=== PATIENT | female | born 1965 | race American Indian/Alaskan Native ===

== ENCOUNTER 2021-01-17 15:25 | Inpatient (IN) | payer MEDICAID ==
--- NOTE | 2021-01-17 16:41 | Event Note ---
ED Screening Note Date of service: 01/17/21 Time: 16:40 ED Screening Note: Patient complains of shortness of breath and cough Denies chest pain or leg pain/swelling No past medical history per patient Oxygen noted to be in the 70s on room air with the heart rate of 125 This initial assessment/diagnostic orders/clinical plan/treatment(s) is/are subject to change based on patients health status, clinical progression and re- assessment by fellow clinical providers in the ED. Further treatment and workup at subsequent clinical providers discretion. Patient/guardian urged not to elope from the ED as their condition may be serious if not clinically assessed and managed. Initial orders include: Labs EKG Chest x-ray Lactic acid
[2021-01-17 17:05] LABS: Basophils % (Auto) 0.2 % (0.0-1.8); Hematocrit 39.5 % (30.3-42.9); Hemoglobin 12.4 gm/dl (10.1-14.3); Lymphocytes # (Auto) 0.8 K/mm3 (1.2-5.4); Lymphocytes % (Auto) 9.4 % (13.4-35.0); Mean Corpuscular HGB Conc 31 % (30-34); Mean Corpuscular Volume 76 fl (79-97); Monocytes # (Auto) 0.4 K/mm3 (0.0-0.8); Platelet Count 224 K/mm3 (140-440); Red Blood Count 5.23 M/mm3 (3.65-5.03); Red Cell Distribution Width 14.7 % (13.2-15.2)
--- NOTE | 2021-01-17 17:05 | XRay Report ---
CHEST 2 VIEWS INDICATION / CLINICAL INFORMATION: hypoxia, cough. COMPARISON: None available. FINDINGS: SUPPORT DEVICES: None. HEART / MEDIASTINUM: No significant abnormality. LUNGS / PLEURA: Patchy airspace disease in both lower lungs No pneumothorax. ADDITIONAL FINDINGS: No significant additional findings. IMPRESSION: Patchy airspace disease in both lower lungs Signer Name: Oliverio Moody MD FACR Signed: 01/17/2021 5:00 PM Workstation Name: [id number]
[2021-01-17 17:19] LABS: Alanine Aminotransferase 51 units/L (7-56); Albumin 3.2 g/dL (3.9-5); Blood Urea Nitrogen 13 mg/dL (7-17); Calcium 8.6 mg/dL (8.4-10.2); Hemolysis Index 0
[2021-01-17 17:21] LABS: BUN/Creatinine Ratio 19
[2021-01-17 18:47] LABS: C-Reactive Protein 19.2 mg/dL (0.00-1.30)
[2021-01-17] MEDS ORDERED: AZITHROMYCIN/NS 500 MG/250 ML 500 MG/250 ML BAG IV ONE (22:49)
[2021-01-17] MEDS ORDERED: cefTRIAXone/NS 1 GM/50 ML 1 GM/50 ML BAG IV ONE (22:49)
--- NOTE | 2021-01-17 23:32 | Emergency Department Report ---
ED General Adult HPI - General Chief complaint: Altered Mental Status Stated complaint: HYPERGLYCEMIA Time Seen by Provider: 01/17/21 16:38 Source: patient, family Mode of arrival: Ambulatory Limitations: No Limitations - History of Present Illness Initial comments: Patient presents to the emergency department with a chief complaint of cough and not feeling well for the last couple of days. Patient states that her brother is positive for Covid. Patient complains of having a dry cough and a fever at home. She denies any chest pain. Patient states she has not felt like herself the last 3 days. -: Gradual Severity scale (0 -10): 0 Consistency: constant Improves with: none Worsens with: none Associated Symptoms: denies other symptoms Treatments Prior to Arrival: none - Related Data Allergies Allergy/AdvReac Type Severity Reaction Status Date / Time No Known Allergies Allergy Unverified 01/17/21 16:41 ED Review of Systems ROS: Stated complaint: HYPERGLYCEMIA Other details as noted in HPI Constitutional: denies: chills, fever Eyes: denies: eye pain, eye discharge, vision change ENT: denies: ear pain, throat pain Respiratory: cough, shortness of breath. denies: wheezing Cardiovascular: denies: chest pain, palpitations Endocrine: no symptoms reported Gastrointestinal: denies: abdominal pain, nausea, diarrhea Genitourinary: denies: urgency, dysuria, discharge Musculoskeletal: denies: back pain, joint swelling, arthralgia Skin: denies: rash, lesions Neurological: denies: headache, weakness, paresthesias Psychiatric: denies: anxiety, depression Hematological/Lymphatic: denies: easy bleeding, easy bruising ED Past Medical Hx - Past Medical History Previous Medical History?: Yes Hx Psychiatric Treatment: Yes (Schizophrenia) ED Physical Exam - General Limitations: No Limitations General appearance: alert, in no apparent distress - Head Head exam: Present: atraumatic, normocephalic - Eye Eye exam: Present: normal appearance - ENT ENT exam: Present: mucous membranes moist - Neck Neck exam: Present: normal inspection - Respiratory Respiratory exam: Present: normal lung sounds bilaterally, rales. Absent: respiratory distress - Cardiovascular Cardiovascular Exam: Present: normal rhythm, tachycardia. Absent: systolic murmur, diastolic murmur, rubs, gallop - GI/Abdominal GI/Abdominal exam: Present: soft, normal bowel sounds - Extremities Exam Extremities exam: Present: normal inspection - Back Exam Back exam: Present: normal inspection - Neurological Exam Neurological exam: Present: alert, oriented X3 - Psychiatric Psychiatric exam: Present: normal affect, normal mood - Skin Skin exam: Present: warm, dry, intact, normal color. Absent: rash ED Course Vital Signs 01/17/21 01/17/21 01/17/21 16:42 18:45 19:02 Temperature 100.6 F H Pulse Rate 122 H 122 H 122 H Respiratory 16 16 16 Rate Blood Pressure O2 Sat by Pulse 74 L 75 L 93 Oximetry 01/17/21 01/17/21 01/17/21 20:00 20:16 20:30 Temperature Pulse Rate 122 H 115 H 114 H Respiratory 26 H 36 H 30 H Rate Blood Pressure 143/80 151/85 O2 Sat by Pulse 76 L 93 93 Oximetry 01/17/21 01/17/21 01/17/21 20:32 20:46 21:00 Temperature Pulse Rate 114 H 111 H Respiratory 35 H 29 H Rate Blood Pressure 167/77 145/83 O2 Sat by Pulse 95 93 95 Oximetry 01/17/21 01/17/21 01/17/21 21:15 21:30 21:46 Temperature Pulse Rate 115 H 114 H 116 H Respiratory 36 H 32 H 30 H Rate Blood Pressure 158/87 149/84 148/82 O2 Sat by Pulse 93 93 Oximetry 01/17/21 01/17/21 01/17/21 22:00 22:16 22:30 Temperature Pulse Rate 122 H 115 H 115 H Respiratory 19 31 H 34 H Rate Blood Pressure 148/82 138/78 142/71 O2 Sat by Pulse 91 91 94 Oximetry 01/17/21 22:56 Temperature Pulse Rate Respiratory Rate Blood Pressure 130/71 O2 Sat by Pulse 94 Oximetry ED Medical Decision Making - Lab Data Result diagrams: 01/17/21 16:41 01/17/21 17:46 Lab Results 01/17/21 01/17/21 01/17/21 Range/Units 16:41 16:41 16:41 WBC 8.9 (4.5-11.0) K/mm3 RBC 5.23 H (3.65-5.03) M/mm3 Hgb 12.4 (10.1-14.3) gm/dl Hct 39.5 (30.3-42.9) % MCV 76 L (79-97) fl MCH 24 L (28-32) pg MCHC 31 (30-34) % RDW 14.7 (13.2-15.2) % Plt Count 224 (140-440) K/mm3 Lymph % (Auto) 9.4 L (13.4-35.0) % [place] % (Auto) 5.0 (0.0-7.3) % Eos % (Auto) 0.0 (0.0-4.3) % Baso % (Auto) 0.2 (0.0-1.8) % Lymph # (Auto) 0.8 L (1.2-5.4) K/mm3 [place] # (Auto) 0.4 (0.0-0.8) K/mm3 Eos # (Auto) 0.0 (0.0-0.4) K/mm3 Baso # (Auto) 0.0 (0.0-0.1) K/mm3 Seg Neutrophils % 85.4 H (40.0-70.0) % Seg Neutrophils # 7.6 (1.8-7.7) K/mm3 D-Dimer (0-234) ng/mlDDU Sodium 128 L (137-145) mmol/L Potassium 4.1 (3.6-5.0) mmol/L Chloride 90.8 L (98-107) mmol/L Carbon Dioxide 25 (22-30) mmol/L Anion Gap 16 mmol/L BUN 13 (7-17) mg/dL Creatinine 0.7 (0.6-1.2) mg/dL Estimated GFR > 60 ml/min BUN/Creatinine Ratio 19 % Glucose 372 H (65-100) mg/dL Lactic Acid 1.70 (0.7-2.0) mmol/L Calcium 8.6 (8.4-10.2) mg/dL Ferritin (10.0-200.0) ng/mL Total Bilirubin 0.30 (0.1-1.2) mg/dL AST 98 H (5-40) units/L ALT 51 (7-56) units/L Alkaline Phosphatase 82 (35-129) units/L Lactate Dehydrogenase (91-180) units/L Troponin T < 0.010 (0.00-0.029) ng/mL C-Reactive Protein (0.00-1.30) mg/dL NT-Pro-B Natriuret Pep 40.88 (0-900) pg/mL Total Protein 7.9 (6.3-8.2) g/dL Albumin 3.2 L (3.9-5) g/dL Albumin/Globulin Ratio 0.7 % 01/17/21 01/17/21 01/17/21 Range/Units 17:46 17:46 17:46 WBC (4.5-11.0) K/mm3 RBC (3.65-5.03) M/mm3 Hgb (10.1-14.3) gm/dl Hct (30.3-42.9) % MCV (79-97) fl MCH (28-32) pg MCHC (30-34) % RDW (13.2-15.2) % Plt Count (140-440) K/mm3 Lymph % (Auto) (13.4-35.0) % [place] % (Auto) (0.0-7.3) % Eos % (Auto) (0.0-4.3) % Baso % (Auto) (0.0-1.8) % Lymph # (Auto) (1.2-5.4) K/mm3 [place] # (Auto) (0.0-0.8) K/mm3 Eos # (Auto) (0.0-0.4) K/mm3 Baso # (Auto) (0.0-0.1) K/mm3 Seg Neutrophils % (40.0-70.0) % Seg Neutrophils # (1.8-7.7) K/mm3 D-Dimer 1058.54 H (0-234) ng/mlDDU Sodium (137-145) mmol/L Potassium (3.6-5.0) mmol/L Chloride (98-107) mmol/L Carbon Dioxide (22-30) mmol/L Anion Gap mmol/L BUN (7-17) mg/dL Creatinine (0.6-1.2) mg/dL Estimated GFR ml/min BUN/Creatinine Ratio % Glucose 369 H (65-100) mg/dL Lactic Acid (0.7-2.0) mmol/L Calcium (8.4-10.2) mg/dL Ferritin 668.4 H (10.0-200.0) ng/mL Total Bilirubin (0.1-1.2) mg/dL AST (5-40) units/L ALT (7-56) units/L Alkaline Phosphatase (35-129) units/L Lactate Dehydrogenase 519 H (91-180) units/L Troponin T (0.00-0.029) ng/mL C-Reactive Protein 19.20 H (0.00-1.30) mg/dL NT-Pro-B Natriuret Pep (0-900) pg/mL Total Protein (6.3-8.2) g/dL Albumin (3.9-5) g/dL Albumin/Globulin Ratio % - EKG Data -: EKG Interpreted by Me EKG shows normal: sinus rhythm Rate: tachycardia - Radiology Data Radiology results: report reviewed - Medical Decision Making Patient was switched from nonrebreather mask to high flow O2 IV antibiotics given CTA of the chest with order for evaluation of pulmonary emboli Patient was taken to CT suite and upon arrival she refused to have the CTA of the chest done Critical Care Time: Yes Critical care time in (mins) excluding proc time.: 35 Critical care attestation.: If time is entered above; I have spent that time in minutes in the direct care of this critically ill patient, excluding procedure time. ED Disposition Clinical Impression: Pneumonia, Respiratory failure, Hypoxia Disposition: 09 OP ADMIT IP TO THIS HOSP Is pt being admited?: Yes Does the pt Need Aspirin: Yes Condition: Fair Instructions: Bacterial Pneumonia (ED) Referrals: FEDERICO VILLALTA,BRANDON [Other] - 3-5 Days
[2021-01-18] MEDS ORDERED: ONDANSETRON 4 MG/2 ML INJ IV PRN (00:36)
--- NOTE | 2021-01-18 00:44 | History and Physical Report ---
History of Present Illness Date of examination: 01/18/21 Date of admission: 01/18/2021 Chief complaint: Altered mental status Hyperglycemia Fever cough History of present illness: 55 years old female was brought to the emergency room because of shortness of breath, cough and not feeling well for the last couple of days. Patient states that her brother is positive for Covid. Patient complains of having a dry cough and a fever at home. She denies any chest pain. Patient states she has not felt like herself the last 3 days. In the emergency room patient chest x-ray shows pneumonia Past History Past Medical History: other (Schizophrenia) Medications and Allergies Allergies Allergy/AdvReac Type Severity Reaction Status Date / Time No Known Allergies Allergy Unverified 01/17/21 16:41 Review of Systems Constitutional: fever Cardiovascular: shortness of breath Respiratory: cough, shortness of breath Exam - Constitutional Vitals: Temp Pulse Resp BP Pulse Ox 100.6 F H 115 H 34 H 130/71 94 01/17/21 16:42 01/17/21 22:30 01/17/21 22:30 01/17/21 22:56 01/17/21 22:56 General appearance: Present: mild distress, well-nourished - EENT Eyes: Present: PERRL ENT: hearing intact, clear oral mucosa - Neck Neck: Present: supple, normal ROM - Respiratory Respiratory effort: normal Respiratory: bilateral: diminished - Cardiovascular Heart Sounds: Present: S1 & S2. Absent: rub, click - Extremities Extremities: pulses symmetrical, No edema Peripheral Pulses: within normal limits - Abdominal General gastrointestinal: Present: soft, non-tender, non-distended, normal bowel sounds Female genitourinary: Present: normal - Integumentary Integumentary: Present: clear, warm, dry - Musculoskeletal Musculoskeletal: gait normal, strength equal bilaterally - Psychiatric Psychiatric: appropriate mood/affect, intact judgment & insight - Neurologic Neurologic: CNII-XII intact, moves all extremities HEART Score - HEART Score Troponin: Troponin T < 0.010 ng/mL (0.00-0.029) 01/17/21 16:41 Results - Labs CBC & Chem 7: 01/17/21 16:41 01/17/21 17:46 Labs: Laboratory Last Values WBC 8.9 K/mm3 (4.5-11.0) 01/17/21 16:41 RBC 5.23 M/mm3 (3.65-5.03) H 01/17/21 16:41 Hgb 12.4 gm/dl (10.1-14.3) 01/17/21 16:41 Hct 39.5 % (30.3-42.9) 01/17/21 16:41 MCV 76 fl (79-97) L 01/17/21 16:41 MCH 24 pg (28-32) L 01/17/21 16:41 MCHC 31 % (30-34) 01/17/21 16:41 RDW 14.7 % (13.2-15.2) 01/17/21 16:41 Plt Count 224 K/mm3 (140-440) 01/17/21 16:41 Lymph % (Auto) 9.4 % (13.4-35.0) L 01/17/21 16:41 [place] % (Auto) 5.0 % (0.0-7.3) 01/17/21 16:41 Eos % (Auto) 0.0 % (0.0-4.3) 01/17/21 16:41 Baso % (Auto) 0.2 % (0.0-1.8) 01/17/21 16:41 Lymph # (Auto) 0.8 K/mm3 (1.2-5.4) L 01/17/21 16:41 [place] # (Auto) 0.4 K/mm3 (0.0-0.8) 01/17/21 16:41 Eos # (Auto) 0.0 K/mm3 (0.0-0.4) 01/17/21 16:41 Baso # (Auto) 0.0 K/mm3 (0.0-0.1) 01/17/21 16:41 Seg Neutrophils % 85.4 % (40.0-70.0) H 01/17/21 16:41 Seg Neutrophils # 7.6 K/mm3 (1.8-7.7) 01/17/21 16:41 D-Dimer 1058.54 ng/mlDDU (0-234) H 01/17/21 17:46 Sodium 128 mmol/L (137-145) L 01/17/21 16:41 Potassium 4.1 mmol/L (3.6-5.0) 01/17/21 16:41 Chloride 90.8 mmol/L (98-107) L 01/17/21 16:41 Carbon Dioxide 25 mmol/L (22-30) 01/17/21 16:41 Anion Gap 16 mmol/L 01/17/21 16:41 BUN 13 mg/dL (7-17) 01/17/21 16:41 Creatinine 0.7 mg/dL (0.6-1.2) 01/17/21 16:41 Estimated GFR > 60 ml/min 01/17/21 16:41 BUN/Creatinine Ratio 19 % 01/17/21 16:41 Glucose 369 mg/dL (65-100) H 01/17/21 17:46 Lactic Acid 1.70 mmol/L (0.7-2.0) 01/17/21 16:41 Calcium 8.6 mg/dL (8.4-10.2) 01/17/21 16:41 Ferritin 668.4 ng/mL (10.0-200.0) H 01/17/21 17:46 Total Bilirubin 0.30 mg/dL (0.1-1.2) 01/17/21 16:41 AST 98 units/L (5-40) H 01/17/21 16:41 ALT 51 units/L (7-56) 01/17/21 16:41 Alkaline Phosphatase 82 units/L (35-129) 01/17/21 16:41 Lactate Dehydrogenase 519 units/L (91-180) H 01/17/21 17:46 Troponin T < 0.010 ng/mL (0.00-0.029) 01/17/21 16:41 C-Reactive Protein 19.20 mg/dL (0.00-1.30) H 01/17/21 17:46 NT-Pro-B Natriuret Pep 40.88 pg/mL (0-900) 01/17/21 16:41 Total Protein 7.9 g/dL (6.3-8.2) 01/17/21 16:41 Albumin 3.2 g/dL (3.9-5) L 01/17/21 16:41 Albumin/Globulin Ratio 0.7 % 01/17/21 16:41 Microbiology: Microbiology 01/17/21 16:41 Peripheral/Venous Blood Culture - Preliminary Culture in Progress 01/17/21 16:47 Peripheral/Venous Blood Culture - Preliminary Culture in Progress - Imaging and Cardiology Chest x-ray: image reviewed Assessment and Plan VTE prophylaxis?: Chemical Plan of care discussed with patient/family: Yes - Patient Problems (1) Pneumonia Current Visit: Yes Status: Acute Plan to address problem: Admit the patient to the medical telemetry. Oxygen per nasal cannula 3 L/min. DuoNeb by nebulizer every 4 hours as needed. Rocephin 2 g IV daily and Zithromax 500 IV daily. Decadron 6 mg IV daily. We do the blood culture and sputum culture. We also consult infectious disease for evaluation. Recheck CBC BMP in the morning (2) COVID-19 Current Visit: Yes Status: Acute Plan to address problem: Rocephin 2 g IV daily and Zithromax 500 IV daily. Decadron 6 mg IV daily. Follow the Covid PCR and Covid inflammatory marker. We also consult infectious disease for evaluation (3) Hypoxia Current Visit: Yes Status: Acute Plan to address problem: Oxygen per nasal cannula 3 L/min. DuoNeb by nebulizer every 4 hours as needed. Decadron 6 mg IV daily. We do the blood cultures sputum culture. (4) Respiratory failure Current Visit: Yes Status: Acute Plan to address problem: Oxygen per nasal cannula 3 L/min. DuoNeb by nebulizer every 4 hours as needed. Rocephin 2 g IV daily and Zithromax 500 IV daily. Decadron 6 mg IV daily. We do the blood culture and sputum culture. Consult pulmonary if needed in the morning (5) Schizophrenia Current Visit: Yes Status: Acute Plan to address problem: Is stable. Outpatient follow-up with psych (6) DVT prophylaxis Current Visit: Yes Status: Acute Plan to address problem: Heparin 5000 units subcu every 8 hours. Pepcid 20 mg p.o. twice daily. Patient is a full code
[2021-01-18] MEDS: IPRATROPIUM/ALBUTEROL SULFATE 3 ML AMPUL.NEB IH SCH ×4 (03:40→20:26)
--- NOTE | 2021-01-18 08:58 | Progress Note ---
Assessment and Plan Assessment and plan: (1) Pneumonia Current Visit: Yes Status: Acute Plan to address problem: Admit the patient to the medical telemetry. Oxygen per nasal cannula 3 L/min. DuoNeb by nebulizer every 4 hours as needed. Rocephin 2 g IV daily and Zithromax 500 IV daily. Decadron 6 mg IV daily. We do the blood culture and sputum culture. We also consult infectious disease for evaluation. Recheck CBC BMP in the morning (2) COVID-19 Current Visit: Yes Status: Acute Plan to address problem: Rocephin 2 g IV daily and Zithromax 500 IV daily. Decadron 6 mg IV daily. Follow the Covid PCR and Covid inflammatory marker. We also consult infectious disease for evaluation (3) Hypoxia Current Visit: Yes Status: Acute Plan to address problem: Oxygen per nasal cannula 3 L/min. DuoNeb by nebulizer every 4 hours as needed. Decadron 6 mg IV daily. We do the blood cultures sputum culture. (4) Respiratory failure Current Visit: Yes Status: Acute Plan to address problem: Oxygen per nasal cannula 3 L/min. DuoNeb by nebulizer every 4 hours as needed. Rocephin 2 g IV daily and Zithromax 500 IV daily. Decadron 6 mg IV daily. We do the blood culture and sputum culture. Consult pulmonary if needed in the morning (5) Schizophrenia Current Visit: Yes Status: Acute Plan to address problem: Is stable. Outpatient follow-up with psych (6) DVT prophylaxis Current Visit: Yes Status: Acute Plan to address problem: Heparin 5000 units subcu every 8 hours. Pepcid 20 mg p.o. twice daily. Patient is a full code 01/18/2021 -Acute hypoxic respiratory failure requiring high flow oxygen 40 L. Nebulizer treatment -Patient is admitted for suspected Covid pneumonia. Patient is on dexamethasone, COVID-19 test is pending. Patient is on empiric antibiotics. -ID consulted, will consult pulmonary. -Patient has hyponatremia yesterday and I will repeat and if it is low I will manage accordingly -Patient has elevated D-dimer and CTA chest and bilateral Doppler ultrasound of the lower extremities pending History Interval history: Patient was seen and evaluated this morning Patient was on high flow oxygen 40 L/min Patient was in respiratory distress Hospitalist Physical - Physical exam Narrative exam: Patient is on high flow 40 L of oxygen The patient appeared well nourished and normally developed. Vital signs as documented. Head exam is unremarkable. No scleral icterus . Neck is without jugular venous distension, thyromegaly, or carotid bruits. Lungs decreased air entry on both lungs Cardiac exam reveals regular rate and Rhythm. Abdominal exam reveals normal bowel sounds, nontender, no organomegaly. Extremities are nonedematous and both femoral and pedal pulses are normal. [employer]: Alert and oriented 3. No focal weakness. - Constitutional Vitals: Temp Pulse Resp BP Pulse Ox 100.6 F H 110 H 28 H 147/65 88 01/17/21 16:42 01/18/21 08:04 01/18/21 08:04 01/18/21 08:00 01/18/21 08:00 General appearance: Present: mild distress, well-nourished HEART Score - HEART Score Troponin: Troponin T < 0.010 ng/mL (0.00-0.029) 01/17/21 16:41 Results - Labs CBC & Chem 7: 01/17/21 16:41 01/18/21 09:01 Labs: Laboratory Last Values WBC 8.9 K/mm3 (4.5-11.0) 01/17/21 16:41 RBC 5.23 M/mm3 (3.65-5.03) H 01/17/21 16:41 Hgb 12.4 gm/dl (10.1-14.3) 01/17/21 16:41 Hct 39.5 % (30.3-42.9) 01/17/21 16:41 MCV 76 fl (79-97) L 01/17/21 16:41 MCH 24 pg (28-32) L 01/17/21 16:41 MCHC 31 % (30-34) 01/17/21 16:41 RDW 14.7 % (13.2-15.2) 01/17/21 16:41 Plt Count 224 K/mm3 (140-440) 01/17/21 16:41 Lymph % (Auto) 9.4 % (13.4-35.0) L 01/17/21 16:41 [place] % (Auto) 5.0 % (0.0-7.3) 01/17/21 16:41 Eos % (Auto) 0.0 % (0.0-4.3) 01/17/21 16:41 Baso % (Auto) 0.2 % (0.0-1.8) 01/17/21 16:41 Lymph # (Auto) 0.8 K/mm3 (1.2-5.4) L 01/17/21 16:41 [place] # (Auto) 0.4 K/mm3 (0.0-0.8) 01/17/21 16:41 Eos # (Auto) 0.0 K/mm3 (0.0-0.4) 01/17/21 16:41 Baso # (Auto) 0.0 K/mm3 (0.0-0.1) 01/17/21 16:41 Seg Neutrophils % 85.4 % (40.0-70.0) H 01/17/21 16:41 Seg Neutrophils # 7.6 K/mm3 (1.8-7.7) 01/17/21 16:41 D-Dimer 1058.54 ng/mlDDU (0-234) H 01/17/21 17:46 Sodium 128 mmol/L (137-145) L 01/17/21 16:41 Potassium 4.1 mmol/L (3.6-5.0) 01/17/21 16:41 Chloride 90.8 mmol/L (98-107) L 01/17/21 16:41 Carbon Dioxide 25 mmol/L (22-30) 01/17/21 16:41 Anion Gap 16 mmol/L 01/17/21 16:41 BUN 13 mg/dL (7-17) 01/17/21 16:41 Creatinine 0.7 mg/dL (0.6-1.2) 01/17/21 16:41 Estimated GFR > 60 ml/min 01/17/21 16:41 BUN/Creatinine Ratio 19 % 01/17/21 16:41 Glucose 369 mg/dL (65-100) H 01/17/21 17:46 Lactic Acid 1.70 mmol/L (0.7-2.0) 01/17/21 16:41 Calcium 8.6 mg/dL (8.4-10.2) 01/17/21 16:41 Ferritin 668.4 ng/mL (10.0-200.0) H 01/17/21 17:46 Total Bilirubin 0.30 mg/dL (0.1-1.2) 01/17/21 16:41 AST 98 units/L (5-40) H 01/17/21 16:41 ALT 51 units/L (7-56) 01/17/21 16:41 Alkaline Phosphatase 82 units/L (35-129) 01/17/21 16:41 Lactate Dehydrogenase 519 units/L (91-180) H 01/17/21 17:46 Troponin T < 0.010 ng/mL (0.00-0.029) 01/17/21 16:41 C-Reactive Protein 19.20 mg/dL (0.00-1.30) H 01/17/21 17:46 NT-Pro-B Natriuret Pep 40.88 pg/mL (0-900) 01/17/21 16:41 Total Protein 7.9 g/dL (6.3-8.2) 01/17/21 16:41 Albumin 3.2 g/dL (3.9-5) L 01/17/21 16:41 Albumin/Globulin Ratio 0.7 % 01/17/21 16:41 Microbiology: Microbiology 01/17/21 16:41 Peripheral/Venous Blood Culture - Preliminary Culture in Progress 01/17/21 16:47 Peripheral/Venous Blood Culture - Preliminary Culture in Progress Active Medications - Current Medications Current Medications: Generic Name Dose Route Start Last Admin Trade Name Freq PRN Reason Stop Dose Admin Acetaminophen 650 mg 01/18/21 00:36 Acetaminophen 325 Mg Tab PO Q4H PRN Pain MILD(1-3)/Fever >100.5/PAN Albuterol/Ipratropium 1 ampul 01/18/21 02:00 01/18/21 07:52 Ipratropium/Albuterol Sulfate 3 Ml Ampul.Neb IH 1 ampul Q6HRT PJ Administration Dexamethasone 6 mg 01/18/21 10:00 Dexamethasone 4 Mg/Ml Vial IV 01/27/21 10:01 DAILY PJ Famotidine 20 mg 01/18/21 10:00 Famotidine 20 Mg Tab PO BID PJ Heparin Sodium (Porcine) 5,000 unit 01/18/21 06:00 Heparin 5,000 Unit/1 Ml Vial SUB-Q Q8HR PJ Hydralazine HCl 10 mg 01/18/21 00:38 Hydralazine 20 Mg/1 Ml Inj IV Q6H PRN htn Ceftriaxone Sodium 2 gm in 100 mls @ 200 mls/hr 01/18/21 22:00 Rocephin/Ns 2 Gm/100 Ml IV Q24H [facility] Protocol Azithromycin 500 mg in 250 mls @ 250 mls/hr 01/18/21 22:00 Zithromax/Ns IV Q24H [facility] Protocol Ondansetron HCl 4 mg 01/18/21 00:36 Ondansetron 4 Mg/2 Ml Inj IV Q8H PRN Nausea And Vomiting Sodium Chloride 10 ml 01/18/21 10:00 Sodium Chloride 0.9% 10 Ml Flush Syringe IV BID PJ Sodium Chloride 10 ml 01/18/21 00:36 Sodium Chloride 0.9% 10 Ml Flush Syringe IV PRN PRN LINE FLUSH
[2021-01-18 10:13] LABS: BUN/Creatinine Ratio 20; Blood Urea Nitrogen 18 mg/dL (7-17); Calcium 7.8 mg/dL (8.4-10.2); Hemolysis Index 1
--- NOTE | 2021-01-18 10:38 | Cat Scan Report ---
CTA CHEST WITH CONTRAST INDICATION / CLINICAL INFORMATION: Hypoxia. Cough.. TECHNIQUE: Axial CT images were obtained through the chest after injection of IV contrast. 3 plane WI P and/or 3D reconstructions were produced. All CT scans at this location are performed using CT dose reduction for ALARA by means of automated exposure control. COMPARISON: No prior chest CT. Chest radiograph dated 01/17/21 FINDINGS: PULMONARY ARTERIES: No pulmonary emboli. THORACIC AORTA: No significant abnormality. HEART: Upper normal size. CORONARY ARTERY CALCIFICATION: None. MEDIASTINUM / MELISSA: No significant abnormality. PLEURA: No pleural effusion. No pneumothorax. LUNGS: Extensive bilateral airspace opacities some of which have patchy groundglass density. ADDITIONAL FINDINGS: None. UPPER ABDOMEN: Liver is enlarged and hypodense characteristic of fatty infiltration. SKELETAL STRUCTURES: Benign vertebral body hemangioma at T2. IMPRESSION: 1. No CT evidence for pulmonary embolism. 2. Extensive bilateral pneumonia. Atypical/viral pneumonia should be considered. 3. Hepatomegaly with hepatic steatosis. Signer Name: Jayy Rivera MD Signed: 01/18/2021 10:33 AM Workstation Name: [id number]
[2021-01-18] MEDS: dexAMETHasone 4 MG/ML VIAL IV SCH (11:36)
[2021-01-18] MEDS: FAMOTIDINE 20 MG TAB PO SCH ×2 (11:36→21:28)
[2021-01-18] MEDS: HEPARIN 5,000 UNIT/1 ML VIAL SUB-Q SCH ×3 (11:37→21:28)
[2021-01-18] MEDS ORDERED: FUROSEMIDE 20 MG/2 ML INJ IV NR (12:35)
--- NOTE | 2021-01-18 12:39 | Consultation ---
History of Present Illness Consult date: 01/18/21 Requesting physician: DARIUSZ OCAMPO Reason for consult: hypoxemia, abnormal CXR/CT History of present illness: 55 y/o obese female admitted with acute respiratory failure, concern for COVID Past History Past Medical History: other (Schizophrenia) Medications and Allergies Allergies Allergy/AdvReac Type Severity Reaction Status Date / Time No Known Allergies Allergy Verified 01/18/21 00:44 Active Meds: Active Medications Acetaminophen (Acetaminophen 325 Mg Tab) 650 mg PO Q4H PRN PRN Reason: Pain MILD(1-3)/Fever >100.5/PAN Albuterol/Ipratropium (Ipratropium/Albuterol Sulfate 3 Ml Ampul.Neb) 1 ampul IH Q6HRT [facility] Last Admin: 01/18/21 07:52 Dose: 1 ampul Documented by: Dexamethasone (Dexamethasone 4 Mg/Ml Vial) 6 mg IV DAILY [facility] Stop: 01/27/21 10:01 Last Admin: 01/18/21 11:36 Dose: 6 mg Documented by: Famotidine (Famotidine 20 Mg Tab) 20 mg PO BID [facility] Last Admin: 01/18/21 11:36 Dose: 20 mg Documented by: Furosemide (Furosemide 20 Mg/2 Ml Inj) 20 mg IV ONCE ONE Stop: 01/18/21 12:36 Heparin Sodium (Porcine) (Heparin 5,000 Unit/1 Ml Vial) 5,000 unit SUB-Q Q8HR [facility] Last Admin: 01/18/21 11:37 Dose: 5,000 unit Documented by: Hydralazine HCl (Hydralazine 20 Mg/1 Ml Inj) 10 mg IV Q6H PRN PRN Reason: htn Ceftriaxone Sodium (Rocephin/Ns 2 Gm/100 Ml) 2 gm in 100 mls @ 200 mls/hr IV Q24H PJ; Protocol Azithromycin (Zithromax/Ns) 500 mg in 250 mls @ 250 mls/hr IV Q24H PJ; Protocol Ondansetron HCl (Ondansetron 4 Mg/2 Ml Inj) 4 mg IV Q8H PRN PRN Reason: Nausea And Vomiting Sodium Chloride (Sodium Chloride 0.9% 10 Ml Flush Syringe) 10 ml IV BID PJ Sodium Chloride (Sodium Chloride 0.9% 10 Ml Flush Syringe) 10 ml IV PRN PRN PRN Reason: LINE FLUSH Review of Systems All systems: negative Physical Examination Vital signs: Vital Signs Temp Pulse Resp Pulse Ox 100.6 F H 122 H 16 74 L 01/17/21 16:42 01/17/21 16:42 01/17/21 16:42 01/17/21 16:42 General appearance: alert Eyes: non-icteric Neck: other (large in circumference) Effort: mildly labored Ascultation: Bilateral: clear Results - Laboratory Findings CBC and BMP: 01/19/21 05:11 01/19/21 05:11 PT/INR, D-dimer D-Dimer 1058.54 ng/mlDDU (0-234) H 01/17/21 17:46 Abnormal lab findings: Abnormal Labs 01/17/21 01/17/21 01/17/21 16:41 16:41 17:46 RBC 5.23 H MCV 76 L MCH 24 L Lymph % (Auto) 9.4 L Lymph # (Auto) 0.8 L Seg Neutrophils % 85.4 H D-Dimer 1058.54 H Sodium 128 L Chloride 90.8 L BUN Glucose 372 H Calcium Ferritin AST 98 H Lactate Dehydrogenase C-Reactive Protein Albumin 3.2 L 01/17/21 01/17/21 01/18/21 17:46 17:46 09:01 RBC MCV MCH Lymph % (Auto) Lymph # (Auto) Seg Neutrophils % D-Dimer Sodium 132 L Chloride 93.6 L BUN 18 H Glucose 369 H 367 H Calcium 7.8 L Ferritin 668.4 H AST Lactate Dehydrogenase 519 H C-Reactive Protein 19.20 H Albumin - Diagnostic Findings Chest x-ray: image reviewed CT scan - chest: image reviewed Assessment and Plan 55 y/o female admitted with acute respiratory failure secondary to pneumonia, concern for COVID 1. Prone 2. Lasix 3. Agree with steroids 4. Follow up COVID testing Guarded prognosis
[2021-01-18] MEDS ORDERED: HYDROmorphone 1 MG/1 ML INJ IV PRN (14:13)
[2021-01-18] MEDS: ACETAMINOPHEN 325 MG TAB PO PRN (17:32)
[2021-01-18 17:40] LABS: ABG Base Excess 1.9 mmol/L (-2.0-3.0); ABG HCO3 25.5 mmol/L (20.0-26.0); ABG Methemoglobin 0.5 % (0.0-1.5); ABG Oxygen Saturation 89.4 % (95.0-99.0); ABG PCO2 36.6 mm Hg; ABG PH 7.461 pH Units (7.350-7.450); ABG PO2 53.1 mm Hg (80.0-90.0)
--- NOTE | 2021-01-18 18:49 | Vascular Lab Report ---
VL venous duplex LE BILAT INDICATION / CLINICAL INFORMATION: Shortness of breath, elevated D-dimer. TECHNIQUE: Duplex doppler imaging was performed using venous compression and other maneuvers. COMPARISON: None available. FINDINGS: No venous thrombosis is identified within the visualized extremity vasculature. ADDITIONAL FINDINGS: None. IMPRESSION: 1. No sonographic evidence for DVT in the visualized bilateral lower extremity vasculature. Signer Name: Mike Weathers MD Signed: 01/18/2021 6:45 PM Workstation Name: [id number]
--- NOTE | 2021-01-18 19:20 | Consultation ---
History of Present Illness - Reason for Consult Consult date: 01/18/21 - History of Present Illness 49-year-old female past medical history schizophrenia brought to the hospital complaining of shortness of breath, cough began couple days prior to admission. She also notes that her brother tested positive for Covid. She complains of dry cough and fever. She notes began approximate 3 days prior to admission. Febrile to 102 with a white count of 8.9. Covid positive. Normal renal functio n, mildly elevated procalcitonin. Currently on ceftriaxone and azithromycin. Blood cultures no growth so far. Requiring high flow nasal cannula. Inflammatory markers markedly elevated. Imaging personally reviewed: Chest CTA: No pulmonary embolism. Extensive bilateral pneumonia. Hepatomegaly. Review of systems: Deferred to reduce to the risk of transmission of COVID-19 Past History Past Medical History: other (Schizophrenia) Medications and Allergies Allergies Allergy/AdvReac Type Severity Reaction Status Date / Time No Known Allergies Allergy Verified 01/18/21 00:44 Active Meds: Active Medications Acetaminophen (Acetaminophen 325 Mg Tab) 650 mg PO Q4H PRN PRN Reason: Pain MILD(1-3)/Fever >100.5/PAN Last Admin: 01/18/21 17:32 Dose: 650 mg Documented by: Albuterol/Ipratropium (Ipratropium/Albuterol Sulfate 3 Ml Ampul.Neb) 1 ampul IH Q6HRT [facility] Last Admin: 01/18/21 14:18 Dose: 1 ampul Documented by: Dexamethasone (Dexamethasone 4 Mg/Ml Vial) 6 mg IV DAILY [facility] Stop: 01/27/21 10:01 Last Admin: 01/18/21 11:36 Dose: 6 mg Documented by: Famotidine (Famotidine 20 Mg Tab) 20 mg PO BID [facility] Last Admin: 01/18/21 11:36 Dose: 20 mg Documented by: Heparin Sodium (Porcine) (Heparin 5,000 Unit/1 Ml Vial) 5,000 unit SUB-Q Q8HR [facility] Last Admin: 01/18/21 15:16 Dose: 5,000 unit Documented by: Hydralazine HCl (Hydralazine 20 Mg/1 Ml Inj) 10 mg IV Q6H PRN PRN Reason: htn Hydromorphone HCl (Hydromorphone 1 Mg/1 Ml Inj) 0.5 mg IV ONCE PRN PRN Reason: Pain , Severe (7-10) Ceftriaxone Sodium (Rocephin/Ns 2 Gm/100 Ml) 2 gm in 100 mls @ 200 mls/hr IV Q24H PJ; Protocol Azithromycin (Zithromax/Ns) 500 mg in 250 mls @ 250 mls/hr IV Q24H PJ; Protoc ol Ondansetron HCl (Ondansetron 4 Mg/2 Ml Inj) 4 mg IV Q8H PRN PRN Reason: Nausea And Vomiting Sodium Chloride (Sodium Chloride 0.9% 10 Ml Flush Syringe) 10 ml IV BID [facility] Last Admin: 01/18/21 10:03 Dose: 10 ml Documented by: Sodium Chloride (Sodium Chloride 0.9% 10 Ml Flush Syringe) 10 ml IV PRN PRN PRN Reason: LINE FLUSH Physical Examination - Physical Exam Narrative exam: Physical exam deferred to reduce risk of transmission of COVID-19. Please refer to primary team's note. - Constitutional Vitals: Vital Signs Temp Pulse Resp BP Pulse Ox 102.0 F H 100 H 21 145/74 88 01/18/21 16:06 01/18/21 17:29 01/18/21 16:06 01/18/21 16:06 01/18/21 16:06 Temperature -Last 24 Hours Temperature 102.0 F Temperature 100.9 F Results - Labs CBC & Chem 7: 01/17/21 16:41 01/18/21 09:01 Labs: Abnormal lab results 01/17/21 01/18/21 01/18/21 Range/Units 09:25 09:01 17:18 ABG pH 7.461 H (7.350-7.450) pH Units ABG pO2 53.1 L (80.0-90.0) mm Hg ABG O2 Saturation 89.4 L (95.0-99.0) % Oxyhemoglobin 88.0 L (95.0-99.0) % Sodium 132 L (137-145) mmol/L Chloride 93.6 L (98-107) mmol/L BUN 18 H (7-17) mg/dL Glucose 367 H (65-100) mg/dL Calcium 7.8 L (8.4-10.2) mg/dL Coronavirus (PCR) Positive A (Negative) Assessment and Plan Cultures: Covid PCR: Positive A/P: 55-year-old female past medical history schizophrenia admitted to hospital with COVID-19. #Severe COVID-19 pneumonia: Patient presented with a week of symptoms, chest x- ray with diffuse bilateral infiltrates. Inflammatory markers elevated. No evidence of pulmonary embolism on CT #Acute hypoxemic respiratory failure: Likely secondary to COVID-19 infection. Currently on HFNC #Obesity Recs: -Dexamethasone 6 mg IV/PO daily for 10 days -Remdesivir 200 mg IV q day x 1 followed by 100 mg IV q day x 4 days -Ordered Actemra 8 mg/mg once on 6 01/18/2021 -Obtain q48-72h inflammatory markers - ferritin, Ddimer, CRP, LDH -Continue ceftriaxone 2 gm IV qday and azithromycin 500 mg PO qday, complete 5 days due to elevated procalcitonin. -Anticoagulation per hospital protocol -Proning as able Thank you for the consult, we will continue to follow. Dr. Torres taking over Wednesday Nelson Angulo MD [facility] O: [phone] F: [phone]
[2021-01-18] MEDS: SODIUM CHLORIDE 0.9% 50 ML IVPB IV SCH (20:53)
[2021-01-18] MEDS ORDERED: REMDESIVIR 200 MG in SODIUM CHLORIDE 0.9% 250ML 250 ML IV ONE (21:00)
[2021-01-18] MEDS ORDERED: REMDESIVIR 100 MG VIAL IV ONE (21:00)
[2021-01-18] MEDS: AZITHROMYCIN/NS 500 MG/250 ML 500 MG/250 ML BAG IV SCH (21:28)
[2021-01-18] MEDS: cefTRIAXone/NS 2 GM/100 ML 2 GM/100 ML BAG IV SCH (21:32)
[2021-01-19] MEDS: IPRATROPIUM/ALBUTEROL SULFATE 3 ML AMPUL.NEB IH SCH ×4 (03:47→19:38)
[2021-01-19 05:42] LABS: Mean Corpuscular HGB Conc 31 % (30-34); Mean Corpuscular Volume 74 fl (79-97); Platelet Count 235 K/mm3 (140-440); Red Blood Count 4.94 M/mm3 (3.65-5.03); Red Cell Distribution Width 15.2 % (13.2-15.2)
[2021-01-19 06:04] LABS: Hematocrit 36.6 % (30.3-42.9); Hemoglobin 11.2 gm/dl (10.1-14.3)
[2021-01-19 06:22] LABS: Alanine Aminotransferase 47 units/L (7-56); Blood Urea Nitrogen 14 mg/dL (7-17); Calcium 8.3 mg/dL (8.4-10.2); Hemolysis Index 6
[2021-01-19] MEDS: HEPARIN 5,000 UNIT/1 ML VIAL SUB-Q SCH ×3 (06:24→21:44)
[2021-01-19 06:27] LABS: BUN/Creatinine Ratio 20
--- NOTE | 2021-01-19 08:30 | Progress Note ---
Assessment and Plan 55 y/o female admitted with acute respiratory failure secondary to pneumonia, positive for Sars CoV2 01/19/21: Continue decadron, suggest increase given patient body habitus to BID. ID consult for Remdesivir therapy and to see if she is a candidate for Actemra. Prone as tolerated during the day and sleep prone at night. Will give lasix again today. Guarded prognosis. 1. Prone 2. Lasix 3. Agree with steroids 4. Follow up COVID testing Guarded prognosis Subjective Date of service: 01/19/21 Interval history: COVID test positive as suspected. Wore bipap last night, remains on HFNC. Objective Vital Signs - 12hr 01/18/21 01/18/21 01/18/21 20:26 20:40 23:24 Temperature 98.7 F Pulse Rate 101 H 105 H Respiratory 29 H 22 Rate Blood Pressure 147/63 O2 Sat by Pulse 85 92 89 Oximetry 01/18/21 01/19/21 23:53 06:09 Temperature 99.6 F Pulse Rate 112 H 105 H Respiratory 38 H 20 Rate Blood Pressure 129/57 O2 Sat by Pulse 90 90 Oximetry Constitutional: alert Eyes: non-icteric Neck: other (large in circumference) Effort: mildly labored Ascultation: Bilateral: clear CBC and BMP: 01/19/21 05:11 01/19/21 05:11 ABG, PT/INR, D-dimer: ABG ABG pH 7.461 pH Units (7.350-7.450) H 01/18/21 17:18 ABG pCO2 36.6 mm Hg 01/18/21 17:18 ABG pO2 53.1 mm Hg (80.0-90.0) L 01/18/21 17:18 ABG O2 Saturation 89.4 % (95.0-99.0) L 01/18/21 17:18 PT/INR, D-dimer D-Dimer 1058.54 ng/mlDDU (0-234) H 01/17/21 17:46 Abnormal lab findings: Abnormal Labs 01/17/21 01/17/21 01/17/21 09:25 16:41 16:41 WBC RBC 5.23 H MCV 76 L MCH 24 L Lymph % (Auto) 9.4 L Lymph # (Auto) 0.8 L Seg Neutrophils % 85.4 H D-Dimer ABG pH ABG pO2 ABG O2 Saturation Oxyhemoglobin Sodium 128 L Chloride 90.8 L BUN Glucose 372 H Calcium Ferritin AST 98 H Lactate Dehydrogenase C-Reactive Protein Albumin 3.2 L Coronavirus (PCR) Positive A 01/17/21 01/17/21 01/17/21 17:46 17:46 17:46 WBC RBC MCV MCH Lymph % (Auto) Lymph # (Auto) Seg Neutrophils % D-Dimer 1058.54 H ABG pH ABG pO2 ABG O2 Saturation Oxyhemoglobin Sodium Chloride BUN Glucose 369 H Calcium Ferritin 668.4 H AST Lactate Dehydrogenase 519 H C-Reactive Protein 19.20 H Albumin Coronavirus (PCR) 01/18/21 01/18/21 01/19/21 09:01 17:18 05:11 WBC 14.2 H RBC MCV 74 L MCH 23 L Lymph % (Auto) Lymph # (Auto) Seg Neutrophils % D-Dimer ABG pH 7.461 H ABG pO2 53.1 L ABG O2 Saturation 89.4 L Oxyhemoglobin 88.0 L Sodium 132 L Chloride 93.6 L BUN 18 H Glucose 367 H Calcium 7.8 L Ferritin AST Lactate Dehydrogenase C-Reactive Protein Albumin Coronavirus (PCR) 01/19/21 05:11 WBC RBC MCV MCH Lymph % (Auto) Lymph # (Auto) Seg Neutrophils % D-Dimer ABG pH ABG pO2 ABG O2 Saturation Oxyhemoglobin Sodium Chloride BUN Glucose 304 H Calcium 8.3 L Ferritin AST 92 H Lactate Dehydrogenase C-Reactive Protein Albumin 3.0 L Coronavirus (PCR)
--- NOTE | 2021-01-19 08:45 | Progress Note ---
Assessment and Plan Assessment and plan: (1) Pneumonia Current Visit: Yes Status: Acute Plan to address problem: Admit the patient to the medical telemetry. Oxygen per nasal cannula 3 L/min. DuoNeb by nebulizer every 4 hours as needed. Rocephin 2 g IV daily and Zithromax 500 IV daily. Decadron 6 mg IV daily. We do the blood culture and sputum culture. We also consult infectious disease for evaluation. Recheck CBC BMP in the morning (2) COVID-19 Current Visit: Yes Status: Acute Plan to address problem: Rocephin 2 g IV daily and Zithromax 500 IV daily. Decadron 6 mg IV daily. Follow the Covid PCR and Covid inflammatory marker. We also consult infectious disease for evaluation (3) Hypoxia Current Visit: Yes Status: Acute Plan to address problem: Oxygen per nasal cannula 3 L/min. DuoNeb by nebulizer every 4 hours as needed. Decadron 6 mg IV daily. We do the blood cultures sputum culture. (4) Respiratory failure Current Visit: Yes Status: Acute Plan to address problem: Oxygen per nasal cannula 3 L/min. DuoNeb by nebulizer every 4 hours as needed. Rocephin 2 g IV daily and Zithromax 500 IV daily. Decadron 6 mg IV daily. We do the blood culture and sputum culture. Consult pulmonary if needed in the morning (5) Schizophrenia Current Visit: Yes Status: Acute Plan to address problem: Is stable. Outpatient follow-up with psych (6) DVT prophylaxis Current Visit: Yes Status: Acute Plan to address problem: Heparin 5000 units subcu every 8 hours. Pepcid 20 mg p.o. twice daily. Patient is a full code 01/18/2021 -Acute hypoxic respiratory failure requiring high flow oxygen 40 L. Nebulizer treatment -Patient is admitted for suspected Covid pneumonia. Patient is on dexamethasone, COVID-19 test is pending. Patient is on empiric antibiotics. -ID consulted, will consult pulmonary. -Patient has hyponatremia yesterday and I will repeat and if it is low I will manage accordingly -Patient has elevated D-dimer and CTA chest and bilateral Doppler ultrasound of the lower extremities pending 01/19/2021 -Acute hypoxic respiratory failure currently on BiPAP, nebulizer treatment. I will put in orders to transfer to [facility] yesterday but there was no bed. -Patient is positive for Covid and she is on Decadron and remdesivir. Actemra was ordered on 01/19/2021 -ID evaluated the patient and recommend to continue Decadron and remdesivir, also to continue ceftriaxone and azithromycin for 5 days because of the elevated procalcitonin level. Pulmonary was consulted and recommend to continue current management and add Lasix -CTA chest was done and significant for bilateral pulmonary opacities, negative for PE, Doppler ultrasound of the lower extremities was negative for DVT. -Prognosis is guarded. -Patient is currently on BiPAP and she was agitated and trying to take off the BiPAP, I put the patient on restraints. Discussed with assistant housekeeping manager to transfer the patient to IMCU and if there is no bed she need to be transferred to CCU. History Interval history: Patient was seen and evaluated this morning Patient was on BiPAP Patient was in respiratory distress Hospitalist Physical - Physical exam Narrative exam: Patient was on BiPAP The patient appeared well nourished and normally developed. Vital signs as documented. Head exam is unremarkable. No scleral icterus . Neck is without jugular venous distension, thyromegaly, or carotid bruits. Lungs decreased air entry on both lungs Cardiac exam reveals regular rate and Rhythm. Abdominal exam reveals normal bowel sounds, nontender, no organomegaly. Extremities are nonedematous and both femoral and pedal pulses are normal. 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 - Constitutional Vitals: Temp Pulse Resp BP Pulse Ox 99.6 F 105 H 20 129/57 90 01/19/21 06:09 01/19/21 06:09 01/19/21 06:09 01/19/21 06:09 01/19/21 06:09 General appearance: Present: mild distress, well-nourished HEART Score - HEART Score Troponin: Troponin T < 0.010 ng/mL (0.00-0.029) 01/17/21 16:41 Results - Labs CBC & Chem 7: 01/19/21 05:11 01/19/21 05:11 Labs: Laboratory Last Values WBC 14.2 K/mm3 (4.5-11.0) H 01/19/21 05:11 RBC 4.94 M/mm3 (3.65-5.03) 01/19/21 05:11 Hgb 11.2 gm/dl (10.1-14.3) 01/19/21 05:11 Hct 36.6 % (30.3-42.9) 01/19/21 05:11 MCV 74 fl (79-97) L 01/19/21 05:11 MCH 23 pg (28-32) L 01/19/21 05:11 MCHC 31 % (30-34) 01/19/21 05:11 RDW 15.2 % (13.2-15.2) 01/19/21 05:11 Plt Count 235 K/mm3 (140-440) 01/19/21 05:11 Lymph % (Auto) 9.4 % (13.4-35.0) L 01/17/21 16:41 [place] % (Auto) 5.0 % (0.0-7.3) 01/17/21 16:41 Eos % (Auto) 0.0 % (0.0-4.3) 01/17/21 16:41 Baso % (Auto) 0.2 % (0.0-1.8) 01/17/21 16:41 Lymph # (Auto) 0.8 K/mm3 (1.2-5.4) L 01/17/21 16:41 [place] # (Auto) 0.4 K/mm3 (0.0-0.8) 01/17/21 16:41 Eos # (Auto) 0.0 K/mm3 (0.0-0.4) 01/17/21 16:41 Baso # (Auto) 0.0 K/mm3 (0.0-0.1) 01/17/21 16:41 Seg Neutrophils % Blaster Helper 01/19/21 05:11 Seg Neutrophils # 7.6 K/mm3 (1.8-7.7) 01/17/21 16:41 D-Dimer 1058.54 ng/mlDDU (0-234) H 01/17/21 17:46 ABG pH 7.461 pH Units (7.350-7.450) H 01/18/21 17:18 ABG pCO2 36.6 mm Hg 01/18/21 17:18 ABG pO2 53.1 mm Hg (80.0-90.0) L 01/18/21 17:18 ABG HCO3 25.5 mmol/L (20.0-26.0) 01/18/21 17:18 ABG O2 Saturation 89.4 % (95.0-99.0) L 01/18/21 17:18 ABG O2 Content 15.1 (0.0-44) 01/18/21 17:18 ABG Base Excess 1.9 mmol/L (-2.0-3.0) 01/18/21 17:18 ABG Hemoglobin 12.2 gm/dl (12.0-16.0) 01/18/21 17:18 ABG Carboxyhemoglobin 1.2 % (0.0-5.0) 01/18/21 17:18 ABG Methemoglobin 0.5 % (0.0-1.5) 01/18/21 17:18 Oxyhemoglobin 88.0 % (95.0-99.0) L 01/18/21 17:18 FiO2 100 % 01/18/21 17:18 Sodium 138 mmol/L (137-145) 01/19/21 05:11 Potassium 4.1 mmol/L (3.6-5.0) 01/19/21 05:11 Chloride 99.4 mmol/L (98-107) 01/19/21 05:11 Carbon Dioxide 27 mmol/L (22-30) 01/19/21 05:11 Anion Gap 16 mmol/L 01/19/21 05:11 BUN 14 mg/dL (7-17) 01/19/21 05:11 Creatinine 0.7 mg/dL (0.6-1.2) 01/19/21 05:11 Estimated GFR > 60 ml/min 01/19/21 05:11 BUN/Creatinine Ratio 20 % 01/19/21 05:11 Glucose 304 mg/dL (65-100) H 01/19/21 05:11 Lactic Acid 1.70 mmol/L (0.7-2.0) 01/17/21 16:41 Calcium 8.3 mg/dL (8.4-10.2) L 01/19/21 05:11 Ferritin 668.4 ng/mL (10.0-200.0) H 01/17/21 17:46 Total Bilirubin 0.20 mg/dL (0.1-1.2) 01/19/21 05:11 AST 92 units/L (5-40) H 01/19/21 05:11 ALT 47 units/L (7-56) 01/19/21 05:11 Alkaline Phosphatase 83 units/L (35-129) 01/19/21 05:11 Lactate Dehydrogenase 519 units/L (91-180) H 01/17/21 17:46 Troponin T < 0.010 ng/mL (0.00-0.029) 01/17/21 16:41 C-Reactive Protein 19.20 mg/dL (0.00-1.30) H 01/17/21 17:46 NT-Pro-B Natriuret Pep 40.88 pg/mL (0-900) 01/17/21 16:41 Total Protein 7.5 g/dL (6.3-8.2) 01/19/21 05:11 Albumin 3.0 g/dL (3.9-5) L 01/19/21 05:11 Albumin/Globulin Ratio 0.7 % 01/19/21 05:11 Procalcitonin 0.39 ng/mL (<0.15) 01/17/21 17:46 Coronavirus (PCR) Positive (Negative) A 01/17/21 09:25 Microbiology: Microbiology 01/17/21 16:41 Peripheral/Venous Blood Culture - Preliminary NO GROWTH AFTER 24 HOURS 01/17/21 16:47 Peripheral/Venous Blood Culture - Preliminary NO GROWTH AFTER 24 HOURS Estrada/IV: Voiding Method Bedpan Active Medications - Current Medications Current Medications: Generic Name Dose Route Start Last Admin Trade Name Freq PRN Reason Stop Dose Admin Acetaminophen 650 mg 01/18/21 00:36 01/18/21 17:32 Acetaminophen 325 Mg Tab PO 650 mg Q4H PRN Administration Pain MILD(1-3)/Fever >100.5/PAN Albuterol/Ipratropium 1 ampul 01/18/21 02:00 01/19/21 03:47 Ipratropium/Albuterol Sulfate 3 Ml Ampul.Neb IH Not Given Q6HRT PJ Dexamethasone 6 mg 01/18/21 10:00 01/18/21 11:36 Dexamethasone 4 Mg/Ml Vial IV 01/27/21 10:01 6 mg DAILY PJ Administration Famotidine 20 mg 01/18/21 10:00 01/18/21 21:28 Famotidine 20 Mg Tab PO 20 mg BID PJ Administration Furosemide 40 mg 01/19/21 08:33 Furosemide 40 Mg/4 Ml Inj IV 01/19/21 08:34 ONCE ONE Heparin Sodium (Porcine) 5,000 unit 01/18/21 06:00 01/19/21 06:24 Heparin 5,000 Unit/1 Ml Vial SUB-Q 5,000 unit Q8HR PJ Administration Hydralazine HCl 10 mg 01/18/21 00:38 Hydralazine 20 Mg/1 Ml Inj IV Q6H PRN htn Hydromorphone HCl 0.5 mg 01/18/21 14:13 Hydromorphone 1 Mg/1 Ml Inj IV ONCE PRN Pain , Severe (7-10) Ceftriaxone Sodium 2 gm in 100 mls @ 200 mls/hr 01/18/21 22:00 01/18/21 21:32 Rocephin/Ns 2 Gm/100 Ml IV 200 mls/hr Q24H [facility] Administration Protocol Azithromycin 500 mg in 250 mls @ 250 mls/hr 01/18/21 22:00 01/18/21 21:28 Zithromax/Ns IV 250 mls/hr Q24H [facility] Administration Protocol REMDESIVIR 100 mg/ Sodium 250 mls @ 500 mls/hr 01/19/21 21:00 Chloride IV 01/22/21 21:29 Q24HR@2100 [facility] TOCILIZUMAB 780 mg/ Sodium 139 mls @ 120 mls/hr 01/18/21 19:20 Chloride IV 01/18/21 20:29 ONCE ONE Insulin Human Lispro 0 unit 01/19/21 11:30 Insulin Lispro 100 Unit/Ml SUB-Q ACHS [facility] Protocol Ondansetron HCl 4 mg 01/18/21 00:36 Ondansetron 4 Mg/2 Ml Inj IV Q8H PRN Nausea And Vomiting Sodium Chloride 10 ml 01/18/21 10:00 01/18/21 21:30 Sodium Chloride 0.9% 10 Ml Flush Syringe IV 10 ml BID PJ Administration Sodium Chloride 10 ml 01/18/21 00:36 Sodium Chloride 0.9% 10 Ml Flush Syringe IV PRN PRN LINE FLUSH Sodium Chloride 50 ml 01/18/21 21:00 01/18/21 20:53 Sodium Chloride 0.9% 50 Ml Ivpb IV 01/22/21 21:01 50 ml Q24HR@2100 [facility] Administration
[2021-01-19] MEDS ORDERED: FUROSEMIDE 40 MG/4 ML INJ IV ONE (09:00)
[2021-01-19 09:38] LABS: Total Cells Counted 100
[2021-01-19 09:44] LABS: Hypochromasia 1+; Platelet Estimate Consistent w Auto
[2021-01-19] MEDS: FAMOTIDINE 20 MG TAB PO SCH ×2 (10:18→21:45)
[2021-01-19] MEDS: dexAMETHasone 4 MG/ML VIAL IV SCH (10:19)
[2021-01-19] MEDS: INSULIN LISPRO 100 UNIT/ML SUB-Q SCH ×3 (11:13→22:45)
[2021-01-19] MEDS ORDERED: LORazepam 2 MG/ML VIAL IV ONE (12:15)
[2021-01-19] MEDS ORDERED: SODIUM CHLORIDE 0.9% 50 ML IVPB IV SCH (12:17)
[2021-01-19] MEDS ORDERED: REMDESIVIR 200 MG in SODIUM CHLORIDE 0.9% 250ML 250 ML IV ONE (12:17)
--- NOTE | 2021-01-19 14:43 | Progress Note ---
Assessment and Plan Cultures: Covid PCR: Positive A/P: 55-year-old female past medical history schizophrenia admitted to hospital with COVID-19. #Severe COVID-19 pneumonia: Patient presented with a week of symptoms, chest x- ray with diffuse bilateral infiltrates. Inflammatory markers elevated. No evidence of pulmonary embolism on CT #Acute hypoxemic respiratory failure: Likely secondary to COVID-19 infection. Currently on BiPAP #Obesity Recs: -Dexamethasone, agree with higher dose given obesity. -Remdesivir 200 mg IV q day x 1 followed by 100 mg IV q day x 4 days -Ordered Actemra 8 mg/mg once, will be available tomorrow. Discussed with pharmacy -Obtain q48-72h inflammatory markers - ferritin, Ddimer, CRP, LDH -Continue ceftriaxone 2 gm IV qday and azithromycin 500 mg PO qday, complete 5 days due to elevated procalcitonin. -Anticoagulation per hospital protocol -Proning as able Thank you for the consult, we will continue to follow. Dr. Torres taking over Wednesday Nelson Angulo MD [facility] O: [phone] F: [phone] Subjective Date of service: 01/19/21 Interval history: Afebrile overnight, white count 14.2. Covid positive. Imaging personally reviewed: Dopplers: No evidence of DVT. Now in the ICU on BiPAP Objective - Exam Narrative Exam: Physical exam deferred to reduce risk of transmission of COVID-19. Please refer to primary team's note. - Constitutional Vitals: Vital Signs Temp Pulse Resp BP Pulse Ox 99.6 F 104 H 30 H 129/57 92 01/19/21 06:09 01/19/21 10:54 01/19/21 10:54 01/19/21 06:09 01/19/21 10:54 Temperature -Last 24 Hours Temperature 99.6 F Temperature 98.7 F Temperature 102.0 F - Labs CBC & Chem 7: 01/19/21 05:11 01/19/21 05:11 Labs: Abnormal lab results 01/17/21 01/18/21 01/19/21 Range/Units 09:25 17:18 05:11 WBC 14.2 H (4.5-11.0) K/mm3 MCV 74 L (79-97) fl MCH 23 L (28-32) pg Seg Neuts % (Manual) 88.0 H (40.0-70.0) % Lymphocytes % (Manual) 10.0 L (13.4-35.0) % Seg Neutrophils # Man 12.5 H (1.8-7.7) K/mm3 ABG pH 7.461 H (7.350-7.450) pH Units ABG pO2 53.1 L (80.0-90.0) mm Hg ABG O2 Saturation 89.4 L (95.0-99.0) % Oxyhemoglobin 88.0 L (95.0-99.0) % Glucose (65-100) mg/dL Calcium (8.4-10.2) mg/dL AST (5-40) units/L Albumin (3.9-5) g/dL Coronavirus (PCR) Positive A (Negative) 01/19/21 Range/Units 05:11 WBC (4.5-11.0) K/mm3 MCV (79-97) fl MCH (28-32) pg Seg Neuts % (Manual) (40.0-70.0) % Lymphocytes % (Manual) (13.4-35.0) % Seg Neutrophils # Man (1.8-7.7) K/mm3 ABG pH (7.350-7.450) pH Units ABG pO2 (80.0-90.0) mm Hg ABG O2 Saturation (95.0-99.0) % Oxyhemoglobin (95.0-99.0) % Glucose 304 H (65-100) mg/dL Calcium 8.3 L (8.4-10.2) mg/dL AST 92 H (5-40) units/L Albumin 3.0 L (3.9-5) g/dL Coronavirus (PCR) (Negative)
[2021-01-19 15:25] LABS: Alanine Aminotransferase 49 units/L (7-56); BUN/Creatinine Ratio 23; Blood Urea Nitrogen 18 mg/dL (7-17); Calcium 8.7 mg/dL (8.4-10.2); Hemolysis Index 1
[2021-01-19] MEDS ORDERED: REMDESIVIR 100 MG in SODIUM CHLORIDE 0.9% 250ML 250 ML IV SCH (21:00)
[2021-01-19] MEDS: SODIUM CHLORIDE 0.9% 50 ML IVPB IV SCH (21:14)
[2021-01-19] MEDS: REMDESIVIR 100 MG in SODIUM CHLORIDE 0.9% 250ML 250 ML IV SCH (21:15)
[2021-01-19] MEDS: cefTRIAXone/NS 2 GM/100 ML 2 GM/100 ML BAG IV SCH (21:45)
[2021-01-19] MEDS: AZITHROMYCIN/NS 500 MG/250 ML 500 MG/250 ML BAG IV SCH (22:18)
[2021-01-20] MEDS: IPRATROPIUM/ALBUTEROL SULFATE 3 ML AMPUL.NEB IH SCH ×4 (05:27→22:11)
[2021-01-20] MEDS: HEPARIN 5,000 UNIT/1 ML VIAL SUB-Q SCH ×3 (05:54→21:38)
[2021-01-20] MEDS: INSULIN LISPRO 100 UNIT/ML SUB-Q SCH ×4 (07:36→21:47)
[2021-01-20 08:42] LABS: Alanine Aminotransferase 41 units/L (7-56); Albumin 2.7 g/dL (3.9-5); BUN/Creatinine Ratio 40; Blood Urea Nitrogen 32 mg/dL (7-17); Calcium 8.8 mg/dL (8.4-10.2); Hemolysis Index 7
[2021-01-20] MEDS ORDERED: HALOPERIDOL LACTATE 5 MG/1 ML INJ IV SCH (10:00)
[2021-01-20] MEDS ORDERED: TOCILIZUMAB 800 MG in SODIUM CHLORIDE 0.9% 100 ML IV ONE (10:00)
[2021-01-20] MEDS: dexAMETHasone 4 MG/ML VIAL IV SCH ×2 (10:48→21:37)
[2021-01-20] MEDS: FAMOTIDINE 20 MG TAB PO SCH ×2 (10:48→21:38)
[2021-01-20] MEDS ORDERED: HYDROmorphone 1 MG/1 ML INJ IV PRN (11:00)
--- NOTE | 2021-01-20 11:19 | Progress Note ---
Assessment and Plan Cultures: COVID-19 PCR: Positive 01/17/2021 blood culture: No growth A/P: 55-year-old female past medical history schizophrenia admitted to hospital with COVID-19. #Severe COVID-19 pneumonia: Inflammatory markers elevated. No evidence of pulmonary embolism on CT #Acute hypoxemic respiratory failure: secondary to COVID-19 infection. Currently on BiPAP. #Obesity Recs: -Continue Decadron, higher dose due to obesity -Continue Remdesivir, complete 5 days -Pending Actemra administration, order was placed yesterday by Dr. Angulo but currently not in stock -Complete empiric antibiotics due to elevated procalcitonin -Anticoagulation per protocol -Proning as able Aiden Torres MD, FACP [facility] ([facility] O: [phone] F: [phone] Subjective Date of service: 01/20/21 Interval history: No fever. Remains on BiPAP. Objective - Exam Narrative Exam: Physical Exam (reviewed in chart to minimize risk of transmission) Constitutional: deferred Head, Ears, Nose: deferred Eyes: deferred Neck: deferred Oral: deferred Cardiovascular: deferred Respiratory: deferred GI: deferred Musculoskeletal: deferred Skin: deferred Hem/Lymphatic: deferred Psych: deferred Neurological: deferred - Constitutional Vitals: Vital Signs Temp Pulse Resp BP Pulse Ox 97.9 F 93 H 30 H 153/85 84 01/20/21 08:11 01/20/21 09:00 01/20/21 09:00 01/20/21 09:00 01/20/21 10:32 Temperature -Last 24 Hours Temperature 97.9 F Temperature 97.7 F Temperature 99 F Temperature 98.6 F Temperature 98.5 F - Labs CBC & Chem 7: 01/19/21 05:11 01/20/21 07:33 Labs: Abnormal lab results 01/19/21 01/19/21 01/19/21 Range/Units 11:06 14:43 16:18 BUN 18 H (7-17) mg/dL Glucose 379 H (65-100) mg/dL POC Glucose 382 H 374 H (70-105) mg/dL AST 96 H (5-40) units/L Albumin 3.0 L (3.9-5) g/dL 01/19/21 01/20/21 01/20/21 Range/Units 22:18 07:31 07:33 BUN 32 H (7-17) mg/dL Glucose 343 H (65-100) mg/dL POC Glucose 341 H 344 H (70-105) mg/dL AST 57 H (5-40) units/L Albumin 2.7 L (3.9-5) g/dL
--- NOTE | 2021-01-20 11:54 | Progress Note ---
Assessment and Plan 55 y/o female admitted with acute respiratory failure secondary to pneumonia, positive for Sars CoV2 01/20/21: Gave Haldol 5 and patient has calmed down and become more appropriate, allowing us to place bipap back on. COntinue steroids and remdesivir therapy. Doubt patient will be able to prone successfully. Will try lasix today again to see if this helps. Very very guarded prognosis. 01/19/21: Continue decadron, suggest increase given patient body habitus to BID. ID consult for Remdesivir therapy and to see if she is a candidate for Actemra. Prone as tolerated during the day and sleep prone at night. Will give lasix again today. Guarded prognosis. 1. Prone 2. Lasix 3. Agree with steroids 4. Follow up COVID testing Guarded prognosis Subjective Date of service: 01/20/21 Interval history: Patient confused, delirious. Ripping off bipap, not allowing replacement. Per nursing on discussion with rounds, patient has severe schizophrenia and has not allowed any medical visits nor has she been on any salvage determiner meds for her mood/mind. Satting in the low 80's on just HFNC. Objective Vital Signs - 12hr 01/20/21 01/20/21 01/20/21 00:00 00:08 00:16 Temperature Pulse Rate 92 H 90 90 Pulse Rate [ 97 H From Monitor] Respiratory 22 22 23 Rate Blood Pressure 128/65 139/63 153/54 O2 Sat by Pulse 96 89 87 Oximetry 01/20/21 01/20/21 01/20/21 00:30 00:46 01:00 Temperature Pulse Rate 86 87 85 Pulse Rate [ From Monitor] Respiratory 26 H 24 24 Rate Blood Pressure 153/54 123/60 123/60 O2 Sat by Pulse 91 88 91 Oximetry 01/20/21 01/20/21 01/20/21 01:15 01:30 01:46 Temperature Pulse Rate 86 82 94 H Pulse Rate [ From Monitor] Respiratory 23 23 24 Rate Blood Pressure 111/57 111/57 133/67 O2 Sat by Pulse 88 95 86 Oximetry 01/20/21 01/20/21 01/20/21 02:00 02:16 02:30 Temperature Pulse Rate 88 89 87 Pulse Rate [ From Monitor] Respiratory 30 H 30 H 26 H Rate Blood Pressure 193/72 150/78 150/78 O2 Sat by Pulse 91 88 90 Oximetry 01/20/21 01/20/21 01/20/21 02:46 03:00 03:16 Temperature Pulse Rate 86 92 H 87 Pulse Rate [ From Monitor] Respiratory 27 H 24 30 H Rate Blood Pressure 158/82 158/82 162/79 O2 Sat by Pulse 87 91 89 Oximetry 01/20/21 01/20/21 01/20/21 03:17 03:26 03:30 Temperature 97.7 F Pulse Rate 84 86 Pulse Rate [ From Monitor] Respiratory 22 27 H Rate Blood Pressure 159/84 159/84 O2 Sat by Pulse 91 90 Oximetry 01/20/21 01/20/21 01/20/21 03:46 04:00 04:16 Temperature Pulse Rate 86 84 84 Pulse Rate [ 76 From Monitor] Respiratory 29 H 27 H 26 H Rate Blood Pressure 163/84 163/84 161/83 O2 Sat by Pulse 89 93 86 Oximetry 01/20/21 01/20/21 01/20/21 04:30 04:46 05:00 Temperature Pulse Rate 85 82 79 Pulse Rate [ From Monitor] Respiratory 24 24 24 Rate Blood Pressure 161/83 135/72 139/72 O2 Sat by Pulse 89 86 88 Oximetry 01/20/21 01/20/21 01/20/21 05:16 05:30 05:46 Temperature Pulse Rate 88 86 89 Pulse Rate [ From Monitor] Respiratory 26 H 24 30 H Rate Blood Pressure 127/73 127/73 131/72 O2 Sat by Pulse 88 90 88 Oximetry 01/20/21 01/20/21 01/20/21 06:00 06:16 06:30 Temperature Pulse Rate 86 89 86 Pulse Rate [ From Monitor] Respiratory 26 H 31 H 31 H Rate Blood Pressure 131/72 142/66 142/66 O2 Sat by Pulse 92 89 92 Oximetry 01/20/21 01/20/21 01/20/21 06:46 07:00 07:16 Temperature Pulse Rate 86 83 84 Pulse Rate [ From Monitor] Respiratory 39 H 24 26 H Rate Blood Pressure 143/65 143/65 150/78 O2 Sat by Pulse 90 90 88 Oximetry 01/20/21 01/20/21 01/20/21 07:30 07:46 08:00 Temperature Pulse Rate 84 98 H 87 Pulse Rate [ 76 From Monitor] Respiratory 28 H 33 H 34 H Rate Blood Pressure 147/69 157/80 157/80 O2 Sat by Pulse 89 90 Oximetry 01/20/21 01/20/21 01/20/21 08:11 08:16 08:30 Temperature 97.9 F Pulse Rate 84 94 H Pulse Rate [ From Monitor] Respiratory 29 H 27 H Rate Blood Pressure 154/76 154/76 O2 Sat by Pulse 88 93 Oximetry 01/20/21 01/20/21 01/20/21 08:46 09:00 10:32 Temperature Pulse Rate 90 93 H Pulse Rate [ From Monitor] Respiratory 32 H 30 H Rate Blood Pressure 153/85 153/85 O2 Sat by Pulse 89 91 84 Oximetry Constitutional: alert Eyes: non-icteric Neck: other (large in circumference) Effort: mildly labored Ascultation: Bilateral: clear CBC and BMP: 01/19/21 05:11 01/20/21 07:33 ABG, PT/INR, D-dimer: ABG ABG pH 7.461 pH Units (7.350-7.450) H 01/18/21 17:18 ABG pCO2 36.6 mm Hg 01/18/21 17:18 ABG pO2 53.1 mm Hg (80.0-90.0) L 01/18/21 17:18 ABG O2 Saturation 89.4 % (95.0-99.0) L 01/18/21 17:18 PT/INR, D-dimer D-Dimer 1058.54 ng/mlDDU (0-234) H 01/17/21 17:46 Abnormal lab findings: Abnormal Labs 01/17/21 01/17/21 01/17/21 09:25 16:41 16:41 WBC RBC 5.23 H MCV 76 L MCH 24 L Lymph % (Auto) 9.4 L Lymph # (Auto) 0.8 L Seg Neutrophils % 85.4 H Seg Neuts % (Manual) Lymphocytes % (Manual) Seg Neutrophils # Man D-Dimer ABG pH ABG pO2 ABG O2 Saturation Oxyhemoglobin Sodium 128 L Chloride 90.8 L BUN Glucose 372 H POC Glucose Calcium Ferritin AST 98 H Lactate Dehydrogenase C-Reactive Protein Albumin 3.2 L Coronavirus (PCR) Positive A 01/17/21 01/17/21 01/17/21 17:46 17:46 17:46 WBC RBC MCV MCH Lymph % (Auto) Lymph # (Auto) Seg Neutrophils % Seg Neuts % (Manual) Lymphocytes % (Manual) Seg Neutrophils # Man D-Dimer 1058.54 H ABG pH ABG pO2 ABG O2 Saturation Oxyhemoglobin Sodium Chloride BUN Glucose 369 H POC Glucose Calcium Ferritin 668.4 H AST Lactate Dehydrogenase 519 H C-Reactive Protein 19.20 H Albumin Coronavirus (PCR) 01/18/21 01/18/21 01/19/21 09:01 17:18 05:11 WBC 14.2 H RBC MCV 74 L MCH 23 L Lymph % (Auto) Lymph # (Auto) Seg Neutrophils % Seg Neuts % (Manual) 88.0 H Lymphocytes % (Manual) 10.0 L Seg Neutrophils # Man 12.5 H D-Dimer ABG pH 7.461 H ABG pO2 53.1 L ABG O2 Saturation 89.4 L Oxyhemoglobin 88.0 L Sodium 132 L Chloride 93.6 L BUN 18 H Glucose 367 H POC Glucose Calcium 7.8 L Ferritin AST Lactate Dehydrogenase C-Reactive Protein Albumin Coronavirus (PCR) 01/19/21 01/19/21 01/19/21 05:11 11:06 14:43 WBC RBC MCV MCH Lymph % (Auto) Lymph # (Auto) Seg Neutrophils % Seg Neuts % (Manual) Lymphocytes % (Manual) Seg Neutrophils # Man D-Dimer ABG pH ABG pO2 ABG O2 Saturation Oxyhemoglobin Sodium Chloride BUN 18 H Glucose 304 H 379 H POC Glucose 382 H Calcium 8.3 L Ferritin AST 92 H 96 H Lactate Dehydrogenase C-Reactive Protein Albumin 3.0 L 3.0 L Coronavirus (PCR) 01/19/21 01/19/21 01/20/21 16:18 22:18 07:31 WBC RBC MCV MCH Lymph % (Auto) Lymph # (Auto) Seg Neutrophils % Seg Neuts % (Manual) Lymphocytes % (Manual) Seg Neutrophils # Man D-Dimer ABG pH ABG pO2 ABG O2 Saturation Oxyhemoglobin Sodium Chloride BUN Glucose POC Glucose 374 H 341 H 344 H Calcium Ferritin AST Lactate Dehydrogenase C-Reactive Protein Albumin Coronavirus (PCR) 01/20/21 07:33 WBC RBC MCV MCH Lymph % (Auto) Lymph # (Auto) Seg Neutrophils % Seg Neuts % (Manual) Lymphocytes % (Manual) Seg Neutrophils # Man D-Dimer ABG pH ABG pO2 ABG O2 Saturation Oxyhemoglobin Sodium Chloride BUN 32 H Glucose 343 H POC Glucose Calcium Ferritin AST 57 H Lactate Dehydrogenase C-Reactive Protein Albumin 2.7 L Coronavirus (PCR)
[2021-01-20] MEDS ORDERED: FUROSEMIDE 40 MG/4 ML INJ IV ONE (12:00)
[2021-01-20 14:42] LABS: Alanine Aminotransferase 44 units/L (7-56); Albumin 3.1 g/dL (3.9-5); Blood Urea Nitrogen 31 mg/dL (7-17); Calcium 9.1 mg/dL (8.4-10.2); Hemolysis Index 4
[2021-01-20 15:22] LABS: BUN/Creatinine Ratio 44
--- NOTE | 2021-01-20 17:00 | Progress Note ---
<JEFRFEY MITCHELL - Last Filed: 01/20/21 17:00> Assessment and Plan Assessment and plan: This is a 55-year-old female admitted with acute hypoxic respiratory failure secondary to COVID-19 pneumonia Severe COVID-19 pneumonia Acute hypoxic respiratory failure Obesity Schizophrenia Leukocytosis Hyperglycemia Schizophrenia -CCM, infectious disease, psychiatry consulted, appreciate recommendations -COVID-19 PCR positive -Droplet/contact isolation -Remdesivir, azithromycin, ceftriaxone, dexamethasone (twice daily dosing) -Pending Actemra -Wean supplemental oxygen as tolerated, pulmonary hygiene -Prone as tolerated -Trend COVID-19 inflammatory markers for risk stratification, CBC, CMP -SSI, Lantus -01/18 bilateral lower extremity Doppler ultrasound negative for DVT -01/17 CTA shows no evidence of pulmonary embolism, extensive bilateral pneumonia, hepatomegaly with hepatic steatosis DVT/GI prophylaxis: Heparin subcu, SCDs to bilateral tremors while in bed Disposition: ICU The high probability of a clinically significant, sudden or life threatening deterioration of the [respiratory] system(s) required my full and direct attention, intervention and personal management. The aggregate critical care time was [35] minutes. This time is in addition to time spent performing reported procedures but includes the following: [x] Data Review and interpretation [x] Patient assessment and monitoring of vital signs [x] Documentation [x] Medication orders and management History Interval history: This is a 55-year-old female with schizophrenia who presented to [facility] on 01/18 for shortness of breath, cough, subjective fever and not feeling well for the last couple days with known COVID-19 exposure. While in the emergency room patient was switched from non rebreather mask to high flow nasal cannula and his CTA chest showed no acute pulmonary embolism. Patient was admitted to the hospital service as a COVID-19 PUI with consults to [facility], infectious disease, psy ch. 01/18/2021 -Acute hypoxic respiratory failure requiring high flow oxygen 40 L. Nebulizer treatment -Patient is admitted for suspected Covid pneumonia. Patient is on dexamethasone, COVID-19 test is pending. Patient is on empiric antibiotics. -ID consulted, will consult pulmonary. -Patient has hyponatremia yesterday and I will repeat and if it is low I will manage accordingly -Patient has elevated D-dimer and CTA chest and bilateral Doppler ultrasound of the lower extremities pending 01/19/2021 -Acute hypoxic respiratory failure currently on BiPAP, nebulizer treatment. I will put in orders to transfer to [facility] yesterday but there was no bed. -Patient is positive for Covid and she is on Decadron and remdesivir. Actemra was ordered on 01/19/2021 -ID evaluated the patient and recommend to continue Decadron and remdesivir, also to continue ceftriaxone and azithromycin for 5 days because of the elevated procalcitonin level. Pulmonary was consulted and recommend to continue current management and add Lasix -CTA chest was done and significant for bilateral pulmonary opacities, negative for PE, Doppler ultrasound of the lower extremities was negative for DVT. -Prognosis is guarded. -Patient is currently on BiPAP and she was agitated and trying to take off the BiPAP, I put the patient on restraints. Discussed with yard warehouse worker to transfer the patient to [facility] and if there is no bed she need to be transferred to CCU. 01/20: Patient received 5 mg of Haldol for severe agitation and refusal to keep high flow nasal cannula in place. [facility] ordered Lasix again. Psych was consulted today. Patient was on BiPAP therapy all night and RT attempted to give her a break patient is on high flow nasal cannula however she did not keep this in place and was paced back on BiPAP after receiving Haldol. She was started on Lantus today. - Hospitalist Physical - Constitutional Vitals: Temp Pulse Resp BP Pulse Ox 97.9 F 101 H 26 H 159/66 93 01/20/21 12:47 01/20/21 14:22 01/20/21 14:22 01/20/21 12:46 01/20/21 12:46 General appearance: Present: mild distress, well-nourished - EENT Eyes: Present: PERRL, EOM intact ENT: clear oral mucosa, poor dentition - Neck Neck: Present: normal ROM - Respiratory Respiratory effort: normal Respiratory: bilateral: diminished - Cardiovascular Rhythm: regular Heart Sounds: Present: S1 & S2. Absent: systolic murmur, diastolic murmur - Extremities Extremities: no ischemia, pulses intact, pulses symmetrical, No edema, normal temperature, normal color, Full ROM Peripheral Pulses: within normal limits - Abdominal General gastrointestinal: soft, non-tender, non-distended, normal bowel sounds - Integumentary Integumentary: Present: warm, dry - Psychiatric Psychiatric: cooperative - Neurologic Neurologic: CNII-XII intact, no focal deficits, moves all extremities - Allied Health Allied health notes reviewed: nursing, RT, social work HEART Score - HEART Score Troponin: Troponin T < 0.010 ng/mL (0.00-0.029) 01/17/21 16:41 Results - Labs CBC & Chem 7: 01/19/21 05:11 01/20/21 13:54 Labs: Laboratory Last Values WBC 14.2 K/mm3 (4.5-11.0) H 01/19/21 05:11 RBC 4.94 M/mm3 (3.65-5.03) 01/19/21 05:11 Hgb 11.2 gm/dl (10.1-14.3) 01/19/21 05:11 Hct 36.6 % (30.3-42.9) 01/19/21 05:11 MCV 74 fl (79-97) L 01/19/21 05:11 MCH 23 pg (28-32) L 01/19/21 05:11 MCHC 31 % (30-34) 01/19/21 05:11 RDW 15.2 % (13.2-15.2) 01/19/21 05:11 Plt Count 235 K/mm3 (140-440) 01/19/21 05:11 Lymph % (Auto) 9.4 % (13.4-35.0) L 01/17/21 16:41 [place] % (Auto) 5.0 % (0.0-7.3) 01/17/21 16:41 Eos % (Auto) 0.0 % (0.0-4.3) 01/17/21 16:41 Baso % (Auto) 0.2 % (0.0-1.8) 01/17/21 16:41 Lymph # (Auto) 0.8 K/mm3 (1.2-5.4) L 01/17/21 16:41 [place] # (Auto) 0.4 K/mm3 (0.0-0.8) 01/17/21 16:41 Eos # (Auto) 0.0 K/mm3 (0.0-0.4) 01/17/21 16:41 Baso # (Auto) 0.0 K/mm3 (0.0-0.1) 01/17/21 16:41 Add Manual Diff Complete 01/19/21 05:11 Total Counted 100 01/19/21 05:11 Seg Neutrophils % Silk Conditioner 01/19/21 05:11 Seg Neuts % (Manual) 88.0 % (40.0-70.0) H 01/19/21 05:11 Lymphocytes % (Manual) 10.0 % (13.4-35.0) L 01/19/21 05:11 Monocytes % (Manual) 2.0 % (0.0-7.3) 01/19/21 05:11 Nucleated RBC % Not Reportable 01/19/21 05:11 Seg Neutrophils # 7.6 K/mm3 (1.8-7.7) 01/17/21 16:41 Seg Neutrophils # Man 12.5 K/mm3 (1.8-7.7) H 01/19/21 05:11 Band Neutrophils # 0.0 K/mm3 01/19/21 05:11 Lymphocytes # (Manual) 1.4 K/mm3 (1.2-5.4) 01/19/21 05:11 Abs React Lymphs (Man) 0.0 K/mm3 01/19/21 05:11 Monocytes # (Manual) 0.3 K/mm3 (0.0-0.8) 01/19/21 05:11 Eosinophils # (Manual) 0.0 K/mm3 (0.0-0.4) 01/19/21 05:11 Basophils # (Manual) 0.0 K/mm3 (0.0-0.1) 01/19/21 05:11 Metamyelocytes # 0.0 K/mm3 01/19/21 05:11 Myelocytes # 0.0 K/mm3 01/19/21 05:11 Promyelocytes # 0.0 K/mm3 01/19/21 05:11 Blast Cells # 0.0 K/mm3 01/19/21 05:11 WBC Morphology Not Reportable 01/19/21 05:11 Hypersegmented Neuts Not Reportable 01/19/21 05:11 Hyposegmented Neuts Not Reportable 01/19/21 05:11 Hypogranular Neuts Not Reportable 01/19/21 05:11 Smudge Cells Not Reportable 01/19/21 05:11 Toxic Granulation Not Reportable 01/19/21 05:11 Toxic Vacuolation Not Reportable 01/19/21 05:11 Dohle Bodies Not Reportable 01/19/21 05:11 Pelger-Huet Anomaly Not Reportable 01/19/21 05:11 Inder Rods Not Reportable 01/19/21 05:11 Platelet Estimate Consistent w auto 01/19/21 05:11 Clumped Platelets Not Reportable 01/19/21 05:11 Plt Clumps, EDTA Not Reportable 01/19/21 05:11 Large Platelets Not Reportable 01/19/21 05:11 Giant Platelets Not Reportable 01/19/21 05:11 Platelet Satelliting Not Reportable 01/19/21 05:11 Plt Morphology Comment Not Reportable 01/19/21 05:11 RBC Morphology Not Reportable 01/19/21 05:11 Dimorphic RBCs Not Reportable 01/19/21 05:11 Polychromasia Not Reportable 01/19/21 05:11 Hypochromasia 1+ 01/19/21 05:11 Poikilocytosis Not Reportable 01/19/21 05:11 Anisocytosis Not Reportable 01/19/21 05:11 Microcytosis Not Reportable 01/19/21 05:11 Macrocytosis Not Reportable 01/19/21 05:11 Spherocytes Not Reportable 01/19/21 05:11 Pappenheimer Bodies Not Reportable 01/19/21 05:11 Sickle Cells Not Reportable 01/19/21 05:11 Target Cells Not Reportable 01/19/21 05:11 Tear Drop Cells Not Reportable 01/19/21 05:11 Ovalocytes Not Reportable 01/19/21 05:11 Helmet Cells Not Reportable 01/19/21 05:11 [place] Bodies Not Reportable 01/19/21 05:11 [place] Rings Not Reportable 01/19/21 05:11 [place] Cells Not Reportable 01/19/21 05:11 Bite Cells Not Reportable 01/19/21 05:11 Crenated Cell Not Reportable 01/19/21 05:11 Elliptocytes Not Reportable 01/19/21 05:11 Acanthocytes (Spur) Not Reportable 01/19/21 05:11 Rouleaux Not Reportable 01/19/21 05:11 Hemoglobin C Crystals Not Reportable 01/19/21 05:11 Schistocytes Not Reportable 01/19/21 05:11 Malaria parasites Not Reportable 01/19/21 05:11 Chai Bodies Not Reportable 01/19/21 05:11 Hem Pathologist Commnt No 01/19/21 05:11 D-Dimer 1058.54 ng/mlDDU (0-234) H 01/17/21 17:46 ABG pH 7.461 pH Units (7.350-7.450) H 01/18/21 17:18 ABG pCO2 36.6 mm Hg 01/18/21 17:18 ABG pO2 53.1 mm Hg (80.0-90.0) L 01/18/21 17:18 ABG HCO3 25.5 mmol/L (20.0-26.0) 01/18/21 17:18 ABG O2 Saturation 89.4 % (95.0-99.0) L 01/18/21 17:18 ABG O2 Content 15.1 (0.0-44) 01/18/21 17:18 ABG Base Excess 1.9 mmol/L (-2.0-3.0) 01/18/21 17:18 ABG Hemoglobin 12.2 gm/dl (12.0-16.0) 01/18/21 17:18 ABG Carboxyhemoglobin 1.2 % (0.0-5.0) 01/18/21 17:18 ABG Methemoglobin 0.5 % (0.0-1.5) 01/18/21 17:18 Oxyhemoglobin 88.0 % (95.0-99.0) L 01/18/21 17:18 FiO2 100 % 01/18/21 17:18 Sodium 143 mmol/L (137-145) 01/20/21 13:54 Potassium 4.0 mmol/L (3.6-5.0) 01/20/21 13:54 Chloride 101.5 mmol/L (98-107) 01/20/21 13:54 Carbon Dioxide 28 mmol/L (22-30) 01/20/21 13:54 Anion Gap 18 mmol/L 01/20/21 13:54 BUN 31 mg/dL (7-17) H 01/20/21 13:54 Creatinine 0.7 mg/dL (0.6-1.2) 01/20/21 13:54 Estimated GFR > 60 ml/min 01/20/21 13:54 BUN/Creatinine Ratio 44 % 01/20/21 13:54 Glucose 396 mg/dL (65-100) H 01/20/21 13:54 POC Glucose 365 mg/dL (70-105) H 01/20/21 12:14 Lactic Acid 1.70 mmol/L (0.7-2.0) 01/17/21 16:41 Calcium 9.1 mg/dL (8.4-10.2) 01/20/21 13:54 Ferritin 668.4 ng/mL (10.0-200.0) H 01/17/21 17:46 Total Bilirubin 0.30 mg/dL (0.1-1.2) 01/20/21 13:54 AST 54 units/L (5-40) H 01/20/21 13:54 ALT 44 units/L (7-56) 01/20/21 13:54 Alkaline Phosphatase 108 units/L (35-129) 01/20/21 13:54 Lactate Dehydrogenase 519 units/L (91-180) H 01/17/21 17:46 Troponin T < 0.010 ng/mL (0.00-0.029) 01/17/21 16:41 C-Reactive Protein 19.20 mg/dL (0.00-1.30) H 01/17/21 17:46 NT-Pro-B Natriuret Pep 40.88 pg/mL (0-900) 01/17/21 16:41 Total Protein 8.3 g/dL (6.3-8.2) H 01/20/21 13:54 Albumin 3.1 g/dL (3.9-5) L 01/20/21 13:54 Albumin/Globulin Ratio 0.6 % 01/20/21 13:54 Procalcitonin 0.39 ng/mL (<0.15) 01/17/21 17:46 Coronavirus (PCR) Positive (Negative) A 01/17/21 09:25 Microbiology: Microbiology 01/17/21 16:41 Peripheral/Venous Blood Culture - Preliminary NO GROWTH AFTER 48 HOURS 01/17/21 16:47 Peripheral/Venous Blood Culture - Preliminary NO GROWTH AFTER 48 HOURS Estrada/IV: Voiding Method External Female Catheter Active Medications - Current Medications Current Medications: Generic Name Dose Route Start Last Admin Trade Name Freq PRN Reason Stop Dose Admin Acetaminophen 650 mg 01/18/21 00:36 01/18/21 17:32 Acetaminophen 325 Mg Tab PO 650 mg Q4H PRN Administration Pain MILD(1-3)/Fever >100.5/PAN Albuterol/Ipratropium 1 ampul 01/18/21 02:00 01/20/21 14:22 Ipratropium/Albuterol Sulfate 3 Ml Ampul.Neb IH 1 ampul Q6HRT PJ Administration Dexamethasone 6 mg 01/20/21 10:00 01/20/21 10:48 Dexamethasone 4 Mg/Ml Vial IV 01/28/21 22:01 6 mg BID PJ Administration Famotidine 20 mg 01/18/21 10:00 01/20/21 10:48 Famotidine 20 Mg Tab PO Not Given BID PJ Heparin Sodium (Porcine) 5,000 unit 01/18/21 06:00 01/20/21 14:34 Heparin 5,000 Unit/1 Ml Vial SUB-Q 5,000 unit Q8HR PJ Administration Hydralazine HCl 10 mg 01/18/21 00:38 Hydralazine 20 Mg/1 Ml Inj IV Q6H PRN htn Hydromorphone HCl 0.5 mg 01/20/21 11:00 Hydromorphone 1 Mg/1 Ml Inj IV Q6H PRN Pain , Severe (7-10) Ceftriaxone Sodium 2 gm in 100 mls @ 200 mls/hr 01/18/21 22:00 01/19/21 21:45 Rocephin/Ns 2 Gm/100 Ml IV 01/22/21 22:29 200 mls/hr Q24H PJ Administration Protocol Azithromycin 500 mg in 250 mls @ 250 mls/hr 01/18/21 22:00 01/19/21 22:18 Zithromax/Ns IV 01/22/21 22:59 250 mls/hr Q24H PJ Administration Protocol REMDESIVIR 100 mg/ Sodium 250 mls @ 500 mls/hr 01/19/21 21:00 01/19/21 21:15 Chloride IV 01/22/21 21:29 500 mls/hr Q24HR@2100 PJ Administration Insulin Glargine 20 units 01/20/21 22:00 Insulin Glargine 100 Units/Ml SUB-Q QHS PJ Insulin Human Lispro 0 unit 01/19/21 11:30 01/20/21 11:38 Insulin Lispro 100 Unit/Ml SUB-Q 10 unit ACHS PJ Administration Protocol Ondansetron HCl 4 mg 01/18/21 00:36 Ondansetron 4 Mg/2 Ml Inj IV Q8H PRN Nausea And Vomiting Sodium Chloride 10 ml 01/18/21 10:00 01/20/21 10:49 Sodium Chloride 0.9% 10 Ml Flush Syringe IV 10 ml BID PJ Administration Sodium Chloride 10 ml 01/18/21 00:36 Sodium Chloride 0.9% 10 Ml Flush Syringe IV PRN PRN LINE FLUSH Sodium Chloride 50 ml 01/18/21 21:00 01/19/21 21:14 Sodium Chloride 0.9% 50 Ml Ivpb IV 01/22/21 21:01 50 ml Q24HR@2100 PJ Administration Ziprasidone 10 mg 01/20/21 10:57 Ziprasidone Mesylate 20 Mg Vial IM Q6H PRN AGITATION <DANE SEGURA - Last Filed: 02/10/21 17:36> Assessment and Plan Assessment and plan: I saw and evaluated the patient. I agree with the findings and the plan of care as documented in the Nurse Practitioner's~note, with the following corrections and additions. Hospitalist Physical - Constitutional Vitals: Temp Pulse Resp BP Pulse Ox 98.8 F 106 H 29 H 132/78 93 02/10/21 12:00 02/10/21 15:00 02/10/21 15:00 02/10/21 15:00 02/10/21 15:00 HEART Score - HEART Score Troponin: Troponin T < 0.010 ng/mL (0.00-0.029) 01/17/21 16:41 Results - Labs CBC & Chem 7: 02/08/21 04:46 02/09/21 04:24 Labs: Laboratory Last Values WBC 4.2 K/mm3 (4.5-11.0) L 02/08/21 04:46 RBC 4.07 M/mm3 (3.65-5.03) 02/08/21 04:46 Hgb 9.7 gm/dl (10.1-14.3) L 02/08/21 04:46 Hct 31.8 % (30.3-42.9) 02/08/21 04:46 MCV 78 fl (79-97) L 02/08/21 04:46 MCH 24 pg (28-32) L 02/08/21 04:46 MCHC 31 % (30-34) 02/08/21 04:46 RDW 17.9 % (13.2-15.2) H 02/08/21 04:46 Plt Count 110 K/mm3 (140-440) L 02/08/21 04:46 Lymph % (Auto) 44.9 % (13.4-35.0) H 02/02/21 07:56 [place] % (Auto) 9.2 % (0.0-7.3) H 02/02/21 07:56 Eos % (Auto) 3.6 % (0.0-4.3) 02/02/21 07:56 Baso % (Auto) 0.3 % (0.0-1.8) 02/02/21 07:56 Lymph # (Auto) 1.4 K/mm3 (1.2-5.4) 02/02/21 07:56 [place] # (Auto) 0.3 K/mm3 (0.0-0.8) 02/02/21 07:56 Eos # (Auto) 0.1 K/mm3 (0.0-0.4) 02/02/21 07:56 Baso # (Auto) 0.0 K/mm3 (0.0-0.1) 02/02/21 07:56 Add Manual Diff Complete 01/19/21 05:11 Total Counted 100 01/19/21 05:11 Seg Neutrophils % 42.0 % (40.0-70.0) 02/02/21 07:56 Seg Neuts % (Manual) 88.0 % (40.0-70.0) H 01/19/21 05:11 Lymphocytes % (Manual) 10.0 % (13.4-35.0) L 01/19/21 05:11 Monocytes % (Manual) 2.0 % (0.0-7.3) 01/19/21 05:11 Nucleated RBC % Not Reportable 01/19/21 05:11 Seg Neutrophils # 1.3 K/mm3 (1.8-7.7) L 02/02/21 07:56 Seg Neutrophils # Man 12.5 K/mm3 (1.8-7.7) H 01/19/21 05:11 Band Neutrophils # 0.0 K/mm3 01/19/21 05:11 Lymphocytes # (Manual) 1.4 K/mm3 (1.2-5.4) 01/19/21 05:11 Abs React Lymphs (Man) 0.0 K/mm3 01/19/21 05:11 Monocytes # (Manual) 0.3 K/mm3 (0.0-0.8) 01/19/21 05:11 Eosinophils # (Manual) 0.0 K/mm3 (0.0-0.4) 01/19/21 05:11 Basophils # (Manual) 0.0 K/mm3 (0.0-0.1) 01/19/21 05:11 Metamyelocytes # 0.0 K/mm3 01/19/21 05:11 Myelocytes # 0.0 K/mm3 01/19/21 05:11 Promyelocytes # 0.0 K/mm3 01/19/21 05:11 Blast Cells # 0.0 K/mm3 01/19/21 05:11 WBC Morphology Not Reportable 01/19/21 05:11 Hypersegmented Neuts Not Reportable 01/19/21 05:11 Hyposegmented Neuts Not Reportable 01/19/21 05:11 Hypogranular Neuts Not Reportable 01/19/21 05:11 Smudge Cells Not Reportable 01/19/21 05:11 Toxic Granulation Not Reportable 01/19/21 05:11 Toxic Vacuolation Not Reportable 01/19/21 05:11 Dohle Bodies Not Reportable 01/19/21 05:11 Pelger-Huet Anomaly Not Reportable 01/19/21 05:11 Inder Rods Not Reportable 01/19/21 05:11 Platelet Estimate Consistent w auto 01/19/21 05:11 Clumped Platelets Not Reportable 01/19/21 05:11 Plt Clumps, EDTA Not Reportable 01/19/21 05:11 Large Platelets Not Reportable 01/19/21 05:11 Giant Platelets Not Reportable 01/19/21 05:11 Platelet Satelliting Not Reportable 01/19/21 05:11 Plt Morphology Comment Not Reportable 01/19/21 05:11 RBC Morphology Not Reportable 01/19/21 05:11 Dimorphic RBCs Not Reportable 01/19/21 05:11 Polychromasia Not Reportable 01/19/21 05:11 Hypochromasia 1+ 01/19/21 05:11 Poikilocytosis Not Reportable 01/19/21 05:11 Anisocytosis Not Reportable 01/19/21 05:11 Microcytosis Not Reportable 01/19/21 05:11 Macrocytosis Not Reportable 01/19/21 05:11 Spherocytes Not Reportable 01/19/21 05:11 Pappenheimer Bodies Not Reportable 01/19/21 05:11 Sickle Cells Not Reportable 01/19/21 05:11 Target Cells Not Reportable 01/19/21 05:11 Tear Drop Cells Not Reportable 01/19/21 05:11 Ovalocytes Not Reportable 01/19/21 05:11 Helmet Cells Not Reportable 01/19/21 05:11 [place] Bodies Not Reportable 01/19/21 05:11 [place] Rings Not Reportable 01/19/21 05:11 [place] Cells Not Reportable 01/19/21 05:11 Bite Cells Not Reportable 01/19/21 05:11 Crenated Cell Not Reportable 01/19/21 05:11 Elliptocytes Not Reportable 01/19/21 05:11 Acanthocytes (Spur) Not Reportable 01/19/21 05:11 Rouleaux Not Reportable 01/19/21 05:11 Hemoglobin C Crystals Not Reportable 01/19/21 05:11 Schistocytes Not Reportable 01/19/21 05:11 Malaria parasites Not Reportable 01/19/21 05:11 Chai Bodies Not Reportable 01/19/21 05:11 Hem Pathologist Commnt No 01/19/21 05:11 PT 13.6 Sec. (12.2-14.9) 02/04/21 14:52 INR 1.06 (0.87-1.13) 02/04/21 14:52 APTT 30.7 Sec. (24.2-36.6) 02/04/21 14:52 D-Dimer 1884.49 ng/mlDDU (0-234) H 01/28/21 08:46 ABG pH 7.309 pH Units (7.350-7.450) L 05/17/21 09:30 ABG pCO2 59.4 mm Hg 02/10/21 09:30 ABG pO2 71.2 mm Hg (80.0-90.0) L 02/10/21 09:30 ABG HCO3 29.1 mmol/L (20.0-26.0) H 02/10/21 09:30 ABG O2 Saturation 92.4 % (95.0-99.0) L 02/10/21 09:30 ABG O2 Content 14.2 (0.0-44) 02/10/21 09:30 ABG Base Excess 1.8 mmol/L (-2.0-3.0) 02/10/21 09:30 ABG Hemoglobin 11.2 gm/dl (12.0-16.0) L 02/10/21 09:30 ABG Carboxyhemoglobin 1.8 % (0.0-5.0) 02/10/21 09:30 ABG Methemoglobin 0.6 % (0.0-1.5) 02/10/21 09:30 Oxyhemoglobin 90.2 % (95.0-99.0) L 02/10/21 09:30 FiO2 100 % 02/10/21 09:30 Sodium 142 mmol/L (137-145) 02/09/21 04:24 Potassium 3.9 mmol/L (3.6-5.0) 02/09/21 04:24 Chloride 105.5 mmol/L (98-107) 02/09/21 04:24 Carbon Dioxide 29 mmol/L (22-30) 02/09/21 04:24 Anion Gap 11 mmol/L 02/09/21 04:24 BUN 11 mg/dL (7-17) 02/09/21 04:24 Creatinine 0.4 mg/dL (0.6-1.2) L 02/09/21 04:24 Estimated GFR > 60 ml/min 02/09/21 04:24 BUN/Creatinine Ratio 28 % 02/09/21 04:24 Glucose 205 mg/dL (65-100) H 02/09/21 04:24 POC Glucose 257 mg/dL (70-105) H 02/10/21 11:45 Lactic Acid 1.70 mmol/L (0.7-2.0) 01/17/21 16:41 Calcium 8.1 mg/dL (8.4-10.2) L 02/09/21 04:24 Ferritin 797.7 ng/mL (10.0-200.0) H 01/28/21 08:46 Total Bilirubin 0.30 mg/dL (0.1-1.2) 01/21/21 11:29 AST 34 units/L (5-40) 01/21/21 11:29 ALT 38 units/L (7-56) 01/21/21 11:29 Alkaline Phosphatase 117 units/L (35-129) 01/21/21 11:29 Ammonia 43.0 umol/L (25-60) 02/04/21 14:52 Lactate Dehydrogenase 556 units/L (91-180) H 01/28/21 08:46 Troponin T < 0.010 ng/mL (0.00-0.029) 01/17/21 16:41 C-Reactive Protein 0.20 mg/dL (0.00-1.30) 01/28/21 08:46 NT-Pro-B Natriuret Pep 40.88 pg/mL (0-900) 01/17/21 16:41 Total Protein 7.3 g/dL (6.3-8.2) 01/21/21 11:29 Albumin 3.4 g/dL (3.9-5) L 01/21/21 11:29 Albumin/Globulin Ratio 0.9 % 01/21/21 11:29 Procalcitonin 0.39 ng/mL (<0.15) 01/17/21 17:46 Coronavirus (PCR) Positive (Negative) A 01/17/21 09:25 Estrada/IV: Voiding Method External Female Catheter Active Medications - Current Medications Current Medications: Generic Name Dose Route Start Last Admin Trade Name Freq PRN Reason Stop Dose Admin Acetaminophen 650 mg 01/18/21 00:36 01/22/21 23:46 Acetaminophen 325 Mg Tab PO 650 mg Q4H PRN Administration Pain MILD(1-3)/Fever >100.5/PAN Albuterol/Ipratropium 1 ampul 02/01/21 14:00 02/10/21 14:35 Ipratropium/Albuterol Sulfate 3 Ml Ampul.Neb IH Not Given TIDRT PJ Apixaban 2.5 mg 02/04/21 22:00 02/10/21 00:37 Apixaban 2.5 Mg Tab PO 2.5 mg Q12HR PJ Administration Protocol Aripiprazole 15 mg 01/31/21 13:00 02/09/21 09:28 Aripiprazole 15 Mg Tab PO 15 mg QDAY PJ Administration Ascorbic Acid 1,000 mg 02/04/21 10:00 02/10/21 00:40 Ascorbic Acid 500 Mg Tab PO 1,000 mg BID PJ Administration Cholecalciferol 5,000 unit 02/04/21 10:00 02/09/21 09:28 Cholecalciferol (Vit D3) 5,000 Unit Tab PO 5,000 unit DAILY PJ Administration Divalproex Sodium 500 mg 01/31/21 12:00 02/09/21 09:31 Divalproex Er 500 Mg Tab PO 500 mg QDAY PJ Administration Famotidine 20 mg 01/18/21 10:00 02/10/21 00:40 Famotidine 20 Mg Tab PO 20 mg BID PJ Administration Furosemide 40 mg 02/10/21 10:00 02/10/21 09:45 Furosemide 40 Mg/4 Ml Inj IV 02/12/21 10:01 40 mg QDAY PJ Administration Furosemide 40 mg 02/10/21 20:00 Furosemide 40 Mg/4 Ml Inj IV 02/10/21 20:01 ONCE ONE Hydralazine HCl 10 mg 01/18/21 00:38 01/24/21 23:12 Hydralazine 20 Mg/1 Ml Inj IV 10 mg Q6H PRN Administration htn Hydromorphone HCl 0.5 mg 01/20/21 11:00 Hydromorphone 1 Mg/1 Ml Inj IV Q6H PRN Pain , Severe (7-10) Hydrophilic Ointment 1 applic 02/03/21 12:00 Petrolatum,White 30 Gm Oint TP PRN PRN Skin Irritation Dexmedetomidine HCl 400 mcg/ 104 mls @ 4.846 mls/hr 02/10/21 11:00 02/10/21 12:18 Sodium Chloride IV 0.2 mcg/kg/hr TITRATE PJ 4.846 mls/hr Administration Protocol 0.2 MCG/KG/HR Insulin Glargine 20 units 01/20/21 22:00 02/10/21 00:39 Insulin Glargine 100 Units/Ml SUB-Q 20 units QHS PJ Administration Insulin Human Lispro 0 unit 02/01/21 11:30 02/10/21 12:19 Insulin Lispro 100 Unit/Ml SUB-Q Not Given ACHS [facility] Protocol Methylprednisolone Sodium Succinate 40 mg 02/10/21 14:00 Methylprednisolone Sod Succinate 40 Mg/1 Ml Inj IV Q8HR PJ Metoprolol Tartrate 12.5 mg 02/01/21 12:00 02/10/21 00:39 Metoprolol Tartrate 25 Mg Tab PO 12.5 mg BID PJ Administration Mirtazapine 7.5 mg 01/21/21 22:00 02/10/21 00:40 Mirtazapine 15 Mg Tab PO 7.5 mg QHS [facility] Administration Ondansetron HCl 4 mg 01/18/21 00:36 Ondansetron 4 Mg/2 Ml Inj IV Q8H PRN Nausea And Vomiting Oxymetazoline HCl 2 spray 02/03/21 12:00 02/03/21 13:17 Oxymetazoline 0.05% Nasal [place] NS 2 spray Q12H PRN Administration Congestion Paliperidone 6 mg 01/31/21 13:00 02/09/21 09:28 Paliperidone Er 3 Mg Tab PO 6 mg QDAY PJ Administration Sodium Chloride 10 ml 01/18/21 10:00 02/10/21 12:18 Sodium Chloride 0.9% 10 Ml Flush Syringe IV 10 ml BID PJ Administration Sodium Chloride 10 ml 01/18/21 00:36 Sodium Chloride 0.9% 10 Ml Flush Syringe IV PRN PRN LINE FLUSH Zinc Sulfate 220 mg 02/04/21 10:00 02/09/21 09:28 Zinc Sulfate 220 Mg Cap PO 220 mg QDAY PJ Administration Nutrition/Malnutrition Assess - Dietary Evaluation Nutrition/Malnutrition Findings: Nutrition Notes Start: 01/24/21 10:40 Freq: Status: Active Protocol: Document 02/07/21 12:55 AL (Rec: 02/07/21 12:57 AL [id number]) Co-Sign 02/07/21 12:55 CW Nutrition Notes Need for Assessment generated from: lawyers Initial or Follow up Reassessment Current Diagnosis Respiratory Failure Other Pertinent Diagnosis pneu, COVID-19(+), AMS Current Diet Cardiac diet with Consistent CHO modifications Labs/Tests BG 267 Pertinent Medications Lasix Height 5 ft 4 in Weight 93.2 kg [place] Body Weight (kg) 54.54 BMI 35.2 Weight Status Obese Subjective/Other Information MD order for TF. Pt not receiving TF and ate breakfast at 100% per RN. Pt consumes 50% ONS. RN screen for skin risk. Miol score 16. Percent of energy/protein needs met: 67%/64% (only breakfast) Burn Absent Trauma Absent GI Symptoms None Current % PO Fair (50-74%) Minimum of two criteria No Energy Intake (non-severe) <75% Estimated Energy Requirement >7 days #1 Nutrition Diagnosis Inadequate oral intake Etiology PO intakes vary As Evidenced by Signs and Symptoms Per RN, pt has AMS and eats occasionally Is patient on ventilator? No Is Patient Ambulatory and/or Out of Bed No REE-([facility]-confined to bed) [phone] Kcal/Kg value to use for calculation 15 Approximate Energy Requirements Using 1398 kcal/Kg Calculation Used for Recommendations Kcal/kg Additional Notes PRO needs: 59-74g (0.8-1g/kg AdBW 74 kg) Fluid needs: 1 mL/kcal or per MD Nutrition Intervention Change Diet Order: Continue current Add Supplement/Snack (indicate name/kcal Glucerna BID /protein ) Provides kCal: 440 Provides Protein (gm) 20 Goal #1 Meet at least 75% of energy and protein needs via PO and ONS intakes Anticipated Discharge Needs: Cardiac/ Consistent CHO Follow-Up By: 02/11/21 Additional Comments FU for stable PO intakes.
[2021-01-20] MEDS: cefTRIAXone/NS 2 GM/100 ML 2 GM/100 ML BAG IV SCH (21:38)
[2021-01-20] MEDS: AZITHROMYCIN/NS 500 MG/250 ML 500 MG/250 ML BAG IV SCH (21:39)
[2021-01-20] MEDS: INSULIN GLARGINE 100 UNITS/ML SUB-Q SCH (21:48)
[2021-01-20] MEDS: REMDESIVIR 100 MG in SODIUM CHLORIDE 0.9% 250ML 250 ML IV SCH (21:48)
[2021-01-20] MEDS: SODIUM CHLORIDE 0.9% 50 ML IVPB IV SCH (21:48)
[2021-01-21] MEDS: IPRATROPIUM/ALBUTEROL SULFATE 3 ML AMPUL.NEB IH SCH ×4 (01:37→20:19)
[2021-01-21] MEDS: ZIPRASIDONE MESYLATE 20 MG VIAL IM PRN ×2 (04:00→21:29)
[2021-01-21 05:27] LABS: Alanine Aminotransferase 38 units/L (7-56); BUN/Creatinine Ratio 46; Blood Urea Nitrogen 41 mg/dL (7-17); Hemolysis Index 1
[2021-01-21] MEDS: HEPARIN 5,000 UNIT/1 ML VIAL SUB-Q SCH (06:28)
[2021-01-21] MEDS: dexAMETHasone 4 MG/ML VIAL IV SCH ×2 (10:45→22:26)
[2021-01-21] MEDS: ENOXAPARIN 100 MG/1 ML INJ SUB-Q SCH ×2 (10:46→22:26)
--- NOTE | 2021-01-21 11:31 | Consultation ---
History of Present Illness - Reason for Consult Consult date: 01/21/21 Reason for consult: agitation - History of Present Psychiatric Illness Per nurse caring for this patient, the patient has been agitated, and irritable. She says the patient has grandiose delusions, and flight of ideas. The patient has been noncompliant and attempting to pull off bipap. She says they had to medicate the patient with geodon. I was unable to actually speak with the patient to day, she was somnolent. PAST PSYCHIATRIC HISTORY: Unable to obtain PAST MEDICAL HISTORY: None reported Family Psychiatric History: None reported or documented SOCIAL HISTORY unable to obtain REVIEW OF SYSTEMS on Bipap MENTAL STATUS EXAMINATION Unable to obtain Assessment and Plan (1) Schizophrenia Current Visit: Yes Status: Acute Treatment Plan Start Haldol 0.5mg po BID Start Mirtazepin 7.5mg po daily sitter: defer to primary Medical: per primary Disposition: Do not recommend acute psychiatric inpatient treatment Will follow. Thank you for this consult Case staffed with Dr. Wallace Medications and Allergies Allergies Allergy/AdvReac Type Severity Reaction Status Date / Time No Known Allergies Allergy Verified 01/18/21 00:44 Active Meds: Active Medications Acetaminophen (Acetaminophen 325 Mg Tab) 650 mg PO Q4H PRN PRN Reason: Pain MILD(1-3)/Fever >100.5/PAN Last Admin: 01/18/21 17:32 Dose: 650 mg Documented by: Albuterol/Ipratropium (Ipratropium/Albuterol Sulfate 3 Ml Ampul.Neb) 1 ampul IH Q6HRT [facility] Last Admin: 01/21/21 08:36 Dose: 1 ampul Documented by: Dexamethasone (Dexamethasone 4 Mg/Ml Vial) 6 mg IV BID [facility] Stop: 01/28/21 22:01 Last Admin: 01/20/21 21:37 Dose: 6 mg Documented by: Enoxaparin Sodium (Enoxaparin 100 Mg/1 Ml Inj) 100 mg 1 mg/kg (100 mg) SUB-Q Q12HR [facility]; Protocol Famotidine (Famotidine 20 Mg Tab) 20 mg PO BID [facility] Last Admin: 01/20/21 21:38 Dose: 20 mg Documented by: Hydralazine HCl (Hydralazine 20 Mg/1 Ml Inj) 10 mg IV Q6H PRN PRN Reason: htn Hydromorphone HCl (Hydromorphone 1 Mg/1 Ml Inj) 0.5 mg IV Q6H PRN PRN Reason: Pain , Severe (7-10) Ceftriaxone Sodium (Rocephin/Ns 2 Gm/100 Ml) 2 gm in 100 mls @ 200 mls/hr IV Q24H [facility]; Protocol Stop: 01/22/21 22:29 Last Admin: 01/20/21 21:38 Dose: 200 mls/hr Documented by: Azithromycin (Zithromax/Ns) 500 mg in 250 mls @ 250 mls/hr IV Q24H [facility]; Protocol Stop: 01/22/21 22:59 Last Admin: 01/20/21 21:39 Dose: 250 mls/hr Documented by: REMDESIVIR 100 mg/ Sodium (Chloride) 250 mls @ 500 mls/hr IV Q24HR@2100 PJ Stop: 01/22/21 21:29 Last Admin: 01/20/21 21:48 Dose: Not Given Documented by: Insulin Glargine (Insulin Glargine 100 Units/Ml) 20 units SUB-Q QHS [facility] Last Admin: 01/20/21 21:48 Dose: 20 units Documented by: Insulin Glargine (Insulin Glargine 100 Units/Ml) 10 units SUB-Q DAILY [facility] Insulin Human Lispro (Insulin Lispro 100 Unit/Ml) 0 unit SUB-Q Q4HR [facility]; Protocol Ondansetron HCl (Ondansetron 4 Mg/2 Ml Inj) 4 mg IV Q8H PRN PRN Reason: Nausea And Vomiting Sodium Chloride (Sodium Chloride 0.9% 10 Ml Flush Syringe) 10 ml IV BID [facility] Last Admin: 01/20/21 21:38 Dose: 10 ml Documented by: Sodium Chloride (Sodium Chloride 0.9% 10 Ml Flush Syringe) 10 ml IV PRN PRN PRN Reason: LINE FLUSH Sodium Chloride (Sodium Chloride 0.9% 50 Ml Ivpb) 50 ml IV Q24HR@2100 PJ Stop: 01/22/21 21:01 Last Admin: 01/20/21 21:48 Dose: Not Given Documented by: Ziprasidone (Ziprasidone Mesylate 20 Mg Vial) 10 mg IM Q6H PRN PRN Reason: AGITATION Last Admin: 01/21/21 04:00 Dose: 10 mg Documented by: Mental Status Exam - Vital signs Last Vital Signs Temp 97.5 F L 01/21/21 08:00 Pulse 83 01/21/21 09:30 Resp 16 01/21/21 09:30 BP 144/68 01/21/21 09:30 Pulse Ox 97 01/21/21 09:30 Results Result Diagrams: 01/19/21 05:11 01/21/21 04:45 Abnormal lab results 01/20/21 01/20/21 01/20/21 Range/Units 12:14 13:54 18:28 D-Dimer (0-234) ng/mlDDU Carbon Dioxide (22-30) mmol/L BUN 31 H (7-17) mg/dL Glucose 396 H (65-100) mg/dL POC Glucose 365 H 403 H (70-105) mg/dL Ferritin (10.0-200.0) ng/mL AST 54 H (5-40) units/L Lactate Dehydrogenase (91-180) units/L C-Reactive Protein (0.00-1.30) mg/dL Total Protein 8.3 H (6.3-8.2) g/dL Albumin 3.1 L (3.9-5) g/dL 01/20/21 01/21/21 01/21/21 Range/Units 21:25 04:45 04:45 D-Dimer > 42949 H (0-234) ng/mlDDU Carbon Dioxide 31 H (22-30) mmol/L BUN 41 H (7-17) mg/dL Glucose 377 H (65-100) mg/dL POC Glucose 340 H (70-105) mg/dL Ferritin (10.0-200.0) ng/mL AST (5-40) units/L Lactate Dehydrogenase (91-180) units/L C-Reactive Protein (0.00-1.30) mg/dL Total Protein 8.3 H (6.3-8.2) g/dL Albumin 3.0 L (3.9-5) g/dL 01/21/21 01/21/21 01/21/21 Range/Units 04:45 04:45 09:45 D-Dimer (0-234) ng/mlDDU Carbon Dioxide (22-30) mmol/L BUN (7-17) mg/dL Glucose (65-100) mg/dL POC Glucose 401 H (70-105) mg/dL Ferritin 1688.0 H (10.0-200.0) ng/mL AST (5-40) units/L Lactate Dehydrogenase 649 H (91-180) units/L C-Reactive Protein 17.00 H (0.00-1.30) mg/dL Total Protein (6.3-8.2) g/dL Albumin (3.9-5) g/dL All other labs normal.
[2021-01-21] MEDS: FAMOTIDINE 20 MG TAB PO SCH ×2 (11:46→22:27)
--- NOTE | 2021-01-21 12:10 | Progress Note ---
Assessment and Plan Cultures: COVID-19 PCR: Positive 01/17/2021 blood culture: No growth A/P: 55-year-old female past medical history schizophrenia admitted to hospital with COVID-19. #Severe COVID-19 pneumonia: Inflammatory markers elevated. No evidence of pulmonary embolism on CT. #Acute hypoxemic respiratory failure: secondary to COVID-19 infection. Remains on BiPAP. #Obesity Recs: -Continue Decadron, higher dose due to obesity -Continue Remdesivir, complete 5 days -s/p Actemra 01/20/2021 -Complete empiric antibiotics due to elevated procalcitonin -Anticoagulation per protocol. D-dimer significantly worse. Aiden Torres MD, FACP [facility] ([facility] O: [phone] F: [phone] Subjective Date of service: 01/21/21 Interval history: No fever. Remains on BiPAP. Got Actemra yesterday. Objective - Exam Narrative Exam: Physical Exam (reviewed in chart to minimize risk of transmission) Constitutional: deferred Head, Ears, Nose: deferred Eyes: deferred Neck: deferred Oral: deferred Cardiovascular: deferred Respiratory: deferred GI: deferred Musculoskeletal: deferred Skin: deferred Hem/Lymphatic: deferred Psych: deferred Neurological: deferred - Constitutional Vitals: Vital Signs Temp Pulse Resp BP Pulse Ox 97.5 F L 93 H 22 192/78 100 01/21/21 08:00 01/21/21 11:30 01/21/21 11:30 01/21/21 11:30 01/21/21 11:30 Temperature -Last 24 Hours Temperature 97.5 F Temperature 97.4 F Temperature 98.9 F Temperature 97.9 F Temperature 98.3 F Temperature 97.9 F - Labs CBC & Chem 7: 01/19/21 05:11 01/21/21 04:45 Labs: Abnormal lab results 01/20/21 01/20/21 01/20/21 Range/Units 12:14 13:54 18:28 D-Dimer (0-234) ng/mlDDU Carbon Dioxide (22-30) mmol/L BUN 31 H (7-17) mg/dL Glucose 396 H (65-100) mg/dL POC Glucose 365 H 403 H (70-105) mg/dL Ferritin (10.0-200.0) ng/mL AST 54 H (5-40) units/L Lactate Dehydrogenase (91-180) units/L C-Reactive Protein (0.00-1.30) mg/dL Total Protein 8.3 H (6.3-8.2) g/dL Albumin 3.1 L (3.9-5) g/dL 01/20/21 01/21/21 01/21/21 Range/Units 21:25 04:45 04:45 D-Dimer > 47753 H (0-234) ng/mlDDU Carbon Dioxide 31 H (22-30) mmol/L BUN 41 H (7-17) mg/dL Glucose 377 H (65-100) mg/dL POC Glucose 340 H (70-105) mg/dL Ferritin (10.0-200.0) ng/mL AST (5-40) units/L Lactate Dehydrogenase (91-180) units/L C-Reactive Protein (0.00-1.30) mg/dL Total Protein 8.3 H (6.3-8.2) g/dL Albumin 3.0 L (3.9-5) g/dL 01/21/21 01/21/21 01/21/21 Range/Units 04:45 04:45 09:45 D-Dimer (0-234) ng/mlDDU Carbon Dioxide (22-30) mmol/L BUN (7-17) mg/dL Glucose (65-100) mg/dL POC Glucose 401 H (70-105) mg/dL Ferritin 1688.0 H (10.0-200.0) ng/mL AST (5-40) units/L Lactate Dehydrogenase 649 H (91-180) units/L C-Reactive Protein 17.00 H (0.00-1.30) mg/dL Total Protein (6.3-8.2) g/dL Albumin (3.9-5) g/dL
[2021-01-21 12:21] LABS: Alanine Aminotransferase 38 units/L (7-56); Albumin 3.4 g/dL (3.9-5); BUN/Creatinine Ratio 50; Blood Urea Nitrogen 40 mg/dL (7-17); Calcium 8.9 mg/dL (8.4-10.2); Hemolysis Index 23
[2021-01-21] MEDS: INSULIN GLARGINE 100 UNITS/ML SUB-Q SCH ×2 (12:28→22:27)
--- NOTE | 2021-01-21 14:01 | Progress Note ---
Assessment and Plan - Patient Problems (1) Acute respiratory failure due to COVID-19 Current Visit: Yes Status: Acute (2) Acute respiratory failure with hypoxia Current Visit: Yes Status: Acute (3) COVID-19 Current Visit: Yes Status: Acute (4) Hypoxia Current Visit: Yes Status: Acute (5) Pneumonia Current Visit: Yes Status: Acute (6) Respiratory failure Current Visit: Yes Status: Acute (7) Schizophrenia Current Visit: Yes Status: Acute Subjective Interval history: attempting to wean of bipap on hiflo o2 40l 85% Objective Vital Signs - 12hr 01/21/21 01/21/21 01/21/21 02:16 02:30 02:46 Temperature Pulse Rate 78 77 81 Pulse Rate [ Anterior Bilateral Throughout] Pulse Rate [ From Monitor] Respiratory 22 20 19 Rate Respiratory Rate [Anterior Bilateral Throughout] Blood Pressure 111/50 111/50 111/50 O2 Sat by Pulse 94 91 95 Oximetry 01/21/21 01/21/21 01/21/21 03:00 03:15 03:30 Temperature Pulse Rate 105 H 96 H 84 Pulse Rate [ Anterior Bilateral Throughout] Pulse Rate [ From Monitor] Respiratory 26 H 16 18 Rate Respiratory Rate [Anterior Bilateral Throughout] Blood Pressure 111/50 131/69 147/71 O2 Sat by Pulse 91 91 95 Oximetry 01/21/21 01/21/21 01/21/21 03:45 03:46 04:00 Temperature 97.4 F L Pulse Rate 86 86 Pulse Rate [ Anterior Bilateral Throughout] Pulse Rate [ 85 From Monitor] Respiratory 18 20 Rate Respiratory Rate [Anterior Bilateral Throughout] Blood Pressure 120/68 109/60 O2 Sat by Pulse 94 95 Oximetry 01/21/21 01/21/21 01/21/21 04:16 04:27 04:30 Temperature Pulse Rate 85 75 73 Pulse Rate [ Anterior Bilateral Throughout] Pulse Rate [ From Monitor] Respiratory 17 23 13 Rate Respiratory Rate [Anterior Bilateral Throughout] Blood Pressure 91/59 91/59 91/59 O2 Sat by Pulse 94 94 94 Oximetry 01/21/21 01/21/21 01/21/21 04:46 05:00 05:16 Temperature Pulse Rate 78 88 85 Pulse Rate [ Anterior Bilateral Throughout] Pulse Rate [ From Monitor] Respiratory 28 H 23 26 H Rate Respiratory Rate [Anterior Bilateral Throughout] Blood Pressure 87/50 87/50 123/72 O2 Sat by Pulse 94 96 93 Oximetry 01/21/21 01/21/21 01/21/21 05:30 05:46 06:00 Temperature Pulse Rate 85 86 89 Pulse Rate [ Anterior Bilateral Throughout] Pulse Rate [ From Monitor] Respiratory 31 H 20 20 Rate Respiratory Rate [Anterior Bilateral Throughout] Blood Pressure 123/72 68/37 121/77 O2 Sat by Pulse 94 93 92 Oximetry 01/21/21 01/21/21 01/21/21 06:16 06:30 06:46 Temperature Pulse Rate 95 H 91 H 77 Pulse Rate [ Anterior Bilateral Throughout] Pulse Rate [ From Monitor] Respiratory 19 16 19 Rate Respiratory Rate [Anterior Bilateral Throughout] Blood Pressure 130/83 130/83 114/67 O2 Sat by Pulse 91 90 91 Oximetry 01/21/21 01/21/21 01/21/21 07:00 07:16 07:30 Temperature Pulse Rate 91 H 91 H 76 Pulse Rate [ Anterior Bilateral Throughout] Pulse Rate [ From Monitor] Respiratory 21 20 19 Rate Respiratory Rate [Anterior Bilateral Throughout] Blood Pressure 114/67 123/81 123/81 O2 Sat by Pulse 90 91 89 Oximetry 01/21/21 01/21/21 01/21/21 07:46 08:00 08:16 Temperature 97.5 F L Pulse Rate 87 93 H 93 H Pulse Rate [ Anterior Bilateral Throughout] Pulse Rate [ 95 H From Monitor] Respiratory 19 20 19 Rate Respiratory Rate [Anterior Bilateral Throughout] Blood Pressure 143/79 143/79 96/54 O2 Sat by Pulse 90 91 90 Oximetry 01/21/21 01/21/21 01/21/21 08:30 08:36 08:46 Temperature Pulse Rate 92 H 85 96 H Pulse Rate [ 85 Anterior Bilateral Throughout] Pulse Rate [ From Monitor] Respiratory 21 22 19 Rate Respiratory 22 Rate [Anterior Bilateral Throughout] Blood Pressure 96/54 144/68 96/54 O2 Sat by Pulse 93 97 Oximetry 01/21/21 01/21/21 01/21/21 09:00 09:16 09:30 Temperature Pulse Rate 85 84 83 Pulse Rate [ Anterior Bilateral Throughout] Pulse Rate [ From Monitor] Respiratory 17 16 16 Rate Respiratory Rate [Anterior Bilateral Throughout] Blood Pressure 96/54 144/68 144/68 O2 Sat by Pulse 98 96 97 Oximetry 01/21/21 01/21/21 01/21/21 09:46 10:00 10:16 Temperature Pulse Rate 87 93 H 87 Pulse Rate [ Anterior Bilateral Throughout] Pulse Rate [ From Monitor] Respiratory 20 19 17 Rate Respiratory Rate [Anterior Bilateral Throughout] Blood Pressure 145/72 145/72 167/79 O2 Sat by Pulse 95 97 93 Oximetry 01/21/21 01/21/21 01/21/21 10:30 10:46 11:00 Temperature Pulse Rate 88 91 H 88 Pulse Rate [ Anterior Bilateral Throughout] Pulse Rate [ From Monitor] Respiratory 20 16 19 Rate Respiratory Rate [Anterior Bilateral Throughout] Blood Pressure 167/79 168/79 168/79 O2 Sat by Pulse 97 93 97 Oximetry 01/21/21 01/21/21 01/21/21 11:16 11:30 12:59 Temperature Pulse Rate 83 93 H 96 H Pulse Rate [ Anterior Bilateral Throughout] Pulse Rate [ From Monitor] Respiratory 19 22 23 Rate Respiratory Rate [Anterior Bilateral Throughout] Blood Pressure 168/79 192/78 133/79 O2 Sat by Pulse 100 97 Oximetry Constitutional: no acute distress, alert, other (on hiflo) Eyes: non-icteric Neck: other (large in circumference) Effort: mildly labored Ascultation: Bilateral: clear CBC and BMP: 01/19/21 05:11 01/21/21 11:29 ABG, PT/INR, D-dimer: ABG ABG pH 7.461 pH Units (7.350-7.450) H 01/18/21 17:18 ABG pCO2 36.6 mm Hg 01/18/21 17:18 ABG pO2 53.1 mm Hg (80.0-90.0) L 01/18/21 17:18 ABG O2 Saturation 89.4 % (95.0-99.0) L 01/18/21 17:18 PT/INR, D-dimer D-Dimer > 21478 ng/mlDDU (0-234) H 01/21/21 04:45 Abnormal lab findings: Abnormal Labs 01/17/21 01/17/21 01/17/21 09:25 16:41 16:41 WBC RBC 5.23 H MCV 76 L MCH 24 L Lymph % (Auto) 9.4 L Lymph # (Auto) 0.8 L Seg Neutrophils % 85.4 H Seg Neuts % (Manual) Lymphocytes % (Manual) Seg Neutrophils # Man D-Dimer ABG pH ABG pO2 ABG O2 Saturation Oxyhemoglobin Sodium 128 L Chloride 90.8 L Carbon Dioxide BUN Glucose 372 H POC Glucose Calcium Ferritin AST 98 H Lactate Dehydrogenase C-Reactive Protein Total Protein Albumin 3.2 L Coronavirus (PCR) Positive A 01/17/21 01/17/21 01/17/21 17:46 17:46 17:46 WBC RBC MCV MCH Lymph % (Auto) Lymph # (Auto) Seg Neutrophils % Seg Neuts % (Manual) Lymphocytes % (Manual) Seg Neutrophils # Man D-Dimer 1058.54 H ABG pH ABG pO2 ABG O2 Saturation Oxyhemoglobin Sodium Chloride Carbon Dioxide BUN Glucose 369 H POC Glucose Calcium Ferritin 668.4 H AST Lactate Dehydrogenase 519 H C-Reactive Protein 19.20 H Total Protein Albumin Coronavirus (PCR) 01/18/21 01/18/21 01/19/21 09:01 17:18 05:11 WBC 14.2 H RBC MCV 74 L MCH 23 L Lymph % (Auto) Lymph # (Auto) Seg Neutrophils % Seg Neuts % (Manual) 88.0 H Lymphocytes % (Manual) 10.0 L Seg Neutrophils # Man 12.5 H D-Dimer ABG pH 7.461 H ABG pO2 53.1 L ABG O2 Saturation 89.4 L Oxyhemoglobin 88.0 L Sodium 132 L Chloride 93.6 L Carbon Dioxide BUN 18 H Glucose 367 H POC Glucose Calcium 7.8 L Ferritin AST Lactate Dehydrogenase C-Reactive Protein Total Protein Albumin Coronavirus (PCR) 01/19/21 01/19/21 01/19/21 05:11 11:06 14:43 WBC RBC MCV MCH Lymph % (Auto) Lymph # (Auto) Seg Neutrophils % Seg Neuts % (Manual) Lymphocytes % (Manual) Seg Neutrophils # Man D-Dimer ABG pH ABG pO2 ABG O2 Saturation Oxyhemoglobin Sodium Chloride Carbon Dioxide BUN 18 H Glucose 304 H 379 H POC Glucose 382 H Calcium 8.3 L Ferritin AST 92 H 96 H Lactate Dehydrogenase C-Reactive Protein Total Protein Albumin 3.0 L 3.0 L Coronavirus (PCR) 01/19/21 01/19/21 01/20/21 16:18 22:18 07:31 WBC RBC MCV MCH Lymph % (Auto) Lymph # (Auto) Seg Neutrophils % Seg Neuts % (Manual) Lymphocytes % (Manual) Seg Neutrophils # Man D-Dimer ABG pH ABG pO2 ABG O2 Saturation Oxyhemoglobin Sodium Chloride Carbon Dioxide BUN Glucose POC Glucose 374 H 341 H 344 H Calcium Ferritin AST Lactate Dehydrogenase C-Reactive Protein Total Protein Albumin Coronavirus (PCR) 01/20/21 01/20/21 01/20/21 07:33 12:14 13:54 WBC RBC MCV MCH Lymph % (Auto) Lymph # (Auto) Seg Neutrophils % Seg Neuts % (Manual) Lymphocytes % (Manual) Seg Neutrophils # Man D-Dimer ABG pH ABG pO2 ABG O2 Saturation Oxyhemoglobin Sodium Chloride Carbon Dioxide BUN 32 H 31 H Glucose 343 H 396 H POC Glucose 365 H Calcium Ferritin AST 57 H 54 H Lactate Dehydrogenase C-Reactive Protein Total Protein 8.3 H Albumin 2.7 L 3.1 L Coronavirus (PCR) 01/20/21 01/20/21 01/21/21 18:28 21:25 04:45 WBC RBC MCV MCH Lymph % (Auto) Lymph # (Auto) Seg Neutrophils % Seg Neuts % (Manual) Lymphocytes % (Manual) Seg Neutrophils # Man D-Dimer ABG pH ABG pO2 ABG O2 Saturation Oxyhemoglobin Sodium Chloride Carbon Dioxide 31 H BUN 41 H Glucose 377 H POC Glucose 403 H 340 H Calcium Ferritin AST Lactate Dehydrogenase C-Reactive Protein Total Protein 8.3 H Albumin 3.0 L Coronavirus (PCR) 01/21/21 01/21/21 01/21/21 04:45 04:45 04:45 WBC RBC MCV MCH Lymph % (Auto) Lymph # (Auto) Seg Neutrophils % Seg Neuts % (Manual) Lymphocytes % (Manual) Seg Neutrophils # Man D-Dimer > 33744 H ABG pH ABG pO2 ABG O2 Saturation Oxyhemoglobin Sodium Chloride Carbon Dioxide BUN Glucose POC Glucose Calcium Ferritin 1688.0 H AST Lactate Dehydrogenase 649 H C-Reactive Protein 17.00 H Total Protein Albumin Coronavirus (PCR) 01/21/21 01/21/21 09:45 11:29 WBC RBC MCV MCH Lymph % (Auto) Lymph # (Auto) Seg Neutrophils % Seg Neuts % (Manual) Lymphocytes % (Manual) Seg Neutrophils # Man D-Dimer ABG pH ABG pO2 ABG O2 Saturation Oxyhemoglobin Sodium 151 H Chloride Carbon Dioxide BUN 40 H Glucose 412 H POC Glucose 401 H Calcium Ferritin AST Lactate Dehydrogenase C-Reactive Protein Total Protein Albumin 3.4 L Coronavirus (PCR)
[2021-01-21] MEDS: INSULIN LISPRO 100 UNIT/ML SUB-Q SCH ×4 (14:28→22:29)
--- NOTE | 2021-01-21 17:56 | Progress Note ---
Assessment and Plan Assessment and plan: This is a 55-year-old female admitted with acute hypoxic respiratory failure secondary to COVID-19 pneumonia Severe COVID-19 pneumonia Acute hypoxic respiratory failure Obesity Schizophrenia Leukocytosis Hyperglycemia Schizophrenia Hypernatremia -CCM, infectious disease, psychiatry consulted, appreciate recommendations -COVID-19 PCR positive -Droplet/contact isolation -Remdesivir, azithromycin, ceftriaxone, dexamethasone (twice daily dosing) -s/p Actemra -Wean supplemental oxygen as tolerated, pulmonary hygiene -Prone as tolerated -Trend COVID-19 inflammatory markers for risk stratification, CBC, CMP -SSI, Lantus -01/18 bilateral lower extremity Doppler ultrasound negative for DVT -01/17 CTA shows no evidence of pulmonary embolism, extensive bilateral pneumonia, hepatomegaly with hepatic steatosis DVT/GI prophylaxis: Lovenox subcu, SCDs to bilateral lower extremities while in bed Disposition: ICU The high probability of a clinically significant, sudden or life threatening deterioration of the [respiratory] system(s) required my full and direct attention, intervention and personal management. The aggregate critical care time was [35] minutes. This time is in addition to time spent performing reported procedures but includes the following: [x] Data Review and interpretation [x] Patient assessment and monitoring of vital signs [x] Documentation [x] Medication orders and management History Interval history: This is a 55-year-old female with schizophrenia who presented to [facility] on 01/18 for shortness of breath, cough, subjective fever and not feeling well for the last couple days with known COVID-19 exposure. While in the emergency room patient was switched from non rebreather mask to high flow nasal cannula and his CTA chest showed no acute pulmonary embolism. Patient was admitted to the hospital service as a COVID-19 PUI with consults to [facility], infectious disease, psych. 01/18/2021 -Acute hypoxic respiratory failure requiring high flow oxygen 40 L. Nebulizer treatment -Patient is admitted for suspected Covid pneumonia. Patient is on dexamethasone, COVID-19 test is pending. Patient is on empiric antibiotics. -ID consulted, will consult pulmonary. -Patient has hyponatremia yesterday and I will repeat and if it is low I will manage accordingly -Patient has elevated D-dimer and CTA chest and bilateral Doppler ultrasound of the lower extremities pending 01/19/2021 -Acute hypoxic respiratory failure currently on BiPAP, nebulizer treatment. I will put in orders to transfer to [facility] yesterday but there was no bed. -Patient is positive for Covid and she is on Decadron and remdesivir. Actemra was ordered on 01/19/2021 -ID evaluated the patient and recommend to continue Decadron and remdesivir, also to continue ceftriaxone and azithromycin for 5 days because of the elevated procalcitonin level. Pulmonary was consulted and recommend to continue current management and add Lasix -CTA chest was done and significant for bilateral pulmonary opacities, negative for PE, Doppler ultrasound of the lower extremities was negative for DVT. -Prognosis is guarded. -Patient is currently on BiPAP and she was agitated and trying to take off the BiPAP, I put the patient on restraints. Discussed with casting house laborer to transfer the patient to IM and if there is no bed she need to be transferred to CCU. 01/20: Patient received 5 mg of Haldol for severe agitation and refusal to keep high flow nasal cannula in place. [facility] ordered Lasix again. Psych was consulted today. Patient was on BiPAP therapy all night and RT attempted to give her a break patient is on high flow nasal cannula however she did not keep this in place and was paced back on BiPAP after receiving Haldol. She was started on Lantus today. 01/21: Patient is on BiPAP and on time examination was on 20/10 100% FiO2. Patient was started on Lantus. Psych consult completed and started on Haldol p.o. twice daily and Mirtazepin PO daily. No acute events reported overnight. Patient's D-dimer is greater than 10,000 started on prophylactic Lovenox as recent CTA chest and bilateral lower extremity Doppler ultrasound were negative. Hospitalist Physical - Constitutional Vitals: Temp Pulse Resp BP Pulse Ox 98.4 F 92 H 20 133/66 92 01/21/21 16:00 01/21/21 17:16 01/21/21 17:16 01/21/21 17:16 01/21/21 17:16 General appearance: Present: well-nourished, other (Resting comfortably on BiPAP) - EENT Eyes: Present: PERRL, EOM intact ENT: poor dentition - Neck Neck: Present: normal ROM - Respiratory Respiratory effort: normal Respiratory: bilateral: diminished - Cardiovascular Rhythm: regular Heart Sounds: Present: S1 & S2. Absent: systolic murmur, diastolic murmur - Extremities Extremities: no ischemia, pulses intact, pulses symmetrical, No edema, normal temperature, normal color, Full ROM Peripheral Pulses: within normal limits - Abdominal General gastrointestinal: soft, non-tender, non-distended, normal bowel sounds - Integumentary Integumentary: Present: dry - Psychiatric Psychiatric: cooperative - Neurologic Neurologic: moves all extremities - Allied Health Allied health notes reviewed: nursing, RT, social work HEART Score - HEART Score Troponin: Troponin T < 0.010 ng/mL (0.00-0.029) 01/17/21 16:41 Results - Labs CBC & Chem 7: 01/19/21 05:11 01/21/21 11:29 Labs: Laboratory Last Values WBC 14.2 K/mm3 (4.5-11.0) H 01/19/21 05:11 RBC 4.94 M/mm3 (3.65-5.03) 01/19/21 05:11 Hgb 11.2 gm/dl (10.1-14.3) 01/19/21 05:11 Hct 36.6 % (30.3-42.9) 01/19/21 05:11 MCV 74 fl (79-97) L 01/19/21 05:11 MCH 23 pg (28-32) L 01/19/21 05:11 MCHC 31 % (30-34) 01/19/21 05:11 RDW 15.2 % (13.2-15.2) 01/19/21 05:11 Plt Count 235 K/mm3 (140-440) 01/19/21 05:11 Lymph % (Auto) 9.4 % (13.4-35.0) L 01/17/21 16:41 [place] % (Auto) 5.0 % (0.0-7.3) 01/17/21 16:41 Eos % (Auto) 0.0 % (0.0-4.3) 01/17/21 16:41 Baso % (Auto) 0.2 % (0.0-1.8) 01/17/21 16:41 Lymph # (Auto) 0.8 K/mm3 (1.2-5.4) L 01/17/21 16:41 [place] # (Auto) 0.4 K/mm3 (0.0-0.8) 01/17/21 16:41 Eos # (Auto) 0.0 K/mm3 (0.0-0.4) 01/17/21 16:41 Baso # (Auto) 0.0 K/mm3 (0.0-0.1) 01/17/21 16:41 Add Manual Diff Complete 01/19/21 05:11 Total Counted 100 01/19/21 05:11 Seg Neutrophils % Cooling Room Attendant 01/19/21 05:11 Seg Neuts % (Manual) 88.0 % (40.0-70.0) H 01/19/21 05:11 Lymphocytes % (Manual) 10.0 % (13.4-35.0) L 01/19/21 05:11 Monocytes % (Manual) 2.0 % (0.0-7.3) 01/19/21 05:11 Nucleated RBC % Not Reportable 01/19/21 05:11 Seg Neutrophils # 7.6 K/mm3 (1.8-7.7) 01/17/21 16:41 Seg Neutrophils # Man 12.5 K/mm3 (1.8-7.7) H 01/19/21 05:11 Band Neutrophils # 0.0 K/mm3 01/19/21 05:11 Lymphocytes # (Manual) 1.4 K/mm3 (1.2-5.4) 01/19/21 05:11 Abs React Lymphs (Man) 0.0 K/mm3 01/19/21 05:11 Monocytes # (Manual) 0.3 K/mm3 (0.0-0.8) 01/19/21 05:11 Eosinophils # (Manual) 0.0 K/mm3 (0.0-0.4) 01/19/21 05:11 Basophils # (Manual) 0.0 K/mm3 (0.0-0.1) 01/19/21 05:11 Metamyelocytes # 0.0 K/mm3 01/19/21 05:11 Myelocytes # 0.0 K/mm3 01/19/21 05:11 Promyelocytes # 0.0 K/mm3 01/19/21 05:11 Blast Cells # 0.0 K/mm3 01/19/21 05:11 WBC Morphology Not Reportable 01/19/21 05:11 Hypersegmented Neuts Not Reportable 01/19/21 05:11 Hyposegmented Neuts Not Reportable 01/19/21 05:11 Hypogranular Neuts Not Reportable 01/19/21 05:11 Smudge Cells Not Reportable 01/19/21 05:11 Toxic Granulation Not Reportable 01/19/21 05:11 Toxic Vacuolation Not Reportable 01/19/21 05:11 Dohle Bodies Not Reportable 01/19/21 05:11 Pelger-Huet Anomaly Not Reportable 01/19/21 05:11 Inder Rods Not Reportable 01/19/21 05:11 Platelet Estimate Consistent w auto 01/19/21 05:11 Clumped Platelets Not Reportable 01/19/21 05:11 Plt Clumps, EDTA Not Reportable 01/19/21 05:11 Large Platelets Not Reportable 01/19/21 05:11 Giant Platelets Not Reportable 01/19/21 05:11 Platelet Satelliting Not Reportable 01/19/21 05:11 Plt Morphology Comment Not Reportable 01/19/21 05:11 RBC Morphology Not Reportable 01/19/21 05:11 Dimorphic RBCs Not Reportable 01/19/21 05:11 Polychromasia Not Reportable 01/19/21 05:11 Hypochromasia 1+ 01/19/21 05:11 Poikilocytosis Not Reportable 01/19/21 05:11 Anisocytosis Not Reportable 01/19/21 05:11 Microcytosis Not Reportable 01/19/21 05:11 Macrocytosis Not Reportable 01/19/21 05:11 Spherocytes Not Reportable 01/19/21 05:11 Pappenheimer Bodies Not Reportable 01/19/21 05:11 Sickle Cells Not Reportable 01/19/21 05:11 Target Cells Not Reportable 01/19/21 05:11 Tear Drop Cells Not Reportable 01/19/21 05:11 Ovalocytes Not Reportable 01/19/21 05:11 Helmet Cells Not Reportable 01/19/21 05:11 [place] Bodies Not Reportable 01/19/21 05:11 Cherry Log Rings Not Reportable 01/19/21 05:11 Bandera Cells Not Reportable 01/19/21 05:11 Bite Cells Not Reportable 01/19/21 05:11 Crenated Cell Not Reportable 01/19/21 05:11 Elliptocytes Not Reportable 01/19/21 05:11 Acanthocytes (Spur) Not Reportable 01/19/21 05:11 Rouleaux Not Reportable 01/19/21 05:11 Hemoglobin C Crystals Not Reportable 01/19/21 05:11 Schistocytes Not Reportable 01/19/21 05:11 Malaria parasites Not Reportable 01/19/21 05:11 Chai Bodies Not Reportable 01/19/21 05:11 Hem Pathologist Commnt No 01/19/21 05:11 D-Dimer > 57987 ng/mlDDU (0-234) H 01/21/21 04:45 ABG pH 7.461 pH Units (7.350-7.450) H 01/18/21 17:18 ABG pCO2 36.6 mm Hg 01/18/21 17:18 ABG pO2 53.1 mm Hg (80.0-90.0) L 01/18/21 17:18 ABG HCO3 25.5 mmol/L (20.0-26.0) 01/18/21 17:18 ABG O2 Saturation 89.4 % (95.0-99.0) L 01/18/21 17:18 ABG O2 Content 15.1 (0.0-44) 01/18/21 17:18 ABG Base Excess 1.9 mmol/L (-2.0-3.0) 01/18/21 17:18 ABG Hemoglobin 12.2 gm/dl (12.0-16.0) 01/18/21 17:18 ABG Carboxyhemoglobin 1.2 % (0.0-5.0) 01/18/21 17:18 ABG Methemoglobin 0.5 % (0.0-1.5) 01/18/21 17:18 Oxyhemoglobin 88.0 % (95.0-99.0) L 01/18/21 17:18 FiO2 100 % 01/18/21 17:18 Sodium 151 mmol/L (137-145) H 01/21/21 11:29 Potassium 4.8 mmol/L (3.6-5.0) 01/21/21 11:29 Chloride 106.6 mmol/L (98-107) 01/21/21 11:29 Carbon Dioxide 27 mmol/L (22-30) 01/21/21 11:29 Anion Gap 22 mmol/L 01/21/21 11:29 BUN 40 mg/dL (7-17) H 01/21/21 11:29 Creatinine 0.8 mg/dL (0.6-1.2) 01/21/21 11:29 Estimated GFR > 60 ml/min 01/21/21 11:29 BUN/Creatinine Ratio 50 % 01/21/21 11:29 Glucose 412 mg/dL (65-100) H 01/21/21 11:29 POC Glucose 401 mg/dL (70-105) H 01/21/21 09:45 Lactic Acid 1.70 mmol/L (0.7-2.0) 01/17/21 16:41 Calcium 8.9 mg/dL (8.4-10.2) 01/21/21 11:29 Ferritin 1688.0 ng/mL (10.0-200.0) H 01/21/21 04:45 Total Bilirubin 0.30 mg/dL (0.1-1.2) 01/21/21 11:29 AST 34 units/L (5-40) 01/21/21 11:29 ALT 38 units/L (7-56) 01/21/21 11:29 Alkaline Phosphatase 117 units/L (35-129) 01/21/21 11:29 Lactate Dehydrogenase 649 units/L (91-180) H 01/21/21 04:45 Troponin T < 0.010 ng/mL (0.00-0.029) 01/17/21 16:41 C-Reactive Protein 17.00 mg/dL (0.00-1.30) H 01/21/21 04:45 NT-Pro-B Natriuret Pep 40.88 pg/mL (0-900) 01/17/21 16:41 Total Protein 7.3 g/dL (6.3-8.2) 01/21/21 11:29 Albumin 3.4 g/dL (3.9-5) L 01/21/21 11:29 Albumin/Globulin Ratio 0.9 % 01/21/21 11:29 Procalcitonin 0.39 ng/mL (<0.15) 01/17/21 17:46 Coronavirus (PCR) Positive (Negative) A 01/17/21 09:25 Microbiology: Microbiology 01/17/21 16:41 Peripheral/Venous Blood Culture - Preliminary NO GROWTH AFTER 4 DAYS 01/17/21 16:47 Peripheral/Venous Blood Culture - Preliminary NO GROWTH AFTER 4 DAYS Estrada/IV: Voiding Method External Female Catheter Active Medications - Current Medications Current Medications: Generic Name Dose Route Start Last Admin Trade Name Freq PRN Reason Stop Dose Admin Acetaminophen 650 mg 01/18/21 00:36 01/18/21 17:32 Acetaminophen 325 Mg Tab PO 650 mg Q4H PRN Administration Pain MILD(1-3)/Fever >100.5/PAN Albuterol/Ipratropium 1 ampul 01/18/21 02:00 01/21/21 14:40 Ipratropium/Albuterol Sulfate 3 Ml Ampul.Neb IH 1 ampul Q6HRT PJ Administration Dexamethasone 6 mg 01/20/21 10:00 01/21/21 10:45 Dexamethasone 4 Mg/Ml Vial IV 01/28/21 22:01 6 mg BID PJ Administration Enoxaparin Sodium 100 mg 01/21/21 10:00 01/21/21 10:46 Enoxaparin 100 Mg/1 Ml Inj 1 mg/kg (100 mg) 100 mg SUB-Q Administration Q12HR [facility] Protocol Famotidine 20 mg 01/18/21 10:00 01/21/21 11:46 Famotidine 20 Mg Tab PO 20 mg BID PJ Administration Haloperidol 0.5 mg 01/21/21 22:00 Haloperidol 1 Mg Tab PO BID PJ Hydralazine HCl 10 mg 01/18/21 00:38 Hydralazine 20 Mg/1 Ml Inj IV Q6H PRN htn Hydromorphone HCl 0.5 mg 01/20/21 11:00 Hydromorphone 1 Mg/1 Ml Inj IV Q6H PRN Pain , Severe (7-10) Ceftriaxone Sodium 2 gm in 100 mls @ 200 mls/hr 01/18/21 22:00 01/20/21 21:38 Rocephin/Ns 2 Gm/100 Ml IV 01/22/21 22:29 200 mls/hr Q24H PJ Administration Protocol Azithromycin 500 mg in 250 mls @ 250 mls/hr 01/18/21 22:00 01/20/21 21:39 Zithromax/Ns IV 01/22/21 22:59 250 mls/hr Q24H PJ Administration Protocol REMDESIVIR 100 mg/ Sodium 250 mls @ 500 mls/hr 01/21/21 21:00 Chloride IV 01/23/21 21:29 Q24HR@2100 [facility] Insulin Glargine 20 units 01/20/21 22:00 01/20/21 21:48 Insulin Glargine 100 Units/Ml SUB-Q 20 units QHS PJ Administration Insulin Glargine 10 units 01/21/21 12:00 01/21/21 12:28 Insulin Glargine 100 Units/Ml SUB-Q 10 units DAILY PJ Administration Insulin Human Lispro 0 unit 01/21/21 14:00 01/21/21 14:28 Insulin Lispro 100 Unit/Ml SUB-Q 10 unit Q4HR [facility] Administration Protocol Mirtazapine 7.5 mg 01/21/21 22:00 Mirtazapine 15 Mg Tab PO QHS [facility] Ondansetron HCl 4 mg 01/18/21 00:36 Ondansetron 4 Mg/2 Ml Inj IV Q8H PRN Nausea And Vomiting Sodium Chloride 10 ml 01/18/21 10:00 01/21/21 10:48 Sodium Chloride 0.9% 10 Ml Flush Syringe IV 10 ml BID PJ Administration Sodium Chloride 10 ml 01/18/21 00:36 Sodium Chloride 0.9% 10 Ml Flush Syringe IV PRN PRN LINE FLUSH Sodium Chloride 50 ml 01/18/21 21:00 01/20/21 21:48 Sodium Chloride 0.9% 50 Ml Ivpb IV 01/23/21 21:01 Not Given Q24HR@2100 [facility] Ziprasidone 10 mg 01/20/21 10:57 01/21/21 04:00 Ziprasidone Mesylate 20 Mg Vial IM 10 mg Q6H PRN Administration AGITATION
[2021-01-21] MEDS: REMDESIVIR 100 MG in SODIUM CHLORIDE 0.9% 250ML 250 ML IV SCH (21:28)
[2021-01-21] MEDS: SODIUM CHLORIDE 0.9% 50 ML IVPB IV SCH (21:28)
[2021-01-21] MEDS: HALOPERIDOL 1 MG TAB PO SCH (22:26)
[2021-01-21] MEDS: cefTRIAXone/NS 2 GM/100 ML 2 GM/100 ML BAG IV SCH (22:27)
[2021-01-21] MEDS: MIRTAZAPINE 15 MG TAB PO SCH (22:27)
[2021-01-21] MEDS: AZITHROMYCIN/NS 500 MG/250 ML 500 MG/250 ML BAG IV SCH (22:28)
[2021-01-22] MEDS: INSULIN LISPRO 100 UNIT/ML SUB-Q SCH ×6 (02:28→23:47)
[2021-01-22] MEDS: IPRATROPIUM/ALBUTEROL SULFATE 3 ML AMPUL.NEB IH SCH ×4 (02:30→20:33)
--- NOTE | 2021-01-22 08:23 | Progress Note ---
Assessment and Plan - Patient Problems (1) Acute respiratory failure due to COVID-19 Current Visit: Yes Status: Acute (2) Acute respiratory failure with hypoxia Current Visit: Yes Status: Acute (3) COVID-19 Current Visit: Yes Status: Acute (4) Hypoxia Current Visit: Yes Status: Acute (5) Pneumonia Current Visit: Yes Status: Acute (6) Respiratory failure Current Visit: Yes Status: Acute (7) Schizophrenia Current Visit: Yes Status: Acute Subjective Interval history: pt awake. Less sob Objective Vital Signs - 12hr 01/21/21 01/21/21 01/21/21 20:30 20:46 21:00 Temperature Pulse Rate 91 H 94 H 91 H Pulse Rate [ Anterior Bilateral Throughout] Pulse Rate [ From Monitor] Respiratory 15 19 20 Rate Respiratory Rate [Anterior Bilateral Throughout] Blood Pressure 154/76 154/76 154/76 O2 Sat by Pulse 94 96 Oximetry 01/21/21 01/21/21 01/21/21 21:05 21:16 21:30 Temperature Pulse Rate 92 H 95 H 71 Pulse Rate [ 88 Anterior Bilateral Throughout] Pulse Rate [ From Monitor] Respiratory 21 17 16 Rate Respiratory 21 Rate [Anterior Bilateral Throughout] Blood Pressure 154/76 137/54 O2 Sat by Pulse 94 97 Oximetry 01/21/21 01/21/21 01/21/21 21:45 22:00 22:15 Temperature Pulse Rate 85 83 79 Pulse Rate [ Anterior Bilateral Throughout] Pulse Rate [ From Monitor] Respiratory 18 14 18 Rate Respiratory Rate [Anterior Bilateral Throughout] Blood Pressure 131/56 150/64 144/62 O2 Sat by Pulse 95 97 97 Oximetry 01/21/21 01/21/21 01/21/21 22:30 22:34 22:45 Temperature Pulse Rate 81 89 87 Pulse Rate [ Anterior Bilateral Throughout] Pulse Rate [ From Monitor] Respiratory 14 16 13 Rate Respiratory Rate [Anterior Bilateral Throughout] Blood Pressure 140/66 140/66 143/64 O2 Sat by Pulse 96 98 95 Oximetry 01/21/21 01/21/21 01/21/21 23:00 23:15 23:30 Temperature Pulse Rate 79 77 72 Pulse Rate [ Anterior Bilateral Throughout] Pulse Rate [ From Monitor] Respiratory 13 16 15 Rate Respiratory Rate [Anterior Bilateral Throughout] Blood Pressure 136/64 145/61 149/56 O2 Sat by Pulse 95 94 92 Oximetry 01/21/21 01/22/21 01/22/21 23:45 00:00 00:15 Temperature 97.9 F Pulse Rate 77 77 82 Pulse Rate [ Anterior Bilateral Throughout] Pulse Rate [ 81 From Monitor] Respiratory 16 16 16 Rate Respiratory Rate [Anterior Bilateral Throughout] Blood Pressure 163/58 150/60 136/61 O2 Sat by Pulse 95 92 92 Oximetry 01/22/21 01/22/21 01/22/21 00:30 00:46 00:47 Temperature Pulse Rate 84 75 74 Pulse Rate [ Anterior Bilateral Throughout] Pulse Rate [ From Monitor] Respiratory 15 13 21 Rate Respiratory Rate [Anterior Bilateral Throughout] Blood Pressure 137/64 137/64 136/61 O2 Sat by Pulse 93 93 94 Oximetry 01/22/21 01/22/21 01/22/21 01:00 01:15 01:30 Temperature Pulse Rate 78 83 68 Pulse Rate [ Anterior Bilateral Throughout] Pulse Rate [ From Monitor] Respiratory 13 18 15 Rate Respiratory Rate [Anterior Bilateral Throughout] Blood Pressure 148/57 140/56 136/58 O2 Sat by Pulse 94 96 97 Oximetry 01/22/21 01/22/21 01/22/21 01:45 02:00 02:16 Temperature Pulse Rate 74 87 73 Pulse Rate [ Anterior Bilateral Throughout] Pulse Rate [ From Monitor] Respiratory 17 18 16 Rate Respiratory Rate [Anterior Bilateral Throughout] Blood Pressure 148/66 154/65 140/60 O2 Sat by Pulse 95 94 96 Oximetry 01/22/21 01/22/21 01/22/21 02:30 02:45 03:00 Temperature Pulse Rate 110 H 81 88 Pulse Rate [ Anterior Bilateral Throughout] Pulse Rate [ From Monitor] Respiratory 26 H 16 13 Rate Respiratory Rate [Anterior Bilateral Throughout] Blood Pressure 140/60 156/73 148/70 O2 Sat by Pulse 97 97 96 Oximetry 01/22/21 01/22/21 01/22/21 03:15 03:30 03:45 Temperature Pulse Rate 76 78 65 Pulse Rate [ Anterior Bilateral Throughout] Pulse Rate [ From Monitor] Respiratory 13 14 14 Rate Respiratory Rate [Anterior Bilateral Throughout] Blood Pressure 158/67 161/76 156/68 O2 Sat by Pulse 96 94 94 Oximetry 01/22/21 01/22/21 01/22/21 03:54 04:00 04:16 Temperature 97.8 F Pulse Rate 64 68 Pulse Rate [ Anterior Bilateral Throughout] Pulse Rate [ 75 From Monitor] Respiratory 15 15 Rate Respiratory Rate [Anterior Bilateral Throughout] Blood Pressure 163/66 170/72 O2 Sat by Pulse 96 95 Oximetry 01/22/21 01/22/21 01/22/21 04:30 04:46 05:00 Temperature Pulse Rate 92 H 81 75 Pulse Rate [ Anterior Bilateral Throughout] Pulse Rate [ From Monitor] Respiratory 14 15 17 Rate Respiratory Rate [Anterior Bilateral Throughout] Blood Pressure 167/77 154/75 165/69 O2 Sat by Pulse 93 96 93 Oximetry 01/22/21 01/22/21 01/22/21 05:15 05:30 05:44 Temperature Pulse Rate 74 80 96 H Pulse Rate [ Anterior Bilateral Throughout] Pulse Rate [ From Monitor] Respiratory 15 16 21 Rate Respiratory Rate [Anterior Bilateral Throughout] Blood Pressure 166/76 165/72 165/69 O2 Sat by Pulse 94 93 96 Oximetry 01/22/21 01/22/21 01/22/21 05:45 06:00 06:15 Temperature Pulse Rate 74 105 H 79 Pulse Rate [ Anterior Bilateral Throughout] Pulse Rate [ From Monitor] Respiratory 18 21 16 Rate Respiratory Rate [Anterior Bilateral Throughout] Blood Pressure 148/71 148/71 152/69 O2 Sat by Pulse 95 98 94 Oximetry 01/22/21 01/22/21 01/22/21 06:30 06:46 07:00 Temperature Pulse Rate 79 114 H 93 H Pulse Rate [ Anterior Bilateral Throughout] Pulse Rate [ From Monitor] Respiratory 13 34 H 17 Rate Respiratory Rate [Anterior Bilateral Throughout] Blood Pressure 154/73 207/112 207/112 O2 Sat by Pulse 95 94 Oximetry 01/22/21 01/22/21 01/22/21 07:15 07:30 07:45 Temperature Pulse Rate 69 81 70 Pulse Rate [ Anterior Bilateral Throughout] Pulse Rate [ From Monitor] Respiratory 13 14 20 Rate Respiratory Rate [Anterior Bilateral Throughout] Blood Pressure 170/74 171/68 183/73 O2 Sat by Pulse 94 96 92 Oximetry 01/22/21 01/22/21 07:47 08:00 Temperature 97.9 F Pulse Rate 104 H Pulse Rate [ Anterior Bilateral Throughout] Pulse Rate [ 95 H From Monitor] Respiratory 19 Rate Respiratory Rate [Anterior Bilateral Throughout] Blood Pressure 191/100 O2 Sat by Pulse 93 Oximetry Constitutional: no acute distress, alert, other (on hiflo) Eyes: non-icteric ENT: oropharynx moist Neck: supple, other (large in circumference) Effort: mildly labored Ascultation: Bilateral: clear CBC and BMP: 01/22/21 08:25 01/22/21 08:25 ABG, PT/INR, D-dimer: ABG ABG pH 7.461 pH Units (7.350-7.450) H 01/18/21 17:18 ABG pCO2 36.6 mm Hg 01/18/21 17:18 ABG pO2 53.1 mm Hg (80.0-90.0) L 01/18/21 17:18 ABG O2 Saturation 89.4 % (95.0-99.0) L 01/18/21 17:18 PT/INR, D-dimer D-Dimer > 40437 ng/mlDDU (0-234) H 01/21/21 04:45 Abnormal lab findings: Abnormal Labs 01/17/21 01/17/21 01/17/21 09:25 16:41 16:41 WBC RBC 5.23 H MCV 76 L MCH 24 L Lymph % (Auto) 9.4 L Lymph # (Auto) 0.8 L Seg Neutrophils % 85.4 H Seg Neuts % (Manual) Lymphocytes % (Manual) Seg Neutrophils # Man D-Dimer ABG pH ABG pO2 ABG O2 Saturation Oxyhemoglobin Sodium 128 L Chloride 90.8 L Carbon Dioxide BUN Glucose 372 H POC Glucose Calcium Ferritin AST 98 H Lactate Dehydrogenase C-Reactive Protein Total Protein Albumin 3.2 L Coronavirus (PCR) Positive A 01/17/21 01/17/21 01/17/21 17:46 17:46 17:46 WBC RBC MCV MCH Lymph % (Auto) Lymph # (Auto) Seg Neutrophils % Seg Neuts % (Manual) Lymphocytes % (Manual) Seg Neutrophils # Man D-Dimer 1058.54 H ABG pH ABG pO2 ABG O2 Saturation Oxyhemoglobin Sodium Chloride Carbon Dioxide BUN Glucose 369 H POC Glucose Calcium Ferritin 668.4 H AST Lactate Dehydrogenase 519 H C-Reactive Protein 19.20 H Total Protein Albumin Coronavirus (PCR) 01/18/21 01/18/21 01/19/21 09:01 17:18 05:11 WBC 14.2 H RBC MCV 74 L MCH 23 L Lymph % (Auto) Lymph # (Auto) Seg Neutrophils % Seg Neuts % (Manual) 88.0 H Lymphocytes % (Manual) 10.0 L Seg Neutrophils # Man 12.5 H D-Dimer ABG pH 7.461 H ABG pO2 53.1 L ABG O2 Saturation 89.4 L Oxyhemoglobin 88.0 L Sodium 132 L Chloride 93.6 L Carbon Dioxide BUN 18 H Glucose 367 H POC Glucose Calcium 7.8 L Ferritin AST Lactate Dehydrogenase C-Reactive Protein Total Protein Albumin Coronavirus (PCR) 01/19/21 01/19/21 01/19/21 05:11 11:06 14:43 WBC RBC MCV MCH Lymph % (Auto) Lymph # (Auto) Seg Neutrophils % Seg Neuts % (Manual) Lymphocytes % (Manual) Seg Neutrophils # Man D-Dimer ABG pH ABG pO2 ABG O2 Saturation Oxyhemoglobin Sodium Chloride Carbon Dioxide BUN 18 H Glucose 304 H 379 H POC Glucose 382 H Calcium 8.3 L Ferritin AST 92 H 96 H Lactate Dehydrogenase C-Reactive Protein Total Protein Albumin 3.0 L 3.0 L Coronavirus (PCR) 01/19/21 01/19/21 01/20/21 16:18 22:18 07:31 WBC RBC MCV MCH Lymph % (Auto) Lymph # (Auto) Seg Neutrophils % Seg Neuts % (Manual) Lymphocytes % (Manual) Seg Neutrophils # Man D-Dimer ABG pH ABG pO2 ABG O2 Saturation Oxyhemoglobin Sodium Chloride Carbon Dioxide BUN Glucose POC Glucose 374 H 341 H 344 H Calcium Ferritin AST Lactate Dehydrogenase C-Reactive Protein Total Protein Albumin Coronavirus (PCR) 01/20/21 01/20/21 01/20/21 07:33 12:14 13:54 WBC RBC MCV MCH Lymph % (Auto) Lymph # (Auto) Seg Neutrophils % Seg Neuts % (Manual) Lymphocytes % (Manual) Seg Neutrophils # Man D-Dimer ABG pH ABG pO2 ABG O2 Saturation Oxyhemoglobin Sodium Chloride Carbon Dioxide BUN 32 H 31 H Glucose 343 H 396 H POC Glucose 365 H Calcium Ferritin AST 57 H 54 H Lactate Dehydrogenase C-Reactive Protein Total Protein 8.3 H Albumin 2.7 L 3.1 L Coronavirus (PCR) 01/20/21 01/20/21 01/21/21 18:28 21:25 04:45 WBC RBC MCV MCH Lymph % (Auto) Lymph # (Auto) Seg Neutrophils % Seg Neuts % (Manual) Lymphocytes % (Manual) Seg Neutrophils # Man D-Dimer ABG pH ABG pO2 ABG O2 Saturation Oxyhemoglobin Sodium Chloride Carbon Dioxide 31 H BUN 41 H Glucose 377 H POC Glucose 403 H 340 H Calcium Ferritin AST Lactate Dehydrogenase C-Reactive Protein Total Protein 8.3 H Albumin 3.0 L Coronavirus (PCR) 01/21/21 01/21/21 01/21/21 04:45 04:45 04:45 WBC RBC MCV MCH Lymph % (Auto) Lymph # (Auto) Seg Neutrophils % Seg Neuts % (Manual) Lymphocytes % (Manual) Seg Neutrophils # Man D-Dimer > 39764 H ABG pH ABG pO2 ABG O2 Saturation Oxyhemoglobin Sodium Chloride Carbon Dioxide BUN Glucose POC Glucose Calcium Ferritin 1688.0 H AST Lactate Dehydrogenase 649 H C-Reactive Protein 17.00 H Total Protein Albumin Coronavirus (PCR) 01/21/21 01/21/21 01/21/21 09:45 11:29 12:09 WBC RBC MCV MCH Lymph % (Auto) Lymph # (Auto) Seg Neutrophils % Seg Neuts % (Manual) Lymphocytes % (Manual) Seg Neutrophils # Man D-Dimer ABG pH ABG pO2 ABG O2 Saturation Oxyhemoglobin Sodium 151 H Chloride Carbon Dioxide BUN 40 H Glucose 412 H POC Glucose 401 H 372 H Calcium Ferritin AST Lactate Dehydrogenase C-Reactive Protein Total Protein Albumin 3.4 L Coronavirus (PCR) 01/21/21 01/21/21 01/22/21 18:26 21:09 02:00 WBC RBC MCV MCH Lymph % (Auto) Lymph # (Auto) Seg Neutrophils % Seg Neuts % (Manual) Lymphocytes % (Manual) Seg Neutrophils # Man D-Dimer ABG pH ABG pO2 ABG O2 Saturation Oxyhemoglobin Sodium Chloride Carbon Dioxide BUN Glucose POC Glucose 376 H 322 H 231 H Calcium Ferritin AST Lactate Dehydrogenase C-Reactive Protein Total Protein Albumin Coronavirus (PCR) 01/22/21 05:24 WBC RBC MCV MCH Lymph % (Auto) Lymph # (Auto) Seg Neutrophils % Seg Neuts % (Manual) Lymphocytes % (Manual) Seg Neutrophils # Man D-Dimer ABG pH ABG pO2 ABG O2 Saturation Oxyhemoglobin Sodium Chloride Carbon Dioxide BUN Glucose POC Glucose 275 H Calcium Ferritin AST Lactate Dehydrogenase C-Reactive Protein Total Protein Albumin Coronavirus (PCR)
[2021-01-22 09:10] LABS: Hemoglobin 12.3 gm/dl (10.1-14.3); Mean Corpuscular HGB Conc 30 % (30-34); Mean Corpuscular Volume 75 fl (79-97); Platelet Count 318 K/mm3 (140-440); Red Blood Count 5.44 M/mm3 (3.65-5.03); Red Cell Distribution Width 15.5 % (13.2-15.2)
[2021-01-22 09:11] LABS: Hematocrit 40.7 % (30.3-42.9)
[2021-01-22 09:24] LABS: Blood Urea Nitrogen 33 mg/dL (7-17); Calcium 8.9 mg/dL (8.4-10.2); Hemolysis Index 0
[2021-01-22] MEDS: HALOPERIDOL 1 MG TAB PO SCH ×2 (09:43→23:47)
[2021-01-22] MEDS: ENOXAPARIN 100 MG/1 ML INJ SUB-Q SCH ×2 (09:43→23:48)
[2021-01-22] MEDS: dexAMETHasone 4 MG/ML VIAL IV SCH ×2 (09:43→23:46)
[2021-01-22] MEDS: FAMOTIDINE 20 MG TAB PO SCH ×2 (09:44→23:49)
[2021-01-22] MEDS: INSULIN GLARGINE 100 UNITS/ML SUB-Q SCH ×2 (09:44→23:48)
[2021-01-22] MEDS ORDERED: amLODIPine 5 MG TAB PO SCH (10:00)
[2021-01-22 10:29] LABS: BUN/Creatinine Ratio 47
[2021-01-22] MEDS: hydrALAZINE 20 MG/1 ML INJ IV PRN (10:45)
--- NOTE | 2021-01-22 11:10 | Progress Note ---
Subjective - Reason for Consult Consult date: 01/22/21 Reason for consult: delirium - Chief Complaint Chief complaint: Per Nurse Note: REVIEW OF SYSTEMS on [employer] MENTAL STATUS EXAMINATION Unable to obtain Assessment and Plan (1) Schizophrenia Current Visit: Yes Status: Acute Treatment Plan Start Haldol 0.5mg po BID Start Mirtazepin 7.5mg po daily sitter: defer to primary Medical: per primary Disposition: Do not recommend acute psychiatric inpatient treatment Will follow. Thank you for this consult Case staffed with Dr. Wallace Mental Status Exam - Vital signs Last Vital Signs Temp 97.9 F 01/22/21 07:47 Pulse 123 H 01/22/21 09:00 Resp 29 H 01/22/21 09:00 BP 194/109 01/22/21 09:00 Pulse Ox 91 01/22/21 09:00
--- NOTE | 2021-01-22 13:15 | Progress Note ---
Assessment and Plan Cultures: COVID-19 PCR: Positive 01/17/2021 blood culture: No growth A/P: 55-year-old female past medical history schizophrenia admitted to hospital with COVID-19. #Severe COVID-19 pneumonia: Inflammatory markers elevated. No evidence of pulmonary embolism on CT. #Acute hypoxemic respiratory failure: secondary to COVID-19 infection. On HFNC. #Obesity Recs: -Continue Decadron, higher dose due to obesity -Continue Remdesivir, complete 5 days -s/p Actemra 01/20/2021 -Complete empiric antibiotics due to elevated procalcitonin (end today) -Anticoagulation per protocol. D-dimer significantly worse -recheck markers tomorrow Aiden Torres MD, FACP [facility] O: [phone] F: [phone] Subjective Date of service: 01/22/21 Interval history: No fever. On HFNC. Objective - Exam Narrative Exam: Physical Exam (reviewed in chart to minimize risk of transmission) Constitutional: deferred Head, Ears, Nose: deferred Eyes: deferred Neck: deferred Oral: deferred Cardiovascular: deferred Respiratory: deferred GI: deferred Musculoskeletal: deferred Skin: deferred Hem/Lymphatic: deferred Psych: deferred Neurological: deferred - Constitutional Vitals: Vital Signs Temp Pulse Resp BP Pulse Ox 97.9 F 110 H 22 164/75 92 01/22/21 07:47 01/22/21 13:00 01/22/21 13:00 01/22/21 13:00 01/22/21 13:00 Temperature -Last 24 Hours Temperature 97.9 F Temperature 97.8 F Temperature 97.9 F Temperature 97.7 F Temperature 98.4 F - Labs CBC & Chem 7: 01/22/21 08:25 01/22/21 08:25 Labs: Abnormal lab results 01/21/21 01/21/21 01/21/21 Range/Units 12:09 18:26 21:09 RBC (3.65-5.03) M/mm3 MCV (79-97) fl MCH (28-32) pg RDW (13.2-15.2) % Sodium (137-145) mmol/L Chloride (98-107) mmol/L BUN (7-17) mg/dL Glucose (65-100) mg/dL POC Glucose 372 H 376 H 322 H (70-105) mg/dL 01/22/21 01/22/21 01/22/21 Range/Units 02:00 05:24 08:25 RBC (3.65-5.03) M/mm3 MCV (79-97) fl MCH (28-32) pg RDW (13.2-15.2) % Sodium 155 H (137-145) mmol/L Chloride 112.4 H (98-107) mmol/L BUN 33 H (7-17) mg/dL Glucose 274 H (65-100) mg/dL POC Glucose 231 H 275 H (70-105) mg/dL 01/22/21 01/22/21 Range/Units 08:25 11:53 RBC 5.44 H (3.65-5.03) M/mm3 MCV 75 L (79-97) fl MCH 23 L (28-32) pg RDW 15.5 H (13.2-15.2) % Sodium (137-145) mmol/L Chloride (98-107) mmol/L BUN (7-17) mg/dL Glucose (65-100) mg/dL POC Glucose 265 H (70-105) mg/dL
[2021-01-22] MEDS ORDERED: hydrALAZINE 25 MG TAB PO SCH (14:00)
--- NOTE | 2021-01-22 16:15 | Progress Note ---
Assessment and Plan Assessment and plan: This is a 55-year-old female admitted with acute hypoxic respiratory failure secondary to COVID-19 pneumonia Severe COVID-19 pneumonia Acute hypoxic respiratory failure Obesity Schizophrenia Leukocytosis Hyperglycemia Schizophrenia Hypernatremia Hypercholermia -CCM, infectious disease, psychiatry consulted, appreciate recommendations -COVID-19 PCR positive -Droplet/contact isolation -Remdesivir, azithromycin, ceftriaxone, dexamethasone (twice daily dosing) -s/p Actemra -Wean supplemental oxygen as tolerated, pulmonary hygiene -Prone as tolerated -Trend COVID-19 inflammatory markers for risk stratification, CBC, CMP -SSI, Lantus -01/18 bilateral lower extremity Doppler ultrasound negative for DVT -01/17 CTA shows no evidence of pulmonary embolism, extensive bilateral pneumonia, hepatomegaly with hepatic steatosis DVT/GI prophylaxis: Lovenox subcu, SCDs to bilateral lower extremities while in bed Disposition: IMCU The high probability of a clinically significant, sudden or life threatening deterioration of the [respiratory] system(s) required my full and direct attention, intervention and personal management. The aggregate critical care time was [35] minutes. This time is in addition to time spent performing reported procedures but includes the following: [x] Data Review and interpretation [x] Patient assessment and monitoring of vital signs [x] Documentation [x] Medication orders and management History Interval history: This is a 55-year-old female with schizophrenia who presented to [facility] on 01/18 for shortness of breath, cough, subjective fever and not feeling well for the last couple days with known COVID-19 exposure. While in the emergency room patient was switched from non rebreather mask to high flow nasal cannula and his CTA chest showed no acute pulmonary embolism. Patient was admitted to the hospital service as a COVID-19 PUI with consults to [facility], infectious disease, psych. 01/18/2021 -Acute hypoxic respiratory failure requiring high flow oxygen 40 L. Nebulizer treatment -Patient is admitted for suspected Covid pneumonia. Patient is on dexamethasone, COVID-19 test is pending. Patient is on empiric antibiotics. -ID consulted, will consult pulmonary. -Patient has hyponatremia yesterday and I will repeat and if it is low I will manage accordingly -Patient has elevated D-dimer and CTA chest and bilateral Doppler ultrasound of the lower extremities pending 01/19/2021 -Acute hypoxic respiratory failure currently on BiPAP, nebulizer treatment. I will put in orders to transfer to [facility] yesterday but there was no bed. -Patient is positive for Covid and she is on Decadron and remdesivir. Actemra was ordered on 01/19/2021 -ID evaluated the patient and recommend to continue Decadron and remdesivir, also to continue ceftriaxone and azithromycin for 5 days because of the elevated procalcitonin level. Pulmonary was consulted and recommend to continue current management and add Lasix -CTA chest was done and significant for bilateral pulmonary opacities, negative for PE, Doppler ultrasound of the lower extremities was negative for DVT. -Prognosis is guarded. -Patient is currently on BiPAP and she was agitated and trying to take off the BiPAP, I put the patient on restraints. Discussed with senior warehouse clerk to transfer the patient to [facility] and if there is no bed she need to be transferred to CCU. 01/20: Patient received 5 mg of Haldol for severe agitation and refusal to keep high flow nasal cannula in place. [facility] ordered Lasix again. Psych was consulted today. Patient was on BiPAP therapy all night and RT attempted to give her a break patient is on high flow nasal cannula however she did not keep this in place and was paced back on BiPAP after receiving Haldol. She was started on L antus today. 01/21: Patient is on BiPAP and on time examination was on 20/10 100% FiO2. Patient was started on Lantus. Psych consult completed and started on Haldol p.o. twice daily and Mirtazepin PO daily. No acute events reported overnight. Patient's D-dimer is greater than 10,000 started on prophylactic Lovenox as recent CTA chest and bilateral lower extremity Doppler ultrasound were negative. 01/22: Patient has been taken off BiPAP therapy and placed on high flow nasal cannula. Patient has been downgraded to IMCU. Patient's hyponatremia and hypochloremia have worsened. Hospitalist Physical - Constitutional Vitals: Temp Pulse Resp BP Pulse Ox 98.5 F 111 H 17 176/81 95 01/22/21 13:20 01/22/21 15:00 01/22/21 15:00 01/22/21 15:16 01/22/21 15:16 General appearance: Present: well-nourished, other (Resting comfortably on BiPAP) - EENT Eyes: Present: PERRL, EOM intact ENT: clear oral mucosa - Neck Neck: Present: normal ROM - Respiratory Respiratory effort: normal Respiratory: bilateral: diminished - Cardiovascular Rhythm: regular Heart Sounds: Present: S1 & S2. Absent: systolic murmur, diastolic murmur - Extremities Extremities: no ischemia, pulses intact, pulses symmetrical, No edema, normal temperature, normal color Peripheral Pulses: within normal limits - Abdominal General gastrointestinal: soft, non-tender, non-distended, normal bowel sounds - Integumentary Integumentary: Present: warm, dry - Psychiatric Psychiatric: cooperative - Neurologic Neurologic: CNII-XII intact, no focal deficits, moves all extremities - Allied Health Allied health notes reviewed: nursing, RT HEART Score - HEART Score Troponin: Troponin T < 0.010 ng/mL (0.00-0.029) 01/17/21 16:41 Results - Labs CBC & Chem 7: 01/22/21 08:25 01/22/21 08:25 Labs: Laboratory Last Values WBC 8.4 K/mm3 (4.5-11.0) 01/22/21 08:25 RBC 5.44 M/mm3 (3.65-5.03) H 01/22/21 08:25 Hgb 12.3 gm/dl (10.1-14.3) 01/22/21 08:25 Hct 40.7 % (30.3-42.9) 01/22/21 08:25 MCV 75 fl (79-97) L 01/22/21 08:25 MCH 23 pg (28-32) L 01/22/21 08:25 MCHC 30 % (30-34) 01/22/21 08:25 RDW 15.5 % (13.2-15.2) H 01/22/21 08:25 Plt Count 318 K/mm3 (140-440) 01/22/21 08:25 Lymph % (Auto) 9.4 % (13.4-35.0) L 01/17/21 16:41 [place] % (Auto) 5.0 % (0.0-7.3) 01/17/21 16:41 Eos % (Auto) 0.0 % (0.0-4.3) 01/17/21 16:41 Baso % (Auto) 0.2 % (0.0-1.8) 01/17/21 16:41 Lymph # (Auto) 0.8 K/mm3 (1.2-5.4) L 01/17/21 16:41 [place] # (Auto) 0.4 K/mm3 (0.0-0.8) 01/17/21 16:41 Eos # (Auto) 0.0 K/mm3 (0.0-0.4) 01/17/21 16:41 Baso # (Auto) 0.0 K/mm3 (0.0-0.1) 01/17/21 16:41 Add Manual Diff Complete 01/19/21 05:11 Total Counted 100 01/19/21 05:11 Seg Neutrophils % Director Sales Support 01/19/21 05:11 Seg Neuts % (Manual) 88.0 % (40.0-70.0) H 01/19/21 05:11 Lymphocytes % (Manual) 10.0 % (13.4-35.0) L 01/19/21 05:11 Monocytes % (Manual) 2.0 % (0.0-7.3) 01/19/21 05:11 Nucleated RBC % Not Reportable 01/19/21 05:11 Seg Neutrophils # 7.6 K/mm3 (1.8-7.7) 01/17/21 16:41 Seg Neutrophils # Man 12.5 K/mm3 (1.8-7.7) H 01/19/21 05:11 Band Neutrophils # 0.0 K/mm3 01/19/21 05:11 Lymphocytes # (Manual) 1.4 K/mm3 (1.2-5.4) 01/19/21 05:11 Abs React Lymphs (Man) 0.0 K/mm3 01/19/21 05:11 Monocytes # (Manual) 0.3 K/mm3 (0.0-0.8) 01/19/21 05:11 Eosinophils # (Manual) 0.0 K/mm3 (0.0-0.4) 01/19/21 05:11 Basophils # (Manual) 0.0 K/mm3 (0.0-0.1) 01/19/21 05:11 Metamyelocytes # 0.0 K/mm3 01/19/21 05:11 Myelocytes # 0.0 K/mm3 01/19/21 05:11 Promyelocytes # 0.0 K/mm3 01/19/21 05:11 Blast Cells # 0.0 K/mm3 01/19/21 05:11 WBC Morphology Not Reportable 01/19/21 05:11 Hypersegmented Neuts Not Reportable 01/19/21 05:11 Hyposegmented Neuts Not Reportable 01/19/21 05:11 Hypogranular Neuts Not Reportable 01/19/21 05:11 Smudge Cells Not Reportable 01/19/21 05:11 Toxic Granulation Not Reportable 01/19/21 05:11 Toxic Vacuolation Not Reportable 01/19/21 05:11 Dohle Bodies Not Reportable 01/19/21 05:11 Pelger-Huet Anomaly Not Reportable 01/19/21 05:11 Inder Rods Not Reportable 01/19/21 05:11 Platelet Estimate Consistent w auto 01/19/21 05:11 Clumped Platelets Not Reportable 01/19/21 05:11 Plt Clumps, EDTA Not Reportable 01/19/21 05:11 Large Platelets Not Reportable 01/19/21 05:11 Giant Platelets Not Reportable 01/19/21 05:11 Platelet Satelliting Not Reportable 01/19/21 05:11 Plt Morphology Comment Not Reportable 01/19/21 05:11 RBC Morphology Not Reportable 01/19/21 05:11 Dimorphic RBCs Not Reportable 01/19/21 05:11 Polychromasia Not Reportable 01/19/21 05:11 Hypochromasia 1+ 01/19/21 05:11 Poikilocytosis Not Reportable 01/19/21 05:11 Anisocytosis Not Reportable 01/19/21 05:11 Microcytosis Not Reportable 01/19/21 05:11 Macrocytosis Not Reportable 01/19/21 05:11 Spherocytes Not Reportable 01/19/21 05:11 Pappenheimer Bodies Not Reportable 01/19/21 05:11 Sickle Cells Not Reportable 01/19/21 05:11 Target Cells Not Reportable 01/19/21 05:11 Tear Drop Cells Not Reportable 01/19/21 05:11 Ovalocytes Not Reportable 01/19/21 05:11 Helmet Cells Not Reportable 01/19/21 05:11 [place] Bodies Not Reportable 01/19/21 05:11 [place] Rings Not Reportable 01/19/21 05:11 [place] Cells Not Reportable 01/19/21 05:11 Bite Cells Not Reportable 01/19/21 05:11 Crenated Cell Not Reportable 01/19/21 05:11 Elliptocytes Not Reportable 01/19/21 05:11 Acanthocytes (Spur) Not Reportable 01/19/21 05:11 Rouleaux Not Reportable 01/19/21 05:11 Hemoglobin C Crystals Not Reportable 01/19/21 05:11 Schistocytes Not Reportable 01/19/21 05:11 Malaria parasites Not Reportable 01/19/21 05:11 [place] Bodies Not Reportable 01/19/21 05:11 Hem Pathologist Commnt No 01/19/21 05:11 D-Dimer > 22218 ng/mlDDU (0-234) H 01/21/21 04:45 ABG pH 7.461 pH Units (7.350-7.450) H 01/18/21 17:18 ABG pCO2 36.6 mm Hg 01/18/21 17:18 ABG pO2 53.1 mm Hg (80.0-90.0) L 01/18/21 17:18 ABG HCO3 25.5 mmol/L (20.0-26.0) 01/18/21 17:18 ABG O2 Saturation 89.4 % (95.0-99.0) L 01/18/21 17:18 ABG O2 Content 15.1 (0.0-44) 01/18/21 17:18 ABG Base Excess 1.9 mmol/L (-2.0-3.0) 01/18/21 17:18 ABG Hemoglobin 12.2 gm/dl (12.0-16.0) 01/18/21 17:18 ABG Carboxyhemoglobin 1.2 % (0.0-5.0) 01/18/21 17:18 ABG Methemoglobin 0.5 % (0.0-1.5) 01/18/21 17:18 Oxyhemoglobin 88.0 % (95.0-99.0) L 01/18/21 17:18 FiO2 100 % 01/18/21 17:18 Sodium 155 mmol/L (137-145) H 01/22/21 08:25 Potassium 4.0 mmol/L (3.6-5.0) 01/22/21 08:25 Chloride 112.4 mmol/L (98-107) H 01/22/21 08:25 Carbon Dioxide 30 mmol/L (22-30) 01/22/21 08:25 Anion Gap 17 mmol/L 01/22/21 08:25 BUN 33 mg/dL (7-17) H 01/22/21 08:25 Creatinine 0.7 mg/dL (0.6-1.2) 01/22/21 08:25 Estimated GFR > 60 ml/min 01/22/21 08:25 BUN/Creatinine Ratio 47 % 01/22/21 08:25 Glucose 274 mg/dL (65-100) H 01/22/21 08:25 POC Glucose 265 mg/dL (70-105) H 01/22/21 11:53 Lactic Acid 1.70 mmol/L (0.7-2.0) 01/17/21 16:41 Calcium 8.9 mg/dL (8.4-10.2) 01/22/21 08:25 Ferritin 1688.0 ng/mL (10.0-200.0) H 01/21/21 04:45 Total Bilirubin 0.30 mg/dL (0.1-1.2) 01/21/21 11:29 AST 34 units/L (5-40) 01/21/21 11:29 ALT 38 units/L (7-56) 01/21/21 11:29 Alkaline Phosphatase 117 units/L (35-129) 01/21/21 11:29 Lactate Dehydrogenase 649 units/L (91-180) H 01/21/21 04:45 Troponin T < 0.010 ng/mL (0.00-0.029) 01/17/21 16:41 C-Reactive Protein 17.00 mg/dL (0.00-1.30) H 01/21/21 04:45 NT-Pro-B Natriuret Pep 40.88 pg/mL (0-900) 01/17/21 16:41 Total Protein 7.3 g/dL (6.3-8.2) 01/21/21 11:29 Albumin 3.4 g/dL (3.9-5) L 01/21/21 11:29 Albumin/Globulin Ratio 0.9 % 01/21/21 11:29 Procalcitonin 0.39 ng/mL (<0.15) 01/17/21 17:46 Coronavirus (PCR) Positive (Negative) A 01/17/21 09:25 Microbiology: Microbiology 01/17/21 16:41 Peripheral/Venous Blood Culture - Preliminary NO GROWTH AFTER 4 DAYS 01/17/21 16:47 Peripheral/Venous Blood Culture - Preliminary NO GROWTH AFTER 4 DAYS Estrada/IV: Voiding Method External Female Catheter Active Medications - Current Medications Current Medications: Generic Name Dose Route Start Last Admin Trade Name Freq PRN Reason Stop Dose Admin Acetaminophen 650 mg 01/18/21 00:36 01/18/21 17:32 Acetaminophen 325 Mg Tab PO 650 mg Q4H PRN Administration Pain MILD(1-3)/Fever >100.5/PAN Albuterol/Ipratropium 1 ampul 01/18/21 02:00 01/22/21 14:44 Ipratropium/Albuterol Sulfate 3 Ml Ampul.Neb IH 1 ampul Q6HRT PJ Administration Dexamethasone 6 mg 01/20/21 10:00 01/22/21 09:43 Dexamethasone 4 Mg/Ml Vial IV 01/28/21 22:01 6 mg BID PJ Administration Enoxaparin Sodium 100 mg 01/21/21 10:00 01/22/21 09:43 Enoxaparin 100 Mg/1 Ml Inj 1 mg/kg (100 mg) 100 mg SUB-Q Administration Q12HR PJ Protocol Famotidine 20 mg 01/18/21 10:00 01/22/21 09:44 Famotidine 20 Mg Tab PO 20 mg BID PJ Administration Haloperidol 0.5 mg 01/21/21 22:00 01/22/21 09:43 Haloperidol 1 Mg Tab PO 0.5 mg BID PJ Administration Hydralazine HCl 10 mg 01/18/21 00:38 01/22/21 10:45 Hydralazine 20 Mg/1 Ml Inj IV 10 mg Q6H PRN Administration htn Hydromorphone HCl 0.5 mg 01/20/21 11:00 Hydromorphone 1 Mg/1 Ml Inj IV Q6H PRN Pain , Severe (7-10) Ceftriaxone Sodium 2 gm in 100 mls @ 200 mls/hr 01/18/21 22:00 01/21/21 22:27 Rocephin/Ns 2 Gm/100 Ml IV 01/22/21 22:29 200 mls/hr Q24H PJ Administration Protocol Azithromycin 500 mg in 250 mls @ 250 mls/hr 01/18/21 22:00 01/21/21 22:28 Zithromax/Ns IV 01/22/21 22:59 250 mls/hr Q24H PJ Administration Protocol REMDESIVIR 100 mg/ Sodium 250 mls @ 500 mls/hr 01/21/21 21:00 01/21/21 21:28 Chloride IV 01/23/21 21:29 500 mls/hr Q24HR@2100 PJ Administration Insulin Glargine 20 units 01/20/21 22:00 01/21/21 22:27 Insulin Glargine 100 Units/Ml SUB-Q 20 units QHS PJ Administration Insulin Glargine 10 units 01/21/21 12:00 01/22/21 09:44 Insulin Glargine 100 Units/Ml SUB-Q 10 units DAILY PJ Administration Insulin Human Lispro 0 unit 01/21/21 14:00 01/22/21 14:55 Insulin Lispro 100 Unit/Ml SUB-Q 6 unit Q4HR PJ Administration Protocol Mirtazapine 7.5 mg 01/21/21 22:00 01/21/21 22:27 Mirtazapine 15 Mg Tab PO Not Given QHS [facility] Ondansetron HCl 4 mg 01/18/21 00:36 Ondansetron 4 Mg/2 Ml Inj IV Q8H PRN Nausea And Vomiting Sodium Chloride 10 ml 01/18/21 10:00 01/22/21 09:44 Sodium Chloride 0.9% 10 Ml Flush Syringe IV 10 ml BID PJ Administration Sodium Chloride 10 ml 01/18/21 00:36 Sodium Chloride 0.9% 10 Ml Flush Syringe IV PRN PRN LINE FLUSH Sodium Chloride 50 ml 01/18/21 21:00 01/21/21 21:28 Sodium Chloride 0.9% 50 Ml Ivpb IV 01/23/21 21:01 50 ml Q24HR@2100 PJ Administration Ziprasidone 10 mg 01/20/21 10:57 01/21/21 21:29 Ziprasidone Mesylate 20 Mg Vial IM 10 mg Q6H PRN Administration AGITATION
[2021-01-22] MEDS: REMDESIVIR 100 MG in SODIUM CHLORIDE 0.9% 250ML 250 ML IV SCH (23:45)
[2021-01-22] MEDS: SODIUM CHLORIDE 0.9% 50 ML IVPB IV SCH (23:45)
[2021-01-22] MEDS: ACETAMINOPHEN 325 MG TAB PO PRN (23:46)
[2021-01-22] MEDS: MIRTAZAPINE 15 MG TAB PO SCH (23:46)
[2021-01-23] MEDS: cefTRIAXone/NS 2 GM/100 ML 2 GM/100 ML BAG IV SCH (00:36)
[2021-01-23] MEDS: hydrALAZINE 20 MG/1 ML INJ IV PRN ×4 (00:37→18:24)
[2021-01-23] MEDS: AZITHROMYCIN/NS 500 MG/250 ML 500 MG/250 ML BAG IV SCH (00:37)
[2021-01-23] MEDS: IPRATROPIUM/ALBUTEROL SULFATE 3 ML AMPUL.NEB IH SCH ×4 (02:53→19:41)
[2021-01-23] MEDS: INSULIN LISPRO 100 UNIT/ML SUB-Q SCH ×6 (05:25→23:16)
[2021-01-23 06:52] LABS: C-Reactive Protein 5.8 mg/dL (0.00-1.30)
[2021-01-23] MEDS: dexAMETHasone 4 MG/ML VIAL IV SCH ×2 (09:03→22:58)
[2021-01-23] MEDS: INSULIN GLARGINE 100 UNITS/ML SUB-Q SCH ×2 (09:04→22:58)
[2021-01-23] MEDS: ENOXAPARIN 100 MG/1 ML INJ SUB-Q SCH ×2 (09:04→22:59)
[2021-01-23] MEDS: FAMOTIDINE 20 MG TAB PO SCH ×2 (09:04→22:58)
[2021-01-23] MEDS: HALOPERIDOL 1 MG TAB PO SCH ×2 (09:04→22:57)
--- NOTE | 2021-01-23 09:53 | Progress Note ---
Subjective - Reason for Consult Consult date: 01/23/21 Reason for consult: pulling out lines - Chief Complaint Chief complaint: Per the nurse caring for the patient today, she says the patient has not been combative, but had been pulling off her oxygen. She says the patient has been sleeping okay. The patient was seen today, she is lying in bed in wrist restraints. She is asleep. She has a bipap on. The patient waves when I enter the room and call her name. She nods her head when I'm speaking to her. REVIEW OF SYSTEMS on Bipap MENTAL STATUS EXAMINATION Unable to obtain Assessment and Plan (1) Schizophrenia Current Visit: Yes Status: Acute Treatment Plan Continue Haldol 0.5mg po BID Continue Mirtazepin 7.5mg po daily sitter: defer to primary Medical: per primary Disposition: Do not recommend acute psychiatric inpatient treatment Will follow. Thank you for this consult Case staffed with Dr. Wallace Mental Status Exam - Vital signs Last Vital Signs Temp 97.8 F 01/23/21 08:00 Pulse 133 H 01/23/21 09:20 Resp 25 H 01/23/21 09:20 BP 167/86 01/23/21 09:20 Pulse Ox 93 01/23/21 09:20
--- NOTE | 2021-01-23 10:30 | Progress Note ---
Assessment and Plan Assessment and plan: This is a 55-year-old female with schizophrenia who presented to [facility] on 01/18 for shortness of breath, cough, subjective fever and not feeling well for the last couple days with known COVID-19 exposure. While in the emergency room patient was switched from non rebreather mask to high flow nasal cannula and his CTA chest showed no acute pulmonary embolism. Patient was admitted to the hospital service as a COVID-19 PUI with consults to CCM, infectious disease, psych. Severe COVID-19 pneumonia Acute hypoxic respiratory failure Obesity Schizophrenia Leukocytosis Hyperglycemia Schizophrenia Hypernatremia Hypercholermia -CCM, infectious disease, psychiatry consulted, appreciate recommendations -COVID-19 PCR positive -Droplet/contact isolation -Remdesivir, azithromycin, ceftriaxone, dexamethasone (twice daily dosing) -s/p Actemra -Wean supplemental oxygen as tolerated, pulmonary hygiene -Prone as tolerated -Trend COVID-19 inflammatory markers for risk stratification, CBC, CMP -SSI, Lantus -01/18 bilateral lower extremity Doppler ultrasound negative for DVT -01/17 CTA shows no evidence of pulmonary embolism, extensive bilateral pneumonia, hepatomegaly with hepatic steatosis 01/18/2021 -Acute hypoxic respiratory failure requiring high flow oxygen 40 L. Nebulizer treatment -Patient is admitted for suspected Covid pneumonia. Patient is on dexamethasone, COVID-19 test is pending. Patient is on empiric antibiotics. -ID consulted, will consult pulmonary. -Patient has hyponatremia yesterday and I will repeat and if it is low I will manage accordingly -Patient has elevated D-dimer and CTA chest and bilateral Doppler ultrasound of the lower extremities pending 01/19/2021 -Acute hypoxic respiratory failure currently on BiPAP, nebulizer treatment. I will put in orders to transfer to [facility] yesterday but there was no bed. -Patient is positive for Covid and she is on Decadron and remdesivir. Actemra was ordered on 01/19/2021 -ID evaluated the patient and recommend to continue Decadron and remdesivir, also to continue ceftriaxone and azithromycin for 5 days because of the elevated procalcitonin level. Pulmonary was consulted and recommend to continue current management and add Lasix -CTA chest was done and significant for bilateral pulmonary opacities, negative for PE, Doppler ultrasound of the lower extremities was negative for DVT. -Prognosis is guarded. -Patient is currently on BiPAP and she was agitated and trying to take off the BiPAP, I put the patient on restraints. Discussed with overnight houseperson to transfer the patient to IMCU and if there is no bed she need to be transferred to CCU. 01/20: Patient received 5 mg of Haldol for severe agitation and refusal to keep high flow nasal cannula in place. [facility] ordered Lasix again. Psych was consulted today. Patient was on BiPAP therapy all night and RT attempted to give her a break patient is on high flow nasal cannula however she did not keep this in place and was paced back on BiPAP after receiving Haldol. She was started on Lantus today. 01/21: Patient is on BiPAP and on time examination was on 20/10 100% FiO2. Patient was started on Lantus. Psych consult completed and started on Haldol p.o. twice daily and Mirtazepin PO daily. No acute events reported overnight. Patient's D-dimer is greater than 10,000 started on prophylactic Lovenox as recent CTA chest and bilateral lower extremity Doppler ultrasound were negative. 01/22: Patient has been taken off BiPAP therapy and placed on high flow nasal cannula. Patient has been downgraded to IMCU. Patient's hyponatremia and hypochloremia have worsened. 01/23: Patient was on BiPAP overnight with FiO2 85% and IPAP 20/EPAP 10. Patient currently with high flow nasal cannula 40 L O2 with an FiO2 of 100%. Continue remdesivir and dexamethasone. Patient is s/p Actemra on 01/20. Continue empiric antibiotics per ID recommendations. Continue anticoagulation per protocol. History Interval history: No new issues Hospitalist Physical - Constitutional Vitals: Temp Pulse Resp BP Pulse Ox 97.8 F 133 H 25 H 167/86 93 01/23/21 08:00 01/23/21 09:20 01/23/21 09:20 01/23/21 09:20 01/23/21 09:20 General appearance: Present: well-nourished, other (Resting comfortably on BiPAP) - EENT Eyes: Present: PERRL, EOM intact ENT: hearing intact, clear oral mucosa, dentition normal - Neck Neck: Present: supple, normal ROM - Respiratory Respiratory effort: normal Respiratory: bilateral: CTA - Cardiovascular Rhythm: regular Heart Sounds: Present: S1 & S2. Absent: gallop, rub - Extremities Extremities: no ischemia, No edema, Full ROM - Abdominal General gastrointestinal: soft, non-tender, non-distended, normal bowel sounds - Integumentary Integumentary: Present: clear, warm, dry - Neurologic Neurologic: CNII-XII intact, moves all extremities HEART Score - HEART Score Troponin: Troponin T < 0.010 ng/mL (0.00-0.029) 01/17/21 16:41 Results - Labs CBC & Chem 7: 01/22/21 08:25 01/22/21 08:25 Labs: Laboratory Last Values WBC 8.4 K/mm3 (4.5-11.0) 01/22/21 08:25 RBC 5.44 M/mm3 (3.65-5.03) H 01/22/21 08:25 Hgb 12.3 gm/dl (10.1-14.3) 01/22/21 08:25 Hct 40.7 % (30.3-42.9) 01/22/21 08:25 MCV 75 fl (79-97) L 01/22/21 08:25 MCH 23 pg (28-32) L 01/22/21 08:25 MCHC 30 % (30-34) 01/22/21 08:25 RDW 15.5 % (13.2-15.2) H 01/22/21 08:25 Plt Count 318 K/mm3 (140-440) 01/22/21 08:25 Lymph % (Auto) 9.4 % (13.4-35.0) L 01/17/21 16:41 [place] % (Auto) 5.0 % (0.0-7.3) 01/17/21 16:41 Eos % (Auto) 0.0 % (0.0-4.3) 01/17/21 16:41 Baso % (Auto) 0.2 % (0.0-1.8) 01/17/21 16:41 Lymph # (Auto) 0.8 K/mm3 (1.2-5.4) L 01/17/21 16:41 [place] # (Auto) 0.4 K/mm3 (0.0-0.8) 01/17/21 16:41 Eos # (Auto) 0.0 K/mm3 (0.0-0.4) 01/17/21 16:41 Baso # (Auto) 0.0 K/mm3 (0.0-0.1) 01/17/21 16:41 Add Manual Diff Complete 01/19/21 05:11 Total Counted 100 01/19/21 05:11 Seg Neutrophils % Claims Adjustor 01/19/21 05:11 Seg Neuts % (Manual) 88.0 % (40.0-70.0) H 01/19/21 05:11 Lymphocytes % (Manual) 10.0 % (13.4-35.0) L 01/19/21 05:11 Monocytes % (Manual) 2.0 % (0.0-7.3) 01/19/21 05:11 Nucleated RBC % Not Reportable 01/19/21 05:11 Seg Neutrophils # 7.6 K/mm3 (1.8-7.7) 01/17/21 16:41 Seg Neutrophils # Man 12.5 K/mm3 (1.8-7.7) H 01/19/21 05:11 Band Neutrophils # 0.0 K/mm3 01/19/21 05:11 Lymphocytes # (Manual) 1.4 K/mm3 (1.2-5.4) 01/19/21 05:11 Abs React Lymphs (Man) 0.0 K/mm3 01/19/21 05:11 Monocytes # (Manual) 0.3 K/mm3 (0.0-0.8) 01/19/21 05:11 Eosinophils # (Manual) 0.0 K/mm3 (0.0-0.4) 01/19/21 05:11 Basophils # (Manual) 0.0 K/mm3 (0.0-0.1) 01/19/21 05:11 Metamyelocytes # 0.0 K/mm3 01/19/21 05:11 Myelocytes # 0.0 K/mm3 01/19/21 05:11 Promyelocytes # 0.0 K/mm3 01/19/21 05:11 Blast Cells # 0.0 K/mm3 01/19/21 05:11 WBC Morphology Not Reportable 01/19/21 05:11 Hypersegmented Neuts Not Reportable 01/19/21 05:11 Hyposegmented Neuts Not Reportable 01/19/21 05:11 Hypogranular Neuts Not Reportable 01/19/21 05:11 Smudge Cells Not Reportable 01/19/21 05:11 Toxic Granulation Not Reportable 01/19/21 05:11 Toxic Vacuolation Not Reportable 01/19/21 05:11 Dohle Bodies Not Reportable 01/19/21 05:11 Pelger-Huet Anomaly Not Reportable 01/19/21 05:11 Inder Rods Not Reportable 01/19/21 05:11 Platelet Estimate Consistent w auto 01/19/21 05:11 Clumped Platelets Not Reportable 01/19/21 05:11 Plt Clumps, EDTA Not Reportable 01/19/21 05:11 Large Platelets Not Reportable 01/19/21 05:11 Giant Platelets Not Reportable 01/19/21 05:11 Platelet Satelliting Not Reportable 01/19/21 05:11 Plt Morphology Comment Not Reportable 01/19/21 05:11 RBC Morphology Not Reportable 01/19/21 05:11 Dimorphic RBCs Not Reportable 01/19/21 05:11 Polychromasia Not Reportable 01/19/21 05:11 Hypochromasia 1+ 01/19/21 05:11 Poikilocytosis Not Reportable 01/19/21 05:11 Anisocytosis Not Reportable 01/19/21 05:11 Microcytosis Not Reportable 01/19/21 05:11 Macrocytosis Not Reportable 01/19/21 05:11 Spherocytes Not Reportable 01/19/21 05:11 Pappenheimer Bodies Not Reportable 01/19/21 05:11 Sickle Cells Not Reportable 01/19/21 05:11 Target Cells Not Reportable 01/19/21 05:11 Tear Drop Cells Not Reportable 01/19/21 05:11 Ovalocytes Not Reportable 01/19/21 05:11 Helmet Cells Not Reportable 01/19/21 05:11 [place] Bodies Not Reportable 01/19/21 05:11 [place] Rings Not Reportable 01/19/21 05:11 Giorgio Cells Not Reportable 01/19/21 05:11 Bite Cells Not Reportable 01/19/21 05:11 Crenated Cell Not Reportable 01/19/21 05:11 Elliptocytes Not Reportable 01/19/21 05:11 Acanthocytes (Spur) Not Reportable 01/19/21 05:11 Rouleaux Not Reportable 01/19/21 05:11 Hemoglobin C Crystals Not Reportable 01/19/21 05:11 Schistocytes Not Reportable 01/19/21 05:11 Malaria parasites Not Reportable 01/19/21 05:11 Chai Bodies Not Reportable 01/19/21 05:11 Hem Pathologist Commnt No 01/19/21 05:11 D-Dimer > 39572 ng/mlDDU (0-234) H 01/21/21 04:45 ABG pH 7.461 pH Units (7.350-7.450) H 01/18/21 17:18 ABG pCO2 36.6 mm Hg 01/18/21 17:18 ABG pO2 53.1 mm Hg (80.0-90.0) L 01/18/21 17:18 ABG HCO3 25.5 mmol/L (20.0-26.0) 01/18/21 17:18 ABG O2 Saturation 89.4 % (95.0-99.0) L 01/18/21 17:18 ABG O2 Content 15.1 (0.0-44) 01/18/21 17:18 ABG Base Excess 1.9 mmol/L (-2.0-3.0) 01/18/21 17:18 ABG Hemoglobin 12.2 gm/dl (12.0-16.0) 01/18/21 17:18 ABG Carboxyhemoglobin 1.2 % (0.0-5.0) 01/18/21 17:18 ABG Methemoglobin 0.5 % (0.0-1.5) 01/18/21 17:18 Oxyhemoglobin 88.0 % (95.0-99.0) L 01/18/21 17:18 FiO2 100 % 01/18/21 17:18 Sodium 155 mmol/L (137-145) H 01/22/21 08:25 Potassium 4.0 mmol/L (3.6-5.0) 01/22/21 08:25 Chloride 112.4 mmol/L (98-107) H 01/22/21 08:25 Carbon Dioxide 30 mmol/L (22-30) 01/22/21 08:25 Anion Gap 17 mmol/L 01/22/21 08:25 BUN 33 mg/dL (7-17) H 01/22/21 08:25 Creatinine 0.7 mg/dL (0.6-1.2) 01/22/21 08:25 Estimated GFR > 60 ml/min 01/22/21 08:25 BUN/Creatinine Ratio 47 % 01/22/21 08:25 Glucose 274 mg/dL (65-100) H 01/22/21 08:25 POC Glucose 303 mg/dL (70-105) H 01/23/21 05:46 Lactic Acid 1.70 mmol/L (0.7-2.0) 01/17/21 16:41 Calcium 8.9 mg/dL (8.4-10.2) 01/22/21 08:25 Ferritin 1116.0 ng/mL (10.0-200.0) H 01/23/21 05:59 Total Bilirubin 0.30 mg/dL (0.1-1.2) 01/21/21 11:29 AST 34 units/L (5-40) 01/21/21 11:29 ALT 38 units/L (7-56) 01/21/21 11:29 Alkaline Phosphatase 117 units/L (35-129) 01/21/21 11:29 Lactate Dehydrogenase 680 units/L (91-180) H 01/23/21 05:59 Troponin T < 0.010 ng/mL (0.00-0.029) 01/17/21 16:41 C-Reactive Protein 5.80 mg/dL (0.00-1.30) H 01/23/21 05:59 NT-Pro-B Natriuret Pep 40.88 pg/mL (0-900) 01/17/21 16:41 Total Protein 7.3 g/dL (6.3-8.2) 01/21/21 11:29 Albumin 3.4 g/dL (3.9-5) L 01/21/21 11:29 Albumin/Globulin Ratio 0.9 % 01/21/21 11:29 Procalcitonin 0.39 ng/mL (<0.15) 01/17/21 17:46 Coronavirus (PCR) Positive (Negative) A 01/17/21 09:25 Microbiology: Microbiology 01/17/21 16:41 Peripheral/Venous Blood Culture - Final NO GROWTH AFTER 5 DAYS 01/17/21 16:47 Peripheral/Venous Blood Culture - Final NO GROWTH AFTER 5 DAYS Estrada/IV: Voiding Method External Female Catheter Active Medications - Current Medications Current Medications: Generic Name Dose Route Start Last Admin Trade Name Freq PRN Reason Stop Dose Admin Acetaminophen 650 mg 01/18/21 00:36 01/22/21 23:46 Acetaminophen 325 Mg Tab PO 650 mg Q4H PRN Administration Pain MILD(1-3)/Fever >100.5/PAN Albuterol/Ipratropium 1 ampul 01/18/21 02:00 01/23/21 09:06 Ipratropium/Albuterol Sulfate 3 Ml Ampul.Neb IH 1 ampul Q6HRT PJ Administration Dexamethasone 6 mg 01/20/21 10:00 01/23/21 09:03 Dexamethasone 4 Mg/Ml Vial IV 01/28/21 22:01 6 mg BID PJ Administration Enoxaparin Sodium 100 mg 01/21/21 10:00 01/23/21 09:04 Enoxaparin 100 Mg/1 Ml Inj 1 mg/kg (100 mg) 100 mg SUB-Q Administration Q12HR [facility] Protocol Famotidine 20 mg 01/18/21 10:00 01/23/21 09:04 Famotidine 20 Mg Tab PO 20 mg BID PJ Administration Haloperidol 0.5 mg 01/21/21 22:00 01/23/21 09:04 Haloperidol 1 Mg Tab PO 0.5 mg BID PJ Administration Hydralazine HCl 10 mg 01/18/21 00:38 01/23/21 05:29 Hydralazine 20 Mg/1 Ml Inj IV 10 mg Q6H PRN Administration htn Hydromorphone HCl 0.5 mg 01/20/21 11:00 Hydromorphone 1 Mg/1 Ml Inj IV Q6H PRN Pain , Severe (7-10) REMDESIVIR 100 mg/ Sodium 250 mls @ 500 mls/hr 01/21/21 21:00 01/22/21 23:45 Chloride IV 01/23/21 21:29 500 mls/hr Q24HR@2100 PJ Administration Insulin Glargine 20 units 01/20/21 22:00 01/22/21 23:48 Insulin Glargine 100 Units/Ml SUB-Q 20 units QHS PJ Administration Insulin Glargine 10 units 01/21/21 12:00 01/23/21 09:04 Insulin Glargine 100 Units/Ml SUB-Q 10 units DAILY PJ Administration Insulin Human Lispro 0 unit 01/21/21 14:00 01/23/21 09:28 Insulin Lispro 100 Unit/Ml SUB-Q 6 unit Q4HR PJ Administration Protocol Mirtazapine 7.5 mg 01/21/21 22:00 01/22/21 23:46 Mirtazapine 15 Mg Tab PO 7.5 mg QHS PJ Administration Ondansetron HCl 4 mg 01/18/21 00:36 Ondansetron 4 Mg/2 Ml Inj IV Q8H PRN Nausea And Vomiting Sodium Chloride 10 ml 01/18/21 10:00 01/23/21 09:04 Sodium Chloride 0.9% 10 Ml Flush Syringe IV Not Given BID PJ Sodium Chloride 10 ml 01/18/21 00:36 Sodium Chloride 0.9% 10 Ml Flush Syringe IV PRN PRN LINE FLUSH Sodium Chloride 50 ml 01/18/21 21:00 01/22/21 23:45 Sodium Chloride 0.9% 50 Ml Ivpb IV 01/23/21 21:01 50 ml Q24HR@2100 PJ Administration Ziprasidone 10 mg 01/20/21 10:57 01/21/21 21:29 Ziprasidone Mesylate 20 Mg Vial IM 10 mg Q6H PRN Administration AGITATION
--- NOTE | 2021-01-23 12:53 | Progress Note ---
Assessment and Plan Cultures: COVID-19 PCR: Positive 01/17/2021 blood culture: No growth A/P: 55-year-old female past medical history schizophrenia admitted to hospital with COVID-19. #Severe COVID-19 pneumonia: Inflammatory markers elevated. No evidence of pulmonary embolism on CT. s/p abx. #Acute hypoxemic respiratory failure: secondary to COVID-19 infection. On HFNC. #Obesity Recs: -Continue Decadron, agree with higher dose due to obesity -Continue Remdesivir, complete 5 days -s/p Actemra 01/20/2021, s/p abx -Anticoagulation per protocol. D-dimer significantly worse -continue to monitor markers and d-dimer. CRP improving. Aiden Torres MD, FACP [facility] ([facility] O: [phone] F: [phone] Subjective Date of service: 01/23/21 Interval history: No fever. Remains on HFNC. Objective - Exam Narrative Exam: Physical Exam (reviewed in chart to minimize risk of transmission) Constitutional: deferred Head, Ears, Nose: deferred Eyes: deferred Neck: deferred Oral: deferred Cardiovascular: deferred Respiratory: deferred GI: deferred Musculoskeletal: deferred Skin: deferred Hem/Lymphatic: deferred Psych: deferred Neurological: deferred - Constitutional Vitals: Vital Signs Temp Pulse Resp BP Pulse Ox 98 F 114 H 20 164/88 93 01/23/21 12:00 01/23/21 12:01 01/23/21 12:00 01/23/21 12:01 01/23/21 12:00 Temperature -Last 24 Hours Temperature 98 F Temperature 97.8 F Temperature 98.8 F Temperature 97.8 F Temperature 98.1 F Temperature 98.1 F Temperature 98.5 F - Labs CBC & Chem 7: 01/22/21 08:25 01/22/21 08:25 Labs: Abnormal lab results 01/22/21 01/22/21 01/23/21 Range/Units 16:03 21:41 02:03 POC Glucose 293 H 279 H 268 H (70-105) mg/dL Ferritin (10.0-200.0) ng/mL Lactate Dehydrogenase (91-180) units/L C-Reactive Protein (0.00-1.30) mg/dL 01/23/21 01/23/21 01/23/21 Range/Units 05:46 05:59 05:59 POC Glucose 303 H (70-105) mg/dL Ferritin 1116.0 H (10.0-200.0) ng/mL Lactate Dehydrogenase 680 H (91-180) units/L C-Reactive Protein 5.80 H (0.00-1.30) mg/dL
[2021-01-23] MEDS ORDERED: DEXTROSE 5% IN WATER 500 ML IV SCH (14:00)
--- NOTE | 2021-01-23 18:05 | Progress Note ---
Assessment and Plan Imp: 1. Covid-19 w/ viral pneumonia 2. ARDS 3. Acute resp. failure, hypoxia 4. Hypernatremia 5. Obesity Rec: 1. Decadaron IV 2. Remdesivir x 5 days 3. Agree with therapeutic Lovenox 4. Unable to prone due to lack of cooperation and need for restraints 5. Monitor inflammatory markers 6. Encourage free water intake; repeat labs in AM 7. Wean HFNC to keep sats 88% or > CCt 31 minutes Plan of care reviewed w/ patient, she understands/agrees Subjective Date of service: 01/23/21 Principal diagnosis: Covid-19 Interval history: No events. Awake, alert. On HFNC at 40LPM and 100% FiO2. + SOB. Agitated and requiring restraints. Active Medications Acetaminophen (Acetaminophen 325 Mg Tab) 650 mg PO Q4H PRN PRN Reason: Pain MILD(1-3)/Fever >100.5/PAN Last Admin: 01/22/21 23:46 Dose: 650 mg Documented by: Albuterol/Ipratropium (Ipratropium/Albuterol Sulfate 3 Ml Ampul.Neb) 1 ampul IH Q6HRT [facility] Last Admin: 01/23/21 14:58 Dose: 1 ampul Documented by: Dexamethasone (Dexamethasone 4 Mg/Ml Vial) 6 mg IV BID [facility] Stop: 01/28/21 22:01 Last Admin: 01/23/21 09:03 Dose: 6 mg Documented by: Enoxaparin Sodium (Enoxaparin 100 Mg/1 Ml Inj) 100 mg 1 mg/kg (100 mg) SUB-Q Q12HR [facility]; Protocol Last Admin: 01/23/21 09:04 Dose: 100 mg Documented by: Famotidine (Famotidine 20 Mg Tab) 20 mg PO BID [facility] Last Admin: 01/23/21 09:04 Dose: 20 mg Documented by: Haloperidol (Haloperidol 1 Mg Tab) 0.5 mg PO BID [facility] Last Admin: 01/23/21 09:04 Dose: 0.5 mg Documented by: Hydralazine HCl (Hydralazine 20 Mg/1 Ml Inj) 10 mg IV Q6H PRN PRN Reason: htn Last Admin: 01/23/21 12:01 Dose: 10 mg Documented by: Hydromorphone HCl (Hydromorphone 1 Mg/1 Ml Inj) 0.5 mg IV Q6H PRN PRN Reason: Pain , Severe (7-10) REMDESIVIR 100 mg/ Sodium (Chloride) 250 mls @ 500 mls/hr IV Q24HR@2100 [facility] Stop: 01/23/21 21:29 Last Admin: 01/22/21 23:45 Dose: 500 mls/hr Documented by: Insulin Glargine (Insulin Glargine 100 Units/Ml) 20 units SUB-Q QHS [facility] Last Admin: 01/22/21 23:48 Dose: 20 units Documented by: Insulin Glargine (Insulin Glargine 100 Units/Ml) 10 units SUB-Q DAILY [facility] Last Admin: 01/23/21 09:04 Dose: 10 units Documented by: Insulin Human Lispro (Insulin Lispro 100 Unit/Ml) 0 unit SUB-Q Q4HR [facility]; Protocol Last Admin: 01/23/21 17:10 Dose: 8 unit Documented by: Mirtazapine (Mirtazapine 15 Mg Tab) 7.5 mg PO QHS [facility] Last Admin: 01/22/21 23:46 Dose: 7.5 mg Documented by: Ondansetron HCl (Ondansetron 4 Mg/2 Ml Inj) 4 mg IV Q8H PRN PRN Reason: Nausea And Vomiting Sodium Chloride (Sodium Chloride 0.9% 10 Ml Flush Syringe) 10 ml IV BID [facility] Last Admin: 01/23/21 09:04 Dose: Not Given Documented by: Sodium Chloride (Sodium Chloride 0.9% 10 Ml Flush Syringe) 10 ml IV PRN PRN PRN Reason: LINE FLUSH Sodium Chloride (Sodium Chloride 0.9% 50 Ml Ivpb) 50 ml IV Q24HR@2100 [facility] Stop: 01/23/21 21:01 Last Admin: 01/22/21 23:45 Dose: 50 ml Documented by: Ziprasidone (Ziprasidone Mesylate 20 Mg Vial) 10 mg IM Q6H PRN PRN Reason: AGITATION Last Admin: 01/21/21 21:29 Dose: 10 mg Documented by: Objective Vital Signs - 12hr 01/23/21 01/23/21 01/23/21 06:00 06:30 06:40 Temperature Pulse Rate 123 H 115 H 112 H Pulse Rate [ Anterior Bilateral Throughout] Pulse Rate [ From Monitor] Respiratory 19 14 16 Rate Respiratory Rate [Anterior Bilateral Throughout] Blood Pressure 154/77 154/77 154/77 O2 Sat by Pulse 97 98 98 Oximetry 01/23/21 01/23/21 01/23/21 06:50 07:00 07:10 Temperature Pulse Rate 123 H 138 H 120 H Pulse Rate [ Anterior Bilateral Throughout] Pulse Rate [ From Monitor] Respiratory 17 35 H 20 Rate Respiratory Rate [Anterior Bilateral Throughout] Blood Pressure 154/77 200/95 172/79 O2 Sat by Pulse 99 81 L 98 Oximetry 01/23/21 01/23/21 01/23/21 07:20 07:30 07:40 Temperature Pulse Rate 118 H 119 H 116 H Pulse Rate [ Anterior Bilateral Throughout] Pulse Rate [ From Monitor] Respiratory 19 20 19 Rate Respiratory Rate [Anterior Bilateral Throughout] Blood Pressure 172/79 172/79 172/79 O2 Sat by Pulse 98 98 97 Oximetry 01/23/21 01/23/21 01/23/21 07:50 08:00 08:10 Temperature 97.8 F Pulse Rate 122 H 122 H 116 H Pulse Rate [ Anterior Bilateral Throughout] Pulse Rate [ 109 H From Monitor] Respiratory 17 14 14 Rate Respiratory Rate [Anterior Bilateral Throughout] Blood Pressure 172/79 162/85 162/85 O2 Sat by Pulse 97 94 96 Oximetry 01/23/21 01/23/21 01/23/21 08:20 08:30 08:40 Temperature Pulse Rate 115 H 122 H 138 H Pulse Rate [ Anterior Bilateral Throughout] Pulse Rate [ From Monitor] Respiratory 18 16 21 Rate Respiratory Rate [Anterior Bilateral Throughout] Blood Pressure 162/85 162/85 162/85 O2 Sat by Pulse 96 97 97 Oximetry 01/23/21 01/23/21 01/23/21 08:50 09:00 09:08 Temperature Pulse Rate 124 H 124 H Pulse Rate [ 133 H Anterior Bilateral Throughout] Pulse Rate [ From Monitor] Respiratory 20 21 Rate Respiratory 22 Rate [Anterior Bilateral Throughout] Blood Pressure 162/85 167/86 O2 Sat by Pulse 98 98 Oximetry 01/23/21 01/23/21 01/23/21 09:10 09:20 09:30 Temperature Pulse Rate 121 H 133 H 140 H Pulse Rate [ Anterior Bilateral Throughout] Pulse Rate [ From Monitor] Respiratory 20 25 H 29 H Rate Respiratory Rate [Anterior Bilateral Throughout] Blood Pressure 167/86 167/86 167/86 O2 Sat by Pulse 97 93 90 Oximetry 01/23/21 01/23/21 01/23/21 09:40 09:50 10:00 Temperature Pulse Rate 120 H 121 H 131 H Pulse Rate [ Anterior Bilateral Throughout] Pulse Rate [ From Monitor] Respiratory 22 22 17 Rate Respiratory Rate [Anterior Bilateral Throughout] Blood Pressure 167/86 167/86 165/84 O2 Sat by Pulse 97 97 95 Oximetry 01/23/21 01/23/21 01/23/21 10:11 10:21 10:31 Temperature Pulse Rate 121 H 126 H 115 H Pulse Rate [ Anterior Bilateral Throughout] Pulse Rate [ From Monitor] Respiratory 22 20 18 Rate Respiratory Rate [Anterior Bilateral Throughout] Blood Pressure 167/86 167/86 167/86 O2 Sat by Pulse 95 95 95 Oximetry 01/23/21 01/23/21 01/23/21 10:41 10:51 11:00 Temperature Pulse Rate 126 H 120 H 117 H Pulse Rate [ Anterior Bilateral Throughout] Pulse Rate [ From Monitor] Respiratory 21 21 18 Rate Respiratory Rate [Anterior Bilateral Throughout] Blood Pressure 167/86 167/86 168/88 O2 Sat by Pulse 95 93 94 Oximetry 01/23/21 01/23/21 01/23/21 11:11 11:21 11:31 Temperature Pulse Rate 118 H 123 H 117 H Pulse Rate [ Anterior Bilateral Throughout] Pulse Rate [ From Monitor] Respiratory 20 21 15 Rate Respiratory Rate [Anterior Bilateral Throughout] Blood Pressure 168/88 168/88 168/88 O2 Sat by Pulse 94 94 92 Oximetry 01/23/21 01/23/21 01/23/21 11:41 11:44 11:51 Temperature Pulse Rate 120 H 126 H Pulse Rate [ Anterior Bilateral Throughout] Pulse Rate [ 109 H From Monitor] Respiratory 19 20 21 Rate Respiratory Rate [Anterior Bilateral Throughout] Blood Pressure 168/88 168/88 O2 Sat by Pulse 94 95 91 Oximetry 01/23/21 01/23/21 01/23/21 12:00 12:01 12:11 Temperature 98 F Pulse Rate 124 H 114 H 115 H Pulse Rate [ Anterior Bilateral Throughout] Pulse Rate [ From Monitor] Respiratory 20 17 Rate Respiratory Rate [Anterior Bilateral Throughout] Blood Pressure 159/88 164/88 159/88 O2 Sat by Pulse 93 90 Oximetry 01/23/21 01/23/21 01/23/21 12:20 12:31 12:41 Temperature Pulse Rate 111 H 118 H 118 H Pulse Rate [ Anterior Bilateral Throughout] Pulse Rate [ From Monitor] Respiratory 20 16 17 Rate Respiratory Rate [Anterior Bilateral Throughout] Blood Pressure 159/88 159/88 159/88 O2 Sat by Pulse 92 94 94 Oximetry 01/23/21 01/23/21 01/23/21 12:51 13:01 13:11 Temperature Pulse Rate 129 H 133 H 126 H Pulse Rate [ Anterior Bilateral Throughout] Pulse Rate [ From Monitor] Respiratory 22 24 21 Rate Respiratory Rate [Anterior Bilateral Throughout] Blood Pressure 159/88 157/77 157/77 O2 Sat by Pulse 94 94 94 Oximetry 01/23/21 01/23/21 01/23/21 13:21 13:31 13:41 Temperature Pulse Rate 127 H 122 H 120 H Pulse Rate [ Anterior Bilateral Throughout] Pulse Rate [ From Monitor] Respiratory 15 22 20 Rate Respiratory Rate [Anterior Bilateral Throughout] Blood Pressure 157/77 157/77 157/77 O2 Sat by Pulse 94 94 94 Oximetry 01/23/21 01/23/21 01/23/21 13:51 14:00 14:11 Temperature Pulse Rate 119 H 132 H 130 H Pulse Rate [ Anterior Bilateral Throughout] Pulse Rate [ From Monitor] Respiratory 21 24 23 Rate Respiratory Rate [Anterior Bilateral Throughout] Blood Pressure 157/77 171/77 171/77 O2 Sat by Pulse 93 93 92 Oximetry 01/23/21 01/23/21 01/23/21 14:21 14:31 14:41 Temperature Pulse Rate 123 H 113 H 113 H Pulse Rate [ Anterior Bilateral Throughout] Pulse Rate [ From Monitor] Respiratory 26 H 22 23 Rate Respiratory Rate [Anterior Bilateral Throughout] Blood Pressure 171/77 171/77 171/77 O2 Sat by Pulse 92 92 93 Oximetry 01/23/21 01/23/21 01/23/21 14:51 14:58 15:00 Temperature Pulse Rate 106 H 118 H Pulse Rate [ 118 H Anterior Bilateral Throughout] Pulse Rate [ From Monitor] Respiratory 22 22 Rate Respiratory 20 Rate [Anterior Bilateral Throughout] Blood Pressure 171/77 159/86 O2 Sat by Pulse 93 95 Oximetry 01/23/21 01/23/21 01/23/21 15:11 15:21 15:31 Temperature Pulse Rate 106 H 124 H 120 H Pulse Rate [ Anterior Bilateral Throughout] Pulse Rate [ From Monitor] Respiratory 20 21 21 Rate Respiratory Rate [Anterior Bilateral Throughout] Blood Pressure 159/86 159/86 159/86 O2 Sat by Pulse 96 94 94 Oximetry 01/23/21 01/23/21 01/23/21 15:41 15:51 16:00 Temperature 98.1 F Pulse Rate 120 H 120 H 124 H Pulse Rate [ Anterior Bilateral Throughout] Pulse Rate [ 118 H From Monitor] Respiratory 20 26 H 19 Rate Respiratory Rate [Anterior Bilateral Throughout] Blood Pressure 159/86 159/86 174/84 O2 Sat by Pulse 92 92 Oximetry 01/23/21 01/23/21 01/23/21 16:11 16:21 16:31 Temperature Pulse Rate 114 H 118 H 119 H Pulse Rate [ Anterior Bilateral Throughout] Pulse Rate [ From Monitor] Respiratory 21 19 22 Rate Respiratory Rate [Anterior Bilateral Throughout] Blood Pressure 174/84 174/84 174/84 O2 Sat by Pulse 93 91 90 Oximetry 01/23/21 01/23/21 01/23/21 16:41 16:51 17:00 Temperature Pulse Rate 118 H 126 H 129 H Pulse Rate [ Anterior Bilateral Throughout] Pulse Rate [ From Monitor] Respiratory 18 20 14 Rate Respiratory Rate [Anterior Bilateral Throughout] Blood Pressure 174/84 174/84 173/77 O2 Sat by Pulse 91 89 92 Oximetry Constitutional: alert, other (critically ill on HFNC 100% FiO2) Eyes: non-icteric ENT: oropharynx moist Neck: supple, other (large in circumference) Effort: mildly labored Ascultation: Bilateral: clear Cardiovascular: other (tachy, RR; no mrg) Gastrointestinal: normoactive bowel sounds, soft, non-tender, non-distended Integumentary: normal Extremities: no cyanosis, no edema, pink and warm Neurologic: normal mental status, non-focal exam, pupils equal and round Psychiatric: mood appropriate, affect normal CBC and BMP: 01/22/21 08:25 01/22/21 08:25 ABG, PT/INR, D-dimer: ABG ABG pH 7.461 pH Units (7.350-7.450) H 01/18/21 17:18 ABG pCO2 36.6 mm Hg 01/18/21 17:18 ABG pO2 53.1 mm Hg (80.0-90.0) L 01/18/21 17:18 ABG O2 Saturation 89.4 % (95.0-99.0) L 01/18/21 17:18 PT/INR, D-dimer D-Dimer > 48111 ng/mlDDU (0-234) H 01/21/21 04:45 Abnormal lab findings: Abnormal Labs 01/17/21 01/17/21 01/17/21 09:25 16:41 16:41 WBC RBC 5.23 H MCV 76 L MCH 24 L RDW Lymph % (Auto) 9.4 L Lymph # (Auto) 0.8 L Seg Neutrophils % 85.4 H Seg Neuts % (Manual) Lymphocytes % (Manual) Seg Neutrophils # Man D-Dimer ABG pH ABG pO2 ABG O2 Saturation Oxyhemoglobin Sodium 128 L Chloride 90.8 L Carbon Dioxide BUN Glucose 372 H POC Glucose Calcium Ferritin AST 98 H Lactate Dehydrogenase C-Reactive Protein Total Protein Albumin 3.2 L Coronavirus (PCR) Positive A 01/17/21 01/17/21 01/17/21 17:46 17:46 17:46 WBC RBC MCV MCH RDW Lymph % (Auto) Lymph # (Auto) Seg Neutrophils % Seg Neuts % (Manual) Lymphocytes % (Manual) Seg Neutrophils # Man D-Dimer 1058.54 H ABG pH ABG pO2 ABG O2 Saturation Oxyhemoglobin Sodium Chloride Carbon Dioxide BUN Glucose 369 H POC Glucose Calcium Ferritin 668.4 H AST Lactate Dehydrogenase 519 H C-Reactive Protein 19.20 H Total Protein Albumin Coronavirus (PCR) 01/18/21 01/18/21 01/19/21 09:01 17:18 05:11 WBC 14.2 H RBC MCV 74 L MCH 23 L RDW Lymph % (Auto) Lymph # (Auto) Seg Neutrophils % Seg Neuts % (Manual) 88.0 H Lymphocytes % (Manual) 10.0 L Seg Neutrophils # Man 12.5 H D-Dimer ABG pH 7.461 H ABG pO2 53.1 L ABG O2 Saturation 89.4 L Oxyhemoglobin 88.0 L Sodium 132 L Chloride 93.6 L Carbon Dioxide BUN 18 H Glucose 367 H POC Glucose Calcium 7.8 L Ferritin AST Lactate Dehydrogenase C-Reactive Protein Total Protein Albumin Coronavirus (PCR) 01/19/21 01/19/21 01/19/21 05:11 11:06 14:43 WBC RBC MCV MCH RDW Lymph % (Auto) Lymph # (Auto) Seg Neutrophils % Seg Neuts % (Manual) Lymphocytes % (Manual) Seg Neutrophils # Man D-Dimer ABG pH ABG pO2 ABG O2 Saturation Oxyhemoglobin Sodium Chloride Carbon Dioxide BUN 18 H Glucose 304 H 379 H POC Glucose 382 H Calcium 8.3 L Ferritin AST 92 H 96 H Lactate Dehydrogenase C-Reactive Protein Total Protein Albumin 3.0 L 3.0 L Coronavirus (PCR) 01/19/21 01/19/21 01/20/21 16:18 22:18 07:31 WBC RBC MCV MCH RDW Lymph % (Auto) Lymph # (Auto) Seg Neutrophils % Seg Neuts % (Manual) Lymphocytes % (Manual) Seg Neutrophils # Man D-Dimer ABG pH ABG pO2 ABG O2 Saturation Oxyhemoglobin Sodium Chloride Carbon Dioxide BUN Glucose POC Glucose 374 H 341 H 344 H Calcium Ferritin AST Lactate Dehydrogenase C-Reactive Protein Total Protein Albumin Coronavirus (PCR) 01/20/21 01/20/21 01/20/21 07:33 12:14 13:54 WBC RBC MCV MCH RDW Lymph % (Auto) Lymph # (Auto) Seg Neutrophils % Seg Neuts % (Manual) Lymphocytes % (Manual) Seg Neutrophils # Han D-Dimer ABG pH ABG pO2 ABG O2 Saturation Oxyhemoglobin Sodium Chloride Carbon Dioxide BUN 32 H 31 H Glucose 343 H 396 H POC Glucose 365 H Calcium Ferritin AST 57 H 54 H Lactate Dehydrogenase C-Reactive Protein Total Protein 8.3 H Albumin 2.7 L 3.1 L Coronavirus (PCR) 01/20/21 01/20/21 01/21/21 18:28 21:25 04:45 WBC RBC MCV MCH RDW Lymph % (Auto) Lymph # (Auto) Seg Neutrophils % Seg Neuts % (Manual) Lymphocytes % (Manual) Seg Neutrophils # Man D-Dimer ABG pH ABG pO2 ABG O2 Saturation Oxyhemoglobin Sodium Chloride Carbon Dioxide 31 H BUN 41 H Glucose 377 H POC Glucose 403 H 340 H Calcium Ferritin AST Lactate Dehydrogenase C-Reactive Protein Total Protein 8.3 H Albumin 3.0 L Coronavirus (PCR) 01/21/21 01/21/21 01/21/21 04:45 04:45 04:45 WBC RBC MCV MCH RDW Lymph % (Auto) Lymph # (Auto) Seg Neutrophils % Seg Neuts % (Manual) Lymphocytes % (Manual) Seg Neutrophils # Man D-Dimer > 49212 H ABG pH ABG pO2 ABG O2 Saturation Oxyhemoglobin Sodium Chloride Carbon Dioxide BUN Glucose POC Glucose Calcium Ferritin 1688.0 H AST Lactate Dehydrogenase 649 H C-Reactive Protein 17.00 H Total Protein Albumin Coronavirus (PCR) 01/21/21 01/21/21 01/21/21 09:45 11:29 12:09 WBC RBC MCV MCH RDW Lymph % (Auto) Lymph # (Auto) Seg Neutrophils % Seg Neuts % (Manual) Lymphocytes % (Manual) Seg Neutrophils # Man D-Dimer ABG pH ABG pO2 ABG O2 Saturation Oxyhemoglobin Sodium 151 H Chloride Carbon Dioxide BUN 40 H Glucose 412 H POC Glucose 401 H 372 H Calcium Ferritin AST Lactate Dehydrogenase C-Reactive Protein Total Protein Albumin 3.4 L Coronavirus (PCR) 01/21/21 01/21/21 01/22/21 18:26 21:09 02:00 WBC RBC MCV MCH RDW Lymph % (Auto) Lymph # (Auto) Seg Neutrophils % Seg Neuts % (Manual) Lymphocytes % (Manual) Seg Neutrophils # Man D-Dimer ABG pH ABG pO2 ABG O2 Saturation Oxyhemoglobin Sodium Chloride Carbon Dioxide BUN Glucose POC Glucose 376 H 322 H 231 H Calcium Ferritin AST Lactate Dehydrogenase C-Reactive Protein Total Protein Albumin Coronavirus (PCR) 01/22/21 01/22/21 01/22/21 05:24 08:25 08:25 WBC RBC 5.44 H MCV 75 L MCH 23 L RDW 15.5 H Lymph % (Auto) Lymph # (Auto) Seg Neutrophils % Seg Neuts % (Manual) Lymphocytes % (Manual) Seg Neutrophils # Man D-Dimer ABG pH ABG pO2 ABG O2 Saturation Oxyhemoglobin Sodium 155 H Chloride 112.4 H Carbon Dioxide BUN 33 H Glucose 274 H POC Glucose 275 H Calcium Ferritin AST Lactate Dehydrogenase C-Reactive Protein Total Protein Albumin Coronavirus (PCR) 01/22/21 01/22/21 01/22/21 11:53 16:03 21:41 WBC RBC MCV MCH RDW Lymph % (Auto) Lymph # (Auto) Seg Neutrophils % Seg Neuts % (Manual) Lymphocytes % (Manual) Seg Neutrophils # Man D-Dimer ABG pH ABG pO2 ABG O2 Saturation Oxyhemoglobin Sodium Chloride Carbon Dioxide BUN Glucose POC Glucose 265 H 293 H 279 H Calcium Ferritin AST Lactate Dehydrogenase C-Reactive Protein Total Protein Albumin Coronavirus (PCR) 01/23/21 01/23/21 01/23/21 02:03 05:46 05:59 WBC RBC MCV MCH RDW Lymph % (Auto) Lymph # (Auto) Seg Neutrophils % Seg Neuts % (Manual) Lymphocytes % (Manual) Seg Neutrophils # Man D-Dimer ABG pH ABG pO2 ABG O2 Saturation Oxyhemoglobin Sodium Chloride Carbon Dioxide BUN Glucose POC Glucose 268 H 303 H Calcium Ferritin 1116.0 H AST Lactate Dehydrogenase C-Reactive Protein Total Protein Albumin Coronavirus (PCR) 01/23/21 01/23/21 01/23/21 05:59 07:42 09:11 WBC RBC MCV MCH RDW Lymph % (Auto) Lymph # (Auto) Seg Neutrophils % Seg Neuts % (Manual) Lymphocytes % (Manual) Seg Neutrophils # Man D-Dimer ABG pH ABG pO2 ABG O2 Saturation Oxyhemoglobin Sodium Chloride Carbon Dioxide BUN Glucose POC Glucose 291 H 285 H Calcium Ferritin AST Lactate Dehydrogenase 680 H C-Reactive Protein 5.80 H Total Protein Albumin Coronavirus (PCR) 01/23/21 14:06 WBC RBC MCV MCH RDW Lymph % (Auto) Lymph # (Auto) Seg Neutrophils % Seg Neuts % (Manual) Lymphocytes % (Manual) Seg Neutrophils # Man D-Dimer ABG pH ABG pO2 ABG O2 Saturation Oxyhemoglobin Sodium Chloride Carbon Dioxide BUN Glucose POC Glucose 228 H Calcium Ferritin AST Lactate Dehydrogenase C-Reactive Protein Total Protein Albumin Coronavirus (PCR) Chest x-ray: report reviewed, image reviewed CT scan - chest: report reviewed, image reviewed
[2021-01-23] MEDS: REMDESIVIR 100 MG in SODIUM CHLORIDE 0.9% 250ML 250 ML IV SCH (22:56)
[2021-01-23] MEDS: MIRTAZAPINE 15 MG TAB PO SCH (22:58)
[2021-01-23] MEDS: SODIUM CHLORIDE 0.9% 50 ML IVPB IV SCH (23:16)
[2021-01-24] MEDS: IPRATROPIUM/ALBUTEROL SULFATE 3 ML AMPUL.NEB IH SCH ×4 (02:20→19:03)
[2021-01-24] MEDS: INSULIN LISPRO 100 UNIT/ML SUB-Q SCH ×6 (02:36→23:03)
[2021-01-24 07:17] LABS: Basophils % (Auto) 0.5 % (0.0-1.8); Eosinophils % (Auto) 0.3 % (0.0-4.3); Lymphocytes # (Auto) 0.5 K/mm3 (1.2-5.4); Mean Corpuscular HGB Conc 30 % (30-34); Mean Corpuscular Volume 75 fl (79-97); Monocytes # (Auto) 0.5 K/mm3 (0.0-0.8); Monocytes % (Auto) 6.1 % (0.0-7.3); Platelet Count 298 K/mm3 (140-440); Red Blood Count 5.49 M/mm3 (3.65-5.03); Red Cell Distribution Width 15.2 % (13.2-15.2)
[2021-01-24 07:29] LABS: Hemoglobin 12.5 gm/dl (10.1-14.3)
[2021-01-24 07:39] LABS: Blood Urea Nitrogen 24 mg/dL (7-17); Calcium 8.4 mg/dL (8.4-10.2); Hemolysis Index 30
[2021-01-24 07:42] LABS: BUN/Creatinine Ratio 34
[2021-01-24] MEDS: dexAMETHasone 4 MG/ML VIAL IV SCH ×2 (09:02→21:16)
[2021-01-24] MEDS: HALOPERIDOL 1 MG TAB PO SCH ×2 (09:03→21:19)
[2021-01-24] MEDS: FAMOTIDINE 20 MG TAB PO SCH ×2 (09:03→21:21)
[2021-01-24] MEDS: INSULIN GLARGINE 100 UNITS/ML SUB-Q SCH ×2 (09:03→21:30)
[2021-01-24] MEDS: ENOXAPARIN 100 MG/1 ML INJ SUB-Q SCH ×2 (09:03→21:18)
--- NOTE | 2021-01-24 11:05 | Electrocardiograph Report ---
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
[2021-01-24] MEDS: hydrALAZINE 20 MG/1 ML INJ IV PRN ×2 (11:06→23:12)
--- NOTE | 2021-01-24 11:30 | Progress Note ---
Assessment and Plan Cultures: COVID-19 PCR: Positive 01/17/2021 blood culture: No growth A/P: 55-year-old female past medical history schizophrenia admitted to hospital with COVID-19. #Severe COVID-19 pneumonia: Inflammatory markers elevated. No evidence of pulmonary embolism on CT. s/p abx, completed remdesivir, s/p Actemra on 01/20/2021 #Acute hypoxemic respiratory failure: secondary to COVID-19 infection. On HFNC. #Obesity Recs: -Continue Decadron per pulm, agree with higher dose due to obesity -s/p abx, completed remdesivir, s/p Actemra on 01/20/2021 -Anticoagulation per protocol. d-dimer significantly high, agree with full dose anticoagulation -re-ordered markers for AM Dr. Heath covering the weekend, please call if questions. Aiden Torres MD, FACP [facility] ([facility] O: [phone] F: [phone] Subjective Date of service: 01/24/21 Principal diagnosis: Covid-19 Interval history: No fever. Remains on HFNC. Objective - Exam Narrative Exam: Physical Exam (reviewed in chart to minimize risk of transmission) Constitutional: deferred Head, Ears, Nose: deferred Eyes: deferred Neck: deferred Oral: deferred Cardiovascular: deferred Respiratory: deferred GI: deferred Musculoskeletal: deferred Skin: deferred Hem/Lymphatic: deferred Psych: deferred Neurological: deferred - Constitutional Vitals: Vital Signs Temp Pulse Resp BP Pulse Ox 98.2 F 116 H 31 H 170/79 87 01/24/21 08:00 01/24/21 11:06 01/24/21 11:01 01/24/21 11:06 01/24/21 11:01 Temperature -Last 24 Hours Temperature 98.2 F Temperature 99.2 F Temperature 98.9 F Temperature 99.9 F Temperature 98.1 F Temperature 98 F - Labs CBC & Chem 7: 01/24/21 07:03 01/24/21 07:03 Labs: Abnormal lab results 01/23/21 01/23/21 01/23/21 Range/Units 07:42 09:11 14:06 RBC (3.65-5.03) M/mm3 MCV (79-97) fl MCH (28-32) pg Lymph % (Auto) (13.4-35.0) % Lymph # (Auto) (1.2-5.4) K/mm3 Seg Neutrophils % (40.0-70.0) % Sodium (137-145) mmol/L Chloride (98-107) mmol/L BUN (7-17) mg/dL Glucose (65-100) mg/dL POC Glucose 291 H 285 H 228 H (70-105) mg/dL 01/23/21 01/23/21 01/23/21 Range/Units 17:05 17:59 21:43 RBC (3.65-5.03) M/mm3 MCV (79-97) fl MCH (28-32) pg Lymph % (Auto) (13.4-35.0) % Lymph # (Auto) (1.2-5.4) K/mm3 Seg Neutrophils % (40.0-70.0) % Sodium (137-145) mmol/L Chloride (98-107) mmol/L BUN (7-17) mg/dL Glucose (65-100) mg/dL POC Glucose 300 H 278 H 223 H (70-105) mg/dL 01/24/21 01/24/21 01/24/21 Range/Units 02:14 05:15 07:03 RBC 5.49 H (3.65-5.03) M/mm3 MCV 75 L (79-97) fl MCH 23 L (28-32) pg Lymph % (Auto) 7.0 L (13.4-35.0) % Lymph # (Auto) 0.5 L (1.2-5.4) K/mm3 Seg Neutrophils % 86.1 H (40.0-70.0) % Sodium (137-145) mmol/L Chloride (98-107) mmol/L BUN (7-17) mg/dL Glucose (65-100) mg/dL POC Glucose 427 H 392 H (70-105) mg/dL 01/24/21 01/24/21 Range/Units 07:03 09:10 RBC (3.65-5.03) M/mm3 MCV (79-97) fl MCH (28-32) pg Lymph % (Auto) (13.4-35.0) % Lymph # (Auto) (1.2-5.4) K/mm3 Seg Neutrophils % (40.0-70.0) % Sodium 149 H (137-145) mmol/L Chloride 111.4 H (98-107) mmol/L BUN 24 H (7-17) mg/dL Glucose 339 H (65-100) mg/dL POC Glucose 284 H (70-105) mg/dL
--- NOTE | 2021-01-24 12:14 | Progress Note ---
Subjective - Reason for Consult Consult date: 01/24/21 Reason for consult: MHE Requesting physician: DANE SEGURA - Chief Complaint Chief complaint: Psych Progress Patient seen this Am, appears confused but alert and oriented to being at [facility]. 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 Patient has very slow affect and slowly responds to questions at this time. MENTAL STATUS EXAMINATION General Appearance and Behavior: Age appropriate, good hygiene, wearing appropriate clothes, good eye contact, uncooperative with questioning. Cooperation: Withdrawn Psychomotor Behavior: unremarkable and within normal limits Mood: Neutral Affect and affective range: Flat Thought Process:N/A Thought Content: N/A Speech: Normal volume, Regular rate and rhythm Intellectual Functioning: N/A Suicidal Ideation: N/A l Homicidal Ideation: N/A Impulse Control: Impaired Insight and Judgment: Impaired Memory: N/A Attention: Normal, Orientation: Alert and oriented to facility REVIEW OF SYSTEMS ROS cannot be reliably obtained from the patient due to her confusion and somnolence. MENTAL STATUS EXAMINATION General Appearance and Behavior: Age appropriate, good hygiene, wearing appropriate clothes, good eye contact, uncooperative with questioning. Cooperation: Withdrawn Psychomotor Behavior: slow Mood: Neutral Affect and affective range: Flat Thought Process:N/A Thought Content: N/A Speech: Normal volume, Regular rate and rhythm Intellectual Functioning: N/A Suicidal Ideation: N/A l Homicidal Ideation: N/A Impulse Control: Impaired Insight and Judgment: Impaired Memory: N/A Attention: Normal, Orientation: Alert and oriented to facility Assessment and Plan - Patient Problems (1) Delirium due to another medical condition Current Visit: Yes Status: Acute F05 Treatment Plan Continue current medications. MEDICATIONS: Risks, benefits and alternatives of medications discussed with the patient, questions answered and consent obtained from patient. PSYCHOTHERAPY: Supportive psychotherapy provided MEDICAL: Per primary team DELIRIUM PRECAUTIONS: Please re-orient patient frequently, keep lights on during the day, and minimize benzodiazepines and opiates as these medications could worsen patient's confusion. 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 Case discussed with Dr. Wallace who agrees with current disposition FOLLOW-UP: Will sign off Thank you for the consult. Please contact with any questions and/or concerns. Mental Status Exam - Vital signs Last Vital Signs Temp 98.2 F 01/24/21 08:00 Pulse 120 H 01/24/21 12:01 Resp 26 H 01/24/21 12:01 BP 155/73 01/24/21 12:01 Pulse Ox 92 01/24/21 12:01 Assessment and Plan - Patient Problems (1) Delirium due to another medical condition Current Visit: Yes Status: Acute
--- NOTE | 2021-01-24 14:12 | Progress Note ---
Assessment and Plan Assessment and Plan Imp: 1. Covid-19 w/ viral pneumonia 2. ARDS 3. Acute resp. failure, hypoxia 4. Hypernatremia 5. Obesity 6. Hypertension Rec: 1. Decadaron IV 2. Remdesivir x 5 days 3. Agree with therapeutic Lovenox 4. Unable to prone due to lack of cooperation and need for restraints 5. Monitor inflammatory markers 6. Encourage free water intake; repeat labs in AM 7. Wean HFNC to keep sats 88% or > 8. Add amlodipine orally for blood pressure Subjective Date of service: 01/24/21 Principal diagnosis: Covid-19 Interval history: Patient much more awake and alert. Blood pressure is running high. Currently o n hydralazine on as needed basis. Remains on high flow nasal cannula with 40 L nasal correction O2 flow 100% FiO2 Objective Vital Signs - 12hr 01/24/21 01/24/21 01/24/21 02:24 03:01 03:39 Temperature Pulse Rate 123 H 117 H 110 H Pulse Rate [ 123 H Anterior Bilateral Throughout] Pulse Rate [ From Monitor] Respiratory 23 24 Rate Respiratory 23 Rate [Anterior Bilateral Throughout] Blood Pressure 144/68 O2 Sat by Pulse 92 90 Oximetry 01/24/21 01/24/21 01/24/21 03:48 04:00 04:06 Temperature 99.2 F Pulse Rate 109 H 112 H Pulse Rate [ Anterior Bilateral Throughout] Pulse Rate [ From Monitor] Respiratory 18 20 Rate Respiratory Rate [Anterior Bilateral Throughout] Blood Pressure 149/76 149/63 O2 Sat by Pulse 89 94 Oximetry 01/24/21 01/24/21 01/24/21 05:00 06:01 07:00 Temperature Pulse Rate 113 H 102 H 108 H Pulse Rate [ Anterior Bilateral Throughout] Pulse Rate [ From Monitor] Respiratory 21 17 20 Rate Respiratory Rate [Anterior Bilateral Throughout] Blood Pressure 165/79 147/76 153/79 O2 Sat by Pulse 91 94 89 Oximetry 01/24/21 01/24/21 01/24/21 07:38 07:59 08:00 Temperature 98.2 F Pulse Rate 105 H 115 H Pulse Rate [ 113 H Anterior Bilateral Throughout] Pulse Rate [ 110 H From Monitor] Respiratory 22 23 Rate Respiratory 20 Rate [Anterior Bilateral Throughout] Blood Pressure 153/79 O2 Sat by Pulse 91 93 95 Oximetry 01/24/21 01/24/21 01/24/21 08:01 09:00 10:01 Temperature Pulse Rate 114 H 112 H 123 H Pulse Rate [ Anterior Bilateral Throughout] Pulse Rate [ From Monitor] Respiratory 21 14 23 Rate Respiratory Rate [Anterior Bilateral Throughout] Blood Pressure 175/82 168/82 153/59 O2 Sat by Pulse 92 85 93 Oximetry 01/24/21 01/24/21 01/24/21 11:01 11:06 12:00 Temperature Pulse Rate 126 H 116 H 118 H Pulse Rate [ Anterior Bilateral Throughout] Pulse Rate [ 123 H From Monitor] Respiratory 31 H 21 Rate Respiratory Rate [Anterior Bilateral Throughout] Blood Pressure 170/79 170/79 O2 Sat by Pulse 87 95 Oximetry 01/24/21 01/24/21 01/24/21 12:01 13:01 14:00 Temperature Pulse Rate 120 H 130 H 110 H Pulse Rate [ Anterior Bilateral Throughout] Pulse Rate [ From Monitor] Respiratory 26 H 27 H 26 H Rate Respiratory Rate [Anterior Bilateral Throughout] Blood Pressure 155/73 141/75 136/70 O2 Sat by Pulse 92 90 89 Oximetry Constitutional: alert, other (critically ill on HFNC 100% FiO2) Eyes: non-icteric ENT: oropharynx moist Neck: supple, other (large in circumference) Effort: mildly labored Ascultation: Bilateral: clear Cardiovascular: other (tachy, RR; no mrg) Gastrointestinal: normoactive bowel sounds, soft, non-tender, non-distended Integumentary: normal Extremities: no cyanosis, no edema, pink and warm Neurologic: normal mental status, non-focal exam, pupils equal and round Psychiatric: mood appropriate, affect normal CBC and BMP: 01/24/21 07:03 01/24/21 07:03 ABG, PT/INR, D-dimer: ABG ABG pH 7.461 pH Units (7.350-7.450) H 01/18/21 17:18 ABG pCO2 36.6 mm Hg 01/18/21 17:18 ABG pO2 53.1 mm Hg (80.0-90.0) L 01/18/21 17:18 ABG O2 Saturation 89.4 % (95.0-99.0) L 01/18/21 17:18 PT/INR, D-dimer D-Dimer > 97819 ng/mlDDU (0-234) H 01/21/21 04:45 Abnormal lab findings: Abnormal Labs 01/17/21 01/17/21 01/17/21 09:25 16:41 16:41 WBC RBC 5.23 H MCV 76 L MCH 24 L RDW Lymph % (Auto) 9.4 L Lymph # (Auto) 0.8 L Seg Neutrophils % 85.4 H Seg Neuts % (Manual) Lymphocytes % (Manual) Seg Neutrophils # Man D-Dimer ABG pH ABG pO2 ABG O2 Saturation Oxyhemoglobin Sodium 128 L Chloride 90.8 L Carbon Dioxide BUN Glucose 372 H POC Glucose Calcium Ferritin AST 98 H Lactate Dehydrogenase C-Reactive Protein Total Protein Albumin 3.2 L Coronavirus (PCR) Positive A 01/17/21 01/17/21 01/17/21 17:46 17:46 17:46 WBC RBC MCV MCH RDW Lymph % (Auto) Lymph # (Auto) Seg Neutrophils % Seg Neuts % (Manual) Lymphocytes % (Manual) Seg Neutrophils # Man D-Dimer 1058.54 H ABG pH ABG pO2 ABG O2 Saturation Oxyhemoglobin Sodium Chloride Carbon Dioxide BUN Glucose 369 H POC Glucose Calcium Ferritin 668.4 H AST Lactate Dehydrogenase 519 H C-Reactive Protein 19.20 H Total Protein Albumin Coronavirus (PCR) 01/18/21 01/18/21 01/19/21 09:01 17:18 05:11 WBC 14.2 H RBC MCV 74 L MCH 23 L RDW Lymph % (Auto) Lymph # (Auto) Seg Neutrophils % Seg Neuts % (Manual) 88.0 H Lymphocytes % (Manual) 10.0 L Seg Neutrophils # Man 12.5 H D-Dimer ABG pH 7.461 H ABG pO2 53.1 L ABG O2 Saturation 89.4 L Oxyhemoglobin 88.0 L Sodium 132 L Chloride 93.6 L Carbon Dioxide BUN 18 H Glucose 367 H POC Glucose Calcium 7.8 L Ferritin AST Lactate Dehydrogenase C-Reactive Protein Total Protein Albumin Coronavirus (PCR) 01/19/21 01/19/21 01/19/21 05:11 11:06 14:43 WBC RBC MCV MCH RDW Lymph % (Auto) Lymph # (Auto) Seg Neutrophils % Seg Neuts % (Manual) Lymphocytes % (Manual) Seg Neutrophils # Man D-Dimer ABG pH ABG pO2 ABG O2 Saturation Oxyhemoglobin Sodium Chloride Carbon Dioxide BUN 18 H Glucose 304 H 379 H POC Glucose 382 H Calcium 8.3 L Ferritin AST 92 H 96 H Lactate Dehydrogenase C-Reactive Protein Total Protein Albumin 3.0 L 3.0 L Coronavirus (PCR) 01/19/21 01/19/21 01/20/21 16:18 22:18 07:31 WBC RBC MCV MCH RDW Lymph % (Auto) Lymph # (Auto) Seg Neutrophils % Seg Neuts % (Manual) Lymphocytes % (Manual) Seg Neutrophils # Man D-Dimer ABG pH ABG pO2 ABG O2 Saturation Oxyhemoglobin Sodium Chloride Carbon Dioxide BUN Glucose POC Glucose 374 H 341 H 344 H Calcium Ferritin AST Lactate Dehydrogenase C-Reactive Protein Total Protein Albumin Coronavirus (PCR) 01/20/21 01/20/21 01/20/21 07:33 12:14 13:54 WBC RBC MCV MCH RDW Lymph % (Auto) Lymph # (Auto) Seg Neutrophils % Seg Neuts % (Manual) Lymphocytes % (Manual) Seg Neutrophils # Man D-Dimer ABG pH ABG pO2 ABG O2 Saturation Oxyhemoglobin Sodium Chloride Carbon Dioxide BUN 32 H 31 H Glucose 343 H 396 H POC Glucose 365 H Calcium Ferritin AST 57 H 54 H Lactate Dehydrogenase C-Reactive Protein Total Protein 8.3 H Albumin 2.7 L 3.1 L Coronavirus (PCR) 01/20/21 01/20/21 01/21/21 18:28 21:25 04:45 WBC RBC MCV MCH RDW Lymph % (Auto) Lymph # (Auto) Seg Neutrophils % Seg Neuts % (Manual) Lymphocytes % (Manual) Seg Neutrophils # Man D-Dimer ABG pH ABG pO2 ABG O2 Saturation Oxyhemoglobin Sodium Chloride Carbon Dioxide 31 H BUN 41 H Glucose 377 H POC Glucose 403 H 340 H Calcium Ferritin AST Lactate Dehydrogenase C-Reactive Protein Total Protein 8.3 H Albumin 3.0 L Coronavirus (PCR) 01/21/21 01/21/21 01/21/21 04:45 04:45 04:45 WBC RBC MCV MCH RDW Lymph % (Auto) Lymph # (Auto) Seg Neutrophils % Seg Neuts % (Manual) Lymphocytes % (Manual) Seg Neutrophils # Man D-Dimer > 10195 H ABG pH ABG pO2 ABG O2 Saturation Oxyhemoglobin Sodium Chloride Carbon Dioxide BUN Glucose POC Glucose Calcium Ferritin 1688.0 H AST Lactate Dehydrogenase 649 H C-Reactive Protein 17.00 H Total Protein Albumin Coronavirus (PCR) 01/21/21 01/21/21 01/21/21 09:45 11:29 12:09 WBC RBC MCV MCH RDW Lymph % (Auto) Lymph # (Auto) Seg Neutrophils % Seg Neuts % (Manual) Lymphocytes % (Manual) Seg Neutrophils # Man D-Dimer ABG pH ABG pO2 ABG O2 Saturation Oxyhemoglobin Sodium 151 H Chloride Carbon Dioxide BUN 40 H Glucose 412 H POC Glucose 401 H 372 H Calcium Ferritin AST Lactate Dehydrogenase C-Reactive Protein Total Protein Albumin 3.4 L Coronavirus (PCR) 01/21/21 01/21/21 01/22/21 18:26 21:09 02:00 WBC RBC MCV MCH RDW Lymph % (Auto) Lymph # (Auto) Seg Neutrophils % Seg Neuts % (Manual) Lymphocytes % (Manual) Seg Neutrophils # Man D-Dimer ABG pH ABG pO2 ABG O2 Saturation Oxyhemoglobin Sodium Chloride Carbon Dioxide BUN Glucose POC Glucose 376 H 322 H 231 H Calcium Ferritin AST Lactate Dehydrogenase C-Reactive Protein Total Protein Albumin Coronavirus (PCR) 01/22/21 01/22/21 01/22/21 05:24 08:25 08:25 WBC RBC 5.44 H MCV 75 L MCH 23 L RDW 15.5 H Lymph % (Auto) Lymph # (Auto) Seg Neutrophils % Seg Neuts % (Manual) Lymphocytes % (Manual) Seg Neutrophils # Man D-Dimer ABG pH ABG pO2 ABG O2 Saturation Oxyhemoglobin Sodium 155 H Chloride 112.4 H Carbon Dioxide BUN 33 H Glucose 274 H POC Glucose 275 H Calcium Ferritin AST Lactate Dehydrogenase C-Reactive Protein Total Protein Albumin Coronavirus (PCR) 01/22/21 01/22/21 01/22/21 11:53 16:03 21:41 WBC RBC MCV MCH RDW Lymph % (Auto) Lymph # (Auto) Seg Neutrophils % Seg Neuts % (Manual) Lymphocytes % (Manual) Seg Neutrophils # Man D-Dimer ABG pH ABG pO2 ABG O2 Saturation Oxyhemoglobin Sodium Chloride Carbon Dioxide BUN Glucose POC Glucose 265 H 293 H 279 H Calcium Ferritin AST Lactate Dehydrogenase C-Reactive Protein Total Protein Albumin Coronavirus (PCR) 01/23/21 01/23/21 01/23/21 02:03 05:46 05:59 WBC RBC MCV MCH RDW Lymph % (Auto) Lymph # (Auto) Seg Neutrophils % Seg Neuts % (Manual) Lymphocytes % (Manual) Seg Neutrophils # Man D-Dimer ABG pH ABG pO2 ABG O2 Saturation Oxyhemoglobin Sodium Chloride Carbon Dioxide BUN Glucose POC Glucose 268 H 303 H Calcium Ferritin 1116.0 H AST Lactate Dehydrogenase C-Reactive Protein Total Protein Albumin Coronavirus (PCR) 01/23/21 01/23/21 01/23/21 05:59 07:42 09:11 WBC RBC MCV MCH RDW Lymph % (Auto) Lymph # (Auto) Seg Neutrophils % Seg Neuts % (Manual) Lymphocytes % (Manual) Seg Neutrophils # Han D-Dimer ABG pH ABG pO2 ABG O2 Saturation Oxyhemoglobin Sodium Chloride Carbon Dioxide BUN Glucose POC Glucose 291 H 285 H Calcium Ferritin AST Lactate Dehydrogenase 680 H C-Reactive Protein 5.80 H Total Protein Albumin Coronavirus (PCR) 01/23/21 01/23/21 01/23/21 14:06 17:05 17:59 WBC RBC MCV MCH RDW Lymph % (Auto) Lymph # (Auto) Seg Neutrophils % Seg Neuts % (Manual) Lymphocytes % (Manual) Seg Neutrophils # Han D-Dimer ABG pH ABG pO2 ABG O2 Saturation Oxyhemoglobin Sodium Chloride Carbon Dioxide BUN Glucose POC Glucose 228 H 300 H 278 H Calcium Ferritin AST Lactate Dehydrogenase C-Reactive Protein Total Protein Albumin Coronavirus (PCR) 01/23/21 01/24/21 01/24/21 21:43 02:14 05:15 WBC RBC MCV MCH RDW Lymph % (Auto) Lymph # (Auto) Seg Neutrophils % Seg Neuts % (Manual) Lymphocytes % (Manual) Seg Neutrophils # Han D-Dimer ABG pH ABG pO2 ABG O2 Saturation Oxyhemoglobin Sodium Chloride Carbon Dioxide BUN Glucose POC Glucose 223 H 427 H 392 H Calcium Ferritin AST Lactate Dehydrogenase C-Reactive Protein Total Protein Albumin Coronavirus (PCR) 01/24/21 01/24/21 01/24/21 07:03 07:03 09:10 WBC RBC 5.49 H MCV 75 L MCH 23 L RDW Lymph % (Auto) 7.0 L Lymph # (Auto) 0.5 L Seg Neutrophils % 86.1 H Seg Neuts % (Manual) Lymphocytes % (Manual) Seg Neutrophils # Man D-Dimer ABG pH ABG pO2 ABG O2 Saturation Oxyhemoglobin Sodium 149 H Chloride 111.4 H Carbon Dioxide BUN 24 H Glucose 339 H POC Glucose 284 H Calcium Ferritin AST Lactate Dehydrogenase C-Reactive Protein Total Protein Albumin Coronavirus (PCR)
--- NOTE | 2021-01-24 14:22 | Progress Note ---
Assessment and Plan Assessment and plan: This is a 55-year-old female admitted with acute hypoxic respiratory failure secondary to COVID-19 pneumonia Severe COVID-19 pneumonia Acute hypoxic respiratory failure Obesity Hyperglycemia Schizophrenia Hypernatremia Hypercholermia -CCM, infectious disease, psychiatry consulted, appreciate recommendations -COVID-19 PCR positive -Droplet/contact isolation -Remdesivir, azithromycin, ceftriaxone, dexamethasone (twice daily dosing) -s/p Actemra -Wean supplemental oxygen as tolerated, pulmonary hygiene -Prone as tolerated -Trend COVID-19 inflammatory markers for risk stratification, CBC, CMP -SSI, Lantus -01/18 bilateral lower extremity Doppler ultrasound negative for DVT -01/17 CTA shows no evidence of pulmonary embolism, extensive bilateral pneumonia, hepatomegaly with hepatic steatosis -Norvasc for BP control DVT/GI prophylaxis: Lovenox subcu, SCDs to bilateral lower extremities while in bed Disposition: IMCU The high probability of a clinically significant, sudden or life threatening de terioration of the [respiratory] system(s) required my full and direct attention, intervention and personal management. The aggregate critical care time was [35] minutes. This time is in addition to time spent performing reported procedures but includes the following: [x] Data Review and interpretation [x] Patient assessment and monitoring of vital signs [x] Documentation [x] Medication orders and management History Interval history: This is a 55-year-old female with schizophrenia who presented to [facility] on 01/18 for shortness of breath, cough, subjective fever and not feeling well for the last couple days with known COVID-19 exposure. While in the emergency room patient was switched from non rebreather mask to high flow nasal cannula and his CTA chest showed no acute pulmonary embolism. Patient was admitted to the hospital service as a COVID-19 PUI with consults to [facility], infectious disease, psych. 01/18/2021 -Acute hypoxic respiratory failure requiring high flow oxygen 40 L. Nebulizer treatment -Patient is admitted for suspected Covid pneumonia. Patient is on dexamethasone, COVID-19 test is pending. Patient is on empiric antibiotics. -ID consulted, will consult pulmonary. -Patient has hyponatremia yesterday and I will repeat and if it is low I will manage accordingly -Patient has elevated D-dimer and CTA chest and bilateral Doppler ultrasound of the lower extremities pending 01/19/2021 -Acute hypoxic respiratory failure currently on BiPAP, nebulizer treatment. I will put in orders to transfer to [facility] yesterday but there was no bed. -Patient is positive for Covid and she is on Decadron and remdesivir. Actemra was ordered on 01/19/2021 -ID evaluated the patient and recommend to continue Decadron and remdesivir, also to continue ceftriaxone and azithromycin for 5 days because of the elevated procalcitonin level. Pulmonary was consulted and recommend to continue current management and add Lasix -CTA chest was done and significant for bilateral pulmonary opacities, negative for PE, Doppler ultrasound of the lower extremities was negative for DVT. -Prognosis is guarded. -Patient is currently on BiPAP and she was agitated and trying to take off the BiPAP, I put the patient on restraints. Discussed with melt house drag operator to transfer the patient to [facility] and if there is no bed she need to be transferred to CCU. 01/20: Patient received 5 mg of Haldol for severe agitation and refusal to keep high flow nasal cannula in place. CCM ordered Lasix again. Psych was consulted today. Patient was on BiPAP therapy all night and RT attempted to give her a break patient is on high flow nasal cannula however she did not keep this in place and was paced back on BiPAP after receiving Haldol. She was started on Lantus today. 01/21: Patient is on BiPAP and on time examination was on 40L 100% FiO2. Patient was started on Lantus. Psych consult completed and started on Haldol p.o. twice daily and Mirtazepin PO daily. No acute events reported overnight. Patient's D-dimer is greater than 10,000 started on prophylactic Lovenox as recent CTA chest and bilateral lower extremity Doppler ultrasound were negative. 01/22: Patient has been taken off BiPAP therapy and placed on high flow nasal cannula. Patient has been downgraded to IM. Patient's hyponatremia and hypochloremia have worsened. 01/23: Patient was on BiPAP overnight with FiO2 85% and IPAP 20/EPAP 10. Patient currently with high flow nasal cannula 40 L O2 with an FiO2 of 100%. Continue remdesivir and dexamethasone. Patient is s/p Actemra on 01/20. Continue empiric antibiotics per ID recommendations. Continue anticoagulation per protocol. 01/24: Patient is tachycardic and hypertensive and [facility] has opted to add amlodipine. Patient remains on 40 L 100% high flow nasal cannula. Continue remdesivir and dexamethasone. Patient is s/p Actemra on 01/20. Continue empiric antibiotics per ID recommendations. Continue anticoagulation per protocol. Hospitalist Physical - Constitutional Vitals: Temp Pulse Resp BP Pulse Ox 98.2 F 110 H 26 H 136/70 89 01/24/21 08:00 01/24/21 14:00 01/24/21 14:00 01/24/21 14:00 01/24/21 14:00 General appearance: Present: no acute distress, well-nourished - EENT Eyes: Present: PERRL ENT: hearing intact, clear oral mucosa - Neck Neck: Present: normal ROM - Respiratory Respiratory effort: normal Respiratory: bilateral: diminished - Cardiovascular Rhythm: regular Heart Sounds: Present: S1 & S2. Absent: systolic murmur, diastolic murmur - Extremities Extremities: no ischemia, pulses intact, pulses symmetrical, No edema, normal temperature, normal color, Full ROM Peripheral Pulses: within normal limits - Abdominal General gastrointestinal: soft, non-tender, non-distended, normal bowel sounds - Integumentary Integumentary: Present: dry - Psychiatric Psychiatric: cooperative - Neurologic Neurologic: CNII-XII intact, no focal deficits, moves all extremities - Allied Health Allied health notes reviewed: nursing, social work HEART Score - HEART Score Troponin: Troponin T < 0.010 ng/mL (0.00-0.029) 01/17/21 16:41 Results - Labs CBC & Chem 7: 01/24/21 07:03 01/24/21 07:03 Labs: Laboratory Last Values WBC 7.5 K/mm3 (4.5-11.0) 01/24/21 07:03 RBC 5.49 M/mm3 (3.65-5.03) H 01/24/21 07:03 Hgb 12.5 gm/dl (10.1-14.3) 01/24/21 07:03 Hct 41.0 % (30.3-42.9) 01/24/21 07:03 MCV 75 fl (79-97) L 01/24/21 07:03 MCH 23 pg (28-32) L 01/24/21 07:03 MCHC 30 % (30-34) 01/24/21 07:03 RDW 15.2 % (13.2-15.2) 01/24/21 07:03 Plt Count 298 K/mm3 (140-440) 01/24/21 07:03 Lymph % (Auto) 7.0 % (13.4-35.0) L 01/24/21 07:03 Mckinley % (Auto) 6.1 % (0.0-7.3) 01/24/21 07:03 Eos % (Auto) 0.3 % (0.0-4.3) 01/24/21 07:03 Baso % (Auto) 0.5 % (0.0-1.8) 01/24/21 07:03 Lymph # (Auto) 0.5 K/mm3 (1.2-5.4) L 01/24/21 07:03 Mckinley # (Auto) 0.5 K/mm3 (0.0-0.8) 01/24/21 07:03 Eos # (Auto) 0.0 K/mm3 (0.0-0.4) 01/24/21 07:03 Baso # (Auto) 0.0 K/mm3 (0.0-0.1) 01/24/21 07:03 Add Manual Diff Complete 01/19/21 05:11 Total Counted 100 01/19/21 05:11 Seg Neutrophils % 86.1 % (40.0-70.0) H 01/24/21 07:03 Seg Neuts % (Manual) 88.0 % (40.0-70.0) H 01/19/21 05:11 Lymphocytes % (Manual) 10.0 % (13.4-35.0) L 01/19/21 05:11 Monocytes % (Manual) 2.0 % (0.0-7.3) 01/19/21 05:11 Nucleated RBC % Not Reportable 01/19/21 05:11 Seg Neutrophils # 6.5 K/mm3 (1.8-7.7) 01/24/21 07:03 Seg Neutrophils # Man 12.5 K/mm3 (1.8-7.7) H 01/19/21 05:11 Band Neutrophils # 0.0 K/mm3 01/19/21 05:11 Lymphocytes # (Manual) 1.4 K/mm3 (1.2-5.4) 01/19/21 05:11 Abs React Lymphs (Man) 0.0 K/mm3 01/19/21 05:11 Monocytes # (Manual) 0.3 K/mm3 (0.0-0.8) 01/19/21 05:11 Eosinophils # (Manual) 0.0 K/mm3 (0.0-0.4) 01/19/21 05:11 Basophils # (Manual) 0.0 K/mm3 (0.0-0.1) 01/19/21 05:11 Metamyelocytes # 0.0 K/mm3 01/19/21 05:11 Myelocytes # 0.0 K/mm3 01/19/21 05:11 Promyelocytes # 0.0 K/mm3 01/19/21 05:11 Blast Cells # 0.0 K/mm3 01/19/21 05:11 WBC Morphology Not Reportable 01/19/21 05:11 Hypersegmented Neuts Not Reportable 01/19/21 05:11 Hyposegmented Neuts Not Reportable 01/19/21 05:11 Hypogranular Neuts Not Reportable 01/19/21 05:11 Smudge Cells Not Reportable 01/19/21 05:11 Toxic Granulation Not Reportable 01/19/21 05:11 Toxic Vacuolation Not Reportable 01/19/21 05:11 Dohle Bodies Not Reportable 01/19/21 05:11 Pelger-Huet Anomaly Not Reportable 01/19/21 05:11 Inder Rods Not Reportable 01/19/21 05:11 Platelet Estimate Consistent w auto 01/19/21 05:11 Clumped Platelets Not Reportable 01/19/21 05:11 Plt Clumps, EDTA Not Reportable 01/19/21 05:11 Large Platelets Not Reportable 01/19/21 05:11 Giant Platelets Not Reportable 01/19/21 05:11 Platelet Satelliting Not Reportable 01/19/21 05:11 Plt Morphology Comment Not Reportable 01/19/21 05:11 RBC Morphology Not Reportable 01/19/21 05:11 Dimorphic RBCs Not Reportable 01/19/21 05:11 Polychromasia Not Reportable 01/19/21 05:11 Hypochromasia 1+ 01/19/21 05:11 Poikilocytosis Not Reportable 01/19/21 05:11 Anisocytosis Not Reportable 01/19/21 05:11 Microcytosis Not Reportable 01/19/21 05:11 Macrocytosis Not Reportable 01/19/21 05:11 Spherocytes Not Reportable 01/19/21 05:11 Pappenheimer Bodies Not Reportable 01/19/21 05:11 Sickle Cells Not Reportable 01/19/21 05:11 Target Cells Not Reportable 01/19/21 05:11 Tear Drop Cells Not Reportable 01/19/21 05:11 Ovalocytes Not Reportable 01/19/21 05:11 Helmet Cells Not Reportable 01/19/21 05:11 Navarro-[place] Bodies Not Reportable 01/19/21 05:11 [place] Rings Not Reportable 01/19/21 05:11 Giorgio Cells Not Reportable 01/19/21 05:11 Bite Cells Not Reportable 01/19/21 05:11 Crenated Cell Not Reportable 01/19/21 05:11 Elliptocytes Not Reportable 01/19/21 05:11 Acanthocytes (Spur) Not Reportable 01/19/21 05:11 Rouleaux Not Reportable 01/19/21 05:11 Hemoglobin C Crystals Not Reportable 01/19/21 05:11 Schistocytes Not Reportable 01/19/21 05:11 Malaria parasites Not Reportable 01/19/21 05:11 Chai Bodies Not Reportable 01/19/21 05:11 Hem Pathologist Commnt No 01/19/21 05:11 D-Dimer > 86354 ng/mlDDU (0-234) H 01/21/21 04:45 ABG pH 7.461 pH Units (7.350-7.450) H 01/18/21 17:18 ABG pCO2 36.6 mm Hg 01/18/21 17:18 ABG pO2 53.1 mm Hg (80.0-90.0) L 01/18/21 17:18 ABG HCO3 25.5 mmol/L (20.0-26.0) 01/18/21 17:18 ABG O2 Saturation 89.4 % (95.0-99.0) L 01/18/21 17:18 ABG O2 Content 15.1 (0.0-44) 01/18/21 17:18 ABG Base Excess 1.9 mmol/L (-2.0-3.0) 01/18/21 17:18 ABG Hemoglobin 12.2 gm/dl (12.0-16.0) 01/18/21 17:18 ABG Carboxyhemoglobin 1.2 % (0.0-5.0) 01/18/21 17:18 ABG Methemoglobin 0.5 % (0.0-1.5) 01/18/21 17:18 Oxyhemoglobin 88.0 % (95.0-99.0) L 01/18/21 17:18 FiO2 100 % 01/18/21 17:18 Sodium 149 mmol/L (137-145) H 01/24/21 07:03 Potassium 4.0 mmol/L (3.6-5.0) 01/24/21 07:03 Chloride 111.4 mmol/L (98-107) H 01/24/21 07:03 Carbon Dioxide 28 mmol/L (22-30) 01/24/21 07:03 Anion Gap 14 mmol/L 01/24/21 07:03 BUN 24 mg/dL (7-17) H 01/24/21 07:03 Creatinine 0.7 mg/dL (0.6-1.2) 01/24/21 07:03 Estimated GFR > 60 ml/min 01/24/21 07:03 BUN/Creatinine Ratio 34 % 01/24/21 07:03 Glucose 339 mg/dL (65-100) H 01/24/21 07:03 POC Glucose 284 mg/dL (70-105) H 01/24/21 09:10 Lactic Acid 1.70 mmol/L (0.7-2.0) 01/17/21 16:41 Calcium 8.4 mg/dL (8.4-10.2) 01/24/21 07:03 Ferritin 1116.0 ng/mL (10.0-200.0) H 01/23/21 05:59 Total Bilirubin 0.30 mg/dL (0.1-1.2) 01/21/21 11:29 AST 34 units/L (5-40) 01/21/21 11:29 ALT 38 units/L (7-56) 01/21/21 11:29 Alkaline Phosphatase 117 units/L (35-129) 01/21/21 11:29 Lactate Dehydrogenase 680 units/L (91-180) H 01/23/21 05:59 Troponin T < 0.010 ng/mL (0.00-0.029) 01/17/21 16:41 C-Reactive Protein 5.80 mg/dL (0.00-1.30) H 01/23/21 05:59 NT-Pro-B Natriuret Pep 40.88 pg/mL (0-900) 01/17/21 16:41 Total Protein 7.3 g/dL (6.3-8.2) 01/21/21 11:29 Albumin 3.4 g/dL (3.9-5) L 01/21/21 11:29 Albumin/Globulin Ratio 0.9 % 01/21/21 11:29 Procalcitonin 0.39 ng/mL (<0.15) 01/17/21 17:46 Coronavirus (PCR) Positive (Negative) A 01/17/21 09:25 Estrada/IV: Voiding Method External Female Catheter Active Medications - Current Medications Current Medications: Generic Name Dose Route Start Last Admin Trade Name Freq PRN Reason Stop Dose Admin Acetaminophen 650 mg 01/18/21 00:36 01/22/21 23:46 Acetaminophen 325 Mg Tab PO 650 mg Q4H PRN Administration Pain MILD(1-3)/Fever >100.5/PAN Albuterol/Ipratropium 1 ampul 01/18/21 02:00 01/24/21 07:38 Ipratropium/Albuterol Sulfate 3 Ml Ampul.Neb IH 1 ampul Q6HRT PJ Administration Amlodipine Besylate 5 mg 01/25/21 10:00 Amlodipine 5 Mg Tab PO QDAY PJ Dexamethasone 6 mg 01/20/21 10:00 01/24/21 09:02 Dexamethasone 4 Mg/Ml Vial IV 01/28/21 22:01 6 mg BID PJ Administration Enoxaparin Sodium 100 mg 01/21/21 10:00 01/24/21 09:03 Enoxaparin 100 Mg/1 Ml Inj 1 mg/kg (100 mg) 100 mg SUB-Q Administration Q12HR [facility] Protocol Famotidine 20 mg 01/18/21 10:00 01/24/21 09:03 Famotidine 20 Mg Tab PO 20 mg BID JP Administration Haloperidol 1 mg 01/24/21 12:12 Haloperidol 1 Mg Tab PO BID PJ Hydralazine HCl 10 mg 01/18/21 00:38 01/24/21 11:06 Hydralazine 20 Mg/1 Ml Inj IV 10 mg Q6H PRN Administration htn Hydromorphone HCl 0.5 mg 01/20/21 11:00 Hydromorphone 1 Mg/1 Ml Inj IV Q6H PRN Pain , Severe (7-10) Insulin Glargine 20 units 01/20/21 22:00 01/23/21 22:58 Insulin Glargine 100 Units/Ml SUB-Q 20 units QHS PJ Administration Insulin Glargine 20 units 01/24/21 10:00 01/24/21 09:03 Insulin Glargine 100 Units/Ml SUB-Q 20 units DAILY PJ Administration Insulin Human Lispro 0 unit 01/21/21 14:00 01/24/21 13:50 Insulin Lispro 100 Unit/Ml SUB-Q 8 unit Q4HR PJ Administration Protocol Mirtazapine 7.5 mg 01/21/21 22:00 01/23/21 22:58 Mirtazapine 15 Mg Tab PO 7.5 mg QHS PJ Administration Ondansetron HCl 4 mg 01/18/21 00:36 Ondansetron 4 Mg/2 Ml Inj IV Q8H PRN Nausea And Vomiting Sodium Chloride 10 ml 01/18/21 10:00 01/24/21 09:04 Sodium Chloride 0.9% 10 Ml Flush Syringe IV Not Given BID PJ Sodium Chloride 10 ml 01/18/21 00:36 Sodium Chloride 0.9% 10 Ml Flush Syringe IV PRN PRN LINE FLUSH Ziprasidone 10 mg 01/20/21 10:57 01/21/21 21:29 Ziprasidone Mesylate 20 Mg Vial IM 10 mg Q6H PRN Administration AGITATION Nutrition/Malnutrition Assess - Dietary Evaluation Nutrition/Malnutrition Findings: Nutrition Notes Start: 01/24/21 10: 40 Freq: Status: Active Protocol: Document 01/24/21 10:40 (Rec: 01/24/21 10:52 [id number]) Nutrition Notes Need for Assessment generated from: LOS Initial or Follow up Assessment Current Diagnosis Respiratory Failure Other Pertinent Diagnosis pneu, COVID-19 Current Diet Cardiac Labs/Tests Na 149 BUN 24 BG 339 Pertinent Medications Insulin Decadron Height 5 ft 4 in Weight 89 kg Rifle Body Weight (kg) 54.54 BMI 33.7 Weight Status Obese Subjective/Other Information Screen for LOS. Pt did not answer phone. Per RN, pt has poor appetite but drinks well. Burn Absent Trauma Absent Current % PO Poor (25-49%) Minimum of two criteria No Energy Intake (non-severe) <75% Estimated Energy Requirement >7 days #1 Nutrition Diagnosis Inadequate oral intake Etiology acute illness As Evidenced by Signs and Symptoms pt eating <25% of meals Is patient on ventilator? No Is Patient Ambulatory and/or Out of Bed No REE-([place]-confined to bed) 1762.308 Kcal/Kg value to use for calculation 15 Approximate Energy Requirements Using 1335 kcal/Kg Calculation Used for Recommendations Kcal/kg Additional Notes Protein: (0.8-1g/kg AdjBW: 72kg) 57-72g Fluid: 1 ml/kcal Nutrition Intervention Change Diet Order: add consistent CHO Add Supplement/Snack (indicate name/kcal Glucerna TID /protein ) Provides kCal: 660 Provides Protein (gm) 30 Goal #1 Meet at least 75% of protein and energy needs via PO and ONS intakes Anticipated Discharge Needs: Cardiac, consistent CHO Follow-Up By: 01/28/21 Additional Comments FU for intakes and ONS tolerance
[2021-01-24] MEDS: amLODIPine 5 MG TAB PO SCH (15:27)
[2021-01-24] MEDS: MIRTAZAPINE 15 MG TAB PO SCH (21:22)
[2021-01-25] MEDS: INSULIN LISPRO 100 UNIT/ML SUB-Q SCH ×6 (02:02→23:44)
[2021-01-25] MEDS: IPRATROPIUM/ALBUTEROL SULFATE 3 ML AMPUL.NEB IH SCH ×4 (04:46→19:17)
[2021-01-25] MEDS: FAMOTIDINE 20 MG TAB PO SCH ×2 (09:48→23:46)
[2021-01-25] MEDS: amLODIPine 5 MG TAB PO SCH (09:48)
[2021-01-25] MEDS: INSULIN GLARGINE 100 UNITS/ML SUB-Q SCH ×2 (09:48→23:45)
[2021-01-25] MEDS: dexAMETHasone 4 MG/ML VIAL IV SCH ×2 (09:48→23:42)
[2021-01-25] MEDS: HALOPERIDOL 1 MG TAB PO SCH ×2 (09:48→23:44)
[2021-01-25] MEDS: ENOXAPARIN 100 MG/1 ML INJ SUB-Q SCH ×2 (09:50→23:43)
--- NOTE | 2021-01-25 09:50 | Progress Note ---
Assessment and Plan Assessment and plan: This is a 55-year-old female with schizophrenia who presented to [facility] on 01/18 for shortness of breath, cough, subjective fever and not feeling well for the last couple days with known COVID-19 exposure. While in the emergency room patient was switched from non rebreather mask to high flow nasal cannula and his CTA chest showed no acute pulmonary embolism. Patient was admitted to the hospital service as a COVID-19 PUI with consults to CCM, infectious disease, psych. Severe COVID-19 pneumonia Acute hypoxic respiratory failure Obesity Schizophrenia Leukocytosis Hyperglycemia Schizophrenia Hypernatremia Hypercholermia -CCM, infectious disease, psychiatry consulted, appreciate recommendations -COVID-19 PCR positive -Droplet/contact isolation -Remdesivir, azithromycin, ceftriaxone, dexamethasone (twice daily dosing) -s/p Actemra -Wean supplemental oxygen as tolerated, pulmonary hygiene -Prone as tolerated -Trend COVID-19 inflammatory markers for risk stratification, CBC, CMP -SSI, Lantus -01/18 bilateral lower extremity Doppler ultrasound negative for DVT -01/17 CTA shows no evidence of pulmonary embolism, extensive bilateral pneumonia, hepatomegaly with hepatic steatosis 01/18/2021 -Acute hypoxic respiratory failure requiring high flow oxygen 40 L. Nebulizer treatment -Patient is admitted for suspected Covid pneumonia. Patient is on dexamethasone, COVID-19 test is pending. Patient is on empiric antibiotics. -ID consulted, will consult pulmonary. -Patient has hyponatremia yesterday and I will repeat and if it is low I will manage accordingly -Patient has elevated D-dimer and CTA chest and bilateral Doppler ultrasound of the lower extremities pending 01/19/2021 -Acute hypoxic respiratory failure currently on BiPAP, nebulizer treatment. I will put in orders to transfer to [facility] yesterday but there was no bed. -Patient is positive for Covid and she is on Decadron and remdesivir. Actemra was ordered on 01/19/2021 -ID evaluated the patient and recommend to continue Decadron and remdesivir, also to continue ceftriaxone and azithromycin for 5 days because of the elevated procalcitonin level. Pulmonary was consulted and recommend to continue current management and add Lasix -CTA chest was done and significant for bilateral pulmonary opacities, negative for PE, Doppler ultrasound of the lower extremities was negative for DVT. -Prognosis is guarded. -Patient is currently on BiPAP and she was agitated and trying to take off the BiPAP, I put the patient on restraints. Discussed with packing house laborer to transfer the patient to IMCU and if there is no bed she need to be transferred to CCU. 01/20: Patient received 5 mg of Haldol for severe agitation and refusal to keep high flow nasal cannula in place. [facility] ordered Lasix again. Psych was consulted today. Patient was on BiPAP therapy all night and RT attempted to give her a break patient is on high flow nasal cannula however she did not keep this in place and was paced back on BiPAP after receiving Haldol. She was started on Lantus today. 01/21: Patient is on BiPAP and on time examination was on 20/10 100% FiO2. Patient was started on Lantus. Psych consult completed and started on Haldol p.o. twice daily and Mirtazepin PO daily. No acute events reported overnight. Patient's D-dimer is greater than 10,000 started on prophylactic Lovenox as recent CTA chest and bilateral lower extremity Doppler ultrasound were negative. 01/22: Patient has been taken off BiPAP therapy and placed on high flow nasal cannula. Patient has been downgraded to IMCU. Patient's hyponatremia and hypochloremia have worsened. 01/23: Patient was on BiPAP overnight with FiO2 85% and IPAP 20/EPAP 10. Patient currently with high flow nasal cannula 40 L O2 with an FiO2 of 100%. Continue remdesivir and dexamethasone. Patient is s/p Actemra on 01/20. Continue empiric antibiotics per ID recommendations. Continue anticoagulation per protocol. 01/24: Patient is tachycardic and hypertensive and [facility] has opted to add amlo dipine. Patient remains on 40 L 100% high flow nasal cannula. Continue remdesivir and dexamethasone. Patient is s/p Actemra on 01/20. Continue empiric antibiotics per ID recommendations. Continue anticoagulation per protocol. 01/25: Patient currently with high flow nasal cannula 40 L/min with FiO2 100%. Continue dexamethasone. Patient has completed remdesivir and s/p Actemra on 01/20. Continue full dose anticoagulation given high elevated D-dimer. Continue to trend inflammatory markers. Prognosis remains guarded. History Interval history: No new issues Hospitalist Physical - Constitutional Vitals: Temp Pulse Resp BP Pulse Ox 98.4 F 104 H 23 162/73 91 01/25/21 08:00 01/25/21 07:59 01/25/21 07:59 01/25/21 07:01 01/25/21 07:58 General appearance: Present: no acute distress, well-nourished - EENT Eyes: Present: PERRL, EOM intact ENT: hearing intact, clear oral mucosa, dentition normal - Neck Neck: Present: supple, normal ROM - Respiratory Respiratory effort: normal Respiratory: bilateral: CTA - Cardiovascular Rhythm: regular Heart Sounds: Present: S1 & S2. Absent: gallop, rub - Extremities Extremities: no ischemia, No edema, Full ROM - Abdominal General gastrointestinal: soft, non-tender, non-distended, normal bowel sounds - Integumentary Integumentary: Present: clear, warm, dry - Neurologic Neurologic: CNII-XII intact, moves all extremities HEART Score - HEART Score Troponin: Troponin T < 0.010 ng/mL (0.00-0.029) 01/17/21 16:41 Results - Labs CBC & Chem 7: 01/24/21 07:03 01/24/21 07:03 Labs: Laboratory Last Values WBC 7.5 K/mm3 (4.5-11.0) 01/24/21 07:03 RBC 5.49 M/mm3 (3.65-5.03) H 01/24/21 07:03 Hgb 12.5 gm/dl (10.1-14.3) 01/24/21 07:03 Hct 41.0 % (30.3-42.9) 01/24/21 07:03 MCV 75 fl (79-97) L 01/24/21 07:03 MCH 23 pg (28-32) L 01/24/21 07:03 MCHC 30 % (30-34) 01/24/21 07:03 RDW 15.2 % (13.2-15.2) 01/24/21 07:03 Plt Count 298 K/mm3 (140-440) 01/24/21 07:03 Lymph % (Auto) 7.0 % (13.4-35.0) L 01/24/21 07:03 [place] % (Auto) 6.1 % (0.0-7.3) 01/24/21 07:03 Eos % (Auto) 0.3 % (0.0-4.3) 01/24/21 07:03 Baso % (Auto) 0.5 % (0.0-1.8) 01/24/21 07:03 Lymph # (Auto) 0.5 K/mm3 (1.2-5.4) L 01/24/21 07:03 [place] # (Auto) 0.5 K/mm3 (0.0-0.8) 01/24/21 07:03 Eos # (Auto) 0.0 K/mm3 (0.0-0.4) 01/24/21 07:03 Baso # (Auto) 0.0 K/mm3 (0.0-0.1) 01/24/21 07:03 Add Manual Diff Complete 01/19/21 05:11 Total Counted 100 01/19/21 05:11 Seg Neutrophils % 86.1 % (40.0-70.0) H 01/24/21 07:03 Seg Neuts % (Manual) 88.0 % (40.0-70.0) H 01/19/21 05:11 Lymphocytes % (Manual) 10.0 % (13.4-35.0) L 01/19/21 05:11 Monocytes % (Manual) 2.0 % (0.0-7.3) 01/19/21 05:11 Nucleated RBC % Not Reportable 01/19/21 05:11 Seg Neutrophils # 6.5 K/mm3 (1.8-7.7) 01/24/21 07:03 Seg Neutrophils # Man 12.5 K/mm3 (1.8-7.7) H 01/19/21 05:11 Band Neutrophils # 0.0 K/mm3 01/19/21 05:11 Lymphocytes # (Manual) 1.4 K/mm3 (1.2-5.4) 01/19/21 05:11 Abs React Lymphs (Man) 0.0 K/mm3 01/19/21 05:11 Monocytes # (Manual) 0.3 K/mm3 (0.0-0.8) 01/19/21 05:11 Eosinophils # (Manual) 0.0 K/mm3 (0.0-0.4) 01/19/21 05:11 Basophils # (Manual) 0.0 K/mm3 (0.0-0.1) 01/19/21 05:11 Metamyelocytes # 0.0 K/mm3 01/19/21 05:11 Myelocytes # 0.0 K/mm3 01/19/21 05:11 Promyelocytes # 0.0 K/mm3 01/19/21 05:11 Blast Cells # 0.0 K/mm3 01/19/21 05:11 WBC Morphology Not Reportable 01/19/21 05:11 Hypersegmented Neuts Not Reportable 01/19/21 05:11 Hyposegmented Neuts Not Reportable 01/19/21 05:11 Hypogranular Neuts Not Reportable 01/19/21 05:11 Smudge Cells Not Reportable 01/19/21 05:11 Toxic Granulation Not Reportable 01/19/21 05:11 Toxic Vacuolation Not Reportable 01/19/21 05:11 Dohle Bodies Not Reportable 01/19/21 05:11 Pelger-Huet Anomaly Not Reportable 01/19/21 05:11 Inder Rods Not Reportable 01/19/21 05:11 Platelet Estimate Consistent w auto 01/19/21 05:11 Clumped Platelets Not Reportable 01/19/21 05:11 Plt Clumps, EDTA Not Reportable 01/19/21 05:11 Large Platelets Not Reportable 01/19/21 05:11 Giant Platelets Not Reportable 01/19/21 05:11 Platelet Satelliting Not Reportable 01/19/21 05:11 Plt Morphology Comment Not Reportable 01/19/21 05:11 RBC Morphology Not Reportable 01/19/21 05:11 Dimorphic RBCs Not Reportable 01/19/21 05:11 Polychromasia Not Reportable 01/19/21 05:11 Hypochromasia 1+ 01/19/21 05:11 Poikilocytosis Not Reportable 01/19/21 05:11 Anisocytosis Not Reportable 01/19/21 05:11 Microcytosis Not Reportable 01/19/21 05:11 Macrocytosis Not Reportable 01/19/21 05:11 Spherocytes Not Reportable 01/19/21 05:11 Pappenheimer Bodies Not Reportable 01/19/21 05:11 Sickle Cells Not Reportable 01/19/21 05:11 Target Cells Not Reportable 01/19/21 05:11 Tear Drop Cells Not Reportable 01/19/21 05:11 Ovalocytes Not Reportable 01/19/21 05:11 Helmet Cells Not Reportable 01/19/21 05:11 Navarro-Platinum Bodies Not Reportable 01/19/21 05:11 Evans Rings Not Reportable 01/19/21 05:11 Giorgio Cells Not Reportable 01/19/21 05:11 Bite Cells Not Reportable 01/19/21 05:11 Crenated Cell Not Reportable 01/19/21 05:11 Elliptocytes Not Reportable 01/19/21 05:11 Acanthocytes (Spur) Not Reportable 01/19/21 05:11 Rouleaux Not Reportable 01/19/21 05:11 Hemoglobin C Crystals Not Reportable 01/19/21 05:11 Schistocytes Not Reportable 01/19/21 05:11 Malaria parasites Not Reportable 01/19/21 05:11 Chai Bodies Not Reportable 01/19/21 05:11 Hem Pathologist Commnt No 01/19/21 05:11 D-Dimer > 81550 ng/mlDDU (0-234) H 01/21/21 04:45 ABG pH 7.461 pH Units (7.350-7.450) H 01/18/21 17:18 ABG pCO2 36.6 mm Hg 01/18/21 17:18 ABG pO2 53.1 mm Hg (80.0-90.0) L 01/18/21 17:18 ABG HCO3 25.5 mmol/L (20.0-26.0) 01/18/21 17:18 ABG O2 Saturation 89.4 % (95.0-99.0) L 01/18/21 17:18 ABG O2 Content 15.1 (0.0-44) 01/18/21 17:18 ABG Base Excess 1.9 mmol/L (-2.0-3.0) 01/18/21 17:18 ABG Hemoglobin 12.2 gm/dl (12.0-16.0) 01/18/21 17:18 ABG Carboxyhemoglobin 1.2 % (0.0-5.0) 01/18/21 17:18 ABG Methemoglobin 0.5 % (0.0-1.5) 01/18/21 17:18 Oxyhemoglobin 88.0 % (95.0-99.0) L 01/18/21 17:18 FiO2 100 % 01/18/21 17:18 Sodium 149 mmol/L (137-145) H 01/24/21 07:03 Potassium 4.0 mmol/L (3.6-5.0) 01/24/21 07:03 Chloride 111.4 mmol/L (98-107) H 01/24/21 07:03 Carbon Dioxide 28 mmol/L (22-30) 01/24/21 07:03 Anion Gap 14 mmol/L 01/24/21 07:03 BUN 24 mg/dL (7-17) H 01/24/21 07:03 Creatinine 0.7 mg/dL (0.6-1.2) 01/24/21 07:03 Estimated GFR > 60 ml/min 01/24/21 07:03 BUN/Creatinine Ratio 34 % 01/24/21 07:03 Glucose 339 mg/dL (65-100) H 01/24/21 07:03 POC Glucose 243 mg/dL (70-105) H 01/25/21 05:35 Lactic Acid 1.70 mmol/L (0.7-2.0) 01/17/21 16:41 Calcium 8.4 mg/dL (8.4-10.2) 01/24/21 07:03 Ferritin 1116.0 ng/mL (10.0-200.0) H 01/23/21 05:59 Total Bilirubin 0.30 mg/dL (0.1-1.2) 01/21/21 11:29 AST 34 units/L (5-40) 01/21/21 11:29 ALT 38 units/L (7-56) 01/21/21 11:29 Alkaline Phosphatase 117 units/L (35-129) 01/21/21 11:29 Lactate Dehydrogenase 680 units/L (91-180) H 01/23/21 05:59 Troponin T < 0.010 ng/mL (0.00-0.029) 01/17/21 16:41 C-Reactive Protein 5.80 mg/dL (0.00-1.30) H 01/23/21 05:59 NT-Pro-B Natriuret Pep 40.88 pg/mL (0-900) 01/17/21 16:41 Total Protein 7.3 g/dL (6.3-8.2) 01/21/21 11:29 Albumin 3.4 g/dL (3.9-5) L 01/21/21 11:29 Albumin/Globulin Ratio 0.9 % 01/21/21 11:29 Procalcitonin 0.39 ng/mL (<0.15) 01/17/21 17:46 Coronavirus (PCR) Positive (Negative) A 01/17/21 09:25 Estrada/IV: Voiding Method External Female Catheter Active Medications - Current Medications Current Medications: Generic Name Dose Route Start Last Admin Trade Name Freq PRN Reason Stop Dose Admin Acetaminophen 650 mg 01/18/21 00:36 01/22/21 23:46 Acetaminophen 325 Mg Tab PO 650 mg Q4H PRN Administration Pain MILD(1-3)/Fever >100.5/PAN Albuterol/Ipratropium 1 ampul 01/18/21 02:00 01/25/21 07:57 Ipratropium/Albuterol Sulfate 3 Ml Ampul.Neb IH 1 ampul Q6HRT PJ Administration Amlodipine Besylate 5 mg 01/24/21 15:00 01/24/21 15:27 Amlodipine 5 Mg Tab PO 5 mg QDAY PJ Administration Dexamethasone 6 mg 01/20/21 10:00 01/24/21 21:16 Dexamethasone 4 Mg/Ml Vial IV 01/28/21 22:01 6 mg BID PJ Administration Enoxaparin Sodium 100 mg 01/21/21 10:00 01/24/21 21:18 Enoxaparin 100 Mg/1 Ml Inj 1 mg/kg (100 mg) 100 mg SUB-Q Administration Q12HR PJ Protocol Famotidine 20 mg 01/18/21 10:00 01/24/21 21:21 Famotidine 20 Mg Tab PO 20 mg BID PJ Administration Haloperidol 1 mg 01/24/21 12:12 01/24/21 21:19 Haloperidol 1 Mg Tab PO 1 mg BID PJ Administration Hydralazine HCl 10 mg 01/18/21 00:38 01/24/21 23:12 Hydralazine 20 Mg/1 Ml Inj IV 10 mg Q6H PRN Administration htn Hydromorphone HCl 0.5 mg 01/20/21 11:00 Hydromorphone 1 Mg/1 Ml Inj IV Q6H PRN Pain , Severe (7-10) Insulin Glargine 20 units 01/20/21 22:00 01/24/21 21:30 Insulin Glargine 100 Units/Ml SUB-Q 20 units QHS PJ Administration Insulin Glargine 20 units 01/24/21 10:00 01/24/21 09:03 Insulin Glargine 100 Units/Ml SUB-Q 20 units DAILY PJ Administration Insulin Human Lispro 0 unit 01/21/21 14:00 01/25/21 06:13 Insulin Lispro 100 Unit/Ml SUB-Q 4 unit Q4HR PJ Administration Protocol Mirtazapine 7.5 mg 01/21/21 22:00 01/24/21 21:22 Mirtazapine 15 Mg Tab PO 7.5 mg QHS PJ Administration Ondansetron HCl 4 mg 01/18/21 00:36 Ondansetron 4 Mg/2 Ml Inj IV Q8H PRN Nausea And Vomiting Sodium Chloride 10 ml 01/18/21 10:00 01/24/21 23:03 Sodium Chloride 0.9% 10 Ml Flush Syringe IV 10 ml BID PJ Administration Sodium Chloride 10 ml 01/18/21 00:36 Sodium Chloride 0.9% 10 Ml Flush Syringe IV PRN PRN LINE FLUSH Ziprasidone 10 mg 01/20/21 10:57 01/21/21 21:29 Ziprasidone Mesylate 20 Mg Vial IM 10 mg Q6H PRN Administration AGITATION Nutrition/Malnutrition Assess - Dietary Evaluation Nutrition/Malnutrition Findings: Nutrition Notes Start: 01/24/21 10:40 Freq: Status: Active Protocol: Document 01/24/21 10:40 (Rec: 01/24/21 10:52 [email or web address]) Nutrition Notes Need for Assessment generated from: LOS Initial or Follow up Assessment Current Diagnosis Respiratory Failure Other Pertinent Diagnosis pneu, COVID-19 Current Diet Cardiac Labs/Tests Na 149 BUN 24 BG 339 Pertinent Medications Insulin Decadron Height 5 ft 4 in Weight 89 kg [place] Body Weight (kg) 54.54 BMI 33.7 Weight Status Obese Subjective/Other Information Screen for LOS. Pt did not answer phone. Per RN, pt has poor appetite but drinks well. Burn Absent Trauma Absent Current % PO Poor (25-49%) Minimum of two criteria No Energy Intake (non-severe) <75% Estimated Energy Requirement >7 days #1 Nutrition Diagnosis Inadequate oral intake Etiology acute illness As Evidenced by Signs and Symptoms pt eating <25% of meals Is patient on ventilator? No Is Patient Ambulatory and/or Out of Bed No REE-([facility] [place]-confined to bed) 1762.308 Kcal/Kg value to use for calculation 15 Approximate Energy Requirements Using 1335 kcal/Kg Calculation Used for Recommendations Kcal/kg Additional Notes Protein: (0.8-1g/kg AdjBW: 72kg) 57-72g Fluid: 1 ml/kcal Nutrition Intervention Change Diet Order: add consistent CHO Add Supplement/Snack (indicate name/kcal Glucerna TID /protein ) Provides kCal: 660 Provides Protein (gm) 30 Goal #1 Meet at least 75% of protein and energy needs via PO and ONS intakes Anticipated Discharge Needs: Cardiac, consistent CHO Follow-Up By: 01/28/21 Additional Comments FU for intakes and ONS tolerance
--- NOTE | 2021-01-25 13:09 | Progress Note ---
Assessment and Plan Assessment and Plan Imp: 1. Covid-19 w/ viral pneumonia 2. ARDS 3. Acute resp. failure, hypoxia 4. Hypernatremia 5. Obesity 6. Hypertension Rec: 1. Decadaron IV 2. Remdesivir x 5 days 3. Agree with therapeutic Lovenox 4. Unable to prone due to lack of cooperation and need for restraints 5. Monitor inflammatory markers 6. Encourage free water intake; repeat labs in AM 7. Wean HFNC to keep sats 88% or > 8. Add amlodipine orally for blood pressure Subjective Date of service: 01/25/21 Principal diagnosis: Covid-19 Interval history: Patient much more awake and alert. Blood pressure is running high. Currently o n hydralazine on as needed basis. Remains on high flow nasal cannula with 40 L nasal correction O2 flow 100% FiO2 with sats in high 80's while sleeping Objective Vital Signs - 12hr 01/25/21 01/25/21 01/25/21 02:01 03:01 04:00 Temperature 99.1 F Pulse Rate 118 H 111 H 111 H Pulse Rate [ Anterior Bilateral Throughout] Pulse Rate [ 107 H From Monitor] Respiratory 31 H 21 21 Rate Respiratory Rate [Anterior Bilateral Throughout] Blood Pressure 150/72 135/65 128/89 O2 Sat by Pulse 94 94 94 Oximetry 01/25/21 01/25/21 01/25/21 04:45 05:00 06:00 Temperature Pulse Rate 105 H 100 H 106 H Pulse Rate [ Anterior Bilateral Throughout] Pulse Rate [ From Monitor] Respiratory 21 23 22 Rate Respiratory Rate [Anterior Bilateral Throughout] Blood Pressure 128/89 149/73 145/78 O2 Sat by Pulse 95 95 94 Oximetry 01/25/21 01/25/21 01/25/21 07:01 07:58 07:59 Temperature Pulse Rate 102 H Pulse Rate [ 104 H Anterior Bilateral Throughout] Pulse Rate [ From Monitor] Respiratory 25 H Rate Respiratory 23 Rate [Anterior Bilateral Throughout] Blood Pressure 162/73 O2 Sat by Pulse 91 91 Oximetry 01/25/21 01/25/21 01/25/21 08:00 09:00 10:01 Temperature 98.4 F Pulse Rate 110 H 105 H 97 H Pulse Rate [ Anterior Bilateral Throughout] Pulse Rate [ 107 H From Monitor] Respiratory 25 H 19 18 Rate Respiratory Rate [Anterior Bilateral Throughout] Blood Pressure 161/86 154/76 183/80 O2 Sat by Pulse 97 99 97 Oximetry 01/25/21 01/25/21 11:01 12:00 Temperature 98.2 F Pulse Rate 78 Pulse Rate [ Anterior Bilateral Throughout] Pulse Rate [ From Monitor] Respiratory 18 Rate Respiratory Rate [Anterior Bilateral Throughout] Blood Pressure 155/64 O2 Sat by Pulse 97 Oximetry Constitutional: alert, other (critically ill on HFNC 100% FiO2) Eyes: non-icteric ENT: oropharynx moist Neck: supple, other (large in circumference) Effort: mildly labored Ascultation: Bilateral: clear Cardiovascular: other (tachy, RR; no mrg) Gastrointestinal: normoactive bowel sounds, soft, non-tender, non-distended Integumentary: normal Extremities: no cyanosis, no edema, pink and warm Neurologic: normal mental status, non-focal exam, pupils equal and round Psychiatric: mood appropriate, affect normal CBC and BMP: 01/24/21 07:03 01/24/21 07:03 ABG, PT/INR, D-dimer: ABG ABG pH 7.461 pH Units (7.350-7.450) H 01/18/21 17:18 ABG pCO2 36.6 mm Hg 01/18/21 17:18 ABG pO2 53.1 mm Hg (80.0-90.0) L 01/18/21 17:18 ABG O2 Saturation 89.4 % (95.0-99.0) L 01/18/21 17:18 PT/INR, D-dimer D-Dimer > 57479 ng/mlDDU (0-234) H 01/21/21 04:45 Abnormal lab findings: Abnormal Labs 01/17/21 01/17/21 01/17/21 09:25 16:41 16:41 WBC RBC 5.23 H MCV 76 L MCH 24 L RDW Lymph % (Auto) 9.4 L Lymph # (Auto) 0.8 L Seg Neutrophils % 85.4 H Seg Neuts % (Manual) Lymphocytes % (Manual) Seg Neutrophils # Man D-Dimer ABG pH ABG pO2 ABG O2 Saturation Oxyhemoglobin Sodium 128 L Chloride 90.8 L Carbon Dioxide BUN Glucose 372 H POC Glucose Calcium Ferritin AST 98 H Lactate Dehydrogenase C-Reactive Protein Total Protein Albumin 3.2 L Coronavirus (PCR) Positive A 01/17/21 01/17/21 01/17/21 17:46 17:46 17:46 WBC RBC MCV MCH RDW Lymph % (Auto) Lymph # (Auto) Seg Neutrophils % Seg Neuts % (Manual) Lymphocytes % (Manual) Seg Neutrophils # Man D-Dimer 1058.54 H ABG pH ABG pO2 ABG O2 Saturation Oxyhemoglobin Sodium Chloride Carbon Dioxide BUN Glucose 369 H POC Glucose Calcium Ferritin 668.4 H AST Lactate Dehydrogenase 519 H C-Reactive Protein 19.20 H Total Protein Albumin Coronavirus (PCR) 01/18/21 01/18/21 01/19/21 09:01 17:18 05:11 WBC 14.2 H RBC MCV 74 L MCH 23 L RDW Lymph % (Auto) Lymph # (Auto) Seg Neutrophils % Seg Neuts % (Manual) 88.0 H Lymphocytes % (Manual) 10.0 L Seg Neutrophils # Man 12.5 H D-Dimer ABG pH 7.461 H ABG pO2 53.1 L ABG O2 Saturation 89.4 L Oxyhemoglobin 88.0 L Sodium 132 L Chloride 93.6 L Carbon Dioxide BUN 18 H Glucose 367 H POC Glucose Calcium 7.8 L Ferritin AST Lactate Dehydrogenase C-Reactive Protein Total Protein Albumin Coronavirus (PCR) 01/19/21 01/19/21 01/19/21 05:11 11:06 14:43 WBC RBC MCV MCH RDW Lymph % (Auto) Lymph # (Auto) Seg Neutrophils % Seg Neuts % (Manual) Lymphocytes % (Manual) Seg Neutrophils # Man D-Dimer ABG pH ABG pO2 ABG O2 Saturation Oxyhemoglobin Sodium Chloride Carbon Dioxide BUN 18 H Glucose 304 H 379 H POC Glucose 382 H Calcium 8.3 L Ferritin AST 92 H 96 H Lactate Dehydrogenase C-Reactive Protein Total Protein Albumin 3.0 L 3.0 L Coronavirus (PCR) 01/19/21 01/19/21 01/20/21 16:18 22:18 07:31 WBC RBC MCV MCH RDW Lymph % (Auto) Lymph # (Auto) Seg Neutrophils % Seg Neuts % (Manual) Lymphocytes % (Manual) Seg Neutrophils # Man D-Dimer ABG pH ABG pO2 ABG O2 Saturation Oxyhemoglobin Sodium Chloride Carbon Dioxide BUN Glucose POC Glucose 374 H 341 H 344 H Calcium Ferritin AST Lactate Dehydrogenase C-Reactive Protein Total Protein Albumin Coronavirus (PCR) 01/20/21 01/20/21 01/20/21 07:33 12:14 13:54 WBC RBC MCV MCH RDW Lymph % (Auto) Lymph # (Auto) Seg Neutrophils % Seg Neuts % (Manual) Lymphocytes % (Manual) Seg Neutrophils # Man D-Dimer ABG pH ABG pO2 ABG O2 Saturation Oxyhemoglobin Sodium Chloride Carbon Dioxide BUN 32 H 31 H Glucose 343 H 396 H POC Glucose 365 H Calcium Ferritin AST 57 H 54 H Lactate Dehydrogenase C-Reactive Protein Total Protein 8.3 H Albumin 2.7 L 3.1 L Coronavirus (PCR) 01/20/21 01/20/21 01/21/21 18:28 21:25 04:45 WBC RBC MCV MCH RDW Lymph % (Auto) Lymph # (Auto) Seg Neutrophils % Seg Neuts % (Manual) Lymphocytes % (Manual) Seg Neutrophils # Man D-Dimer ABG pH ABG pO2 ABG O2 Saturation Oxyhemoglobin Sodium Chloride Carbon Dioxide 31 H BUN 41 H Glucose 377 H POC Glucose 403 H 340 H Calcium Ferritin AST Lactate Dehydrogenase C-Reactive Protein Total Protein 8.3 H Albumin 3.0 L Coronavirus (PCR) 01/21/21 01/21/21 01/21/21 04:45 04:45 04:45 WBC RBC MCV MCH RDW Lymph % (Auto) Lymph # (Auto) Seg Neutrophils % Seg Neuts % (Manual) Lymphocytes % (Manual) Seg Neutrophils # Man D-Dimer > 37935 H ABG pH ABG pO2 ABG O2 Saturation Oxyhemoglobin Sodium Chloride Carbon Dioxide BUN Glucose POC Glucose Calcium Ferritin 1688.0 H AST Lactate Dehydrogenase 649 H C-Reactive Protein 17.00 H Total Protein Albumin Coronavirus (PCR) 01/21/21 01/21/21 01/21/21 09:45 11:29 12:09 WBC RBC MCV MCH RDW Lymph % (Auto) Lymph # (Auto) Seg Neutrophils % Seg Neuts % (Manual) Lymphocytes % (Manual) Seg Neutrophils # Man D-Dimer ABG pH ABG pO2 ABG O2 Saturation Oxyhemoglobin Sodium 151 H Chloride Carbon Dioxide BUN 40 H Glucose 412 H POC Glucose 401 H 372 H Calcium Ferritin AST Lactate Dehydrogenase C-Reactive Protein Total Protein Albumin 3.4 L Coronavirus (PCR) 01/21/21 01/21/21 01/22/21 18:26 21:09 02:00 WBC RBC MCV MCH RDW Lymph % (Auto) Lymph # (Auto) Seg Neutrophils % Seg Neuts % (Manual) Lymphocytes % (Manual) Seg Neutrophils # Man D-Dimer ABG pH ABG pO2 ABG O2 Saturation Oxyhemoglobin Sodium Chloride Carbon Dioxide BUN Glucose POC Glucose 376 H 322 H 231 H Calcium Ferritin AST Lactate Dehydrogenase C-Reactive Protein Total Protein Albumin Coronavirus (PCR) 01/22/21 01/22/21 01/22/21 05:24 08:25 08:25 WBC RBC 5.44 H MCV 75 L MCH 23 L RDW 15.5 H Lymph % (Auto) Lymph # (Auto) Seg Neutrophils % Seg Neuts % (Manual) Lymphocytes % (Manual) Seg Neutrophils # Han D-Dimer ABG pH ABG pO2 ABG O2 Saturation Oxyhemoglobin Sodium 155 H Chloride 112.4 H Carbon Dioxide BUN 33 H Glucose 274 H POC Glucose 275 H Calcium Ferritin AST Lactate Dehydrogenase C-Reactive Protein Total Protein Albumin Coronavirus (PCR) 01/22/21 01/22/21 01/22/21 11:53 16:03 21:41 WBC RBC MCV MCH RDW Lymph % (Auto) Lymph # (Auto) Seg Neutrophils % Seg Neuts % (Manual) Lymphocytes % (Manual) Seg Neutrophils # Han D-Dimer ABG pH ABG pO2 ABG O2 Saturation Oxyhemoglobin Sodium Chloride Carbon Dioxide BUN Glucose POC Glucose 265 H 293 H 279 H Calcium Ferritin AST Lactate Dehydrogenase C-Reactive Protein Total Protein Albumin Coronavirus (PCR) 01/23/21 01/23/21 01/23/21 02:03 05:46 05:59 WBC RBC MCV MCH RDW Lymph % (Auto) Lymph # (Auto) Seg Neutrophils % Seg Neuts % (Manual) Lymphocytes % (Manual) Seg Neutrophils # Han D-Dimer ABG pH ABG pO2 ABG O2 Saturation Oxyhemoglobin Sodium Chloride Carbon Dioxide BUN Glucose POC Glucose 268 H 303 H Calcium Ferritin 1116.0 H AST Lactate Dehydrogenase C-Reactive Protein Total Protein Albumin Coronavirus (PCR) 01/23/21 01/23/21 01/23/21 05:59 07:42 09:11 WBC RBC MCV MCH RDW Lymph % (Auto) Lymph # (Auto) Seg Neutrophils % Seg Neuts % (Manual) Lymphocytes % (Manual) Seg Neutrophils # Man D-Dimer ABG pH ABG pO2 ABG O2 Saturation Oxyhemoglobin Sodium Chloride Carbon Dioxide BUN Glucose POC Glucose 291 H 285 H Calcium Ferritin AST Lactate Dehydrogenase 680 H C-Reactive Protein 5.80 H Total Protein Albumin Coronavirus (PCR) 01/23/21 01/23/21 01/23/21 14:06 17:05 17:59 WBC RBC MCV MCH RDW Lymph % (Auto) Lymph # (Auto) Seg Neutrophils % Seg Neuts % (Manual) Lymphocytes % (Manual) Seg Neutrophils # Man D-Dimer ABG pH ABG pO2 ABG O2 Saturation Oxyhemoglobin Sodium Chloride Carbon Dioxide BUN Glucose POC Glucose 228 H 300 H 278 H Calcium Ferritin AST Lactate Dehydrogenase C-Reactive Protein Total Protein Albumin Coronavirus (PCR) 01/23/21 01/24/21 01/24/21 21:43 02:14 05:15 WBC RBC MCV MCH RDW Lymph % (Auto) Lymph # (Auto) Seg Neutrophils % Seg Neuts % (Manual) Lymphocytes % (Manual) Seg Neutrophils # Man D-Dimer ABG pH ABG pO2 ABG O2 Saturation Oxyhemoglobin Sodium Chloride Carbon Dioxide BUN Glucose POC Glucose 223 H 427 H 392 H Calcium Ferritin AST Lactate Dehydrogenase C-Reactive Protein Total Protein Albumin Coronavirus (PCR) 01/24/21 01/24/21 01/24/21 07:03 07:03 09:10 WBC RBC 5.49 H MCV 75 L MCH 23 L RDW Lymph % (Auto) 7.0 L Lymph # (Auto) 0.5 L Seg Neutrophils % 86.1 H Seg Neuts % (Manual) Lymphocytes % (Manual) Seg Neutrophils # Man D-Dimer ABG pH ABG pO2 ABG O2 Saturation Oxyhemoglobin Sodium 149 H Chloride 111.4 H Carbon Dioxide BUN 24 H Glucose 339 H POC Glucose 284 H Calcium Ferritin AST Lactate Dehydrogenase C-Reactive Protein Total Protein Albumin Coronavirus (PCR) 01/24/21 01/24/21 01/24/21 13:47 18:30 21:58 WBC RBC MCV MCH RDW Lymph % (Auto) Lymph # (Auto) Seg Neutrophils % Seg Neuts % (Manual) Lymphocytes % (Manual) Seg Neutrophils # Man D-Dimer ABG pH ABG pO2 ABG O2 Saturation Oxyhemoglobin Sodium Chloride Carbon Dioxide BUN Glucose POC Glucose 317 H 180 H 262 H Calcium Ferritin AST Lactate Dehydrogenase C-Reactive Protein Total Protein Albumin Coronavirus (PCR) 01/25/21 01/25/21 01/25/21 01:22 05:35 08:36 WBC RBC MCV MCH RDW Lymph % (Auto) Lymph # (Auto) Seg Neutrophils % Seg Neuts % (Manual) Lymphocytes % (Manual) Seg Neutrophils # Man D-Dimer ABG pH ABG pO2 ABG O2 Saturation Oxyhemoglobin Sodium Chloride Carbon Dioxide BUN Glucose POC Glucose 280 H 243 H 216 H Calcium Ferritin AST Lactate Dehydrogenase C-Reactive Protein Total Protein Albumin Coronavirus (PCR)
[2021-01-25 15:57] LABS: Blood Urea Nitrogen 19 mg/dL (7-17); Calcium 8.3 mg/dL (8.4-10.2); Hemolysis Index 12
[2021-01-25 16:20] LABS: BUN/Creatinine Ratio 32
[2021-01-25] MEDS: MIRTAZAPINE 15 MG TAB PO SCH (23:46)
[2021-01-26] MEDS: INSULIN LISPRO 100 UNIT/ML SUB-Q SCH ×6 (02:16→23:17)
[2021-01-26] MEDS: IPRATROPIUM/ALBUTEROL SULFATE 3 ML AMPUL.NEB IH SCH ×4 (04:05→19:11)
[2021-01-26 06:20] LABS: Blood Urea Nitrogen 24 mg/dL (7-17); Calcium 8.4 mg/dL (8.4-10.2); Hemolysis Index 4
[2021-01-26 06:24] LABS: BUN/Creatinine Ratio 34
[2021-01-26 06:31] LABS: Basophils % (Auto) 0.5 % (0.0-1.8); Eosinophils % (Auto) 0.4 % (0.0-4.3); Lymphocytes # (Auto) 0.8 K/mm3 (1.2-5.4); Lymphocytes % (Auto) 13.8 % (13.4-35.0); Mean Corpuscular HGB Conc 30 % (30-34); Mean Corpuscular Volume 77 fl (79-97); Monocytes # (Auto) 0.4 K/mm3 (0.0-0.8); Monocytes % (Auto) 6.4 % (0.0-7.3); Platelet Count 281 K/mm3 (140-440); Red Blood Count 5.49 M/mm3 (3.65-5.03); Red Cell Distribution Width 15.2 % (13.2-15.2)
[2021-01-26 06:38] LABS: Hemoglobin 12.7 gm/dl (10.1-14.3)
--- NOTE | 2021-01-26 09:21 | Progress Note ---
Assessment and Plan Assessment and plan: This is a 55-year-old female with schizophrenia who presented to [facility] on 01/18 for shortness of breath, cough, subjective fever and not feeling well for the last couple days with known COVID-19 exposure. While in the emergency room patient was switched from non rebreather mask to high flow nasal cannula and his CTA chest showed no acute pulmonary embolism. Patient was admitted to the hospital service as a COVID-19 PUI with consults to CCM, infectious disease, psych. Severe COVID-19 pneumonia Acute hypoxic respiratory failure Obesity Schizophrenia Leukocytosis Hyperglycemia Schizophrenia Hypernatremia Hypercholermia -CCM, infectious disease, psychiatry consulted, appreciate recommendations -COVID-19 PCR positive -Droplet/contact isolation -Remdesivir, azithromycin, ceftriaxone, dexamethasone (twice daily dosing) -s/p Actemra -Wean supplemental oxygen as tolerated, pulmonary hygiene -Prone as tolerated -Trend COVID-19 inflammatory markers for risk stratification, CBC, CMP -SSI, Lantus -01/18 bilateral lower extremity Doppler ultrasound negative for DVT -01/17 CTA shows no evidence of pulmonary embolism, extensive bilateral pneumonia, hepatomegaly with hepatic steatosis 01/18/2021 -Acute hypoxic respiratory failure requiring high flow oxygen 40 L. Nebulizer treatment -Patient is admitted for suspected Covid pneumonia. Patient is on dexamethasone, COVID-19 test is pending. Patient is on empiric antibiotics. -ID consulted, will consult pulmonary. -Patient has hyponatremia yesterday and I will repeat and if it is low I will manage accordingly -Patient has elevated D-dimer and CTA chest and bilateral Doppler ultrasound of the lower extremities pending 01/19/2021 -Acute hypoxic respiratory failure currently on BiPAP, nebulizer treatment. I will put in orders to transfer to [facility] yesterday but there was no bed. -Patient is positive for Covid and she is on Decadron and remdesivir. Actemra was ordered on 01/19/2021 -ID evaluated the patient and recommend to continue Decadron and remdesivir, also to continue ceftriaxone and azithromycin for 5 days because of the elevated procalcitonin level. Pulmonary was consulted and recommend to continue current management and add Lasix -CTA chest was done and significant for bilateral pulmonary opacities, negative for PE, Doppler ultrasound of the lower extremities was negative for DVT. -Prognosis is guarded. -Patient is currently on BiPAP and she was agitated and trying to take off the BiPAP, I put the patient on restraints. Discussed with warehouse insulation worker to transfer the patient to IMCU and if there is no bed she need to be transferred to CCU. 01/20: Patient received 5 mg of Haldol for severe agitation and refusal to keep high flow nasal cannula in place. [facility] ordered Lasix again. Psych was consulted today. Patient was on BiPAP therapy all night and RT attempted to give her a break patient is on high flow nasal cannula however she did not keep this in place and was paced back on BiPAP after receiving Haldol. She was started on Lantus today. 01/21: Patient is on BiPAP and on time examination was on 20/10 100% FiO2. Patient was started on Lantus. Psych consult completed and started on Haldol p.o. twice daily and Mirtazepin PO daily. No acute events reported overnight. Patient's D-dimer is greater than 10,000 started on prophylactic Lovenox as recent CTA chest and bilateral lower extremity Doppler ultrasound were negative. 01/22: Patient has been taken off BiPAP therapy and placed on high flow nasal cannula. Patient has been downgraded to IMCU. Patient's hyponatremia and hypochloremia have worsened. 01/23: Patient was on BiPAP overnight with FiO2 85% and IPAP 20/EPAP 10. Patient currently with high flow nasal cannula 40 L O2 with an FiO2 of 100%. Continue remdesivir and dexamethasone. Patient is s/p Actemra on 01/20. Continue empiric antibiotics per ID recommendations. Continue anticoagulation per protocol. 01/24: Patient is tachycardic and hypertensive and [facility] has opted to add amlo dipine. Patient remains on 40 L 100% high flow nasal cannula. Continue remdesivir and dexamethasone. Patient is s/p Actemra on 01/20. Continue empiric antibiotics per ID recommendations. Continue anticoagulation per protocol. 01/25: Patient currently with high flow nasal cannula 40 L/min with FiO2 100%. Continue dexamethasone. Patient has completed remdesivir and s/p Actemra on 01/20. Continue full dose anticoagulation given high elevated D-dimer. Continue to trend inflammatory markers. Prognosis remains guarded. 01/26: Patient currently with high flow nasal cannula 35 L/min and FiO2 90%. Continue dexamethasone. Patient has completed remdesivir and s/p Actemra on 01/20. Continue full dose anticoagulation given high elevated D-dimer. Continue to trend inflammatory markers. Prognosis remains guarded. History Interval history: No new issues Hospitalist Physical - Constitutional Vitals: Temp Pulse Resp BP Pulse Ox 97.6 F 104 H 18 113/57 94 01/26/21 04:00 01/26/21 08:11 01/26/21 08:11 01/26/21 07:00 01/26/21 08:00 General appearance: Present: no acute distress, well-nourished - EENT Eyes: Present: PERRL, EOM intact ENT: hearing intact, clear oral mucosa, dentition normal - Neck Neck: Present: supple, normal ROM - Respiratory Respiratory effort: normal Respiratory: bilateral: CTA - Cardiovascular Rhythm: regular Heart Sounds: Present: S1 & S2. Absent: gallop, rub - Extremities Extremities: no ischemia, No edema, Full ROM - Abdominal General gastrointestinal: soft, non-tender, non-distended, normal bowel sounds - Integumentary Integumentary: Present: clear, warm, dry - Neurologic Neurologic: CNII-XII intact, moves all extremities HEART Score - HEART Score Troponin: Troponin T < 0.010 ng/mL (0.00-0.029) 01/17/21 16:41 Results - Labs CBC & Chem 7: 01/26/21 05:23 01/26/21 05:23 Labs: Laboratory Last Values WBC 6.1 K/mm3 (4.5-11.0) 01/26/21 05:23 RBC 5.49 M/mm3 (3.65-5.03) H 01/26/21 05:23 Hgb 12.7 gm/dl (10.1-14.3) 01/26/21 05:23 Hct 42.0 % (30.3-42.9) 01/26/21 05:23 MCV 77 fl (79-97) L 01/26/21 05:23 MCH 23 pg (28-32) L 01/26/21 05:23 MCHC 30 % (30-34) 01/26/21 05:23 RDW 15.2 % (13.2-15.2) 01/26/21 05:23 Plt Count 281 K/mm3 (140-440) 01/26/21 05:23 Lymph % (Auto) 13.8 % (13.4-35.0) 01/26/21 05:23 Spencer % (Auto) 6.4 % (0.0-7.3) 01/26/21 05:23 Eos % (Auto) 0.4 % (0.0-4.3) 01/26/21 05:23 Baso % (Auto) 0.5 % (0.0-1.8) 01/26/21 05:23 Lymph # (Auto) 0.8 K/mm3 (1.2-5.4) L 01/26/21 05:23 Spencer # (Auto) 0.4 K/mm3 (0.0-0.8) 01/26/21 05:23 Eos # (Auto) 0.0 K/mm3 (0.0-0.4) 01/26/21 05:23 Baso # (Auto) 0.0 K/mm3 (0.0-0.1) 01/26/21 05:23 Add Manual Diff Complete 01/19/21 05:11 Total Counted 100 01/19/21 05:11 Seg Neutrophils % 78.9 % (40.0-70.0) H 01/26/21 05:23 Seg Neuts % (Manual) 88.0 % (40.0-70.0) H 01/19/21 05:11 Lymphocytes % (Manual) 10.0 % (13.4-35.0) L 01/19/21 05:11 Monocytes % (Manual) 2.0 % (0.0-7.3) 01/19/21 05:11 Nucleated RBC % Not Reportable 01/19/21 05:11 Seg Neutrophils # 4.8 K/mm3 (1.8-7.7) 01/26/21 05:23 Seg Neutrophils # Man 12.5 K/mm3 (1.8-7.7) H 01/19/21 05:11 Band Neutrophils # 0.0 K/mm3 01/19/21 05:11 Lymphocytes # (Manual) 1.4 K/mm3 (1.2-5.4) 01/19/21 05:11 Abs React Lymphs (Man) 0.0 K/mm3 01/19/21 05:11 Monocytes # (Manual) 0.3 K/mm3 (0.0-0.8) 01/19/21 05:11 Eosinophils # (Manual) 0.0 K/mm3 (0.0-0.4) 01/19/21 05:11 Basophils # (Manual) 0.0 K/mm3 (0.0-0.1) 01/19/21 05:11 Metamyelocytes # 0.0 K/mm3 01/19/21 05:11 Myelocytes # 0.0 K/mm3 01/19/21 05:11 Promyelocytes # 0.0 K/mm3 01/19/21 05:11 Blast Cells # 0.0 K/mm3 01/19/21 05:11 WBC Morphology Not Reportable 01/19/21 05:11 Hypersegmented Neuts Not Reportable 01/19/21 05:11 Hyposegmented Neuts Not Reportable 01/19/21 05:11 Hypogranular Neuts Not Reportable 01/19/21 05:11 Smudge Cells Not Reportable 01/19/21 05:11 Toxic Granulation Not Reportable 01/19/21 05:11 Toxic Vacuolation Not Reportable 01/19/21 05:11 Dohle Bodies Not Reportable 01/19/21 05:11 Pelger-Huet Anomaly Not Reportable 01/19/21 05:11 Inder Rods Not Reportable 01/19/21 05:11 Platelet Estimate Consistent w auto 01/19/21 05:11 Clumped Platelets Not Reportable 01/19/21 05:11 Plt Clumps, EDTA Not Reportable 01/19/21 05:11 Large Platelets Not Reportable 01/19/21 05:11 Giant Platelets Not Reportable 01/19/21 05:11 Platelet Satelliting Not Reportable 01/19/21 05:11 Plt Morphology Comment Not Reportable 01/19/21 05:11 RBC Morphology Not Reportable 01/19/21 05:11 Dimorphic RBCs Not Reportable 01/19/21 05:11 Polychromasia Not Reportable 01/19/21 05:11 Hypochromasia 1+ 01/19/21 05:11 Poikilocytosis Not Reportable 01/19/21 05:11 Anisocytosis Not Reportable 01/19/21 05:11 Microcytosis Not Reportable 01/19/21 05:11 Macrocytosis Not Reportable 01/19/21 05:11 Spherocytes Not Reportable 01/19/21 05:11 Pappenheimer Bodies Not Reportable 01/19/21 05:11 Sickle Cells Not Reportable 01/19/21 05:11 Target Cells Not Reportable 01/19/21 05:11 Tear Drop Cells Not Reportable 01/19/21 05:11 Ovalocytes Not Reportable 01/19/21 05:11 Helmet Cells Not Reportable 01/19/21 05:11 [place] Bodies Not Reportable 01/19/21 05:11 Eidson Rings Not Reportable 01/19/21 05:11 [place] Cells Not Reportable 01/19/21 05:11 Bite Cells Not Reportable 01/19/21 05:11 Crenated Cell Not Reportable 01/19/21 05:11 Elliptocytes Not Reportable 01/19/21 05:11 Acanthocytes (Spur) Not Reportable 01/19/21 05:11 Rouleaux Not Reportable 01/19/21 05:11 Hemoglobin C Crystals Not Reportable 01/19/21 05:11 Schistocytes Not Reportable 01/19/21 05:11 Malaria parasites Not Reportable 01/19/21 05:11 Chai Bodies Not Reportable 01/19/21 05:11 Hem Pathologist Commnt No 01/19/21 05:11 D-Dimer 5809.58 ng/mlDDU (0-234) H 01/26/21 05:23 ABG pH 7.461 pH Units (7.350-7.450) H 01/18/21 17:18 ABG pCO2 36.6 mm Hg 01/18/21 17:18 ABG pO2 53.1 mm Hg (80.0-90.0) L 01/18/21 17:18 ABG HCO3 25.5 mmol/L (20.0-26.0) 01/18/21 17:18 ABG O2 Saturation 89.4 % (95.0-99.0) L 01/18/21 17:18 ABG O2 Content 15.1 (0.0-44) 01/18/21 17:18 ABG Base Excess 1.9 mmol/L (-2.0-3.0) 01/18/21 17:18 ABG Hemoglobin 12.2 gm/dl (12.0-16.0) 01/18/21 17:18 ABG Carboxyhemoglobin 1.2 % (0.0-5.0) 01/18/21 17:18 ABG Methemoglobin 0.5 % (0.0-1.5) 01/18/21 17:18 Oxyhemoglobin 88.0 % (95.0-99.0) L 01/18/21 17:18 FiO2 100 % 01/18/21 17:18 Sodium 149 mmol/L (137-145) H 01/26/21 05:23 Potassium 4.0 mmol/L (3.6-5.0) 01/26/21 05:23 Chloride 109.3 mmol/L (98-107) H 01/26/21 05:23 Carbon Dioxide 29 mmol/L (22-30) 01/26/21 05:23 Anion Gap 15 mmol/L 01/26/21 05:23 BUN 24 mg/dL (7-17) H 01/26/21 05:23 Creatinine 0.7 mg/dL (0.6-1.2) 01/26/21 05:23 Estimated GFR > 60 ml/min 01/26/21 05:23 BUN/Creatinine Ratio 34 % 01/26/21 05:23 Glucose 362 mg/dL (65-100) H 01/26/21 05:23 POC Glucose 387 mg/dL (70-105) H 01/26/21 06:06 Lactic Acid 1.70 mmol/L (0.7-2.0) 01/17/21 16:41 Calcium 8.4 mg/dL (8.4-10.2) 01/26/21 05:23 Ferritin 877.1 ng/mL (10.0-200.0) H 01/26/21 05:23 Total Bilirubin 0.30 mg/dL (0.1-1.2) 01/21/21 11:29 AST 34 units/L (5-40) 01/21/21 11:29 ALT 38 units/L (7-56) 01/21/21 11:29 Alkaline Phosphatase 117 units/L (35-129) 01/21/21 11:29 Lactate Dehydrogenase 655 units/L (91-180) H 01/26/21 05:23 Troponin T < 0.010 ng/mL (0.00-0.029) 01/17/21 16:41 C-Reactive Protein 0.80 mg/dL (0.00-1.30) 01/26/21 05:23 NT-Pro-B Natriuret Pep 40.88 pg/mL (0-900) 01/17/21 16:41 Total Protein 7.3 g/dL (6.3-8.2) 01/21/21 11:29 Albumin 3.4 g/dL (3.9-5) L 01/21/21 11:29 Albumin/Globulin Ratio 0.9 % 01/21/21 11:29 Procalcitonin 0.39 ng/mL (<0.15) 01/17/21 17:46 Coronavirus (PCR) Positive (Negative) A 01/17/21 09:25 Estrada/IV: Voiding Method External Female Catheter Active Medications - Current Medications Current Medications: Generic Name Dose Route Start Last Admin Trade Name Freq PRN Reason Stop Dose Admin Acetaminophen 650 mg 01/18/21 00:36 01/22/21 23:46 Acetaminophen 325 Mg Tab PO 650 mg Q4H PRN Administration Pain MILD(1-3)/Fever >100.5/PAN Albuterol/Ipratropium 1 ampul 01/18/21 02:00 01/26/21 08:11 Ipratropium/Albuterol Sulfate 3 Ml Ampul.Neb IH 1 ampul Q6HRT PJ Administration Amlodipine Besylate 5 mg 01/24/21 15:00 01/25/21 09:48 Amlodipine 5 Mg Tab PO 5 mg QDAY PJ Administration Dexamethasone 6 mg 01/20/21 10:00 01/25/21 23:42 Dexamethasone 4 Mg/Ml Vial IV 01/28/21 22:01 6 mg BID PJ Administration Enoxaparin Sodium 100 mg 01/21/21 10:00 01/25/21 23:43 Enoxaparin 100 Mg/1 Ml Inj 1 mg/kg (100 mg) 100 mg SUB-Q Administration Q12HR [facility] Protocol Famotidine 20 mg 01/18/21 10:00 01/25/21 23:46 Famotidine 20 Mg Tab PO 20 mg BID PJ Administration Haloperidol 1 mg 01/24/21 12:12 01/25/21 23:44 Haloperidol 1 Mg Tab PO 1 mg BID PJ Administration Hydralazine HCl 10 mg 01/18/21 00:38 01/24/21 23:12 Hydralazine 20 Mg/1 Ml Inj IV 10 mg Q6H PRN Administration htn Hydromorphone HCl 0.5 mg 01/20/21 11:00 Hydromorphone 1 Mg/1 Ml Inj IV Q6H PRN Pain , Severe (7-10) Insulin Glargine 20 units 01/20/21 22:00 01/25/21 23:45 Insulin Glargine 100 Units/Ml SUB-Q 20 units QHS PJ Administration Insulin Glargine 20 units 01/24/21 10:00 01/25/21 09:48 Insulin Glargine 100 Units/Ml SUB-Q 20 units DAILY PJ Administration Insulin Human Lispro 0 unit 01/21/21 14:00 01/26/21 06:18 Insulin Lispro 100 Unit/Ml SUB-Q 10 unit Q4HR PJ Administration Protocol Mirtazapine 7.5 mg 01/21/21 22:00 01/25/21 23:46 Mirtazapine 15 Mg Tab PO 7.5 mg QHS PJ Administration Ondansetron HCl 4 mg 01/18/21 00:36 Ondansetron 4 Mg/2 Ml Inj IV Q8H PRN Nausea And Vomiting Sodium Chloride 10 ml 01/18/21 10:00 01/25/21 23:47 Sodium Chloride 0.9% 10 Ml Flush Syringe IV 10 ml BID PJ Administration Sodium Chloride 10 ml 01/18/21 00:36 Sodium Chloride 0.9% 10 Ml Flush Syringe IV PRN PRN LINE FLUSH Ziprasidone 10 mg 01/20/21 10:57 01/21/21 21:29 Ziprasidone Mesylate 20 Mg Vial IM 10 mg Q6H PRN Administration AGITATION Nutrition/Malnutrition Assess - Dietary Evaluation Nutrition/Malnutrition Findings: Nutrition Notes Start: 01/24/21 10:40 Freq: Status: Active Protocol: Document 01/24/21 10:40 JUAN ALBERTO (Rec: 01/24/21 10:52 JUAN ALBERTO [id number]) Nutrition Notes Need for Assessment generated from: LOS Initial or Follow up Assessment Current Diagnosis Respiratory Failure Other Pertinent Diagnosis pneu, COVID-19 Current Diet Cardiac Labs/Tests Na 149 BUN 24 BG 339 Pertinent Medications Insulin Decadron Height 5 ft 4 in Weight 89 kg [place] Body Weight (kg) 54.54 BMI 33.7 Weight Status Obese Subjective/Other Information Screen for LOS. Pt did not answer phone. Per RN, pt has poor appetite but drinks well. Burn Absent Trauma Absent Current % PO Poor (25-49%) Minimum of two criteria No Energy Intake (non-severe) <75% Estimated Energy Requirement >7 days #1 Nutrition Diagnosis Inadequate oral intake Etiology acute illness As Evidenced by Signs and Symptoms pt eating <25% of meals Is patient on ventilator? No Is Patient Ambulatory and/or Out of Bed No REE-([facility]-confined to bed) 1762.308 Kcal/Kg value to use for calculation 15 Approximate Energy Requirements Using 1335 kcal/Kg Calculation Used for Recommendations Kcal/kg Additional Notes Protein: (0.8-1g/kg AdjBW: 72kg) 57-72g Fluid: 1 ml/kcal Nutrition Intervention Change Diet Order: add consistent CHO Add Supplement/Snack (indicate name/kcal Glucerna TID /protein ) Provides kCal: 660 Provides Protein (gm) 30 Goal #1 Meet at least 75% of protein and energy needs via PO and ONS intakes Anticipated Discharge Needs: Cardiac, consistent CHO Follow-Up By: 01/28/21 Additional Comments FU for intakes and ONS tolerance
[2021-01-26] MEDS: amLODIPine 5 MG TAB PO SCH (10:00)
[2021-01-26] MEDS: ENOXAPARIN 100 MG/1 ML INJ SUB-Q SCH ×2 (10:00→23:15)
[2021-01-26] MEDS: HALOPERIDOL 1 MG TAB PO SCH ×2 (10:00→23:14)
[2021-01-26] MEDS: dexAMETHasone 4 MG/ML VIAL IV SCH ×2 (10:00→23:14)
[2021-01-26] MEDS: INSULIN GLARGINE 100 UNITS/ML SUB-Q SCH ×2 (10:01→23:15)
[2021-01-26] MEDS: FAMOTIDINE 20 MG TAB PO SCH ×2 (10:02→23:14)
--- NOTE | 2021-01-26 12:06 | Progress Note ---
Assessment and Plan Cultures: COVID-19 PCR: Positive 01/17/2021 blood culture: No growth A/P: 55-year-old female past medical history schizophrenia admitted to hospital with COVID-19. #Severe COVID-19 pneumonia: Inflammatory markers elevated, improving. No evidence of pulmonary embolism on CT. s/p abx, completed remdesivir, s/p Actemra on 01/20/2021 #Acute hypoxemic respiratory failure: secondary to COVID-19 infection. On HFNC. #Obesity Recs: -Continue Decadron per pulm D7 of 10 -s/p abx, completed remdesivir, s/p Actemra on 01/20/2021 -Anticoagulation per protocol. d-dimer significantly high, agree with full dose anticoagulation -No indication for antimicrobials at this time -Monitor mentation Patient seen and examined. Jacinda Heath MD [facility] ([facility]) Office [phone] Subjective Date of service: 01/26/21 Principal diagnosis: Covid-19 Interval history: Remains on high flow nasal cannula oxygen 90%, 35 L, no fever for 24 hours. CVP. Objective - Exam Narrative Exam: General appearance: Somnolent, easily arousable, in no acute distress, on [place] Eyes: anicteric sclerae, moist conjunctivae; no lid-lag; PERRLA HENT: Normocephalic, Atraumatic; normal external ears, nares open, oropharynx limited Neck: supple, tracheal midline, no JVD Lungs: CTA, with normal respiratory effort and no intercostal retractions CV: Tachycardic Abdomen: Soft, nontender Extremities: no edema, no cyanosis Skin: No rash. Psych: Somnolent Neuro: Somnolent - Constitutional Vitals: Vital Signs Temp Pulse Resp BP Pulse Ox 98.5 F 122 H 25 H 134/54 92 01/26/21 08:00 01/26/21 10:00 01/26/21 10:00 01/26/21 10:00 01/26/21 10:00 Temperature -Last 24 Hours Temperature 98.5 F Temperature 97.6 F Temperature 98.2 F Temperature 97.7 F Temperature 98.7 F - Labs CBC & Chem 7: 01/26/21 05:23 01/26/21 05:23 Labs: Abnormal lab results 01/25/21 01/25/21 01/25/21 Range/Units 15:14 15:14 15:14 RBC (3.65-5.03) M/mm3 MCV (79-97) fl MCH (28-32) pg Lymph # (Auto) (1.2-5.4) K/mm3 Seg Neutrophils % (40.0-70.0) % D-Dimer 6312.54 H (0-234) ng/mlDDU Sodium 146 H (137-145) mmol/L Chloride 108.1 H (98-107) mmol/L BUN 19 H (7-17) mg/dL Glucose 287 H (65-100) mg/dL POC Glucose (70-105) mg/dL Calcium 8.3 L (8.4-10.2) mg/dL Ferritin 869.5 H (10.0-200.0) ng/mL Lactate Dehydrogenase 685 H (91-180) units/L 01/25/21 01/25/21 01/26/21 Range/Units 16:06 21:18 01:47 RBC (3.65-5.03) M/mm3 MCV (79-97) fl MCH (28-32) pg Lymph # (Auto) (1.2-5.4) K/mm3 Seg Neutrophils % (40.0-70.0) % D-Dimer (0-234) ng/mlDDU Sodium (137-145) mmol/L Chloride (98-107) mmol/L BUN (7-17) mg/dL Glucose (65-100) mg/dL POC Glucose 267 H 197 H 255 H (70-105) mg/dL Calcium (8.4-10.2) mg/dL Ferritin (10.0-200.0) ng/mL Lactate Dehydrogenase (91-180) units/L 01/26/21 01/26/21 01/26/21 Range/Units 05:23 05:23 05:23 RBC (3.65-5.03) M/mm3 MCV (79-97) fl MCH (28-32) pg Lymph # (Auto) (1.2-5.4) K/mm3 Seg Neutrophils % (40.0-70.0) % D-Dimer 5809.58 H (0-234) ng/mlDDU Sodium 149 H (137-145) mmol/L Chloride 109.3 H (98-107) mmol/L BUN 24 H (7-17) mg/dL Glucose 362 H (65-100) mg/dL POC Glucose (70-105) mg/dL Calcium (8.4-10.2) mg/dL Ferritin 877.1 H (10.0-200.0) ng/mL Lactate Dehydrogenase 655 H (91-180) units/L 01/26/21 01/26/21 Range/Units 05:23 06:06 RBC 5.49 H (3.65-5.03) M/mm3 MCV 77 L (79-97) fl MCH 23 L (28-32) pg Lymph # (Auto) 0.8 L (1.2-5.4) K/mm3 Seg Neutrophils % 78.9 H (40.0-70.0) % D-Dimer (0-234) ng/mlDDU Sodium (137-145) mmol/L Chloride (98-107) mmol/L BUN (7-17) mg/dL Glucose (65-100) mg/dL POC Glucose 387 H (70-105) mg/dL Calcium (8.4-10.2) mg/dL Ferritin (10.0-200.0) ng/mL Lactate Dehydrogenase (91-180) units/L
--- NOTE | 2021-01-26 15:48 | Progress Note ---
Assessment and Plan Assessment and Plan Imp: 1. Covid-19 w/ viral pneumonia 2. ARDS 3. Acute resp. failure, hypoxia 4. Hypernatremia 5. Obesity 6. Hypertension Rec: 1. Decadaron IV 2. Remdesivir x 5 days 3. Agree with therapeutic Lovenox 4. Unable to prone due to lack of cooperation and need for restraints 5. Monitor inflammatory markers 6. Encourage free water intake; repeat labs in AM 7. Wean HFNC to keep sats 88% or > 8. Add amlodipine orally for blood pressure Subjective Date of service: 01/26/21 Principal diagnosis: Covid-19 Interval history: Patient much more awake and alert. Blood pressure is running high. Currently o n hydralazine on as needed basis. Remains on high flow nasal cannula with 40 L nasal correction O2 flow 100% FiO2 with sats in high 80's while sleeping Objective Vital Signs - 12hr 01/26/21 01/26/21 01/26/21 04:00 04:05 05:00 Temperature 97.6 F Pulse Rate 106 H 105 H 125 H Pulse Rate [ Anterior Bilateral Throughout] Pulse Rate [ 108 H From Monitor] Respiratory 21 20 15 Rate Respiratory Rate [Anterior Bilateral Throughout] Blood Pressure 136/72 130/67 140/71 O2 Sat by Pulse 95 96 72 L Oximetry 01/26/21 01/26/21 01/26/21 06:00 07:00 07:49 Temperature Pulse Rate 113 H 105 H 101 H Pulse Rate [ Anterior Bilateral Throughout] Pulse Rate [ 108 H From Monitor] Respiratory 26 H 21 22 Rate Respiratory Rate [Anterior Bilateral Throughout] Blood Pressure 139/53 113/57 O2 Sat by Pulse 91 87 95 Oximetry 01/26/21 01/26/21 01/26/21 08:00 08:11 09:00 Temperature 98.5 F Pulse Rate 98 H 102 H Pulse Rate [ 104 H Anterior Bilateral Throughout] Pulse Rate [ From Monitor] Respiratory 17 14 Rate Respiratory 18 Rate [Anterior Bilateral Throughout] Blood Pressure 117/66 138/79 O2 Sat by Pulse 91 91 Oximetry 01/26/21 01/26/21 01/26/21 10:00 11:00 12:00 Temperature 98.6 F Pulse Rate 122 H 96 H 99 H Pulse Rate [ Anterior Bilateral Throughout] Pulse Rate [ 108 H From Monitor] Respiratory 25 H 22 15 Rate Respiratory Rate [Anterior Bilateral Throughout] Blood Pressure 134/54 128/68 135/66 O2 Sat by Pulse 92 90 84 Oximetry 01/26/21 01/26/21 01/26/21 12:09 13:00 14:00 Temperature Pulse Rate 92 H 102 H Pulse Rate [ 93 H Anterior Bilateral Throughout] Pulse Rate [ From Monitor] Respiratory 20 20 Rate Respiratory 21 Rate [Anterior Bilateral Throughout] Blood Pressure 133/66 136/67 O2 Sat by Pulse 93 94 95 Oximetry 01/26/21 01/26/21 15:00 15:45 Temperature Pulse Rate 104 H 101 H Pulse Rate [ Anterior Bilateral Throughout] Pulse Rate [ 108 H From Monitor] Respiratory 19 22 Rate Respiratory Rate [Anterior Bilateral Throughout] Blood Pressure 144/72 O2 Sat by Pulse 92 95 Oximetry Constitutional: alert, other (critically ill on HFNC 100% FiO2) Eyes: non-icteric ENT: oropharynx moist Neck: supple, other (large in circumference) Effort: mildly labored Ascultation: Bilateral: clear Cardiovascular: other (tachy, RR; no mrg) Gastrointestinal: normoactive bowel sounds, soft, non-tender, non-distended Integumentary: normal Extremities: no cyanosis, no edema, pink and warm Neurologic: normal mental status, non-focal exam, pupils equal and round Psychiatric: mood appropriate, affect normal CBC and BMP: 01/26/21 05:23 01/26/21 05:23 ABG, PT/INR, D-dimer: ABG ABG pH 7.461 pH Units (7.350-7.450) H 01/18/21 17:18 ABG pCO2 36.6 mm Hg 01/18/21 17:18 ABG pO2 53.1 mm Hg (80.0-90.0) L 01/18/21 17:18 ABG O2 Saturation 89.4 % (95.0-99.0) L 01/18/21 17:18 PT/INR, D-dimer D-Dimer 5809.58 ng/mlDDU (0-234) H 01/26/21 05:23 Abnormal lab findings: Abnormal Labs 01/17/21 01/17/21 01/17/21 09:25 16:41 16:41 WBC RBC 5.23 H MCV 76 L MCH 24 L RDW Lymph % (Auto) 9.4 L Lymph # (Auto) 0.8 L Seg Neutrophils % 85.4 H Seg Neuts % (Manual) Lymphocytes % (Manual) Seg Neutrophils # Man D-Dimer ABG pH ABG pO2 ABG O2 Saturation Oxyhemoglobin Sodium 128 L Chloride 90.8 L Carbon Dioxide BUN Glucose 372 H POC Glucose Calcium Ferritin AST 98 H Lactate Dehydrogenase C-Reactive Protein Total Protein Albumin 3.2 L Coronavirus (PCR) Positive A 01/17/21 01/17/21 01/17/21 17:46 17:46 17:46 WBC RBC MCV MCH RDW Lymph % (Auto) Lymph # (Auto) Seg Neutrophils % Seg Neuts % (Manual) Lymphocytes % (Manual) Seg Neutrophils # Man D-Dimer 1058.54 H ABG pH ABG pO2 ABG O2 Saturation Oxyhemoglobin Sodium Chloride Carbon Dioxide BUN Glucose 369 H POC Glucose Calcium Ferritin 668.4 H AST Lactate Dehydrogenase 519 H C-Reactive Protein 19.20 H Total Protein Albumin Coronavirus (PCR) 01/18/21 01/18/21 01/19/21 09:01 17:18 05:11 WBC 14.2 H RBC MCV 74 L MCH 23 L RDW Lymph % (Auto) Lymph # (Auto) Seg Neutrophils % Seg Neuts % (Manual) 88.0 H Lymphocytes % (Manual) 10.0 L Seg Neutrophils # Man 12.5 H D-Dimer ABG pH 7.461 H ABG pO2 53.1 L ABG O2 Saturation 89.4 L Oxyhemoglobin 88.0 L Sodium 132 L Chloride 93.6 L Carbon Dioxide BUN 18 H Glucose 367 H POC Glucose Calcium 7.8 L Ferritin AST Lactate Dehydrogenase C-Reactive Protein Total Protein Albumin Coronavirus (PCR) 01/19/21 01/19/21 01/19/21 05:11 11:06 14:43 WBC RBC MCV MCH RDW Lymph % (Auto) Lymph # (Auto) Seg Neutrophils % Seg Neuts % (Manual) Lymphocytes % (Manual) Seg Neutrophils # Man D-Dimer ABG pH ABG pO2 ABG O2 Saturation Oxyhemoglobin Sodium Chloride Carbon Dioxide BUN 18 H Glucose 304 H 379 H POC Glucose 382 H Calcium 8.3 L Ferritin AST 92 H 96 H Lactate Dehydrogenase C-Reactive Protein Total Protein Albumin 3.0 L 3.0 L Coronavirus (PCR) 01/19/21 01/19/21 01/20/21 16:18 22:18 07:31 WBC RBC MCV MCH RDW Lymph % (Auto) Lymph # (Auto) Seg Neutrophils % Seg Neuts % (Manual) Lymphocytes % (Manual) Seg Neutrophils # Man D-Dimer ABG pH ABG pO2 ABG O2 Saturation Oxyhemoglobin Sodium Chloride Carbon Dioxide BUN Glucose POC Glucose 374 H 341 H 344 H Calcium Ferritin AST Lactate Dehydrogenase C-Reactive Protein Total Protein Albumin Coronavirus (PCR) 01/20/21 01/20/21 01/20/21 07:33 12:14 13:54 WBC RBC MCV MCH RDW Lymph % (Auto) Lymph # (Auto) Seg Neutrophils % Seg Neuts % (Manual) Lymphocytes % (Manual) Seg Neutrophils # Man D-Dimer ABG pH ABG pO2 ABG O2 Saturation Oxyhemoglobin Sodium Chloride Carbon Dioxide BUN 32 H 31 H Glucose 343 H 396 H POC Glucose 365 H Calcium Ferritin AST 57 H 54 H Lactate Dehydrogenase C-Reactive Protein Total Protein 8.3 H Albumin 2.7 L 3.1 L Coronavirus (PCR) 01/20/21 01/20/21 01/21/21 18:28 21:25 04:45 WBC RBC MCV MCH RDW Lymph % (Auto) Lymph # (Auto) Seg Neutrophils % Seg Neuts % (Manual) Lymphocytes % (Manual) Seg Neutrophils # Han D-Dimer ABG pH ABG pO2 ABG O2 Saturation Oxyhemoglobin Sodium Chloride Carbon Dioxide 31 H BUN 41 H Glucose 377 H POC Glucose 403 H 340 H Calcium Ferritin AST Lactate Dehydrogenase C-Reactive Protein Total Protein 8.3 H Albumin 3.0 L Coronavirus (PCR) 01/21/21 01/21/21 01/21/21 04:45 04:45 04:45 WBC RBC MCV MCH RDW Lymph % (Auto) Lymph # (Auto) Seg Neutrophils % Seg Neuts % (Manual) Lymphocytes % (Manual) Seg Neutrophils # Han D-Dimer > 41388 H ABG pH ABG pO2 ABG O2 Saturation Oxyhemoglobin Sodium Chloride Carbon Dioxide BUN Glucose POC Glucose Calcium Ferritin 1688.0 H AST Lactate Dehydrogenase 649 H C-Reactive Protein 17.00 H Total Protein Albumin Coronavirus (PCR) 01/21/21 01/21/21 01/21/21 09:45 11:29 12:09 WBC RBC MCV MCH RDW Lymph % (Auto) Lymph # (Auto) Seg Neutrophils % Seg Neuts % (Manual) Lymphocytes % (Manual) Seg Neutrophils # Man D-Dimer ABG pH ABG pO2 ABG O2 Saturation Oxyhemoglobin Sodium 151 H Chloride Carbon Dioxide BUN 40 H Glucose 412 H POC Glucose 401 H 372 H Calcium Ferritin AST Lactate Dehydrogenase C-Reactive Protein Total Protein Albumin 3.4 L Coronavirus (PCR) 01/21/21 01/21/21 01/22/21 18:26 21:09 02:00 WBC RBC MCV MCH RDW Lymph % (Auto) Lymph # (Auto) Seg Neutrophils % Seg Neuts % (Manual) Lymphocytes % (Manual) Seg Neutrophils # Man D-Dimer ABG pH ABG pO2 ABG O2 Saturation Oxyhemoglobin Sodium Chloride Carbon Dioxide BUN Glucose POC Glucose 376 H 322 H 231 H Calcium Ferritin AST Lactate Dehydrogenase C-Reactive Protein Total Protein Albumin Coronavirus (PCR) 01/22/21 01/22/21 01/22/21 05:24 08:25 08:25 WBC RBC 5.44 H MCV 75 L MCH 23 L RDW 15.5 H Lymph % (Auto) Lymph # (Auto) Seg Neutrophils % Seg Neuts % (Manual) Lymphocytes % (Manual) Seg Neutrophils # Man D-Dimer ABG pH ABG pO2 ABG O2 Saturation Oxyhemoglobin Sodium 155 H Chloride 112.4 H Carbon Dioxide BUN 33 H Glucose 274 H POC Glucose 275 H Calcium Ferritin AST Lactate Dehydrogenase C-Reactive Protein Total Protein Albumin Coronavirus (PCR) 01/22/21 01/22/21 01/22/21 11:53 16:03 21:41 WBC RBC MCV MCH RDW Lymph % (Auto) Lymph # (Auto) Seg Neutrophils % Seg Neuts % (Manual) Lymphocytes % (Manual) Seg Neutrophils # Man D-Dimer ABG pH ABG pO2 ABG O2 Saturation Oxyhemoglobin Sodium Chloride Carbon Dioxide BUN Glucose POC Glucose 265 H 293 H 279 H Calcium Ferritin AST Lactate Dehydrogenase C-Reactive Protein Total Protein Albumin Coronavirus (PCR) 01/23/21 01/23/21 01/23/21 02:03 05:46 05:59 WBC RBC MCV MCH RDW Lymph % (Auto) Lymph # (Auto) Seg Neutrophils % Seg Neuts % (Manual) Lymphocytes % (Manual) Seg Neutrophils # Man D-Dimer ABG pH ABG pO2 ABG O2 Saturation Oxyhemoglobin Sodium Chloride Carbon Dioxide BUN Glucose POC Glucose 268 H 303 H Calcium Ferritin 1116.0 H AST Lactate Dehydrogenase C-Reactive Protein Total Protein Albumin Coronavirus (PCR) 01/23/21 01/23/2101/23/21 05:59 07:42 09:11 WBC RBC MCV MCH RDW Lymph % (Auto) Lymph # (Auto) Seg Neutrophils % Seg Neuts % (Manual) Lymphocytes % (Manual) Seg Neutrophils # Man D-Dimer ABG pH ABG pO2 ABG O2 Saturation Oxyhemoglobin Sodium Chloride Carbon Dioxide BUN Glucose POC Glucose 291 H 285 H Calcium Ferritin AST Lactate Dehydrogenase 680 H C-Reactive Protein 5.80 H Total Protein Albumin Coronavirus (PCR) 01/23/21 01/23/21 01/23/21 14:06 17:05 17:59 WBC RBC MCV MCH RDW Lymph % (Auto) Lymph # (Auto) Seg Neutrophils % Seg Neuts % (Manual) Lymphocytes % (Manual) Seg Neutrophils # Man D-Dimer ABG pH ABG pO2 ABG O2 Saturation Oxyhemoglobin Sodium Chloride Carbon Dioxide BUN Glucose POC Glucose 228 H 300 H 278 H Calcium Ferritin AST Lactate Dehydrogenase C-Reactive Protein Total Protein Albumin Coronavirus (PCR) 01/23/21 01/24/21 01/24/21 21:43 02:14 05:15 WBC RBC MCV MCH RDW Lymph % (Auto) Lymph # (Auto) Seg Neutrophils % Seg Neuts % (Manual) Lymphocytes % (Manual) Seg Neutrophils # Man D-Dimer ABG pH ABG pO2 ABG O2 Saturation Oxyhemoglobin Sodium Chloride Carbon Dioxide BUN Glucose POC Glucose 223 H 427 H 392 H Calcium Ferritin AST Lactate Dehydrogenase C-Reactive Protein Total Protein Albumin Coronavirus (PCR) 01/24/21 01/24/21 01/24/21 07:03 07:03 09:10 WBC RBC 5.49 H MCV 75 L MCH 23 L RDW Lymph % (Auto) 7.0 L Lymph # (Auto) 0.5 L Seg Neutrophils % 86.1 H Seg Neuts % (Manual) Lymphocytes % (Manual) Seg Neutrophils # Man D-Dimer ABG pH ABG pO2 ABG O2 Saturation Oxyhemoglobin Sodium 149 H Chloride 111.4 H Carbon Dioxide BUN 24 H Glucose 339 H POC Glucose 284 H Calcium Ferritin AST Lactate Dehydrogenase C-Reactive Protein Total Protein Albumin Coronavirus (PCR) 01/24/21 01/24/21 01/24/21 13:47 18:30 21:58 WBC RBC MCV MCH RDW Lymph % (Auto) Lymph # (Auto) Seg Neutrophils % Seg Neuts % (Manual) Lymphocytes % (Manual) Seg Neutrophils # Man D-Dimer ABG pH ABG pO2 ABG O2 Saturation Oxyhemoglobin Sodium Chloride Carbon Dioxide BUN Glucose POC Glucose 317 H 180 H 262 H Calcium Ferritin AST Lactate Dehydrogenase C-Reactive Protein Total Protein Albumin Coronavirus (PCR) 01/25/21 01/25/21 01/25/21 01:22 05:35 08:36 WBC RBC MCV MCH RDW Lymph % (Auto) Lymph # (Auto) Seg Neutrophils % Seg Neuts % (Manual) Lymphocytes % (Manual) Seg Neutrophils # Man D-Dimer ABG pH ABG pO2 ABG O2 Saturation Oxyhemoglobin Sodium Chloride Carbon Dioxide BUN Glucose POC Glucose 280 H 243 H 216 H Calcium Ferritin AST Lactate Dehydrogenase C-Reactive Protein Total Protein Albumin Coronavirus (PCR) 01/25/21 01/25/21 01/25/21 15:14 15:14 15:14 WBC RBC MCV MCH RDW Lymph % (Auto) Lymph # (Auto) Seg Neutrophils % Seg Neuts % (Manual) Lymphocytes % (Manual) Seg Neutrophils # Han D-Dimer 6312.54 H ABG pH ABG pO2 ABG O2 Saturation Oxyhemoglobin Sodium 146 H Chloride 108.1 H Carbon Dioxide BUN 19 H Glucose 287 H POC Glucose Calcium 8.3 L Ferritin 869.5 H AST Lactate Dehydrogenase 685 H C-Reactive Protein Total Protein Albumin Coronavirus (PCR) 01/25/21 01/25/21 01/26/21 16:06 21:18 01:47 WBC RBC MCV MCH RDW Lymph % (Auto) Lymph # (Auto) Seg Neutrophils % Seg Neuts % (Manual) Lymphocytes % (Manual) Seg Neutrophils # Han D-Dimer ABG pH ABG pO2 ABG O2 Saturation Oxyhemoglobin Sodium Chloride Carbon Dioxide BUN Glucose POC Glucose 267 H 197 H 255 H Calcium Ferritin AST Lactate Dehydrogenase C-Reactive Protein Total Protein Albumin Coronavirus (PCR) 01/26/21 01/26/21 01/26/21 05:23 05:23 05:23 WBC RBC MCV MCH RDW Lymph % (Auto) Lymph # (Auto) Seg Neutrophils % Seg Neuts % (Manual) Lymphocytes % (Manual) Seg Neutrophils # Man D-Dimer 5809.58 H ABG pH ABG pO2 ABG O2 Saturation Oxyhemoglobin Sodium 149 H Chloride 109.3 H Carbon Dioxide BUN 24 H Glucose 362 H POC Glucose Calcium Ferritin 877.1 H AST Lactate Dehydrogenase 655 H C-Reactive Protein Total Protein Albumin Coronavirus (PCR) 01/26/21 01/26/21 05:23 06:06 WBC RBC 5.49 H MCV 77 L MCH 23 L RDW Lymph % (Auto) Lymph # (Auto) 0.8 L Seg Neutrophils % 78.9 H Seg Neuts % (Manual) Lymphocytes % (Manual) Seg Neutrophils # Man D-Dimer ABG pH ABG pO2 ABG O2 Saturation Oxyhemoglobin Sodium Chloride Carbon Dioxide BUN Glucose POC Glucose 387 H Calcium Ferritin AST Lactate Dehydrogenase C-Reactive Protein Total Protein Albumin Coronavirus (PCR)
[2021-01-26] MEDS: MIRTAZAPINE 15 MG TAB PO SCH (23:15)
[2021-01-27] MEDS: IPRATROPIUM/ALBUTEROL SULFATE 3 ML AMPUL.NEB IH SCH ×4 (02:56→21:57)
[2021-01-27] MEDS: INSULIN LISPRO 100 UNIT/ML SUB-Q SCH ×6 (02:58→23:22)
[2021-01-27 05:17] LABS: Basophils % (Auto) 0.2 % (0.0-1.8); Eosinophils % (Auto) 0.5 % (0.0-4.3); Lymphocytes # (Auto) 0.9 K/mm3 (1.2-5.4); Lymphocytes % (Auto) 12.7 % (13.4-35.0); Mean Corpuscular HGB Conc 30 % (30-34); Mean Corpuscular Volume 76 fl (79-97); Monocytes # (Auto) 0.4 K/mm3 (0.0-0.8); Monocytes % (Auto) 5.3 % (0.0-7.3); Platelet Count 227 K/mm3 (140-440); Red Blood Count 5.15 M/mm3 (3.65-5.03); Red Cell Distribution Width 15.5 % (13.2-15.2)
[2021-01-27 05:28] LABS: Hematocrit 39.1 % (30.3-42.9); Hemoglobin 11.9 gm/dl (10.1-14.3)
[2021-01-27 05:36] LABS: Blood Urea Nitrogen 30 mg/dL (7-17); Calcium 8.4 mg/dL (8.4-10.2); Hemolysis Index 7
[2021-01-27 05:37] LABS: BUN/Creatinine Ratio 43
--- NOTE | 2021-01-27 08:35 | Progress Note ---
Assessment and Plan Assessment and plan: This is a 55-year-old female with schizophrenia who presented to [facility] on 01/18 for shortness of breath, cough, subjective fever and not feeling well for the last couple days with known COVID-19 exposure. While in the emergency room patient was switched from non rebreather mask to high flow nasal cannula and his CTA chest showed no acute pulmonary embolism. Patient was admitted to the hospital service as a COVID-19 PUI with consults to CCM, infectious disease, psych. Severe COVID-19 pneumonia Acute hypoxic respiratory failure Obesity Schizophrenia Leukocytosis Hyperglycemia Schizophrenia Hypernatremia Hypercholermia -CCM, infectious disease, psychiatry consulted, appreciate recommendations -COVID-19 PCR positive -Droplet/contact isolation -Remdesivir, azithromycin, ceftriaxone, dexamethasone (twice daily dosing) -s/p Actemra -Wean supplemental oxygen as tolerated, pulmonary hygiene -Prone as tolerated -Trend COVID-19 inflammatory markers for risk stratification, CBC, CMP -SSI, Lantus -01/18 bilateral lower extremity Doppler ultrasound negative for DVT -01/17 CTA shows no evidence of pulmonary embolism, extensive bilateral pneumonia, hepatomegaly with hepatic steatosis 01/18/2021 -Acute hypoxic respiratory failure requiring high flow oxygen 40 L. Nebulizer treatment -Patient is admitted for suspected Covid pneumonia. Patient is on dexamethasone, COVID-19 test is pending. Patient is on empiric antibiotics. -ID consulted, will consult pulmonary. -Patient has hyponatremia yesterday and I will repeat and if it is low I will manage accordingly -Patient has elevated D-dimer and CTA chest and bilateral Doppler ultrasound of the lower extremities pending 01/19/2021 -Acute hypoxic respiratory failure currently on BiPAP, nebulizer treatment. I will put in orders to transfer to [facility] yesterday but there was no bed. -Patient is positive for Covid and she is on Decadron and remdesivir. Actemra was ordered on 01/19/2021 -ID evaluated the patient and recommend to continue Decadron and remdesivir, also to continue ceftriaxone and azithromycin for 5 days because of the elevated procalcitonin level. Pulmonary was consulted and recommend to continue current management and add Lasix -CTA chest was done and significant for bilateral pulmonary opacities, negative for PE, Doppler ultrasound of the lower extremities was negative for DVT. -Prognosis is guarded. -Patient is currently on BiPAP and she was agitated and trying to take off the BiPAP, I put the patient on restraints. Discussed with fish house worker to transfer the patient to IMCU and if there is no bed she need to be transferred to CCU. 01/20: Patient received 5 mg of Haldol for severe agitation and refusal to keep high flow nasal cannula in place. [facility] ordered Lasix again. Psych was consulted today. Patient was on BiPAP therapy all night and RT attempted to give her a break patient is on high flow nasal cannula however she did not keep this in place and was paced back on BiPAP after receiving Haldol. She was started on Lantus today. 01/21: Patient is on BiPAP and on time examination was on 20/10 100% FiO2. Patient was started on Lantus. Psych consult completed and started on Haldol p.o. twice daily and Mirtazepin PO daily. No acute events reported overnight. Patient's D-dimer is greater than 10,000 started on prophylactic Lovenox as recent CTA chest and bilateral lower extremity Doppler ultrasound were negative. 01/22: Patient has been taken off BiPAP therapy and placed on high flow nasal cannula. Patient has been downgraded to IMCU. Patient's hyponatremia and hypochloremia have worsened. 01/23: Patient was on BiPAP overnight with FiO2 85% and IPAP 20/EPAP 10. Patient currently with high flow nasal cannula 40 L O2 with an FiO2 of 100%. Continue remdesivir and dexamethasone. Patient is s/p Actemra on 01/20. Continue empiric antibiotics per ID recommendations. Continue anticoagulation per protocol. 01/24: Patient is tachycardic and hypertensive and [facility] has opted to add amlo dipine. Patient remains on 40 L 100% high flow nasal cannula. Continue remdesivir and dexamethasone. Patient is s/p Actemra on 01/20. Continue empiric antibiotics per ID recommendations. Continue anticoagulation per protocol. 01/25: Patient currently with high flow nasal cannula 40 L/min with FiO2 100%. Continue dexamethasone. Patient has completed remdesivir and s/p Actemra on 01/20. Continue full dose anticoagulation given high elevated D-dimer. Continue to trend inflammatory markers. Prognosis remains guarded. 01/26: Patient currently with high flow nasal cannula 35 L/min and FiO2 90%. Continue dexamethasone. Patient has completed remdesivir and s/p Actemra on 01/20. Continue full dose anticoagulation given high elevated D-dimer. Continue to trend inflammatory markers. Prognosis remains guarded. 01/27: Patient currently with high flow nasal cannula/Vapotherm 35 L/min O2 with F iO2 90%. Patient has completed remdesivir and s/p Actemra on 01/20. Continue full dose anticoagulation given high elevated D-dimer. Continue to trend inflammatory markers. Prognosis remains guarded. History Interval history: No new issues Hospitalist Physical - Constitutional Vitals: Temp Pulse Resp BP Pulse Ox 97.8 F 97 H 19 153/68 90 01/27/21 04:00 01/27/21 08:00 01/27/21 08:00 01/27/21 08:00 01/27/21 08:00 General appearance: Present: no acute distress, well-nourished - EENT Eyes: Present: PERRL, EOM intact ENT: hearing intact, clear oral mucosa, dentition normal - Neck Neck: Present: supple, normal ROM - Respiratory Respiratory effort: normal Respiratory: bilateral: CTA - Cardiovascular Rhythm: regular Heart Sounds: Present: S1 & S2. Absent: gallop, rub - Extremities Extremities: no ischemia, No edema, Full ROM - Abdominal General gastrointestinal: soft, non-tender, non-distended, normal bowel sounds - Integumentary Integumentary: Present: clear, warm, dry - Neurologic Neurologic: CNII-XII intact, moves all extremities HEART Score - HEART Score Troponin: Troponin T < 0.010 ng/mL (0.00-0.029) 01/17/21 16:41 Results - Labs CBC & Chem 7: 01/27/21 04:22 01/27/21 04:22 Labs: Laboratory Last Values WBC 6.9 K/mm3 (4.5-11.0) 01/27/21 04:22 RBC 5.15 M/mm3 (3.65-5.03) H 01/27/21 04:22 Hgb 11.9 gm/dl (10.1-14.3) 01/27/21 04:22 Hct 39.1 % (30.3-42.9) 01/27/21 04:22 MCV 76 fl (79-97) L 01/27/21 04:22 MCH 23 pg (28-32) L 01/27/21 04:22 MCHC 30 % (30-34) 01/27/21 04:22 RDW 15.5 % (13.2-15.2) H 01/27/21 04:22 Plt Count 227 K/mm3 (140-440) 01/27/21 04:22 Lymph % (Auto) 12.7 % (13.4-35.0) L 01/27/21 04:22 [place] % (Auto) 5.3 % (0.0-7.3) 01/27/21 04:22 Eos % (Auto) 0.5 % (0.0-4.3) 01/27/21 04:22 Baso % (Auto) 0.2 % (0.0-1.8) 01/27/21 04:22 Lymph # (Auto) 0.9 K/mm3 (1.2-5.4) L 01/27/21 04:22 [place] # (Auto) 0.4 K/mm3 (0.0-0.8) 01/27/21 04:22 Eos # (Auto) 0.0 K/mm3 (0.0-0.4) 01/27/21 04:22 Baso # (Auto) 0.0 K/mm3 (0.0-0.1) 01/27/21 04:22 Add Manual Diff Complete 01/19/21 05:11 Total Counted 100 01/19/21 05:11 Seg Neutrophils % 81.3 % (40.0-70.0) H 01/27/21 04:22 Seg Neuts % (Manual) 88.0 % (40.0-70.0) H 01/19/21 05:11 Lymphocytes % (Manual) 10.0 % (13.4-35.0) L 01/19/21 05:11 Monocytes % (Manual) 2.0 % (0.0-7.3) 01/19/21 05:11 Nucleated RBC % Not Reportable 01/19/21 05:11 Seg Neutrophils # 5.6 K/mm3 (1.8-7.7) 01/27/21 04:22 Seg Neutrophils # Man 12.5 K/mm3 (1.8-7.7) H 01/19/21 05:11 Band Neutrophils # 0.0 K/mm3 01/19/21 05:11 Lymphocytes # (Manual) 1.4 K/mm3 (1.2-5.4) 01/19/21 05:11 Abs React Lymphs (Man) 0.0 K/mm3 01/19/21 05:11 Monocytes # (Manual) 0.3 K/mm3 (0.0-0.8) 01/19/21 05:11 Eosinophils # (Manual) 0.0 K/mm3 (0.0-0.4) 01/19/21 05:11 Basophils # (Manual) 0.0 K/mm3 (0.0-0.1) 01/19/21 05:11 Metamyelocytes # 0.0 K/mm3 01/19/21 05:11 Myelocytes # 0.0 K/mm3 01/19/21 05:11 Promyelocytes # 0.0 K/mm3 01/19/21 05:11 Blast Cells # 0.0 K/mm3 01/19/21 05:11 WBC Morphology Not Reportable 01/19/21 05:11 Hypersegmented Neuts Not Reportable 01/19/21 05:11 Hyposegmented Neuts Not Reportable 01/19/21 05:11 Hypogranular Neuts Not Reportable 01/19/21 05:11 Smudge Cells Not Reportable 01/19/21 05:11 Toxic Granulation Not Reportable 01/19/21 05:11 Toxic Vacuolation Not Reportable 01/19/21 05:11 Dohle Bodies Not Reportable 01/19/21 05:11 Pelger-Huet Anomaly Not Reportable 01/19/21 05:11 Inder Rods Not Reportable 01/19/21 05:11 Platelet Estimate Consistent w auto 01/19/21 05:11 Clumped Platelets Not Reportable 01/19/21 05:11 Plt Clumps, EDTA Not Reportable 01/19/21 05:11 Large Platelets Not Reportable 01/19/21 05:11 Giant Platelets Not Reportable 01/19/21 05:11 Platelet Satelliting Not Reportable 01/19/21 05:11 Plt Morphology Comment Not Reportable 01/19/21 05:11 RBC Morphology Not Reportable 01/19/21 05:11 Dimorphic RBCs Not Reportable 01/19/21 05:11 Polychromasia Not Reportable 01/19/21 05:11 Hypochromasia 1+ 01/19/21 05:11 Poikilocytosis Not Reportable 01/19/21 05:11 Anisocytosis Not Reportable 01/19/21 05:11 Microcytosis Not Reportable 01/19/21 05:11 Macrocytosis Not Reportable 01/19/21 05:11 Spherocytes Not Reportable 01/19/21 05:11 Pappenheimer Bodies Not Reportable 01/19/21 05:11 Sickle Cells Not Reportable 01/19/21 05:11 Target Cells Not Reportable 01/19/21 05:11 Tear Drop Cells Not Reportable 01/19/21 05:11 Ovalocytes Not Reportable 01/19/21 05:11 Helmet Cells Not Reportable 01/19/21 05:11 [place] Bodies Not Reportable 01/19/21 05:11 [place] Rings Not Reportable 01/19/21 05:11 Giorgio Cells Not Reportable 01/19/21 05:11 Bite Cells Not Reportable 01/19/21 05:11 Crenated Cell Not Reportable 01/19/21 05:11 Elliptocytes Not Reportable 01/19/21 05:11 Acanthocytes (Spur) Not Reportable 01/19/21 05:11 Rouleaux Not Reportable 01/19/21 05:11 Hemoglobin C Crystals Not Reportable 01/19/21 05:11 Schistocytes Not Reportable 01/19/21 05:11 Malaria parasites Not Reportable 01/19/21 05:11 Chai Bodies Not Reportable 01/19/21 05:11 Hem Pathologist Commnt No 01/19/21 05:11 D-Dimer 4046.06 ng/mlDDU (0-234) H 01/27/21 04:22 ABG pH 7.461 pH Units (7.350-7.450) H 01/18/21 17:18 ABG pCO2 36.6 mm Hg 01/18/21 17:18 ABG pO2 53.1 mm Hg (80.0-90.0) L 01/18/21 17:18 ABG HCO3 25.5 mmol/L (20.0-26.0) 01/18/21 17:18 ABG O2 Saturation 89.4 % (95.0-99.0) L 01/18/21 17:18 ABG O2 Content 15.1 (0.0-44) 01/18/21 17:18 ABG Base Excess 1.9 mmol/L (-2.0-3.0) 01/18/21 17:18 ABG Hemoglobin 12.2 gm/dl (12.0-16.0) 01/18/21 17:18 ABG Carboxyhemoglobin 1.2 % (0.0-5.0) 01/18/21 17:18 ABG Methemoglobin 0.5 % (0.0-1.5) 01/18/21 17:18 Oxyhemoglobin 88.0 % (95.0-99.0) L 01/18/21 17:18 FiO2 100 % 01/18/21 17:18 Sodium 145 mmol/L (137-145) 01/27/21 04:22 Potassium 4.4 mmol/L (3.6-5.0) 01/27/21 04:22 Chloride 107.7 mmol/L (98-107) H 01/27/21 04:22 Carbon Dioxide 27 mmol/L (22-30) 01/27/21 04:22 Anion Gap 15 mmol/L 01/27/21 04:22 BUN 30 mg/dL (7-17) H 01/27/21 04:22 Creatinine 0.7 mg/dL (0.6-1.2) 01/27/21 04:22 Estimated GFR > 60 ml/min 01/27/21 04:22 BUN/Creatinine Ratio 43 % 01/27/21 04:22 Glucose 281 mg/dL (65-100) H 01/27/21 04:22 POC Glucose 275 mg/dL (70-105) H 01/27/21 05:55 Lactic Acid 1.70 mmol/L (0.7-2.0) 01/17/21 16:41 Calcium 8.4 mg/dL (8.4-10.2) 01/27/21 04:22 Ferritin 812.2 ng/mL (10.0-200.0) H 01/27/21 04:22 Total Bilirubin 0.30 mg/dL (0.1-1.2) 01/21/21 11:29 AST 34 units/L (5-40) 01/21/21 11:29 ALT 38 units/L (7-56) 01/21/21 11:29 Alkaline Phosphatase 117 units/L (35-129) 01/21/21 11:29 Lactate Dehydrogenase 570 units/L (91-180) H 01/27/21 04:22 Troponin T < 0.010 ng/mL (0.00-0.029) 01/17/21 16:41 C-Reactive Protein 0.50 mg/dL (0.00-1.30) 01/27/21 04:22 NT-Pro-B Natriuret Pep 40.88 pg/mL (0-900) 01/17/21 16:41 Total Protein 7.3 g/dL (6.3-8.2) 01/21/21 11:29 Albumin 3.4 g/dL (3.9-5) L 01/21/21 11:29 Albumin/Globulin Ratio 0.9 % 01/21/21 11:29 Procalcitonin 0.39 ng/mL (<0.15) 01/17/21 17:46 Coronavirus (PCR) Positive (Negative) A 01/17/21 09:25 Estrada/IV: Voiding Method External Female Catheter Active Medications - Current Medications Current Medications: Generic Name Dose Route Start Last Admin Trade Name Freq PRN Reason Stop Dose Admin Acetaminophen 650 mg 01/18/21 00:36 01/22/21 23:46 Acetaminophen 325 Mg Tab PO 650 mg Q4H PRN Administration Pain MILD(1-3)/Fever >100.5/PAN Albuterol/Ipratropium 1 ampul 01/18/21 02:00 01/27/21 07:18 Ipratropium/Albuterol Sulfate 3 Ml Ampul.Neb IH Not Given Q6HRT [facility] Amlodipine Besylate 5 mg 01/24/21 15:00 01/26/21 10:00 Amlodipine 5 Mg Tab PO 5 mg QDAY PJ Administration Dexamethasone 6 mg 01/20/21 10:00 01/26/21 23:14 Dexamethasone 4 Mg/Ml Vial IV 01/28/21 22:01 6 mg BID PJ Administration Enoxaparin Sodium 100 mg 01/21/21 10:00 01/26/21 23:15 Enoxaparin 100 Mg/1 Ml Inj 1 mg/kg (100 mg) 100 mg SUB-Q Administration Q12HR [facility] Protocol Famotidine 20 mg 01/18/21 10:00 01/26/21 23:14 Famotidine 20 Mg Tab PO 20 mg BID PJ Administration Haloperidol 1 mg 01/24/21 12:12 01/26/21 23:14 Haloperidol 1 Mg Tab PO 1 mg BID PJ Administration Hydralazine HCl 10 mg 01/18/21 00:38 01/24/21 23:12 Hydralazine 20 Mg/1 Ml Inj IV 10 mg Q6H PRN Administration htn Hydromorphone HCl 0.5 mg 01/20/21 11:00 Hydromorphone 1 Mg/1 Ml Inj IV Q6H PRN Pain , Severe (7-10) Insulin Glargine 20 units 01/20/21 22:00 01/26/21 23:15 Insulin Glargine 100 Units/Ml SUB-Q 20 units QHS PJ Administration Insulin Glargine 20 units 01/24/21 10:00 01/26/21 10:01 Insulin Glargine 100 Units/Ml SUB-Q 20 units DAILY PJ Administration Insulin Human Lispro 0 unit 01/21/21 14:00 01/27/21 07:24 Insulin Lispro 100 Unit/Ml SUB-Q 6 unit Q4HR PJ Administration Protocol Mirtazapine 7.5 mg 01/21/21 22:00 01/26/21 23:15 Mirtazapine 15 Mg Tab PO 7.5 mg QHS PJ Administration Ondansetron HCl 4 mg 01/18/21 00:36 Ondansetron 4 Mg/2 Ml Inj IV Q8H PRN Nausea And Vomiting Sodium Chloride 10 ml 01/18/21 10:00 01/26/21 23:18 Sodium Chloride 0.9% 10 Ml Flush Syringe IV 10 ml BID PJ Administration Sodium Chloride 10 ml 01/18/21 00:36 Sodium Chloride 0.9% 10 Ml Flush Syringe IV PRN PRN LINE FLUSH Ziprasidone 10 mg 01/20/21 10:57 01/21/21 21:29 Ziprasidone Mesylate 20 Mg Vial IM 10 mg Q6H PRN Administration AGITATION Nutrition/Malnutrition Assess - Dietary Evaluation Nutrition/Malnutrition Findings: Nutrition Notes Start: 01/24/21 10:40 Freq: Status: Active Protocol: Document 01/24/21 10:40 JUAN ALBERTO (Rec: 01/24/21 10:52 JUAN ALBERTO [id number]) Nutrition Notes Need for Assessment generated from: LOS Initial or Follow up Assessment Current Diagnosis Respiratory Failure Other Pertinent Diagnosis pneu, COVID-19 Current Diet Cardiac Labs/Tests Na 149 BUN 24 BG 339 Pertinent Medications Insulin Decadron Height 5 ft 4 in Weight 89 kg [place] Body Weight (kg) 54.54 BMI 33.7 Weight Status Obese Subjective/Other Information Screen for LOS. Pt did not answer phone. Per RN, pt has poor appetite but drinks well. Burn Absent Trauma Absent Current % PO Poor (25-49%) Minimum of two criteria No Energy Intake (non-severe) <75% Estimated Energy Requirement >7 days #1 Nutrition Diagnosis Inadequate oral intake Etiology acute illness As Evidenced by Signs and Symptoms pt eating <25% of meals Is patient on ventilator? No Is Patient Ambulatory and/or Out of Bed No REE-([facility]-confined to bed) 1762.308 Kcal/Kg value to use for calculation 15 Approximate Energy Requirements Using 1335 kcal/Kg Calculation Used for Recommendations Kcal/kg Additional Notes Protein: (0.8-1g/kg AdjBW: 72kg) 57-72g Fluid: 1 ml/kcal Nutrition Intervention Change Diet Order: add consistent CHO Add Supplement/Snack (indicate name/kcal Glucerna TID /protein ) Provides kCal: 660 Provides Protein (gm) 30 Goal #1 Meet at least 75% of protein and energy needs via PO and ONS intakes Anticipated Discharge Needs: Cardiac, consistent CHO Follow-Up By: 01/28/21 Additional Comments FU for intakes and ONS tolerance
--- NOTE | 2021-01-27 11:28 | Progress Note ---
Assessment and Plan Assessment and Plan Imp: 1. Covid-19 w/ viral pneumonia 2. ARDS 3. Acute resp. failure, hypoxia 4. Hypernatremia 5. Obesity 6. Hypertension Rec: 1. Decadaron IV 2. Remdesivir x 5 days 3. Agree with therapeutic Lovenox 4. Unable to prone due to lack of cooperation and need for restraints 5. Monitor inflammatory markers still remains high 6. Encourage free water intake; repeat labs in AM 7. Wean HFNC to 80% keep sats 88% or > Total CCT 31 min Subjective Date of service: 01/27/21 Principal diagnosis: Covid-19 Interval history: Patient much more awake and alert. Blood pressure is running high. . Remains on high flow nasal cannula with 35 L nasal correction O2 flow 90% FiO2 with sats in high 90's Objective Vital Signs - 12hr 01/26/21 01/27/21 01/27/21 23:50 00:00 00:20 Temperature 98.6 F Pulse Rate 97 H 97 H 100 H Pulse Rate [ Anterior Bilateral Throughout] Pulse Rate [ 103 H From Monitor] Respiratory 21 20 Rate Respiratory Rate [Anterior Bilateral Throughout] Blood Pressure 130/61 143/68 O2 Sat by Pulse 98 97 Oximetry 01/27/21 01/27/21 01/27/21 01:00 02:00 02:57 Temperature Pulse Rate 103 H 103 H 96 H Pulse Rate [ Anterior Bilateral Throughout] Pulse Rate [ From Monitor] Respiratory 21 18 20 Rate Respiratory Rate [Anterior Bilateral Throughout] Blood Pressure 131/68 138/71 O2 Sat by Pulse 95 97 97 Oximetry 01/27/21 01/27/21 01/27/21 02:58 03:00 04:00 Temperature 97.8 F Pulse Rate 95 H 93 H Pulse Rate [ 97 H Anterior Bilateral Throughout] Pulse Rate [ 97 H From Monitor] Respiratory 19 16 Rate Respiratory 20 Rate [Anterior Bilateral Throughout] Blood Pressure 133/67 119/65 O2 Sat by Pulse 97 97 Oximetry 01/27/21 01/27/21 01/27/21 05:00 06:00 07:00 Temperature Pulse Rate 96 H 88 94 H Pulse Rate [ Anterior Bilateral Throughout] Pulse Rate [ From Monitor] Respiratory 18 17 18 Rate Respiratory Rate [Anterior Bilateral Throughout] Blood Pressure 116/57 110/58 110/58 O2 Sat by Pulse 97 96 98 Oximetry 01/27/21 01/27/21 01/27/21 07:18 07:59 08:00 Temperature 98.3 F Pulse Rate 90 76 Pulse Rate [ Anterior Bilateral Throughout] Pulse Rate [ 97 H From Monitor] Respiratory 19 Rate Respiratory Rate [Anterior Bilateral Throughout] Blood Pressure 153/68 O2 Sat by Pulse 99 90 Oximetry 01/27/21 11:09 Temperature Pulse Rate Pulse Rate [ Anterior Bilateral Throughout] Pulse Rate [ From Monitor] Respiratory Rate Respiratory Rate [Anterior Bilateral Throughout] Blood Pressure O2 Sat by Pulse 93 Oximetry Constitutional: alert, other (critically ill on HFNC 100% FiO2) Eyes: non-icteric ENT: oropharynx moist Neck: supple, other (large in circumference) Effort: mildly labored Ascultation: Bilateral: clear Cardiovascular: other (tachy, RR; no mrg) Gastrointestinal: normoactive bowel sounds, soft, non-tender, non-distended Integumentary: normal Extremities: no cyanosis, no edema, pink and warm Neurologic: normal mental status, non-focal exam, pupils equal and round Psychiatric: mood appropriate, affect normal CBC and BMP: 01/27/21 04:22 01/27/21 04:22 ABG, PT/INR, D-dimer: ABG ABG pH 7.461 pH Units (7.350-7.450) H 01/18/21 17:18 ABG pCO2 36.6 mm Hg 01/18/21 17:18 ABG pO2 53.1 mm Hg (80.0-90.0) L 01/18/21 17:18 ABG O2 Saturation 89.4 % (95.0-99.0) L 01/18/21 17:18 PT/INR, D-dimer D-Dimer 4046.06 ng/mlDDU (0-234) H 01/27/21 04:22 Abnormal lab findings: Abnormal Labs 01/17/21 01/17/21 01/17/21 09:25 16:41 16:41 WBC RBC 5.23 H MCV 76 L MCH 24 L RDW Lymph % (Auto) 9.4 L Lymph # (Auto) 0.8 L Seg Neutrophils % 85.4 H Seg Neuts % (Manual) Lymphocytes % (Manual) Seg Neutrophils # Man D-Dimer ABG pH ABG pO2 ABG O2 Saturation Oxyhemoglobin Sodium 128 L Chloride 90.8 L Carbon Dioxide BUN Glucose 372 H POC Glucose Calcium Ferritin AST 98 H Lactate Dehydrogenase C-Reactive Protein Total Protein Albumin 3.2 L Coronavirus (PCR) Positive A 01/17/21 01/17/21 01/17/21 17:46 17:46 17:46 WBC RBC MCV MCH RDW Lymph % (Auto) Lymph # (Auto) Seg Neutrophils % Seg Neuts % (Manual) Lymphocytes % (Manual) Seg Neutrophils # Man D-Dimer 1058.54 H ABG pH ABG pO2 ABG O2 Saturation Oxyhemoglobin Sodium Chloride Carbon Dioxide BUN Glucose 369 H POC Glucose Calcium Ferritin 668.4 H AST Lactate Dehydrogenase 519 H C-Reactive Protein 19.20 H Total Protein Albumin Coronavirus (PCR) 01/18/21 01/18/21 01/19/21 09:01 17:18 05:11 WBC 14.2 H RBC MCV 74 L MCH 23 L RDW Lymph % (Auto) Lymph # (Auto) Seg Neutrophils % Seg Neuts % (Manual) 88.0 H Lymphocytes % (Manual) 10.0 L Seg Neutrophils # Man 12.5 H D-Dimer ABG pH 7.461 H ABG pO2 53.1 L ABG O2 Saturation 89.4 L Oxyhemoglobin 88.0 L Sodium 132 L Chloride 93.6 L Carbon Dioxide BUN 18 H Glucose 367 H POC Glucose Calcium 7.8 L Ferritin AST Lactate Dehydrogenase C-Reactive Protein Total Protein Albumin Coronavirus (PCR) 01/19/21 01/19/21 01/19/21 05:11 11:06 14:43 WBC RBC MCV MCH RDW Lymph % (Auto) Lymph # (Auto) Seg Neutrophils % Seg Neuts % (Manual) Lymphocytes % (Manual) Seg Neutrophils # Man D-Dimer ABG pH ABG pO2 ABG O2 Saturation Oxyhemoglobin Sodium Chloride Carbon Dioxide BUN 18 H Glucose 304 H 379 H POC Glucose 382 H Calcium 8.3 L Ferritin AST 92 H 96 H Lactate Dehydrogenase C-Reactive Protein Total Protein Albumin 3.0 L 3.0 L Coronavirus (PCR) 01/19/21 01/19/21 01/20/21 16:18 22:18 07:31 WBC RBC MCV MCH RDW Lymph % (Auto) Lymph # (Auto) Seg Neutrophils % Seg Neuts % (Manual) Lymphocytes % (Manual) Seg Neutrophils # Man D-Dimer ABG pH ABG pO2 ABG O2 Saturation Oxyhemoglobin Sodium Chloride Carbon Dioxide BUN Glucose POC Glucose 374 H 341 H 344 H Calcium Ferritin AST Lactate Dehydrogenase C-Reactive Protein Total Protein Albumin Coronavirus (PCR) 01/20/21 01/20/21 01/20/21 07:33 12:14 13:54 WBC RBC MCV MCH RDW Lymph % (Auto) Lymph # (Auto) Seg Neutrophils % Seg Neuts % (Manual) Lymphocytes % (Manual) Seg Neutrophils # Man D-Dimer ABG pH ABG pO2 ABG O2 Saturation Oxyhemoglobin Sodium Chloride Carbon Dioxide BUN 32 H 31 H Glucose 343 H 396 H POC Glucose 365 H Calcium Ferritin AST 57 H 54 H Lactate Dehydrogenase C-Reactive Protein Total Protein 8.3 H Albumin 2.7 L 3.1 L Coronavirus (PCR) 01/20/21 01/20/21 01/21/21 18:28 21:25 04:45 WBC RBC MCV MCH RDW Lymph % (Auto) Lymph # (Auto) Seg Neutrophils % Seg Neuts % (Manual) Lymphocytes % (Manual) Seg Neutrophils # Man D-Dimer ABG pH ABG pO2 ABG O2 Saturation Oxyhemoglobin Sodium Chloride Carbon Dioxide 31 H BUN 41 H Glucose 377 H POC Glucose 403 H 340 H Calcium Ferritin AST Lactate Dehydrogenase C-Reactive Protein Total Protein 8.3 H Albumin 3.0 L Coronavirus (PCR) 01/21/21 01/21/21 01/21/21 04:45 04:45 04:45 WBC RBC MCV MCH RDW Lymph % (Auto) Lymph # (Auto) Seg Neutrophils % Seg Neuts % (Manual) Lymphocytes % (Manual) Seg Neutrophils # Man D-Dimer > 45596 H ABG pH ABG pO2 ABG O2 Saturation Oxyhemoglobin Sodium Chloride Carbon Dioxide BUN Glucose POC Glucose Calcium Ferritin 1688.0 H AST Lactate Dehydrogenase 649 H C-Reactive Protein 17.00 H Total Protein Albumin Coronavirus (PCR) 01/21/21 01/21/21 01/21/21 09:45 11:29 12:09 WBC RBC MCV MCH RDW Lymph % (Auto) Lymph # (Auto) Seg Neutrophils % Seg Neuts % (Manual) Lymphocytes % (Manual) Seg Neutrophils # Man D-Dimer ABG pH ABG pO2 ABG O2 Saturation Oxyhemoglobin Sodium 151 H Chloride Carbon Dioxide BUN 40 H Glucose 412 H POC Glucose 401 H 372 H Calcium Ferritin AST Lactate Dehydrogenase C-Reactive Protein Total Protein Albumin 3.4 L Coronavirus (PCR) 01/21/21 01/21/21 01/22/21 18:26 21:09 02:00 WBC RBC MCV MCH RDW Lymph % (Auto) Lymph # (Auto) Seg Neutrophils % Seg Neuts % (Manual) Lymphocytes % (Manual) Seg Neutrophils # Man D-Dimer ABG pH ABG pO2 ABG O2 Saturation Oxyhemoglobin Sodium Chloride Carbon Dioxide BUN Glucose POC Glucose 376 H 322 H 231 H Calcium Ferritin AST Lactate Dehydrogenase C-Reactive Protein Total Protein Albumin Coronavirus (PCR) 01/22/21 01/22/21 01/22/21 05:24 08:25 08:25 WBC RBC 5.44 H MCV 75 L MCH 23 L RDW 15.5 H Lymph % (Auto) Lymph # (Auto) Seg Neutrophils % Seg Neuts % (Manual) Lymphocytes % (Manual) Seg Neutrophils # Man D-Dimer ABG pH ABG pO2 ABG O2 Saturation Oxyhemoglobin Sodium 155 H Chloride 112.4 H Carbon Dioxide BUN 33 H Glucose 274 H POC Glucose 275 H Calcium Ferritin AST Lactate Dehydrogenase C-Reactive Protein Total Protein Albumin Coronavirus (PCR) 01/22/21 01/22/21 01/22/21 11:53 16:03 21:41 WBC RBC MCV MCH RDW Lymph % (Auto) Lymph # (Auto) Seg Neutrophils % Seg Neuts % (Manual) Lymphocytes % (Manual) Seg Neutrophils # Man D-Dimer ABG pH ABG pO2 ABG O2 Saturation Oxyhemoglobin Sodium Chloride Carbon Dioxide BUN Glucose POC Glucose 265 H 293 H 279 H Calcium Ferritin AST Lactate Dehydrogenase C-Reactive Protein Total Protein Albumin Coronavirus (PCR) 01/23/21 01/23/21 01/23/21 02:03 05:46 05:59 WBC RBC MCV MCH RDW Lymph % (Auto) Lymph # (Auto) Seg Neutrophils % Seg Neuts % (Manual) Lymphocytes % (Manual) Seg Neutrophils # Man D-Dimer ABG pH ABG pO2 ABG O2 Saturation Oxyhemoglobin Sodium Chloride Carbon Dioxide BUN Glucose POC Glucose 268 H 303 H Calcium Ferritin 1116.0 H AST Lactate Dehydrogenase C-Reactive Protein Total Protein Albumin Coronavirus (PCR) 01/23/21 01/23/21 01/23/21 05:59 07:42 09:11 WBC RBC MCV MCH RDW Lymph % (Auto) Lymph # (Auto) Seg Neutrophils % Seg Neuts % (Manual) Lymphocytes % (Manual) Seg Neutrophils # Man D-Dimer ABG pH ABG pO2 ABG O2 Saturation Oxyhemoglobin Sodium Chloride Carbon Dioxide BUN Glucose POC Glucose 291 H 285 H Calcium Ferritin AST Lactate Dehydrogenase 680 H C-Reactive Protein 5.80 H Total Protein Albumin Coronavirus (PCR) 01/23/21 01/23/21 01/23/21 14:06 17:05 17:59 WBC RBC MCV MCH RDW Lymph % (Auto) Lymph # (Auto) Seg Neutrophils % Seg Neuts % (Manual) Lymphocytes % (Manual) Seg Neutrophils # Han D-Dimer ABG pH ABG pO2 ABG O2 Saturation Oxyhemoglobin Sodium Chloride Carbon Dioxide BUN Glucose POC Glucose 228 H 300 H 278 H Calcium Ferritin AST Lactate Dehydrogenase C-Reactive Protein Total Protein Albumin Coronavirus (PCR) 01/23/21 01/24/21 01/24/21 21:43 02:14 05:15 WBC RBC MCV MCH RDW Lymph % (Auto) Lymph # (Auto) Seg Neutrophils % Seg Neuts % (Manual) Lymphocytes % (Manual) Seg Neutrophils # Han D-Dimer ABG pH ABG pO2 ABG O2 Saturation Oxyhemoglobin Sodium Chloride Carbon Dioxide BUN Glucose POC Glucose 223 H 427 H 392 H Calcium Ferritin AST Lactate Dehydrogenase C-Reactive Protein Total Protein Albumin Coronavirus (PCR) 01/24/21 01/24/21 01/24/21 07:03 07:03 09:10 WBC RBC 5.49 H MCV 75 L MCH 23 L RDW Lymph % (Auto) 7.0 L Lymph # (Auto) 0.5 L Seg Neutrophils % 86.1 H Seg Neuts % (Manual) Lymphocytes % (Manual) Seg Neutrophils # Han D-Dimer ABG pH ABG pO2 ABG O2 Saturation Oxyhemoglobin Sodium 149 H Chloride 111.4 H Carbon Dioxide BUN 24 H Glucose 339 H POC Glucose 284 H Calcium Ferritin AST Lactate Dehydrogenase C-Reactive Protein Total Protein Albumin Coronavirus (PCR) 01/24/21 01/24/21 01/24/21 13:47 18:30 21:58 WBC RBC MCV MCH RDW Lymph % (Auto) Lymph # (Auto) Seg Neutrophils % Seg Neuts % (Manual) Lymphocytes % (Manual) Seg Neutrophils # Han D-Dimer ABG pH ABG pO2 ABG O2 Saturation Oxyhemoglobin Sodium Chloride Carbon Dioxide BUN Glucose POC Glucose 317 H 180 H 262 H Calcium Ferritin AST Lactate Dehydrogenase C-Reactive Protein Total Protein Albumin Coronavirus (PCR) 01/25/21 01/25/21 01/25/21 01:22 05:35 08:36 WBC RBC MCV MCH RDW Lymph % (Auto) Lymph # (Auto) Seg Neutrophils % Seg Neuts % (Manual) Lymphocytes % (Manual) Seg Neutrophils # Man D-Dimer ABG pH ABG pO2 ABG O2 Saturation Oxyhemoglobin Sodium Chloride Carbon Dioxide BUN Glucose POC Glucose 280 H 243 H 216 H Calcium Ferritin AST Lactate Dehydrogenase C-Reactive Protein Total Protein Albumin Coronavirus (PCR) 01/25/21 01/25/21 01/25/21 15:14 15:14 15:14 WBC RBC MCV MCH RDW Lymph % (Auto) Lymph # (Auto) Seg Neutrophils % Seg Neuts % (Manual) Lymphocytes % (Manual) Seg Neutrophils # Man D-Dimer 6312.54 H ABG pH ABG pO2 ABG O2 Saturation Oxyhemoglobin Sodium 146 H Chloride 108.1 H Carbon Dioxide BUN 19 H Glucose 287 H POC Glucose Calcium 8.3 L Ferritin 869.5 H AST Lactate Dehydrogenase 685 H C-Reactive Protein Total Protein Albumin Coronavirus (PCR) 01/25/21 01/25/21 01/26/21 16:06 21:18 01:47 WBC RBC MCV MCH RDW Lymph % (Auto) Lymph # (Auto) Seg Neutrophils % Seg Neuts % (Manual) Lymphocytes % (Manual) Seg Neutrophils # Man D-Dimer ABG pH ABG pO2 ABG O2 Saturation Oxyhemoglobin Sodium Chloride Carbon Dioxide BUN Glucose POC Glucose 267 H 197 H 255 H Calcium Ferritin AST Lactate Dehydrogenase C-Reactive Protein Total Protein Albumin Coronavirus (PCR) 01/26/21 01/26/21 01/26/21 05:23 05:23 05:23 WBC RBC MCV MCH RDW Lymph % (Auto) Lymph # (Auto) Seg Neutrophils % Seg Neuts % (Manual) Lymphocytes % (Manual) Seg Neutrophils # Man D-Dimer 5809.58 H ABG pH ABG pO2 ABG O2 Saturation Oxyhemoglobin Sodium 149 H Chloride 109.3 H Carbon Dioxide BUN 24 H Glucose 362 H POC Glucose Calcium Ferritin 877.1 H AST Lactate Dehydrogenase 655 H C-Reactive Protein Total Protein Albumin Coronavirus (PCR) 01/26/21 01/26/21 01/26/21 05:23 06:06 09:28 WBC RBC 5.49 H MCV 77 L MCH 23 L RDW Lymph % (Auto) Lymph # (Auto) 0.8 L Seg Neutrophils % 78.9 H Seg Neuts % (Manual) Lymphocytes % (Manual) Seg Neutrophils # Man D-Dimer ABG pH ABG pO2 ABG O2 Saturation Oxyhemoglobin Sodium Chloride Carbon Dioxide BUN Glucose POC Glucose 387 H 308 H Calcium Ferritin AST Lactate Dehydrogenase C-Reactive Protein Total Protein Albumin Coronavirus (PCR) 01/26/21 01/26/21 01/27/21 15:56 21:28 02:51 WBC RBC MCV MCH RDW Lymph % (Auto) Lymph # (Auto) Seg Neutrophils % Seg Neuts % (Manual) Lymphocytes % (Manual) Seg Neutrophils # Man D-Dimer ABG pH ABG pO2 ABG O2 Saturation Oxyhemoglobin Sodium Chloride Carbon Dioxide BUN Glucose POC Glucose 172 H 316 H 267 H Calcium Ferritin AST Lactate Dehydrogenase C-Reactive Protein Total Protein Albumin Coronavirus (PCR) 01/27/21 01/27/21 01/27/21 04:22 04:22 04:22 WBC RBC MCV MCH RDW Lymph % (Auto) Lymph # (Auto) Seg Neutrophils % Seg Neuts % (Manual) Lymphocytes % (Manual) Seg Neutrophils # Man D-Dimer 4046.06 H ABG pH ABG pO2 ABG O2 Saturation Oxyhemoglobin Sodium Chloride 107.7 H Carbon Dioxide BUN 30 H Glucose 281 H POC Glucose Calcium Ferritin 812.2 H AST Lactate Dehydrogenase 570 H C-Reactive Protein Total Protein Albumin Coronavirus (PCR) 01/27/21 01/27/21 04:22 05:55 WBC RBC 5.15 H MCV 76 L MCH 23 L RDW 15.5 H Lymph % (Auto) 12.7 L Lymph # (Auto) 0.9 L Seg Neutrophils % 81.3 H Seg Neuts % (Manual) Lymphocytes % (Manual) Seg Neutrophils # Man D-Dimer ABG pH ABG pO2 ABG O2 Saturation Oxyhemoglobin Sodium Chloride Carbon Dioxide BUN Glucose POC Glucose 275 H Calcium Ferritin AST Lactate Dehydrogenase C-Reactive Protein Total Protein Albumin Coronavirus (PCR)
[2021-01-27] MEDS: amLODIPine 5 MG TAB PO SCH (11:37)
[2021-01-27] MEDS: FAMOTIDINE 20 MG TAB PO SCH ×2 (11:37→21:19)
[2021-01-27] MEDS: HALOPERIDOL 1 MG TAB PO SCH ×2 (11:37→21:20)
[2021-01-27] MEDS: ENOXAPARIN 100 MG/1 ML INJ SUB-Q SCH ×2 (11:38→21:19)
[2021-01-27] MEDS: dexAMETHasone 4 MG/ML VIAL IV SCH ×2 (11:38→21:19)
[2021-01-27] MEDS: INSULIN GLARGINE 100 UNITS/ML SUB-Q SCH ×2 (11:38→21:20)
--- NOTE | 2021-01-27 12:15 | Progress Note ---
Assessment and Plan Cultures: COVID-19 PCR: Positive 01/17/2021 blood culture: No growth A/P: 55-year-old female past medical history schizophrenia admitted to hospital with COVID-19. #Severe COVID-19 pneumonia: Inflammatory markers elevated. No evidence of pulmonary embolism on CT. s/p abx, completed remdesivir, s/p Actemra on 01/20/2021 #Acute hypoxemic respiratory failure: secondary to COVID-19 infection. On HFNC. #Obesity Recs: -Continue Decadron per pulm, agree with higher dose due to obesity, may wean after completing 10 days -s/p abx, completed remdesivir, s/p Actemra on 01/20/2021 -Anticoagulation per protocol. d-dimer downtrending -prone as tolerated Aiden Torres MD, FACP [facility] O: [phone] F: [phone] Subjective Date of service: 01/27/21 Principal diagnosis: Covid-19 Interval history: No fever. Remains on HFNC. Objective - Exam Narrative Exam: Physical Exam (reviewed in chart to minimize risk of transmission) Constitutional: deferred Head, Ears, Nose: deferred Eyes: deferred Neck: deferred Oral: deferred Cardiovascular: deferred Respiratory: deferred GI: deferred Musculoskeletal: deferred Skin: deferred Hem/Lymphatic: deferred Psych: deferred Neurological: deferred - Constitutional Vitals: Vital Signs Temp Pulse Resp BP Pulse Ox 98.0 F 97 H 19 153/68 93 01/27/21 12:00 01/27/21 08:00 01/27/21 08:00 01/27/21 08:00 01/27/21 11:09 Temperature -Last 24 Hours Temperature 98.0 F Temperature 98.3 F Temperature 97.8 F Temperature 98.6 F Temperature 97.6 F Temperature 98.1 F - Labs CBC & Chem 7: 01/27/21 04:22 01/27/21 04:22 Labs: Abnormal lab results 01/26/21 01/26/21 01/26/21 Range/Units 09:28 15:56 21:28 RBC (3.65-5.03) M/mm3 MCV (79-97) fl MCH (28-32) pg RDW (13.2-15.2) % Lymph % (Auto) (13.4-35.0) % Lymph # (Auto) (1.2-5.4) K/mm3 Seg Neutrophils % (40.0-70.0) % D-Dimer (0-234) ng/mlDDU Chloride (98-107) mmol/L BUN (7-17) mg/dL Glucose (65-100) mg/dL POC Glucose 308 H 172 H 316 H (70-105) mg/dL Ferritin (10.0-200.0) ng/mL Lactate Dehydrogenase (91-180) units/L 01/27/21 01/27/21 01/27/21 Range/Units 02:51 04:22 04:22 RBC (3.65-5.03) M/mm3 MCV (79-97) fl MCH (28-32) pg RDW (13.2-15.2) % Lymph % (Auto) (13.4-35.0) % Lymph # (Auto) (1.2-5.4) K/mm3 Seg Neutrophils % (40.0-70.0) % D-Dimer 4046.06 H (0-234) ng/mlDDU Chloride (98-107) mmol/L BUN (7-17) mg/dL Glucose (65-100) mg/dL POC Glucose 267 H (70-105) mg/dL Ferritin 812.2 H (10.0-200.0) ng/mL Lactate Dehydrogenase (91-180) units/L 01/27/21 01/27/21 01/27/21 Range/Units 04:22 04:22 05:55 RBC 5.15 H (3.65-5.03) M/mm3 MCV 76 L (79-97) fl MCH 23 L (28-32) pg RDW 15.5 H (13.2-15.2) % Lymph % (Auto) 12.7 L (13.4-35.0) % Lymph # (Auto) 0.9 L (1.2-5.4) K/mm3 Seg Neutrophils % 81.3 H (40.0-70.0) % D-Dimer (0-234) ng/mlDDU Chloride 107.7 H (98-107) mmol/L BUN 30 H (7-17) mg/dL Glucose 281 H (65-100) mg/dL POC Glucose 275 H (70-105) mg/dL Ferritin (10.0-200.0) ng/mL Lactate Dehydrogenase 570 H (91-180) units/L
[2021-01-27] MEDS: MIRTAZAPINE 15 MG TAB PO SCH (21:19)
[2021-01-28] MEDS: INSULIN LISPRO 100 UNIT/ML SUB-Q SCH ×5 (02:21→18:41)
[2021-01-28] MEDS: IPRATROPIUM/ALBUTEROL SULFATE 3 ML AMPUL.NEB IH SCH ×4 (03:09→19:39)
[2021-01-28] MEDS: ZIPRASIDONE MESYLATE 20 MG VIAL IM PRN (08:59)
[2021-01-28] MEDS: amLODIPine 5 MG TAB PO SCH (09:00)
[2021-01-28] MEDS: HALOPERIDOL 1 MG TAB PO SCH ×2 (09:01→22:05)
[2021-01-28] MEDS: ENOXAPARIN 100 MG/1 ML INJ SUB-Q SCH ×2 (09:01→22:05)
[2021-01-28] MEDS: dexAMETHasone 4 MG/ML VIAL IV SCH ×2 (09:01→22:05)
[2021-01-28] MEDS: FAMOTIDINE 20 MG TAB PO SCH ×2 (09:02→22:05)
[2021-01-28] MEDS: INSULIN GLARGINE 100 UNITS/ML SUB-Q SCH ×2 (09:02→22:05)
[2021-01-28 09:34] LABS: C-Reactive Protein 0.2 mg/dL (0.00-1.30)
--- NOTE | 2021-01-28 10:08 | Progress Note ---
Assessment and Plan 55 y/o female admitted with acute respiratory failure secondary to pneumonia, positive for Sars CoV2 01/28/21: Will give lasix again today. Continue all other therapies. Prone if patient will and tolerate. STeroids. Guarded prognosis. 01/20/21: Gave Haldol 5 and patient has calmed down and become more appropriate, allowing us to place bipap back on. COntinue steroids and remdesivir therapy. Doubt patient will be able to prone successfully. Will try lasix today again to see if this helps. Very very guarded prognosis. 01/19/21: Continue decadron, suggest increase given patient body habitus to BID. ID consult for Remdesivir therapy and to see if she is a candidate for Actemra. Prone as tolerated during the day and sleep prone at night. Will give lasix again today. Guarded prognosis. 1. Prone 2. Lasix 3. Agree with steroids 4. Follow up COVID testing Guarded prognosis Subjective Date of service: 01/28/21 Principal diagnosis: Covid-19 Interval history: Remains on HFNC. Objective Vital Signs - 12hr 01/27/21 01/27/21 01/28/21 23:00 23:55 00:00 Temperature 98.2 F Pulse Rate 81 Pulse Rate [ Anterior Bilateral Throughout] Pulse Rate [ 96 H From Monitor] Respiratory 18 18 Rate Respiratory Rate [Anterior Bilateral Throughout] Blood Pressure 121/86 O2 Sat by Pulse 91 92 Oximetry 01/28/21 01/28/21 01/28/21 00:01 00:07 00:36 Temperature Pulse Rate 96 H 98 H 91 H Pulse Rate [ Anterior Bilateral Throughout] Pulse Rate [ From Monitor] Respiratory 18 20 Rate Respiratory Rate [Anterior Bilateral Throughout] Blood Pressure 148/86 148/86 O2 Sat by Pulse 92 96 Oximetry 01/28/21 01/28/21 01/28/21 01:00 02:00 03:00 Temperature Pulse Rate 80 88 88 Pulse Rate [ Anterior Bilateral Throughout] Pulse Rate [ From Monitor] Respiratory 20 19 20 Rate Respiratory Rate [Anterior Bilateral Throughout] Blood Pressure 153/79 116/67 117/69 O2 Sat by Pulse 93 92 93 Oximetry 01/28/21 01/28/21 01/28/21 03:10 03:32 03:50 Temperature 98.1 F Pulse Rate 83 84 Pulse Rate [ Anterior Bilateral Throughout] Pulse Rate [ From Monitor] Respiratory 16 Rate Respiratory Rate [Anterior Bilateral Throughout] Blood Pressure 117/69 O2 Sat by Pulse 94 Oximetry 01/28/21 01/28/21 01/28/21 04:00 05:00 06:01 Temperature Pulse Rate 78 83 73 Pulse Rate [ Anterior Bilateral Throughout] Pulse Rate [ 78 From Monitor] Respiratory 17 17 20 Rate Respiratory Rate [Anterior Bilateral Throughout] Blood Pressure 119/70 109/73 126/69 O2 Sat by Pulse 90 93 95 Oximetry 01/28/21 01/28/21 01/28/21 07:00 08:00 08:01 Temperature Pulse Rate 81 83 106 H Pulse Rate [ Anterior Bilateral Throughout] Pulse Rate [ From Monitor] Respiratory 20 18 Rate Respiratory Rate [Anterior Bilateral Throughout] Blood Pressure 119/76 127/70 O2 Sat by Pulse 93 95 Oximetry 01/28/21 01/28/21 01/28/21 08:29 08:38 09:00 Temperature Pulse Rate 90 Pulse Rate [ 103 H Anterior Bilateral Throughout] Pulse Rate [ From Monitor] Respiratory Rate Respiratory 20 Rate [Anterior Bilateral Throughout] Blood Pressure 127/70 O2 Sat by Pulse 96 Oximetry 01/28/21 09:01 Temperature Pulse Rate 85 Pulse Rate [ Anterior Bilateral Throughout] Pulse Rate [ From Monitor] Respiratory 22 Rate Respiratory Rate [Anterior Bilateral Throughout] Blood Pressure 152/74 O2 Sat by Pulse 91 Oximetry Constitutional: alert, other (critically ill on HFNC 100% FiO2) Eyes: non-icteric ENT: oropharynx moist Neck: supple, other (large in circumference) Effort: mildly labored Ascultation: Bilateral: clear Cardiovascular: other (tachy, RR; no mrg) Gastrointestinal: normoactive bowel sounds, soft, non-tender, non-distended Integumentary: normal Extremities: no cyanosis, no edema, pink and warm Neurologic: normal mental status, non-focal exam, pupils equal and round Psychiatric: mood appropriate, affect normal CBC and BMP: 01/27/21 04:22 01/27/21 04:22 ABG, PT/INR, D-dimer: ABG ABG pH 7.461 pH Units (7.350-7.450) H 01/18/21 17:18 ABG pCO2 36.6 mm Hg 01/18/21 17:18 ABG pO2 53.1 mm Hg (80.0-90.0) L 01/18/21 17:18 ABG O2 Saturation 89.4 % (95.0-99.0) L 01/18/21 17:18 PT/INR, D-dimer D-Dimer 1884.49 ng/mlDDU (0-234) H 01/28/21 08:46 Abnormal lab findings: Abnormal Labs 01/17/21 01/17/21 01/17/21 09:25 16:41 16:41 WBC RBC 5.23 H MCV 76 L MCH 24 L RDW Lymph % (Auto) 9.4 L Lymph # (Auto) 0.8 L Seg Neutrophils % 85.4 H Seg Neuts % (Manual) Lymphocytes % (Manual) Seg Neutrophils # Man D-Dimer ABG pH ABG pO2 ABG O2 Saturation Oxyhemoglobin Sodium 128 L Chloride 90.8 L Carbon Dioxide BUN Glucose 372 H POC Glucose Calcium Ferritin AST 98 H Lactate Dehydrogenase C-Reactive Protein Total Protein Albumin 3.2 L Coronavirus (PCR) Positive A 01/17/21 01/17/21 01/17/21 17:46 17:46 17:46 WBC RBC MCV MCH RDW Lymph % (Auto) Lymph # (Auto) Seg Neutrophils % Seg Neuts % (Manual) Lymphocytes % (Manual) Seg Neutrophils # Man D-Dimer 1058.54 H ABG pH ABG pO2 ABG O2 Saturation Oxyhemoglobin Sodium Chloride Carbon Dioxide BUN Glucose 369 H POC Glucose Calcium Ferritin 668.4 H AST Lactate Dehydrogenase 519 H C-Reactive Protein 19.20 H Total Protein Albumin Coronavirus (PCR) 01/18/21 01/18/21 01/19/21 09:01 17:18 05:11 WBC 14.2 H RBC MCV 74 L MCH 23 L RDW Lymph % (Auto) Lymph # (Auto) Seg Neutrophils % Seg Neuts % (Manual) 88.0 H Lymphocytes % (Manual) 10.0 L Seg Neutrophils # Man 12.5 H D-Dimer ABG pH 7.461 H ABG pO2 53.1 L ABG O2 Saturation 89.4 L Oxyhemoglobin 88.0 L Sodium 132 L Chloride 93.6 L Carbon Dioxide BUN 18 H Glucose 367 H POC Glucose Calcium 7.8 L Ferritin AST Lactate Dehydrogenase C-Reactive Protein Total Protein Albumin Coronavirus (PCR) 01/19/21 01/19/21 01/19/21 05:11 11:06 14:43 WBC RBC MCV MCH RDW Lymph % (Auto) Lymph # (Auto) Seg Neutrophils % Seg Neuts % (Manual) Lymphocytes % (Manual) Seg Neutrophils # Man D-Dimer ABG pH ABG pO2 ABG O2 Saturation Oxyhemoglobin Sodium Chloride Carbon Dioxide BUN 18 H Glucose 304 H 379 H POC Glucose 382 H Calcium 8.3 L Ferritin AST 92 H 96 H Lactate Dehydrogenase C-Reactive Protein Total Protein Albumin 3.0 L 3.0 L Coronavirus (PCR) 01/19/21 01/19/21 01/20/21 16:18 22:18 07:31 WBC RBC MCV MCH RDW Lymph % (Auto) Lymph # (Auto) Seg Neutrophils % Seg Neuts % (Manual) Lymphocytes % (Manual) Seg Neutrophils # Man D-Dimer ABG pH ABG pO2 ABG O2 Saturation Oxyhemoglobin Sodium Chloride Carbon Dioxide BUN Glucose POC Glucose 374 H 341 H 344 H Calcium Ferritin AST Lactate Dehydrogenase C-Reactive Protein Total Protein Albumin Coronavirus (PCR) 01/20/21 01/20/21 01/20/21 07:33 12:14 13:54 WBC RBC MCV MCH RDW Lymph % (Auto) Lymph # (Auto) Seg Neutrophils % Seg Neuts % (Manual) Lymphocytes % (Manual) Seg Neutrophils # Han D-Dimer ABG pH ABG pO2 ABG O2 Saturation Oxyhemoglobin Sodium Chloride Carbon Dioxide BUN 32 H 31 H Glucose 343 H 396 H POC Glucose 365 H Calcium Ferritin AST 57 H 54 H Lactate Dehydrogenase C-Reactive Protein Total Protein 8.3 H Albumin 2.7 L 3.1 L Coronavirus (PCR) 01/20/21 01/20/21 01/21/21 18:28 21:25 04:45 WBC RBC MCV MCH RDW Lymph % (Auto) Lymph # (Auto) Seg Neutrophils % Seg Neuts % (Manual) Lymphocytes % (Manual) Seg Neutrophils # Man D-Dimer ABG pH ABG pO2 ABG O2 Saturation Oxyhemoglobin Sodium Chloride Carbon Dioxide 31 H BUN 41 H Glucose 377 H POC Glucose 403 H 340 H Calcium Ferritin AST Lactate Dehydrogenase C-Reactive Protein Total Protein 8.3 H Albumin 3.0 L Coronavirus (PCR) 01/21/21 01/21/21 01/21/21 04:45 04:45 04:45 WBC RBC MCV MCH RDW Lymph % (Auto) Lymph # (Auto) Seg Neutrophils % Seg Neuts % (Manual) Lymphocytes % (Manual) Seg Neutrophils # Man D-Dimer > 33254 H ABG pH ABG pO2 ABG O2 Saturation Oxyhemoglobin Sodium Chloride Carbon Dioxide BUN Glucose POC Glucose Calcium Ferritin 1688.0 H AST Lactate Dehydrogenase 649 H C-Reactive Protein 17.00 H Total Protein Albumin Coronavirus (PCR) 01/21/21 01/21/21 01/21/21 09:45 11:29 12:09 WBC RBC MCV MCH RDW Lymph % (Auto) Lymph # (Auto) Seg Neutrophils % Seg Neuts % (Manual) Lymphocytes % (Manual) Seg Neutrophils # Han D-Dimer ABG pH ABG pO2 ABG O2 Saturation Oxyhemoglobin Sodium 151 H Chloride Carbon Dioxide BUN 40 H Glucose 412 H POC Glucose 401 H 372 H Calcium Ferritin AST Lactate Dehydrogenase C-Reactive Protein Total Protein Albumin 3.4 L Coronavirus (PCR) 01/21/21 01/21/21 01/22/21 18:26 21:09 02:00 WBC RBC MCV MCH RDW Lymph % (Auto) Lymph # (Auto) Seg Neutrophils % Seg Neuts % (Manual) Lymphocytes % (Manual) Seg Neutrophils # Han D-Dimer ABG pH ABG pO2 ABG O2 Saturation Oxyhemoglobin Sodium Chloride Carbon Dioxide BUN Glucose POC Glucose 376 H 322 H 231 H Calcium Ferritin AST Lactate Dehydrogenase C-Reactive Protein Total Protein Albumin Coronavirus (PCR) 01/22/21 01/22/21 01/22/21 05:24 08:25 08:25 WBC RBC 5.44 H MCV 75 L MCH 23 L RDW 15.5 H Lymph % (Auto) Lymph # (Auto) Seg Neutrophils % Seg Neuts % (Manual) Lymphocytes % (Manual) Seg Neutrophils # Han D-Dimer ABG pH ABG pO2 ABG O2 Saturation Oxyhemoglobin Sodium 155 H Chloride 112.4 H Carbon Dioxide BUN 33 H Glucose 274 H POC Glucose 275 H Calcium Ferritin AST Lactate Dehydrogenase C-Reactive Protein Total Protein Albumin Coronavirus (PCR) 01/22/21 01/22/21 01/22/21 11:53 16:03 21:41 WBC RBC MCV MCH RDW Lymph % (Auto) Lymph # (Auto) Seg Neutrophils % Seg Neuts % (Manual) Lymphocytes % (Manual) Seg Neutrophils # Han D-Dimer ABG pH ABG pO2 ABG O2 Saturation Oxyhemoglobin Sodium Chloride Carbon Dioxide BUN Glucose POC Glucose 265 H 293 H 279 H Calcium Ferritin AST Lactate Dehydrogenase C-Reactive Protein Total Protein Albumin Coronavirus (PCR) 01/23/21 01/23/21 01/23/21 02:03 05:46 05:59 WBC RBC MCV MCH RDW Lymph % (Auto) Lymph # (Auto) Seg Neutrophils % Seg Neuts % (Manual) Lymphocytes % (Manual) Seg Neutrophils # Man D-Dimer ABG pH ABG pO2 ABG O2 Saturation Oxyhemoglobin Sodium Chloride Carbon Dioxide BUN Glucose POC Glucose 268 H 303 H Calcium Ferritin 1116.0 H AST Lactate Dehydrogenase C-Reactive Protein Total Protein Albumin Coronavirus (PCR) 01/23/21 01/23/21 01/23/21 05:59 07:42 09:11 WBC RBC MCV MCH RDW Lymph % (Auto) Lymph # (Auto) Seg Neutrophils % Seg Neuts % (Manual) Lymphocytes % (Manual) Seg Neutrophils # Man D-Dimer ABG pH ABG pO2 ABG O2 Saturation Oxyhemoglobin Sodium Chloride Carbon Dioxide BUN Glucose POC Glucose 291 H 285 H Calcium Ferritin AST Lactate Dehydrogenase 680 H C-Reactive Protein 5.80 H Total Protein Albumin Coronavirus (PCR) 01/23/21 01/23/21 01/23/21 14:06 17:05 17:59 WBC RBC MCV MCH RDW Lymph % (Auto) Lymph # (Auto) Seg Neutrophils % Seg Neuts % (Manual) Lymphocytes % (Manual) Seg Neutrophils # Man D-Dimer ABG pH ABG pO2 ABG O2 Saturation Oxyhemoglobin Sodium Chloride Carbon Dioxide BUN Glucose POC Glucose 228 H 300 H 278 H Calcium Ferritin AST Lactate Dehydrogenase C-Reactive Protein Total Protein Albumin Coronavirus (PCR) 01/23/21 01/24/21 01/24/21 21:43 02:14 05:15 WBC RBC MCV MCH RDW Lymph % (Auto) Lymph # (Auto) Seg Neutrophils % Seg Neuts % (Manual) Lymphocytes % (Manual) Seg Neutrophils # Man D-Dimer ABG pH ABG pO2 ABG O2 Saturation Oxyhemoglobin Sodium Chloride Carbon Dioxide BUN Glucose POC Glucose 223 H 427 H 392 H Calcium Ferritin AST Lactate Dehydrogenase C-Reactive Protein Total Protein Albumin Coronavirus (PCR) 01/24/21 01/24/21 01/24/21 07:03 07:03 09:10 WBC RBC 5.49 H MCV 75 L MCH 23 L RDW Lymph % (Auto) 7.0 L Lymph # (Auto) 0.5 L Seg Neutrophils % 86.1 H Seg Neuts % (Manual) Lymphocytes % (Manual) Seg Neutrophils # Han D-Dimer ABG pH ABG pO2 ABG O2 Saturation Oxyhemoglobin Sodium 149 H Chloride 111.4 H Carbon Dioxide BUN 24 H Glucose 339 H POC Glucose 284 H Calcium Ferritin AST Lactate Dehydrogenase C-Reactive Protein Total Protein Albumin Coronavirus (PCR) 01/24/21 01/24/21 01/24/21 13:47 18:30 21:58 WBC RBC MCV MCH RDW Lymph % (Auto) Lymph # (Auto) Seg Neutrophils % Seg Neuts % (Manual) Lymphocytes % (Manual) Seg Neutrophils # Han D-Dimer ABG pH ABG pO2 ABG O2 Saturation Oxyhemoglobin Sodium Chloride Carbon Dioxide BUN Glucose POC Glucose 317 H 180 H 262 H Calcium Ferritin AST Lactate Dehydrogenase C-Reactive Protein Total Protein Albumin Coronavirus (PCR) 01/25/21 01/25/21 01/25/21 01:22 05:35 08:36 WBC RBC MCV MCH RDW Lymph % (Auto) Lymph # (Auto) Seg Neutrophils % Seg Neuts % (Manual) Lymphocytes % (Manual) Seg Neutrophils # Han D-Dimer ABG pH ABG pO2 ABG O2 Saturation Oxyhemoglobin Sodium Chloride Carbon Dioxide BUN Glucose POC Glucose 280 H 243 H 216 H Calcium Ferritin AST Lactate Dehydrogenase C-Reactive Protein Total Protein Albumin Coronavirus (PCR) 01/25/21 01/25/21 01/25/21 15:14 15:14 15:14 WBC RBC MCV MCH RDW Lymph % (Auto) Lymph # (Auto) Seg Neutrophils % Seg Neuts % (Manual) Lymphocytes % (Manual) Seg Neutrophils # Han D-Dimer 6312.54 H ABG pH ABG pO2 ABG O2 Saturation Oxyhemoglobin Sodium 146 H Chloride 108.1 H Carbon Dioxide BUN 19 H Glucose 287 H POC Glucose Calcium 8.3 L Ferritin 869.5 H AST Lactate Dehydrogenase 685 H C-Reactive Protein Total Protein Albumin Coronavirus (PCR) 01/25/21 01/25/21 01/26/21 16:06 21:18 01:47 WBC RBC MCV MCH RDW Lymph % (Auto) Lymph # (Auto) Seg Neutrophils % Seg Neuts % (Manual) Lymphocytes % (Manual) Seg Neutrophils # Han D-Dimer ABG pH ABG pO2 ABG O2 Saturation Oxyhemoglobin Sodium Chloride Carbon Dioxide BUN Glucose POC Glucose 267 H 197 H 255 H Calcium Ferritin AST Lactate Dehydrogenase C-Reactive Protein Total Protein Albumin Coronavirus (PCR) 01/26/21 01/26/21 01/26/21 05:23 05:23 05:23 WBC RBC MCV MCH RDW Lymph % (Auto) Lymph # (Auto) Seg Neutrophils % Seg Neuts % (Manual) Lymphocytes % (Manual) Seg Neutrophils # Man D-Dimer 5809.58 H ABG pH ABG pO2 ABG O2 Saturation Oxyhemoglobin Sodium 149 H Chloride 109.3 H Carbon Dioxide BUN 24 H Glucose 362 H POC Glucose Calcium Ferritin 877.1 H AST Lactate Dehydrogenase 655 H C-Reactive Protein Total Protein Albumin Coronavirus (PCR) 01/26/21 01/26/21 01/26/21 05:23 06:06 09:28 WBC RBC 5.49 H MCV 77 L MCH 23 L RDW Lymph % (Auto) Lymph # (Auto) 0.8 L Seg Neutrophils % 78.9 H Seg Neuts % (Manual) Lymphocytes % (Manual) Seg Neutrophils # Man D-Dimer ABG pH ABG pO2 ABG O2 Saturation Oxyhemoglobin Sodium Chloride Carbon Dioxide BUN Glucose POC Glucose 387 H 308 H Calcium Ferritin AST Lactate Dehydrogenase C-Reactive Protein Total Protein Albumin Coronavirus (PCR) 01/26/21 01/26/21 01/27/21 15:56 21:28 02:51 WBC RBC MCV MCH RDW Lymph % (Auto) Lymph # (Auto) Seg Neutrophils % Seg Neuts % (Manual) Lymphocytes % (Manual) Seg Neutrophils # Man D-Dimer ABG pH ABG pO2 ABG O2 Saturation Oxyhemoglobin Sodium Chloride Carbon Dioxide BUN Glucose POC Glucose 172 H 316 H 267 H Calcium Ferritin AST Lactate Dehydrogenase C-Reactive Protein Total Protein Albumin Coronavirus (PCR) 01/27/21 01/27/21 01/27/21 04:22 04:22 04:22 WBC RBC MCV MCH RDW Lymph % (Auto) Lymph # (Auto) Seg Neutrophils % Seg Neuts % (Manual) Lymphocytes % (Manual) Seg Neutrophils # Man D-Dimer 4046.06 H ABG pH ABG pO2 ABG O2 Saturation Oxyhemoglobin Sodium Chloride 107.7 H Carbon Dioxide BUN 30 H Glucose 281 H POC Glucose Calcium Ferritin 812.2 H AST Lactate Dehydrogenase 570 H C-Reactive Protein Total Protein Albumin Coronavirus (PCR) 01/27/21 01/27/21 01/27/21 04:22 05:55 12:00 WBC RBC 5.15 H MCV 76 L MCH 23 L RDW 15.5 H Lymph % (Auto) 12.7 L Lymph # (Auto) 0.9 L Seg Neutrophils % 81.3 H Seg Neuts % (Manual) Lymphocytes % (Manual) Seg Neutrophils # Man D-Dimer ABG pH ABG pO2 ABG O2 Saturation Oxyhemoglobin Sodium Chloride Carbon Dioxide BUN Glucose POC Glucose 275 H 121 H Calcium Ferritin AST Lactate Dehydrogenase C-Reactive Protein Total Protein Albumin Coronavirus (PCR) 01/27/21 01/27/21 01/28/21 17:32 21:23 02:08 WBC RBC MCV MCH RDW Lymph % (Auto) Lymph # (Auto) Seg Neutrophils % Seg Neuts % (Manual) Lymphocytes % (Manual) Seg Neutrophils # Man D-Dimer ABG pH ABG pO2 ABG O2 Saturation Oxyhemoglobin Sodium Chloride Carbon Dioxide BUN Glucose POC Glucose 195 H 179 H 210 H Calcium Ferritin AST Lactate Dehydrogenase C-Reactive Protein Total Protein Albumin Coronavirus (PCR) 01/28/21 01/28/21 01/28/21 05:09 08:44 08:46 WBC RBC MCV MCH RDW Lymph % (Auto) Lymph # (Auto) Seg Neutrophils % Seg Neuts % (Manual) Lymphocytes % (Manual) Seg Neutrophils # Man D-Dimer 1884.49 H ABG pH ABG pO2 ABG O2 Saturation Oxyhemoglobin Sodium Chloride Carbon Dioxide BUN Glucose POC Glucose 202 H 191 H Calcium Ferritin AST Lactate Dehydrogenase C-Reactive Protein Total Protein Albumin Coronavirus (PCR) 01/28/21 01/28/21 08:46 08:46 WBC RBC MCV MCH RDW Lymph % (Auto) Lymph # (Auto) Seg Neutrophils % Seg Neuts % (Manual) Lymphocytes % (Manual) Seg Neutrophils # Man D-Dimer ABG pH ABG pO2 ABG O2 Saturation Oxyhemoglobin Sodium Chloride Carbon Dioxide BUN Glucose POC Glucose Calcium Ferritin 797.7 H AST Lactate Dehydrogenase 556 H C-Reactive Protein Total Protein Albumin Coronavirus (PCR)
--- NOTE | 2021-01-28 10:54 | Progress Note ---
Assessment and Plan Assessment and plan: This is a 55-year-old female with schizophrenia who presented to [facility] on 01/18 for shortness of breath, cough, subjective fever and not feeling well for the last couple days with known COVID-19 exposure. While in the emergency room patient was switched from non rebreather mask to high flow nasal cannula and his CTA chest showed no acute pulmonary embolism. Patient was admitted to the hospital service as a COVID-19 PUI with consults to CCM, infectious disease, psych. Severe COVID-19 pneumonia Acute hypoxic respiratory failure Obesity Schizophrenia Leukocytosis Hyperglycemia Schizophrenia Hypernatremia Hypercholermia -CCM, infectious disease, psychiatry consulted, appreciate recommendations -COVID-19 PCR positive -Droplet/contact isolation -Remdesivir, azithromycin, ceftriaxone, dexamethasone (twice daily dosing) -s/p Actemra -Wean supplemental oxygen as tolerated, pulmonary hygiene -Prone as tolerated -Trend COVID-19 inflammatory markers for risk stratification, CBC, CMP -SSI, Lantus -01/18 bilateral lower extremity Doppler ultrasound negative for DVT -01/17 CTA shows no evidence of pulmonary embolism, extensive bilateral pneumonia, hepatomegaly with hepatic steatosis 01/18/2021 -Acute hypoxic respiratory failure requiring high flow oxygen 40 L. Nebulizer treatment -Patient is admitted for suspected Covid pneumonia. Patient is on dexamethasone, COVID-19 test is pending. Patient is on empiric antibiotics. -ID consulted, will consult pulmonary. -Patient has hyponatremia yesterday and I will repeat and if it is low I will manage accordingly -Patient has elevated D-dimer and CTA chest and bilateral Doppler ultrasound of the lower extremities pending 01/19/2021 -Acute hypoxic respiratory failure currently on BiPAP, nebulizer treatment. I will put in orders to transfer to [facility] yesterday but there was no bed. -Patient is positive for Covid and she is on Decadron and remdesivir. Actemra was ordered on 01/19/2021 -ID evaluated the patient and recommend to continue Decadron and remdesivir, also to continue ceftriaxone and azithromycin for 5 days because of the elevated procalcitonin level. Pulmonary was consulted and recommend to continue current management and add Lasix -CTA chest was done and significant for bilateral pulmonary opacities, negative for PE, Doppler ultrasound of the lower extremities was negative for DVT. -Prognosis is guarded. -Patient is currently on BiPAP and she was agitated and trying to take off the BiPAP, I put the patient on restraints. Discussed with warehouse handler to transfer the patient to IMCU and if there is no bed she need to be transferred to CCU. 01/20: Patient received 5 mg of Haldol for severe agitation and refusal to keep high flow nasal cannula in place. [facility] ordered Lasix again. Psych was consulted today. Patient was on BiPAP therapy all night and RT attempted to give her a break patient is on high flow nasal cannula however she did not keep this in place and was paced back on BiPAP after receiving Haldol. She was started on Lantus today. 01/21: Patient is on BiPAP and on time examination was on 20/10 100% FiO2. Patient was started on Lantus. Psych consult completed and started on Haldol p.o. twice daily and Mirtazepin PO daily. No acute events reported overnight. Patient's D-dimer is greater than 10,000 started on prophylactic Lovenox as recent CTA chest and bilateral lower extremity Doppler ultrasound were negative. 01/22: Patient has been taken off BiPAP therapy and placed on high flow nasal cannula. Patient has been downgraded to IMCU. Patient's hyponatremia and hypochloremia have worsened. 01/23: Patient was on BiPAP overnight with FiO2 85% and IPAP 20/EPAP 10. Patient currently with high flow nasal cannula 40 L O2 with an FiO2 of 100%. Continue remdesivir and dexamethasone. Patient is s/p Actemra on 01/20. Continue empiric antibiotics per ID recommendations. Continue anticoagulation per protocol. 01/24: Patient is tachycardic and hypertensive and [facility] has opted to add amlo dipine. Patient remains on 40 L 100% high flow nasal cannula. Continue remdesivir and dexamethasone. Patient is s/p Actemra on 01/20. Continue empiric antibiotics per ID recommendations. Continue anticoagulation per protocol. 01/25: Patient currently with high flow nasal cannula 40 L/min with FiO2 100%. Continue dexamethasone. Patient has completed remdesivir and s/p Actemra on 01/20. Continue full dose anticoagulation given high elevated D-dimer. Continue to trend inflammatory markers. Prognosis remains guarded. 01/26: Patient currently with high flow nasal cannula 35 L/min and FiO2 90%. Continue dexamethasone. Patient has completed remdesivir and s/p Actemra on 01/20. Continue full dose anticoagulation given high elevated D-dimer. Continue to trend inflammatory markers. Prognosis remains guarded. 01/27: Patient currently with high flow nasal cannula/Vapotherm 35 L/min O2 with F iO2 90%. Patient has completed remdesivir and s/p Actemra on 01/20. Continue full dose anticoagulation given high elevated D-dimer. Continue to trend inflammatory markers. Prognosis remains guarded. 01/28; Patient currently with high flow nasal cannula/Vapotherm 35 L/min O2 with FiO2 90%. Patient has completed remdesivir and s/p Actemra on 01/20. Continue full dose anticoagulation given high elevated D-dimer. Continue to trend inflammatory markers. Prognosis remains guarded. History Interval history: Patient was seen and evaluated this morning Patient was on high flow oxygen 35 L Patient was calm and cooperative Per patient's nurse, patient was agitated and on restraints Hospitalist Physical - Physical exam Narrative exam: Patient was on 35 L high flow oxygen The patient appeared well nourished and normally developed. Vital signs as documented. Head exam is unremarkable. No scleral icterus . Neck is without jugular venous distension, thyromegaly, or carotid bruits. Lungs decreased air entry on both lungs Cardiac exam reveals regular rate and Rhythm. Abdominal exam reveals normal bowel sounds, nontender, no organomegaly. Extremities are nonedematous and both femoral and pedal pulses are normal. FRIT COATER: Patient was calm and cooperative. - Constitutional Vitals: Temp Pulse Resp BP Pulse Ox 98.1 F 85 22 152/74 91 01/28/21 03:50 01/28/21 09:01 01/28/21 09:01 01/28/21 09:01 01/28/21 09:01 General appearance: Present: no acute distress, well-nourished HEART Score - HEART Score Troponin: Troponin T < 0.010 ng/mL (0.00-0.029) 01/17/21 16:41 Results - Labs CBC & Chem 7: 01/27/21 04:22 01/27/21 04:22 Labs: Laboratory Last Values WBC 6.9 K/mm3 (4.5-11.0) 01/27/21 04:22 RBC 5.15 M/mm3 (3.65-5.03) H 01/27/21 04:22 Hgb 11.9 gm/dl (10.1-14.3) 01/27/21 04:22 Hct 39.1 % (30.3-42.9) 01/27/21 04:22 MCV 76 fl (79-97) L 01/27/21 04:22 MCH 23 pg (28-32) L 01/27/21 04:22 MCHC 30 % (30-34) 01/27/21 04:22 RDW 15.5 % (13.2-15.2) H 01/27/21 04:22 Plt Count 227 K/mm3 (140-440) 01/27/21 04:22 Lymph % (Auto) 12.7 % (13.4-35.0) L 01/27/21 04:22 Cuming % (Auto) 5.3 % (0.0-7.3) 01/27/21 04:22 Eos % (Auto) 0.5 % (0.0-4.3) 01/27/21 04:22 Baso % (Auto) 0.2 % (0.0-1.8) 01/27/21 04:22 Lymph # (Auto) 0.9 K/mm3 (1.2-5.4) L 01/27/21 04:22 Cuming # (Auto) 0.4 K/mm3 (0.0-0.8) 01/27/21 04:22 Eos # (Auto) 0.0 K/mm3 (0.0-0.4) 01/27/21 04:22 Baso # (Auto) 0.0 K/mm3 (0.0-0.1) 01/27/21 04:22 Add Manual Diff Complete 01/19/21 05:11 Total Counted 100 01/19/21 05:11 Seg Neutrophils % 81.3 % (40.0-70.0) H 01/27/21 04:22 Seg Neuts % (Manual) 88.0 % (40.0-70.0) H 01/19/21 05:11 Lymphocytes % (Manual) 10.0 % (13.4-35.0) L 01/19/21 05:11 Monocytes % (Manual) 2.0 % (0.0-7.3) 01/19/21 05:11 Nucleated RBC % Not Reportable 01/19/21 05:11 Seg Neutrophils # 5.6 K/mm3 (1.8-7.7) 01/27/21 04:22 Seg Neutrophils # Man 12.5 K/mm3 (1.8-7.7) H 01/19/21 05:11 Band Neutrophils # 0.0 K/mm3 01/19/21 05:11 Lymphocytes # (Manual) 1.4 K/mm3 (1.2-5.4) 01/19/21 05:11 Abs React Lymphs (Man) 0.0 K/mm3 01/19/21 05:11 Monocytes # (Manual) 0.3 K/mm3 (0.0-0.8) 01/19/21 05:11 Eosinophils # (Manual) 0.0 K/mm3 (0.0-0.4) 01/19/21 05:11 Basophils # (Manual) 0.0 K/mm3 (0.0-0.1) 01/19/21 05:11 Metamyelocytes # 0.0 K/mm3 01/19/21 05:11 Myelocytes # 0.0 K/mm3 01/19/21 05:11 Promyelocytes # 0.0 K/mm3 01/19/21 05:11 Blast Cells # 0.0 K/mm3 01/19/21 05:11 WBC Morphology Not Reportable 01/19/21 05:11 Hypersegmented Neuts Not Reportable 01/19/21 05:11 Hyposegmented Neuts Not Reportable 01/19/21 05:11 Hypogranular Neuts Not Reportable 01/19/21 05:11 Smudge Cells Not Reportable 01/19/21 05:11 Toxic Granulation Not Reportable 01/19/21 05:11 Toxic Vacuolation Not Reportable 01/19/21 05:11 Dohle Bodies Not Reportable 01/19/21 05:11 Pelger-Huet Anomaly Not Reportable 01/19/21 05:11 Inder Rods Not Reportable 01/19/21 05:11 Platelet Estimate Consistent w auto 01/19/21 05:11 Clumped Platelets Not Reportable 01/19/21 05:11 Plt Clumps, EDTA Not Reportable 01/19/21 05:11 Large Platelets Not Reportable 01/19/21 05:11 Giant Platelets Not Reportable 01/19/21 05:11 Platelet Satelliting Not Reportable 01/19/21 05:11 Plt Morphology Comment Not Reportable 01/19/21 05:11 RBC Morphology Not Reportable 01/19/21 05:11 Dimorphic RBCs Not Reportable 01/19/21 05:11 Polychromasia Not Reportable 01/19/21 05:11 Hypochromasia 1+ 01/19/21 05:11 Poikilocytosis Not Reportable 01/19/21 05:11 Anisocytosis Not Reportable 01/19/21 05:11 Microcytosis Not Reportable 01/19/21 05:11 Macrocytosis Not Reportable 01/19/21 05:11 Spherocytes Not Reportable 01/19/21 05:11 Pappenheimer Bodies Not Reportable 01/19/21 05:11 Sickle Cells Not Reportable 01/19/21 05:11 Target Cells Not Reportable 01/19/21 05:11 Tear Drop Cells Not Reportable 01/19/21 05:11 Ovalocytes Not Reportable 01/19/21 05:11 Helmet Cells Not Reportable 01/19/21 05:11 Navarro-Emmett Bodies Not Reportable 01/19/21 05:11 [place] Rings Not Reportable 01/19/21 05:11 Giorgio Cells Not Reportable 01/19/21 05:11 Bite Cells Not Reportable 01/19/21 05:11 Crenated Cell Not Reportable 01/19/21 05:11 Elliptocytes Not Reportable 01/19/21 05:11 Acanthocytes (Spur) Not Reportable 01/19/21 05:11 Rouleaux Not Reportable 01/19/21 05:11 Hemoglobin C Crystals Not Reportable 01/19/21 05:11 Schistocytes Not Reportable 01/19/21 05:11 Malaria parasites Not Reportable 01/19/21 05:11 Chai Bodies Not Reportable 01/19/21 05:11 Hem Pathologist Commnt No 01/19/21 05:11 D-Dimer 1884.49 ng/mlDDU (0-234) H 01/28/21 08:46 ABG pH 7.461 pH Units (7.350-7.450) H 01/18/21 17:18 ABG pCO2 36.6 mm Hg 01/18/21 17:18 ABG pO2 53.1 mm Hg (80.0-90.0) L 01/18/21 17:18 ABG HCO3 25.5 mmol/L (20.0-26.0) 01/18/21 17:18 ABG O2 Saturation 89.4 % (95.0-99.0) L 01/18/21 17:18 ABG O2 Content 15.1 (0.0-44) 01/18/21 17:18 ABG Base Excess 1.9 mmol/L (-2.0-3.0) 01/18/21 17:18 ABG Hemoglobin 12.2 gm/dl (12.0-16.0) 01/18/21 17:18 ABG Carboxyhemoglobin 1.2 % (0.0-5.0) 01/18/21 17:18 ABG Methemoglobin 0.5 % (0.0-1.5) 01/18/21 17:18 Oxyhemoglobin 88.0 % (95.0-99.0) L 01/18/21 17:18 FiO2 100 % 01/18/21 17:18 Sodium 145 mmol/L (137-145) 01/27/21 04:22 Potassium 4.4 mmol/L (3.6-5.0) 01/27/21 04:22 Chloride 107.7 mmol/L (98-107) H 01/27/21 04:22 Carbon Dioxide 27 mmol/L (22-30) 01/27/21 04:22 Anion Gap 15 mmol/L 01/27/21 04:22 BUN 30 mg/dL (7-17) H 01/27/21 04:22 Creatinine 0.7 mg/dL (0.6-1.2) 01/27/21 04:22 Estimated GFR > 60 ml/min 01/27/21 04:22 BUN/Creatinine Ratio 43 % 01/27/21 04:22 Glucose 281 mg/dL (65-100) H 01/27/21 04:22 POC Glucose 191 mg/dL (70-105) H 01/28/21 08:44 Lactic Acid 1.70 mmol/L (0.7-2.0) 01/17/21 16:41 Calcium 8.4 mg/dL (8.4-10.2) 01/27/21 04:22 Ferritin 797.7 ng/mL (10.0-200.0) H 01/28/21 08:46 Total Bilirubin 0.30 mg/dL (0.1-1.2) 01/21/21 11:29 AST 34 units/L (5-40) 01/21/21 11:29 ALT 38 units/L (7-56) 01/21/21 11:29 Alkaline Phosphatase 117 units/L (35-129) 01/21/21 11:29 Lactate Dehydrogenase 556 units/L (91-180) H 01/28/21 08:46 Troponin T < 0.010 ng/mL (0.00-0.029) 01/17/21 16:41 C-Reactive Protein 0.20 mg/dL (0.00-1.30) 01/28/21 08:46 NT-Pro-B Natriuret Pep 40.88 pg/mL (0-900) 01/17/21 16:41 Total Protein 7.3 g/dL (6.3-8.2) 01/21/21 11:29 Albumin 3.4 g/dL (3.9-5) L 01/21/21 11:29 Albumin/Globulin Ratio 0.9 % 01/21/21 11:29 Procalcitonin 0.39 ng/mL (<0.15) 01/17/21 17:46 Coronavirus (PCR) Positive (Negative) A 01/17/21 09:25 Estrada/IV: Voiding Method External Female Catheter Active Medications - Current Medications Current Medications: Generic Name Dose Route Start Last Admin Trade Name Freq PRN Reason Stop Dose Admin Acetaminophen 650 mg 01/18/21 00:36 01/22/21 23:46 Acetaminophen 325 Mg Tab PO 650 mg Q4H PRN Administration Pain MILD(1-3)/Fever >100.5/PAN Albuterol/Ipratropium 1 ampul 01/18/21 02:00 01/28/21 08:35 Ipratropium/Albuterol Sulfate 3 Ml Ampul.Neb IH 1 ampul Q6HRT PJ Administration Amlodipine Besylate 5 mg 01/24/21 15:00 01/28/21 09:00 Amlodipine 5 Mg Tab PO Not Given QDAY [facility] Dexamethasone 6 mg 01/20/21 10:00 01/28/21 09:01 Dexamethasone 4 Mg/Ml Vial IV 01/28/21 22:01 6 mg BID PJ Administration Enoxaparin Sodium 100 mg 01/21/21 10:00 01/28/21 09:01 Enoxaparin 100 Mg/1 Ml Inj 1 mg/kg (100 mg) 100 mg SUB-Q Administration Q12HR [facility] Protocol Famotidine 20 mg 01/18/21 10:00 01/28/21 09:02 Famotidine 20 Mg Tab PO Not Given BID PJ Haloperidol 1 mg 01/24/21 12:12 01/28/21 09:01 Haloperidol 1 Mg Tab PO Not Given BID PJ Hydralazine HCl 10 mg 01/18/21 00:38 01/24/21 23:12 Hydralazine 20 Mg/1 Ml Inj IV 10 mg Q6H PRN Administration htn Hydromorphone HCl 0.5 mg 01/20/21 11:00 Hydromorphone 1 Mg/1 Ml Inj IV Q6H PRN Pain , Severe (7-10) Insulin Glargine 20 units 01/20/21 22:00 01/27/21 21:20 Insulin Glargine 100 Units/Ml SUB-Q 20 units QHS PJ Administration Insulin Glargine 20 units 01/24/21 10:00 01/28/21 09:02 Insulin Glargine 100 Units/Ml SUB-Q 20 units DAILY PJ Administration Insulin Human Lispro 0 unit 01/21/21 14:00 01/28/21 05:37 Insulin Lispro 100 Unit/Ml SUB-Q 4 unit Q4HR PJ Administration Protocol Mirtazapine 7.5 mg 01/21/21 22:00 01/27/21 21:19 Mirtazapine 15 Mg Tab PO 7.5 mg QHS PJ Administration Ondansetron HCl 4 mg 01/18/21 00:36 Ondansetron 4 Mg/2 Ml Inj IV Q8H PRN Nausea And Vomiting Sodium Chloride 10 ml 01/18/21 10:00 01/28/21 09:02 Sodium Chloride 0.9% 10 Ml Flush Syringe IV 10 ml BID PJ Administration Sodium Chloride 10 ml 01/18/21 00:36 Sodium Chloride 0.9% 10 Ml Flush Syringe IV PRN PRN LINE FLUSH Ziprasidone 10 mg 01/20/21 10:57 01/28/21 08:59 Ziprasidone Mesylate 20 Mg Vial IM 10 mg Q6H PRN Administration AGITATION Nutrition/Malnutrition Assess - Dietary Evaluation Nutrition/Malnutrition Findings: Nutrition Notes Start: 01/24/21 10:40 Freq: Status: Active Protocol: Document 01/24/21 10:40 (Rec: 01/24/21 10:52 MK [id number]) Nutrition Notes Need for Assessment generated from: LOS Initial or Follow up Assessment Current Diagnosis Respiratory Failure Other Pertinent Diagnosis pneu, COVID-19 Current Diet Cardiac Labs/Tests Na 149 BUN 24 BG 339 Pertinent Medications Insulin Decadron Height 5 ft 4 in Weight 89 kg [place] Body Weight (kg) 54.54 BMI 33.7 Weight Status Obese Subjective/Other Information Screen for LOS. Pt did not answer phone. Per RN, pt has poor appetite but drinks well. Burn Absent Trauma Absent Current % PO Poor (25-49%) Minimum of two criteria No Energy Intake (non-severe) <75% Estimated Energy Requirement >7 days #1 Nutrition Diagnosis Inadequate oral intake Etiology acute illness As Evidenced by Signs and Symptoms pt eating <25% of meals Is patient on ventilator? No Is Patient Ambulatory and/or Out of Bed No REE-([place]-confined to bed) 1762.308 Kcal/Kg value to use for calculation 15 Approximate Energy Requirements Using 1335 kcal/Kg Calculation Used for Recommendations Kcal/kg Additional Notes Protein: (0.8-1g/kg AdjBW: 72kg) 57-72g Fluid: 1 ml/kcal Nutrition Intervention Change Diet Order: add consistent CHO Add Supplement/Snack (indicate name/kcal Glucerna TID /protein ) Provides kCal: 660 Provides Protein (gm) 30 Goal #1 Meet at least 75% of protein and energy needs via PO and ONS intakes Anticipated Discharge Needs: Cardiac, consistent CHO Follow-Up By: 01/28/21 Additional Comments FU for intakes and ONS tolerance
--- NOTE | 2021-01-28 12:54 | Progress Note ---
Assessment and Plan Cultures: COVID-19 PCR: Positive 01/17/2021 blood culture: No growth A/P: 55-year-old female past medical history schizophrenia admitted to hospital with COVID-19. #Severe COVID-19 pneumonia: Inflammatory markers elevated. No evidence of pulmonary embolism on CT. s/p abx, completed remdesivir, s/p Actemra on 01/20/2021 #Acute hypoxemic respiratory failure: secondary to COVID-19 infection. On HFNC. #Obesity Recs: -Continue Decadron per pulm, agree with higher dose due to obesity, may wean after completing 10 days -s/p abx, completed remdesivir, s/p Actemra on 01/20/2021 -Anticoagulation per protocol. d-dimer downtrending -prone as tolerated Aiden Torres MD, FACP [facility], [place], [facility] O: [phone] F: [phone] Subjective Date of service: 01/28/21 Principal diagnosis: Covid-19 Interval history: No fever. Remains on HFNC. Objective - Exam Narrative Exam: Physical Exam (reviewed in chart to minimize risk of transmission) Constitutional: deferred Head, Ears, Nose: deferred Eyes: deferred Neck: deferred Oral: deferred Cardiovascular: deferred Respiratory: deferred GI: deferred Musculoskeletal: deferred Skin: deferred Hem/Lymphatic: deferred Psych: deferred Neurological: deferred - Constitutional Vitals: Vital Signs Temp Pulse Resp BP Pulse Ox 98.1 F 109 H 22 158/75 87 01/28/21 03:50 01/28/21 12:00 01/28/21 12:00 01/28/21 12:00 01/28/21 12:00 Temperature -Last 24 Hours Temperature 98.1 F Temperature 98.2 F Temperature 99.8 F Temperature 98.8 F - Labs CBC & Chem 7: 01/27/21 04:22 01/27/21 04:22 Labs: Abnormal lab results 01/27/21 01/27/21 01/28/21 Range/Units 17:32 21:23 02:08 D-Dimer (0-234) ng/mlDDU POC Glucose 195 H 179 H 210 H (70-105) mg/dL Ferritin (10.0-200.0) ng/mL Lactate Dehydrogenase (91-180) units/L 01/28/21 01/28/21 01/28/21 Range/Units 05:09 08:44 08:46 D-Dimer 1884.49 H (0-234) ng/mlDDU POC Glucose 202 H 191 H (70-105) mg/dL Ferritin (10.0-200.0) ng/mL Lactate Dehydrogenase (91-180) units/L 01/28/21 01/28/21 Range/Units 08:46 08:46 D-Dimer (0-234) ng/mlDDU POC Glucose (70-105) mg/dL Ferritin 797.7 H (10.0-200.0) ng/mL Lactate Dehydrogenase 556 H (91-180) units/L
[2021-01-28] MEDS: MIRTAZAPINE 15 MG TAB PO SCH (22:05)
[2021-01-29] MEDS: IPRATROPIUM/ALBUTEROL SULFATE 3 ML AMPUL.NEB IH SCH ×4 (01:35→20:41)
[2021-01-29] MEDS: INSULIN LISPRO 100 UNIT/ML SUB-Q SCH ×7 (02:30→22:01)
--- NOTE | 2021-01-29 09:59 | Progress Note ---
Assessment and Plan Assessment and plan: This is a 55-year-old female with schizophrenia who presented to [facility] on 01/18 for shortness of breath, cough, subjective fever and not feeling well for the last couple days with known COVID-19 exposure. While in the emergency room patient was switched from non rebreather mask to high flow nasal cannula and his CTA chest showed no acute pulmonary embolism. Patient was admitted to the hospital service as a COVID-19 PUI with consults to CCM, infectious disease, psych. Severe COVID-19 pneumonia Acute hypoxic respiratory failure Obesity Schizophrenia Leukocytosis Hyperglycemia Schizophrenia Hypernatremia Hypercholermia -CCM, infectious disease, psychiatry consulted, appreciate recommendations -COVID-19 PCR positive -Droplet/contact isolation -Remdesivir, azithromycin, ceftriaxone, dexamethasone (twice daily dosing) -s/p Actemra -Wean supplemental oxygen as tolerated, pulmonary hygiene -Prone as tolerated -Trend COVID-19 inflammatory markers for risk stratification, CBC, CMP -SSI, Lantus -01/18 bilateral lower extremity Doppler ultrasound negative for DVT -01/17 CTA shows no evidence of pulmonary embolism, extensive bilateral pneumonia, hepatomegaly with hepatic steatosis 01/18/2021 -Acute hypoxic respiratory failure requiring high flow oxygen 40 L. Nebulizer treatment -Patient is admitted for suspected Covid pneumonia. Patient is on dexamethasone, COVID-19 test is pending. Patient is on empiric antibiotics. -ID consulted, will consult pulmonary. -Patient has hyponatremia yesterday and I will repeat and if it is low I will manage accordingly -Patient has elevated D-dimer and CTA chest and bilateral Doppler ultrasound of the lower extremities pending 01/19/2021 -Acute hypoxic respiratory failure currently on BiPAP, nebulizer treatment. I will put in orders to transfer to [facility] yesterday but there was no bed. -Patient is positive for Covid and she is on Decadron and remdesivir. Actemra was ordered on 01/19/2021 -ID evaluated the patient and recommend to continue Decadron and remdesivir, also to continue ceftriaxone and azithromycin for 5 days because of the elevated procalcitonin level. Pulmonary was consulted and recommend to continue current management and add Lasix -CTA chest was done and significant for bilateral pulmonary opacities, negative for PE, Doppler ultrasound of the lower extremities was negative for DVT. -Prognosis is guarded. -Patient is currently on BiPAP and she was agitated and trying to take off the BiPAP, I put the patient on restraints. Discussed with warehouse laborer to transfer the patient to IMCU and if there is no bed she need to be transferred to CCU. 01/20: Patient received 5 mg of Haldol for severe agitation and refusal to keep high flow nasal cannula in place. [facility] ordered Lasix again. Psych was consulted today. Patient was on BiPAP therapy all night and RT attempted to give her a break patient is on high flow nasal cannula however she did not keep this in place and was paced back on BiPAP after receiving Haldol. She was started on Lantus today. 01/21: Patient is on BiPAP and on time examination was on 20/10 100% FiO2. Patient was started on Lantus. Psych consult completed and started on Haldol p.o. twice daily and Mirtazepin PO daily. No acute events reported overnight. Patient's D-dimer is greater than 10,000 started on prophylactic Lovenox as recent CTA chest and bilateral lower extremity Doppler ultrasound were negative. 01/22: Patient has been taken off BiPAP therapy and placed on high flow nasal cannula. Patient has been downgraded to IMCU. Patient's hyponatremia and hypochloremia have worsened. 01/23: Patient was on BiPAP overnight with FiO2 85% and IPAP 20/EPAP 10. Patient currently with high flow nasal cannula 40 L O2 with an FiO2 of 100%. Continue remdesivir and dexamethasone. Patient is s/p Actemra on 01/20. Continue empiric antibiotics per ID recommendations. Continue anticoagulation per protocol. 01/24: Patient is tachycardic and hypertensive and [facility] has opted to add amlo dipine. Patient remains on 40 L 100% high flow nasal cannula. Continue remdesivir and dexamethasone. Patient is s/p Actemra on 01/20. Continue empiric antibiotics per ID recommendations. Continue anticoagulation per protocol. 01/25: Patient currently with high flow nasal cannula 40 L/min with FiO2 100%. Continue dexamethasone. Patient has completed remdesivir and s/p Actemra on 01/20. Continue full dose anticoagulation given high elevated D-dimer. Continue to trend inflammatory markers. Prognosis remains guarded. 01/26: Patient currently with high flow nasal cannula 35 L/min and FiO2 90%. Continue dexamethasone. Patient has completed remdesivir and s/p Actemra on 01/20. Continue full dose anticoagulation given high elevated D-dimer. Continue to trend inflammatory markers. Prognosis remains guarded. 01/27: Patient currently with high flow nasal cannula/Vapotherm 35 L/min O2 with F iO2 90%. Patient has completed remdesivir and s/p Actemra on 01/20. Continue full dose anticoagulation given high elevated D-dimer. Continue to trend inflammatory markers. Prognosis remains guarded. 01/28; Patient currently with high flow nasal cannula/Vapotherm 35 L/min O2 with FiO2 90%. Patient has completed remdesivir and s/p Actemra on 01/20. Continue full dose anticoagulation given high elevated D-dimer. Continue to trend inflammatory markers. Prognosis remains guarded. 01/29; patient is currently on 35 L of high flow oxygen. Prognosis guarded. Patient can be transferred to regular floor. History Interval history: Patient was seen and evaluated this morning Patient was on high flow oxygen 35 L Patient was calm and cooperative Per patient's nurse, patient was agitated and on restraints Hospitalist Physical - Physical exam Narrative exam: Patient was on 35 L high flow oxygen The patient appeared well nourished and normally developed. Vital signs as documented. Head exam is unremarkable. No scleral icterus . Neck is without jugular venous distension, thyromegaly, or carotid bruits. Lungs decreased air entry on both lungs Cardiac exam reveals regular rate and Rhythm. Abdominal exam reveals normal bowel sounds, nontender, no organomegaly. Extremities are nonedematous and both femoral and pedal pulses are normal. BUSINESS PLANNER: Patient was calm and cooperative. - Constitutional Vitals: Temp Pulse Resp BP Pulse Ox 98.2 F 76 16 131/82 95 01/29/21 08:00 01/29/21 08:40 01/29/21 08:40 01/29/21 08:00 01/29/21 08:40 General appearance: Present: no acute distress, well-nourished HEART Score - HEART Score Troponin: Troponin T < 0.010 ng/mL (0.00-0.029) 01/17/21 16:41 Results - Labs CBC & Chem 7: 01/27/21 04:22 01/27/21 04:22 Labs: Laboratory Last Values WBC 6.9 K/mm3 (4.5-11.0) 01/27/21 04:22 RBC 5.15 M/mm3 (3.65-5.03) H 01/27/21 04:22 Hgb 11.9 gm/dl (10.1-14.3) 01/27/21 04:22 Hct 39.1 % (30.3-42.9) 01/27/21 04:22 MCV 76 fl (79-97) L 01/27/21 04:22 MCH 23 pg (28-32) L 01/27/21 04:22 MCHC 30 % (30-34) 01/27/21 04:22 RDW 15.5 % (13.2-15.2) H 01/27/21 04:22 Plt Count 227 K/mm3 (140-440) 01/27/21 04:22 Lymph % (Auto) 12.7 % (13.4-35.0) L 01/27/21 04:22 [place] % (Auto) 5.3 % (0.0-7.3) 01/27/21 04:22 Eos % (Auto) 0.5 % (0.0-4.3) 01/27/21 04:22 Baso % (Auto) 0.2 % (0.0-1.8) 01/27/21 04:22 Lymph # (Auto) 0.9 K/mm3 (1.2-5.4) L 01/27/21 04:22 [place] # (Auto) 0.4 K/mm3 (0.0-0.8) 01/27/21 04:22 Eos # (Auto) 0.0 K/mm3 (0.0-0.4) 01/27/21 04:22 Baso # (Auto) 0.0 K/mm3 (0.0-0.1) 01/27/21 04:22 Add Manual Diff Complete 01/19/21 05:11 Total Counted 100 01/19/21 05:11 Seg Neutrophils % 81.3 % (40.0-70.0) H 01/27/21 04:22 Seg Neuts % (Manual) 88.0 % (40.0-70.0) H 01/19/21 05:11 Lymphocytes % (Manual) 10.0 % (13.4-35.0) L 01/19/21 05:11 Monocytes % (Manual) 2.0 % (0.0-7.3) 01/19/21 05:11 Nucleated RBC % Not Reportable 01/19/21 05:11 Seg Neutrophils # 5.6 K/mm3 (1.8-7.7) 01/27/21 04:22 Seg Neutrophils # Man 12.5 K/mm3 (1.8-7.7) H 01/19/21 05:11 Band Neutrophils # 0.0 K/mm3 01/19/21 05:11 Lymphocytes # (Manual) 1.4 K/mm3 (1.2-5.4) 01/19/21 05:11 Abs React Lymphs (Man) 0.0 K/mm3 01/19/21 05:11 Monocytes # (Manual) 0.3 K/mm3 (0.0-0.8) 01/19/21 05:11 Eosinophils # (Manual) 0.0 K/mm3 (0.0-0.4) 01/19/21 05:11 Basophils # (Manual) 0.0 K/mm3 (0.0-0.1) 01/19/21 05:11 Metamyelocytes # 0.0 K/mm3 01/19/21 05:11 Myelocytes # 0.0 K/mm3 01/19/21 05:11 Promyelocytes # 0.0 K/mm3 01/19/21 05:11 Blast Cells # 0.0 K/mm3 01/19/21 05:11 WBC Morphology Not Reportable 01/19/21 05:11 Hypersegmented Neuts Not Reportable 01/19/21 05:11 Hyposegmented Neuts Not Reportable 01/19/21 05:11 Hypogranular Neuts Not Reportable 01/19/21 05:11 Smudge Cells Not Reportable 01/19/21 05:11 Toxic Granulation Not Reportable 01/19/21 05:11 Toxic Vacuolation Not Reportable 01/19/21 05:11 Dohle Bodies Not Reportable 01/19/21 05:11 Pelger-Huet Anomaly Not Reportable 01/19/21 05:11 Inder Rods Not Reportable 01/19/21 05:11 Platelet Estimate Consistent w auto 01/19/21 05:11 Clumped Platelets Not Reportable 01/19/21 05:11 Plt Clumps, EDTA Not Reportable 01/19/21 05:11 Large Platelets Not Reportable 01/19/21 05:11 Giant Platelets Not Reportable 01/19/21 05:11 Platelet Satelliting Not Reportable 01/19/21 05:11 Plt Morphology Comment Not Reportable 01/19/21 05:11 RBC Morphology Not Reportable 01/19/21 05:11 Dimorphic RBCs Not Reportable 01/19/21 05:11 Polychromasia Not Reportable 01/19/21 05:11 Hypochromasia 1+ 01/19/21 05:11 Poikilocytosis Not Reportable 01/19/21 05:11 Anisocytosis Not Reportable 01/19/21 05:11 Microcytosis Not Reportable 01/19/21 05:11 Macrocytosis Not Reportable 01/19/21 05:11 Spherocytes Not Reportable 01/19/21 05:11 Pappenheimer Bodies Not Reportable 01/19/21 05:11 Sickle Cells Not Reportable 01/19/21 05:11 Target Cells Not Reportable 01/19/21 05:11 Tear Drop Cells Not Reportable 01/19/21 05:11 Ovalocytes Not Reportable 01/19/21 05:11 Helmet Cells Not Reportable 01/19/21 05:11 [place] Bodies Not Reportable 01/19/21 05:11 [place] Rings Not Reportable 01/19/21 05:11 Giorgio Cells Not Reportable 01/19/21 05:11 Bite Cells Not Reportable 01/19/21 05:11 Crenated Cell Not Reportable 01/19/21 05:11 Elliptocytes Not Reportable 01/19/21 05:11 Acanthocytes (Spur) Not Reportable 01/19/21 05:11 Rouleaux Not Reportable 01/19/21 05:11 Hemoglobin C Crystals Not Reportable 01/19/21 05:11 Schistocytes Not Reportable 01/19/21 05:11 Malaria parasites Not Reportable 01/19/21 05:11 Chai Bodies Not Reportable 01/19/21 05:11 Hem Pathologist Commnt No 01/19/21 05:11 D-Dimer 1884.49 ng/mlDDU (0-234) H 01/28/21 08:46 ABG pH 7.461 pH Units (7.350-7.450) H 01/18/21 17:18 ABG pCO2 36.6 mm Hg 01/18/21 17:18 ABG pO2 53.1 mm Hg (80.0-90.0) L 01/18/21 17:18 ABG HCO3 25.5 mmol/L (20.0-26.0) 01/18/21 17:18 ABG O2 Saturation 89.4 % (95.0-99.0) L 01/18/21 17:18 ABG O2 Content 15.1 (0.0-44) 01/18/21 17:18 ABG Base Excess 1.9 mmol/L (-2.0-3.0) 01/18/21 17:18 ABG Hemoglobin 12.2 gm/dl (12.0-16.0) 01/18/21 17:18 ABG Carboxyhemoglobin 1.2 % (0.0-5.0) 01/18/21 17:18 ABG Methemoglobin 0.5 % (0.0-1.5) 01/18/21 17:18 Oxyhemoglobin 88.0 % (95.0-99.0) L 01/18/21 17:18 FiO2 100 % 01/18/21 17:18 Sodium 145 mmol/L (137-145) 01/27/21 04:22 Potassium 4.4 mmol/L (3.6-5.0) 01/27/21 04:22 Chloride 107.7 mmol/L (98-107) H 01/27/21 04:22 Carbon Dioxide 27 mmol/L (22-30) 01/27/21 04:22 Anion Gap 15 mmol/L 01/27/21 04:22 BUN 30 mg/dL (7-17) H 01/27/21 04:22 Creatinine 0.7 mg/dL (0.6-1.2) 01/27/21 04:22 Estimated GFR > 60 ml/min 01/27/21 04:22 BUN/Creatinine Ratio 43 % 01/27/21 04:22 Glucose 281 mg/dL (65-100) H 01/27/21 04:22 POC Glucose 256 mg/dL (70-105) H 01/29/21 05:17 Lactic Acid 1.70 mmol/L (0.7-2.0) 01/17/21 16:41 Calcium 8.4 mg/dL (8.4-10.2) 01/27/21 04:22 Ferritin 797.7 ng/mL (10.0-200.0) H 01/28/21 08:46 Total Bilirubin 0.30 mg/dL (0.1-1.2) 01/21/21 11:29 AST 34 units/L (5-40) 01/21/21 11:29 ALT 38 units/L (7-56) 01/21/21 11:29 Alkaline Phosphatase 117 units/L (35-129) 01/21/21 11:29 Lactate Dehydrogenase 556 units/L (91-180) H 01/28/21 08:46 Troponin T < 0.010 ng/mL (0.00-0.029) 01/17/21 16:41 C-Reactive Protein 0.20 mg/dL (0.00-1.30) 01/28/21 08:46 NT-Pro-B Natriuret Pep 40.88 pg/mL (0-900) 01/17/21 16:41 Total Protein 7.3 g/dL (6.3-8.2) 01/21/21 11:29 Albumin 3.4 g/dL (3.9-5) L 01/21/21 11:29 Albumin/Globulin Ratio 0.9 % 01/21/21 11:29 Procalcitonin 0.39 ng/mL (<0.15) 01/17/21 17:46 Coronavirus (PCR) Positive (Negative) A 01/17/21 09:25 Estrada/IV: Voiding Method External Female Catheter Active Medications - Current Medications Current Medications: Generic Name Dose Route Start Last Admin Trade Name Freq PRN Reason Stop Dose Admin Acetaminophen 650 mg 01/18/21 00:36 01/22/21 23:46 Acetaminophen 325 Mg Tab PO 650 mg Q4H PRN Administration Pain MILD(1-3)/Fever >100.5/PAN Albuterol/Ipratropium 1 ampul 01/18/21 02:00 01/29/21 08:40 Ipratropium/Albuterol Sulfate 3 Ml Ampul.Neb IH 1 ampul Q6HRT PJ Administration Amlodipine Besylate 5 mg 01/24/21 15:00 01/28/21 09:00 Amlodipine 5 Mg Tab PO Not Given QDAY [facility] Enoxaparin Sodium 100 mg 01/21/21 10:00 01/28/21 22:05 Enoxaparin 100 Mg/1 Ml Inj 1 mg/kg (100 mg) 100 mg SUB-Q Administration Q12HR [facility] Protocol Famotidine 20 mg 01/18/21 10:00 01/28/21 22:05 Famotidine 20 Mg Tab PO 20 mg BID PJ Administration Haloperidol 1 mg 01/24/21 12:12 01/28/21 22:05 Haloperidol 1 Mg Tab PO 1 mg BID PJ Administration Hydralazine HCl 10 mg 01/18/21 00:38 01/24/21 23:12 Hydralazine 20 Mg/1 Ml Inj IV 10 mg Q6H PRN Administration htn Hydromorphone HCl 0.5 mg 01/20/21 11:00 Hydromorphone 1 Mg/1 Ml Inj IV Q6H PRN Pain , Severe (7-10) Insulin Glargine 20 units 01/20/21 22:00 01/28/21 22:05 Insulin Glargine 100 Units/Ml SUB-Q 20 units QHS PJ Administration Insulin Glargine 20 units 01/24/21 10:00 01/28/21 09:02 Insulin Glargine 100 Units/Ml SUB-Q 20 units DAILY PJ Administration Insulin Human Lispro 0 unit 01/21/21 14:00 01/29/21 05:31 Insulin Lispro 100 Unit/Ml SUB-Q 6 unit Q4HR PJ Administration Protocol Mirtazapine 7.5 mg 01/21/21 22:00 01/28/21 22:05 Mirtazapine 15 Mg Tab PO 7.5 mg QHS PJ Administration Ondansetron HCl 4 mg 01/18/21 00:36 Ondansetron 4 Mg/2 Ml Inj IV Q8H PRN Nausea And Vomiting Sodium Chloride 10 ml 01/18/21 10:00 01/28/21 22:05 Sodium Chloride 0.9% 10 Ml Flush Syringe IV 10 ml BID PJ Administration Sodium Chloride 10 ml 01/18/21 00:36 Sodium Chloride 0.9% 10 Ml Flush Syringe IV PRN PRN LINE FLUSH Ziprasidone 10 mg 01/20/21 10:57 01/28/21 08:59 Ziprasidone Mesylate 20 Mg Vial IM 10 mg Q6H PRN Administration AGITATION Nutrition/Malnutrition Assess - Dietary Evaluation Nutrition/Malnutrition Findings: Nutrition Notes Start: 01/24/21 10:40 Freq: Status: Active Protocol: Document 01/28/21 14:05 AT (Rec: 01/28/21 14:17 AT [id number]) Co-Sign 01/28/21 14:05 CW Nutrition Notes Initial or Follow up Reassessment Current Diagnosis Respiratory Failure Other Pertinent Diagnosis pneu, COVID-19(+), AMS Current Diet Cardiac diet with Consistent CHO modifications Labs/Tests 01/27 BUN 30 POC BG 210 Pertinent Medications Decadron Lantus Humalog Remeron Height 5 ft 4 in Weight 92.9 kg [place] Body Weight (kg) 54.54 BMI 35.2 Weight Status Obese Subjective/Other Information Follow up for intakes and ONS tolerance. Per RN, pt consumed 100% of breakfast and >75% of lunch; RN is uncertain whether pt is drinking ONS, but there was one empty bottle found in room. Will continue to monitor pt for intakes and BG levels. Percent of energy/protein needs met: 98%/100% Burn Absent Trauma Absent Current % PO Good (75-100%) Minimum of two criteria No Energy Intake (non-severe) <75% Estimated Energy Requirement >7 days #1 Nutrition Diagnosis Inadequate oral intake As Evidenced by Signs and Symptoms pt consuming 87.5% of meals and some of ONS Diagnosis Progress(for reassessment Improved documentation) Is patient on ventilator? No Is Patient Ambulatory and/or Out of Bed No REE-([facility]-confined to bed) 1809.060 Kcal/Kg value to use for calculation 15 Approximate Energy Requirements Using 1394 kcal/Kg Calculation Used for Recommendations Kcal/kg Additional Notes PRO needs: 59-74 g(0.8-1 g/kg AdBW 74 kg) Fluid needs: 1mL/kcal Nutrition Intervention Change Diet Order: Continue Cardiac with Consistent CHO modifications Add Supplement/Snack (indicate name/kcal Glucerna BID /protein ) Provides kCal: 440 Provides Protein (gm) 20 Goal #1 Meet at least 75% of energy and protein needs via PO and ONS intakes Anticipated Discharge Needs: Cardiac/Consistent CHO Follow-Up By: 01/31/21 Additional Comments F/U for stable intakes and ONS tolerance
--- NOTE | 2021-01-29 10:58 | Progress Note ---
Assessment and Plan 55 y/o female admitted with acute respiratory failure secondary to pneumonia, positive for Sars CoV2 01/29/21: Will give lasix again today. Will change Haldol to IM since patient is refusing PO meds. 01/28/21: Will give lasix again today. Continue all other therapies. Prone if patient will and tolerate. STeroids. Guarded prognosis. 01/20/21: Gave Haldol 5 and patient has calmed down and become more appropriate, allowing us to place bipap back on. COntinue steroids and remdesivir therapy. Doubt patient will be able to prone successfully. Will try lasix today again to see if this helps. Very very guarded prognosis. 01/19/21: Continue decadron, suggest increase given patient body habitus to BID. ID consult for Remdesivir therapy and to see if she is a candidate for Actemra. Prone as tolerated during the day and sleep prone at night. Will give lasix again today. Guarded prognosis. 1. Prone 2. Lasix 3. Agree with steroids 4. Follow up COVID testing Guarded prognosis Subjective Date of service: 01/29/21 Principal diagnosis: Covid-19 Interval history: No acute events. Down to 65% and 30 liters. Objective Vital Signs - 12hr 01/28/21 01/29/21 01/29/21 23:00 00:00 00:12 Temperature 98.8 F Pulse Rate 72 89 73 Pulse Rate [ Anterior Bilateral Throughout] Pulse Rate [ 89 From Monitor] Respiratory 19 18 20 Rate Respiratory Rate [Anterior Bilateral Throughout] Blood Pressure 143/73 123/68 123/68 O2 Sat by Pulse 95 89 94 Oximetry 01/29/21 01/29/21 01/29/21 01:00 01:36 02:00 Temperature Pulse Rate 90 90 Pulse Rate [ 77 Anterior Bilateral Throughout] Pulse Rate [ From Monitor] Respiratory 18 16 Rate Respiratory 20 Rate [Anterior Bilateral Throughout] Blood Pressure 122/72 115/74 O2 Sat by Pulse 92 96 Oximetry 01/29/21 01/29/21 01/29/21 03:00 03:42 04:00 Temperature 98.4 F Pulse Rate 84 77 Pulse Rate [ Anterior Bilateral Throughout] Pulse Rate [ 77 From Monitor] Respiratory 20 16 Rate Respiratory Rate [Anterior Bilateral Throughout] Blood Pressure 105/61 111/66 O2 Sat by Pulse 94 97 Oximetry 05/02/1401/29/21 01/29/21 05:00 06:00 07:00 Temperature Pulse Rate 78 77 72 Pulse Rate [ Anterior Bilateral Throughout] Pulse Rate [ From Monitor] Respiratory 16 20 20 Rate Respiratory Rate [Anterior Bilateral Throughout] Blood Pressure 103/68 137/75 135/71 O2 Sat by Pulse 97 97 98 Oximetry 01/29/21 01/29/21 08:00 08:40 Temperature 98.2 F Pulse Rate 75 Pulse Rate [ 76 Anterior Bilateral Throughout] Pulse Rate [ From Monitor] Respiratory 19 Rate Respiratory 16 Rate [Anterior Bilateral Throughout] Blood Pressure 131/82 O2 Sat by Pulse 98 95 Oximetry Constitutional: alert, other (critically ill on HFNC 100% FiO2) Eyes: non-icteric ENT: oropharynx moist Neck: supple, other (large in circumference) Effort: mildly labored Ascultation: Bilateral: clear Cardiovascular: other (tachy, RR; no mrg) Gastrointestinal: normoactive bowel sounds, soft, non-tender, non-distended Integumentary: normal Extremities: no cyanosis, no edema, pink and warm Neurologic: normal mental status, non-focal exam, pupils equal and round Psychiatric: mood appropriate, affect normal CBC and BMP: 01/27/21 04:22 01/27/21 04:22 ABG, PT/INR, D-dimer: ABG ABG pH 7.461 pH Units (7.350-7.450) H 01/18/21 17:18 ABG pCO2 36.6 mm Hg 01/18/21 17:18 ABG pO2 53.1 mm Hg (80.0-90.0) L 01/18/21 17:18 ABG O2 Saturation 89.4 % (95.0-99.0) L 01/18/21 17:18 PT/INR, D-dimer D-Dimer 1884.49 ng/mlDDU (0-234) H 01/28/21 08:46 Abnormal lab findings: Abnormal Labs 01/17/21 01/17/21 01/17/21 09:25 16:41 16:41 WBC RBC 5.23 H MCV 76 L MCH 24 L RDW Lymph % (Auto) 9.4 L Lymph # (Auto) 0.8 L Seg Neutrophils % 85.4 H Seg Neuts % (Manual) Lymphocytes % (Manual) Seg Neutrophils # Man D-Dimer ABG pH ABG pO2 ABG O2 Saturation Oxyhemoglobin Sodium 128 L Chloride 90.8 L Carbon Dioxide BUN Glucose 372 H POC Glucose Calcium Ferritin AST 98 H Lactate Dehydrogenase C-Reactive Protein Total Protein Albumin 3.2 L Coronavirus (PCR) Positive A 01/17/21 01/17/21 01/17/21 17:46 17:46 17:46 WBC RBC MCV MCH RDW Lymph % (Auto) Lymph # (Auto) Seg Neutrophils % Seg Neuts % (Manual) Lymphocytes % (Manual) Seg Neutrophils # Man D-Dimer 1058.54 H ABG pH ABG pO2 ABG O2 Saturation Oxyhemoglobin Sodium Chloride Carbon Dioxide BUN Glucose 369 H POC Glucose Calcium Ferritin 668.4 H AST Lactate Dehydrogenase 519 H C-Reactive Protein 19.20 H Total Protein Albumin Coronavirus (PCR) 01/18/21 01/18/21 01/19/21 09:01 17:18 05:11 WBC 14.2 H RBC MCV 74 L MCH 23 L RDW Lymph % (Auto) Lymph # (Auto) Seg Neutrophils % Seg Neuts % (Manual) 88.0 H Lymphocytes % (Manual) 10.0 L Seg Neutrophils # Man 12.5 H D-Dimer ABG pH 7.461 H ABG pO2 53.1 L ABG O2 Saturation 89.4 L Oxyhemoglobin 88.0 L Sodium 132 L Chloride 93.6 L Carbon Dioxide BUN 18 H Glucose 367 H POC Glucose Calcium 7.8 L Ferritin AST Lactate Dehydrogenase C-Reactive Protein Total Protein Albumin Coronavirus (PCR) 01/19/21 01/19/21 01/19/21 05:11 11:06 14:43 WBC RBC MCV MCH RDW Lymph % (Auto) Lymph # (Auto) Seg Neutrophils % Seg Neuts % (Manual) Lymphocytes % (Manual) Seg Neutrophils # Man D-Dimer ABG pH ABG pO2 ABG O2 Saturation Oxyhemoglobin Sodium Chloride Carbon Dioxide BUN 18 H Glucose 304 H 379 H POC Glucose 382 H Calcium 8.3 L Ferritin AST 92 H 96 H Lactate Dehydrogenase C-Reactive Protein Total Protein Albumin 3.0 L 3.0 L Coronavirus (PCR) 01/19/21 01/19/21 01/20/21 16:18 22:18 07:31 WBC RBC MCV MCH RDW Lymph % (Auto) Lymph # (Auto) Seg Neutrophils % Seg Neuts % (Manual) Lymphocytes % (Manual) Seg Neutrophils # Man D-Dimer ABG pH ABG pO2 ABG O2 Saturation Oxyhemoglobin Sodium Chloride Carbon Dioxide BUN Glucose POC Glucose 374 H 341 H 344 H Calcium Ferritin AST Lactate Dehydrogenase C-Reactive Protein Total Protein Albumin Coronavirus (PCR) 01/20/21 01/20/21 01/20/21 07:33 12:14 13:54 WBC RBC MCV MCH RDW Lymph % (Auto) Lymph # (Auto) Seg Neutrophils % Seg Neuts % (Manual) Lymphocytes % (Manual) Seg Neutrophils # Han D-Dimer ABG pH ABG pO2 ABG O2 Saturation Oxyhemoglobin Sodium Chloride Carbon Dioxide BUN 32 H 31 H Glucose 343 H 396 H POC Glucose 365 H Calcium Ferritin AST 57 H 54 H Lactate Dehydrogenase C-Reactive Protein Total Protein 8.3 H Albumin 2.7 L 3.1 L Coronavirus (PCR) 01/20/21 01/20/21 01/21/21 18:28 21:25 04:45 WBC RBC MCV MCH RDW Lymph % (Auto) Lymph # (Auto) Seg Neutrophils % Seg Neuts % (Manual) Lymphocytes % (Manual) Seg Neutrophils # Han D-Dimer ABG pH ABG pO2 ABG O2 Saturation Oxyhemoglobin Sodium Chloride Carbon Dioxide 31 H BUN 41 H Glucose 377 H POC Glucose 403 H 340 H Calcium Ferritin AST Lactate Dehydrogenase C-Reactive Protein Total Protein 8.3 H Albumin 3.0 L Coronavirus (PCR) 01/21/21 01/21/21 01/21/21 04:45 04:45 04:45 WBC RBC MCV MCH RDW Lymph % (Auto) Lymph # (Auto) Seg Neutrophils % Seg Neuts % (Manual) Lymphocytes % (Manual) Seg Neutrophils # Han D-Dimer > 25077 H ABG pH ABG pO2 ABG O2 Saturation Oxyhemoglobin Sodium Chloride Carbon Dioxide BUN Glucose POC Glucose Calcium Ferritin 1688.0 H AST Lactate Dehydrogenase 649 H C-Reactive Protein 17.00 H Total Protein Albumin Coronavirus (PCR) 01/21/21 01/21/21 01/21/21 09:45 11:29 12:09 WBC RBC MCV MCH RDW Lymph % (Auto) Lymph # (Auto) Seg Neutrophils % Seg Neuts % (Manual) Lymphocytes % (Manual) Seg Neutrophils # Han D-Dimer ABG pH ABG pO2 ABG O2 Saturation Oxyhemoglobin Sodium 151 H Chloride Carbon Dioxide BUN 40 H Glucose 412 H POC Glucose 401 H 372 H Calcium Ferritin AST Lactate Dehydrogenase C-Reactive Protein Total Protein Albumin 3.4 L Coronavirus (PCR) 01/21/21 01/21/21 01/22/21 18:26 21:09 02:00 WBC RBC MCV MCH RDW Lymph % (Auto) Lymph # (Auto) Seg Neutrophils % Seg Neuts % (Manual) Lymphocytes % (Manual) Seg Neutrophils # Man D-Dimer ABG pH ABG pO2 ABG O2 Saturation Oxyhemoglobin Sodium Chloride Carbon Dioxide BUN Glucose POC Glucose 376 H 322 H 231 H Calcium Ferritin AST Lactate Dehydrogenase C-Reactive Protein Total Protein Albumin Coronavirus (PCR) 01/22/21 01/22/21 01/22/21 05:24 08:25 08:25 WBC RBC 5.44 H MCV 75 L MCH 23 L RDW 15.5 H Lymph % (Auto) Lymph # (Auto) Seg Neutrophils % Seg Neuts % (Manual) Lymphocytes % (Manual) Seg Neutrophils # Man D-Dimer ABG pH ABG pO2 ABG O2 Saturation Oxyhemoglobin Sodium 155 H Chloride 112.4 H Carbon Dioxide BUN 33 H Glucose 274 H POC Glucose 275 H Calcium Ferritin AST Lactate Dehydrogenase C-Reactive Protein Total Protein Albumin Coronavirus (PCR) 01/22/21 01/22/21 01/22/21 11:53 16:03 21:41 WBC RBC MCV MCH RDW Lymph % (Auto) Lymph # (Auto) Seg Neutrophils % Seg Neuts % (Manual) Lymphocytes % (Manual) Seg Neutrophils # Man D-Dimer ABG pH ABG pO2 ABG O2 Saturation Oxyhemoglobin Sodium Chloride Carbon Dioxide BUN Glucose POC Glucose 265 H 293 H 279 H Calcium Ferritin AST Lactate Dehydrogenase C-Reactive Protein Total Protein Albumin Coronavirus (PCR) 01/23/21 01/23/21 01/23/21 02:03 05:46 05:59 WBC RBC MCV MCH RDW Lymph % (Auto) Lymph # (Auto) Seg Neutrophils % Seg Neuts % (Manual) Lymphocytes % (Manual) Seg Neutrophils # Man D-Dimer ABG pH ABG pO2 ABG O2 Saturation Oxyhemoglobin Sodium Chloride Carbon Dioxide BUN Glucose POC Glucose 268 H 303 H Calcium Ferritin 1116.0 H AST Lactate Dehydrogenase C-Reactive Protein Total Protein Albumin Coronavirus (PCR) 01/23/21 01/23/21 01/23/21 05:59 07:42 09:11 WBC RBC MCV MCH RDW Lymph % (Auto) Lymph # (Auto) Seg Neutrophils % Seg Neuts % (Manual) Lymphocytes % (Manual) Seg Neutrophils # Man D-Dimer ABG pH ABG pO2 ABG O2 Saturation Oxyhemoglobin Sodium Chloride Carbon Dioxide BUN Glucose POC Glucose 291 H 285 H Calcium Ferritin AST Lactate Dehydrogenase 680 H C-Reactive Protein 5.80 H Total Protein Albumin Coronavirus (PCR) 01/23/21 01/23/21 01/23/21 14:06 17:05 17:59 WBC RBC MCV MCH RDW Lymph % (Auto) Lymph # (Auto) Seg Neutrophils % Seg Neuts % (Manual) Lymphocytes % (Manual) Seg Neutrophils # Man D-Dimer ABG pH ABG pO2 ABG O2 Saturation Oxyhemoglobin Sodium Chloride Carbon Dioxide BUN Glucose POC Glucose 228 H 300 H 278 H Calcium Ferritin AST Lactate Dehydrogenase C-Reactive Protein Total Protein Albumin Coronavirus (PCR) 01/23/21 01/24/21 01/24/21 21:43 02:14 05:15 WBC RBC MCV MCH RDW Lymph % (Auto) Lymph # (Auto) Seg Neutrophils % Seg Neuts % (Manual) Lymphocytes % (Manual) Seg Neutrophils # Man D-Dimer ABG pH ABG pO2 ABG O2 Saturation Oxyhemoglobin Sodium Chloride Carbon Dioxide BUN Glucose POC Glucose 223 H 427 H 392 H Calcium Ferritin AST Lactate Dehydrogenase C-Reactive Protein Total Protein Albumin Coronavirus (PCR) 01/24/21 01/24/21 01/24/21 07:03 07:03 09:10 WBC RBC 5.49 H MCV 75 L MCH 23 L RDW Lymph % (Auto) 7.0 L Lymph # (Auto) 0.5 L Seg Neutrophils % 86.1 H Seg Neuts % (Manual) Lymphocytes % (Manual) Seg Neutrophils # Man D-Dimer ABG pH ABG pO2 ABG O2 Saturation Oxyhemoglobin Sodium 149 H Chloride 111.4 H Carbon Dioxide BUN 24 H Glucose 339 H POC Glucose 284 H Calcium Ferritin AST Lactate Dehydrogenase C-Reactive Protein Total Protein Albumin Coronavirus (PCR) 01/24/21 01/24/21 01/24/21 13:47 18:30 21:58 WBC RBC MCV MCH RDW Lymph % (Auto) Lymph # (Auto) Seg Neutrophils % Seg Neuts % (Manual) Lymphocytes % (Manual) Seg Neutrophils # Man D-Dimer ABG pH ABG pO2 ABG O2 Saturation Oxyhemoglobin Sodium Chloride Carbon Dioxide BUN Glucose POC Glucose 317 H 180 H 262 H Calcium Ferritin AST Lactate Dehydrogenase C-Reactive Protein Total Protein Albumin Coronavirus (PCR) 01/25/21 01/25/21 01/25/21 01:22 05:35 08:36 WBC RBC MCV MCH RDW Lymph % (Auto) Lymph # (Auto) Seg Neutrophils % Seg Neuts % (Manual) Lymphocytes % (Manual) Seg Neutrophils # Man D-Dimer ABG pH ABG pO2 ABG O2 Saturation Oxyhemoglobin Sodium Chloride Carbon Dioxide BUN Glucose POC Glucose 280 H 243 H 216 H Calcium Ferritin AST Lactate Dehydrogenase C-Reactive Protein Total Protein Albumin Coronavirus (PCR) 01/25/21 01/25/21 01/25/21 15:14 15:14 15:14 WBC RBC MCV MCH RDW Lymph % (Auto) Lymph # (Auto) Seg Neutrophils % Seg Neuts % (Manual) Lymphocytes % (Manual) Seg Neutrophils # Man D-Dimer 6312.54 H ABG pH ABG pO2 ABG O2 Saturation Oxyhemoglobin Sodium 146 H Chloride 108.1 H Carbon Dioxide BUN 19 H Glucose 287 H POC Glucose Calcium 8.3 L Ferritin 869.5 H AST Lactate Dehydrogenase 685 H C-Reactive Protein Total Protein Albumin Coronavirus (PCR) 01/25/21 01/25/21 01/26/21 16:06 21:18 01:47 WBC RBC MCV MCH RDW Lymph % (Auto) Lymph # (Auto) Seg Neutrophils % Seg Neuts % (Manual) Lymphocytes % (Manual) Seg Neutrophils # Man D-Dimer ABG pH ABG pO2 ABG O2 Saturation Oxyhemoglobin Sodium Chloride Carbon Dioxide BUN Glucose POC Glucose 267 H 197 H 255 H Calcium Ferritin AST Lactate Dehydrogenase C-Reactive Protein Total Protein Albumin Coronavirus (PCR) 01/26/21 01/26/21 01/26/21 05:23 05:23 05:23 WBC RBC MCV MCH RDW Lymph % (Auto) Lymph # (Auto) Seg Neutrophils % Seg Neuts % (Manual) Lymphocytes % (Manual) Seg Neutrophils # Man D-Dimer 5809.58 H ABG pH ABG pO2 ABG O2 Saturation Oxyhemoglobin Sodium 149 H Chloride 109.3 H Carbon Dioxide BUN 24 H Glucose 362 H POC Glucose Calcium Ferritin 877.1 H AST Lactate Dehydrogenase 655 H C-Reactive Protein Total Protein Albumin Coronavirus (PCR) 01/26/21 01/26/2101/26/21 05:23 06:06 09:28 WBC RBC 5.49 H MCV 77 L MCH 23 L RDW Lymph % (Auto) Lymph # (Auto) 0.8 L Seg Neutrophils % 78.9 H Seg Neuts % (Manual) Lymphocytes % (Manual) Seg Neutrophils # Man D-Dimer ABG pH ABG pO2 ABG O2 Saturation Oxyhemoglobin Sodium Chloride Carbon Dioxide BUN Glucose POC Glucose 387 H 308 H Calcium Ferritin AST Lactate Dehydrogenase C-Reactive Protein Total Protein Albumin Coronavirus (PCR) 01/26/21 01/26/21 01/27/21 15:56 21:28 02:51 WBC RBC MCV MCH RDW Lymph % (Auto) Lymph # (Auto) Seg Neutrophils % Seg Neuts % (Manual) Lymphocytes % (Manual) Seg Neutrophils # Man D-Dimer ABG pH ABG pO2 ABG O2 Saturation Oxyhemoglobin Sodium Chloride Carbon Dioxide BUN Glucose POC Glucose 172 H 316 H 267 H Calcium Ferritin AST Lactate Dehydrogenase C-Reactive Protein Total Protein Albumin Coronavirus (PCR) 01/27/21 01/27/21 01/27/21 04:22 04:22 04:22 WBC RBC MCV MCH RDW Lymph % (Auto) Lymph # (Auto) Seg Neutrophils % Seg Neuts % (Manual) Lymphocytes % (Manual) Seg Neutrophils # Man D-Dimer 4046.06 H ABG pH ABG pO2 ABG O2 Saturation Oxyhemoglobin Sodium Chloride 107.7 H Carbon Dioxide BUN 30 H Glucose 281 H POC Glucose Calcium Ferritin 812.2 H AST Lactate Dehydrogenase 570 H C-Reactive Protein Total Protein Albumin Coronavirus (PCR) 01/27/21 01/27/21 01/27/21 04:22 05:55 12:00 WBC RBC 5.15 H MCV 76 L MCH 23 L RDW 15.5 H Lymph % (Auto) 12.7 L Lymph # (Auto) 0.9 L Seg Neutrophils % 81.3 H Seg Neuts % (Manual) Lymphocytes % (Manual) Seg Neutrophils # Man D-Dimer ABG pH ABG pO2 ABG O2 Saturation Oxyhemoglobin Sodium Chloride Carbon Dioxide BUN Glucose POC Glucose 275 H 121 H Calcium Ferritin AST Lactate Dehydrogenase C-Reactive Protein Total Protein Albumin Coronavirus (PCR) 01/27/21 01/27/21 01/28/21 17:32 21:23 02:08 WBC RBC MCV MCH RDW Lymph % (Auto) Lymph # (Auto) Seg Neutrophils % Seg Neuts % (Manual) Lymphocytes % (Manual) Seg Neutrophils # Man D-Dimer ABG pH ABG pO2 ABG O2 Saturation Oxyhemoglobin Sodium Chloride Carbon Dioxide BUN Glucose POC Glucose 195 H 179 H 210 H Calcium Ferritin AST Lactate Dehydrogenase C-Reactive Protein Total Protein Albumin Coronavirus (PCR) 01/28/21 01/28/21 01/28/21 05:09 08:44 08:46 WBC RBC MCV MCH RDW Lymph % (Auto) Lymph # (Auto) Seg Neutrophils % Seg Neuts % (Manual) Lymphocytes % (Manual) Seg Neutrophils # Man D-Dimer 1884.49 H ABG pH ABG pO2 ABG O2 Saturation Oxyhemoglobin Sodium Chloride Carbon Dioxide BUN Glucose POC Glucose 202 H 191 H Calcium Ferritin AST Lactate Dehydrogenase C-Reactive Protein Total Protein Albumin Coronavirus (PCR) 01/28/21 01/28/21 01/28/21 08:46 08:46 12:18 WBC RBC MCV MCH RDW Lymph % (Auto) Lymph # (Auto) Seg Neutrophils % Seg Neuts % (Manual) Lymphocytes % (Manual) Seg Neutrophils # Man D-Dimer ABG pH ABG pO2 ABG O2 Saturation Oxyhemoglobin Sodium Chloride Carbon Dioxide BUN Glucose POC Glucose 221 H Calcium Ferritin 797.7 H AST Lactate Dehydrogenase 556 H C-Reactive Protein Total Protein Albumin Coronavirus (PCR) 01/28/21 01/28/21 01/29/21 18:21 21:45 01:48 WBC RBC MCV MCH RDW Lymph % (Auto) Lymph # (Auto) Seg Neutrophils % Seg Neuts % (Manual) Lymphocytes % (Manual) Seg Neutrophils # Man D-Dimer ABG pH ABG pO2 ABG O2 Saturation Oxyhemoglobin Sodium Chloride Carbon Dioxide BUN Glucose POC Glucose 214 H 148 H 248 H Calcium Ferritin AST Lactate Dehydrogenase C-Reactive Protein Total Protein Albumin Coronavirus (PCR) 01/29/21 05:17 WBC RBC MCV MCH RDW Lymph % (Auto) Lymph # (Auto) Seg Neutrophils % Seg Neuts % (Manual) Lymphocytes % (Manual) Seg Neutrophils # Man D-Dimer ABG pH ABG pO2 ABG O2 Saturation Oxyhemoglobin Sodium Chloride Carbon Dioxide BUN Glucose POC Glucose 256 H Calcium Ferritin AST Lactate Dehydrogenase C-Reactive Protein Total Protein Albumin Coronavirus (PCR)
[2021-01-29] MEDS: INSULIN GLARGINE 100 UNITS/ML SUB-Q SCH ×2 (11:00→22:01)
[2021-01-29] MEDS: ENOXAPARIN 100 MG/1 ML INJ SUB-Q SCH ×2 (11:00→22:00)
[2021-01-29] MEDS: FAMOTIDINE 20 MG TAB PO SCH ×2 (11:08→22:00)
[2021-01-29] MEDS: amLODIPine 5 MG TAB PO SCH (11:09)
[2021-01-29] MEDS: ZIPRASIDONE MESYLATE 20 MG VIAL IM PRN (11:15)
[2021-01-29] MEDS: HALOPERIDOL 1 MG TAB PO SCH (11:16)
[2021-01-29] MEDS ORDERED: HALOPERIDOL LACTATE 5 MG/1 ML INJ IM PRN (11:30)
--- NOTE | 2021-01-29 13:08 | Progress Note ---
Assessment and Plan Cultures: COVID-19 PCR: Positive 01/17/2021 blood culture: No growth A/P: 55-year-old female past medical history schizophrenia admitted to hospital with COVID-19. #Severe COVID-19 pneumonia: Inflammatory markers elevated. No evidence of pulmonary embolism on CT. s/p abx, completed remdesivir, s/p Actemra on 01/20/2021 #Acute hypoxemic respiratory failure: secondary to COVID-19 infection. On HFNC. #Obesity Recs: -completed steroids, defer weaning to primary/pulm team -s/p abx, completed remdesivir, s/p Actemra on 01/20/2021 -Anticoagulation per protocol. d-dimer downtrending/stable -prone as tolerated Aiden Torres MD, FACP [facility] O: [phone] F: [phone] Subjective Date of service: 01/29/21 Principal diagnosis: Covid-19 Interval history: No fever. Remains on HFNC. Objective - Exam Narrative Exam: Physical Exam (reviewed in chart to minimize risk of transmission) Constitutional: deferred Head, Ears, Nose: deferred Eyes: deferred Neck: deferred Oral: deferred Cardiovascular: deferred Respiratory: deferred GI: deferred Musculoskeletal: deferred Skin: deferred Hem/Lymphatic: deferred Psych: deferred Neurological: deferred - Constitutional Vitals: Vital Signs Temp Pulse Resp BP Pulse Ox 99.1 F 76 16 131/82 95 01/29/21 12:00 01/29/21 08:40 01/29/21 08:40 01/29/21 08:00 01/29/21 08:40 Temperature -Last 24 Hours Temperature 99.1 F Temperature 98.2 F Temperature 98.4 F Temperature 98.8 F Temperature 99.4 F Temperature 98.1 F - Labs CBC & Chem 7: 01/27/21 04:22 01/27/21 04:22 Labs: Abnormal lab results 01/28/21 01/28/21 01/28/21 Range/Units 12:18 18:21 21:45 POC Glucose 221 H 214 H 148 H (70-105) mg/dL 01/29/21 01/29/21 01/29/21 Range/Units 01:48 05:17 10:17 POC Glucose 248 H 256 H 193 H (70-105) mg/dL 01/29/21 Range/Units 11:39 POC Glucose 177 H (70-105) mg/dL
[2021-01-29] MEDS: MIRTAZAPINE 15 MG TAB PO SCH (22:00)
[2021-01-30] MEDS: IPRATROPIUM/ALBUTEROL SULFATE 3 ML AMPUL.NEB IH SCH ×5 (02:40→23:08)
[2021-01-30] MEDS: INSULIN LISPRO 100 UNIT/ML SUB-Q SCH ×5 (05:57→21:55)
--- NOTE | 2021-01-30 07:58 | Progress Note ---
Assessment and Plan Assessment and plan: This is a 55-year-old female with schizophrenia who presented to [facility] on 01/18 for shortness of breath, cough, subjective fever and not feeling well for the last couple days with known COVID-19 exposure. While in the emergency room patient was switched from non rebreather mask to high flow nasal cannula and his CTA chest showed no acute pulmonary embolism. Patient was admitted to the hospital service as a COVID-19 PUI with consults to CCM, infectious disease, psych. Severe COVID-19 pneumonia Acute hypoxic respiratory failure Obesity Schizophrenia Leukocytosis Hyperglycemia Schizophrenia Hypernatremia Hypercholermia -CCM, infectious disease, psychiatry consulted, appreciate recommendations -COVID-19 PCR positive -Droplet/contact isolation -Remdesivir, azithromycin, ceftriaxone, dexamethasone (twice daily dosing) -s/p Actemra -Wean supplemental oxygen as tolerated, pulmonary hygiene -Prone as tolerated -Trend COVID-19 inflammatory markers for risk stratification, CBC, CMP -SSI, Lantus -01/18 bilateral lower extremity Doppler ultrasound negative for DVT -01/17 CTA shows no evidence of pulmonary embolism, extensive bilateral pneumonia, hepatomegaly with hepatic steatosis 01/18/2021 -Acute hypoxic respiratory failure requiring high flow oxygen 40 L. Nebulizer treatment -Patient is admitted for suspected Covid pneumonia. Patient is on dexamethasone, COVID-19 test is pending. Patient is on empiric antibiotics. -ID consulted, will consult pulmonary. -Patient has hyponatremia yesterday and I will repeat and if it is low I will manage accordingly -Patient has elevated D-dimer and CTA chest and bilateral Doppler ultrasound of the lower extremities pending 01/19/2021 -Acute hypoxic respiratory failure currently on BiPAP, nebulizer treatment. I will put in orders to transfer to [facility] yesterday but there was no bed. -Patient is positive for Covid and she is on Decadron and remdesivir. Actemra was ordered on 01/19/2021 -ID evaluated the patient and recommend to continue Decadron and remdesivir, also to continue ceftriaxone and azithromycin for 5 days because of the elevated procalcitonin level. Pulmonary was consulted and recommend to continue current management and add Lasix -CTA chest was done and significant for bilateral pulmonary opacities, negative for PE, Doppler ultrasound of the lower extremities was negative for DVT. -Prognosis is guarded. -Patient is currently on BiPAP and she was agitated and trying to take off the BiPAP, I put the patient on restraints. Discussed with hotel houseman to transfer the patient to IMCU and if there is no bed she need to be transferred to CCU. 01/20: Patient received 5 mg of Haldol for severe agitation and refusal to keep high flow nasal cannula in place. [facility] ordered Lasix again. Psych was consulted today. Patient was on BiPAP therapy all night and RT attempted to give her a break patient is on high flow nasal cannula however she did not keep this in place and was paced back on BiPAP after receiving Haldol. She was started on Lantus today. 01/21: Patient is on BiPAP and on time examination was on 20/10 100% FiO2. Patient was started on Lantus. Psych consult completed and started on Haldol p.o. twice daily and Mirtazepin PO daily. No acute events reported overnight. Patient's D-dimer is greater than 10,000 started on prophylactic Lovenox as recent CTA chest and bilateral lower extremity Doppler ultrasound were negative. 01/22: Patient has been taken off BiPAP therapy and placed on high flow nasal cannula. Patient has been downgraded to IMCU. Patient's hyponatremia and hypochloremia have worsened. 01/23: Patient was on BiPAP overnight with FiO2 85% and IPAP 20/EPAP 10. Patient currently with high flow nasal cannula 40 L O2 with an FiO2 of 100%. Continue remdesivir and dexamethasone. Patient is s/p Actemra on 01/20. Continue empiric antibiotics per ID recommendations. Continue anticoagulation per protocol. 01/24: Patient is tachycardic and hypertensive and [facility] has opted to add amlo dipine. Patient remains on 40 L 100% high flow nasal cannula. Continue remdesivir and dexamethasone. Patient is s/p Actemra on 01/20. Continue empiric antibiotics per ID recommendations. Continue anticoagulation per protocol. 01/25: Patient currently with high flow nasal cannula 40 L/min with FiO2 100%. Continue dexamethasone. Patient has completed remdesivir and s/p Actemra on 01/20. Continue full dose anticoagulation given high elevated D-dimer. Continue to trend inflammatory markers. Prognosis remains guarded. 01/26: Patient currently with high flow nasal cannula 35 L/min and FiO2 90%. Continue dexamethasone. Patient has completed remdesivir and s/p Actemra on 01/20. Continue full dose anticoagulation given high elevated D-dimer. Continue to trend inflammatory markers. Prognosis remains guarded. 01/27: Patient currently with high flow nasal cannula/Vapotherm 35 L/min O2 with F iO2 90%. Patient has completed remdesivir and s/p Actemra on 01/20. Continue full dose anticoagulation given high elevated D-dimer. Continue to trend inflammatory markers. Prognosis remains guarded. 01/28; Patient currently with high flow nasal cannula/Vapotherm 35 L/min O2 with FiO2 90%. Patient has completed remdesivir and s/p Actemra on 01/20. Continue full dose anticoagulation given high elevated D-dimer. Continue to trend inflammatory markers. Prognosis remains guarded. 01/29; patient is currently on 35 L of high flow oxygen. Prognosis guarded. Patient can be transferred to regular floor. 01/30/2021; patient is currently on 35 L of high flow oxygen, FiO2 of 65%. Patient has flat affect and did not talk to me. Patient refused most of her p.o. medications. Patient finished remdesivir, steroid. History Interval history: Patient was seen and evaluated this morning Patient was on high flow oxygen 35 L, FiO2 65% Patient was on restraints Hospitalist Physical - Physical exam Narrative exam: Patient was on 35 L high flow oxygen The patient appeared well nourished and normally developed. Vital signs as documented. Head exam is unremarkable. No scleral icterus . Neck is without jugular venous distension, thyromegaly, or carotid bruits. Lungs decreased air entry on both lungs Cardiac exam reveals regular rate and Rhythm. Abdominal exam reveals normal bowel sounds, nontender, no organomegaly. Extremities are nonedematous and both femoral and pedal pulses are normal. [employer]ILITY WORK[employer]: Patient was on restraints, patient was alert but she had flat affect and didn't talk to me. - Constitutional Vitals: Temp Pulse Resp BP Pulse Ox 98.8 F 66 18 133/59 98 01/30/21 03:16 01/30/21 03:20 01/30/21 03:16 01/30/21 03:16 01/30/21 03:20 General appearance: Present: no acute distress, well-nourished HEART Score - HEART Score Troponin: Troponin T < 0.010 ng/mL (0.00-0.029) 01/17/21 16:41 Results - Labs CBC & Chem 7: 01/27/21 04:22 01/27/21 04:22 Labs: Laboratory Last Values WBC 6.9 K/mm3 (4.5-11.0) 01/27/21 04:22 RBC 5.15 M/mm3 (3.65-5.03) H 01/27/21 04:22 Hgb 11.9 gm/dl (10.1-14.3) 01/27/21 04:22 Hct 39.1 % (30.3-42.9) 01/27/21 04:22 MCV 76 fl (79-97) L 01/27/21 04:22 MCH 23 pg (28-32) L 01/27/21 04:22 MCHC 30 % (30-34) 01/27/21 04:22 RDW 15.5 % (13.2-15.2) H 01/27/21 04:22 Plt Count 227 K/mm3 (140-440) 01/27/21 04:22 Lymph % (Auto) 12.7 % (13.4-35.0) L 01/27/21 04:22 [place] % (Auto) 5.3 % (0.0-7.3) 01/27/21 04:22 Eos % (Auto) 0.5 % (0.0-4.3) 01/27/21 04:22 Baso % (Auto) 0.2 % (0.0-1.8) 01/27/21 04:22 Lymph # (Auto) 0.9 K/mm3 (1.2-5.4) L 01/27/21 04:22 [place] # (Auto) 0.4 K/mm3 (0.0-0.8) 01/27/21 04:22 Eos # (Auto) 0.0 K/mm3 (0.0-0.4) 01/27/21 04:22 Baso # (Auto) 0.0 K/mm3 (0.0-0.1) 01/27/21 04:22 Add Manual Diff Complete 01/19/21 05:11 Total Counted 100 01/19/21 05:11 Seg Neutrophils % 81.3 % (40.0-70.0) H 01/27/21 04:22 Seg Neuts % (Manual) 88.0 % (40.0-70.0) H 01/19/21 05:11 Lymphocytes % (Manual) 10.0 % (13.4-35.0) L 01/19/21 05:11 Monocytes % (Manual) 2.0 % (0.0-7.3) 01/19/21 05:11 Nucleated RBC % Not Reportable 01/19/21 05:11 Seg Neutrophils # 5.6 K/mm3 (1.8-7.7) 01/27/21 04:22 Seg Neutrophils # Man 12.5 K/mm3 (1.8-7.7) H 01/19/21 05:11 Band Neutrophils # 0.0 K/mm3 01/19/21 05:11 Lymphocytes # (Manual) 1.4 K/mm3 (1.2-5.4) 01/19/21 05:11 Abs React Lymphs (Man) 0.0 K/mm3 01/19/21 05:11 Monocytes # (Manual) 0.3 K/mm3 (0.0-0.8) 01/19/21 05:11 Eosinophils # (Manual) 0.0 K/mm3 (0.0-0.4) 01/19/21 05:11 Basophils # (Manual) 0.0 K/mm3 (0.0-0.1) 01/19/21 05:11 Metamyelocytes # 0.0 K/mm3 01/19/21 05:11 Myelocytes # 0.0 K/mm3 01/19/21 05:11 Promyelocytes # 0.0 K/mm3 01/19/21 05:11 Blast Cells # 0.0 K/mm3 01/19/21 05:11 WBC Morphology Not Reportable 01/19/21 05:11 Hypersegmented Neuts Not Reportable 01/19/21 05:11 Hyposegmented Neuts Not Reportable 01/19/21 05:11 Hypogranular Neuts Not Reportable 01/19/21 05:11 Smudge Cells Not Reportable 01/19/21 05:11 Toxic Granulation Not Reportable 01/19/21 05:11 Toxic Vacuolation Not Reportable 01/19/21 05:11 Dohle Bodies Not Reportable 01/19/21 05:11 Pelger-Huet Anomaly Not Reportable 01/19/21 05:11 Inder Rods Not Reportable 01/19/21 05:11 Platelet Estimate Consistent w auto 01/19/21 05:11 Clumped Platelets Not Reportable 01/19/21 05:11 Plt Clumps, EDTA Not Reportable 01/19/21 05:11 Large Platelets Not Reportable 01/19/21 05:11 Giant Platelets Not Reportable 01/19/21 05:11 Platelet Satelliting Not Reportable 01/19/21 05:11 Plt Morphology Comment Not Reportable 01/19/21 05:11 RBC Morphology Not Reportable 01/19/21 05:11 Dimorphic RBCs Not Reportable 01/19/21 05:11 Polychromasia Not Reportable 01/19/21 05:11 Hypochromasia 1+ 01/19/21 05:11 Poikilocytosis Not Reportable 01/19/21 05:11 Anisocytosis Not Reportable 01/19/21 05:11 Microcytosis Not Reportable 01/19/21 05:11 Macrocytosis Not Reportable 01/19/21 05:11 Spherocytes Not Reportable 01/19/21 05:11 Pappenheimer Bodies Not Reportable 01/19/21 05:11 Sickle Cells Not Reportable 01/19/21 05:11 Target Cells Not Reportable 01/19/21 05:11 Tear Drop Cells Not Reportable 01/19/21 05:11 Ovalocytes Not Reportable 01/19/21 05:11 Helmet Cells Not Reportable 01/19/21 05:11 [place] Bodies Not Reportable 01/19/21 05:11 [place] Rings Not Reportable 01/19/21 05:11 [place] Cells Not Reportable 01/19/21 05:11 Bite Cells Not Reportable 01/19/21 05:11 Crenated Cell Not Reportable 01/19/21 05:11 Elliptocytes Not Reportable 01/19/21 05:11 Acanthocytes (Spur) Not Reportable 01/19/21 05:11 Rouleaux Not Reportable 01/19/21 05:11 Hemoglobin C Crystals Not Reportable 01/19/21 05:11 Schistocytes Not Reportable 01/19/21 05:11 Malaria parasites Not Reportable 01/19/21 05:11 [place]ai Bodies Not Reportable 01/19/21 05:11 Hem Pathologist Commnt No 01/19/21 05:11 D-Dimer 1884.49 ng/mlDDU (0-234) H 01/28/21 08:46 ABG pH 7.461 pH Units (7.350-7.450) H 01/18/21 17:18 ABG pCO2 36.6 mm Hg 01/18/21 17:18 ABG pO2 53.1 mm Hg (80.0-90.0) L 01/18/21 17:18 ABG HCO3 25.5 mmol/L (20.0-26.0) 01/18/21 17:18 ABG O2 Saturation 89.4 % (95.0-99.0) L 01/18/21 17:18 ABG O2 Content 15.1 (0.0-44) 01/18/21 17:18 ABG Base Excess 1.9 mmol/L (-2.0-3.0) 01/18/21 17:18 ABG Hemoglobin 12.2 gm/dl (12.0-16.0) 01/18/21 17:18 ABG Carboxyhemoglobin 1.2 % (0.0-5.0) 01/18/21 17:18 ABG Methemoglobin 0.5 % (0.0-1.5) 01/18/21 17:18 Oxyhemoglobin 88.0 % (95.0-99.0) L 01/18/21 17:18 FiO2 100 % 01/18/21 17:18 Sodium 145 mmol/L (137-145) 01/27/21 04:22 Potassium 4.4 mmol/L (3.6-5.0) 01/27/21 04:22 Chloride 107.7 mmol/L (98-107) H 01/27/21 04:22 Carbon Dioxide 27 mmol/L (22-30) 01/27/21 04:22 Anion Gap 15 mmol/L 01/27/21 04:22 BUN 30 mg/dL (7-17) H 01/27/21 04:22 Creatinine 0.7 mg/dL (0.6-1.2) 01/27/21 04:22 Estimated GFR > 60 ml/min 01/27/21 04:22 BUN/Creatinine Ratio 43 % 01/27/21 04:22 Glucose 281 mg/dL (65-100) H 01/27/21 04:22 POC Glucose 114 mg/dL (70-105) H 01/30/21 06:07 Lactic Acid 1.70 mmol/L (0.7-2.0) 01/17/21 16:41 Calcium 8.4 mg/dL (8.4-10.2) 01/27/21 04:22 Ferritin 797.7 ng/mL (10.0-200.0) H 01/28/21 08:46 Total Bilirubin 0.30 mg/dL (0.1-1.2) 01/21/21 11:29 AST 34 units/L (5-40) 01/21/21 11:29 ALT 38 units/L (7-56) 01/21/21 11:29 Alkaline Phosphatase 117 units/L (35-129) 01/21/21 11:29 Lactate Dehydrogenase 556 units/L (91-180) H 01/28/21 08:46 Troponin T < 0.010 ng/mL (0.00-0.029) 01/17/21 16:41 C-Reactive Protein 0.20 mg/dL (0.00-1.30) 01/28/21 08:46 NT-Pro-B Natriuret Pep 40.88 pg/mL (0-900) 01/17/21 16:41 Total Protein 7.3 g/dL (6.3-8.2) 01/21/21 11:29 Albumin 3.4 g/dL (3.9-5) L 01/21/21 11:29 Albumin/Globulin Ratio 0.9 % 01/21/21 11:29 Procalcitonin 0.39 ng/mL (<0.15) 01/17/21 17:46 Coronavirus (PCR) Positive (Negative) A 01/17/21 09:25 Estrada/IV: Voiding Method External Female Catheter Active Medications - Current Medications Current Medications: Generic Name Dose Route Start Last Admin Trade Name Freq PRN Reason Stop Dose Admin Acetaminophen 650 mg 01/18/21 00:36 01/22/21 23:46 Acetaminophen 325 Mg Tab PO 650 mg Q4H PRN Administration Pain MILD(1-3)/Fever >100.5/PAN Albuterol/Ipratropium 1 ampul 01/18/21 02:00 01/30/21 02:40 Ipratropium/Albuterol Sulfate 3 Ml Ampul.Neb IH 1 ampul Q6HRT [facility] Administration Amlodipine Besylate 5 mg 01/24/21 15:00 01/29/21 11:09 Amlodipine 5 Mg Tab PO Not Given QDAY [facility] Enoxaparin Sodium 100 mg 01/21/21 10:00 01/29/21 22:00 Enoxaparin 100 Mg/1 Ml Inj 1 mg/kg (100 mg) 100 mg SUB-Q Administration Q12HR [facility] Protocol Famotidine 20 mg 01/18/21 10:00 01/29/21 22:00 Famotidine 20 Mg Tab PO 20 mg BID [facility] Administration Haloperidol Lactate 5 mg 01/29/21 11:30 Haloperidol Lactate 5 Mg/1 Ml Inj IM Q6H PRN Agitation Hydralazine HCl 10 mg 01/18/21 00:38 01/24/21 23:12 Hydralazine 20 Mg/1 Ml Inj IV 10 mg Q6H PRN Administration htn Hydromorphone HCl 0.5 mg 01/20/21 11:00 Hydromorphone 1 Mg/1 Ml Inj IV Q6H PRN Pain , Severe (7-10) Insulin Glargine 20 units 01/20/21 22:00 01/29/21 22:01 Insulin Glargine 100 Units/Ml SUB-Q Not Given QHS [facility] Insulin Glargine 20 units 01/24/21 10:00 01/29/21 11:00 Insulin Glargine 100 Units/Ml SUB-Q 20 units DAILY [facility] Administration Insulin Human Lispro 0 unit 01/21/21 14:00 01/30/21 05:57 Insulin Lispro 100 Unit/Ml SUB-Q Not Given Q4HR [facility] Protocol Mirtazapine 7.5 mg 01/21/21 22:00 01/29/21 22:00 Mirtazapine 15 Mg Tab PO 7.5 mg QHS [facility] Administration Ondansetron HCl 4 mg 01/18/21 00:36 Ondansetron 4 Mg/2 Ml Inj IV Q8H PRN Nausea And Vomiting Sodium Chloride 10 ml 01/18/21 10:00 01/29/21 22:01 Sodium Chloride 0.9% 10 Ml Flush Syringe IV 10 ml BID [facility] Administration Sodium Chloride 10 ml 01/18/21 00:36 Sodium Chloride 0.9% 10 Ml Flush Syringe IV PRN PRN LINE FLUSH Ziprasidone 10 mg 01/20/21 10:57 01/29/21 11:15 Ziprasidone Mesylate 20 Mg Vial IM 10 mg Q6H PRN Administration AGITATION Nutrition/Malnutrition Assess - Dietary Evaluation Nutrition/Malnutrition Findings: Nutrition Notes Start: 01/24/21 10:40 Freq: Status: Active Protocol: Document 01/28/21 14:05 AT (Rec: 01/28/21 14:17 AT [email or web address]) Co-Sign 01/28/21 14:05 CW Nutrition Notes Initial or Follow up Reassessment Current Diagnosis Respiratory Failure Other Pertinent Diagnosis pneu, COVID-19(+), AMS Current Diet Cardiac diet with Consistent CHO modifications Labs/Tests / BUN 30 POC BG 210 Pertinent Medications Decadron Lantus Humalog Remeron Height 5 ft 4 in Weight 92.9 kg Mode Body Weight (kg) 54.54 BMI 35.2 Weight Status Obese Subjective/Other Information Follow up for intakes and ONS tolerance. Per RN, pt consumed 100% of breakfast and >75% of lunch; RN is uncertain whether pt is drinking ONS, but there was one empty bottle found in room. Will continue to monitor pt for intakes and BG levels. Percent of energy/protein needs met: 98%/100% Burn Absent Trauma Absent Current % PO Good (75-100%) Minimum of two criteria No Energy Intake (non-severe) <75% Estimated Energy Requirement >7 days #1 Nutrition Diagnosis Inadequate oral intake As Evidenced by Signs and Symptoms pt consuming 87.5% of meals and some of ONS Diagnosis Progress(for reassessment Improved documentation) Is patient on ventilator? No Is Patient Ambulatory and/or Out of Bed No REE-([facility]-confined to bed) 1809.060 Kcal/Kg value to use for calculation 15 Approximate Energy Requirements Using 1394 kcal/Kg Calculation Used for Recommendations Kcal/kg Additional Notes PRO needs: 59-74 g(0.8-1 g/kg AdBW 74 kg) Fluid needs: 1mL/kcal Nutrition Intervention Change Diet Order: Continue Cardiac with Consistent CHO modifications Add Supplement/Snack (indicate name/kcal Glucerna BID /protein ) Provides kCal: 440 Provides Protein (gm) 20 Goal #1 Meet at least 75% of energy and protein needs via PO and ONS intakes Anticipated Discharge Needs: Cardiac/Consistent CHO Follow-Up By: 01/31/21 Additional Comments F/U for stable intakes and ONS tolerance
[2021-01-30] MEDS: FAMOTIDINE 20 MG TAB PO SCH ×2 (10:31→21:50)
[2021-01-30] MEDS: ENOXAPARIN 100 MG/1 ML INJ SUB-Q SCH ×2 (10:31→21:50)
[2021-01-30] MEDS: amLODIPine 5 MG TAB PO SCH (10:31)
[2021-01-30] MEDS: INSULIN GLARGINE 100 UNITS/ML SUB-Q SCH ×2 (10:57→21:55)
--- NOTE | 2021-01-30 12:18 | Progress Note ---
Assessment and Plan 55 y/o female admitted with acute respiratory failure secondary to pneumonia, positive for Sars CoV2 01/30/21: Lasix 20mg IV today. Continue Antipsychotic therapy management. Prone as tolerated if patient willing. 01/29/21: Will give lasix again today. Will change Haldol to IM since patient is refusing PO meds. 01/28/21: Will give lasix again today. Continue all other therapies. Prone if patient will and tolerate. STeroids. Guarded prognosis. 01/20/21: Gave Haldol 5 and patient has calmed down and become more appropriate, allowing us to place bipap back on. COntinue steroids and remdesivir therapy. Doubt patient will be able to prone successfully. Will try lasix today again to see if this helps. Very very guarded prognosis. 01/19/21: Continue decadron, suggest increase given patient body habitus to BID. ID consult for Remdesivir therapy and to see if she is a candidate for Actemra. Prone as tolerated during the day and sleep prone at night. Will give lasix again today. Guarded prognosis. 1. Prone 2. Lasix 3. Agree with steroids 4. Follow up COVID testing Guarded prognosis Subjective Date of service: 01/30/21 Principal diagnosis: Covid-19 Interval history: No acute events. Remains on HFNC. Objective Vital Signs - 12hr 01/30/21 01/30/21 01/30/21 00:20 00:43 02:43 Temperature 98.0 F Pulse Rate 114 H Pulse Rate [ 79 Anterior Bilateral Throughout] Respiratory 20 Rate Respiratory 18 Rate [Anterior Bilateral Throughout] Blood Pressure 137/64 O2 Sat by Pulse 86 94 Oximetry 01/30/21 01/30/21 01/30/21 02:49 03:16 03:20 Temperature 98.8 F Pulse Rate 111 H 66 Pulse Rate [ Anterior Bilateral Throughout] Respiratory 18 Rate Respiratory Rate [Anterior Bilateral Throughout] Blood Pressure 133/59 O2 Sat by Pulse 94 92 98 Oximetry 01/30/21 01/30/21 08:00 10:31 Temperature Pulse Rate 66 Pulse Rate [ Anterior Bilateral Throughout] Respiratory Rate Respiratory Rate [Anterior Bilateral Throughout] Blood Pressure O2 Sat by Pulse 92 Oximetry Constitutional: alert, other (critically ill on HFNC 100% FiO2) Eyes: non-icteric ENT: oropharynx moist Neck: supple, other (large in circumference) Effort: mildly labored Ascultation: Bilateral: clear Cardiovascular: other (tachy, RR; no mrg) Gastrointestinal: normoactive bowel sounds, soft, non-tender, non-distended Integumentary: normal Extremities: no cyanosis, no edema, pink and warm Neurologic: normal mental status, non-focal exam, pupils equal and round Psychiatric: mood appropriate, affect normal CBC and BMP: 01/27/21 04:22 01/27/21 04:22 ABG, PT/INR, D-dimer: ABG ABG pH 7.461 pH Units (7.350-7.450) H 01/18/21 17:18 ABG pCO2 36.6 mm Hg 01/18/21 17:18 ABG pO2 53.1 mm Hg (80.0-90.0) L 01/18/21 17:18 ABG O2 Saturation 89.4 % (95.0-99.0) L 01/18/21 17:18 PT/INR, D-dimer D-Dimer 1884.49 ng/mlDDU (0-234) H 01/28/21 08:46 Abnormal lab findings: Abnormal Labs 01/17/21 01/17/21 01/17/21 09:25 16:41 16:41 WBC RBC 5.23 H MCV 76 L MCH 24 L RDW Lymph % (Auto) 9.4 L Lymph # (Auto) 0.8 L Seg Neutrophils % 85.4 H Seg Neuts % (Manual) Lymphocytes % (Manual) Seg Neutrophils # Man D-Dimer ABG pH ABG pO2 ABG O2 Saturation Oxyhemoglobin Sodium 128 L Chloride 90.8 L Carbon Dioxide BUN Glucose 372 H POC Glucose Calcium Ferritin AST 98 H Lactate Dehydrogenase C-Reactive Protein Total Protein Albumin 3.2 L Coronavirus (PCR) Positive A 01/17/21 01/17/21 01/17/21 17:46 17:46 17:46 WBC RBC MCV MCH RDW Lymph % (Auto) Lymph # (Auto) Seg Neutrophils % Seg Neuts % (Manual) Lymphocytes % (Manual) Seg Neutrophils # Man D-Dimer 1058.54 H ABG pH ABG pO2 ABG O2 Saturation Oxyhemoglobin Sodium Chloride Carbon Dioxide BUN Glucose 369 H POC Glucose Calcium Ferritin 668.4 H AST Lactate Dehydrogenase 519 H C-Reactive Protein 19.20 H Total Protein Albumin Coronavirus (PCR) 01/18/21 01/18/21 01/19/21 09:01 17:18 05:11 WBC 14.2 H RBC MCV 74 L MCH 23 L RDW Lymph % (Auto) Lymph # (Auto) Seg Neutrophils % Seg Neuts % (Manual) 88.0 H Lymphocytes % (Manual) 10.0 L Seg Neutrophils # Man 12.5 H D-Dimer ABG pH 7.461 H ABG pO2 53.1 L ABG O2 Saturation 89.4 L Oxyhemoglobin 88.0 L Sodium 132 L Chloride 93.6 L Carbon Dioxide BUN 18 H Glucose 367 H POC Glucose Calcium 7.8 L Ferritin AST Lactate Dehydrogenase C-Reactive Protein Total Protein Albumin Coronavirus (PCR) 01/19/21 01/19/21 01/19/21 05:11 11:06 14:43 WBC RBC MCV MCH RDW Lymph % (Auto) Lymph # (Auto) Seg Neutrophils % Seg Neuts % (Manual) Lymphocytes % (Manual) Seg Neutrophils # Man D-Dimer ABG pH ABG pO2 ABG O2 Saturation Oxyhemoglobin Sodium Chloride Carbon Dioxide BUN 18 H Glucose 304 H 379 H POC Glucose 382 H Calcium 8.3 L Ferritin AST 92 H 96 H Lactate Dehydrogenase C-Reactive Protein Total Protein Albumin 3.0 L 3.0 L Coronavirus (PCR) 01/19/21 01/19/21 01/20/21 16:18 22:18 07:31 WBC RBC MCV MCH RDW Lymph % (Auto) Lymph # (Auto) Seg Neutrophils % Seg Neuts % (Manual) Lymphocytes % (Manual) Seg Neutrophils # Man D-Dimer ABG pH ABG pO2 ABG O2 Saturation Oxyhemoglobin Sodium Chloride Carbon Dioxide BUN Glucose POC Glucose 374 H 341 H 344 H Calcium Ferritin AST Lactate Dehydrogenase C-Reactive Protein Total Protein Albumin Coronavirus (PCR) 01/20/21 01/20/21 01/20/21 07:33 12:14 13:54 WBC RBC MCV MCH RDW Lymph % (Auto) Lymph # (Auto) Seg Neutrophils % Seg Neuts % (Manual) Lymphocytes % (Manual) Seg Neutrophils # Man D-Dimer ABG pH ABG pO2 ABG O2 Saturation Oxyhemoglobin Sodium Chloride Carbon Dioxide BUN 32 H 31 H Glucose 343 H 396 H POC Glucose 365 H Calcium Ferritin AST 57 H 54 H Lactate Dehydrogenase C-Reactive Protein Total Protein 8.3 H Albumin 2.7 L 3.1 L Coronavirus (PCR) 01/20/21 01/20/21 01/21/21 18:28 21:25 04:45 WBC RBC MCV MCH RDW Lymph % (Auto) Lymph # (Auto) Seg Neutrophils % Seg Neuts % (Manual) Lymphocytes % (Manual) Seg Neutrophils # Man D-Dimer ABG pH ABG pO2 ABG O2 Saturation Oxyhemoglobin Sodium Chloride Carbon Dioxide 31 H BUN 41 H Glucose 377 H POC Glucose 403 H 340 H Calcium Ferritin AST Lactate Dehydrogenase C-Reactive Protein Total Protein 8.3 H Albumin 3.0 L Coronavirus (PCR) 01/21/21 01/21/21 01/21/21 04:45 04:45 04:45 WBC RBC MCV MCH RDW Lymph % (Auto) Lymph # (Auto) Seg Neutrophils % Seg Neuts % (Manual) Lymphocytes % (Manual) Seg Neutrophils # Man D-Dimer > 49510 H ABG pH ABG pO2 ABG O2 Saturation Oxyhemoglobin Sodium Chloride Carbon Dioxide BUN Glucose POC Glucose Calcium Ferritin 1688.0 H AST Lactate Dehydrogenase 649 H C-Reactive Protein 17.00 H Total Protein Albumin Coronavirus (PCR) 01/21/21 01/21/21 01/21/21 09:45 11:29 12:09 WBC RBC MCV MCH RDW Lymph % (Auto) Lymph # (Auto) Seg Neutrophils % Seg Neuts % (Manual) Lymphocytes % (Manual) Seg Neutrophils # Man D-Dimer ABG pH ABG pO2 ABG O2 Saturation Oxyhemoglobin Sodium 151 H Chloride Carbon Dioxide BUN 40 H Glucose 412 H POC Glucose 401 H 372 H Calcium Ferritin AST Lactate Dehydrogenase C-Reactive Protein Total Protein Albumin 3.4 L Coronavirus (PCR) 01/21/21 01/21/21 01/22/21 18:26 21:09 02:00 WBC RBC MCV MCH RDW Lymph % (Auto) Lymph # (Auto) Seg Neutrophils % Seg Neuts % (Manual) Lymphocytes % (Manual) Seg Neutrophils # Man D-Dimer ABG pH ABG pO2 ABG O2 Saturation Oxyhemoglobin Sodium Chloride Carbon Dioxide BUN Glucose POC Glucose 376 H 322 H 231 H Calcium Ferritin AST Lactate Dehydrogenase C-Reactive Protein Total Protein Albumin Coronavirus (PCR) 01/22/21 01/22/21 01/22/21 05:24 08:25 08:25 WBC RBC 5.44 H MCV 75 L MCH 23 L RDW 15.5 H Lymph % (Auto) Lymph # (Auto) Seg Neutrophils % Seg Neuts % (Manual) Lymphocytes % (Manual) Seg Neutrophils # Man D-Dimer ABG pH ABG pO2 ABG O2 Saturation Oxyhemoglobin Sodium 155 H Chloride 112.4 H Carbon Dioxide BUN 33 H Glucose 274 H POC Glucose 275 H Calcium Ferritin AST Lactate Dehydrogenase C-Reactive Protein Total Protein Albumin Coronavirus (PCR) 01/22/21 01/22/21 01/22/21 11:53 16:03 21:41 WBC RBC MCV MCH RDW Lymph % (Auto) Lymph # (Auto) Seg Neutrophils % Seg Neuts % (Manual) Lymphocytes % (Manual) Seg Neutrophils # Man D-Dimer ABG pH ABG pO2 ABG O2 Saturation Oxyhemoglobin Sodium Chloride Carbon Dioxide BUN Glucose POC Glucose 265 H 293 H 279 H Calcium Ferritin AST Lactate Dehydrogenase C-Reactive Protein Total Protein Albumin Coronavirus (PCR) 01/23/21 01/23/21 01/23/21 02:03 05:46 05:59 WBC RBC MCV MCH RDW Lymph % (Auto) Lymph # (Auto) Seg Neutrophils % Seg Neuts % (Manual) Lymphocytes % (Manual) Seg Neutrophils # Man D-Dimer ABG pH ABG pO2 ABG O2 Saturation Oxyhemoglobin Sodium Chloride Carbon Dioxide BUN Glucose POC Glucose 268 H 303 H Calcium Ferritin 1116.0 H AST Lactate Dehydrogenase C-Reactive Protein Total Protein Albumin Coronavirus (PCR) 01/23/21 01/23/21 01/23/21 05:59 07:42 09:11 WBC RBC MCV MCH RDW Lymph % (Auto) Lymph # (Auto) Seg Neutrophils % Seg Neuts % (Manual) Lymphocytes % (Manual) Seg Neutrophils # Man D-Dimer ABG pH ABG pO2 ABG O2 Saturation Oxyhemoglobin Sodium Chloride Carbon Dioxide BUN Glucose POC Glucose 291 H 285 H Calcium Ferritin AST Lactate Dehydrogenase 680 H C-Reactive Protein 5.80 H Total Protein Albumin Coronavirus (PCR) 01/23/21 01/23/21 01/23/21 14:06 17:05 17:59 WBC RBC MCV MCH RDW Lymph % (Auto) Lymph # (Auto) Seg Neutrophils % Seg Neuts % (Manual) Lymphocytes % (Manual) Seg Neutrophils # Man D-Dimer ABG pH ABG pO2 ABG O2 Saturation Oxyhemoglobin Sodium Chloride Carbon Dioxide BUN Glucose POC Glucose 228 H 300 H 278 H Calcium Ferritin AST Lactate Dehydrogenase C-Reactive Protein Total Protein Albumin Coronavirus (PCR) 01/23/21 01/24/21 01/24/21 21:43 02:14 05:15 WBC RBC MCV MCH RDW Lymph % (Auto) Lymph # (Auto) Seg Neutrophils % Seg Neuts % (Manual) Lymphocytes % (Manual) Seg Neutrophils # Man D-Dimer ABG pH ABG pO2 ABG O2 Saturation Oxyhemoglobin Sodium Chloride Carbon Dioxide BUN Glucose POC Glucose 223 H 427 H 392 H Calcium Ferritin AST Lactate Dehydrogenase C-Reactive Protein Total Protein Albumin Coronavirus (PCR) 01/24/21 01/24/21 01/24/21 07:03 07:03 09:10 WBC RBC 5.49 H MCV 75 L MCH 23 L RDW Lymph % (Auto) 7.0 L Lymph # (Auto) 0.5 L Seg Neutrophils % 86.1 H Seg Neuts % (Manual) Lymphocytes % (Manual) Seg Neutrophils # Man D-Dimer ABG pH ABG pO2 ABG O2 Saturation Oxyhemoglobin Sodium 149 H Chloride 111.4 H Carbon Dioxide BUN 24 H Glucose 339 H POC Glucose 284 H Calcium Ferritin AST Lactate Dehydrogenase C-Reactive Protein Total Protein Albumin Coronavirus (PCR) 01/24/21 01/24/21 01/24/21 13:47 18:30 21:58 WBC RBC MCV MCH RDW Lymph % (Auto) Lymph # (Auto) Seg Neutrophils % Seg Neuts % (Manual) Lymphocytes % (Manual) Seg Neutrophils # Man D-Dimer ABG pH ABG pO2 ABG O2 Saturation Oxyhemoglobin Sodium Chloride Carbon Dioxide BUN Glucose POC Glucose 317 H 180 H 262 H Calcium Ferritin AST Lactate Dehydrogenase C-Reactive Protein Total Protein Albumin Coronavirus (PCR) 01/25/21 01/25/21 01/25/21 01:22 05:35 08:36 WBC RBC MCV MCH RDW Lymph % (Auto) Lymph # (Auto) Seg Neutrophils % Seg Neuts % (Manual) Lymphocytes % (Manual) Seg Neutrophils # Man D-Dimer ABG pH ABG pO2 ABG O2 Saturation Oxyhemoglobin Sodium Chloride Carbon Dioxide BUN Glucose POC Glucose 280 H 243 H 216 H Calcium Ferritin AST Lactate Dehydrogenase C-Reactive Protein Total Protein Albumin Coronavirus (PCR) 01/25/21 01/25/21 01/25/21 15:14 15:14 15:14 WBC RBC MCV MCH RDW Lymph % (Auto) Lymph # (Auto) Seg Neutrophils % Seg Neuts % (Manual) Lymphocytes % (Manual) Seg Neutrophils # Man D-Dimer 6312.54 H ABG pH ABG pO2 ABG O2 Saturation Oxyhemoglobin Sodium 146 H Chloride 108.1 H Carbon Dioxide BUN 19 H Glucose 287 H POC Glucose Calcium 8.3 L Ferritin 869.5 H AST Lactate Dehydrogenase 685 H C-Reactive Protein Total Protein Albumin Coronavirus (PCR) 01/25/21 01/25/21 01/26/21 16:06 21:18 01:47 WBC RBC MCV MCH RDW Lymph % (Auto) Lymph # (Auto) Seg Neutrophils % Seg Neuts % (Manual) Lymphocytes % (Manual) Seg Neutrophils # Man D-Dimer ABG pH ABG pO2 ABG O2 Saturation Oxyhemoglobin Sodium Chloride Carbon Dioxide BUN Glucose POC Glucose 267 H 197 H 255 H Calcium Ferritin AST Lactate Dehydrogenase C-Reactive Protein Total Protein Albumin Coronavirus (PCR) 01/26/21 01/26/21 01/26/21 05:23 05:23 05:23 WBC RBC MCV MCH RDW Lymph % (Auto) Lymph # (Auto) Seg Neutrophils % Seg Neuts % (Manual) Lymphocytes % (Manual) Seg Neutrophils # Man D-Dimer 5809.58 H ABG pH ABG pO2 ABG O2 Saturation Oxyhemoglobin Sodium 149 H Chloride 109.3 H Carbon Dioxide BUN 24 H Glucose 362 H POC Glucose Calcium Ferritin 877.1 H AST Lactate Dehydrogenase 655 H C-Reactive Protein Total Protein Albumin Coronavirus (PCR) 01/26/21 01/26/21 01/26/21 05:23 06:06 09:28 WBC RBC 5.49 H MCV 77 L MCH 23 L RDW Lymph % (Auto) Lymph # (Auto) 0.8 L Seg Neutrophils % 78.9 H Seg Neuts % (Manual) Lymphocytes % (Manual) Seg Neutrophils # Man D-Dimer ABG pH ABG pO2 ABG O2 Saturation Oxyhemoglobin Sodium Chloride Carbon Dioxide BUN Glucose POC Glucose 387 H 308 H Calcium Ferritin AST Lactate Dehydrogenase C-Reactive Protein Total Protein Albumin Coronavirus (PCR) 01/26/21 01/26/21 01/27/21 15:56 21:28 02:51 WBC RBC MCV MCH RDW Lymph % (Auto) Lymph # (Auto) Seg Neutrophils % Seg Neuts % (Manual) Lymphocytes % (Manual) Seg Neutrophils # Man D-Dimer ABG pH ABG pO2 ABG O2 Saturation Oxyhemoglobin Sodium Chloride Carbon Dioxide BUN Glucose POC Glucose 172 H 316 H 267 H Calcium Ferritin AST Lactate Dehydrogenase C-Reactive Protein Total Protein Albumin Coronavirus (PCR) 01/27/21 01/27/21 01/27/21 04:22 04:22 04:22 WBC RBC MCV MCH RDW Lymph % (Auto) Lymph # (Auto) Seg Neutrophils % Seg Neuts % (Manual) Lymphocytes % (Manual) Seg Neutrophils # Han D-Dimer 4046.06 H ABG pH ABG pO2 ABG O2 Saturation Oxyhemoglobin Sodium Chloride 107.7 H Carbon Dioxide BUN 30 H Glucose 281 H POC Glucose Calcium Ferritin 812.2 H AST Lactate Dehydrogenase 570 H C-Reactive Protein Total Protein Albumin Coronavirus (PCR) 01/27/21 01/27/21 01/27/21 04:22 05:55 12:00 WBC RBC 5.15 H MCV 76 L MCH 23 L RDW 15.5 H Lymph % (Auto) 12.7 L Lymph # (Auto) 0.9 L Seg Neutrophils % 81.3 H Seg Neuts % (Manual) Lymphocytes % (Manual) Seg Neutrophils # Han D-Dimer ABG pH ABG pO2 ABG O2 Saturation Oxyhemoglobin Sodium Chloride Carbon Dioxide BUN Glucose POC Glucose 275 H 121 H Calcium Ferritin AST Lactate Dehydrogenase C-Reactive Protein Total Protein Albumin Coronavirus (PCR) 01/27/21 01/27/21 01/28/21 17:32 21:23 02:08 WBC RBC MCV MCH RDW Lymph % (Auto) Lymph # (Auto) Seg Neutrophils % Seg Neuts % (Manual) Lymphocytes % (Manual) Seg Neutrophils # Han D-Dimer ABG pH ABG pO2 ABG O2 Saturation Oxyhemoglobin Sodium Chloride Carbon Dioxide BUN Glucose POC Glucose 195 H 179 H 210 H Calcium Ferritin AST Lactate Dehydrogenase C-Reactive Protein Total Protein Albumin Coronavirus (PCR) 01/28/21 01/28/21 01/28/21 05:09 08:44 08:46 WBC RBC MCV MCH RDW Lymph % (Auto) Lymph # (Auto) Seg Neutrophils % Seg Neuts % (Manual) Lymphocytes % (Manual) Seg Neutrophils # Man D-Dimer 1884.49 H ABG pH ABG pO2 ABG O2 Saturation Oxyhemoglobin Sodium Chloride Carbon Dioxide BUN Glucose POC Glucose 202 H 191 H Calcium Ferritin AST Lactate Dehydrogenase C-Reactive Protein Total Protein Albumin Coronavirus (PCR) 01/28/21 01/28/21 01/28/21 08:46 08:46 12:18 WBC RBC MCV MCH RDW Lymph % (Auto) Lymph # (Auto) Seg Neutrophils % Seg Neuts % (Manual) Lymphocytes % (Manual) Seg Neutrophils # Man D-Dimer ABG pH ABG pO2 ABG O2 Saturation Oxyhemoglobin Sodium Chloride Carbon Dioxide BUN Glucose POC Glucose 221 H Calcium Ferritin 797.7 H AST Lactate Dehydrogenase 556 H C-Reactive Protein Total Protein Albumin Coronavirus (PCR) 01/28/21 01/28/21 01/29/21 18:21 21:45 01:48 WBC RBC MCV MCH RDW Lymph % (Auto) Lymph # (Auto) Seg Neutrophils % Seg Neuts % (Manual) Lymphocytes % (Manual) Seg Neutrophils # Man D-Dimer ABG pH ABG pO2 ABG O2 Saturation Oxyhemoglobin Sodium Chloride Carbon Dioxide BUN Glucose POC Glucose 214 H 148 H 248 H Calcium Ferritin AST Lactate Dehydrogenase C-Reactive Protein Total Protein Albumin Coronavirus (PCR) 01/29/21 01/29/21 01/29/21 05:17 10:17 11:39 WBC RBC MCV MCH RDW Lymph % (Auto) Lymph # (Auto) Seg Neutrophils % Seg Neuts % (Manual) Lymphocytes % (Manual) Seg Neutrophils # Man D-Dimer ABG pH ABG pO2 ABG O2 Saturation Oxyhemoglobin Sodium Chloride Carbon Dioxide BUN Glucose POC Glucose 256 H 193 H 177 H Calcium Ferritin AST Lactate Dehydrogenase C-Reactive Protein Total Protein Albumin Coronavirus (PCR) 01/29/21 01/29/21 01/30/21 18:06 20:24 06:07 WBC RBC MCV MCH RDW Lymph % (Auto) Lymph # (Auto) Seg Neutrophils % Seg Neuts % (Manual) Lymphocytes % (Manual) Seg Neutrophils # Man D-Dimer ABG pH ABG pO2 ABG O2 Saturation Oxyhemoglobin Sodium Chloride Carbon Dioxide BUN Glucose POC Glucose 107 H 114 H 114 H Calcium Ferritin AST Lactate Dehydrogenase C-Reactive Protein Total Protein Albumin Coronavirus (PCR) 01/30/21 12:08 WBC RBC MCV MCH RDW Lymph % (Auto) Lymph # (Auto) Seg Neutrophils % Seg Neuts % (Manual) Lymphocytes % (Manual) Seg Neutrophils # Man D-Dimer ABG pH ABG pO2 ABG O2 Saturation Oxyhemoglobin Sodium Chloride Carbon Dioxide BUN Glucose POC Glucose 178 H Calcium Ferritin AST Lactate Dehydrogenase C-Reactive Protein Total Protein Albumin Coronavirus (PCR)
--- NOTE | 2021-01-30 12:26 | Progress Note ---
Assessment and Plan Cultures: COVID-19 PCR: Positive 01/17/2021 blood culture: No growth A/P: 55-year-old female past medical history schizophrenia admitted to hospital with COVID-19. #Severe COVID-19 pneumonia: Inflammatory markers elevated. No evidence of pulmonary embolism on CT. s/p abx, completed remdesivir, s/p Actemra on 01/20/2021 #Acute hypoxemic respiratory failure: secondary to COVID-19 infection. On HFNC. #Obesity Recs: -s/p abx, steroids, remdesivir, s/p Actemra on 01/20/2021 -Anticoagulation per protocol. d-dimer downtrending/stable -wean oxygen as tolerated. Pulmonary managing ID will sign off. Plase call with questions. Aiden Torres MD, FACP [facility] ([facility] O: [phone] F: [phone] Subjective Date of service: 01/30/21 Principal diagnosis: Covid-19 Interval history: No fever. Remains on HFNC. Objective - Exam Narrative Exam: Physical Exam (reviewed in chart to minimize risk of transmission) Constitutional: deferred Head, Ears, Nose: deferred Eyes: deferred Neck: deferred Oral: deferred Cardiovascular: deferred Respiratory: deferred GI: deferred Musculoskeletal: deferred Skin: deferred Hem/Lymphatic: deferred Psych: deferred Neurological: deferred - Constitutional Vitals: Vital Signs Temp Pulse Resp BP Pulse Ox 98.8 F 66 18 133/59 92 01/30/21 03:16 01/30/21 10:31 01/30/21 03:16 01/30/21 03:16 01/30/21 08:00 Temperature -Last 24 Hours Temperature 98.8 F Temperature 98.0 F Temperature 97.8 F Temperature 98.4 F - Labs CBC & Chem 7: 01/27/21 04:22 01/27/21 04:22 Labs: Abnormal lab results 01/29/21 01/29/21 01/30/21 Range/Units 18:06 20:24 06:07 POC Glucose 107 H 114 H 114 H (70-105) mg/dL 01/30/21 Range/Units 12:08 POC Glucose 178 H (70-105) mg/dL
[2021-01-30] MEDS ORDERED: FUROSEMIDE 20 MG/2 ML INJ IV NR (12:30)
[2021-01-30] MEDS: MIRTAZAPINE 15 MG TAB PO SCH (21:50)
[2021-01-31] MEDS: IPRATROPIUM/ALBUTEROL SULFATE 3 ML AMPUL.NEB IH SCH ×4 (02:11→21:48)
[2021-01-31] MEDS: INSULIN LISPRO 100 UNIT/ML SUB-Q SCH ×5 (05:37→22:41)
--- NOTE | 2021-01-31 07:10 | Progress Note ---
Assessment and Plan Assessment and plan: This is a 55-year-old female with schizophrenia who presented to [facility] on 01/18 for shortness of breath, cough, subjective fever and not feeling well for the last couple days with known COVID-19 exposure. While in the emergency room patient was switched from non rebreather mask to high flow nasal cannula and his CTA chest showed no acute pulmonary embolism. Patient was admitted to the hospital service as a COVID-19 PUI with consults to CCM, infectious disease, psych. Severe COVID-19 pneumonia Acute hypoxic respiratory failure Obesity Schizophrenia Leukocytosis Hyperglycemia Schizophrenia Hypernatremia Hypercholermia -CCM, infectious disease, psychiatry consulted, appreciate recommendations -COVID-19 PCR positive -Droplet/contact isolation -Remdesivir, azithromycin, ceftriaxone, dexamethasone (twice daily dosing) -s/p Actemra -Wean supplemental oxygen as tolerated, pulmonary hygiene -Prone as tolerated -Trend COVID-19 inflammatory markers for risk stratification, CBC, CMP -SSI, Lantus -01/18 bilateral lower extremity Doppler ultrasound negative for DVT -01/17 CTA shows no evidence of pulmonary embolism, extensive bilateral pneumonia, hepatomegaly with hepatic steatosis 01/18/2021 -Acute hypoxic respiratory failure requiring high flow oxygen 40 L. Nebulizer treatment -Patient is admitted for suspected Covid pneumonia. Patient is on dexamethasone, COVID-19 test is pending. Patient is on empiric antibiotics. -ID consulted, will consult pulmonary. -Patient has hyponatremia yesterday and I will repeat and if it is low I will manage accordingly -Patient has elevated D-dimer and CTA chest and bilateral Doppler ultrasound of the lower extremities pending 01/19/2021 -Acute hypoxic respiratory failure currently on BiPAP, nebulizer treatment. I will put in orders to transfer to [facility] yesterday but there was no bed. -Patient is positive for Covid and she is on Decadron and remdesivir. Actemra was ordered on 01/19/2021 -ID evaluated the patient and recommend to continue Decadron and remdesivir, also to continue ceftriaxone and azithromycin for 5 days because of the elevated procalcitonin level. Pulmonary was consulted and recommend to continue current management and add Lasix -CTA chest was done and significant for bilateral pulmonary opacities, negative for PE, Doppler ultrasound of the lower extremities was negative for DVT. -Prognosis is guarded. -Patient is currently on BiPAP and she was agitated and trying to take off the BiPAP, I put the patient on restraints. Discussed with warehouse hand to transfer the patient to IMCU and if there is no bed she need to be transferred to CCU. 01/20: Patient received 5 mg of Haldol for severe agitation and refusal to keep high flow nasal cannula in place. [facility] ordered Lasix again. Psych was consulted today. Patient was on BiPAP therapy all night and RT attempted to give her a break patient is on high flow nasal cannula however she did not keep this in place and was paced back on BiPAP after receiving Haldol. She was started on Lantus today. 01/21: Patient is on BiPAP and on time examination was on 20/10 100% FiO2. Patient was started on Lantus. Psych consult completed and started on Haldol p.o. twice daily and Mirtazepin PO daily. No acute events reported overnight. Patient's D-dimer is greater than 10,000 started on prophylactic Lovenox as recent CTA chest and bilateral lower extremity Doppler ultrasound were negative. 01/22: Patient has been taken off BiPAP therapy and placed on high flow nasal cannula. Patient has been downgraded to IMCU. Patient's hyponatremia and hypochloremia have worsened. 01/23: Patient was on BiPAP overnight with FiO2 85% and IPAP 20/EPAP 10. Patient currently with high flow nasal cannula 40 L O2 with an FiO2 of 100%. Continue remdesivir and dexamethasone. Patient is s/p Actemra on 01/20. Continue empiric antibiotics per ID recommendations. Continue anticoagulation per protocol. 01/24: Patient is tachycardic and hypertensive and [facility] has opted to add amlo dipine. Patient remains on 40 L 100% high flow nasal cannula. Continue remdesivir and dexamethasone. Patient is s/p Actemra on 01/20. Continue empiric antibiotics per ID recommendations. Continue anticoagulation per protocol. 01/25: Patient currently with high flow nasal cannula 40 L/min with FiO2 100%. Continue dexamethasone. Patient has completed remdesivir and s/p Actemra on 01/20. Continue full dose anticoagulation given high elevated D-dimer. Continue to trend inflammatory markers. Prognosis remains guarded. 01/26: Patient currently with high flow nasal cannula 35 L/min and FiO2 90%. Continue dexamethasone. Patient has completed remdesivir and s/p Actemra on 01/20. Continue full dose anticoagulation given high elevated D-dimer. Continue to trend inflammatory markers. Prognosis remains guarded. 01/27: Patient currently with high flow nasal cannula/Vapotherm 35 L/min O2 with F iO2 90%. Patient has completed remdesivir and s/p Actemra on 01/20. Continue full dose anticoagulation given high elevated D-dimer. Continue to trend inflammatory markers. Prognosis remains guarded. 01/28; Patient currently with high flow nasal cannula/Vapotherm 35 L/min O2 with FiO2 90%. Patient has completed remdesivir and s/p Actemra on 01/20. Continue full dose anticoagulation given high elevated D-dimer. Continue to trend inflammatory markers. Prognosis remains guarded. 01/29; patient is currently on 35 L of high flow oxygen. Prognosis guarded. Patient can be transferred to regular floor. 01/30/2021; patient is currently on 35 L of high flow oxygen, FiO2 of 65%. Patient has flat affect and did not talk to me. Patient refused most of her p.o. medications. Patient finished remdesivir, steroid. 01/31/2021; patient is on 35 L of high flow oxygen, FiO2 65%. Patient was calm and cooperative and communicative today. pulmonary is following. Patient finished remdesivir and steroid. History Interval history: Patient was seen and evaluated this morning Patient was on high flow oxygen 35 L, FiO2 65% Patient was on restraints Patient was alert and oriented and communicative today Hospitalist Physical - Physical exam Narrative exam: Patient was on 35 L high flow oxygen The patient appeared well nourished and normally developed. Vital signs as documented. Head exam is unremarkable. No scleral icterus . Neck is without jugular venous distension, thyromegaly, or carotid bruits. Lungs decreased air entry on both lungs Cardiac exam reveals regular rate and Rhythm. Abdominal exam reveals normal bowel sounds, nontender, no organomegaly. Extremities are nonedematous and both femoral and pedal pulses are normal. MANAGER PULMONARY: Patient was on restraints, patient was alert and communicative today. - Constitutional Vitals: Temp Pulse Resp BP Pulse Ox 98.5 F 112 H 18 96/51 89 01/31/21 06:02 01/31/21 06:02 01/31/21 06:02 01/31/21 06:02 01/31/21 06:02 General appearance: Present: no acute distress, well-nourished HEART Score - HEART Score Troponin: Troponin T < 0.010 ng/mL (0.00-0.029) 01/17/21 16:41 Results - Labs CBC & Chem 7: 01/27/21 04:22 01/31/21 06:42 Labs: Laboratory Last Values WBC 6.9 K/mm3 (4.5-11.0) 01/27/21 04:22 RBC 5.15 M/mm3 (3.65-5.03) H 01/27/21 04:22 Hgb 11.9 gm/dl (10.1-14.3) 01/27/21 04:22 Hct 39.1 % (30.3-42.9) 01/27/21 04:22 MCV 76 fl (79-97) L 01/27/21 04:22 MCH 23 pg (28-32) L 01/27/21 04:22 MCHC 30 % (30-34) 01/27/21 04:22 RDW 15.5 % (13.2-15.2) H 01/27/21 04:22 Plt Count 227 K/mm3 (140-440) 01/27/21 04:22 Lymph % (Auto) 12.7 % (13.4-35.0) L 01/27/21 04:22 [place] % (Auto) 5.3 % (0.0-7.3) 01/27/21 04:22 Eos % (Auto) 0.5 % (0.0-4.3) 01/27/21 04:22 Baso % (Auto) 0.2 % (0.0-1.8) 01/27/21 04:22 Lymph # (Auto) 0.9 K/mm3 (1.2-5.4) L 01/27/21 04:22 [place] # (Auto) 0.4 K/mm3 (0.0-0.8) 01/27/21 04:22 Eos # (Auto) 0.0 K/mm3 (0.0-0.4) 01/27/21 04:22 Baso # (Auto) 0.0 K/mm3 (0.0-0.1) 01/27/21 04:22 Add Manual Diff Complete 01/19/21 05:11 Total Counted 100 01/19/21 05:11 Seg Neutrophils % 81.3 % (40.0-70.0) H 01/27/21 04:22 Seg Neuts % (Manual) 88.0 % (40.0-70.0) H 01/19/21 05:11 Lymphocytes % (Manual) 10.0 % (13.4-35.0) L 01/19/21 05:11 Monocytes % (Manual) 2.0 % (0.0-7.3) 01/19/21 05:11 Nucleated RBC % Not Reportable 01/19/21 05:11 Seg Neutrophils # 5.6 K/mm3 (1.8-7.7) 01/27/21 04:22 Seg Neutrophils # Man 12.5 K/mm3 (1.8-7.7) H 01/19/21 05:11 Band Neutrophils # 0.0 K/mm3 01/19/21 05:11 Lymphocytes # (Manual) 1.4 K/mm3 (1.2-5.4) 01/19/21 05:11 Abs React Lymphs (Man) 0.0 K/mm3 01/19/21 05:11 Monocytes # (Manual) 0.3 K/mm3 (0.0-0.8) 01/19/21 05:11 Eosinophils # (Manual) 0.0 K/mm3 (0.0-0.4) 01/19/21 05:11 Basophils # (Manual) 0.0 K/mm3 (0.0-0.1) 01/19/21 05:11 Metamyelocytes # 0.0 K/mm3 01/19/21 05:11 Myelocytes # 0.0 K/mm3 01/19/21 05:11 Promyelocytes # 0.0 K/mm3 01/19/21 05:11 Blast Cells # 0.0 K/mm3 01/19/21 05:11 WBC Morphology Not Reportable 01/19/21 05:11 Hypersegmented Neuts Not Reportable 01/19/21 05:11 Hyposegmented Neuts Not Reportable 01/19/21 05:11 Hypogranular Neuts Not Reportable 01/19/21 05:11 Smudge Cells Not Reportable 01/19/21 05:11 Toxic Granulation Not Reportable 01/19/21 05:11 Toxic Vacuolation Not Reportable 01/19/21 05:11 Dohle Bodies Not Reportable 01/19/21 05:11 Pelger-Huet Anomaly Not Reportable 01/19/21 05:11 Inder Rods Not Reportable 01/19/21 05:11 Platelet Estimate Consistent w auto 01/19/21 05:11 Clumped Platelets Not Reportable 01/19/21 05:11 Plt Clumps, EDTA Not Reportable 01/19/21 05:11 Large Platelets Not Reportable 01/19/21 05:11 Giant Platelets Not Reportable 01/19/21 05:11 Platelet Satelliting Not Reportable 01/19/21 05:11 Plt Morphology Comment Not Reportable 01/19/21 05:11 RBC Morphology Not Reportable 01/19/21 05:11 Dimorphic RBCs Not Reportable 01/19/21 05:11 Polychromasia Not Reportable 01/19/21 05:11 Hypochromasia 1+ 01/19/21 05:11 Poikilocytosis Not Reportable 01/19/21 05:11 Anisocytosis Not Reportable 01/19/21 05:11 Microcytosis Not Reportable 01/19/21 05:11 Macrocytosis Not Reportable 01/19/21 05:11 Spherocytes Not Reportable 01/19/21 05:11 Pappenheimer Bodies Not Reportable 01/19/21 05:11 Sickle Cells Not Reportable 01/19/21 05:11 Target Cells Not Reportable 01/19/21 05:11 Tear Drop Cells Not Reportable 01/19/21 05:11 Ovalocytes Not Reportable 01/19/21 05:11 Helmet Cells Not Reportable 01/19/21 05:11 Navarro-Arnold Bodies Not Reportable 01/19/21 05:11 S[place]y Rings Not Reportable 01/19/21 05:11 [place] Cells Not Reportable 01/19/21 05:11 Bite Cells Not Reportable 01/19/21 05:11 Crenated Cell Not Reportable 01/19/21 05:11 Elliptocytes Not Reportable 01/19/21 05:11 Acanthocytes (Spur) Not Reportable 01/19/21 05:11 Rouleaux Not Reportable 01/19/21 05:11 Hemoglobin C Crystals Not Reportable 01/19/21 05:11 Schistocytes Not Reportable 01/19/21 05:11 Malaria parasites Not Reportable 01/19/21 05:11 Chai Bodies Not Reportable 01/19/21 05:11 Hem Pathologist Commnt No 01/19/21 05:11 D-Dimer 1884.49 ng/mlDDU (0-234) H 01/28/21 08:46 ABG pH 7.461 pH Units (7.350-7.450) H 01/18/21 17:18 ABG pCO2 36.6 mm Hg 01/18/21 17:18 ABG pO2 53.1 mm Hg (80.0-90.0) L 01/18/21 17:18 ABG HCO3 25.5 mmol/L (20.0-26.0) 01/18/21 17:18 ABG O2 Saturation 89.4 % (95.0-99.0) L 01/18/21 17:18 ABG O2 Content 15.1 (0.0-44) 01/18/21 17:18 ABG Base Excess 1.9 mmol/L (-2.0-3.0) 01/18/21 17:18 ABG Hemoglobin 12.2 gm/dl (12.0-16.0) 01/18/21 17:18 ABG Carboxyhemoglobin 1.2 % (0.0-5.0) 01/18/21 17:18 ABG Methemoglobin 0.5 % (0.0-1.5) 01/18/21 17:18 Oxyhemoglobin 88.0 % (95.0-99.0) L 01/18/21 17:18 FiO2 100 % 01/18/21 17:18 Sodium 145 mmol/L (137-145) 01/27/21 04:22 Potassium 4.4 mmol/L (3.6-5.0) 01/27/21 04:22 Chloride 107.7 mmol/L (98-107) H 01/27/21 04:22 Carbon Dioxide 27 mmol/L (22-30) 01/27/21 04:22 Anion Gap 15 mmol/L 01/27/21 04:22 BUN 30 mg/dL (7-17) H 01/27/21 04:22 Creatinine 0.7 mg/dL (0.6-1.2) 01/27/21 04:22 Estimated GFR > 60 ml/min 01/27/21 04:22 BUN/Creatinine Ratio 43 % 01/27/21 04:22 Glucose 281 mg/dL (65-100) H 01/27/21 04:22 POC Glucose 244 mg/dL (70-105) H 01/30/21 21:19 Lactic Acid 1.70 mmol/L (0.7-2.0) 01/17/21 16:41 Calcium 8.4 mg/dL (8.4-10.2) 01/27/21 04:22 Ferritin 797.7 ng/mL (10.0-200.0) H 01/28/21 08:46 Total Bilirubin 0.30 mg/dL (0.1-1.2) 01/21/21 11:29 AST 34 units/L (5-40) 01/21/21 11:29 ALT 38 units/L (7-56) 01/21/21 11:29 Alkaline Phosphatase 117 units/L (35-129) 01/21/21 11:29 Lactate Dehydrogenase 556 units/L (91-180) H 01/28/21 08:46 Troponin T < 0.010 ng/mL (0.00-0.029) 01/17/21 16:41 C-Reactive Protein 0.20 mg/dL (0.00-1.30) 01/28/21 08:46 NT-Pro-B Natriuret Pep 40.88 pg/mL (0-900) 01/17/21 16:41 Total Protein 7.3 g/dL (6.3-8.2) 01/21/21 11:29 Albumin 3.4 g/dL (3.9-5) L 01/21/21 11:29 Albumin/Globulin Ratio 0.9 % 01/21/21 11:29 Procalcitonin 0.39 ng/mL (<0.15) 01/17/21 17:46 Coronavirus (PCR) Positive (Negative) A 01/17/21 09:25 Estrada/IV: Voiding Method Incontinent Active Medications - Current Medications Current Medications: Generic Name Dose Route Start Last Admin Trade Name Freq PRN Reason Stop Dose Admin Acetaminophen 650 mg 01/18/21 00:36 01/22/21 23:46 Acetaminophen 325 Mg Tab PO 650 mg Q4H PRN Administration Pain MILD(1-3)/Fever >100.5/PAN Albuterol/Ipratropium 1 ampul 01/18/21 02:00 01/31/21 02:11 Ipratropium/Albuterol Sulfate 3 Ml Ampul.Neb IH 1 ampul Q6HRT PJ Administration Amlodipine Besylate 5 mg 01/24/21 15:00 01/30/21 10:31 Amlodipine 5 Mg Tab PO 5 mg QDAY PJ Administration Enoxaparin Sodium 100 mg 01/21/21 10:00 01/30/21 21:50 Enoxaparin 100 Mg/1 Ml Inj 1 mg/kg (100 mg) 100 mg SUB-Q Administration Q12HR [facility] Protocol Famotidine 20 mg 01/18/21 10:00 01/30/21 21:50 Famotidine 20 Mg Tab PO 20 mg BID PJ Administration Haloperidol Lactate 5 mg 01/29/21 11:30 Haloperidol Lactate 5 Mg/1 Ml Inj IM Q6H PRN Agitation Hydralazine HCl 10 mg 01/18/21 00:38 01/24/21 23:12 Hydralazine 20 Mg/1 Ml Inj IV 10 mg Q6H PRN Administration htn Hydromorphone HCl 0.5 mg 01/20/21 11:00 Hydromorphone 1 Mg/1 Ml Inj IV Q6H PRN Pain , Severe (7-10) Insulin Glargine 20 units 01/20/21 22:00 01/30/21 21:55 Insulin Glargine 100 Units/Ml SUB-Q 20 units QHS PJ Administration Insulin Glargine 20 units 01/24/21 10:00 01/30/21 10:57 Insulin Glargine 100 Units/Ml SUB-Q 20 units DAILY PJ Administration Insulin Human Lispro 0 unit 01/21/21 14:00 01/31/21 05:38 Insulin Lispro 100 Unit/Ml SUB-Q Not Given Q4HR [facility] Protocol Mirtazapine 7.5 mg 01/21/21 22:00 01/30/21 21:50 Mirtazapine 15 Mg Tab PO 7.5 mg QHS PJ Administration Ondansetron HCl 4 mg 01/18/21 00:36 Ondansetron 4 Mg/2 Ml Inj IV Q8H PRN Nausea And Vomiting Sodium Chloride 10 ml 01/18/21 10:00 01/30/21 21:51 Sodium Chloride 0.9% 10 Ml Flush Syringe IV 10 ml BID PJ Administration Sodium Chloride 10 ml 01/18/21 00:36 Sodium Chloride 0.9% 10 Ml Flush Syringe IV PRN PRN LINE FLUSH Ziprasidone 10 mg 01/20/21 10:57 01/29/21 11:15 Ziprasidone Mesylate 20 Mg Vial IM 10 mg Q6H PRN Administration AGITATION Nutrition/Malnutrition Assess - Dietary Evaluation Nutrition/Malnutrition Findings: Nutrition Notes Start: 01/24/21 10:40 Freq: Status: Active Protocol: Document 01/28/21 14:05 AT (Rec: 01/28/21 14:17 AT [id number]) Co-Sign 01/28/21 14:05 CW Nutrition Notes Initial or Follow up Reassessment Current Diagnosis Respiratory Failure Other Pertinent Diagnosis pneu, COVID-19(+), AMS Current Diet Cardiac diet with Consistent CHO modifications Labs/Tests / BUN 30 POC BG 210 Pertinent Medications Decadron Lantus Humalog Remeron Height 5 ft 4 in Weight 92.9 kg [place] Body Weight (kg) 54.54 BMI 35.2 Weight Status Obese Subjective/Other Information Follow up for intakes and ONS tolerance. Per RN, pt consumed 100% of breakfast and >75% of lunch; RN is uncertain whether pt is drinking ONS, but there was one empty bottle found in room. Will continue to monitor pt for intakes and BG levels. Percent of energy/protein needs met: 98%/100% Burn Absent Trauma Absent Current % PO Good (75-100%) Minimum of two criteria No Energy Intake (non-severe) <75% Estimated Energy Requirement >7 days #1 Nutrition Diagnosis Inadequate oral intake As Evidenced by Signs and Symptoms pt consuming 87.5% of meals and some of ONS Diagnosis Progress(for reassessment Improved documentation) Is patient on ventilator? No Is Patient Ambulatory and/or Out of Bed No REE-([facility]-confined to bed) 1809.060 Kcal/Kg value to use for calculation 15 Approximate Energy Requirements Using 1394 kcal/Kg Calculation Used for Recommendations Kcal/kg Additional Notes PRO needs: 59-74 g(0.8-1 g/kg AdBW 74 kg) Fluid needs: 1mL/kcal Nutrition Intervention Change Diet Order: Continue Cardiac with Consistent CHO modifications Add Supplement/Snack (indicate name/kcal Glucerna BID /protein ) Provides kCal: 440 Provides Protein (gm) 20 Goal #1 Meet at least 75% of energy and protein needs via PO and ONS intakes Anticipated Discharge Needs: Cardiac/Consistent CHO Follow-Up By: 01/31/21 Additional Comments F/U for stable intakes and ONS tolerance
[2021-01-31 08:09] LABS: Blood Urea Nitrogen 20 mg/dL (7-17); Hemolysis Index 2
[2021-01-31 08:20] LABS: BUN/Creatinine Ratio 33
[2021-01-31] MEDS: ENOXAPARIN 100 MG/1 ML INJ SUB-Q SCH ×2 (09:59→22:41)
[2021-01-31] MEDS: FAMOTIDINE 20 MG TAB PO SCH ×2 (09:59→22:41)
[2021-01-31] MEDS: amLODIPine 5 MG TAB PO SCH (09:59)
[2021-01-31] MEDS: INSULIN GLARGINE 100 UNITS/ML SUB-Q SCH ×2 (10:00→22:41)
[2021-01-31] MEDS ORDERED: FUROSEMIDE 40 MG/4 ML INJ IV ONE (11:18)
--- NOTE | 2021-01-31 11:20 | Progress Note ---
Assessment and Plan 55 y/o female admitted with acute respiratory failure secondary to pneumonia, positive for Sars CoV2 01/31/21: Increased lasix to 40 today. Prone if possible. 01/30/21: Lasix 20mg IV today. Continue Antipsychotic therapy management. Prone as tolerated if patient willing. 01/29/21: Will give lasix again today. Will change Haldol to IM since patient is refusing PO meds. 01/28/21: Will give lasix again today. Continue all other therapies. Prone if patient will and tolerate. STeroids. Guarded prognosis. 01/20/21: Gave Haldol 5 and patient has calmed down and become more appropriate, allowing us to place bipap back on. COntinue steroids and remdesivir therapy. Doubt patient will be able to prone successfully. Will try lasix today again to see if this helps. Very very guarded prognosis. 01/19/21: Continue decadron, suggest increase given patient body habitus to BID. ID consult for Remdesivir therapy and to see if she is a candidate for Actemra. Prone as tolerated during the day and sleep prone at night. Will give lasix again today. Guarded prognosis. 1. Prone 2. Lasix 3. Agree with steroids 4. Follow up COVID testing Guarded prognosis Subjective Date of service: 01/31/21 Principal diagnosis: Covid-19 Interval history: No acute events. Finally documented as negative but oxygen had to be increased to 70%. No documentation of proning. Objective Vital Signs - 12hr 01/31/21 01/31/21 01/31/21 02:00 06:02 09:30 Temperature 98.5 F Pulse Rate 112 H Pulse Rate [ 118 H Anterior Bilateral Throughout] Respiratory 18 Rate Respiratory 22 Rate [Anterior Bilateral Throughout] Blood Pressure 96/51 O2 Sat by Pulse 94 89 89 Oximetry 01/31/21 01/31/21 09:35 09:59 Temperature Pulse Rate 112 H Pulse Rate [ 96 H Anterior Bilateral Throughout] Respiratory Rate Respiratory 18 Rate [Anterior Bilateral Throughout] Blood Pressure 96/51 O2 Sat by Pulse Oximetry Constitutional: alert, other (critically ill on HFNC 100% FiO2) Eyes: non-icteric ENT: oropharynx moist Neck: supple, other (large in circumference) Effort: mildly labored Ascultation: Bilateral: clear Cardiovascular: other (tachy, RR; no mrg) Gastrointestinal: normoactive bowel sounds, soft, non-tender, non-distended Integumentary: normal Extremities: no cyanosis, no edema, pink and warm Neurologic: normal mental status, non-focal exam, pupils equal and round Psychiatric: mood appropriate, affect normal CBC and BMP: 01/27/21 04:22 01/31/21 06:42 ABG, PT/INR, D-dimer: ABG ABG pH 7.461 pH Units (7.350-7.450) H 01/18/21 17:18 ABG pCO2 36.6 mm Hg 01/18/21 17:18 ABG pO2 53.1 mm Hg (80.0-90.0) L 01/18/21 17:18 ABG O2 Saturation 89.4 % (95.0-99.0) L 01/18/21 17:18 PT/INR, D-dimer D-Dimer 1884.49 ng/mlDDU (0-234) H 01/28/21 08:46 Abnormal lab findings: Abnormal Labs 01/17/21 01/17/21 01/17/21 09:25 16:41 16:41 WBC RBC 5.23 H MCV 76 L MCH 24 L RDW Lymph % (Auto) 9.4 L Lymph # (Auto) 0.8 L Seg Neutrophils % 85.4 H Seg Neuts % (Manual) Lymphocytes % (Manual) Seg Neutrophils # Man D-Dimer ABG pH ABG pO2 ABG O2 Saturation Oxyhemoglobin Sodium 128 L Chloride 90.8 L Carbon Dioxide BUN Glucose 372 H POC Glucose Calcium Ferritin AST 98 H Lactate Dehydrogenase C-Reactive Protein Total Protein Albumin 3.2 L Coronavirus (PCR) Positive A 01/17/21 01/17/21 01/17/21 17:46 17:46 17:46 WBC RBC MCV MCH RDW Lymph % (Auto) Lymph # (Auto) Seg Neutrophils % Seg Neuts % (Manual) Lymphocytes % (Manual) Seg Neutrophils # Man D-Dimer 1058.54 H ABG pH ABG pO2 ABG O2 Saturation Oxyhemoglobin Sodium Chloride Carbon Dioxide BUN Glucose 369 H POC Glucose Calcium Ferritin 668.4 H AST Lactate Dehydrogenase 519 H C-Reactive Protein 19.20 H Total Protein Albumin Coronavirus (PCR) 01/18/21 01/18/21 01/19/21 09:01 17:18 05:11 WBC 14.2 H RBC MCV 74 L MCH 23 L RDW Lymph % (Auto) Lymph # (Auto) Seg Neutrophils % Seg Neuts % (Manual) 88.0 H Lymphocytes % (Manual) 10.0 L Seg Neutrophils # Man 12.5 H D-Dimer ABG pH 7.461 H ABG pO2 53.1 L ABG O2 Saturation 89.4 L Oxyhemoglobin 88.0 L Sodium 132 L Chloride 93.6 L Carbon Dioxide BUN 18 H Glucose 367 H POC Glucose Calcium 7.8 L Ferritin AST Lactate Dehydrogenase C-Reactive Protein Total Protein Albumin Coronavirus (PCR) 01/19/21 01/19/21 01/19/21 05:11 11:06 14:43 WBC RBC MCV MCH RDW Lymph % (Auto) Lymph # (Auto) Seg Neutrophils % Seg Neuts % (Manual) Lymphocytes % (Manual) Seg Neutrophils # Man D-Dimer ABG pH ABG pO2 ABG O2 Saturation Oxyhemoglobin Sodium Chloride Carbon Dioxide BUN 18 H Glucose 304 H 379 H POC Glucose 382 H Calcium 8.3 L Ferritin AST 92 H 96 H Lactate Dehydrogenase C-Reactive Protein Total Protein Albumin 3.0 L 3.0 L Coronavirus (PCR) 01/19/21 01/19/21 01/20/21 16:18 22:18 07:31 WBC RBC MCV MCH RDW Lymph % (Auto) Lymph # (Auto) Seg Neutrophils % Seg Neuts % (Manual) Lymphocytes % (Manual) Seg Neutrophils # Man D-Dimer ABG pH ABG pO2 ABG O2 Saturation Oxyhemoglobin Sodium Chloride Carbon Dioxide BUN Glucose POC Glucose 374 H 341 H 344 H Calcium Ferritin AST Lactate Dehydrogenase C-Reactive Protein Total Protein Albumin Coronavirus (PCR) 01/20/21 01/20/21 01/20/21 07:33 12:14 13:54 WBC RBC MCV MCH RDW Lymph % (Auto) Lymph # (Auto) Seg Neutrophils % Seg Neuts % (Manual) Lymphocytes % (Manual) Seg Neutrophils # Man D-Dimer ABG pH ABG pO2 ABG O2 Saturation Oxyhemoglobin Sodium Chloride Carbon Dioxide BUN 32 H 31 H Glucose 343 H 396 H POC Glucose 365 H Calcium Ferritin AST 57 H 54 H Lactate Dehydrogenase C-Reactive Protein Total Protein 8.3 H Albumin 2.7 L 3.1 L Coronavirus (PCR) 01/20/21 01/20/21 01/21/21 18:28 21:25 04:45 WBC RBC MCV MCH RDW Lymph % (Auto) Lymph # (Auto) Seg Neutrophils % Seg Neuts % (Manual) Lymphocytes % (Manual) Seg Neutrophils # Man D-Dimer ABG pH ABG pO2 ABG O2 Saturation Oxyhemoglobin Sodium Chloride Carbon Dioxide 31 H BUN 41 H Glucose 377 H POC Glucose 403 H 340 H Calcium Ferritin AST Lactate Dehydrogenase C-Reactive Protein Total Protein 8.3 H Albumin 3.0 L Coronavirus (PCR) 01/21/21 01/21/21 01/21/21 04:45 04:45 04:45 WBC RBC MCV MCH RDW Lymph % (Auto) Lymph # (Auto) Seg Neutrophils % Seg Neuts % (Manual) Lymphocytes % (Manual) Seg Neutrophils # Man D-Dimer > 74185 H ABG pH ABG pO2 ABG O2 Saturation Oxyhemoglobin Sodium Chloride Carbon Dioxide BUN Glucose POC Glucose Calcium Ferritin 1688.0 H AST Lactate Dehydrogenase 649 H C-Reactive Protein 17.00 H Total Protein Albumin Coronavirus (PCR) 01/21/21 01/21/21 01/21/21 09:45 11:29 12:09 WBC RBC MCV MCH RDW Lymph % (Auto) Lymph # (Auto) Seg Neutrophils % Seg Neuts % (Manual) Lymphocytes % (Manual) Seg Neutrophils # Man D-Dimer ABG pH ABG pO2 ABG O2 Saturation Oxyhemoglobin Sodium 151 H Chloride Carbon Dioxide BUN 40 H Glucose 412 H POC Glucose 401 H 372 H Calcium Ferritin AST Lactate Dehydrogenase C-Reactive Protein Total Protein Albumin 3.4 L Coronavirus (PCR) 01/21/21 01/21/21 01/22/21 18:26 21:09 02:00 WBC RBC MCV MCH RDW Lymph % (Auto) Lymph # (Auto) Seg Neutrophils % Seg Neuts % (Manual) Lymphocytes % (Manual) Seg Neutrophils # Man D-Dimer ABG pH ABG pO2 ABG O2 Saturation Oxyhemoglobin Sodium Chloride Carbon Dioxide BUN Glucose POC Glucose 376 H 322 H 231 H Calcium Ferritin AST Lactate Dehydrogenase C-Reactive Protein Total Protein Albumin Coronavirus (PCR) 01/22/21 01/22/21 01/22/21 05:24 08:25 08:25 WBC RBC 5.44 H MCV 75 L MCH 23 L RDW 15.5 H Lymph % (Auto) Lymph # (Auto) Seg Neutrophils % Seg Neuts % (Manual) Lymphocytes % (Manual) Seg Neutrophils # Man D-Dimer ABG pH ABG pO2 ABG O2 Saturation Oxyhemoglobin Sodium 155 H Chloride 112.4 H Carbon Dioxide BUN 33 H Glucose 274 H POC Glucose 275 H Calcium Ferritin AST Lactate Dehydrogenase C-Reactive Protein Total Protein Albumin Coronavirus (PCR) 01/22/21 01/22/21 01/22/21 11:53 16:03 21:41 WBC RBC MCV MCH RDW Lymph % (Auto) Lymph # (Auto) Seg Neutrophils % Seg Neuts % (Manual) Lymphocytes % (Manual) Seg Neutrophils # Man D-Dimer ABG pH ABG pO2 ABG O2 Saturation Oxyhemoglobin Sodium Chloride Carbon Dioxide BUN Glucose POC Glucose 265 H 293 H 279 H Calcium Ferritin AST Lactate Dehydrogenase C-Reactive Protein Total Protein Albumin Coronavirus (PCR) 01/23/21 01/23/21 01/23/21 02:03 05:46 05:59 WBC RBC MCV MCH RDW Lymph % (Auto) Lymph # (Auto) Seg Neutrophils % Seg Neuts % (Manual) Lymphocytes % (Manual) Seg Neutrophils # Han D-Dimer ABG pH ABG pO2 ABG O2 Saturation Oxyhemoglobin Sodium Chloride Carbon Dioxide BUN Glucose POC Glucose 268 H 303 H Calcium Ferritin 1116.0 H AST Lactate Dehydrogenase C-Reactive Protein Total Protein Albumin Coronavirus (PCR) 01/23/21 01/23/21 01/23/21 05:59 07:42 09:11 WBC RBC MCV MCH RDW Lymph % (Auto) Lymph # (Auto) Seg Neutrophils % Seg Neuts % (Manual) Lymphocytes % (Manual) Seg Neutrophils # Man D-Dimer ABG pH ABG pO2 ABG O2 Saturation Oxyhemoglobin Sodium Chloride Carbon Dioxide BUN Glucose POC Glucose 291 H 285 H Calcium Ferritin AST Lactate Dehydrogenase 680 H C-Reactive Protein 5.80 H Total Protein Albumin Coronavirus (PCR) 01/23/21 01/23/21 01/23/21 14:06 17:05 17:59 WBC RBC MCV MCH RDW Lymph % (Auto) Lymph # (Auto) Seg Neutrophils % Seg Neuts % (Manual) Lymphocytes % (Manual) Seg Neutrophils # Man D-Dimer ABG pH ABG pO2 ABG O2 Saturation Oxyhemoglobin Sodium Chloride Carbon Dioxide BUN Glucose POC Glucose 228 H 300 H 278 H Calcium Ferritin AST Lactate Dehydrogenase C-Reactive Protein Total Protein Albumin Coronavirus (PCR) 01/23/21 01/24/21 01/24/21 21:43 02:14 05:15 WBC RBC MCV MCH RDW Lymph % (Auto) Lymph # (Auto) Seg Neutrophils % Seg Neuts % (Manual) Lymphocytes % (Manual) Seg Neutrophils # Man D-Dimer ABG pH ABG pO2 ABG O2 Saturation Oxyhemoglobin Sodium Chloride Carbon Dioxide BUN Glucose POC Glucose 223 H 427 H 392 H Calcium Ferritin AST Lactate Dehydrogenase C-Reactive Protein Total Protein Albumin Coronavirus (PCR) 01/24/21 01/24/21 01/24/21 07:03 07:03 09:10 WBC RBC 5.49 H MCV 75 L MCH 23 L RDW Lymph % (Auto) 7.0 L Lymph # (Auto) 0.5 L Seg Neutrophils % 86.1 H Seg Neuts % (Manual) Lymphocytes % (Manual) Seg Neutrophils # Man D-Dimer ABG pH ABG pO2 ABG O2 Saturation Oxyhemoglobin Sodium 149 H Chloride 111.4 H Carbon Dioxide BUN 24 H Glucose 339 H POC Glucose 284 H Calcium Ferritin AST Lactate Dehydrogenase C-Reactive Protein Total Protein Albumin Coronavirus (PCR) 01/24/21 01/24/21 01/24/21 13:47 18:30 21:58 WBC RBC MCV MCH RDW Lymph % (Auto) Lymph # (Auto) Seg Neutrophils % Seg Neuts % (Manual) Lymphocytes % (Manual) Seg Neutrophils # Man D-Dimer ABG pH ABG pO2 ABG O2 Saturation Oxyhemoglobin Sodium Chloride Carbon Dioxide BUN Glucose POC Glucose 317 H 180 H 262 H Calcium Ferritin AST Lactate Dehydrogenase C-Reactive Protein Total Protein Albumin Coronavirus (PCR) 01/25/21 01/25/21 01/25/21 01:22 05:35 08:36 WBC RBC MCV MCH RDW Lymph % (Auto) Lymph # (Auto) Seg Neutrophils % Seg Neuts % (Manual) Lymphocytes % (Manual) Seg Neutrophils # Man D-Dimer ABG pH ABG pO2 ABG O2 Saturation Oxyhemoglobin Sodium Chloride Carbon Dioxide BUN Glucose POC Glucose 280 H 243 H 216 H Calcium Ferritin AST Lactate Dehydrogenase C-Reactive Protein Total Protein Albumin Coronavirus (PCR) 01/25/21 01/25/21 01/25/21 15:14 15:14 15:14 WBC RBC MCV MCH RDW Lymph % (Auto) Lymph # (Auto) Seg Neutrophils % Seg Neuts % (Manual) Lymphocytes % (Manual) Seg Neutrophils # Man D-Dimer 6312.54 H ABG pH ABG pO2 ABG O2 Saturation Oxyhemoglobin Sodium 146 H Chloride 108.1 H Carbon Dioxide BUN 19 H Glucose 287 H POC Glucose Calcium 8.3 L Ferritin 869.5 H AST Lactate Dehydrogenase 685 H C-Reactive Protein Total Protein Albumin Coronavirus (PCR) 01/25/21 01/25/21 01/26/21 16:06 21:18 01:47 WBC RBC MCV MCH RDW Lymph % (Auto) Lymph # (Auto) Seg Neutrophils % Seg Neuts % (Manual) Lymphocytes % (Manual) Seg Neutrophils # Man D-Dimer ABG pH ABG pO2 ABG O2 Saturation Oxyhemoglobin Sodium Chloride Carbon Dioxide BUN Glucose POC Glucose 267 H 197 H 255 H Calcium Ferritin AST Lactate Dehydrogenase C-Reactive Protein Total Protein Albumin Coronavirus (PCR) 01/26/21 01/26/21 01/26/21 05:23 05:23 05:23 WBC RBC MCV MCH RDW Lymph % (Auto) Lymph # (Auto) Seg Neutrophils % Seg Neuts % (Manual) Lymphocytes % (Manual) Seg Neutrophils # Man D-Dimer 5809.58 H ABG pH ABG pO2 ABG O2 Saturation Oxyhemoglobin Sodium 149 H Chloride 109.3 H Carbon Dioxide BUN 24 H Glucose 362 H POC Glucose Calcium Ferritin 877.1 H AST Lactate Dehydrogenase 655 H C-Reactive Protein Total Protein Albumin Coronavirus (PCR) 01/26/21 01/26/21 01/26/21 05:23 06:06 09:28 WBC RBC 5.49 H MCV 77 L MCH 23 L RDW Lymph % (Auto) Lymph # (Auto) 0.8 L Seg Neutrophils % 78.9 H Seg Neuts % (Manual) Lymphocytes % (Manual) Seg Neutrophils # Man D-Dimer ABG pH ABG pO2 ABG O2 Saturation Oxyhemoglobin Sodium Chloride Carbon Dioxide BUN Glucose POC Glucose 387 H 308 H Calcium Ferritin AST Lactate Dehydrogenase C-Reactive Protein Total Protein Albumin Coronavirus (PCR) 01/26/21 01/26/21 01/27/21 15:56 21:28 02:51 WBC RBC MCV MCH RDW Lymph % (Auto) Lymph # (Auto) Seg Neutrophils % Seg Neuts % (Manual) Lymphocytes % (Manual) Seg Neutrophils # Man D-Dimer ABG pH ABG pO2 ABG O2 Saturation Oxyhemoglobin Sodium Chloride Carbon Dioxide BUN Glucose POC Glucose 172 H 316 H 267 H Calcium Ferritin AST Lactate Dehydrogenase C-Reactive Protein Total Protein Albumin Coronavirus (PCR) 01/27/21 01/27/21 01/27/21 04:22 04:22 04:22 WBC RBC MCV MCH RDW Lymph % (Auto) Lymph # (Auto) Seg Neutrophils % Seg Neuts % (Manual) Lymphocytes % (Manual) Seg Neutrophils # Man D-Dimer 4046.06 H ABG pH ABG pO2 ABG O2 Saturation Oxyhemoglobin Sodium Chloride 107.7 H Carbon Dioxide BUN 30 H Glucose 281 H POC Glucose Calcium Ferritin 812.2 H AST Lactate Dehydrogenase 570 H C-Reactive Protein Total Protein Albumin Coronavirus (PCR) 01/27/21 01/27/21 01/27/21 04:22 05:55 12:00 WBC RBC 5.15 H MCV 76 L MCH 23 L RDW 15.5 H Lymph % (Auto) 12.7 L Lymph # (Auto) 0.9 L Seg Neutrophils % 81.3 H Seg Neuts % (Manual) Lymphocytes % (Manual) Seg Neutrophils # Man D-Dimer ABG pH ABG pO2 ABG O2 Saturation Oxyhemoglobin Sodium Chloride Carbon Dioxide BUN Glucose POC Glucose 275 H 121 H Calcium Ferritin AST Lactate Dehydrogenase C-Reactive Protein Total Protein Albumin Coronavirus (PCR) 01/27/21 01/27/21 01/28/21 17:32 21:23 02:08 WBC RBC MCV MCH RDW Lymph % (Auto) Lymph # (Auto) Seg Neutrophils % Seg Neuts % (Manual) Lymphocytes % (Manual) Seg Neutrophils # Man D-Dimer ABG pH ABG pO2 ABG O2 Saturation Oxyhemoglobin Sodium Chloride Carbon Dioxide BUN Glucose POC Glucose 195 H 179 H 210 H Calcium Ferritin AST Lactate Dehydrogenase C-Reactive Protein Total Protein Albumin Coronavirus (PCR) 01/28/21 01/28/21 01/28/21 05:09 08:44 08:46 WBC RBC MCV MCH RDW Lymph % (Auto) Lymph # (Auto) Seg Neutrophils % Seg Neuts % (Manual) Lymphocytes % (Manual) Seg Neutrophils # Man D-Dimer 1884.49 H ABG pH ABG pO2 ABG O2 Saturation Oxyhemoglobin Sodium Chloride Carbon Dioxide BUN Glucose POC Glucose 202 H 191 H Calcium Ferritin AST Lactate Dehydrogenase C-Reactive Protein Total Protein Albumin Coronavirus (PCR) 01/28/21 01/28/21 01/28/21 08:46 08:46 12:18 WBC RBC MCV MCH RDW Lymph % (Auto) Lymph # (Auto) Seg Neutrophils % Seg Neuts % (Manual) Lymphocytes % (Manual) Seg Neutrophils # Man D-Dimer ABG pH ABG pO2 ABG O2 Saturation Oxyhemoglobin Sodium Chloride Carbon Dioxide BUN Glucose POC Glucose 221 H Calcium Ferritin 797.7 H AST Lactate Dehydrogenase 556 H C-Reactive Protein Total Protein Albumin Coronavirus (PCR) 01/28/21 01/28/21 01/29/21 18:21 21:45 01:48 WBC RBC MCV MCH RDW Lymph % (Auto) Lymph # (Auto) Seg Neutrophils % Seg Neuts % (Manual) Lymphocytes % (Manual) Seg Neutrophils # Man D-Dimer ABG pH ABG pO2 ABG O2 Saturation Oxyhemoglobin Sodium Chloride Carbon Dioxide BUN Glucose POC Glucose 214 H 148 H 248 H Calcium Ferritin AST Lactate Dehydrogenase C-Reactive Protein Total Protein Albumin Coronavirus (PCR) 01/29/21 01/29/21 01/29/21 05:17 10:17 11:39 WBC RBC MCV MCH RDW Lymph % (Auto) Lymph # (Auto) Seg Neutrophils % Seg Neuts % (Manual) Lymphocytes % (Manual) Seg Neutrophils # Man D-Dimer ABG pH ABG pO2 ABG O2 Saturation Oxyhemoglobin Sodium Chloride Carbon Dioxide BUN Glucose POC Glucose 256 H 193 H 177 H Calcium Ferritin AST Lactate Dehydrogenase C-Reactive Protein Total Protein Albumin Coronavirus (PCR) 01/29/21 01/29/21 01/30/21 18:06 20:24 06:07 WBC RBC MCV MCH RDW Lymph % (Auto) Lymph # (Auto) Seg Neutrophils % Seg Neuts % (Manual) Lymphocytes % (Manual) Seg Neutrophils # Man D-Dimer ABG pH ABG pO2 ABG O2 Saturation Oxyhemoglobin Sodium Chloride Carbon Dioxide BUN Glucose POC Glucose 107 H 114 H 114 H Calcium Ferritin AST Lactate Dehydrogenase C-Reactive Protein Total Protein Albumin Coronavirus (PCR) 01/30/21 01/30/21 01/30/21 12:08 16:11 21:19 WBC RBC MCV MCH RDW Lymph % (Auto) Lymph # (Auto) Seg Neutrophils % Seg Neuts % (Manual) Lymphocytes % (Manual) Seg Neutrophils # Man D-Dimer ABG pH ABG pO2 ABG O2 Saturation Oxyhemoglobin Sodium Chloride Carbon Dioxide BUN Glucose POC Glucose 178 H 142 H 244 H Calcium Ferritin AST Lactate Dehydrogenase C-Reactive Protein Total Protein Albumin Coronavirus (PCR) 01/31/21 01/31/21 05:30 06:42 WBC RBC MCV MCH RDW Lymph % (Auto) Lymph # (Auto) Seg Neutrophils % Seg Neuts % (Manual) Lymphocytes % (Manual) Seg Neutrophils # Man D-Dimer ABG pH ABG pO2 ABG O2 Saturation Oxyhemoglobin Sodium Chloride Carbon Dioxide BUN 20 H Glucose 160 H POC Glucose 164 H Calcium 8.0 L Ferritin AST Lactate Dehydrogenase C-Reactive Protein Total Protein Albumin Coronavirus (PCR)
--- NOTE | 2021-01-31 11:44 | Event Note ---
Date: 01/31/21 I have called the patient's mother and she told me she do not know the medications, but she told me she follow at [facility] in [facility] and I called them and told me patient was on Abilify 15 mg daily, Invega 5 mg daily, Depakote 500 mg daily. I reconciled his medications. Because patient refused to take her medications I put NG tube and will give her medications.
[2021-01-31] MEDS ORDERED: PALIPERIDONE ER 3 MG TAB PO SCH (12:00)
[2021-01-31] MEDS ORDERED: ARIPiprazole 5 MG TAB PO SCH (12:00)
[2021-01-31] MEDS ORDERED: FUROSEMIDE 40 MG/4 ML INJ IV SCH (15:00)
[2021-01-31] MEDS: PALIPERIDONE ER 3 MG TAB PO SCH (15:01)
[2021-01-31] MEDS: ARIPiprazole 15 MG TAB PO SCH (15:01)
[2021-01-31] MEDS: DIVALPROEX ER 500 MG TAB PO SCH (15:11)
--- NOTE | 2021-01-31 16:50 | XRay Report ---
ABDOMEN 1 VIEW 01/31/2021 4:29 PM INDICATION / CLINICAL INFORMATION: NG tube. COMPARISON: None available. FINDINGS: TUBES / LINES: Feeding tube tip is in the mid stomach. BOWEL GAS PATTERN: No significant abnormality. FREE AIR / EXTRALUMINAL GAS: None. ADDITIONAL FINDINGS: No significant additional findings. IMPRESSION: 1. Feeding tube in expected position. Signer Name: Curly Phan MD Signed: 01/31/2021 4:45 PM Workstation Name: [id number]
[2021-01-31] MEDS: MIRTAZAPINE 15 MG TAB PO SCH (22:42)
[2021-02-01] MEDS: IPRATROPIUM/ALBUTEROL SULFATE 3 ML AMPUL.NEB IH SCH ×4 (01:30→20:24)
[2021-02-01] MEDS: INSULIN LISPRO 100 UNIT/ML SUB-Q SCH ×5 (02:00→23:19)
--- NOTE | 2021-02-01 08:06 | Progress Note ---
Assessment and Plan Assessment and plan: This is a 55-year-old female with schizophrenia who presented to [facility] on 01/18 for shortness of breath, cough, subjective fever and not feeling well for the last couple days with known COVID-19 exposure. While in the emergency room patient was switched from non rebreather mask to high flow nasal cannula and his CTA chest showed no acute pulmonary embolism. Patient was admitted to the hospital service as a COVID-19 PUI with consults to CCM, infectious disease, psych. Severe COVID-19 pneumonia Acute hypoxic respiratory failure Obesity Schizophrenia Leukocytosis Hyperglycemia Schizophrenia Hypernatremia Hypercholermia -CCM, infectious disease, psychiatry consulted, appreciate recommendations -COVID-19 PCR positive -Droplet/contact isolation -Remdesivir, azithromycin, ceftriaxone, dexamethasone (twice daily dosing) -s/p Actemra -Wean supplemental oxygen as tolerated, pulmonary hygiene -Prone as tolerated -Trend COVID-19 inflammatory markers for risk stratification, CBC, CMP -SSI, Lantus -01/18 bilateral lower extremity Doppler ultrasound negative for DVT -01/17 CTA shows no evidence of pulmonary embolism, extensive bilateral pneumonia, hepatomegaly with hepatic steatosis 01/18/2021 -Acute hypoxic respiratory failure requiring high flow oxygen 40 L. Nebulizer treatment -Patient is admitted for suspected Covid pneumonia. Patient is on dexamethasone, COVID-19 test is pending. Patient is on empiric antibiotics. -ID consulted, will consult pulmonary. -Patient has hyponatremia yesterday and I will repeat and if it is low I will manage accordingly -Patient has elevated D-dimer and CTA chest and bilateral Doppler ultrasound of the lower extremities pending 01/19/2021 -Acute hypoxic respiratory failure currently on BiPAP, nebulizer treatment. I will put in orders to transfer to [facility] yesterday but there was no bed. -Patient is positive for Covid and she is on Decadron and remdesivir. Actemra was ordered on 01/19/2021 -ID evaluated the patient and recommend to continue Decadron and remdesivir, also to continue ceftriaxone and azithromycin for 5 days because of the elevated procalcitonin level. Pulmonary was consulted and recommend to continue current management and add Lasix -CTA chest was done and significant for bilateral pulmonary opacities, negative for PE, Doppler ultrasound of the lower extremities was negative for DVT. -Prognosis is guarded. -Patient is currently on BiPAP and she was agitated and trying to take off the BiPAP, I put the patient on restraints. Discussed with dye house supervisor to transfer the patient to IMCU and if there is no bed she need to be transferred to CCU. 01/20: Patient received 5 mg of Haldol for severe agitation and refusal to keep high flow nasal cannula in place. [facility] ordered Lasix again. Psych was consulted today. Patient was on BiPAP therapy all night and RT attempted to give her a break patient is on high flow nasal cannula however she did not keep this in place and was paced back on BiPAP after receiving Haldol. She was started on Lantus today. 01/21: Patient is on BiPAP and on time examination was on 20/10 100% FiO2. Patient was started on Lantus. Psych consult completed and started on Haldol p.o. twice daily and Mirtazepin PO daily. No acute events reported overnight. Patient's D-dimer is greater than 10,000 started on prophylactic Lovenox as recent CTA chest and bilateral lower extremity Doppler ultrasound were negative. 01/22: Patient has been taken off BiPAP therapy and placed on high flow nasal cannula. Patient has been downgraded to IMCU. Patient's hyponatremia and hypochloremia have worsened. 01/23: Patient was on BiPAP overnight with FiO2 85% and IPAP 20/EPAP 10. Patient currently with high flow nasal cannula 40 L O2 with an FiO2 of 100%. Continue remdesivir and dexamethasone. Patient is s/p Actemra on 01/20. Continue empiric antibiotics per ID recommendations. Continue anticoagulation per protocol. 01/24: Patient is tachycardic and hypertensive and [facility] has opted to add amlo dipine. Patient remains on 40 L 100% high flow nasal cannula. Continue remdesivir and dexamethasone. Patient is s/p Actemra on 01/20. Continue empiric antibiotics per ID recommendations. Continue anticoagulation per protocol. 01/25: Patient currently with high flow nasal cannula 40 L/min with FiO2 100%. Continue dexamethasone. Patient has completed remdesivir and s/p Actemra on 01/20. Continue full dose anticoagulation given high elevated D-dimer. Continue to trend inflammatory markers. Prognosis remains guarded. 01/26: Patient currently with high flow nasal cannula 35 L/min and FiO2 90%. Continue dexamethasone. Patient has completed remdesivir and s/p Actemra on 01/20. Continue full dose anticoagulation given high elevated D-dimer. Continue to trend inflammatory markers. Prognosis remains guarded. 01/27: Patient currently with high flow nasal cannula/Vapotherm 35 L/min O2 with F iO2 90%. Patient has completed remdesivir and s/p Actemra on 01/20. Continue full dose anticoagulation given high elevated D-dimer. Continue to trend inflammatory markers. Prognosis remains guarded. 01/28; Patient currently with high flow nasal cannula/Vapotherm 35 L/min O2 with FiO2 90%. Patient has completed remdesivir and s/p Actemra on 01/20. Continue full dose anticoagulation given high elevated D-dimer. Continue to trend inflammatory markers. Prognosis remains guarded. 01/29; patient is currently on 35 L of high flow oxygen. Prognosis guarded. Patient can be transferred to regular floor. 01/30/2021; patient is currently on 35 L of high flow oxygen, FiO2 of 65%. Patient has flat affect and did not talk to me. Patient refused most of her p.o. medications. Patient finished remdesivir, steroid. 01/31/2021; patient is on 35 L of high flow oxygen, FiO2 65%. Patient was calm and cooperative and communicative today. pulmonary is following. Patient finished remdesivir and steroid. 02/01/2021; patient was on 40 L of high flow oxygen.. I have called and discussed with her mother yesterday. Her mother told me patient was last followed at [facility] and I called facility and they told me medication she was on and I put these medications. Patient refused to eat so I put the patient on NG tube feeding for medications. Prognosis is guarded. History Interval history: Patient was seen and evaluated this morning Patient was on 40 L of high flow oxygen. Hospitalist Physical - Physical exam Narrative exam: Patient was on BiPAP The patient appeared well nourished and normally developed. Vital signs as documented. Head exam is unremarkable. No scleral icterus . Neck is without jugular venous distension, thyromegaly, or carotid bruits. Lungs decreased air entry on both lungs Cardiac exam reveals regular rate and Rhythm. Abdominal exam reveals normal bowel sounds, nontender, no organomegaly. Extremities are nonedematous and both femoral and pedal pulses are normal. BALLET TEACHER: Patient was on restraints. Patient is pleasant and communicative today. - Constitutional Vitals: Temp Pulse Resp BP Pulse Ox 98.7 F 118 H 20 141/65 95 02/01/21 04:43 02/01/21 04:43 02/01/21 04:43 02/01/21 04:43 02/01/21 04:43 General appearance: Present: no acute distress, well-nourished HEART Score - HEART Score Troponin: Troponin T < 0.010 ng/mL (0.00-0.029) 01/17/21 16:41 Results - Labs CBC & Chem 7: 01/27/21 04:22 01/31/21 06:42 Labs: Laboratory Last Values WBC 6.9 K/mm3 (4.5-11.0) 01/27/21 04:22 RBC 5.15 M/mm3 (3.65-5.03) H 01/27/21 04:22 Hgb 11.9 gm/dl (10.1-14.3) 01/27/21 04:22 Hct 39.1 % (30.3-42.9) 01/27/21 04:22 MCV 76 fl (79-97) L 01/27/21 04:22 MCH 23 pg (28-32) L 01/27/21 04:22 MCHC 30 % (30-34) 01/27/21 04:22 RDW 15.5 % (13.2-15.2) H 01/27/21 04:22 Plt Count 227 K/mm3 (140-440) 01/27/21 04:22 Lymph % (Auto) 12.7 % (13.4-35.0) L 01/27/21 04:22 Bledsoe % (Auto) 5.3 % (0.0-7.3) 01/27/21 04:22 Eos % (Auto) 0.5 % (0.0-4.3) 01/27/21 04:22 Baso % (Auto) 0.2 % (0.0-1.8) 01/27/21 04:22 Lymph # (Auto) 0.9 K/mm3 (1.2-5.4) L 01/27/21 04:22 Bledsoe # (Auto) 0.4 K/mm3 (0.0-0.8) 01/27/21 04:22 Eos # (Auto) 0.0 K/mm3 (0.0-0.4) 01/27/21 04:22 Baso # (Auto) 0.0 K/mm3 (0.0-0.1) 01/27/21 04:22 Add Manual Diff Complete 01/19/21 05:11 Total Counted 100 01/19/21 05:11 Seg Neutrophils % 81.3 % (40.0-70.0) H 01/27/21 04:22 Seg Neuts % (Manual) 88.0 % (40.0-70.0) H 01/19/21 05:11 Lymphocytes % (Manual) 10.0 % (13.4-35.0) L 01/19/21 05:11 Monocytes % (Manual) 2.0 % (0.0-7.3) 01/19/21 05:11 Nucleated RBC % Not Reportable 01/19/21 05:11 Seg Neutrophils # 5.6 K/mm3 (1.8-7.7) 01/27/21 04:22 Seg Neutrophils # Man 12.5 K/mm3 (1.8-7.7) H 01/19/21 05:11 Band Neutrophils # 0.0 K/mm3 01/19/21 05:11 Lymphocytes # (Manual) 1.4 K/mm3 (1.2-5.4) 01/19/21 05:11 Abs React Lymphs (Man) 0.0 K/mm3 01/19/21 05:11 Monocytes # (Manual) 0.3 K/mm3 (0.0-0.8) 01/19/21 05:11 Eosinophils # (Manual) 0.0 K/mm3 (0.0-0.4) 01/19/21 05:11 Basophils # (Manual) 0.0 K/mm3 (0.0-0.1) 01/19/21 05:11 Metamyelocytes # 0.0 K/mm3 01/19/21 05:11 Myelocytes # 0.0 K/mm3 01/19/21 05:11 Promyelocytes # 0.0 K/mm3 01/19/21 05:11 Blast Cells # 0.0 K/mm3 01/19/21 05:11 WBC Morphology Not Reportable 01/19/21 05:11 Hypersegmented Neuts Not Reportable 01/19/21 05:11 Hyposegmented Neuts Not Reportable 01/19/21 05:11 Hypogranular Neuts Not Reportable 01/19/21 05:11 Smudge Cells Not Reportable 01/19/21 05:11 Toxic Granulation Not Reportable 01/19/21 05:11 Toxic Vacuolation Not Reportable 01/19/21 05:11 Dohle Bodies Not Reportable 01/19/21 05:11 Pelger-Huet Anomaly Not Reportable 01/19/21 05:11 Inder Rods Not Reportable 01/19/21 05:11 Platelet Estimate Consistent w auto 01/19/21 05:11 Clumped Platelets Not Reportable 01/19/21 05:11 Plt Clumps, EDTA Not Reportable 01/19/21 05:11 Large Platelets Not Reportable 01/19/21 05:11 Giant Platelets Not Reportable 01/19/21 05:11 Platelet Satelliting Not Reportable 01/19/21 05:11 Plt Morphology Comment Not Reportable 01/19/21 05:11 RBC Morphology Not Reportable 01/19/21 05:11 Dimorphic RBCs Not Reportable 01/19/21 05:11 Polychromasia Not Reportable 01/19/21 05:11 Hypochromasia 1+ 01/19/21 05:11 Poikilocytosis Not Reportable 01/19/21 05:11 Anisocytosis Not Reportable 01/19/21 05:11 Microcytosis Not Reportable 01/19/21 05:11 Macrocytosis Not Reportable 01/19/21 05:11 Spherocytes Not Reportable 01/19/21 05:11 Pappenheimer Bodies Not Reportable 01/19/21 05:11 Sickle Cells Not Reportable 01/19/21 05:11 Target Cells Not Reportable 01/19/21 05:11 Tear Drop Cells Not Reportable 01/19/21 05:11 Ovalocytes Not Reportable 01/19/21 05:11 Helmet Cells Not Reportable 01/19/21 05:11 [place] Bodies Not Reportable 01/19/21 05:11 Gormania Rings Not Reportable 01/19/21 05:11 Giorgio Cells Not Reportable 01/19/21 05:11 Bite Cells Not Reportable 01/19/21 05:11 Crenated Cell Not Reportable 01/19/21 05:11 Elliptocytes Not Reportable 01/19/21 05:11 Acanthocytes (Spur) Not Reportable 01/19/21 05:11 Rouleaux Not Reportable 01/19/21 05:11 Hemoglobin C Crystals Not Reportable 01/19/21 05:11 Schistocytes Not Reportable 01/19/21 05:11 Malaria parasites Not Reportable 01/19/21 05:11 Chai Bodies Not Reportable 01/19/21 05:11 Hem Pathologist Commnt No 01/19/21 05:11 D-Dimer 1884.49 ng/mlDDU (0-234) H 01/28/21 08:46 ABG pH 7.461 pH Units (7.350-7.450) H 01/18/21 17:18 ABG pCO2 36.6 mm Hg 01/18/21 17:18 ABG pO2 53.1 mm Hg (80.0-90.0) L 01/18/21 17:18 ABG HCO3 25.5 mmol/L (20.0-26.0) 01/18/21 17:18 ABG O2 Saturation 89.4 % (95.0-99.0) L 01/18/21 17:18 ABG O2 Content 15.1 (0.0-44) 01/18/21 17:18 ABG Base Excess 1.9 mmol/L (-2.0-3.0) 01/18/21 17:18 ABG Hemoglobin 12.2 gm/dl (12.0-16.0) 01/18/21 17:18 ABG Carboxyhemoglobin 1.2 % (0.0-5.0) 01/18/21 17:18 ABG Methemoglobin 0.5 % (0.0-1.5) 01/18/21 17:18 Oxyhemoglobin 88.0 % (95.0-99.0) L 01/18/21 17:18 FiO2 100 % 01/18/21 17:18 Sodium 143 mmol/L (137-145) 01/31/21 06:42 Potassium 3.9 mmol/L (3.6-5.0) 01/31/21 06:42 Chloride 105.0 mmol/L (98-107) 01/31/21 06:42 Carbon Dioxide 30 mmol/L (22-30) 01/31/21 06:42 Anion Gap 12 mmol/L 01/31/21 06:42 BUN 20 mg/dL (7-17) H 01/31/21 06:42 Creatinine 0.6 mg/dL (0.6-1.2) 01/31/21 06:42 Estimated GFR > 60 ml/min 01/31/21 06:42 BUN/Creatinine Ratio 33 % 01/31/21 06:42 Glucose 160 mg/dL (65-100) H 01/31/21 06:42 POC Glucose 125 mg/dL (70-105) H 01/31/21 21:01 Lactic Acid 1.70 mmol/L (0.7-2.0) 01/17/21 16:41 Calcium 8.0 mg/dL (8.4-10.2) L 01/31/21 06:42 Ferritin 797.7 ng/mL (10.0-200.0) H 01/28/21 08:46 Total Bilirubin 0.30 mg/dL (0.1-1.2) 01/21/21 11:29 AST 34 units/L (5-40) 01/21/21 11:29 ALT 38 units/L (7-56) 01/21/21 11:29 Alkaline Phosphatase 117 units/L (35-129) 01/21/21 11:29 Lactate Dehydrogenase 556 units/L (91-180) H 01/28/21 08:46 Troponin T < 0.010 ng/mL (0.00-0.029) 01/17/21 16:41 C-Reactive Protein 0.20 mg/dL (0.00-1.30) 01/28/21 08:46 NT-Pro-B Natriuret Pep 40.88 pg/mL (0-900) 01/17/21 16:41 Total Protein 7.3 g/dL (6.3-8.2) 01/21/21 11:29 Albumin 3.4 g/dL (3.9-5) L 01/21/21 11:29 Albumin/Globulin Ratio 0.9 % 01/21/21 11:29 Procalcitonin 0.39 ng/mL (<0.15) 01/17/21 17:46 Coronavirus (PCR) Positive (Negative) A 01/17/21 09:25 Estrada/IV: Voiding Method Condom Catheter Active Medications - Current Medications Current Medications: Generic Name Dose Route Start Last Admin Trade Name Freq PRN Reason Stop Dose Admin Acetaminophen 650 mg 01/18/21 00:36 01/22/21 23:46 Acetaminophen 325 Mg Tab PO 650 mg Q4H PRN Administration Pain MILD(1-3)/Fever >100.5/PAN Albuterol/Ipratropium 1 ampul 01/18/21 02:00 02/01/21 01:30 Ipratropium/Albuterol Sulfate 3 Ml Ampul.Neb IH 1 ampul Q6HRT [facility] Administration Amlodipine Besylate 5 mg 01/24/21 15:00 01/31/21 09:59 Amlodipine 5 Mg Tab PO Not Given QDAY [facility] Aripiprazole 15 mg 01/31/21 13:00 01/31/21 15:01 Aripiprazole 15 Mg Tab PO 15 mg QDAY [facility] Administration Divalproex Sodium 500 mg 01/31/21 12:00 01/31/21 15:11 Divalproex Er 500 Mg Tab PO 500 mg QDAY [facility] Administration Enoxaparin Sodium 100 mg 01/21/21 10:00 01/31/21 22:41 Enoxaparin 100 Mg/1 Ml Inj 1 mg/kg (100 mg) 100 mg SUB-Q Administration Q12HR [facility] Protocol Famotidine 20 mg 01/18/21 10:00 01/31/21 22:41 Famotidine 20 Mg Tab PO 20 mg BID PJ Administration Hydralazine HCl 10 mg 01/18/21 00:38 01/24/21 23:12 Hydralazine 20 Mg/1 Ml Inj IV 10 mg Q6H PRN Administration htn Hydromorphone HCl 0.5 mg 01/20/21 11:00 Hydromorphone 1 Mg/1 Ml Inj IV Q6H PRN Pain , Severe (7-10) Insulin Glargine 20 units 01/20/21 22:00 01/31/21 22:41 Insulin Glargine 100 Units/Ml SUB-Q Not Given QHS [facility] Insulin Glargine 20 units 01/24/21 10:00 01/31/21 10:00 Insulin Glargine 100 Units/Ml SUB-Q 20 units DAILY PJ Administration Insulin Human Lispro 0 unit 05/08/21 11:30 Insulin Lispro 100 Unit/Ml SUB-Q ACHS PJ Protocol Mirtazapine 7.5 mg 01/21/21 22:00 01/31/21 22:42 Mirtazapine 15 Mg Tab PO 7.5 mg QHS PJ Administration Ondansetron HCl 4 mg 01/18/21 00:36 Ondansetron 4 Mg/2 Ml Inj IV Q8H PRN Nausea And Vomiting Paliperidone 6 mg 01/31/21 13:00 01/31/21 15:01 Paliperidone Er 3 Mg Tab PO 6 mg QDAY PJ Administration Sodium Chloride 10 ml 01/18/21 10:00 01/31/21 22:42 Sodium Chloride 0.9% 10 Ml Flush Syringe IV 10 ml BID PJ Administration Sodium Chloride 10 ml 01/18/21 00:36 Sodium Chloride 0.9% 10 Ml Flush Syringe IV PRN PRN LINE FLUSH Nutrition/Malnutrition Assess - Dietary Evaluation Nutrition/Malnutrition Findings: Nutrition Notes Start: 01/24/21 10:40 Freq: Status: Active Protocol: Document 01/31/21 13:02 (Rec: 01/31/21 13:06 [id number]) Nutrition Notes Initial or Follow up Reassessment Current Diagnosis Respiratory Failure Other Pertinent Diagnosis pneu, COVID-19(+), AMS Current Diet Cardiac diet with Consistent CHO modifications Labs/Tests Reviewed Pertinent Medications Reviewed Height 5 ft 4 in Weight 91.3 kg [place] Body Weight (kg) 54.54 BMI 34.5 Weight change and time frame Wt fluctuations Weight Status Obese Subjective/Other Information FU for intakes. Pt did not answer phone. Per chart, pt ate 50% of meals yesterday. Percent of energy/protein needs met: 72%/73% (excluding ONS) Burn Absent Trauma Absent Current % PO Fair (50-74%) Minimum of two criteria No Energy Intake (non-severe) <75% Estimated Energy Requirement >7 days #1 Nutrition Diagnosis Inadequate oral intake As Evidenced by Signs and Symptoms pt consuming 50% of meals Diagnosis Progress(for reassessment Worsened documentation) Is patient on ventilator? No Is Patient Ambulatory and/or Out of Bed No REE-([facility]-confined to bed) 1789.884 Kcal/Kg value to use for calculation 15 Approximate Energy Requirements Using 1370 kcal/Kg Calculation Used for Recommendations Kcal/kg Additional Notes PRO needs: 59-74 g(0.8-1 g/kg AdBW 74 kg) Fluid needs: 1mL/kcal Nutrition Intervention Change Diet Order: Continue Cardiac with Consistent CHO modifications Add Supplement/Snack (indicate name/kcal Glucerna BID /protein ) Provides kCal: 440 Provides Protein (gm) 20 Goal #1 Meet at least 75% of energy and protein needs via PO and ONS intakes Anticipated Discharge Needs: Cardiac/Consistent CHO Follow-Up By: 02/04/21 Additional Comments F/U for stable intakes and ONS tolerance
[2021-02-01] MEDS: INSULIN GLARGINE 100 UNITS/ML SUB-Q SCH ×2 (09:15→23:18)
[2021-02-01] MEDS: ENOXAPARIN 100 MG/1 ML INJ SUB-Q SCH ×2 (09:15→23:22)
[2021-02-01] MEDS: DIVALPROEX ER 500 MG TAB PO SCH (09:15)
[2021-02-01] MEDS: FAMOTIDINE 20 MG TAB PO SCH ×2 (09:15→23:19)
[2021-02-01] MEDS: ARIPiprazole 15 MG TAB PO SCH (09:17)
[2021-02-01] MEDS: PALIPERIDONE ER 3 MG TAB PO SCH (09:17)
[2021-02-01] MEDS: amLODIPine 5 MG TAB PO SCH (09:18)
[2021-02-01] MEDS ORDERED: FUROSEMIDE 40 MG/4 ML INJ IV ONE (11:26)
--- NOTE | 2021-02-01 11:26 | Progress Note ---
Assessment and Plan 55 y/o female admitted with acute respiratory failure secondary to pneumonia, positive for Sars CoV2 02/01/21: Will give another 40 of lasix today. Will speak with RT about being more aggressive with weaning of oxygen. Prone if possible. 01/31/21: Increased lasix to 40 today. Prone if possible. 01/30/21: Lasix 20mg IV today. Continue Antipsychotic therapy management. Prone as tolerated if patient willing. 01/29/21: Will give lasix again today. Will change Haldol to IM since patient is refusing PO meds. 01/28/21: Will give lasix again today. Continue all other therapies. Prone if patient will and tolerate. STeroids. Guarded prognosis. 01/20/21: Gave Haldol 5 and patient has calmed down and become more appropriate, allowing us to place bipap back on. COntinue steroids and remdesivir therapy. Doubt patient will be able to prone successfully. Will try lasix today again to see if this helps. Very very guarded prognosis. 01/19/21: Continue decadron, suggest increase given patient body habitus to BID. ID consult for Remdesivir therapy and to see if she is a candidate for Actemra. Prone as tolerated during the day and sleep prone at night. Will give lasix again today. Guarded prognosis. 1. Prone 2. Lasix 3. Agree with steroids 4. Follow up COVID testing Guarded prognosis Subjective Date of service: 02/01/21 Principal diagnosis: Covid-19 Interval history: No acute events. On same oxygen settings. Objective Vital Signs - 12hr 02/01/21 02/01/21 02/01/21 01:37 01:44 04:43 Temperature 98.7 F Pulse Rate 121 H 118 H Pulse Rate [ 110 H Anterior Bilateral Throughout] Respiratory 22 20 Rate Respiratory 22 Rate [Anterior Bilateral Throughout] Blood Pressure 141/65 O2 Sat by Pulse 96 95 Oximetry 02/01/21 02/01/21 07:53 07:54 Temperature Pulse Rate Pulse Rate [ 116 H Anterior Bilateral Throughout] Respiratory Rate Respiratory 18 Rate [Anterior Bilateral Throughout] Blood Pressure O2 Sat by Pulse 94 Oximetry Constitutional: alert, other (critically ill on HFNC 100% FiO2) Eyes: non-icteric ENT: oropharynx moist Neck: supple, other (large in circumference) Effort: mildly labored Ascultation: Bilateral: clear Cardiovascular: other (tachy, RR; no mrg) Gastrointestinal: normoactive bowel sounds, soft, non-tender, non-distended Integumentary: normal Extremities: no cyanosis, no edema, pink and warm Neurologic: normal mental status, non-focal exam, pupils equal and round Psychiatric: mood appropriate, affect normal CBC and BMP: 01/27/21 04:22 01/31/21 06:42 ABG, PT/INR, D-dimer: ABG ABG pH 7.461 pH Units (7.350-7.450) H 01/18/21 17:18 ABG pCO2 36.6 mm Hg 01/18/21 17:18 ABG pO2 53.1 mm Hg (80.0-90.0) L 01/18/21 17:18 ABG O2 Saturation 89.4 % (95.0-99.0) L 01/18/21 17:18 PT/INR, D-dimer D-Dimer 1884.49 ng/mlDDU (0-234) H 01/28/21 08:46 Abnormal lab findings: Abnormal Labs 01/17/21 01/17/21 01/17/21 09:25 16:41 16:41 WBC RBC 5.23 H MCV 76 L MCH 24 L RDW Lymph % (Auto) 9.4 L Lymph # (Auto) 0.8 L Seg Neutrophils % 85.4 H Seg Neuts % (Manual) Lymphocytes % (Manual) Seg Neutrophils # Man D-Dimer ABG pH ABG pO2 ABG O2 Saturation Oxyhemoglobin Sodium 128 L Chloride 90.8 L Carbon Dioxide BUN Glucose 372 H POC Glucose Calcium Ferritin AST 98 H Lactate Dehydrogenase C-Reactive Protein Total Protein Albumin 3.2 L Coronavirus (PCR) Positive A 01/17/21 01/17/21 01/17/21 17:46 17:46 17:46 WBC RBC MCV MCH RDW Lymph % (Auto) Lymph # (Auto) Seg Neutrophils % Seg Neuts % (Manual) Lymphocytes % (Manual) Seg Neutrophils # Man D-Dimer 1058.54 H ABG pH ABG pO2 ABG O2 Saturation Oxyhemoglobin Sodium Chloride Carbon Dioxide BUN Glucose 369 H POC Glucose Calcium Ferritin 668.4 H AST Lactate Dehydrogenase 519 H C-Reactive Protein 19.20 H Total Protein Albumin Coronavirus (PCR) 01/18/21 01/18/21 01/19/21 09:01 17:18 05:11 WBC 14.2 H RBC MCV 74 L MCH 23 L RDW Lymph % (Auto) Lymph # (Auto) Seg Neutrophils % Seg Neuts % (Manual) 88.0 H Lymphocytes % (Manual) 10.0 L Seg Neutrophils # Man 12.5 H D-Dimer ABG pH 7.461 H ABG pO2 53.1 L ABG O2 Saturation 89.4 L Oxyhemoglobin 88.0 L Sodium 132 L Chloride 93.6 L Carbon Dioxide BUN 18 H Glucose 367 H POC Glucose Calcium 7.8 L Ferritin AST Lactate Dehydrogenase C-Reactive Protein Total Protein Albumin Coronavirus (PCR) 01/19/21 01/19/21 01/19/21 05:11 11:06 14:43 WBC RBC MCV MCH RDW Lymph % (Auto) Lymph # (Auto) Seg Neutrophils % Seg Neuts % (Manual) Lymphocytes % (Manual) Seg Neutrophils # Man D-Dimer ABG pH ABG pO2 ABG O2 Saturation Oxyhemoglobin Sodium Chloride Carbon Dioxide BUN 18 H Glucose 304 H 379 H POC Glucose 382 H Calcium 8.3 L Ferritin AST 92 H 96 H Lactate Dehydrogenase C-Reactive Protein Total Protein Albumin 3.0 L 3.0 L Coronavirus (PCR) 01/19/21 01/19/21 01/20/21 16:18 22:18 07:31 WBC RBC MCV MCH RDW Lymph % (Auto) Lymph # (Auto) Seg Neutrophils % Seg Neuts % (Manual) Lymphocytes % (Manual) Seg Neutrophils # Man D-Dimer ABG pH ABG pO2 ABG O2 Saturation Oxyhemoglobin Sodium Chloride Carbon Dioxide BUN Glucose POC Glucose 374 H 341 H 344 H Calcium Ferritin AST Lactate Dehydrogenase C-Reactive Protein Total Protein Albumin Coronavirus (PCR) 01/20/21 01/20/21 01/20/21 07:33 12:14 13:54 WBC RBC MCV MCH RDW Lymph % (Auto) Lymph # (Auto) Seg Neutrophils % Seg Neuts % (Manual) Lymphocytes % (Manual) Seg Neutrophils # Man D-Dimer ABG pH ABG pO2 ABG O2 Saturation Oxyhemoglobin Sodium Chloride Carbon Dioxide BUN 32 H 31 H Glucose 343 H 396 H POC Glucose 365 H Calcium Ferritin AST 57 H 54 H Lactate Dehydrogenase C-Reactive Protein Total Protein 8.3 H Albumin 2.7 L 3.1 L Coronavirus (PCR) 01/20/21 01/20/21 01/21/21 18:28 21:25 04:45 WBC RBC MCV MCH RDW Lymph % (Auto) Lymph # (Auto) Seg Neutrophils % Seg Neuts % (Manual) Lymphocytes % (Manual) Seg Neutrophils # Man D-Dimer ABG pH ABG pO2 ABG O2 Saturation Oxyhemoglobin Sodium Chloride Carbon Dioxide 31 H BUN 41 H Glucose 377 H POC Glucose 403 H 340 H Calcium Ferritin AST Lactate Dehydrogenase C-Reactive Protein Total Protein 8.3 H Albumin 3.0 L Coronavirus (PCR) 01/21/21 01/21/21 01/21/21 04:45 04:45 04:45 WBC RBC MCV MCH RDW Lymph % (Auto) Lymph # (Auto) Seg Neutrophils % Seg Neuts % (Manual) Lymphocytes % (Manual) Seg Neutrophils # Man D-Dimer > 70514 H ABG pH ABG pO2 ABG O2 Saturation Oxyhemoglobin Sodium Chloride Carbon Dioxide BUN Glucose POC Glucose Calcium Ferritin 1688.0 H AST Lactate Dehydrogenase 649 H C-Reactive Protein 17.00 H Total Protein Albumin Coronavirus (PCR) 01/21/21 01/21/21 01/21/21 09:45 11:29 12:09 WBC RBC MCV MCH RDW Lymph % (Auto) Lymph # (Auto) Seg Neutrophils % Seg Neuts % (Manual) Lymphocytes % (Manual) Seg Neutrophils # Man D-Dimer ABG pH ABG pO2 ABG O2 Saturation Oxyhemoglobin Sodium 151 H Chloride Carbon Dioxide BUN 40 H Glucose 412 H POC Glucose 401 H 372 H Calcium Ferritin AST Lactate Dehydrogenase C-Reactive Protein Total Protein Albumin 3.4 L Coronavirus (PCR) 01/21/21 01/21/21 01/22/21 18:26 21:09 02:00 WBC RBC MCV MCH RDW Lymph % (Auto) Lymph # (Auto) Seg Neutrophils % Seg Neuts % (Manual) Lymphocytes % (Manual) Seg Neutrophils # Man D-Dimer ABG pH ABG pO2 ABG O2 Saturation Oxyhemoglobin Sodium Chloride Carbon Dioxide BUN Glucose POC Glucose 376 H 322 H 231 H Calcium Ferritin AST Lactate Dehydrogenase C-Reactive Protein Total Protein Albumin Coronavirus (PCR) 01/22/21 01/22/21 01/22/21 05:24 08:25 08:25 WBC RBC 5.44 H MCV 75 L MCH 23 L RDW 15.5 H Lymph % (Auto) Lymph # (Auto) Seg Neutrophils % Seg Neuts % (Manual) Lymphocytes % (Manual) Seg Neutrophils # Man D-Dimer ABG pH ABG pO2 ABG O2 Saturation Oxyhemoglobin Sodium 155 H Chloride 112.4 H Carbon Dioxide BUN 33 H Glucose 274 H POC Glucose 275 H Calcium Ferritin AST Lactate Dehydrogenase C-Reactive Protein Total Protein Albumin Coronavirus (PCR) 01/22/21 01/22/21 01/22/21 11:53 16:03 21:41 WBC RBC MCV MCH RDW Lymph % (Auto) Lymph # (Auto) Seg Neutrophils % Seg Neuts % (Manual) Lymphocytes % (Manual) Seg Neutrophils # Man D-Dimer ABG pH ABG pO2 ABG O2 Saturation Oxyhemoglobin Sodium Chloride Carbon Dioxide BUN Glucose POC Glucose 265 H 293 H 279 H Calcium Ferritin AST Lactate Dehydrogenase C-Reactive Protein Total Protein Albumin Coronavirus (PCR) 01/23/21 01/23/21 01/23/21 02:03 05:46 05:59 WBC RBC MCV MCH RDW Lymph % (Auto) Lymph # (Auto) Seg Neutrophils % Seg Neuts % (Manual) Lymphocytes % (Manual) Seg Neutrophils # Man D-Dimer ABG pH ABG pO2 ABG O2 Saturation Oxyhemoglobin Sodium Chloride Carbon Dioxide BUN Glucose POC Glucose 268 H 303 H Calcium Ferritin 1116.0 H AST Lactate Dehydrogenase C-Reactive Protein Total Protein Albumin Coronavirus (PCR) 01/23/21 01/23/21 01/23/21 05:59 07:42 09:11 WBC RBC MCV MCH RDW Lymph % (Auto) Lymph # (Auto) Seg Neutrophils % Seg Neuts % (Manual) Lymphocytes % (Manual) Seg Neutrophils # Han D-Dimer ABG pH ABG pO2 ABG O2 Saturation Oxyhemoglobin Sodium Chloride Carbon Dioxide BUN Glucose POC Glucose 291 H 285 H Calcium Ferritin AST Lactate Dehydrogenase 680 H C-Reactive Protein 5.80 H Total Protein Albumin Coronavirus (PCR) 01/23/21 01/23/21 01/23/21 14:06 17:05 17:59 WBC RBC MCV MCH RDW Lymph % (Auto) Lymph # (Auto) Seg Neutrophils % Seg Neuts % (Manual) Lymphocytes % (Manual) Seg Neutrophils # Man D-Dimer ABG pH ABG pO2 ABG O2 Saturation Oxyhemoglobin Sodium Chloride Carbon Dioxide BUN Glucose POC Glucose 228 H 300 H 278 H Calcium Ferritin AST Lactate Dehydrogenase C-Reactive Protein Total Protein Albumin Coronavirus (PCR) 01/23/21 01/24/21 01/24/21 21:43 02:14 05:15 WBC RBC MCV MCH RDW Lymph % (Auto) Lymph # (Auto) Seg Neutrophils % Seg Neuts % (Manual) Lymphocytes % (Manual) Seg Neutrophils # Man D-Dimer ABG pH ABG pO2 ABG O2 Saturation Oxyhemoglobin Sodium Chloride Carbon Dioxide BUN Glucose POC Glucose 223 H 427 H 392 H Calcium Ferritin AST Lactate Dehydrogenase C-Reactive Protein Total Protein Albumin Coronavirus (PCR) 01/24/21 01/24/21 01/24/21 07:03 07:03 09:10 WBC RBC 5.49 H MCV 75 L MCH 23 L RDW Lymph % (Auto) 7.0 L Lymph # (Auto) 0.5 L Seg Neutrophils % 86.1 H Seg Neuts % (Manual) Lymphocytes % (Manual) Seg Neutrophils # Man D-Dimer ABG pH ABG pO2 ABG O2 Saturation Oxyhemoglobin Sodium 149 H Chloride 111.4 H Carbon Dioxide BUN 24 H Glucose 339 H POC Glucose 284 H Calcium Ferritin AST Lactate Dehydrogenase C-Reactive Protein Total Protein Albumin Coronavirus (PCR) 01/24/21 01/24/21 01/24/21 13:47 18:30 21:58 WBC RBC MCV MCH RDW Lymph % (Auto) Lymph # (Auto) Seg Neutrophils % Seg Neuts % (Manual) Lymphocytes % (Manual) Seg Neutrophils # Man D-Dimer ABG pH ABG pO2 ABG O2 Saturation Oxyhemoglobin Sodium Chloride Carbon Dioxide BUN Glucose POC Glucose 317 H 180 H 262 H Calcium Ferritin AST Lactate Dehydrogenase C-Reactive Protein Total Protein Albumin Coronavirus (PCR) 01/25/21 01/25/21 01/25/21 01:22 05:35 08:36 WBC RBC MCV MCH RDW Lymph % (Auto) Lymph # (Auto) Seg Neutrophils % Seg Neuts % (Manual) Lymphocytes % (Manual) Seg Neutrophils # Man D-Dimer ABG pH ABG pO2 ABG O2 Saturation Oxyhemoglobin Sodium Chloride Carbon Dioxide BUN Glucose POC Glucose 280 H 243 H 216 H Calcium Ferritin AST Lactate Dehydrogenase C-Reactive Protein Total Protein Albumin Coronavirus (PCR) 01/25/21 01/25/21 01/25/21 15:14 15:14 15:14 WBC RBC MCV MCH RDW Lymph % (Auto) Lymph # (Auto) Seg Neutrophils % Seg Neuts % (Manual) Lymphocytes % (Manual) Seg Neutrophils # Man D-Dimer 6312.54 H ABG pH ABG pO2 ABG O2 Saturation Oxyhemoglobin Sodium 146 H Chloride 108.1 H Carbon Dioxide BUN 19 H Glucose 287 H POC Glucose Calcium 8.3 L Ferritin 869.5 H AST Lactate Dehydrogenase 685 H C-Reactive Protein Total Protein Albumin Coronavirus (PCR) 01/25/21 01/25/21 01/26/21 16:06 21:18 01:47 WBC RBC MCV MCH RDW Lymph % (Auto) Lymph # (Auto) Seg Neutrophils % Seg Neuts % (Manual) Lymphocytes % (Manual) Seg Neutrophils # Man D-Dimer ABG pH ABG pO2 ABG O2 Saturation Oxyhemoglobin Sodium Chloride Carbon Dioxide BUN Glucose POC Glucose 267 H 197 H 255 H Calcium Ferritin AST Lactate Dehydrogenase C-Reactive Protein Total Protein Albumin Coronavirus (PCR) 01/26/21 01/26/21 01/26/21 05:23 05:23 05:23 WBC RBC MCV MCH RDW Lymph % (Auto) Lymph # (Auto) Seg Neutrophils % Seg Neuts % (Manual) Lymphocytes % (Manual) Seg Neutrophils # Man D-Dimer 5809.58 H ABG pH ABG pO2 ABG O2 Saturation Oxyhemoglobin Sodium 149 H Chloride 109.3 H Carbon Dioxide BUN 24 H Glucose 362 H POC Glucose Calcium Ferritin 877.1 H AST Lactate Dehydrogenase 655 H C-Reactive Protein Total Protein Albumin Coronavirus (PCR) 01/26/21 01/26/21 01/26/21 05:23 06:06 09:28 WBC RBC 5.49 H MCV 77 L MCH 23 L RDW Lymph % (Auto) Lymph # (Auto) 0.8 L Seg Neutrophils % 78.9 H Seg Neuts % (Manual) Lymphocytes % (Manual) Seg Neutrophils # Man D-Dimer ABG pH ABG pO2 ABG O2 Saturation Oxyhemoglobin Sodium Chloride Carbon Dioxide BUN Glucose POC Glucose 387 H 308 H Calcium Ferritin AST Lactate Dehydrogenase C-Reactive Protein Total Protein Albumin Coronavirus (PCR) 01/26/21 01/26/21 01/27/21 15:56 21:28 02:51 WBC RBC MCV MCH RDW Lymph % (Auto) Lymph # (Auto) Seg Neutrophils % Seg Neuts % (Manual) Lymphocytes % (Manual) Seg Neutrophils # Man D-Dimer ABG pH ABG pO2 ABG O2 Saturation Oxyhemoglobin Sodium Chloride Carbon Dioxide BUN Glucose POC Glucose 172 H 316 H 267 H Calcium Ferritin AST Lactate Dehydrogenase C-Reactive Protein Total Protein Albumin Coronavirus (PCR) 01/27/21 01/27/21 01/27/21 04:22 04:22 04:22 WBC RBC MCV MCH RDW Lymph % (Auto) Lymph # (Auto) Seg Neutrophils % Seg Neuts % (Manual) Lymphocytes % (Manual) Seg Neutrophils # Man D-Dimer 4046.06 H ABG pH ABG pO2 ABG O2 Saturation Oxyhemoglobin Sodium Chloride 107.7 H Carbon Dioxide BUN 30 H Glucose 281 H POC Glucose Calcium Ferritin 812.2 H AST Lactate Dehydrogenase 570 H C-Reactive Protein Total Protein Albumin Coronavirus (PCR) 01/27/21 01/27/21 01/27/21 04:22 05:55 12:00 WBC RBC 5.15 H MCV 76 L MCH 23 L RDW 15.5 H Lymph % (Auto) 12.7 L Lymph # (Auto) 0.9 L Seg Neutrophils % 81.3 H Seg Neuts % (Manual) Lymphocytes % (Manual) Seg Neutrophils # Man D-Dimer ABG pH ABG pO2 ABG O2 Saturation Oxyhemoglobin Sodium Chloride Carbon Dioxide BUN Glucose POC Glucose 275 H 121 H Calcium Ferritin AST Lactate Dehydrogenase C-Reactive Protein Total Protein Albumin Coronavirus (PCR) 01/27/21 01/27/21 01/28/21 17:32 21:23 02:08 WBC RBC MCV MCH RDW Lymph % (Auto) Lymph # (Auto) Seg Neutrophils % Seg Neuts % (Manual) Lymphocytes % (Manual) Seg Neutrophils # Man D-Dimer ABG pH ABG pO2 ABG O2 Saturation Oxyhemoglobin Sodium Chloride Carbon Dioxide BUN Glucose POC Glucose 195 H 179 H 210 H Calcium Ferritin AST Lactate Dehydrogenase C-Reactive Protein Total Protein Albumin Coronavirus (PCR) 01/28/21 01/28/21 01/28/21 05:09 08:44 08:46 WBC RBC MCV MCH RDW Lymph % (Auto) Lymph # (Auto) Seg Neutrophils % Seg Neuts % (Manual) Lymphocytes % (Manual) Seg Neutrophils # Man D-Dimer 1884.49 H ABG pH ABG pO2 ABG O2 Saturation Oxyhemoglobin Sodium Chloride Carbon Dioxide BUN Glucose POC Glucose 202 H 191 H Calcium Ferritin AST Lactate Dehydrogenase C-Reactive Protein Total Protein Albumin Coronavirus (PCR) 01/28/21 01/28/21 01/28/21 08:46 08:46 12:18 WBC RBC MCV MCH RDW Lymph % (Auto) Lymph # (Auto) Seg Neutrophils % Seg Neuts % (Manual) Lymphocytes % (Manual) Seg Neutrophils # Man D-Dimer ABG pH ABG pO2 ABG O2 Saturation Oxyhemoglobin Sodium Chloride Carbon Dioxide BUN Glucose POC Glucose 221 H Calcium Ferritin 797.7 H AST Lactate Dehydrogenase 556 H C-Reactive Protein Total Protein Albumin Coronavirus (PCR) 01/28/21 01/28/21 01/29/21 18:21 21:45 01:48 WBC RBC MCV MCH RDW Lymph % (Auto) Lymph # (Auto) Seg Neutrophils % Seg Neuts % (Manual) Lymphocytes % (Manual) Seg Neutrophils # Man D-Dimer ABG pH ABG pO2 ABG O2 Saturation Oxyhemoglobin Sodium Chloride Carbon Dioxide BUN Glucose POC Glucose 214 H 148 H 248 H Calcium Ferritin AST Lactate Dehydrogenase C-Reactive Protein Total Protein Albumin Coronavirus (PCR) 01/29/21 01/29/21 01/29/21 05:17 10:17 11:39 WBC RBC MCV MCH RDW Lymph % (Auto) Lymph # (Auto) Seg Neutrophils % Seg Neuts % (Manual) Lymphocytes % (Manual) Seg Neutrophils # Man D-Dimer ABG pH ABG pO2 ABG O2 Saturation Oxyhemoglobin Sodium Chloride Carbon Dioxide BUN Glucose POC Glucose 256 H 193 H 177 H Calcium Ferritin AST Lactate Dehydrogenase C-Reactive Protein Total Protein Albumin Coronavirus (PCR) 01/29/21 01/29/21 01/30/21 18:06 20:24 06:07 WBC RBC MCV MCH RDW Lymph % (Auto) Lymph # (Auto) Seg Neutrophils % Seg Neuts % (Manual) Lymphocytes % (Manual) Seg Neutrophils # Man D-Dimer ABG pH ABG pO2 ABG O2 Saturation Oxyhemoglobin Sodium Chloride Carbon Dioxide BUN Glucose POC Glucose 107 H 114 H 114 H Calcium Ferritin AST Lactate Dehydrogenase C-Reactive Protein Total Protein Albumin Coronavirus (PCR) 01/30/21 01/30/21 01/30/21 12:08 16:11 21:19 WBC RBC MCV MCH RDW Lymph % (Auto) Lymph # (Auto) Seg Neutrophils % Seg Neuts % (Manual) Lymphocytes % (Manual) Seg Neutrophils # Man D-Dimer ABG pH ABG pO2 ABG O2 Saturation Oxyhemoglobin Sodium Chloride Carbon Dioxide BUN Glucose POC Glucose 178 H 142 H 244 H Calcium Ferritin AST Lactate Dehydrogenase C-Reactive Protein Total Protein Albumin Coronavirus (PCR) 01/31/21 01/31/21 01/31/21 05:30 06:42 07:50 WBC RBC MCV MCH RDW Lymph % (Auto) Lymph # (Auto) Seg Neutrophils % Seg Neuts % (Manual) Lymphocytes % (Manual) Seg Neutrophils # Man D-Dimer ABG pH ABG pO2 ABG O2 Saturation Oxyhemoglobin Sodium Chloride Carbon Dioxide BUN 20 H Glucose 160 H POC Glucose 164 H 152 H Calcium 8.0 L Ferritin AST Lactate Dehydrogenase C-Reactive Protein Total Protein Albumin Coronavirus (PCR) 01/31/21 01/31/21 01/31/21 11:40 16:37 21:01 WBC RBC MCV MCH RDW Lymph % (Auto) Lymph # (Auto) Seg Neutrophils % Seg Neuts % (Manual) Lymphocytes % (Manual) Seg Neutrophils # Man D-Dimer ABG pH ABG pO2 ABG O2 Saturation Oxyhemoglobin Sodium Chloride Carbon Dioxide BUN Glucose POC Glucose 129 H 141 H 125 H Calcium Ferritin AST Lactate Dehydrogenase C-Reactive Protein Total Protein Albumin Coronavirus (PCR) 02/01/21 06:26 WBC RBC MCV MCH RDW Lymph % (Auto) Lymph # (Auto) Seg Neutrophils % Seg Neuts % (Manual) Lymphocytes % (Manual) Seg Neutrophils # Man D-Dimer ABG pH ABG pO2 ABG O2 Saturation Oxyhemoglobin Sodium Chloride Carbon Dioxide BUN Glucose POC Glucose 136 H Calcium Ferritin AST Lactate Dehydrogenase C-Reactive Protein Total Protein Albumin Coronavirus (PCR)
[2021-02-01] MEDS: METOPROLOL TARTRATE 25 MG TAB PO SCH ×2 (13:07→23:19)
[2021-02-01] MEDS: MIRTAZAPINE 15 MG TAB PO SCH (23:00)
[2021-02-02 08:57] LABS: Basophils % (Auto) 0.3 % (0.0-1.8); Eosinophils # (Auto) 0.1 K/mm3 (0.0-0.4); Eosinophils % (Auto) 3.6 % (0.0-4.3); Lymphocytes # (Auto) 1.4 K/mm3 (1.2-5.4); Lymphocytes % (Auto) 44.9 % (13.4-35.0); Mean Corpuscular HGB Conc 30 % (30-34); Mean Corpuscular Volume 75 fl (79-97); Monocytes # (Auto) 0.3 K/mm3 (0.0-0.8); Monocytes % (Auto) 9.2 % (0.0-7.3); Platelet Count 155 K/mm3 (140-440)
[2021-02-02 09:03] LABS: Hematocrit 35.4 % (30.3-42.9); Hemoglobin 10.7 gm/dl (10.1-14.3)
[2021-02-02] MEDS: IPRATROPIUM/ALBUTEROL SULFATE 3 ML AMPUL.NEB IH SCH ×3 (09:13→19:43)
[2021-02-02] MEDS ORDERED: FUROSEMIDE 40 MG/4 ML INJ IV ONE (09:17)
[2021-02-02 09:26] LABS: Blood Urea Nitrogen 17 mg/dL (7-17); Calcium 8.2 mg/dL (8.4-10.2); Hemolysis Index 5
[2021-02-02 09:27] LABS: BUN/Creatinine Ratio 43
[2021-02-02] MEDS: METOPROLOL TARTRATE 25 MG TAB PO SCH ×2 (09:33→22:53)
[2021-02-02] MEDS: ENOXAPARIN 100 MG/1 ML INJ SUB-Q SCH ×2 (09:33→22:45)
[2021-02-02] MEDS: ARIPiprazole 15 MG TAB PO SCH (09:34)
[2021-02-02] MEDS: DIVALPROEX ER 500 MG TAB PO SCH (09:34)
[2021-02-02] MEDS: PALIPERIDONE ER 3 MG TAB PO SCH (09:34)
[2021-02-02] MEDS: INSULIN LISPRO 100 UNIT/ML SUB-Q SCH ×4 (09:34→22:44)
[2021-02-02] MEDS: FAMOTIDINE 20 MG TAB PO SCH ×2 (09:35→22:46)
--- NOTE | 2021-02-02 10:30 | Progress Note ---
Assessment and Plan Assessment and plan: This is a 55-year-old female with schizophrenia who presented to [facility] on 01/18 for shortness of breath, cough, subjective fever and not feeling well for the last couple days with known COVID-19 exposure. While in the emergency room patient was switched from non rebreather mask to high flow nasal cannula and his CTA chest showed no acute pulmonary embolism. Patient was admitted to the hospital service as a COVID-19 PUI with consults to CCM, infectious disease, psych. Severe COVID-19 pneumonia Acute hypoxic respiratory failure Obesity Schizophrenia Leukocytosis Hyperglycemia Schizophrenia Hypernatremia Hypercholermia -CCM, infectious disease, psychiatry consulted, appreciate recommendations -COVID-19 PCR positive -Droplet/contact isolation -Remdesivir, azithromycin, ceftriaxone, dexamethasone (twice daily dosing) -s/p Actemra -Wean supplemental oxygen as tolerated, pulmonary hygiene -Prone as tolerated -Trend COVID-19 inflammatory markers for risk stratification, CBC, CMP -SSI, Lantus -01/18 bilateral lower extremity Doppler ultrasound negative for DVT -01/17 CTA shows no evidence of pulmonary embolism, extensive bilateral pneumonia, hepatomegaly with hepatic steatosis 01/18/2021 -Acute hypoxic respiratory failure requiring high flow oxygen 40 L. Nebulizer treatment -Patient is admitted for suspected Covid pneumonia. Patient is on dexamethasone, COVID-19 test is pending. Patient is on empiric antibiotics. -ID consulted, will consult pulmonary. -Patient has hyponatremia yesterday and I will repeat and if it is low I will manage accordingly -Patient has elevated D-dimer and CTA chest and bilateral Doppler ultrasound of the lower extremities pending 01/19/2021 -Acute hypoxic respiratory failure currently on BiPAP, nebulizer treatment. I will put in orders to transfer to [facility] yesterday but there was no bed. -Patient is positive for Covid and she is on Decadron and remdesivir. Actemra was ordered on 01/19/2021 -ID evaluated the patient and recommend to continue Decadron and remdesivir, also to continue ceftriaxone and azithromycin for 5 days because of the elevated procalcitonin level. Pulmonary was consulted and recommend to continue current management and add Lasix -CTA chest was done and significant for bilateral pulmonary opacities, negative for PE, Doppler ultrasound of the lower extremities was negative for DVT. -Prognosis is guarded. -Patient is currently on BiPAP and she was agitated and trying to take off the BiPAP, I put the patient on restraints. Discussed with warehouse receiver to transfer the patient to IMCU and if there is no bed she need to be transferred to CCU. 01/20: Patient received 5 mg of Haldol for severe agitation and refusal to keep high flow nasal cannula in place. [facility] ordered Lasix again. Psych was consulted today. Patient was on BiPAP therapy all night and RT attempted to give her a break patient is on high flow nasal cannula however she did not keep this in place and was paced back on BiPAP after receiving Haldol. She was started on Lantus today. 01/21: Patient is on BiPAP and on time examination was on 20/10 100% FiO2. Patient was started on Lantus. Psych consult completed and started on Haldol p.o. twice daily and Mirtazepin PO daily. No acute events reported overnight. Patient's D-dimer is greater than 10,000 started on prophylactic Lovenox as recent CTA chest and bilateral lower extremity Doppler ultrasound were negative. 01/22: Patient has been taken off BiPAP therapy and placed on high flow nasal cannula. Patient has been downgraded to IMCU. Patient's hyponatremia and hypochloremia have worsened. 01/23: Patient was on BiPAP overnight with FiO2 85% and IPAP 20/EPAP 10. Patient currently with high flow nasal cannula 40 L O2 with an FiO2 of 100%. Continue remdesivir and dexamethasone. Patient is s/p Actemra on 01/20. Continue empiric antibiotics per ID recommendations. Continue anticoagulation per protocol. 01/24: Patient is tachycardic and hypertensive and [facility] has opted to add amlo dipine. Patient remains on 40 L 100% high flow nasal cannula. Continue remdesivir and dexamethasone. Patient is s/p Actemra on 01/20. Continue empiric antibiotics per ID recommendations. Continue anticoagulation per protocol. 01/25: Patient currently with high flow nasal cannula 40 L/min with FiO2 100%. Continue dexamethasone. Patient has completed remdesivir and s/p Actemra on 01/20. Continue full dose anticoagulation given high elevated D-dimer. Continue to trend inflammatory markers. Prognosis remains guarded. 01/26: Patient currently with high flow nasal cannula 35 L/min and FiO2 90%. Continue dexamethasone. Patient has completed remdesivir and s/p Actemra on 01/20. Continue full dose anticoagulation given high elevated D-dimer. Continue to trend inflammatory markers. Prognosis remains guarded. 01/27: Patient currently with high flow nasal cannula/Vapotherm 35 L/min O2 with F iO2 90%. Patient has completed remdesivir and s/p Actemra on 01/20. Continue full dose anticoagulation given high elevated D-dimer. Continue to trend inflammatory markers. Prognosis remains guarded. 01/28; Patient currently with high flow nasal cannula/Vapotherm 35 L/min O2 with FiO2 90%. Patient has completed remdesivir and s/p Actemra on 01/20. Continue full dose anticoagulation given high elevated D-dimer. Continue to trend inflammatory markers. Prognosis remains guarded. 01/29; patient is currently on 35 L of high flow oxygen. Prognosis guarded. Patient can be transferred to regular floor. 01/30/2021; patient is currently on 35 L of high flow oxygen, FiO2 of 65%. Patient has flat affect and did not talk to me. Patient refused most of her p.o. medications. Patient finished remdesivir, steroid. 01/31/2021; patient is on 35 L of high flow oxygen, FiO2 65%. Patient was calm and cooperative and communicative today. pulmonary is following. Patient finished remdesivir and steroid. 02/01/2021; patient was on 40 L of high flow oxygen.. I have called and discussed with her mother yesterday. Her mother told me patient was last followed at [facility] and I called facility and they told me medication she was on and I put these medications. Patient refused to eat so I put the patient on NG tube feeding for medications. Prognosis is guarded. 02/02/2021; patient is on 4 L of high flow oxygen with FiO2 of 60%. Her outpatient psych medications were reconciled. Patient was taking medications and as needed NG tube. Pulmonary is following the patient. History Interval history: Patient was seen and evaluated this morning Patient was on 40 L of high flow oxygen, FiO2 of 60%. Hospitalist Physical - Physical exam Narrative exam: Patient was on BiPAP The patient appeared well nourished and normally developed. Vital signs as documented. Head exam is unremarkable. No scleral icterus . Neck is without jugular venous distension, thyromegaly, or carotid bruits. Lungs decreased air entry on both lungs Cardiac exam reveals regular rate and Rhythm. Abdominal exam reveals normal bowel sounds, nontender, no organomegaly. Extremities are nonedematous and both femoral and pedal pulses are normal. SUPERVISOR TYPE BAR AND SEGMENT: Patient was on restraints. Patient is pleasant and communicative today, but still confused. - Constitutional Vitals: Temp Pulse Resp BP Pulse Ox 98.7 F 115 H 20 140/68 89 02/02/21 05:55 02/02/21 05:55 02/02/21 05:55 02/02/21 05:55 02/02/21 05:55 General appearance: Present: no acute distress, well-nourished HEART Score - HEART Score Troponin: Troponin T < 0.010 ng/mL (0.00-0.029) 01/17/21 16:41 Results - Labs CBC & Chem 7: 02/02/21 07:56 02/02/21 07:56 Labs: Laboratory Last Values WBC 3.1 K/mm3 (4.5-11.0) L 02/02/21 07:56 RBC 4.70 M/mm3 (3.65-5.03) 02/02/21 07:56 Hgb 10.7 gm/dl (10.1-14.3) 02/02/21 07:56 Hct 35.4 % (30.3-42.9) 02/02/21 07:56 MCV 75 fl (79-97) L 02/02/21 07:56 MCH 23 pg (28-32) L 02/02/21 07:56 MCHC 30 % (30-34) 02/02/21 07:56 RDW 15.0 % (13.2-15.2) 02/02/21 07:56 Plt Count 155 K/mm3 (140-440) 02/02/21 07:56 Lymph % (Auto) 44.9 % (13.4-35.0) H 02/02/21 07:56 Noble % (Auto) 9.2 % (0.0-7.3) H 02/02/21 07:56 Eos % (Auto) 3.6 % (0.0-4.3) 02/02/21 07:56 Baso % (Auto) 0.3 % (0.0-1.8) 02/02/21 07:56 Lymph # (Auto) 1.4 K/mm3 (1.2-5.4) 02/02/21 07:56 Noble # (Auto) 0.3 K/mm3 (0.0-0.8) 02/02/21 07:56 Eos # (Auto) 0.1 K/mm3 (0.0-0.4) 02/02/21 07:56 Baso # (Auto) 0.0 K/mm3 (0.0-0.1) 02/02/21 07:56 Add Manual Diff Complete 01/19/21 05:11 Total Counted 100 01/19/21 05:11 Seg Neutrophils % 42.0 % (40.0-70.0) 02/02/21 07:56 Seg Neuts % (Manual) 88.0 % (40.0-70.0) H 01/19/21 05:11 Lymphocytes % (Manual) 10.0 % (13.4-35.0) L 01/19/21 05:11 Monocytes % (Manual) 2.0 % (0.0-7.3) 01/19/21 05:11 Nucleated RBC % Not Reportable 01/19/21 05:11 Seg Neutrophils # 1.3 K/mm3 (1.8-7.7) L 02/02/21 07:56 Seg Neutrophils # Man 12.5 K/mm3 (1.8-7.7) H 01/19/21 05:11 Band Neutrophils # 0.0 K/mm3 01/19/21 05:11 Lymphocytes # (Manual) 1.4 K/mm3 (1.2-5.4) 01/19/21 05:11 Abs React Lymphs (Man) 0.0 K/mm3 01/19/21 05:11 Monocytes # (Manual) 0.3 K/mm3 (0.0-0.8) 01/19/21 05:11 Eosinophils # (Manual) 0.0 K/mm3 (0.0-0.4) 01/19/21 05:11 Basophils # (Manual) 0.0 K/mm3 (0.0-0.1) 01/19/21 05:11 Metamyelocytes # 0.0 K/mm3 01/19/21 05:11 Myelocytes # 0.0 K/mm3 01/19/21 05:11 Promyelocytes # 0.0 K/mm3 01/19/21 05:11 Blast Cells # 0.0 K/mm3 01/19/21 05:11 WBC Morphology Not Reportable 01/19/21 05:11 Hypersegmented Neuts Not Reportable 01/19/21 05:11 Hyposegmented Neuts Not Reportable 01/19/21 05:11 Hypogranular Neuts Not Reportable 01/19/21 05:11 Smudge Cells Not Reportable 01/19/21 05:11 Toxic Granulation Not Reportable 01/19/21 05:11 Toxic Vacuolation Not Reportable 01/19/21 05:11 Dohle Bodies Not Reportable 01/19/21 05:11 Pelger-Huet Anomaly Not Reportable 01/19/21 05:11 Inder Rods Not Reportable 01/19/21 05:11 Platelet Estimate Consistent w auto 01/19/21 05:11 Clumped Platelets Not Reportable 01/19/21 05:11 Plt Clumps, EDTA Not Reportable 01/19/21 05:11 Large Platelets Not Reportable 01/19/21 05:11 Giant Platelets Not Reportable 01/19/21 05:11 Platelet Satelliting Not Reportable 01/19/21 05:11 Plt Morphology Comment Not Reportable 01/19/21 05:11 RBC Morphology Not Reportable 01/19/21 05:11 Dimorphic RBCs Not Reportable 01/19/21 05:11 Polychromasia Not Reportable 01/19/21 05:11 Hypochromasia 1+ 01/19/21 05:11 Poikilocytosis Not Reportable 01/19/21 05:11 Anisocytosis Not Reportable 01/19/21 05:11 Microcytosis Not Reportable 01/19/21 05:11 Macrocytosis Not Reportable 01/19/21 05:11 Spherocytes Not Reportable 01/19/21 05:11 Pappenheimer Bodies Not Reportable 01/19/21 05:11 Sickle Cells Not Reportable 01/19/21 05:11 Target Cells Not Reportable 01/19/21 05:11 Tear Drop Cells Not Reportable 01/19/21 05:11 Ovalocytes Not Reportable 01/19/21 05:11 Helmet Cells Not Reportable 01/19/21 05:11 Navarro-Doland Bodies Not Reportable 01/19/21 05:11 [place] Rings Not Reportable 01/19/21 05:11 Treichlers Cells Not Reportable 01/19/21 05:11 Bite Cells Not Reportable 01/19/21 05:11 Crenated Cell Not Reportable 01/19/21 05:11 Elliptocytes Not Reportable 01/19/21 05:11 Acanthocytes (Spur) Not Reportable 01/19/21 05:11 Rouleaux Not Reportable 01/19/21 05:11 Hemoglobin C Crystals Not Reportable 01/19/21 05:11 Schistocytes Not Reportable 01/19/21 05:11 Malaria parasites Not Reportable 01/19/21 05:11 Chai Bodies Not Reportable 01/19/21 05:11 Hem Pathologist Commnt No 01/19/21 05:11 D-Dimer 1884.49 ng/mlDDU (0-234) H 01/28/21 08:46 ABG pH 7.461 pH Units (7.350-7.450) H 01/18/21 17:18 ABG pCO2 36.6 mm Hg 01/18/21 17:18 ABG pO2 53.1 mm Hg (80.0-90.0) L 01/18/21 17:18 ABG HCO3 25.5 mmol/L (20.0-26.0) 01/18/21 17:18 ABG O2 Saturation 89.4 % (95.0-99.0) L 01/18/21 17:18 ABG O2 Content 15.1 (0.0-44) 01/18/21 17:18 ABG Base Excess 1.9 mmol/L (-2.0-3.0) 01/18/21 17:18 ABG Hemoglobin 12.2 gm/dl (12.0-16.0) 01/18/21 17:18 ABG Carboxyhemoglobin 1.2 % (0.0-5.0) 01/18/21 17:18 ABG Methemoglobin 0.5 % (0.0-1.5) 01/18/21 17:18 Oxyhemoglobin 88.0 % (95.0-99.0) L 01/18/21 17:18 FiO2 100 % 01/18/21 17:18 Sodium 141 mmol/L (137-145) 02/02/21 07:56 Potassium 3.7 mmol/L (3.6-5.0) 02/02/21 07:56 Chloride 102.9 mmol/L (98-107) 02/02/21 07:56 Carbon Dioxide 31 mmol/L (22-30) H 02/02/21 07:56 Anion Gap 11 mmol/L 02/02/21 07:56 BUN 17 mg/dL (7-17) 02/02/21 07:56 Creatinine 0.4 mg/dL (0.6-1.2) L 02/02/21 07:56 Estimated GFR > 60 ml/min 02/02/21 07:56 BUN/Creatinine Ratio 43 % 02/02/21 07:56 Glucose 159 mg/dL (65-100) H 02/02/21 07:56 POC Glucose 164 mg/dL (70-105) H 02/02/21 07:15 Lactic Acid 1.70 mmol/L (0.7-2.0) 01/17/21 16:41 Calcium 8.2 mg/dL (8.4-10.2) L 02/02/21 07:56 Ferritin 797.7 ng/mL (10.0-200.0) H 01/28/21 08:46 Total Bilirubin 0.30 mg/dL (0.1-1.2) 01/21/21 11:29 AST 34 units/L (5-40) 01/21/21 11:29 ALT 38 units/L (7-56) 01/21/21 11:29 Alkaline Phosphatase 117 units/L (35-129) 01/21/21 11:29 Lactate Dehydrogenase 556 units/L (91-180) H 01/28/21 08:46 Troponin T < 0.010 ng/mL (0.00-0.029) 01/17/21 16:41 C-Reactive Protein 0.20 mg/dL (0.00-1.30) 01/28/21 08:46 NT-Pro-B Natriuret Pep 40.88 pg/mL (0-900) 01/17/21 16:41 Total Protein 7.3 g/dL (6.3-8.2) 01/21/21 11:29 Albumin 3.4 g/dL (3.9-5) L 01/21/21 11:29 Albumin/Globulin Ratio 0.9 % 01/21/21 11:29 Procalcitonin 0.39 ng/mL (<0.15) 01/17/21 17:46 Coronavirus (PCR) Positive (Negative) A 01/17/21 09:25 Estrada/IV: Voiding Method External Female Catheter Active Medications - Current Medications Current Medications: Generic Name Dose Route Start Last Admin Trade Name Freq PRN Reason Stop Dose Admin Acetaminophen 650 mg 01/18/21 00:36 01/22/21 23:46 Acetaminophen 325 Mg Tab PO 650 mg Q4H PRN Administration Pain MILD(1-3)/Fever >100.5/PAN Albuterol/Ipratropium 1 ampul 02/01/21 14:00 02/02/21 09:13 Ipratropium/Albuterol Sulfate 3 Ml Ampul.Neb IH 1 ampul TIDRT PJ Administration Aripiprazole 15 mg 01/31/21 13:00 02/02/21 09:34 Aripiprazole 15 Mg Tab PO 15 mg QDAY PJ Administration Divalproex Sodium 500 mg 01/31/21 12:00 02/02/21 09:34 Divalproex Er 500 Mg Tab PO 500 mg QDAY PJ Administration Enoxaparin Sodium 100 mg 01/21/21 10:00 02/02/21 09:33 Enoxaparin 100 Mg/1 Ml Inj 1 mg/kg (100 mg) 100 mg SUB-Q Administration Q12HR [facility] Protocol Famotidine 20 mg 01/18/21 10:00 02/02/21 09:35 Famotidine 20 Mg Tab PO 20 mg BID PJ Administration Hydralazine HCl 10 mg 01/18/21 00:38 01/24/21 23:12 Hydralazine 20 Mg/1 Ml Inj IV 10 mg Q6H PRN Administration htn Hydromorphone HCl 0.5 mg 01/20/21 11:00 Hydromorphone 1 Mg/1 Ml Inj IV Q6H PRN Pain , Severe (7-10) Insulin Glargine 20 units 01/20/21 22:00 02/01/21 23:18 Insulin Glargine 100 Units/Ml SUB-Q 20 units QHS PJ Administration Insulin Human Lispro 0 unit 02/01/21 11:30 02/02/21 09:34 Insulin Lispro 100 Unit/Ml SUB-Q 3 unit ACHS PJ Administration Protocol Metoprolol Tartrate 12.5 mg 02/01/21 12:00 02/02/21 09:33 Metoprolol Tartrate 25 Mg Tab PO 12.5 mg BID PJ Administration Mirtazapine 7.5 mg 01/21/21 22:00 02/01/21 23:00 Mirtazapine 15 Mg Tab PO 7.5 mg QHS PJ Administration Ondansetron HCl 4 mg 01/18/21 00:36 Ondansetron 4 Mg/2 Ml Inj IV Q8H PRN Nausea And Vomiting Paliperidone 6 mg 01/31/21 13:00 02/02/21 09:34 Paliperidone Er 3 Mg Tab PO 6 mg QDAY PJ Administration Sodium Chloride 10 ml 01/18/21 10:00 02/02/21 09:35 Sodium Chloride 0.9% 10 Ml Flush Syringe IV 10 ml BID PJ Administration Sodium Chloride 10 ml 01/18/21 00:36 Sodium Chloride 0.9% 10 Ml Flush Syringe IV PRN PRN LINE FLUSH Nutrition/Malnutrition Assess - Dietary Evaluation Nutrition/Malnutrition Findings: Nutrition Notes Start: 01/24/21 10:40 Freq: Status: Active Protocol: Document 01/31/21 13:02 (Rec: 01/31/21 13:06 [email or web address]) Nutrition Notes Initial or Follow up Reassessment Current Diagnosis Respiratory Failure Other Pertinent Diagnosis pneu, COVID-19(+), AMS Current Diet Cardiac diet with Consistent CHO modifications Labs/Tests Reviewed Pertinent Medications Reviewed Height 5 ft 4 in Weight 91.3 kg [place] Body Weight (kg) 54.54 BMI 34.5 Weight change and time frame Wt fluctuations Weight Status Obese Subjective/Other Information FU for intakes. Pt did not answer phone. Per chart, pt ate 50% of meals yesterday. Percent of energy/protein needs met: 72%/73% (excluding ONS) Burn Absent Trauma Absent Current % PO Fair (50-74%) Minimum of two criteria No Energy Intake (non-severe) <75% Estimated Energy Requirement >7 days #1 Nutrition Diagnosis Inadequate oral intake As Evidenced by Signs and Symptoms pt consuming 50% of meals Diagnosis Progress(for reassessment Worsened documentation) Is patient on ventilator? No Is Patient Ambulatory and/or Out of Bed No REE-([place]-confined to bed) 1789.884 Kcal/Kg value to use for calculation 15 Approximate Energy Requirements Using 1370 kcal/Kg Calculation Used for Recommendations Kcal/kg Additional Notes PRO needs: 59-74 g(0.8-1 g/kg AdBW 74 kg) Fluid needs: 1mL/kcal Nutrition Intervention Change Diet Order: Continue Cardiac with Consistent CHO modifications Add Supplement/Snack (indicate name/kcal Glucerna BID /protein ) Provides kCal: 440 Provides Protein (gm) 20 Goal #1 Meet at least 75% of energy and protein needs via PO and ONS intakes Anticipated Discharge Needs: Cardiac/Consistent CHO Follow-Up By: 02/04/21 Additional Comments F/U for stable intakes and ONS tolerance
--- NOTE | 2021-02-02 11:29 | Progress Note ---
Assessment and Plan 55 y/o female admitted with acute respiratory failure secondary to pneumonia, positive for Sars CoV2 02/02/21: Lasix again today. Patient refuses to prone. Guarded prognosis. 02/01/21: Will give another 40 of lasix today. Will speak with RT about being more aggressive with weaning of oxygen. Prone if possible. 01/31/21: Increased lasix to 40 today. Prone if possible. 01/30/21: Lasix 20mg IV today. Continue Antipsychotic therapy management. Prone as tolerated if patient willing. 01/29/21: Will give lasix again today. Will change Haldol to IM since patient is refusing PO meds. 01/28/21: Will give lasix again today. Continue all other therapies. Prone if patient will and tolerate. STeroids. Guarded prognosis. 01/20/21: Gave Haldol 5 and patient has calmed down and become more appropriate, allowing us to place bipap back on. COntinue steroids and remdesivir therapy. Doubt patient will be able to prone successfully. Will try lasix today again to see if this helps. Very very guarded prognosis. 01/19/21: Continue decadron, suggest increase given patient body habitus to BID. ID consult for Remdesivir therapy and to see if she is a candidate for Actemra. Prone as tolerated during the day and sleep prone at night. Will give lasix again today. Guarded prognosis. 1. Prone 2. Lasix 3. Agree with steroids 4. Follow up COVID testing Guarded prognosis Subjective Date of service: 02/02/21 Principal diagnosis: Covid-19 Interval history: Still on HFNC. Objective Vital Signs - 12hr 02/02/21 02/02/21 02/02/21 02:00 04:16 05:55 Temperature 98.7 F Pulse Rate 115 H Pulse Rate [ Anterior Bilateral Throughout] Respiratory 20 Rate Respiratory Rate [Anterior Bilateral Throughout] Blood Pressure 140/68 O2 Sat by Pulse 96 94 89 Oximetry 02/02/21 09:13 Temperature Pulse Rate Pulse Rate [ 125 H Anterior Bilateral Throughout] Respiratory Rate Respiratory 20 Rate [Anterior Bilateral Throughout] Blood Pressure O2 Sat by Pulse 93 Oximetry Constitutional: alert, other (critically ill on HFNC 100% FiO2) Eyes: non-icteric ENT: oropharynx moist Neck: supple, other (large in circumference) Effort: mildly labored Ascultation: Bilateral: clear Cardiovascular: other (tachy, RR; no mrg) Gastrointestinal: normoactive bowel sounds, soft, non-tender, non-distended Integumentary: normal Extremities: no cyanosis, no edema, pink and warm Neurologic: normal mental status, non-focal exam, pupils equal and round Psychiatric: mood appropriate, affect normal CBC and BMP: 02/02/21 07:56 02/02/21 07:56 ABG, PT/INR, D-dimer: ABG ABG pH 7.461 pH Units (7.350-7.450) H 01/18/21 17:18 ABG pCO2 36.6 mm Hg 01/18/21 17:18 ABG pO2 53.1 mm Hg (80.0-90.0) L 01/18/21 17:18 ABG O2 Saturation 89.4 % (95.0-99.0) L 01/18/21 17:18 PT/INR, D-dimer D-Dimer 1884.49 ng/mlDDU (0-234) H 01/28/21 08:46 Abnormal lab findings: Abnormal Labs 01/17/21 01/17/21 01/17/21 09:25 16:41 16:41 WBC RBC 5.23 H MCV 76 L MCH 24 L RDW Lymph % (Auto) 9.4 L Woods % (Auto) Lymph # (Auto) 0.8 L Seg Neutrophils % 85.4 H Seg Neuts % (Manual) Lymphocytes % (Manual) Seg Neutrophils # Seg Neutrophils # Man D-Dimer ABG pH ABG pO2 ABG O2 Saturation Oxyhemoglobin Sodium 128 L Chloride 90.8 L Carbon Dioxide BUN Creatinine Glucose 372 H POC Glucose Calcium Ferritin AST 98 H Lactate Dehydrogenase C-Reactive Protein Total Protein Albumin 3.2 L Coronavirus (PCR) Positive A 01/17/21 01/17/21 01/17/21 17:46 17:46 17:46 WBC RBC MCV MCH RDW Lymph % (Auto) Woods % (Auto) Lymph # (Auto) Seg Neutrophils % Seg Neuts % (Manual) Lymphocytes % (Manual) Seg Neutrophils # Seg Neutrophils # Man D-Dimer 1058.54 H ABG pH ABG pO2 ABG O2 Saturation Oxyhemoglobin Sodium Chloride Carbon Dioxide BUN Creatinine Glucose 369 H POC Glucose Calcium Ferritin 668.4 H AST Lactate Dehydrogenase 519 H C-Reactive Protein 19.20 H Total Protein Albumin Coronavirus (PCR) 01/18/21 01/18/21 01/19/21 09:01 17:18 05:11 WBC 14.2 H RBC MCV 74 L MCH 23 L RDW Lymph % (Auto) Woods % (Auto) Lymph # (Auto) Seg Neutrophils % Seg Neuts % (Manual) 88.0 H Lymphocytes % (Manual) 10.0 L Seg Neutrophils # Seg Neutrophils # Man 12.5 H D-Dimer ABG pH 7.461 H ABG pO2 53.1 L ABG O2 Saturation 89.4 L Oxyhemoglobin 88.0 L Sodium 132 L Chloride 93.6 L Carbon Dioxide BUN 18 H Creatinine Glucose 367 H POC Glucose Calcium 7.8 L Ferritin AST Lactate Dehydrogenase C-Reactive Protein Total Protein Albumin Coronavirus (PCR) 01/19/21 01/19/21 01/19/21 05:11 11:06 14:43 WBC RBC MCV MCH RDW Lymph % (Auto) Woods % (Auto) Lymph # (Auto) Seg Neutrophils % Seg Neuts % (Manual) Lymphocytes % (Manual) Seg Neutrophils # Seg Neutrophils # Man D-Dimer ABG pH ABG pO2 ABG O2 Saturation Oxyhemoglobin Sodium Chloride Carbon Dioxide BUN 18 H Creatinine Glucose 304 H 379 H POC Glucose 382 H Calcium 8.3 L Ferritin AST 92 H 96 H Lactate Dehydrogenase C-Reactive Protein Total Protein Albumin 3.0 L 3.0 L Coronavirus (PCR) 01/19/21 01/19/21 01/20/21 16:18 22:18 07:31 WBC RBC MCV MCH RDW Lymph % (Auto) Woods % (Auto) Lymph # (Auto) Seg Neutrophils % Seg Neuts % (Manual) Lymphocytes % (Manual) Seg Neutrophils # Seg Neutrophils # Man D-Dimer ABG pH ABG pO2 ABG O2 Saturation Oxyhemoglobin Sodium Chloride Carbon Dioxide BUN Creatinine Glucose POC Glucose 374 H 341 H 344 H Calcium Ferritin AST Lactate Dehydrogenase C-Reactive Protein Total Protein Albumin Coronavirus (PCR) 01/20/21 01/20/21 01/20/21 07:33 12:14 13:54 WBC RBC MCV MCH RDW Lymph % (Auto) Woods % (Auto) Lymph # (Auto) Seg Neutrophils % Seg Neuts % (Manual) Lymphocytes % (Manual) Seg Neutrophils # Seg Neutrophils # Man D-Dimer ABG pH ABG pO2 ABG O2 Saturation Oxyhemoglobin Sodium Chloride Carbon Dioxide BUN 32 H 31 H Creatinine Glucose 343 H 396 H POC Glucose 365 H Calcium Ferritin AST 57 H 54 H Lactate Dehydrogenase C-Reactive Protein Total Protein 8.3 H Albumin 2.7 L 3.1 L Coronavirus (PCR) 01/20/21 01/20/21 01/21/21 18:28 21:25 04:45 WBC RBC MCV MCH RDW Lymph % (Auto) Woods % (Auto) Lymph # (Auto) Seg Neutrophils % Seg Neuts % (Manual) Lymphocytes % (Manual) Seg Neutrophils # Seg Neutrophils # Man D-Dimer ABG pH ABG pO2 ABG O2 Saturation Oxyhemoglobin Sodium Chloride Carbon Dioxide 31 H BUN 41 H Creatinine Glucose 377 H POC Glucose 403 H 340 H Calcium Ferritin AST Lactate Dehydrogenase C-Reactive Protein Total Protein 8.3 H Albumin 3.0 L Coronavirus (PCR) 01/21/21 01/21/21 01/21/21 04:45 04:45 04:45 WBC RBC MCV MCH RDW Lymph % (Auto) [place] % (Auto) Lymph # (Auto) Seg Neutrophils % Seg Neuts % (Manual) Lymphocytes % (Manual) Seg Neutrophils # Seg Neutrophils # Man D-Dimer > 16802 H ABG pH ABG pO2 ABG O2 Saturation Oxyhemoglobin Sodium Chloride Carbon Dioxide BUN Creatinine Glucose POC Glucose Calcium Ferritin 1688.0 H AST Lactate Dehydrogenase 649 H C-Reactive Protein 17.00 H Total Protein Albumin Coronavirus (PCR) 01/21/21 01/21/21 01/21/21 09:45 11:29 12:09 WBC RBC MCV MCH RDW Lymph % (Auto) [place] % (Auto) Lymph # (Auto) Seg Neutrophils % Seg Neuts % (Manual) Lymphocytes % (Manual) Seg Neutrophils # Seg Neutrophils # Man D-Dimer ABG pH ABG pO2 ABG O2 Saturation Oxyhemoglobin Sodium 151 H Chloride Carbon Dioxide BUN 40 H Creatinine Glucose 412 H POC Glucose 401 H 372 H Calcium Ferritin AST Lactate Dehydrogenase C-Reactive Protein Total Protein Albumin 3.4 L Coronavirus (PCR) 01/21/21 01/21/21 01/22/21 18:26 21:09 02:00 WBC RBC MCV MCH RDW Lymph % (Auto) [place] % (Auto) Lymph # (Auto) Seg Neutrophils % Seg Neuts % (Manual) Lymphocytes % (Manual) Seg Neutrophils # Seg Neutrophils # Man D-Dimer ABG pH ABG pO2 ABG O2 Saturation Oxyhemoglobin Sodium Chloride Carbon Dioxide BUN Creatinine Glucose POC Glucose 376 H 322 H 231 H Calcium Ferritin AST Lactate Dehydrogenase C-Reactive Protein Total Protein Albumin Coronavirus (PCR) 01/22/21 01/22/21 01/22/21 05:24 08:25 08:25 WBC RBC 5.44 H MCV 75 L MCH 23 L RDW 15.5 H Lymph % (Auto) Woods % (Auto) Lymph # (Auto) Seg Neutrophils % Seg Neuts % (Manual) Lymphocytes % (Manual) Seg Neutrophils # Seg Neutrophils # Man D-Dimer ABG pH ABG pO2 ABG O2 Saturation Oxyhemoglobin Sodium 155 H Chloride 112.4 H Carbon Dioxide BUN 33 H Creatinine Glucose 274 H POC Glucose 275 H Calcium Ferritin AST Lactate Dehydrogenase C-Reactive Protein Total Protein Albumin Coronavirus (PCR) 01/22/21 01/22/21 01/22/21 11:53 16:03 21:41 WBC RBC MCV MCH RDW Lymph % (Auto) Woods % (Auto) Lymph # (Auto) Seg Neutrophils % Seg Neuts % (Manual) Lymphocytes % (Manual) Seg Neutrophils # Seg Neutrophils # Han D-Dimer ABG pH ABG pO2 ABG O2 Saturation Oxyhemoglobin Sodium Chloride Carbon Dioxide BUN Creatinine Glucose POC Glucose 265 H 293 H 279 H Calcium Ferritin AST Lactate Dehydrogenase C-Reactive Protein Total Protein Albumin Coronavirus (PCR) 01/23/21 01/23/21 01/23/21 02:03 05:46 05:59 WBC RBC MCV MCH RDW Lymph % (Auto) [place] % (Auto) Lymph # (Auto) Seg Neutrophils % Seg Neuts % (Manual) Lymphocytes % (Manual) Seg Neutrophils # Seg Neutrophils # Man D-Dimer ABG pH ABG pO2 ABG O2 Saturation Oxyhemoglobin Sodium Chloride Carbon Dioxide BUN Creatinine Glucose POC Glucose 268 H 303 H Calcium Ferritin 1116.0 H AST Lactate Dehydrogenase C-Reactive Protein Total Protein Albumin Coronavirus (PCR) 01/23/21 01/23/21 01/23/21 05:59 07:42 09:11 WBC RBC MCV MCH RDW Lymph % (Auto) Woods % (Auto) Lymph # (Auto) Seg Neutrophils % Seg Neuts % (Manual) Lymphocytes % (Manual) Seg Neutrophils # Seg Neutrophils # Man D-Dimer ABG pH ABG pO2 ABG O2 Saturation Oxyhemoglobin Sodium Chloride Carbon Dioxide BUN Creatinine Glucose POC Glucose 291 H 285 H Calcium Ferritin AST Lactate Dehydrogenase 680 H C-Reactive Protein 5.80 H Total Protein Albumin Coronavirus (PCR) 01/23/21 01/23/21 01/23/21 14:06 17:05 17:59 WBC RBC MCV MCH RDW Lymph % (Auto) [place] % (Auto) Lymph # (Auto) Seg Neutrophils % Seg Neuts % (Manual) Lymphocytes % (Manual) Seg Neutrophils # Seg Neutrophils # Man D-Dimer ABG pH ABG pO2 ABG O2 Saturation Oxyhemoglobin Sodium Chloride Carbon Dioxide BUN Creatinine Glucose POC Glucose 228 H 300 H 278 H Calcium Ferritin AST Lactate Dehydrogenase C-Reactive Protein Total Protein Albumin Coronavirus (PCR) 01/23/21 01/24/21 01/24/21 21:43 02:14 05:15 WBC RBC MCV MCH RDW Lymph % (Auto) [place] % (Auto) Lymph # (Auto) Seg Neutrophils % Seg Neuts % (Manual) Lymphocytes % (Manual) Seg Neutrophils # Seg Neutrophils # Man D-Dimer ABG pH ABG pO2 ABG O2 Saturation Oxyhemoglobin Sodium Chloride Carbon Dioxide BUN Creatinine Glucose POC Glucose 223 H 427 H 392 H Calcium Ferritin AST Lactate Dehydrogenase C-Reactive Protein Total Protein Albumin Coronavirus (PCR) 01/24/21 01/24/21 01/24/21 07:03 07:03 09:10 WBC RBC 5.49 H MCV 75 L MCH 23 L RDW Lymph % (Auto) 7.0 L Woods % (Auto) Lymph # (Auto) 0.5 L Seg Neutrophils % 86.1 H Seg Neuts % (Manual) Lymphocytes % (Manual) Seg Neutrophils # Seg Neutrophils # Man D-Dimer ABG pH ABG pO2 ABG O2 Saturation Oxyhemoglobin Sodium 149 H Chloride 111.4 H Carbon Dioxide BUN 24 H Creatinine Glucose 339 H POC Glucose 284 H Calcium Ferritin AST Lactate Dehydrogenase C-Reactive Protein Total Protein Albumin Coronavirus (PCR) 01/24/21 01/24/21 01/24/21 13:47 18:30 21:58 WBC RBC MCV MCH RDW Lymph % (Auto) [place] % (Auto) Lymph # (Auto) Seg Neutrophils % Seg Neuts % (Manual) Lymphocytes % (Manual) Seg Neutrophils # Seg Neutrophils # Man D-Dimer ABG pH ABG pO2 ABG O2 Saturation Oxyhemoglobin Sodium Chloride Carbon Dioxide BUN Creatinine Glucose POC Glucose 317 H 180 H 262 H Calcium Ferritin AST Lactate Dehydrogenase C-Reactive Protein Total Protein Albumin Coronavirus (PCR) 01/25/21 01/25/21 01/25/21 01:22 05:35 08:36 WBC RBC MCV MCH RDW Lymph % (Auto) Woods % (Auto) Lymph # (Auto) Seg Neutrophils % Seg Neuts % (Manual) Lymphocytes % (Manual) Seg Neutrophils # Seg Neutrophils # Man D-Dimer ABG pH ABG pO2 ABG O2 Saturation Oxyhemoglobin Sodium Chloride Carbon Dioxide BUN Creatinine Glucose POC Glucose 280 H 243 H 216 H Calcium Ferritin AST Lactate Dehydrogenase C-Reactive Protein Total Protein Albumin Coronavirus (PCR) 01/25/21 01/25/21 01/25/21 15:14 15:14 15:14 WBC RBC MCV MCH RDW Lymph % (Auto) [place] % (Auto) Lymph # (Auto) Seg Neutrophils % Seg Neuts % (Manual) Lymphocytes % (Manual) Seg Neutrophils # Seg Neutrophils # Man D-Dimer 6312.54 H ABG pH ABG pO2 ABG O2 Saturation Oxyhemoglobin Sodium 146 H Chloride 108.1 H Carbon Dioxide BUN 19 H Creatinine Glucose 287 H POC Glucose Calcium 8.3 L Ferritin 869.5 H AST Lactate Dehydrogenase 685 H C-Reactive Protein Total Protein Albumin Coronavirus (PCR) 01/25/21 01/25/21 01/26/21 16:06 21:18 01:47 WBC RBC MCV MCH RDW Lymph % (Auto) [place] % (Auto) Lymph # (Auto) Seg Neutrophils % Seg Neuts % (Manual) Lymphocytes % (Manual) Seg Neutrophils # Seg Neutrophils # Man D-Dimer ABG pH ABG pO2 ABG O2 Saturation Oxyhemoglobin Sodium Chloride Carbon Dioxide BUN Creatinine Glucose POC Glucose 267 H 197 H 255 H Calcium Ferritin AST Lactate Dehydrogenase C-Reactive Protein Total Protein Albumin Coronavirus (PCR) 01/26/21 01/26/21 01/26/21 05:23 05:23 05:23 WBC RBC MCV MCH RDW Lymph % (Auto) [place] % (Auto) Lymph # (Auto) Seg Neutrophils % Seg Neuts % (Manual) Lymphocytes % (Manual) Seg Neutrophils # Seg Neutrophils # Man D-Dimer 5809.58 H ABG pH ABG pO2 ABG O2 Saturation Oxyhemoglobin Sodium 149 H Chloride 109.3 H Carbon Dioxide BUN 24 H Creatinine Glucose 362 H POC Glucose Calcium Ferritin 877.1 H AST Lactate Dehydrogenase 655 H C-Reactive Protein Total Protein Albumin Coronavirus (PCR) 01/26/21 01/26/21 01/26/21 05:23 06:06 09:28 WBC RBC 5.49 H MCV 77 L MCH 23 L RDW Lymph % (Auto) [place] % (Auto) Lymph # (Auto) 0.8 L Seg Neutrophils % 78.9 H Seg Neuts % (Manual) Lymphocytes % (Manual) Seg Neutrophils # Seg Neutrophils # Man D-Dimer ABG pH ABG pO2 ABG O2 Saturation Oxyhemoglobin Sodium Chloride Carbon Dioxide BUN Creatinine Glucose POC Glucose 387 H 308 H Calcium Ferritin AST Lactate Dehydrogenase C-Reactive Protein Total Protein Albumin Coronavirus (PCR) 01/26/21 01/26/21 01/27/21 15:56 21:28 02:51 WBC RBC MCV MCH RDW Lymph % (Auto) [place] % (Auto) Lymph # (Auto) Seg Neutrophils % Seg Neuts % (Manual) Lymphocytes % (Manual) Seg Neutrophils # Seg Neutrophils # Man D-Dimer ABG pH ABG pO2 ABG O2 Saturation Oxyhemoglobin Sodium Chloride Carbon Dioxide BUN Creatinine Glucose POC Glucose 172 H 316 H 267 H Calcium Ferritin AST Lactate Dehydrogenase C-Reactive Protein Total Protein Albumin Coronavirus (PCR) 01/27/21 01/27/21 01/27/21 04:22 04:22 04:22 WBC RBC MCV MCH RDW Lymph % (Auto) [place] % (Auto) Lymph # (Auto) Seg Neutrophils % Seg Neuts % (Manual) Lymphocytes % (Manual) Seg Neutrophils # Seg Neutrophils # Man D-Dimer 4046.06 H ABG pH ABG pO2 ABG O2 Saturation Oxyhemoglobin Sodium Chloride 107.7 H Carbon Dioxide BUN 30 H Creatinine Glucose 281 H POC Glucose Calcium Ferritin 812.2 H AST Lactate Dehydrogenase 570 H C-Reactive Protein Total Protein Albumin Coronavirus (PCR) 01/27/21 01/27/21 01/27/21 04:22 05:55 12:00 WBC RBC 5.15 H MCV 76 L MCH 23 L RDW 15.5 H Lymph % (Auto) 12.7 L Woods % (Auto) Lymph # (Auto) 0.9 L Seg Neutrophils % 81.3 H Seg Neuts % (Manual) Lymphocytes % (Manual) Seg Neutrophils # Seg Neutrophils # Man D-Dimer ABG pH ABG pO2 ABG O2 Saturation Oxyhemoglobin Sodium Chloride Carbon Dioxide BUN Creatinine Glucose POC Glucose 275 H 121 H Calcium Ferritin AST Lactate Dehydrogenase C-Reactive Protein Total Protein Albumin Coronavirus (PCR) 01/27/21 01/27/21 01/28/21 17:32 21:23 02:08 WBC RBC MCV MCH RDW Lymph % (Auto) [place] % (Auto) Lymph # (Auto) Seg Neutrophils % Seg Neuts % (Manual) Lymphocytes % (Manual) Seg Neutrophils # Seg Neutrophils # Man D-Dimer ABG pH ABG pO2 ABG O2 Saturation Oxyhemoglobin Sodium Chloride Carbon Dioxide BUN Creatinine Glucose POC Glucose 195 H 179 H 210 H Calcium Ferritin AST Lactate Dehydrogenase C-Reactive Protein Total Protein Albumin Coronavirus (PCR) 01/28/21 01/28/21 01/28/21 05:09 08:44 08:46 WBC RBC MCV MCH RDW Lymph % (Auto) [place] % (Auto) Lymph # (Auto) Seg Neutrophils % Seg Neuts % (Manual) Lymphocytes % (Manual) Seg Neutrophils # Seg Neutrophils # Man D-Dimer 1884.49 H ABG pH ABG pO2 ABG O2 Saturation Oxyhemoglobin Sodium Chloride Carbon Dioxide BUN Creatinine Glucose POC Glucose 202 H 191 H Calcium Ferritin AST Lactate Dehydrogenase C-Reactive Protein Total Protein Albumin Coronavirus (PCR) 01/28/21 01/28/21 01/28/21 08:46 08:46 12:18 WBC RBC MCV MCH RDW Lymph % (Auto) [place] % (Auto) Lymph # (Auto) Seg Neutrophils % Seg Neuts % (Manual) Lymphocytes % (Manual) Seg Neutrophils # Seg Neutrophils # Man D-Dimer ABG pH ABG pO2 ABG O2 Saturation Oxyhemoglobin Sodium Chloride Carbon Dioxide BUN Creatinine Glucose POC Glucose 221 H Calcium Ferritin 797.7 H AST Lactate Dehydrogenase 556 H C-Reactive Protein Total Protein Albumin Coronavirus (PCR) 01/28/21 01/28/21 01/29/21 18:21 21:45 01:48 WBC RBC MCV MCH RDW Lymph % (Auto) [place] % (Auto) Lymph # (Auto) Seg Neutrophils % Seg Neuts % (Manual) Lymphocytes % (Manual) Seg Neutrophils # Seg Neutrophils # Man D-Dimer ABG pH ABG pO2 ABG O2 Saturation Oxyhemoglobin Sodium Chloride Carbon Dioxide BUN Creatinine Glucose POC Glucose 214 H 148 H 248 H Calcium Ferritin AST Lactate Dehydrogenase C-Reactive Protein Total Protein Albumin Coronavirus (PCR) 01/29/21 01/29/21 01/29/21 05:17 10:17 11:39 WBC RBC MCV MCH RDW Lymph % (Auto) [place] % (Auto) Lymph # (Auto) Seg Neutrophils % Seg Neuts % (Manual) Lymphocytes % (Manual) Seg Neutrophils # Seg Neutrophils # Man D-Dimer ABG pH ABG pO2 ABG O2 Saturation Oxyhemoglobin Sodium Chloride Carbon Dioxide BUN Creatinine Glucose POC Glucose 256 H 193 H 177 H Calcium Ferritin AST Lactate Dehydrogenase C-Reactive Protein Total Protein Albumin Coronavirus (PCR) 01/29/21 01/29/21 01/30/21 18:06 20:24 06:07 WBC RBC MCV MCH RDW Lymph % (Auto) [place] % (Auto) Lymph # (Auto) Seg Neutrophils % Seg Neuts % (Manual) Lymphocytes % (Manual) Seg Neutrophils # Seg Neutrophils # Man D-Dimer ABG pH ABG pO2 ABG O2 Saturation Oxyhemoglobin Sodium Chloride Carbon Dioxide BUN Creatinine Glucose POC Glucose 107 H 114 H 114 H Calcium Ferritin AST Lactate Dehydrogenase C-Reactive Protein Total Protein Albumin Coronavirus (PCR) 01/30/21 01/30/21 01/30/21 12:08 16:11 21:19 WBC RBC MCV MCH RDW Lymph % (Auto) [place] % (Auto) Lymph # (Auto) Seg Neutrophils % Seg Neuts % (Manual) Lymphocytes % (Manual) Seg Neutrophils # Seg Neutrophils # Man D-Dimer ABG pH ABG pO2 ABG O2 Saturation Oxyhemoglobin Sodium Chloride Carbon Dioxide BUN Creatinine Glucose POC Glucose 178 H 142 H 244 H Calcium Ferritin AST Lactate Dehydrogenase C-Reactive Protein Total Protein Albumin Coronavirus (PCR) 01/31/21 01/31/21 01/31/21 05:30 06:42 07:50 WBC RBC MCV MCH RDW Lymph % (Auto) [place] % (Auto) Lymph # (Auto) Seg Neutrophils % Seg Neuts % (Manual) Lymphocytes % (Manual) Seg Neutrophils # Seg Neutrophils # Man D-Dimer ABG pH ABG pO2 ABG O2 Saturation Oxyhemoglobin Sodium Chloride Carbon Dioxide BUN 20 H Creatinine Glucose 160 H POC Glucose 164 H 152 H Calcium 8.0 L Ferritin AST Lactate Dehydrogenase C-Reactive Protein Total Protein Albumin Coronavirus (PCR) 01/31/21 01/31/21 01/31/21 11:40 16:37 21:01 WBC RBC MCV MCH RDW Lymph % (Auto) [place] % (Auto) Lymph # (Auto) Seg Neutrophils % Seg Neuts % (Manual) Lymphocytes % (Manual) Seg Neutrophils # Seg Neutrophils # Man D-Dimer ABG pH ABG pO2 ABG O2 Saturation Oxyhemoglobin Sodium Chloride Carbon Dioxide BUN Creatinine Glucose POC Glucose 129 H 141 H 125 H Calcium Ferritin AST Lactate Dehydrogenase C-Reactive Protein Total Protein Albumin Coronavirus (PCR) 02/01/21 02/01/21 02/01/21 06:26 11:15 16:11 WBC RBC MCV MCH RDW Lymph % (Auto) [place] % (Auto) Lymph # (Auto) Seg Neutrophils % Seg Neuts % (Manual) Lymphocytes % (Manual) Seg Neutrophils # Seg Neutrophils # Man D-Dimer ABG pH ABG pO2 ABG O2 Saturation Oxyhemoglobin Sodium Chloride Carbon Dioxide BUN Creatinine Glucose POC Glucose 136 H 260 H 240 H Calcium Ferritin AST Lactate Dehydrogenase C-Reactive Protein Total Protein Albumin Coronavirus (PCR) 02/01/21 02/02/21 02/02/21 22:32 07:15 07:56 WBC 3.1 L RBC MCV 75 L MCH 23 L RDW Lymph % (Auto) 44.9 H Woods % (Auto) 9.2 H Lymph # (Auto) Seg Neutrophils % Seg Neuts % (Manual) Lymphocytes % (Manual) Seg Neutrophils # 1.3 L Seg Neutrophils # Man D-Dimer ABG pH ABG pO2 ABG O2 Saturation Oxyhemoglobin Sodium Chloride Carbon Dioxide BUN Creatinine Glucose POC Glucose 298 H 164 H Calcium Ferritin AST Lactate Dehydrogenase C-Reactive Protein Total Protein Albumin Coronavirus (PCR) 02/02/21 07:56 WBC RBC MCV MCH RDW Lymph % (Auto) [place] % (Auto) Lymph # (Auto) Seg Neutrophils % Seg Neuts % (Manual) Lymphocytes % (Manual) Seg Neutrophils # Seg Neutrophils # Man D-Dimer ABG pH ABG pO2 ABG O2 Saturation Oxyhemoglobin Sodium Chloride Carbon Dioxide 31 H BUN Creatinine 0.4 L Glucose 159 H POC Glucose Calcium 8.2 L Ferritin AST Lactate Dehydrogenase C-Reactive Protein Total Protein Albumin Coronavirus (PCR)
[2021-02-02] MEDS: MIRTAZAPINE 15 MG TAB PO SCH (22:45)
[2021-02-02] MEDS: INSULIN GLARGINE 100 UNITS/ML SUB-Q SCH (22:49)
[2021-02-03] MEDS: IPRATROPIUM/ALBUTEROL SULFATE 3 ML AMPUL.NEB IH SCH ×3 (07:59→20:34)
[2021-02-03] MEDS: INSULIN LISPRO 100 UNIT/ML SUB-Q SCH ×4 (09:13→22:43)
[2021-02-03] MEDS: DIVALPROEX ER 500 MG TAB PO SCH (09:13)
[2021-02-03] MEDS: METOPROLOL TARTRATE 25 MG TAB PO SCH ×2 (09:13→22:45)
[2021-02-03] MEDS: FAMOTIDINE 20 MG TAB PO SCH ×2 (09:13→22:44)
[2021-02-03] MEDS: ENOXAPARIN 100 MG/1 ML INJ SUB-Q SCH ×2 (09:13→22:44)
[2021-02-03] MEDS: ARIPiprazole 15 MG TAB PO SCH (09:13)
[2021-02-03] MEDS: PALIPERIDONE ER 3 MG TAB PO SCH (09:13)
--- NOTE | 2021-02-03 11:27 | Progress Note ---
Assessment and Plan Assessment and plan: This is a 55-year-old female with schizophrenia who presented to [facility] on 01/18 for shortness of breath, cough, subjective fever and not feeling well for the last couple days with known COVID-19 exposure. While in the emergency room patient was switched from non rebreather mask to high flow nasal cannula and his CTA chest showed no acute pulmonary embolism. Patient was admitted to the hospital service as a COVID-19 PUI with consults to CCM, infectious disease, psych. Severe COVID-19 pneumonia Acute hypoxic respiratory failure Obesity Schizophrenia Leukocytosis Hyperglycemia Schizophrenia Hypernatremia Hypercholermia -CCM, infectious disease, psychiatry consulted, appreciate recommendations -COVID-19 PCR positive -Droplet/contact isolation -Remdesivir, azithromycin, ceftriaxone, dexamethasone (twice daily dosing) -s/p Actemra -Wean supplemental oxygen as tolerated, pulmonary hygiene -Prone as tolerated -Trend COVID-19 inflammatory markers for risk stratification, CBC, CMP -SSI, Lantus -01/18 bilateral lower extremity Doppler ultrasound negative for DVT -01/17 CTA shows no evidence of pulmonary embolism, extensive bilateral pneumonia, hepatomegaly with hepatic steatosis 01/18/2021 -Acute hypoxic respiratory failure requiring high flow oxygen 40 L. Nebulizer treatment -Patient is admitted for suspected Covid pneumonia. Patient is on dexamethasone, COVID-19 test is pending. Patient is on empiric antibiotics. -ID consulted, will consult pulmonary. -Patient has hyponatremia yesterday and I will repeat and if it is low I will manage accordingly -Patient has elevated D-dimer and CTA chest and bilateral Doppler ultrasound of the lower extremities pending 01/19/2021 -Acute hypoxic respiratory failure currently on BiPAP, nebulizer treatment. I will put in orders to transfer to [facility] yesterday but there was no bed. -Patient is positive for Covid and she is on Decadron and remdesivir. Actemra was ordered on 01/19/2021 -ID evaluated the patient and recommend to continue Decadron and remdesivir, also to continue ceftriaxone and azithromycin for 5 days because of the elevated procalcitonin level. Pulmonary was consulted and recommend to continue current management and add Lasix -CTA chest was done and significant for bilateral pulmonary opacities, negative for PE, Doppler ultrasound of the lower extremities was negative for DVT. -Prognosis is guarded. -Patient is currently on BiPAP and she was agitated and trying to take off the BiPAP, I put the patient on restraints. Discussed with warehouse processor to transfer the patient to IMCU and if there is no bed she need to be transferred to CCU. 01/20: Patient received 5 mg of Haldol for severe agitation and refusal to keep high flow nasal cannula in place. [facility] ordered Lasix again. Psych was consulted today. Patient was on BiPAP therapy all night and RT attempted to give her a break patient is on high flow nasal cannula however she did not keep this in place and was paced back on BiPAP after receiving Haldol. She was started on Lantus today. 01/21: Patient is on BiPAP and on time examination was on 20/10 100% FiO2. Patient was started on Lantus. Psych consult completed and started on Haldol p.o. twice daily and Mirtazepin PO daily. No acute events reported overnight. Patient's D-dimer is greater than 10,000 started on prophylactic Lovenox as recent CTA chest and bilateral lower extremity Doppler ultrasound were negative. 01/22: Patient has been taken off BiPAP therapy and placed on high flow nasal cannula. Patient has been downgraded to IMCU. Patient's hyponatremia and hypochloremia have worsened. 01/23: Patient was on BiPAP overnight with FiO2 85% and IPAP 20/EPAP 10. Patient currently with high flow nasal cannula 40 L O2 with an FiO2 of 100%. Continue remdesivir and dexamethasone. Patient is s/p Actemra on 01/20. Continue empiric antibiotics per ID recommendations. Continue anticoagulation per protocol. 01/24: Patient is tachycardic and hypertensive and [facility] has opted to add amlod ipine. Patient remains on 40 L 100% high flow nasal cannula. Continue remdesivir and dexamethasone. Patient is s/p Actemra on 01/20. Continue empiric antibiotics per ID recommendations. Continue anticoagulation per protocol. 01/25: Patient currently with high flow nasal cannula 40 L/min with FiO2 100%. Continue dexamethasone. Patient has completed remdesivir and s/p Actemra on 01/20. Continue full dose anticoagulation given high elevated D-dimer. Continue to trend inflammatory markers. Prognosis remains guarded. 01/26: Patient currently with high flow nasal cannula 35 L/min and FiO2 90%. Continue dexamethasone. Patient has completed remdesivir and s/p Actemra on 01/20. Continue full dose anticoagulation given high elevated D-dimer. Continue to trend inflammatory markers. Prognosis remains guarded. 01/27: Patient currently with high flow nasal cannula/Vapotherm 35 L/min O2 with FiO2 90%. Patient has completed remdesivir and s/p Actemra on 01/20. Continue full dose anticoagulation given high elevated D-dimer. Continue to trend inflammatory markers. Prognosis remains guarded. 01/28; Patient currently with high flow nasal cannula/Vapotherm 35 L/min O2 with FiO2 90%. Patient has completed remdesivir and s/p Actemra on 01/20. Continue full dose anticoagulation given high elevated D-dimer. Continue to trend inflammatory markers. Prognosis remains guarded. 01/29; patient is currently on 35 L of high flow oxygen. Prognosis guarded. Patient can be transferred to regular floor. 01/30/2021; patient is currently on 35 L of high flow oxygen, FiO2 of 65%. Patient has flat affect and did not talk to me. Patient refused most of her p.o. medications. Patient finished remdesivir, steroid. 01/31/2021; patient is on 35 L of high flow oxygen, FiO2 65%. Patient was calm and cooperative and communicative today. pulmonary is following. Patient finished remdesivir and steroid. 02/01/2021; patient was on 40 L of high flow oxygen.. I have called and discussed with her mother yesterday. Her mother told me patient was last followed at [facility] and I called facility and they told me medication she was on and I put these medications. Patient refused to eat so I put the patient on NG tube feeding for medications. Prognosis is guarded. 02/02/2021; patient is on 4 L of high flow oxygen with FiO2 of 60%. Her outpatient psych medications were reconciled. Patient was taking medications and as needed NG tube. Pulmonary is following the patient. 02/03/21: Patient noted with mild epistaxis this morning we will order some Afrin to help. Continue current management patient is on 35 L high flow. No worsening distress but still with intermittent confusion sometimes takes off the oxygen. Will repeat a trial of Lasix and monitor renal function with a.m. labs. Plan discussed with nurse at bedside. I also encouraged proning again. History Interval history: Patient seen and examined this morning noted with mild epistaxis otherwise continues on high flow 35L of high flow oxygen, FiO2 of 60%. Hospitalist Physical - Physical exam Narrative exam: ON HIGH FLOW The patient appeared well nourished and normally developed. Vital signs as documented. Head exam is unremarkable. No scleral icterus . Neck is without jugular venous distension, thyromegaly, or carotid bruits. Lungs decreased air entry on both lungs Cardiac exam reveals regular rate and Rhythm. Abdominal exam reveals normal bowel sounds, nontender, no organomegaly. Extremities are nonedematous and both femoral and pedal pulses are normal. RIFFLER TENDER: Patient was on restraints. Patient is pleasant and communicative today, but still confused. - Constitutional Vitals: Temp Pulse Resp BP Pulse Ox 99.1 F 115 H 21 135/75 93 02/03/21 05:50 02/03/21 08:00 02/03/21 08:00 02/03/21 05:50 02/03/21 08:00 General appearance: Present: no acute distress, well-nourished HEART Score - HEART Score Troponin: Troponin T < 0.010 ng/mL (0.00-0.029) 01/17/21 16:41 Results - Labs CBC & Chem 7: 02/02/21 07:56 02/02/21 07:56 Labs: Laboratory Last Values WBC 3.1 K/mm3 (4.5-11.0) L 02/02/21 07:56 RBC 4.70 M/mm3 (3.65-5.03) 02/02/21 07:56 Hgb 10.7 gm/dl (10.1-14.3) 02/02/21 07:56 Hct 35.4 % (30.3-42.9) 02/02/21 07:56 MCV 75 fl (79-97) L 02/02/21 07:56 MCH 23 pg (28-32) L 02/02/21 07:56 MCHC 30 % (30-34) 02/02/21 07:56 RDW 15.0 % (13.2-15.2) 02/02/21 07:56 Plt Count 155 K/mm3 (140-440) 02/02/21 07:56 Lymph % (Auto) 44.9 % (13.4-35.0) H 02/02/21 07:56 [place] % (Auto) 9.2 % (0.0-7.3) H 02/02/21 07:56 Eos % (Auto) 3.6 % (0.0-4.3) 02/02/21 07:56 Baso % (Auto) 0.3 % (0.0-1.8) 02/02/21 07:56 Lymph # (Auto) 1.4 K/mm3 (1.2-5.4) 02/02/21 07:56 [place] # (Auto) 0.3 K/mm3 (0.0-0.8) 02/02/21 07:56 Eos # (Auto) 0.1 K/mm3 (0.0-0.4) 02/02/21 07:56 Baso # (Auto) 0.0 K/mm3 (0.0-0.1) 02/02/21 07:56 Add Manual Diff Complete 01/19/21 05:11 Total Counted 100 01/19/21 05:11 Seg Neutrophils % 42.0 % (40.0-70.0) 02/02/21 07:56 Seg Neuts % (Manual) 88.0 % (40.0-70.0) H 01/19/21 05:11 Lymphocytes % (Manual) 10.0 % (13.4-35.0) L 01/19/21 05:11 Monocytes % (Manual) 2.0 % (0.0-7.3) 01/19/21 05:11 Nucleated RBC % Not Reportable 01/19/21 05:11 Seg Neutrophils # 1.3 K/mm3 (1.8-7.7) L 02/02/21 07:56 Seg Neutrophils # Man 12.5 K/mm3 (1.8-7.7) H 01/19/21 05:11 Band Neutrophils # 0.0 K/mm3 01/19/21 05:11 Lymphocytes # (Manual) 1.4 K/mm3 (1.2-5.4) 01/19/21 05:11 Abs React Lymphs (Man) 0.0 K/mm3 01/19/21 05:11 Monocytes # (Manual) 0.3 K/mm3 (0.0-0.8) 01/19/21 05:11 Eosinophils # (Manual) 0.0 K/mm3 (0.0-0.4) 01/19/21 05:11 Basophils # (Manual) 0.0 K/mm3 (0.0-0.1) 01/19/21 05:11 Metamyelocytes # 0.0 K/mm3 01/19/21 05:11 Myelocytes # 0.0 K/mm3 01/19/21 05:11 Promyelocytes # 0.0 K/mm3 01/19/21 05:11 Blast Cells # 0.0 K/mm3 01/19/21 05:11 WBC Morphology Not Reportable 01/19/21 05:11 Hypersegmented Neuts Not Reportable 01/19/21 05:11 Hyposegmented Neuts Not Reportable 01/19/21 05:11 Hypogranular Neuts Not Reportable 01/19/21 05:11 Smudge Cells Not Reportable 01/19/21 05:11 Toxic Granulation Not Reportable 01/19/21 05:11 Toxic Vacuolation Not Reportable 01/19/21 05:11 Dohle Bodies Not Reportable 01/19/21 05:11 Pelger-Huet Anomaly Not Reportable 01/19/21 05:11 Inder Rods Not Reportable 01/19/21 05:11 Platelet Estimate Consistent w auto 01/19/21 05:11 Clumped Platelets Not Reportable 01/19/21 05:11 Plt Clumps, EDTA Not Reportable 01/19/21 05:11 Large Platelets Not Reportable 01/19/21 05:11 Giant Platelets Not Reportable 01/19/21 05:11 Platelet Satelliting Not Reportable 01/19/21 05:11 Plt Morphology Comment Not Reportable 01/19/21 05:11 RBC Morphology Not Reportable 01/19/21 05:11 Dimorphic RBCs Not Reportable 01/19/21 05:11 Polychromasia Not Reportable 01/19/21 05:11 Hypochromasia 1+ 01/19/21 05:11 Poikilocytosis Not Reportable 01/19/21 05:11 Anisocytosis Not Reportable 01/19/21 05:11 Microcytosis Not Reportable 01/19/21 05:11 Macrocytosis Not Reportable 01/19/21 05:11 Spherocytes Not Reportable 01/19/21 05:11 Pappenheimer Bodies Not Reportable 01/19/21 05:11 Sickle Cells Not Reportable 01/19/21 05:11 Target Cells Not Reportable 01/19/21 05:11 Tear Drop Cells Not Reportable 01/19/21 05:11 Ovalocytes Not Reportable 01/19/21 05:11 Helmet Cells Not Reportable 01/19/21 05:11 Navarro-Lisco Bodies Not Reportable 01/19/21 05:11 [place] Rings Not Reportable 01/19/21 05:11 Giorgio Cells Not Reportable 01/19/21 05:11 Bite Cells Not Reportable 01/19/21 05:11 Crenated Cell Not Reportable 01/19/21 05:11 Elliptocytes Not Reportable 01/19/21 05:11 Acanthocytes (Spur) Not Reportable 01/19/21 05:11 Rouleaux Not Reportable 01/19/21 05:11 Hemoglobin C Crystals Not Reportable 01/19/21 05:11 Schistocytes Not Reportable 01/19/21 05:11 Malaria parasites Not Reportable 01/19/21 05:11 Chai Bodies Not Reportable 01/19/21 05:11 Hem Pathologist Commnt No 01/19/21 05:11 D-Dimer 1884.49 ng/mlDDU (0-234) H 01/28/21 08:46 ABG pH 7.461 pH Units (7.350-7.450) H 01/18/21 17:18 ABG pCO2 36.6 mm Hg 01/18/21 17:18 ABG pO2 53.1 mm Hg (80.0-90.0) L 01/18/21 17:18 ABG HCO3 25.5 mmol/L (20.0-26.0) 01/18/21 17:18 ABG O2 Saturation 89.4 % (95.0-99.0) L 01/18/21 17:18 ABG O2 Content 15.1 (0.0-44) 01/18/21 17:18 ABG Base Excess 1.9 mmol/L (-2.0-3.0) 01/18/21 17:18 ABG Hemoglobin 12.2 gm/dl (12.0-16.0) 01/18/21 17:18 ABG Carboxyhemoglobin 1.2 % (0.0-5.0) 01/18/21 17:18 ABG Methemoglobin 0.5 % (0.0-1.5) 01/18/21 17:18 Oxyhemoglobin 88.0 % (95.0-99.0) L 01/18/21 17:18 FiO2 100 % 01/18/21 17:18 Sodium 141 mmol/L (137-145) 02/02/21 07:56 Potassium 3.7 mmol/L (3.6-5.0) 02/02/21 07:56 Chloride 102.9 mmol/L (98-107) 02/02/21 07:56 Carbon Dioxide 31 mmol/L (22-30) H 02/02/21 07:56 Anion Gap 11 mmol/L 02/02/21 07:56 BUN 17 mg/dL (7-17) 02/02/21 07:56 Creatinine 0.4 mg/dL (0.6-1.2) L 02/02/21 07:56 Estimated GFR > 60 ml/min 02/02/21 07:56 BUN/Creatinine Ratio 43 % 02/02/21 07:56 Glucose 159 mg/dL (65-100) H 02/02/21 07:56 POC Glucose 257 mg/dL (70-105) H 02/02/21 22:33 Lactic Acid 1.70 mmol/L (0.7-2.0) 01/17/21 16:41 Calcium 8.2 mg/dL (8.4-10.2) L 02/02/21 07:56 Ferritin 797.7 ng/mL (10.0-200.0) H 01/28/21 08:46 Total Bilirubin 0.30 mg/dL (0.1-1.2) 01/21/21 11:29 AST 34 units/L (5-40) 01/21/21 11:29 ALT 38 units/L (7-56) 01/21/21 11:29 Alkaline Phosphatase 117 units/L (35-129) 01/21/21 11:29 Lactate Dehydrogenase 556 units/L (91-180) H 01/28/21 08:46 Troponin T < 0.010 ng/mL (0.00-0.029) 01/17/21 16:41 C-Reactive Protein 0.20 mg/dL (0.00-1.30) 01/28/21 08:46 NT-Pro-B Natriuret Pep 40.88 pg/mL (0-900) 01/17/21 16:41 Total Protein 7.3 g/dL (6.3-8.2) 01/21/21 11:29 Albumin 3.4 g/dL (3.9-5) L 01/21/21 11:29 Albumin/Globulin Ratio 0.9 % 01/21/21 11:29 Procalcitonin 0.39 ng/mL (<0.15) 01/17/21 17:46 Coronavirus (PCR) Positive (Negative) A 01/17/21 09:25 Estrada/IV: Voiding Method External Female Catheter Active Medications - Current Medications Current Medications: Generic Name Dose Route Start Last Admin Trade Name Freq PRN Reason Stop Dose Admin Acetaminophen 650 mg 01/18/21 00:36 01/22/21 23:46 Acetaminophen 325 Mg Tab PO 650 mg Q4H PRN Administration Pain MILD(1-3)/Fever >100.5/PAN Albuterol/Ipratropium 1 ampul 02/01/21 14:00 02/03/21 07:59 Ipratropium/Albuterol Sulfate 3 Ml Ampul.Neb IH 1 ampul TIDRT PJ Administration Aripiprazole 15 mg 01/31/21 13:00 02/03/21 09:13 Aripiprazole 15 Mg Tab PO 15 mg QDAY PJ Administration Divalproex Sodium 500 mg 01/31/21 12:00 02/03/21 09:13 Divalproex Er 500 Mg Tab PO 500 mg QDAY PJ Administration Enoxaparin Sodium 100 mg 01/21/21 10:00 02/03/21 09:13 Enoxaparin 100 Mg/1 Ml Inj 1 mg/kg (100 mg) 100 mg SUB-Q Administration Q12HR PJ Protocol Famotidine 20 mg 01/18/21 10:00 02/03/21 09:13 Famotidine 20 Mg Tab PO 20 mg BID PJ Administration Hydralazine HCl 10 mg 01/18/21 00:38 01/24/21 23:12 Hydralazine 20 Mg/1 Ml Inj IV 10 mg Q6H PRN Administration htn Hydromorphone HCl 0.5 mg 01/20/21 11:00 Hydromorphone 1 Mg/1 Ml Inj IV Q6H PRN Pain , Severe (7-10) Hydrophilic Ointment 1 applic 02/03/21 11:24 Petrolatum,White 30 Gm Oint TP PRN PRN Skin Irritation Insulin Glargine 20 units 01/20/21 22:00 02/02/21 22:49 Insulin Glargine 100 Units/Ml SUB-Q 20 units QHS PJ Administration Insulin Human Lispro 0 unit 02/01/21 11:30 02/03/21 09:13 Insulin Lispro 100 Unit/Ml SUB-Q Not Given ACHS [facility] Protocol Metoprolol Tartrate 12.5 mg 02/01/21 12:00 02/03/21 09:13 Metoprolol Tartrate 25 Mg Tab PO 12.5 mg BID PJ Administration Mirtazapine 7.5 mg 01/21/21 22:00 02/02/21 22:45 Mirtazapine 15 Mg Tab PO 7.5 mg QHS PJ Administration Ondansetron HCl 4 mg 01/18/21 00:36 Ondansetron 4 Mg/2 Ml Inj IV Q8H PRN Nausea And Vomiting Oxymetazoline HCl 2 spray 02/03/21 11:24 Oxymetazoline 0.05% Nasal Roxana NS Q12H PRN Congestion Paliperidone 6 mg 01/31/21 13:00 02/03/21 09:13 Paliperidone Er 3 Mg Tab PO 6 mg QDAY PJ Administration Sodium Chloride 10 ml 01/18/21 10:00 02/03/21 09:14 Sodium Chloride 0.9% 10 Ml Flush Syringe IV 10 ml BID PJ Administration Sodium Chloride 10 ml 01/18/21 00:36 Sodium Chloride 0.9% 10 Ml Flush Syringe IV PRN PRN LINE FLUSH Nutrition/Malnutrition Assess - Dietary Evaluation Nutrition/Malnutrition Findings: Nutrition Notes Start: 01/24/21 10:40 Freq: Status: Active Protocol: Document 01/31/21 13:02 JUAN ALBERTO (Rec: 01/31/21 13:06 JUAN ALBERTO [id number]) Nutrition Notes Initial or Follow up Reassessment Current Diagnosis Respiratory Failure Other Pertinent Diagnosis pneu, COVID-19(+), AMS Current Diet Cardiac diet with Consistent CHO modifications Labs/Tests Reviewed Pertinent Medications Reviewed Height 5 ft 4 in Weight 91.3 kg [place] Body Weight (kg) 54.54 BMI 34.5 Weight change and time frame Wt fluctuations Weight Status Obese Subjective/Other Information FU for intakes. Pt did not answer phone. Per chart, pt ate 50% of meals yesterday. Percent of energy/protein needs met: 72%/73% (excluding ONS) Burn Absent Trauma Absent Current % PO Fair (50-74%) Minimum of two criteria No Energy Intake (non-severe) <75% Estimated Energy Requirement >7 days #1 Nutrition Diagnosis Inadequate oral intake As Evidenced by Signs and Symptoms pt consuming 50% of meals Diagnosis Progress(for reassessment Worsened documentation) Is patient on ventilator? No Is Patient Ambulatory and/or Out of Bed No REE-([facility]-confined to bed) 1789.884 Kcal/Kg value to use for calculation 15 Approximate Energy Requirements Using 1370 kcal/Kg Calculation Used for Recommendations Kcal/kg Additional Notes PRO needs: 59-74 g(0.8-1 g/kg AdBW 74 kg) Fluid needs: 1mL/kcal Nutrition Intervention Change Diet Order: Continue Cardiac with Consistent CHO modifications Add Supplement/Snack (indicate name/kcal Glucerna BID /protein ) Provides kCal: 440 Provides Protein (gm) 20 Goal #1 Meet at least 75% of energy and protein needs via PO and ONS intakes Anticipated Discharge Needs: Cardiac/Consistent CHO Follow-Up By: 02/04/21 Additional Comments F/U for stable intakes and ONS tolerance
[2021-02-03] MEDS ORDERED: FUROSEMIDE 40 MG/4 ML INJ IV NR (11:40)
[2021-02-03] MEDS ORDERED: OXYMETAZOLINE 0.05% NASAL SPRAY NS PRN (12:00)
[2021-02-03] MEDS ORDERED: PETROLATUM,WHITE 30 GM OINT TP PRN (12:00)
--- NOTE | 2021-02-03 16:51 | Progress Note ---
Assessment and Plan Imp: 1. Covid-19 w/ viral pneumonia 2. ARDS 3. Acute resp. failure, hypoxia 4. Hypernatremia 5. Obesity Rec: 1. S/p Decadaron IV 2. S/p Remdesivir x 5 days 3. Agree with therapeutic Lovenox 4. Unable to prone due to lack of cooperation 5. Monitor inflammatory markers 6. Wean HFNC to keep sats 88% or > 7. Complex decision-making Plan of care reviewed w/ patient, she understands/agrees Subjective Date of service: 02/03/21 Principal diagnosis: Covid-19 Interval history: No events. Awake, alert. On HFNC at 50% FiO2 and 35LPM. SOB better. Muttered something about Covid-19 being a conspiracy when I told her she had Covid-19 pneumonia. Active Medications Acetaminophen (Acetaminophen 325 Mg Tab) 650 mg PO Q4H PRN PRN Reason: Pain MILD(1-3)/Fever >100.5/PAN Last Admin: 01/22/21 23:46 Dose: 650 mg Documented by: Albuterol/Ipratropium (Ipratropium/Albuterol Sulfate 3 Ml Ampul.Neb) 1 ampul IH TIDRT [facility] Last Admin: 02/03/21 20:34 Dose: 1 ampul Documented by: Aripiprazole (Aripiprazole 15 Mg Tab) 15 mg PO QDAY [facility] Last Admin: 02/03/21 09:13 Dose: 15 mg Documented by: Divalproex Sodium (Divalproex Er 500 Mg Tab) 500 mg PO QDAY [facility] Last Admin: 02/03/21 09:13 Dose: 500 mg Documented by: Enoxaparin Sodium (Enoxaparin 100 Mg/1 Ml Inj) 100 mg 1 mg/kg (100 mg) SUB-Q Q12HR [facility]; Protocol Last Admin: 02/03/21 09:13 Dose: 100 mg Documented by: Famotidine (Famotidine 20 Mg Tab) 20 mg PO BID [facility] Last Admin: 02/03/21 09:13 Dose: 20 mg Documented by: Hydralazine HCl (Hydralazine 20 Mg/1 Ml Inj) 10 mg IV Q6H PRN PRN Reason: htn Last Admin: 01/24/21 23:12 Dose: 10 mg Documented by: Hydromorphone HCl (Hydromorphone 1 Mg/1 Ml Inj) 0.5 mg IV Q6H PRN PRN Reason: Pain , Severe (7-10) Hydrophilic Ointment (Petrolatum,White 30 Gm Oint) 1 applic TP PRN PRN PRN Reason: Skin Irritation Insulin Glargine (Insulin Glargine 100 Units/Ml) 20 units SUB-Q QHS [facility] Last Admin: 02/02/21 22:49 Dose: 20 units Documented by: Insulin Human Lispro (Insulin Lispro 100 Unit/Ml) 0 unit SUB-Q ACHS [facility]; Protocol Last Admin: 02/03/21 17:06 Dose: 4 unit Documented by: Metoprolol Tartrate (Metoprolol Tartrate 25 Mg Tab) 12.5 mg PO BID [facility] Last Admin: 02/03/21 09:13 Dose: 12.5 mg Documented by: Mirtazapine (Mirtazapine 15 Mg Tab) 7.5 mg PO QHS [facility] Last Admin: 02/02/21 22:45 Dose: 7.5 mg Documented by: Ondansetron HCl (Ondansetron 4 Mg/2 Ml Inj) 4 mg IV Q8H PRN PRN Reason: Nausea And Vomiting Oxymetazoline HCl (Oxymetazoline 0.05% Nasal [place]) 2 spray NS Q12H PRN PRN Reason: Congestion Last Admin: 02/03/21 13:17 Dose: 2 spray Documented by: Paliperidone (Paliperidone Er 3 Mg Tab) 6 mg PO QDAY [facility] Last Admin: 02/03/21 09:13 Dose: 6 mg Documented by: Sodium Chloride (Sodium Chloride 0.9% 10 Ml Flush Syringe) 10 ml IV BID [facility] Last Admin: 02/03/21 09:14 Dose: 10 ml Documented by: Sodium Chloride (Sodium Chloride 0.9% 10 Ml Flush Syringe) 10 ml IV PRN PRN PRN Reason: LINE FLUSH Objective Vital Signs - 12hr 02/03/21 02/03/21 02/03/21 05:50 08:00 10:00 Temperature 99.1 F Pulse Rate 118 H Pulse Rate [ 115 H Anterior Bilateral Throughout] Pulse Rate [ 130 H From Monitor] Respiratory 20 Rate Respiratory 21 Rate [Anterior Bilateral Throughout] Blood Pressure 135/75 Blood Pressure [Left] O2 Sat by Pulse 87 93 Oximetry 02/03/21 02/03/21 02/03/21 12:49 12:50 13:47 Temperature 98.9 F 98.9 F Pulse Rate 124 H 118 H Pulse Rate [ 127 H Anterior Bilateral Throughout] Pulse Rate [ From Monitor] Respiratory 18 Rate Respiratory 18 Rate [Anterior Bilateral Throughout] Blood Pressure Blood Pressure 127/77 [Left] O2 Sat by Pulse 93 Oximetry 02/03/21 13:48 Temperature Pulse Rate Pulse Rate [ Anterior Bilateral Throughout] Pulse Rate [ From Monitor] Respiratory Rate Respiratory Rate [Anterior Bilateral Throughout] Blood Pressure Blood Pressure [Left] O2 Sat by Pulse 90 Oximetry Constitutional: no acute distress, alert Eyes: non-icteric ENT: oropharynx moist Neck: supple, other (large in circumference) Effort: normal Ascultation: Bilateral: clear Cardiovascular: other (tachy, RR; no mrg) Gastrointestinal: normoactive bowel sounds, soft, non-tender, non-distended Integumentary: normal Extremities: no cyanosis, no edema, pink and warm Neurologic: normal mental status, non-focal exam, pupils equal and round Psychiatric: mood appropriate, affect normal CBC and BMP: 02/02/21 07:56 02/02/21 07:56 ABG, PT/INR, D-dimer: ABG ABG pH 7.461 pH Units (7.350-7.450) H 01/18/21 17:18 ABG pCO2 36.6 mm Hg 01/18/21 17:18 ABG pO2 53.1 mm Hg (80.0-90.0) L 01/18/21 17:18 ABG O2 Saturation 89.4 % (95.0-99.0) L 01/18/21 17:18 PT/INR, D-dimer D-Dimer 1884.49 ng/mlDDU (0-234) H 01/28/21 08:46 Abnormal lab findings: Abnormal Labs 01/17/21 01/17/21 01/17/21 09:25 16:41 16:41 WBC RBC 5.23 H MCV 76 L MCH 24 L RDW Lymph % (Auto) 9.4 L [place] % (Auto) Lymph # (Auto) 0.8 L Seg Neutrophils % 85.4 H Seg Neuts % (Manual) Lymphocytes % (Manual) Seg Neutrophils # Seg Neutrophils # Man D-Dimer ABG pH ABG pO2 ABG O2 Saturation Oxyhemoglobin Sodium 128 L Chloride 90.8 L Carbon Dioxide BUN Creatinine Glucose 372 H POC Glucose Calcium Ferritin AST 98 H Lactate Dehydrogenase C-Reactive Protein Total Protein Albumin 3.2 L Coronavirus (PCR) Positive A 01/17/21 01/17/21 01/17/21 17:46 17:46 17:46 WBC RBC MCV MCH RDW Lymph % (Auto) [place] % (Auto) Lymph # (Auto) Seg Neutrophils % Seg Neuts % (Manual) Lymphocytes % (Manual) Seg Neutrophils # Seg Neutrophils # Man D-Dimer 1058.54 H ABG pH ABG pO2 ABG O2 Saturation Oxyhemoglobin Sodium Chloride Carbon Dioxide BUN Creatinine Glucose 369 H POC Glucose Calcium Ferritin 668.4 H AST Lactate Dehydrogenase 519 H C-Reactive Protein 19.20 H Total Protein Albumin Coronavirus (PCR) 01/18/21 01/18/21 01/19/21 09:01 17:18 05:11 WBC 14.2 H RBC MCV 74 L MCH 23 L RDW Lymph % (Auto) [place] % (Auto) Lymph # (Auto) Seg Neutrophils % Seg Neuts % (Manual) 88.0 H Lymphocytes % (Manual) 10.0 L Seg Neutrophils # Seg Neutrophils # Man 12.5 H D-Dimer ABG pH 7.461 H ABG pO2 53.1 L ABG O2 Saturation 89.4 L Oxyhemoglobin 88.0 L Sodium 132 L Chloride 93.6 L Carbon Dioxide BUN 18 H Creatinine Glucose 367 H POC Glucose Calcium 7.8 L Ferritin AST Lactate Dehydrogenase C-Reactive Protein Total Protein Albumin Coronavirus (PCR) 01/19/21 01/19/21 01/19/21 05:11 11:06 14:43 WBC RBC MCV MCH RDW Lymph % (Auto) [place] % (Auto) Lymph # (Auto) Seg Neutrophils % Seg Neuts % (Manual) Lymphocytes % (Manual) Seg Neutrophils # Seg Neutrophils # Man D-Dimer ABG pH ABG pO2 ABG O2 Saturation Oxyhemoglobin Sodium Chloride Carbon Dioxide BUN 18 H Creatinine Glucose 304 H 379 H POC Glucose 382 H Calcium 8.3 L Ferritin AST 92 H 96 H Lactate Dehydrogenase C-Reactive Protein Total Protein Albumin 3.0 L 3.0 L Coronavirus (PCR) 01/19/21 01/19/21 01/20/21 16:18 22:18 07:31 WBC RBC MCV MCH RDW Lymph % (Auto) [place] % (Auto) Lymph # (Auto) Seg Neutrophils % Seg Neuts % (Manual) Lymphocytes % (Manual) Seg Neutrophils # Seg Neutrophils # Man D-Dimer ABG pH ABG pO2 ABG O2 Saturation Oxyhemoglobin Sodium Chloride Carbon Dioxide BUN Creatinine Glucose POC Glucose 374 H 341 H 344 H Calcium Ferritin AST Lactate Dehydrogenase C-Reactive Protein Total Protein Albumin Coronavirus (PCR) 01/20/21 01/20/21 01/20/21 07:33 12:14 13:54 WBC RBC MCV MCH RDW Lymph % (Auto) [place] % (Auto) Lymph # (Auto) Seg Neutrophils % Seg Neuts % (Manual) Lymphocytes % (Manual) Seg Neutrophils # Seg Neutrophils # Man D-Dimer ABG pH ABG pO2 ABG O2 Saturation Oxyhemoglobin Sodium Chloride Carbon Dioxide BUN 32 H 31 H Creatinine Glucose 343 H 396 H POC Glucose 365 H Calcium Ferritin AST 57 H 54 H Lactate Dehydrogenase C-Reactive Protein Total Protein 8.3 H Albumin 2.7 L 3.1 L Coronavirus (PCR) 01/20/21 01/20/21 01/21/21 18:28 21:25 04:45 WBC RBC MCV MCH RDW Lymph % (Auto) [place] % (Auto) Lymph # (Auto) Seg Neutrophils % Seg Neuts % (Manual) Lymphocytes % (Manual) Seg Neutrophils # Seg Neutrophils # Man D-Dimer ABG pH ABG pO2 ABG O2 Saturation Oxyhemoglobin Sodium Chloride Carbon Dioxide 31 H BUN 41 H Creatinine Glucose 377 H POC Glucose 403 H 340 H Calcium Ferritin AST Lactate Dehydrogenase C-Reactive Protein Total Protein 8.3 H Albumin 3.0 L Coronavirus (PCR) 01/21/21 01/21/21 01/21/21 04:45 04:45 04:45 WBC RBC MCV MCH RDW Lymph % (Auto) [place] % (Auto) Lymph # (Auto) Seg Neutrophils % Seg Neuts % (Manual) Lymphocytes % (Manual) Seg Neutrophils # Seg Neutrophils # Man D-Dimer > 85025 H ABG pH ABG pO2 ABG O2 Saturation Oxyhemoglobin Sodium Chloride Carbon Dioxide BUN Creatinine Glucose POC Glucose Calcium Ferritin 1688.0 H AST Lactate Dehydrogenase 649 H C-Reactive Protein 17.00 H Total Protein Albumin Coronavirus (PCR) 01/21/21 01/21/21 01/21/21 09:45 11:29 12:09 WBC RBC MCV MCH RDW Lymph % (Auto) [place] % (Auto) Lymph # (Auto) Seg Neutrophils % Seg Neuts % (Manual) Lymphocytes % (Manual) Seg Neutrophils # Seg Neutrophils # Man D-Dimer ABG pH ABG pO2 ABG O2 Saturation Oxyhemoglobin Sodium 151 H Chloride Carbon Dioxide BUN 40 H Creatinine Glucose 412 H POC Glucose 401 H 372 H Calcium Ferritin AST Lactate Dehydrogenase C-Reactive Protein Total Protein Albumin 3.4 L Coronavirus (PCR) 01/21/21 01/21/21 01/22/21 18:26 21:09 02:00 WBC RBC MCV MCH RDW Lymph % (Auto) [place] % (Auto) Lymph # (Auto) Seg Neutrophils % Seg Neuts % (Manual) Lymphocytes % (Manual) Seg Neutrophils # Seg Neutrophils # Man D-Dimer ABG pH ABG pO2 ABG O2 Saturation Oxyhemoglobin Sodium Chloride Carbon Dioxide BUN Creatinine Glucose POC Glucose 376 H 322 H 231 H Calcium Ferritin AST Lactate Dehydrogenase C-Reactive Protein Total Protein Albumin Coronavirus (PCR) 01/22/21 01/22/21 01/22/21 05:24 08:25 08:25 WBC RBC 5.44 H MCV 75 L MCH 23 L RDW 15.5 H Lymph % (Auto) [place] % (Auto) Lymph # (Auto) Seg Neutrophils % Seg Neuts % (Manual) Lymphocytes % (Manual) Seg Neutrophils # Seg Neutrophils # Man D-Dimer ABG pH ABG pO2 ABG O2 Saturation Oxyhemoglobin Sodium 155 H Chloride 112.4 H Carbon Dioxide BUN 33 H Creatinine Glucose 274 H POC Glucose 275 H Calcium Ferritin AST Lactate Dehydrogenase C-Reactive Protein Total Protein Albumin Coronavirus (PCR) 01/22/21 01/22/21 01/22/21 11:53 16:03 21:41 WBC RBC MCV MCH RDW Lymph % (Auto) [place] % (Auto) Lymph # (Auto) Seg Neutrophils % Seg Neuts % (Manual) Lymphocytes % (Manual) Seg Neutrophils # Seg Neutrophils # Man D-Dimer ABG pH ABG pO2 ABG O2 Saturation Oxyhemoglobin Sodium Chloride Carbon Dioxide BUN Creatinine Glucose POC Glucose 265 H 293 H 279 H Calcium Ferritin AST Lactate Dehydrogenase C-Reactive Protein Total Protein Albumin Coronavirus (PCR) 01/23/21 01/23/21 01/23/21 02:03 05:46 05:59 WBC RBC MCV MCH RDW Lymph % (Auto) [place] % (Auto) Lymph # (Auto) Seg Neutrophils % Seg Neuts % (Manual) Lymphocytes % (Manual) Seg Neutrophils # Seg Neutrophils # Man D-Dimer ABG pH ABG pO2 ABG O2 Saturation Oxyhemoglobin Sodium Chloride Carbon Dioxide BUN Creatinine Glucose POC Glucose 268 H 303 H Calcium Ferritin 1116.0 H AST Lactate Dehydrogenase C-Reactive Protein Total Protein Albumin Coronavirus (PCR) 01/23/21 01/23/21 01/23/21 05:59 07:42 09:11 WBC RBC MCV MCH RDW Lymph % (Auto) [place] % (Auto) Lymph # (Auto) Seg Neutrophils % Seg Neuts % (Manual) Lymphocytes % (Manual) Seg Neutrophils # Seg Neutrophils # Man D-Dimer ABG pH ABG pO2 ABG O2 Saturation Oxyhemoglobin Sodium Chloride Carbon Dioxide BUN Creatinine Glucose POC Glucose 291 H 285 H Calcium Ferritin AST Lactate Dehydrogenase 680 H C-Reactive Protein 5.80 H Total Protein Albumin Coronavirus (PCR) 01/23/21 01/23/21 01/23/21 14:06 17:05 17:59 WBC RBC MCV MCH RDW Lymph % (Auto) [place] % (Auto) Lymph # (Auto) Seg Neutrophils % Seg Neuts % (Manual) Lymphocytes % (Manual) Seg Neutrophils # Seg Neutrophils # Man D-Dimer ABG pH ABG pO2 ABG O2 Saturation Oxyhemoglobin Sodium Chloride Carbon Dioxide BUN Creatinine Glucose POC Glucose 228 H 300 H 278 H Calcium Ferritin AST Lactate Dehydrogenase C-Reactive Protein Total Protein Albumin Coronavirus (PCR) 01/23/21 01/24/21 01/24/21 21:43 02:14 05:15 WBC RBC MCV MCH RDW Lymph % (Auto) [place] % (Auto) Lymph # (Auto) Seg Neutrophils % Seg Neuts % (Manual) Lymphocytes % (Manual) Seg Neutrophils # Seg Neutrophils # Man D-Dimer ABG pH ABG pO2 ABG O2 Saturation Oxyhemoglobin Sodium Chloride Carbon Dioxide BUN Creatinine Glucose POC Glucose 223 H 427 H 392 H Calcium Ferritin AST Lactate Dehydrogenase C-Reactive Protein Total Protein Albumin Coronavirus (PCR) 01/24/21 01/24/21 01/24/21 07:03 07:03 09:10 WBC RBC 5.49 H MCV 75 L MCH 23 L RDW Lymph % (Auto) 7.0 L [place] % (Auto) Lymph # (Auto) 0.5 L Seg Neutrophils % 86.1 H Seg Neuts % (Manual) Lymphocytes % (Manual) Seg Neutrophils # Seg Neutrophils # Man D-Dimer ABG pH ABG pO2 ABG O2 Saturation Oxyhemoglobin Sodium 149 H Chloride 111.4 H Carbon Dioxide BUN 24 H Creatinine Glucose 339 H POC Glucose 284 H Calcium Ferritin AST Lactate Dehydrogenase C-Reactive Protein Total Protein Albumin Coronavirus (PCR) 01/24/21 01/24/21 01/24/21 13:47 18:30 21:58 WBC RBC MCV MCH RDW Lymph % (Auto) [place] % (Auto) Lymph # (Auto) Seg Neutrophils % Seg Neuts % (Manual) Lymphocytes % (Manual) Seg Neutrophils # Seg Neutrophils # Man D-Dimer ABG pH ABG pO2 ABG O2 Saturation Oxyhemoglobin Sodium Chloride Carbon Dioxide BUN Creatinine Glucose POC Glucose 317 H 180 H 262 H Calcium Ferritin AST Lactate Dehydrogenase C-Reactive Protein Total Protein Albumin Coronavirus (PCR) 01/25/21 01/25/21 01/25/21 01:22 05:35 08:36 WBC RBC MCV MCH RDW Lymph % (Auto) [place] % (Auto) Lymph # (Auto) Seg Neutrophils % Seg Neuts % (Manual) Lymphocytes % (Manual) Seg Neutrophils # Seg Neutrophils # Man D-Dimer ABG pH ABG pO2 ABG O2 Saturation Oxyhemoglobin Sodium Chloride Carbon Dioxide BUN Creatinine Glucose POC Glucose 280 H 243 H 216 H Calcium Ferritin AST Lactate Dehydrogenase C-Reactive Protein Total Protein Albumin Coronavirus (PCR) 01/25/21 01/25/21 01/25/21 15:14 15:14 15:14 WBC RBC MCV MCH RDW Lymph % (Auto) [place] % (Auto) Lymph # (Auto) Seg Neutrophils % Seg Neuts % (Manual) Lymphocytes % (Manual) Seg Neutrophils # Seg Neutrophils # Man D-Dimer 6312.54 H ABG pH ABG pO2 ABG O2 Saturation Oxyhemoglobin Sodium 146 H Chloride 108.1 H Carbon Dioxide BUN 19 H Creatinine Glucose 287 H POC Glucose Calcium 8.3 L Ferritin 869.5 H AST Lactate Dehydrogenase 685 H C-Reactive Protein Total Protein Albumin Coronavirus (PCR) 01/25/21 01/25/21 01/26/21 16:06 21:18 01:47 WBC RBC MCV MCH RDW Lymph % (Auto) [place] % (Auto) Lymph # (Auto) Seg Neutrophils % Seg Neuts % (Manual) Lymphocytes % (Manual) Seg Neutrophils # Seg Neutrophils # Man D-Dimer ABG pH ABG pO2 ABG O2 Saturation Oxyhemoglobin Sodium Chloride Carbon Dioxide BUN Creatinine Glucose POC Glucose 267 H 197 H 255 H Calcium Ferritin AST Lactate Dehydrogenase C-Reactive Protein Total Protein Albumin Coronavirus (PCR) 01/26/21 01/26/21 01/26/21 05:23 05:23 05:23 WBC RBC MCV MCH RDW Lymph % (Auto) [place] % (Auto) Lymph # (Auto) Seg Neutrophils % Seg Neuts % (Manual) Lymphocytes % (Manual) Seg Neutrophils # Seg Neutrophils # Man D-Dimer 5809.58 H ABG pH ABG pO2 ABG O2 Saturation Oxyhemoglobin Sodium 149 H Chloride 109.3 H Carbon Dioxide BUN 24 H Creatinine Glucose 362 H POC Glucose Calcium Ferritin 877.1 H AST Lactate Dehydrogenase 655 H C-Reactive Protein Total Protein Albumin Coronavirus (PCR) 01/26/21 01/26/21 01/26/21 05:23 06:06 09:28 WBC RBC 5.49 H MCV 77 L MCH 23 L RDW Lymph % (Auto) [place] % (Auto) Lymph # (Auto) 0.8 L Seg Neutrophils % 78.9 H Seg Neuts % (Manual) Lymphocytes % (Manual) Seg Neutrophils # Seg Neutrophils # Man D-Dimer ABG pH ABG pO2 ABG O2 Saturation Oxyhemoglobin Sodium Chloride Carbon Dioxide BUN Creatinine Glucose POC Glucose 387 H 308 H Calcium Ferritin AST Lactate Dehydrogenase C-Reactive Protein Total Protein Albumin Coronavirus (PCR) 01/26/21 01/26/21 01/27/21 15:56 21:28 02:51 WBC RBC MCV MCH RDW Lymph % (Auto) [place] % (Auto) Lymph # (Auto) Seg Neutrophils % Seg Neuts % (Manual) Lymphocytes % (Manual) Seg Neutrophils # Seg Neutrophils # Man D-Dimer ABG pH ABG pO2 ABG O2 Saturation Oxyhemoglobin Sodium Chloride Carbon Dioxide BUN Creatinine Glucose POC Glucose 172 H 316 H 267 H Calcium Ferritin AST Lactate Dehydrogenase C-Reactive Protein Total Protein Albumin Coronavirus (PCR) 01/27/21 01/27/21 01/27/21 04:22 04:22 04:22 WBC RBC MCV MCH RDW Lymph % (Auto) [place] % (Auto) Lymph # (Auto) Seg Neutrophils % Seg Neuts % (Manual) Lymphocytes % (Manual) Seg Neutrophils # Seg Neutrophils # Man D-Dimer 4046.06 H ABG pH ABG pO2 ABG O2 Saturation Oxyhemoglobin Sodium Chloride 107.7 H Carbon Dioxide BUN 30 H Creatinine Glucose 281 H POC Glucose Calcium Ferritin 812.2 H AST Lactate Dehydrogenase 570 H C-Reactive Protein Total Protein Albumin Coronavirus (PCR) 01/27/21 01/27/21 01/27/21 04:22 05:55 12:00 WBC RBC 5.15 H MCV 76 L MCH 23 L RDW 15.5 H Lymph % (Auto) 12.7 L [place] % (Auto) Lymph # (Auto) 0.9 L Seg Neutrophils % 81.3 H Seg Neuts % (Manual) Lymphocytes % (Manual) Seg Neutrophils # Seg Neutrophils # Man D-Dimer ABG pH ABG pO2 ABG O2 Saturation Oxyhemoglobin Sodium Chloride Carbon Dioxide BUN Creatinine Glucose POC Glucose 275 H 121 H Calcium Ferritin AST Lactate Dehydrogenase C-Reactive Protein Total Protein Albumin Coronavirus (PCR) 01/27/21 01/27/21 01/28/21 17:32 21:23 02:08 WBC RBC MCV MCH RDW Lymph % (Auto) [place] % (Auto) Lymph # (Auto) Seg Neutrophils % Seg Neuts % (Manual) Lymphocytes % (Manual) Seg Neutrophils # Seg Neutrophils # Man D-Dimer ABG pH ABG pO2 ABG O2 Saturation Oxyhemoglobin Sodium Chloride Carbon Dioxide BUN Creatinine Glucose POC Glucose 195 H 179 H 210 H Calcium Ferritin AST Lactate Dehydrogenase C-Reactive Protein Total Protein Albumin Coronavirus (PCR) 01/28/21 01/28/21 01/28/21 05:09 08:44 08:46 WBC RBC MCV MCH RDW Lymph % (Auto) [place] % (Auto) Lymph # (Auto) Seg Neutrophils % Seg Neuts % (Manual) Lymphocytes % (Manual) Seg Neutrophils # Seg Neutrophils # Man D-Dimer 1884.49 H ABG pH ABG pO2 ABG O2 Saturation Oxyhemoglobin Sodium Chloride Carbon Dioxide BUN Creatinine Glucose POC Glucose 202 H 191 H Calcium Ferritin AST Lactate Dehydrogenase C-Reactive Protein Total Protein Albumin Coronavirus (PCR) 01/28/21 01/28/21 01/28/21 08:46 08:46 12:18 WBC RBC MCV MCH RDW Lymph % (Auto) [place] % (Auto) Lymph # (Auto) Seg Neutrophils % Seg Neuts % (Manual) Lymphocytes % (Manual) Seg Neutrophils # Seg Neutrophils # Man D-Dimer ABG pH ABG pO2 ABG O2 Saturation Oxyhemoglobin Sodium Chloride Carbon Dioxide BUN Creatinine Glucose POC Glucose 221 H Calcium Ferritin 797.7 H AST Lactate Dehydrogenase 556 H C-Reactive Protein Total Protein Albumin Coronavirus (PCR) 01/28/21 01/28/21 01/29/21 18:21 21:45 01:48 WBC RBC MCV MCH RDW Lymph % (Auto) [place] % (Auto) Lymph # (Auto) Seg Neutrophils % Seg Neuts % (Manual) Lymphocytes % (Manual) Seg Neutrophils # Seg Neutrophils # Man D-Dimer ABG pH ABG pO2 ABG O2 Saturation Oxyhemoglobin Sodium Chloride Carbon Dioxide BUN Creatinine Glucose POC Glucose 214 H 148 H 248 H Calcium Ferritin AST Lactate Dehydrogenase C-Reactive Protein Total Protein Albumin Coronavirus (PCR) 01/29/21 01/29/21 01/29/21 05:17 10:17 11:39 WBC RBC MCV MCH RDW Lymph % (Auto) [place] % (Auto) Lymph # (Auto) Seg Neutrophils % Seg Neuts % (Manual) Lymphocytes % (Manual) Seg Neutrophils # Seg Neutrophils # Man D-Dimer ABG pH ABG pO2 ABG O2 Saturation Oxyhemoglobin Sodium Chloride Carbon Dioxide BUN Creatinine Glucose POC Glucose 256 H 193 H 177 H Calcium Ferritin AST Lactate Dehydrogenase C-Reactive Protein Total Protein Albumin Coronavirus (PCR) 01/29/21 01/29/21 01/30/21 18:06 20:24 06:07 WBC RBC MCV MCH RDW Lymph % (Auto) [place] % (Auto) Lymph # (Auto) Seg Neutrophils % Seg Neuts % (Manual) Lymphocytes % (Manual) Seg Neutrophils # Seg Neutrophils # Man D-Dimer ABG pH ABG pO2 ABG O2 Saturation Oxyhemoglobin Sodium Chloride Carbon Dioxide BUN Creatinine Glucose POC Glucose 107 H 114 H 114 H Calcium Ferritin AST Lactate Dehydrogenase C-Reactive Protein Total Protein Albumin Coronavirus (PCR) 01/30/21 01/30/21 01/30/21 12:08 16:11 21:19 WBC RBC MCV MCH RDW Lymph % (Auto) [place] % (Auto) Lymph # (Auto) Seg Neutrophils % Seg Neuts % (Manual) Lymphocytes % (Manual) Seg Neutrophils # Seg Neutrophils # Man D-Dimer ABG pH ABG pO2 ABG O2 Saturation Oxyhemoglobin Sodium Chloride Carbon Dioxide BUN Creatinine Glucose POC Glucose 178 H 142 H 244 H Calcium Ferritin AST Lactate Dehydrogenase C-Reactive Protein Total Protein Albumin Coronavirus (PCR) 01/31/21 01/31/21 01/31/21 05:30 06:42 07:50 WBC RBC MCV MCH RDW Lymph % (Auto) [place] % (Auto) Lymph # (Auto) Seg Neutrophils % Seg Neuts % (Manual) Lymphocytes % (Manual) Seg Neutrophils # Seg Neutrophils # Man D-Dimer ABG pH ABG pO2 ABG O2 Saturation Oxyhemoglobin Sodium Chloride Carbon Dioxide BUN 20 H Creatinine Glucose 160 H POC Glucose 164 H 152 H Calcium 8.0 L Ferritin AST Lactate Dehydrogenase C-Reactive Protein Total Protein Albumin Coronavirus (PCR) 01/31/21 01/31/21 01/31/21 11:40 16:37 21:01 WBC RBC MCV MCH RDW Lymph % (Auto) [place] % (Auto) Lymph # (Auto) Seg Neutrophils % Seg Neuts % (Manual) Lymphocytes % (Manual) Seg Neutrophils # Seg Neutrophils # Man D-Dimer ABG pH ABG pO2 ABG O2 Saturation Oxyhemoglobin Sodium Chloride Carbon Dioxide BUN Creatinine Glucose POC Glucose 129 H 141 H 125 H Calcium Ferritin AST Lactate Dehydrogenase C-Reactive Protein Total Protein Albumin Coronavirus (PCR) 02/01/21 02/01/21 02/01/21 06:26 11:15 16:11 WBC RBC MCV MCH RDW Lymph % (Auto) [place] % (Auto) Lymph # (Auto) Seg Neutrophils % Seg Neuts % (Manual) Lymphocytes % (Manual) Seg Neutrophils # Seg Neutrophils # Man D-Dimer ABG pH ABG pO2 ABG O2 Saturation Oxyhemoglobin Sodium Chloride Carbon Dioxide BUN Creatinine Glucose POC Glucose 136 H 260 H 240 H Calcium Ferritin AST Lactate Dehydrogenase C-Reactive Protein Total Protein Albumin Coronavirus (PCR) 02/01/21 02/02/21 02/02/21 22:32 07:15 07:56 WBC 3.1 L RBC MCV 75 L MCH 23 L RDW Lymph % (Auto) 44.9 H [place] % (Auto) 9.2 H Lymph # (Auto) Seg Neutrophils % Seg Neuts % (Manual) Lymphocytes % (Manual) Seg Neutrophils # 1.3 L Seg Neutrophils # Man D-Dimer ABG pH ABG pO2 ABG O2 Saturation Oxyhemoglobin Sodium Chloride Carbon Dioxide BUN Creatinine Glucose POC Glucose 298 H 164 H Calcium Ferritin AST Lactate Dehydrogenase C-Reactive Protein Total Protein Albumin Coronavirus (PCR) 02/02/21 02/02/21 02/02/21 07:56 11:35 16:07 WBC RBC MCV MCH RDW Lymph % (Auto) [place] % (Auto) Lymph # (Auto) Seg Neutrophils % Seg Neuts % (Manual) Lymphocytes % (Manual) Seg Neutrophils # Seg Neutrophils # Man D-Dimer ABG pH ABG pO2 ABG O2 Saturation Oxyhemoglobin Sodium Chloride Carbon Dioxide 31 H BUN Creatinine 0.4 L Glucose 159 H POC Glucose 297 H 252 H Calcium 8.2 L Ferritin AST Lactate Dehydrogenase C-Reactive Protein Total Protein Albumin Coronavirus (PCR) 02/02/21 22:33 WBC RBC MCV MCH RDW Lymph % (Auto) [place] % (Auto) Lymph # (Auto) Seg Neutrophils % Seg Neuts % (Manual) Lymphocytes % (Manual) Seg Neutrophils # Seg Neutrophils # Man D-Dimer ABG pH ABG pO2 ABG O2 Saturation Oxyhemoglobin Sodium Chloride Carbon Dioxide BUN Creatinine Glucose POC Glucose 257 H Calcium Ferritin AST Lactate Dehydrogenase C-Reactive Protein Total Protein Albumin Coronavirus (PCR) Chest x-ray: report reviewed, image reviewed
[2021-02-03] MEDS: MIRTAZAPINE 15 MG TAB PO SCH (22:44)
[2021-02-03] MEDS: INSULIN GLARGINE 100 UNITS/ML SUB-Q SCH (22:48)
[2021-02-04] MEDS ORDERED: ALPRAZolam 0.25 MG TAB PO ONE (00:23)
[2021-02-04 06:48] LABS: Blood Urea Nitrogen 19 mg/dL (7-17); Calcium 8.4 mg/dL (8.4-10.2); Hemolysis Index 5
[2021-02-04 06:52] LABS: BUN/Creatinine Ratio 38
[2021-02-04] MEDS: IPRATROPIUM/ALBUTEROL SULFATE 3 ML AMPUL.NEB IH SCH ×3 (08:00→19:47)
[2021-02-04] MEDS: INSULIN LISPRO 100 UNIT/ML SUB-Q SCH ×4 (08:32→22:57)
--- NOTE | 2021-02-04 09:02 | Progress Note ---
Assessment and Plan - Patient Problems (1) Acute respiratory failure due to COVID-19 Current Visit: Yes Status: Acute (2) Acute respiratory failure with hypoxia Current Visit: Yes Status: Acute (3) COVID-19 Current Visit: Yes Status: Acute (4) Hypoxia Current Visit: Yes Status: Acute (5) Pneumonia Current Visit: Yes Status: Acute (6) Respiratory failure Current Visit: Yes Status: Acute (7) Schizophrenia Current Visit: Yes Status: Acute Subjective Principal diagnosis: Covid-19 Interval history: on hiflo o2 at 70% 40l awake Objective Vital Signs - 12hr 02/03/21 02/04/21 02/04/21 22:27 00:17 03:10 Temperature 98.3 F Pulse Rate 121 H 133 H Pulse Rate [ Anterior Bilateral Throughout] Pulse Rate [ Posterior Bilateral Throughout] Respiratory 18 22 Rate Respiratory Rate [Anterior Bilateral Throughout] Respiratory Rate [Posterior Bilateral Throughout] Blood Pressure 144/77 113/63 O2 Sat by Pulse 93 94 100 Oximetry 02/04/21 02/04/21 02/04/21 04:32 05:30 08:00 Temperature 98.4 F Pulse Rate 109 H Pulse Rate [ 114 H Anterior Bilateral Throughout] Pulse Rate [ 116 H Posterior Bilateral Throughout] Respiratory 16 Rate Respiratory 20 Rate [Anterior Bilateral Throughout] Respiratory 20 Rate [Posterior Bilateral Throughout] Blood Pressure 106/66 O2 Sat by Pulse 96 95 93 Oximetry 02/04/21 08:54 Temperature Pulse Rate Pulse Rate [ Anterior Bilateral Throughout] Pulse Rate [ Posterior Bilateral Throughout] Respiratory Rate Respiratory Rate [Anterior Bilateral Throughout] Respiratory Rate [Posterior Bilateral Throughout] Blood Pressure O2 Sat by Pulse 91 Oximetry Constitutional: no acute distress, alert Eyes: non-icteric ENT: oropharynx moist Neck: supple, other (large in circumference) Effort: normal Ascultation: Bilateral: clear, diminished breath sounds Cardiovascular: other (tachy, RR; no mrg) Gastrointestinal: normoactive bowel sounds, soft, non-tender, non-distended Integumentary: normal Extremities: no cyanosis, no edema, pink and warm Neurologic: normal mental status, non-focal exam, pupils equal and round Psychiatric: mood appropriate, affect normal CBC and BMP: 02/02/21 07:56 02/04/21 05:41 ABG, PT/INR, D-dimer: ABG ABG pH 7.461 pH Units (7.350-7.450) H 01/18/21 17:18 ABG pCO2 36.6 mm Hg 01/18/21 17:18 ABG pO2 53.1 mm Hg (80.0-90.0) L 01/18/21 17:18 ABG O2 Saturation 89.4 % (95.0-99.0) L 01/18/21 17:18 PT/INR, D-dimer D-Dimer 1884.49 ng/mlDDU (0-234) H 01/28/21 08:46 Abnormal lab findings: Abnormal Labs 01/17/21 01/17/21 01/17/21 09:25 16:41 16:41 WBC RBC 5.23 H MCV 76 L MCH 24 L RDW Lymph % (Auto) 9.4 L [place] % (Auto) Lymph # (Auto) 0.8 L Seg Neutrophils % 85.4 H Seg Neuts % (Manual) Lymphocytes % (Manual) Seg Neutrophils # Seg Neutrophils # Man D-Dimer ABG pH ABG pO2 ABG O2 Saturation Oxyhemoglobin Sodium 128 L Chloride 90.8 L Carbon Dioxide BUN Creatinine Glucose 372 H POC Glucose Calcium Ferritin AST 98 H Lactate Dehydrogenase C-Reactive Protein Total Protein Albumin 3.2 L Coronavirus (PCR) Positive A 01/17/21 01/17/21 01/17/21 17:46 17:46 17:46 WBC RBC MCV MCH RDW Lymph % (Auto) [place] % (Auto) Lymph # (Auto) Seg Neutrophils % Seg Neuts % (Manual) Lymphocytes % (Manual) Seg Neutrophils # Seg Neutrophils # Man D-Dimer 1058.54 H ABG pH ABG pO2 ABG O2 Saturation Oxyhemoglobin Sodium Chloride Carbon Dioxide BUN Creatinine Glucose 369 H POC Glucose Calcium Ferritin 668.4 H AST Lactate Dehydrogenase 519 H C-Reactive Protein 19.20 H Total Protein Albumin Coronavirus (PCR) 01/18/21 01/18/21 01/19/21 09:01 17:18 05:11 WBC 14.2 H RBC MCV 74 L MCH 23 L RDW Lymph % (Auto) [place] % (Auto) Lymph # (Auto) Seg Neutrophils % Seg Neuts % (Manual) 88.0 H Lymphocytes % (Manual) 10.0 L Seg Neutrophils # Seg Neutrophils # Man 12.5 H D-Dimer ABG pH 7.461 H ABG pO2 53.1 L ABG O2 Saturation 89.4 L Oxyhemoglobin 88.0 L Sodium 132 L Chloride 93.6 L Carbon Dioxide BUN 18 H Creatinine Glucose 367 H POC Glucose Calcium 7.8 L Ferritin AST Lactate Dehydrogenase C-Reactive Protein Total Protein Albumin Coronavirus (PCR) 01/19/21 01/19/21 01/19/21 05:11 11:06 14:43 WBC RBC MCV MCH RDW Lymph % (Auto) [place] % (Auto) Lymph # (Auto) Seg Neutrophils % Seg Neuts % (Manual) Lymphocytes % (Manual) Seg Neutrophils # Seg Neutrophils # Man D-Dimer ABG pH ABG pO2 ABG O2 Saturation Oxyhemoglobin Sodium Chloride Carbon Dioxide BUN 18 H Creatinine Glucose 304 H 379 H POC Glucose 382 H Calcium 8.3 L Ferritin AST 92 H 96 H Lactate Dehydrogenase C-Reactive Protein Total Protein Albumin 3.0 L 3.0 L Coronavirus (PCR) 01/19/21 01/19/21 01/20/21 16:18 22:18 07:31 WBC RBC MCV MCH RDW Lymph % (Auto) [place] % (Auto) Lymph # (Auto) Seg Neutrophils % Seg Neuts % (Manual) Lymphocytes % (Manual) Seg Neutrophils # Seg Neutrophils # Man D-Dimer ABG pH ABG pO2 ABG O2 Saturation Oxyhemoglobin Sodium Chloride Carbon Dioxide BUN Creatinine Glucose POC Glucose 374 H 341 H 344 H Calcium Ferritin AST Lactate Dehydrogenase C-Reactive Protein Total Protein Albumin Coronavirus (PCR) 01/20/21 01/20/21 01/20/21 07:33 12:14 13:54 WBC RBC MCV MCH RDW Lymph % (Auto) [place] % (Auto) Lymph # (Auto) Seg Neutrophils % Seg Neuts % (Manual) Lymphocytes % (Manual) Seg Neutrophils # Seg Neutrophils # Man D-Dimer ABG pH ABG pO2 ABG O2 Saturation Oxyhemoglobin Sodium Chloride Carbon Dioxide BUN 32 H 31 H Creatinine Glucose 343 H 396 H POC Glucose 365 H Calcium Ferritin AST 57 H 54 H Lactate Dehydrogenase C-Reactive Protein Total Protein 8.3 H Albumin 2.7 L 3.1 L Coronavirus (PCR) 01/20/21 01/20/21 01/21/21 18:28 21:25 04:45 WBC RBC MCV MCH RDW Lymph % (Auto) [place] % (Auto) Lymph # (Auto) Seg Neutrophils % Seg Neuts % (Manual) Lymphocytes % (Manual) Seg Neutrophils # Seg Neutrophils # Man D-Dimer ABG pH ABG pO2 ABG O2 Saturation Oxyhemoglobin Sodium Chloride Carbon Dioxide 31 H BUN 41 H Creatinine Glucose 377 H POC Glucose 403 H 340 H Calcium Ferritin AST Lactate Dehydrogenase C-Reactive Protein Total Protein 8.3 H Albumin 3.0 L Coronavirus (PCR) 01/21/21 01/21/21 01/21/21 04:45 04:45 04:45 WBC RBC MCV MCH RDW Lymph % (Auto) [place] % (Auto) Lymph # (Auto) Seg Neutrophils % Seg Neuts % (Manual) Lymphocytes % (Manual) Seg Neutrophils # Seg Neutrophils # Man D-Dimer > 82952 H ABG pH ABG pO2 ABG O2 Saturation Oxyhemoglobin Sodium Chloride Carbon Dioxide BUN Creatinine Glucose POC Glucose Calcium Ferritin 1688.0 H AST Lactate Dehydrogenase 649 H C-Reactive Protein 17.00 H Total Protein Albumin Coronavirus (PCR) 01/21/21 01/21/21 01/21/21 09:45 11:29 12:09 WBC RBC MCV MCH RDW Lymph % (Auto) [place] % (Auto) Lymph # (Auto) Seg Neutrophils % Seg Neuts % (Manual) Lymphocytes % (Manual) Seg Neutrophils # Seg Neutrophils # Han D-Dimer ABG pH ABG pO2 ABG O2 Saturation Oxyhemoglobin Sodium 151 H Chloride Carbon Dioxide BUN 40 H Creatinine Glucose 412 H POC Glucose 401 H 372 H Calcium Ferritin AST Lactate Dehydrogenase C-Reactive Protein Total Protein Albumin 3.4 L Coronavirus (PCR) 01/21/21 01/21/21 01/22/21 18:26 21:09 02:00 WBC RBC MCV MCH RDW Lymph % (Auto) [place] % (Auto) Lymph # (Auto) Seg Neutrophils % Seg Neuts % (Manual) Lymphocytes % (Manual) Seg Neutrophils # Seg Neutrophils # Man D-Dimer ABG pH ABG pO2 ABG O2 Saturation Oxyhemoglobin Sodium Chloride Carbon Dioxide BUN Creatinine Glucose POC Glucose 376 H 322 H 231 H Calcium Ferritin AST Lactate Dehydrogenase C-Reactive Protein Total Protein Albumin Coronavirus (PCR) 01/22/21 01/22/21 01/22/21 05:24 08:25 08:25 WBC RBC 5.44 H MCV 75 L MCH 23 L RDW 15.5 H Lymph % (Auto) [place] % (Auto) Lymph # (Auto) Seg Neutrophils % Seg Neuts % (Manual) Lymphocytes % (Manual) Seg Neutrophils # Seg Neutrophils # Man D-Dimer ABG pH ABG pO2 ABG O2 Saturation Oxyhemoglobin Sodium 155 H Chloride 112.4 H Carbon Dioxide BUN 33 H Creatinine Glucose 274 H POC Glucose 275 H Calcium Ferritin AST Lactate Dehydrogenase C-Reactive Protein Total Protein Albumin Coronavirus (PCR) 01/22/21 01/22/21 01/22/21 11:53 16:03 21:41 WBC RBC MCV MCH RDW Lymph % (Auto) [place] % (Auto) Lymph # (Auto) Seg Neutrophils % Seg Neuts % (Manual) Lymphocytes % (Manual) Seg Neutrophils # Seg Neutrophils # Man D-Dimer ABG pH ABG pO2 ABG O2 Saturation Oxyhemoglobin Sodium Chloride Carbon Dioxide BUN Creatinine Glucose POC Glucose 265 H 293 H 279 H Calcium Ferritin AST Lactate Dehydrogenase C-Reactive Protein Total Protein Albumin Coronavirus (PCR) 01/23/21 01/23/21 01/23/21 02:03 05:46 05:59 WBC RBC MCV MCH RDW Lymph % (Auto) [place] % (Auto) Lymph # (Auto) Seg Neutrophils % Seg Neuts % (Manual) Lymphocytes % (Manual) Seg Neutrophils # Seg Neutrophils # Man D-Dimer ABG pH ABG pO2 ABG O2 Saturation Oxyhemoglobin Sodium Chloride Carbon Dioxide BUN Creatinine Glucose POC Glucose 268 H 303 H Calcium Ferritin 1116.0 H AST Lactate Dehydrogenase C-Reactive Protein Total Protein Albumin Coronavirus (PCR) 01/23/21 01/23/21 01/23/21 05:59 07:42 09:11 WBC RBC MCV MCH RDW Lymph % (Auto) [place] % (Auto) Lymph # (Auto) Seg Neutrophils % Seg Neuts % (Manual) Lymphocytes % (Manual) Seg Neutrophils # Seg Neutrophils # Man D-Dimer ABG pH ABG pO2 ABG O2 Saturation Oxyhemoglobin Sodium Chloride Carbon Dioxide BUN Creatinine Glucose POC Glucose 291 H 285 H Calcium Ferritin AST Lactate Dehydrogenase 680 H C-Reactive Protein 5.80 H Total Protein Albumin Coronavirus (PCR) 01/23/21 01/23/21 01/23/21 14:06 17:05 17:59 WBC RBC MCV MCH RDW Lymph % (Auto) [place] % (Auto) Lymph # (Auto) Seg Neutrophils % Seg Neuts % (Manual) Lymphocytes % (Manual) Seg Neutrophils # Seg Neutrophils # Man D-Dimer ABG pH ABG pO2 ABG O2 Saturation Oxyhemoglobin Sodium Chloride Carbon Dioxide BUN Creatinine Glucose POC Glucose 228 H 300 H 278 H Calcium Ferritin AST Lactate Dehydrogenase C-Reactive Protein Total Protein Albumin Coronavirus (PCR) 01/23/21 01/24/21 01/24/21 21:43 02:14 05:15 WBC RBC MCV MCH RDW Lymph % (Auto) [place] % (Auto) Lymph # (Auto) Seg Neutrophils % Seg Neuts % (Manual) Lymphocytes % (Manual) Seg Neutrophils # Seg Neutrophils # Man D-Dimer ABG pH ABG pO2 ABG O2 Saturation Oxyhemoglobin Sodium Chloride Carbon Dioxide BUN Creatinine Glucose POC Glucose 223 H 427 H 392 H Calcium Ferritin AST Lactate Dehydrogenase C-Reactive Protein Total Protein Albumin Coronavirus (PCR) 01/24/21 01/24/21 01/24/21 07:03 07:03 09:10 WBC RBC 5.49 H MCV 75 L MCH 23 L RDW Lymph % (Auto) 7.0 L [place] % (Auto) Lymph # (Auto) 0.5 L Seg Neutrophils % 86.1 H Seg Neuts % (Manual) Lymphocytes % (Manual) Seg Neutrophils # Seg Neutrophils # Man D-Dimer ABG pH ABG pO2 ABG O2 Saturation Oxyhemoglobin Sodium 149 H Chloride 111.4 H Carbon Dioxide BUN 24 H Creatinine Glucose 339 H POC Glucose 284 H Calcium Ferritin AST Lactate Dehydrogenase C-Reactive Protein Total Protein Albumin Coronavirus (PCR) 01/24/21 01/24/21 01/24/21 13:47 18:30 21:58 WBC RBC MCV MCH RDW Lymph % (Auto) [place] % (Auto) Lymph # (Auto) Seg Neutrophils % Seg Neuts % (Manual) Lymphocytes % (Manual) Seg Neutrophils # Seg Neutrophils # Man D-Dimer ABG pH ABG pO2 ABG O2 Saturation Oxyhemoglobin Sodium Chloride Carbon Dioxide BUN Creatinine Glucose POC Glucose 317 H 180 H 262 H Calcium Ferritin AST Lactate Dehydrogenase C-Reactive Protein Total Protein Albumin Coronavirus (PCR) 01/25/21 01/25/21 01/25/21 01:22 05:35 08:36 WBC RBC MCV MCH RDW Lymph % (Auto) [place] % (Auto) Lymph # (Auto) Seg Neutrophils % Seg Neuts % (Manual) Lymphocytes % (Manual) Seg Neutrophils # Seg Neutrophils # Man D-Dimer ABG pH ABG pO2 ABG O2 Saturation Oxyhemoglobin Sodium Chloride Carbon Dioxide BUN Creatinine Glucose POC Glucose 280 H 243 H 216 H Calcium Ferritin AST Lactate Dehydrogenase C-Reactive Protein Total Protein Albumin Coronavirus (PCR) 01/25/21 01/25/21 01/25/21 15:14 15:14 15:14 WBC RBC MCV MCH RDW Lymph % (Auto) [place] % (Auto) Lymph # (Auto) Seg Neutrophils % Seg Neuts % (Manual) Lymphocytes % (Manual) Seg Neutrophils # Seg Neutrophils # Man D-Dimer 6312.54 H ABG pH ABG pO2 ABG O2 Saturation Oxyhemoglobin Sodium 146 H Chloride 108.1 H Carbon Dioxide BUN 19 H Creatinine Glucose 287 H POC Glucose Calcium 8.3 L Ferritin 869.5 H AST Lactate Dehydrogenase 685 H C-Reactive Protein Total Protein Albumin Coronavirus (PCR) 01/25/21 01/25/21 01/26/21 16:06 21:18 01:47 WBC RBC MCV MCH RDW Lymph % (Auto) [place] % (Auto) Lymph # (Auto) Seg Neutrophils % Seg Neuts % (Manual) Lymphocytes % (Manual) Seg Neutrophils # Seg Neutrophils # Man D-Dimer ABG pH ABG pO2 ABG O2 Saturation Oxyhemoglobin Sodium Chloride Carbon Dioxide BUN Creatinine Glucose POC Glucose 267 H 197 H 255 H Calcium Ferritin AST Lactate Dehydrogenase C-Reactive Protein Total Protein Albumin Coronavirus (PCR) 01/26/21 01/26/21 01/26/21 05:23 05:23 05:23 WBC RBC MCV MCH RDW Lymph % (Auto) [place] % (Auto) Lymph # (Auto) Seg Neutrophils % Seg Neuts % (Manual) Lymphocytes % (Manual) Seg Neutrophils # Seg Neutrophils # Man D-Dimer 5809.58 H ABG pH ABG pO2 ABG O2 Saturation Oxyhemoglobin Sodium 149 H Chloride 109.3 H Carbon Dioxide BUN 24 H Creatinine Glucose 362 H POC Glucose Calcium Ferritin 877.1 H AST Lactate Dehydrogenase 655 H C-Reactive Protein Total Protein Albumin Coronavirus (PCR) 01/26/21 01/26/21 01/26/21 05:23 06:06 09:28 WBC RBC 5.49 H MCV 77 L MCH 23 L RDW Lymph % (Auto) [place] % (Auto) Lymph # (Auto) 0.8 L Seg Neutrophils % 78.9 H Seg Neuts % (Manual) Lymphocytes % (Manual) Seg Neutrophils # Seg Neutrophils # Man D-Dimer ABG pH ABG pO2 ABG O2 Saturation Oxyhemoglobin Sodium Chloride Carbon Dioxide BUN Creatinine Glucose POC Glucose 387 H 308 H Calcium Ferritin AST Lactate Dehydrogenase C-Reactive Protein Total Protein Albumin Coronavirus (PCR) 01/26/21 01/26/21 01/27/21 15:56 21:28 02:51 WBC RBC MCV MCH RDW Lymph % (Auto) [place] % (Auto) Lymph # (Auto) Seg Neutrophils % Seg Neuts % (Manual) Lymphocytes % (Manual) Seg Neutrophils # Seg Neutrophils # Man D-Dimer ABG pH ABG pO2 ABG O2 Saturation Oxyhemoglobin Sodium Chloride Carbon Dioxide BUN Creatinine Glucose POC Glucose 172 H 316 H 267 H Calcium Ferritin AST Lactate Dehydrogenase C-Reactive Protein Total Protein Albumin Coronavirus (PCR) 01/27/21 01/27/21 01/27/21 04:22 04:22 04:22 WBC RBC MCV MCH RDW Lymph % (Auto) [place] % (Auto) Lymph # (Auto) Seg Neutrophils % Seg Neuts % (Manual) Lymphocytes % (Manual) Seg Neutrophils # Seg Neutrophils # Man D-Dimer 4046.06 H ABG pH ABG pO2 ABG O2 Saturation Oxyhemoglobin Sodium Chloride 107.7 H Carbon Dioxide BUN 30 H Creatinine Glucose 281 H POC Glucose Calcium Ferritin 812.2 H AST Lactate Dehydrogenase 570 H C-Reactive Protein Total Protein Albumin Coronavirus (PCR) 01/27/21 01/27/21 01/27/21 04:22 05:55 12:00 WBC RBC 5.15 H MCV 76 L MCH 23 L RDW 15.5 H Lymph % (Auto) 12.7 L [place] % (Auto) Lymph # (Auto) 0.9 L Seg Neutrophils % 81.3 H Seg Neuts % (Manual) Lymphocytes % (Manual) Seg Neutrophils # Seg Neutrophils # Man D-Dimer ABG pH ABG pO2 ABG O2 Saturation Oxyhemoglobin Sodium Chloride Carbon Dioxide BUN Creatinine Glucose POC Glucose 275 H 121 H Calcium Ferritin AST Lactate Dehydrogenase C-Reactive Protein Total Protein Albumin Coronavirus (PCR) 01/27/21 01/27/21 01/28/21 17:32 21:23 02:08 WBC RBC MCV MCH RDW Lymph % (Auto) [place] % (Auto) Lymph # (Auto) Seg Neutrophils % Seg Neuts % (Manual) Lymphocytes % (Manual) Seg Neutrophils # Seg Neutrophils # Man D-Dimer ABG pH ABG pO2 ABG O2 Saturation Oxyhemoglobin Sodium Chloride Carbon Dioxide BUN Creatinine Glucose POC Glucose 195 H 179 H 210 H Calcium Ferritin AST Lactate Dehydrogenase C-Reactive Protein Total Protein Albumin Coronavirus (PCR) 01/28/21 01/28/21 01/28/21 05:09 08:44 08:46 WBC RBC MCV MCH RDW Lymph % (Auto) [place] % (Auto) Lymph # (Auto) Seg Neutrophils % Seg Neuts % (Manual) Lymphocytes % (Manual) Seg Neutrophils # Seg Neutrophils # Man D-Dimer 1884.49 H ABG pH ABG pO2 ABG O2 Saturation Oxyhemoglobin Sodium Chloride Carbon Dioxide BUN Creatinine Glucose POC Glucose 202 H 191 H Calcium Ferritin AST Lactate Dehydrogenase C-Reactive Protein Total Protein Albumin Coronavirus (PCR) 01/28/21 01/28/21 01/28/21 08:46 08:46 12:18 WBC RBC MCV MCH RDW Lymph % (Auto) [place] % (Auto) Lymph # (Auto) Seg Neutrophils % Seg Neuts % (Manual) Lymphocytes % (Manual) Seg Neutrophils # Seg Neutrophils # Man D-Dimer ABG pH ABG pO2 ABG O2 Saturation Oxyhemoglobin Sodium Chloride Carbon Dioxide BUN Creatinine Glucose POC Glucose 221 H Calcium Ferritin 797.7 H AST Lactate Dehydrogenase 556 H C-Reactive Protein Total Protein Albumin Coronavirus (PCR) 01/28/21 01/28/21 01/29/21 18:21 21:45 01:48 WBC RBC MCV MCH RDW Lymph % (Auto) [place] % (Auto) Lymph # (Auto) Seg Neutrophils % Seg Neuts % (Manual) Lymphocytes % (Manual) Seg Neutrophils # Seg Neutrophils # Man D-Dimer ABG pH ABG pO2 ABG O2 Saturation Oxyhemoglobin Sodium Chloride Carbon Dioxide BUN Creatinine Glucose POC Glucose 214 H 148 H 248 H Calcium Ferritin AST Lactate Dehydrogenase C-Reactive Protein Total Protein Albumin Coronavirus (PCR) 01/29/21 01/29/21 01/29/21 05:17 10:17 11:39 WBC RBC MCV MCH RDW Lymph % (Auto) [place] % (Auto) Lymph # (Auto) Seg Neutrophils % Seg Neuts % (Manual) Lymphocytes % (Manual) Seg Neutrophils # Seg Neutrophils # Man D-Dimer ABG pH ABG pO2 ABG O2 Saturation Oxyhemoglobin Sodium Chloride Carbon Dioxide BUN Creatinine Glucose POC Glucose 256 H 193 H 177 H Calcium Ferritin AST Lactate Dehydrogenase C-Reactive Protein Total Protein Albumin Coronavirus (PCR) 01/29/21 01/29/21 01/30/21 18:06 20:24 06:07 WBC RBC MCV MCH RDW Lymph % (Auto) [place] % (Auto) Lymph # (Auto) Seg Neutrophils % Seg Neuts % (Manual) Lymphocytes % (Manual) Seg Neutrophils # Seg Neutrophils # Man D-Dimer ABG pH ABG pO2 ABG O2 Saturation Oxyhemoglobin Sodium Chloride Carbon Dioxide BUN Creatinine Glucose POC Glucose 107 H 114 H 114 H Calcium Ferritin AST Lactate Dehydrogenase C-Reactive Protein Total Protein Albumin Coronavirus (PCR) 01/30/21 01/30/21 01/30/21 12:08 16:11 21:19 WBC RBC MCV MCH RDW Lymph % (Auto) [place] % (Auto) Lymph # (Auto) Seg Neutrophils % Seg Neuts % (Manual) Lymphocytes % (Manual) Seg Neutrophils # Seg Neutrophils # Man D-Dimer ABG pH ABG pO2 ABG O2 Saturation Oxyhemoglobin Sodium Chloride Carbon Dioxide BUN Creatinine Glucose POC Glucose 178 H 142 H 244 H Calcium Ferritin AST Lactate Dehydrogenase C-Reactive Protein Total Protein Albumin Coronavirus (PCR) 01/31/21 01/31/21 01/31/21 05:30 06:42 07:50 WBC RBC MCV MCH RDW Lymph % (Auto) [place] % (Auto) Lymph # (Auto) Seg Neutrophils % Seg Neuts % (Manual) Lymphocytes % (Manual) Seg Neutrophils # Seg Neutrophils # Man D-Dimer ABG pH ABG pO2 ABG O2 Saturation Oxyhemoglobin Sodium Chloride Carbon Dioxide BUN 20 H Creatinine Glucose 160 H POC Glucose 164 H 152 H Calcium 8.0 L Ferritin AST Lactate Dehydrogenase C-Reactive Protein Total Protein Albumin Coronavirus (PCR) 01/31/21 01/31/21 01/31/21 11:40 16:37 21:01 WBC RBC MCV MCH RDW Lymph % (Auto) [place] % (Auto) Lymph # (Auto) Seg Neutrophils % Seg Neuts % (Manual) Lymphocytes % (Manual) Seg Neutrophils # Seg Neutrophils # Man D-Dimer ABG pH ABG pO2 ABG O2 Saturation Oxyhemoglobin Sodium Chloride Carbon Dioxide BUN Creatinine Glucose POC Glucose 129 H 141 H 125 H Calcium Ferritin AST Lactate Dehydrogenase C-Reactive Protein Total Protein Albumin Coronavirus (PCR) 02/01/21 02/01/21 02/01/21 06:26 11:15 16:11 WBC RBC MCV MCH RDW Lymph % (Auto) [place] % (Auto) Lymph # (Auto) Seg Neutrophils % Seg Neuts % (Manual) Lymphocytes % (Manual) Seg Neutrophils # Seg Neutrophils # Man D-Dimer ABG pH ABG pO2 ABG O2 Saturation Oxyhemoglobin Sodium Chloride Carbon Dioxide BUN Creatinine Glucose POC Glucose 136 H 260 H 240 H Calcium Ferritin AST Lactate Dehydrogenase C-Reactive Protein Total Protein Albumin Coronavirus (PCR) 02/01/21 02/02/21 02/02/21 22:32 07:15 07:56 WBC 3.1 L RBC MCV 75 L MCH 23 L RDW Lymph % (Auto) 44.9 H [place] % (Auto) 9.2 H Lymph # (Auto) Seg Neutrophils % Seg Neuts % (Manual) Lymphocytes % (Manual) Seg Neutrophils # 1.3 L Seg Neutrophils # Man D-Dimer ABG pH ABG pO2 ABG O2 Saturation Oxyhemoglobin Sodium Chloride Carbon Dioxide BUN Creatinine Glucose POC Glucose 298 H 164 H Calcium Ferritin AST Lactate Dehydrogenase C-Reactive Protein Total Protein Albumin Coronavirus (PCR) 02/02/21 02/02/21 02/02/21 07:56 11:35 16:07 WBC RBC MCV MCH RDW Lymph % (Auto) [place] % (Auto) Lymph # (Auto) Seg Neutrophils % Seg Neuts % (Manual) Lymphocytes % (Manual) Seg Neutrophils # Seg Neutrophils # Man D-Dimer ABG pH ABG pO2 ABG O2 Saturation Oxyhemoglobin Sodium Chloride Carbon Dioxide 31 H BUN Creatinine 0.4 L Glucose 159 H POC Glucose 297 H 252 H Calcium 8.2 L Ferritin AST Lactate Dehydrogenase C-Reactive Protein Total Protein Albumin Coronavirus (PCR) 02/02/21 02/03/21 02/03/21 22:33 17:04 22:17 WBC RBC MCV MCH RDW Lymph % (Auto) [place] % (Auto) Lymph # (Auto) Seg Neutrophils % Seg Neuts % (Manual) Lymphocytes % (Manual) Seg Neutrophils # Seg Neutrophils # Man D-Dimer ABG pH ABG pO2 ABG O2 Saturation Oxyhemoglobin Sodium Chloride Carbon Dioxide BUN Creatinine Glucose POC Glucose 257 H 247 H 278 H Calcium Ferritin AST Lactate Dehydrogenase C-Reactive Protein Total Protein Albumin Coronavirus (PCR) 02/04/21 02/04/21 05:41 07:55 WBC RBC MCV MCH RDW Lymph % (Auto) [place] % (Auto) Lymph # (Auto) Seg Neutrophils % Seg Neuts % (Manual) Lymphocytes % (Manual) Seg Neutrophils # Seg Neutrophils # Man D-Dimer ABG pH ABG pO2 ABG O2 Saturation Oxyhemoglobin Sodium Chloride Carbon Dioxide 31 H BUN 19 H Creatinine 0.5 L Glucose 184 H POC Glucose 182 H Calcium Ferritin AST Lactate Dehydrogenase C-Reactive Protein Total Protein Albumin Coronavirus (PCR)
--- NOTE | 2021-02-04 09:59 | XRay Report ---
CHEST 1 VIEW 02/04/2021 8:50 AM INDICATION / CLINICAL INFORMATION: SHORTNESS OF BREATH. COMPARISON: 01/17/2021. FINDINGS: SUPPORT DEVICES: None. HEART / MEDIASTINUM: Stable. LUNGS / PLEURA: Patchy bilateral pulmonary opacities are relatively unchanged. No pneumothorax. ADDITIONAL FINDINGS: No significant additional findings. IMPRESSION: 1. Diffuse patchy bilateral airspace disease is relatively unchanged. Signer Name: Mani Moody MD Signed: 02/04/2021 9:55 AM Workstation Name: [id number]
[2021-02-04] MEDS: CHOLECALCIFEROL (VIT D3) 5,000 UNIT TAB PO SCH (11:02)
[2021-02-04] MEDS: FAMOTIDINE 20 MG TAB PO SCH ×2 (11:02→22:56)
[2021-02-04] MEDS: ASCORBIC ACID 500 MG TAB PO SCH ×2 (11:02→22:57)
[2021-02-04] MEDS: ENOXAPARIN 100 MG/1 ML INJ SUB-Q SCH (11:02)
[2021-02-04] MEDS: DIVALPROEX ER 500 MG TAB PO SCH (11:03)
[2021-02-04] MEDS: METOPROLOL TARTRATE 25 MG TAB PO SCH ×3 (11:03→22:57)
--- NOTE | 2021-02-04 11:03 | Progress Note ---
Assessment and Plan Assessment and plan: This is a 55-year-old female with schizophrenia who presented to [facility] on 01/18 for shortness of breath, cough, subjective fever and not feeling well for the last couple days with known COVID-19 exposure. While in the emergency room patient was switched from non rebreather mask to high flow nasal cannula and his CTA chest showed no acute pulmonary embolism. Patient was admitted to the hospital service as a COVID-19 PUI with consults to CCM, infectious disease, psych. Severe COVID-19 pneumonia Acute hypoxic respiratory failure Obesity Schizophrenia Leukocytosis Hyperglycemia Schizophrenia Hypernatremia Hypercholermia -CCM, infectious disease, psychiatry consulted, appreciate recommendations -COVID-19 PCR positive -Droplet/contact isolation -Remdesivir, azithromycin, ceftriaxone, dexamethasone (twice daily dosing) -s/p Actemra -Wean supplemental oxygen as tolerated, pulmonary hygiene -Prone as tolerated -Trend COVID-19 inflammatory markers for risk stratification, CBC, CMP -SSI, Lantus -01/18 bilateral lower extremity Doppler ultrasound negative for DVT -01/17 CTA shows no evidence of pulmonary embolism, extensive bilateral pneumonia, hepatomegaly with hepatic steatosis 01/18/2021 -Acute hypoxic respiratory failure requiring high flow oxygen 40 L. Nebulizer treatment -Patient is admitted for suspected Covid pneumonia. Patient is on dexamethasone, COVID-19 test is pending. Patient is on empiric antibiotics. -ID consulted, will consult pulmonary. -Patient has hyponatremia yesterday and I will repeat and if it is low I will manage accordingly -Patient has elevated D-dimer and CTA chest and bilateral Doppler ultrasound of the lower extremities pending 01/19/2021 -Acute hypoxic respiratory failure currently on BiPAP, nebulizer treatment. I will put in orders to transfer to [facility] yesterday but there was no bed. -Patient is positive for Covid and she is on Decadron and remdesivir. Actemra was ordered on 01/19/2021 -ID evaluated the patient and recommend to continue Decadron and remdesivir, also to continue ceftriaxone and azithromycin for 5 days because of the elevated procalcitonin level. Pulmonary was consulted and recommend to continue current management and add Lasix -CTA chest was done and significant for bilateral pulmonary opacities, negative for PE, Doppler ultrasound of the lower extremities was negative for DVT. -Prognosis is guarded. -Patient is currently on BiPAP and she was agitated and trying to take off the BiPAP, I put the patient on restraints. Discussed with housekeeping/laundry to transfer the patient to IMCU and if there is no bed she need to be transferred to CCU. 01/20: Patient received 5 mg of Haldol for severe agitation and refusal to keep high flow nasal cannula in place. [facility] ordered Lasix again. Psych was consulted today. Patient was on BiPAP therapy all night and RT attempted to give her a break patient is on high flow nasal cannula however she did not keep this in place and was paced back on BiPAP after receiving Haldol. She was started on Lantus today. 01/21: Patient is on BiPAP and on time examination was on 20/10 100% FiO2. Patient was started on Lantus. Psych consult completed and started on Haldol p.o. twice daily and Mirtazepin PO daily. No acute events reported overnight. Patient's D-dimer is greater than 10,000 started on prophylactic Lovenox as recent CTA chest and bilateral lower extremity Doppler ultrasound were negative. 01/22: Patient has been taken off BiPAP therapy and placed on high flow nasal cannula. Patient has been downgraded to IMCU. Patient's hyponatremia and hypochloremia have worsened. 01/23: Patient was on BiPAP overnight with FiO2 85% and IPAP 20/EPAP 10. Patient currently with high flow nasal cannula 40 L O2 with an FiO2 of 100%. Continue remdesivir and dexamethasone. Patient is s/p Actemra on 01/20. Continue empiric antibiotics per ID recommendations. Continue anticoagulation per protocol. 01/24: Patient is tachycardic and hypertensive and [facility] has opted to add amlod ipine. Patient remains on 40 L 100% high flow nasal cannula. Continue remdesivir and dexamethasone. Patient is s/p Actemra on 01/20. Continue empiric antibiotics per ID recommendations. Continue anticoagulation per protocol. 01/25: Patient currently with high flow nasal cannula 40 L/min with FiO2 100%. Continue dexamethasone. Patient has completed remdesivir and s/p Actemra on 01/20. Continue full dose anticoagulation given high elevated D-dimer. Continue to trend inflammatory markers. Prognosis remains guarded. 01/26: Patient currently with high flow nasal cannula 35 L/min and FiO2 90%. Continue dexamethasone. Patient has completed remdesivir and s/p Actemra on 01/20. Continue full dose anticoagulation given high elevated D-dimer. Continue to trend inflammatory markers. Prognosis remains guarded. 01/27: Patient currently with high flow nasal cannula/Vapotherm 35 L/min O2 with FiO2 90%. Patient has completed remdesivir and s/p Actemra on 01/20. Continue full dose anticoagulation given high elevated D-dimer. Continue to trend inflammatory markers. Prognosis remains guarded. 01/28; Patient currently with high flow nasal cannula/Vapotherm 35 L/min O2 with FiO2 90%. Patient has completed remdesivir and s/p Actemra on 01/20. Continue full dose anticoagulation given high elevated D-dimer. Continue to trend inflammatory markers. Prognosis remains guarded. 01/29; patient is currently on 35 L of high flow oxygen. Prognosis guarded. Patient can be transferred to regular floor. 01/30/2021; patient is currently on 35 L of high flow oxygen, FiO2 of 65%. Patient has flat affect and did not talk to me. Patient refused most of her p.o. medications. Patient finished remdesivir, steroid. 01/31/2021; patient is on 35 L of high flow oxygen, FiO2 65%. Patient was calm and cooperative and communicative today. pulmonary is following. Patient finished remdesivir and steroid. 02/01/2021; patient was on 40 L of high flow oxygen.. I have called and discussed with her mother yesterday. Her mother told me patient was last followed at [facility] and I called facility and they told me medication she was on and I put these medications. Patient refused to eat so I put the patient on NG tube feeding for medications. Prognosis is guarded. 02/02/2021; patient is on 4 L of high flow oxygen with FiO2 of 60%. Her outpatient psych medications were reconciled. Patient was taking medications and as needed NG tube. Pulmonary is following the patient. 02/03/21: Patient noted with mild epistaxis this morning we will order some Afrin to help. Continue current management patient is on 35 L high flow. No worsening distress but still with intermittent confusion sometimes takes off the oxygen. Will repeat a trial of Lasix and monitor renal function with a.m. labs. Plan discussed with nurse at bedside. I also encouraged proning again. 02/04: Unfortunately still with hypoxia desaturating required increased to 50 L and 70% will gradually taper down. Patient due to her underlying psych history of schizophrenia is noncompliant. Daughter is working on getting guardianship over the patient. This will likely be a slow process nevertheless we will still obtain a CT of the head to ensure no other pathology. We will get an ABG and a chest x-ray today. The high probability of a clinically significant, sudden or life threatening deterioration of the [pulmonayr] system(s) required my full and direct attention, intervention and personal management. The aggregate critical care time was [35] minutes. This time is in addition to time spent performing reported procedures but includes the following: [x] Data Review and interpretation [x] Patient assessment and monitoring of vital signs [x] Documentation [x] Medication orders and management History Interval history: Patient seen and examined confused, continues to pull of her oxygen leading to desaturation. Did speak with her daughter who states that they are trying to get guardianship patient has been noncompliant with medications in the past. She will try to get me a list of her home [facility] Hospitalist Physical - Physical exam Narrative exam: ON HIGH FLOW The patient appeared well nourished and normally developed. Vital signs as documented. Head exam is unremarkable. No scleral icterus . Neck is without jugular venous distension, thyromegaly, or carotid bruits. Lungs decreased air entry on both lungs Cardiac exam reveals regular rate and Rhythm. Abdominal exam reveals normal bowel sounds, nontender, no organomegaly. Extremities are nonedematous and both femoral and pedal pulses are normal. 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 Patient is pleasant and communicative today, but still confused. - Constitutional Vitals: Temp Pulse Resp BP Pulse Ox 98.4 F 114 H 20 106/66 91 02/04/21 04:32 02/04/21 08:00 02/04/21 08:00 02/04/21 04:32 02/04/21 08:54 General appearance: Present: no acute distress, well-nourished HEART Score - HEART Score Troponin: Troponin T < 0.010 ng/mL (0.00-0.029) 01/17/21 16:41 Results - Labs CBC & Chem 7: 02/02/21 07:56 02/04/21 05:41 Labs: Laboratory Last Values WBC 3.1 K/mm3 (4.5-11.0) L 02/02/21 07:56 RBC 4.70 M/mm3 (3.65-5.03) 02/02/21 07:56 Hgb 10.7 gm/dl (10.1-14.3) 02/02/21 07:56 Hct 35.4 % (30.3-42.9) 02/02/21 07:56 MCV 75 fl (79-97) L 02/02/21 07:56 MCH 23 pg (28-32) L 02/02/21 07:56 MCHC 30 % (30-34) 02/02/21 07:56 RDW 15.0 % (13.2-15.2) 02/02/21 07:56 Plt Count 155 K/mm3 (140-440) 02/02/21 07:56 Lymph % (Auto) 44.9 % (13.4-35.0) H 02/02/21 07:56 [place] % (Auto) 9.2 % (0.0-7.3) H 02/02/21 07:56 Eos % (Auto) 3.6 % (0.0-4.3) 02/02/21 07:56 Baso % (Auto) 0.3 % (0.0-1.8) 02/02/21 07:56 Lymph # (Auto) 1.4 K/mm3 (1.2-5.4) 02/02/21 07:56 [place] # (Auto) 0.3 K/mm3 (0.0-0.8) 02/02/21 07:56 Eos # (Auto) 0.1 K/mm3 (0.0-0.4) 02/02/21 07:56 Baso # (Auto) 0.0 K/mm3 (0.0-0.1) 02/02/21 07:56 Add Manual Diff Complete 01/19/21 05:11 Total Counted 100 01/19/21 05:11 Seg Neutrophils % 42.0 % (40.0-70.0) 02/02/21 07:56 Seg Neuts % (Manual) 88.0 % (40.0-70.0) H 01/19/21 05:11 Lymphocytes % (Manual) 10.0 % (13.4-35.0) L 01/19/21 05:11 Monocytes % (Manual) 2.0 % (0.0-7.3) 01/19/21 05:11 Nucleated RBC % Not Reportable 01/19/21 05:11 Seg Neutrophils # 1.3 K/mm3 (1.8-7.7) L 02/02/21 07:56 Seg Neutrophils # Man 12.5 K/mm3 (1.8-7.7) H 01/19/21 05:11 Band Neutrophils # 0.0 K/mm3 01/19/21 05:11 Lymphocytes # (Manual) 1.4 K/mm3 (1.2-5.4) 01/19/21 05:11 Abs React Lymphs (Man) 0.0 K/mm3 01/19/21 05:11 Monocytes # (Manual) 0.3 K/mm3 (0.0-0.8) 01/19/21 05:11 Eosinophils # (Manual) 0.0 K/mm3 (0.0-0.4) 01/19/21 05:11 Basophils # (Manual) 0.0 K/mm3 (0.0-0.1) 01/19/21 05:11 Metamyelocytes # 0.0 K/mm3 01/19/21 05:11 Myelocytes # 0.0 K/mm3 01/19/21 05:11 Promyelocytes # 0.0 K/mm3 01/19/21 05:11 Blast Cells # 0.0 K/mm3 01/19/21 05:11 WBC Morphology Not Reportable 01/19/21 05:11 Hypersegmented Neuts Not Reportable 01/19/21 05:11 Hyposegmented Neuts Not Reportable 01/19/21 05:11 Hypogranular Neuts Not Reportable 01/19/21 05:11 Smudge Cells Not Reportable 01/19/21 05:11 Toxic Granulation Not Reportable 01/19/21 05:11 Toxic Vacuolation Not Reportable 01/19/21 05:11 Dohle Bodies Not Reportable 01/19/21 05:11 Pelger-Huet Anomaly Not Reportable 01/19/21 05:11 Inder Rods Not Reportable 01/19/21 05:11 Platelet Estimate Consistent w auto 01/19/21 05:11 Clumped Platelets Not Reportable 01/19/21 05:11 Plt Clumps, EDTA Not Reportable 01/19/21 05:11 Large Platelets Not Reportable 01/19/21 05:11 Giant Platelets Not Reportable 01/19/21 05:11 Platelet Satelliting Not Reportable 01/19/21 05:11 Plt Morphology Comment Not Reportable 01/19/21 05:11 RBC Morphology Not Reportable 01/19/21 05:11 Dimorphic RBCs Not Reportable 01/19/21 05:11 Polychromasia Not Reportable 01/19/21 05:11 Hypochromasia 1+ 01/19/21 05:11 Poikilocytosis Not Reportable 01/19/21 05:11 Anisocytosis Not Reportable 01/19/21 05:11 Microcytosis Not Reportable 01/19/21 05:11 Macrocytosis Not Reportable 01/19/21 05:11 Spherocytes Not Reportable 01/19/21 05:11 Pappenheimer Bodies Not Reportable 01/19/21 05:11 Sickle Cells Not Reportable 01/19/21 05:11 Target Cells Not Reportable 01/19/21 05:11 Tear Drop Cells Not Reportable 01/19/21 05:11 Ovalocytes Not Reportable 01/19/21 05:11 Helmet Cells Not Reportable 01/19/21 05:11 Navarro-Decker Bodies Not Reportable 01/19/21 05:11 Sealy Rings Not Reportable 01/19/21 05:11 [place] Cells Not Reportable 01/19/21 05:11 Bite Cells Not Reportable 01/19/21 05:11 Crenated Cell Not Reportable 01/19/21 05:11 Elliptocytes Not Reportable 01/19/21 05:11 Acanthocytes (Spur) Not Reportable 01/19/21 05:11 Rouleaux Not Reportable 01/19/21 05:11 Hemoglobin C Crystals Not Reportable 01/19/21 05:11 Schistocytes Not Reportable 01/19/21 05:11 Malaria parasites Not Reportable 01/19/21 05:11 Chai Bodies Not Reportable 01/19/21 05:11 Hem Pathologist Commnt No 01/19/21 05:11 D-Dimer 1884.49 ng/mlDDU (0-234) H 01/28/21 08:46 ABG pH 7.461 pH Units (7.350-7.450) H 01/18/21 17:18 ABG pCO2 36.6 mm Hg 01/18/21 17:18 ABG pO2 53.1 mm Hg (80.0-90.0) L 01/18/21 17:18 ABG HCO3 25.5 mmol/L (20.0-26.0) 01/18/21 17:18 ABG O2 Saturation 89.4 % (95.0-99.0) L 01/18/21 17:18 ABG O2 Content 15.1 (0.0-44) 01/18/21 17:18 ABG Base Excess 1.9 mmol/L (-2.0-3.0) 01/18/21 17:18 ABG Hemoglobin 12.2 gm/dl (12.0-16.0) 01/18/21 17:18 ABG Carboxyhemoglobin 1.2 % (0.0-5.0) 01/18/21 17:18 ABG Methemoglobin 0.5 % (0.0-1.5) 01/18/21 17:18 Oxyhemoglobin 88.0 % (95.0-99.0) L 01/18/21 17:18 FiO2 100 % 01/18/21 17:18 Sodium 142 mmol/L (137-145) 02/04/21 05:41 Potassium 4.1 mmol/L (3.6-5.0) 02/04/21 05:41 Chloride 103.9 mmol/L (98-107) 02/04/21 05:41 Carbon Dioxide 31 mmol/L (22-30) H 02/04/21 05:41 Anion Gap 11 mmol/L 02/04/21 05:41 BUN 19 mg/dL (7-17) H 02/04/21 05:41 Creatinine 0.5 mg/dL (0.6-1.2) L 02/04/21 05:41 Estimated GFR > 60 ml/min 02/04/21 05:41 BUN/Creatinine Ratio 38 % 02/04/21 05:41 Glucose 184 mg/dL (65-100) H 02/04/21 05:41 POC Glucose 182 mg/dL (70-105) H 02/04/21 07:55 Lactic Acid 1.70 mmol/L (0.7-2.0) 01/17/21 16:41 Calcium 8.4 mg/dL (8.4-10.2) 02/04/21 05:41 Ferritin 797.7 ng/mL (10.0-200.0) H 01/28/21 08:46 Total Bilirubin 0.30 mg/dL (0.1-1.2) 01/21/21 11:29 AST 34 units/L (5-40) 01/21/21 11:29 ALT 38 units/L (7-56) 01/21/21 11:29 Alkaline Phosphatase 117 units/L (35-129) 01/21/21 11:29 Lactate Dehydrogenase 556 units/L (91-180) H 01/28/21 08:46 Troponin T < 0.010 ng/mL (0.00-0.029) 01/17/21 16:41 C-Reactive Protein 0.20 mg/dL (0.00-1.30) 01/28/21 08:46 NT-Pro-B Natriuret Pep 40.88 pg/mL (0-900) 01/17/21 16:41 Total Protein 7.3 g/dL (6.3-8.2) 01/21/21 11:29 Albumin 3.4 g/dL (3.9-5) L 01/21/21 11:29 Albumin/Globulin Ratio 0.9 % 01/21/21 11:29 Procalcitonin 0.39 ng/mL (<0.15) 01/17/21 17:46 Coronavirus (PCR) Positive (Negative) A 01/17/21 09:25 Estrada/IV: Voiding Method External Female Catheter Active Medications - Current Medications Current Medications: Generic Name Dose Route Start Last Admin Trade Name Freq PRN Reason Stop Dose Admin Acetaminophen 650 mg 01/18/21 00:36 01/22/21 23:46 Acetaminophen 325 Mg Tab PO 650 mg Q4H PRN Administration Pain MILD(1-3)/Fever >100.5/PAN Albuterol/Ipratropium 1 ampul 02/01/21 14:00 02/04/21 08:00 Ipratropium/Albuterol Sulfate 3 Ml Ampul.Neb IH 1 ampul TIDRT PJ Administration Aripiprazole 15 mg 01/31/21 13:00 02/03/21 09:13 Aripiprazole 15 Mg Tab PO 15 mg QDAY [facility] Administration Ascorbic Acid 1,000 mg 02/04/21 10:00 Ascorbic Acid 500 Mg Tab PO BID [facility] Cholecalciferol 5,000 unit 02/04/21 10:00 Cholecalciferol (Vit D3) 5,000 Unit Tab PO DAILY [facility] Divalproex Sodium 500 mg 01/31/21 12:00 02/03/21 09:13 Divalproex Er 500 Mg Tab PO 500 mg QDAY [facility] Administration Enoxaparin Sodium 100 mg 01/21/21 10:00 02/03/21 22:44 Enoxaparin 100 Mg/1 Ml Inj 1 mg/kg (100 mg) 100 mg SUB-Q Administration Q12HR [facility] Protocol Famotidine 20 mg 01/18/21 10:00 02/03/21 22:44 Famotidine 20 Mg Tab PO 20 mg BID [facility] Administration Hydralazine HCl 10 mg 01/18/21 00:38 01/24/21 23:12 Hydralazine 20 Mg/1 Ml Inj IV 10 mg Q6H PRN Administration htn Hydromorphone HCl 0.5 mg 01/20/21 11:00 Hydromorphone 1 Mg/1 Ml Inj IV Q6H PRN Pain , Severe (7-10) Hydrophilic Ointment 1 applic 02/03/21 12:00 Petrolatum,White 30 Gm Oint TP PRN PRN Skin Irritation Insulin Glargine 20 units 01/20/21 22:00 02/03/21 22:48 Insulin Glargine 100 Units/Ml SUB-Q 20 units QHS [facility] Administration Insulin Human Lispro 0 unit 02/01/21 11:30 02/04/21 08:32 Insulin Lispro 100 Unit/Ml SUB-Q 3 unit ACHS [facility] Administration Protocol Metoprolol Tartrate 12.5 mg 02/01/21 12:00 02/03/21 22:45 Metoprolol Tartrate 25 Mg Tab PO 12.5 mg BID PJ Administration Mirtazapine 7.5 mg 01/21/21 22:00 02/03/21 22:44 Mirtazapine 15 Mg Tab PO 7.5 mg QHS [facility] Administration Ondansetron HCl 4 mg 01/18/21 00:36 Ondansetron 4 Mg/2 Ml Inj IV Q8H PRN Nausea And Vomiting Oxymetazoline HCl 2 spray 02/03/21 12:00 02/03/21 13:17 Oxymetazoline 0.05% Nasal [place] NS 2 spray Q12H PRN Administration Congestion Paliperidone 6 mg 01/31/21 13:00 02/03/21 09:13 Paliperidone Er 3 Mg Tab PO 6 mg QDAY PJ Administration Sodium Chloride 10 ml 01/18/21 10:00 02/03/21 22:48 Sodium Chloride 0.9% 10 Ml Flush Syringe IV 10 ml BID PJ Administration Sodium Chloride 10 ml 01/18/21 00:36 Sodium Chloride 0.9% 10 Ml Flush Syringe IV PRN PRN LINE FLUSH Zinc Sulfate 220 mg 02/04/21 10:00 Zinc Sulfate 220 Mg Cap PO QDAY PJ Nutrition/Malnutrition Assess - Dietary Evaluation Nutrition/Malnutrition Findings: Nutrition Notes Start: 01/24/21 10:40 Freq: Status: Active Protocol: Document 02/04/21 08:44 AT (Rec: 02/04/21 08:47 AT [id number]) Co-Sign 02/04/21 08:44 LP Nutrition Notes Initial or Follow up Reassessment Current Diagnosis Respiratory Failure Other Pertinent Diagnosis pneu, COVID-19(+), AMS Current Diet Cardiac diet with Consistent CHO modifications Labs/Tests BUN 19 Cr 0.5 BG 184 Pertinent Medications Reviewed Height 5 ft 4 in Weight 93.3 kg [place] Body Weight (kg) 54.54 BMI 35.3 Weight Status Obese Subjective/Other Information Follow up for stable intakes and ONS tolerance. Per chart, pt is consuming 92% of meals on average and 100% of ONS. Pt is s/p Decadron therapy. Burn Absent Trauma Absent
[2021-02-04] MEDS: ZINC SULFATE 220 MG CAP PO SCH (11:04)
[2021-02-04] MEDS: ARIPiprazole 15 MG TAB PO SCH (11:07)
[2021-02-04] MEDS: PALIPERIDONE ER 3 MG TAB PO SCH (11:07)
[2021-02-04 15:49] LABS: Hemoglobin 10.4 gm/dl (10.1-14.3); Mean Corpuscular HGB Conc 31 % (30-34); Mean Corpuscular Volume 77 fl (79-97); Platelet Count 154 K/mm3 (140-440); Red Blood Count 4.42 M/mm3 (3.65-5.03); Red Cell Distribution Width 15.5 % (13.2-15.2)
[2021-02-04 16:03] LABS: INR 1.06 (0.87-1.13)
[2021-02-04 16:03] LABS: ABG Base Excess 5.5 mmol/L (-2.0-3.0); ABG HCO3 30.8 mmol/L (20.0-26.0); ABG Methemoglobin 0.4 % (0.0-1.5); ABG PCO2 48.7 mm Hg; ABG PH 7.418 pH Units (7.350-7.450); ABG PO2 65.6 mm Hg (80.0-90.0)
[2021-02-04 16:04] LABS: Partial Thromboplastin Time 30.7 Sec. (24.2-36.6)
[2021-02-04] MEDS: MIRTAZAPINE 15 MG TAB PO SCH (22:57)
[2021-02-04] MEDS: APIXABAN 2.5 MG TAB PO SCH (22:57)
[2021-02-04] MEDS: INSULIN GLARGINE 100 UNITS/ML SUB-Q SCH (23:26)
--- NOTE | 2021-02-05 07:06 | XRay Report ---
CHEST 1 VIEW 02/05/2021 5:58 AM INDICATION / CLINICAL INFORMATION: coughing up blood. COMPARISON: Previous day. FINDINGS: SUPPORT DEVICES: None. HEART / MEDIASTINUM: No significant abnormality. LUNGS / PLEURA: Bilateral infiltrates with sparing of the apices demonstrate mild worsening. Persiste nt mild elevation right hemidiaphragm. No pneumothorax. ADDITIONAL FINDINGS: No significant additional findings. IMPRESSION: Mild interval worsening. Signer Name: Curt Harry MD Signed: 02/05/2021 7:01 AM Workstation Name: [id number]
[2021-02-05 07:08] LABS: Hematocrit 32.3 % (30.3-42.9)
[2021-02-05] MEDS: INSULIN LISPRO 100 UNIT/ML SUB-Q SCH ×4 (08:22→21:53)
[2021-02-05] MEDS: IPRATROPIUM/ALBUTEROL SULFATE 3 ML AMPUL.NEB IH SCH ×3 (08:51→20:45)
--- NOTE | 2021-02-05 08:56 | Progress Note ---
Assessment and Plan Assessment and plan: This is a 55-year-old female with schizophrenia who presented to [facility] on 01/18 for shortness of breath, cough, subjective fever and not feeling well for the last couple days with known COVID-19 exposure. While in the emergency room patient was switched from non rebreather mask to high flow nasal cannula and his CTA chest showed no acute pulmonary embolism. Patient was admitted to the hospital service as a COVID-19 PUI with consults to CCM, infectious disease, psych. Severe COVID-19 pneumonia Acute hypoxic respiratory failure Obesity Schizophrenia Leukocytosis Hyperglycemia Schizophrenia Hypernatremia Hypercholermia Hemoptysis -CCM, infectious disease, psychiatry consulted, appreciate recommendations -COVID-19 PCR positive -Droplet/contact isolation -Remdesivir, azithromycin, ceftriaxone, dexamethasone (twice daily dosing) -s/p Actemra -Wean supplemental oxygen as tolerated, pulmonary hygiene -Prone as tolerated -Trend COVID-19 inflammatory markers for risk stratification, CBC, CMP -SSI, Lantus -01/18 bilateral lower extremity Doppler ultrasound negative for DVT -01/17 CTA shows no evidence of pulmonary embolism, extensive bilateral pneumonia, hepatomegaly with hepatic steatosis 01/18/2021 -Acute hypoxic respiratory failure requiring high flow oxygen 40 L. Nebulizer treatment -Patient is admitted for suspected Covid pneumonia. Patient is on dexamethasone, COVID-19 test is pending. Patient is on empiric antibiotics. -ID consulted, will consult pulmonary. -Patient has hyponatremia yesterday and I will repeat and if it is low I will manage accordingly -Patient has elevated D-dimer and CTA chest and bilateral Doppler ultrasound of the lower extremities pending 01/19/2021 -Acute hypoxic respiratory failure currently on BiPAP, nebulizer treatment. I will put in orders to transfer to [facility] yesterday but there was no bed. -Patient is positive for Covid and she is on Decadron and remdesivir. Actemra was ordered on 01/19/2021 -ID evaluated the patient and recommend to continue Decadron and remdesivir, also to continue ceftriaxone and azithromycin for 5 days because of the elevated procalcitonin level. Pulmonary was consulted and recommend to continue current management and add Lasix -CTA chest was done and significant for bilateral pulmonary opacities, negative for PE, Doppler ultrasound of the lower extremities was negative for DVT. -Prognosis is guarded. -Patient is currently on BiPAP and she was agitated and trying to take off the BiPAP, I put the patient on restraints. Discussed with house steward/stewardess to transfer the patient to IMCU and if there is no bed she need to be transferred to CCU. 01/20: Patient received 5 mg of Haldol for severe agitation and refusal to keep high flow nasal cannula in place. [facility] ordered Lasix again. Psych was consulted today. Patient was on BiPAP therapy all night and RT attempted to give her a break patient is on high flow nasal cannula however she did not keep this in place and was paced back on BiPAP after receiving Haldol. She was started on Lantus today. 01/21: Patient is on BiPAP and on time examination was on 20/10 100% FiO2. Patient was started on Lantus. Psych consult completed and started on Haldol p.o. twice daily and Mirtazepin PO daily. No acute events reported overnight. Patient's D-dimer is greater than 10,000 started on prophylactic Lovenox as recent CTA chest and bilateral lower extremity Doppler ultrasound were negative. 01/22: Patient has been taken off BiPAP therapy and placed on high flow nasal cannula. Patient has been downgraded to IMCU. Patient's hyponatremia and hypochloremia have worsened. 01/23: Patient was on BiPAP overnight with FiO2 85% and IPAP 20/EPAP 10. Patient currently with high flow nasal cannula 40 L O2 with an FiO2 of 100%. Continue remdesivir and dexamethasone. Patient is s/p Actemra on 01/20. Continue empiric antibiotics per ID recommendations. Continue anticoagulation per protocol. 01/24: Patient is tachycardic and hypertensive and [facility] has opted to add amlodipine. Patient remains on 40 L 100% high flow nasal cannula. Continue remdesivir and dexamethasone. Patient is s/p Actemra on 01/20. Continue empiric antibiotics per ID recommendations. Continue anticoagulation per protocol. 01/25: Patient currently with high flow nasal cannula 40 L/min with FiO2 100%. Continue dexamethasone. Patient has completed remdesivir and s/p Actemra on 01/20. Continue full dose anticoagulation given high elevated D-dimer. Continue to trend inflammatory markers. Prognosis remains guarded. 01/26: Patient currently with high flow nasal cannula 35 L/min and FiO2 90%. Continue dexamethasone. Patient has completed remdesivir and s/p Actemra on 01/20. Continue full dose anticoagulation given high elevated D-dimer. Continue to trend inflammatory markers. Prognosis remains guarded. 01/27: Patient currently with high flow nasal cannula/Vapotherm 35 L/min O2 with FiO2 90%. Patient has completed remdesivir and s/p Actemra on 01/20. Continue full dose anticoagulation given high elevated D-dimer. Continue to trend inflammatory markers. Prognosis remains guarded. 01/28; Patient currently with high flow nasal cannula/Vapotherm 35 L/min O2 with FiO2 90%. Patient has completed remdesivir and s/p Actemra on 01/20. Continue full dose anticoagulation given high elevated D-dimer. Continue to trend inflammatory markers. Prognosis remains guarded. 01/29; patient is currently on 35 L of high flow oxygen. Prognosis guarded. Patient can be transferred to regular floor. 01/30/2021; patient is currently on 35 L of high flow oxygen, FiO2 of 65%. Patient has flat affect and did not talk to me. Patient refused most of her p.o. medications. Patient finished remdesivir, steroid. 01/31/2021; patient is on 35 L of high flow oxygen, FiO2 65%. Patient was calm and cooperative and communicative today. pulmonary is following. Patient finished remdesivir and steroid. 02/01/2021; patient was on 40 L of high flow oxygen.. I have called and discussed with her mother yesterday. Her mother told me patient was last followed at [facility] and I called facility and they told me medication she was on and I put these medications. Patient refused to eat so I put the patient on NG tube feeding for medications. Prognosis is guarded. 02/02/2021; patient is on 4 L of high flow oxygen with FiO2 of 60%. Her outpatient psych medications were reconciled. Patient was taking medications and as needed NG tube. Pulmonary is following the patient. 02/03/21: Patient noted with mild epistaxis this morning we will order some Afrin to help. Continue current management patient is on 35 L high flow. No worsening distress but still with intermittent confusion sometimes takes off the oxygen. Will repeat a trial of Lasix and monitor renal function with a.m. labs. Plan discussed with nurse at bedside. I also encouraged proning again. 02/04: Unfortunately still with hypoxia desaturating required increased to 50 L and 70% will gradually taper down. Patient due to her underlying psych history of schizophrenia is noncompliant. Daughter is working on getting guardianship over the patient. This will likely be a slow process nevertheless we will still obtain a CT of the head to ensure no other pathology. We will get an ABG and a chest x-ray today. 02/05: Patient overnight had an episode where she coughed up blood. H&H has remained stable. She has been since discontinued from full dose anticoagulants to DVT prophylactic dose. Chest x-ray shows mild worsening of congestion. Will discuss with pulmonary if patient will benefit from BiPAP during hours of sleep. Still awaiting information from family on prior psych medications that the patient was on psych review with psychiatry team as her mental status remains a deterrent and an impediment to oxygen management. We will give a trial dose of Lasix x 3 days. Will transfer to [facility] for closer monitoring The high probability of a clinically significant, sudden or life threatening deterioration of the [pulmonary] system(s) required my full and direct attention, intervention and personal management. The aggregate critical care time was [35] minutes. This time is in addition to time spent performing reported procedures but includes the following: [x] Data Review and interpretation [x] Patient assessment and monitoring of vital signs [x] Documentation [x] Medication orders and management History Interval history: Patient seen and examined confused, unfortunately no improvement in CO2. Oxygen demand increase Hospitalist Physical - Physical exam Narrative exam: ON HIGH FLOW The patient appeared well nourished and normally developed. stuporous but re sponsive Vital signs as documented. Head exam is unremarkable. No scleral icterus . Neck is without jugular venous distension, thyromegaly, or carotid bruits. Lungs decreased air entry on both lungs Cardiac exam reveals regular rate and Rhythm. Abdominal exam reveals normal bowel sounds, nontender, no organomegaly. Extremities are nonedematous and both femoral and pedal pulses are normal. HIGHWAY INSPECTOR: Patient was on restraints. Patient is pleasant and communicative today, but still confused. - Constitutional Vitals: Temp Pulse Resp BP Pulse Ox 98.5 F 116 H 20 131/71 92 02/05/21 06:02 02/05/21 06:35 02/05/21 06:35 02/05/21 06:34 02/05/21 06:35 General appearance: Present: no acute distress, well-nourished HEART Score - HEART Score Troponin: Troponin T < 0.010 ng/mL (0.00-0.029) 01/17/21 16:41 Results - Labs CBC & Chem 7: 02/05/21 06:55 02/04/21 14:52 Labs: Laboratory Last Values WBC 4.0 K/mm3 (4.5-11.0) L 02/04/21 14:52 RBC 4.42 M/mm3 (3.65-5.03) 02/04/21 14:52 Hgb 10.0 gm/dl (10.1-14.3) L 02/05/21 06:55 Hct 32.3 % (30.3-42.9) 02/05/21 06:55 MCV 77 fl (79-97) L 02/04/21 14:52 MCH 24 pg (28-32) L 02/04/21 14:52 MCHC 31 % (30-34) 02/04/21 14:52 RDW 15.5 % (13.2-15.2) H 02/04/21 14:52 Plt Count 154 K/mm3 (140-440) 02/04/21 14:52 Lymph % (Auto) 44.9 % (13.4-35.0) H 02/02/21 07:56 Williamson % (Auto) 9.2 % (0.0-7.3) H 02/02/21 07:56 Eos % (Auto) 3.6 % (0.0-4.3) 02/02/21 07:56 Baso % (Auto) 0.3 % (0.0-1.8) 02/02/21 07:56 Lymph # (Auto) 1.4 K/mm3 (1.2-5.4) 02/02/21 07:56 Williamson # (Auto) 0.3 K/mm3 (0.0-0.8) 02/02/21 07:56 Eos # (Auto) 0.1 K/mm3 (0.0-0.4) 02/02/21 07:56 Baso # (Auto) 0.0 K/mm3 (0.0-0.1) 02/02/21 07:56 Add Manual Diff Complete 01/19/21 05:11 Total Counted 100 01/19/21 05:11 Seg Neutrophils % 42.0 % (40.0-70.0) 02/02/21 07:56 Seg Neuts % (Manual) 88.0 % (40.0-70.0) H 01/19/21 05:11 Lymphocytes % (Manual) 10.0 % (13.4-35.0) L 01/19/21 05:11 Monocytes % (Manual) 2.0 % (0.0-7.3) 01/19/21 05:11 Nucleated RBC % Not Reportable 01/19/21 05:11 Seg Neutrophils # 1.3 K/mm3 (1.8-7.7) L 02/02/21 07:56 Seg Neutrophils # Man 12.5 K/mm3 (1.8-7.7) H 01/19/21 05:11 Band Neutrophils # 0.0 K/mm3 01/19/21 05:11 Lymphocytes # (Manual) 1.4 K/mm3 (1.2-5.4) 01/19/21 05:11 Abs React Lymphs (Man) 0.0 K/mm3 01/19/21 05:11 Monocytes # (Manual) 0.3 K/mm3 (0.0-0.8) 01/19/21 05:11 Eosinophils # (Manual) 0.0 K/mm3 (0.0-0.4) 01/19/21 05:11 Basophils # (Manual) 0.0 K/mm3 (0.0-0.1) 01/19/21 05:11 Metamyelocytes # 0.0 K/mm3 01/19/21 05:11 Myelocytes # 0.0 K/mm3 01/19/21 05:11 Promyelocytes # 0.0 K/mm3 01/19/21 05:11 Blast Cells # 0.0 K/mm3 01/19/21 05:11 WBC Morphology Not Reportable 01/19/21 05:11 Hypersegmented Neuts Not Reportable 01/19/21 05:11 Hyposegmented Neuts Not Reportable 01/19/21 05:11 Hypogranular Neuts Not Reportable 01/19/21 05:11 Smudge Cells Not Reportable 01/19/21 05:11 Toxic Granulation Not Reportable 01/19/21 05:11 Toxic Vacuolation Not Reportable 01/19/21 05:11 Dohle Bodies Not Reportable 01/19/21 05:11 Pelger-Huet Anomaly Not Reportable 01/19/21 05:11 Inder Rods Not Reportable 01/19/21 05:11 Platelet Estimate Consistent w auto 01/19/21 05:11 Clumped Platelets Not Reportable 01/19/21 05:11 Plt Clumps, EDTA Not Reportable 01/19/21 05:11 Large Platelets Not Reportable 01/19/21 05:11 Giant Platelets Not Reportable 01/19/21 05:11 Platelet Satelliting Not Reportable 01/19/21 05:11 Plt Morphology Comment Not Reportable 01/19/21 05:11 RBC Morphology Not Reportable 01/19/21 05:11 Dimorphic RBCs Not Reportable 01/19/21 05:11 Polychromasia Not Reportable 01/19/21 05:11 Hypochromasia 1+ 01/19/21 05:11 Poikilocytosis Not Reportable 01/19/21 05:11 Anisocytosis Not Reportable 01/19/21 05:11 Microcytosis Not Reportable 01/19/21 05:11 Macrocytosis Not Reportable 01/19/21 05:11 Spherocytes Not Reportable 01/19/21 05:11 Pappenheimer Bodies Not Reportable 01/19/21 05:11 Sickle Cells Not Reportable 01/19/21 05:11 Target Cells Not Reportable 01/19/21 05:11 Tear Drop Cells Not Reportable 01/19/21 05:11 Ovalocytes Not Reportable 01/19/21 05:11 Helmet Cells Not Reportable 01/19/21 05:11 Navarro-Carpio Bodies Not Reportable 01/19/21 05:11 [place] Rings Not Reportable 01/19/21 05:11 Giorgio Cells Not Reportable 01/19/21 05:11 Bite Cells Not Reportable 01/19/21 05:11 Crenated Cell Not Reportable 01/19/21 05:11 Elliptocytes Not Reportable 01/19/21 05:11 Acanthocytes (Spur) Not Reportable 01/19/21 05:11 Rouleaux Not Reportable 01/19/21 05:11 Hemoglobin C Crystals Not Reportable 01/19/21 05:11 Schistocytes Not Reportable 01/19/21 05:11 Malaria parasites Not Reportable 01/19/21 05:11 Chai Bodies Not Reportable 01/19/21 05:11 Hem Pathologist Commnt No 01/19/21 05:11 PT 13.6 Sec. (12.2-14.9) 02/04/21 14:52 INR 1.06 (0.87-1.13) 02/04/21 14:52 APTT 30.7 Sec. (24.2-36.6) 02/04/21 14:52 D-Dimer 1884.49 ng/mlDDU (0-234) H 01/28/21 08:46 ABG pH 7.418 pH Units (7.350-7.450) 02/04/21 12:45 ABG pCO2 48.7 mm Hg 02/04/21 12:45 ABG pO2 65.6 mm Hg (80.0-90.0) L 02/04/21 12:45 ABG HCO3 30.8 mmol/L (20.0-26.0) H 02/04/21 12:45 ABG O2 Saturation 94.0 % (95.0-99.0) L 02/04/21 12:45 ABG O2 Content 13.4 (0.0-44) 02/04/21 12:45 ABG Base Excess 5.5 mmol/L (-2.0-3.0) H 02/04/21 12:45 ABG Hemoglobin 10.3 gm/dl (12.0-16.0) L 02/04/21 12:45 ABG Carboxyhemoglobin 1.4 % (0.0-5.0) 02/04/21 12:45 ABG Methemoglobin 0.4 % (0.0-1.5) 02/04/21 12:45 Oxyhemoglobin 92.3 % (95.0-99.0) L 02/04/21 12:45 FiO2 40 % 02/04/21 12:45 Sodium 142 mmol/L (137-145) 02/04/21 05:41 Potassium 4.1 mmol/L (3.6-5.0) 02/04/21 05:41 Chloride 103.9 mmol/L (98-107) 02/04/21 05:41 Carbon Dioxide 31 mmol/L (22-30) H 02/04/21 05:41 Anion Gap 11 mmol/L 02/04/21 05:41 BUN 19 mg/dL (7-17) H 02/04/21 05:41 Creatinine 0.6 mg/dL (0.6-1.2) 02/04/21 14:52 Estimated GFR > 60 ml/min 02/04/21 14:52 BUN/Creatinine Ratio 38 % 02/04/21 05:41 Glucose 184 mg/dL (65-100) H 02/04/21 05:41 POC Glucose 204 mg/dL (70-105) H 02/05/21 07:49 Lactic Acid 1.70 mmol/L (0.7-2.0) 01/17/21 16:41 Calcium 8.4 mg/dL (8.4-10.2) 02/04/21 05:41 Ferritin 797.7 ng/mL (10.0-200.0) H 01/28/21 08:46 Total Bilirubin 0.30 mg/dL (0.1-1.2) 01/21/21 11:29 AST 34 units/L (5-40) 01/21/21 11:29 ALT 38 units/L (7-56) 01/21/21 11:29 Alkaline Phosphatase 117 units/L (35-129) 01/21/21 11:29 Ammonia 43.0 umol/L (25-60) 02/04/21 14:52 Lactate Dehydrogenase 556 units/L (91-180) H 01/28/21 08:46 Troponin T < 0.010 ng/mL (0.00-0.029) 01/17/21 16:41 C-Reactive Protein 0.20 mg/dL (0.00-1.30) 01/28/21 08:46 NT-Pro-B Natriuret Pep 40.88 pg/mL (0-900) 01/17/21 16:41 Total Protein 7.3 g/dL (6.3-8.2) 01/21/21 11:29 Albumin 3.4 g/dL (3.9-5) L 01/21/21 11:29 Albumin/Globulin Ratio 0.9 % 01/21/21 11:29 Procalcitonin 0.39 ng/mL (<0.15) 01/17/21 17:46 Coronavirus (PCR) Positive (Negative) A 01/17/21 09:25 Estrada/IV: Voiding Method External Female Catheter Active Medications - Current Medications Current Medications: Generic Name Dose Route Start Last Admin Trade Name Freq PRN Reason Stop Dose Admin Acetaminophen 650 mg 01/18/21 00:36 01/22/21 23:46 Acetaminophen 325 Mg Tab PO 650 mg Q4H PRN Administration Pain MILD(1-3)/Fever >100.5/PAN Albuterol/Ipratropium 1 ampul 02/01/21 14:00 02/05/21 08:51 Ipratropium/Albuterol Sulfate 3 Ml Ampul.Neb IH 1 ampul TIDRT PJ Administration Apixaban 2.5 mg 02/04/21 22:00 02/04/21 22:57 Apixaban 2.5 Mg Tab PO 2.5 mg Q12HR PJ Administration Protocol Aripiprazole 15 mg 01/31/21 13:00 02/04/21 11:07 Aripiprazole 15 Mg Tab PO 15 mg QDAY PJ Administration Ascorbic Acid 1,000 mg 02/04/21 10:00 02/04/21 22:57 Ascorbic Acid 500 Mg Tab PO 1,000 mg BID PJ Administration Cholecalciferol 5,000 unit 02/04/21 10:00 02/04/21 11:02 Cholecalciferol (Vit D3) 5,000 Unit Tab PO 5,000 unit DAILY PJ Administration Divalproex Sodium 500 mg 01/31/21 12:00 02/04/21 11:03 Divalproex Er 500 Mg Tab PO 500 mg QDAY PJ Administration Famotidine 20 mg 01/18/21 10:00 02/04/21 22:56 Famotidine 20 Mg Tab PO 20 mg BID PJ Administration Hydralazine HCl 10 mg 01/18/21 00:38 01/24/21 23:12 Hydralazine 20 Mg/1 Ml Inj IV 10 mg Q6H PRN Administration htn Hydromorphone HCl 0.5 mg 01/20/21 11:00 Hydromorphone 1 Mg/1 Ml Inj IV Q6H PRN Pain , Severe (7-10) Hydrophilic Ointment 1 applic 02/03/21 12:00 Petrolatum,White 30 Gm Oint TP PRN PRN Skin Irritation Insulin Glargine 20 units 01/20/21 22:00 02/04/21 23:26 Insulin Glargine 100 Units/Ml SUB-Q 20 units QHS PJ Administration Insulin Human Lispro 0 unit 02/01/21 11:30 02/05/21 08:22 Insulin Lispro 100 Unit/Ml SUB-Q 4 unit ACHS PJ Administration Protocol Metoprolol Tartrate 12.5 mg 02/01/21 12:00 02/04/21 22:57 Metoprolol Tartrate 25 Mg Tab PO Not Given BID PJ Mirtazapine 7.5 mg 01/21/21 22:00 02/04/21 22:57 Mirtazapine 15 Mg Tab PO 7.5 mg QHS PJ Administration Ondansetron HCl 4 mg 01/18/21 00:36 Ondansetron 4 Mg/2 Ml Inj IV Q8H PRN Nausea And Vomiting Oxymetazoline HCl 2 spray 02/03/21 12:00 02/03/21 13:17 Oxymetazoline 0.05% Nasal [place] NS 2 spray Q12H PRN Administration Congestion Paliperidone 6 mg 01/31/21 13:00 02/04/21 11:07 Paliperidone Er 3 Mg Tab PO 6 mg QDAY PJ Administration Sodium Chloride 10 ml 01/18/21 10:00 02/04/21 23:00 Sodium Chloride 0.9% 10 Ml Flush Syringe IV 10 ml BID PJ Administration Sodium Chloride 10 ml 01/18/21 00:36 Sodium Chloride 0.9% 10 Ml Flush Syringe IV PRN PRN LINE FLUSH Zinc Sulfate 220 mg 02/04/21 10:00 02/04/21 11:04 Zinc Sulfate 220 Mg Cap PO 220 mg QDAY PJ Administration Nutrition/Malnutrition Assess - Dietary Evaluation Nutrition/Malnutrition Findings: Nutrition Notes Start: 01/24/21 10:40 Freq: Status: Active Protocol: Document 02/04/21 08:44 AT (Rec: 02/04/21 08:47 AT [id number]) Co-Sign 02/04/21 08:44 LP Nutrition Notes Initial or Follow up Reassessment Current Diagnosis Respiratory Failure Other Pertinent Diagnosis pneu, COVID-19(+), AMS Current Diet Cardiac diet with Consistent CHO modifications Labs/Tests BUN 19 Cr 0.5 BG 184 Pertinent Medications Reviewed Height 5 ft 4 in Weight 93.3 kg [place] Body Weight (kg) 54.54 BMI 35.3 Weight Status Obese Subjective/Other Information Follow up for stable intakes and ONS tolerance. Per chart, pt is consuming 92% of meals on average and 100% of ONS. Pt is s/p Decadron therapy, which may have contributed to weight fluctuation. Per RN, pt consumed 25% of breakfast this morning and AMS affecting appetite contributing to inconsistent intake. Per RN, pt is consuming 100% of ONS. Percent of energy/protein needs met: 68%/70% Burn Absent Trauma Absent GI Symptoms None Current % PO Fair (50-74%) Minimum of two criteria No Energy Intake (non-severe) <75% Estimated Energy Requirement >7 days #1 Nutrition Diagnosis Inadequate oral intake Diagnosis Progress(for reassessment Continues documentation) Is patient on ventilator? No Is Patient Ambulatory and/or Out of Bed No REE-([facility]-confined to bed) 1813.860 Kcal/Kg value to use for calculation 15 Approximate Energy Requirements Using 1400 kcal/Kg Calculation Used for Recommendations Kcal/kg Additional Notes PRO needs: 59-74g (0.8-1g/kg AdBW 74 kg) Fluid needs: 1 mL/kcal or per MD Nutrition Intervention Change Diet Order: Continue current Add Supplement/Snack (indicate name/kcal Glucerna BID /protein ) Provides kCal: 440 Provides Protein (gm) 20 Goal #1 Meet at least 75% of energy and protein needs via PO and ONS intakes Anticipated Discharge Needs: Cardiac/Consistent CHO Follow-Up By: 02/06/21 Additional Comments F/U for stable intakes
[2021-02-05] MEDS: ARIPiprazole 15 MG TAB PO SCH (09:33)
[2021-02-05] MEDS: DIVALPROEX ER 500 MG TAB PO SCH (09:33)
[2021-02-05] MEDS: METOPROLOL TARTRATE 25 MG TAB PO SCH ×2 (09:33→21:53)
[2021-02-05] MEDS: FAMOTIDINE 20 MG TAB PO SCH ×2 (09:33→21:52)
[2021-02-05] MEDS: CHOLECALCIFEROL (VIT D3) 5,000 UNIT TAB PO SCH (09:33)
[2021-02-05] MEDS: PALIPERIDONE ER 3 MG TAB PO SCH (09:33)
[2021-02-05] MEDS: APIXABAN 2.5 MG TAB PO SCH ×2 (09:33→21:53)
[2021-02-05] MEDS: ZINC SULFATE 220 MG CAP PO SCH (09:34)
[2021-02-05] MEDS: ASCORBIC ACID 500 MG TAB PO SCH ×2 (09:34→21:56)
[2021-02-05] MEDS: FUROSEMIDE 40 MG/4 ML INJ IV SCH (09:48)
--- NOTE | 2021-02-05 10:55 | Progress Note ---
Assessment and Plan - Patient Problems (1) Acute respiratory failure due to COVID-19 Current Visit: Yes Status: Acute (2) Acute respiratory failure with hypoxia Current Visit: Yes Status: Acute (3) COVID-19 Current Visit: Yes Status: Acute (4) Hypoxia Current Visit: Yes Status: Acute (5) Pneumonia Current Visit: Yes Status: Acute (6) Respiratory failure Current Visit: Yes Status: Acute (7) Schizophrenia Current Visit: Yes Status: Acute (8) Cough with hemoptysis Current Visit: Yes Status: Acute Subjective Principal diagnosis: Covid-19 Interval history: episode from last night/ early this am noted. Reportedly coughed up blood, no evidence of active bleeding still on hiflo at 80% now Objective Vital Signs - 12hr 02/04/21 02/04/21 02/05/21 22:56 22:58 02:25 Temperature Pulse Rate 119 H 121 H 111 H Respiratory 22 22 18 Rate Blood Pressure O2 Sat by Pulse 91 92 94 Oximetry 02/05/21 02/05/21 02/05/21 02:45 06:02 06:34 Temperature 98.5 F Pulse Rate 115 H Respiratory 26 H 20 Rate Blood Pressure 127/82 131/71 O2 Sat by Pulse 97 90 Oximetry 02/05/21 02/05/21 02/05/21 06:35 08:52 09:33 Temperature Pulse Rate 116 H 116 H Respiratory 20 Rate Blood Pressure 131/71 O2 Sat by Pulse 92 86 Oximetry Constitutional: no acute distress, alert Eyes: non-icteric ENT: oropharynx moist Neck: supple, other (large in circumference) Effort: normal Ascultation: Bilateral: clear, diminished breath sounds Cardiovascular: other (tachy, RR; no mrg) Gastrointestinal: normoactive bowel sounds, soft, non-tender, non-distended Integumentary: normal Extremities: no cyanosis, no edema, pink and warm Neurologic: normal mental status, non-focal exam, pupils equal and round Psychiatric: mood appropriate, affect normal CBC and BMP: 02/05/21 10:42 02/04/21 14:52 ABG, PT/INR, D-dimer: ABG ABG pH 7.418 pH Units (7.350-7.450) 02/04/21 12:45 ABG pCO2 48.7 mm Hg 02/04/21 12:45 ABG pO2 65.6 mm Hg (80.0-90.0) L 02/04/21 12:45 ABG O2 Saturation 94.0 % (95.0-99.0) L 02/04/21 12:45 PT/INR, D-dimer PT 13.6 Sec. (12.2-14.9) 02/04/21 14:52 INR 1.06 (0.87-1.13) 02/04/21 14:52 D-Dimer 1884.49 ng/mlDDU (0-234) H 01/28/21 08:46 Abnormal lab findings: Abnormal Labs 01/17/21 01/17/21 01/17/21 09:25 16:41 16:41 WBC RBC 5.23 H Hgb MCV 76 L MCH 24 L RDW Lymph % (Auto) 9.4 L [place] % (Auto) Lymph # (Auto) 0.8 L Seg Neutrophils % 85.4 H Seg Neuts % (Manual) Lymphocytes % (Manual) Seg Neutrophils # Seg Neutrophils # Man D-Dimer ABG pH ABG pO2 ABG HCO3 ABG O2 Saturation ABG Base Excess ABG Hemoglobin Oxyhemoglobin Sodium 128 L Chloride 90.8 L Carbon Dioxide BUN Creatinine Glucose 372 H POC Glucose Calcium Ferritin AST 98 H Lactate Dehydrogenase C-Reactive Protein Total Protein Albumin 3.2 L Coronavirus (PCR) Positive A 01/17/21 01/17/21 01/17/21 17:46 17:46 17:46 WBC RBC Hgb MCV MCH RDW Lymph % (Auto) [place] % (Auto) Lymph # (Auto) Seg Neutrophils % Seg Neuts % (Manual) Lymphocytes % (Manual) Seg Neutrophils # Seg Neutrophils # Man D-Dimer 1058.54 H ABG pH ABG pO2 ABG HCO3 ABG O2 Saturation ABG Base Excess ABG Hemoglobin Oxyhemoglobin Sodium Chloride Carbon Dioxide BUN Creatinine Glucose 369 H POC Glucose Calcium Ferritin 668.4 H AST Lactate Dehydrogenase 519 H C-Reactive Protein 19.20 H Total Protein Albumin Coronavirus (PCR) 01/18/21 01/18/21 01/19/21 09:01 17:18 05:11 WBC 14.2 H RBC Hgb MCV 74 L MCH 23 L RDW Lymph % (Auto) [place] % (Auto) Lymph # (Auto) Seg Neutrophils % Seg Neuts % (Manual) 88.0 H Lymphocytes % (Manual) 10.0 L Seg Neutrophils # Seg Neutrophils # Man 12.5 H D-Dimer ABG pH 7.461 H ABG pO2 53.1 L ABG HCO3 ABG O2 Saturation 89.4 L ABG Base Excess ABG Hemoglobin Oxyhemoglobin 88.0 L Sodium 132 L Chloride 93.6 L Carbon Dioxide BUN 18 H Creatinine Glucose 367 H POC Glucose Calcium 7.8 L Ferritin AST Lactate Dehydrogenase C-Reactive Protein Total Protein Albumin Coronavirus (PCR) 01/19/21 01/19/21 01/19/21 05:11 11:06 14:43 WBC RBC Hgb MCV MCH RDW Lymph % (Auto) [place] % (Auto) Lymph # (Auto) Seg Neutrophils % Seg Neuts % (Manual) Lymphocytes % (Manual) Seg Neutrophils # Seg Neutrophils # Man D-Dimer ABG pH ABG pO2 ABG HCO3 ABG O2 Saturation ABG Base Excess ABG Hemoglobin Oxyhemoglobin Sodium Chloride Carbon Dioxide BUN 18 H Creatinine Glucose 304 H 379 H POC Glucose 382 H Calcium 8.3 L Ferritin AST 92 H 96 H Lactate Dehydrogenase C-Reactive Protein Total Protein Albumin 3.0 L 3.0 L Coronavirus (PCR) 01/19/21 01/19/21 01/20/21 16:18 22:18 07:31 WBC RBC Hgb MCV MCH RDW Lymph % (Auto) [place] % (Auto) Lymph # (Auto) Seg Neutrophils % Seg Neuts % (Manual) Lymphocytes % (Manual) Seg Neutrophils # Seg Neutrophils # Man D-Dimer ABG pH ABG pO2 ABG HCO3 ABG O2 Saturation ABG Base Excess ABG Hemoglobin Oxyhemoglobin Sodium Chloride Carbon Dioxide BUN Creatinine Glucose POC Glucose 374 H 341 H 344 H Calcium Ferritin AST Lactate Dehydrogenase C-Reactive Protein Total Protein Albumin Coronavirus (PCR) 01/20/21 01/20/21 01/20/21 07:33 12:14 13:54 WBC RBC Hgb MCV MCH RDW Lymph % (Auto) [place] % (Auto) Lymph # (Auto) Seg Neutrophils % Seg Neuts % (Manual) Lymphocytes % (Manual) Seg Neutrophils # Seg Neutrophils # Man D-Dimer ABG pH ABG pO2 ABG HCO3 ABG O2 Saturation ABG Base Excess ABG Hemoglobin Oxyhemoglobin Sodium Chloride Carbon Dioxide BUN 32 H 31 H Creatinine Glucose 343 H 396 H POC Glucose 365 H Calcium Ferritin AST 57 H 54 H Lactate Dehydrogenase C-Reactive Protein Total Protein 8.3 H Albumin 2.7 L 3.1 L Coronavirus (PCR) 01/20/21 01/20/21 01/21/21 18:28 21:25 04:45 WBC RBC Hgb MCV MCH RDW Lymph % (Auto) [place] % (Auto) Lymph # (Auto) Seg Neutrophils % Seg Neuts % (Manual) Lymphocytes % (Manual) Seg Neutrophils # Seg Neutrophils # Man D-Dimer ABG pH ABG pO2 ABG HCO3 ABG O2 Saturation ABG Base Excess ABG Hemoglobin Oxyhemoglobin Sodium Chloride Carbon Dioxide 31 H BUN 41 H Creatinine Glucose 377 H POC Glucose 403 H 340 H Calcium Ferritin AST Lactate Dehydrogenase C-Reactive Protein Total Protein 8.3 H Albumin 3.0 L Coronavirus (PCR) 01/21/21 01/21/21 01/21/21 04:45 04:45 04:45 WBC RBC Hgb MCV MCH RDW Lymph % (Auto) [place] % (Auto) Lymph # (Auto) Seg Neutrophils % Seg Neuts % (Manual) Lymphocytes % (Manual) Seg Neutrophils # Seg Neutrophils # Man D-Dimer > 54876 H ABG pH ABG pO2 ABG HCO3 ABG O2 Saturation ABG Base Excess ABG Hemoglobin Oxyhemoglobin Sodium Chloride Carbon Dioxide BUN Creatinine Glucose POC Glucose Calcium Ferritin 1688.0 H AST Lactate Dehydrogenase 649 H C-Reactive Protein 17.00 H Total Protein Albumin Coronavirus (PCR) 01/21/21 01/21/21 01/21/21 09:45 11:29 12:09 WBC RBC Hgb MCV MCH RDW Lymph % (Auto) [place] % (Auto) Lymph # (Auto) Seg Neutrophils % Seg Neuts % (Manual) Lymphocytes % (Manual) Seg Neutrophils # Seg Neutrophils # Man D-Dimer ABG pH ABG pO2 ABG HCO3 ABG O2 Saturation ABG Base Excess ABG Hemoglobin Oxyhemoglobin Sodium 151 H Chloride Carbon Dioxide BUN 40 H Creatinine Glucose 412 H POC Glucose 401 H 372 H Calcium Ferritin AST Lactate Dehydrogenase C-Reactive Protein Total Protein Albumin 3.4 L Coronavirus (PCR) 01/21/21 01/21/21 01/22/21 18:26 21:09 02:00 WBC RBC Hgb MCV MCH RDW Lymph % (Auto) [place] % (Auto) Lymph # (Auto) Seg Neutrophils % Seg Neuts % (Manual) Lymphocytes % (Manual) Seg Neutrophils # Seg Neutrophils # Man D-Dimer ABG pH ABG pO2 ABG HCO3 ABG O2 Saturation ABG Base Excess ABG Hemoglobin Oxyhemoglobin Sodium Chloride Carbon Dioxide BUN Creatinine Glucose POC Glucose 376 H 322 H 231 H Calcium Ferritin AST Lactate Dehydrogenase C-Reactive Protein Total Protein Albumin Coronavirus (PCR) 01/22/21 01/22/21 01/22/21 05:24 08:25 08:25 WBC RBC 5.44 H Hgb MCV 75 L MCH 23 L RDW 15.5 H Lymph % (Auto) [place] % (Auto) Lymph # (Auto) Seg Neutrophils % Seg Neuts % (Manual) Lymphocytes % (Manual) Seg Neutrophils # Seg Neutrophils # Man D-Dimer ABG pH ABG pO2 ABG HCO3 ABG O2 Saturation ABG Base Excess ABG Hemoglobin Oxyhemoglobin Sodium 155 H Chloride 112.4 H Carbon Dioxide BUN 33 H Creatinine Glucose 274 H POC Glucose 275 H Calcium Ferritin AST Lactate Dehydrogenase C-Reactive Protein Total Protein Albumin Coronavirus (PCR) 01/22/21 01/22/21 01/22/21 11:53 16:03 21:41 WBC RBC Hgb MCV MCH RDW Lymph % (Auto) [place] % (Auto) Lymph # (Auto) Seg Neutrophils % Seg Neuts % (Manual) Lymphocytes % (Manual) Seg Neutrophils # Seg Neutrophils # Man D-Dimer ABG pH ABG pO2 ABG HCO3 ABG O2 Saturation ABG Base Excess ABG Hemoglobin Oxyhemoglobin Sodium Chloride Carbon Dioxide BUN Creatinine Glucose POC Glucose 265 H 293 H 279 H Calcium Ferritin AST Lactate Dehydrogenase C-Reactive Protein Total Protein Albumin Coronavirus (PCR) 01/23/21 01/23/21 01/23/21 02:03 05:46 05:59 WBC RBC Hgb MCV MCH RDW Lymph % (Auto) [place] % (Auto) Lymph # (Auto) Seg Neutrophils % Seg Neuts % (Manual) Lymphocytes % (Manual) Seg Neutrophils # Seg Neutrophils # Man D-Dimer ABG pH ABG pO2 ABG HCO3 ABG O2 Saturation ABG Base Excess ABG Hemoglobin Oxyhemoglobin Sodium Chloride Carbon Dioxide BUN Creatinine Glucose POC Glucose 268 H 303 H Calcium Ferritin 1116.0 H AST Lactate Dehydrogenase C-Reactive Protein Total Protein Albumin Coronavirus (PCR) 01/23/21 01/23/21 01/23/21 05:59 07:42 09:11 WBC RBC Hgb MCV MCH RDW Lymph % (Auto) [place] % (Auto) Lymph # (Auto) Seg Neutrophils % Seg Neuts % (Manual) Lymphocytes % (Manual) Seg Neutrophils # Seg Neutrophils # Man D-Dimer ABG pH ABG pO2 ABG HCO3 ABG O2 Saturation ABG Base Excess ABG Hemoglobin Oxyhemoglobin Sodium Chloride Carbon Dioxide BUN Creatinine Glucose POC Glucose 291 H 285 H Calcium Ferritin AST Lactate Dehydrogenase 680 H C-Reactive Protein 5.80 H Total Protein Albumin Coronavirus (PCR) 01/23/21 01/23/21 01/23/21 14:06 17:05 17:59 WBC RBC Hgb MCV MCH RDW Lymph % (Auto) [place] % (Auto) Lymph # (Auto) Seg Neutrophils % Seg Neuts % (Manual) Lymphocytes % (Manual) Seg Neutrophils # Seg Neutrophils # Man D-Dimer ABG pH ABG pO2 ABG HCO3 ABG O2 Saturation ABG Base Excess ABG Hemoglobin Oxyhemoglobin Sodium Chloride Carbon Dioxide BUN Creatinine Glucose POC Glucose 228 H 300 H 278 H Calcium Ferritin AST Lactate Dehydrogenase C-Reactive Protein Total Protein Albumin Coronavirus (PCR) 01/23/21 01/24/21 01/24/21 21:43 02:14 05:15 WBC RBC Hgb MCV MCH RDW Lymph % (Auto) [place] % (Auto) Lymph # (Auto) Seg Neutrophils % Seg Neuts % (Manual) Lymphocytes % (Manual) Seg Neutrophils # Seg Neutrophils # Man D-Dimer ABG pH ABG pO2 ABG HCO3 ABG O2 Saturation ABG Base Excess ABG Hemoglobin Oxyhemoglobin Sodium Chloride Carbon Dioxide BUN Creatinine Glucose POC Glucose 223 H 427 H 392 H Calcium Ferritin AST Lactate Dehydrogenase C-Reactive Protein Total Protein Albumin Coronavirus (PCR) 01/24/21 01/24/21 01/24/21 07:03 07:03 09:10 WBC RBC 5.49 H Hgb MCV 75 L MCH 23 L RDW Lymph % (Auto) 7.0 L [place] % (Auto) Lymph # (Auto) 0.5 L Seg Neutrophils % 86.1 H Seg Neuts % (Manual) Lymphocytes % (Manual) Seg Neutrophils # Seg Neutrophils # Man D-Dimer ABG pH ABG pO2 ABG HCO3 ABG O2 Saturation ABG Base Excess ABG Hemoglobin Oxyhemoglobin Sodium 149 H Chloride 111.4 H Carbon Dioxide BUN 24 H Creatinine Glucose 339 H POC Glucose 284 H Calcium Ferritin AST Lactate Dehydrogenase C-Reactive Protein Total Protein Albumin Coronavirus (PCR) 01/24/21 01/24/2101/24/21 13:47 18:30 21:58 WBC RBC Hgb MCV MCH RDW Lymph % (Auto) [place] % (Auto) Lymph # (Auto) Seg Neutrophils % Seg Neuts % (Manual) Lymphocytes % (Manual) Seg Neutrophils # Seg Neutrophils # Man D-Dimer ABG pH ABG pO2 ABG HCO3 ABG O2 Saturation ABG Base Excess ABG Hemoglobin Oxyhemoglobin Sodium Chloride Carbon Dioxide BUN Creatinine Glucose POC Glucose 317 H 180 H 262 H Calcium Ferritin AST Lactate Dehydrogenase C-Reactive Protein Total Protein Albumin Coronavirus (PCR) 01/25/21 01/25/21 01/25/21 01:22 05:35 08:36 WBC RBC Hgb MCV MCH RDW Lymph % (Auto) [place] % (Auto) Lymph # (Auto) Seg Neutrophils % Seg Neuts % (Manual) Lymphocytes % (Manual) Seg Neutrophils # Seg Neutrophils # Man D-Dimer ABG pH ABG pO2 ABG HCO3 ABG O2 Saturation ABG Base Excess ABG Hemoglobin Oxyhemoglobin Sodium Chloride Carbon Dioxide BUN Creatinine Glucose POC Glucose 280 H 243 H 216 H Calcium Ferritin AST Lactate Dehydrogenase C-Reactive Protein Total Protein Albumin Coronavirus (PCR) 01/25/21 01/25/21 01/25/21 15:14 15:14 15:14 WBC RBC Hgb MCV MCH RDW Lymph % (Auto) [place] % (Auto) Lymph # (Auto) Seg Neutrophils % Seg Neuts % (Manual) Lymphocytes % (Manual) Seg Neutrophils # Seg Neutrophils # Man D-Dimer 6312.54 H ABG pH ABG pO2 ABG HCO3 ABG O2 Saturation ABG Base Excess ABG Hemoglobin Oxyhemoglobin Sodium 146 H Chloride 108.1 H Carbon Dioxide BUN 19 H Creatinine Glucose 287 H POC Glucose Calcium 8.3 L Ferritin 869.5 H AST Lactate Dehydrogenase 685 H C-Reactive Protein Total Protein Albumin Coronavirus (PCR) 01/25/21 01/25/21 01/26/21 16:06 21:18 01:47 WBC RBC Hgb MCV MCH RDW Lymph % (Auto) [place] % (Auto) Lymph # (Auto) Seg Neutrophils % Seg Neuts % (Manual) Lymphocytes % (Manual) Seg Neutrophils # Seg Neutrophils # Man D-Dimer ABG pH ABG pO2 ABG HCO3 ABG O2 Saturation ABG Base Excess ABG Hemoglobin Oxyhemoglobin Sodium Chloride Carbon Dioxide BUN Creatinine Glucose POC Glucose 267 H 197 H 255 H Calcium Ferritin AST Lactate Dehydrogenase C-Reactive Protein Total Protein Albumin Coronavirus (PCR) 01/26/21 01/26/21 01/26/21 05:23 05:23 05:23 WBC RBC Hgb MCV MCH RDW Lymph % (Auto) [place] % (Auto) Lymph # (Auto) Seg Neutrophils % Seg Neuts % (Manual) Lymphocytes % (Manual) Seg Neutrophils # Seg Neutrophils # Man D-Dimer 5809.58 H ABG pH ABG pO2 ABG HCO3 ABG O2 Saturation ABG Base Excess ABG Hemoglobin Oxyhemoglobin Sodium 149 H Chloride 109.3 H Carbon Dioxide BUN 24 H Creatinine Glucose 362 H POC Glucose Calcium Ferritin 877.1 H AST Lactate Dehydrogenase 655 H C-Reactive Protein Total Protein Albumin Coronavirus (PCR) 01/26/21 01/26/21 01/26/21 05:23 06:06 09:28 WBC RBC 5.49 H Hgb MCV 77 L MCH 23 L RDW Lymph % (Auto) [place] % (Auto) Lymph # (Auto) 0.8 L Seg Neutrophils % 78.9 H Seg Neuts % (Manual) Lymphocytes % (Manual) Seg Neutrophils # Seg Neutrophils # Man D-Dimer ABG pH ABG pO2 ABG HCO3 ABG O2 Saturation ABG Base Excess ABG Hemoglobin Oxyhemoglobin Sodium Chloride Carbon Dioxide BUN Creatinine Glucose POC Glucose 387 H 308 H Calcium Ferritin AST Lactate Dehydrogenase C-Reactive Protein Total Protein Albumin Coronavirus (PCR) 01/26/21 01/26/21 01/27/21 15:56 21:28 02:51 WBC RBC Hgb MCV MCH RDW Lymph % (Auto) [place] % (Auto) Lymph # (Auto) Seg Neutrophils % Seg Neuts % (Manual) Lymphocytes % (Manual) Seg Neutrophils # Seg Neutrophils # Man D-Dimer ABG pH ABG pO2 ABG HCO3 ABG O2 Saturation ABG Base Excess ABG Hemoglobin Oxyhemoglobin Sodium Chloride Carbon Dioxide BUN Creatinine Glucose POC Glucose 172 H 316 H 267 H Calcium Ferritin AST Lactate Dehydrogenase C-Reactive Protein Total Protein Albumin Coronavirus (PCR) 01/27/21 01/27/21 01/27/21 04:22 04:22 04:22 WBC RBC Hgb MCV MCH RDW Lymph % (Auto) [place] % (Auto) Lymph # (Auto) Seg Neutrophils % Seg Neuts % (Manual) Lymphocytes % (Manual) Seg Neutrophils # Seg Neutrophils # Man D-Dimer 4046.06 H ABG pH ABG pO2 ABG HCO3 ABG O2 Saturation ABG Base Excess ABG Hemoglobin Oxyhemoglobin Sodium Chloride 107.7 H Carbon Dioxide BUN 30 H Creatinine Glucose 281 H POC Glucose Calcium Ferritin 812.2 H AST Lactate Dehydrogenase 570 H C-Reactive Protein Total Protein Albumin Coronavirus (PCR) 01/27/21 01/27/21 01/27/21 04:22 05:55 12:00 WBC RBC 5.15 H Hgb MCV 76 L MCH 23 L RDW 15.5 H Lymph % (Auto) 12.7 L [place] % (Auto) Lymph # (Auto) 0.9 L Seg Neutrophils % 81.3 H Seg Neuts % (Manual) Lymphocytes % (Manual) Seg Neutrophils # Seg Neutrophils # Man D-Dimer ABG pH ABG pO2 ABG HCO3 ABG O2 Saturation ABG Base Excess ABG Hemoglobin Oxyhemoglobin Sodium Chloride Carbon Dioxide BUN Creatinine Glucose POC Glucose 275 H 121 H Calcium Ferritin AST Lactate Dehydrogenase C-Reactive Protein Total Protein Albumin Coronavirus (PCR) 01/27/21 01/27/21 01/28/21 17:32 21:23 02:08 WBC RBC Hgb MCV MCH RDW Lymph % (Auto) [place] % (Auto) Lymph # (Auto) Seg Neutrophils % Seg Neuts % (Manual) Lymphocytes % (Manual) Seg Neutrophils # Seg Neutrophils # Man D-Dimer ABG pH ABG pO2 ABG HCO3 ABG O2 Saturation ABG Base Excess ABG Hemoglobin Oxyhemoglobin Sodium Chloride Carbon Dioxide BUN Creatinine Glucose POC Glucose 195 H 179 H 210 H Calcium Ferritin AST Lactate Dehydrogenase C-Reactive Protein Total Protein Albumin Coronavirus (PCR) 01/28/21 01/28/21 01/28/21 05:09 08:44 08:46 WBC RBC Hgb MCV MCH RDW Lymph % (Auto) [place] % (Auto) Lymph # (Auto) Seg Neutrophils % Seg Neuts % (Manual) Lymphocytes % (Manual) Seg Neutrophils # Seg Neutrophils # Man D-Dimer 1884.49 H ABG pH ABG pO2 ABG HCO3 ABG O2 Saturation ABG Base Excess ABG Hemoglobin Oxyhemoglobin Sodium Chloride Carbon Dioxide BUN Creatinine Glucose POC Glucose 202 H 191 H Calcium Ferritin AST Lactate Dehydrogenase C-Reactive Protein Total Protein Albumin Coronavirus (PCR) 01/28/21 01/28/21 01/28/21 08:46 08:46 12:18 WBC RBC Hgb MCV MCH RDW Lymph % (Auto) [place] % (Auto) Lymph # (Auto) Seg Neutrophils % Seg Neuts % (Manual) Lymphocytes % (Manual) Seg Neutrophils # Seg Neutrophils # Man D-Dimer ABG pH ABG pO2 ABG HCO3 ABG O2 Saturation ABG Base Excess ABG Hemoglobin Oxyhemoglobin Sodium Chloride Carbon Dioxide BUN Creatinine Glucose POC Glucose 221 H Calcium Ferritin 797.7 H AST Lactate Dehydrogenase 556 H C-Reactive Protein Total Protein Albumin Coronavirus (PCR) 01/28/21 01/28/21 01/29/21 18:21 21:45 01:48 WBC RBC Hgb MCV MCH RDW Lymph % (Auto) [place] % (Auto) Lymph # (Auto) Seg Neutrophils % Seg Neuts % (Manual) Lymphocytes % (Manual) Seg Neutrophils # Seg Neutrophils # Man D-Dimer ABG pH ABG pO2 ABG HCO3 ABG O2 Saturation ABG Base Excess ABG Hemoglobin Oxyhemoglobin Sodium Chloride Carbon Dioxide BUN Creatinine Glucose POC Glucose 214 H 148 H 248 H Calcium Ferritin AST Lactate Dehydrogenase C-Reactive Protein Total Protein Albumin Coronavirus (PCR) 01/29/21 01/29/21 01/29/21 05:17 10:17 11:39 WBC RBC Hgb MCV MCH RDW Lymph % (Auto) [place] % (Auto) Lymph # (Auto) Seg Neutrophils % Seg Neuts % (Manual) Lymphocytes % (Manual) Seg Neutrophils # Seg Neutrophils # Man D-Dimer ABG pH ABG pO2 ABG HCO3 ABG O2 Saturation ABG Base Excess ABG Hemoglobin Oxyhemoglobin Sodium Chloride Carbon Dioxide BUN Creatinine Glucose POC Glucose 256 H 193 H 177 H Calcium Ferritin AST Lactate Dehydrogenase C-Reactive Protein Total Protein Albumin Coronavirus (PCR) 01/29/21 01/29/21 01/30/21 18:06 20:24 06:07 WBC RBC Hgb MCV MCH RDW Lymph % (Auto) [place] % (Auto) Lymph # (Auto) Seg Neutrophils % Seg Neuts % (Manual) Lymphocytes % (Manual) Seg Neutrophils # Seg Neutrophils # Man D-Dimer ABG pH ABG pO2 ABG HCO3 ABG O2 Saturation ABG Base Excess ABG Hemoglobin Oxyhemoglobin Sodium Chloride Carbon Dioxide BUN Creatinine Glucose POC Glucose 107 H 114 H 114 H Calcium Ferritin AST Lactate Dehydrogenase C-Reactive Protein Total Protein Albumin Coronavirus (PCR) 01/30/21 01/30/2101/30/21 12:08 16:11 21:19 WBC RBC Hgb MCV MCH RDW Lymph % (Auto) [place] % (Auto) Lymph # (Auto) Seg Neutrophils % Seg Neuts % (Manual) Lymphocytes % (Manual) Seg Neutrophils # Seg Neutrophils # Man D-Dimer ABG pH ABG pO2 ABG HCO3 ABG O2 Saturation ABG Base Excess ABG Hemoglobin Oxyhemoglobin Sodium Chloride Carbon Dioxide BUN Creatinine Glucose POC Glucose 178 H 142 H 244 H Calcium Ferritin AST Lactate Dehydrogenase C-Reactive Protein Total Protein Albumin Coronavirus (PCR) 01/31/21 01/31/21 01/31/21 05:30 06:42 07:50 WBC RBC Hgb MCV MCH RDW Lymph % (Auto) [place] % (Auto) Lymph # (Auto) Seg Neutrophils % Seg Neuts % (Manual) Lymphocytes % (Manual) Seg Neutrophils # Seg Neutrophils # Man D-Dimer ABG pH ABG pO2 ABG HCO3 ABG O2 Saturation ABG Base Excess ABG Hemoglobin Oxyhemoglobin Sodium Chloride Carbon Dioxide BUN 20 H Creatinine Glucose 160 H POC Glucose 164 H 152 H Calcium 8.0 L Ferritin AST Lactate Dehydrogenase C-Reactive Protein Total Protein Albumin Coronavirus (PCR) 01/31/21 01/31/21 01/31/21 11:40 16:37 21:01 WBC RBC Hgb MCV MCH RDW Lymph % (Auto) [place] % (Auto) Lymph # (Auto) Seg Neutrophils % Seg Neuts % (Manual) Lymphocytes % (Manual) Seg Neutrophils # Seg Neutrophils # Man D-Dimer ABG pH ABG pO2 ABG HCO3 ABG O2 Saturation ABG Base Excess ABG Hemoglobin Oxyhemoglobin Sodium Chloride Carbon Dioxide BUN Creatinine Glucose POC Glucose 129 H 141 H 125 H Calcium Ferritin AST Lactate Dehydrogenase C-Reactive Protein Total Protein Albumin Coronavirus (PCR) 02/01/21 02/01/21 02/01/21 06:26 11:15 16:11 WBC RBC Hgb MCV MCH RDW Lymph % (Auto) [place] % (Auto) Lymph # (Auto) Seg Neutrophils % Seg Neuts % (Manual) Lymphocytes % (Manual) Seg Neutrophils # Seg Neutrophils # Man D-Dimer ABG pH ABG pO2 ABG HCO3 ABG O2 Saturation ABG Base Excess ABG Hemoglobin Oxyhemoglobin Sodium Chloride Carbon Dioxide BUN Creatinine Glucose POC Glucose 136 H 260 H 240 H Calcium Ferritin AST Lactate Dehydrogenase C-Reactive Protein Total Protein Albumin Coronavirus (PCR) 02/01/21 02/02/21 02/02/21 22:32 07:15 07:56 WBC 3.1 L RBC Hgb MCV 75 L MCH 23 L RDW Lymph % (Auto) 44.9 H [place] % (Auto) 9.2 H Lymph # (Auto) Seg Neutrophils % Seg Neuts % (Manual) Lymphocytes % (Manual) Seg Neutrophils # 1.3 L Seg Neutrophils # Man D-Dimer ABG pH ABG pO2 ABG HCO3 ABG O2 Saturation ABG Base Excess ABG Hemoglobin Oxyhemoglobin Sodium Chloride Carbon Dioxide BUN Creatinine Glucose POC Glucose 298 H 164 H Calcium Ferritin AST Lactate Dehydrogenase C-Reactive Protein Total Protein Albumin Coronavirus (PCR) 02/02/21 02/02/21 02/02/21 07:56 11:35 16:07 WBC RBC Hgb MCV MCH RDW Lymph % (Auto) [place] % (Auto) Lymph # (Auto) Seg Neutrophils % Seg Neuts % (Manual) Lymphocytes % (Manual) Seg Neutrophils # Seg Neutrophils # Man D-Dimer ABG pH ABG pO2 ABG HCO3 ABG O2 Saturation ABG Base Excess ABG Hemoglobin Oxyhemoglobin Sodium Chloride Carbon Dioxide 31 H BUN Creatinine 0.4 L Glucose 159 H POC Glucose 297 H 252 H Calcium 8.2 L Ferritin AST Lactate Dehydrogenase C-Reactive Protein Total Protein Albumin Coronavirus (PCR) 02/02/21 02/03/21 02/03/21 22:33 17:04 22:17 WBC RBC Hgb MCV MCH RDW Lymph % (Auto) [place] % (Auto) Lymph # (Auto) Seg Neutrophils % Seg Neuts % (Manual) Lymphocytes % (Manual) Seg Neutrophils # Seg Neutrophils # Man D-Dimer ABG pH ABG pO2 ABG HCO3 ABG O2 Saturation ABG Base Excess ABG Hemoglobin Oxyhemoglobin Sodium Chloride Carbon Dioxide BUN Creatinine Glucose POC Glucose 257 H 247 H 278 H Calcium Ferritin AST Lactate Dehydrogenase C-Reactive Protein Total Protein Albumin Coronavirus (PCR) 02/04/21 02/04/21 02/04/21 05:41 07:55 11:56 WBC RBC Hgb MCV MCH RDW Lymph % (Auto) [place] % (Auto) Lymph # (Auto) Seg Neutrophils % Seg Neuts % (Manual) Lymphocytes % (Manual) Seg Neutrophils # Seg Neutrophils # Man D-Dimer ABG pH ABG pO2 ABG HCO3 ABG O2 Saturation ABG Base Excess ABG Hemoglobin Oxyhemoglobin Sodium Chloride Carbon Dioxide 31 H BUN 19 H Creatinine 0.5 L Glucose 184 H POC Glucose 182 H 227 H Calcium Ferritin AST Lactate Dehydrogenase C-Reactive Protein Total Protein Albumin Coronavirus (PCR) 02/04/21 02/04/21 02/04/21 12:45 14:52 16:45 WBC 4.0 L RBC Hgb MCV 77 L MCH 24 L RDW 15.5 H Lymph % (Auto) [place] % (Auto) Lymph # (Auto) Seg Neutrophils % Seg Neuts % (Manual) Lymphocytes % (Manual) Seg Neutrophils # Seg Neutrophils # Man D-Dimer ABG pH ABG pO2 65.6 L ABG HCO3 30.8 H ABG O2 Saturation 94.0 L ABG Base Excess 5.5 H ABG Hemoglobin 10.3 L Oxyhemoglobin 92.3 L Sodium Chloride Carbon Dioxide BUN Creatinine Glucose POC Glucose 194 H Calcium Ferritin AST Lactate Dehydrogenase C-Reactive Protein Total Protein Albumin Coronavirus (PCR) 02/04/21 02/05/21 02/05/21 22:00 06:55 07:49 WBC RBC Hgb 10.0 L MCV MCH RDW Lymph % (Auto) [place] % (Auto) Lymph # (Auto) Seg Neutrophils % Seg Neuts % (Manual) Lymphocytes % (Manual) Seg Neutrophils # Seg Neutrophils # Man D-Dimer ABG pH ABG pO2 ABG HCO3 ABG O2 Saturation ABG Base Excess ABG Hemoglobin Oxyhemoglobin Sodium Chloride Carbon Dioxide BUN Creatinine Glucose POC Glucose 281 H 204 H Calcium Ferritin AST Lactate Dehydrogenase C-Reactive Protein Total Protein Albumin Coronavirus (PCR) Chest x-ray: image reviewed (bilat infiltrates)
[2021-02-05 11:33] LABS: Hematocrit 34.1 % (30.3-42.9); Hemoglobin 10.7 gm/dl (10.1-14.3)
[2021-02-05 17:08] LABS: Hematocrit 33.4 % (30.3-42.9)
[2021-02-05] MEDS: INSULIN GLARGINE 100 UNITS/ML SUB-Q SCH (21:54)
[2021-02-05] MEDS: MIRTAZAPINE 15 MG TAB PO SCH (22:39)
[2021-02-06 05:21] LABS: Hematocrit 32.6 % (30.3-42.9); Mean Corpuscular HGB Conc 31 % (30-34); Mean Corpuscular Volume 76 fl (79-97); Platelet Count 142 K/mm3 (140-440); Red Blood Count 4.31 M/mm3 (3.65-5.03); Red Cell Distribution Width 15.7 % (13.2-15.2)
[2021-02-06 05:35] LABS: Blood Urea Nitrogen 16 mg/dL (7-17); Calcium 8.3 mg/dL (8.4-10.2); Hemolysis Index 6
[2021-02-06 05:36] LABS: BUN/Creatinine Ratio 40
[2021-02-06] MEDS: FUROSEMIDE 40 MG/4 ML INJ IV SCH (09:29)
[2021-02-06] MEDS: APIXABAN 2.5 MG TAB PO SCH ×2 (09:30→21:52)
[2021-02-06] MEDS: FAMOTIDINE 20 MG TAB PO SCH ×2 (09:30→21:54)
[2021-02-06] MEDS: ASCORBIC ACID 500 MG TAB PO SCH ×2 (09:30→21:55)
[2021-02-06] MEDS: ZINC SULFATE 220 MG CAP PO SCH (09:30)
[2021-02-06] MEDS: METOPROLOL TARTRATE 25 MG TAB PO SCH ×2 (09:30→21:54)
[2021-02-06] MEDS: INSULIN LISPRO 100 UNIT/ML SUB-Q SCH ×4 (09:31→21:53)
[2021-02-06] MEDS: IPRATROPIUM/ALBUTEROL SULFATE 3 ML AMPUL.NEB IH SCH ×3 (10:43→21:10)
[2021-02-06] MEDS: DIVALPROEX ER 500 MG TAB PO SCH (13:13)
[2021-02-06] MEDS: ARIPiprazole 15 MG TAB PO SCH (13:13)
[2021-02-06] MEDS: CHOLECALCIFEROL (VIT D3) 5,000 UNIT TAB PO SCH (13:13)
[2021-02-06] MEDS: PALIPERIDONE ER 3 MG TAB PO SCH (13:13)
--- NOTE | 2021-02-06 15:19 | Progress Note ---
Assessment and Plan Assessment and plan: This is a 55-year-old female with schizophrenia who presented to [facility] on 01/18 for shortness of breath, cough, subjective fever and not feeling well for the last couple days with known COVID-19 exposure. While in the emergency room patient was switched from non rebreather mask to high flow nasal cannula and his CTA chest showed no acute pulmonary embolism. Patient was admitted to the hospital service as a COVID-19 PUI with consults to CCM, infectious disease, psych. Severe COVID-19 pneumonia Acute hypoxic respiratory failure Obesity Schizophrenia Leukocytosis Hyperglycemia Schizophrenia Hypernatremia Hypercholermia Hemoptysis -CCM, infectious disease, psychiatry consulted, appreciate recommendations -COVID-19 PCR positive -Droplet/contact isolation -Remdesivir, azithromycin, ceftriaxone, dexamethasone (twice daily dosing) -s/p Actemra -Wean supplemental oxygen as tolerated, pulmonary hygiene -Prone as tolerated -Trend COVID-19 inflammatory markers for risk stratification, CBC, CMP -SSI, Lantus -01/18 bilateral lower extremity Doppler ultrasound negative for DVT -01/17 CTA shows no evidence of pulmonary embolism, extensive bilateral pneumonia, hepatomegaly with hepatic steatosis 01/18/2021 -Acute hypoxic respiratory failure requiring high flow oxygen 40 L. Nebulizer treatment -Patient is admitted for suspected Covid pneumonia. Patient is on dexamethasone, COVID-19 test is pending. Patient is on empiric antibiotics. -ID consulted, will consult pulmonary. -Patient has hyponatremia yesterday and I will repeat and if it is low I will manage accordingly -Patient has elevated D-dimer and CTA chest and bilateral Doppler ultrasound of the lower extremities pending 01/19/2021 -Acute hypoxic respiratory failure currently on BiPAP, nebulizer treatment. I will put in orders to transfer to [facility] yesterday but there was no bed. -Patient is positive for Covid and she is on Decadron and remdesivir. Actemra was ordered on 01/19/2021 -ID evaluated the patient and recommend to continue Decadron and remdesivir, also to continue ceftriaxone and azithromycin for 5 days because of the elevated procalcitonin level. Pulmonary was consulted and recommend to continue current management and add Lasix -CTA chest was done and significant for bilateral pulmonary opacities, negative for PE, Doppler ultrasound of the lower extremities was negative for DVT. -Prognosis is guarded. -Patient is currently on BiPAP and she was agitated and trying to take off the BiPAP, I put the patient on restraints. Discussed with steffen house supervisor to transfer the patient to IMCU and if there is no bed she need to be transferred to CCU. 01/20: Patient received 5 mg of Haldol for severe agitation and refusal to keep high flow nasal cannula in place. [facility] ordered Lasix again. Psych was consulted today. Patient was on BiPAP therapy all night and RT attempted to give her a break patient is on high flow nasal cannula however she did not keep this in place and was paced back on BiPAP after receiving Haldol. She was started on Lantus today. 01/21: Patient is on BiPAP and on time examination was on 20/10 100% FiO2. Patient was started on Lantus. Psych consult completed and started on Haldol p.o. twice daily and Mirtazepin PO daily. No acute events reported overnight. Patient's D-dimer is greater than 10,000 started on prophylactic Lovenox as recent CTA chest and bilateral lower extremity Doppler ultrasound were negative. 01/22: Patient has been taken off BiPAP therapy and placed on high flow nasal cannula. Patient has been downgraded to IMCU. Patient's hyponatremia and hypochloremia have worsened. 01/23: Patient was on BiPAP overnight with FiO2 85% and IPAP 20/EPAP 10. Patient currently with high flow nasal cannula 40 L O2 with an FiO2 of 100%. Continue remdesivir and dexamethasone. Patient is s/p Actemra on 01/20. Continue empiric antibiotics per ID recommendations. Continue anticoagulation per protocol. 01/24: Patient is tachycardic and hypertensive and [facility] has opted to add amlodipine. Patient remains on 40 L 100% high flow nasal cannula. Continue remdesivir and dexamethasone. Patient is s/p Actemra on 01/20. Continue empiric antibiotics per ID recommendations. Continue anticoagulation per protocol. 01/25: Patient currently with high flow nasal cannula 40 L/min with FiO2 100%. Continue dexamethasone. Patient has completed remdesivir and s/p Actemra on 01/20. Continue full dose anticoagulation given high elevated D-dimer. Continue to trend inflammatory markers. Prognosis remains guarded. 01/26: Patient currently with high flow nasal cannula 35 L/min and FiO2 90%. Continue dexamethasone. Patient has completed remdesivir and s/p Actemra on 01/20. Continue full dose anticoagulation given high elevated D-dimer. Continue to trend inflammatory markers. Prognosis remains guarded. 01/27: Patient currently with high flow nasal cannula/Vapotherm 35 L/min O2 with FiO2 90%. Patient has completed remdesivir and s/p Actemra on 01/20. Continue full dose anticoagulation given high elevated D-dimer. Continue to trend inflammatory markers. Prognosis remains guarded. 01/28; Patient currently with high flow nasal cannula/Vapotherm 35 L/min O2 with FiO2 90%. Patient has completed remdesivir and s/p Actemra on 01/20. Continue full dose anticoagulation given high elevated D-dimer. Continue to trend inflammatory markers. Prognosis remains guarded. 01/29; patient is currently on 35 L of high flow oxygen. Prognosis guarded. Patient can be transferred to regular floor. 01/30/2021; patient is currently on 35 L of high flow oxygen, FiO2 of 65%. Patient has flat affect and did not talk to me. Patient refused most of her p.o. medications. Patient finished remdesivir, steroid. 01/31/2021; patient is on 35 L of high flow oxygen, FiO2 65%. Patient was calm and cooperative and communicative today. pulmonary is following. Patient finished remdesivir and steroid. 02/01/2021; patient was on 40 L of high flow oxygen.. I have called and discussed with her mother yesterday. Her mother told me patient was last followed at [facility] and I called facility and they told me medication she was on and I put these medications. Patient refused to eat so I put the patient on NG tube feeding for medications. Prognosis is guarded. 02/02/2021; patient is on 4 L of high flow oxygen with FiO2 of 60%. Her outpatient psych medications were reconciled. Patient was taking medications and as needed NG tube. Pulmonary is following the patient. 02/03/21: Patient noted with mild epistaxis this morning we will order some Afrin to help. Continue current management patient is on 35 L high flow. No worsening distress but still with intermittent confusion sometimes takes off the oxygen. Will repeat a trial of Lasix and monitor renal function with a.m. labs. Plan discussed with nurse at bedside. I also encouraged proning again. 02/04: Unfortunately still with hypoxia desaturating required increased to 50 L and 70% will gradually taper down. Patient due to her underlying psych history of schizophrenia is noncompliant. Daughter is working on getting guardianship over the patient. This will likely be a slow process nevertheless we will still obtain a CT of the head to ensure no other pathology. We will get an ABG and a chest x-ray today. 02/05: Patient overnight had an episode where she coughed up blood. H&H has remained stable. She has been since discontinued from full dose anticoagulants to DVT prophylactic dose. Chest x-ray shows mild worsening of congestion. Will discuss with pulmonary if patient will benefit from BiPAP during hours of sleep. Still awaiting information from family on prior psych medications that the patient was on psych review with psychiatry team as her mental status remains a deterrent and an impediment to oxygen management. We will give a trial dose of Lasix x 3 days. Will transfer to [facility] for closer monitoring 02/06: Continue supportive care, 2 more days of lasix, monitor BMP closely wean oxygen as tolerated, pulmonary input noted The high probability of a clinically significant, sudden or life threatening deterioration of the [pulmonary] system(s) required my full and direct attention, intervention and personal management. The aggregate critical care time was [35] minutes. This time is in addition to time spent performing reported procedures but includes the following: [x] Data Review and interpretation [x] Patient assessment and monitoring of vital signs [x] Documentation [x] Medication orders and management History Interval history: Patient seen and examined confused, remains Hypoxia Hospitalist Physical - Physical exam Narrative exam: ON HIGH FLOW The patient appeared well nourished and normally developed. responsive and intractive but still with some confused Vital signs as documented. Head exam is unremarkable. No scleral icterus . Neck is without jugular venous distension, thyromegaly, or carotid bruits. Lungs decreased air entry on both lungs Cardiac exam reveals regular rate and Rhythm. Abdominal exam reveals normal bowel sounds, nontender, no organomegaly. Extremities are nonedematous and both femoral and pedal pulses are normal. EMISSIONS REPAIR TECHNICIAN: Patient was on restraints. Patient is pleasant and communicative today, but still confused. - Constitutional Vitals: Temp Pulse Resp BP Pulse Ox 98.2 F 113 H 18 135/90 99 02/06/21 12:29 02/06/21 14:30 02/06/21 11:00 02/06/21 14:30 02/06/21 14:30 General appearance: Present: no acute distress, well-nourished HEART Score - HEART Score Troponin: Troponin T < 0.010 ng/mL (0.00-0.029) 01/17/21 16:41 Results - Labs CBC & Chem 7: 02/06/21 04:43 02/06/21 04:43 Labs: Laboratory Last Values WBC 4.0 K/mm3 (4.5-11.0) L 02/06/21 04:43 RBC 4.31 M/mm3 (3.65-5.03) 02/06/21 04:43 Hgb 10.0 gm/dl (10.1-14.3) L 02/06/21 04:43 Hct 32.6 % (30.3-42.9) 02/06/21 04:43 MCV 76 fl (79-97) L 02/06/21 04:43 MCH 23 pg (28-32) L 02/06/21 04:43 MCHC 31 % (30-34) 02/06/21 04:43 RDW 15.7 % (13.2-15.2) H 02/06/21 04:43 Plt Count 142 K/mm3 (140-440) 02/06/21 04:43 Lymph % (Auto) 44.9 % (13.4-35.0) H 02/02/21 07:56 Dickson % (Auto) 9.2 % (0.0-7.3) H 02/02/21 07:56 Eos % (Auto) 3.6 % (0.0-4.3) 02/02/21 07:56 Baso % (Auto) 0.3 % (0.0-1.8) 02/02/21 07:56 Lymph # (Auto) 1.4 K/mm3 (1.2-5.4) 02/02/21 07:56 Dickson # (Auto) 0.3 K/mm3 (0.0-0.8) 02/02/21 07:56 Eos # (Auto) 0.1 K/mm3 (0.0-0.4) 02/02/21 07:56 Baso # (Auto) 0.0 K/mm3 (0.0-0.1) 02/02/21 07:56 Add Manual Diff Complete 01/19/21 05:11 Total Counted 100 01/19/21 05:11 Seg Neutrophils % 42.0 % (40.0-70.0) 02/02/21 07:56 Seg Neuts % (Manual) 88.0 % (40.0-70.0) H 01/19/21 05:11 Lymphocytes % (Manual) 10.0 % (13.4-35.0) L 01/19/21 05:11 Monocytes % (Manual) 2.0 % (0.0-7.3) 01/19/21 05:11 Nucleated RBC % Not Reportable 01/19/21 05:11 Seg Neutrophils # 1.3 K/mm3 (1.8-7.7) L 02/02/21 07:56 Seg Neutrophils # Man 12.5 K/mm3 (1.8-7.7) H 01/19/21 05:11 Band Neutrophils # 0.0 K/mm3 01/19/21 05:11 Lymphocytes # (Manual) 1.4 K/mm3 (1.2-5.4) 01/19/21 05:11 Abs React Lymphs (Man) 0.0 K/mm3 01/19/21 05:11 Monocytes # (Manual) 0.3 K/mm3 (0.0-0.8) 01/19/21 05:11 Eosinophils # (Manual) 0.0 K/mm3 (0.0-0.4) 01/19/21 05:11 Basophils # (Manual) 0.0 K/mm3 (0.0-0.1) 01/19/21 05:11 Metamyelocytes # 0.0 K/mm3 01/19/21 05:11 Myelocytes # 0.0 K/mm3 01/19/21 05:11 Promyelocytes # 0.0 K/mm3 01/19/21 05:11 Blast Cells # 0.0 K/mm3 01/19/21 05:11 WBC Morphology Not Reportable 01/19/21 05:11 Hypersegmented Neuts Not Reportable 01/19/21 05:11 Hyposegmented Neuts Not Reportable 01/19/21 05:11 Hypogranular Neuts Not Reportable 01/19/21 05:11 Smudge Cells Not Reportable 01/19/21 05:11 Toxic Granulation Not Reportable 01/19/21 05:11 Toxic Vacuolation Not Reportable 01/19/21 05:11 Dohle Bodies Not Reportable 01/19/21 05:11 Pelger-Huet Anomaly Not Reportable 01/19/21 05:11 Inder Rods Not Reportable 01/19/21 05:11 Platelet Estimate Consistent w auto 01/19/21 05:11 Clumped Platelets Not Reportable 01/19/21 05:11 Plt Clumps, EDTA Not Reportable 01/19/21 05:11 Large Platelets Not Reportable 01/19/21 05:11 Giant Platelets Not Reportable 01/19/21 05:11 Platelet Satelliting Not Reportable 01/19/21 05:11 Plt Morphology Comment Not Reportable 01/19/21 05:11 RBC Morphology Not Reportable 01/19/21 05:11 Dimorphic RBCs Not Reportable 01/19/21 05:11 Polychromasia Not Reportable 01/19/21 05:11 Hypochromasia 1+ 01/19/21 05:11 Poikilocytosis Not Reportable 01/19/21 05:11 Anisocytosis Not Reportable 01/19/21 05:11 Microcytosis Not Reportable 01/19/21 05:11 Macrocytosis Not Reportable 01/19/21 05:11 Spherocytes Not Reportable 01/19/21 05:11 Pappenheimer Bodies Not Reportable 01/19/21 05:11 Sickle Cells Not Reportable 01/19/21 05:11 Target Cells Not Reportable 01/19/21 05:11 Tear Drop Cells Not Reportable 01/19/21 05:11 Ovalocytes Not Reportable 01/19/21 05:11 Helmet Cells Not Reportable 01/19/21 05:11 Nav[place] Bodies Not Reportable 01/19/21 05:11 [place] Rings Not Reportable 01/19/21 05:11 [place] Cells Not Reportable 01/19/21 05:11 Bite Cells Not Reportable 01/19/21 05:11 Crenated Cell Not Reportable 01/19/21 05:11 Elliptocytes Not Reportable 01/19/21 05:11 Acanthocytes (Spur) Not Reportable 01/19/21 05:11 Rouleaux Not Reportable 01/19/21 05:11 Hemoglobin C Crystals Not Reportable 01/19/21 05:11 Schistocytes Not Reportable 01/19/21 05:11 Malaria parasites Not Reportable 01/19/21 05:11 Chai Bodies Not Reportable 01/19/21 05:11 Hem Pathologist Commnt No 01/19/21 05:11 PT 13.6 Sec. (12.2-14.9) 02/04/21 14:52 INR 1.06 (0.87-1.13) 02/04/21 14:52 APTT 30.7 Sec. (24.2-36.6) 02/04/21 14:52 D-Dimer 1884.49 ng/mlDDU (0-234) H 01/28/21 08:46 ABG pH 7.418 pH Units (7.350-7.450) 02/04/21 12:45 ABG pCO2 48.7 mm Hg 02/04/21 12:45 ABG pO2 65.6 mm Hg (80.0-90.0) L 02/04/21 12:45 ABG HCO3 30.8 mmol/L (20.0-26.0) H 02/04/21 12:45 ABG O2 Saturation 94.0 % (95.0-99.0) L 02/04/21 12:45 ABG O2 Content 13.4 (0.0-44) 02/04/21 12:45 ABG Base Excess 5.5 mmol/L (-2.0-3.0) H 02/04/21 12:45 ABG Hemoglobin 10.3 gm/dl (12.0-16.0) L 02/04/21 12:45 ABG Carboxyhemoglobin 1.4 % (0.0-5.0) 02/04/21 12:45 ABG Methemoglobin 0.4 % (0.0-1.5) 02/04/21 12:45 Oxyhemoglobin 92.3 % (95.0-99.0) L 02/04/21 12:45 FiO2 40 % 02/04/21 12:45 Sodium 139 mmol/L (137-145) 02/06/21 04:43 Potassium 3.9 mmol/L (3.6-5.0) 02/06/21 04:43 Chloride 99.9 mmol/L (98-107) 02/06/21 04:43 Carbon Dioxide 32 mmol/L (22-30) H 02/06/21 04:43 Anion Gap 11 mmol/L 02/06/21 04:43 BUN 16 mg/dL (7-17) 02/06/21 04:43 Creatinine 0.4 mg/dL (0.6-1.2) L 02/06/21 04:43 Estimated GFR > 60 ml/min 02/06/21 04:43 BUN/Creatinine Ratio 40 % 02/06/21 04:43 Glucose 163 mg/dL (65-100) H 02/06/21 04:43 POC Glucose 215 mg/dL (70-105) H 02/06/21 11:44 Lactic Acid 1.70 mmol/L (0.7-2.0) 01/17/21 16:41 Calcium 8.3 mg/dL (8.4-10.2) L 02/06/21 04:43 Ferritin 797.7 ng/mL (10.0-200.0) H 01/28/21 08:46 Total Bilirubin 0.30 mg/dL (0.1-1.2) 01/21/21 11:29 AST 34 units/L (5-40) 01/21/21 11:29 ALT 38 units/L (7-56) 01/21/21 11:29 Alkaline Phosphatase 117 units/L (35-129) 01/21/21 11:29 Ammonia 43.0 umol/L (25-60) 02/04/21 14:52 Lactate Dehydrogenase 556 units/L (91-180) H 01/28/21 08:46 Troponin T < 0.010 ng/mL (0.00-0.029) 01/17/21 16:41 C-Reactive Protein 0.20 mg/dL (0.00-1.30) 01/28/21 08:46 NT-Pro-B Natriuret Pep 40.88 pg/mL (0-900) 01/17/21 16:41 Total Protein 7.3 g/dL (6.3-8.2) 01/21/21 11:29 Albumin 3.4 g/dL (3.9-5) L 01/21/21 11:29 Albumin/Globulin Ratio 0.9 % 01/21/21 11:29 Procalcitonin 0.39 ng/mL (<0.15) 01/17/21 17:46 Coronavirus (PCR) Positive (Negative) A 01/17/21 09:25 Estrada/IV: Voiding Method External Female Catheter Active Medications - Current Medications Current Medications: Generic Name Dose Route Start Last Admin Trade Name Freq PRN Reason Stop Dose Admin Acetaminophen 650 mg 01/18/21 00:36 01/22/21 23:46 Acetaminophen 325 Mg Tab PO 650 mg Q4H PRN Administration Pain MILD(1-3)/Fever >100.5/PAN Albuterol/Ipratropium 1 ampul 02/01/21 14:00 02/06/21 10:43 Ipratropium/Albuterol Sulfate 3 Ml Ampul.Neb IH 1 ampul TIDRT PJ Administration Apixaban 2.5 mg 02/04/21 22:00 02/06/21 09:30 Apixaban 2.5 Mg Tab PO 2.5 mg Q12HR PJ Administration Protocol Aripiprazole 15 mg 01/31/21 13:00 02/06/21 13:13 Aripiprazole 15 Mg Tab PO Not Given QDAY PJ Ascorbic Acid 1,000 mg 02/04/21 10:00 02/06/21 09:30 Ascorbic Acid 500 Mg Tab PO 1,000 mg BID PJ Administration Cholecalciferol 5,000 unit 02/04/21 10:00 02/06/21 13:13 Cholecalciferol (Vit D3) 5,000 Unit Tab PO Not Given DAILY PJ Divalproex Sodium 500 mg 01/31/21 12:00 02/06/21 13:13 Divalproex Er 500 Mg Tab PO Not Given QDAY PJ Famotidine 20 mg 01/18/21 10:00 02/06/21 09:30 Famotidine 20 Mg Tab PO 20 mg BID PJ Administration Furosemide 40 mg 02/05/21 10:00 02/06/21 09:29 Furosemide 40 Mg/4 Ml Inj IV 02/07/21 10:01 40 mg QDAY PJ Administration Hydralazine HCl 10 mg 01/18/21 00:38 01/24/21 23:12 Hydralazine 20 Mg/1 Ml Inj IV 10 mg Q6H PRN Administration htn Hydromorphone HCl 0.5 mg 01/20/21 11:00 Hydromorphone 1 Mg/1 Ml Inj IV Q6H PRN Pain , Severe (7-10) Hydrophilic Ointment 1 applic 02/03/21 12:00 Petrolatum,White 30 Gm Oint TP PRN PRN Skin Irritation Insulin Glargine 20 units 01/20/21 22:00 02/05/21 21:54 Insulin Glargine 100 Units/Ml SUB-Q 20 units QHS PJ Administration Insulin Human Lispro 0 unit 02/01/21 11:30 02/06/21 13:14 Insulin Lispro 100 Unit/Ml SUB-Q Not Given ACHS [facility] Protocol Metoprolol Tartrate 12.5 mg 02/01/21 12:00 02/06/21 09:30 Metoprolol Tartrate 25 Mg Tab PO 12.5 mg BID PJ Administration Mirtazapine 7.5 mg 01/21/21 22:00 02/05/21 22:39 Mirtazapine 15 Mg Tab PO 7.5 mg QHS PJ Administration Ondansetron HCl 4 mg 01/18/21 00:36 Ondansetron 4 Mg/2 Ml Inj IV Q8H PRN Nausea And Vomiting Oxymetazoline HCl 2 spray 02/03/21 12:00 02/03/21 13:17 Oxymetazoline 0.05% Nasal [place] NS 2 spray Q12H PRN Administration Congestion Paliperidone 6 mg 01/31/21 13:00 02/06/21 13:13 Paliperidone Er 3 Mg Tab PO Not Given QDAY PJ Sodium Chloride 10 ml 01/18/21 10:00 02/06/21 09:33 Sodium Chloride 0.9% 10 Ml Flush Syringe IV 10 ml BID PJ Administration Sodium Chloride 10 ml 01/18/21 00:36 Sodium Chloride 0.9% 10 Ml Flush Syringe IV PRN PRN LINE FLUSH Zinc Sulfate 220 mg 02/04/21 10:00 02/06/21 09:30 Zinc Sulfate 220 Mg Cap PO 220 mg QDAY PJ Administration Nutrition/Malnutrition Assess - Dietary Evaluation Nutrition/Malnutrition Findings: Nutrition Notes Start: 01/24/21 10:40 Freq: Status: Active Protocol: Document 02/06/21 14:11 AL (Rec: 02/06/21 14:20 AL [id number]) Co-Sign 02/06/21 14:11 NHALL Nutrition Notes Initial or Follow up Reassessment Current Diagnosis Respiratory Failure Other Pertinent Diagnosis pneu, COVID-19(+), AMS Current Diet Cardiac diet with Consistent CHO modifications Labs/Tests Reviewed Pertinent Medications Lasix Height 5 ft 4 in Weight 92 kg Cool Body Weight (kg) 54.54 BMI 34.8 Weight change and time frame Wt fluctuations Weight Status Obese Subjective/Other Information F/U for stable intakes. Observed pt eating lunch during visit. Per RN, pt PO intake is unstable due to AMS. Today, Pt consumed 50% of meals and half of ONS. Percent of energy/protein needs met: 85%/88% Burn Absent Trauma Absent GI Symptoms None Current % PO Fair (50-74%) Minimum of two criteria No Energy Intake (non-severe) <75% Estimated Energy Requirement >7 days #1 Nutrition Diagnosis Inadequate oral intake Diagnosis Progress(for reassessment Resolved documentation) Is patient on ventilator? No Is Patient Ambulatory and/or Out of Bed No REE-([place]-confined to bed) 1798.272 Kcal/Kg value to use for calculation 15 Approximate Energy Requirements Using 1380 kcal/Kg Calculation Used for Recommendations Kcal/kg Additional Notes PRO needs: 59-74g (0.8-1g/kg AdBW 74 kg) Fluid needs: 1 mL/kcal or per MD Nutrition Intervention Change Diet Order: Continue current Add Supplement/Snack (indicate name/kcal Glucerna BID /protein ) Provides kCal: 440 Provides Protein (gm) 20 Goal #1 Meet at least 75% of energy and protein needs via PO and ONS intakes Anticipated Discharge Needs: Cardiac/Consistent CHO Revisit per MD consult or patient Sign Off request:
--- NOTE | 2021-02-06 18:08 | Progress Note ---
Assessment and Plan Imp: 1. Covid-19 w/ viral pneumonia 2. ARDS 3. Acute resp. failure, hypoxia 4. Hypernatremia 5. Obesity Rec: 1. S/p Decadaron IV 2. S/p Remdesivir x 5 days 3. On Eliquis BID 4. Unable to prone due to lack of cooperation/compliance 5. Monitor inflammatory markers 6. Wean HFNC to keep sats 88% or > 7. Complex decision-making; guarded prognosis Plan of care reviewed w/ patient, she understands/agrees Subjective Date of service: 02/06/21 Principal diagnosis: Covid-19 Interval history: No events. Awake, alert. On HFNC at 75% FiO2 and 35LPM. SOB better. Has a dry cough. Active Medications Acetaminophen (Acetaminophen 325 Mg Tab) 650 mg PO Q4H PRN PRN Reason: Pain MILD(1-3)/Fever >100.5/PAN Last Admin: 01/22/21 23:46 Dose: 650 mg Documented by: Albuterol/Ipratropium (Ipratropium/Albuterol Sulfate 3 Ml Ampul.Neb) 1 ampul IH TIDRT [facility] Last Admin: 02/06/21 16:30 Dose: 1 ampul Documented by: Apixaban (Apixaban 2.5 Mg Tab) 2.5 mg PO Q12HR [facility]; Protocol Last Admin: 02/06/21 09:30 Dose: 2.5 mg Documented by: Aripiprazole (Aripiprazole 15 Mg Tab) 15 mg PO QDAY [facility] Last Admin: 02/06/21 13:13 Dose: Not Given Documented by: Ascorbic Acid (Ascorbic Acid 500 Mg Tab) 1,000 mg PO BID [facility] Last Admin: 02/06/21 09:30 Dose: 1,000 mg Documented by: Cholecalciferol (Cholecalciferol (Vit D3) 5,000 Unit Tab) 5,000 unit PO DAILY [facility] Last Admin: 02/06/21 13:13 Dose: Not Given Documented by: Divalproex Sodium (Divalproex Er 500 Mg Tab) 500 mg PO QDAY [facility] Last Admin: 02/06/21 13:13 Dose: Not Given Documented by: Famotidine (Famotidine 20 Mg Tab) 20 mg PO BID [facility] Last Admin: 02/06/21 09:30 Dose: 20 mg Documented by: Furosemide (Furosemide 40 Mg/4 Ml Inj) 40 mg IV QDAY [facility] Stop: 02/07/21 10:01 Last Admin: 02/06/21 09:29 Dose: 40 mg Documented by: Hydralazine HCl (Hydralazine 20 Mg/1 Ml Inj) 10 mg IV Q6H PRN PRN Reason: htn Last Admin: 01/24/21 23:12 Dose: 10 mg Documented by: Hydromorphone HCl (Hydromorphone 1 Mg/1 Ml Inj) 0.5 mg IV Q6H PRN PRN Reason: Pain , Severe (7-10) Hydrophilic Ointment (Petrolatum,White 30 Gm Oint) 1 applic TP PRN PRN PRN Reason: Skin Irritation Insulin Glargine (Insulin Glargine 100 Units/Ml) 20 units SUB-Q QHS [facility] Last Admin: 02/05/21 21:54 Dose: 20 units Documented by: Insulin Human Lispro (Insulin Lispro 100 Unit/Ml) 0 unit SUB-Q [facility]; Protocol Last Admin: 02/06/21 16:18 Dose: Not Given Documented by: Metoprolol Tartrate (Metoprolol Tartrate 25 Mg Tab) 12.5 mg PO BID [facility] Last Admin: 02/06/21 09:30 Dose: 12.5 mg Documented by: Mirtazapine (Mirtazapine 15 Mg Tab) 7.5 mg PO QHS [facility] Last Admin: 02/05/21 22:39 Dose: 7.5 mg Documented by: Ondansetron HCl (Ondansetron 4 Mg/2 Ml Inj) 4 mg IV Q8H PRN PRN Reason: Nausea And Vomiting Oxymetazoline HCl (Oxymetazoline 0.05% Nasal Debary) 2 spray NS Q12H PRN PRN Reason: Congestion Last Admin: 02/03/21 13:17 Dose: 2 spray Documented by: Paliperidone (Paliperidone Er 3 Mg Tab) 6 mg PO QDAY [facility] Last Admin: 02/06/21 13:13 Dose: Not Given Documented by: Sodium Chloride (Sodium Chloride 0.9% 10 Ml Flush Syringe) 10 ml IV BID [facility] Last Admin: 02/06/21 09:33 Dose: 10 ml Documented by: Sodium Chloride (Sodium Chloride 0.9% 10 Ml Flush Syringe) 10 ml IV PRN PRN PRN Reason: LINE FLUSH Zinc Sulfate (Zinc Sulfate 220 Mg Cap) 220 mg PO QDAY [facility] Last Admin: 02/06/21 09:30 Dose: 220 mg Documented by: Objective Vital Signs - 12hr 02/06/21 02/06/21 02/06/21 06:30 07:00 07:30 Temperature Pulse Rate 104 H 105 H 102 H Pulse Rate [ 110 H From Monitor] Pulse Rate [ Posterior Bilateral Throughout] Respiratory 18 Rate Respiratory Rate [Posterior Bilateral Throughout] Blood Pressure 120/66 134/77 134/77 O2 Sat by Pulse 97 97 96 Oximetry 02/06/21 02/06/21 02/06/21 07:38 08:00 08:30 Temperature 98.3 F Pulse Rate 106 H 123 H Pulse Rate [ From Monitor] Pulse Rate [ 122 H Posterior Bilateral Throughout] Respiratory Rate Respiratory 19 Rate [Posterior Bilateral Throughout] Blood Pressure 122/61 122/61 O2 Sat by Pulse 99 93 Oximetry 02/06/21 02/06/21 02/06/21 09:00 09:30 10:00 Temperature Pulse Rate 124 H 120 H 113 H Pulse Rate [ From Monitor] Pulse Rate [ Posterior Bilateral Throughout] Respiratory Rate Respiratory Rate [Posterior Bilateral Throughout] Blood Pressure 114/54 114/54 154/93 O2 Sat by Pulse 91 98 Oximetry 02/06/21 02/06/21 02/06/21 10:30 11:00 11:30 Temperature Pulse Rate 113 H 114 H 109 H Pulse Rate [ 115 H From Monitor] Pulse Rate [ Posterior Bilateral Throughout] Respiratory 18 Rate Respiratory Rate [Posterior Bilateral Throughout] Blood Pressure 114/54 131/87 131/87 O2 Sat by Pulse 99 98 97 Oximetry 02/06/21 02/06/21 02/06/21 12:00 12:29 12:30 Temperature 98.2 F Pulse Rate 106 H 122 H Pulse Rate [ From Monitor] Pulse Rate [ Posterior Bilateral Throughout] Respiratory Rate Respiratory Rate [Posterior Bilateral Throughout] Blood Pressure 143/88 143/88 O2 Sat by Pulse 94 94 Oximetry 02/06/21 02/06/21 02/06/21 13:00 13:30 14:00 Temperature Pulse Rate 118 H 117 H 119 H Pulse Rate [ From Monitor] Pulse Rate [ 110 H Posterior Bilateral Throughout] Respiratory Rate Respiratory 19 Rate [Posterior Bilateral Throughout] Blood Pressure 117/87 117/87 135/90 O2 Sat by Pulse 96 97 99 Oximetry 02/06/21 02/06/21 02/06/21 14:30 15:00 15:30 Temperature Pulse Rate 113 H 111 H 117 H Pulse Rate [ 110 H From Monitor] Pulse Rate [ Posterior Bilateral Throughout] Respiratory 18 Rate Respiratory Rate [Posterior Bilateral Throughout] Blood Pressure 135/90 134/81 134/81 O2 Sat by Pulse 99 96 95 Oximetry 02/06/21 02/06/21 16:00 16:27 Temperature 98.1 F Pulse Rate 112 H Pulse Rate [ From Monitor] Pulse Rate [ Posterior Bilateral Throughout] Respiratory Rate Respiratory Rate [Posterior Bilateral Throughout] Blood Pressure 136/75 O2 Sat by Pulse 95 Oximetry Constitutional: no acute distress, alert Eyes: non-icteric ENT: oropharynx moist Neck: supple, other (large in circumference) Effort: normal Ascultation: Bilateral: clear Cardiovascular: other (tachy, RR; no mrg) Gastrointestinal: normoactive bowel sounds, soft, non-tender, non-distended Integumentary: normal Extremities: no cyanosis, no edema, pink and warm Neurologic: normal mental status, non-focal exam, pupils equal and round Psychiatric: mood appropriate, affect normal CBC and BMP: 02/06/21 04:43 02/06/21 04:43 ABG, PT/INR, D-dimer: ABG ABG pH 7.418 pH Units (7.350-7.450) 02/04/21 12:45 ABG pCO2 48.7 mm Hg 02/04/21 12:45 ABG pO2 65.6 mm Hg (80.0-90.0) L 02/04/21 12:45 ABG O2 Saturation 94.0 % (95.0-99.0) L 02/04/21 12:45 PT/INR, D-dimer PT 13.6 Sec. (12.2-14.9) 02/04/21 14:52 INR 1.06 (0.87-1.13) 02/04/21 14:52 D-Dimer 1884.49 ng/mlDDU (0-234) H 01/28/21 08:46 Abnormal lab findings: Abnormal Labs 01/17/21 01/17/21 01/17/21 09:25 16:41 16:41 WBC RBC 5.23 H Hgb MCV 76 L MCH 24 L RDW Lymph % (Auto) 9.4 L Sharkey % (Auto) Lymph # (Auto) 0.8 L Seg Neutrophils % 85.4 H Seg Neuts % (Manual) Lymphocytes % (Manual) Seg Neutrophils # Seg Neutrophils # Man D-Dimer ABG pH ABG pO2 ABG HCO3 ABG O2 Saturation ABG Base Excess ABG Hemoglobin Oxyhemoglobin Sodium 128 L Chloride 90.8 L Carbon Dioxide BUN Creatinine Glucose 372 H POC Glucose Calcium Ferritin AST 98 H Lactate Dehydrogenase C-Reactive Protein Total Protein Albumin 3.2 L Coronavirus (PCR) Positive A 01/17/21 01/17/21 01/17/21 17:46 17:46 17:46 WBC RBC Hgb MCV MCH RDW Lymph % (Auto) Sharkey % (Auto) Lymph # (Auto) Seg Neutrophils % Seg Neuts % (Manual) Lymphocytes % (Manual) Seg Neutrophils # Seg Neutrophils # Man D-Dimer 1058.54 H ABG pH ABG pO2 ABG HCO3 ABG O2 Saturation ABG Base Excess ABG Hemoglobin Oxyhemoglobin Sodium Chloride Carbon Dioxide BUN Creatinine Glucose 369 H POC Glucose Calcium Ferritin 668.4 H AST Lactate Dehydrogenase 519 H C-Reactive Protein 19.20 H Total Protein Albumin Coronavirus (PCR) 01/18/21 01/18/21 01/19/21 09:01 17:18 05:11 WBC 14.2 H RBC Hgb MCV 74 L MCH 23 L RDW Lymph % (Auto) Sharkey % (Auto) Lymph # (Auto) Seg Neutrophils % Seg Neuts % (Manual) 88.0 H Lymphocytes % (Manual) 10.0 L Seg Neutrophils # Seg Neutrophils # Man 12.5 H D-Dimer ABG pH 7.461 H ABG pO2 53.1 L ABG HCO3 ABG O2 Saturation 89.4 L ABG Base Excess ABG Hemoglobin Oxyhemoglobin 88.0 L Sodium 132 L Chloride 93.6 L Carbon Dioxide BUN 18 H Creatinine Glucose 367 H POC Glucose Calcium 7.8 L Ferritin AST Lactate Dehydrogenase C-Reactive Protein Total Protein Albumin Coronavirus (PCR) 01/19/21 01/19/21 01/19/21 05:11 11:06 14:43 WBC RBC Hgb MCV MCH RDW Lymph % (Auto) [place]key % (Auto) Lymph # (Auto) Seg Neutrophils % Seg Neuts % (Manual) Lymphocytes % (Manual) Seg Neutrophils # Seg Neutrophils # Man D-Dimer ABG pH ABG pO2 ABG HCO3 ABG O2 Saturation ABG Base Excess ABG Hemoglobin Oxyhemoglobin Sodium Chloride Carbon Dioxide BUN 18 H Creatinine Glucose 304 H 379 H POC Glucose 382 H Calcium 8.3 L Ferritin AST 92 H 96 H Lactate Dehydrogenase C-Reactive Protein Total Protein Albumin 3.0 L 3.0 L Coronavirus (PCR) 01/19/21 01/19/21 01/20/21 16:18 22:18 07:31 WBC RBC Hgb MCV MCH RDW Lymph % (Auto) [place]key % (Auto) Lymph # (Auto) Seg Neutrophils % Seg Neuts % (Manual) Lymphocytes % (Manual) Seg Neutrophils # Seg Neutrophils # Man D-Dimer ABG pH ABG pO2 ABG HCO3 ABG O2 Saturation ABG Base Excess ABG Hemoglobin Oxyhemoglobin Sodium Chloride Carbon Dioxide BUN Creatinine Glucose POC Glucose 374 H 341 H 344 H Calcium Ferritin AST Lactate Dehydrogenase C-Reactive Protein Total Protein Albumin Coronavirus (PCR) 01/20/21 01/20/21 01/20/21 07:33 12:14 13:54 WBC RBC Hgb MCV MCH RDW Lymph % (Auto) [place]key % (Auto) Lymph # (Auto) Seg Neutrophils % Seg Neuts % (Manual) Lymphocytes % (Manual) Seg Neutrophils # Seg Neutrophils # Man D-Dimer ABG pH ABG pO2 ABG HCO3 ABG O2 Saturation ABG Base Excess ABG Hemoglobin Oxyhemoglobin Sodium Chloride Carbon Dioxide BUN 32 H 31 H Creatinine Glucose 343 H 396 H POC Glucose 365 H Calcium Ferritin AST 57 H 54 H Lactate Dehydrogenase C-Reactive Protein Total Protein 8.3 H Albumin 2.7 L 3.1 L Coronavirus (PCR) 01/20/21 01/20/21 01/21/21 18:28 21:25 04:45 WBC RBC Hgb MCV MCH RDW Lymph % (Auto) [place]key % (Auto) Lymph # (Auto) Seg Neutrophils % Seg Neuts % (Manual) Lymphocytes % (Manual) Seg Neutrophils # Seg Neutrophils # Man D-Dimer ABG pH ABG pO2 ABG HCO3 ABG O2 Saturation ABG Base Excess ABG Hemoglobin Oxyhemoglobin Sodium Chloride Carbon Dioxide 31 H BUN 41 H Creatinine Glucose 377 H POC Glucose 403 H 340 H Calcium Ferritin AST Lactate Dehydrogenase C-Reactive Protein Total Protein 8.3 H Albumin 3.0 L Coronavirus (PCR) 01/21/21 01/21/21 01/21/21 04:45 04:45 04:45 WBC RBC Hgb MCV MCH RDW Lymph % (Auto) Sharkey % (Auto) Lymph # (Auto) Seg Neutrophils % Seg Neuts % (Manual) Lymphocytes % (Manual) Seg Neutrophils # Seg Neutrophils # Man D-Dimer > 30640 H ABG pH ABG pO2 ABG HCO3 ABG O2 Saturation ABG Base Excess ABG Hemoglobin Oxyhemoglobin Sodium Chloride Carbon Dioxide BUN Creatinine Glucose POC Glucose Calcium Ferritin 1688.0 H AST Lactate Dehydrogenase 649 H C-Reactive Protein 17.00 H Total Protein Albumin Coronavirus (PCR) 01/21/21 01/21/21 01/21/21 09:45 11:29 12:09 WBC RBC Hgb MCV MCH RDW Lymph % (Auto) [place]key % (Auto) Lymph # (Auto) Seg Neutrophils % Seg Neuts % (Manual) Lymphocytes % (Manual) Seg Neutrophils # Seg Neutrophils # Man D-Dimer ABG pH ABG pO2 ABG HCO3 ABG O2 Saturation ABG Base Excess ABG Hemoglobin Oxyhemoglobin Sodium 151 H Chloride Carbon Dioxide BUN 40 H Creatinine Glucose 412 H POC Glucose 401 H 372 H Calcium Ferritin AST Lactate Dehydrogenase C-Reactive Protein Total Protein Albumin 3.4 L Coronavirus (PCR) 01/21/21 01/21/21 01/22/21 18:26 21:09 02:00 WBC RBC Hgb MCV MCH RDW Lymph % (Auto) [place]key % (Auto) Lymph # (Auto) Seg Neutrophils % Seg Neuts % (Manual) Lymphocytes % (Manual) Seg Neutrophils # Seg Neutrophils # Man D-Dimer ABG pH ABG pO2 ABG HCO3 ABG O2 Saturation ABG Base Excess ABG Hemoglobin Oxyhemoglobin Sodium Chloride Carbon Dioxide BUN Creatinine Glucose POC Glucose 376 H 322 H 231 H Calcium Ferritin AST Lactate Dehydrogenase C-Reactive Protein Total Protein Albumin Coronavirus (PCR) 01/22/21 01/22/21 01/22/21 05:24 08:25 08:25 WBC RBC 5.44 H Hgb MCV 75 L MCH 23 L RDW 15.5 H Lymph % (Auto) Sharkey % (Auto) Lymph # (Auto) Seg Neutrophils % Seg Neuts % (Manual) Lymphocytes % (Manual) Seg Neutrophils # Seg Neutrophils # Man D-Dimer ABG pH ABG pO2 ABG HCO3 ABG O2 Saturation ABG Base Excess ABG Hemoglobin Oxyhemoglobin Sodium 155 H Chloride 112.4 H Carbon Dioxide BUN 33 H Creatinine Glucose 274 H POC Glucose 275 H Calcium Ferritin AST Lactate Dehydrogenase C-Reactive Protein Total Protein Albumin Coronavirus (PCR) 01/22/21 01/22/21 01/22/21 11:53 16:03 21:41 WBC RBC Hgb MCV MCH RDW Lymph % (Auto) Sharkey % (Auto) Lymph # (Auto) Seg Neutrophils % Seg Neuts % (Manual) Lymphocytes % (Manual) Seg Neutrophils # Seg Neutrophils # Man D-Dimer ABG pH ABG pO2 ABG HCO3 ABG O2 Saturation ABG Base Excess ABG Hemoglobin Oxyhemoglobin Sodium Chloride Carbon Dioxide BUN Creatinine Glucose POC Glucose 265 H 293 H 279 H Calcium Ferritin AST Lactate Dehydrogenase C-Reactive Protein Total Protein Albumin Coronavirus (PCR) 01/23/21 01/23/21 01/23/21 02:03 05:46 05:59 WBC RBC Hgb MCV MCH RDW Lymph % (Auto) [place]key % (Auto) Lymph # (Auto) Seg Neutrophils % Seg Neuts % (Manual) Lymphocytes % (Manual) Seg Neutrophils # Seg Neutrophils # Man D-Dimer ABG pH ABG pO2 ABG HCO3 ABG O2 Saturation ABG Base Excess ABG Hemoglobin Oxyhemoglobin Sodium Chloride Carbon Dioxide BUN Creatinine Glucose POC Glucose 268 H 303 H Calcium Ferritin 1116.0 H AST Lactate Dehydrogenase C-Reactive Protein Total Protein Albumin Coronavirus (PCR) 01/23/21 01/23/21 01/23/21 05:59 07:42 09:11 WBC RBC Hgb MCV MCH RDW Lymph % (Auto) [place]key % (Auto) Lymph # (Auto) Seg Neutrophils % Seg Neuts % (Manual) Lymphocytes % (Manual) Seg Neutrophils # Seg Neutrophils # Man D-Dimer ABG pH ABG pO2 ABG HCO3 ABG O2 Saturation ABG Base Excess ABG Hemoglobin Oxyhemoglobin Sodium Chloride Carbon Dioxide BUN Creatinine Glucose POC Glucose 291 H 285 H Calcium Ferritin AST Lactate Dehydrogenase 680 H C-Reactive Protein 5.80 H Total Protein Albumin Coronavirus (PCR) 01/23/21 01/23/21 01/23/21 14:06 17:05 17:59 WBC RBC Hgb MCV MCH RDW Lymph % (Auto) [place]key % (Auto) Lymph # (Auto) Seg Neutrophils % Seg Neuts % (Manual) Lymphocytes % (Manual) Seg Neutrophils # Seg Neutrophils # Man D-Dimer ABG pH ABG pO2 ABG HCO3 ABG O2 Saturation ABG Base Excess ABG Hemoglobin Oxyhemoglobin Sodium Chloride Carbon Dioxide BUN Creatinine Glucose POC Glucose 228 H 300 H 278 H Calcium Ferritin AST Lactate Dehydrogenase C-Reactive Protein Total Protein Albumin Coronavirus (PCR) 01/23/21 01/24/21 01/24/21 21:43 02:14 05:15 WBC RBC Hgb MCV MCH RDW Lymph % (Auto) Sharkey % (Auto) Lymph # (Auto) Seg Neutrophils % Seg Neuts % (Manual) Lymphocytes % (Manual) Seg Neutrophils # Seg Neutrophils # Man D-Dimer ABG pH ABG pO2 ABG HCO3 ABG O2 Saturation ABG Base Excess ABG Hemoglobin Oxyhemoglobin Sodium Chloride Carbon Dioxide BUN Creatinine Glucose POC Glucose 223 H 427 H 392 H Calcium Ferritin AST Lactate Dehydrogenase C-Reactive Protein Total Protein Albumin Coronavirus (PCR) 01/24/21 01/24/21 01/24/21 07:03 07:03 09:10 WBC RBC 5.49 H Hgb MCV 75 L MCH 23 L RDW Lymph % (Auto) 7.0 L Sharkey % (Auto) Lymph # (Auto) 0.5 L Seg Neutrophils % 86.1 H Seg Neuts % (Manual) Lymphocytes % (Manual) Seg Neutrophils # Seg Neutrophils # Man D-Dimer ABG pH ABG pO2 ABG HCO3 ABG O2 Saturation ABG Base Excess ABG Hemoglobin Oxyhemoglobin Sodium 149 H Chloride 111.4 H Carbon Dioxide BUN 24 H Creatinine Glucose 339 H POC Glucose 284 H Calcium Ferritin AST Lactate Dehydrogenase C-Reactive Protein Total Protein Albumin Coronavirus (PCR) 01/24/21 01/24/21 01/24/21 13:47 18:30 21:58 WBC RBC Hgb MCV MCH RDW Lymph % (Auto) [place]key % (Auto) Lymph # (Auto) Seg Neutrophils % Seg Neuts % (Manual) Lymphocytes % (Manual) Seg Neutrophils # Seg Neutrophils # Man D-Dimer ABG pH ABG pO2 ABG HCO3 ABG O2 Saturation ABG Base Excess ABG Hemoglobin Oxyhemoglobin Sodium Chloride Carbon Dioxide BUN Creatinine Glucose POC Glucose 317 H 180 H 262 H Calcium Ferritin AST Lactate Dehydrogenase C-Reactive Protein Total Protein Albumin Coronavirus (PCR) 01/25/21 01/25/21 01/25/21 01:22 05:35 08:36 WBC RBC Hgb MCV MCH RDW Lymph % (Auto) [place]key % (Auto) Lymph # (Auto) Seg Neutrophils % Seg Neuts % (Manual) Lymphocytes % (Manual) Seg Neutrophils # Seg Neutrophils # Man D-Dimer ABG pH ABG pO2 ABG HCO3 ABG O2 Saturation ABG Base Excess ABG Hemoglobin Oxyhemoglobin Sodium Chloride Carbon Dioxide BUN Creatinine Glucose POC Glucose 280 H 243 H 216 H Calcium Ferritin AST Lactate Dehydrogenase C-Reactive Protein Total Protein Albumin Coronavirus (PCR) 01/25/21 01/25/21 01/25/21 15:14 15:14 15:14 WBC RBC Hgb MCV MCH RDW Lymph % (Auto) [place]key % (Auto) Lymph # (Auto) Seg Neutrophils % Seg Neuts % (Manual) Lymphocytes % (Manual) Seg Neutrophils # Seg Neutrophils # Man D-Dimer 6312.54 H ABG pH ABG pO2 ABG HCO3 ABG O2 Saturation ABG Base Excess ABG Hemoglobin Oxyhemoglobin Sodium 146 H Chloride 108.1 H Carbon Dioxide BUN 19 H Creatinine Glucose 287 H POC Glucose Calcium 8.3 L Ferritin 869.5 H AST Lactate Dehydrogenase 685 H C-Reactive Protein Total Protein Albumin Coronavirus (PCR) 01/25/21 01/25/21 01/26/21 16:06 21:18 01:47 WBC RBC Hgb MCV MCH RDW Lymph % (Auto) [place]key % (Auto) Lymph # (Auto) Seg Neutrophils % Seg Neuts % (Manual) Lymphocytes % (Manual) Seg Neutrophils # Seg Neutrophils # Man D-Dimer ABG pH ABG pO2 ABG HCO3 ABG O2 Saturation ABG Base Excess ABG Hemoglobin Oxyhemoglobin Sodium Chloride Carbon Dioxide BUN Creatinine Glucose POC Glucose 267 H 197 H 255 H Calcium Ferritin AST Lactate Dehydrogenase C-Reactive Protein Total Protein Albumin Coronavirus (PCR) 01/26/21 01/26/21 01/26/21 05:23 05:23 05:23 WBC RBC Hgb MCV MCH RDW Lymph % (Auto) [place]key % (Auto) Lymph # (Auto) Seg Neutrophils % Seg Neuts % (Manual) Lymphocytes % (Manual) Seg Neutrophils # Seg Neutrophils # Man D-Dimer 5809.58 H ABG pH ABG pO2 ABG HCO3 ABG O2 Saturation ABG Base Excess ABG Hemoglobin Oxyhemoglobin Sodium 149 H Chloride 109.3 H Carbon Dioxide BUN 24 H Creatinine Glucose 362 H POC Glucose Calcium Ferritin 877.1 H AST Lactate Dehydrogenase 655 H C-Reactive Protein Total Protein Albumin Coronavirus (PCR) 01/26/21 01/26/21 01/26/21 05:23 06:06 09:28 WBC RBC 5.49 H Hgb MCV 77 L MCH 23 L RDW Lymph % (Auto) [place]key % (Auto) Lymph # (Auto) 0.8 L Seg Neutrophils % 78.9 H Seg Neuts % (Manual) Lymphocytes % (Manual) Seg Neutrophils # Seg Neutrophils # Man D-Dimer ABG pH ABG pO2 ABG HCO3 ABG O2 Saturation ABG Base Excess ABG Hemoglobin Oxyhemoglobin Sodium Chloride Carbon Dioxide BUN Creatinine Glucose POC Glucose 387 H 308 H Calcium Ferritin AST Lactate Dehydrogenase C-Reactive Protein Total Protein Albumin Coronavirus (PCR) 01/26/21 01/26/21 01/27/21 15:56 21:28 02:51 WBC RBC Hgb MCV MCH RDW Lymph % (Auto) [place]key % (Auto) Lymph # (Auto) Seg Neutrophils % Seg Neuts % (Manual) Lymphocytes % (Manual) Seg Neutrophils # Seg Neutrophils # Man D-Dimer ABG pH ABG pO2 ABG HCO3 ABG O2 Saturation ABG Base Excess ABG Hemoglobin Oxyhemoglobin Sodium Chloride Carbon Dioxide BUN Creatinine Glucose POC Glucose 172 H 316 H 267 H Calcium Ferritin AST Lactate Dehydrogenase C-Reactive Protein Total Protein Albumin Coronavirus (PCR) 01/27/21 01/27/21 01/27/21 04:22 04:22 04:22 WBC RBC Hgb MCV MCH RDW Lymph % (Auto) [place]key % (Auto) Lymph # (Auto) Seg Neutrophils % Seg Neuts % (Manual) Lymphocytes % (Manual) Seg Neutrophils # Seg Neutrophils # Man D-Dimer 4046.06 H ABG pH ABG pO2 ABG HCO3 ABG O2 Saturation ABG Base Excess ABG Hemoglobin Oxyhemoglobin Sodium Chloride 107.7 H Carbon Dioxide BUN 30 H Creatinine Glucose 281 H POC Glucose Calcium Ferritin 812.2 H AST Lactate Dehydrogenase 570 H C-Reactive Protein Total Protein Albumin Coronavirus (PCR) 01/27/21 01/27/21 01/27/21 04:22 05:55 12:00 WBC RBC 5.15 H Hgb MCV 76 L MCH 23 L RDW 15.5 H Lymph % (Auto) 12.7 L Sharkey % (Auto) Lymph # (Auto) 0.9 L Seg Neutrophils % 81.3 H Seg Neuts % (Manual) Lymphocytes % (Manual) Seg Neutrophils # Seg Neutrophils # Man D-Dimer ABG pH ABG pO2 ABG HCO3 ABG O2 Saturation ABG Base Excess ABG Hemoglobin Oxyhemoglobin Sodium Chloride Carbon Dioxide BUN Creatinine Glucose POC Glucose 275 H 121 H Calcium Ferritin AST Lactate Dehydrogenase C-Reactive Protein Total Protein Albumin Coronavirus (PCR) 01/27/21 01/27/21 01/28/21 17:32 21:23 02:08 WBC RBC Hgb MCV MCH RDW Lymph % (Auto) [place]key % (Auto) Lymph # (Auto) Seg Neutrophils % Seg Neuts % (Manual) Lymphocytes % (Manual) Seg Neutrophils # Seg Neutrophils # Man D-Dimer ABG pH ABG pO2 ABG HCO3 ABG O2 Saturation ABG Base Excess ABG Hemoglobin Oxyhemoglobin Sodium Chloride Carbon Dioxide BUN Creatinine Glucose POC Glucose 195 H 179 H 210 H Calcium Ferritin AST Lactate Dehydrogenase C-Reactive Protein Total Protein Albumin Coronavirus (PCR) 01/28/21 01/28/21 01/28/21 05:09 08:44 08:46 WBC RBC Hgb MCV MCH RDW Lymph % (Auto) [place]key % (Auto) Lymph # (Auto) Seg Neutrophils % Seg Neuts % (Manual) Lymphocytes % (Manual) Seg Neutrophils # Seg Neutrophils # Man D-Dimer 1884.49 H ABG pH ABG pO2 ABG HCO3 ABG O2 Saturation ABG Base Excess ABG Hemoglobin Oxyhemoglobin Sodium Chloride Carbon Dioxide BUN Creatinine Glucose POC Glucose 202 H 191 H Calcium Ferritin AST Lactate Dehydrogenase C-Reactive Protein Total Protein Albumin Coronavirus (PCR) 01/28/21 01/28/21 01/28/21 08:46 08:46 12:18 WBC RBC Hgb MCV MCH RDW Lymph % (Auto) [place]key % (Auto) Lymph # (Auto) Seg Neutrophils % Seg Neuts % (Manual) Lymphocytes % (Manual) Seg Neutrophils # Seg Neutrophils # Man D-Dimer ABG pH ABG pO2 ABG HCO3 ABG O2 Saturation ABG Base Excess ABG Hemoglobin Oxyhemoglobin Sodium Chloride Carbon Dioxide BUN Creatinine Glucose POC Glucose 221 H Calcium Ferritin 797.7 H AST Lactate Dehydrogenase 556 H C-Reactive Protein Total Protein Albumin Coronavirus (PCR) 01/28/21 01/28/21 01/29/21 18:21 21:45 01:48 WBC RBC Hgb MCV MCH RDW Lymph % (Auto) [place]key % (Auto) Lymph # (Auto) Seg Neutrophils % Seg Neuts % (Manual) Lymphocytes % (Manual) Seg Neutrophils # Seg Neutrophils # Man D-Dimer ABG pH ABG pO2 ABG HCO3 ABG O2 Saturation ABG Base Excess ABG Hemoglobin Oxyhemoglobin Sodium Chloride Carbon Dioxide BUN Creatinine Glucose POC Glucose 214 H 148 H 248 H Calcium Ferritin AST Lactate Dehydrogenase C-Reactive Protein Total Protein Albumin Coronavirus (PCR) 01/29/21 01/29/21 01/29/21 05:17 10:17 11:39 WBC RBC Hgb MCV MCH RDW Lymph % (Auto) [place]key % (Auto) Lymph # (Auto) Seg Neutrophils % Seg Neuts % (Manual) Lymphocytes % (Manual) Seg Neutrophils # Seg Neutrophils # Man D-Dimer ABG pH ABG pO2 ABG HCO3 ABG O2 Saturation ABG Base Excess ABG Hemoglobin Oxyhemoglobin Sodium Chloride Carbon Dioxide BUN Creatinine Glucose POC Glucose 256 H 193 H 177 H Calcium Ferritin AST Lactate Dehydrogenase C-Reactive Protein Total Protein Albumin Coronavirus (PCR) 01/29/21 01/29/21 01/30/21 18:06 20:24 06:07 WBC RBC Hgb MCV MCH RDW Lymph % (Auto) [place]key % (Auto) Lymph # (Auto) Seg Neutrophils % Seg Neuts % (Manual) Lymphocytes % (Manual) Seg Neutrophils # Seg Neutrophils # Man D-Dimer ABG pH ABG pO2 ABG HCO3 ABG O2 Saturation ABG Base Excess ABG Hemoglobin Oxyhemoglobin Sodium Chloride Carbon Dioxide BUN Creatinine Glucose POC Glucose 107 H 114 H 114 H Calcium Ferritin AST Lactate Dehydrogenase C-Reactive Protein Total Protein Albumin Coronavirus (PCR) 01/30/21 01/30/21 01/30/21 12:08 16:11 21:19 WBC RBC Hgb MCV MCH RDW Lymph % (Auto) Sharkey % (Auto) Lymph # (Auto) Seg Neutrophils % Seg Neuts % (Manual) Lymphocytes % (Manual) Seg Neutrophils # Seg Neutrophils # Man D-Dimer ABG pH ABG pO2 ABG HCO3 ABG O2 Saturation ABG Base Excess ABG Hemoglobin Oxyhemoglobin Sodium Chloride Carbon Dioxide BUN Creatinine Glucose POC Glucose 178 H 142 H 244 H Calcium Ferritin AST Lactate Dehydrogenase C-Reactive Protein Total Protein Albumin Coronavirus (PCR) 01/31/21 01/31/21 01/31/21 05:30 06:42 07:50 WBC RBC Hgb MCV MCH RDW Lymph % (Auto) Sharkey % (Auto) Lymph # (Auto) Seg Neutrophils % Seg Neuts % (Manual) Lymphocytes % (Manual) Seg Neutrophils # Seg Neutrophils # Man D-Dimer ABG pH ABG pO2 ABG HCO3 ABG O2 Saturation ABG Base Excess ABG Hemoglobin Oxyhemoglobin Sodium Chloride Carbon Dioxide BUN 20 H Creatinine Glucose 160 H POC Glucose 164 H 152 H Calcium 8.0 L Ferritin AST Lactate Dehydrogenase C-Reactive Protein Total Protein Albumin Coronavirus (PCR) 01/31/21 01/31/21 01/31/21 11:40 16:37 21:01 WBC RBC Hgb MCV MCH RDW Lymph % (Auto) Sharkey % (Auto) Lymph # (Auto) Seg Neutrophils % Seg Neuts % (Manual) Lymphocytes % (Manual) Seg Neutrophils # Seg Neutrophils # Man D-Dimer ABG pH ABG pO2 ABG HCO3 ABG O2 Saturation ABG Base Excess ABG Hemoglobin Oxyhemoglobin Sodium Chloride Carbon Dioxide BUN Creatinine Glucose POC Glucose 129 H 141 H 125 H Calcium Ferritin AST Lactate Dehydrogenase C-Reactive Protein Total Protein Albumin Coronavirus (PCR) 02/01/21 02/01/21 02/01/21 06:26 11:15 16:11 WBC RBC Hgb MCV MCH RDW Lymph % (Auto) Sharkey % (Auto) Lymph # (Auto) Seg Neutrophils % Seg Neuts % (Manual) Lymphocytes % (Manual) Seg Neutrophils # Seg Neutrophils # Man D-Dimer ABG pH ABG pO2 ABG HCO3 ABG O2 Saturation ABG Base Excess ABG Hemoglobin Oxyhemoglobin Sodium Chloride Carbon Dioxide BUN Creatinine Glucose POC Glucose 136 H 260 H 240 H Calcium Ferritin AST Lactate Dehydrogenase C-Reactive Protein Total Protein Albumin Coronavirus (PCR) 02/01/21 02/02/21 02/02/21 22:32 07:15 07:56 WBC 3.1 L RBC Hgb MCV 75 L MCH 23 L RDW Lymph % (Auto) 44.9 H Sharkey % (Auto) 9.2 H Lymph # (Auto) Seg Neutrophils % Seg Neuts % (Manual) Lymphocytes % (Manual) Seg Neutrophils # 1.3 L Seg Neutrophils # Man D-Dimer ABG pH ABG pO2 ABG HCO3 ABG O2 Saturation ABG Base Excess ABG Hemoglobin Oxyhemoglobin Sodium Chloride Carbon Dioxide BUN Creatinine Glucose POC Glucose 298 H 164 H Calcium Ferritin AST Lactate Dehydrogenase C-Reactive Protein Total Protein Albumin Coronavirus (PCR) 02/02/21 02/02/21 02/02/21 07:56 11:35 16:07 WBC RBC Hgb MCV MCH RDW Lymph % (Auto) Sharkey % (Auto) Lymph # (Auto) Seg Neutrophils % Seg Neuts % (Manual) Lymphocytes % (Manual) Seg Neutrophils # Seg Neutrophils # Man D-Dimer ABG pH ABG pO2 ABG HCO3 ABG O2 Saturation ABG Base Excess ABG Hemoglobin Oxyhemoglobin Sodium Chloride Carbon Dioxide 31 H BUN Creatinine 0.4 L Glucose 159 H POC Glucose 297 H 252 H Calcium 8.2 L Ferritin AST Lactate Dehydrogenase C-Reactive Protein Total Protein Albumin Coronavirus (PCR) 02/02/21 02/03/21 02/03/21 22:33 17:04 22:17 WBC RBC Hgb MCV MCH RDW Lymph % (Auto) [place]key % (Auto) Lymph # (Auto) Seg Neutrophils % Seg Neuts % (Manual) Lymphocytes % (Manual) Seg Neutrophils # Seg Neutrophils # Man D-Dimer ABG pH ABG pO2 ABG HCO3 ABG O2 Saturation ABG Base Excess ABG Hemoglobin Oxyhemoglobin Sodium Chloride Carbon Dioxide BUN Creatinine Glucose POC Glucose 257 H 247 H 278 H Calcium Ferritin AST Lactate Dehydrogenase C-Reactive Protein Total Protein Albumin Coronavirus (PCR) 02/04/21 02/04/21 02/04/21 05:41 07:55 11:56 WBC RBC Hgb MCV MCH RDW Lymph % (Auto) [place]key % (Auto) Lymph # (Auto) Seg Neutrophils % Seg Neuts % (Manual) Lymphocytes % (Manual) Seg Neutrophils # Seg Neutrophils # Man D-Dimer ABG pH ABG pO2 ABG HCO3 ABG O2 Saturation ABG Base Excess ABG Hemoglobin Oxyhemoglobin Sodium Chloride Carbon Dioxide 31 H BUN 19 H Creatinine 0.5 L Glucose 184 H POC Glucose 182 H 227 H Calcium Ferritin AST Lactate Dehydrogenase C-Reactive Protein Total Protein Albumin Coronavirus (PCR) 02/04/21 02/04/21 02/04/21 12:45 14:52 16:45 WBC 4.0 L RBC Hgb MCV 77 L MCH 24 L RDW 15.5 H Lymph % (Auto) Sharkey % (Auto) Lymph # (Auto) Seg Neutrophils % Seg Neuts % (Manual) Lymphocytes % (Manual) Seg Neutrophils # Seg Neutrophils # Man D-Dimer ABG pH ABG pO2 65.6 L ABG HCO3 30.8 H ABG O2 Saturation 94.0 L ABG Base Excess 5.5 H ABG Hemoglobin 10.3 L Oxyhemoglobin 92.3 L Sodium Chloride Carbon Dioxide BUN Creatinine Glucose POC Glucose 194 H Calcium Ferritin AST Lactate Dehydrogenase C-Reactive Protein Total Protein Albumin Coronavirus (PCR) 02/04/21 02/05/21 02/05/21 22:00 06:55 07:49 WBC RBC Hgb 10.0 L MCV MCH RDW Lymph % (Auto) [place]key % (Auto) Lymph # (Auto) Seg Neutrophils % Seg Neuts % (Manual) Lymphocytes % (Manual) Seg Neutrophils # Seg Neutrophils # Man D-Dimer ABG pH ABG pO2 ABG HCO3 ABG O2 Saturation ABG Base Excess ABG Hemoglobin Oxyhemoglobin Sodium Chloride Carbon Dioxide BUN Creatinine Glucose POC Glucose 281 H 204 H Calcium Ferritin AST Lactate Dehydrogenase C-Reactive Protein Total Protein Albumin Coronavirus (PCR) 02/05/21 02/05/21 02/05/21 11:23 16:13 16:22 WBC RBC Hgb 10.0 L MCV MCH RDW Lymph % (Auto) [place]key % (Auto) Lymph # (Auto) Seg Neutrophils % Seg Neuts % (Manual) Lymphocytes % (Manual) Seg Neutrophils # Seg Neutrophils # Man D-Dimer ABG pH ABG pO2 ABG HCO3 ABG O2 Saturation ABG Base Excess ABG Hemoglobin Oxyhemoglobin Sodium Chloride Carbon Dioxide BUN Creatinine Glucose POC Glucose 264 H 202 H Calcium Ferritin AST Lactate Dehydrogenase C-Reactive Protein Total Protein Albumin Coronavirus (PCR) 02/05/21 02/06/21 02/06/21 21:14 04:43 04:43 WBC 4.0 L RBC Hgb 10.0 L MCV 76 L MCH 23 L RDW 15.7 H Lymph % (Auto) [place]key % (Auto) Lymph # (Auto) Seg Neutrophils % Seg Neuts % (Manual) Lymphocytes % (Manual) Seg Neutrophils # Seg Neutrophils # Man D-Dimer ABG pH ABG pO2 ABG HCO3 ABG O2 Saturation ABG Base Excess ABG Hemoglobin Oxyhemoglobin Sodium Chloride Carbon Dioxide 32 H BUN Creatinine 0.4 L Glucose 163 H POC Glucose 180 H Calcium 8.3 L Ferritin AST Lactate Dehydrogenase C-Reactive Protein Total Protein Albumin Coronavirus (PCR) 02/06/21 02/06/21 08:01 11:44 WBC RBC Hgb MCV MCH RDW Lymph % (Auto) [place]key % (Auto) Lymph # (Auto) Seg Neutrophils % Seg Neuts % (Manual) Lymphocytes % (Manual) Seg Neutrophils # Seg Neutrophils # Man D-Dimer ABG pH ABG pO2 ABG HCO3 ABG O2 Saturation ABG Base Excess ABG Hemoglobin Oxyhemoglobin Sodium Chloride Carbon Dioxide BUN Creatinine Glucose POC Glucose 155 H 215 H Calcium Ferritin AST Lactate Dehydrogenase C-Reactive Protein Total Protein Albumin Coronavirus (PCR) Chest x-ray: report reviewed, image reviewed
[2021-02-06] MEDS: INSULIN GLARGINE 100 UNITS/ML SUB-Q SCH (21:53)
[2021-02-06] MEDS: MIRTAZAPINE 15 MG TAB PO SCH (21:54)
[2021-02-07] MEDS: IPRATROPIUM/ALBUTEROL SULFATE 3 ML AMPUL.NEB IH SCH ×3 (08:40→19:32)
[2021-02-07] MEDS: APIXABAN 2.5 MG TAB PO SCH ×2 (09:18→21:49)
[2021-02-07] MEDS: FAMOTIDINE 20 MG TAB PO SCH ×2 (09:18→21:50)
[2021-02-07] MEDS: PALIPERIDONE ER 3 MG TAB PO SCH (09:18)
[2021-02-07] MEDS: ASCORBIC ACID 500 MG TAB PO SCH ×2 (09:18→21:54)
[2021-02-07] MEDS: CHOLECALCIFEROL (VIT D3) 5,000 UNIT TAB PO SCH (09:18)
[2021-02-07] MEDS: DIVALPROEX ER 500 MG TAB PO SCH (09:18)
[2021-02-07] MEDS: ARIPiprazole 15 MG TAB PO SCH (09:19)
[2021-02-07] MEDS: FUROSEMIDE 40 MG/4 ML INJ IV SCH (09:19)
[2021-02-07] MEDS: METOPROLOL TARTRATE 25 MG TAB PO SCH ×2 (09:19→21:51)
[2021-02-07] MEDS: ZINC SULFATE 220 MG CAP PO SCH (09:20)
[2021-02-07] MEDS: INSULIN LISPRO 100 UNIT/ML SUB-Q SCH ×3 (14:34→22:26)
--- NOTE | 2021-02-07 15:27 | Progress Note ---
Assessment and Plan Imp: 1. Covid-19 w/ viral pneumonia 2. ARDS 3. Acute resp. failure, hypoxia 4. Hypernatremia 5. Obesity Rec: 1. S/p Decadaron IV 2. S/p Remdesivir x 5 days 3. On Eliquis BID 4. Unable to prone due to lack of cooperation/compliance 5. Monitor inflammatory markers 6. Wean HFNC to keep sats 88% or >; asked RT to be more aggressive with weaning 7. Complex decision-making; guarded prognosis Plan of care reviewed w/ patient, she understands/agrees Subjective Date of service: 02/07/21 Principal diagnosis: Covid-19 Interval history: No events. Awake, alert. On HFNC at 75% FiO2 and 35LPM. SOB better. No new complaints. Per RN notes she is refusing PO meds. Active Medications Acetaminophen (Acetaminophen 325 Mg Tab) 650 mg PO Q4H PRN PRN Reason: Pain MILD(1-3)/Fever >100.5/PAN Last Admin: 01/22/21 23:46 Dose: 650 mg Documented by: Albuterol/Ipratropium (Ipratropium/Albuterol Sulfate 3 Ml Ampul.Neb) 1 ampul IH TIDRT [facility] Last Admin: 02/07/21 13:59 Dose: 1 ampul Documented by: Apixaban (Apixaban 2.5 Mg Tab) 2.5 mg PO Q12HR [facility]; Protocol Last Admin: 02/07/21 09:18 Dose: 2.5 mg Documented by: Aripiprazole (Aripiprazole 15 Mg Tab) 15 mg PO QDAY [facility] Last Admin: 02/07/21 09:19 Dose: 15 mg Documented by: Ascorbic Acid (Ascorbic Acid 500 Mg Tab) 1,000 mg PO BID [facility] Last Admin: 02/07/21 09:18 Dose: 1,000 mg Documented by: Cholecalciferol (Cholecalciferol (Vit D3) 5,000 Unit Tab) 5,000 unit PO DAILY [facility] Last Admin: 02/07/21 09:18 Dose: 5,000 unit Documented by: Divalproex Sodium (Divalproex Er 500 Mg Tab) 500 mg PO QDAY [facility] Last Admin: 02/07/21 09:18 Dose: 500 mg Documented by: Famotidine (Famotidine 20 Mg Tab) 20 mg PO BID [facility] Last Admin: 02/07/21 09:18 Dose: 20 mg Documented by: Hydralazine HCl (Hydralazine 20 Mg/1 Ml Inj) 10 mg IV Q6H PRN PRN Reason: htn Last Admin: 01/24/21 23:12 Dose: 10 mg Documented by: Hydromorphone HCl (Hydromorphone 1 Mg/1 Ml Inj) 0.5 mg IV Q6H PRN PRN Reason: Pain , Severe (7-10) Hydrophilic Ointment (Petrolatum,White 30 Gm Oint) 1 applic TP PRN PRN PRN Reason: Skin Irritation Insulin Glargine (Insulin Glargine 100 Units/Ml) 20 units SUB-Q QHS [facility] Last Admin: 02/06/21 21:53 Dose: Not Given Documented by: Insulin Human Lispro (Insulin Lispro 100 Unit/Ml) 0 unit SUB-Q [facility]; Protocol Last Admin: 02/07/21 14:34 Dose: Not Given Documented by: Metoprolol Tartrate (Metoprolol Tartrate 25 Mg Tab) 12.5 mg PO BID [facility] Last Admin: 02/07/21 09:19 Dose: 12.5 mg Documented by: Mirtazapine (Mirtazapine 15 Mg Tab) 7.5 mg PO QHS [facility] Last Admin: 02/06/21 21:54 Dose: Not Given Documented by: Ondansetron HCl (Ondansetron 4 Mg/2 Ml Inj) 4 mg IV Q8H PRN PRN Reason: Nausea And Vomiting Oxymetazoline HCl (Oxymetazoline 0.05% Nasal [place]) 2 spray NS Q12H PRN PRN Reason: Congestion Last Admin: 02/03/21 13:17 Dose: 2 spray Documented by: Paliperidone (Paliperidone Er 3 Mg Tab) 6 mg PO QDAY [facility] Last Admin: 02/07/21 09:18 Dose: 6 mg Documented by: Sodium Chloride (Sodium Chloride 0.9% 10 Ml Flush Syringe) 10 ml IV BID [facility] Last Admin: 02/07/21 09:20 Dose: 10 ml Documented by: Sodium Chloride (Sodium Chloride 0.9% 10 Ml Flush Syringe) 10 ml IV PRN PRN PRN Reason: LINE FLUSH Zinc Sulfate (Zinc Sulfate 220 Mg Cap) 220 mg PO QDAY [facility] Last Admin: 02/07/21 09:20 Dose: 220 mg Documented by: Objective Vital Signs - 12hr 02/07/21 02/07/21 02/07/21 03:52 04:00 04:26 Temperature 98.5 F Pulse Rate 130 H Pulse Rate [ Anterior Bilateral Throughout] Pulse Rate [ From Monitor] Pulse Rate [ Posterior Bilateral Throughout] Respiratory 19 Rate Respiratory Rate [Anterior Bilateral Throughout] Respiratory Rate [Posterior Bilateral Throughout] Blood Pressure 153/75 O2 Sat by Pulse 91 92 Oximetry 02/07/21 02/07/21 02/07/21 05:00 06:00 07:00 Temperature Pulse Rate 127 H 119 H Pulse Rate [ Anterior Bilateral Throughout] Pulse Rate [ 110 H From Monitor] Pulse Rate [ Posterior Bilateral Throughout] Respiratory 21 19 18 Rate Respiratory Rate [Anterior Bilateral Throughout] Respiratory Rate [Posterior Bilateral Throughout] Blood Pressure 149/68 134/73 O2 Sat by Pulse 94 95 97 Oximetry 02/07/21 02/07/21 02/07/21 07:01 08:00 08:57 Temperature 98.5 F Pulse Rate 129 H 120 H Pulse Rate [ Anterior Bilateral Throughout] Pulse Rate [ From Monitor] Pulse Rate [ 124 H Posterior Bilateral Throughout] Respiratory 24 18 Rate Respiratory Rate [Anterior Bilateral Throughout] Respiratory 20 Rate [Posterior Bilateral Throughout] Blood Pressure 158/81 140/72 O2 Sat by Pulse 93 94 Oximetry 02/07/21 02/07/21 02/07/21 08:58 09:00 09:19 Temperature Pulse Rate 116 H Pulse Rate [ Anterior Bilateral Throughout] Pulse Rate [ From Monitor] Pulse Rate [ Posterior Bilateral Throughout] Respiratory Rate Respiratory Rate [Anterior Bilateral Throughout] Respiratory Rate [Posterior Bilateral Throughout] Blood Pressure 133/72 133/72 O2 Sat by Pulse 96 94 Oximetry 02/07/21 02/07/21 02/07/21 10:00 11:00 12:00 Temperature 99.2 F Pulse Rate 115 H 110 H 108 H Pulse Rate [ Anterior Bilateral Throughout] Pulse Rate [ 105 H From Monitor] Pulse Rate [ Posterior Bilateral Throughout] Respiratory 21 22 21 Rate Respiratory Rate [Anterior Bilateral Throughout] Respiratory Rate [Posterior Bilateral Throughout] Blood Pressure 135/76 116/60 135/73 O2 Sat by Pulse 94 78 L 95 Oximetry 02/07/21 02/07/21 02/07/21 13:00 14:00 14:01 Temperature Pulse Rate 111 H 106 H Pulse Rate [ Anterior Bilateral Throughout] Pulse Rate [ From Monitor] Pulse Rate [ Posterior Bilateral Throughout] Respiratory 21 20 Rate Respiratory Rate [Anterior Bilateral Throughout] Respiratory Rate [Posterior Bilateral Throughout] Blood Pressure 136/74 138/76 O2 Sat by Pulse 92 98 95 Oximetry 02/07/21 14:25 Temperature Pulse Rate Pulse Rate [ 118 H Anterior Bilateral Throughout] Pulse Rate [ From Monitor] Pulse Rate [ 115 H Posterior Bilateral Throughout] Respiratory Rate Respiratory 18 Rate [Anterior Bilateral Throughout] Respiratory 18 Rate [Posterior Bilateral Throughout] Blood Pressure O2 Sat by Pulse Oximetry Constitutional: no acute distress, alert Eyes: non-icteric ENT: oropharynx moist Neck: supple, other (large in circumference) Effort: normal Ascultation: Bilateral: clear Cardiovascular: other (tachy, RR; no mrg) Gastrointestinal: normoactive bowel sounds, soft, non-tender, non-distended Integumentary: normal Extremities: no cyanosis, no edema, pink and warm Neurologic: normal mental status, non-focal exam, pupils equal and round Psychiatric: mood appropriate, affect normal CBC and BMP: 02/06/21 04:43 02/06/21 04:43 ABG, PT/INR, D-dimer: ABG ABG pH 7.418 pH Units (7.350-7.450) 02/04/21 12:45 ABG pCO2 48.7 mm Hg 02/04/21 12:45 ABG pO2 65.6 mm Hg (80.0-90.0) L 02/04/21 12:45 ABG O2 Saturation 94.0 % (95.0-99.0) L 02/04/21 12:45 PT/INR, D-dimer PT 13.6 Sec. (12.2-14.9) 02/04/21 14:52 INR 1.06 (0.87-1.13) 02/04/21 14:52 D-Dimer 1884.49 ng/mlDDU (0-234) H 01/28/21 08:46 Abnormal lab findings: Abnormal Labs 01/17/21 01/17/21 01/17/21 09:25 16:41 16:41 WBC RBC 5.23 H Hgb MCV 76 L MCH 24 L RDW Lymph % (Auto) 9.4 L [place] % (Auto) Lymph # (Auto) 0.8 L Seg Neutrophils % 85.4 H Seg Neuts % (Manual) Lymphocytes % (Manual) Seg Neutrophils # Seg Neutrophils # Man D-Dimer ABG pH ABG pO2 ABG HCO3 ABG O2 Saturation ABG Base Excess ABG Hemoglobin Oxyhemoglobin Sodium 128 L Chloride 90.8 L Carbon Dioxide BUN Creatinine Glucose 372 H POC Glucose Calcium Ferritin AST 98 H Lactate Dehydrogenase C-Reactive Protein Total Protein Albumin 3.2 L Coronavirus (PCR) Positive A 01/17/21 01/17/21 01/17/21 17:46 17:46 17:46 WBC RBC Hgb MCV MCH RDW Lymph % (Auto) [place] % (Auto) Lymph # (Auto) Seg Neutrophils % Seg Neuts % (Manual) Lymphocytes % (Manual) Seg Neutrophils # Seg Neutrophils # Man D-Dimer 1058.54 H ABG pH ABG pO2 ABG HCO3 ABG O2 Saturation ABG Base Excess ABG Hemoglobin Oxyhemoglobin Sodium Chloride Carbon Dioxide BUN Creatinine Glucose 369 H POC Glucose Calcium Ferritin 668.4 H AST Lactate Dehydrogenase 519 H C-Reactive Protein 19.20 H Total Protein Albumin Coronavirus (PCR) 01/18/21 01/18/21 01/19/21 09:01 17:18 05:11 WBC 14.2 H RBC Hgb MCV 74 L MCH 23 L RDW Lymph % (Auto) [place] % (Auto) Lymph # (Auto) Seg Neutrophils % Seg Neuts % (Manual) 88.0 H Lymphocytes % (Manual) 10.0 L Seg Neutrophils # Seg Neutrophils # Man 12.5 H D-Dimer ABG pH 7.461 H ABG pO2 53.1 L ABG HCO3 ABG O2 Saturation 89.4 L ABG Base Excess ABG Hemoglobin Oxyhemoglobin 88.0 L Sodium 132 L Chloride 93.6 L Carbon Dioxide BUN 18 H Creatinine Glucose 367 H POC Glucose Calcium 7.8 L Ferritin AST Lactate Dehydrogenase C-Reactive Protein Total Protein Albumin Coronavirus (PCR) 01/19/21 01/19/21 01/19/21 05:11 11:06 14:43 WBC RBC Hgb MCV MCH RDW Lymph % (Auto) [place] % (Auto) Lymph # (Auto) Seg Neutrophils % Seg Neuts % (Manual) Lymphocytes % (Manual) Seg Neutrophils # Seg Neutrophils # Man D-Dimer ABG pH ABG pO2 ABG HCO3 ABG O2 Saturation ABG Base Excess ABG Hemoglobin Oxyhemoglobin Sodium Chloride Carbon Dioxide BUN 18 H Creatinine Glucose 304 H 379 H POC Glucose 382 H Calcium 8.3 L Ferritin AST 92 H 96 H Lactate Dehydrogenase C-Reactive Protein Total Protein Albumin 3.0 L 3.0 L Coronavirus (PCR) 01/19/21 01/19/21 01/20/21 16:18 22:18 07:31 WBC RBC Hgb MCV MCH RDW Lymph % (Auto) [place] % (Auto) Lymph # (Auto) Seg Neutrophils % Seg Neuts % (Manual) Lymphocytes % (Manual) Seg Neutrophils # Seg Neutrophils # Man D-Dimer ABG pH ABG pO2 ABG HCO3 ABG O2 Saturation ABG Base Excess ABG Hemoglobin Oxyhemoglobin Sodium Chloride Carbon Dioxide BUN Creatinine Glucose POC Glucose 374 H 341 H 344 H Calcium Ferritin AST Lactate Dehydrogenase C-Reactive Protein Total Protein Albumin Coronavirus (PCR) 01/20/21 01/20/21 01/20/21 07:33 12:14 13:54 WBC RBC Hgb MCV MCH RDW Lymph % (Auto) [place] % (Auto) Lymph # (Auto) Seg Neutrophils % Seg Neuts % (Manual) Lymphocytes % (Manual) Seg Neutrophils # Seg Neutrophils # Man D-Dimer ABG pH ABG pO2 ABG HCO3 ABG O2 Saturation ABG Base Excess ABG Hemoglobin Oxyhemoglobin Sodium Chloride Carbon Dioxide BUN 32 H 31 H Creatinine Glucose 343 H 396 H POC Glucose 365 H Calcium Ferritin AST 57 H 54 H Lactate Dehydrogenase C-Reactive Protein Total Protein 8.3 H Albumin 2.7 L 3.1 L Coronavirus (PCR) 01/20/21 01/20/21 01/21/21 18:28 21:25 04:45 WBC RBC Hgb MCV MCH RDW Lymph % (Auto) [place] % (Auto) Lymph # (Auto) Seg Neutrophils % Seg Neuts % (Manual) Lymphocytes % (Manual) Seg Neutrophils # Seg Neutrophils # Man D-Dimer ABG pH ABG pO2 ABG HCO3 ABG O2 Saturation ABG Base Excess ABG Hemoglobin Oxyhemoglobin Sodium Chloride Carbon Dioxide 31 H BUN 41 H Creatinine Glucose 377 H POC Glucose 403 H 340 H Calcium Ferritin AST Lactate Dehydrogenase C-Reactive Protein Total Protein 8.3 H Albumin 3.0 L Coronavirus (PCR) 01/21/21 01/21/21 01/21/21 04:45 04:45 04:45 WBC RBC Hgb MCV MCH RDW Lymph % (Auto) [place] % (Auto) Lymph # (Auto) Seg Neutrophils % Seg Neuts % (Manual) Lymphocytes % (Manual) Seg Neutrophils # Seg Neutrophils # Man D-Dimer > 69683 H ABG pH ABG pO2 ABG HCO3 ABG O2 Saturation ABG Base Excess ABG Hemoglobin Oxyhemoglobin Sodium Chloride Carbon Dioxide BUN Creatinine Glucose POC Glucose Calcium Ferritin 1688.0 H AST Lactate Dehydrogenase 649 H C-Reactive Protein 17.00 H Total Protein Albumin Coronavirus (PCR) 01/21/21 01/21/21 01/21/21 09:45 11:29 12:09 WBC RBC Hgb MCV MCH RDW Lymph % (Auto) [place] % (Auto) Lymph # (Auto) Seg Neutrophils % Seg Neuts % (Manual) Lymphocytes % (Manual) Seg Neutrophils # Seg Neutrophils # Man D-Dimer ABG pH ABG pO2 ABG HCO3 ABG O2 Saturation ABG Base Excess ABG Hemoglobin Oxyhemoglobin Sodium 151 H Chloride Carbon Dioxide BUN 40 H Creatinine Glucose 412 H POC Glucose 401 H 372 H Calcium Ferritin AST Lactate Dehydrogenase C-Reactive Protein Total Protein Albumin 3.4 L Coronavirus (PCR) 01/21/21 01/21/21 01/22/21 18:26 21:09 02:00 WBC RBC Hgb MCV MCH RDW Lymph % (Auto) [place] % (Auto) Lymph # (Auto) Seg Neutrophils % Seg Neuts % (Manual) Lymphocytes % (Manual) Seg Neutrophils # Seg Neutrophils # Man D-Dimer ABG pH ABG pO2 ABG HCO3 ABG O2 Saturation ABG Base Excess ABG Hemoglobin Oxyhemoglobin Sodium Chloride Carbon Dioxide BUN Creatinine Glucose POC Glucose 376 H 322 H 231 H Calcium Ferritin AST Lactate Dehydrogenase C-Reactive Protein Total Protein Albumin Coronavirus (PCR) 01/22/21 01/22/21 01/22/21 05:24 08:25 08:25 WBC RBC 5.44 H Hgb MCV 75 L MCH 23 L RDW 15.5 H Lymph % (Auto) [place] % (Auto) Lymph # (Auto) Seg Neutrophils % Seg Neuts % (Manual) Lymphocytes % (Manual) Seg Neutrophils # Seg Neutrophils # Man D-Dimer ABG pH ABG pO2 ABG HCO3 ABG O2 Saturation ABG Base Excess ABG Hemoglobin Oxyhemoglobin Sodium 155 H Chloride 112.4 H Carbon Dioxide BUN 33 H Creatinine Glucose 274 H POC Glucose 275 H Calcium Ferritin AST Lactate Dehydrogenase C-Reactive Protein Total Protein Albumin Coronavirus (PCR) 01/22/21 01/22/21 01/22/21 11:53 16:03 21:41 WBC RBC Hgb MCV MCH RDW Lymph % (Auto) [place] % (Auto) Lymph # (Auto) Seg Neutrophils % Seg Neuts % (Manual) Lymphocytes % (Manual) Seg Neutrophils # Seg Neutrophils # Man D-Dimer ABG pH ABG pO2 ABG HCO3 ABG O2 Saturation ABG Base Excess ABG Hemoglobin Oxyhemoglobin Sodium Chloride Carbon Dioxide BUN Creatinine Glucose POC Glucose 265 H 293 H 279 H Calcium Ferritin AST Lactate Dehydrogenase C-Reactive Protein Total Protein Albumin Coronavirus (PCR) 01/23/21 01/23/21 01/23/21 02:03 05:46 05:59 WBC RBC Hgb MCV MCH RDW Lymph % (Auto) [place] % (Auto) Lymph # (Auto) Seg Neutrophils % Seg Neuts % (Manual) Lymphocytes % (Manual) Seg Neutrophils # Seg Neutrophils # Man D-Dimer ABG pH ABG pO2 ABG HCO3 ABG O2 Saturation ABG Base Excess ABG Hemoglobin Oxyhemoglobin Sodium Chloride Carbon Dioxide BUN Creatinine Glucose POC Glucose 268 H 303 H Calcium Ferritin 1116.0 H AST Lactate Dehydrogenase C-Reactive Protein Total Protein Albumin Coronavirus (PCR) 01/23/21 01/23/21 01/23/21 05:59 07:42 09:11 WBC RBC Hgb MCV MCH RDW Lymph % (Auto) [place] % (Auto) Lymph # (Auto) Seg Neutrophils % Seg Neuts % (Manual) Lymphocytes % (Manual) Seg Neutrophils # Seg Neutrophils # Man D-Dimer ABG pH ABG pO2 ABG HCO3 ABG O2 Saturation ABG Base Excess ABG Hemoglobin Oxyhemoglobin Sodium Chloride Carbon Dioxide BUN Creatinine Glucose POC Glucose 291 H 285 H Calcium Ferritin AST Lactate Dehydrogenase 680 H C-Reactive Protein 5.80 H Total Protein Albumin Coronavirus (PCR) 01/23/21 01/23/21 01/23/21 14:06 17:05 17:59 WBC RBC Hgb MCV MCH RDW Lymph % (Auto) [place] % (Auto) Lymph # (Auto) Seg Neutrophils % Seg Neuts % (Manual) Lymphocytes % (Manual) Seg Neutrophils # Seg Neutrophils # Man D-Dimer ABG pH ABG pO2 ABG HCO3 ABG O2 Saturation ABG Base Excess ABG Hemoglobin Oxyhemoglobin Sodium Chloride Carbon Dioxide BUN Creatinine Glucose POC Glucose 228 H 300 H 278 H Calcium Ferritin AST Lactate Dehydrogenase C-Reactive Protein Total Protein Albumin Coronavirus (PCR) 01/23/21 01/24/21 01/24/21 21:43 02:14 05:15 WBC RBC Hgb MCV MCH RDW Lymph % (Auto) [place] % (Auto) Lymph # (Auto) Seg Neutrophils % Seg Neuts % (Manual) Lymphocytes % (Manual) Seg Neutrophils # Seg Neutrophils # Man D-Dimer ABG pH ABG pO2 ABG HCO3 ABG O2 Saturation ABG Base Excess ABG Hemoglobin Oxyhemoglobin Sodium Chloride Carbon Dioxide BUN Creatinine Glucose POC Glucose 223 H 427 H 392 H Calcium Ferritin AST Lactate Dehydrogenase C-Reactive Protein Total Protein Albumin Coronavirus (PCR) 01/24/21 01/24/21 01/24/21 07:03 07:03 09:10 WBC RBC 5.49 H Hgb MCV 75 L MCH 23 L RDW Lymph % (Auto) 7.0 L [place] % (Auto) Lymph # (Auto) 0.5 L Seg Neutrophils % 86.1 H Seg Neuts % (Manual) Lymphocytes % (Manual) Seg Neutrophils # Seg Neutrophils # Man D-Dimer ABG pH ABG pO2 ABG HCO3 ABG O2 Saturation ABG Base Excess ABG Hemoglobin Oxyhemoglobin Sodium 149 H Chloride 111.4 H Carbon Dioxide BUN 24 H Creatinine Glucose 339 H POC Glucose 284 H Calcium Ferritin AST Lactate Dehydrogenase C-Reactive Protein Total Protein Albumin Coronavirus (PCR) 01/24/21 01/24/21 01/24/21 13:47 18:30 21:58 WBC RBC Hgb MCV MCH RDW Lymph % (Auto) [place] % (Auto) Lymph # (Auto) Seg Neutrophils % Seg Neuts % (Manual) Lymphocytes % (Manual) Seg Neutrophils # Seg Neutrophils # Man D-Dimer ABG pH ABG pO2 ABG HCO3 ABG O2 Saturation ABG Base Excess ABG Hemoglobin Oxyhemoglobin Sodium Chloride Carbon Dioxide BUN Creatinine Glucose POC Glucose 317 H 180 H 262 H Calcium Ferritin AST Lactate Dehydrogenase C-Reactive Protein Total Protein Albumin Coronavirus (PCR) 01/25/21 01/25/21 01/25/21 01:22 05:35 08:36 WBC RBC Hgb MCV MCH RDW Lymph % (Auto) [place] % (Auto) Lymph # (Auto) Seg Neutrophils % Seg Neuts % (Manual) Lymphocytes % (Manual) Seg Neutrophils # Seg Neutrophils # Man D-Dimer ABG pH ABG pO2 ABG HCO3 ABG O2 Saturation ABG Base Excess ABG Hemoglobin Oxyhemoglobin Sodium Chloride Carbon Dioxide BUN Creatinine Glucose POC Glucose 280 H 243 H 216 H Calcium Ferritin AST Lactate Dehydrogenase C-Reactive Protein Total Protein Albumin Coronavirus (PCR) 01/25/21 01/25/21 01/25/21 15:14 15:14 15:14 WBC RBC Hgb MCV MCH RDW Lymph % (Auto) [place] % (Auto) Lymph # (Auto) Seg Neutrophils % Seg Neuts % (Manual) Lymphocytes % (Manual) Seg Neutrophils # Seg Neutrophils # Man D-Dimer 6312.54 H ABG pH ABG pO2 ABG HCO3 ABG O2 Saturation ABG Base Excess ABG Hemoglobin Oxyhemoglobin Sodium 146 H Chloride 108.1 H Carbon Dioxide BUN 19 H Creatinine Glucose 287 H POC Glucose Calcium 8.3 L Ferritin 869.5 H AST Lactate Dehydrogenase 685 H C-Reactive Protein Total Protein Albumin Coronavirus (PCR) 01/25/21 01/25/21 01/26/21 16:06 21:18 01:47 WBC RBC Hgb MCV MCH RDW Lymph % (Auto) [place] % (Auto) Lymph # (Auto) Seg Neutrophils % Seg Neuts % (Manual) Lymphocytes % (Manual) Seg Neutrophils # Seg Neutrophils # Man D-Dimer ABG pH ABG pO2 ABG HCO3 ABG O2 Saturation ABG Base Excess ABG Hemoglobin Oxyhemoglobin Sodium Chloride Carbon Dioxide BUN Creatinine Glucose POC Glucose 267 H 197 H 255 H Calcium Ferritin AST Lactate Dehydrogenase C-Reactive Protein Total Protein Albumin Coronavirus (PCR) 01/26/21 01/26/21 01/26/21 05:23 05:23 05:23 WBC RBC Hgb MCV MCH RDW Lymph % (Auto) [place] % (Auto) Lymph # (Auto) Seg Neutrophils % Seg Neuts % (Manual) Lymphocytes % (Manual) Seg Neutrophils # Seg Neutrophils # Man D-Dimer 5809.58 H ABG pH ABG pO2 ABG HCO3 ABG O2 Saturation ABG Base Excess ABG Hemoglobin Oxyhemoglobin Sodium 149 H Chloride 109.3 H Carbon Dioxide BUN 24 H Creatinine Glucose 362 H POC Glucose Calcium Ferritin 877.1 H AST Lactate Dehydrogenase 655 H C-Reactive Protein Total Protein Albumin Coronavirus (PCR) 01/26/21 01/26/21 01/26/21 05:23 06:06 09:28 WBC RBC 5.49 H Hgb MCV 77 L MCH 23 L RDW Lymph % (Auto) [place] % (Auto) Lymph # (Auto) 0.8 L Seg Neutrophils % 78.9 H Seg Neuts % (Manual) Lymphocytes % (Manual) Seg Neutrophils # Seg Neutrophils # Man D-Dimer ABG pH ABG pO2 ABG HCO3 ABG O2 Saturation ABG Base Excess ABG Hemoglobin Oxyhemoglobin Sodium Chloride Carbon Dioxide BUN Creatinine Glucose POC Glucose 387 H 308 H Calcium Ferritin AST Lactate Dehydrogenase C-Reactive Protein Total Protein Albumin Coronavirus (PCR) 01/26/21 01/26/21 01/27/21 15:56 21:28 02:51 WBC RBC Hgb MCV MCH RDW Lymph % (Auto) [place] % (Auto) Lymph # (Auto) Seg Neutrophils % Seg Neuts % (Manual) Lymphocytes % (Manual) Seg Neutrophils # Seg Neutrophils # Man D-Dimer ABG pH ABG pO2 ABG HCO3 ABG O2 Saturation ABG Base Excess ABG Hemoglobin Oxyhemoglobin Sodium Chloride Carbon Dioxide BUN Creatinine Glucose POC Glucose 172 H 316 H 267 H Calcium Ferritin AST Lactate Dehydrogenase C-Reactive Protein Total Protein Albumin Coronavirus (PCR) 01/27/21 01/27/21 01/27/21 04:22 04:22 04:22 WBC RBC Hgb MCV MCH RDW Lymph % (Auto) [place] % (Auto) Lymph # (Auto) Seg Neutrophils % Seg Neuts % (Manual) Lymphocytes % (Manual) Seg Neutrophils # Seg Neutrophils # Man D-Dimer 4046.06 H ABG pH ABG pO2 ABG HCO3 ABG O2 Saturation ABG Base Excess ABG Hemoglobin Oxyhemoglobin Sodium Chloride 107.7 H Carbon Dioxide BUN 30 H Creatinine Glucose 281 H POC Glucose Calcium Ferritin 812.2 H AST Lactate Dehydrogenase 570 H C-Reactive Protein Total Protein Albumin Coronavirus (PCR) 01/27/21 01/27/21 01/27/21 04:22 05:55 12:00 WBC RBC 5.15 H Hgb MCV 76 L MCH 23 L RDW 15.5 H Lymph % (Auto) 12.7 L [place] % (Auto) Lymph # (Auto) 0.9 L Seg Neutrophils % 81.3 H Seg Neuts % (Manual) Lymphocytes % (Manual) Seg Neutrophils # Seg Neutrophils # Man D-Dimer ABG pH ABG pO2 ABG HCO3 ABG O2 Saturation ABG Base Excess ABG Hemoglobin Oxyhemoglobin Sodium Chloride Carbon Dioxide BUN Creatinine Glucose POC Glucose 275 H 121 H Calcium Ferritin AST Lactate Dehydrogenase C-Reactive Protein Total Protein Albumin Coronavirus (PCR) 01/27/21 01/27/21 01/28/21 17:32 21:23 02:08 WBC RBC Hgb MCV MCH RDW Lymph % (Auto) [place] % (Auto) Lymph # (Auto) Seg Neutrophils % Seg Neuts % (Manual) Lymphocytes % (Manual) Seg Neutrophils # Seg Neutrophils # Man D-Dimer ABG pH ABG pO2 ABG HCO3 ABG O2 Saturation ABG Base Excess ABG Hemoglobin Oxyhemoglobin Sodium Chloride Carbon Dioxide BUN Creatinine Glucose POC Glucose 195 H 179 H 210 H Calcium Ferritin AST Lactate Dehydrogenase C-Reactive Protein Total Protein Albumin Coronavirus (PCR) 01/28/21 01/28/21 01/28/21 05:09 08:44 08:46 WBC RBC Hgb MCV MCH RDW Lymph % (Auto) [place] % (Auto) Lymph # (Auto) Seg Neutrophils % Seg Neuts % (Manual) Lymphocytes % (Manual) Seg Neutrophils # Seg Neutrophils # Man D-Dimer 1884.49 H ABG pH ABG pO2 ABG HCO3 ABG O2 Saturation ABG Base Excess ABG Hemoglobin Oxyhemoglobin Sodium Chloride Carbon Dioxide BUN Creatinine Glucose POC Glucose 202 H 191 H Calcium Ferritin AST Lactate Dehydrogenase C-Reactive Protein Total Protein Albumin Coronavirus (PCR) 01/28/21 01/28/21 01/28/21 08:46 08:46 12:18 WBC RBC Hgb MCV MCH RDW Lymph % (Auto) [place] % (Auto) Lymph # (Auto) Seg Neutrophils % Seg Neuts % (Manual) Lymphocytes % (Manual) Seg Neutrophils # Seg Neutrophils # Man D-Dimer ABG pH ABG pO2 ABG HCO3 ABG O2 Saturation ABG Base Excess ABG Hemoglobin Oxyhemoglobin Sodium Chloride Carbon Dioxide BUN Creatinine Glucose POC Glucose 221 H Calcium Ferritin 797.7 H AST Lactate Dehydrogenase 556 H C-Reactive Protein Total Protein Albumin Coronavirus (PCR) 01/28/21 01/28/21 01/29/21 18:21 21:45 01:48 WBC RBC Hgb MCV MCH RDW Lymph % (Auto) [place] % (Auto) Lymph # (Auto) Seg Neutrophils % Seg Neuts % (Manual) Lymphocytes % (Manual) Seg Neutrophils # Seg Neutrophils # Man D-Dimer ABG pH ABG pO2 ABG HCO3 ABG O2 Saturation ABG Base Excess ABG Hemoglobin Oxyhemoglobin Sodium Chloride Carbon Dioxide BUN Creatinine Glucose POC Glucose 214 H 148 H 248 H Calcium Ferritin AST Lactate Dehydrogenase C-Reactive Protein Total Protein Albumin Coronavirus (PCR) 01/29/21 01/29/21 01/29/21 05:17 10:17 11:39 WBC RBC Hgb MCV MCH RDW Lymph % (Auto) [place] % (Auto) Lymph # (Auto) Seg Neutrophils % Seg Neuts % (Manual) Lymphocytes % (Manual) Seg Neutrophils # Seg Neutrophils # Man D-Dimer ABG pH ABG pO2 ABG HCO3 ABG O2 Saturation ABG Base Excess ABG Hemoglobin Oxyhemoglobin Sodium Chloride Carbon Dioxide BUN Creatinine Glucose POC Glucose 256 H 193 H 177 H Calcium Ferritin AST Lactate Dehydrogenase C-Reactive Protein Total Protein Albumin Coronavirus (PCR) 01/29/21 01/29/21 01/30/21 18:06 20:24 06:07 WBC RBC Hgb MCV MCH RDW Lymph % (Auto) [place] % (Auto) Lymph # (Auto) Seg Neutrophils % Seg Neuts % (Manual) Lymphocytes % (Manual) Seg Neutrophils # Seg Neutrophils # Man D-Dimer ABG pH ABG pO2 ABG HCO3 ABG O2 Saturation ABG Base Excess ABG Hemoglobin Oxyhemoglobin Sodium Chloride Carbon Dioxide BUN Creatinine Glucose POC Glucose 107 H 114 H 114 H Calcium Ferritin AST Lactate Dehydrogenase C-Reactive Protein Total Protein Albumin Coronavirus (PCR) 01/30/21 01/30/21 01/30/21 12:08 16:11 21:19 WBC RBC Hgb MCV MCH RDW Lymph % (Auto) [place] % (Auto) Lymph # (Auto) Seg Neutrophils % Seg Neuts % (Manual) Lymphocytes % (Manual) Seg Neutrophils # Seg Neutrophils # Man D-Dimer ABG pH ABG pO2 ABG HCO3 ABG O2 Saturation ABG Base Excess ABG Hemoglobin Oxyhemoglobin Sodium Chloride Carbon Dioxide BUN Creatinine Glucose POC Glucose 178 H 142 H 244 H Calcium Ferritin AST Lactate Dehydrogenase C-Reactive Protein Total Protein Albumin Coronavirus (PCR) 01/31/21 01/31/21 01/31/21 05:30 06:42 07:50 WBC RBC Hgb MCV MCH RDW Lymph % (Auto) [place] % (Auto) Lymph # (Auto) Seg Neutrophils % Seg Neuts % (Manual) Lymphocytes % (Manual) Seg Neutrophils # Seg Neutrophils # Man D-Dimer ABG pH ABG pO2 ABG HCO3 ABG O2 Saturation ABG Base Excess ABG Hemoglobin Oxyhemoglobin Sodium Chloride Carbon Dioxide BUN 20 H Creatinine Glucose 160 H POC Glucose 164 H 152 H Calcium 8.0 L Ferritin AST Lactate Dehydrogenase C-Reactive Protein Total Protein Albumin Coronavirus (PCR) 01/31/21 01/31/21 01/31/21 11:40 16:37 21:01 WBC RBC Hgb MCV MCH RDW Lymph % (Auto) [place] % (Auto) Lymph # (Auto) Seg Neutrophils % Seg Neuts % (Manual) Lymphocytes % (Manual) Seg Neutrophils # Seg Neutrophils # Man D-Dimer ABG pH ABG pO2 ABG HCO3 ABG O2 Saturation ABG Base Excess ABG Hemoglobin Oxyhemoglobin Sodium Chloride Carbon Dioxide BUN Creatinine Glucose POC Glucose 129 H 141 H 125 H Calcium Ferritin AST Lactate Dehydrogenase C-Reactive Protein Total Protein Albumin Coronavirus (PCR) 02/01/21 02/01/21 02/01/21 06:26 11:15 16:11 WBC RBC Hgb MCV MCH RDW Lymph % (Auto) [place] % (Auto) Lymph # (Auto) Seg Neutrophils % Seg Neuts % (Manual) Lymphocytes % (Manual) Seg Neutrophils # Seg Neutrophils # Man D-Dimer ABG pH ABG pO2 ABG HCO3 ABG O2 Saturation ABG Base Excess ABG Hemoglobin Oxyhemoglobin Sodium Chloride Carbon Dioxide BUN Creatinine Glucose POC Glucose 136 H 260 H 240 H Calcium Ferritin AST Lactate Dehydrogenase C-Reactive Protein Total Protein Albumin Coronavirus (PCR) 02/01/21 02/02/21 02/02/21 22:32 07:15 07:56 WBC 3.1 L RBC Hgb MCV 75 L MCH 23 L RDW Lymph % (Auto) 44.9 H [place] % (Auto) 9.2 H Lymph # (Auto) Seg Neutrophils % Seg Neuts % (Manual) Lymphocytes % (Manual) Seg Neutrophils # 1.3 L Seg Neutrophils # Man D-Dimer ABG pH ABG pO2 ABG HCO3 ABG O2 Saturation ABG Base Excess ABG Hemoglobin Oxyhemoglobin Sodium Chloride Carbon Dioxide BUN Creatinine Glucose POC Glucose 298 H 164 H Calcium Ferritin AST Lactate Dehydrogenase C-Reactive Protein Total Protein Albumin Coronavirus (PCR) 02/02/21 02/02/21 02/02/21 07:56 11:35 16:07 WBC RBC Hgb MCV MCH RDW Lymph % (Auto) [place] % (Auto) Lymph # (Auto) Seg Neutrophils % Seg Neuts % (Manual) Lymphocytes % (Manual) Seg Neutrophils # Seg Neutrophils # Man D-Dimer ABG pH ABG pO2 ABG HCO3 ABG O2 Saturation ABG Base Excess ABG Hemoglobin Oxyhemoglobin Sodium Chloride Carbon Dioxide 31 H BUN Creatinine 0.4 L Glucose 159 H POC Glucose 297 H 252 H Calcium 8.2 L Ferritin AST Lactate Dehydrogenase C-Reactive Protein Total Protein Albumin Coronavirus (PCR) 02/02/21 02/03/21 02/03/21 22:33 17:04 22:17 WBC RBC Hgb MCV MCH RDW Lymph % (Auto) [place] % (Auto) Lymph # (Auto) Seg Neutrophils % Seg Neuts % (Manual) Lymphocytes % (Manual) Seg Neutrophils # Seg Neutrophils # Man D-Dimer ABG pH ABG pO2 ABG HCO3 ABG O2 Saturation ABG Base Excess ABG Hemoglobin Oxyhemoglobin Sodium Chloride Carbon Dioxide BUN Creatinine Glucose POC Glucose 257 H 247 H 278 H Calcium Ferritin AST Lactate Dehydrogenase C-Reactive Protein Total Protein Albumin Coronavirus (PCR) 02/04/21 02/04/21 02/04/21 05:41 07:55 11:56 WBC RBC Hgb MCV MCH RDW Lymph % (Auto) [place] % (Auto) Lymph # (Auto) Seg Neutrophils % Seg Neuts % (Manual) Lymphocytes % (Manual) Seg Neutrophils # Seg Neutrophils # Man D-Dimer ABG pH ABG pO2 ABG HCO3 ABG O2 Saturation ABG Base Excess ABG Hemoglobin Oxyhemoglobin Sodium Chloride Carbon Dioxide 31 H BUN 19 H Creatinine 0.5 L Glucose 184 H POC Glucose 182 H 227 H Calcium Ferritin AST Lactate Dehydrogenase C-Reactive Protein Total Protein Albumin Coronavirus (PCR) 02/04/21 02/04/21 02/04/21 12:45 14:52 16:45 WBC 4.0 L RBC Hgb MCV 77 L MCH 24 L RDW 15.5 H Lymph % (Auto) [place] % (Auto) Lymph # (Auto) Seg Neutrophils % Seg Neuts % (Manual) Lymphocytes % (Manual) Seg Neutrophils # Seg Neutrophils # Man D-Dimer ABG pH ABG pO2 65.6 L ABG HCO3 30.8 H ABG O2 Saturation 94.0 L ABG Base Excess 5.5 H ABG Hemoglobin 10.3 L Oxyhemoglobin 92.3 L Sodium Chloride Carbon Dioxide BUN Creatinine Glucose POC Glucose 194 H Calcium Ferritin AST Lactate Dehydrogenase C-Reactive Protein Total Protein Albumin Coronavirus (PCR) 02/04/21 02/05/21 02/05/21 22:00 06:55 07:49 WBC RBC Hgb 10.0 L MCV MCH RDW Lymph % (Auto) [place] % (Auto) Lymph # (Auto) Seg Neutrophils % Seg Neuts % (Manual) Lymphocytes % (Manual) Seg Neutrophils # Seg Neutrophils # Man D-Dimer ABG pH ABG pO2 ABG HCO3 ABG O2 Saturation ABG Base Excess ABG Hemoglobin Oxyhemoglobin Sodium Chloride Carbon Dioxide BUN Creatinine Glucose POC Glucose 281 H 204 H Calcium Ferritin AST Lactate Dehydrogenase C-Reactive Protein Total Protein Albumin Coronavirus (PCR) 02/05/21 02/05/21 02/05/21 11:23 16:13 16:22 WBC RBC Hgb 10.0 L MCV MCH RDW Lymph % (Auto) [place] % (Auto) Lymph # (Auto) Seg Neutrophils % Seg Neuts % (Manual) Lymphocytes % (Manual) Seg Neutrophils # Seg Neutrophils # Man D-Dimer ABG pH ABG pO2 ABG HCO3 ABG O2 Saturation ABG Base Excess ABG Hemoglobin Oxyhemoglobin Sodium Chloride Carbon Dioxide BUN Creatinine Glucose POC Glucose 264 H 202 H Calcium Ferritin AST Lactate Dehydrogenase C-Reactive Protein Total Protein Albumin Coronavirus (PCR) 02/05/21 02/06/21 02/06/21 21:14 04:43 04:43 WBC 4.0 L RBC Hgb 10.0 L MCV 76 L MCH 23 L RDW 15.7 H Lymph % (Auto) [place] % (Auto) Lymph # (Auto) Seg Neutrophils % Seg Neuts % (Manual) Lymphocytes % (Manual) Seg Neutrophils # Seg Neutrophils # Man D-Dimer ABG pH ABG pO2 ABG HCO3 ABG O2 Saturation ABG Base Excess ABG Hemoglobin Oxyhemoglobin Sodium Chloride Carbon Dioxide 32 H BUN Creatinine 0.4 L Glucose 163 H POC Glucose 180 H Calcium 8.3 L Ferritin AST Lactate Dehydrogenase C-Reactive Protein Total Protein Albumin Coronavirus (PCR) 02/06/21 02/06/21 02/06/21 08:01 11:44 16:11 WBC RBC Hgb MCV MCH RDW Lymph % (Auto) [place] % (Auto) Lymph # (Auto) Seg Neutrophils % Seg Neuts % (Manual) Lymphocytes % (Manual) Seg Neutrophils # Seg Neutrophils # Man D-Dimer ABG pH ABG pO2 ABG HCO3 ABG O2 Saturation ABG Base Excess ABG Hemoglobin Oxyhemoglobin Sodium Chloride Carbon Dioxide BUN Creatinine Glucose POC Glucose 155 H 215 H 247 H Calcium Ferritin AST Lactate Dehydrogenase C-Reactive Protein Total Protein Albumin Coronavirus (PCR) 02/06/21 02/07/21 02/07/21 23:40 08:01 11:54 WBC RBC Hgb MCV MCH RDW Lymph % (Auto) [place] % (Auto) Lymph # (Auto) Seg Neutrophils % Seg Neuts % (Manual) Lymphocytes % (Manual) Seg Neutrophils # Seg Neutrophils # Man D-Dimer ABG pH ABG pO2 ABG HCO3 ABG O2 Saturation ABG Base Excess ABG Hemoglobin Oxyhemoglobin Sodium Chloride Carbon Dioxide BUN Creatinine Glucose POC Glucose 267 H 233 H 227 H Calcium Ferritin AST Lactate Dehydrogenase C-Reactive Protein Total Protein Albumin Coronavirus (PCR) Chest x-ray: report reviewed, image reviewed
--- NOTE | 2021-02-07 19:27 | Progress Note ---
Assessment and Plan Assessment and plan: This is a 55-year-old female with schizophrenia who presented to [facility] on 01/18 for shortness of breath, cough, subjective fever and not feeling well for the last couple days with known COVID-19 exposure. While in the emergency room patient was switched from non rebreather mask to high flow nasal cannula and his CTA chest showed no acute pulmonary embolism. Patient was admitted to the hospital service as a COVID-19 PUI with consults to CCM, infectious disease, psych. Severe COVID-19 pneumonia Acute hypoxic respiratory failure Obesity Schizophrenia Leukocytosis Hyperglycemia Schizophrenia Hypernatremia Hypercholermia Hemoptysis -CCM, infectious disease, psychiatry consulted, appreciate recommendations -COVID-19 PCR positive -Droplet/contact isolation -Remdesivir, azithromycin, ceftriaxone, dexamethasone (twice daily dosing) -s/p Actemra -Wean supplemental oxygen as tolerated, pulmonary hygiene -Prone as tolerated -Trend COVID-19 inflammatory markers for risk stratification, CBC, CMP -SSI, Lantus -01/18 bilateral lower extremity Doppler ultrasound negative for DVT -01/17 CTA shows no evidence of pulmonary embolism, extensive bilateral pneumonia, hepatomegaly with hepatic steatosis 01/18/2021 -Acute hypoxic respiratory failure requiring high flow oxygen 40 L. Nebulizer treatment -Patient is admitted for suspected Covid pneumonia. Patient is on dexamethasone, COVID-19 test is pending. Patient is on empiric antibiotics. -ID consulted, will consult pulmonary. -Patient has hyponatremia yesterday and I will repeat and if it is low I will manage accordingly -Patient has elevated D-dimer and CTA chest and bilateral Doppler ultrasound of the lower extremities pending 01/19/2021 -Acute hypoxic respiratory failure currently on BiPAP, nebulizer treatment. I will put in orders to transfer to [facility] yesterday but there was no bed. -Patient is positive for Covid and she is on Decadron and remdesivir. Actemra was ordered on 01/19/2021 -ID evaluated the patient and recommend to continue Decadron and remdesivir, also to continue ceftriaxone and azithromycin for 5 days because of the elevated procalcitonin level. Pulmonary was consulted and recommend to continue current management and add Lasix -CTA chest was done and significant for bilateral pulmonary opacities, negative for PE, Doppler ultrasound of the lower extremities was negative for DVT. -Prognosis is guarded. -Patient is currently on BiPAP and she was agitated and trying to take off the BiPAP, I put the patient on restraints. Discussed with maintenance worker house trailer to transfer the patient to IMCU and if there is no bed she need to be transferred to CCU. 01/20: Patient received 5 mg of Haldol for severe agitation and refusal to keep high flow nasal cannula in place. [facility] ordered Lasix again. Psych was consulted today. Patient was on BiPAP therapy all night and RT attempted to give her a break patient is on high flow nasal cannula however she did not keep this in place and was paced back on BiPAP after receiving Haldol. She was started on Lantus today. 01/21: Patient is on BiPAP and on time examination was on 20/10 100% FiO2. Patient was started on Lantus. Psych consult completed and started on Haldol p.o. twice daily and Mirtazepin PO daily. No acute events reported overnight. Patient's D-dimer is greater than 10,000 started on prophylactic Lovenox as recent CTA chest and bilateral lower extremity Doppler ultrasound were negative. 01/22: Patient has been taken off BiPAP therapy and placed on high flow nasal cannula. Patient has been downgraded to IMCU. Patient's hyponatremia and hypochloremia have worsened. 01/23: Patient was on BiPAP overnight with FiO2 85% and IPAP 20/EPAP 10. Patient currently with high flow nasal cannula 40 L O2 with an FiO2 of 100%. Continue remdesivir and dexamethasone. Patient is s/p Actemra on 01/20. Continue empiric antibiotics per ID recommendations. Continue anticoagulation per protocol. 01/24: Patient is tachycardic and hypertensive and [facility] has opted to add amlodipine. Patient remains on 40 L 100% high flow nasal cannula. Continue remdesivir and dexamethasone. Patient is s/p Actemra on 01/20. Continue empiric antibiotics per ID recommendations. Continue anticoagulation per protocol. 01/25: Patient currently with high flow nasal cannula 40 L/min with FiO2 100%. Continue dexamethasone. Patient has completed remdesivir and s/p Actemra on 01/20. Continue full dose anticoagulation given high elevated D-dimer. Continue to trend inflammatory markers. Prognosis remains guarded. 01/26: Patient currently with high flow nasal cannula 35 L/min and FiO2 90%. Continue dexamethasone. Patient has completed remdesivir and s/p Actemra on 01/20. Continue full dose anticoagulation given high elevated D-dimer. Continue to trend inflammatory markers. Prognosis remains guarded. 01/27: Patient currently with high flow nasal cannula/Vapotherm 35 L/min O2 with FiO2 90%. Patient has completed remdesivir and s/p Actemra on 01/20. Continue full dose anticoagulation given high elevated D-dimer. Continue to trend inflammatory markers. Prognosis remains guarded. 01/28; Patient currently with high flow nasal cannula/Vapotherm 35 L/min O2 with FiO2 90%. Patient has completed remdesivir and s/p Actemra on 01/20. Continue full dose anticoagulation given high elevated D-dimer. Continue to trend inflammatory markers. Prognosis remains guarded. 01/29; patient is currently on 35 L of high flow oxygen. Prognosis guarded. Patient can be transferred to regular floor. 01/30/2021; patient is currently on 35 L of high flow oxygen, FiO2 of 65%. Patient has flat affect and did not talk to me. Patient refused most of her p.o. medications. Patient finished remdesivir, steroid. 01/31/2021; patient is on 35 L of high flow oxygen, FiO2 65%. Patient was calm and cooperative and communicative today. pulmonary is following. Patient finished remdesivir and steroid. 02/01/2021; patient was on 40 L of high flow oxygen.. I have called and discussed with her mother yesterday. Her mother told me patient was last followed at [facility] and I called facility and they told me medication she was on and I put these medications. Patient refused to eat so I put the patient on NG tube feeding for medications. Prognosis is guarded. 02/02/2021; patient is on 4 L of high flow oxygen with FiO2 of 60%. Her outpatient psych medications were reconciled. Patient was taking medications and as needed NG tube. Pulmonary is following the patient. 02/03/21: Patient noted with mild epistaxis this morning we will order some Afrin to help. Continue current management patient is on 35 L high flow. No worsening distress but still with intermittent confusion sometimes takes off the oxygen. Will repeat a trial of Lasix and monitor renal function with a.m. labs. Plan discussed with nurse at bedside. I also encouraged proning again. 02/04: Unfortunately still with hypoxia desaturating required increased to 50 L and 70% will gradually taper down. Patient due to her underlying psych history of schizophrenia is noncompliant. Daughter is working on getting guardianship over the patient. This will likely be a slow process nevertheless we will still obtain a CT of the head to ensure no other pathology. We will get an ABG and a chest x-ray today. 02/05: Patient overnight had an episode where she coughed up blood. H&H has remained stable. She has been since discontinued from full dose anticoagulants to DVT prophylactic dose. Chest x-ray shows mild worsening of congestion. Will discuss with pulmonary if patient will benefit from BiPAP during hours of sleep. Still awaiting information from family on prior psych medications that the patient was on psych review with psychiatry team as her mental status remains a deterrent and an impediment to oxygen management. We will give a trial dose of Lasix x 3 days. Will transfer to [facility] for closer monitoring 02/06: Continue supportive care, 2 more days of lasix, monitor BMP closely wean oxygen as tolerated, pulmonary input noted 02/07: Continues on High flow. Refusing medications, still with severe hypoxia, Discussed with Psych to re-evaluate the patient. The high probability of a clinically significant, sudden or life threatening deterioration of the [pulmonary] system(s) required my full and direct attention, intervention and personal management. The aggregate critical care time was [35] minutes. This time is in addition to time spent performing reported procedures but includes the following: [x] Data Review and interpretation [x] Patient assessment and monitoring of vital signs [x] Documentation [x] Medication orders and management History Interval history: Patient seen and examined confused, remains Hypoxia, still refusing procedures and some meds Hospitalist Physical - Physical exam Narrative exam: ON HIGH FLOW The patient appeared well nourished and normally developed. responsive and intractive but still with some confused Vital signs as documented. Head exam is unremarkable. No scleral icterus . Neck is without jugular venous distension, thyromegaly, or carotid bruits. Lungs decreased air entry on both lungs Cardiac exam reveals regular rate and Rhythm. Abdominal exam reveals normal bowel sounds, nontender, no organomegaly. Extremities are nonedematous and both femoral and pedal pulses are normal. CARE COORDINATION MANAGER: Patient was on restraints. Patient is pleasant and communicative today, but still confused. - Constitutional Vitals: Temp Pulse Resp BP Pulse Ox 98.8 F 122 H 22 121/72 89 02/07/21 16:00 02/07/21 18:00 02/07/21 18:00 02/07/21 18:00 02/07/21 18:00 General appearance: Present: no acute distress, well-nourished HEART Score - HEART Score Troponin: Troponin T < 0.010 ng/mL (0.00-0.029) 01/17/21 16:41 Results - Labs CBC & Chem 7: 02/08/21 04:46 02/08/21 04:46 Labs: Laboratory Last Values WBC 4.0 K/mm3 (4.5-11.0) L 02/06/21 04:43 RBC 4.31 M/mm3 (3.65-5.03) 02/06/21 04:43 Hgb 10.0 gm/dl (10.1-14.3) L 02/06/21 04:43 Hct 32.6 % (30.3-42.9) 02/06/21 04:43 MCV 76 fl (79-97) L 02/06/21 04:43 MCH 23 pg (28-32) L 02/06/21 04:43 MCHC 31 % (30-34) 02/06/21 04:43 RDW 15.7 % (13.2-15.2) H 02/06/21 04:43 Plt Count 142 K/mm3 (140-440) 02/06/21 04:43 Lymph % (Auto) 44.9 % (13.4-35.0) H 02/02/21 07:56 [place] % (Auto) 9.2 % (0.0-7.3) H 02/02/21 07:56 Eos % (Auto) 3.6 % (0.0-4.3) 02/02/21 07:56 Baso % (Auto) 0.3 % (0.0-1.8) 02/02/21 07:56 Lymph # (Auto) 1.4 K/mm3 (1.2-5.4) 02/02/21 07:56 [place] # (Auto) 0.3 K/mm3 (0.0-0.8) 02/02/21 07:56 Eos # (Auto) 0.1 K/mm3 (0.0-0.4) 02/02/21 07:56 Baso # (Auto) 0.0 K/mm3 (0.0-0.1) 02/02/21 07:56 Add Manual Diff Complete 01/19/21 05:11 Total Counted 100 01/19/21 05:11 Seg Neutrophils % 42.0 % (40.0-70.0) 02/02/21 07:56 Seg Neuts % (Manual) 88.0 % (40.0-70.0) H 01/19/21 05:11 Lymphocytes % (Manual) 10.0 % (13.4-35.0) L 01/19/21 05:11 Monocytes % (Manual) 2.0 % (0.0-7.3) 01/19/21 05:11 Nucleated RBC % Not Reportable 01/19/21 05:11 Seg Neutrophils # 1.3 K/mm3 (1.8-7.7) L 02/02/21 07:56 Seg Neutrophils # Man 12.5 K/mm3 (1.8-7.7) H 01/19/21 05:11 Band Neutrophils # 0.0 K/mm3 01/19/21 05:11 Lymphocytes # (Manual) 1.4 K/mm3 (1.2-5.4) 01/19/21 05:11 Abs React Lymphs (Man) 0.0 K/mm3 01/19/21 05:11 Monocytes # (Manual) 0.3 K/mm3 (0.0-0.8) 01/19/21 05:11 Eosinophils # (Manual) 0.0 K/mm3 (0.0-0.4) 01/19/21 05:11 Basophils # (Manual) 0.0 K/mm3 (0.0-0.1) 01/19/21 05:11 Metamyelocytes # 0.0 K/mm3 01/19/21 05:11 Myelocytes # 0.0 K/mm3 01/19/21 05:11 Promyelocytes # 0.0 K/mm3 01/19/21 05:11 Blast Cells # 0.0 K/mm3 01/19/21 05:11 WBC Morphology Not Reportable 01/19/21 05:11 Hypersegmented Neuts Not Reportable 01/19/21 05:11 Hyposegmented Neuts Not Reportable 01/19/21 05:11 Hypogranular Neuts Not Reportable 01/19/21 05:11 Smudge Cells Not Reportable 01/19/21 05:11 Toxic Granulation Not Reportable 01/19/21 05:11 Toxic Vacuolation Not Reportable 01/19/21 05:11 Dohle Bodies Not Reportable 01/19/21 05:11 Pelger-Huet Anomaly Not Reportable 01/19/21 05:11 Inder Rods Not Reportable 01/19/21 05:11 Platelet Estimate Consistent w auto 01/19/21 05:11 Clumped Platelets Not Reportable 01/19/21 05:11 Plt Clumps, EDTA Not Reportable 01/19/21 05:11 Large Platelets Not Reportable 01/19/21 05:11 Giant Platelets Not Reportable 01/19/21 05:11 Platelet Satelliting Not Reportable 01/19/21 05:11 Plt Morphology Comment Not Reportable 01/19/21 05:11 RBC Morphology Not Reportable 01/19/21 05:11 Dimorphic RBCs Not Reportable 01/19/21 05:11 Polychromasia Not Reportable 01/19/21 05:11 Hypochromasia 1+ 01/19/21 05:11 Poikilocytosis Not Reportable 01/19/21 05:11 Anisocytosis Not Reportable 01/19/21 05:11 Microcytosis Not Reportable 01/19/21 05:11 Macrocytosis Not Reportable 01/19/21 05:11 Spherocytes Not Reportable 01/19/21 05:11 Pappenheimer Bodies Not Reportable 01/19/21 05:11 Sickle Cells Not Reportable 01/19/21 05:11 Target Cells Not Reportable 01/19/21 05:11 Tear Drop Cells Not Reportable 01/19/21 05:11 Ovalocytes Not Reportable 01/19/21 05:11 Helmet Cells Not Reportable 01/19/21 05:11 [place] Bodies Not Reportable 01/19/21 05:11 [place] Rings Not Reportable 01/19/21 05:11 [place] Cells Not Reportable 01/19/21 05:11 Bite Cells Not Reportable 01/19/21 05:11 Crenated Cell Not Reportable 01/19/21 05:11 Elliptocytes Not Reportable 01/19/21 05:11 Acanthocytes (Spur) Not Reportable 01/19/21 05:11 Rouleaux Not Reportable 01/19/21 05:11 Hemoglobin C Crystals Not Reportable 01/19/21 05:11 Schistocytes Not Reportable 01/19/21 05:11 Malaria parasites Not Reportable 01/19/21 05:11 [place]ai Bodies Not Reportable 01/19/21 05:11 Hem Pathologist Commnt No 01/19/21 05:11 PT 13.6 Sec. (12.2-14.9) 02/04/21 14:52 INR 1.06 (0.87-1.13) 02/04/21 14:52 APTT 30.7 Sec. (24.2-36.6) 02/04/21 14:52 D-Dimer 1884.49 ng/mlDDU (0-234) H 01/28/21 08:46 ABG pH 7.418 pH Units (7.350-7.450) 02/04/21 12:45 ABG pCO2 48.7 mm Hg 02/04/21 12:45 ABG pO2 65.6 mm Hg (80.0-90.0) L 02/04/21 12:45 ABG HCO3 30.8 mmol/L (20.0-26.0) H 02/04/21 12:45 ABG O2 Saturation 94.0 % (95.0-99.0) L 02/04/21 12:45 ABG O2 Content 13.4 (0.0-44) 02/04/21 12:45 ABG Base Excess 5.5 mmol/L (-2.0-3.0) H 02/04/21 12:45 ABG Hemoglobin 10.3 gm/dl (12.0-16.0) L 02/04/21 12:45 ABG Carboxyhemoglobin 1.4 % (0.0-5.0) 02/04/21 12:45 ABG Methemoglobin 0.4 % (0.0-1.5) 02/04/21 12:45 Oxyhemoglobin 92.3 % (95.0-99.0) L 02/04/21 12:45 FiO2 40 % 02/04/21 12:45 Sodium 139 mmol/L (137-145) 02/06/21 04:43 Potassium 3.9 mmol/L (3.6-5.0) 02/06/21 04:43 Chloride 99.9 mmol/L (98-107) 02/06/21 04:43 Carbon Dioxide 32 mmol/L (22-30) H 02/06/21 04:43 Anion Gap 11 mmol/L 02/06/21 04:43 BUN 16 mg/dL (7-17) 02/06/21 04:43 Creatinine 0.4 mg/dL (0.6-1.2) L 02/06/21 04:43 Estimated GFR > 60 ml/min 02/06/21 04:43 BUN/Creatinine Ratio 40 % 02/06/21 04:43 Glucose 163 mg/dL (65-100) H 02/06/21 04:43 POC Glucose 227 mg/dL (70-105) H 02/07/21 11:54 Lactic Acid 1.70 mmol/L (0.7-2.0) 01/17/21 16:41 Calcium 8.3 mg/dL (8.4-10.2) L 02/06/21 04:43 Ferritin 797.7 ng/mL (10.0-200.0) H 01/28/21 08:46 Total Bilirubin 0.30 mg/dL (0.1-1.2) 01/21/21 11:29 AST 34 units/L (5-40) 01/21/21 11:29 ALT 38 units/L (7-56) 01/21/21 11:29 Alkaline Phosphatase 117 units/L (35-129) 01/21/21 11:29 Ammonia 43.0 umol/L (25-60) 02/04/21 14:52 Lactate Dehydrogenase 556 units/L (91-180) H 01/28/21 08:46 Troponin T < 0.010 ng/mL (0.00-0.029) 01/17/21 16:41 C-Reactive Protein 0.20 mg/dL (0.00-1.30) 01/28/21 08:46 NT-Pro-B Natriuret Pep 40.88 pg/mL (0-900) 01/17/21 16:41 Total Protein 7.3 g/dL (6.3-8.2) 01/21/21 11:29 Albumin 3.4 g/dL (3.9-5) L 01/21/21 11:29 Albumin/Globulin Ratio 0.9 % 01/21/21 11:29 Procalcitonin 0.39 ng/mL (<0.15) 01/17/21 17:46 Coronavirus (PCR) Positive (Negative) A 01/17/21 09:25 Estrada/IV: Voiding Method External Female Catheter Active Medications - Current Medications Current Medications: Generic Name Dose Route Start Last Admin Trade Name Freq PRN Reason Stop Dose Admin Acetaminophen 650 mg 01/18/21 00:36 01/22/21 23:46 Acetaminophen 325 Mg Tab PO 650 mg Q4H PRN Administration Pain MILD(1-3)/Fever >100.5/PAN Albuterol/Ipratropium 1 ampul 02/01/21 14:00 02/07/21 13:59 Ipratropium/Albuterol Sulfate 3 Ml Ampul.Neb IH 1 ampul TIDRT PJ Administration Apixaban 2.5 mg 02/04/21 22:00 02/07/21 09:18 Apixaban 2.5 Mg Tab PO 2.5 mg Q12HR PJ Administration Protocol Aripiprazole 15 mg 01/31/21 13:00 02/07/21 09:19 Aripiprazole 15 Mg Tab PO 15 mg QDAY PJ Administration Ascorbic Acid 1,000 mg 02/04/21 10:00 02/07/21 09:18 Ascorbic Acid 500 Mg Tab PO 1,000 mg BID PJ Administration Cholecalciferol 5,000 unit 02/04/21 10:00 02/07/21 09:18 Cholecalciferol (Vit D3) 5,000 Unit Tab PO 5,000 unit DAILY PJ Administration Divalproex Sodium 500 mg 01/31/21 12:00 02/07/21 09:18 Divalproex Er 500 Mg Tab PO 500 mg QDAY PJ Administration Famotidine 20 mg 01/18/21 10:00 02/07/21 09:18 Famotidine 20 Mg Tab PO 20 mg BID PJ Administration Hydralazine HCl 10 mg 01/18/21 00:38 01/24/21 23:12 Hydralazine 20 Mg/1 Ml Inj IV 10 mg Q6H PRN Administration htn Hydromorphone HCl 0.5 mg 01/20/21 11:00 Hydromorphone 1 Mg/1 Ml Inj IV Q6H PRN Pain , Severe (7-10) Hydrophilic Ointment 1 applic 02/03/21 12:00 Petrolatum,White 30 Gm Oint TP PRN PRN Skin Irritation Insulin Glargine 20 units 01/20/21 22:00 02/06/21 21:53 Insulin Glargine 100 Units/Ml SUB-Q Not Given QHS [facility] Insulin Human Lispro 0 unit 02/01/21 11:30 02/07/21 17:34 Insulin Lispro 100 Unit/Ml SUB-Q Not Given ACHS [facility] Protocol Metoprolol Tartrate 12.5 mg 02/01/21 12:00 02/07/21 09:19 Metoprolol Tartrate 25 Mg Tab PO 12.5 mg BID PJ Administration Mirtazapine 7.5 mg 01/21/21 22:00 02/06/21 21:54 Mirtazapine 15 Mg Tab PO Not Given QHS [facility] Ondansetron HCl 4 mg 01/18/21 00:36 Ondansetron 4 Mg/2 Ml Inj IV Q8H PRN Nausea And Vomiting Oxymetazoline HCl 2 spray 02/03/21 12:00 02/03/21 13:17 Oxymetazoline 0.05% Nasal [place] NS 2 spray Q12H PRN Administration Congestion Paliperidone 6 mg 01/31/21 13:00 02/07/21 09:18 Paliperidone Er 3 Mg Tab PO 6 mg QDAY PJ Administration Sodium Chloride 10 ml 01/18/21 10:00 02/07/21 09:20 Sodium Chloride 0.9% 10 Ml Flush Syringe IV 10 ml BID PJ Administration Sodium Chloride 10 ml 01/18/21 00:36 Sodium Chloride 0.9% 10 Ml Flush Syringe IV PRN PRN LINE FLUSH Zinc Sulfate 220 mg 02/04/21 10:00 02/07/21 09:20 Zinc Sulfate 220 Mg Cap PO 220 mg QDAY PJ Administration Nutrition/Malnutrition Assess - Dietary Evaluation Nutrition/Malnutrition Findings: Nutrition Notes Start: 01/24/21 10:40 Freq: Status: Active Protocol: Document 02/07/21 12:55 AL (Rec: 02/07/21 12:57 AL [id number]) Co-Sign 02/07/21 12:55 CW Nutrition Notes Need for Assessment generated from: maintenance painter Initial or Follow up Reassessment Current Diagnosis Respiratory Failure Other Pertinent Diagnosis pneu, COVID-19(+), AMS Current Diet Cardiac diet with Consistent CHO modifications Labs/Tests BG 267 Pertinent Medications Lasix Height 5 ft 4 in Weight 93.2 kg [place] Body Weight (kg) 54.54 BMI 35.2 Weight Status Obese Subjective/Other Information MD order for TF. Pt not receiving TF and ate breakfast at 100% per RN. Pt consumes 50% ONS. RN screen for skin risk. Milo score 16. Percent of energy/protein needs met: 67%/64% (only breakfast) Burn Absent Trauma Absent GI Symptoms None Current % PO Fair (50-74%) Minimum of two criteria No Energy Intake (non-severe) <75% Estimated Energy Requirement >7 days #1 Nutrition Diagnosis Inadequate oral intake Etiology PO intakes vary As Evidenced by Signs and Symptoms Per RN, pt has AMS and eats occasionally Is patient on ventilator? No Is Patient Ambulatory and/or Out of Bed No REE-([facility]-confined to bed) 1812.660 Kcal/Kg value to use for calculation 15 Approximate Energy Requirements Using 1398 kcal/Kg Calculation Used for Recommendations Kcal/kg Additional Notes PRO needs: 59-74g (0.8-1g/kg AdBW 74 kg) Fluid needs: 1 mL/kcal or per MD Nutrition Intervention Change Diet Order: Continue current Add Supplement/Snack (indicate name/kcal Glucerna BID /protein ) Provides kCal: 440 Provides Protein (gm) 20 Goal #1 Meet at least 75% of energy and protein needs via PO and ONS intakes Anticipated Discharge Needs: Cardiac/ Consistent CHO Follow-Up By: 02/11/21 Additional Comments FU for stable PO intakes.
[2021-02-07 21:35] LABS: Blood Urea Nitrogen 14 mg/dL (7-17); Calcium 8.3 mg/dL (8.4-10.2); Hemolysis Index 2
[2021-02-07 21:37] LABS: BUN/Creatinine Ratio 28
[2021-02-07] MEDS: INSULIN GLARGINE 100 UNITS/ML SUB-Q SCH (21:52)
[2021-02-07] MEDS: MIRTAZAPINE 15 MG TAB PO SCH (21:53)
[2021-02-08 05:07] LABS: Hematocrit 31.8 % (30.3-42.9); Hemoglobin 9.7 gm/dl (10.1-14.3); Mean Corpuscular HGB Conc 31 % (30-34); Mean Corpuscular Volume 78 fl (79-97); Platelet Count 110 K/mm3 (140-440); Red Blood Count 4.07 M/mm3 (3.65-5.03); Red Cell Distribution Width 17.9 % (13.2-15.2)
[2021-02-08 05:30] LABS: Blood Urea Nitrogen 15 mg/dL (7-17); Hemolysis Index 3
[2021-02-08 05:31] LABS: BUN/Creatinine Ratio 38
--- NOTE | 2021-02-08 07:24 | Progress Note ---
Assessment and Plan Assessment and plan: This is a 55-year-old female with schizophrenia who presented to [facility] on 01/18 for shortness of breath, cough, subjective fever and not feeling well for the last couple days with known COVID-19 exposure. While in the emergency room patient was switched from non rebreather mask to high flow nasal cannula and his CTA chest showed no acute pulmonary embolism. Patient was admitted to the hospital service as a COVID-19 PUI with consults to CCM, infectious disease, psych. Severe COVID-19 pneumonia Acute hypoxic respiratory failure Obesity Schizophrenia Leukocytosis Hyperglycemia Schizophrenia Hypernatremia Hypercholermia Hemoptysis -CCM, infectious disease, psychiatry consulted, appreciate recommendations -COVID-19 PCR positive -Droplet/contact isolation -Remdesivir, azithromycin, ceftriaxone, dexamethasone (twice daily dosing) -s/p Actemra -Wean supplemental oxygen as tolerated, pulmonary hygiene -Prone as tolerated -Trend COVID-19 inflammatory markers for risk stratification, CBC, CMP -SSI, Lantus -01/18 bilateral lower extremity Doppler ultrasound negative for DVT -01/17 CTA shows no evidence of pulmonary embolism, extensive bilateral pneumonia, hepatomegaly with hepatic steatosis 01/18/2021 -Acute hypoxic respiratory failure requiring high flow oxygen 40 L. Nebulizer treatment -Patient is admitted for suspected Covid pneumonia. Patient is on dexamethasone, COVID-19 test is pending. Patient is on empiric antibiotics. -ID consulted, will consult pulmonary. -Patient has hyponatremia yesterday and I will repeat and if it is low I will manage accordingly -Patient has elevated D-dimer and CTA chest and bilateral Doppler ultrasound of the lower extremities pending 01/19/2021 -Acute hypoxic respiratory failure currently on BiPAP, nebulizer treatment. I will put in orders to transfer to [facility] yesterday but there was no bed. -Patient is positive for Covid and she is on Decadron and remdesivir. Actemra was ordered on 01/19/2021 -ID evaluated the patient and recommend to continue Decadron and remdesivir, also to continue ceftriaxone and azithromycin for 5 days because of the elevated procalcitonin level. Pulmonary was consulted and recommend to continue current management and add Lasix -CTA chest was done and significant for bilateral pulmonary opacities, negative for PE, Doppler ultrasound of the lower extremities was negative for DVT. -Prognosis is guarded. -Patient is currently on BiPAP and she was agitated and trying to take off the BiPAP, I put the patient on restraints. Discussed with powerhouse engineer to transfer the patient to IMCU and if there is no bed she need to be transferred to CCU. 01/20: Patient received 5 mg of Haldol for severe agitation and refusal to keep high flow nasal cannula in place. [facility] ordered Lasix again. Psych was consulted today. Patient was on BiPAP therapy all night and RT attempted to give her a break patient is on high flow nasal cannula however she did not keep this in place and was paced back on BiPAP after receiving Haldol. She was started on Lantus today. 01/21: Patient is on BiPAP and on time examination was on 20/10 100% FiO2. Patient was started on Lantus. Psych consult completed and started on Haldol p.o. twice daily and Mirtazepin PO daily. No acute events reported overnight. Patient's D-dimer is greater than 10,000 started on prophylactic Lovenox as recent CTA chest and bilateral lower extremity Doppler ultrasound were negative. 01/22: Patient has been taken off BiPAP therapy and placed on high flow nasal cannula. Patient has been downgraded to IMCU. Patient's hyponatremia and hypochloremia have worsened. 01/23: Patient was on BiPAP overnight with FiO2 85% and IPAP 20/EPAP 10. Patient currently with high flow nasal cannula 40 L O2 with an FiO2 of 100%. Continue remdesivir and dexamethasone. Patient is s/p Actemra on 01/20. Continue empiric antibiotics per ID recommendations. Continue anticoagulation per protocol. 01/24: Patient is tachycardic and hypertensive and [facility] has opted to add amlodipine. Patient remains on 40 L 100% high flow nasal cannula. Continue remdesivir and dexamethasone. Patient is s/p Actemra on 01/20. Continue empiric antibiotics per ID recommendations. Continue anticoagulation per protocol. 01/25: Patient currently with high flow nasal cannula 40 L/min with FiO2 100%. Continue dexamethasone. Patient has completed remdesivir and s/p Actemra on 01/20. Continue full dose anticoagulation given high elevated D-dimer. Continue to trend inflammatory markers. Prognosis remains guarded. 01/26: Patient currently with high flow nasal cannula 35 L/min and FiO2 90%. Continue dexamethasone. Patient has completed remdesivir and s/p Actemra on 01/20. Continue full dose anticoagulation given high elevated D-dimer. Continue to trend inflammatory markers. Prognosis remains guarded. 01/27: Patient currently with high flow nasal cannula/Vapotherm 35 L/min O2 with FiO2 90%. Patient has completed remdesivir and s/p Actemra on 01/20. Continue full dose anticoagulation given high elevated D-dimer. Continue to trend inflammatory markers. Prognosis remains guarded. 01/28; Patient currently with high flow nasal cannula/Vapotherm 35 L/min O2 with FiO2 90%. Patient has completed remdesivir and s/p Actemra on 01/20. Continue full dose anticoagulation given high elevated D-dimer. Continue to trend inflammatory markers. Prognosis remains guarded. 01/29; patient is currently on 35 L of high flow oxygen. Prognosis guarded. Patient can be transferred to regular floor. 01/30/2021; patient is currently on 35 L of high flow oxygen, FiO2 of 65%. Patient has flat affect and did not talk to me. Patient refused most of her p.o. medications. Patient finished remdesivir, steroid. 01/31/2021; patient is on 35 L of high flow oxygen, FiO2 65%. Patient was calm and cooperative and communicative today. pulmonary is following. Patient finished remdesivir and steroid. 02/01/2021; patient was on 40 L of high flow oxygen.. I have called and discussed with her mother yesterday. Her mother told me patient was last followed at [facility] and I called facility and they told me medication she was on and I put these medications. Patient refused to eat so I put the patient on NG tube feeding for medications. Prognosis is guarded. 02/02/2021; patient is on 4 L of high flow oxygen with FiO2 of 60%. Her outpatient psych medications were reconciled. Patient was taking medications and as needed NG tube. Pulmonary is following the patient. 02/03/21: Patient noted with mild epistaxis this morning we will order some Afrin to help. Continue current management patient is on 35 L high flow. No worsening distress but still with intermittent confusion sometimes takes off the oxygen. Will repeat a trial of Lasix and monitor renal function with a.m. labs. Plan discussed with nurse at bedside. I also encouraged proning again. 02/04: Unfortunately still with hypoxia desaturating required increased to 50 L and 70% will gradually taper down. Patient due to her underlying psych history of schizophrenia is noncompliant. Daughter is working on getting guardianship over the patient. This will likely be a slow process nevertheless we will still obtain a CT of the head to ensure no other pathology. We will get an ABG and a chest x-ray today. 02/05: Patient overnight had an episode where she coughed up blood. H&H has remained stable. She has been since discontinued from full dose anticoagulants to DVT prophylactic dose. Chest x-ray shows mild worsening of congestion. Will discuss with pulmonary if patient will benefit from BiPAP during hours of sleep. Still awaiting information from family on prior psych medications that the patient was on psych review with psychiatry team as her mental status remains a deterrent and an impediment to oxygen management. We will give a trial dose of Lasix x 3 days. Will transfer to [facility] for closer monitoring 02/06: Continue supportive care, 2 more days of lasix, monitor BMP closely wean oxygen as tolerated, pulmonary input noted 02/07: Continues on High flow. Refusing medications, still with severe hypoxia, Discussed with Psych to re-evaluate the patient. 02/08: Unfortunately patient was not seen by psych yesterday and I still do not have home medication listed I asked the family and they promised to bring her in. We discussed with nursing staff to ask again. We will also reconsult psych as her underlying psych condition is precluding improvement due to her refusal of medical treatments. Patient continues on high flow 10 today will be to further wean down if tolerated. She is still refusing prone position The high probability of a clinically significant, sudden or life threatening deterioration of the [pulmonary] system(s) required my full and direct attenti on, intervention and personal management. The aggregate critical care time was [35] minutes. This time is in addition to time spent performing reported procedures but includes the following: [x] Data Review and interpretation [x] Patient assessment and monitoring of vital signs [x] Documentation [x] Medication orders and management History Interval history: Patient seen and examined confused, remains Hypoxia, still refusing procedures and some meds. I have called family multiple times to obtain home medications still do not have the will discuss with staff today to attempt again. Hospitalist Physical - Physical exam Narrative exam: ON HIGH FLOW The patient appeared well nourished and normally developed. responsive and intractive but still with some confused Vital signs as documented. Head exam is unremarkable. No scleral icterus . Neck is without jugular venous distension, thyromegaly, or carotid bruits. Lungs decreased air entry on both lungs Cardiac exam reveals regular rate and Rhythm. Abdominal exam reveals normal bowel sounds, nontender, no organomegaly. Extremities are nonedematous and both femoral and pedal pulses are normal. KNOT BORER: Patient was on restraints. Patient is pleasant and communicative today, but still confused. - Constitutional Vitals: Temp Pulse Resp BP Pulse Ox 98.6 F 107 H 21 112/59 93 02/08/21 00:00 02/08/21 02:00 02/08/21 02:00 02/08/21 02:00 02/08/21 04:09 General appearance: Present: no acute distress, well-nourished HEART Score - HEART Score Troponin: Troponin T < 0.010 ng/mL (0.00-0.029) 01/17/21 16:41 Results - Labs CBC & Chem 7: 02/08/21 04:46 02/08/21 04:46 Labs: Laboratory Last Values WBC 4.2 K/mm3 (4.5-11.0) L 02/08/21 04:46 RBC 4.07 M/mm3 (3.65-5.03) 02/08/21 04:46 Hgb 9.7 gm/dl (10.1-14.3) L 02/08/21 04:46 Hct 31.8 % (30.3-42.9) 02/08/21 04:46 MCV 78 fl (79-97) L 02/08/21 04:46 MCH 24 pg (28-32) L 02/08/21 04:46 MCHC 31 % (30-34) 02/08/21 04:46 RDW 17.9 % (13.2-15.2) H 02/08/21 04:46 Plt Count 110 K/mm3 (140-440) L 02/08/21 04:46 Lymph % (Auto) 44.9 % (13.4-35.0) H 02/02/21 07:56 [place] % (Auto) 9.2 % (0.0-7.3) H 02/02/21 07:56 Eos % (Auto) 3.6 % (0.0-4.3) 02/02/21 07:56 Baso % (Auto) 0.3 % (0.0-1.8) 02/02/21 07:56 Lymph # (Auto) 1.4 K/mm3 (1.2-5.4) 02/02/21 07:56 [place] # (Auto) 0.3 K/mm3 (0.0-0.8) 02/02/21 07:56 Eos # (Auto) 0.1 K/mm3 (0.0-0.4) 02/02/21 07:56 Baso # (Auto) 0.0 K/mm3 (0.0-0.1) 02/02/21 07:56 Add Manual Diff Complete 01/19/21 05:11 Total Counted 100 01/19/21 05:11 Seg Neutrophils % 42.0 % (40.0-70.0) 02/02/21 07:56 Seg Neuts % (Manual) 88.0 % (40.0-70.0) H 01/19/21 05:11 Lymphocytes % (Manual) 10.0 % (13.4-35.0) L 01/19/21 05:11 Monocytes % (Manual) 2.0 % (0.0-7.3) 01/19/21 05:11 Nucleated RBC % Not Reportable 01/19/21 05:11 Seg Neutrophils # 1.3 K/mm3 (1.8-7.7) L 02/02/21 07:56 Seg Neutrophils # Man 12.5 K/mm3 (1.8-7.7) H 01/19/21 05:11 Band Neutrophils # 0.0 K/mm3 01/19/21 05:11 Lymphocytes # (Manual) 1.4 K/mm3 (1.2-5.4) 01/19/21 05:11 Abs React Lymphs (Man) 0.0 K/mm3 01/19/21 05:11 Monocytes # (Manual) 0.3 K/mm3 (0.0-0.8) 01/19/21 05:11 Eosinophils # (Manual) 0.0 K/mm3 (0.0-0.4) 01/19/21 05:11 Basophils # (Manual) 0.0 K/mm3 (0.0-0.1) 01/19/21 05:11 Metamyelocytes # 0.0 K/mm3 01/19/21 05:11 Myelocytes # 0.0 K/mm3 01/19/21 05:11 Promyelocytes # 0.0 K/mm3 01/19/21 05:11 Blast Cells # 0.0 K/mm3 01/19/21 05:11 WBC Morphology Not Reportable 01/19/21 05:11 Hypersegmented Neuts Not Reportable 01/19/21 05:11 Hyposegmented Neuts Not Reportable 01/19/21 05:11 Hypogranular Neuts Not Reportable 01/19/21 05:11 Smudge Cells Not Reportable 01/19/21 05:11 Toxic Granulation Not Reportable 01/19/21 05:11 Toxic Vacuolation Not Reportable 01/19/21 05:11 Dohle Bodies Not Reportable 01/19/21 05:11 Pelger-Huet Anomaly Not Reportable 01/19/21 05:11 Inder Rods Not Reportable 01/19/21 05:11 Platelet Estimate Consistent w auto 01/19/21 05:11 Clumped Platelets Not Reportable 01/19/21 05:11 Plt Clumps, EDTA Not Reportable 01/19/21 05:11 Large Platelets Not Reportable 01/19/21 05:11 Giant Platelets Not Reportable 01/19/21 05:11 Platelet Satelliting Not Reportable 01/19/21 05:11 Plt Morphology Comment Not Reportable 01/19/21 05:11 RBC Morphology Not Reportable 01/19/21 05:11 Dimorphic RBCs Not Reportable 01/19/21 05:11 Polychromasia Not Reportable 01/19/21 05:11 Hypochromasia 1+ 01/19/21 05:11 Poikilocytosis Not Reportable 01/19/21 05:11 Anisocytosis Not Reportable 01/19/21 05:11 Microcytosis Not Reportable 01/19/21 05:11 Macrocytosis Not Reportable 01/19/21 05:11 Spherocytes Not Reportable 01/19/21 05:11 Pappenheimer Bodies Not Reportable 01/19/21 05:11 Sickle Cells Not Reportable 01/19/21 05:11 Target Cells Not Reportable 01/19/21 05:11 Tear Drop Cells Not Reportable 01/19/21 05:11 Ovalocytes Not Reportable 01/19/21 05:11 Helmet Cells Not Reportable 01/19/21 05:11 [place] Bodies Not Reportable 01/19/21 05:11 [place] Rings Not Reportable 01/19/21 05:11 Giorgio Cells Not Reportable 01/19/21 05:11 Bite Cells Not Reportable 01/19/21 05:11 Crenated Cell Not Reportable 01/19/21 05:11 Elliptocytes Not Reportable 01/19/21 05:11 Acanthocytes (Spur) Not Reportable 01/19/21 05:11 Rouleaux Not Reportable 01/19/21 05:11 Hemoglobin C Crystals Not Reportable 01/19/21 05:11 Schistocytes Not Reportable 01/19/21 05:11 Malaria parasites Not Reportable 01/19/21 05:11 Chai Bodies Not Reportable 01/19/21 05:11 Hem Pathologist Commnt No 01/19/21 05:11 PT 13.6 Sec. (12.2-14.9) 02/04/21 14:52 INR 1.06 (0.87-1.13) 02/04/21 14:52 APTT 30.7 Sec. (24.2-36.6) 02/04/21 14:52 D-Dimer 1884.49 ng/mlDDU (0-234) H 01/28/21 08:46 ABG pH 7.418 pH Units (7.350-7.450) 02/04/21 12:45 ABG pCO2 48.7 mm Hg 02/04/21 12:45 ABG pO2 65.6 mm Hg (80.0-90.0) L 02/04/21 12:45 ABG HCO3 30.8 mmol/L (20.0-26.0) H 02/04/21 12:45 ABG O2 Saturation 94.0 % (95.0-99.0) L 02/04/21 12:45 ABG O2 Content 13.4 (0.0-44) 02/04/21 12:45 ABG Base Excess 5.5 mmol/L (-2.0-3.0) H 02/04/21 12:45 ABG Hemoglobin 10.3 gm/dl (12.0-16.0) L 02/04/21 12:45 ABG Carboxyhemoglobin 1.4 % (0.0-5.0) 02/04/21 12:45 ABG Methemoglobin 0.4 % (0.0-1.5) 02/04/21 12:45 Oxyhemoglobin 92.3 % (95.0-99.0) L 02/04/21 12:45 FiO2 40 % 02/04/21 12:45 Sodium 139 mmol/L (137-145) 02/08/21 04:46 Potassium 4.0 mmol/L (3.6-5.0) 02/08/21 04:46 Chloride 103.3 mmol/L (98-107) 02/08/21 04:46 Carbon Dioxide 29 mmol/L (22-30) 02/08/21 04:46 Anion Gap 11 mmol/L 02/08/21 04:46 BUN 15 mg/dL (7-17) 02/08/21 04:46 Creatinine 0.4 mg/dL (0.6-1.2) L 02/08/21 04:46 Estimated GFR > 60 ml/min 02/08/21 04:46 BUN/Creatinine Ratio 38 % 02/08/21 04:46 Glucose 220 mg/dL (65-100) H 02/08/21 04:46 POC Glucose 241 mg/dL (70-105) H 02/07/21 22:10 Lactic Acid 1.70 mmol/L (0.7-2.0) 01/17/21 16:41 Calcium 8.0 mg/dL (8.4-10.2) L 02/08/21 04:46 Ferritin 797.7 ng/mL (10.0-200.0) H 01/28/21 08:46 Total Bilirubin 0.30 mg/dL (0.1-1.2) 01/21/21 11:29 AST 34 units/L (5-40) 01/21/21 11:29 ALT 38 units/L (7-56) 01/21/21 11:29 Alkaline Phosphatase 117 units/L (35-129) 01/21/21 11:29 Ammonia 43.0 umol/L (25-60) 02/04/21 14:52 Lactate Dehydrogenase 556 units/L (91-180) H 01/28/21 08:46 Troponin T < 0.010 ng/mL (0.00-0.029) 01/17/21 16:41 C-Reactive Protein 0.20 mg/dL (0.00-1.30) 01/28/21 08:46 NT-Pro-B Natriuret Pep 40.88 pg/mL (0-900) 01/17/21 16:41 Total Protein 7.3 g/dL (6.3-8.2) 01/21/21 11:29 Albumin 3.4 g/dL (3.9-5) L 01/21/21 11:29 Albumin/Globulin Ratio 0.9 % 01/21/21 11:29 Procalcitonin 0.39 ng/mL (<0.15) 01/17/21 17:46 Coronavirus (PCR) Positive (Negative) A 01/17/21 09:25 Estrada/IV: Voiding Method External Female Catheter Active Medications - Current Medications Current Medications: Generic Name Dose Route Start Last Admin Trade Name Freq PRN Reason Stop Dose Admin Acetaminophen 650 mg 01/18/21 00:36 01/22/21 23:46 Acetaminophen 325 Mg Tab PO 650 mg Q4H PRN Administration Pain MILD(1-3)/Fever >100.5/PAN Albuterol/Ipratropium 1 ampul 02/01/21 14:00 02/07/21 19:32 Ipratropium/Albuterol Sulfate 3 Ml Ampul.Neb IH 1 ampul TIDRT PJ Administration Apixaban 2.5 mg 02/04/21 22:00 02/07/21 21:49 Apixaban 2.5 Mg Tab PO 2.5 mg Q12HR PJ Administration Protocol Aripiprazole 15 mg 01/31/21 13:00 02/07/21 09:19 Aripiprazole 15 Mg Tab PO 15 mg QDAY PJ Administration Ascorbic Acid 1,000 mg 02/04/21 10:00 02/07/21 21:54 Ascorbic Acid 500 Mg Tab PO 1,000 mg BID PJ Administration Cholecalciferol 5,000 unit 02/04/21 10:00 02/07/21 09:18 Cholecalciferol (Vit D3) 5,000 Unit Tab PO 5,000 unit DAILY PJ Administration Divalproex Sodium 500 mg 01/31/21 12:00 02/07/21 09:18 Divalproex Er 500 Mg Tab PO 500 mg QDAY PJ Administration Famotidine 20 mg 01/18/21 10:00 02/07/21 21:50 Famotidine 20 Mg Tab PO 20 mg BID PJ Administration Hydralazine HCl 10 mg 01/18/21 00:38 01/24/21 23:12 Hydralazine 20 Mg/1 Ml Inj IV 10 mg Q6H PRN Administration htn Hydromorphone HCl 0.5 mg 01/20/21 11:00 Hydromorphone 1 Mg/1 Ml Inj IV Q6H PRN Pain , Severe (7-10) Hydrophilic Ointment 1 applic 02/03/21 12:00 Petrolatum,White 30 Gm Oint TP PRN PRN Skin Irritation Insulin Glargine 20 units 01/20/21 22:00 02/07/21 21:52 Insulin Glargine 100 Units/Ml SUB-Q 20 units QHS JP Administration Insulin Human Lispro 0 unit 02/01/21 11:30 02/07/21 22:26 Insulin Lispro 100 Unit/Ml SUB-Q 4 unit ACHS PJ Administration Protocol Metoprolol Tartrate 12.5 mg 02/01/21 12:00 02/07/21 21:51 Metoprolol Tartrate 25 Mg Tab PO 12.5 mg BID PJ Administration Mirtazapine 7.5 mg 01/21/21 22:00 02/07/21 21:53 Mirtazapine 15 Mg Tab PO 7.5 mg QHS PJ Administration Ondansetron HCl 4 mg 01/18/21 00:36 Ondansetron 4 Mg/2 Ml Inj IV Q8H PRN Nausea And Vomiting Oxymetazoline HCl 2 spray 02/03/21 12:00 02/03/21 13:17 Oxymetazoline 0.05% Nasal [place] NS 2 spray Q12H PRN Administration Congestion Paliperidone 6 mg 01/31/21 13:00 02/07/21 09:18 Paliperidone Er 3 Mg Tab PO 6 mg QDAY PJ Administration Sodium Chloride 10 ml 01/18/21 10:00 02/07/21 21:55 Sodium Chloride 0.9% 10 Ml Flush Syringe IV 10 ml BID PJ Administration Sodium Chloride 10 ml 01/18/21 00:36 Sodium Chloride 0.9% 10 Ml Flush Syringe IV PRN PRN LINE FLUSH Zinc Sulfate 220 mg 02/04/21 10:00 02/07/21 09:20 Zinc Sulfate 220 Mg Cap PO 220 mg QDAY PJ Administration Nutrition/Malnutrition Assess - Dietary Evaluation Nutrition/Malnutrition Findings: Nutrition Notes Start: 01/24/21 10:40 Freq: Status: Active Protocol: Document 02/07/21 12:55 AL (Rec: 02/07/21 12:57 AL [id number]) Co-Sign 02/07/21 12:55 CW Nutrition Notes Need for Assessment 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 Pt not receiving TF and ate breakfast at 100% per RN. Pt consumes 50% ONS. RN screen for skin risk. Milo score 16. Percent of energy/protein needs met: 67%/64% (only breakfast) Burn Absent Trauma Absent GI Symptoms None Current % PO Fair (50-74%) Minimum of two criteria No Energy Intake (non-severe) <75% Estimated Energy Requirement >7 days #1 Nutrition Diagnosis Inadequate oral intake Etiology PO intakes vary As Evidenced by Signs and Symptoms Per RN, pt has AMS and eats occasionally Is patient on ventilator? No Is Patient Ambulatory and/or Out of Bed No REE-([facility]-confined to bed) 1812.660 Kcal/Kg value to use for calculation 15 Approximate Energy Requirements Using 1398 kcal/Kg Calculation Used for Recommendations Kcal/kg Additional Notes PRO needs: 59-74g (0.8-1g/kg AdBW 74 kg) Fluid needs: 1 mL/kcal or per MD Nutrition Intervention Change Diet Order: Continue current Add Supplement/Snack (indicate name/kcal Glucerna BID /protein ) Provides kCal: 440 Provides Protein (gm) 20 Goal #1 Meet at least 75% of energy and protein needs via PO and ONS intakes Anticipated Discharge Needs: Cardiac/ Consistent CHO Follow-Up By: 02/11/21 Additional Comments FU for stable PO intakes.
[2021-02-08] MEDS: INSULIN LISPRO 100 UNIT/ML SUB-Q SCH ×4 (08:24→22:26)
[2021-02-08] MEDS: IPRATROPIUM/ALBUTEROL SULFATE 3 ML AMPUL.NEB IH SCH ×3 (08:58→19:34)
[2021-02-08] MEDS: CHOLECALCIFEROL (VIT D3) 5,000 UNIT TAB PO SCH (09:06)
[2021-02-08] MEDS: METOPROLOL TARTRATE 25 MG TAB PO SCH ×2 (09:06→22:27)
[2021-02-08] MEDS: PALIPERIDONE ER 3 MG TAB PO SCH (09:07)
[2021-02-08] MEDS: ASCORBIC ACID 500 MG TAB PO SCH ×2 (09:07→22:28)
[2021-02-08] MEDS: ARIPiprazole 15 MG TAB PO SCH (09:07)
[2021-02-08] MEDS: FAMOTIDINE 20 MG TAB PO SCH ×2 (09:07→22:27)
[2021-02-08] MEDS: DIVALPROEX ER 500 MG TAB PO SCH (09:07)
[2021-02-08] MEDS: APIXABAN 2.5 MG TAB PO SCH ×2 (09:08→22:26)
[2021-02-08] MEDS: ZINC SULFATE 220 MG CAP PO SCH (09:08)
--- NOTE | 2021-02-08 11:24 | Progress Note ---
Assessment and Plan - Patient Problems (1) Acute respiratory failure due to COVID-19 Current Visit: Yes Status: Acute (2) Acute respiratory failure with hypoxia Current Visit: Yes Status: Acute (3) COVID-19 Current Visit: Yes Status: Acute (4) Hypoxia Current Visit: Yes Status: Acute (5) Pneumonia Current Visit: Yes Status: Acute (6) Respiratory failure Current Visit: Yes Status: Acute (7) Schizophrenia Current Visit: Yes Status: Acute (8) Cough with hemoptysis Current Visit: Yes Status: Acute Subjective Principal diagnosis: Covid-19 Interval history: appears less confused on hiflo o2 Objective Vital Signs - 12hr 02/07/21 02/08/21 02/08/21 23:00 00:00 00:01 Temperature 98.6 F Pulse Rate 119 H 112 H 113 H Pulse Rate [ 112 H From Monitor] Pulse Rate [ Posterior Bilateral Throughout] Respiratory 22 21 22 Rate Respiratory Rate [Posterior Bilateral Throughout] Blood Pressure 132/65 119/56 O2 Sat by Pulse 95 Oximetry 02/08/21 02/08/21 02/08/21 00:18 01:00 02:00 Temperature Pulse Rate 113 H 107 H Pulse Rate [ From Monitor] Pulse Rate [ Posterior Bilateral Throughout] Respiratory 25 H 21 Rate Respiratory Rate [Posterior Bilateral Throughout] Blood Pressure 134/72 112/59 O2 Sat by Pulse 96 92 93 Oximetry 02/08/21 02/08/21 02/08/21 03:00 04:00 04:09 Temperature 97.5 F L Pulse Rate 113 H 103 H Pulse Rate [ 102 H From Monitor] Pulse Rate [ Posterior Bilateral Throughout] Respiratory 18 22 Rate Respiratory Rate [Posterior Bilateral Throughout] Blood Pressure 132/80 118/62 O2 Sat by Pulse 93 91 93 Oximetry 02/08/21 02/08/21 02/08/21 05:00 06:01 07:00 Temperature Pulse Rate 101 H 122 H 104 H Pulse Rate [ From Monitor] Pulse Rate [ Posterior Bilateral Throughout] Respiratory 23 32 H Rate Respiratory Rate [Posterior Bilateral Throughout] Blood Pressure 140/73 150/64 125/64 O2 Sat by Pulse 90 91 Oximetry 02/08/21 02/08/21 02/08/21 08:00 08:58 09:06 Temperature 98.1 F Pulse Rate 109 H 122 H Pulse Rate [ 119 H From Monitor] Pulse Rate [ 116 H Posterior Bilateral Throughout] Respiratory 23 Rate Respiratory 24 Rate [Posterior Bilateral Throughout] Blood Pressure 146/76 152/81 O2 Sat by Pulse 92 Oximetry Constitutional: no acute distress, alert Eyes: non-icteric ENT: oropharynx moist Neck: supple, other (large in circumference) Effort: normal Ascultation: Bilateral: clear, diminished breath sounds Cardiovascular: other (tachy, RR; no mrg) Gastrointestinal: normoactive bowel sounds, soft, non-tender, non-distended Integumentary: normal Extremities: no cyanosis, no edema, pink and warm Neurologic: normal mental status, non-focal exam, pupils equal and round Psychiatric: mood appropriate, affect normal CBC and BMP: 02/08/21 04:46 02/08/21 04:46 ABG, PT/INR, D-dimer: ABG ABG pH 7.418 pH Units (7.350-7.450) 02/04/21 12:45 ABG pCO2 48.7 mm Hg 02/04/21 12:45 ABG pO2 65.6 mm Hg (80.0-90.0) L 02/04/21 12:45 ABG O2 Saturation 94.0 % (95.0-99.0) L 02/04/21 12:45 PT/INR, D-dimer PT 13.6 Sec. (12.2-14.9) 02/04/21 14:52 INR 1.06 (0.87-1.13) 02/04/21 14:52 D-Dimer 1884.49 ng/mlDDU (0-234) H 01/28/21 08:46 Abnormal lab findings: Abnormal Labs 01/17/21 01/17/21 01/17/21 09:25 16:41 16:41 WBC RBC 5.23 H Hgb MCV 76 L MCH 24 L RDW Plt Count Lymph % (Auto) 9.4 L [place] % (Auto) Lymph # (Auto) 0.8 L Seg Neutrophils % 85.4 H Seg Neuts % (Manual) Lymphocytes % (Manual) Seg Neutrophils # Seg Neutrophils # Man D-Dimer ABG pH ABG pO2 ABG HCO3 ABG O2 Saturation ABG Base Excess ABG Hemoglobin Oxyhemoglobin Sodium 128 L Chloride 90.8 L Carbon Dioxide BUN Creatinine Glucose 372 H POC Glucose Calcium Ferritin AST 98 H Lactate Dehydrogenase C-Reactive Protein Total Protein Albumin 3.2 L Coronavirus (PCR) Positive A 01/17/21 01/17/21 01/17/21 17:46 17:46 17:46 WBC RBC Hgb MCV MCH RDW Plt Count Lymph % (Auto) [place] % (Auto) Lymph # (Auto) Seg Neutrophils % Seg Neuts % (Manual) Lymphocytes % (Manual) Seg Neutrophils # Seg Neutrophils # Man D-Dimer 1058.54 H ABG pH ABG pO2 ABG HCO3 ABG O2 Saturation ABG Base Excess ABG Hemoglobin Oxyhemoglobin Sodium Chloride Carbon Dioxide BUN Creatinine Glucose 369 H POC Glucose Calcium Ferritin 668.4 H AST Lactate Dehydrogenase 519 H C-Reactive Protein 19.20 H Total Protein Albumin Coronavirus (PCR) 01/18/21 01/18/21 01/19/21 09:01 17:18 05:11 WBC 14.2 H RBC Hgb MCV 74 L MCH 23 L RDW Plt Count Lymph % (Auto) [place] % (Auto) Lymph # (Auto) Seg Neutrophils % Seg Neuts % (Manual) 88.0 H Lymphocytes % (Manual) 10.0 L Seg Neutrophils # Seg Neutrophils # Man 12.5 H D-Dimer ABG pH 7.461 H ABG pO2 53.1 L ABG HCO3 ABG O2 Saturation 89.4 L ABG Base Excess ABG Hemoglobin Oxyhemoglobin 88.0 L Sodium 132 L Chloride 93.6 L Carbon Dioxide BUN 18 H Creatinine Glucose 367 H POC Glucose Calcium 7.8 L Ferritin AST Lactate Dehydrogenase C-Reactive Protein Total Protein Albumin Coronavirus (PCR) 01/19/21 01/19/21 01/19/21 05:11 11:06 14:43 WBC RBC Hgb MCV MCH RDW Plt Count Lymph % (Auto) [place] % (Auto) Lymph # (Auto) Seg Neutrophils % Seg Neuts % (Manual) Lymphocytes % (Manual) Seg Neutrophils # Seg Neutrophils # Man D-Dimer ABG pH ABG pO2 ABG HCO3 ABG O2 Saturation ABG Base Excess ABG Hemoglobin Oxyhemoglobin Sodium Chloride Carbon Dioxide BUN 18 H Creatinine Glucose 304 H 379 H POC Glucose 382 H Calcium 8.3 L Ferritin AST 92 H 96 H Lactate Dehydrogenase C-Reactive Protein Total Protein Albumin 3.0 L 3.0 L Coronavirus (PCR) 01/19/21 01/19/21 01/20/21 16:18 22:18 07:31 WBC RBC Hgb MCV MCH RDW Plt Count Lymph % (Auto) [place] % (Auto) Lymph # (Auto) Seg Neutrophils % Seg Neuts % (Manual) Lymphocytes % (Manual) Seg Neutrophils # Seg Neutrophils # Man D-Dimer ABG pH ABG pO2 ABG HCO3 ABG O2 Saturation ABG Base Excess ABG Hemoglobin Oxyhemoglobin Sodium Chloride Carbon Dioxide BUN Creatinine Glucose POC Glucose 374 H 341 H 344 H Calcium Ferritin AST Lactate Dehydrogenase C-Reactive Protein Total Protein Albumin Coronavirus (PCR) 01/20/21 01/20/21 01/20/21 07:33 12:14 13:54 WBC RBC Hgb MCV MCH RDW Plt Count Lymph % (Auto) [place] % (Auto) Lymph # (Auto) Seg Neutrophils % Seg Neuts % (Manual) Lymphocytes % (Manual) Seg Neutrophils # Seg Neutrophils # Man D-Dimer ABG pH ABG pO2 ABG HCO3 ABG O2 Saturation ABG Base Excess ABG Hemoglobin Oxyhemoglobin Sodium Chloride Carbon Dioxide BUN 32 H 31 H Creatinine Glucose 343 H 396 H POC Glucose 365 H Calcium Ferritin AST 57 H 54 H Lactate Dehydrogenase C-Reactive Protein Total Protein 8.3 H Albumin 2.7 L 3.1 L Coronavirus (PCR) 01/20/21 01/20/21 01/21/21 18:28 21:25 04:45 WBC RBC Hgb MCV MCH RDW Plt Count Lymph % (Auto) [place] % (Auto) Lymph # (Auto) Seg Neutrophils % Seg Neuts % (Manual) Lymphocytes % (Manual) Seg Neutrophils # Seg Neutrophils # Man D-Dimer ABG pH ABG pO2 ABG HCO3 ABG O2 Saturation ABG Base Excess ABG Hemoglobin Oxyhemoglobin Sodium Chloride Carbon Dioxide 31 H BUN 41 H Creatinine Glucose 377 H POC Glucose 403 H 340 H Calcium Ferritin AST Lactate Dehydrogenase C-Reactive Protein Total Protein 8.3 H Albumin 3.0 L Coronavirus (PCR) 01/21/21 01/21/21 01/21/21 04:45 04:45 04:45 WBC RBC Hgb MCV MCH RDW Plt Count Lymph % (Auto) [place] % (Auto) Lymph # (Auto) Seg Neutrophils % Seg Neuts % (Manual) Lymphocytes % (Manual) Seg Neutrophils # Seg Neutrophils # Man D-Dimer > 24138 H ABG pH ABG pO2 ABG HCO3 ABG O2 Saturation ABG Base Excess ABG Hemoglobin Oxyhemoglobin Sodium Chloride Carbon Dioxide BUN Creatinine Glucose POC Glucose Calcium Ferritin 1688.0 H AST Lactate Dehydrogenase 649 H C-Reactive Protein 17.00 H Total Protein Albumin Coronavirus (PCR) 01/21/21 01/21/21 01/21/21 09:45 11:29 12:09 WBC RBC Hgb MCV MCH RDW Plt Count Lymph % (Auto) [place] % (Auto) Lymph # (Auto) Seg Neutrophils % Seg Neuts % (Manual) Lymphocytes % (Manual) Seg Neutrophils # Seg Neutrophils # Man D-Dimer ABG pH ABG pO2 ABG HCO3 ABG O2 Saturation ABG Base Excess ABG Hemoglobin Oxyhemoglobin Sodium 151 H Chloride Carbon Dioxide BUN 40 H Creatinine Glucose 412 H POC Glucose 401 H 372 H Calcium Ferritin AST Lactate Dehydrogenase C-Reactive Protein Total Protein Albumin 3.4 L Coronavirus (PCR) 01/21/21 01/21/21 01/22/21 18:26 21:09 02:00 WBC RBC Hgb MCV MCH RDW Plt Count Lymph % (Auto) [place] % (Auto) Lymph # (Auto) Seg Neutrophils % Seg Neuts % (Manual) Lymphocytes % (Manual) Seg Neutrophils # Seg Neutrophils # Man D-Dimer ABG pH ABG pO2 ABG HCO3 ABG O2 Saturation ABG Base Excess ABG Hemoglobin Oxyhemoglobin Sodium Chloride Carbon Dioxide BUN Creatinine Glucose POC Glucose 376 H 322 H 231 H Calcium Ferritin AST Lactate Dehydrogenase C-Reactive Protein Total Protein Albumin Coronavirus (PCR) 01/22/21 01/22/21 01/22/21 05:24 08:25 08:25 WBC RBC 5.44 H Hgb MCV 75 L MCH 23 L RDW 15.5 H Plt Count Lymph % (Auto) [place] % (Auto) Lymph # (Auto) Seg Neutrophils % Seg Neuts % (Manual) Lymphocytes % (Manual) Seg Neutrophils # Seg Neutrophils # Man D-Dimer ABG pH ABG pO2 ABG HCO3 ABG O2 Saturation ABG Base Excess ABG Hemoglobin Oxyhemoglobin Sodium 155 H Chloride 112.4 H Carbon Dioxide BUN 33 H Creatinine Glucose 274 H POC Glucose 275 H Calcium Ferritin AST Lactate Dehydrogenase C-Reactive Protein Total Protein Albumin Coronavirus (PCR) 01/22/21 01/22/21 01/22/21 11:53 16:03 21:41 WBC RBC Hgb MCV MCH RDW Plt Count Lymph % (Auto) [place] % (Auto) Lymph # (Auto) Seg Neutrophils % Seg Neuts % (Manual) Lymphocytes % (Manual) Seg Neutrophils # Seg Neutrophils # Man D-Dimer ABG pH ABG pO2 ABG HCO3 ABG O2 Saturation ABG Base Excess ABG Hemoglobin Oxyhemoglobin Sodium Chloride Carbon Dioxide BUN Creatinine Glucose POC Glucose 265 H 293 H 279 H Calcium Ferritin AST Lactate Dehydrogenase C-Reactive Protein Total Protein Albumin Coronavirus (PCR) 01/23/21 01/23/21 01/23/21 02:03 05:46 05:59 WBC RBC Hgb MCV MCH RDW Plt Count Lymph % (Auto) [place] % (Auto) Lymph # (Auto) Seg Neutrophils % Seg Neuts % (Manual) Lymphocytes % (Manual) Seg Neutrophils # Seg Neutrophils # Man D-Dimer ABG pH ABG pO2 ABG HCO3 ABG O2 Saturation ABG Base Excess ABG Hemoglobin Oxyhemoglobin Sodium Chloride Carbon Dioxide BUN Creatinine Glucose POC Glucose 268 H 303 H Calcium Ferritin 1116.0 H AST Lactate Dehydrogenase C-Reactive Protein Total Protein Albumin Coronavirus (PCR) 01/23/21 01/23/21 01/23/21 05:59 07:42 09:11 WBC RBC Hgb MCV MCH RDW Plt Count Lymph % (Auto) [place] % (Auto) Lymph # (Auto) Seg Neutrophils % Seg Neuts % (Manual) Lymphocytes % (Manual) Seg Neutrophils # Seg Neutrophils # Man D-Dimer ABG pH ABG pO2 ABG HCO3 ABG O2 Saturation ABG Base Excess ABG Hemoglobin Oxyhemoglobin Sodium Chloride Carbon Dioxide BUN Creatinine Glucose POC Glucose 291 H 285 H Calcium Ferritin AST Lactate Dehydrogenase 680 H C-Reactive Protein 5.80 H Total Protein Albumin Coronavirus (PCR) 01/23/21 01/23/21 01/23/21 14:06 17:05 17:59 WBC RBC Hgb MCV MCH RDW Plt Count Lymph % (Auto) [place] % (Auto) Lymph # (Auto) Seg Neutrophils % Seg Neuts % (Manual) Lymphocytes % (Manual) Seg Neutrophils # Seg Neutrophils # Man D-Dimer ABG pH ABG pO2 ABG HCO3 ABG O2 Saturation ABG Base Excess ABG Hemoglobin Oxyhemoglobin Sodium Chloride Carbon Dioxide BUN Creatinine Glucose POC Glucose 228 H 300 H 278 H Calcium Ferritin AST Lactate Dehydrogenase C-Reactive Protein Total Protein Albumin Coronavirus (PCR) 01/23/21 01/24/21 01/24/21 21:43 02:14 05:15 WBC RBC Hgb MCV MCH RDW Plt Count Lymph % (Auto) [place] % (Auto) Lymph # (Auto) Seg Neutrophils % Seg Neuts % (Manual) Lymphocytes % (Manual) Seg Neutrophils # Seg Neutrophils # Man D-Dimer ABG pH ABG pO2 ABG HCO3 ABG O2 Saturation ABG Base Excess ABG Hemoglobin Oxyhemoglobin Sodium Chloride Carbon Dioxide BUN Creatinine Glucose POC Glucose 223 H 427 H 392 H Calcium Ferritin AST Lactate Dehydrogenase C-Reactive Protein Total Protein Albumin Coronavirus (PCR) 01/24/21 01/24/21 01/24/21 07:03 07:03 09:10 WBC RBC 5.49 H Hgb MCV 75 L MCH 23 L RDW Plt Count Lymph % (Auto) 7.0 L [place] % (Auto) Lymph # (Auto) 0.5 L Seg Neutrophils % 86.1 H Seg Neuts % (Manual) Lymphocytes % (Manual) Seg Neutrophils # Seg Neutrophils # Man D-Dimer ABG pH ABG pO2 ABG HCO3 ABG O2 Saturation ABG Base Excess ABG Hemoglobin Oxyhemoglobin Sodium 149 H Chloride 111.4 H Carbon Dioxide BUN 24 H Creatinine Glucose 339 H POC Glucose 284 H Calcium Ferritin AST Lactate Dehydrogenase C-Reactive Protein Total Protein Albumin Coronavirus (PCR) 01/24/21 01/24/21 01/24/21 13:47 18:30 21:58 WBC RBC Hgb MCV MCH RDW Plt Count Lymph % (Auto) [place] % (Auto) Lymph # (Auto) Seg Neutrophils % Seg Neuts % (Manual) Lymphocytes % (Manual) Seg Neutrophils # Seg Neutrophils # Man D-Dimer ABG pH ABG pO2 ABG HCO3 ABG O2 Saturation ABG Base Excess ABG Hemoglobin Oxyhemoglobin Sodium Chloride Carbon Dioxide BUN Creatinine Glucose POC Glucose 317 H 180 H 262 H Calcium Ferritin AST Lactate Dehydrogenase C-Reactive Protein Total Protein Albumin Coronavirus (PCR) 01/25/21 01/25/21 01/25/21 01:22 05:35 08:36 WBC RBC Hgb MCV MCH RDW Plt Count Lymph % (Auto) [place] % (Auto) Lymph # (Auto) Seg Neutrophils % Seg Neuts % (Manual) Lymphocytes % (Manual) Seg Neutrophils # Seg Neutrophils # Man D-Dimer ABG pH ABG pO2 ABG HCO3 ABG O2 Saturation ABG Base Excess ABG Hemoglobin Oxyhemoglobin Sodium Chloride Carbon Dioxide BUN Creatinine Glucose POC Glucose 280 H 243 H 216 H Calcium Ferritin AST Lactate Dehydrogenase C-Reactive Protein Total Protein Albumin Coronavirus (PCR) 01/25/21 01/25/21 01/25/21 15:14 15:14 15:14 WBC RBC Hgb MCV MCH RDW Plt Count Lymph % (Auto) [place] % (Auto) Lymph # (Auto) Seg Neutrophils % Seg Neuts % (Manual) Lymphocytes % (Manual) Seg Neutrophils # Seg Neutrophils # Man D-Dimer 6312.54 H ABG pH ABG pO2 ABG HCO3 ABG O2 Saturation ABG Base Excess ABG Hemoglobin Oxyhemoglobin Sodium 146 H Chloride 108.1 H Carbon Dioxide BUN 19 H Creatinine Glucose 287 H POC Glucose Calcium 8.3 L Ferritin 869.5 H AST Lactate Dehydrogenase 685 H C-Reactive Protein Total Protein Albumin Coronavirus (PCR) 01/25/21 01/25/21 01/26/21 16:06 21:18 01:47 WBC RBC Hgb MCV MCH RDW Plt Count Lymph % (Auto) [place] % (Auto) Lymph # (Auto) Seg Neutrophils % Seg Neuts % (Manual) Lymphocytes % (Manual) Seg Neutrophils # Seg Neutrophils # Man D-Dimer ABG pH ABG pO2 ABG HCO3 ABG O2 Saturation ABG Base Excess ABG Hemoglobin Oxyhemoglobin Sodium Chloride Carbon Dioxide BUN Creatinine Glucose POC Glucose 267 H 197 H 255 H Calcium Ferritin AST Lactate Dehydrogenase C-Reactive Protein Total Protein Albumin Coronavirus (PCR) 01/26/21 01/26/21 01/26/21 05:23 05:23 05:23 WBC RBC Hgb MCV MCH RDW Plt Count Lymph % (Auto) [place] % (Auto) Lymph # (Auto) Seg Neutrophils % Seg Neuts % (Manual) Lymphocytes % (Manual) Seg Neutrophils # Seg Neutrophils # Man D-Dimer 5809.58 H ABG pH ABG pO2 ABG HCO3 ABG O2 Saturation ABG Base Excess ABG Hemoglobin Oxyhemoglobin Sodium 149 H Chloride 109.3 H Carbon Dioxide BUN 24 H Creatinine Glucose 362 H POC Glucose Calcium Ferritin 877.1 H AST Lactate Dehydrogenase 655 H C-Reactive Protein Total Protein Albumin Coronavirus (PCR) 01/26/21 01/26/21 01/26/21 05:23 06:06 09:28 WBC RBC 5.49 H Hgb MCV 77 L MCH 23 L RDW Plt Count Lymph % (Auto) [place] % (Auto) Lymph # (Auto) 0.8 L Seg Neutrophils % 78.9 H Seg Neuts % (Manual) Lymphocytes % (Manual) Seg Neutrophils # Seg Neutrophils # Man D-Dimer ABG pH ABG pO2 ABG HCO3 ABG O2 Saturation ABG Base Excess ABG Hemoglobin Oxyhemoglobin Sodium Chloride Carbon Dioxide BUN Creatinine Glucose POC Glucose 387 H 308 H Calcium Ferritin AST Lactate Dehydrogenase C-Reactive Protein Total Protein Albumin Coronavirus (PCR) 01/26/21 01/26/21 01/27/21 15:56 21:28 02:51 WBC RBC Hgb MCV MCH RDW Plt Count Lymph % (Auto) [place] % (Auto) Lymph # (Auto) Seg Neutrophils % Seg Neuts % (Manual) Lymphocytes % (Manual) Seg Neutrophils # Seg Neutrophils # Man D-Dimer ABG pH ABG pO2 ABG HCO3 ABG O2 Saturation ABG Base Excess ABG Hemoglobin Oxyhemoglobin Sodium Chloride Carbon Dioxide BUN Creatinine Glucose POC Glucose 172 H 316 H 267 H Calcium Ferritin AST Lactate Dehydrogenase C-Reactive Protein Total Protein Albumin Coronavirus (PCR) 01/27/21 01/27/21 01/27/21 04:22 04:22 04:22 WBC RBC Hgb MCV MCH RDW Plt Count Lymph % (Auto) [place] % (Auto) Lymph # (Auto) Seg Neutrophils % Seg Neuts % (Manual) Lymphocytes % (Manual) Seg Neutrophils # Seg Neutrophils # Man D-Dimer 4046.06 H ABG pH ABG pO2 ABG HCO3 ABG O2 Saturation ABG Base Excess ABG Hemoglobin Oxyhemoglobin Sodium Chloride 107.7 H Carbon Dioxide BUN 30 H Creatinine Glucose 281 H POC Glucose Calcium Ferritin 812.2 H AST Lactate Dehydrogenase 570 H C-Reactive Protein Total Protein Albumin Coronavirus (PCR) 01/27/21 01/27/21 01/27/21 04:22 05:55 12:00 WBC RBC 5.15 H Hgb MCV 76 L MCH 23 L RDW 15.5 H Plt Count Lymph % (Auto) 12.7 L [place] % (Auto) Lymph # (Auto) 0.9 L Seg Neutrophils % 81.3 H Seg Neuts % (Manual) Lymphocytes % (Manual) Seg Neutrophils # Seg Neutrophils # Man D-Dimer ABG pH ABG pO2 ABG HCO3 ABG O2 Saturation ABG Base Excess ABG Hemoglobin Oxyhemoglobin Sodium Chloride Carbon Dioxide BUN Creatinine Glucose POC Glucose 275 H 121 H Calcium Ferritin AST Lactate Dehydrogenase C-Reactive Protein Total Protein Albumin Coronavirus (PCR) 01/27/21 01/27/21 01/28/21 17:32 21:23 02:08 WBC RBC Hgb MCV MCH RDW Plt Count Lymph % (Auto) [place] % (Auto) Lymph # (Auto) Seg Neutrophils % Seg Neuts % (Manual) Lymphocytes % (Manual) Seg Neutrophils # Seg Neutrophils # Man D-Dimer ABG pH ABG pO2 ABG HCO3 ABG O2 Saturation ABG Base Excess ABG Hemoglobin Oxyhemoglobin Sodium Chloride Carbon Dioxide BUN Creatinine Glucose POC Glucose 195 H 179 H 210 H Calcium Ferritin AST Lactate Dehydrogenase C-Reactive Protein Total Protein Albumin Coronavirus (PCR) 01/28/21 01/28/21 01/28/21 05:09 08:44 08:46 WBC RBC Hgb MCV MCH RDW Plt Count Lymph % (Auto) [place] % (Auto) Lymph # (Auto) Seg Neutrophils % Seg Neuts % (Manual) Lymphocytes % (Manual) Seg Neutrophils # Seg Neutrophils # Man D-Dimer 1884.49 H ABG pH ABG pO2 ABG HCO3 ABG O2 Saturation ABG Base Excess ABG Hemoglobin Oxyhemoglobin Sodium Chloride Carbon Dioxide BUN Creatinine Glucose POC Glucose 202 H 191 H Calcium Ferritin AST Lactate Dehydrogenase C-Reactive Protein Total Protein Albumin Coronavirus (PCR) 01/28/21 01/28/21 01/28/21 08:46 08:46 12:18 WBC RBC Hgb MCV MCH RDW Plt Count Lymph % (Auto) [place] % (Auto) Lymph # (Auto) Seg Neutrophils % Seg Neuts % (Manual) Lymphocytes % (Manual) Seg Neutrophils # Seg Neutrophils # Man D-Dimer ABG pH ABG pO2 ABG HCO3 ABG O2 Saturation ABG Base Excess ABG Hemoglobin Oxyhemoglobin Sodium Chloride Carbon Dioxide BUN Creatinine Glucose POC Glucose 221 H Calcium Ferritin 797.7 H AST Lactate Dehydrogenase 556 H C-Reactive Protein Total Protein Albumin Coronavirus (PCR) 01/28/21 01/28/21 01/29/21 18:21 21:45 01:48 WBC RBC Hgb MCV MCH RDW Plt Count Lymph % (Auto) [place] % (Auto) Lymph # (Auto) Seg Neutrophils % Seg Neuts % (Manual) Lymphocytes % (Manual) Seg Neutrophils # Seg Neutrophils # Man D-Dimer ABG pH ABG pO2 ABG HCO3 ABG O2 Saturation ABG Base Excess ABG Hemoglobin Oxyhemoglobin Sodium Chloride Carbon Dioxide BUN Creatinine Glucose POC Glucose 214 H 148 H 248 H Calcium Ferritin AST Lactate Dehydrogenase C-Reactive Protein Total Protein Albumin Coronavirus (PCR) 01/29/21 01/29/21 01/29/21 05:17 10:17 11:39 WBC RBC Hgb MCV MCH RDW Plt Count Lymph % (Auto) [place] % (Auto) Lymph # (Auto) Seg Neutrophils % Seg Neuts % (Manual) Lymphocytes % (Manual) Seg Neutrophils # Seg Neutrophils # Man D-Dimer ABG pH ABG pO2 ABG HCO3 ABG O2 Saturation ABG Base Excess ABG Hemoglobin Oxyhemoglobin Sodium Chloride Carbon Dioxide BUN Creatinine Glucose POC Glucose 256 H 193 H 177 H Calcium Ferritin AST Lactate Dehydrogenase C-Reactive Protein Total Protein Albumin Coronavirus (PCR) 01/29/21 01/29/21 01/30/21 18:06 20:24 06:07 WBC RBC Hgb MCV MCH RDW Plt Count Lymph % (Auto) [place] % (Auto) Lymph # (Auto) Seg Neutrophils % Seg Neuts % (Manual) Lymphocytes % (Manual) Seg Neutrophils # Seg Neutrophils # Man D-Dimer ABG pH ABG pO2 ABG HCO3 ABG O2 Saturation ABG Base Excess ABG Hemoglobin Oxyhemoglobin Sodium Chloride Carbon Dioxide BUN Creatinine Glucose POC Glucose 107 H 114 H 114 H Calcium Ferritin AST Lactate Dehydrogenase C-Reactive Protein Total Protein Albumin Coronavirus (PCR) 01/30/21 01/30/21 01/30/21 12:08 16:11 21:19 WBC RBC Hgb MCV MCH RDW Plt Count Lymph % (Auto) [place] % (Auto) Lymph # (Auto) Seg Neutrophils % Seg Neuts % (Manual) Lymphocytes % (Manual) Seg Neutrophils # Seg Neutrophils # Man D-Dimer ABG pH ABG pO2 ABG HCO3 ABG O2 Saturation ABG Base Excess ABG Hemoglobin Oxyhemoglobin Sodium Chloride Carbon Dioxide BUN Creatinine Glucose POC Glucose 178 H 142 H 244 H Calcium Ferritin AST Lactate Dehydrogenase C-Reactive Protein Total Protein Albumin Coronavirus (PCR) 01/31/21 01/31/21 01/31/21 05:30 06:42 07:50 WBC RBC Hgb MCV MCH RDW Plt Count Lymph % (Auto) [place] % (Auto) Lymph # (Auto) Seg Neutrophils % Seg Neuts % (Manual) Lymphocytes % (Manual) Seg Neutrophils # Seg Neutrophils # Man D-Dimer ABG pH ABG pO2 ABG HCO3 ABG O2 Saturation ABG Base Excess ABG Hemoglobin Oxyhemoglobin Sodium Chloride Carbon Dioxide BUN 20 H Creatinine Glucose 160 H POC Glucose 164 H 152 H Calcium 8.0 L Ferritin AST Lactate Dehydrogenase C-Reactive Protein Total Protein Albumin Coronavirus (PCR) 01/31/21 01/31/21 01/31/21 11:40 16:37 21:01 WBC RBC Hgb MCV MCH RDW Plt Count Lymph % (Auto) [place] % (Auto) Lymph # (Auto) Seg Neutrophils % Seg Neuts % (Manual) Lymphocytes % (Manual) Seg Neutrophils # Seg Neutrophils # Man D-Dimer ABG pH ABG pO2 ABG HCO3 ABG O2 Saturation ABG Base Excess ABG Hemoglobin Oxyhemoglobin Sodium Chloride Carbon Dioxide BUN Creatinine Glucose POC Glucose 129 H 141 H 125 H Calcium Ferritin AST Lactate Dehydrogenase C-Reactive Protein Total Protein Albumin Coronavirus (PCR) 02/01/21 02/01/21 02/01/21 06:26 11:15 16:11 WBC RBC Hgb MCV MCH RDW Plt Count Lymph % (Auto) [place] % (Auto) Lymph # (Auto) Seg Neutrophils % Seg Neuts % (Manual) Lymphocytes % (Manual) Seg Neutrophils # Seg Neutrophils # Man D-Dimer ABG pH ABG pO2 ABG HCO3 ABG O2 Saturation ABG Base Excess ABG Hemoglobin Oxyhemoglobin Sodium Chloride Carbon Dioxide BUN Creatinine Glucose POC Glucose 136 H 260 H 240 H Calcium Ferritin AST Lactate Dehydrogenase C-Reactive Protein Total Protein Albumin Coronavirus (PCR) 02/01/21 02/02/21 02/02/21 22:32 07:15 07:56 WBC 3.1 L RBC Hgb MCV 75 L MCH 23 L RDW Plt Count Lymph % (Auto) 44.9 H [place] % (Auto) 9.2 H Lymph # (Auto) Seg Neutrophils % Seg Neuts % (Manual) Lymphocytes % (Manual) Seg Neutrophils # 1.3 L Seg Neutrophils # Man D-Dimer ABG pH ABG pO2 ABG HCO3 ABG O2 Saturation ABG Base Excess ABG Hemoglobin Oxyhemoglobin Sodium Chloride Carbon Dioxide BUN Creatinine Glucose POC Glucose 298 H 164 H Calcium Ferritin AST Lactate Dehydrogenase C-Reactive Protein Total Protein Albumin Coronavirus (PCR) 02/02/21 02/02/21 02/02/21 07:56 11:35 16:07 WBC RBC Hgb MCV MCH RDW Plt Count Lymph % (Auto) [place] % (Auto) Lymph # (Auto) Seg Neutrophils % Seg Neuts % (Manual) Lymphocytes % (Manual) Seg Neutrophils # Seg Neutrophils # Man D-Dimer ABG pH ABG pO2 ABG HCO3 ABG O2 Saturation ABG Base Excess ABG Hemoglobin Oxyhemoglobin Sodium Chloride Carbon Dioxide 31 H BUN Creatinine 0.4 L Glucose 159 H POC Glucose 297 H 252 H Calcium 8.2 L Ferritin AST Lactate Dehydrogenase C-Reactive Protein Total Protein Albumin Coronavirus (PCR) 02/02/21 02/03/21 02/03/21 22:33 17:04 22:17 WBC RBC Hgb MCV MCH RDW Plt Count Lymph % (Auto) [place] % (Auto) Lymph # (Auto) Seg Neutrophils % Seg Neuts % (Manual) Lymphocytes % (Manual) Seg Neutrophils # Seg Neutrophils # Man D-Dimer ABG pH ABG pO2 ABG HCO3 ABG O2 Saturation ABG Base Excess ABG Hemoglobin Oxyhemoglobin Sodium Chloride Carbon Dioxide BUN Creatinine Glucose POC Glucose 257 H 247 H 278 H Calcium Ferritin AST Lactate Dehydrogenase C-Reactive Protein Total Protein Albumin Coronavirus (PCR) 02/04/21 02/04/21 02/04/21 05:41 07:55 11:56 WBC RBC Hgb MCV MCH RDW Plt Count Lymph % (Auto) [place] % (Auto) Lymph # (Auto) Seg Neutrophils % Seg Neuts % (Manual) Lymphocytes % (Manual) Seg Neutrophils # Seg Neutrophils # Man D-Dimer ABG pH ABG pO2 ABG HCO3 ABG O2 Saturation ABG Base Excess ABG Hemoglobin Oxyhemoglobin Sodium Chloride Carbon Dioxide 31 H BUN 19 H Creatinine 0.5 L Glucose 184 H POC Glucose 182 H 227 H Calcium Ferritin AST Lactate Dehydrogenase C-Reactive Protein Total Protein Albumin Coronavirus (PCR) 02/04/21 02/04/21 02/04/21 12:45 14:52 16:45 WBC 4.0 L RBC Hgb MCV 77 L MCH 24 L RDW 15.5 H Plt Count Lymph % (Auto) [place] % (Auto) Lymph # (Auto) Seg Neutrophils % Seg Neuts % (Manual) Lymphocytes % (Manual) Seg Neutrophils # Seg Neutrophils # Man D-Dimer ABG pH ABG pO2 65.6 L ABG HCO3 30.8 H ABG O2 Saturation 94.0 L ABG Base Excess 5.5 H ABG Hemoglobin 10.3 L Oxyhemoglobin 92.3 L Sodium Chloride Carbon Dioxide BUN Creatinine Glucose POC Glucose 194 H Calcium Ferritin AST Lactate Dehydrogenase C-Reactive Protein Total Protein Albumin Coronavirus (PCR) 02/04/21 02/05/21 02/05/21 22:00 06:55 07:49 WBC RBC Hgb 10.0 L MCV MCH RDW Plt Count Lymph % (Auto) [place] % (Auto) Lymph # (Auto) Seg Neutrophils % Seg Neuts % (Manual) Lymphocytes % (Manual) Seg Neutrophils # Seg Neutrophils # Man D-Dimer ABG pH ABG pO2 ABG HCO3 ABG O2 Saturation ABG Base Excess ABG Hemoglobin Oxyhemoglobin Sodium Chloride Carbon Dioxide BUN Creatinine Glucose POC Glucose 281 H 204 H Calcium Ferritin AST Lactate Dehydrogenase C-Reactive Protein Total Protein Albumin Coronavirus (PCR) 02/05/21 02/05/21 02/05/21 11:23 16:13 16:22 WBC RBC Hgb 10.0 L MCV MCH RDW Plt Count Lymph % (Auto) [place] % (Auto) Lymph # (Auto) Seg Neutrophils % Seg Neuts % (Manual) Lymphocytes % (Manual) Seg Neutrophils # Seg Neutrophils # Man D-Dimer ABG pH ABG pO2 ABG HCO3 ABG O2 Saturation ABG Base Excess ABG Hemoglobin Oxyhemoglobin Sodium Chloride Carbon Dioxide BUN Creatinine Glucose POC Glucose 264 H 202 H Calcium Ferritin AST Lactate Dehydrogenase C-Reactive Protein Total Protein Albumin Coronavirus (PCR) 02/05/21 02/06/21 02/06/21 21:14 04:43 04:43 WBC 4.0 L RBC Hgb 10.0 L MCV 76 L MCH 23 L RDW 15.7 H Plt Count Lymph % (Auto) [place] % (Auto) Lymph # (Auto) Seg Neutrophils % Seg Neuts % (Manual) Lymphocytes % (Manual) Seg Neutrophils # Seg Neutrophils # Man D-Dimer ABG pH ABG pO2 ABG HCO3 ABG O2 Saturation ABG Base Excess ABG Hemoglobin Oxyhemoglobin Sodium Chloride Carbon Dioxide 32 H BUN Creatinine 0.4 L Glucose 163 H POC Glucose 180 H Calcium 8.3 L Ferritin AST Lactate Dehydrogenase C-Reactive Protein Total Protein Albumin Coronavirus (PCR) 02/06/21 02/06/21 02/06/21 08:01 11:44 16:11 WBC RBC Hgb MCV MCH RDW Plt Count Lymph % (Auto) [place] % (Auto) Lymph # (Auto) Seg Neutrophils % Seg Neuts % (Manual) Lymphocytes % (Manual) Seg Neutrophils # Seg Neutrophils # Man D-Dimer ABG pH ABG pO2 ABG HCO3 ABG O2 Saturation ABG Base Excess ABG Hemoglobin Oxyhemoglobin Sodium Chloride Carbon Dioxide BUN Creatinine Glucose POC Glucose 155 H 215 H 247 H Calcium Ferritin AST Lactate Dehydrogenase C-Reactive Protein Total Protein Albumin Coronavirus (PCR) 02/06/21 02/07/21 02/07/21 23:40 08:01 11:54 WBC RBC Hgb MCV MCH RDW Plt Count Lymph % (Auto) [place] % (Auto) Lymph # (Auto) Seg Neutrophils % Seg Neuts % (Manual) Lymphocytes % (Manual) Seg Neutrophils # Seg Neutrophils # Man D-Dimer ABG pH ABG pO2 ABG HCO3 ABG O2 Saturation ABG Base Excess ABG Hemoglobin Oxyhemoglobin Sodium Chloride Carbon Dioxide BUN Creatinine Glucose POC Glucose 267 H 233 H 227 H Calcium Ferritin AST Lactate Dehydrogenase C-Reactive Protein Total Protein Albumin Coronavirus (PCR) 02/07/21 02/07/21 02/07/21 15:48 20:58 20:58 WBC RBC Hgb MCV MCH RDW Plt Count Lymph % (Auto) [place] % (Auto) Lymph # (Auto) Seg Neutrophils % Seg Neuts % (Manual) Lymphocytes % (Manual) Seg Neutrophils # Seg Neutrophils # Man D-Dimer ABG pH ABG pO2 ABG HCO3 ABG O2 Saturation ABG Base Excess ABG Hemoglobin Oxyhemoglobin Sodium Chloride Carbon Dioxide 32 H BUN Creatinine 0.5 L 0.5 L Glucose 236 H POC Glucose 257 H Calcium 8.3 L Ferritin AST Lactate Dehydrogenase C-Reactive Protein Total Protein Albumin Coronavirus (PCR) 02/07/21 02/08/21 02/08/21 22:10 04:46 04:46 WBC 4.2 L RBC Hgb 9.7 L MCV 78 L MCH 24 L RDW 17.9 H Plt Count 110 L Lymph % (Auto) [place] % (Auto) Lymph # (Auto) Seg Neutrophils % Seg Neuts % (Manual) Lymphocytes % (Manual) Seg Neutrophils # Seg Neutrophils # Man D-Dimer ABG pH ABG pO2 ABG HCO3 ABG O2 Saturation ABG Base Excess ABG Hemoglobin Oxyhemoglobin Sodium Chloride Carbon Dioxide BUN Creatinine 0.4 L Glucose 220 H POC Glucose 241 H Calcium 8.0 L Ferritin AST Lactate Dehydrogenase C-Reactive Protein Total Protein Albumin Coronavirus (PCR) 02/08/21 08:05 WBC RBC Hgb MCV MCH RDW Plt Count Lymph % (Auto) [place] % (Auto) Lymph # (Auto) Seg Neutrophils % Seg Neuts % (Manual) Lymphocytes % (Manual) Seg Neutrophils # Seg Neutrophils # Man D-Dimer ABG pH ABG pO2 ABG HCO3 ABG O2 Saturation ABG Base Excess ABG Hemoglobin Oxyhemoglobin Sodium Chloride Carbon Dioxide BUN Creatinine Glucose POC Glucose 208 H Calcium Ferritin AST Lactate Dehydrogenase C-Reactive Protein Total Protein Albumin Coronavirus (PCR)
[2021-02-08] MEDS: INSULIN GLARGINE 100 UNITS/ML SUB-Q SCH (22:26)
[2021-02-08] MEDS: MIRTAZAPINE 15 MG TAB PO SCH (22:27)
[2021-02-09 05:07] LABS: BUN/Creatinine Ratio 28; Blood Urea Nitrogen 11 mg/dL (7-17); Calcium 8.1 mg/dL (8.4-10.2); Hemolysis Index 7
[2021-02-09] MEDS: CHOLECALCIFEROL (VIT D3) 5,000 UNIT TAB PO SCH (09:28)
[2021-02-09] MEDS: METOPROLOL TARTRATE 25 MG TAB PO SCH (09:28)
[2021-02-09] MEDS: PALIPERIDONE ER 3 MG TAB PO SCH (09:28)
[2021-02-09] MEDS: APIXABAN 2.5 MG TAB PO SCH (09:28)
[2021-02-09] MEDS: ASCORBIC ACID 500 MG TAB PO SCH (09:28)
[2021-02-09] MEDS: ARIPiprazole 15 MG TAB PO SCH (09:28)
[2021-02-09] MEDS: ZINC SULFATE 220 MG CAP PO SCH (09:28)
[2021-02-09] MEDS: FAMOTIDINE 20 MG TAB PO SCH (09:28)
[2021-02-09] MEDS: INSULIN LISPRO 100 UNIT/ML SUB-Q SCH ×3 (09:29→17:28)
[2021-02-09] MEDS: IPRATROPIUM/ALBUTEROL SULFATE 3 ML AMPUL.NEB IH SCH ×3 (09:30→20:03)
[2021-02-09] MEDS: DIVALPROEX ER 500 MG TAB PO SCH (09:31)
--- NOTE | 2021-02-09 11:26 | Progress Note ---
Assessment and Plan Assessment and plan: This is a 55-year-old female with schizophrenia who presented to [facility] on 01/18 for shortness of breath, cough, subjective fever and not feeling well for the last couple days with known COVID-19 exposure. While in the emergency room patient was switched from non rebreather mask to high flow nasal cannula and his CTA chest showed no acute pulmonary embolism. Patient was admitted to the hospital service as a COVID-19 PUI with consults to CCM, infectious disease, psych. Severe COVID-19 pneumonia Acute hypoxic respiratory failure Obesity Schizophrenia Leukocytosis Hyperglycemia Schizophrenia Hypernatremia Hypercholermia Hemoptysis -CCM, infectious disease, psychiatry consulted, appreciate recommendations -COVID-19 PCR positive -Droplet/contact isolation -Remdesivir, azithromycin, ceftriaxone, dexamethasone (twice daily dosing) -s/p Actemra -Wean supplemental oxygen as tolerated, pulmonary hygiene -Prone as tolerated -Trend COVID-19 inflammatory markers for risk stratification, CBC, CMP -SSI, Lantus -01/18 bilateral lower extremity Doppler ultrasound negative for DVT -01/17 CTA shows no evidence of pulmonary embolism, extensive bilateral pneumonia, hepatomegaly with hepatic steatosis 01/18/2021 -Acute hypoxic respiratory failure requiring high flow oxygen 40 L. Nebulizer treatment -Patient is admitted for suspected Covid pneumonia. Patient is on dexamethasone, COVID-19 test is pending. Patient is on empiric antibiotics. -ID consulted, will consult pulmonary. -Patient has hyponatremia yesterday and I will repeat and if it is low I will manage accordingly -Patient has elevated D-dimer and CTA chest and bilateral Doppler ultrasound of the lower extremities pending 01/19/2021 -Acute hypoxic respiratory failure currently on BiPAP, nebulizer treatment. I will put in orders to transfer to [facility] yesterday but there was no bed. -Patient is positive for Covid and she is on Decadron and remdesivir. Actemra was ordered on 01/19/2021 -ID evaluated the patient and recommend to continue Decadron and remdesivir, also to continue ceftriaxone and azithromycin for 5 days because of the elevated procalcitonin level. Pulmonary was consulted and recommend to continue current management and add Lasix -CTA chest was done and significant for bilateral pulmonary opacities, negative for PE, Doppler ultrasound of the lower extremities was negative for DVT. -Prognosis is guarded. -Patient is currently on BiPAP and she was agitated and trying to take off the BiPAP, I put the patient on restraints. Discussed with powerhouse attendant to transfer the patient to IMCU and if there is no bed she need to be transferred to CCU. 01/20: Patient received 5 mg of Haldol for severe agitation and refusal to keep high flow nasal cannula in place. [facility] ordered Lasix again. Psych was consulted today. Patient was on BiPAP therapy all night and RT attempted to give her a break patient is on high flow nasal cannula however she did not keep this in place and was paced back on BiPAP after receiving Haldol. She was started on Lantus today. 01/21: Patient is on BiPAP and on time examination was on 20/10 100% FiO2. Patient was started on Lantus. Psych consult completed and started on Haldol p.o. twice daily and Mirtazepin PO daily. No acute events reported overnight. Patient's D-dimer is greater than 10,000 started on prophylactic Lovenox as recent CTA chest and bilateral lower extremity Doppler ultrasound were negative. 01/22: Patient has been taken off BiPAP therapy and placed on high flow nasal cannula. Patient has been downgraded to IMCU. Patient's hyponatremia and hypochloremia have worsened. 01/23: Patient was on BiPAP overnight with FiO2 85% and IPAP 20/EPAP 10. Patient currently with high flow nasal cannula 40 L O2 with an FiO2 of 100%. Continue remdesivir and dexamethasone. Patient is s/p Actemra on 01/20. Continue empiric antibiotics per ID recommendations. Continue anticoagulation per protocol. 01/24: Patient is tachycardic and hypertensive and [facility] has opted to add amlodipine. Patient remains on 40 L 100% high flow nasal cannula. Continue remdesivir and dexamethasone. Patient is s/p Actemra on 01/20. Continue empiric antibiotics per ID recommendations. Continue anticoagulation per protocol. 01/25: Patient currently with high flow nasal cannula 40 L/min with FiO2 100%. Continue dexamethasone. Patient has completed remdesivir and s/p Actemra on 01/20. Continue full dose anticoagulation given high elevated D-dimer. Continue to trend inflammatory markers. Prognosis remains guarded. 01/26: Patient currently with high flow nasal cannula 35 L/min and FiO2 90%. Continue dexamethasone. Patient has completed remdesivir and s/p Actemra on 01/20. Continue full dose anticoagulation given high elevated D-dimer. Continue to trend inflammatory markers. Prognosis remains guarded. 01/27: Patient currently with high flow nasal cannula/Vapotherm 35 L/min O2 with FiO2 90%. Patient has completed remdesivir and s/p Actemra on 01/20. Continue full dose anticoagulation given high elevated D-dimer. Continue to trend inflammatory markers. Prognosis remains guarded. 01/28; Patient currently with high flow nasal cannula/Vapotherm 35 L/min O2 with FiO2 90%. Patient has completed remdesivir and s/p Actemra on 01/20. Continue full dose anticoagulation given high elevated D-dimer. Continue to trend inflammatory markers. Prognosis remains guarded. 01/29; patient is currently on 35 L of high flow oxygen. Prognosis guarded. Patient can be transferred to regular floor. 01/30/2021; patient is currently on 35 L of high flow oxygen, FiO2 of 65%. Patient has flat affect and did not talk to me. Patient refused most of her p.o. medications. Patient finished remdesivir, steroid. 01/31/2021; patient is on 35 L of high flow oxygen, FiO2 65%. Patient was calm and cooperative and communicative today. pulmonary is following. Patient finished remdesivir and steroid. 02/01/2021; patient was on 40 L of high flow oxygen.. I have called and discussed with her mother yesterday. Her mother told me patient was last followed at [facility] and I called facility and they told me medication she was on and I put these medications. Patient refused to eat so I put the patient on NG tube feeding for medications. Prognosis is guarded. 02/02/2021; patient is on 4 L of high flow oxygen with FiO2 of 60%. Her outpatient psych medications were reconciled. Patient was taking medications and as needed NG tube. Pulmonary is following the patient. 02/03/21: Patient noted with mild epistaxis this morning we will order some Afrin to help. Continue current management patient is on 35 L high flow. No worsening distress but still with intermittent confusion sometimes takes off the oxygen. Will repeat a trial of Lasix and monitor renal function with a.m. labs. Plan discussed with nurse at bedside. I also encouraged proning again. 02/04: Unfortunately still with hypoxia desaturating required increased to 50 L and 70% will gradually taper down. Patient due to her underlying psych history of schizophrenia is noncompliant. Daughter is working on getting guardianship over the patient. This will likely be a slow process nevertheless we will still obtain a CT of the head to ensure no other pathology. We will get an ABG and a chest x-ray today. 02/05: Patient overnight had an episode where she coughed up blood. H&H has remained stable. She has been since discontinued from full dose anticoagulants to DVT prophylactic dose. Chest x-ray shows mild worsening of congestion. Will discuss with pulmonary if patient will benefit from BiPAP during hours of sleep. Still awaiting information from family on prior psych medications that the patient was on psych review with psychiatry team as her mental status remains a deterrent and an impediment to oxygen management. We will give a trial dose of Lasix x 3 days. Will transfer to [facility] for closer monitoring 02/06: Continue supportive care, 2 more days of lasix, monitor BMP closely wean oxygen as tolerated, pulmonary input noted 02/07: Continues on High flow. Refusing medications, still with severe hypoxia, Discussed with Psych to re-evaluate the patient. 02/08: Unfortunately patient was not seen by psych yesterday and I still do not have home medication listed I asked the family and they promised to bring her in. We discussed with nursing staff to ask again. We will also reconsult psych as her underlying psych condition is precluding improvement due to her refusal of medical treatments. Patient continues on high flow 10 today will be to further wean down if tolerated. She is still refusing prone position 02/09: Patient remains on oxygen, not compliance, continues on restraints to assist with compliance, will try to wean again The high probability of a clinically significant, sudden or life threatening deterioration of the [pulmonary] system(s) required my full and direct attention, intervention and personal management. The aggregate critical care time was [35] minutes. This time is in addition to time spent performing reported procedures but includes the following: [x] Data Review and interpretation [x] Patient assessment and monitoring of vital signs [x] Documentation [x] Medication orders and management History Interval history: Patient seen and examined confused, remains Hypoxia, overnight was noted to have removed his oxygen and desaturated. FiO2 was increased to 100%this morning we will try to wean. Hospitalist Physical - Physical exam Narrative exam: ON HIGH FLOW The patient appeared well nourished and normally developed. responsive and interactive but still with some confused Vital signs as documented. Head exam is unremarkable. No scleral icterus . Neck is without jugular venous distension, thyromegaly, or carotid bruits. Lungs decreased air entry on both lungs Cardiac exam reveals regular rate and Rhythm. Abdominal exam reveals normal bowel sounds, nontender, no organomegaly. Extremities are nonedematous and both femoral and pedal pulses are normal. MEDICAID SERVICE COORDINATOR: Patient was on restraints. Patient is pleasant and communicative today, but still confused. - Constitutional Vitals: Temp Pulse Resp BP Pulse Ox 98.2 F 123 H 24 168/76 92 02/09/21 08:00 02/09/21 10:00 02/09/21 10:00 02/09/21 10:00 02/09/21 10:00 General appearance: Present: no acute distress, well-nourished HEART Score - HEART Score Troponin: Troponin T < 0.010 ng/mL (0.00-0.029) 01/17/21 16:41 Results - Labs CBC & Chem 7: 02/08/21 04:46 02/09/21 04:24 Labs: Laboratory Last Values WBC 4.2 K/mm3 (4.5-11.0) L 02/08/21 04:46 RBC 4.07 M/mm3 (3.65-5.03) 02/08/21 04:46 Hgb 9.7 gm/dl (10.1-14.3) L 02/08/21 04:46 Hct 31.8 % (30.3-42.9) 02/08/21 04:46 MCV 78 fl (79-97) L 02/08/21 04:46 MCH 24 pg (28-32) L 02/08/21 04:46 MCHC 31 % (30-34) 02/08/21 04:46 RDW 17.9 % (13.2-15.2) H 02/08/21 04:46 Plt Count 110 K/mm3 (140-440) L 02/08/21 04:46 Lymph % (Auto) 44.9 % (13.4-35.0) H 02/02/21 07:56 Cocke % (Auto) 9.2 % (0.0-7.3) H 02/02/21 07:56 Eos % (Auto) 3.6 % (0.0-4.3) 02/02/21 07:56 Baso % (Auto) 0.3 % (0.0-1.8) 02/02/21 07:56 Lymph # (Auto) 1.4 K/mm3 (1.2-5.4) 02/02/21 07:56 Cocke # (Auto) 0.3 K/mm3 (0.0-0.8) 02/02/21 07:56 Eos # (Auto) 0.1 K/mm3 (0.0-0.4) 02/02/21 07:56 Baso # (Auto) 0.0 K/mm3 (0.0-0.1) 02/02/21 07:56 Add Manual Diff Complete 01/19/21 05:11 Total Counted 100 01/19/21 05:11 Seg Neutrophils % 42.0 % (40.0-70.0) 02/02/21 07:56 Seg Neuts % (Manual) 88.0 % (40.0-70.0) H 01/19/21 05:11 Lymphocytes % (Manual) 10.0 % (13.4-35.0) L 01/19/21 05:11 Monocytes % (Manual) 2.0 % (0.0-7.3) 01/19/21 05:11 Nucleated RBC % Not Reportable 01/19/21 05:11 Seg Neutrophils # 1.3 K/mm3 (1.8-7.7) L 02/02/21 07:56 Seg Neutrophils # Man 12.5 K/mm3 (1.8-7.7) H 01/19/21 05:11 Band Neutrophils # 0.0 K/mm3 01/19/21 05:11 Lymphocytes # (Manual) 1.4 K/mm3 (1.2-5.4) 01/19/21 05:11 Abs React Lymphs (Man) 0.0 K/mm3 01/19/21 05:11 Monocytes # (Manual) 0.3 K/mm3 (0.0-0.8) 01/19/21 05:11 Eosinophils # (Manual) 0.0 K/mm3 (0.0-0.4) 01/19/21 05:11 Basophils # (Manual) 0.0 K/mm3 (0.0-0.1) 01/19/21 05:11 Metamyelocytes # 0.0 K/mm3 01/19/21 05:11 Myelocytes # 0.0 K/mm3 01/19/21 05:11 Promyelocytes # 0.0 K/mm3 01/19/21 05:11 Blast Cells # 0.0 K/mm3 01/19/21 05:11 WBC Morphology Not Reportable 01/19/21 05:11 Hypersegmented Neuts Not Reportable 01/19/21 05:11 Hyposegmented Neuts Not Reportable 01/19/21 05:11 Hypogranular Neuts Not Reportable 01/19/21 05:11 Smudge Cells Not Reportable 01/19/21 05:11 Toxic Granulation Not Reportable 01/19/21 05:11 Toxic Vacuolation Not Reportable 01/19/21 05:11 Dohle Bodies Not Reportable 01/19/21 05:11 Pelger-Huet Anomaly Not Reportable 01/19/21 05:11 Inder Rods Not Reportable 01/19/21 05:11 Platelet Estimate Consistent w auto 01/19/21 05:11 Clumped Platelets Not Reportable 01/19/21 05:11 Plt Clumps, EDTA Not Reportable 01/19/21 05:11 Large Platelets Not Reportable 01/19/21 05:11 Giant Platelets Not Reportable 01/19/21 05:11 Platelet Satelliting Not Reportable 01/19/21 05:11 Plt Morphology Comment Not Reportable 01/19/21 05:11 RBC Morphology Not Reportable 01/19/21 05:11 Dimorphic RBCs Not Reportable 01/19/21 05:11 Polychromasia Not Reportable 01/19/21 05:11 Hypochromasia 1+ 01/19/21 05:11 Poikilocytosis Not Reportable 01/19/21 05:11 Anisocytosis Not Reportable 01/19/21 05:11 Microcytosis Not Reportable 01/19/21 05:11 Macrocytosis Not Reportable 01/19/21 05:11 Spherocytes Not Reportable 01/19/21 05:11 Pappenheimer Bodies Not Reportable 01/19/21 05:11 Sickle Cells Not Reportable 01/19/21 05:11 Target Cells Not Reportable 01/19/21 05:11 Tear Drop Cells Not Reportable 01/19/21 05:11 Ovalocytes Not Reportable 01/19/21 05:11 Helmet Cells Not Reportable 01/19/21 05:11 Navarro-Kevil Bodies Not Reportable 01/19/21 05:11 [place] Rings Not Reportable 01/19/21 05:11 Havre Cells Not Reportable 01/19/21 05:11 Bite Cells Not Reportable 01/19/21 05:11 Crenated Cell Not Reportable 01/19/21 05:11 Elliptocytes Not Reportable 01/19/21 05:11 Acanthocytes (Spur) Not Reportable 01/19/21 05:11 Rouleaux Not Reportable 01/19/21 05:11 Hemoglobin C Crystals Not Reportable 01/19/21 05:11 Schistocytes Not Reportable 01/19/21 05:11 Malaria parasites Not Reportable 01/19/21 05:11 Chai Bodies Not Reportable 01/19/21 05:11 Hem Pathologist Commnt No 01/19/21 05:11 PT 13.6 Sec. (12.2-14.9) 02/04/21 14:52 INR 1.06 (0.87-1.13) 02/04/21 14:52 APTT 30.7 Sec. (24.2-36.6) 02/04/21 14:52 D-Dimer 1884.49 ng/mlDDU (0-234) H 01/28/21 08:46 ABG pH 7.418 pH Units (7.350-7.450) 02/04/21 12:45 ABG pCO2 48.7 mm Hg 02/04/21 12:45 ABG pO2 65.6 mm Hg (80.0-90.0) L 02/04/21 12:45 ABG HCO3 30.8 mmol/L (20.0-26.0) H 02/04/21 12:45 ABG O2 Saturation 94.0 % (95.0-99.0) L 02/04/21 12:45 ABG O2 Content 13.4 (0.0-44) 02/04/21 12:45 ABG Base Excess 5.5 mmol/L (-2.0-3.0) H 02/04/21 12:45 ABG Hemoglobin 10.3 gm/dl (12.0-16.0) L 02/04/21 12:45 ABG Carboxyhemoglobin 1.4 % (0.0-5.0) 02/04/21 12:45 ABG Methemoglobin 0.4 % (0.0-1.5) 02/04/21 12:45 Oxyhemoglobin 92.3 % (95.0-99.0) L 02/04/21 12:45 FiO2 40 % 02/04/21 12:45 Sodium 142 mmol/L (137-145) 02/09/21 04:24 Potassium 3.9 mmol/L (3.6-5.0) 02/09/21 04:24 Chloride 105.5 mmol/L (98-107) 02/09/21 04:24 Carbon Dioxide 29 mmol/L (22-30) 02/09/21 04:24 Anion Gap 11 mmol/L 02/09/21 04:24 BUN 11 mg/dL (7-17) 02/09/21 04:24 Creatinine 0.4 mg/dL (0.6-1.2) L 02/09/21 04:24 Estimated GFR > 60 ml/min 02/09/21 04:24 BUN/Creatinine Ratio 28 % 02/09/21 04:24 Glucose 205 mg/dL (65-100) H 02/09/21 04:24 POC Glucose 205 mg/dL (70-105) H 02/09/21 07:39 Lactic Acid 1.70 mmol/L (0.7-2.0) 01/17/21 16:41 Calcium 8.1 mg/dL (8.4-10.2) L 02/09/21 04:24 Ferritin 797.7 ng/mL (10.0-200.0) H 01/28/21 08:46 Total Bilirubin 0.30 mg/dL (0.1-1.2) 01/21/21 11:29 AST 34 units/L (5-40) 01/21/21 11:29 ALT 38 units/L (7-56) 01/21/21 11:29 Alkaline Phosphatase 117 units/L (35-129) 01/21/21 11:29 Ammonia 43.0 umol/L (25-60) 02/04/21 14:52 Lactate Dehydrogenase 556 units/L (91-180) H 01/28/21 08:46 Troponin T < 0.010 ng/mL (0.00-0.029) 01/17/21 16:41 C-Reactive Protein 0.20 mg/dL (0.00-1.30) 01/28/21 08:46 NT-Pro-B Natriuret Pep 40.88 pg/mL (0-900) 01/17/21 16:41 Total Protein 7.3 g/dL (6.3-8.2) 01/21/21 11:29 Albumin 3.4 g/dL (3.9-5) L 01/21/21 11:29 Albumin/Globulin Ratio 0.9 % 01/21/21 11:29 Procalcitonin 0.39 ng/mL (<0.15) 01/17/21 17:46 Coronavirus (PCR) Positive (Negative) A 01/17/21 09:25 Estrada/IV: Voiding Method Incontinent Active Medications - Current Medications Current Medications: Generic Name Dose Route Start Last Admin Trade Name Freq PRN Reason Stop Dose Admin Acetaminophen 650 mg 01/18/21 00:36 01/22/21 23:46 Acetaminophen 325 Mg Tab PO 650 mg Q4H PRN Administration Pain MILD(1-3)/Fever >100.5/PAN Albuterol/Ipratropium 1 ampul 02/01/21 14:00 02/09/21 09:30 Ipratropium/Albuterol Sulfate 3 Ml Ampul.Neb IH 1 ampul TIDRT PJ Administration Apixaban 2.5 mg 02/04/21 22:00 02/09/21 09:28 Apixaban 2.5 Mg Tab PO 2.5 mg Q12HR PJ Administration Protocol Aripiprazole 15 mg 01/31/21 13:00 02/09/21 09:28 Aripiprazole 15 Mg Tab PO 15 mg QDAY PJ Administration Ascorbic Acid 1,000 mg 02/04/21 10:00 02/09/21 09:28 Ascorbic Acid 500 Mg Tab PO 1,000 mg BID PJ Administration Cholecalciferol 5,000 unit 02/04/21 10:00 02/09/21 09:28 Cholecalciferol (Vit D3) 5,000 Unit Tab PO 5,000 unit DAILY PJ Administration Divalproex Sodium 500 mg 01/31/21 12:00 02/09/21 09:31 Divalproex Er 500 Mg Tab PO 500 mg QDAY PJ Administration Famotidine 20 mg 01/18/21 10:00 02/09/21 09:28 Famotidine 20 Mg Tab PO 20 mg BID PJ Administration Hydralazine HCl 10 mg 01/18/21 00:38 01/24/21 23:12 Hydralazine 20 Mg/1 Ml Inj IV 10 mg Q6H PRN Administration htn Hydromorphone HCl 0.5 mg 01/20/21 11:00 Hydromorphone 1 Mg/1 Ml Inj IV Q6H PRN Pain , Severe (7-10) Hydrophilic Ointment 1 applic 02/03/21 12:00 Petrolatum,White 30 Gm Oint TP PRN PRN Skin Irritation Insulin Glargine 20 units 01/20/21 22:00 02/08/21 22:26 Insulin Glargine 100 Units/Ml SUB-Q 20 units QHS PJ Administration Insulin Human Lispro 0 unit 02/01/21 11:30 02/09/21 09:29 Insulin Lispro 100 Unit/Ml SUB-Q 4 unit ACHS PJ Administration Protocol Metoprolol Tartrate 12.5 mg 02/01/21 12:00 02/09/21 09:28 Metoprolol Tartrate 25 Mg Tab PO 12.5 mg BID PJ Administration Mirtazapine 7.5 mg 01/21/21 22:00 02/08/21 22:27 Mirtazapine 15 Mg Tab PO 7.5 mg QHS PJ Administration Ondansetron HCl 4 mg 01/18/21 00:36 Ondansetron 4 Mg/2 Ml Inj IV Q8H PRN Nausea And Vomiting Oxymetazoline HCl 2 spray 02/03/21 12:00 02/03/21 13:17 Oxymetazoline 0.05% Nasal [place] NS 2 spray Q12H PRN Administration Congestion Paliperidone 6 mg 01/31/21 13:00 02/09/21 09:28 Paliperidone Er 3 Mg Tab PO 6 mg QDAY PJ Administration Sodium Chloride 10 ml 01/18/21 10:00 02/09/21 09:30 Sodium Chloride 0.9% 10 Ml Flush Syringe IV 10 ml BID PJ Administration Sodium Chloride 10 ml 01/18/21 00:36 Sodium Chloride 0.9% 10 Ml Flush Syringe IV PRN PRN LINE FLUSH Zinc Sulfate 220 mg 02/04/21 10:00 02/09/21 09:28 Zinc Sulfate 220 Mg Cap PO 220 mg QDAY PJ Administration Nutrition/Malnutrition Assess - Dietary Evaluation Nutrition/Malnutrition Findings: Nutrition Notes Start: 01/24/21 10:40 Freq: Status: Active Protocol: Document 02/07/21 12:55 AL (Rec: 02/07/21 12:57 AL [id number]) Co-Sign 02/07/21 12:55 CW Nutrition Notes Need for Assessment generated from: innovation analyst Initial or Follow up Reassessment Current Diagnosis Respiratory Failure Other Pertinent Diagnosis pneu, COVID-19(+), AMS Current Diet Cardiac diet with Consistent CHO modifications Labs/Tests BG 267 Pertinent Medications Lasix Height 5 ft 4 in Weight 93.2 kg [place] Body Weight (kg) 54.54 BMI 35.2 Weight Status Obese Subjective/Other Information MD order for TF. Pt not receiving TF and ate breakfast at 100% per RN. Pt consumes 50% ONS. RN screen for skin risk. Milo score 16. Percent of energy/protein needs met: 67%/64% (only breakfast) Burn Absent Trauma Absent GI Symptoms None Current % PO Fair (50-74%) Minimum of two criteria No Energy Intake (non-severe) <75% Estimated Energy Requirement >7 days #1 Nutrition Diagnosis Inadequate oral intake Etiology PO intakes vary As Evidenced by Signs and Symptoms Per RN, pt has AMS and eats occasionally Is patient on ventilator? No Is Patient Ambulatory and/or Out of Bed No REE-([facility]-confined to bed) 1812.660 Kcal/Kg value to use for calculation 15 Approximate Energy Requirements Using 1398 kcal/Kg Calculation Used for Recommendations Kcal/kg Additional Notes PRO needs: 59-74g (0.8-1g/kg AdBW 74 kg) Fluid needs: 1 mL/kcal or per MD Nutrition Intervention Change Diet Order: Continue current Add Supplement/Snack (indicate name/kcal Glucerna BID /protein ) Provides kCal: 440 Provides Protein (gm) 20 Goal #1 Meet at least 75% of energy and protein needs via PO and ONS intakes Anticipated Discharge Needs: Cardiac/ Consistent CHO Follow-Up By: 02/11/21 Additional Comments FU for stable PO intakes.
--- NOTE | 2021-02-09 12:20 | Progress Note ---
Assessment and Plan - Patient Problems (1) Acute respiratory failure due to COVID-19 Current Visit: Yes Status: Acute (2) Acute respiratory failure with hypoxia Current Visit: Yes Status: Acute (3) COVID-19 Current Visit: Yes Status: Acute (4) Hypoxia Current Visit: Yes Status: Acute (5) Pneumonia Current Visit: Yes Status: Acute (6) Respiratory failure Current Visit: Yes Status: Acute (7) Schizophrenia Current Visit: Yes Status: Acute (8) Cough with hemoptysis Current Visit: Yes Status: Acute Subjective Principal diagnosis: Covid-19 Interval history: awake. More appropriate today But refusing IV replacement Objective Vital Signs - 12hr 02/09/21 02/09/21 02/09/21 01:01 02:00 03:00 Temperature Pulse Rate 103 H 105 H 98 H Pulse Rate [ From Monitor] Pulse Rate [ Posterior Bilateral Throughout] Respiratory 23 36 H 26 H Rate Respiratory Rate [Posterior Bilateral Throughout] Blood Pressure 135/71 157/74 161/77 O2 Sat by Pulse 89 81 L 86 Oximetry 02/09/21 02/09/21 02/09/21 04:00 05:01 06:01 Temperature 98.8 F Pulse Rate 105 H 103 H 99 H Pulse Rate [ 88 From Monitor] Pulse Rate [ Posterior Bilateral Throughout] Respiratory 34 H 30 H 27 H Rate Respiratory Rate [Posterior Bilateral Throughout] Blood Pressure 160/67 211/112 211/112 O2 Sat by Pulse 82 L 84 91 Oximetry 02/09/21 02/09/21 02/09/21 06:15 07:00 08:00 Temperature 98.2 F Pulse Rate 100 H 101 H Pulse Rate [ 80 From Monitor] Pulse Rate [ Posterior Bilateral Throughout] Respiratory 24 25 H Rate Respiratory Rate [Posterior Bilateral Throughout] Blood Pressure 154/76 151/71 138/66 O2 Sat by Pulse 92 93 Oximetry 02/09/21 02/09/21 02/09/21 09:00 09:28 09:30 Temperature Pulse Rate 132 H 130 H Pulse Rate [ From Monitor] Pulse Rate [ 115 H Posterior Bilateral Throughout] Respiratory 24 Rate Respiratory 20 Rate [Posterior Bilateral Throughout] Blood Pressure 145/89 145/89 O2 Sat by Pulse 87 Oximetry 02/09/21 10:00 Temperature Pulse Rate 123 H Pulse Rate [ From Monitor] Pulse Rate [ Posterior Bilateral Throughout] Respiratory 24 Rate Respiratory Rate [Posterior Bilateral Throughout] Blood Pressure 168/76 O2 Sat by Pulse 92 Oximetry Constitutional: no acute distress, alert Eyes: non-icteric ENT: oropharynx moist Neck: supple, other (large in circumference) Effort: normal Ascultation: Bilateral: clear, diminished breath sounds Cardiovascular: other (tachy, RR; no mrg) Gastrointestinal: normoactive bowel sounds, soft, non-tender, non-distended Integumentary: normal Extremities: no cyanosis, no edema, pink and warm Neurologic: normal mental status, non-focal exam, pupils equal and round Psychiatric: mood appropriate, affect normal CBC and BMP: 02/08/21 04:46 02/09/21 04:24 ABG, PT/INR, D-dimer: ABG ABG pH 7.418 pH Units (7.350-7.450) 02/04/21 12:45 ABG pCO2 48.7 mm Hg 02/04/21 12:45 ABG pO2 65.6 mm Hg (80.0-90.0) L 02/04/21 12:45 ABG O2 Saturation 94.0 % (95.0-99.0) L 02/04/21 12:45 PT/INR, D-dimer PT 13.6 Sec. (12.2-14.9) 02/04/21 14:52 INR 1.06 (0.87-1.13) 02/04/21 14:52 D-Dimer 1884.49 ng/mlDDU (0-234) H 01/28/21 08:46 Abnormal lab findings: Abnormal Labs 01/17/21 01/17/21 01/17/21 09:25 16:41 16:41 WBC RBC 5.23 H Hgb MCV 76 L MCH 24 L RDW Plt Count Lymph % (Auto) 9.4 L [place] % (Auto) Lymph # (Auto) 0.8 L Seg Neutrophils % 85.4 H Seg Neuts % (Manual) Lymphocytes % (Manual) Seg Neutrophils # Seg Neutrophils # Man D-Dimer ABG pH ABG pO2 ABG HCO3 ABG O2 Saturation ABG Base Excess ABG Hemoglobin Oxyhemoglobin Sodium 128 L Chloride 90.8 L Carbon Dioxide BUN Creatinine Glucose 372 H POC Glucose Calcium Ferritin AST 98 H Lactate Dehydrogenase C-Reactive Protein Total Protein Albumin 3.2 L Coronavirus (PCR) Positive A 01/17/21 01/17/21 01/17/21 17:46 17:46 17:46 WBC RBC Hgb MCV MCH RDW Plt Count Lymph % (Auto) [place] % (Auto) Lymph # (Auto) Seg Neutrophils % Seg Neuts % (Manual) Lymphocytes % (Manual) Seg Neutrophils # Seg Neutrophils # Man D-Dimer 1058.54 H ABG pH ABG pO2 ABG HCO3 ABG O2 Saturation ABG Base Excess ABG Hemoglobin Oxyhemoglobin Sodium Chloride Carbon Dioxide BUN Creatinine Glucose 369 H POC Glucose Calcium Ferritin 668.4 H AST Lactate Dehydrogenase 519 H C-Reactive Protein 19.20 H Total Protein Albumin Coronavirus (PCR) 01/18/21 01/18/21 01/19/21 09:01 17:18 05:11 WBC 14.2 H RBC Hgb MCV 74 L MCH 23 L RDW Plt Count Lymph % (Auto) [place] % (Auto) Lymph # (Auto) Seg Neutrophils % Seg Neuts % (Manual) 88.0 H Lymphocytes % (Manual) 10.0 L Seg Neutrophils # Seg Neutrophils # Man 12.5 H D-Dimer ABG pH 7.461 H ABG pO2 53.1 L ABG HCO3 ABG O2 Saturation 89.4 L ABG Base Excess ABG Hemoglobin Oxyhemoglobin 88.0 L Sodium 132 L Chloride 93.6 L Carbon Dioxide BUN 18 H Creatinine Glucose 367 H POC Glucose Calcium 7.8 L Ferritin AST Lactate Dehydrogenase C-Reactive Protein Total Protein Albumin Coronavirus (PCR) 01/19/21 01/19/21 01/19/21 05:11 11:06 14:43 WBC RBC Hgb MCV MCH RDW Plt Count Lymph % (Auto) [place] % (Auto) Lymph # (Auto) Seg Neutrophils % Seg Neuts % (Manual) Lymphocytes % (Manual) Seg Neutrophils # Seg Neutrophils # Man D-Dimer ABG pH ABG pO2 ABG HCO3 ABG O2 Saturation ABG Base Excess ABG Hemoglobin Oxyhemoglobin Sodium Chloride Carbon Dioxide BUN 18 H Creatinine Glucose 304 H 379 H POC Glucose 382 H Calcium 8.3 L Ferritin AST 92 H 96 H Lactate Dehydrogenase C-Reactive Protein Total Protein Albumin 3.0 L 3.0 L Coronavirus (PCR) 01/19/21 01/19/21 01/20/21 16:18 22:18 07:31 WBC RBC Hgb MCV MCH RDW Plt Count Lymph % (Auto) [place] % (Auto) Lymph # (Auto) Seg Neutrophils % Seg Neuts % (Manual) Lymphocytes % (Manual) Seg Neutrophils # Seg Neutrophils # Man D-Dimer ABG pH ABG pO2 ABG HCO3 ABG O2 Saturation ABG Base Excess ABG Hemoglobin Oxyhemoglobin Sodium Chloride Carbon Dioxide BUN Creatinine Glucose POC Glucose 374 H 341 H 344 H Calcium Ferritin AST Lactate Dehydrogenase C-Reactive Protein Total Protein Albumin Coronavirus (PCR) 01/20/21 01/20/21 01/20/21 07:33 12:14 13:54 WBC RBC Hgb MCV MCH RDW Plt Count Lymph % (Auto) [place] % (Auto) Lymph # (Auto) Seg Neutrophils % Seg Neuts % (Manual) Lymphocytes % (Manual) Seg Neutrophils # Seg Neutrophils # Man D-Dimer ABG pH ABG pO2 ABG HCO3 ABG O2 Saturation ABG Base Excess ABG Hemoglobin Oxyhemoglobin Sodium Chloride Carbon Dioxide BUN 32 H 31 H Creatinine Glucose 343 H 396 H POC Glucose 365 H Calcium Ferritin AST 57 H 54 H Lactate Dehydrogenase C-Reactive Protein Total Protein 8.3 H Albumin 2.7 L 3.1 L Coronavirus (PCR) 01/20/21 01/20/21 01/21/21 18:28 21:25 04:45 WBC RBC Hgb MCV MCH RDW Plt Count Lymph % (Auto) [place] % (Auto) Lymph # (Auto) Seg Neutrophils % Seg Neuts % (Manual) Lymphocytes % (Manual) Seg Neutrophils # Seg Neutrophils # Man D-Dimer ABG pH ABG pO2 ABG HCO3 ABG O2 Saturation ABG Base Excess ABG Hemoglobin Oxyhemoglobin Sodium Chloride Carbon Dioxide 31 H BUN 41 H Creatinine Glucose 377 H POC Glucose 403 H 340 H Calcium Ferritin AST Lactate Dehydrogenase C-Reactive Protein Total Protein 8.3 H Albumin 3.0 L Coronavirus (PCR) 01/21/21 01/21/21 01/21/21 04:45 04:45 04:45 WBC RBC Hgb MCV MCH RDW Plt Count Lymph % (Auto) [place] % (Auto) Lymph # (Auto) Seg Neutrophils % Seg Neuts % (Manual) Lymphocytes % (Manual) Seg Neutrophils # Seg Neutrophils # Man D-Dimer > 24488 H ABG pH ABG pO2 ABG HCO3 ABG O2 Saturation ABG Base Excess ABG Hemoglobin Oxyhemoglobin Sodium Chloride Carbon Dioxide BUN Creatinine Glucose POC Glucose Calcium Ferritin 1688.0 H AST Lactate Dehydrogenase 649 H C-Reactive Protein 17.00 H Total Protein Albumin Coronavirus (PCR) 01/21/21 01/21/21 01/21/21 09:45 11:29 12:09 WBC RBC Hgb MCV MCH RDW Plt Count Lymph % (Auto) [place] % (Auto) Lymph # (Auto) Seg Neutrophils % Seg Neuts % (Manual) Lymphocytes % (Manual) Seg Neutrophils # Seg Neutrophils # Man D-Dimer ABG pH ABG pO2 ABG HCO3 ABG O2 Saturation ABG Base Excess ABG Hemoglobin Oxyhemoglobin Sodium 151 H Chloride Carbon Dioxide BUN 40 H Creatinine Glucose 412 H POC Glucose 401 H 372 H Calcium Ferritin AST Lactate Dehydrogenase C-Reactive Protein Total Protein Albumin 3.4 L Coronavirus (PCR) 01/21/21 01/21/21 01/22/21 18:26 21:09 02:00 WBC RBC Hgb MCV MCH RDW Plt Count Lymph % (Auto) [place] % (Auto) Lymph # (Auto) Seg Neutrophils % Seg Neuts % (Manual) Lymphocytes % (Manual) Seg Neutrophils # Seg Neutrophils # Man D-Dimer ABG pH ABG pO2 ABG HCO3 ABG O2 Saturation ABG Base Excess ABG Hemoglobin Oxyhemoglobin Sodium Chloride Carbon Dioxide BUN Creatinine Glucose POC Glucose 376 H 322 H 231 H Calcium Ferritin AST Lactate Dehydrogenase C-Reactive Protein Total Protein Albumin Coronavirus (PCR) 01/22/21 01/22/21 01/22/21 05:24 08:25 08:25 WBC RBC 5.44 H Hgb MCV 75 L MCH 23 L RDW 15.5 H Plt Count Lymph % (Auto) [place] % (Auto) Lymph # (Auto) Seg Neutrophils % Seg Neuts % (Manual) Lymphocytes % (Manual) Seg Neutrophils # Seg Neutrophils # Man D-Dimer ABG pH ABG pO2 ABG HCO3 ABG O2 Saturation ABG Base Excess ABG Hemoglobin Oxyhemoglobin Sodium 155 H Chloride 112.4 H Carbon Dioxide BUN 33 H Creatinine Glucose 274 H POC Glucose 275 H Calcium Ferritin AST Lactate Dehydrogenase C-Reactive Protein Total Protein Albumin Coronavirus (PCR) 01/22/21 01/22/21 01/22/21 11:53 16:03 21:41 WBC RBC Hgb MCV MCH RDW Plt Count Lymph % (Auto) [place] % (Auto) Lymph # (Auto) Seg Neutrophils % Seg Neuts % (Manual) Lymphocytes % (Manual) Seg Neutrophils # Seg Neutrophils # Man D-Dimer ABG pH ABG pO2 ABG HCO3 ABG O2 Saturation ABG Base Excess ABG Hemoglobin Oxyhemoglobin Sodium Chloride Carbon Dioxide BUN Creatinine Glucose POC Glucose 265 H 293 H 279 H Calcium Ferritin AST Lactate Dehydrogenase C-Reactive Protein Total Protein Albumin Coronavirus (PCR) 01/23/21 01/23/21 01/23/21 02:03 05:46 05:59 WBC RBC Hgb MCV MCH RDW Plt Count Lymph % (Auto) [place] % (Auto) Lymph # (Auto) Seg Neutrophils % Seg Neuts % (Manual) Lymphocytes % (Manual) Seg Neutrophils # Seg Neutrophils # Man D-Dimer ABG pH ABG pO2 ABG HCO3 ABG O2 Saturation ABG Base Excess ABG Hemoglobin Oxyhemoglobin Sodium Chloride Carbon Dioxide BUN Creatinine Glucose POC Glucose 268 H 303 H Calcium Ferritin 1116.0 H AST Lactate Dehydrogenase C-Reactive Protein Total Protein Albumin Coronavirus (PCR) 01/23/21 01/23/21 01/23/21 05:59 07:42 09:11 WBC RBC Hgb MCV MCH RDW Plt Count Lymph % (Auto) [place] % (Auto) Lymph # (Auto) Seg Neutrophils % Seg Neuts % (Manual) Lymphocytes % (Manual) Seg Neutrophils # Seg Neutrophils # Man D-Dimer ABG pH ABG pO2 ABG HCO3 ABG O2 Saturation ABG Base Excess ABG Hemoglobin Oxyhemoglobin Sodium Chloride Carbon Dioxide BUN Creatinine Glucose POC Glucose 291 H 285 H Calcium Ferritin AST Lactate Dehydrogenase 680 H C-Reactive Protein 5.80 H Total Protein Albumin Coronavirus (PCR) 01/23/21 01/23/21 01/23/21 14:06 17:05 17:59 WBC RBC Hgb MCV MCH RDW Plt Count Lymph % (Auto) [place] % (Auto) Lymph # (Auto) Seg Neutrophils % Seg Neuts % (Manual) Lymphocytes % (Manual) Seg Neutrophils # Seg Neutrophils # Man D-Dimer ABG pH ABG pO2 ABG HCO3 ABG O2 Saturation ABG Base Excess ABG Hemoglobin Oxyhemoglobin Sodium Chloride Carbon Dioxide BUN Creatinine Glucose POC Glucose 228 H 300 H 278 H Calcium Ferritin AST Lactate Dehydrogenase C-Reactive Protein Total Protein Albumin Coronavirus (PCR) 01/23/21 01/24/21 01/24/21 21:43 02:14 05:15 WBC RBC Hgb MCV MCH RDW Plt Count Lymph % (Auto) [place] % (Auto) Lymph # (Auto) Seg Neutrophils % Seg Neuts % (Manual) Lymphocytes % (Manual) Seg Neutrophils # Seg Neutrophils # Man D-Dimer ABG pH ABG pO2 ABG HCO3 ABG O2 Saturation ABG Base Excess ABG Hemoglobin Oxyhemoglobin Sodium Chloride Carbon Dioxide BUN Creatinine Glucose POC Glucose 223 H 427 H 392 H Calcium Ferritin AST Lactate Dehydrogenase C-Reactive Protein Total Protein Albumin Coronavirus (PCR) 01/24/21 01/24/21 01/24/21 07:03 07:03 09:10 WBC RBC 5.49 H Hgb MCV 75 L MCH 23 L RDW Plt Count Lymph % (Auto) 7.0 L [place] % (Auto) Lymph # (Auto) 0.5 L Seg Neutrophils % 86.1 H Seg Neuts % (Manual) Lymphocytes % (Manual) Seg Neutrophils # Seg Neutrophils # Man D-Dimer ABG pH ABG pO2 ABG HCO3 ABG O2 Saturation ABG Base Excess ABG Hemoglobin Oxyhemoglobin Sodium 149 H Chloride 111.4 H Carbon Dioxide BUN 24 H Creatinine Glucose 339 H POC Glucose 284 H Calcium Ferritin AST Lactate Dehydrogenase C-Reactive Protein Total Protein Albumin Coronavirus (PCR) 01/24/21 01/24/21 01/24/21 13:47 18:30 21:58 WBC RBC Hgb MCV MCH RDW Plt Count Lymph % (Auto) [place] % (Auto) Lymph # (Auto) Seg Neutrophils % Seg Neuts % (Manual) Lymphocytes % (Manual) Seg Neutrophils # Seg Neutrophils # Man D-Dimer ABG pH ABG pO2 ABG HCO3 ABG O2 Saturation ABG Base Excess ABG Hemoglobin Oxyhemoglobin Sodium Chloride Carbon Dioxide BUN Creatinine Glucose POC Glucose 317 H 180 H 262 H Calcium Ferritin AST Lactate Dehydrogenase C-Reactive Protein Total Protein Albumin Coronavirus (PCR) 01/25/21 01/25/21 01/25/21 01:22 05:35 08:36 WBC RBC Hgb MCV MCH RDW Plt Count Lymph % (Auto) [place] % (Auto) Lymph # (Auto) Seg Neutrophils % Seg Neuts % (Manual) Lymphocytes % (Manual) Seg Neutrophils # Seg Neutrophils # Man D-Dimer ABG pH ABG pO2 ABG HCO3 ABG O2 Saturation ABG Base Excess ABG Hemoglobin Oxyhemoglobin Sodium Chloride Carbon Dioxide BUN Creatinine Glucose POC Glucose 280 H 243 H 216 H Calcium Ferritin AST Lactate Dehydrogenase C-Reactive Protein Total Protein Albumin Coronavirus (PCR) 01/25/21 01/25/21 01/25/21 15:14 15:14 15:14 WBC RBC Hgb MCV MCH RDW Plt Count Lymph % (Auto) [place] % (Auto) Lymph # (Auto) Seg Neutrophils % Seg Neuts % (Manual) Lymphocytes % (Manual) Seg Neutrophils # Seg Neutrophils # Man D-Dimer 6312.54 H ABG pH ABG pO2 ABG HCO3 ABG O2 Saturation ABG Base Excess ABG Hemoglobin Oxyhemoglobin Sodium 146 H Chloride 108.1 H Carbon Dioxide BUN 19 H Creatinine Glucose 287 H POC Glucose Calcium 8.3 L Ferritin 869.5 H AST Lactate Dehydrogenase 685 H C-Reactive Protein Total Protein Albumin Coronavirus (PCR) 01/25/21 01/25/21 01/26/21 16:06 21:18 01:47 WBC RBC Hgb MCV MCH RDW Plt Count Lymph % (Auto) [place] % (Auto) Lymph # (Auto) Seg Neutrophils % Seg Neuts % (Manual) Lymphocytes % (Manual) Seg Neutrophils # Seg Neutrophils # Man D-Dimer ABG pH ABG pO2 ABG HCO3 ABG O2 Saturation ABG Base Excess ABG Hemoglobin Oxyhemoglobin Sodium Chloride Carbon Dioxide BUN Creatinine Glucose POC Glucose 267 H 197 H 255 H Calcium Ferritin AST Lactate Dehydrogenase C-Reactive Protein Total Protein Albumin Coronavirus (PCR) 01/26/21 01/26/21 01/26/21 05:23 05:23 05:23 WBC RBC Hgb MCV MCH RDW Plt Count Lymph % (Auto) [place] % (Auto) Lymph # (Auto) Seg Neutrophils % Seg Neuts % (Manual) Lymphocytes % (Manual) Seg Neutrophils # Seg Neutrophils # Man D-Dimer 5809.58 H ABG pH ABG pO2 ABG HCO3 ABG O2 Saturation ABG Base Excess ABG Hemoglobin Oxyhemoglobin Sodium 149 H Chloride 109.3 H Carbon Dioxide BUN 24 H Creatinine Glucose 362 H POC Glucose Calcium Ferritin 877.1 H AST Lactate Dehydrogenase 655 H C-Reactive Protein Total Protein Albumin Coronavirus (PCR) 01/26/21 01/26/21 01/26/21 05:23 06:06 09:28 WBC RBC 5.49 H Hgb MCV 77 L MCH 23 L RDW Plt Count Lymph % (Auto) [place] % (Auto) Lymph # (Auto) 0.8 L Seg Neutrophils % 78.9 H Seg Neuts % (Manual) Lymphocytes % (Manual) Seg Neutrophils # Seg Neutrophils # Man D-Dimer ABG pH ABG pO2 ABG HCO3 ABG O2 Saturation ABG Base Excess ABG Hemoglobin Oxyhemoglobin Sodium Chloride Carbon Dioxide BUN Creatinine Glucose POC Glucose 387 H 308 H Calcium Ferritin AST Lactate Dehydrogenase C-Reactive Protein Total Protein Albumin Coronavirus (PCR) 01/26/21 01/26/21 01/27/21 15:56 21:28 02:51 WBC RBC Hgb MCV MCH RDW Plt Count Lymph % (Auto) [place] % (Auto) Lymph # (Auto) Seg Neutrophils % Seg Neuts % (Manual) Lymphocytes % (Manual) Seg Neutrophils # Seg Neutrophils # Man D-Dimer ABG pH ABG pO2 ABG HCO3 ABG O2 Saturation ABG Base Excess ABG Hemoglobin Oxyhemoglobin Sodium Chloride Carbon Dioxide BUN Creatinine Glucose POC Glucose 172 H 316 H 267 H Calcium Ferritin AST Lactate Dehydrogenase C-Reactive Protein Total Protein Albumin Coronavirus (PCR) 01/27/21 01/27/21 01/27/21 04:22 04:22 04:22 WBC RBC Hgb MCV MCH RDW Plt Count Lymph % (Auto) [place] % (Auto) Lymph # (Auto) Seg Neutrophils % Seg Neuts % (Manual) Lymphocytes % (Manual) Seg Neutrophils # Seg Neutrophils # Man D-Dimer 4046.06 H ABG pH ABG pO2 ABG HCO3 ABG O2 Saturation ABG Base Excess ABG Hemoglobin Oxyhemoglobin Sodium Chloride 107.7 H Carbon Dioxide BUN 30 H Creatinine Glucose 281 H POC Glucose Calcium Ferritin 812.2 H AST Lactate Dehydrogenase 570 H C-Reactive Protein Total Protein Albumin Coronavirus (PCR) 01/27/21 01/27/21 01/27/21 04:22 05:55 12:00 WBC RBC 5.15 H Hgb MCV 76 L MCH 23 L RDW 15.5 H Plt Count Lymph % (Auto) 12.7 L [place] % (Auto) Lymph # (Auto) 0.9 L Seg Neutrophils % 81.3 H Seg Neuts % (Manual) Lymphocytes % (Manual) Seg Neutrophils # Seg Neutrophils # Man D-Dimer ABG pH ABG pO2 ABG HCO3 ABG O2 Saturation ABG Base Excess ABG Hemoglobin Oxyhemoglobin Sodium Chloride Carbon Dioxide BUN Creatinine Glucose POC Glucose 275 H 121 H Calcium Ferritin AST Lactate Dehydrogenase C-Reactive Protein Total Protein Albumin Coronavirus (PCR) 01/27/21 01/27/21 01/28/21 17:32 21:23 02:08 WBC RBC Hgb MCV MCH RDW Plt Count Lymph % (Auto) [place] % (Auto) Lymph # (Auto) Seg Neutrophils % Seg Neuts % (Manual) Lymphocytes % (Manual) Seg Neutrophils # Seg Neutrophils # Man D-Dimer ABG pH ABG pO2 ABG HCO3 ABG O2 Saturation ABG Base Excess ABG Hemoglobin Oxyhemoglobin Sodium Chloride Carbon Dioxide BUN Creatinine Glucose POC Glucose 195 H 179 H 210 H Calcium Ferritin AST Lactate Dehydrogenase C-Reactive Protein Total Protein Albumin Coronavirus (PCR) 01/28/21 01/28/21 01/28/21 05:09 08:44 08:46 WBC RBC Hgb MCV MCH RDW Plt Count Lymph % (Auto) [place] % (Auto) Lymph # (Auto) Seg Neutrophils % Seg Neuts % (Manual) Lymphocytes % (Manual) Seg Neutrophils # Seg Neutrophils # Man D-Dimer 1884.49 H ABG pH ABG pO2 ABG HCO3 ABG O2 Saturation ABG Base Excess ABG Hemoglobin Oxyhemoglobin Sodium Chloride Carbon Dioxide BUN Creatinine Glucose POC Glucose 202 H 191 H Calcium Ferritin AST Lactate Dehydrogenase C-Reactive Protein Total Protein Albumin Coronavirus (PCR) 01/28/21 01/28/21 01/28/21 08:46 08:46 12:18 WBC RBC Hgb MCV MCH RDW Plt Count Lymph % (Auto) [place] % (Auto) Lymph # (Auto) Seg Neutrophils % Seg Neuts % (Manual) Lymphocytes % (Manual) Seg Neutrophils # Seg Neutrophils # Man D-Dimer ABG pH ABG pO2 ABG HCO3 ABG O2 Saturation ABG Base Excess ABG Hemoglobin Oxyhemoglobin Sodium Chloride Carbon Dioxide BUN Creatinine Glucose POC Glucose 221 H Calcium Ferritin 797.7 H AST Lactate Dehydrogenase 556 H C-Reactive Protein Total Protein Albumin Coronavirus (PCR) 01/28/21 01/28/21 01/29/21 18:21 21:45 01:48 WBC RBC Hgb MCV MCH RDW Plt Count Lymph % (Auto) [place] % (Auto) Lymph # (Auto) Seg Neutrophils % Seg Neuts % (Manual) Lymphocytes % (Manual) Seg Neutrophils # Seg Neutrophils # Man D-Dimer ABG pH ABG pO2 ABG HCO3 ABG O2 Saturation ABG Base Excess ABG Hemoglobin Oxyhemoglobin Sodium Chloride Carbon Dioxide BUN Creatinine Glucose POC Glucose 214 H 148 H 248 H Calcium Ferritin AST Lactate Dehydrogenase C-Reactive Protein Total Protein Albumin Coronavirus (PCR) 01/29/21 01/29/21 01/29/21 05:17 10:17 11:39 WBC RBC Hgb MCV MCH RDW Plt Count Lymph % (Auto) [place] % (Auto) Lymph # (Auto) Seg Neutrophils % Seg Neuts % (Manual) Lymphocytes % (Manual) Seg Neutrophils # Seg Neutrophils # Man D-Dimer ABG pH ABG pO2 ABG HCO3 ABG O2 Saturation ABG Base Excess ABG Hemoglobin Oxyhemoglobin Sodium Chloride Carbon Dioxide BUN Creatinine Glucose POC Glucose 256 H 193 H 177 H Calcium Ferritin AST Lactate Dehydrogenase C-Reactive Protein Total Protein Albumin Coronavirus (PCR) 01/29/21 01/29/21 01/30/21 18:06 20:24 06:07 WBC RBC Hgb MCV MCH RDW Plt Count Lymph % (Auto) [place] % (Auto) Lymph # (Auto) Seg Neutrophils % Seg Neuts % (Manual) Lymphocytes % (Manual) Seg Neutrophils # Seg Neutrophils # Man D-Dimer ABG pH ABG pO2 ABG HCO3 ABG O2 Saturation ABG Base Excess ABG Hemoglobin Oxyhemoglobin Sodium Chloride Carbon Dioxide BUN Creatinine Glucose POC Glucose 107 H 114 H 114 H Calcium Ferritin AST Lactate Dehydrogenase C-Reactive Protein Total Protein Albumin Coronavirus (PCR) 01/30/21 01/30/21 01/30/21 12:08 16:11 21:19 WBC RBC Hgb MCV MCH RDW Plt Count Lymph % (Auto) [place] % (Auto) Lymph # (Auto) Seg Neutrophils % Seg Neuts % (Manual) Lymphocytes % (Manual) Seg Neutrophils # Seg Neutrophils # Man D-Dimer ABG pH ABG pO2 ABG HCO3 ABG O2 Saturation ABG Base Excess ABG Hemoglobin Oxyhemoglobin Sodium Chloride Carbon Dioxide BUN Creatinine Glucose POC Glucose 178 H 142 H 244 H Calcium Ferritin AST Lactate Dehydrogenase C-Reactive Protein Total Protein Albumin Coronavirus (PCR) 01/31/21 01/31/21 01/31/21 05:30 06:42 07:50 WBC RBC Hgb MCV MCH RDW Plt Count Lymph % (Auto) [place] % (Auto) Lymph # (Auto) Seg Neutrophils % Seg Neuts % (Manual) Lymphocytes % (Manual) Seg Neutrophils # Seg Neutrophils # Man D-Dimer ABG pH ABG pO2 ABG HCO3 ABG O2 Saturation ABG Base Excess ABG Hemoglobin Oxyhemoglobin Sodium Chloride Carbon Dioxide BUN 20 H Creatinine Glucose 160 H POC Glucose 164 H 152 H Calcium 8.0 L Ferritin AST Lactate Dehydrogenase C-Reactive Protein Total Protein Albumin Coronavirus (PCR) 01/31/21 01/31/21 01/31/21 11:40 16:37 21:01 WBC RBC Hgb MCV MCH RDW Plt Count Lymph % (Auto) [place] % (Auto) Lymph # (Auto) Seg Neutrophils % Seg Neuts % (Manual) Lymphocytes % (Manual) Seg Neutrophils # Seg Neutrophils # Man D-Dimer ABG pH ABG pO2 ABG HCO3 ABG O2 Saturation ABG Base Excess ABG Hemoglobin Oxyhemoglobin Sodium Chloride Carbon Dioxide BUN Creatinine Glucose POC Glucose 129 H 141 H 125 H Calcium Ferritin AST Lactate Dehydrogenase C-Reactive Protein Total Protein Albumin Coronavirus (PCR) 02/01/21 02/01/21 02/01/21 06:26 11:15 16:11 WBC RBC Hgb MCV MCH RDW Plt Count Lymph % (Auto) [place] % (Auto) Lymph # (Auto) Seg Neutrophils % Seg Neuts % (Manual) Lymphocytes % (Manual) Seg Neutrophils # Seg Neutrophils # Man D-Dimer ABG pH ABG pO2 ABG HCO3 ABG O2 Saturation ABG Base Excess ABG Hemoglobin Oxyhemoglobin Sodium Chloride Carbon Dioxide BUN Creatinine Glucose POC Glucose 136 H 260 H 240 H Calcium Ferritin AST Lactate Dehydrogenase C-Reactive Protein Total Protein Albumin Coronavirus (PCR) 02/01/21 02/02/21 02/02/21 22:32 07:15 07:56 WBC 3.1 L RBC Hgb MCV 75 L MCH 23 L RDW Plt Count Lymph % (Auto) 44.9 H [place] % (Auto) 9.2 H Lymph # (Auto) Seg Neutrophils % Seg Neuts % (Manual) Lymphocytes % (Manual) Seg Neutrophils # 1.3 L Seg Neutrophils # Man D-Dimer ABG pH ABG pO2 ABG HCO3 ABG O2 Saturation ABG Base Excess ABG Hemoglobin Oxyhemoglobin Sodium Chloride Carbon Dioxide BUN Creatinine Glucose POC Glucose 298 H 164 H Calcium Ferritin AST Lactate Dehydrogenase C-Reactive Protein Total Protein Albumin Coronavirus (PCR) 02/02/21 02/02/21 02/02/21 07:56 11:35 16:07 WBC RBC Hgb MCV MCH RDW Plt Count Lymph % (Auto) [place] % (Auto) Lymph # (Auto) Seg Neutrophils % Seg Neuts % (Manual) Lymphocytes % (Manual) Seg Neutrophils # Seg Neutrophils # Man D-Dimer ABG pH ABG pO2 ABG HCO3 ABG O2 Saturation ABG Base Excess ABG Hemoglobin Oxyhemoglobin Sodium Chloride Carbon Dioxide 31 H BUN Creatinine 0.4 L Glucose 159 H POC Glucose 297 H 252 H Calcium 8.2 L Ferritin AST Lactate Dehydrogenase C-Reactive Protein Total Protein Albumin Coronavirus (PCR) 02/02/21 02/03/21 02/03/21 22:33 17:04 22:17 WBC RBC Hgb MCV MCH RDW Plt Count Lymph % (Auto) [place] % (Auto) Lymph # (Auto) Seg Neutrophils % Seg Neuts % (Manual) Lymphocytes % (Manual) Seg Neutrophils # Seg Neutrophils # Man D-Dimer ABG pH ABG pO2 ABG HCO3 ABG O2 Saturation ABG Base Excess ABG Hemoglobin Oxyhemoglobin Sodium Chloride Carbon Dioxide BUN Creatinine Glucose POC Glucose 257 H 247 H 278 H Calcium Ferritin AST Lactate Dehydrogenase C-Reactive Protein Total Protein Albumin Coronavirus (PCR) 02/04/21 02/04/21 02/04/21 05:41 07:55 11:56 WBC RBC Hgb MCV MCH RDW Plt Count Lymph % (Auto) [place] % (Auto) Lymph # (Auto) Seg Neutrophils % Seg Neuts % (Manual) Lymphocytes % (Manual) Seg Neutrophils # Seg Neutrophils # Man D-Dimer ABG pH ABG pO2 ABG HCO3 ABG O2 Saturation ABG Base Excess ABG Hemoglobin Oxyhemoglobin Sodium Chloride Carbon Dioxide 31 H BUN 19 H Creatinine 0.5 L Glucose 184 H POC Glucose 182 H 227 H Calcium Ferritin AST Lactate Dehydrogenase C-Reactive Protein Total Protein Albumin Coronavirus (PCR) 02/04/21 02/04/21 02/04/21 12:45 14:52 16:45 WBC 4.0 L RBC Hgb MCV 77 L MCH 24 L RDW 15.5 H Plt Count Lymph % (Auto) [place] % (Auto) Lymph # (Auto) Seg Neutrophils % Seg Neuts % (Manual) Lymphocytes % (Manual) Seg Neutrophils # Seg Neutrophils # Man D-Dimer ABG pH ABG pO2 65.6 L ABG HCO3 30.8 H ABG O2 Saturation 94.0 L ABG Base Excess 5.5 H ABG Hemoglobin 10.3 L Oxyhemoglobin 92.3 L Sodium Chloride Carbon Dioxide BUN Creatinine Glucose POC Glucose 194 H Calcium Ferritin AST Lactate Dehydrogenase C-Reactive Protein Total Protein Albumin Coronavirus (PCR) 02/04/21 02/05/21 02/05/21 22:00 06:55 07:49 WBC RBC Hgb 10.0 L MCV MCH RDW Plt Count Lymph % (Auto) [place] % (Auto) Lymph # (Auto) Seg Neutrophils % Seg Neuts % (Manual) Lymphocytes % (Manual) Seg Neutrophils # Seg Neutrophils # Man D-Dimer ABG pH ABG pO2 ABG HCO3 ABG O2 Saturation ABG Base Excess ABG Hemoglobin Oxyhemoglobin Sodium Chloride Carbon Dioxide BUN Creatinine Glucose POC Glucose 281 H 204 H Calcium Ferritin AST Lactate Dehydrogenase C-Reactive Protein Total Protein Albumin Coronavirus (PCR) 02/05/21 02/05/21 02/05/21 11:23 16:13 16:22 WBC RBC Hgb 10.0 L MCV MCH RDW Plt Count Lymph % (Auto) [place] % (Auto) Lymph # (Auto) Seg Neutrophils % Seg Neuts % (Manual) Lymphocytes % (Manual) Seg Neutrophils # Seg Neutrophils # Man D-Dimer ABG pH ABG pO2 ABG HCO3 ABG O2 Saturation ABG Base Excess ABG Hemoglobin Oxyhemoglobin Sodium Chloride Carbon Dioxide BUN Creatinine Glucose POC Glucose 264 H 202 H Calcium Ferritin AST Lactate Dehydrogenase C-Reactive Protein Total Protein Albumin Coronavirus (PCR) 02/05/21 02/06/21 02/06/21 21:14 04:43 04:43 WBC 4.0 L RBC Hgb 10.0 L MCV 76 L MCH 23 L RDW 15.7 H Plt Count Lymph % (Auto) [place] % (Auto) Lymph # (Auto) Seg Neutrophils % Seg Neuts % (Manual) Lymphocytes % (Manual) Seg Neutrophils # Seg Neutrophils # Man D-Dimer ABG pH ABG pO2 ABG HCO3 ABG O2 Saturation ABG Base Excess ABG Hemoglobin Oxyhemoglobin Sodium Chloride Carbon Dioxide 32 H BUN Creatinine 0.4 L Glucose 163 H POC Glucose 180 H Calcium 8.3 L Ferritin AST Lactate Dehydrogenase C-Reactive Protein Total Protein Albumin Coronavirus (PCR) 02/06/21 02/06/21 02/06/21 08:01 11:44 16:11 WBC RBC Hgb MCV MCH RDW Plt Count Lymph % (Auto) [place] % (Auto) Lymph # (Auto) Seg Neutrophils % Seg Neuts % (Manual) Lymphocytes % (Manual) Seg Neutrophils # Seg Neutrophils # Man D-Dimer ABG pH ABG pO2 ABG HCO3 ABG O2 Saturation ABG Base Excess ABG Hemoglobin Oxyhemoglobin Sodium Chloride Carbon Dioxide BUN Creatinine Glucose POC Glucose 155 H 215 H 247 H Calcium Ferritin AST Lactate Dehydrogenase C-Reactive Protein Total Protein Albumin Coronavirus (PCR) 02/06/21 02/07/21 02/07/21 23:40 08:01 11:54 WBC RBC Hgb MCV MCH RDW Plt Count Lymph % (Auto) [place] % (Auto) Lymph # (Auto) Seg Neutrophils % Seg Neuts % (Manual) Lymphocytes % (Manual) Seg Neutrophils # Seg Neutrophils # Man D-Dimer ABG pH ABG pO2 ABG HCO3 ABG O2 Saturation ABG Base Excess ABG Hemoglobin Oxyhemoglobin Sodium Chloride Carbon Dioxide BUN Creatinine Glucose POC Glucose 267 H 233 H 227 H Calcium Ferritin AST Lactate Dehydrogenase C-Reactive Protein Total Protein Albumin Coronavirus (PCR) 02/07/21 02/07/21 02/07/21 15:48 20:58 20:58 WBC RBC Hgb MCV MCH RDW Plt Count Lymph % (Auto) [place] % (Auto) Lymph # (Auto) Seg Neutrophils % Seg Neuts % (Manual) Lymphocytes % (Manual) Seg Neutrophils # Seg Neutrophils # Man D-Dimer ABG pH ABG pO2 ABG HCO3 ABG O2 Saturation ABG Base Excess ABG Hemoglobin Oxyhemoglobin Sodium Chloride Carbon Dioxide 32 H BUN Creatinine 0.5 L 0.5 L Glucose 236 H POC Glucose 257 H Calcium 8.3 L Ferritin AST Lactate Dehydrogenase C-Reactive Protein Total Protein Albumin Coronavirus (PCR) 02/07/21 02/08/21 02/08/21 22:10 04:46 04:46 WBC 4.2 L RBC Hgb 9.7 L MCV 78 L MCH 24 L RDW 17.9 H Plt Count 110 L Lymph % (Auto) [place] % (Auto) Lymph # (Auto) Seg Neutrophils % Seg Neuts % (Manual) Lymphocytes % (Manual) Seg Neutrophils # Seg Neutrophils # Man D-Dimer ABG pH ABG pO2 ABG HCO3 ABG O2 Saturation ABG Base Excess ABG Hemoglobin Oxyhemoglobin Sodium Chloride Carbon Dioxide BUN Creatinine 0.4 L Glucose 220 H POC Glucose 241 H Calcium 8.0 L Ferritin AST Lactate Dehydrogenase C-Reactive Protein Total Protein Albumin Coronavirus (PCR) 02/08/21 02/08/21 02/08/21 08:05 11:36 15:44 WBC RBC Hgb MCV MCH RDW Plt Count Lymph % (Auto) [place] % (Auto) Lymph # (Auto) Seg Neutrophils % Seg Neuts % (Manual) Lymphocytes % (Manual) Seg Neutrophils # Seg Neutrophils # Man D-Dimer ABG pH ABG pO2 ABG HCO3 ABG O2 Saturation ABG Base Excess ABG Hemoglobin Oxyhemoglobin Sodium Chloride Carbon Dioxide BUN Creatinine Glucose POC Glucose 208 H 200 H 149 H Calcium Ferritin AST Lactate Dehydrogenase C-Reactive Protein Total Protein Albumin Coronavirus (PCR) 02/08/21 02/09/21 02/09/21 21:35 04:24 07:39 WBC RBC Hgb MCV MCH RDW Plt Count Lymph % (Auto) [place] % (Auto) Lymph # (Auto) Seg Neutrophils % Seg Neuts % (Manual) Lymphocytes % (Manual) Seg Neutrophils # Seg Neutrophils # Man D-Dimer ABG pH ABG pO2 ABG HCO3 ABG O2 Saturation ABG Base Excess ABG Hemoglobin Oxyhemoglobin Sodium Chloride Carbon Dioxide BUN Creatinine 0.4 L Glucose 205 H POC Glucose 249 H 205 H Calcium 8.1 L Ferritin AST Lactate Dehydrogenase C-Reactive Protein Total Protein Albumin Coronavirus (PCR)
[2021-02-10] MEDS: APIXABAN 2.5 MG TAB PO SCH ×3 (00:37→21:03)
[2021-02-10] MEDS: INSULIN LISPRO 100 UNIT/ML SUB-Q SCH ×5 (00:38→21:50)
[2021-02-10] MEDS: INSULIN GLARGINE 100 UNITS/ML SUB-Q SCH ×2 (00:39→21:05)
[2021-02-10] MEDS: METOPROLOL TARTRATE 25 MG TAB PO SCH ×3 (00:39→21:09)
[2021-02-10] MEDS: ASCORBIC ACID 500 MG TAB PO SCH ×3 (00:40→21:10)
[2021-02-10] MEDS: FAMOTIDINE 20 MG TAB PO SCH ×3 (00:40→21:11)
[2021-02-10] MEDS: MIRTAZAPINE 15 MG TAB PO SCH ×2 (00:40→21:02)
[2021-02-10] MEDS ORDERED: LORazepam 2 MG/ML VIAL IV NR (09:19)
[2021-02-10 09:44] LABS: ABG Base Excess 1.8 mmol/L (-2.0-3.0); ABG HCO3 29.1 mmol/L (20.0-26.0); ABG Methemoglobin 0.6 % (0.0-1.5); ABG Oxygen Saturation 92.4 % (95.0-99.0); ABG PCO2 59.4 mm Hg; ABG PH 7.309 pH Units (7.350-7.450); ABG PO2 71.2 mm Hg (80.0-90.0)
[2021-02-10] MEDS: FUROSEMIDE 40 MG/4 ML INJ IV SCH (09:45)
[2021-02-10] MEDS: IPRATROPIUM/ALBUTEROL SULFATE 3 ML AMPUL.NEB IH SCH ×3 (10:19→19:17)
--- NOTE | 2021-02-10 10:22 | XRay Report ---
CHEST 1 VIEW 02/10/2021 9:14 AM INDICATION / CLINICAL INFORMATION: shortness of breath. COMPARISON: 02/05/2021 FINDINGS: SUPPORT DEVICES: None. HEART / MEDIASTINUM: Heart is enlarged LUNGS / PLEURA: Diffuse bilateral pulmonary opacities persist. No pneumothorax. ADDITIONAL FINDINGS: No significant additional findings. IMPRESSION: 1. Diffuse bilateral pulmonary opacities persist and may be slightly increased Signer Name: Hira Giordano MD Signed: 02/10/2021 10:18 AM Workstation Name: [facility] [facility]
--- NOTE | 2021-02-10 11:29 | Progress Note ---
Assessment and Plan 55 y/o female admitted with acute respiratory failure secondary to pneumonia, positive for Sars CoV2 02/10/21: Lasix today, 40 IV. Will attempt precedex to see if this will help with mental state and cooperation in care. Will also restart steroids but use solumedrol 40q8 dosing. May need to consider adding back the Haldol PRN as well . Guarded prognosis. Will attempt our best to not intubate this patient as her mortality would be extremely high if intubated given her morbid obesity. 02/02/21: Lasix again today. Patient refuses to prone. Guarded prognosis. 02/01/21: Will give another 40 of lasix today. Will speak with RT about being more aggressive with weaning of oxygen. Prone if possible. 01/31/21: Increased lasix to 40 today. Prone if possible. 01/30/21: Lasix 20mg IV today. Continue Antipsychotic therapy management. Prone as tolerated if patient willing. 01/29/21: Will give lasix again today. Will change Haldol to IM since patient is refusing PO meds. 01/28/21: Will give lasix again today. Continue all other therapies. Prone if patient will and tolerate. STeroids. Guarded prognosis. 01/20/21: Gave Haldol 5 and patient has calmed down and become more appropriate, allowing us to place bipap back on. COntinue steroids and remdesivir therapy. Doubt patient will be able to prone successfully. Will try lasix today again to see if this helps. Very very guarded prognosis. 01/19/21: Continue decadron, suggest increase given patient body habitus to BID. ID consult for Remdesivir therapy and to see if she is a candidate for Actemra. Prone as tolerated during the day and sleep prone at night. Will give lasix again today. Guarded prognosis. 1. Prone 2. Lasix 3. Agree with steroids 4. Follow up COVID testing Guarded prognosis Subjective Date of service: 02/10/21 Principal diagnosis: Covid-19 Interval history: Clinically worse today. Back on HFNC and NRB with sats in the low 90's. Required bipap last night. Still very anxious and at times noncompliant with therapy. Refusing to prone. BP very elevated and I/O not accurate. Remainder is negative. Objective Vital Signs - 12hr 02/10/21 02/10/21 02/10/21 00:00 00:01 01:00 Temperature 98.7 F Pulse Rate 114 H 115 H 120 H Pulse Rate [ From Monitor] Respiratory 29 H 28 H Rate Blood Pressure 145/82 145/82 O2 Sat by Pulse 89 93 Oximetry 02/10/21 02/10/21 02/10/21 02:00 03:00 03:12 Temperature Pulse Rate 106 H 108 H Pulse Rate [ From Monitor] Respiratory 26 H 27 H Rate Blood Pressure 152/72 152/72 O2 Sat by Pulse 88 89 89 Oximetry 02/10/21 02/10/21 02/10/21 04:00 05:00 06:00 Temperature 98.8 F Pulse Rate 108 H 105 H 109 H Pulse Rate [ From Monitor] Respiratory 28 H 31 H 33 H Rate Blood Pressure 164/86 146/80 145/77 O2 Sat by Pulse 90 86 Oximetry 02/10/21 02/10/21 02/10/21 07:00 08:00 09:00 Temperature Pulse Rate 106 H 109 H 133 H Pulse Rate [ 84 From Monitor] Respiratory 26 H 31 H 49 H Rate Blood Pressure 138/78 153/76 189/81 O2 Sat by Pulse 89 90 74 L Oximetry 02/10/21 02/10/21 10:00 10:29 Temperature Pulse Rate 132 H Pulse Rate [ From Monitor] Respiratory 44 H Rate Blood Pressure 167/90 O2 Sat by Pulse 92 91 Oximetry Constitutional: no acute distress, alert Eyes: non-icteric ENT: oropharynx moist Neck: supple, other (large in circumference) Effort: normal Ascultation: Bilateral: clear, diminished breath sounds Cardiovascular: other (tachy, RR; no mrg) Gastrointestinal: normoactive bowel sounds, soft, non-tender, non-distended Integumentary: normal Extremities: no cyanosis, no edema, pink and warm Neurologic: normal mental status, non-focal exam, pupils equal and round Psychiatric: mood appropriate, affect normal CBC and BMP: 02/08/21 04:46 02/09/21 04:24 ABG, PT/INR, D-dimer: ABG ABG pH 7.309 pH Units (7.350-7.450) L 02/10/21 09:30 ABG pCO2 59.4 mm Hg 02/10/21 09:30 ABG pO2 71.2 mm Hg (80.0-90.0) L 02/10/21 09:30 ABG O2 Saturation 92.4 % (95.0-99.0) L 02/10/21 09:30 PT/INR, D-dimer PT 13.6 Sec. (12.2-14.9) 02/04/21 14:52 INR 1.06 (0.87-1.13) 02/04/21 14:52 D-Dimer 1884.49 ng/mlDDU (0-234) H 01/28/21 08:46 Abnormal lab findings: Abnormal Labs 01/17/21 01/17/21 01/17/21 09:25 16:41 16:41 WBC RBC 5.23 H Hgb MCV 76 L MCH 24 L RDW Plt Count Lymph % (Auto) 9.4 L Campbell % (Auto) Lymph # (Auto) 0.8 L Seg Neutrophils % 85.4 H Seg Neuts % (Manual) Lymphocytes % (Manual) Seg Neutrophils # Seg Neutrophils # Man D-Dimer ABG pH ABG pO2 ABG HCO3 ABG O2 Saturation ABG Base Excess ABG Hemoglobin Oxyhemoglobin Sodium 128 L Chloride 90.8 L Carbon Dioxide BUN Creatinine Glucose 372 H POC Glucose Calcium Ferritin AST 98 H Lactate Dehydrogenase C-Reactive Protein Total Protein Albumin 3.2 L Coronavirus (PCR) Positive A 01/17/21 01/17/21 01/17/21 17:46 17:46 17:46 WBC RBC Hgb MCV MCH RDW Plt Count Lymph % (Auto) [place] % (Auto) Lymph # (Auto) Seg Neutrophils % Seg Neuts % (Manual) Lymphocytes % (Manual) Seg Neutrophils # Seg Neutrophils # Man D-Dimer 1058.54 H ABG pH ABG pO2 ABG HCO3 ABG O2 Saturation ABG Base Excess ABG Hemoglobin Oxyhemoglobin Sodium Chloride Carbon Dioxide BUN Creatinine Glucose 369 H POC Glucose Calcium Ferritin 668.4 H AST Lactate Dehydrogenase 519 H C-Reactive Protein 19.20 H Total Protein Albumin Coronavirus (PCR) 01/18/21 01/18/21 01/19/21 09:01 17:18 05:11 WBC 14.2 H RBC Hgb MCV 74 L MCH 23 L RDW Plt Count Lymph % (Auto) [place] % (Auto) Lymph # (Auto) Seg Neutrophils % Seg Neuts % (Manual) 88.0 H Lymphocytes % (Manual) 10.0 L Seg Neutrophils # Seg Neutrophils # Man 12.5 H D-Dimer ABG pH 7.461 H ABG pO2 53.1 L ABG HCO3 ABG O2 Saturation 89.4 L ABG Base Excess ABG Hemoglobin Oxyhemoglobin 88.0 L Sodium 132 L Chloride 93.6 L Carbon Dioxide BUN 18 H Creatinine Glucose 367 H POC Glucose Calcium 7.8 L Ferritin AST Lactate Dehydrogenase C-Reactive Protein Total Protein Albumin Coronavirus (PCR) 01/19/21 01/19/21 01/19/21 05:11 11:06 14:43 WBC RBC Hgb MCV MCH RDW Plt Count Lymph % (Auto) [place] % (Auto) Lymph # (Auto) Seg Neutrophils % Seg Neuts % (Manual) Lymphocytes % (Manual) Seg Neutrophils # Seg Neutrophils # Man D-Dimer ABG pH ABG pO2 ABG HCO3 ABG O2 Saturation ABG Base Excess ABG Hemoglobin Oxyhemoglobin Sodium Chloride Carbon Dioxide BUN 18 H Creatinine Glucose 304 H 379 H POC Glucose 382 H Calcium 8.3 L Ferritin AST 92 H 96 H Lactate Dehydrogenase C-Reactive Protein Total Protein Albumin 3.0 L 3.0 L Coronavirus (PCR) 01/19/21 01/19/21 01/20/21 16:18 22:18 07:31 WBC RBC Hgb MCV MCH RDW Plt Count Lymph % (Auto) [place] % (Auto) Lymph # (Auto) Seg Neutrophils % Seg Neuts % (Manual) Lymphocytes % (Manual) Seg Neutrophils # Seg Neutrophils # Man D-Dimer ABG pH ABG pO2 ABG HCO3 ABG O2 Saturation ABG Base Excess ABG Hemoglobin Oxyhemoglobin Sodium Chloride Carbon Dioxide BUN Creatinine Glucose POC Glucose 374 H 341 H 344 H Calcium Ferritin AST Lactate Dehydrogenase C-Reactive Protein Total Protein Albumin Coronavirus (PCR) 01/20/21 01/20/21 01/20/21 07:33 12:14 13:54 WBC RBC Hgb MCV MCH RDW Plt Count Lymph % (Auto) [place] % (Auto) Lymph # (Auto) Seg Neutrophils % Seg Neuts % (Manual) Lymphocytes % (Manual) Seg Neutrophils # Seg Neutrophils # Man D-Dimer ABG pH ABG pO2 ABG HCO3 ABG O2 Saturation ABG Base Excess ABG Hemoglobin Oxyhemoglobin Sodium Chloride Carbon Dioxide BUN 32 H 31 H Creatinine Glucose 343 H 396 H POC Glucose 365 H Calcium Ferritin AST 57 H 54 H Lactate Dehydrogenase C-Reactive Protein Total Protein 8.3 H Albumin 2.7 L 3.1 L Coronavirus (PCR) 01/20/21 01/20/21 01/21/21 18:28 21:25 04:45 WBC RBC Hgb MCV MCH RDW Plt Count Lymph % (Auto) [place] % (Auto) Lymph # (Auto) Seg Neutrophils % Seg Neuts % (Manual) Lymphocytes % (Manual) Seg Neutrophils # Seg Neutrophils # Man D-Dimer ABG pH ABG pO2 ABG HCO3 ABG O2 Saturation ABG Base Excess ABG Hemoglobin Oxyhemoglobin Sodium Chloride Carbon Dioxide 31 H BUN 41 H Creatinine Glucose 377 H POC Glucose 403 H 340 H Calcium Ferritin AST Lactate Dehydrogenase C-Reactive Protein Total Protein 8.3 H Albumin 3.0 L Coronavirus (PCR) 01/21/21 01/21/21 01/21/21 04:45 04:45 04:45 WBC RBC Hgb MCV MCH RDW Plt Count Lymph % (Auto) [place] % (Auto) Lymph # (Auto) Seg Neutrophils % Seg Neuts % (Manual) Lymphocytes % (Manual) Seg Neutrophils # Seg Neutrophils # Man D-Dimer > 09037 H ABG pH ABG pO2 ABG HCO3 ABG O2 Saturation ABG Base Excess ABG Hemoglobin Oxyhemoglobin Sodium Chloride Carbon Dioxide BUN Creatinine Glucose POC Glucose Calcium Ferritin 1688.0 H AST Lactate Dehydrogenase 649 H C-Reactive Protein 17.00 H Total Protein Albumin Coronavirus (PCR) 01/21/21 01/21/21 01/21/21 09:45 11:29 12:09 WBC RBC Hgb MCV MCH RDW Plt Count Lymph % (Auto) [place] % (Auto) Lymph # (Auto) Seg Neutrophils % Seg Neuts % (Manual) Lymphocytes % (Manual) Seg Neutrophils # Seg Neutrophils # Man D-Dimer ABG pH ABG pO2 ABG HCO3 ABG O2 Saturation ABG Base Excess ABG Hemoglobin Oxyhemoglobin Sodium 151 H Chloride Carbon Dioxide BUN 40 H Creatinine Glucose 412 H POC Glucose 401 H 372 H Calcium Ferritin AST Lactate Dehydrogenase C-Reactive Protein Total Protein Albumin 3.4 L Coronavirus (PCR) 01/21/21 01/21/21 01/22/21 18:26 21:09 02:00 WBC RBC Hgb MCV MCH RDW Plt Count Lymph % (Auto) [place] % (Auto) Lymph # (Auto) Seg Neutrophils % Seg Neuts % (Manual) Lymphocytes % (Manual) Seg Neutrophils # Seg Neutrophils # Man D-Dimer ABG pH ABG pO2 ABG HCO3 ABG O2 Saturation ABG Base Excess ABG Hemoglobin Oxyhemoglobin Sodium Chloride Carbon Dioxide BUN Creatinine Glucose POC Glucose 376 H 322 H 231 H Calcium Ferritin AST Lactate Dehydrogenase C-Reactive Protein Total Protein Albumin Coronavirus (PCR) 01/22/21 01/22/21 01/22/21 05:24 08:25 08:25 WBC RBC 5.44 H Hgb MCV 75 L MCH 23 L RDW 15.5 H Plt Count Lymph % (Auto) [place] % (Auto) Lymph # (Auto) Seg Neutrophils % Seg Neuts % (Manual) Lymphocytes % (Manual) Seg Neutrophils # Seg Neutrophils # Man D-Dimer ABG pH ABG pO2 ABG HCO3 ABG O2 Saturation ABG Base Excess ABG Hemoglobin Oxyhemoglobin Sodium 155 H Chloride 112.4 H Carbon Dioxide BUN 33 H Creatinine Glucose 274 H POC Glucose 275 H Calcium Ferritin AST Lactate Dehydrogenase C-Reactive Protein Total Protein Albumin Coronavirus (PCR) 01/22/21 01/22/21 01/22/21 11:53 16:03 21:41 WBC RBC Hgb MCV MCH RDW Plt Count Lymph % (Auto) [place] % (Auto) Lymph # (Auto) Seg Neutrophils % Seg Neuts % (Manual) Lymphocytes % (Manual) Seg Neutrophils # Seg Neutrophils # Man D-Dimer ABG pH ABG pO2 ABG HCO3 ABG O2 Saturation ABG Base Excess ABG Hemoglobin Oxyhemoglobin Sodium Chloride Carbon Dioxide BUN Creatinine Glucose POC Glucose 265 H 293 H 279 H Calcium Ferritin AST Lactate Dehydrogenase C-Reactive Protein Total Protein Albumin Coronavirus (PCR) 01/23/21 01/23/21 01/23/21 02:03 05:46 05:59 WBC RBC Hgb MCV MCH RDW Plt Count Lymph % (Auto) [place] % (Auto) Lymph # (Auto) Seg Neutrophils % Seg Neuts % (Manual) Lymphocytes % (Manual) Seg Neutrophils # Seg Neutrophils # Man D-Dimer ABG pH ABG pO2 ABG HCO3 ABG O2 Saturation ABG Base Excess ABG Hemoglobin Oxyhemoglobin Sodium Chloride Carbon Dioxide BUN Creatinine Glucose POC Glucose 268 H 303 H Calcium Ferritin 1116.0 H AST Lactate Dehydrogenase C-Reactive Protein Total Protein Albumin Coronavirus (PCR) 01/23/21 01/23/21 01/23/21 05:59 07:42 09:11 WBC RBC Hgb MCV MCH RDW Plt Count Lymph % (Auto) [place] % (Auto) Lymph # (Auto) Seg Neutrophils % Seg Neuts % (Manual) Lymphocytes % (Manual) Seg Neutrophils # Seg Neutrophils # Man D-Dimer ABG pH ABG pO2 ABG HCO3 ABG O2 Saturation ABG Base Excess ABG Hemoglobin Oxyhemoglobin Sodium Chloride Carbon Dioxide BUN Creatinine Glucose POC Glucose 291 H 285 H Calcium Ferritin AST Lactate Dehydrogenase 680 H C-Reactive Protein 5.80 H Total Protein Albumin Coronavirus (PCR) 01/23/21 01/23/21 01/23/21 14:06 17:05 17:59 WBC RBC Hgb MCV MCH RDW Plt Count Lymph % (Auto) [place] % (Auto) Lymph # (Auto) Seg Neutrophils % Seg Neuts % (Manual) Lymphocytes % (Manual) Seg Neutrophils # Seg Neutrophils # Man D-Dimer ABG pH ABG pO2 ABG HCO3 ABG O2 Saturation ABG Base Excess ABG Hemoglobin Oxyhemoglobin Sodium Chloride Carbon Dioxide BUN Creatinine Glucose POC Glucose 228 H 300 H 278 H Calcium Ferritin AST Lactate Dehydrogenase C-Reactive Protein Total Protein Albumin Coronavirus (PCR) 01/23/21 01/24/21 01/24/21 21:43 02:14 05:15 WBC RBC Hgb MCV MCH RDW Plt Count Lymph % (Auto) [place] % (Auto) Lymph # (Auto) Seg Neutrophils % Seg Neuts % (Manual) Lymphocytes % (Manual) Seg Neutrophils # Seg Neutrophils # Man D-Dimer ABG pH ABG pO2 ABG HCO3 ABG O2 Saturation ABG Base Excess ABG Hemoglobin Oxyhemoglobin Sodium Chloride Carbon Dioxide BUN Creatinine Glucose POC Glucose 223 H 427 H 392 H Calcium Ferritin AST Lactate Dehydrogenase C-Reactive Protein Total Protein Albumin Coronavirus (PCR) 01/24/21 01/24/21 01/24/21 07:03 07:03 09:10 WBC RBC 5.49 H Hgb MCV 75 L MCH 23 L RDW Plt Count Lymph % (Auto) 7.0 L [place] % (Auto) Lymph # (Auto) 0.5 L Seg Neutrophils % 86.1 H Seg Neuts % (Manual) Lymphocytes % (Manual) Seg Neutrophils # Seg Neutrophils # Man D-Dimer ABG pH ABG pO2 ABG HCO3 ABG O2 Saturation ABG Base Excess ABG Hemoglobin Oxyhemoglobin Sodium 149 H Chloride 111.4 H Carbon Dioxide BUN 24 H Creatinine Glucose 339 H POC Glucose 284 H Calcium Ferritin AST Lactate Dehydrogenase C-Reactive Protein Total Protein Albumin Coronavirus (PCR) 01/24/21 01/24/21 01/24/21 13:47 18:30 21:58 WBC RBC Hgb MCV MCH RDW Plt Count Lymph % (Auto) [place] % (Auto) Lymph # (Auto) Seg Neutrophils % Seg Neuts % (Manual) Lymphocytes % (Manual) Seg Neutrophils # Seg Neutrophils # Man D-Dimer ABG pH ABG pO2 ABG HCO3 ABG O2 Saturation ABG Base Excess ABG Hemoglobin Oxyhemoglobin Sodium Chloride Carbon Dioxide BUN Creatinine Glucose POC Glucose 317 H 180 H 262 H Calcium Ferritin AST Lactate Dehydrogenase C-Reactive Protein Total Protein Albumin Coronavirus (PCR) 01/25/21 01/25/21 01/25/21 01:22 05:35 08:36 WBC RBC Hgb MCV MCH RDW Plt Count Lymph % (Auto) [place] % (Auto) Lymph # (Auto) Seg Neutrophils % Seg Neuts % (Manual) Lymphocytes % (Manual) Seg Neutrophils # Seg Neutrophils # Man D-Dimer ABG pH ABG pO2 ABG HCO3 ABG O2 Saturation ABG Base Excess ABG Hemoglobin Oxyhemoglobin Sodium Chloride Carbon Dioxide BUN Creatinine Glucose POC Glucose 280 H 243 H 216 H Calcium Ferritin AST Lactate Dehydrogenase C-Reactive Protein Total Protein Albumin Coronavirus (PCR) 01/25/21 01/25/21 01/25/21 15:14 15:14 15:14 WBC RBC Hgb MCV MCH RDW Plt Count Lymph % (Auto) [place] % (Auto) Lymph # (Auto) Seg Neutrophils % Seg Neuts % (Manual) Lymphocytes % (Manual) Seg Neutrophils # Seg Neutrophils # Man D-Dimer 6312.54 H ABG pH ABG pO2 ABG HCO3 ABG O2 Saturation ABG Base Excess ABG Hemoglobin Oxyhemoglobin Sodium 146 H Chloride 108.1 H Carbon Dioxide BUN 19 H Creatinine Glucose 287 H POC Glucose Calcium 8.3 L Ferritin 869.5 H AST Lactate Dehydrogenase 685 H C-Reactive Protein Total Protein Albumin Coronavirus (PCR) 01/25/21 01/25/21 01/26/21 16:06 21:18 01:47 WBC RBC Hgb MCV MCH RDW Plt Count Lymph % (Auto) [place] % (Auto) Lymph # (Auto) Seg Neutrophils % Seg Neuts % (Manual) Lymphocytes % (Manual) Seg Neutrophils # Seg Neutrophils # Man D-Dimer ABG pH ABG pO2 ABG HCO3 ABG O2 Saturation ABG Base Excess ABG Hemoglobin Oxyhemoglobin Sodium Chloride Carbon Dioxide BUN Creatinine Glucose POC Glucose 267 H 197 H 255 H Calcium Ferritin AST Lactate Dehydrogenase C-Reactive Protein Total Protein Albumin Coronavirus (PCR) 01/26/21 01/26/21 01/26/21 05:23 05:23 05:23 WBC RBC Hgb MCV MCH RDW Plt Count Lymph % (Auto) [place] % (Auto) Lymph # (Auto) Seg Neutrophils % Seg Neuts % (Manual) Lymphocytes % (Manual) Seg Neutrophils # Seg Neutrophils # Man D-Dimer 5809.58 H ABG pH ABG pO2 ABG HCO3 ABG O2 Saturation ABG Base Excess ABG Hemoglobin Oxyhemoglobin Sodium 149 H Chloride 109.3 H Carbon Dioxide BUN 24 H Creatinine Glucose 362 H POC Glucose Calcium Ferritin 877.1 H AST Lactate Dehydrogenase 655 H C-Reactive Protein Total Protein Albumin Coronavirus (PCR) 01/26/21 01/26/21 01/26/21 05:23 06:06 09:28 WBC RBC 5.49 H Hgb MCV 77 L MCH 23 L RDW Plt Count Lymph % (Auto) [place] % (Auto) Lymph # (Auto) 0.8 L Seg Neutrophils % 78.9 H Seg Neuts % (Manual) Lymphocytes % (Manual) Seg Neutrophils # Seg Neutrophils # Man D-Dimer ABG pH ABG pO2 ABG HCO3 ABG O2 Saturation ABG Base Excess ABG Hemoglobin Oxyhemoglobin Sodium Chloride Carbon Dioxide BUN Creatinine Glucose POC Glucose 387 H 308 H Calcium Ferritin AST Lactate Dehydrogenase C-Reactive Protein Total Protein Albumin Coronavirus (PCR) 01/26/21 01/26/21 01/27/21 15:56 21:28 02:51 WBC RBC Hgb MCV MCH RDW Plt Count Lymph % (Auto) [place] % (Auto) Lymph # (Auto) Seg Neutrophils % Seg Neuts % (Manual) Lymphocytes % (Manual) Seg Neutrophils # Seg Neutrophils # Man D-Dimer ABG pH ABG pO2 ABG HCO3 ABG O2 Saturation ABG Base Excess ABG Hemoglobin Oxyhemoglobin Sodium Chloride Carbon Dioxide BUN Creatinine Glucose POC Glucose 172 H 316 H 267 H Calcium Ferritin AST Lactate Dehydrogenase C-Reactive Protein Total Protein Albumin Coronavirus (PCR) 01/27/21 01/27/21 01/27/21 04:22 04:22 04:22 WBC RBC Hgb MCV MCH RDW Plt Count Lymph % (Auto) [place] % (Auto) Lymph # (Auto) Seg Neutrophils % Seg Neuts % (Manual) Lymphocytes % (Manual) Seg Neutrophils # Seg Neutrophils # Man D-Dimer 4046.06 H ABG pH ABG pO2 ABG HCO3 ABG O2 Saturation ABG Base Excess ABG Hemoglobin Oxyhemoglobin Sodium Chloride 107.7 H Carbon Dioxide BUN 30 H Creatinine Glucose 281 H POC Glucose Calcium Ferritin 812.2 H AST Lactate Dehydrogenase 570 H C-Reactive Protein Total Protein Albumin Coronavirus (PCR) 01/27/21 01/27/21 01/27/21 04:22 05:55 12:00 WBC RBC 5.15 H Hgb MCV 76 L MCH 23 L RDW 15.5 H Plt Count Lymph % (Auto) 12.7 L [place] % (Auto) Lymph # (Auto) 0.9 L Seg Neutrophils % 81.3 H Seg Neuts % (Manual) Lymphocytes % (Manual) Seg Neutrophils # Seg Neutrophils # Man D-Dimer ABG pH ABG pO2 ABG HCO3 ABG O2 Saturation ABG Base Excess ABG Hemoglobin Oxyhemoglobin Sodium Chloride Carbon Dioxide BUN Creatinine Glucose POC Glucose 275 H 121 H Calcium Ferritin AST Lactate Dehydrogenase C-Reactive Protein Total Protein Albumin Coronavirus (PCR) 01/27/21 01/27/21 01/28/21 17:32 21:23 02:08 WBC RBC Hgb MCV MCH RDW Plt Count Lymph % (Auto) [place] % (Auto) Lymph # (Auto) Seg Neutrophils % Seg Neuts % (Manual) Lymphocytes % (Manual) Seg Neutrophils # Seg Neutrophils # Man D-Dimer ABG pH ABG pO2 ABG HCO3 ABG O2 Saturation ABG Base Excess ABG Hemoglobin Oxyhemoglobin Sodium Chloride Carbon Dioxide BUN Creatinine Glucose POC Glucose 195 H 179 H 210 H Calcium Ferritin AST Lactate Dehydrogenase C-Reactive Protein Total Protein Albumin Coronavirus (PCR) 01/28/21 01/28/21 01/28/21 05:09 08:44 08:46 WBC RBC Hgb MCV MCH RDW Plt Count Lymph % (Auto) [place] % (Auto) Lymph # (Auto) Seg Neutrophils % Seg Neuts % (Manual) Lymphocytes % (Manual) Seg Neutrophils # Seg Neutrophils # Man D-Dimer 1884.49 H ABG pH ABG pO2 ABG HCO3 ABG O2 Saturation ABG Base Excess ABG Hemoglobin Oxyhemoglobin Sodium Chloride Carbon Dioxide BUN Creatinine Glucose POC Glucose 202 H 191 H Calcium Ferritin AST Lactate Dehydrogenase C-Reactive Protein Total Protein Albumin Coronavirus (PCR) 01/28/21 01/28/21 01/28/21 08:46 08:46 12:18 WBC RBC Hgb MCV MCH RDW Plt Count Lymph % (Auto) [place] % (Auto) Lymph # (Auto) Seg Neutrophils % Seg Neuts % (Manual) Lymphocytes % (Manual) Seg Neutrophils # Seg Neutrophils # Man D-Dimer ABG pH ABG pO2 ABG HCO3 ABG O2 Saturation ABG Base Excess ABG Hemoglobin Oxyhemoglobin Sodium Chloride Carbon Dioxide BUN Creatinine Glucose POC Glucose 221 H Calcium Ferritin 797.7 H AST Lactate Dehydrogenase 556 H C-Reactive Protein Total Protein Albumin Coronavirus (PCR) 01/28/21 01/28/21 01/29/21 18:21 21:45 01:48 WBC RBC Hgb MCV MCH RDW Plt Count Lymph % (Auto) [place] % (Auto) Lymph # (Auto) Seg Neutrophils % Seg Neuts % (Manual) Lymphocytes % (Manual) Seg Neutrophils # Seg Neutrophils # Man D-Dimer ABG pH ABG pO2 ABG HCO3 ABG O2 Saturation ABG Base Excess ABG Hemoglobin Oxyhemoglobin Sodium Chloride Carbon Dioxide BUN Creatinine Glucose POC Glucose 214 H 148 H 248 H Calcium Ferritin AST Lactate Dehydrogenase C-Reactive Protein Total Protein Albumin Coronavirus (PCR) 01/29/21 01/29/21 01/29/21 05:17 10:17 11:39 WBC RBC Hgb MCV MCH RDW Plt Count Lymph % (Auto) [place] % (Auto) Lymph # (Auto) Seg Neutrophils % Seg Neuts % (Manual) Lymphocytes % (Manual) Seg Neutrophils # Seg Neutrophils # Man D-Dimer ABG pH ABG pO2 ABG HCO3 ABG O2 Saturation ABG Base Excess ABG Hemoglobin Oxyhemoglobin Sodium Chloride Carbon Dioxide BUN Creatinine Glucose POC Glucose 256 H 193 H 177 H Calcium Ferritin AST Lactate Dehydrogenase C-Reactive Protein Total Protein Albumin Coronavirus (PCR) 01/29/21 01/29/21 01/30/21 18:06 20:24 06:07 WBC RBC Hgb MCV MCH RDW Plt Count Lymph % (Auto) [place] % (Auto) Lymph # (Auto) Seg Neutrophils % Seg Neuts % (Manual) Lymphocytes % (Manual) Seg Neutrophils # Seg Neutrophils # Man D-Dimer ABG pH ABG pO2 ABG HCO3 ABG O2 Saturation ABG Base Excess ABG Hemoglobin Oxyhemoglobin Sodium Chloride Carbon Dioxide BUN Creatinine Glucose POC Glucose 107 H 114 H 114 H Calcium Ferritin AST Lactate Dehydrogenase C-Reactive Protein Total Protein Albumin Coronavirus (PCR) 01/30/21 01/30/21 01/30/21 12:08 16:11 21:19 WBC RBC Hgb MCV MCH RDW Plt Count Lymph % (Auto) [place] % (Auto) Lymph # (Auto) Seg Neutrophils % Seg Neuts % (Manual) Lymphocytes % (Manual) Seg Neutrophils # Seg Neutrophils # Man D-Dimer ABG pH ABG pO2 ABG HCO3 ABG O2 Saturation ABG Base Excess ABG Hemoglobin Oxyhemoglobin Sodium Chloride Carbon Dioxide BUN Creatinine Glucose POC Glucose 178 H 142 H 244 H Calcium Ferritin AST Lactate Dehydrogenase C-Reactive Protein Total Protein Albumin Coronavirus (PCR) 01/31/21 01/31/21 01/31/21 05:30 06:42 07:50 WBC RBC Hgb MCV MCH RDW Plt Count Lymph % (Auto) [place] % (Auto) Lymph # (Auto) Seg Neutrophils % Seg Neuts % (Manual) Lymphocytes % (Manual) Seg Neutrophils # Seg Neutrophils # Man D-Dimer ABG pH ABG pO2 ABG HCO3 ABG O2 Saturation ABG Base Excess ABG Hemoglobin Oxyhemoglobin Sodium Chloride Carbon Dioxide BUN 20 H Creatinine Glucose 160 H POC Glucose 164 H 152 H Calcium 8.0 L Ferritin AST Lactate Dehydrogenase C-Reactive Protein Total Protein Albumin Coronavirus (PCR) 01/31/21 01/31/21 01/31/21 11:40 16:37 21:01 WBC RBC Hgb MCV MCH RDW Plt Count Lymph % (Auto) [place] % (Auto) Lymph # (Auto) Seg Neutrophils % Seg Neuts % (Manual) Lymphocytes % (Manual) Seg Neutrophils # Seg Neutrophils # Man D-Dimer ABG pH ABG pO2 ABG HCO3 ABG O2 Saturation ABG Base Excess ABG Hemoglobin Oxyhemoglobin Sodium Chloride Carbon Dioxide BUN Creatinine Glucose POC Glucose 129 H 141 H 125 H Calcium Ferritin AST Lactate Dehydrogenase C-Reactive Protein Total Protein Albumin Coronavirus (PCR) 02/01/21 02/01/21 02/01/21 06:26 11:15 16:11 WBC RBC Hgb MCV MCH RDW Plt Count Lymph % (Auto) [place] % (Auto) Lymph # (Auto) Seg Neutrophils % Seg Neuts % (Manual) Lymphocytes % (Manual) Seg Neutrophils # Seg Neutrophils # Man D-Dimer ABG pH ABG pO2 ABG HCO3 ABG O2 Saturation ABG Base Excess ABG Hemoglobin Oxyhemoglobin Sodium Chloride Carbon Dioxide BUN Creatinine Glucose POC Glucose 136 H 260 H 240 H Calcium Ferritin AST Lactate Dehydrogenase C-Reactive Protein Total Protein Albumin Coronavirus (PCR) 02/01/21 02/02/21 02/02/21 22:32 07:15 07:56 WBC 3.1 L RBC Hgb MCV 75 L MCH 23 L RDW Plt Count Lymph % (Auto) 44.9 H [place] % (Auto) 9.2 H Lymph # (Auto) Seg Neutrophils % Seg Neuts % (Manual) Lymphocytes % (Manual) Seg Neutrophils # 1.3 L Seg Neutrophils # Man D-Dimer ABG pH ABG pO2 ABG HCO3 ABG O2 Saturation ABG Base Excess ABG Hemoglobin Oxyhemoglobin Sodium Chloride Carbon Dioxide BUN Creatinine Glucose POC Glucose 298 H 164 H Calcium Ferritin AST Lactate Dehydrogenase C-Reactive Protein Total Protein Albumin Coronavirus (PCR) 02/02/21 02/02/21 02/02/21 07:56 11:35 16:07 WBC RBC Hgb MCV MCH RDW Plt Count Lymph % (Auto) [place] % (Auto) Lymph # (Auto) Seg Neutrophils % Seg Neuts % (Manual) Lymphocytes % (Manual) Seg Neutrophils # Seg Neutrophils # Man D-Dimer ABG pH ABG pO2 ABG HCO3 ABG O2 Saturation ABG Base Excess ABG Hemoglobin Oxyhemoglobin Sodium Chloride Carbon Dioxide 31 H BUN Creatinine 0.4 L Glucose 159 H POC Glucose 297 H 252 H Calcium 8.2 L Ferritin AST Lactate Dehydrogenase C-Reactive Protein Total Protein Albumin Coronavirus (PCR) 02/02/21 02/03/21 02/03/21 22:33 17:04 22:17 WBC RBC Hgb MCV MCH RDW Plt Count Lymph % (Auto) [place] % (Auto) Lymph # (Auto) Seg Neutrophils % Seg Neuts % (Manual) Lymphocytes % (Manual) Seg Neutrophils # Seg Neutrophils # Man D-Dimer ABG pH ABG pO2 ABG HCO3 ABG O2 Saturation ABG Base Excess ABG Hemoglobin Oxyhemoglobin Sodium Chloride Carbon Dioxide BUN Creatinine Glucose POC Glucose 257 H 247 H 278 H Calcium Ferritin AST Lactate Dehydrogenase C-Reactive Protein Total Protein Albumin Coronavirus (PCR) 02/04/21 02/04/21 02/04/21 05:41 07:55 11:56 WBC RBC Hgb MCV MCH RDW Plt Count Lymph % (Auto) [place] % (Auto) Lymph # (Auto) Seg Neutrophils % Seg Neuts % (Manual) Lymphocytes % (Manual) Seg Neutrophils # Seg Neutrophils # Man D-Dimer ABG pH ABG pO2 ABG HCO3 ABG O2 Saturation ABG Base Excess ABG Hemoglobin Oxyhemoglobin Sodium Chloride Carbon Dioxide 31 H BUN 19 H Creatinine 0.5 L Glucose 184 H POC Glucose 182 H 227 H Calcium Ferritin AST Lactate Dehydrogenase C-Reactive Protein Total Protein Albumin Coronavirus (PCR) 02/04/21 02/04/21 02/04/21 12:45 14:52 16:45 WBC 4.0 L RBC Hgb MCV 77 L MCH 24 L RDW 15.5 H Plt Count Lymph % (Auto) [place] % (Auto) Lymph # (Auto) Seg Neutrophils % Seg Neuts % (Manual) Lymphocytes % (Manual) Seg Neutrophils # Seg Neutrophils # Man D-Dimer ABG pH ABG pO2 65.6 L ABG HCO3 30.8 H ABG O2 Saturation 94.0 L ABG Base Excess 5.5 H ABG Hemoglobin 10.3 L Oxyhemoglobin 92.3 L Sodium Chloride Carbon Dioxide BUN Creatinine Glucose POC Glucose 194 H Calcium Ferritin AST Lactate Dehydrogenase C-Reactive Protein Total Protein Albumin Coronavirus (PCR) 02/04/21 02/05/21 02/05/21 22:00 06:55 07:49 WBC RBC Hgb 10.0 L MCV MCH RDW Plt Count Lymph % (Auto) [place] % (Auto) Lymph # (Auto) Seg Neutrophils % Seg Neuts % (Manual) Lymphocytes % (Manual) Seg Neutrophils # Seg Neutrophils # Man D-Dimer ABG pH ABG pO2 ABG HCO3 ABG O2 Saturation ABG Base Excess ABG Hemoglobin Oxyhemoglobin Sodium Chloride Carbon Dioxide BUN Creatinine Glucose POC Glucose 281 H 204 H Calcium Ferritin AST Lactate Dehydrogenase C-Reactive Protein Total Protein Albumin Coronavirus (PCR) 02/05/21 02/05/21 02/05/21 11:23 16:13 16:22 WBC RBC Hgb 10.0 L MCV MCH RDW Plt Count Lymph % (Auto) [place] % (Auto) Lymph # (Auto) Seg Neutrophils % Seg Neuts % (Manual) Lymphocytes % (Manual) Seg Neutrophils # Seg Neutrophils # Man D-Dimer ABG pH ABG pO2 ABG HCO3 ABG O2 Saturation ABG Base Excess ABG Hemoglobin Oxyhemoglobin Sodium Chloride Carbon Dioxide BUN Creatinine Glucose POC Glucose 264 H 202 H Calcium Ferritin AST Lactate Dehydrogenase C-Reactive Protein Total Protein Albumin Coronavirus (PCR) 02/05/21 02/06/21 02/06/21 21:14 04:43 04:43 WBC 4.0 L RBC Hgb 10.0 L MCV 76 L MCH 23 L RDW 15.7 H Plt Count Lymph % (Auto) [place] % (Auto) Lymph # (Auto) Seg Neutrophils % Seg Neuts % (Manual) Lymphocytes % (Manual) Seg Neutrophils # Seg Neutrophils # Man D-Dimer ABG pH ABG pO2 ABG HCO3 ABG O2 Saturation ABG Base Excess ABG Hemoglobin Oxyhemoglobin Sodium Chloride Carbon Dioxide 32 H BUN Creatinine 0.4 L Glucose 163 H POC Glucose 180 H Calcium 8.3 L Ferritin AST Lactate Dehydrogenase C-Reactive Protein Total Protein Albumin Coronavirus (PCR) 02/06/21 02/06/21 02/06/21 08:01 11:44 16:11 WBC RBC Hgb MCV MCH RDW Plt Count Lymph % (Auto) [place] % (Auto) Lymph # (Auto) Seg Neutrophils % Seg Neuts % (Manual) Lymphocytes % (Manual) Seg Neutrophils # Seg Neutrophils # Man D-Dimer ABG pH ABG pO2 ABG HCO3 ABG O2 Saturation ABG Base Excess ABG Hemoglobin Oxyhemoglobin Sodium Chloride Carbon Dioxide BUN Creatinine Glucose POC Glucose 155 H 215 H 247 H Calcium Ferritin AST Lactate Dehydrogenase C-Reactive Protein Total Protein Albumin Coronavirus (PCR) 02/06/21 02/07/21 02/07/21 23:40 08:01 11:54 WBC RBC Hgb MCV MCH RDW Plt Count Lymph % (Auto) [place] % (Auto) Lymph # (Auto) Seg Neutrophils % Seg Neuts % (Manual) Lymphocytes % (Manual) Seg Neutrophils # Seg Neutrophils # Man D-Dimer ABG pH ABG pO2 ABG HCO3 ABG O2 Saturation ABG Base Excess ABG Hemoglobin Oxyhemoglobin Sodium Chloride Carbon Dioxide BUN Creatinine Glucose POC Glucose 267 H 233 H 227 H Calcium Ferritin AST Lactate Dehydrogenase C-Reactive Protein Total Protein Albumin Coronavirus (PCR) 02/07/21 02/07/21 02/07/21 15:48 20:58 20:58 WBC RBC Hgb MCV MCH RDW Plt Count Lymph % (Auto) [place] % (Auto) Lymph # (Auto) Seg Neutrophils % Seg Neuts % (Manual) Lymphocytes % (Manual) Seg Neutrophils # Seg Neutrophils # Man D-Dimer ABG pH ABG pO2 ABG HCO3 ABG O2 Saturation ABG Base Excess ABG Hemoglobin Oxyhemoglobin Sodium Chloride Carbon Dioxide 32 H BUN Creatinine 0.5 L 0.5 L Glucose 236 H POC Glucose 257 H Calcium 8.3 L Ferritin AST Lactate Dehydrogenase C-Reactive Protein Total Protein Albumin Coronavirus (PCR) 02/07/21 02/08/21 02/08/21 22:10 04:46 04:46 WBC 4.2 L RBC Hgb 9.7 L MCV 78 L MCH 24 L RDW 17.9 H Plt Count 110 L Lymph % (Auto) [place] % (Auto) Lymph # (Auto) Seg Neutrophils % Seg Neuts % (Manual) Lymphocytes % (Manual) Seg Neutrophils # Seg Neutrophils # Man D-Dimer ABG pH ABG pO2 ABG HCO3 ABG O2 Saturation ABG Base Excess ABG Hemoglobin Oxyhemoglobin Sodium Chloride Carbon Dioxide BUN Creatinine 0.4 L Glucose 220 H POC Glucose 241 H Calcium 8.0 L Ferritin AST Lactate Dehydrogenase C-Reactive Protein Total Protein Albumin Coronavirus (PCR) 02/08/21 02/08/21 02/08/21 08:05 11:36 15:44 WBC RBC Hgb MCV MCH RDW Plt Count Lymph % (Auto) [place] % (Auto) Lymph # (Auto) Seg Neutrophils % Seg Neuts % (Manual) Lymphocytes % (Manual) Seg Neutrophils # Seg Neutrophils # Man D-Dimer ABG pH ABG pO2 ABG HCO3 ABG O2 Saturation ABG Base Excess ABG Hemoglobin Oxyhemoglobin Sodium Chloride Carbon Dioxide BUN Creatinine Glucose POC Glucose 208 H 200 H 149 H Calcium Ferritin AST Lactate Dehydrogenase C-Reactive Protein Total Protein Albumin Coronavirus (PCR) 02/08/21 02/09/21 02/09/21 21:35 04:24 07:39 WBC RBC Hgb MCV MCH RDW Plt Count Lymph % (Auto) [place] % (Auto) Lymph # (Auto) Seg Neutrophils % Seg Neuts % (Manual) Lymphocytes % (Manual) Seg Neutrophils # Seg Neutrophils # Man D-Dimer ABG pH ABG pO2 ABG HCO3 ABG O2 Saturation ABG Base Excess ABG Hemoglobin Oxyhemoglobin Sodium Chloride Carbon Dioxide BUN Creatinine 0.4 L Glucose 205 H POC Glucose 249 H 205 H Calcium 8.1 L Ferritin AST Lactate Dehydrogenase C-Reactive Protein Total Protein Albumin Coronavirus (PCR) 02/09/21 02/09/21 02/09/21 11:53 16:52 21:26 WBC RBC Hgb MCV MCH RDW Plt Count Lymph % (Auto) [place] % (Auto) Lymph # (Auto) Seg Neutrophils % Seg Neuts % (Manual) Lymphocytes % (Manual) Seg Neutrophils # Seg Neutrophils # Man D-Dimer ABG pH ABG pO2 ABG HCO3 ABG O2 Saturation ABG Base Excess ABG Hemoglobin Oxyhemoglobin Sodium Chloride Carbon Dioxide BUN Creatinine Glucose POC Glucose 303 H 164 H 257 H Calcium Ferritin AST Lactate Dehydrogenase C-Reactive Protein Total Protein Albumin Coronavirus (PCR) 02/10/21 02/10/21 09:30 09:38 WBC RBC Hgb MCV MCH RDW Plt Count Lymph % (Auto) [place] % (Auto) Lymph # (Auto) Seg Neutrophils % Seg Neuts % (Manual) Lymphocytes % (Manual) Seg Neutrophils # Seg Neutrophils # Man D-Dimer ABG pH 7.309 L ABG pO2 71.2 L ABG HCO3 29.1 H ABG O2 Saturation 92.4 L ABG Base Excess ABG Hemoglobin 11.2 L Oxyhemoglobin 90.2 L Sodium Chloride Carbon Dioxide BUN Creatinine Glucose POC Glucose 240 H Calcium Ferritin AST Lactate Dehydrogenase C-Reactive Protein Total Protein Albumin Coronavirus (PCR)
--- NOTE | 2021-02-10 12:38 | Progress Note ---
Assessment and Plan Assessment and plan: This is a 55-year-old female with schizophrenia who presented to [facility] on 01/18 for shortness of breath, cough, subjective fever and not feeling well for the last couple days with known COVID-19 exposure. While in the emergency room patient was switched from non rebreather mask to high flow nasal cannula and his CTA chest showed no acute pulmonary embolism. Patient was admitted to the hospital service as a COVID-19 PUI with consults to CCM, infectious disease, psych. Severe COVID-19 pneumonia Acute hypoxic respiratory failure Obesity Schizophrenia Leukocytosis Hyperglycemia Schizophrenia Hypernatremia Hypercholermia Hemoptysis -CCM, infectious disease, psychiatry consulted, appreciate recommendations -COVID-19 PCR positive -Droplet/contact isolation -Remdesivir, azithromycin, ceftriaxone, dexamethasone (twice daily dosing) -s/p Actemra -Wean supplemental oxygen as tolerated, pulmonary hygiene -Prone as tolerated -Trend COVID-19 inflammatory markers for risk stratification, CBC, CMP -SSI, Lantus -01/18 bilateral lower extremity Doppler ultrasound negative for DVT -01/17 CTA shows no evidence of pulmonary embolism, extensive bilateral pneumonia, hepatomegaly with hepatic steatosis 01/18/2021 -Acute hypoxic respiratory failure requiring high flow oxygen 40 L. Nebulizer treatment -Patient is admitted for suspected Covid pneumonia. Patient is on dexamethasone, COVID-19 test is pending. Patient is on empiric antibiotics. -ID consulted, will consult pulmonary. -Patient has hyponatremia yesterday and I will repeat and if it is low I will manage accordingly -Patient has elevated D-dimer and CTA chest and bilateral Doppler ultrasound of the lower extremities pending 01/19/2021 -Acute hypoxic respiratory failure currently on BiPAP, nebulizer treatment. I will put in orders to transfer to [facility] yesterday but there was no bed. -Patient is positive for Covid and she is on Decadron and remdesivir. Actemra was ordered on 01/19/2021 -ID evaluated the patient and recommend to continue Decadron and remdesivir, also to continue ceftriaxone and azithromycin for 5 days because of the elevated procalcitonin level. Pulmonary was consulted and recommend to continue current management and add Lasix -CTA chest was done and significant for bilateral pulmonary opacities, negative for PE, Doppler ultrasound of the lower extremities was negative for DVT. -Prognosis is guarded. -Patient is currently on BiPAP and she was agitated and trying to take off the BiPAP, I put the patient on restraints. Discussed with senior housekeeper to transfer the patient to IMCU and if there is no bed she need to be transferred to CCU. 01/20: Patient received 5 mg of Haldol for severe agitation and refusal to keep high flow nasal cannula in place. [facility] ordered Lasix again. Psych was consulted today. Patient was on BiPAP therapy all night and RT attempted to give her a break patient is on high flow nasal cannula however she did not keep this in place and was paced back on BiPAP after receiving Haldol. She was started on Lantus today. 01/21: Patient is on BiPAP and on time examination was on 20/10 100% FiO2. Patient was started on Lantus. Psych consult completed and started on Haldol p.o. twice daily and Mirtazepin PO daily. No acute events reported overnight. Patient's D-dimer is greater than 10,000 started on prophylactic Lovenox as recent CTA chest and bilateral lower extremity Doppler ultrasound were negative. 01/22: Patient has been taken off BiPAP therapy and placed on high flow nasal cannula. Patient has been downgraded to IMCU. Patient's hyponatremia and hypochloremia have worsened. 01/23: Patient was on BiPAP overnight with FiO2 85% and IPAP 20/EPAP 10. Patient currently with high flow nasal cannula 40 L O2 with an FiO2 of 100%. Continue remdesivir and dexamethasone. Patient is s/p Actemra on 01/20. Continue empiric antibiotics per ID recommendations. Continue anticoagulation per protocol. 01/24: Patient is tachycardic and hypertensive and [facility] has opted to add amlodipine. Patient remains on 40 L 100% high flow nasal cannula. Continue remdesivir and dexamethasone. Patient is s/p Actemra on 01/20. Continue empiric antibiotics per ID recommendations. Continue anticoagulation per protocol. 01/25: Patient currently with high flow nasal cannula 40 L/min with FiO2 100%. Continue dexamethasone. Patient has completed remdesivir and s/p Actemra on 01/20. Continue full dose anticoagulation given high elevated D-dimer. Continue to trend inflammatory markers. Prognosis remains guarded. 01/26: Patient currently with high flow nasal cannula 35 L/min and FiO2 90%. Continue dexamethasone. Patient has completed remdesivir and s/p Actemra on 01/20. Continue full dose anticoagulation given high elevated D-dimer. Continue to trend inflammatory markers. Prognosis remains guarded. 01/27: Patient currently with high flow nasal cannula/Vapotherm 35 L/min O2 with FiO2 90%. Patient has completed remdesivir and s/p Actemra on 01/20. Continue full dose anticoagulation given high elevated D-dimer. Continue to trend inflammatory markers. Prognosis remains guarded. 01/28; Patient currently with high flow nasal cannula/Vapotherm 35 L/min O2 with FiO2 90%. Patient has completed remdesivir and s/p Actemra on 01/20. Continue full dose anticoagulation given high elevated D-dimer. Continue to trend inflammatory markers. Prognosis remains guarded. 01/29; patient is currently on 35 L of high flow oxygen. Prognosis guarded. Patient can be transferred to regular floor. 01/30/2021; patient is currently on 35 L of high flow oxygen, FiO2 of 65%. Patient has flat affect and did not talk to me. Patient refused most of her p.o. medications. Patient finished remdesivir, steroid. 01/31/2021; patient is on 35 L of high flow oxygen, FiO2 65%. Patient was calm and cooperative and communicative today. pulmonary is following. Patient finished remdesivir and steroid. 02/01/2021; patient was on 40 L of high flow oxygen.. I have called and discussed with her mother yesterday. Her mother told me patient was last followed at [facility] [place] and I called facility and they told me medication she was on and I put these medications. Patient refused to eat so I put the patient on NG tube feeding for medications. Prognosis is guarded. 02/02/2021; patient is on 4 L of high flow oxygen with FiO2 of 60%. Her outpatient psych medications were reconciled. Patient was taking medications and as needed NG tube. Pulmonary is following the patient. 02/03/21: Patient noted with mild epistaxis this morning we will order some Afrin to help. Continue current management patient is on 35 L high flow. No worsening distress but still with intermittent confusion sometimes takes off the oxygen. Will repeat a trial of Lasix and monitor renal function with a.m. labs. Plan discussed with nurse at bedside. I also encouraged proning again. 02/04: Unfortunately still with hypoxia desaturating required increased to 50 L and 70% will gradually taper down. Patient due to her underlying psych history of schizophrenia is noncompliant. Daughter is working on getting guardianship over the patient. This will likely be a slow process nevertheless we will still obtain a CT of the head to ensure no other pathology. We will get an ABG and a chest x-ray today. 02/05: Patient overnight had an episode where she coughed up blood. H&H has remained stable. She has been since discontinued from full dose anticoagulants to DVT prophylactic dose. Chest x-ray shows mild worsening of congestion. Will discuss with pulmonary if patient will benefit from BiPAP during hours of sleep. Still awaiting information from family on prior psych medications that the patient was on psych review with psychiatry team as her mental status remains a deterrent and an impediment to oxygen management. We will give a trial dose of Lasix x 3 days. Will transfer to [facility] for closer monitoring 02/06: Continue supportive care, 2 more days of lasix, monitor BMP closely wean oxygen as tolerated, pulmonary input noted 02/07: Continues on High flow. Refusing medications, still with severe hypoxia, Discussed with Psych to re-evaluate the patient. 02/08: Unfortunately patient was not seen by psych yesterday and I still do not have home medication listed I asked the family and they promised to bring her in. We discussed with nursing staff to ask again. We will also reconsult psych as her underlying psych condition is precluding improvement due to her refusal of medical treatments. Patient continues on high flow 10 today will be to further wean down if tolerated. She is still refusing prone position 02/09: Patient remains on oxygen, not compliance, continues on restraints to assist with compliance, will try to wean again 02/10: Restart lasix, discussed with Process Plant Operator considering starting on PrECEDEX, Monitor electrolytes. Prognosis is guarded. The high probability of a clinically significant, sudden or life threatening deterioration of the [pulmonary] system(s) required my full and direct attention, intervention and personal management. The aggregate critical care time was [35] minutes. This time is in addition to time spent performing repo rted procedures but includes the following: [x] Data Review and interpretation [x] Patient assessment and monitoring of vital signs [x] Documentation [x] Medication orders and management History Interval history: Patient seen and examined confused, remains Hypoxia and actually worse this morning, with worsening respiratory failure, and now on High flow Hospitalist Physical - Physical exam Narrative exam: ON HIGH FLOW The patient appeared well nourished and normally developed. sedated, but responsive , not as interactive but still with some confused Vital signs as documented. Head exam is unremarkable. No scleral icterus . Neck is without jugular venous distension, thyromegaly, or carotid bruits. Lungs decreased air entry on both lungs Cardiac exam reveals regular rate and Rhythm. Abdominal exam reveals normal bowel sounds, nontender, no organomegaly. Extremities are nonedematous and both femoral and pedal pulses are normal. WILDLIFE CONSERVATION PROFESSOR: Patient was on restraints. still confused. - Constitutional Vitals: Temp Pulse Resp BP Pulse Ox 98.8 F 132 H 44 H 167/90 91 02/10/21 04:00 02/10/21 10:00 02/10/21 10:00 02/10/21 10:00 02/10/21 10:29 General appearance: Present: no acute distress, well-nourished HEART Score - HEART Score Troponin: Troponin T < 0.010 ng/mL (0.00-0.029) 01/17/21 16:41 Results - Labs CBC & Chem 7: 02/08/21 04:46 02/09/21 04:24 Labs: Laboratory Last Values WBC 4.2 K/mm3 (4.5-11.0) L 02/08/21 04:46 RBC 4.07 M/mm3 (3.65-5.03) 02/08/21 04:46 Hgb 9.7 gm/dl (10.1-14.3) L 02/08/21 04:46 Hct 31.8 % (30.3-42.9) 02/08/21 04:46 MCV 78 fl (79-97) L 02/08/21 04:46 MCH 24 pg (28-32) L 02/08/21 04:46 MCHC 31 % (30-34) 02/08/21 04:46 RDW 17.9 % (13.2-15.2) H 02/08/21 04:46 Plt Count 110 K/mm3 (140-440) L 02/08/21 04:46 Lymph % (Auto) 44.9 % (13.4-35.0) H 02/02/21 07:56 Ward % (Auto) 9.2 % (0.0-7.3) H 02/02/21 07:56 Eos % (Auto) 3.6 % (0.0-4.3) 02/02/21 07:56 Baso % (Auto) 0.3 % (0.0-1.8) 02/02/21 07:56 Lymph # (Auto) 1.4 K/mm3 (1.2-5.4) 02/02/21 07:56 Ward # (Auto) 0.3 K/mm3 (0.0-0.8) 02/02/21 07:56 Eos # (Auto) 0.1 K/mm3 (0.0-0.4) 02/02/21 07:56 Baso # (Auto) 0.0 K/mm3 (0.0-0.1) 02/02/21 07:56 Add Manual Diff Complete 01/19/21 05:11 Total Counted 100 01/19/21 05:11 Seg Neutrophils % 42.0 % (40.0-70.0) 02/02/21 07:56 Seg Neuts % (Manual) 88.0 % (40.0-70.0) H 01/19/21 05:11 Lymphocytes % (Manual) 10.0 % (13.4-35.0) L 01/19/21 05:11 Monocytes % (Manual) 2.0 % (0.0-7.3) 01/19/21 05:11 Nucleated RBC % Not Reportable 01/19/21 05:11 Seg Neutrophils # 1.3 K/mm3 (1.8-7.7) L 02/02/21 07:56 Seg Neutrophils # Man 12.5 K/mm3 (1.8-7.7) H 01/19/21 05:11 Band Neutrophils # 0.0 K/mm3 01/19/21 05:11 Lymphocytes # (Manual) 1.4 K/mm3 (1.2-5.4) 01/19/21 05:11 Abs React Lymphs (Man) 0.0 K/mm3 01/19/21 05:11 Monocytes # (Manual) 0.3 K/mm3 (0.0-0.8) 01/19/21 05:11 Eosinophils # (Manual) 0.0 K/mm3 (0.0-0.4) 01/19/21 05:11 Basophils # (Manual) 0.0 K/mm3 (0.0-0.1) 01/19/21 05:11 Metamyelocytes # 0.0 K/mm3 01/19/21 05:11 Myelocytes # 0.0 K/mm3 01/19/21 05:11 Promyelocytes # 0.0 K/mm3 01/19/21 05:11 Blast Cells # 0.0 K/mm3 01/19/21 05:11 WBC Morphology Not Reportable 01/19/21 05:11 Hypersegmented Neuts Not Reportable 01/19/21 05:11 Hyposegmented Neuts Not Reportable 01/19/21 05:11 Hypogranular Neuts Not Reportable 01/19/21 05:11 Smudge Cells Not Reportable 01/19/21 05:11 Toxic Granulation Not Reportable 01/19/21 05:11 Toxic Vacuolation Not Reportable 01/19/21 05:11 Dohle Bodies Not Reportable 01/19/21 05:11 Pelger-Huet Anomaly Not Reportable 01/19/21 05:11 Inder Rods Not Reportable 01/19/21 05:11 Platelet Estimate Consistent w auto 01/19/21 05:11 Clumped Platelets Not Reportable 01/19/21 05:11 Plt Clumps, EDTA Not Reportable 01/19/21 05:11 Large Platelets Not Reportable 01/19/21 05:11 Giant Platelets Not Reportable 01/19/21 05:11 Platelet Satelliting Not Reportable 01/19/21 05:11 Plt Morphology Comment Not Reportable 01/19/21 05:11 RBC Morphology Not Reportable 01/19/21 05:11 Dimorphic RBCs Not Reportable 01/19/21 05:11 Polychromasia Not Reportable 01/19/21 05:11 Hypochromasia 1+ 01/19/21 05:11 Poikilocytosis Not Reportable 01/19/21 05:11 Anisocytosis Not Reportable 01/19/21 05:11 Microcytosis Not Reportable 01/19/21 05:11 Macrocytosis Not Reportable 01/19/21 05:11 Spherocytes Not Reportable 01/19/21 05:11 Pappenheimer Bodies Not Reportable 01/19/21 05:11 Sickle Cells Not Reportable 01/19/21 05:11 Target Cells Not Reportable 01/19/21 05:11 Tear Drop Cells Not Reportable 01/19/21 05:11 Ovalocytes Not Reportable 01/19/21 05:11 Helmet Cells Not Reportable 01/19/21 05:11 [place] Bodies Not Reportable 01/19/21 05:11 Wise Rings Not Reportable 01/19/21 05:11 Ione Cells Not Reportable 01/19/21 05:11 Bite Cells Not Reportable 01/19/21 05:11 Crenated Cell Not Reportable 01/19/21 05:11 Elliptocytes Not Reportable 01/19/21 05:11 Acanthocytes (Spur) Not Reportable 01/19/21 05:11 Rouleaux Not Reportable 01/19/21 05:11 Hemoglobin C Crystals Not Reportable 01/19/21 05:11 Schistocytes Not Reportable 01/19/21 05:11 Malaria parasites Not Reportable 01/19/21 05:11 Chai Bodies Not Reportable 01/19/21 05:11 Hem Pathologist Commnt No 01/19/21 05:11 PT 13.6 Sec. (12.2-14.9) 02/04/21 14:52 INR 1.06 (0.87-1.13) 02/04/21 14:52 APTT 30.7 Sec. (24.2-36.6) 02/04/21 14:52 D-Dimer 1884.49 ng/mlDDU (0-234) H 01/28/21 08:46 ABG pH 7.309 pH Units (7.350-7.450) L 02/10/21 09:30 ABG pCO2 59.4 mm Hg 02/10/21 09:30 ABG pO2 71.2 mm Hg (80.0-90.0) L 02/10/21 09:30 ABG HCO3 29.1 mmol/L (20.0-26.0) H 02/10/21 09:30 ABG O2 Saturation 92.4 % (95.0-99.0) L 02/10/21 09:30 ABG O2 Content 14.2 (0.0-44) 02/10/21 09:30 ABG Base Excess 1.8 mmol/L (-2.0-3.0) 02/10/21 09:30 ABG Hemoglobin 11.2 gm/dl (12.0-16.0) L 02/10/21 09:30 ABG Carboxyhemoglobin 1.8 % (0.0-5.0) 02/10/21 09:30 ABG Methemoglobin 0.6 % (0.0-1.5) 02/10/21 09:30 Oxyhemoglobin 90.2 % (95.0-99.0) L 02/10/21 09:30 FiO2 100 % 02/10/21 09:30 Sodium 142 mmol/L (137-145) 02/09/21 04:24 Potassium 3.9 mmol/L (3.6-5.0) 02/09/21 04:24 Chloride 105.5 mmol/L (98-107) 02/09/21 04:24 Carbon Dioxide 29 mmol/L (22-30) 02/09/21 04:24 Anion Gap 11 mmol/L 02/09/21 04:24 BUN 11 mg/dL (7-17) 02/09/21 04:24 Creatinine 0.4 mg/dL (0.6-1.2) L 02/09/21 04:24 Estimated GFR > 60 ml/min 02/09/21 04:24 BUN/Creatinine Ratio 28 % 02/09/21 04:24 Glucose 205 mg/dL (65-100) H 02/09/21 04:24 POC Glucose 257 mg/dL (70-105) H 02/10/21 11:45 Lactic Acid 1.70 mmol/L (0.7-2.0) 01/17/21 16:41 Calcium 8.1 mg/dL (8.4-10.2) L 02/09/21 04:24 Ferritin 797.7 ng/mL (10.0-200.0) H 01/28/21 08:46 Total Bilirubin 0.30 mg/dL (0.1-1.2) 01/21/21 11:29 AST 34 units/L (5-40) 01/21/21 11:29 ALT 38 units/L (7-56) 01/21/21 11:29 Alkaline Phosphatase 117 units/L (35-129) 01/21/21 11:29 Ammonia 43.0 umol/L (25-60) 02/04/21 14:52 Lactate Dehydrogenase 556 units/L (91-180) H 01/28/21 08:46 Troponin T < 0.010 ng/mL (0.00-0.029) 01/17/21 16:41 C-Reactive Protein 0.20 mg/dL (0.00-1.30) 01/28/21 08:46 NT-Pro-B Natriuret Pep 40.88 pg/mL (0-900) 01/17/21 16:41 Total Protein 7.3 g/dL (6.3-8.2) 01/21/21 11:29 Albumin 3.4 g/dL (3.9-5) L 01/21/21 11:29 Albumin/Globulin Ratio 0.9 % 01/21/21 11:29 Procalcitonin 0.39 ng/mL (<0.15) 01/17/21 17:46 Coronavirus (PCR) Positive (Negative) A 01/17/21 09:25 Estrada/IV: Voiding Method External Female Catheter Active Medications - Current Medications Current Medications: Generic Name Dose Route Start Last Admin Trade Name Freq PRN Reason Stop Dose Admin Acetaminophen 650 mg 01/18/21 00:36 01/22/21 23:46 Acetaminophen 325 Mg Tab PO 650 mg Q4H PRN Administration Pain MILD(1-3)/Fever >100.5/PAN Albuterol/Ipratropium 1 ampul 02/01/21 14:00 02/10/21 10:19 Ipratropium/Albuterol Sulfate 3 Ml Ampul.Neb IH Not Given TIDRT PJ Apixaban 2.5 mg 02/04/21 22:00 02/10/21 00:37 Apixaban 2.5 Mg Tab PO 2.5 mg Q12HR PJ Administration Protocol Aripiprazole 15 mg 01/31/21 13:00 02/09/21 09:28 Aripiprazole 15 Mg Tab PO 15 mg QDAY PJ Administration Ascorbic Acid 1,000 mg 02/04/21 10:00 02/10/21 00:40 Ascorbic Acid 500 Mg Tab PO 1,000 mg BID PJ Administration Cholecalciferol 5,000 unit 02/04/21 10:00 02/09/21 09:28 Cholecalciferol (Vit D3) 5,000 Unit Tab PO 5,000 unit DAILY PJ Administration Divalproex Sodium 500 mg 01/31/21 12:00 02/09/21 09:31 Divalproex Er 500 Mg Tab PO 500 mg QDAY PJ Administration Famotidine 20 mg 01/18/21 10:00 02/10/21 00:40 Famotidine 20 Mg Tab PO 20 mg BID PJ Administration Furosemide 40 mg 02/10/21 10:00 02/10/21 09:45 Furosemide 40 Mg/4 Ml Inj IV 02/12/21 10:01 40 mg QDAY PJ Administration Furosemide 40 mg 02/10/21 20:00 Furosemide 40 Mg/4 Ml Inj IV 02/10/21 20:01 ONCE ONE Hydralazine HCl 10 mg 01/18/21 00:38 01/24/21 23:12 Hydralazine 20 Mg/1 Ml Inj IV 10 mg Q6H PRN Administration htn Hydromorphone HCl 0.5 mg 01/20/21 11:00 Hydromorphone 1 Mg/1 Ml Inj IV Q6H PRN Pain , Severe (7-10) Hydrophilic Ointment 1 applic 02/03/21 12:00 Petrolatum,White 30 Gm Oint TP PRN PRN Skin Irritation Dexmedetomidine HCl 400 mcg/ 104 mls @ 4.846 mls/hr 02/10/21 11:00 02/10/21 12:18 Sodium Chloride IV 0.2 mcg/kg/hr TITRATE PJ 4.846 mls/hr Administration Protocol 0.2 MCG/KG/HR Insulin Glargine 20 units 01/20/21 22:00 02/10/21 00:39 Insulin Glargine 100 Units/Ml SUB-Q 20 units QHS [facility] Administration Insulin Human Lispro 0 unit 02/01/21 11:30 02/10/21 12:19 Insulin Lispro 100 Unit/Ml SUB-Q Not Given ACHS [facility] Protocol Methylprednisolone Sodium Succinate 40 mg 02/10/21 14:00 Methylprednisolone Sod Succinate 40 Mg/1 Ml Inj IV Q8HR [facility] Metoprolol Tartrate 12.5 mg 02/01/21 12:00 02/10/21 00:39 Metoprolol Tartrate 25 Mg Tab PO 12.5 mg BID [facility] Administration Mirtazapine 7.5 mg 01/21/21 22:00 02/10/21 00:40 Mirtazapine 15 Mg Tab PO 7.5 mg QHS [facility]J Administration Ondansetron HCl 4 mg 01/18/21 00:36 Ondansetron 4 Mg/2 Ml Inj IV Q8H PRN Nausea And Vomiting Oxymetazoline HCl 2 spray 02/03/21 12:00 02/03/21 13:17 Oxymetazoline 0.05% Nasal [place] NS 2 spray Q12H PRN Administration Congestion Paliperidone 6 mg 01/31/21 13:00 02/09/21 09:28 Paliperidone Er 3 Mg Tab PO 6 mg QDAY PJ Administration Sodium Chloride 10 ml 01/18/21 10:00 02/10/21 12:18 Sodium Chloride 0.9% 10 Ml Flush Syringe IV 10 ml BID PJ Administration Sodium Chloride 10 ml 01/18/21 00:36 Sodium Chloride 0.9% 10 Ml Flush Syringe IV PRN PRN LINE FLUSH Zinc Sulfate 220 mg 02/04/21 10:00 02/09/21 09:28 Zinc Sulfate 220 Mg Cap PO 220 mg QDAY PJ Administration Nutrition/Malnutrition Assess - Dietary Evaluation Nutrition/Malnutrition Findings: Nutrition Notes Start: 01/24/21 10:40 Freq: Status: Active Protocol: Document 02/07/21 12:55 AL (Rec: 02/07/21 12:57 AL [id number]) Co-Sign 02/07/21 12:55 CW Nutrition Notes Need for Assessment 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 Pt not receiving TF and ate breakfast at 100% per RN. Pt consumes 50% ONS. RN screen for skin risk. Milo score 16. Percent of energy/protein needs met: 67%/64% (only breakfast) Burn Absent Trauma Absent GI Symptoms None Current % PO Fair (50-74%) Minimum of two criteria No Energy Intake (non-severe) <75% Estimated Energy Requirement >7 days #1 Nutrition Diagnosis Inadequate oral intake Etiology PO intakes vary As Evidenced by Signs and Symptoms Per RN, pt has AMS and eats occasionally Is patient on ventilator? No Is Patient Ambulatory and/or Out of Bed No [facility] 1812.660 Kcal/Kg value to use for calculation 15 Approximate Energy Requirements Using 1398 kcal/Kg Calculation Used for Recommendations Kcal/kg Additional Notes PRO needs: 59-74g (0.8-1g/kg AdBW 74 kg) Fluid needs: 1 mL/kcal or per MD Nutrition Intervention Change Diet Order: Continue current Add Supplement/Snack (indicate name/kcal Glucerna BID /protein ) Provides kCal: 440 Provides Protein (gm) 20 Goal #1 Meet at least 75% of energy and protein needs via PO and ONS intakes Anticipated Discharge Needs: Cardiac/ Consistent CHO Follow-Up By: 02/11/21 Additional Comments FU for stable PO intakes.
[2021-02-10] MEDS: DIVALPROEX ER 500 MG TAB PO SCH (17:36)
[2021-02-10] MEDS: ARIPiprazole 15 MG TAB PO SCH (17:36)
[2021-02-10] MEDS: ZINC SULFATE 220 MG CAP PO SCH (17:36)
[2021-02-10] MEDS: CHOLECALCIFEROL (VIT D3) 5,000 UNIT TAB PO SCH (17:37)
[2021-02-10] MEDS: PALIPERIDONE ER 3 MG TAB PO SCH (17:37)
[2021-02-10] MEDS: methylPREDNISolone Sod Succinate 40 MG/1 ML INJ IV SCH ×2 (17:40→21:02)
[2021-02-10] MEDS ORDERED: FUROSEMIDE 40 MG/4 ML INJ IV ONE (20:00)
[2021-02-11] MEDS: methylPREDNISolone Sod Succinate 40 MG/1 ML INJ IV SCH ×3 (05:41→22:50)
[2021-02-11 06:02] LABS: Hematocrit 35.5 % (30.3-42.9); Hemoglobin 10.9 gm/dl (10.1-14.3); Mean Corpuscular HGB Conc 31 % (30-34); Mean Corpuscular Volume 78 fl (79-97); Platelet Count 133 K/mm3 (140-440); Red Blood Count 4.53 M/mm3 (3.65-5.03)
[2021-02-11 06:03] LABS: Red Cell Distribution Width 20.3 % (13.2-15.2)
--- NOTE | 2021-02-11 08:08 | Progress Note ---
Assessment and Plan Assessment and plan: This is a 55-year-old female with schizophrenia who presented to [facility] on 01/18 for shortness of breath, cough, subjective fever and not feeling well for the last couple days with known COVID-19 exposure. While in the emergency room patient was switched from non rebreather mask to high flow nasal cannula and his CTA chest showed no acute pulmonary embolism. Patient was admitted to the hospital service as a COVID-19 PUI with consults to CCM, infectious disease, psych. Severe COVID-19 pneumonia Acute hypoxic respiratory failure Obesity Schizophrenia Leukocytosis Hyperglycemia Schizophrenia Hypernatremia Hypercholermia -CCM, infectious disease, psychiatry consulted, appreciate recommendations -COVID-19 PCR positive -Droplet/contact isolation -Remdesivir, azithromycin, ceftriaxone, dexamethasone (twice daily dosing) -s/p Actemra -Wean supplemental oxygen as tolerated, pulmonary hygiene -Prone as tolerated -Trend COVID-19 inflammatory markers for risk stratification, CBC, CMP -SSI, Lantus -01/18 bilateral lower extremity Doppler ultrasound negative for DVT -01/17 CTA shows no evidence of pulmonary embolism, extensive bilateral pneumonia, hepatomegaly with hepatic steatosis 01/18/2021 -Acute hypoxic respiratory failure requiring high flow oxygen 40 L. Nebulizer treatment -Patient is admitted for suspected Covid pneumonia. Patient is on dexamethasone, COVID-19 test is pending. Patient is on empiric antibiotics. -ID consulted, will consult pulmonary. -Patient has hyponatremia yesterday and I will repeat and if it is low I will manage accordingly -Patient has elevated D-dimer and CTA chest and bilateral Doppler ultrasound of the lower extremities pending 01/19/2021 -Acute hypoxic respiratory failure currently on BiPAP, nebulizer treatment. I will put in orders to transfer to [facility] yesterday but there was no bed. -Patient is positive for Covid and she is on Decadron and remdesivir. Actemra was ordered on 01/19/2021 -ID evaluated the patient and recommend to continue Decadron and remdesivir, also to continue ceftriaxone and azithromycin for 5 days because of the elevated procalcitonin level. Pulmonary was consulted and recommend to continue current management and add Lasix -CTA chest was done and significant for bilateral pulmonary opacities, negative for PE, Doppler ultrasound of the lower extremities was negative for DVT. -Prognosis is guarded. -Patient is currently on BiPAP and she was agitated and trying to take off the BiPAP, I put the patient on restraints. Discussed with warehouse coordinator to transfer the patient to IMCU and if there is no bed she need to be transferred to CCU. 01/20: Patient received 5 mg of Haldol for severe agitation and refusal to keep high flow nasal cannula in place. [facility] ordered Lasix again. Psych was consulted today. Patient was on BiPAP therapy all night and RT attempted to give her a break patient is on high flow nasal cannula however she did not keep this in place and was paced back on BiPAP after receiving Haldol. She was started on Lantus today. 01/21: Patient is on BiPAP and on time examination was on 20/10 100% FiO2. Patient was started on Lantus. Psych consult completed and started on Haldol p.o. twice daily and Mirtazepin PO daily. No acute events reported overnight. Patient's D-dimer is greater than 10,000 started on prophylactic Lovenox as recent CTA chest and bilateral lower extremity Doppler ultrasound were negative. 01/22: Patient has been taken off BiPAP therapy and placed on high flow nasal cannula. Patient has been downgraded to IMCU. Patient's hyponatremia and hypochloremia have worsened. 01/23: Patient was on BiPAP overnight with FiO2 85% and IPAP 20/EPAP 10. Patient currently with high flow nasal cannula 40 L O2 with an FiO2 of 100%. Continue remdesivir and dexamethasone. Patient is s/p Actemra on 01/20. Continue empiric antibiotics per ID recommendations. Continue anticoagulation per protocol. 01/24: Patient is tachycardic and hypertensive and [facility] has opted to add amlo dipine. Patient remains on 40 L 100% high flow nasal cannula. Continue remdesivir and dexamethasone. Patient is s/p Actemra on 01/20. Continue empiric antibiotics per ID recommendations. Continue anticoagulation per protocol. 01/25: Patient currently with high flow nasal cannula 40 L/min with FiO2 100%. Continue dexamethasone. Patient has completed remdesivir and s/p Actemra on 01/20. Continue full dose anticoagulation given high elevated D-dimer. Continue to trend inflammatory markers. Prognosis remains guarded. 01/26: Patient currently with high flow nasal cannula 35 L/min and FiO2 90%. Continue dexamethasone. Patient has completed remdesivir and s/p Actemra on 01/20. Continue full dose anticoagulation given high elevated D-dimer. Continue to trend inflammatory markers. Prognosis remains guarded. 01/27: Patient currently with high flow nasal cannula/Vapotherm 35 L/min O2 with F iO2 90%. Patient has completed remdesivir and s/p Actemra on 01/20. Continue full dose anticoagulation given high elevated D-dimer. Continue to trend inflammatory markers. Prognosis remains guarded. 01/28; Patient currently with high flow nasal cannula/Vapotherm 35 L/min O2 with FiO2 90%. Patient has completed remdesivir and s/p Actemra on 01/20. Continue full dose anticoagulation given high elevated D-dimer. Continue to trend inflammatory markers. Prognosis remains guarded. 01/29; patient is currently on 35 L of high flow oxygen. Prognosis guarded. Patient can be transferred to regular floor. 01/30/2021; patient is currently on 35 L of high flow oxygen, FiO2 of 65%. Patient has flat affect and did not talk to me. Patient refused most of her p.o. medications. Patient finished remdesivir, steroid. 01/31/2021; patient is on 35 L of high flow oxygen, FiO2 65%. Patient was calm and cooperative and communicative today. pulmonary is following. Patient finished remdesivir and steroid. 02/01/2021; patient was on 40 L of high flow oxygen.. I have called and discussed with her mother yesterday. Her mother told me patient was last followed at [facility] and I called facility and they told me medication she was on and I put these medications. Patient refused to eat so I put the patient on NG tube feeding for medications. Prognosis is guarded. 02/02/2021; patient is on 4 L of high flow oxygen with FiO2 of 60%. Her outpatient psych medications were reconciled. Patient was taking medications and as needed NG tube. Pulmonary is following the patient. 02/03/21: Patient noted with mild epistaxis this morning we will order some Afrin to help. Continue current management patient is on 35 L high flow. No worsening distress but still with intermittent confusion sometimes takes off the oxygen. Will repeat a trial of Lasix and monitor renal function with a.m. labs. Plan discussed with nurse at bedside. I also encouraged proning again. 02/04: Unfortunately still with hypoxia desaturating required increased to 50 L and 70% will gradually taper down. Patient due to her underlying psych history of schizophrenia is noncompliant. Daughter is working on getting guardianship over the patient. This will likely be a slow process nevertheless we will still obtain a CT of the head to ensure no other pathology. We will get an ABG and a chest x-ray today. 02/05: Patient overnight had an episode where she coughed up blood. H&H has remained stable. She has been since discontinued from full dose anticoagulants to DVT prophylactic dose. Chest x-ray shows mild worsening of congestion. Will discuss with pulmonary if patient will benefit from BiPAP during hours of sleep. Still awaiting information from family on prior psych medications that the hayden nguyen was on psych review with psychiatry team as her mental status remains a deterrent and an impediment to oxygen management. We will give a trial dose of Lasix x 3 days. Will transfer to [facility] for closer monitoring 02/06: Continue supportive care, 2 more days of lasix, monitor BMP closely wean oxygen as tolerated, pulmonary input noted 02/07: Continues on High flow. Refusing medications, still with severe hypoxia, Discussed with Psych to re-evaluate the patient. 02/08: Unfortunately patient was not seen by psych yesterday and I still do not have home medication listed I asked the family and they promised to bring her in. We discussed with nursing staff to ask again. We will also reconsult psych as her underlying psych condition is precluding improvement due to her refusal of medical treatments. Patient continues on high flow 10 today will be to further wean down if tolerated. She is still refusing prone position 02/09: Patient remains on oxygen, not compliance, continues on restraints to assist with compliance, will try to wean again 02/10: Restart lasix, discussed with Demurrage Man considering starting on PrECEDEX, Monitor electrolytes. Prognosis is guarded. 02/11/2021; patient is on Lasix, Precedex and Solu-Medrol 40 mg every 8 hours. Patient's blood sugar is elevated and I increase Lantus from 20-25 nightly, give her a dose of 10 units of Lantus now. Will monitor blood sugar. Prognosis very poor. History Interval history: Patient was seen and evaluated this morning Patient was calm and cooperative Patient was on Precedex Hospitalist Physical - Physical exam Narrative exam: Patient was 40 L of oxygen with FiO2 of 100%. The patient appeared well nourished and normally developed. Vital signs as documented. Head exam is unremarkable. No scleral icterus . Neck is without jugular venous distension, thyromegaly, or carotid bruits. Lungs decreased air entry on both lungs Cardiac exam reveals regular rate and Rhythm. Abdominal exam reveals normal bowel sounds, nontender, no organomegaly. Extremities are nonedematous and both femoral and pedal pulses are normal. COURT BAILIFF OR SHERIFF: Patient was on restraints. Patient is pleasant and communicative today, but still confused. - Constitutional Vitals: Temp Pulse Resp BP Pulse Ox 97.6 F 80 23 133/82 91 02/11/21 04:00 02/11/21 07:00 02/11/21 07:00 02/11/21 07:00 02/11/21 07:00 General appearance: Present: no acute distress, well-nourished HEART Score - HEART Score Troponin: Troponin T < 0.010 ng/mL (0.00-0.029) 01/17/21 16:41 Results - Labs CBC & Chem 7: 02/11/21 04:50 02/11/21 04:50 Labs: Laboratory Last Values WBC 6.4 K/mm3 (4.5-11.0) 02/11/21 04:50 RBC 4.53 M/mm3 (3.65-5.03) 02/11/21 04:50 Hgb 10.9 gm/dl (10.1-14.3) 02/11/21 04:50 Hct 35.5 % (30.3-42.9) 02/11/21 04:50 MCV 78 fl (79-97) L 02/11/21 04:50 MCH 24 pg (28-32) L 02/11/21 04:50 MCHC 31 % (30-34) 02/11/21 04:50 RDW 20.3 % (13.2-15.2) H 02/11/21 04:50 Plt Count 133 K/mm3 (140-440) L 02/11/21 04:50 Lymph % (Auto) 44.9 % (13.4-35.0) H 02/02/21 07:56 Hendry % (Auto) 9.2 % (0.0-7.3) H 02/02/21 07:56 Eos % (Auto) 3.6 % (0.0-4.3) 02/02/21 07:56 Baso % (Auto) 0.3 % (0.0-1.8) 02/02/21 07:56 Lymph # (Auto) 1.4 K/mm3 (1.2-5.4) 02/02/21 07:56 Hendry # (Auto) 0.3 K/mm3 (0.0-0.8) 02/02/21 07:56 Eos # (Auto) 0.1 K/mm3 (0.0-0.4) 02/02/21 07:56 Baso # (Auto) 0.0 K/mm3 (0.0-0.1) 02/02/21 07:56 Add Manual Diff Complete 01/19/21 05:11 Total Counted 100 01/19/21 05:11 Seg Neutrophils % 42.0 % (40.0-70.0) 02/02/21 07:56 Seg Neuts % (Manual) 88.0 % (40.0-70.0) H 01/19/21 05:11 Lymphocytes % (Manual) 10.0 % (13.4-35.0) L 01/19/21 05:11 Monocytes % (Manual) 2.0 % (0.0-7.3) 01/19/21 05:11 Nucleated RBC % Not Reportable 01/19/21 05:11 Seg Neutrophils # 1.3 K/mm3 (1.8-7.7) L 02/02/21 07:56 Seg Neutrophils # Man 12.5 K/mm3 (1.8-7.7) H 01/19/21 05:11 Band Neutrophils # 0.0 K/mm3 01/19/21 05:11 Lymphocytes # (Manual) 1.4 K/mm3 (1.2-5.4) 01/19/21 05:11 Abs React Lymphs (Man) 0.0 K/mm3 01/19/21 05:11 Monocytes # (Manual) 0.3 K/mm3 (0.0-0.8) 01/19/21 05:11 Eosinophils # (Manual) 0.0 K/mm3 (0.0-0.4) 01/19/21 05:11 Basophils # (Manual) 0.0 K/mm3 (0.0-0.1) 01/19/21 05:11 Metamyelocytes # 0.0 K/mm3 01/19/21 05:11 Myelocytes # 0.0 K/mm3 01/19/21 05:11 Promyelocytes # 0.0 K/mm3 01/19/21 05:11 Blast Cells # 0.0 K/mm3 01/19/21 05:11 WBC Morphology Not Reportable 01/19/21 05:11 Hypersegmented Neuts Not Reportable 01/19/21 05:11 Hyposegmented Neuts Not Reportable 01/19/21 05:11 Hypogranular Neuts Not Reportable 01/19/21 05:11 Smudge Cells Not Reportable 01/19/21 05:11 Toxic Granulation Not Reportable 01/19/21 05:11 Toxic Vacuolation Not Reportable 01/19/21 05:11 Dohle Bodies Not Reportable 01/19/21 05:11 Pelger-Huet Anomaly Not Reportable 01/19/21 05:11 Inder Rods Not Reportable 01/19/21 05:11 Platelet Estimate Consistent w auto 01/19/21 05:11 Clumped Platelets Not Reportable 01/19/21 05:11 Plt Clumps, EDTA Not Reportable 01/19/21 05:11 Large Platelets Not Reportable 01/19/21 05:11 Giant Platelets Not Reportable 01/19/21 05:11 Platelet Satelliting Not Reportable 01/19/21 05:11 Plt Morphology Comment Not Reportable 01/19/21 05:11 RBC Morphology Not Reportable 01/19/21 05:11 Dimorphic RBCs Not Reportable 01/19/21 05:11 Polychromasia Not Reportable 01/19/21 05:11 Hypochromasia 1+ 01/19/21 05:11 Poikilocytosis Not Reportable 01/19/21 05:11 Anisocytosis Not Reportable 01/19/21 05:11 Microcytosis Not Reportable 01/19/21 05:11 Macrocytosis Not Reportable 01/19/21 05:11 Spherocytes Not Reportable 01/19/21 05:11 Pappenheimer Bodies Not Reportable 01/19/21 05:11 Sickle Cells Not Reportable 01/19/21 05:11 Target Cells Not Reportable 01/19/21 05:11 Tear Drop Cells Not Reportable 01/19/21 05:11 Ovalocytes Not Reportable 01/19/21 05:11 Helmet Cells Not Reportable 01/19/21 05:11 Navarro-Sherando Bodies Not Reportable 01/19/21 05:11 Henrietta Rings Not Reportable 01/19/21 05:11 Giorgio Cells Not Reportable 01/19/21 05:11 Bite Cells Not Reportable 01/19/21 05:11 Crenated Cell Not Reportable 01/19/21 05:11 Elliptocytes Not Reportable 01/19/21 05:11 Acanthocytes (Spur) Not Reportable 01/19/21 05:11 Rouleaux Not Reportable 01/19/21 05:11 Hemoglobin C Crystals Not Reportable 01/19/21 05:11 Schistocytes Not Reportable 01/19/21 05:11 Malaria parasites Not Reportable 01/19/21 05:11 Chai Bodies Not Reportable 01/19/21 05:11 Hem Pathologist Commnt No 01/19/21 05:11 PT 13.6 Sec. (12.2-14.9) 02/04/21 14:52 INR 1.06 (0.87-1.13) 02/04/21 14:52 APTT 30.7 Sec. (24.2-36.6) 02/04/21 14:52 D-Dimer 1884.49 ng/mlDDU (0-234) H 01/28/21 08:46 ABG pH 7.309 pH Units (7.350-7.450) L 02/10/21 09:30 ABG pCO2 59.4 mm Hg 02/10/21 09:30 ABG pO2 71.2 mm Hg (80.0-90.0) L 02/10/21 09:30 ABG HCO3 29.1 mmol/L (20.0-26.0) H 02/10/21 09:30 ABG O2 Saturation 92.4 % (95.0-99.0) L 02/10/21 09:30 ABG O2 Content 14.2 (0.0-44) 02/10/21 09:30 ABG Base Excess 1.8 mmol/L (-2.0-3.0) 02/10/21 09:30 ABG Hemoglobin 11.2 gm/dl (12.0-16.0) L 02/10/21 09:30 ABG Carboxyhemoglobin 1.8 % (0.0-5.0) 02/10/21 09:30 ABG Methemoglobin 0.6 % (0.0-1.5) 02/10/21 09:30 Oxyhemoglobin 90.2 % (95.0-99.0) L 02/10/21 09:30 FiO2 100 % 02/10/21 09:30 Sodium 142 mmol/L (137-145) 02/09/21 04:24 Potassium 3.9 mmol/L (3.6-5.0) 02/09/21 04:24 Chloride 105.5 mmol/L (98-107) 02/09/21 04:24 Carbon Dioxide 29 mmol/L (22-30) 02/09/21 04:24 Anion Gap 11 mmol/L 02/09/21 04:24 BUN 11 mg/dL (7-17) 02/09/21 04:24 Creatinine 0.7 mg/dL (0.6-1.2) D 02/11/21 04:50 Estimated GFR > 60 ml/min 02/11/21 04:50 BUN/Creatinine Ratio 28 % 02/09/21 04:24 Glucose 205 mg/dL (65-100) H 02/09/21 04:24 POC Glucose 362 mg/dL (70-105) H 02/10/21 21:26 Lactic Acid 1.70 mmol/L (0.7-2.0) 01/17/21 16:41 Calcium 8.1 mg/dL (8.4-10.2) L 02/09/21 04:24 Ferritin 797.7 ng/mL (10.0-200.0) H 01/28/21 08:46 Total Bilirubin 0.30 mg/dL (0.1-1.2) 01/21/21 11:29 AST 34 units/L (5-40) 01/21/21 11:29 ALT 38 units/L (7-56) 01/21/21 11:29 Alkaline Phosphatase 117 units/L (35-129) 01/21/21 11:29 Ammonia 43.0 umol/L (25-60) 02/04/21 14:52 Lactate Dehydrogenase 556 units/L (91-180) H 01/28/21 08:46 Troponin T < 0.010 ng/mL (0.00-0.029) 01/17/21 16:41 C-Reactive Protein 0.20 mg/dL (0.00-1.30) 01/28/21 08:46 NT-Pro-B Natriuret Pep 40.88 pg/mL (0-900) 01/17/21 16:41 Total Protein 7.3 g/dL (6.3-8.2) 01/21/21 11:29 Albumin 3.4 g/dL (3.9-5) L 01/21/21 11:29 Albumin/Globulin Ratio 0.9 % 01/21/21 11:29 Procalcitonin 0.39 ng/mL (<0.15) 01/17/21 17:46 Coronavirus (PCR) Positive (Negative) A 01/17/21 09:25 Estrada/IV: Voiding Method External Female Catheter Active Medications - Current Medications Current Medications: Generic Name Dose Route Start Last Admin Trade Name Freq PRN Reason Stop Dose Admin Acetaminophen 650 mg 01/18/21 00:36 01/22/21 23:46 Acetaminophen 325 Mg Tab PO 650 mg Q4H PRN Administration Pain MILD(1-3)/Fever >100.5/PAN Albuterol/Ipratropium 1 ampul 02/01/21 14:00 02/10/21 19:17 Ipratropium/Albuterol Sulfate 3 Ml Ampul.Neb IH Not Given TIDRT [facility] Apixaban 2.5 mg 02/04/21 22:00 02/10/21 21:03 Apixaban 2.5 Mg Tab PO 2.5 mg Q12HR PJ Administration Protocol Aripiprazole 15 mg 01/31/21 13:00 02/10/21 17:36 Aripiprazole 15 Mg Tab PO 15 mg QDAY PJ Administration Ascorbic Acid 1,000 mg 02/04/21 10:00 02/10/21 21:10 Ascorbic Acid 500 Mg Tab PO 1,000 mg BID PJ Administration Cholecalciferol 5,000 unit 02/04/21 10:00 02/10/21 17:37 Cholecalciferol (Vit D3) 5,000 Unit Tab PO 5,000 unit DAILY PJ Administration Divalproex Sodium 500 mg 01/31/21 12:00 02/10/21 17:36 Divalproex Er 500 Mg Tab PO 500 mg QDAY PJ Administration Famotidine 20 mg 01/18/21 10:00 02/10/21 21:11 Famotidine 20 Mg Tab PO 20 mg BID PJ Administration Furosemide 40 mg 02/10/21 10:00 02/10/21 09:45 Furosemide 40 Mg/4 Ml Inj IV 02/12/21 10:01 40 mg QDAY PJ Administration Hydralazine HCl 10 mg 01/18/21 00:38 01/24/21 23:12 Hydralazine 20 Mg/1 Ml Inj IV 10 mg Q6H PRN Administration htn Hydromorphone HCl 0.5 mg 01/20/21 11:00 Hydromorphone 1 Mg/1 Ml Inj IV Q6H PRN Pain , Severe (7-10) Hydrophilic Ointment 1 applic 02/03/21 12:00 Petrolatum,White 30 Gm Oint TP PRN PRN Skin Irritation Dexmedetomidine HCl 400 mcg/ 104 mls @ 4.846 mls/hr 02/10/21 11:00 02/11/21 07:55 Sodium Chloride IV 0.2 mcg/kg/hr TITRATE PJ 4.846 mls/hr Administration Protocol 0.2 MCG/KG/HR Insulin Glargine 25 units 02/11/21 22:00 Insulin Glargine 100 Units/Ml SUB-Q QHS [facility] Insulin Human Lispro 0 unit 02/01/21 11:30 02/10/21 21:50 Insulin Lispro 100 Unit/Ml SUB-Q 10 unit ACHS [facility] Administration Protocol Methylprednisolone Sodium Succinate 40 mg 02/10/21 14:00 02/11/21 05:41 Methylprednisolone Sod Succinate 40 Mg/1 Ml Inj IV 40 mg Q8HR PJ Administration Metoprolol Tartrate 12.5 mg 02/01/21 12:00 02/10/21 21:09 Metoprolol Tartrate 25 Mg Tab PO 12.5 mg BID PJ Administration Mirtazapine 7.5 mg 01/21/21 22:00 02/10/21 21:02 Mirtazapine 15 Mg Tab PO 7.5 mg QHS PJ Administration Ondansetron HCl 4 mg 01/18/21 00:36 Ondansetron 4 Mg/2 Ml Inj IV Q8H PRN Nausea And Vomiting Oxymetazoline HCl 2 spray 02/03/21 12:00 02/03/21 13:17 Oxymetazoline 0.05% Nasal Brethren NS 2 spray Q12H PRN Administration Congestion Paliperidone 6 mg 01/31/21 13:00 02/10/21 17:37 Paliperidone Er 3 Mg Tab PO 6 mg QDAY PJ Administration Sodium Chloride 10 ml 01/18/21 10:00 02/10/21 21:11 Sodium Chloride 0.9% 10 Ml Flush Syringe IV 10 ml BID PJ Administration Sodium Chloride 10 ml 01/18/21 00:36 Sodium Chloride 0.9% 10 Ml Flush Syringe IV PRN PRN LINE FLUSH Zinc Sulfate 220 mg 02/04/21 10:00 02/10/21 17:36 Zinc Sulfate 220 Mg Cap PO 220 mg QDAY PJ Administration Nutrition/Malnutrition Assess - Dietary Evaluation Nutrition/Malnutrition Findings: Nutrition Notes Start: 01/24/21 10:40 Freq: Status: Active Protocol: Document 02/07/21 12:55 AL (Rec: 02/07/21 12:57 AL [id number]) Co-Sign 02/07/21 12:55 CW Nutrition Notes Need for Assessment generated from: 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 Pt not receiving TF and ate breakfast at 100% per RN. Pt consumes 50% ONS. RN screen for skin risk. Milo score 16. Percent of energy/protein needs met: 67%/64% (only breakfast) Burn Absent Trauma Absent GI Symptoms None Current % PO Fair (50-74%) Minimum of two criteria No Energy Intake (non-severe) <75% Estimated Energy Requirement >7 days #1 Nutrition Diagnosis Inadequate oral intake Etiology PO intakes vary As Evidenced by Signs and Symptoms Per RN, pt has AMS and eats occasionally Is patient on ventilator? No Is Patient Ambulatory and/or Out of Bed No REE-([facility] [employer] [facility] [employer] [facility]-confined to bed) 1812.660 Kcal/Kg value to use for calculation 15 Approximate Energy Requirements Using 1398 kcal/Kg Calculation Used for Recommendations Kcal/kg Additional Notes PRO needs: 59-74g (0.8-1g/kg AdBW 74 kg) Fluid needs: 1 mL/kcal or per MD Nutrition Intervention Change Diet Order: Continue current Add Supplement/Snack (indicate name/kcal Glucerna BID /protein ) Provides kCal: 440 Provides Protein (gm) 20 Goal #1 Meet at least 75% of energy and protein needs via PO and ONS intakes Anticipated Discharge Needs: Cardiac/ Consistent CHO Follow-Up By: 02/11/21 Additional Comments FU for stable PO intakes.
[2021-02-11] MEDS: INSULIN LISPRO 100 UNIT/ML SUB-Q SCH ×4 (08:36→22:57)
--- NOTE | 2021-02-11 08:51 | Progress Note ---
Assessment and Plan 55 y/o female admitted with acute respiratory failure secondary to pneumonia, positive for Sars CoV2 02/11/21: IMS has ordered lasix daily for 3 days, will continue to monitor. May need to give an additional dose later tonight. Long discussion at bedside this am about he importance of wearing bipap at night and what that means to her overall health. Will discuss with family too. Overall prognosis is very guarded. Will do our best to not intubate this patient given her morbid obesity as this would increase her mortality rate tremendously. Please continue to document refusal of therapy when appropriate. 02/10/21: Lasix today, 40 IV. Will attempt precedex to see if this will help with mental state and cooperation in care. Will also restart steroids but use solumedrol 40q8 dosing. May need to consider adding back the Haldol PRN as well. Guarded prognosis. Will attempt our best to not intubate this patient as her mortality would be extremely high if intubated given her morbid obesity. 02/02/21: Lasix again today. Patient refuses to prone. Guarded prognosis. 02/01/21: Will give another 40 of lasix today. Will speak with RT about being more aggressive with weaning of oxygen. Prone if possible. 01/31/21: Increased lasix to 40 today. Prone if possible. 01/30/21: Lasix 20mg IV today. Continue Antipsychotic therapy management. Prone as tolerated if patient willing. 01/29/21: Will give lasix again today. Will change Haldol to IM since patient is refusing PO meds. 01/28/21: Will give lasix again today. Continue all other therapies. Prone if patient will and tolerate. STeroids. Guarded prognosis. 01/20/21: Gave Haldol 5 and patient has calmed down and become more appropriate, allowing us to place bipap back on. COntinue steroids and remdesivir therapy. Doubt patient will be able to prone successfully. Will try lasix today again to see if this helps. Very very guarded prognosis. 01/19/21: Continue decadron, suggest increase given patient body habitus to BID. ID consult for Remdesivir therapy and to see if she is a candidate for Actemra. Prone as tolerated during the day and sleep prone at night. Will give lasix again today. Guarded prognosis. 1. Prone 2. Lasix 3. Agree with steroids 4. Follow up COVID testing Guarded prognosis Subjective Date of service: 02/11/21 Principal diagnosis: Covid-19 Interval history: Patient refused bipap therapy last night. Still on HFNC and NRB with sats in the low 90's. Got at least 1 dose of lasix yesterday, will speak with pharmacy to see if the 2000 dose was actually administered. Remainder is negative. Objective Vital Signs - 12hr 02/10/21 02/10/21 02/10/21 21:00 21:09 22:00 Temperature Pulse Rate 92 H 94 H 90 Pulse Rate [ Apical] Pulse Rate [ From Monitor] Respiratory 31 H 25 H Rate Blood Pressure 134/80 134/80 133/79 O2 Sat by Pulse 91 95 Oximetry 02/10/21 02/11/21 02/11/21 23:00 00:00 01:00 Temperature 98.6 F Pulse Rate 86 83 83 Pulse Rate [ Apical] Pulse Rate [ 83 From Monitor] Respiratory 22 22 22 Rate Blood Pressure 125/71 110/62 110/67 O2 Sat by Pulse 90 91 93 Oximetry 02/11/21 02/11/21 02/11/21 01:30 02:00 03:00 Temperature Pulse Rate 82 90 Pulse Rate [ Apical] Pulse Rate [ From Monitor] Respiratory 21 30 H Rate Blood Pressure 106/65 106/73 O2 Sat by Pulse 93 93 93 Oximetry 02/11/21 02/11/21 02/11/21 04:00 05:00 06:00 Temperature 97.6 F Pulse Rate 76 79 88 Pulse Rate [ Apical] Pulse Rate [ 74 From Monitor] Respiratory 21 23 22 Rate Blood Pressure 102/68 122/74 112/66 O2 Sat by Pulse 93 92 84 Oximetry 02/11/21 02/11/21 07:00 08:00 Temperature Pulse Rate 80 81 Pulse Rate [ 76 Apical] Pulse Rate [ From Monitor] Respiratory 23 26 H Rate Blood Pressure 133/82 142/87 O2 Sat by Pulse 91 93 Oximetry Constitutional: no acute distress, alert Eyes: non-icteric ENT: oropharynx moist Neck: supple, other (large in circumference) Effort: normal Ascultation: Bilateral: clear, diminished breath sounds Cardiovascular: other (tachy, RR; no mrg) Gastrointestinal: normoactive bowel sounds, soft, non-tender, non-distended Integumentary: normal Extremities: no cyanosis, no edema, pink and warm Neurologic: normal mental status, non-focal exam, pupils equal and round Psychiatric: mood appropriate, affect normal CBC and BMP: 02/11/21 04:50 02/11/21 04:50 ABG, PT/INR, D-dimer: ABG ABG pH 7.309 pH Units (7.350-7.450) L 02/10/21 09:30 ABG pCO2 59.4 mm Hg 02/10/21 09:30 ABG pO2 71.2 mm Hg (80.0-90.0) L 02/10/21 09:30 ABG O2 Saturation 92.4 % (95.0-99.0) L 02/10/21 09:30 PT/INR, D-dimer PT 13.6 Sec. (12.2-14.9) 02/04/21 14:52 INR 1.06 (0.87-1.13) 02/04/21 14:52 D-Dimer 1884.49 ng/mlDDU (0-234) H 01/28/21 08:46 Abnormal lab findings: Abnormal Labs 01/17/21 01/17/21 01/17/21 09:25 16:41 16:41 WBC RBC 5.23 H Hgb MCV 76 L MCH 24 L RDW Plt Count Lymph % (Auto) 9.4 L [place]inger % (Auto) Lymph # (Auto) 0.8 L Seg Neutrophils % 85.4 H Seg Neuts % (Manual) Lymphocytes % (Manual) Seg Neutrophils # Seg Neutrophils # Man D-Dimer ABG pH ABG pO2 ABG HCO3 ABG O2 Saturation ABG Base Excess ABG Hemoglobin Oxyhemoglobin Sodium 128 L Chloride 90.8 L Carbon Dioxide BUN Creatinine Glucose 372 H POC Glucose Calcium Ferritin AST 98 H Lactate Dehydrogenase C-Reactive Protein Total Protein Albumin 3.2 L Coronavirus (PCR) Positive A 01/17/21 01/17/21 01/17/21 17:46 17:46 17:46 WBC RBC Hgb MCV MCH RDW Plt Count Lymph % (Auto) [place] % (Auto) Lymph # (Auto) Seg Neutrophils % Seg Neuts % (Manual) Lymphocytes % (Manual) Seg Neutrophils # Seg Neutrophils # Man D-Dimer 1058.54 H ABG pH ABG pO2 ABG HCO3 ABG O2 Saturation ABG Base Excess ABG Hemoglobin Oxyhemoglobin Sodium Chloride Carbon Dioxide BUN Creatinine Glucose 369 H POC Glucose Calcium Ferritin 668.4 H AST Lactate Dehydrogenase 519 H C-Reactive Protein 19.20 H Total Protein Albumin Coronavirus (PCR) 01/18/21 01/18/21 01/19/21 09:01 17:18 05:11 WBC 14.2 H RBC Hgb MCV 74 L MCH 23 L RDW Plt Count Lymph % (Auto) [place]inger % (Auto) Lymph # (Auto) Seg Neutrophils % Seg Neuts % (Manual) 88.0 H Lymphocytes % (Manual) 10.0 L Seg Neutrophils # Seg Neutrophils # Man 12.5 H D-Dimer ABG pH 7.461 H ABG pO2 53.1 L ABG HCO3 ABG O2 Saturation 89.4 L ABG Base Excess ABG Hemoglobin Oxyhemoglobin 88.0 L Sodium 132 L Chloride 93.6 L Carbon Dioxide BUN 18 H Creatinine Glucose 367 H POC Glucose Calcium 7.8 L Ferritin AST Lactate Dehydrogenase C-Reactive Protein Total Protein Albumin Coronavirus (PCR) 01/19/21 01/19/21 01/19/21 05:11 11:06 14:43 WBC RBC Hgb MCV MCH RDW Plt Count Lymph % (Auto) [place] % (Auto) Lymph # (Auto) Seg Neutrophils % Seg Neuts % (Manual) Lymphocytes % (Manual) Seg Neutrophils # Seg Neutrophils # Man D-Dimer ABG pH ABG pO2 ABG HCO3 ABG O2 Saturation ABG Base Excess ABG Hemoglobin Oxyhemoglobin Sodium Chloride Carbon Dioxide BUN 18 H Creatinine Glucose 304 H 379 H POC Glucose 382 H Calcium 8.3 L Ferritin AST 92 H 96 H Lactate Dehydrogenase C-Reactive Protein Total Protein Albumin 3.0 L 3.0 L Coronavirus (PCR) 01/19/21 01/19/21 01/20/21 16:18 22:18 07:31 WBC RBC Hgb MCV MCH RDW Plt Count Lymph % (Auto) [place] % (Auto) Lymph # (Auto) Seg Neutrophils % Seg Neuts % (Manual) Lymphocytes % (Manual) Seg Neutrophils # Seg Neutrophils # Man D-Dimer ABG pH ABG pO2 ABG HCO3 ABG O2 Saturation ABG Base Excess ABG Hemoglobin Oxyhemoglobin Sodium Chloride Carbon Dioxide BUN Creatinine Glucose POC Glucose 374 H 341 H 344 H Calcium Ferritin AST Lactate Dehydrogenase C-Reactive Protein Total Protein Albumin Coronavirus (PCR) 01/20/21 01/20/21 01/20/21 07:33 12:14 13:54 WBC RBC Hgb MCV MCH RDW Plt Count Lymph % (Auto) [place] % (Auto) Lymph # (Auto) Seg Neutrophils % Seg Neuts % (Manual) Lymphocytes % (Manual) Seg Neutrophils # Seg Neutrophils # Man D-Dimer ABG pH ABG pO2 ABG HCO3 ABG O2 Saturation ABG Base Excess ABG Hemoglobin Oxyhemoglobin Sodium Chloride Carbon Dioxide BUN 32 H 31 H Creatinine Glucose 343 H 396 H POC Glucose 365 H Calcium Ferritin AST 57 H 54 H Lactate Dehydrogenase C-Reactive Protein Total Protein 8.3 H Albumin 2.7 L 3.1 L Coronavirus (PCR) 01/20/21 01/20/21 01/21/21 18:28 21:25 04:45 WBC RBC Hgb MCV MCH RDW Plt Count Lymph % (Auto) [place] % (Auto) Lymph # (Auto) Seg Neutrophils % Seg Neuts % (Manual) Lymphocytes % (Manual) Seg Neutrophils # Seg Neutrophils # Man D-Dimer ABG pH ABG pO2 ABG HCO3 ABG O2 Saturation ABG Base Excess ABG Hemoglobin Oxyhemoglobin Sodium Chloride Carbon Dioxide 31 H BUN 41 H Creatinine Glucose 377 H POC Glucose 403 H 340 H Calcium Ferritin AST Lactate Dehydrogenase C-Reactive Protein Total Protein 8.3 H Albumin 3.0 L Coronavirus (PCR) 01/21/21 01/21/21 01/21/21 04:45 04:45 04:45 WBC RBC Hgb MCV MCH RDW Plt Count Lymph % (Auto) [place] % (Auto) Lymph # (Auto) Seg Neutrophils % Seg Neuts % (Manual) Lymphocytes % (Manual) Seg Neutrophils # Seg Neutrophils # Man D-Dimer > 91341 H ABG pH ABG pO2 ABG HCO3 ABG O2 Saturation ABG Base Excess ABG Hemoglobin Oxyhemoglobin Sodium Chloride Carbon Dioxide BUN Creatinine Glucose POC Glucose Calcium Ferritin 1688.0 H AST Lactate Dehydrogenase 649 H C-Reactive Protein 17.00 H Total Protein Albumin Coronavirus (PCR) 01/21/21 01/21/21 01/21/21 09:45 11:29 12:09 WBC RBC Hgb MCV MCH RDW Plt Count Lymph % (Auto) [place] % (Auto) Lymph # (Auto) Seg Neutrophils % Seg Neuts % (Manual) Lymphocytes % (Manual) Seg Neutrophils # Seg Neutrophils # Man D-Dimer ABG pH ABG pO2 ABG HCO3 ABG O2 Saturation ABG Base Excess ABG Hemoglobin Oxyhemoglobin Sodium 151 H Chloride Carbon Dioxide BUN 40 H Creatinine Glucose 412 H POC Glucose 401 H 372 H Calcium Ferritin AST Lactate Dehydrogenase C-Reactive Protein Total Protein Albumin 3.4 L Coronavirus (PCR) 01/21/21 01/21/21 01/22/21 18:26 21:09 02:00 WBC RBC Hgb MCV MCH RDW Plt Count Lymph % (Auto) [place] % (Auto) Lymph # (Auto) Seg Neutrophils % Seg Neuts % (Manual) Lymphocytes % (Manual) Seg Neutrophils # Seg Neutrophils # Han D-Dimer ABG pH ABG pO2 ABG HCO3 ABG O2 Saturation ABG Base Excess ABG Hemoglobin Oxyhemoglobin Sodium Chloride Carbon Dioxide BUN Creatinine Glucose POC Glucose 376 H 322 H 231 H Calcium Ferritin AST Lactate Dehydrogenase C-Reactive Protein Total Protein Albumin Coronavirus (PCR) 01/22/21 01/22/21 01/22/21 05:24 08:25 08:25 WBC RBC 5.44 H Hgb MCV 75 L MCH 23 L RDW 15.5 H Plt Count Lymph % (Auto) [place]inger % (Auto) Lymph # (Auto) Seg Neutrophils % Seg Neuts % (Manual) Lymphocytes % (Manual) Seg Neutrophils # Seg Neutrophils # Han D-Dimer ABG pH ABG pO2 ABG HCO3 ABG O2 Saturation ABG Base Excess ABG Hemoglobin Oxyhemoglobin Sodium 155 H Chloride 112.4 H Carbon Dioxide BUN 33 H Creatinine Glucose 274 H POC Glucose 275 H Calcium Ferritin AST Lactate Dehydrogenase C-Reactive Protein Total Protein Albumin Coronavirus (PCR) 01/22/21 01/22/21 01/22/21 11:53 16:03 21:41 WBC RBC Hgb MCV MCH RDW Plt Count Lymph % (Auto) [place] % (Auto) Lymph # (Auto) Seg Neutrophils % Seg Neuts % (Manual) Lymphocytes % (Manual) Seg Neutrophils # Seg Neutrophils # Man D-Dimer ABG pH ABG pO2 ABG HCO3 ABG O2 Saturation ABG Base Excess ABG Hemoglobin Oxyhemoglobin Sodium Chloride Carbon Dioxide BUN Creatinine Glucose POC Glucose 265 H 293 H 279 H Calcium Ferritin AST Lactate Dehydrogenase C-Reactive Protein Total Protein Albumin Coronavirus (PCR) 01/23/21 01/23/21 01/23/21 02:03 05:46 05:59 WBC RBC Hgb MCV MCH RDW Plt Count Lymph % (Auto) [place] % (Auto) Lymph # (Auto) Seg Neutrophils % Seg Neuts % (Manual) Lymphocytes % (Manual) Seg Neutrophils # Seg Neutrophils # Man D-Dimer ABG pH ABG pO2 ABG HCO3 ABG O2 Saturation ABG Base Excess ABG Hemoglobin Oxyhemoglobin Sodium Chloride Carbon Dioxide BUN Creatinine Glucose POC Glucose 268 H 303 H Calcium Ferritin 1116.0 H AST Lactate Dehydrogenase C-Reactive Protein Total Protein Albumin Coronavirus (PCR) 01/23/21 01/23/21 01/23/21 05:59 07:42 09:11 WBC RBC Hgb MCV MCH RDW Plt Count Lymph % (Auto) [place] % (Auto) Lymph # (Auto) Seg Neutrophils % Seg Neuts % (Manual) Lymphocytes % (Manual) Seg Neutrophils # Seg Neutrophils # Man D-Dimer ABG pH ABG pO2 ABG HCO3 ABG O2 Saturation ABG Base Excess ABG Hemoglobin Oxyhemoglobin Sodium Chloride Carbon Dioxide BUN Creatinine Glucose POC Glucose 291 H 285 H Calcium Ferritin AST Lactate Dehydrogenase 680 H C-Reactive Protein 5.80 H Total Protein Albumin Coronavirus (PCR) 01/23/21 01/23/21 01/23/21 14:06 17:05 17:59 WBC RBC Hgb MCV MCH RDW Plt Count Lymph % (Auto) [place]inger % (Auto) Lymph # (Auto) Seg Neutrophils % Seg Neuts % (Manual) Lymphocytes % (Manual) Seg Neutrophils # Seg Neutrophils # Man D-Dimer ABG pH ABG pO2 ABG HCO3 ABG O2 Saturation ABG Base Excess ABG Hemoglobin Oxyhemoglobin Sodium Chloride Carbon Dioxide BUN Creatinine Glucose POC Glucose 228 H 300 H 278 H Calcium Ferritin AST Lactate Dehydrogenase C-Reactive Protein Total Protein Albumin Coronavirus (PCR) 01/23/21 01/24/21 01/24/21 21:43 02:14 05:15 WBC RBC Hgb MCV MCH RDW Plt Count Lymph % (Auto) [place]inger % (Auto) Lymph # (Auto) Seg Neutrophils % Seg Neuts % (Manual) Lymphocytes % (Manual) Seg Neutrophils # Seg Neutrophils # Man D-Dimer ABG pH ABG pO2 ABG HCO3 ABG O2 Saturation ABG Base Excess ABG Hemoglobin Oxyhemoglobin Sodium Chloride Carbon Dioxide BUN Creatinine Glucose POC Glucose 223 H 427 H 392 H Calcium Ferritin AST Lactate Dehydrogenase C-Reactive Protein Total Protein Albumin Coronavirus (PCR) 01/24/21 01/24/21 01/24/21 07:03 07:03 09:10 WBC RBC 5.49 H Hgb MCV 75 L MCH 23 L RDW Plt Count Lymph % (Auto) 7.0 L Grainger % (Auto) Lymph # (Auto) 0.5 L Seg Neutrophils % 86.1 H Seg Neuts % (Manual) Lymphocytes % (Manual) Seg Neutrophils # Seg Neutrophils # Man D-Dimer ABG pH ABG pO2 ABG HCO3 ABG O2 Saturation ABG Base Excess ABG Hemoglobin Oxyhemoglobin Sodium 149 H Chloride 111.4 H Carbon Dioxide BUN 24 H Creatinine Glucose 339 H POC Glucose 284 H Calcium Ferritin AST Lactate Dehydrogenase C-Reactive Protein Total Protein Albumin Coronavirus (PCR) 01/24/21 01/24/21 01/24/21 13:47 18:30 21:58 WBC RBC Hgb MCV MCH RDW Plt Count Lymph % (Auto) [place]inger % (Auto) Lymph # (Auto) Seg Neutrophils % Seg Neuts % (Manual) Lymphocytes % (Manual) Seg Neutrophils # Seg Neutrophils # Man D-Dimer ABG pH ABG pO2 ABG HCO3 ABG O2 Saturation ABG Base Excess ABG Hemoglobin Oxyhemoglobin Sodium Chloride Carbon Dioxide BUN Creatinine Glucose POC Glucose 317 H 180 H 262 H Calcium Ferritin AST Lactate Dehydrogenase C-Reactive Protein Total Protein Albumin Coronavirus (PCR) 01/25/21 01/25/21 01/25/21 01:22 05:35 08:36 WBC RBC Hgb MCV MCH RDW Plt Count Lymph % (Auto) [place]inger % (Auto) Lymph # (Auto) Seg Neutrophils % Seg Neuts % (Manual) Lymphocytes % (Manual) Seg Neutrophils # Seg Neutrophils # Man D-Dimer ABG pH ABG pO2 ABG HCO3 ABG O2 Saturation ABG Base Excess ABG Hemoglobin Oxyhemoglobin Sodium Chloride Carbon Dioxide BUN Creatinine Glucose POC Glucose 280 H 243 H 216 H Calcium Ferritin AST Lactate Dehydrogenase C-Reactive Protein Total Protein Albumin Coronavirus (PCR) 01/25/21 01/25/21 01/25/21 15:14 15:14 15:14 WBC RBC Hgb MCV MCH RDW Plt Count Lymph % (Auto) [place]inger % (Auto) Lymph # (Auto) Seg Neutrophils % Seg Neuts % (Manual) Lymphocytes % (Manual) Seg Neutrophils # Seg Neutrophils # Man D-Dimer 6312.54 H ABG pH ABG pO2 ABG HCO3 ABG O2 Saturation ABG Base Excess ABG Hemoglobin Oxyhemoglobin Sodium 146 H Chloride 108.1 H Carbon Dioxide BUN 19 H Creatinine Glucose 287 H POC Glucose Calcium 8.3 L Ferritin 869.5 H AST Lactate Dehydrogenase 685 H C-Reactive Protein Total Protein Albumin Coronavirus (PCR) 01/25/21 01/25/21 01/26/21 16:06 21:18 01:47 WBC RBC Hgb MCV MCH RDW Plt Count Lymph % (Auto) [place] % (Auto) Lymph # (Auto) Seg Neutrophils % Seg Neuts % (Manual) Lymphocytes % (Manual) Seg Neutrophils # Seg Neutrophils # Man D-Dimer ABG pH ABG pO2 ABG HCO3 ABG O2 Saturation ABG Base Excess ABG Hemoglobin Oxyhemoglobin Sodium Chloride Carbon Dioxide BUN Creatinine Glucose POC Glucose 267 H 197 H 255 H Calcium Ferritin AST Lactate Dehydrogenase C-Reactive Protein Total Protein Albumin Coronavirus (PCR) 01/26/21 01/26/21 01/26/21 05:23 05:23 05:23 WBC RBC Hgb MCV MCH RDW Plt Count Lymph % (Auto) [place]inger % (Auto) Lymph # (Auto) Seg Neutrophils % Seg Neuts % (Manual) Lymphocytes % (Manual) Seg Neutrophils # Seg Neutrophils # Man D-Dimer 5809.58 H ABG pH ABG pO2 ABG HCO3 ABG O2 Saturation ABG Base Excess ABG Hemoglobin Oxyhemoglobin Sodium 149 H Chloride 109.3 H Carbon Dioxide BUN 24 H Creatinine Glucose 362 H POC Glucose Calcium Ferritin 877.1 H AST Lactate Dehydrogenase 655 H C-Reactive Protein Total Protein Albumin Coronavirus (PCR) 01/26/21 01/26/21 01/26/21 05:23 06:06 09:28 WBC RBC 5.49 H Hgb MCV 77 L MCH 23 L RDW Plt Count Lymph % (Auto) [place]inger % (Auto) Lymph # (Auto) 0.8 L Seg Neutrophils % 78.9 H Seg Neuts % (Manual) Lymphocytes % (Manual) Seg Neutrophils # Seg Neutrophils # Man D-Dimer ABG pH ABG pO2 ABG HCO3 ABG O2 Saturation ABG Base Excess ABG Hemoglobin Oxyhemoglobin Sodium Chloride Carbon Dioxide BUN Creatinine Glucose POC Glucose 387 H 308 H Calcium Ferritin AST Lactate Dehydrogenase C-Reactive Protein Total Protein Albumin Coronavirus (PCR) 01/26/21 01/26/21 01/27/21 15:56 21:28 02:51 WBC RBC Hgb MCV MCH RDW Plt Count Lymph % (Auto) [place]inger % (Auto) Lymph # (Auto) Seg Neutrophils % Seg Neuts % (Manual) Lymphocytes % (Manual) Seg Neutrophils # Seg Neutrophils # Man D-Dimer ABG pH ABG pO2 ABG HCO3 ABG O2 Saturation ABG Base Excess ABG Hemoglobin Oxyhemoglobin Sodium Chloride Carbon Dioxide BUN Creatinine Glucose POC Glucose 172 H 316 H 267 H Calcium Ferritin AST Lactate Dehydrogenase C-Reactive Protein Total Protein Albumin Coronavirus (PCR) 01/27/21 01/27/21 01/27/21 04:22 04:22 04:22 WBC RBC Hgb MCV MCH RDW Plt Count Lymph % (Auto) [place] % (Auto) Lymph # (Auto) Seg Neutrophils % Seg Neuts % (Manual) Lymphocytes % (Manual) Seg Neutrophils # Seg Neutrophils # Man D-Dimer 4046.06 H ABG pH ABG pO2 ABG HCO3 ABG O2 Saturation ABG Base Excess ABG Hemoglobin Oxyhemoglobin Sodium Chloride 107.7 H Carbon Dioxide BUN 30 H Creatinine Glucose 281 H POC Glucose Calcium Ferritin 812.2 H AST Lactate Dehydrogenase 570 H C-Reactive Protein Total Protein Albumin Coronavirus (PCR) 01/27/21 01/27/21 01/27/21 04:22 05:55 12:00 WBC RBC 5.15 H Hgb MCV 76 L MCH 23 L RDW 15.5 H Plt Count Lymph % (Auto) 12.7 L [place]inger % (Auto) Lymph # (Auto) 0.9 L Seg Neutrophils % 81.3 H Seg Neuts % (Manual) Lymphocytes % (Manual) Seg Neutrophils # Seg Neutrophils # Man D-Dimer ABG pH ABG pO2 ABG HCO3 ABG O2 Saturation ABG Base Excess ABG Hemoglobin Oxyhemoglobin Sodium Chloride Carbon Dioxide BUN Creatinine Glucose POC Glucose 275 H 121 H Calcium Ferritin AST Lactate Dehydrogenase C-Reactive Protein Total Protein Albumin Coronavirus (PCR) 01/27/21 01/27/21 01/28/21 17:32 21:23 02:08 WBC RBC Hgb MCV MCH RDW Plt Count Lymph % (Auto) [place] % (Auto) Lymph # (Auto) Seg Neutrophils % Seg Neuts % (Manual) Lymphocytes % (Manual) Seg Neutrophils # Seg Neutrophils # Man D-Dimer ABG pH ABG pO2 ABG HCO3 ABG O2 Saturation ABG Base Excess ABG Hemoglobin Oxyhemoglobin Sodium Chloride Carbon Dioxide BUN Creatinine Glucose POC Glucose 195 H 179 H 210 H Calcium Ferritin AST Lactate Dehydrogenase C-Reactive Protein Total Protein Albumin Coronavirus (PCR) 01/28/21 01/28/21 01/28/21 05:09 08:44 08:46 WBC RBC Hgb MCV MCH RDW Plt Count Lymph % (Auto) [place] % (Auto) Lymph # (Auto) Seg Neutrophils % Seg Neuts % (Manual) Lymphocytes % (Manual) Seg Neutrophils # Seg Neutrophils # Man D-Dimer 1884.49 H ABG pH ABG pO2 ABG HCO3 ABG O2 Saturation ABG Base Excess ABG Hemoglobin Oxyhemoglobin Sodium Chloride Carbon Dioxide BUN Creatinine Glucose POC Glucose 202 H 191 H Calcium Ferritin AST Lactate Dehydrogenase C-Reactive Protein Total Protein Albumin Coronavirus (PCR) 01/28/21 01/28/21 01/28/21 08:46 08:46 12:18 WBC RBC Hgb MCV MCH RDW Plt Count Lymph % (Auto) [place] % (Auto) Lymph # (Auto) Seg Neutrophils % Seg Neuts % (Manual) Lymphocytes % (Manual) Seg Neutrophils # Seg Neutrophils # Man D-Dimer ABG pH ABG pO2 ABG HCO3 ABG O2 Saturation ABG Base Excess ABG Hemoglobin Oxyhemoglobin Sodium Chloride Carbon Dioxide BUN Creatinine Glucose POC Glucose 221 H Calcium Ferritin 797.7 H AST Lactate Dehydrogenase 556 H C-Reactive Protein Total Protein Albumin Coronavirus (PCR) 01/28/21 01/28/21 01/29/21 18:21 21:45 01:48 WBC RBC Hgb MCV MCH RDW Plt Count Lymph % (Auto) [place] % (Auto) Lymph # (Auto) Seg Neutrophils % Seg Neuts % (Manual) Lymphocytes % (Manual) Seg Neutrophils # Seg Neutrophils # Man D-Dimer ABG pH ABG pO2 ABG HCO3 ABG O2 Saturation ABG Base Excess ABG Hemoglobin Oxyhemoglobin Sodium Chloride Carbon Dioxide BUN Creatinine Glucose POC Glucose 214 H 148 H 248 H Calcium Ferritin AST Lactate Dehydrogenase C-Reactive Protein Total Protein Albumin Coronavirus (PCR) 01/29/21 01/29/21 01/29/21 05:17 10:17 11:39 WBC RBC Hgb MCV MCH RDW Plt Count Lymph % (Auto) [place] % (Auto) Lymph # (Auto) Seg Neutrophils % Seg Neuts % (Manual) Lymphocytes % (Manual) Seg Neutrophils # Seg Neutrophils # Man D-Dimer ABG pH ABG pO2 ABG HCO3 ABG O2 Saturation ABG Base Excess ABG Hemoglobin Oxyhemoglobin Sodium Chloride Carbon Dioxide BUN Creatinine Glucose POC Glucose 256 H 193 H 177 H Calcium Ferritin AST Lactate Dehydrogenase C-Reactive Protein Total Protein Albumin Coronavirus (PCR) 01/29/21 01/29/21 01/30/21 18:06 20:24 06:07 WBC RBC Hgb MCV MCH RDW Plt Count Lymph % (Auto) [place] % (Auto) Lymph # (Auto) Seg Neutrophils % Seg Neuts % (Manual) Lymphocytes % (Manual) Seg Neutrophils # Seg Neutrophils # Man D-Dimer ABG pH ABG pO2 ABG HCO3 ABG O2 Saturation ABG Base Excess ABG Hemoglobin Oxyhemoglobin Sodium Chloride Carbon Dioxide BUN Creatinine Glucose POC Glucose 107 H 114 H 114 H Calcium Ferritin AST Lactate Dehydrogenase C-Reactive Protein Total Protein Albumin Coronavirus (PCR) 01/30/21 01/30/21 01/30/21 12:08 16:11 21:19 WBC RBC Hgb MCV MCH RDW Plt Count Lymph % (Auto) [place] % (Auto) Lymph # (Auto) Seg Neutrophils % Seg Neuts % (Manual) Lymphocytes % (Manual) Seg Neutrophils # Seg Neutrophils # Man D-Dimer ABG pH ABG pO2 ABG HCO3 ABG O2 Saturation ABG Base Excess ABG Hemoglobin Oxyhemoglobin Sodium Chloride Carbon Dioxide BUN Creatinine Glucose POC Glucose 178 H 142 H 244 H Calcium Ferritin AST Lactate Dehydrogenase C-Reactive Protein Total Protein Albumin Coronavirus (PCR) 01/31/21 01/31/21 01/31/21 05:30 06:42 07:50 WBC RBC Hgb MCV MCH RDW Plt Count Lymph % (Auto) [place] % (Auto) Lymph # (Auto) Seg Neutrophils % Seg Neuts % (Manual) Lymphocytes % (Manual) Seg Neutrophils # Seg Neutrophils # Man D-Dimer ABG pH ABG pO2 ABG HCO3 ABG O2 Saturation ABG Base Excess ABG Hemoglobin Oxyhemoglobin Sodium Chloride Carbon Dioxide BUN 20 H Creatinine Glucose 160 H POC Glucose 164 H 152 H Calcium 8.0 L Ferritin AST Lactate Dehydrogenase C-Reactive Protein Total Protein Albumin Coronavirus (PCR) 01/31/21 01/31/21 01/31/21 11:40 16:37 21:01 WBC RBC Hgb MCV MCH RDW Plt Count Lymph % (Auto) [place] % (Auto) Lymph # (Auto) Seg Neutrophils % Seg Neuts % (Manual) Lymphocytes % (Manual) Seg Neutrophils # Seg Neutrophils # Man D-Dimer ABG pH ABG pO2 ABG HCO3 ABG O2 Saturation ABG Base Excess ABG Hemoglobin Oxyhemoglobin Sodium Chloride Carbon Dioxide BUN Creatinine Glucose POC Glucose 129 H 141 H 125 H Calcium Ferritin AST Lactate Dehydrogenase C-Reactive Protein Total Protein Albumin Coronavirus (PCR) 02/01/21 02/01/21 02/01/21 06:26 11:15 16:11 WBC RBC Hgb MCV MCH RDW Plt Count Lymph % (Auto) [place] % (Auto) Lymph # (Auto) Seg Neutrophils % Seg Neuts % (Manual) Lymphocytes % (Manual) Seg Neutrophils # Seg Neutrophils # Man D-Dimer ABG pH ABG pO2 ABG HCO3 ABG O2 Saturation ABG Base Excess ABG Hemoglobin Oxyhemoglobin Sodium Chloride Carbon Dioxide BUN Creatinine Glucose POC Glucose 136 H 260 H 240 H Calcium Ferritin AST Lactate Dehydrogenase C-Reactive Protein Total Protein Albumin Coronavirus (PCR) 02/01/21 02/02/21 02/02/21 22:32 07:15 07:56 WBC 3.1 L RBC Hgb MCV 75 L MCH 23 L RDW Plt Count Lymph % (Auto) 44.9 H [place]inger % (Auto) 9.2 H Lymph # (Auto) Seg Neutrophils % Seg Neuts % (Manual) Lymphocytes % (Manual) Seg Neutrophils # 1.3 L Seg Neutrophils # Man D-Dimer ABG pH ABG pO2 ABG HCO3 ABG O2 Saturation ABG Base Excess ABG Hemoglobin Oxyhemoglobin Sodium Chloride Carbon Dioxide BUN Creatinine Glucose POC Glucose 298 H 164 H Calcium Ferritin AST Lactate Dehydrogenase C-Reactive Protein Total Protein Albumin Coronavirus (PCR) 02/02/21 02/02/21 02/02/21 07:56 11:35 16:07 WBC RBC Hgb MCV MCH RDW Plt Count Lymph % (Auto) [place] % (Auto) Lymph # (Auto) Seg Neutrophils % Seg Neuts % (Manual) Lymphocytes % (Manual) Seg Neutrophils # Seg Neutrophils # Man D-Dimer ABG pH ABG pO2 ABG HCO3 ABG O2 Saturation ABG Base Excess ABG Hemoglobin Oxyhemoglobin Sodium Chloride Carbon Dioxide 31 H BUN Creatinine 0.4 L Glucose 159 H POC Glucose 297 H 252 H Calcium 8.2 L Ferritin AST Lactate Dehydrogenase C-Reactive Protein Total Protein Albumin Coronavirus (PCR) 02/02/21 02/03/21 02/03/21 22:33 17:04 22:17 WBC RBC Hgb MCV MCH RDW Plt Count Lymph % (Auto) [place] % (Auto) Lymph # (Auto) Seg Neutrophils % Seg Neuts % (Manual) Lymphocytes % (Manual) Seg Neutrophils # Seg Neutrophils # Man D-Dimer ABG pH ABG pO2 ABG HCO3 ABG O2 Saturation ABG Base Excess ABG Hemoglobin Oxyhemoglobin Sodium Chloride Carbon Dioxide BUN Creatinine Glucose POC Glucose 257 H 247 H 278 H Calcium Ferritin AST Lactate Dehydrogenase C-Reactive Protein Total Protein Albumin Coronavirus (PCR) 02/04/21 02/04/21 02/04/21 05:41 07:55 11:56 WBC RBC Hgb MCV MCH RDW Plt Count Lymph % (Auto) [place] % (Auto) Lymph # (Auto) Seg Neutrophils % Seg Neuts % (Manual) Lymphocytes % (Manual) Seg Neutrophils # Seg Neutrophils # Man D-Dimer ABG pH ABG pO2 ABG HCO3 ABG O2 Saturation ABG Base Excess ABG Hemoglobin Oxyhemoglobin Sodium Chloride Carbon Dioxide 31 H BUN 19 H Creatinine 0.5 L Glucose 184 H POC Glucose 182 H 227 H Calcium Ferritin AST Lactate Dehydrogenase C-Reactive Protein Total Protein Albumin Coronavirus (PCR) 02/04/21 02/04/21 02/04/21 12:45 14:52 16:45 WBC 4.0 L RBC Hgb MCV 77 L MCH 24 L RDW 15.5 H Plt Count Lymph % (Auto) [place] % (Auto) Lymph # (Auto) Seg Neutrophils % Seg Neuts % (Manual) Lymphocytes % (Manual) Seg Neutrophils # Seg Neutrophils # Man D-Dimer ABG pH ABG pO2 65.6 L ABG HCO3 30.8 H ABG O2 Saturation 94.0 L ABG Base Excess 5.5 H ABG Hemoglobin 10.3 L Oxyhemoglobin 92.3 L Sodium Chloride Carbon Dioxide BUN Creatinine Glucose POC Glucose 194 H Calcium Ferritin AST Lactate Dehydrogenase C-Reactive Protein Total Protein Albumin Coronavirus (PCR) 02/04/21 02/05/21 02/05/21 22:00 06:55 07:49 WBC RBC Hgb 10.0 L MCV MCH RDW Plt Count Lymph % (Auto) [place] % (Auto) Lymph # (Auto) Seg Neutrophils % Seg Neuts % (Manual) Lymphocytes % (Manual) Seg Neutrophils # Seg Neutrophils # Man D-Dimer ABG pH ABG pO2 ABG HCO3 ABG O2 Saturation ABG Base Excess ABG Hemoglobin Oxyhemoglobin Sodium Chloride Carbon Dioxide BUN Creatinine Glucose POC Glucose 281 H 204 H Calcium Ferritin AST Lactate Dehydrogenase C-Reactive Protein Total Protein Albumin Coronavirus (PCR) 02/05/21 02/05/21 02/05/21 11:23 16:13 16:22 WBC RBC Hgb 10.0 L MCV MCH RDW Plt Count Lymph % (Auto) [place] % (Auto) Lymph # (Auto) Seg Neutrophils % Seg Neuts % (Manual) Lymphocytes % (Manual) Seg Neutrophils # Seg Neutrophils # Man D-Dimer ABG pH ABG pO2 ABG HCO3 ABG O2 Saturation ABG Base Excess ABG Hemoglobin Oxyhemoglobin Sodium Chloride Carbon Dioxide BUN Creatinine Glucose POC Glucose 264 H 202 H Calcium Ferritin AST Lactate Dehydrogenase C-Reactive Protein Total Protein Albumin Coronavirus (PCR) 02/05/21 02/06/21 02/06/21 21:14 04:43 04:43 WBC 4.0 L RBC Hgb 10.0 L MCV 76 L MCH 23 L RDW 15.7 H Plt Count Lymph % (Auto) [place] % (Auto) Lymph # (Auto) Seg Neutrophils % Seg Neuts % (Manual) Lymphocytes % (Manual) Seg Neutrophils # Seg Neutrophils # Man D-Dimer ABG pH ABG pO2 ABG HCO3 ABG O2 Saturation ABG Base Excess ABG Hemoglobin Oxyhemoglobin Sodium Chloride Carbon Dioxide 32 H BUN Creatinine 0.4 L Glucose 163 H POC Glucose 180 H Calcium 8.3 L Ferritin AST Lactate Dehydrogenase C-Reactive Protein Total Protein Albumin Coronavirus (PCR) 02/06/21 02/06/21 02/06/21 08:01 11:44 16:11 WBC RBC Hgb MCV MCH RDW Plt Count Lymph % (Auto) [place] % (Auto) Lymph # (Auto) Seg Neutrophils % Seg Neuts % (Manual) Lymphocytes % (Manual) Seg Neutrophils # Seg Neutrophils # Man D-Dimer ABG pH ABG pO2 ABG HCO3 ABG O2 Saturation ABG Base Excess ABG Hemoglobin Oxyhemoglobin Sodium Chloride Carbon Dioxide BUN Creatinine Glucose POC Glucose 155 H 215 H 247 H Calcium Ferritin AST Lactate Dehydrogenase C-Reactive Protein Total Protein Albumin Coronavirus (PCR) 02/06/21 02/07/21 02/07/21 23:40 08:01 11:54 WBC RBC Hgb MCV MCH RDW Plt Count Lymph % (Auto) [place] % (Auto) Lymph # (Auto) Seg Neutrophils % Seg Neuts % (Manual) Lymphocytes % (Manual) Seg Neutrophils # Seg Neutrophils # Man D-Dimer ABG pH ABG pO2 ABG HCO3 ABG O2 Saturation ABG Base Excess ABG Hemoglobin Oxyhemoglobin Sodium Chloride Carbon Dioxide BUN Creatinine Glucose POC Glucose 267 H 233 H 227 H Calcium Ferritin AST Lactate Dehydrogenase C-Reactive Protein Total Protein Albumin Coronavirus (PCR) 02/07/21 02/07/21 02/07/21 15:48 20:58 20:58 WBC RBC Hgb MCV MCH RDW Plt Count Lymph % (Auto) [place] % (Auto) Lymph # (Auto) Seg Neutrophils % Seg Neuts % (Manual) Lymphocytes % (Manual) Seg Neutrophils # Seg Neutrophils # Man D-Dimer ABG pH ABG pO2 ABG HCO3 ABG O2 Saturation ABG Base Excess ABG Hemoglobin Oxyhemoglobin Sodium Chloride Carbon Dioxide 32 H BUN Creatinine 0.5 L 0.5 L Glucose 236 H POC Glucose 257 H Calcium 8.3 L Ferritin AST Lactate Dehydrogenase C-Reactive Protein Total Protein Albumin Coronavirus (PCR) 02/07/21 02/08/21 02/08/21 22:10 04:46 04:46 WBC 4.2 L RBC Hgb 9.7 L MCV 78 L MCH 24 L RDW 17.9 H Plt Count 110 L Lymph % (Auto) [place] % (Auto) Lymph # (Auto) Seg Neutrophils % Seg Neuts % (Manual) Lymphocytes % (Manual) Seg Neutrophils # Seg Neutrophils # Man D-Dimer ABG pH ABG pO2 ABG HCO3 ABG O2 Saturation ABG Base Excess ABG Hemoglobin Oxyhemoglobin Sodium Chloride Carbon Dioxide BUN Creatinine 0.4 L Glucose 220 H POC Glucose 241 H Calcium 8.0 L Ferritin AST Lactate Dehydrogenase C-Reactive Protein Total Protein Albumin Coronavirus (PCR) 02/08/21 02/08/21 02/08/21 08:05 11:36 15:44 WBC RBC Hgb MCV MCH RDW Plt Count Lymph % (Auto) [place] % (Auto) Lymph # (Auto) Seg Neutrophils % Seg Neuts % (Manual) Lymphocytes % (Manual) Seg Neutrophils # Seg Neutrophils # Man D-Dimer ABG pH ABG pO2 ABG HCO3 ABG O2 Saturation ABG Base Excess ABG Hemoglobin Oxyhemoglobin Sodium Chloride Carbon Dioxide BUN Creatinine Glucose POC Glucose 208 H 200 H 149 H Calcium Ferritin AST Lactate Dehydrogenase C-Reactive Protein Total Protein Albumin Coronavirus (PCR) 02/08/21 02/09/21 02/09/21 21:35 04:24 07:39 WBC RBC Hgb MCV MCH RDW Plt Count Lymph % (Auto) [place] % (Auto) Lymph # (Auto) Seg Neutrophils % Seg Neuts % (Manual) Lymphocytes % (Manual) Seg Neutrophils # Seg Neutrophils # Man D-Dimer ABG pH ABG pO2 ABG HCO3 ABG O2 Saturation ABG Base Excess ABG Hemoglobin Oxyhemoglobin Sodium Chloride Carbon Dioxide BUN Creatinine 0.4 L Glucose 205 H POC Glucose 249 H 205 H Calcium 8.1 L Ferritin AST Lactate Dehydrogenase C-Reactive Protein Total Protein Albumin Coronavirus (PCR) 02/09/21 02/09/21 02/09/21 11:53 16:52 21:26 WBC RBC Hgb MCV MCH RDW Plt Count Lymph % (Auto) [place] % (Auto) Lymph # (Auto) Seg Neutrophils % Seg Neuts % (Manual) Lymphocytes % (Manual) Seg Neutrophils # Seg Neutrophils # Man D-Dimer ABG pH ABG pO2 ABG HCO3 ABG O2 Saturation ABG Base Excess ABG Hemoglobin Oxyhemoglobin Sodium Chloride Carbon Dioxide BUN Creatinine Glucose POC Glucose 303 H 164 H 257 H Calcium Ferritin AST Lactate Dehydrogenase C-Reactive Protein Total Protein Albumin Coronavirus (PCR) 02/10/21 02/10/21 02/10/21 09:30 09:38 11:45 WBC RBC Hgb MCV MCH RDW Plt Count Lymph % (Auto) [place] % (Auto) Lymph # (Auto) Seg Neutrophils % Seg Neuts % (Manual) Lymphocytes % (Manual) Seg Neutrophils # Seg Neutrophils # Man D-Dimer ABG pH 7.309 L ABG pO2 71.2 L ABG HCO3 29.1 H ABG O2 Saturation 92.4 L ABG Base Excess ABG Hemoglobin 11.2 L Oxyhemoglobin 90.2 L Sodium Chloride Carbon Dioxide BUN Creatinine Glucose POC Glucose 240 H 257 H Calcium Ferritin AST Lactate Dehydrogenase C-Reactive Protein Total Protein Albumin Coronavirus (PCR) 02/10/21 02/10/21 02/11/21 17:12 21:26 04:50 WBC RBC Hgb MCV 78 L MCH 24 L RDW 20.3 H Plt Count 133 L Lymph % (Auto) [place] % (Auto) Lymph # (Auto) Seg Neutrophils % Seg Neuts % (Manual) Lymphocytes % (Manual) Seg Neutrophils # Seg Neutrophils # Man D-Dimer ABG pH ABG pO2 ABG HCO3 ABG O2 Saturation ABG Base Excess ABG Hemoglobin Oxyhemoglobin Sodium Chloride Carbon Dioxide BUN Creatinine Glucose POC Glucose 178 H 362 H Calcium Ferritin AST Lactate Dehydrogenase C-Reactive Protein Total Protein Albumin Coronavirus (PCR) 02/11/21 08:02 WBC RBC Hgb MCV MCH RDW Plt Count Lymph % (Auto) [place] % (Auto) Lymph # (Auto) Seg Neutrophils % Seg Neuts % (Manual) Lymphocytes % (Manual) Seg Neutrophils # Seg Neutrophils # Man D-Dimer ABG pH ABG pO2 ABG HCO3 ABG O2 Saturation ABG Base Excess ABG Hemoglobin Oxyhemoglobin Sodium Chloride Carbon Dioxide BUN Creatinine Glucose POC Glucose 263 H Calcium Ferritin AST Lactate Dehydrogenase C-Reactive Protein Total Protein Albumin Coronavirus (PCR)
[2021-02-11] MEDS ORDERED: INSULIN GLARGINE 100 UNITS/ML SUB-Q ONE ×2 (09:00→10:00)
--- NOTE | 2021-02-11 09:02 | Event Note ---
Date: 02/11/21 Number in the Computer for Mother is wrong. The last four digits should be [id number] not [id number]. Will see if this can be corrected. Long discussion with Mother over the phone this morning, and I explained the mortality if her daughter is put on the vent (life support) and how refusal of therapy can only make this possibility that much closer to reality. The mother understands and I have asked her to speak with the patient after i speak with her at the bedside. I may even call the mother and place her on speaker while I am in the room. Our main objective is patient safety and to avoid intubation at all costs.
[2021-02-11] MEDS: FUROSEMIDE 40 MG/4 ML INJ IV SCH (09:18)
[2021-02-11] MEDS: DIVALPROEX ER 500 MG TAB PO SCH (09:18)
[2021-02-11] MEDS: ASCORBIC ACID 500 MG TAB PO SCH ×2 (09:18→22:46)
[2021-02-11] MEDS: APIXABAN 2.5 MG TAB PO SCH ×2 (09:18→22:46)
[2021-02-11] MEDS: METOPROLOL TARTRATE 25 MG TAB PO SCH ×2 (09:19→22:46)
[2021-02-11] MEDS: PALIPERIDONE ER 3 MG TAB PO SCH (09:19)
[2021-02-11] MEDS: CHOLECALCIFEROL (VIT D3) 5,000 UNIT TAB PO SCH (09:19)
[2021-02-11] MEDS: ARIPiprazole 15 MG TAB PO SCH (09:20)
[2021-02-11] MEDS: FAMOTIDINE 20 MG TAB PO SCH ×2 (09:21→22:48)
[2021-02-11] MEDS: ZINC SULFATE 220 MG CAP PO SCH (09:21)
[2021-02-11] MEDS: IPRATROPIUM/ALBUTEROL SULFATE 3 ML AMPUL.NEB IH SCH ×3 (09:46→22:28)
--- NOTE | 2021-02-11 17:20 | Electrocardiograph Report ---
[facility] Test Date: 2021-02-04 Test Time: 20:19:51 Pat Name: JAXON MCGREGOR Department: Room: A265 Gender: F Apartment Rental Agent: MELITA : [id number] Requested By: MELINA SAEED Order Number: [id number] Reading MD: Ashely Radford Measurements Intervals [place] Rate: 129 P: 46 NV: 134 QRS: 12 QRSD: 98 T: -20 QT: 316 QTc: 464 Interpretive Statements Sinus tachycardia LAE, consider biatrial enlargement Probable left ventricular hypertrophy Compared to ECG 01/17/2021 20:48:54 No significant changes Electronically Signed On 02-11-2021 17:20:27 EDT by Ashely Radford
[2021-02-11] MEDS: MIRTAZAPINE 15 MG TAB PO SCH (22:47)
[2021-02-11] MEDS: ACETAMINOPHEN 325 MG TAB PO PRN (22:49)
[2021-02-11] MEDS: INSULIN GLARGINE 100 UNITS/ML SUB-Q SCH (22:50)
[2021-02-12] MEDS: methylPREDNISolone Sod Succinate 40 MG/1 ML INJ IV SCH ×3 (06:20→22:07)
[2021-02-12] MEDS: INSULIN LISPRO 100 UNIT/ML SUB-Q SCH ×4 (08:06→22:34)
[2021-02-12] MEDS: IPRATROPIUM/ALBUTEROL SULFATE 3 ML AMPUL.NEB IH SCH ×3 (08:54→22:21)
--- NOTE | 2021-02-12 09:36 | Progress Note ---
Assessment and Plan Assessment and plan: This is a 55-year-old female with schizophrenia who presented to [facility] on 01/18 for shortness of breath, cough, subjective fever and not feeling well for the last couple days with known COVID-19 exposure. While in the emergency room patient was switched from non rebreather mask to high flow nasal cannula and his CTA chest showed no acute pulmonary embolism. Patient was admitted to the hospital service as a COVID-19 PUI with consults to CCM, infectious disease, psych. Severe COVID-19 pneumonia Acute hypoxic respiratory failure Obesity Schizophrenia Leukocytosis Hyperglycemia Schizophrenia Hypernatremia Hypercholermia -CCM, infectious disease, psychiatry consulted, appreciate recommendations -COVID-19 PCR positive -Droplet/contact isolation -Remdesivir, azithromycin, ceftriaxone, dexamethasone (twice daily dosing) -s/p Actemra -Wean supplemental oxygen as tolerated, pulmonary hygiene -Prone as tolerated -Trend COVID-19 inflammatory markers for risk stratification, CBC, CMP -SSI, Lantus -01/18 bilateral lower extremity Doppler ultrasound negative for DVT -01/17 CTA shows no evidence of pulmonary embolism, extensive bilateral pneumonia, hepatomegaly with hepatic steatosis 01/18/2021 -Acute hypoxic respiratory failure requiring high flow oxygen 40 L. Nebulizer treatment -Patient is admitted for suspected Covid pneumonia. Patient is on dexamethasone, COVID-19 test is pending. Patient is on empiric antibiotics. -ID consulted, will consult pulmonary. -Patient has hyponatremia yesterday and I will repeat and if it is low I will manage accordingly -Patient has elevated D-dimer and CTA chest and bilateral Doppler ultrasound of the lower extremities pending 01/19/2021 -Acute hypoxic respiratory failure currently on BiPAP, nebulizer treatment. I will put in orders to transfer to [facility] yesterday but there was no bed. -Patient is positive for Covid and she is on Decadron and remdesivir. Actemra was ordered on 01/19/2021 -ID evaluated the patient and recommend to continue Decadron and remdesivir, also to continue ceftriaxone and azithromycin for 5 days because of the elevated procalcitonin level. Pulmonary was consulted and recommend to continue current management and add Lasix -CTA chest was done and significant for bilateral pulmonary opacities, negative for PE, Doppler ultrasound of the lower extremities was negative for DVT. -Prognosis is guarded. -Patient is currently on BiPAP and she was agitated and trying to take off the BiPAP, I put the patient on restraints. Discussed with warehouse engineer to transfer the patient to IMCU and if there is no bed she need to be transferred to CCU. 01/20: Patient received 5 mg of Haldol for severe agitation and refusal to keep high flow nasal cannula in place. [facility] ordered Lasix again. Psych was consulted today. Patient was on BiPAP therapy all night and RT attempted to give her a break patient is on high flow nasal cannula however she did not keep this in place and was paced back on BiPAP after receiving Haldol. She was started on Lantus today. 01/21: Patient is on BiPAP and on time examination was on 20/10 100% FiO2. Patient was started on Lantus. Psych consult completed and started on Haldol p.o. twice daily and Mirtazepin PO daily. No acute events reported overnight. Patient's D-dimer is greater than 10,000 started on prophylactic Lovenox as recent CTA chest and bilateral lower extremity Doppler ultrasound were negative. 01/22: Patient has been taken off BiPAP therapy and placed on high flow nasal cannula. Patient has been downgraded to IMCU. Patient's hyponatremia and hypochloremia have worsened. 01/23: Patient was on BiPAP overnight with FiO2 85% and IPAP 20/EPAP 10. Patient currently with high flow nasal cannula 40 L O2 with an FiO2 of 100%. Continue remdesivir and dexamethasone. Patient is s/p Actemra on 01/20. Continue empiric antibiotics per ID recommendations. Continue anticoagulation per protocol. 01/24: Patient is tachycardic and hypertensive and [facility] has opted to add amlo dipine. Patient remains on 40 L 100% high flow nasal cannula. Continue remdesivir and dexamethasone. Patient is s/p Actemra on 01/20. Continue empiric antibiotics per ID recommendations. Continue anticoagulation per protocol. 01/25: Patient currently with high flow nasal cannula 40 L/min with FiO2 100%. Continue dexamethasone. Patient has completed remdesivir and s/p Actemra on 01/20. Continue full dose anticoagulation given high elevated D-dimer. Continue to trend inflammatory markers. Prognosis remains guarded. 01/26: Patient currently with high flow nasal cannula 35 L/min and FiO2 90%. Continue dexamethasone. Patient has completed remdesivir and s/p Actemra on 01/20. Continue full dose anticoagulation given high elevated D-dimer. Continue to trend inflammatory markers. Prognosis remains guarded. 01/27: Patient currently with high flow nasal cannula/Vapotherm 35 L/min O2 with F iO2 90%. Patient has completed remdesivir and s/p Actemra on 01/20. Continue full dose anticoagulation given high elevated D-dimer. Continue to trend inflammatory markers. Prognosis remains guarded. 01/28; Patient currently with high flow nasal cannula/Vapotherm 35 L/min O2 with FiO2 90%. Patient has completed remdesivir and s/p Actemra on 01/20. Continue full dose anticoagulation given high elevated D-dimer. Continue to trend inflammatory markers. Prognosis remains guarded. 01/29; patient is currently on 35 L of high flow oxygen. Prognosis guarded. Patient can be transferred to regular floor. 01/30/2021; patient is currently on 35 L of high flow oxygen, FiO2 of 65%. Patient has flat affect and did not talk to me. Patient refused most of her p.o. medications. Patient finished remdesivir, steroid. 01/31/2021; patient is on 35 L of high flow oxygen, FiO2 65%. Patient was calm and cooperative and communicative today. pulmonary is following. Patient finished remdesivir and steroid. 02/01/2021; patient was on 40 L of high flow oxygen.. I have called and discussed with her mother yesterday. Her mother told me patient was last followed at [facility] and I called facility and they told me medication she was on and I put these medications. Patient refused to eat so I put the patient on NG tube feeding for medications. Prognosis is guarded. 02/02/2021; patient is on 4 L of high flow oxygen with FiO2 of 60%. Her outpatient psych medications were reconciled. Patient was taking medications and as needed NG tube. Pulmonary is following the patient. 02/03/21: Patient noted with mild epistaxis this morning we will order some Afrin to help. Continue current management patient is on 35 L high flow. No worsening distress but still with intermittent confusion sometimes takes off the oxygen. Will repeat a trial of Lasix and monitor renal function with a.m. labs. Plan discussed with nurse at bedside. I also encouraged proning again. 02/04: Unfortunately still with hypoxia desaturating required increased to 50 L and 70% will gradually taper down. Patient due to her underlying psych history of schizophrenia is noncompliant. Daughter is working on getting guardianship over the patient. This will likely be a slow process nevertheless we will still obtain a CT of the head to ensure no other pathology. We will get an ABG and a chest x-ray today. 02/05: Patient overnight had an episode where she coughed up blood. H&H has remained stable. She has been since discontinued from full dose anticoagulants to DVT prophylactic dose. Chest x-ray shows mild worsening of congestion. Will discuss with pulmonary if patient will benefit from BiPAP during hours of sleep. Still awaiting information from family on prior psych medications that the hayden nguyen was on psych review with psychiatry team as her mental status remains a deterrent and an impediment to oxygen management. We will give a trial dose of Lasix x 3 days. Will transfer to [facility] for closer monitoring 02/06: Continue supportive care, 2 more days of lasix, monitor BMP closely wean oxygen as tolerated, pulmonary input noted 02/07: Continues on High flow. Refusing medications, still with severe hypoxia, Discussed with Psych to re-evaluate the patient. 02/08: Unfortunately patient was not seen by psych yesterday and I still do not have home medication listed I asked the family and they promised to bring her in. We discussed with nursing staff to ask again. We will also reconsult psych as her underlying psych condition is precluding improvement due to her refusal of medical treatments. Patient continues on high flow 10 today will be to further wean down if tolerated. She is still refusing prone position 02/09: Patient remains on oxygen, not compliance, continues on restraints to assist with compliance, will try to wean again 02/10: Restart lasix, discussed with Production Intern considering starting on PrECEDEX, Monitor electrolytes. Prognosis is guarded. 02/11/2021; patient is on Lasix, Precedex and Solu-Medrol 40 mg every 8 hours. Patient's blood sugar is elevated and I increase Lantus from 20-25 nightly, give her a dose of 10 units of Lantus now. Will monitor blood sugar. Prognosis very poor. 02/12/2021; patient is on 40 L of high flow oxygen, 94% FiO2. Pulmonary is following the patient and recommendations noted. Dr Mancilla Discussed with the patient and the mother about the plan of care and the high risk of her condition and refusal of care. History Interval history: Patient was seen and evaluated this morning Patient was calm and cooperative, patient was alert and oriented Patient was on 40 L of oxygen with FiO2 of 95% Hospitalist Physical - Physical exam Narrative exam: Patient was 40 L of oxygen with FiO2 of 95%. The patient appeared well nourished and normally developed. Vital signs as documented. Head exam is unremarkable. No scleral icterus . Neck is without jugular venous distension, thyromegaly, or carotid bruits. Lungs decreased air entry on both lungs Cardiac exam reveals regular rate and Rhythm. Abdominal exam reveals normal bowel sounds, nontender, no organomegaly. Extremities are nonedematous and both femoral and pedal pulses are normal. RECLAMATION WORKER: Patient was on restraints. Patient is pleasant and communicative today, but still confused. - Constitutional Vitals: Temp Pulse Resp BP Pulse Ox 98.3 F 112 H 28 H 125/71 93 02/12/21 07:27 02/12/21 08:54 02/12/21 08:54 02/12/21 06:00 02/12/21 08:00 General appearance: Present: no acute distress, well-nourished HEART Score - HEART Score Troponin: Troponin T < 0.010 ng/mL (0.00-0.029) 01/17/21 16:41 Results - Labs CBC & Chem 7: 02/11/21 04:50 02/11/21 04:50 Labs: Laboratory Last Values WBC 6.4 K/mm3 (4.5-11.0) 02/11/21 04:50 RBC 4.53 M/mm3 (3.65-5.03) 02/11/21 04:50 Hgb 10.9 gm/dl (10.1-14.3) 02/11/21 04:50 Hct 35.5 % (30.3-42.9) 02/11/21 04:50 MCV 78 fl (79-97) L 02/11/21 04:50 MCH 24 pg (28-32) L 02/11/21 04:50 MCHC 31 % (30-34) 02/11/21 04:50 RDW 20.3 % (13.2-15.2) H 02/11/21 04:50 Plt Count 133 K/mm3 (140-440) L 02/11/21 04:50 Lymph % (Auto) 44.9 % (13.4-35.0) H 02/02/21 07:56 [place] % (Auto) 9.2 % (0.0-7.3) H 02/02/21 07:56 Eos % (Auto) 3.6 % (0.0-4.3) 02/02/21 07:56 Baso % (Auto) 0.3 % (0.0-1.8) 02/02/21 07:56 Lymph # (Auto) 1.4 K/mm3 (1.2-5.4) 02/02/21 07:56 [place] # (Auto) 0.3 K/mm3 (0.0-0.8) 02/02/21 07:56 Eos # (Auto) 0.1 K/mm3 (0.0-0.4) 02/02/21 07:56 Baso # (Auto) 0.0 K/mm3 (0.0-0.1) 02/02/21 07:56 Add Manual Diff Complete 01/19/21 05:11 Total Counted 100 01/19/21 05:11 Seg Neutrophils % 42.0 % (40.0-70.0) 02/02/21 07:56 Seg Neuts % (Manual) 88.0 % (40.0-70.0) H 01/19/21 05:11 Lymphocytes % (Manual) 10.0 % (13.4-35.0) L 01/19/21 05:11 Monocytes % (Manual) 2.0 % (0.0-7.3) 01/19/21 05:11 Nucleated RBC % Not Reportable 01/19/21 05:11 Seg Neutrophils # 1.3 K/mm3 (1.8-7.7) L 02/02/21 07:56 Seg Neutrophils # Man 12.5 K/mm3 (1.8-7.7) H 01/19/21 05:11 Band Neutrophils # 0.0 K/mm3 01/19/21 05:11 Lymphocytes # (Manual) 1.4 K/mm3 (1.2-5.4) 01/19/21 05:11 Abs React Lymphs (Man) 0.0 K/mm3 01/19/21 05:11 Monocytes # (Manual) 0.3 K/mm3 (0.0-0.8) 01/19/21 05:11 Eosinophils # (Manual) 0.0 K/mm3 (0.0-0.4) 01/19/21 05:11 Basophils # (Manual) 0.0 K/mm3 (0.0-0.1) 01/19/21 05:11 Metamyelocytes # 0.0 K/mm3 01/19/21 05:11 Myelocytes # 0.0 K/mm3 01/19/21 05:11 Promyelocytes # 0.0 K/mm3 01/19/21 05:11 Blast Cells # 0.0 K/mm3 01/19/21 05:11 WBC Morphology Not Reportable 01/19/21 05:11 Hypersegmented Neuts Not Reportable 01/19/21 05:11 Hyposegmented Neuts Not Reportable 01/19/21 05:11 Hypogranular Neuts Not Reportable 01/19/21 05:11 Smudge Cells Not Reportable 01/19/21 05:11 Toxic Granulation Not Reportable 01/19/21 05:11 Toxic Vacuolation Not Reportable 01/19/21 05:11 Dohle Bodies Not Reportable 01/19/21 05:11 Pelger-Huet Anomaly Not Reportable 01/19/21 05:11 Inder Rods Not Reportable 01/19/21 05:11 Platelet Estimate Consistent w auto 01/19/21 05:11 Clumped Platelets Not Reportable 01/19/21 05:11 Plt Clumps, EDTA Not Reportable 01/19/21 05:11 Large Platelets Not Reportable 01/19/21 05:11 Giant Platelets Not Reportable 01/19/21 05:11 Platelet Satelliting Not Reportable 01/19/21 05:11 Plt Morphology Comment Not Reportable 01/19/21 05:11 RBC Morphology Not Reportable 01/19/21 05:11 Dimorphic RBCs Not Reportable 01/19/21 05:11 Polychromasia Not Reportable 01/19/21 05:11 Hypochromasia 1+ 01/19/21 05:11 Poikilocytosis Not Reportable 01/19/21 05:11 Anisocytosis Not Reportable 01/19/21 05:11 Microcytosis Not Reportable 01/19/21 05:11 Macrocytosis Not Reportable 01/19/21 05:11 Spherocytes Not Reportable 01/19/21 05:11 Pappenheimer Bodies Not Reportable 01/19/21 05:11 Sickle Cells Not Reportable 01/19/21 05:11 Target Cells Not Reportable 01/19/21 05:11 Tear Drop Cells Not Reportable 01/19/21 05:11 Ovalocytes Not Reportable 01/19/21 05:11 Helmet Cells Not Reportable 01/19/21 05:11 [place] Bodies Not Reportable 01/19/21 05:11 [place] Rings Not Reportable 01/19/21 05:11 [place] Cells Not Reportable 01/19/21 05:11 Bite Cells Not Reportable 01/19/21 05:11 Crenated Cell Not Reportable 01/19/21 05:11 Elliptocytes Not Reportable 01/19/21 05:11 Acanthocytes (Spur) Not Reportable 01/19/21 05:11 Rouleaux Not Reportable 01/19/21 05:11 Hemoglobin C Crystals Not Reportable 01/19/21 05:11 Schistocytes Not Reportable 01/19/21 05:11 Malaria parasites Not Reportable 01/19/21 05:11 Chai Bodies Not Reportable 01/19/21 05:11 Hem Pathologist Commnt No 01/19/21 05:11 PT 13.6 Sec. (12.2-14.9) 02/04/21 14:52 INR 1.06 (0.87-1.13) 02/04/21 14:52 APTT 30.7 Sec. (24.2-36.6) 02/04/21 14:52 D-Dimer 1884.49 ng/mlDDU (0-234) H 01/28/21 08:46 ABG pH 7.309 pH Units (7.350-7.450) L 02/10/21 09:30 ABG pCO2 59.4 mm Hg 02/10/21 09:30 ABG pO2 71.2 mm Hg (80.0-90.0) L 02/10/21 09:30 ABG HCO3 29.1 mmol/L (20.0-26.0) H 02/10/21 09:30 ABG O2 Saturation 92.4 % (95.0-99.0) L 02/10/21 09:30 ABG O2 Content 14.2 (0.0-44) 02/10/21 09:30 ABG Base Excess 1.8 mmol/L (-2.0-3.0) 02/10/21 09:30 ABG Hemoglobin 11.2 gm/dl (12.0-16.0) L 02/10/21 09:30 ABG Carboxyhemoglobin 1.8 % (0.0-5.0) 02/10/21 09:30 ABG Methemoglobin 0.6 % (0.0-1.5) 02/10/21 09:30 Oxyhemoglobin 90.2 % (95.0-99.0) L 02/10/21 09:30 FiO2 100 % 02/10/21 09:30 Sodium 142 mmol/L (137-145) 02/09/21 04:24 Potassium 3.9 mmol/L (3.6-5.0) 02/09/21 04:24 Chloride 105.5 mmol/L (98-107) 02/09/21 04:24 Carbon Dioxide 29 mmol/L (22-30) 02/09/21 04:24 Anion Gap 11 mmol/L 02/09/21 04:24 BUN 11 mg/dL (7-17) 02/09/21 04:24 Creatinine 0.7 mg/dL (0.6-1.2) D 02/11/21 04:50 Estimated GFR > 60 ml/min 02/11/21 04:50 BUN/Creatinine Ratio 28 % 02/09/21 04:24 Glucose 205 mg/dL (65-100) H 02/09/21 04:24 POC Glucose 248 mg/dL (70-105) H 02/11/21 21:39 Lactic Acid 1.70 mmol/L (0.7-2.0) 01/17/21 16:41 Calcium 8.1 mg/dL (8.4-10.2) L 02/09/21 04:24 Ferritin 797.7 ng/mL (10.0-200.0) H 01/28/21 08:46 Total Bilirubin 0.30 mg/dL (0.1-1.2) 01/21/21 11:29 AST 34 units/L (5-40) 01/21/21 11:29 ALT 38 units/L (7-56) 01/21/21 11:29 Alkaline Phosphatase 117 units/L (35-129) 01/21/21 11:29 Ammonia 43.0 umol/L (25-60) 02/04/21 14:52 Lactate Dehydrogenase 556 units/L (91-180) H 01/28/21 08:46 Troponin T < 0.010 ng/mL (0.00-0.029) 01/17/21 16:41 C-Reactive Protein 0.20 mg/dL (0.00-1.30) 01/28/21 08:46 NT-Pro-B Natriuret Pep 40.88 pg/mL (0-900) 01/17/21 16:41 Total Protein 7.3 g/dL (6.3-8.2) 01/21/21 11:29 Albumin 3.4 g/dL (3.9-5) L 01/21/21 11:29 Albumin/Globulin Ratio 0.9 % 01/21/21 11:29 Procalcitonin 0.39 ng/mL (<0.15) 01/17/21 17:46 Coronavirus (PCR) Negative (Negative) 02/11/21 09:10 Estrada/IV: Voiding Method Incontinent Active Medications - Current Medications Current Medications: Generic Name Dose Route Start Last Admin Trade Name Freq PRN Reason Stop Dose Admin Acetaminophen 650 mg 01/18/21 00:36 02/11/21 22:49 Acetaminophen 325 Mg Tab PO 650 mg Q4H PRN Administration Pain MILD(1-3)/Fever >100.5/PAN Albuterol/Ipratropium 1 ampul 02/01/21 14:00 02/12/21 08:54 Ipratropium/Albuterol Sulfate 3 Ml Ampul.Neb IH 1 ampul TIDRT PJ Administration Apixaban 2.5 mg 02/04/21 22:00 02/11/21 22:46 Apixaban 2.5 Mg Tab PO 2.5 mg Q12HR PJ Administration Protocol Aripiprazole 15 mg 01/31/21 13:00 02/11/21 09:20 Aripiprazole 15 Mg Tab PO 15 mg QDAY PJ Administration Ascorbic Acid 1,000 mg 02/04/21 10:00 02/11/21 22:46 Ascorbic Acid 500 Mg Tab PO 1,000 mg BID PJ Administration Cholecalciferol 5,000 unit 02/04/21 10:00 02/11/21 09:19 Cholecalciferol (Vit D3) 5,000 Unit Tab PO 5,000 unit DAILY PJ Administration Divalproex Sodium 500 mg 01/31/21 12:00 02/11/21 09:18 Divalproex Er 500 Mg Tab PO 500 mg QDAY PJ Administration Famotidine 20 mg 01/18/21 10:00 02/11/21 22:48 Famotidine 20 Mg Tab PO 20 mg BID PJ Administration Furosemide 40 mg 02/10/21 10:00 02/11/21 09:18 Furosemide 40 Mg/4 Ml Inj IV 02/12/21 10:01 40 mg QDAY PJ Administration Hydralazine HCl 10 mg 01/18/21 00:38 01/24/21 23:12 Hydralazine 20 Mg/1 Ml Inj IV 10 mg Q6H PRN Administration htn Hydromorphone HCl 0.5 mg 01/20/21 11:00 Hydromorphone 1 Mg/1 Ml Inj IV Q6H PRN Pain , Severe (7-10) Hydrophilic Ointment 1 applic 02/03/21 12:00 Petrolatum,White 30 Gm Oint TP PRN PRN Skin Irritation Dexmedetomidine HCl 400 mcg/ 104 mls @ 4.846 mls/hr 02/10/21 11:00 02/12/21 06:21 Sodium Chloride IV 0.2 mcg/kg/hr TITRATE PJ 4.846 mls/hr Administration Protocol 0.2 MCG/KG/HR Insulin Glargine 25 units 02/11/21 22:00 02/11/21 22:50 Insulin Glargine 100 Units/Ml SUB-Q 25 units QHS PJ Administration Insulin Human Lispro 0 unit 02/01/21 11:30 02/11/21 22:57 Insulin Lispro 100 Unit/Ml SUB-Q 4 unit ACHS PJ Administration Protocol Methylprednisolone Sodium Succinate 40 mg 02/10/21 14:00 02/12/21 06:20 Methylprednisolone Sod Succinate 40 Mg/1 Ml Inj IV 40 mg Q8HR PJ Administration Metoprolol Tartrate 12.5 mg 02/01/21 12:00 02/11/21 22:46 Metoprolol Tartrate 25 Mg Tab PO 12.5 mg BID PJ Administration Mirtazapine 7.5 mg 01/21/21 22:00 02/11/21 22:47 Mirtazapine 15 Mg Tab PO 7.5 mg QHS PJ Administration Ondansetron HCl 4 mg 01/18/21 00:36 Ondansetron 4 Mg/2 Ml Inj IV Q8H PRN Nausea And Vomiting Oxymetazoline HCl 2 spray 02/03/21 12:00 02/03/21 13:17 Oxymetazoline 0.05% Nasal Mabel NS 2 spray Q12H PRN Administration Congestion Paliperidone 6 mg 01/31/21 13:00 02/11/21 09:19 Paliperidone Er 3 Mg Tab PO 6 mg QDAY PJ Administration Sodium Chloride 10 ml 01/18/21 10:00 02/11/21 22:50 Sodium Chloride 0.9% 10 Ml Flush Syringe IV 10 ml BID PJ Administration Sodium Chloride 10 ml 01/18/21 00:36 Sodium Chloride 0.9% 10 Ml Flush Syringe IV PRN PRN LINE FLUSH Zinc Sulfate 220 mg 02/04/21 10:00 02/11/21 09:21 Zinc Sulfate 220 Mg Cap PO 220 mg QDAY PJ Administration Nutrition/Malnutrition Assess - Dietary Evaluation Nutrition/Malnutrition Findings: Nutrition Notes Start: 01/24/21 10:40 Freq: Status: Active Protocol: Document 02/11/21 12:24 VINAY (Rec: 02/11/21 12:35 VINAY [id number]) Co-Sign 02/11/21 12:24 JUAN ALBERTO Nutrition Notes Initial or Follow up Reassessment Current Diagnosis Respiratory Failure Other Pertinent Diagnosis pneu, COVID-19(+), AMS Current Diet Cardiac/Consistent CHO Labs/Tests 02/09 BG 205 Pertinent Medications Lasix Solumedrol Insulin vitamin C vitamin D3 zinc Height 5 ft 4 in Weight 93.2 kg [place] Body Weight (kg) 54.54 BMI 35.2 Weight Status Obese Subjective/Other Information F/U for stable intakes. Per RN , pt consumed 100% PO/ONS intakes this AM. Per chart, pt has average of 67% intakes. Per chart, avoiding intubation d/t high mortality risk in morbid obesity. Percent of energy/protein needs met: 100%/78% (PO and ONS) Burn Absent Trauma Absent GI Symptoms None Current % PO Good (75-100%) Minimum of two criteria No Energy Intake (non-severe) <75% Estimated Energy Requirement >7 days #1 Nutrition Diagnosis Inadequate oral intake As Evidenced by Signs and Symptoms pt consuming 67% meals and 100 % ONS Diagnosis Progress(for reassessment Improved documentation) Is patient on ventilator? No Is Patient Ambulatory and/or Out of Bed No REE-([facility]-confined to bed) 1812.660 Kcal/Kg value to use for calculation 15 Approximate Energy Requirements Using 1398 kcal/Kg Calculation Used for Recommendations Kcal/kg Additional Notes PRO needs: 59-74g (0.8-1g/kg AdBW 74 kg) Fluid needs: 1 mL/kcal or per MD Nutrition Intervention Change Diet Order: Continue current Add Supplement/Snack (indicate name/kcal Glucerna BID /protein ) Provides kCal: 440 Provides Protein (gm) 20 Goal #1 Meet at least 75% of energy and protein needs via PO and ONS intakes Anticipated Discharge Needs: Cardiac/Consistent CHO Follow-Up By: 02/13/21 Additional Comments F/U for stable PO/ONS intakes
[2021-02-12] MEDS: ARIPiprazole 15 MG TAB PO SCH (11:07)
[2021-02-12] MEDS: DIVALPROEX ER 500 MG TAB PO SCH (11:08)
[2021-02-12] MEDS: APIXABAN 2.5 MG TAB PO SCH ×2 (12:09→22:04)
[2021-02-12] MEDS: FUROSEMIDE 40 MG/4 ML INJ IV SCH (12:10)
[2021-02-12] MEDS: METOPROLOL TARTRATE 25 MG TAB PO SCH ×2 (12:10→22:06)
[2021-02-12] MEDS: PALIPERIDONE ER 3 MG TAB PO SCH (12:10)
[2021-02-12] MEDS: FAMOTIDINE 20 MG TAB PO SCH ×2 (12:11→22:05)
[2021-02-12] MEDS: ZINC SULFATE 220 MG CAP PO SCH (12:12)
[2021-02-12] MEDS: ASCORBIC ACID 500 MG TAB PO SCH ×2 (12:12→22:05)
[2021-02-12] MEDS: CHOLECALCIFEROL (VIT D3) 5,000 UNIT TAB PO SCH (12:13)
--- NOTE | 2021-02-12 13:05 | Progress Note ---
Assessment and Plan 55 y/o female admitted with acute respiratory failure secondary to pneumonia, positive for Sars CoV2 02/12/18: continue lasix therapy daily. Prone if possible. Guarded prongosis. continue steroids 02/11/21: IMS has ordered lasix daily for 3 days, will continue to monitor. May need to give an additional dose later tonight. Long discussion at bedside this am about he importance of wearing bipap at night and what that means to her overall health. Will discuss with family too. Overall prognosis is very guarded. Will do our best to not intubate this patient given her morbid obesity as this would increase her mortality rate tremendously. Please continue to document refusal of therapy when appropriate. 02/10/21: Lasix today, 40 IV. Will attempt precedex to see if this will help with mental state and cooperation in care. Will also restart steroids but use solumedrol 40q8 dosing. May need to consider adding back the Haldol PRN as well. Guarded prognosis. Will attempt our best to not intubate this patient as her mortality would be extremely high if intubated given her morbid obesity. 02/02/21: Lasix again today. Patient refuses to prone. Guarded prognosis. 02/01/21: Will give another 40 of lasix today. Will speak with RT about being more aggressive with weaning of oxygen. Prone if possible. 01/31/21: Increased lasix to 40 today. Prone if possible. 01/30/21: Lasix 20mg IV today. Continue Antipsychotic therapy management. Prone as tolerated if patient willing. 01/29/21: Will give lasix again today. Will change Haldol to IM since patient is refusing PO meds. 01/28/21: Will give lasix again today. Continue all other therapies. Prone if patient will and tolerate. STeroids. Guarded prognosis. 01/20/21: Gave Haldol 5 and patient has calmed down and become more appropriate, allowing us to place bipap back on. COntinue steroids and remdesivir therapy. Doubt patient will be able to prone successfully. Will try lasix today again to see if this helps. Very very guarded prognosis. 01/19/21: Continue decadron, suggest increase given patient body habitus to BID. ID consult for Remdesivir therapy and to see if she is a candidate for Actemra. Prone as tolerated during the day and sleep prone at night. Will give lasix again today. Guarded prognosis. 1. Prone 2. Lasix 3. Agree with steroids 4. Follow up COVID testing Guarded prognosis Subjective Date of service: 02/12/21 Principal diagnosis: Covid-19 Interval history: No acute events. Off nonrebreather and just on HFNC. Objective Vital Signs - 12hr 02/12/21 02/12/21 02/12/21 02:00 03:00 03:36 Temperature 98.0 F Pulse Rate 82 79 Pulse Rate [ From Monitor] Pulse Rate [ Posterior Bilateral Throughout] Respiratory 22 21 Rate Respiratory Rate [Posterior Bilateral Throughout] Blood Pressure 113/69 116/71 O2 Sat by Pulse 93 95 Oximetry 02/12/21 02/12/21 02/12/21 04:00 04:28 04:30 Temperature Pulse Rate 93 H 82 Pulse Rate [ 93 H From Monitor] Pulse Rate [ Posterior Bilateral Throughout] Respiratory 25 H Rate Respiratory Rate [Posterior Bilateral Throughout] Blood Pressure 118/70 O2 Sat by Pulse 94 94 Oximetry 02/12/21 02/12/21 02/12/21 05:00 06:00 07:00 Temperature Pulse Rate 83 121 H 85 Pulse Rate [ From Monitor] Pulse Rate [ Posterior Bilateral Throughout] Respiratory 22 37 H 21 Rate Respiratory Rate [Posterior Bilateral Throughout] Blood Pressure 133/78 125/71 127/76 O2 Sat by Pulse 93 89 96 Oximetry 02/12/21 02/12/21 02/12/21 07:27 08:00 08:54 Temperature 98.3 F Pulse Rate 87 Pulse Rate [ 93 H From Monitor] Pulse Rate [ 112 H Posterior Bilateral Throughout] Respiratory 21 Rate Respiratory 28 H Rate [Posterior Bilateral Throughout] Blood Pressure 146/88 O2 Sat by Pulse 94 Oximetry 02/12/21 02/12/21 02/12/21 09:00 10:00 11:00 Temperature Pulse Rate 106 H 103 H 104 H Pulse Rate [ From Monitor] Pulse Rate [ Posterior Bilateral Throughout] Respiratory 25 H 26 H 27 H Rate Respiratory Rate [Posterior Bilateral Throughout] Blood Pressure 150/88 147/89 126/73 O2 Sat by Pulse 97 92 96 Oximetry 02/12/21 12:00 Temperature Pulse Rate 118 H Pulse Rate [ 93 H From Monitor] Pulse Rate [ Posterior Bilateral Throughout] Respiratory 28 H Rate Respiratory Rate [Posterior Bilateral Throughout] Blood Pressure 132/79 O2 Sat by Pulse 93 Oximetry Constitutional: no acute distress, alert Eyes: non-icteric ENT: oropharynx moist Neck: supple, other (large in circumference) Effort: normal Ascultation: Bilateral: clear, diminished breath sounds Cardiovascular: other (tachy, RR; no mrg) Gastrointestinal: normoactive bowel sounds, soft, non-tender, non-distended Integumentary: normal Extremities: no cyanosis, no edema, pink and warm Neurologic: normal mental status, non-focal exam, pupils equal and round Psychiatric: mood appropriate, affect normal CBC and BMP: 02/11/21 04:50 02/11/21 04:50 ABG, PT/INR, D-dimer: ABG ABG pH 7.309 pH Units (7.350-7.450) L 02/10/21 09:30 ABG pCO2 59.4 mm Hg 02/10/21 09:30 ABG pO2 71.2 mm Hg (80.0-90.0) L 02/10/21 09:30 ABG O2 Saturation 92.4 % (95.0-99.0) L 02/10/21 09:30 PT/INR, D-dimer PT 13.6 Sec. (12.2-14.9) 02/04/21 14:52 INR 1.06 (0.87-1.13) 02/04/21 14:52 D-Dimer 1884.49 ng/mlDDU (0-234) H 01/28/21 08:46 Abnormal lab findings: Abnormal Labs 01/17/21 01/17/21 01/17/21 09:25 16:41 16:41 WBC RBC 5.23 H Hgb MCV 76 L MCH 24 L RDW Plt Count Lymph % (Auto) 9.4 L [place] % (Auto) Lymph # (Auto) 0.8 L Seg Neutrophils % 85.4 H Seg Neuts % (Manual) Lymphocytes % (Manual) Seg Neutrophils # Seg Neutrophils # Man D-Dimer ABG pH ABG pO2 ABG HCO3 ABG O2 Saturation ABG Base Excess ABG Hemoglobin Oxyhemoglobin Sodium 128 L Chloride 90.8 L Carbon Dioxide BUN Creatinine Glucose 372 H POC Glucose Calcium Ferritin AST 98 H Lactate Dehydrogenase C-Reactive Protein Total Protein Albumin 3.2 L Coronavirus (PCR) Positive A 01/17/21 01/17/2101/17/21 17:46 17:46 17:46 WBC RBC Hgb MCV MCH RDW Plt Count Lymph % (Auto) [place] % (Auto) Lymph # (Auto) Seg Neutrophils % Seg Neuts % (Manual) Lymphocytes % (Manual) Seg Neutrophils # Seg Neutrophils # Man D-Dimer 1058.54 H ABG pH ABG pO2 ABG HCO3 ABG O2 Saturation ABG Base Excess ABG Hemoglobin Oxyhemoglobin Sodium Chloride Carbon Dioxide BUN Creatinine Glucose 369 H POC Glucose Calcium Ferritin 668.4 H AST Lactate Dehydrogenase 519 H C-Reactive Protein 19.20 H Total Protein Albumin Coronavirus (PCR) 01/18/21 01/18/21 01/19/21 09:01 17:18 05:11 WBC 14.2 H RBC Hgb MCV 74 L MCH 23 L RDW Plt Count Lymph % (Auto) [place] % (Auto) Lymph # (Auto) Seg Neutrophils % Seg Neuts % (Manual) 88.0 H Lymphocytes % (Manual) 10.0 L Seg Neutrophils # Seg Neutrophils # Man 12.5 H D-Dimer ABG pH 7.461 H ABG pO2 53.1 L ABG HCO3 ABG O2 Saturation 89.4 L ABG Base Excess ABG Hemoglobin Oxyhemoglobin 88.0 L Sodium 132 L Chloride 93.6 L Carbon Dioxide BUN 18 H Creatinine Glucose 367 H POC Glucose Calcium 7.8 L Ferritin AST Lactate Dehydrogenase C-Reactive Protein Total Protein Albumin Coronavirus (PCR) 01/19/21 01/19/21 01/19/21 05:11 11:06 14:43 WBC RBC Hgb MCV MCH RDW Plt Count Lymph % (Auto) [place] % (Auto) Lymph # (Auto) Seg Neutrophils % Seg Neuts % (Manual) Lymphocytes % (Manual) Seg Neutrophils # Seg Neutrophils # Man D-Dimer ABG pH ABG pO2 ABG HCO3 ABG O2 Saturation ABG Base Excess ABG Hemoglobin Oxyhemoglobin Sodium Chloride Carbon Dioxide BUN 18 H Creatinine Glucose 304 H 379 H POC Glucose 382 H Calcium 8.3 L Ferritin AST 92 H 96 H Lactate Dehydrogenase C-Reactive Protein Total Protein Albumin 3.0 L 3.0 L Coronavirus (PCR) 01/19/21 01/19/21 01/20/21 16:18 22:18 07:31 WBC RBC Hgb MCV MCH RDW Plt Count Lymph % (Auto) [place] % (Auto) Lymph # (Auto) Seg Neutrophils % Seg Neuts % (Manual) Lymphocytes % (Manual) Seg Neutrophils # Seg Neutrophils # Man D-Dimer ABG pH ABG pO2 ABG HCO3 ABG O2 Saturation ABG Base Excess ABG Hemoglobin Oxyhemoglobin Sodium Chloride Carbon Dioxide BUN Creatinine Glucose POC Glucose 374 H 341 H 344 H Calcium Ferritin AST Lactate Dehydrogenase C-Reactive Protein Total Protein Albumin Coronavirus (PCR) 01/20/21 01/20/21 01/20/21 07:33 12:14 13:54 WBC RBC Hgb MCV MCH RDW Plt Count Lymph % (Auto) [place] % (Auto) Lymph # (Auto) Seg Neutrophils % Seg Neuts % (Manual) Lymphocytes % (Manual) Seg Neutrophils # Seg Neutrophils # Man D-Dimer ABG pH ABG pO2 ABG HCO3 ABG O2 Saturation ABG Base Excess ABG Hemoglobin Oxyhemoglobin Sodium Chloride Carbon Dioxide BUN 32 H 31 H Creatinine Glucose 343 H 396 H POC Glucose 365 H Calcium Ferritin AST 57 H 54 H Lactate Dehydrogenase C-Reactive Protein Total Protein 8.3 H Albumin 2.7 L 3.1 L Coronavirus (PCR) 01/20/21 01/20/21 01/21/21 18:28 21:25 04:45 WBC RBC Hgb MCV MCH RDW Plt Count Lymph % (Auto) [place] % (Auto) Lymph # (Auto) Seg Neutrophils % Seg Neuts % (Manual) Lymphocytes % (Manual) Seg Neutrophils # Seg Neutrophils # Man D-Dimer ABG pH ABG pO2 ABG HCO3 ABG O2 Saturation ABG Base Excess ABG Hemoglobin Oxyhemoglobin Sodium Chloride Carbon Dioxide 31 H BUN 41 H Creatinine Glucose 377 H POC Glucose 403 H 340 H Calcium Ferritin AST Lactate Dehydrogenase C-Reactive Protein Total Protein 8.3 H Albumin 3.0 L Coronavirus (PCR) 01/21/21 01/21/21 01/21/21 04:45 04:45 04:45 WBC RBC Hgb MCV MCH RDW Plt Count Lymph % (Auto) [place] % (Auto) Lymph # (Auto) Seg Neutrophils % Seg Neuts % (Manual) Lymphocytes % (Manual) Seg Neutrophils # Seg Neutrophils # Man D-Dimer > 28087 H ABG pH ABG pO2 ABG HCO3 ABG O2 Saturation ABG Base Excess ABG Hemoglobin Oxyhemoglobin Sodium Chloride Carbon Dioxide BUN Creatinine Glucose POC Glucose Calcium Ferritin 1688.0 H AST Lactate Dehydrogenase 649 H C-Reactive Protein 17.00 H Total Protein Albumin Coronavirus (PCR) 01/21/21 01/21/21 01/21/21 09:45 11:29 12:09 WBC RBC Hgb MCV MCH RDW Plt Count Lymph % (Auto) [place] % (Auto) Lymph # (Auto) Seg Neutrophils % Seg Neuts % (Manual) Lymphocytes % (Manual) Seg Neutrophils # Seg Neutrophils # Man D-Dimer ABG pH ABG pO2 ABG HCO3 ABG O2 Saturation ABG Base Excess ABG Hemoglobin Oxyhemoglobin Sodium 151 H Chloride Carbon Dioxide BUN 40 H Creatinine Glucose 412 H POC Glucose 401 H 372 H Calcium Ferritin AST Lactate Dehydrogenase C-Reactive Protein Total Protein Albumin 3.4 L Coronavirus (PCR) 01/21/21 01/21/21 01/22/21 18:26 21:09 02:00 WBC RBC Hgb MCV MCH RDW Plt Count Lymph % (Auto) [place] % (Auto) Lymph # (Auto) Seg Neutrophils % Seg Neuts % (Manual) Lymphocytes % (Manual) Seg Neutrophils # Seg Neutrophils # Man D-Dimer ABG pH ABG pO2 ABG HCO3 ABG O2 Saturation ABG Base Excess ABG Hemoglobin Oxyhemoglobin Sodium Chloride Carbon Dioxide BUN Creatinine Glucose POC Glucose 376 H 322 H 231 H Calcium Ferritin AST Lactate Dehydrogenase C-Reactive Protein Total Protein Albumin Coronavirus (PCR) 01/22/21 01/22/21 01/22/21 05:24 08:25 08:25 WBC RBC 5.44 H Hgb MCV 75 L MCH 23 L RDW 15.5 H Plt Count Lymph % (Auto) [place] % (Auto) Lymph # (Auto) Seg Neutrophils % Seg Neuts % (Manual) Lymphocytes % (Manual) Seg Neutrophils # Seg Neutrophils # Man D-Dimer ABG pH ABG pO2 ABG HCO3 ABG O2 Saturation ABG Base Excess ABG Hemoglobin Oxyhemoglobin Sodium 155 H Chloride 112.4 H Carbon Dioxide BUN 33 H Creatinine Glucose 274 H POC Glucose 275 H Calcium Ferritin AST Lactate Dehydrogenase C-Reactive Protein Total Protein Albumin Coronavirus (PCR) 01/22/21 01/22/21 01/22/21 11:53 16:03 21:41 WBC RBC Hgb MCV MCH RDW Plt Count Lymph % (Auto) [place] % (Auto) Lymph # (Auto) Seg Neutrophils % Seg Neuts % (Manual) Lymphocytes % (Manual) Seg Neutrophils # Seg Neutrophils # Man D-Dimer ABG pH ABG pO2 ABG HCO3 ABG O2 Saturation ABG Base Excess ABG Hemoglobin Oxyhemoglobin Sodium Chloride Carbon Dioxide BUN Creatinine Glucose POC Glucose 265 H 293 H 279 H Calcium Ferritin AST Lactate Dehydrogenase C-Reactive Protein Total Protein Albumin Coronavirus (PCR) 01/23/21 01/23/21 01/23/21 02:03 05:46 05:59 WBC RBC Hgb MCV MCH RDW Plt Count Lymph % (Auto) [place] % (Auto) Lymph # (Auto) Seg Neutrophils % Seg Neuts % (Manual) Lymphocytes % (Manual) Seg Neutrophils # Seg Neutrophils # Man D-Dimer ABG pH ABG pO2 ABG HCO3 ABG O2 Saturation ABG Base Excess ABG Hemoglobin Oxyhemoglobin Sodium Chloride Carbon Dioxide BUN Creatinine Glucose POC Glucose 268 H 303 H Calcium Ferritin 1116.0 H AST Lactate Dehydrogenase C-Reactive Protein Total Protein Albumin Coronavirus (PCR) 01/23/21 01/23/21 01/23/21 05:59 07:42 09:11 WBC RBC Hgb MCV MCH RDW Plt Count Lymph % (Auto) [place] % (Auto) Lymph # (Auto) Seg Neutrophils % Seg Neuts % (Manual) Lymphocytes % (Manual) Seg Neutrophils # Seg Neutrophils # Man D-Dimer ABG pH ABG pO2 ABG HCO3 ABG O2 Saturation ABG Base Excess ABG Hemoglobin Oxyhemoglobin Sodium Chloride Carbon Dioxide BUN Creatinine Glucose POC Glucose 291 H 285 H Calcium Ferritin AST Lactate Dehydrogenase 680 H C-Reactive Protein 5.80 H Total Protein Albumin Coronavirus (PCR) 01/23/21 01/23/21 01/23/21 14:06 17:05 17:59 WBC RBC Hgb MCV MCH RDW Plt Count Lymph % (Auto) [place] % (Auto) Lymph # (Auto) Seg Neutrophils % Seg Neuts % (Manual) Lymphocytes % (Manual) Seg Neutrophils # Seg Neutrophils # Man D-Dimer ABG pH ABG pO2 ABG HCO3 ABG O2 Saturation ABG Base Excess ABG Hemoglobin Oxyhemoglobin Sodium Chloride Carbon Dioxide BUN Creatinine Glucose POC Glucose 228 H 300 H 278 H Calcium Ferritin AST Lactate Dehydrogenase C-Reactive Protein Total Protein Albumin Coronavirus (PCR) 01/23/21 01/24/21 01/24/21 21:43 02:14 05:15 WBC RBC Hgb MCV MCH RDW Plt Count Lymph % (Auto) [place] % (Auto) Lymph # (Auto) Seg Neutrophils % Seg Neuts % (Manual) Lymphocytes % (Manual) Seg Neutrophils # Seg Neutrophils # Man D-Dimer ABG pH ABG pO2 ABG HCO3 ABG O2 Saturation ABG Base Excess ABG Hemoglobin Oxyhemoglobin Sodium Chloride Carbon Dioxide BUN Creatinine Glucose POC Glucose 223 H 427 H 392 H Calcium Ferritin AST Lactate Dehydrogenase C-Reactive Protein Total Protein Albumin Coronavirus (PCR) 01/24/21 01/24/21 01/24/21 07:03 07:03 09:10 WBC RBC 5.49 H Hgb MCV 75 L MCH 23 L RDW Plt Count Lymph % (Auto) 7.0 L [place] % (Auto) Lymph # (Auto) 0.5 L Seg Neutrophils % 86.1 H Seg Neuts % (Manual) Lymphocytes % (Manual) Seg Neutrophils # Seg Neutrophils # Man D-Dimer ABG pH ABG pO2 ABG HCO3 ABG O2 Saturation ABG Base Excess ABG Hemoglobin Oxyhemoglobin Sodium 149 H Chloride 111.4 H Carbon Dioxide BUN 24 H Creatinine Glucose 339 H POC Glucose 284 H Calcium Ferritin AST Lactate Dehydrogenase C-Reactive Protein Total Protein Albumin Coronavirus (PCR) 01/24/21 01/24/21 01/24/21 13:47 18:30 21:58 WBC RBC Hgb MCV MCH RDW Plt Count Lymph % (Auto) [place] % (Auto) Lymph # (Auto) Seg Neutrophils % Seg Neuts % (Manual) Lymphocytes % (Manual) Seg Neutrophils # Seg Neutrophils # Man D-Dimer ABG pH ABG pO2 ABG HCO3 ABG O2 Saturation ABG Base Excess ABG Hemoglobin Oxyhemoglobin Sodium Chloride Carbon Dioxide BUN Creatinine Glucose POC Glucose 317 H 180 H 262 H Calcium Ferritin AST Lactate Dehydrogenase C-Reactive Protein Total Protein Albumin Coronavirus (PCR) 01/25/21 01/25/21 01/25/21 01:22 05:35 08:36 WBC RBC Hgb MCV MCH RDW Plt Count Lymph % (Auto) [place] % (Auto) Lymph # (Auto) Seg Neutrophils % Seg Neuts % (Manual) Lymphocytes % (Manual) Seg Neutrophils # Seg Neutrophils # Man D-Dimer ABG pH ABG pO2 ABG HCO3 ABG O2 Saturation ABG Base Excess ABG Hemoglobin Oxyhemoglobin Sodium Chloride Carbon Dioxide BUN Creatinine Glucose POC Glucose 280 H 243 H 216 H Calcium Ferritin AST Lactate Dehydrogenase C-Reactive Protein Total Protein Albumin Coronavirus (PCR) 01/25/21 01/25/21 01/25/21 15:14 15:14 15:14 WBC RBC Hgb MCV MCH RDW Plt Count Lymph % (Auto) [place] % (Auto) Lymph # (Auto) Seg Neutrophils % Seg Neuts % (Manual) Lymphocytes % (Manual) Seg Neutrophils # Seg Neutrophils # Man D-Dimer 6312.54 H ABG pH ABG pO2 ABG HCO3 ABG O2 Saturation ABG Base Excess ABG Hemoglobin Oxyhemoglobin Sodium 146 H Chloride 108.1 H Carbon Dioxide BUN 19 H Creatinine Glucose 287 H POC Glucose Calcium 8.3 L Ferritin 869.5 H AST Lactate Dehydrogenase 685 H C-Reactive Protein Total Protein Albumin Coronavirus (PCR) 01/25/21 01/25/21 01/26/21 16:06 21:18 01:47 WBC RBC Hgb MCV MCH RDW Plt Count Lymph % (Auto) [place] % (Auto) Lymph # (Auto) Seg Neutrophils % Seg Neuts % (Manual) Lymphocytes % (Manual) Seg Neutrophils # Seg Neutrophils # Man D-Dimer ABG pH ABG pO2 ABG HCO3 ABG O2 Saturation ABG Base Excess ABG Hemoglobin Oxyhemoglobin Sodium Chloride Carbon Dioxide BUN Creatinine Glucose POC Glucose 267 H 197 H 255 H Calcium Ferritin AST Lactate Dehydrogenase C-Reactive Protein Total Protein Albumin Coronavirus (PCR) 01/26/21 01/26/21 01/26/21 05:23 05:23 05:23 WBC RBC Hgb MCV MCH RDW Plt Count Lymph % (Auto) [place] % (Auto) Lymph # (Auto) Seg Neutrophils % Seg Neuts % (Manual) Lymphocytes % (Manual) Seg Neutrophils # Seg Neutrophils # Man D-Dimer 5809.58 H ABG pH ABG pO2 ABG HCO3 ABG O2 Saturation ABG Base Excess ABG Hemoglobin Oxyhemoglobin Sodium 149 H Chloride 109.3 H Carbon Dioxide BUN 24 H Creatinine Glucose 362 H POC Glucose Calcium Ferritin 877.1 H AST Lactate Dehydrogenase 655 H C-Reactive Protein Total Protein Albumin Coronavirus (PCR) 01/26/21 01/26/21 01/26/21 05:23 06:06 09:28 WBC RBC 5.49 H Hgb MCV 77 L MCH 23 L RDW Plt Count Lymph % (Auto) [place] % (Auto) Lymph # (Auto) 0.8 L Seg Neutrophils % 78.9 H Seg Neuts % (Manual) Lymphocytes % (Manual) Seg Neutrophils # Seg Neutrophils # Man D-Dimer ABG pH ABG pO2 ABG HCO3 ABG O2 Saturation ABG Base Excess ABG Hemoglobin Oxyhemoglobin Sodium Chloride Carbon Dioxide BUN Creatinine Glucose POC Glucose 387 H 308 H Calcium Ferritin AST Lactate Dehydrogenase C-Reactive Protein Total Protein Albumin Coronavirus (PCR) 01/26/21 01/26/21 01/27/21 15:56 21:28 02:51 WBC RBC Hgb MCV MCH RDW Plt Count Lymph % (Auto) [place] % (Auto) Lymph # (Auto) Seg Neutrophils % Seg Neuts % (Manual) Lymphocytes % (Manual) Seg Neutrophils # Seg Neutrophils # Man D-Dimer ABG pH ABG pO2 ABG HCO3 ABG O2 Saturation ABG Base Excess ABG Hemoglobin Oxyhemoglobin Sodium Chloride Carbon Dioxide BUN Creatinine Glucose POC Glucose 172 H 316 H 267 H Calcium Ferritin AST Lactate Dehydrogenase C-Reactive Protein Total Protein Albumin Coronavirus (PCR) 01/27/21 01/27/21 01/27/21 04:22 04:22 04:22 WBC RBC Hgb MCV MCH RDW Plt Count Lymph % (Auto) [place] % (Auto) Lymph # (Auto) Seg Neutrophils % Seg Neuts % (Manual) Lymphocytes % (Manual) Seg Neutrophils # Seg Neutrophils # Man D-Dimer 4046.06 H ABG pH ABG pO2 ABG HCO3 ABG O2 Saturation ABG Base Excess ABG Hemoglobin Oxyhemoglobin Sodium Chloride 107.7 H Carbon Dioxide BUN 30 H Creatinine Glucose 281 H POC Glucose Calcium Ferritin 812.2 H AST Lactate Dehydrogenase 570 H C-Reactive Protein Total Protein Albumin Coronavirus (PCR) 01/27/21 01/27/21 01/27/21 04:22 05:55 12:00 WBC RBC 5.15 H Hgb MCV 76 L MCH 23 L RDW 15.5 H Plt Count Lymph % (Auto) 12.7 L [place] % (Auto) Lymph # (Auto) 0.9 L Seg Neutrophils % 81.3 H Seg Neuts % (Manual) Lymphocytes % (Manual) Seg Neutrophils # Seg Neutrophils # Man D-Dimer ABG pH ABG pO2 ABG HCO3 ABG O2 Saturation ABG Base Excess ABG Hemoglobin Oxyhemoglobin Sodium Chloride Carbon Dioxide BUN Creatinine Glucose POC Glucose 275 H 121 H Calcium Ferritin AST Lactate Dehydrogenase C-Reactive Protein Total Protein Albumin Coronavirus (PCR) 01/27/21 01/27/21 01/28/21 17:32 21:23 02:08 WBC RBC Hgb MCV MCH RDW Plt Count Lymph % (Auto) [place] % (Auto) Lymph # (Auto) Seg Neutrophils % Seg Neuts % (Manual) Lymphocytes % (Manual) Seg Neutrophils # Seg Neutrophils # Man D-Dimer ABG pH ABG pO2 ABG HCO3 ABG O2 Saturation ABG Base Excess ABG Hemoglobin Oxyhemoglobin Sodium Chloride Carbon Dioxide BUN Creatinine Glucose POC Glucose 195 H 179 H 210 H Calcium Ferritin AST Lactate Dehydrogenase C-Reactive Protein Total Protein Albumin Coronavirus (PCR) 01/28/21 01/28/21 01/28/21 05:09 08:44 08:46 WBC RBC Hgb MCV MCH RDW Plt Count Lymph % (Auto) [place] % (Auto) Lymph # (Auto) Seg Neutrophils % Seg Neuts % (Manual) Lymphocytes % (Manual) Seg Neutrophils # Seg Neutrophils # Man D-Dimer 1884.49 H ABG pH ABG pO2 ABG HCO3 ABG O2 Saturation ABG Base Excess ABG Hemoglobin Oxyhemoglobin Sodium Chloride Carbon Dioxide BUN Creatinine Glucose POC Glucose 202 H 191 H Calcium Ferritin AST Lactate Dehydrogenase C-Reactive Protein Total Protein Albumin Coronavirus (PCR) 01/28/21 01/28/21 01/28/21 08:46 08:46 12:18 WBC RBC Hgb MCV MCH RDW Plt Count Lymph % (Auto) [place] % (Auto) Lymph # (Auto) Seg Neutrophils % Seg Neuts % (Manual) Lymphocytes % (Manual) Seg Neutrophils # Seg Neutrophils # Man D-Dimer ABG pH ABG pO2 ABG HCO3 ABG O2 Saturation ABG Base Excess ABG Hemoglobin Oxyhemoglobin Sodium Chloride Carbon Dioxide BUN Creatinine Glucose POC Glucose 221 H Calcium Ferritin 797.7 H AST Lactate Dehydrogenase 556 H C-Reactive Protein Total Protein Albumin Coronavirus (PCR) 01/28/21 01/28/21 01/29/21 18:21 21:45 01:48 WBC RBC Hgb MCV MCH RDW Plt Count Lymph % (Auto) [place] % (Auto) Lymph # (Auto) Seg Neutrophils % Seg Neuts % (Manual) Lymphocytes % (Manual) Seg Neutrophils # Seg Neutrophils # Man D-Dimer ABG pH ABG pO2 ABG HCO3 ABG O2 Saturation ABG Base Excess ABG Hemoglobin Oxyhemoglobin Sodium Chloride Carbon Dioxide BUN Creatinine Glucose POC Glucose 214 H 148 H 248 H Calcium Ferritin AST Lactate Dehydrogenase C-Reactive Protein Total Protein Albumin Coronavirus (PCR) 01/29/21 01/29/21 01/29/21 05:17 10:17 11:39 WBC RBC Hgb MCV MCH RDW Plt Count Lymph % (Auto) [place] % (Auto) Lymph # (Auto) Seg Neutrophils % Seg Neuts % (Manual) Lymphocytes % (Manual) Seg Neutrophils # Seg Neutrophils # Man D-Dimer ABG pH ABG pO2 ABG HCO3 ABG O2 Saturation ABG Base Excess ABG Hemoglobin Oxyhemoglobin Sodium Chloride Carbon Dioxide BUN Creatinine Glucose POC Glucose 256 H 193 H 177 H Calcium Ferritin AST Lactate Dehydrogenase C-Reactive Protein Total Protein Albumin Coronavirus (PCR) 01/29/21 01/29/21 01/30/21 18:06 20:24 06:07 WBC RBC Hgb MCV MCH RDW Plt Count Lymph % (Auto) [place] % (Auto) Lymph # (Auto) Seg Neutrophils % Seg Neuts % (Manual) Lymphocytes % (Manual) Seg Neutrophils # Seg Neutrophils # Man D-Dimer ABG pH ABG pO2 ABG HCO3 ABG O2 Saturation ABG Base Excess ABG Hemoglobin Oxyhemoglobin Sodium Chloride Carbon Dioxide BUN Creatinine Glucose POC Glucose 107 H 114 H 114 H Calcium Ferritin AST Lactate Dehydrogenase C-Reactive Protein Total Protein Albumin Coronavirus (PCR) 01/30/21 01/30/21 01/30/21 12:08 16:11 21:19 WBC RBC Hgb MCV MCH RDW Plt Count Lymph % (Auto) [place] % (Auto) Lymph # (Auto) Seg Neutrophils % Seg Neuts % (Manual) Lymphocytes % (Manual) Seg Neutrophils # Seg Neutrophils # Man D-Dimer ABG pH ABG pO2 ABG HCO3 ABG O2 Saturation ABG Base Excess ABG Hemoglobin Oxyhemoglobin Sodium Chloride Carbon Dioxide BUN Creatinine Glucose POC Glucose 178 H 142 H 244 H Calcium Ferritin AST Lactate Dehydrogenase C-Reactive Protein Total Protein Albumin Coronavirus (PCR) 01/31/21 01/31/21 01/31/21 05:30 06:42 07:50 WBC RBC Hgb MCV MCH RDW Plt Count Lymph % (Auto) [place] % (Auto) Lymph # (Auto) Seg Neutrophils % Seg Neuts % (Manual) Lymphocytes % (Manual) Seg Neutrophils # Seg Neutrophils # Man D-Dimer ABG pH ABG pO2 ABG HCO3 ABG O2 Saturation ABG Base Excess ABG Hemoglobin Oxyhemoglobin Sodium Chloride Carbon Dioxide BUN 20 H Creatinine Glucose 160 H POC Glucose 164 H 152 H Calcium 8.0 L Ferritin AST Lactate Dehydrogenase C-Reactive Protein Total Protein Albumin Coronavirus (PCR) 01/31/21 01/31/21 01/31/21 11:40 16:37 21:01 WBC RBC Hgb MCV MCH RDW Plt Count Lymph % (Auto) [place] % (Auto) Lymph # (Auto) Seg Neutrophils % Seg Neuts % (Manual) Lymphocytes % (Manual) Seg Neutrophils # Seg Neutrophils # Man D-Dimer ABG pH ABG pO2 ABG HCO3 ABG O2 Saturation ABG Base Excess ABG Hemoglobin Oxyhemoglobin Sodium Chloride Carbon Dioxide BUN Creatinine Glucose POC Glucose 129 H 141 H 125 H Calcium Ferritin AST Lactate Dehydrogenase C-Reactive Protein Total Protein Albumin Coronavirus (PCR) 02/01/21 02/01/21 02/01/21 06:26 11:15 16:11 WBC RBC Hgb MCV MCH RDW Plt Count Lymph % (Auto) [place] % (Auto) Lymph # (Auto) Seg Neutrophils % Seg Neuts % (Manual) Lymphocytes % (Manual) Seg Neutrophils # Seg Neutrophils # Man D-Dimer ABG pH ABG pO2 ABG HCO3 ABG O2 Saturation ABG Base Excess ABG Hemoglobin Oxyhemoglobin Sodium Chloride Carbon Dioxide BUN Creatinine Glucose POC Glucose 136 H 260 H 240 H Calcium Ferritin AST Lactate Dehydrogenase C-Reactive Protein Total Protein Albumin Coronavirus (PCR) 02/01/21 02/02/21 02/02/21 22:32 07:15 07:56 WBC 3.1 L RBC Hgb MCV 75 L MCH 23 L RDW Plt Count Lymph % (Auto) 44.9 H [place] % (Auto) 9.2 H Lymph # (Auto) Seg Neutrophils % Seg Neuts % (Manual) Lymphocytes % (Manual) Seg Neutrophils # 1.3 L Seg Neutrophils # Man D-Dimer ABG pH ABG pO2 ABG HCO3 ABG O2 Saturation ABG Base Excess ABG Hemoglobin Oxyhemoglobin Sodium Chloride Carbon Dioxide BUN Creatinine Glucose POC Glucose 298 H 164 H Calcium Ferritin AST Lactate Dehydrogenase C-Reactive Protein Total Protein Albumin Coronavirus (PCR) 02/02/21 02/02/21 02/02/21 07:56 11:35 16:07 WBC RBC Hgb MCV MCH RDW Plt Count Lymph % (Auto) [place] % (Auto) Lymph # (Auto) Seg Neutrophils % Seg Neuts % (Manual) Lymphocytes % (Manual) Seg Neutrophils # Seg Neutrophils # Man D-Dimer ABG pH ABG pO2 ABG HCO3 ABG O2 Saturation ABG Base Excess ABG Hemoglobin Oxyhemoglobin Sodium Chloride Carbon Dioxide 31 H BUN Creatinine 0.4 L Glucose 159 H POC Glucose 297 H 252 H Calcium 8.2 L Ferritin AST Lactate Dehydrogenase C-Reactive Protein Total Protein Albumin Coronavirus (PCR) 02/02/21 02/03/21 02/03/21 22:33 17:04 22:17 WBC RBC Hgb MCV MCH RDW Plt Count Lymph % (Auto) [place] % (Auto) Lymph # (Auto) Seg Neutrophils % Seg Neuts % (Manual) Lymphocytes % (Manual) Seg Neutrophils # Seg Neutrophils # Man D-Dimer ABG pH ABG pO2 ABG HCO3 ABG O2 Saturation ABG Base Excess ABG Hemoglobin Oxyhemoglobin Sodium Chloride Carbon Dioxide BUN Creatinine Glucose POC Glucose 257 H 247 H 278 H Calcium Ferritin AST Lactate Dehydrogenase C-Reactive Protein Total Protein Albumin Coronavirus (PCR) 02/04/21 02/04/21 02/04/21 05:41 07:55 11:56 WBC RBC Hgb MCV MCH RDW Plt Count Lymph % (Auto) [place] % (Auto) Lymph # (Auto) Seg Neutrophils % Seg Neuts % (Manual) Lymphocytes % (Manual) Seg Neutrophils # Seg Neutrophils # Man D-Dimer ABG pH ABG pO2 ABG HCO3 ABG O2 Saturation ABG Base Excess ABG Hemoglobin Oxyhemoglobin Sodium Chloride Carbon Dioxide 31 H BUN 19 H Creatinine 0.5 L Glucose 184 H POC Glucose 182 H 227 H Calcium Ferritin AST Lactate Dehydrogenase C-Reactive Protein Total Protein Albumin Coronavirus (PCR) 02/04/21 02/04/21 02/04/21 12:45 14:52 16:45 WBC 4.0 L RBC Hgb MCV 77 L MCH 24 L RDW 15.5 H Plt Count Lymph % (Auto) [place] % (Auto) Lymph # (Auto) Seg Neutrophils % Seg Neuts % (Manual) Lymphocytes % (Manual) Seg Neutrophils # Seg Neutrophils # Man D-Dimer ABG pH ABG pO2 65.6 L ABG HCO3 30.8 H ABG O2 Saturation 94.0 L ABG Base Excess 5.5 H ABG Hemoglobin 10.3 L Oxyhemoglobin 92.3 L Sodium Chloride Carbon Dioxide BUN Creatinine Glucose POC Glucose 194 H Calcium Ferritin AST Lactate Dehydrogenase C-Reactive Protein Total Protein Albumin Coronavirus (PCR) 02/04/21 02/05/21 02/05/21 22:00 06:55 07:49 WBC RBC Hgb 10.0 L MCV MCH RDW Plt Count Lymph % (Auto) [place] % (Auto) Lymph # (Auto) Seg Neutrophils % Seg Neuts % (Manual) Lymphocytes % (Manual) Seg Neutrophils # Seg Neutrophils # Man D-Dimer ABG pH ABG pO2 ABG HCO3 ABG O2 Saturation ABG Base Excess ABG Hemoglobin Oxyhemoglobin Sodium Chloride Carbon Dioxide BUN Creatinine Glucose POC Glucose 281 H 204 H Calcium Ferritin AST Lactate Dehydrogenase C-Reactive Protein Total Protein Albumin Coronavirus (PCR) 02/05/21 02/05/21 02/05/21 11:23 16:13 16:22 WBC RBC Hgb 10.0 L MCV MCH RDW Plt Count Lymph % (Auto) [place] % (Auto) Lymph # (Auto) Seg Neutrophils % Seg Neuts % (Manual) Lymphocytes % (Manual) Seg Neutrophils # Seg Neutrophils # Man D-Dimer ABG pH ABG pO2 ABG HCO3 ABG O2 Saturation ABG Base Excess ABG Hemoglobin Oxyhemoglobin Sodium Chloride Carbon Dioxide BUN Creatinine Glucose POC Glucose 264 H 202 H Calcium Ferritin AST Lactate Dehydrogenase C-Reactive Protein Total Protein Albumin Coronavirus (PCR) 02/05/21 02/06/21 02/06/21 21:14 04:43 04:43 WBC 4.0 L RBC Hgb 10.0 L MCV 76 L MCH 23 L RDW 15.7 H Plt Count Lymph % (Auto) [place] % (Auto) Lymph # (Auto) Seg Neutrophils % Seg Neuts % (Manual) Lymphocytes % (Manual) Seg Neutrophils # Seg Neutrophils # Man D-Dimer ABG pH ABG pO2 ABG HCO3 ABG O2 Saturation ABG Base Excess ABG Hemoglobin Oxyhemoglobin Sodium Chloride Carbon Dioxide 32 H BUN Creatinine 0.4 L Glucose 163 H POC Glucose 180 H Calcium 8.3 L Ferritin AST Lactate Dehydrogenase C-Reactive Protein Total Protein Albumin Coronavirus (PCR) 02/06/21 02/06/21 02/06/21 08:01 11:44 16:11 WBC RBC Hgb MCV MCH RDW Plt Count Lymph % (Auto) [place] % (Auto) Lymph # (Auto) Seg Neutrophils % Seg Neuts % (Manual) Lymphocytes % (Manual) Seg Neutrophils # Seg Neutrophils # Man D-Dimer ABG pH ABG pO2 ABG HCO3 ABG O2 Saturation ABG Base Excess ABG Hemoglobin Oxyhemoglobin Sodium Chloride Carbon Dioxide BUN Creatinine Glucose POC Glucose 155 H 215 H 247 H Calcium Ferritin AST Lactate Dehydrogenase C-Reactive Protein Total Protein Albumin Coronavirus (PCR) 02/06/21 02/07/21 02/07/21 23:40 08:01 11:54 WBC RBC Hgb MCV MCH RDW Plt Count Lymph % (Auto) [place] % (Auto) Lymph # (Auto) Seg Neutrophils % Seg Neuts % (Manual) Lymphocytes % (Manual) Seg Neutrophils # Seg Neutrophils # Man D-Dimer ABG pH ABG pO2 ABG HCO3 ABG O2 Saturation ABG Base Excess ABG Hemoglobin Oxyhemoglobin Sodium Chloride Carbon Dioxide BUN Creatinine Glucose POC Glucose 267 H 233 H 227 H Calcium Ferritin AST Lactate Dehydrogenase C-Reactive Protein Total Protein Albumin Coronavirus (PCR) 02/07/21 02/07/21 02/07/21 15:48 20:58 20:58 WBC RBC Hgb MCV MCH RDW Plt Count Lymph % (Auto) [place] % (Auto) Lymph # (Auto) Seg Neutrophils % Seg Neuts % (Manual) Lymphocytes % (Manual) Seg Neutrophils # Seg Neutrophils # Man D-Dimer ABG pH ABG pO2 ABG HCO3 ABG O2 Saturation ABG Base Excess ABG Hemoglobin Oxyhemoglobin Sodium Chloride Carbon Dioxide 32 H BUN Creatinine 0.5 L 0.5 L Glucose 236 H POC Glucose 257 H Calcium 8.3 L Ferritin AST Lactate Dehydrogenase C-Reactive Protein Total Protein Albumin Coronavirus (PCR) 02/07/21 02/08/21 02/08/21 22:10 04:46 04:46 WBC 4.2 L RBC Hgb 9.7 L MCV 78 L MCH 24 L RDW 17.9 H Plt Count 110 L Lymph % (Auto) [place] % (Auto) Lymph # (Auto) Seg Neutrophils % Seg Neuts % (Manual) Lymphocytes % (Manual) Seg Neutrophils # Seg Neutrophils # Man D-Dimer ABG pH ABG pO2 ABG HCO3 ABG O2 Saturation ABG Base Excess ABG Hemoglobin Oxyhemoglobin Sodium Chloride Carbon Dioxide BUN Creatinine 0.4 L Glucose 220 H POC Glucose 241 H Calcium 8.0 L Ferritin AST Lactate Dehydrogenase C-Reactive Protein Total Protein Albumin Coronavirus (PCR) 02/08/21 02/08/21 02/08/21 08:05 11:36 15:44 WBC RBC Hgb MCV MCH RDW Plt Count Lymph % (Auto) [place] % (Auto) Lymph # (Auto) Seg Neutrophils % Seg Neuts % (Manual) Lymphocytes % (Manual) Seg Neutrophils # Seg Neutrophils # Man D-Dimer ABG pH ABG pO2 ABG HCO3 ABG O2 Saturation ABG Base Excess ABG Hemoglobin Oxyhemoglobin Sodium Chloride Carbon Dioxide BUN Creatinine Glucose POC Glucose 208 H 200 H 149 H Calcium Ferritin AST Lactate Dehydrogenase C-Reactive Protein Total Protein Albumin Coronavirus (PCR) 02/08/21 02/09/21 02/09/21 21:35 04:24 07:39 WBC RBC Hgb MCV MCH RDW Plt Count Lymph % (Auto) [place] % (Auto) Lymph # (Auto) Seg Neutrophils % Seg Neuts % (Manual) Lymphocytes % (Manual) Seg Neutrophils # Seg Neutrophils # Man D-Dimer ABG pH ABG pO2 ABG HCO3 ABG O2 Saturation ABG Base Excess ABG Hemoglobin Oxyhemoglobin Sodium Chloride Carbon Dioxide BUN Creatinine 0.4 L Glucose 205 H POC Glucose 249 H 205 H Calcium 8.1 L Ferritin AST Lactate Dehydrogenase C-Reactive Protein Total Protein Albumin Coronavirus (PCR) 02/09/21 02/09/21 02/09/21 11:53 16:52 21:26 WBC RBC Hgb MCV MCH RDW Plt Count Lymph % (Auto) [place] % (Auto) Lymph # (Auto) Seg Neutrophils % Seg Neuts % (Manual) Lymphocytes % (Manual) Seg Neutrophils # Seg Neutrophils # Man D-Dimer ABG pH ABG pO2 ABG HCO3 ABG O2 Saturation ABG Base Excess ABG Hemoglobin Oxyhemoglobin Sodium Chloride Carbon Dioxide BUN Creatinine Glucose POC Glucose 303 H 164 H 257 H Calcium Ferritin AST Lactate Dehydrogenase C-Reactive Protein Total Protein Albumin Coronavirus (PCR) 02/10/21 02/10/21 02/10/21 09:30 09:38 11:45 WBC RBC Hgb MCV MCH RDW Plt Count Lymph % (Auto) [place] % (Auto) Lymph # (Auto) Seg Neutrophils % Seg Neuts % (Manual) Lymphocytes % (Manual) Seg Neutrophils # Seg Neutrophils # Man D-Dimer ABG pH 7.309 L ABG pO2 71.2 L ABG HCO3 29.1 H ABG O2 Saturation 92.4 L ABG Base Excess ABG Hemoglobin 11.2 L Oxyhemoglobin 90.2 L Sodium Chloride Carbon Dioxide BUN Creatinine Glucose POC Glucose 240 H 257 H Calcium Ferritin AST Lactate Dehydrogenase C-Reactive Protein Total Protein Albumin Coronavirus (PCR) 02/10/21 02/10/21 02/11/21 17:12 21:26 04:50 WBC RBC Hgb MCV 78 L MCH 24 L RDW 20.3 H Plt Count 133 L Lymph % (Auto) [place] % (Auto) Lymph # (Auto) Seg Neutrophils % Seg Neuts % (Manual) Lymphocytes % (Manual) Seg Neutrophils # Seg Neutrophils # Man D-Dimer ABG pH ABG pO2 ABG HCO3 ABG O2 Saturation ABG Base Excess ABG Hemoglobin Oxyhemoglobin Sodium Chloride Carbon Dioxide BUN Creatinine Glucose POC Glucose 178 H 362 H Calcium Ferritin AST Lactate Dehydrogenase C-Reactive Protein Total Protein Albumin Coronavirus (PCR) 02/11/21 02/11/21 02/11/21 08:02 11:52 17:14 WBC RBC Hgb MCV MCH RDW Plt Count Lymph % (Auto) [place] % (Auto) Lymph # (Auto) Seg Neutrophils % Seg Neuts % (Manual) Lymphocytes % (Manual) Seg Neutrophils # Seg Neutrophils # Man D-Dimer ABG pH ABG pO2 ABG HCO3 ABG O2 Saturation ABG Base Excess ABG Hemoglobin Oxyhemoglobin Sodium Chloride Carbon Dioxide BUN Creatinine Glucose POC Glucose 263 H 433 H 212 H Calcium Ferritin AST Lactate Dehydrogenase C-Reactive Protein Total Protein Albumin Coronavirus (PCR) 02/11/21 21:39 WBC RBC Hgb MCV MCH RDW Plt Count Lymph % (Auto) [place] % (Auto) Lymph # (Auto) Seg Neutrophils % Seg Neuts % (Manual) Lymphocytes % (Manual) Seg Neutrophils # Seg Neutrophils # Man D-Dimer ABG pH ABG pO2 ABG HCO3 ABG O2 Saturation ABG Base Excess ABG Hemoglobin Oxyhemoglobin Sodium Chloride Carbon Dioxide BUN Creatinine Glucose POC Glucose 248 H Calcium Ferritin AST Lactate Dehydrogenase C-Reactive Protein Total Protein Albumin Coronavirus (PCR)
[2021-02-12] MEDS: MIRTAZAPINE 15 MG TAB PO SCH (22:05)
[2021-02-12] MEDS: INSULIN GLARGINE 100 UNITS/ML SUB-Q SCH (22:11)
[2021-02-13] MEDS: methylPREDNISolone Sod Succinate 40 MG/1 ML INJ IV SCH ×3 (06:24→23:12)
[2021-02-13] MEDS: IPRATROPIUM/ALBUTEROL SULFATE 3 ML AMPUL.NEB IH SCH ×3 (08:29→21:03)
--- NOTE | 2021-02-13 08:56 | Progress Note ---
Assessment and Plan Assessment and plan: This is a 55-year-old female with schizophrenia who presented to [facility] on 01/18 for shortness of breath, cough, subjective fever and not feeling well for the last couple days with known COVID-19 exposure. While in the emergency room patient was switched from non rebreather mask to high flow nasal cannula and his CTA chest showed no acute pulmonary embolism. Patient was admitted to the hospital service as a COVID-19 PUI with consults to CCM, infectious disease, psych. Severe COVID-19 pneumonia Acute hypoxic respiratory failure Obesity Schizophrenia Leukocytosis Hyperglycemia Schizophrenia Hypernatremia Hypercholermia -CCM, infectious disease, psychiatry consulted, appreciate recommendations -COVID-19 PCR positive -Droplet/contact isolation -Remdesivir, azithromycin, ceftriaxone, dexamethasone (twice daily dosing) -s/p Actemra -Wean supplemental oxygen as tolerated, pulmonary hygiene -Prone as tolerated -Trend COVID-19 inflammatory markers for risk stratification, CBC, CMP -SSI, Lantus -01/18 bilateral lower extremity Doppler ultrasound negative for DVT -01/17 CTA shows no evidence of pulmonary embolism, extensive bilateral pneumonia, hepatomegaly with hepatic steatosis 01/18/2021 -Acute hypoxic respiratory failure requiring high flow oxygen 40 L. Nebulizer treatment -Patient is admitted for suspected Covid pneumonia. Patient is on dexamethasone, COVID-19 test is pending. Patient is on empiric antibiotics. -ID consulted, will consult pulmonary. -Patient has hyponatremia yesterday and I will repeat and if it is low I will manage accordingly -Patient has elevated D-dimer and CTA chest and bilateral Doppler ultrasound of the lower extremities pending 01/19/2021 -Acute hypoxic respiratory failure currently on BiPAP, nebulizer treatment. I will put in orders to transfer to [facility] yesterday but there was no bed. -Patient is positive for Covid and she is on Decadron and remdesivir. Actemra was ordered on 01/19/2021 -ID evaluated the patient and recommend to continue Decadron and remdesivir, also to continue ceftriaxone and azithromycin for 5 days because of the elevated procalcitonin level. Pulmonary was consulted and recommend to continue current management and add Lasix -CTA chest was done and significant for bilateral pulmonary opacities, negative for PE, Doppler ultrasound of the lower extremities was negative for DVT. -Prognosis is guarded. -Patient is currently on BiPAP and she was agitated and trying to take off the BiPAP, I put the patient on restraints. Discussed with powerhouse attendant to transfer the patient to IMCU and if there is no bed she need to be transferred to CCU. 01/20: Patient received 5 mg of Haldol for severe agitation and refusal to keep high flow nasal cannula in place. [facility] ordered Lasix again. Psych was consulted today. Patient was on BiPAP therapy all night and RT attempted to give her a break patient is on high flow nasal cannula however she did not keep this in place and was paced back on BiPAP after receiving Haldol. She was started on Lantus today. 01/21: Patient is on BiPAP and on time examination was on 20/10 100% FiO2. Patient was started on Lantus. Psych consult completed and started on Haldol p.o. twice daily and Mirtazepin PO daily. No acute events reported overnight. Patient's D-dimer is greater than 10,000 started on prophylactic Lovenox as recent CTA chest and bilateral lower extremity Doppler ultrasound were negative. 01/22: Patient has been taken off BiPAP therapy and placed on high flow nasal cannula. Patient has been downgraded to IMCU. Patient's hyponatremia and hypochloremia have worsened. 01/23: Patient was on BiPAP overnight with FiO2 85% and IPAP 20/EPAP 10. Patient currently with high flow nasal cannula 40 L O2 with an FiO2 of 100%. Continue remdesivir and dexamethasone. Patient is s/p Actemra on 01/20. Continue empiric antibiotics per ID recommendations. Continue anticoagulation per protocol. 01/24: Patient is tachycardic and hypertensive and [facility] has opted to add amlo dipine. Patient remains on 40 L 100% high flow nasal cannula. Continue remdesivir and dexamethasone. Patient is s/p Actemra on 01/20. Continue empiric antibiotics per ID recommendations. Continue anticoagulation per protocol. 01/25: Patient currently with high flow nasal cannula 40 L/min with FiO2 100%. Continue dexamethasone. Patient has completed remdesivir and s/p Actemra on 01/20. Continue full dose anticoagulation given high elevated D-dimer. Continue to trend inflammatory markers. Prognosis remains guarded. 01/26: Patient currently with high flow nasal cannula 35 L/min and FiO2 90%. Continue dexamethasone. Patient has completed remdesivir and s/p Actemra on 01/20. Continue full dose anticoagulation given high elevated D-dimer. Continue to trend inflammatory markers. Prognosis remains guarded. 01/27: Patient currently with high flow nasal cannula/Vapotherm 35 L/min O2 with F iO2 90%. Patient has completed remdesivir and s/p Actemra on 01/20. Continue full dose anticoagulation given high elevated D-dimer. Continue to trend inflammatory markers. Prognosis remains guarded. 01/28; Patient currently with high flow nasal cannula/Vapotherm 35 L/min O2 with FiO2 90%. Patient has completed remdesivir and s/p Actemra on 01/20. Continue full dose anticoagulation given high elevated D-dimer. Continue to trend inflammatory markers. Prognosis remains guarded. 01/29; patient is currently on 35 L of high flow oxygen. Prognosis guarded. Patient can be transferred to regular floor. 01/30/2021; patient is currently on 35 L of high flow oxygen, FiO2 of 65%. Patient has flat affect and did not talk to me. Patient refused most of her p.o. medications. Patient finished remdesivir, steroid. 01/31/2021; patient is on 35 L of high flow oxygen, FiO2 65%. Patient was calm and cooperative and communicative today. pulmonary is following. Patient finished remdesivir and steroid. 02/01/2021; patient was on 40 L of high flow oxygen.. I have called and discussed with her mother yesterday. Her mother told me patient was last followed at [facility] and I called facility and they told me medication she was on and I put these medications. Patient refused to eat so I put the patient on NG tube feeding for medications. Prognosis is guarded. 02/02/2021; patient is on 4 L of high flow oxygen with FiO2 of 60%. Her outpatient psych medications were reconciled. Patient was taking medications and as needed NG tube. Pulmonary is following the patient. 02/03/21: Patient noted with mild epistaxis this morning we will order some Afrin to help. Continue current management patient is on 35 L high flow. No worsening distress but still with intermittent confusion sometimes takes off the oxygen. Will repeat a trial of Lasix and monitor renal function with a.m. labs. Plan discussed with nurse at bedside. I also encouraged proning again. 02/04: Unfortunately still with hypoxia desaturating required increased to 50 L and 70% will gradually taper down. Patient due to her underlying psych history of schizophrenia is noncompliant. Daughter is working on getting guardianship over the patient. This will likely be a slow process nevertheless we will still obtain a CT of the head to ensure no other pathology. We will get an ABG and a chest x-ray today. 02/05: Patient overnight had an episode where she coughed up blood. H&H has remained stable. She has been since discontinued from full dose anticoagulants to DVT prophylactic dose. Chest x-ray shows mild worsening of congestion. Will discuss with pulmonary if patient will benefit from BiPAP during hours of sleep. Still awaiting information from family on prior psych medications that the hayden nguyen was on psych review with psychiatry team as her mental status remains a deterrent and an impediment to oxygen management. We will give a trial dose of Lasix x 3 days. Will transfer to [facility] for closer monitoring 02/06: Continue supportive care, 2 more days of lasix, monitor BMP closely wean oxygen as tolerated, pulmonary input noted 02/07: Continues on High flow. Refusing medications, still with severe hypoxia, Discussed with Psych to re-evaluate the patient. 02/08: Unfortunately patient was not seen by psych yesterday and I still do not have home medication listed I asked the family and they promised to bring her in. We discussed with nursing staff to ask again. We will also reconsult psych as her underlying psych condition is precluding improvement due to her refusal of medical treatments. Patient continues on high flow 10 today will be to further wean down if tolerated. She is still refusing prone position 02/09: Patient remains on oxygen, not compliance, continues on restraints to assist with compliance, will try to wean again 02/10: Restart lasix, discussed with Associate Pastor considering starting on PrECEDEX, Monitor electrolytes. Prognosis is guarded. 02/11/2021; patient is on Lasix, Precedex and Solu-Medrol 40 mg every 8 hours. Patient's blood sugar is elevated and I increase Lantus from 20-25 nightly, give her a dose of 10 units of Lantus now. Will monitor blood sugar. Prognosis very poor. 02/12/2021; patient is on 40 L of high flow oxygen, 94% FiO2. Pulmonary is following the patient and recommendations noted. Dr Mancilla Discussed with the patient and the mother about the plan of care and the high risk of her condition and refusal of care. 02/13/2021; patient was on 30 L of high flow oxygen with FiO2 of 90%. Pulmonary is following the patient. Continue IMC care. Prognosis is guarded. History Interval history: Patient was seen and evaluated this morning Patient was calm and cooperative, patient was alert and oriented Patient was on 30 L of oxygen with FiO2 of 90% Hospitalist Physical - Physical exam Narrative exam: Patient was 30 L of oxygen with FiO2 of 90%. The patient appeared well nourished and normally developed. Vital signs as documented. Head exam is unremarkable. No scleral icterus . Neck is without jugular venous distension, thyromegaly, or carotid bruits. Lungs decreased air entry on both lungs Cardiac exam reveals regular rate and Rhythm. Abdominal exam reveals normal bowel sounds, nontender, no organomegaly. Extremities are nonedematous and both femoral and pedal pulses are normal. WEB GRAPHIC DESIGNER: Patient was alert and oriented. - Constitutional Vitals: Temp Pulse Resp BP Pulse Ox 97.9 F 107 H 25 H 158/86 96 02/13/21 08:00 02/13/21 08:27 02/13/21 08:27 02/13/21 06:01 02/13/21 08:00 General appearance: Present: no acute distress, well-nourished HEART Score - HEART Score Troponin: Troponin T < 0.010 ng/mL (0.00-0.029) 01/17/21 16:41 Results - Labs CBC & Chem 7: 02/11/21 04:50 02/11/21 04:50 Labs: Laboratory Last Values WBC 6.4 K/mm3 (4.5-11.0) 02/11/21 04:50 RBC 4.53 M/mm3 (3.65-5.03) 02/11/21 04:50 Hgb 10.9 gm/dl (10.1-14.3) 02/11/21 04:50 Hct 35.5 % (30.3-42.9) 02/11/21 04:50 MCV 78 fl (79-97) L 02/11/21 04:50 MCH 24 pg (28-32) L 02/11/21 04:50 MCHC 31 % (30-34) 02/11/21 04:50 RDW 20.3 % (13.2-15.2) H 02/11/21 04:50 Plt Count 133 K/mm3 (140-440) L 02/11/21 04:50 Lymph % (Auto) 44.9 % (13.4-35.0) H 02/02/21 07:56 [place] % (Auto) 9.2 % (0.0-7.3) H 02/02/21 07:56 Eos % (Auto) 3.6 % (0.0-4.3) 02/02/21 07:56 Baso % (Auto) 0.3 % (0.0-1.8) 02/02/21 07:56 Lymph # (Auto) 1.4 K/mm3 (1.2-5.4) 02/02/21 07:56 [place] # (Auto) 0.3 K/mm3 (0.0-0.8) 02/02/21 07:56 Eos # (Auto) 0.1 K/mm3 (0.0-0.4) 02/02/21 07:56 Baso # (Auto) 0.0 K/mm3 (0.0-0.1) 02/02/21 07:56 Add Manual Diff Complete 01/19/21 05:11 Total Counted 100 01/19/21 05:11 Seg Neutrophils % 42.0 % (40.0-70.0) 02/02/21 07:56 Seg Neuts % (Manual) 88.0 % (40.0-70.0) H 01/19/21 05:11 Lymphocytes % (Manual) 10.0 % (13.4-35.0) L 01/19/21 05:11 Monocytes % (Manual) 2.0 % (0.0-7.3) 01/19/21 05:11 Nucleated RBC % Not Reportable 01/19/21 05:11 Seg Neutrophils # 1.3 K/mm3 (1.8-7.7) L 02/02/21 07:56 Seg Neutrophils # Man 12.5 K/mm3 (1.8-7.7) H 01/19/21 05:11 Band Neutrophils # 0.0 K/mm3 01/19/21 05:11 Lymphocytes # (Manual) 1.4 K/mm3 (1.2-5.4) 01/19/21 05:11 Abs React Lymphs (Man) 0.0 K/mm3 01/19/21 05:11 Monocytes # (Manual) 0.3 K/mm3 (0.0-0.8) 01/19/21 05:11 Eosinophils # (Manual) 0.0 K/mm3 (0.0-0.4) 01/19/21 05:11 Basophils # (Manual) 0.0 K/mm3 (0.0-0.1) 01/19/21 05:11 Metamyelocytes # 0.0 K/mm3 01/19/21 05:11 Myelocytes # 0.0 K/mm3 01/19/21 05:11 Promyelocytes # 0.0 K/mm3 01/19/21 05:11 Blast Cells # 0.0 K/mm3 01/19/21 05:11 WBC Morphology Not Reportable 01/19/21 05:11 Hypersegmented Neuts Not Reportable 01/19/21 05:11 Hyposegmented Neuts Not Reportable 01/19/21 05:11 Hypogranular Neuts Not Reportable 01/19/21 05:11 Smudge Cells Not Reportable 01/19/21 05:11 Toxic Granulation Not Reportable 01/19/21 05:11 Toxic Vacuolation Not Reportable 01/19/21 05:11 Dohle Bodies Not Reportable 01/19/21 05:11 Pelger-Huet Anomaly Not Reportable 01/19/21 05:11 Inder Rods Not Reportable 01/19/21 05:11 Platelet Estimate Consistent w auto 01/19/21 05:11 Clumped Platelets Not Reportable 01/19/21 05:11 Plt Clumps, EDTA Not Reportable 01/19/21 05:11 Large Platelets Not Reportable 01/19/21 05:11 Giant Platelets Not Reportable 01/19/21 05:11 Platelet Satelliting Not Reportable 01/19/21 05:11 Plt Morphology Comment Not Reportable 01/19/21 05:11 RBC Morphology Not Reportable 01/19/21 05:11 Dimorphic RBCs Not Reportable 01/19/21 05:11 Polychromasia Not Reportable 01/19/21 05:11 Hypochromasia 1+ 01/19/21 05:11 Poikilocytosis Not Reportable 01/19/21 05:11 Anisocytosis Not Reportable 01/19/21 05:11 Microcytosis Not Reportable 01/19/21 05:11 Macrocytosis Not Reportable 01/19/21 05:11 Spherocytes Not Reportable 01/19/21 05:11 Pappenheimer Bodies Not Reportable 01/19/21 05:11 Sickle Cells Not Reportable 01/19/21 05:11 Target Cells Not Reportable 01/19/21 05:11 Tear Drop Cells Not Reportable 01/19/21 05:11 Ovalocytes Not Reportable 01/19/21 05:11 Helmet Cells Not Reportable 01/19/21 05:11 [place] Bodies Not Reportable 01/19/21 05:11 [place] Rings Not Reportable 01/19/21 05:11 [place] Cells Not Reportable 01/19/21 05:11 Bite Cells Not Reportable 01/19/21 05:11 Crenated Cell Not Reportable 01/19/21 05:11 Elliptocytes Not Reportable 01/19/21 05:11 Acanthocytes (Spur) Not Reportable 01/19/21 05:11 Rouleaux Not Reportable 01/19/21 05:11 Hemoglobin C Crystals Not Reportable 01/19/21 05:11 Schistocytes Not Reportable 01/19/21 05:11 Malaria parasites Not Reportable 01/19/21 05:11 Chai Bodies Not Reportable 01/19/21 05:11 Hem Pathologist Commnt No 01/19/21 05:11 PT 13.6 Sec. (12.2-14.9) 02/04/21 14:52 INR 1.06 (0.87-1.13) 02/04/21 14:52 APTT 30.7 Sec. (24.2-36.6) 02/04/21 14:52 D-Dimer 1884.49 ng/mlDDU (0-234) H 01/28/21 08:46 ABG pH 7.309 pH Units (7.350-7.450) L 02/10/21 09:30 ABG pCO2 59.4 mm Hg 02/10/21 09:30 ABG pO2 71.2 mm Hg (80.0-90.0) L 02/10/21 09:30 ABG HCO3 29.1 mmol/L (20.0-26.0) H 02/10/21 09:30 ABG O2 Saturation 92.4 % (95.0-99.0) L 02/10/21 09:30 ABG O2 Content 14.2 (0.0-44) 02/10/21 09:30 ABG Base Excess 1.8 mmol/L (-2.0-3.0) 02/10/21 09:30 ABG Hemoglobin 11.2 gm/dl (12.0-16.0) L 02/10/21 09:30 ABG Carboxyhemoglobin 1.8 % (0.0-5.0) 02/10/21 09:30 ABG Methemoglobin 0.6 % (0.0-1.5) 02/10/21 09:30 Oxyhemoglobin 90.2 % (95.0-99.0) L 02/10/21 09:30 FiO2 100 % 02/10/21 09:30 Sodium 142 mmol/L (137-145) 02/09/21 04:24 Potassium 3.9 mmol/L (3.6-5.0) 02/09/21 04:24 Chloride 105.5 mmol/L (98-107) 02/09/21 04:24 Carbon Dioxide 29 mmol/L (22-30) 02/09/21 04:24 Anion Gap 11 mmol/L 02/09/21 04:24 BUN 11 mg/dL (7-17) 02/09/21 04:24 Creatinine 0.7 mg/dL (0.6-1.2) D 02/11/21 04:50 Estimated GFR > 60 ml/min 02/11/21 04:50 BUN/Creatinine Ratio 28 % 02/09/21 04:24 Glucose 205 mg/dL (65-100) H 02/09/21 04:24 POC Glucose 238 mg/dL (70-105) H 02/12/21 16:29 Lactic Acid 1.70 mmol/L (0.7-2.0) 01/17/21 16:41 Calcium 8.1 mg/dL (8.4-10.2) L 02/09/21 04:24 Ferritin 797.7 ng/mL (10.0-200.0) H 01/28/21 08:46 Total Bilirubin 0.30 mg/dL (0.1-1.2) 01/21/21 11:29 AST 34 units/L (5-40) 01/21/21 11:29 ALT 38 units/L (7-56) 01/21/21 11:29 Alkaline Phosphatase 117 units/L (35-129) 01/21/21 11:29 Ammonia 43.0 umol/L (25-60) 02/04/21 14:52 Lactate Dehydrogenase 556 units/L (91-180) H 01/28/21 08:46 Troponin T < 0.010 ng/mL (0.00-0.029) 01/17/21 16:41 C-Reactive Protein 0.20 mg/dL (0.00-1.30) 01/28/21 08:46 NT-Pro-B Natriuret Pep 40.88 pg/mL (0-900) 01/17/21 16:41 Total Protein 7.3 g/dL (6.3-8.2) 01/21/21 11:29 Albumin 3.4 g/dL (3.9-5) L 01/21/21 11:29 Albumin/Globulin Ratio 0.9 % 01/21/21 11:29 Procalcitonin 0.39 ng/mL (<0.15) 01/17/21 17:46 Coronavirus (PCR) Negative (Negative) 02/11/21 09:10 Estrada/IV: Voiding Method External Female Catheter Active Medications - Current Medications Current Medications: Generic Name Dose Route Start Last Admin Trade Name Freq PRN Reason Stop Dose Admin Acetaminophen 650 mg 01/18/21 00:36 02/11/21 22:49 Acetaminophen 325 Mg Tab PO 650 mg Q4H PRN Administration Pain MILD(1-3)/Fever >100.5/PAN Albuterol/Ipratropium 1 ampul 02/01/21 14:00 02/13/21 08:29 Ipratropium/Albuterol Sulfate 3 Ml Ampul.Neb IH 1 ampul TIDRT PJ Administration Apixaban 2.5 mg 02/04/21 22:00 02/12/21 22:04 Apixaban 2.5 Mg Tab PO 2.5 mg Q12HR PJ Administration Protocol Aripiprazole 15 mg 01/31/21 13:00 02/12/21 11:07 Aripiprazole 15 Mg Tab PO 15 mg QDAY PJ Administration Ascorbic Acid 1,000 mg 02/04/21 10:00 02/12/21 22:05 Ascorbic Acid 500 Mg Tab PO 1,000 mg BID PJ Administration Cholecalciferol 5,000 unit 02/04/21 10:00 02/12/21 12:13 Cholecalciferol (Vit D3) 5,000 Unit Tab PO 5,000 unit DAILY PJ Administration Divalproex Sodium 500 mg 01/31/21 12:00 02/12/21 11:08 Divalproex Er 500 Mg Tab PO 500 mg QDAY PJ Administration Famotidine 20 mg 01/18/21 10:00 02/12/21 22:05 Famotidine 20 Mg Tab PO 20 mg BID PJ Administration Hydralazine HCl 10 mg 01/18/21 00:38 01/24/21 23:12 Hydralazine 20 Mg/1 Ml Inj IV 10 mg Q6H PRN Administration htn Hydromorphone HCl 0.5 mg 01/20/21 11:00 Hydromorphone 1 Mg/1 Ml Inj IV Q6H PRN Pain , Severe (7-10) Hydrophilic Ointment 1 applic 02/03/21 12:00 Petrolatum,White 30 Gm Oint TP PRN PRN Skin Irritation Dexmedetomidine HCl 400 mcg/ 104 mls @ 4.846 mls/hr 02/10/21 11:00 02/13/21 06:24 Sodium Chloride IV 0.2 mcg/kg/hr TITRATE PJ 4.846 mls/hr Administration Protocol 0.2 MCG/KG/HR Insulin Glargine 25 units 02/11/21 22:00 02/12/21 22:11 Insulin Glargine 100 Units/Ml SUB-Q 25 units QHS PJ Administration Insulin Human Lispro 0 unit 02/01/21 11:30 02/12/21 22:34 Insulin Lispro 100 Unit/Ml SUB-Q Not Given ACHS [facility] Protocol Methylprednisolone Sodium Succinate 40 mg 02/10/21 14:00 02/13/21 06:24 Methylprednisolone Sod Succinate 40 Mg/1 Ml Inj IV 40 mg Q8HR PJ Administration Metoprolol Tartrate 12.5 mg 02/01/21 12:00 02/12/21 22:06 Metoprolol Tartrate 25 Mg Tab PO 12.5 mg BID PJ Administration Mirtazapine 7.5 mg 01/21/21 22:00 02/12/21 22:05 Mirtazapine 15 Mg Tab PO 7.5 mg QHS PJ Administration Ondansetron HCl 4 mg 01/18/21 00:36 Ondansetron 4 Mg/2 Ml Inj IV Q8H PRN Nausea And Vomiting Oxymetazoline HCl 2 spray 02/03/21 12:00 02/03/21 13:17 Oxymetazoline 0.05% Nasal [place] NS 2 spray Q12H PRN Administration Congestion Paliperidone 6 mg 01/31/21 13:00 02/12/21 12:10 Paliperidone Er 3 Mg Tab PO 6 mg QDAY PJ Administration Sodium Chloride 10 ml 01/18/21 10:00 02/12/21 22:10 Sodium Chloride 0.9% 10 Ml Flush Syringe IV 10 ml BID PJ Administration Sodium Chloride 10 ml 01/18/21 00:36 Sodium Chloride 0.9% 10 Ml Flush Syringe IV PRN PRN LINE FLUSH Zinc Sulfate 220 mg 02/04/21 10:00 02/12/21 12:12 Zinc Sulfate 220 Mg Cap PO 220 mg QDAY PJ Administration Nutrition/Malnutrition Assess - Dietary Evaluation Nutrition/Malnutrition Findings: Nutrition Notes Start: 01/24/21 10:40 Freq: Status: Active Protocol: Document 02/11/21 12:24 VINAY (Rec: 02/11/21 12:35 VINAY [id number]) Co-Sign 02/11/21 12:24 Nutrition Notes Initial or Follow up Reassessment Current Diagnosis Respiratory Failure Other Pertinent Diagnosis pneu, COVID-19(+), AMS Current Diet Cardiac/Consistent CHO Labs/Tests 02/09 BG 205 Pertinent Medications Lasix Solumedrol Insulin vitamin C vitamin D3 zinc Height 5 ft 4 in Weight 93.2 kg [place] Body Weight (kg) 54.54 BMI 35.2 Weight Status Obese Subjective/Other Information F/U for stable intakes. Per RN , pt consumed 100% PO/ONS intakes this AM. Per chart, pt has average of 67% intakes. Per chart, avoiding intubation d/t high mortality risk in morbid obesity. Percent of energy/protein needs met: 100%/78% (PO and ONS) Burn Absent Trauma Absent GI Symptoms None Current % PO Good (75-100%) Minimum of two criteria No Energy Intake (non-severe) <75% Estimated Energy Requirement >7 days #1 Nutrition Diagnosis Inadequate oral intake As Evidenced by Signs and Symptoms pt consuming 67% meals and 100 % ONS Diagnosis Progress(for reassessment Improved documentation) Is patient on ventilator? No Is Patient Ambulatory and/or Out of Bed No REE-([place]-confined to bed) 1812.660 Kcal/Kg value to use for calculation 15 Approximate Energy Requirements Using 1398 kcal/Kg Calculation Used for Recommendations Kcal/kg Additional Notes PRO needs: 59-74g (0.8-1g/kg AdBW 74 kg) Fluid needs: 1 mL/kcal or per MD Nutrition Intervention Change Diet Order: Continue current Add Supplement/Snack (indicate name/kcal Glucerna BID /protein ) Provides kCal: 440 Provides Protein (gm) 20 Goal #1 Meet at least 75% of energy and protein needs via PO and ONS intakes Anticipated Discharge Needs: Cardiac/Consistent CHO Follow-Up By: 02/13/21 Additional Comments F/U for stable PO/ONS intakes
[2021-02-13] MEDS: INSULIN LISPRO 100 UNIT/ML SUB-Q SCH ×4 (09:33→23:13)
[2021-02-13] MEDS ORDERED: FUROSEMIDE 40 MG/4 ML INJ IV ONE (10:56)
[2021-02-13] MEDS: ASCORBIC ACID 500 MG TAB PO SCH ×2 (11:04→23:12)
[2021-02-13] MEDS: DIVALPROEX ER 500 MG TAB PO SCH (11:04)
[2021-02-13] MEDS: CHOLECALCIFEROL (VIT D3) 5,000 UNIT TAB PO SCH (11:04)
[2021-02-13] MEDS: APIXABAN 2.5 MG TAB PO SCH ×2 (11:05→23:12)
[2021-02-13] MEDS: METOPROLOL TARTRATE 25 MG TAB PO SCH ×2 (11:05→23:13)
[2021-02-13] MEDS: PALIPERIDONE ER 3 MG TAB PO SCH (11:05)
[2021-02-13] MEDS: ARIPiprazole 15 MG TAB PO SCH (11:05)
[2021-02-13] MEDS: FAMOTIDINE 20 MG TAB PO SCH ×2 (11:05→23:12)
[2021-02-13] MEDS: ZINC SULFATE 220 MG CAP PO SCH (11:35)
--- NOTE | 2021-02-13 13:56 | Progress Note ---
Assessment and Plan 55 y/o female admitted with acute respiratory failure secondary to pneumonia, positive for Sars CoV2 02/13/21: ordered more lasix for today. Monitor strict I/O. Prone if patient will allow. Continue steroids. 02/12/18: continue lasix therapy daily. Prone if possible. Guarded prongosis. continue steroids 02/11/21: IMS has ordered lasix daily for 3 days, will continue to monitor. May need to give an additional dose later tonight. Long discussion at bedside this am about he importance of wearing bipap at night and what that means to her overall health. Will discuss with family too. Overall prognosis is very guarded. Will do our best to not intubate this patient given her morbid obesity as this would increase her mortality rate tremendously. Please continue to document refusal of therapy when appropriate. 02/10/21: Lasix today, 40 IV. Will attempt precedex to see if this will help with mental state and cooperation in care. Will also restart steroids but use solumedrol 40q8 dosing. May need to consider adding back the Haldol PRN as well. Guarded prognosis. Will attempt our best to not intubate this patient as her mortality would be extremely high if intubated given her morbid obesity. 02/02/21: Lasix again today. Patient refuses to prone. Guarded prognosis. 02/01/21: Will give another 40 of lasix today. Will speak with RT about being more aggressive with weaning of oxygen. Prone if possible. 01/31/21: Increased lasix to 40 today. Prone if possible. 01/30/21: Lasix 20mg IV today. Continue Antipsychotic therapy management. Prone as tolerated if patient willing. 01/29/21: Will give lasix again today. Will change Haldol to IM since patient is refusing PO meds. 01/28/21: Will give lasix again today. Continue all other therapies. Prone if patient will and tolerate. STeroids. Guarded prognosis. 01/20/21: Gave Haldol 5 and patient has calmed down and become more appropriate, allowing us to place bipap back on. COntinue steroids and remdesivir therapy. Doubt patient will be able to prone successfully. Will try lasix today again to see if this helps. Very very guarded prognosis. 01/19/21: Continue decadron, suggest increase given patient body habitus to BID. ID consult for Remdesivir therapy and to see if she is a candidate for Actemra. Prone as tolerated during the day and sleep prone at night. Will give lasix again today. Guarded prognosis. 1. Prone 2. Lasix 3. Agree with steroids 4. Follow up COVID testing Guarded prognosis Subjective Date of service: 02/13/21 Principal diagnosis: Covid-19 Interval history: Still on HFNC but down to 30 and 90 Objective Vital Signs - 12hr 02/12/21 02/12/21 02/13/21 23:00 23:28 00:00 Temperature 97.2 F L Pulse Rate 88 97 H Pulse Rate [ 88 From Monitor] Pulse Rate [ Posterior Bilateral Throughout] Respiratory 18 28 H Rate Respiratory Rate [Posterior Bilateral Throughout] Blood Pressure 152/84 153/86 O2 Sat by Pulse 97 96 Oximetry 02/13/21 02/13/21 02/13/21 00:11 01:00 02:00 Temperature Pulse Rate 79 74 103 H Pulse Rate [ From Monitor] Pulse Rate [ Posterior Bilateral Throughout] Respiratory 19 22 Rate Respiratory Rate [Posterior Bilateral Throughout] Blood Pressure 149/75 136/76 O2 Sat by Pulse 96 97 Oximetry 02/13/21 02/13/21 02/13/21 03:01 04:00 04:01 Temperature 98.9 F Pulse Rate 117 H 128 H Pulse Rate [ From Monitor] Pulse Rate [ Posterior Bilateral Throughout] Respiratory 23 26 H Rate Respiratory Rate [Posterior Bilateral Throughout] Blood Pressure 136/76 136/76 O2 Sat by Pulse 95 Oximetry 02/13/21 02/13/21 02/13/21 04:40 05:00 06:01 Temperature Pulse Rate 75 70 64 Pulse Rate [ From Monitor] Pulse Rate [ Posterior Bilateral Throughout] Respiratory 15 17 Rate Respiratory Rate [Posterior Bilateral Throughout] Blood Pressure 150/87 158/86 O2 Sat by Pulse 96 99 Oximetry 02/13/21 02/13/21 02/13/21 07:00 08:00 08:27 Temperature 97.9 F Pulse Rate 72 112 H Pulse Rate [ From Monitor] Pulse Rate [ 107 H Posterior Bilateral Throughout] Respiratory 19 28 H Rate Respiratory 25 H Rate [Posterior Bilateral Throughout] Blood Pressure 170/90 167/80 O2 Sat by Pulse 99 93 Oximetry 02/13/21 02/13/21 09:00 10:00 Temperature Pulse Rate 110 H 108 H Pulse Rate [ From Monitor] Pulse Rate [ Posterior Bilateral Throughout] Respiratory 24 24 Rate Respiratory Rate [Posterior Bilateral Throughout] Blood Pressure 146/69 163/89 O2 Sat by Pulse 94 95 Oximetry Constitutional: no acute distress, alert Eyes: non-icteric ENT: oropharynx moist Neck: supple, other (large in circumference) Effort: normal Ascultation: Bilateral: clear, diminished breath sounds Cardiovascular: other (tachy, RR; no mrg) Gastrointestinal: normoactive bowel sounds, soft, non-tender, non-distended Integumentary: normal Extremities: no cyanosis, no edema, pink and warm Neurologic: normal mental status, non-focal exam, pupils equal and round Psychiatric: mood appropriate, affect normal CBC and BMP: 02/11/21 04:50 02/11/21 04:50 ABG, PT/INR, D-dimer: ABG ABG pH 7.309 pH Units (7.350-7.450) L 02/10/21 09:30 ABG pCO2 59.4 mm Hg 02/10/21 09:30 ABG pO2 71.2 mm Hg (80.0-90.0) L 02/10/21 09:30 ABG O2 Saturation 92.4 % (95.0-99.0) L 02/10/21 09:30 PT/INR, D-dimer PT 13.6 Sec. (12.2-14.9) 02/04/21 14:52 INR 1.06 (0.87-1.13) 02/04/21 14:52 D-Dimer 1884.49 ng/mlDDU (0-234) H 01/28/21 08:46 Abnormal lab findings: Abnormal Labs 01/17/21 01/17/21 01/17/21 09:25 16:41 16:41 WBC RBC 5.23 H Hgb MCV 76 L MCH 24 L RDW Plt Count Lymph % (Auto) 9.4 L [place] % (Auto) Lymph # (Auto) 0.8 L Seg Neutrophils % 85.4 H Seg Neuts % (Manual) Lymphocytes % (Manual) Seg Neutrophils # Seg Neutrophils # Man D-Dimer ABG pH ABG pO2 ABG HCO3 ABG O2 Saturation ABG Base Excess ABG Hemoglobin Oxyhemoglobin Sodium 128 L Chloride 90.8 L Carbon Dioxide BUN Creatinine Glucose 372 H POC Glucose Calcium Ferritin AST 98 H Lactate Dehydrogenase C-Reactive Protein Total Protein Albumin 3.2 L Coronavirus (PCR) Positive A 01/17/21 01/17/21 01/17/21 17:46 17:46 17:46 WBC RBC Hgb MCV MCH RDW Plt Count Lymph % (Auto) [place] % (Auto) Lymph # (Auto) Seg Neutrophils % Seg Neuts % (Manual) Lymphocytes % (Manual) Seg Neutrophils # Seg Neutrophils # Man D-Dimer 1058.54 H ABG pH ABG pO2 ABG HCO3 ABG O2 Saturation ABG Base Excess ABG Hemoglobin Oxyhemoglobin Sodium Chloride Carbon Dioxide BUN Creatinine Glucose 369 H POC Glucose Calcium Ferritin 668.4 H AST Lactate Dehydrogenase 519 H C-Reactive Protein 19.20 H Total Protein Albumin Coronavirus (PCR) 01/18/21 01/18/21 01/19/21 09:01 17:18 05:11 WBC 14.2 H RBC Hgb MCV 74 L MCH 23 L RDW Plt Count Lymph % (Auto) [place] % (Auto) Lymph # (Auto) Seg Neutrophils % Seg Neuts % (Manual) 88.0 H Lymphocytes % (Manual) 10.0 L Seg Neutrophils # Seg Neutrophils # Man 12.5 H D-Dimer ABG pH 7.461 H ABG pO2 53.1 L ABG HCO3 ABG O2 Saturation 89.4 L ABG Base Excess ABG Hemoglobin Oxyhemoglobin 88.0 L Sodium 132 L Chloride 93.6 L Carbon Dioxide BUN 18 H Creatinine Glucose 367 H POC Glucose Calcium 7.8 L Ferritin AST Lactate Dehydrogenase C-Reactive Protein Total Protein Albumin Coronavirus (PCR) 01/19/21 01/19/21 01/19/21 05:11 11:06 14:43 WBC RBC Hgb MCV MCH RDW Plt Count Lymph % (Auto) [place] % (Auto) Lymph # (Auto) Seg Neutrophils % Seg Neuts % (Manual) Lymphocytes % (Manual) Seg Neutrophils # Seg Neutrophils # Man D-Dimer ABG pH ABG pO2 ABG HCO3 ABG O2 Saturation ABG Base Excess ABG Hemoglobin Oxyhemoglobin Sodium Chloride Carbon Dioxide BUN 18 H Creatinine Glucose 304 H 379 H POC Glucose 382 H Calcium 8.3 L Ferritin AST 92 H 96 H Lactate Dehydrogenase C-Reactive Protein Total Protein Albumin 3.0 L 3.0 L Coronavirus (PCR) 01/19/21 01/19/21 01/20/21 16:18 22:18 07:31 WBC RBC Hgb MCV MCH RDW Plt Count Lymph % (Auto) [place] % (Auto) Lymph # (Auto) Seg Neutrophils % Seg Neuts % (Manual) Lymphocytes % (Manual) Seg Neutrophils # Seg Neutrophils # Man D-Dimer ABG pH ABG pO2 ABG HCO3 ABG O2 Saturation ABG Base Excess ABG Hemoglobin Oxyhemoglobin Sodium Chloride Carbon Dioxide BUN Creatinine Glucose POC Glucose 374 H 341 H 344 H Calcium Ferritin AST Lactate Dehydrogenase C-Reactive Protein Total Protein Albumin Coronavirus (PCR) 01/20/21 01/20/21 01/20/21 07:33 12:14 13:54 WBC RBC Hgb MCV MCH RDW Plt Count Lymph % (Auto) [place] % (Auto) Lymph # (Auto) Seg Neutrophils % Seg Neuts % (Manual) Lymphocytes % (Manual) Seg Neutrophils # Seg Neutrophils # Man D-Dimer ABG pH ABG pO2 ABG HCO3 ABG O2 Saturation ABG Base Excess ABG Hemoglobin Oxyhemoglobin Sodium Chloride Carbon Dioxide BUN 32 H 31 H Creatinine Glucose 343 H 396 H POC Glucose 365 H Calcium Ferritin AST 57 H 54 H Lactate Dehydrogenase C-Reactive Protein Total Protein 8.3 H Albumin 2.7 L 3.1 L Coronavirus (PCR) 01/20/21 01/20/21 01/21/21 18:28 21:25 04:45 WBC RBC Hgb MCV MCH RDW Plt Count Lymph % (Auto) [place] % (Auto) Lymph # (Auto) Seg Neutrophils % Seg Neuts % (Manual) Lymphocytes % (Manual) Seg Neutrophils # Seg Neutrophils # Man D-Dimer ABG pH ABG pO2 ABG HCO3 ABG O2 Saturation ABG Base Excess ABG Hemoglobin Oxyhemoglobin Sodium Chloride Carbon Dioxide 31 H BUN 41 H Creatinine Glucose 377 H POC Glucose 403 H 340 H Calcium Ferritin AST Lactate Dehydrogenase C-Reactive Protein Total Protein 8.3 H Albumin 3.0 L Coronavirus (PCR) 01/21/21 01/21/21 01/21/21 04:45 04:45 04:45 WBC RBC Hgb MCV MCH RDW Plt Count Lymph % (Auto) [place] % (Auto) Lymph # (Auto) Seg Neutrophils % Seg Neuts % (Manual) Lymphocytes % (Manual) Seg Neutrophils # Seg Neutrophils # Man D-Dimer > 28922 H ABG pH ABG pO2 ABG HCO3 ABG O2 Saturation ABG Base Excess ABG Hemoglobin Oxyhemoglobin Sodium Chloride Carbon Dioxide BUN Creatinine Glucose POC Glucose Calcium Ferritin 1688.0 H AST Lactate Dehydrogenase 649 H C-Reactive Protein 17.00 H Total Protein Albumin Coronavirus (PCR) 01/21/21 01/21/21 01/21/21 09:45 11:29 12:09 WBC RBC Hgb MCV MCH RDW Plt Count Lymph % (Auto) [place] % (Auto) Lymph # (Auto) Seg Neutrophils % Seg Neuts % (Manual) Lymphocytes % (Manual) Seg Neutrophils # Seg Neutrophils # Man D-Dimer ABG pH ABG pO2 ABG HCO3 ABG O2 Saturation ABG Base Excess ABG Hemoglobin Oxyhemoglobin Sodium 151 H Chloride Carbon Dioxide BUN 40 H Creatinine Glucose 412 H POC Glucose 401 H 372 H Calcium Ferritin AST Lactate Dehydrogenase C-Reactive Protein Total Protein Albumin 3.4 L Coronavirus (PCR) 01/21/21 01/21/21 01/22/21 18:26 21:09 02:00 WBC RBC Hgb MCV MCH RDW Plt Count Lymph % (Auto) [place] % (Auto) Lymph # (Auto) Seg Neutrophils % Seg Neuts % (Manual) Lymphocytes % (Manual) Seg Neutrophils # Seg Neutrophils # Man D-Dimer ABG pH ABG pO2 ABG HCO3 ABG O2 Saturation ABG Base Excess ABG Hemoglobin Oxyhemoglobin Sodium Chloride Carbon Dioxide BUN Creatinine Glucose POC Glucose 376 H 322 H 231 H Calcium Ferritin AST Lactate Dehydrogenase C-Reactive Protein Total Protein Albumin Coronavirus (PCR) 01/22/21 01/22/21 01/22/21 05:24 08:25 08:25 WBC RBC 5.44 H Hgb MCV 75 L MCH 23 L RDW 15.5 H Plt Count Lymph % (Auto) [place] % (Auto) Lymph # (Auto) Seg Neutrophils % Seg Neuts % (Manual) Lymphocytes % (Manual) Seg Neutrophils # Seg Neutrophils # Man D-Dimer ABG pH ABG pO2 ABG HCO3 ABG O2 Saturation ABG Base Excess ABG Hemoglobin Oxyhemoglobin Sodium 155 H Chloride 112.4 H Carbon Dioxide BUN 33 H Creatinine Glucose 274 H POC Glucose 275 H Calcium Ferritin AST Lactate Dehydrogenase C-Reactive Protein Total Protein Albumin Coronavirus (PCR) 01/22/21 01/22/21 01/22/21 11:53 16:03 21:41 WBC RBC Hgb MCV MCH RDW Plt Count Lymph % (Auto) [place] % (Auto) Lymph # (Auto) Seg Neutrophils % Seg Neuts % (Manual) Lymphocytes % (Manual) Seg Neutrophils # Seg Neutrophils # Man D-Dimer ABG pH ABG pO2 ABG HCO3 ABG O2 Saturation ABG Base Excess ABG Hemoglobin Oxyhemoglobin Sodium Chloride Carbon Dioxide BUN Creatinine Glucose POC Glucose 265 H 293 H 279 H Calcium Ferritin AST Lactate Dehydrogenase C-Reactive Protein Total Protein Albumin Coronavirus (PCR) 01/23/21 01/23/21 01/23/21 02:03 05:46 05:59 WBC RBC Hgb MCV MCH RDW Plt Count Lymph % (Auto) [place] % (Auto) Lymph # (Auto) Seg Neutrophils % Seg Neuts % (Manual) Lymphocytes % (Manual) Seg Neutrophils # Seg Neutrophils # Man D-Dimer ABG pH ABG pO2 ABG HCO3 ABG O2 Saturation ABG Base Excess ABG Hemoglobin Oxyhemoglobin Sodium Chloride Carbon Dioxide BUN Creatinine Glucose POC Glucose 268 H 303 H Calcium Ferritin 1116.0 H AST Lactate Dehydrogenase C-Reactive Protein Total Protein Albumin Coronavirus (PCR) 01/23/21 01/23/21 01/23/21 05:59 07:42 09:11 WBC RBC Hgb MCV MCH RDW Plt Count Lymph % (Auto) [place] % (Auto) Lymph # (Auto) Seg Neutrophils % Seg Neuts % (Manual) Lymphocytes % (Manual) Seg Neutrophils # Seg Neutrophils # Man D-Dimer ABG pH ABG pO2 ABG HCO3 ABG O2 Saturation ABG Base Excess ABG Hemoglobin Oxyhemoglobin Sodium Chloride Carbon Dioxide BUN Creatinine Glucose POC Glucose 291 H 285 H Calcium Ferritin AST Lactate Dehydrogenase 680 H C-Reactive Protein 5.80 H Total Protein Albumin Coronavirus (PCR) 01/23/21 01/23/21 01/23/21 14:06 17:05 17:59 WBC RBC Hgb MCV MCH RDW Plt Count Lymph % (Auto) [place] % (Auto) Lymph # (Auto) Seg Neutrophils % Seg Neuts % (Manual) Lymphocytes % (Manual) Seg Neutrophils # Seg Neutrophils # Man D-Dimer ABG pH ABG pO2 ABG HCO3 ABG O2 Saturation ABG Base Excess ABG Hemoglobin Oxyhemoglobin Sodium Chloride Carbon Dioxide BUN Creatinine Glucose POC Glucose 228 H 300 H 278 H Calcium Ferritin AST Lactate Dehydrogenase C-Reactive Protein Total Protein Albumin Coronavirus (PCR) 01/23/21 01/24/21 01/24/21 21:43 02:14 05:15 WBC RBC Hgb MCV MCH RDW Plt Count Lymph % (Auto) [place] % (Auto) Lymph # (Auto) Seg Neutrophils % Seg Neuts % (Manual) Lymphocytes % (Manual) Seg Neutrophils # Seg Neutrophils # Man D-Dimer ABG pH ABG pO2 ABG HCO3 ABG O2 Saturation ABG Base Excess ABG Hemoglobin Oxyhemoglobin Sodium Chloride Carbon Dioxide BUN Creatinine Glucose POC Glucose 223 H 427 H 392 H Calcium Ferritin AST Lactate Dehydrogenase C-Reactive Protein Total Protein Albumin Coronavirus (PCR) 01/24/21 01/24/21 01/24/21 07:03 07:03 09:10 WBC RBC 5.49 H Hgb MCV 75 L MCH 23 L RDW Plt Count Lymph % (Auto) 7.0 L [place] % (Auto) Lymph # (Auto) 0.5 L Seg Neutrophils % 86.1 H Seg Neuts % (Manual) Lymphocytes % (Manual) Seg Neutrophils # Seg Neutrophils # Man D-Dimer ABG pH ABG pO2 ABG HCO3 ABG O2 Saturation ABG Base Excess ABG Hemoglobin Oxyhemoglobin Sodium 149 H Chloride 111.4 H Carbon Dioxide BUN 24 H Creatinine Glucose 339 H POC Glucose 284 H Calcium Ferritin AST Lactate Dehydrogenase C-Reactive Protein Total Protein Albumin Coronavirus (PCR) 01/24/21 01/24/21 01/24/21 13:47 18:30 21:58 WBC RBC Hgb MCV MCH RDW Plt Count Lymph % (Auto) [place] % (Auto) Lymph # (Auto) Seg Neutrophils % Seg Neuts % (Manual) Lymphocytes % (Manual) Seg Neutrophils # Seg Neutrophils # Man D-Dimer ABG pH ABG pO2 ABG HCO3 ABG O2 Saturation ABG Base Excess ABG Hemoglobin Oxyhemoglobin Sodium Chloride Carbon Dioxide BUN Creatinine Glucose POC Glucose 317 H 180 H 262 H Calcium Ferritin AST Lactate Dehydrogenase C-Reactive Protein Total Protein Albumin Coronavirus (PCR) 01/25/21 01/25/21 01/25/21 01:22 05:35 08:36 WBC RBC Hgb MCV MCH RDW Plt Count Lymph % (Auto) [place] % (Auto) Lymph # (Auto) Seg Neutrophils % Seg Neuts % (Manual) Lymphocytes % (Manual) Seg Neutrophils # Seg Neutrophils # Man D-Dimer ABG pH ABG pO2 ABG HCO3 ABG O2 Saturation ABG Base Excess ABG Hemoglobin Oxyhemoglobin Sodium Chloride Carbon Dioxide BUN Creatinine Glucose POC Glucose 280 H 243 H 216 H Calcium Ferritin AST Lactate Dehydrogenase C-Reactive Protein Total Protein Albumin Coronavirus (PCR) 01/25/21 01/25/21 01/25/21 15:14 15:14 15:14 WBC RBC Hgb MCV MCH RDW Plt Count Lymph % (Auto) [place] % (Auto) Lymph # (Auto) Seg Neutrophils % Seg Neuts % (Manual) Lymphocytes % (Manual) Seg Neutrophils # Seg Neutrophils # Man D-Dimer 6312.54 H ABG pH ABG pO2 ABG HCO3 ABG O2 Saturation ABG Base Excess ABG Hemoglobin Oxyhemoglobin Sodium 146 H Chloride 108.1 H Carbon Dioxide BUN 19 H Creatinine Glucose 287 H POC Glucose Calcium 8.3 L Ferritin 869.5 H AST Lactate Dehydrogenase 685 H C-Reactive Protein Total Protein Albumin Coronavirus (PCR) 01/25/21 01/25/21 01/26/21 16:06 21:18 01:47 WBC RBC Hgb MCV MCH RDW Plt Count Lymph % (Auto) [place] % (Auto) Lymph # (Auto) Seg Neutrophils % Seg Neuts % (Manual) Lymphocytes % (Manual) Seg Neutrophils # Seg Neutrophils # Man D-Dimer ABG pH ABG pO2 ABG HCO3 ABG O2 Saturation ABG Base Excess ABG Hemoglobin Oxyhemoglobin Sodium Chloride Carbon Dioxide BUN Creatinine Glucose POC Glucose 267 H 197 H 255 H Calcium Ferritin AST Lactate Dehydrogenase C-Reactive Protein Total Protein Albumin Coronavirus (PCR) 01/26/21 01/26/21 01/26/21 05:23 05:23 05:23 WBC RBC Hgb MCV MCH RDW Plt Count Lymph % (Auto) [place] % (Auto) Lymph # (Auto) Seg Neutrophils % Seg Neuts % (Manual) Lymphocytes % (Manual) Seg Neutrophils # Seg Neutrophils # Man D-Dimer 5809.58 H ABG pH ABG pO2 ABG HCO3 ABG O2 Saturation ABG Base Excess ABG Hemoglobin Oxyhemoglobin Sodium 149 H Chloride 109.3 H Carbon Dioxide BUN 24 H Creatinine Glucose 362 H POC Glucose Calcium Ferritin 877.1 H AST Lactate Dehydrogenase 655 H C-Reactive Protein Total Protein Albumin Coronavirus (PCR) 01/26/21 01/26/21 01/26/21 05:23 06:06 09:28 WBC RBC 5.49 H Hgb MCV 77 L MCH 23 L RDW Plt Count Lymph % (Auto) [place] % (Auto) Lymph # (Auto) 0.8 L Seg Neutrophils % 78.9 H Seg Neuts % (Manual) Lymphocytes % (Manual) Seg Neutrophils # Seg Neutrophils # Man D-Dimer ABG pH ABG pO2 ABG HCO3 ABG O2 Saturation ABG Base Excess ABG Hemoglobin Oxyhemoglobin Sodium Chloride Carbon Dioxide BUN Creatinine Glucose POC Glucose 387 H 308 H Calcium Ferritin AST Lactate Dehydrogenase C-Reactive Protein Total Protein Albumin Coronavirus (PCR) 01/26/21 01/26/21 01/27/21 15:56 21:28 02:51 WBC RBC Hgb MCV MCH RDW Plt Count Lymph % (Auto) [place] % (Auto) Lymph # (Auto) Seg Neutrophils % Seg Neuts % (Manual) Lymphocytes % (Manual) Seg Neutrophils # Seg Neutrophils # Man D-Dimer ABG pH ABG pO2 ABG HCO3 ABG O2 Saturation ABG Base Excess ABG Hemoglobin Oxyhemoglobin Sodium Chloride Carbon Dioxide BUN Creatinine Glucose POC Glucose 172 H 316 H 267 H Calcium Ferritin AST Lactate Dehydrogenase C-Reactive Protein Total Protein Albumin Coronavirus (PCR) 01/27/21 01/27/21 01/27/21 04:22 04:22 04:22 WBC RBC Hgb MCV MCH RDW Plt Count Lymph % (Auto) [place] % (Auto) Lymph # (Auto) Seg Neutrophils % Seg Neuts % (Manual) Lymphocytes % (Manual) Seg Neutrophils # Seg Neutrophils # Man D-Dimer 4046.06 H ABG pH ABG pO2 ABG HCO3 ABG O2 Saturation ABG Base Excess ABG Hemoglobin Oxyhemoglobin Sodium Chloride 107.7 H Carbon Dioxide BUN 30 H Creatinine Glucose 281 H POC Glucose Calcium Ferritin 812.2 H AST Lactate Dehydrogenase 570 H C-Reactive Protein Total Protein Albumin Coronavirus (PCR) 01/27/21 01/27/21 01/27/21 04:22 05:55 12:00 WBC RBC 5.15 H Hgb MCV 76 L MCH 23 L RDW 15.5 H Plt Count Lymph % (Auto) 12.7 L [place] % (Auto) Lymph # (Auto) 0.9 L Seg Neutrophils % 81.3 H Seg Neuts % (Manual) Lymphocytes % (Manual) Seg Neutrophils # Seg Neutrophils # Man D-Dimer ABG pH ABG pO2 ABG HCO3 ABG O2 Saturation ABG Base Excess ABG Hemoglobin Oxyhemoglobin Sodium Chloride Carbon Dioxide BUN Creatinine Glucose POC Glucose 275 H 121 H Calcium Ferritin AST Lactate Dehydrogenase C-Reactive Protein Total Protein Albumin Coronavirus (PCR) 01/27/21 01/27/21 01/28/21 17:32 21:23 02:08 WBC RBC Hgb MCV MCH RDW Plt Count Lymph % (Auto) [place] % (Auto) Lymph # (Auto) Seg Neutrophils % Seg Neuts % (Manual) Lymphocytes % (Manual) Seg Neutrophils # Seg Neutrophils # Man D-Dimer ABG pH ABG pO2 ABG HCO3 ABG O2 Saturation ABG Base Excess ABG Hemoglobin Oxyhemoglobin Sodium Chloride Carbon Dioxide BUN Creatinine Glucose POC Glucose 195 H 179 H 210 H Calcium Ferritin AST Lactate Dehydrogenase C-Reactive Protein Total Protein Albumin Coronavirus (PCR) 01/28/21 01/28/21 01/28/21 05:09 08:44 08:46 WBC RBC Hgb MCV MCH RDW Plt Count Lymph % (Auto) [place] % (Auto) Lymph # (Auto) Seg Neutrophils % Seg Neuts % (Manual) Lymphocytes % (Manual) Seg Neutrophils # Seg Neutrophils # Man D-Dimer 1884.49 H ABG pH ABG pO2 ABG HCO3 ABG O2 Saturation ABG Base Excess ABG Hemoglobin Oxyhemoglobin Sodium Chloride Carbon Dioxide BUN Creatinine Glucose POC Glucose 202 H 191 H Calcium Ferritin AST Lactate Dehydrogenase C-Reactive Protein Total Protein Albumin Coronavirus (PCR) 01/28/21 01/28/21 01/28/21 08:46 08:46 12:18 WBC RBC Hgb MCV MCH RDW Plt Count Lymph % (Auto) [place] % (Auto) Lymph # (Auto) Seg Neutrophils % Seg Neuts % (Manual) Lymphocytes % (Manual) Seg Neutrophils # Seg Neutrophils # Man D-Dimer ABG pH ABG pO2 ABG HCO3 ABG O2 Saturation ABG Base Excess ABG Hemoglobin Oxyhemoglobin Sodium Chloride Carbon Dioxide BUN Creatinine Glucose POC Glucose 221 H Calcium Ferritin 797.7 H AST Lactate Dehydrogenase 556 H C-Reactive Protein Total Protein Albumin Coronavirus (PCR) 01/28/21 01/28/21 01/29/21 18:21 21:45 01:48 WBC RBC Hgb MCV MCH RDW Plt Count Lymph % (Auto) [place] % (Auto) Lymph # (Auto) Seg Neutrophils % Seg Neuts % (Manual) Lymphocytes % (Manual) Seg Neutrophils # Seg Neutrophils # Man D-Dimer ABG pH ABG pO2 ABG HCO3 ABG O2 Saturation ABG Base Excess ABG Hemoglobin Oxyhemoglobin Sodium Chloride Carbon Dioxide BUN Creatinine Glucose POC Glucose 214 H 148 H 248 H Calcium Ferritin AST Lactate Dehydrogenase C-Reactive Protein Total Protein Albumin Coronavirus (PCR) 01/29/21 01/29/21 01/29/21 05:17 10:17 11:39 WBC RBC Hgb MCV MCH RDW Plt Count Lymph % (Auto) [place] % (Auto) Lymph # (Auto) Seg Neutrophils % Seg Neuts % (Manual) Lymphocytes % (Manual) Seg Neutrophils # Seg Neutrophils # Man D-Dimer ABG pH ABG pO2 ABG HCO3 ABG O2 Saturation ABG Base Excess ABG Hemoglobin Oxyhemoglobin Sodium Chloride Carbon Dioxide BUN Creatinine Glucose POC Glucose 256 H 193 H 177 H Calcium Ferritin AST Lactate Dehydrogenase C-Reactive Protein Total Protein Albumin Coronavirus (PCR) 01/29/21 01/29/21 01/30/21 18:06 20:24 06:07 WBC RBC Hgb MCV MCH RDW Plt Count Lymph % (Auto) [place] % (Auto) Lymph # (Auto) Seg Neutrophils % Seg Neuts % (Manual) Lymphocytes % (Manual) Seg Neutrophils # Seg Neutrophils # Man D-Dimer ABG pH ABG pO2 ABG HCO3 ABG O2 Saturation ABG Base Excess ABG Hemoglobin Oxyhemoglobin Sodium Chloride Carbon Dioxide BUN Creatinine Glucose POC Glucose 107 H 114 H 114 H Calcium Ferritin AST Lactate Dehydrogenase C-Reactive Protein Total Protein Albumin Coronavirus (PCR) 01/30/21 01/30/21 01/30/21 12:08 16:11 21:19 WBC RBC Hgb MCV MCH RDW Plt Count Lymph % (Auto) [place] % (Auto) Lymph # (Auto) Seg Neutrophils % Seg Neuts % (Manual) Lymphocytes % (Manual) Seg Neutrophils # Seg Neutrophils # Man D-Dimer ABG pH ABG pO2 ABG HCO3 ABG O2 Saturation ABG Base Excess ABG Hemoglobin Oxyhemoglobin Sodium Chloride Carbon Dioxide BUN Creatinine Glucose POC Glucose 178 H 142 H 244 H Calcium Ferritin AST Lactate Dehydrogenase C-Reactive Protein Total Protein Albumin Coronavirus (PCR) 01/31/21 01/31/21 01/31/21 05:30 06:42 07:50 WBC RBC Hgb MCV MCH RDW Plt Count Lymph % (Auto) [place] % (Auto) Lymph # (Auto) Seg Neutrophils % Seg Neuts % (Manual) Lymphocytes % (Manual) Seg Neutrophils # Seg Neutrophils # Man D-Dimer ABG pH ABG pO2 ABG HCO3 ABG O2 Saturation ABG Base Excess ABG Hemoglobin Oxyhemoglobin Sodium Chloride Carbon Dioxide BUN 20 H Creatinine Glucose 160 H POC Glucose 164 H 152 H Calcium 8.0 L Ferritin AST Lactate Dehydrogenase C-Reactive Protein Total Protein Albumin Coronavirus (PCR) 01/31/21 01/31/21 01/31/21 11:40 16:37 21:01 WBC RBC Hgb MCV MCH RDW Plt Count Lymph % (Auto) [place] % (Auto) Lymph # (Auto) Seg Neutrophils % Seg Neuts % (Manual) Lymphocytes % (Manual) Seg Neutrophils # Seg Neutrophils # Man D-Dimer ABG pH ABG pO2 ABG HCO3 ABG O2 Saturation ABG Base Excess ABG Hemoglobin Oxyhemoglobin Sodium Chloride Carbon Dioxide BUN Creatinine Glucose POC Glucose 129 H 141 H 125 H Calcium Ferritin AST Lactate Dehydrogenase C-Reactive Protein Total Protein Albumin Coronavirus (PCR) 02/01/21 02/01/21 02/01/21 06:26 11:15 16:11 WBC RBC Hgb MCV MCH RDW Plt Count Lymph % (Auto) [place] % (Auto) Lymph # (Auto) Seg Neutrophils % Seg Neuts % (Manual) Lymphocytes % (Manual) Seg Neutrophils # Seg Neutrophils # Man D-Dimer ABG pH ABG pO2 ABG HCO3 ABG O2 Saturation ABG Base Excess ABG Hemoglobin Oxyhemoglobin Sodium Chloride Carbon Dioxide BUN Creatinine Glucose POC Glucose 136 H 260 H 240 H Calcium Ferritin AST Lactate Dehydrogenase C-Reactive Protein Total Protein Albumin Coronavirus (PCR) 02/01/21 02/02/21 02/02/21 22:32 07:15 07:56 WBC 3.1 L RBC Hgb MCV 75 L MCH 23 L RDW Plt Count Lymph % (Auto) 44.9 H [place] % (Auto) 9.2 H Lymph # (Auto) Seg Neutrophils % Seg Neuts % (Manual) Lymphocytes % (Manual) Seg Neutrophils # 1.3 L Seg Neutrophils # Man D-Dimer ABG pH ABG pO2 ABG HCO3 ABG O2 Saturation ABG Base Excess ABG Hemoglobin Oxyhemoglobin Sodium Chloride Carbon Dioxide BUN Creatinine Glucose POC Glucose 298 H 164 H Calcium Ferritin AST Lactate Dehydrogenase C-Reactive Protein Total Protein Albumin Coronavirus (PCR) 02/02/21 02/02/21 02/02/21 07:56 11:35 16:07 WBC RBC Hgb MCV MCH RDW Plt Count Lymph % (Auto) [place] % (Auto) Lymph # (Auto) Seg Neutrophils % Seg Neuts % (Manual) Lymphocytes % (Manual) Seg Neutrophils # Seg Neutrophils # Man D-Dimer ABG pH ABG pO2 ABG HCO3 ABG O2 Saturation ABG Base Excess ABG Hemoglobin Oxyhemoglobin Sodium Chloride Carbon Dioxide 31 H BUN Creatinine 0.4 L Glucose 159 H POC Glucose 297 H 252 H Calcium 8.2 L Ferritin AST Lactate Dehydrogenase C-Reactive Protein Total Protein Albumin Coronavirus (PCR) 02/02/21 02/03/21 02/03/21 22:33 17:04 22:17 WBC RBC Hgb MCV MCH RDW Plt Count Lymph % (Auto) [place] % (Auto) Lymph # (Auto) Seg Neutrophils % Seg Neuts % (Manual) Lymphocytes % (Manual) Seg Neutrophils # Seg Neutrophils # Man D-Dimer ABG pH ABG pO2 ABG HCO3 ABG O2 Saturation ABG Base Excess ABG Hemoglobin Oxyhemoglobin Sodium Chloride Carbon Dioxide BUN Creatinine Glucose POC Glucose 257 H 247 H 278 H Calcium Ferritin AST Lactate Dehydrogenase C-Reactive Protein Total Protein Albumin Coronavirus (PCR) 02/04/21 02/04/21 02/04/21 05:41 07:55 11:56 WBC RBC Hgb MCV MCH RDW Plt Count Lymph % (Auto) [place] % (Auto) Lymph # (Auto) Seg Neutrophils % Seg Neuts % (Manual) Lymphocytes % (Manual) Seg Neutrophils # Seg Neutrophils # Man D-Dimer ABG pH ABG pO2 ABG HCO3 ABG O2 Saturation ABG Base Excess ABG Hemoglobin Oxyhemoglobin Sodium Chloride Carbon Dioxide 31 H BUN 19 H Creatinine 0.5 L Glucose 184 H POC Glucose 182 H 227 H Calcium Ferritin AST Lactate Dehydrogenase C-Reactive Protein Total Protein Albumin Coronavirus (PCR) 02/04/21 02/04/21 02/04/21 12:45 14:52 16:45 WBC 4.0 L RBC Hgb MCV 77 L MCH 24 L RDW 15.5 H Plt Count Lymph % (Auto) [place] % (Auto) Lymph # (Auto) Seg Neutrophils % Seg Neuts % (Manual) Lymphocytes % (Manual) Seg Neutrophils # Seg Neutrophils # Man D-Dimer ABG pH ABG pO2 65.6 L ABG HCO3 30.8 H ABG O2 Saturation 94.0 L ABG Base Excess 5.5 H ABG Hemoglobin 10.3 L Oxyhemoglobin 92.3 L Sodium Chloride Carbon Dioxide BUN Creatinine Glucose POC Glucose 194 H Calcium Ferritin AST Lactate Dehydrogenase C-Reactive Protein Total Protein Albumin Coronavirus (PCR) 02/04/21 02/05/21 02/05/21 22:00 06:55 07:49 WBC RBC Hgb 10.0 L MCV MCH RDW Plt Count Lymph % (Auto) [place] % (Auto) Lymph # (Auto) Seg Neutrophils % Seg Neuts % (Manual) Lymphocytes % (Manual) Seg Neutrophils # Seg Neutrophils # Man D-Dimer ABG pH ABG pO2 ABG HCO3 ABG O2 Saturation ABG Base Excess ABG Hemoglobin Oxyhemoglobin Sodium Chloride Carbon Dioxide BUN Creatinine Glucose POC Glucose 281 H 204 H Calcium Ferritin AST Lactate Dehydrogenase C-Reactive Protein Total Protein Albumin Coronavirus (PCR) 02/05/21 02/05/21 02/05/21 11:23 16:13 16:22 WBC RBC Hgb 10.0 L MCV MCH RDW Plt Count Lymph % (Auto) [place] % (Auto) Lymph # (Auto) Seg Neutrophils % Seg Neuts % (Manual) Lymphocytes % (Manual) Seg Neutrophils # Seg Neutrophils # Man D-Dimer ABG pH ABG pO2 ABG HCO3 ABG O2 Saturation ABG Base Excess ABG Hemoglobin Oxyhemoglobin Sodium Chloride Carbon Dioxide BUN Creatinine Glucose POC Glucose 264 H 202 H Calcium Ferritin AST Lactate Dehydrogenase C-Reactive Protein Total Protein Albumin Coronavirus (PCR) 02/05/21 02/06/21 02/06/21 21:14 04:43 04:43 WBC 4.0 L RBC Hgb 10.0 L MCV 76 L MCH 23 L RDW 15.7 H Plt Count Lymph % (Auto) [place] % (Auto) Lymph # (Auto) Seg Neutrophils % Seg Neuts % (Manual) Lymphocytes % (Manual) Seg Neutrophils # Seg Neutrophils # Man D-Dimer ABG pH ABG pO2 ABG HCO3 ABG O2 Saturation ABG Base Excess ABG Hemoglobin Oxyhemoglobin Sodium Chloride Carbon Dioxide 32 H BUN Creatinine 0.4 L Glucose 163 H POC Glucose 180 H Calcium 8.3 L Ferritin AST Lactate Dehydrogenase C-Reactive Protein Total Protein Albumin Coronavirus (PCR) 02/06/21 02/06/21 02/06/21 08:01 11:44 16:11 WBC RBC Hgb MCV MCH RDW Plt Count Lymph % (Auto) [place] % (Auto) Lymph # (Auto) Seg Neutrophils % Seg Neuts % (Manual) Lymphocytes % (Manual) Seg Neutrophils # Seg Neutrophils # Man D-Dimer ABG pH ABG pO2 ABG HCO3 ABG O2 Saturation ABG Base Excess ABG Hemoglobin Oxyhemoglobin Sodium Chloride Carbon Dioxide BUN Creatinine Glucose POC Glucose 155 H 215 H 247 H Calcium Ferritin AST Lactate Dehydrogenase C-Reactive Protein Total Protein Albumin Coronavirus (PCR) 02/06/21 02/07/21 02/07/21 23:40 08:01 11:54 WBC RBC Hgb MCV MCH RDW Plt Count Lymph % (Auto) [place] % (Auto) Lymph # (Auto) Seg Neutrophils % Seg Neuts % (Manual) Lymphocytes % (Manual) Seg Neutrophils # Seg Neutrophils # Man D-Dimer ABG pH ABG pO2 ABG HCO3 ABG O2 Saturation ABG Base Excess ABG Hemoglobin Oxyhemoglobin Sodium Chloride Carbon Dioxide BUN Creatinine Glucose POC Glucose 267 H 233 H 227 H Calcium Ferritin AST Lactate Dehydrogenase C-Reactive Protein Total Protein Albumin Coronavirus (PCR) 02/07/21 02/07/21 02/07/21 15:48 20:58 20:58 WBC RBC Hgb MCV MCH RDW Plt Count Lymph % (Auto) [place] % (Auto) Lymph # (Auto) Seg Neutrophils % Seg Neuts % (Manual) Lymphocytes % (Manual) Seg Neutrophils # Seg Neutrophils # Man D-Dimer ABG pH ABG pO2 ABG HCO3 ABG O2 Saturation ABG Base Excess ABG Hemoglobin Oxyhemoglobin Sodium Chloride Carbon Dioxide 32 H BUN Creatinine 0.5 L 0.5 L Glucose 236 H POC Glucose 257 H Calcium 8.3 L Ferritin AST Lactate Dehydrogenase C-Reactive Protein Total Protein Albumin Coronavirus (PCR) 02/07/21 02/08/21 02/08/21 22:10 04:46 04:46 WBC 4.2 L RBC Hgb 9.7 L MCV 78 L MCH 24 L RDW 17.9 H Plt Count 110 L Lymph % (Auto) [place] % (Auto) Lymph # (Auto) Seg Neutrophils % Seg Neuts % (Manual) Lymphocytes % (Manual) Seg Neutrophils # Seg Neutrophils # Man D-Dimer ABG pH ABG pO2 ABG HCO3 ABG O2 Saturation ABG Base Excess ABG Hemoglobin Oxyhemoglobin Sodium Chloride Carbon Dioxide BUN Creatinine 0.4 L Glucose 220 H POC Glucose 241 H Calcium 8.0 L Ferritin AST Lactate Dehydrogenase C-Reactive Protein Total Protein Albumin Coronavirus (PCR) 02/08/21 02/08/21 02/08/21 08:05 11:36 15:44 WBC RBC Hgb MCV MCH RDW Plt Count Lymph % (Auto) [place] % (Auto) Lymph # (Auto) Seg Neutrophils % Seg Neuts % (Manual) Lymphocytes % (Manual) Seg Neutrophils # Seg Neutrophils # Man D-Dimer ABG pH ABG pO2 ABG HCO3 ABG O2 Saturation ABG Base Excess ABG Hemoglobin Oxyhemoglobin Sodium Chloride Carbon Dioxide BUN Creatinine Glucose POC Glucose 208 H 200 H 149 H Calcium Ferritin AST Lactate Dehydrogenase C-Reactive Protein Total Protein Albumin Coronavirus (PCR) 02/08/21 02/09/21 02/09/21 21:35 04:24 07:39 WBC RBC Hgb MCV MCH RDW Plt Count Lymph % (Auto) [place] % (Auto) Lymph # (Auto) Seg Neutrophils % Seg Neuts % (Manual) Lymphocytes % (Manual) Seg Neutrophils # Seg Neutrophils # Man D-Dimer ABG pH ABG pO2 ABG HCO3 ABG O2 Saturation ABG Base Excess ABG Hemoglobin Oxyhemoglobin Sodium Chloride Carbon Dioxide BUN Creatinine 0.4 L Glucose 205 H POC Glucose 249 H 205 H Calcium 8.1 L Ferritin AST Lactate Dehydrogenase C-Reactive Protein Total Protein Albumin Coronavirus (PCR) 02/09/21 02/09/21 02/09/21 11:53 16:52 21:26 WBC RBC Hgb MCV MCH RDW Plt Count Lymph % (Auto) [place] % (Auto) Lymph # (Auto) Seg Neutrophils % Seg Neuts % (Manual) Lymphocytes % (Manual) Seg Neutrophils # Seg Neutrophils # Man D-Dimer ABG pH ABG pO2 ABG HCO3 ABG O2 Saturation ABG Base Excess ABG Hemoglobin Oxyhemoglobin Sodium Chloride Carbon Dioxide BUN Creatinine Glucose POC Glucose 303 H 164 H 257 H Calcium Ferritin AST Lactate Dehydrogenase C-Reactive Protein Total Protein Albumin Coronavirus (PCR) 02/10/21 02/10/21 02/10/21 09:30 09:38 11:45 WBC RBC Hgb MCV MCH RDW Plt Count Lymph % (Auto) [place] % (Auto) Lymph # (Auto) Seg Neutrophils % Seg Neuts % (Manual) Lymphocytes % (Manual) Seg Neutrophils # Seg Neutrophils # Man D-Dimer ABG pH 7.309 L ABG pO2 71.2 L ABG HCO3 29.1 H ABG O2 Saturation 92.4 L ABG Base Excess ABG Hemoglobin 11.2 L Oxyhemoglobin 90.2 L Sodium Chloride Carbon Dioxide BUN Creatinine Glucose POC Glucose 240 H 257 H Calcium Ferritin AST Lactate Dehydrogenase C-Reactive Protein Total Protein Albumin Coronavirus (PCR) 02/10/21 02/10/21 02/11/21 17:12 21:26 04:50 WBC RBC Hgb MCV 78 L MCH 24 L RDW 20.3 H Plt Count 133 L Lymph % (Auto) [place] % (Auto) Lymph # (Auto) Seg Neutrophils % Seg Neuts % (Manual) Lymphocytes % (Manual) Seg Neutrophils # Seg Neutrophils # Man D-Dimer ABG pH ABG pO2 ABG HCO3 ABG O2 Saturation ABG Base Excess ABG Hemoglobin Oxyhemoglobin Sodium Chloride Carbon Dioxide BUN Creatinine Glucose POC Glucose 178 H 362 H Calcium Ferritin AST Lactate Dehydrogenase C-Reactive Protein Total Protein Albumin Coronavirus (PCR) 02/11/21 02/11/21 02/11/21 08:02 11:52 17:14 WBC RBC Hgb MCV MCH RDW Plt Count Lymph % (Auto) [place] % (Auto) Lymph # (Auto) Seg Neutrophils % Seg Neuts % (Manual) Lymphocytes % (Manual) Seg Neutrophils # Seg Neutrophils # Man D-Dimer ABG pH ABG pO2 ABG HCO3 ABG O2 Saturation ABG Base Excess ABG Hemoglobin Oxyhemoglobin Sodium Chloride Carbon Dioxide BUN Creatinine Glucose POC Glucose 263 H 433 H 212 H Calcium Ferritin AST Lactate Dehydrogenase C-Reactive Protein Total Protein Albumin Coronavirus (PCR) 02/11/21 02/12/21 02/12/21 21:39 08:24 11:21 WBC RBC Hgb MCV MCH RDW Plt Count Lymph % (Auto) [place] % (Auto) Lymph # (Auto) Seg Neutrophils % Seg Neuts % (Manual) Lymphocytes % (Manual) Seg Neutrophils # Seg Neutrophils # Man D-Dimer ABG pH ABG pO2 ABG HCO3 ABG O2 Saturation ABG Base Excess ABG Hemoglobin Oxyhemoglobin Sodium Chloride Carbon Dioxide BUN Creatinine Glucose POC Glucose 248 H 295 H 403 H Calcium Ferritin AST Lactate Dehydrogenase C-Reactive Protein Total Protein Albumin Coronavirus (PCR) 02/12/21 02/13/21 16:29 07:32 WBC RBC Hgb MCV MCH RDW Plt Count Lymph % (Auto) [place] % (Auto) Lymph # (Auto) Seg Neutrophils % Seg Neuts % (Manual) Lymphocytes % (Manual) Seg Neutrophils # Seg Neutrophils # Man D-Dimer ABG pH ABG pO2 ABG HCO3 ABG O2 Saturation ABG Base Excess ABG Hemoglobin Oxyhemoglobin Sodium Chloride Carbon Dioxide BUN Creatinine Glucose POC Glucose 238 H 299 H Calcium Ferritin AST Lactate Dehydrogenase C-Reactive Protein Total Protein Albumin Coronavirus (PCR)
[2021-02-13] MEDS: INSULIN GLARGINE 100 UNITS/ML SUB-Q SCH (23:11)
[2021-02-13] MEDS: MIRTAZAPINE 15 MG TAB PO SCH (23:12)
[2021-02-14] MEDS: hydrALAZINE 20 MG/1 ML INJ IV PRN (06:22)
[2021-02-14] MEDS: methylPREDNISolone Sod Succinate 40 MG/1 ML INJ IV SCH ×3 (06:22→21:34)
--- NOTE | 2021-02-14 08:17 | Progress Note ---
Assessment and Plan Assessment and plan: This is a 55-year-old female with schizophrenia who presented to [facility] on 01/18 for shortness of breath, cough, subjective fever and not feeling well for the last couple days with known COVID-19 exposure. While in the emergency room patient was switched from non rebreather mask to high flow nasal cannula and his CTA chest showed no acute pulmonary embolism. Patient was admitted to the hospital service as a COVID-19 PUI with consults to CCM, infectious disease, psych. Severe COVID-19 pneumonia Acute hypoxic respiratory failure Obesity Schizophrenia Leukocytosis Hyperglycemia Schizophrenia Hypernatremia Hypercholermia -CCM, infectious disease, psychiatry consulted, appreciate recommendations -COVID-19 PCR positive -Droplet/contact isolation -Remdesivir, azithromycin, ceftriaxone, dexamethasone (twice daily dosing) -s/p Actemra -Wean supplemental oxygen as tolerated, pulmonary hygiene -Prone as tolerated -Trend COVID-19 inflammatory markers for risk stratification, CBC, CMP -SSI, Lantus -01/18 bilateral lower extremity Doppler ultrasound negative for DVT -01/17 CTA shows no evidence of pulmonary embolism, extensive bilateral pneumonia, hepatomegaly with hepatic steatosis 01/18/2021 -Acute hypoxic respiratory failure requiring high flow oxygen 40 L. Nebulizer treatment -Patient is admitted for suspected Covid pneumonia. Patient is on dexamethasone, COVID-19 test is pending. Patient is on empiric antibiotics. -ID consulted, will consult pulmonary. -Patient has hyponatremia yesterday and I will repeat and if it is low I will manage accordingly -Patient has elevated D-dimer and CTA chest and bilateral Doppler ultrasound of the lower extremities pending 01/19/2021 -Acute hypoxic respiratory failure currently on BiPAP, nebulizer treatment. I will put in orders to transfer to [facility] yesterday but there was no bed. -Patient is positive for Covid and she is on Decadron and remdesivir. Actemra was ordered on 01/19/2021 -ID evaluated the patient and recommend to continue Decadron and remdesivir, also to continue ceftriaxone and azithromycin for 5 days because of the elevated procalcitonin level. Pulmonary was consulted and recommend to continue current management and add Lasix -CTA chest was done and significant for bilateral pulmonary opacities, negative for PE, Doppler ultrasound of the lower extremities was negative for DVT. -Prognosis is guarded. -Patient is currently on BiPAP and she was agitated and trying to take off the BiPAP, I put the patient on restraints. Discussed with casting house worker to transfer the patient to IMCU and if there is no bed she need to be transferred to CCU. 01/20: Patient received 5 mg of Haldol for severe agitation and refusal to keep high flow nasal cannula in place. [facility] ordered Lasix again. Psych was consulted today. Patient was on BiPAP therapy all night and RT attempted to give her a break patient is on high flow nasal cannula however she did not keep this in place and was paced back on BiPAP after receiving Haldol. She was started on Lantus today. 01/21: Patient is on BiPAP and on time examination was on 20/10 100% FiO2. Patient was started on Lantus. Psych consult completed and started on Haldol p.o. twice daily and Mirtazepin PO daily. No acute events reported overnight. Patient's D-dimer is greater than 10,000 started on prophylactic Lovenox as recent CTA chest and bilateral lower extremity Doppler ultrasound were negative. 01/22: Patient has been taken off BiPAP therapy and placed on high flow nasal cannula. Patient has been downgraded to IMCU. Patient's hyponatremia and hypochloremia have worsened. 01/23: Patient was on BiPAP overnight with FiO2 85% and IPAP 20/EPAP 10. Patient currently with high flow nasal cannula 40 L O2 with an FiO2 of 100%. Continue remdesivir and dexamethasone. Patient is s/p Actemra on 01/20. Continue empiric antibiotics per ID recommendations. Continue anticoagulation per protocol. 01/24: Patient is tachycardic and hypertensive and [facility] has opted to add amlo dipine. Patient remains on 40 L 100% high flow nasal cannula. Continue remdesivir and dexamethasone. Patient is s/p Actemra on 01/20. Continue empiric antibiotics per ID recommendations. Continue anticoagulation per protocol. 01/25: Patient currently with high flow nasal cannula 40 L/min with FiO2 100%. Continue dexamethasone. Patient has completed remdesivir and s/p Actemra on 01/20. Continue full dose anticoagulation given high elevated D-dimer. Continue to trend inflammatory markers. Prognosis remains guarded. 01/26: Patient currently with high flow nasal cannula 35 L/min and FiO2 90%. Continue dexamethasone. Patient has completed remdesivir and s/p Actemra on 01/20. Continue full dose anticoagulation given high elevated D-dimer. Continue to trend inflammatory markers. Prognosis remains guarded. 01/27: Patient currently with high flow nasal cannula/Vapotherm 35 L/min O2 with F iO2 90%. Patient has completed remdesivir and s/p Actemra on 01/20. Continue full dose anticoagulation given high elevated D-dimer. Continue to trend inflammatory markers. Prognosis remains guarded. 01/28; Patient currently with high flow nasal cannula/Vapotherm 35 L/min O2 with FiO2 90%. Patient has completed remdesivir and s/p Actemra on 01/20. Continue full dose anticoagulation given high elevated D-dimer. Continue to trend inflammatory markers. Prognosis remains guarded. 01/29; patient is currently on 35 L of high flow oxygen. Prognosis guarded. Patient can be transferred to regular floor. 01/30/2021; patient is currently on 35 L of high flow oxygen, FiO2 of 65%. Patient has flat affect and did not talk to me. Patient refused most of her p.o. medications. Patient finished remdesivir, steroid. 01/31/2021; patient is on 35 L of high flow oxygen, FiO2 65%. Patient was calm and cooperative and communicative today. pulmonary is following. Patient finished remdesivir and steroid. 02/01/2021; patient was on 40 L of high flow oxygen.. I have called and discussed with her mother yesterday. Her mother told me patient was last followed at [facility] and I called facility and they told me medication she was on and I put these medications. Patient refused to eat so I put the patient on NG tube feeding for medications. Prognosis is guarded. 02/02/2021; patient is on 4 L of high flow oxygen with FiO2 of 60%. Her outpatient psych medications were reconciled. Patient was taking medications and as needed NG tube. Pulmonary is following the patient. 02/03/21: Patient noted with mild epistaxis this morning we will order some Afrin to help. Continue current management patient is on 35 L high flow. No worsening distress but still with intermittent confusion sometimes takes off the oxygen. Will repeat a trial of Lasix and monitor renal function with a.m. labs. Plan discussed with nurse at bedside. I also encouraged proning again. 02/04: Unfortunately still with hypoxia desaturating required increased to 50 L and 70% will gradually taper down. Patient due to her underlying psych history of schizophrenia is noncompliant. Daughter is working on getting guardianship over the patient. This will likely be a slow process nevertheless we will still obtain a CT of the head to ensure no other pathology. We will get an ABG and a chest x-ray today. 02/05: Patient overnight had an episode where she coughed up blood. H&H has remained stable. She has been since discontinued from full dose anticoagulants to DVT prophylactic dose. Chest x-ray shows mild worsening of congestion. Will discuss with pulmonary if patient will benefit from BiPAP during hours of sleep. Still awaiting information from family on prior psych medications that the hayden nguyen was on psych review with psychiatry team as her mental status remains a deterrent and an impediment to oxygen management. We will give a trial dose of Lasix x 3 days. Will transfer to [facility] for closer monitoring 02/06: Continue supportive care, 2 more days of lasix, monitor BMP closely wean oxygen as tolerated, pulmonary input noted 02/07: Continues on High flow. Refusing medications, still with severe hypoxia, Discussed with Psych to re-evaluate the patient. 02/08: Unfortunately patient was not seen by psych yesterday and I still do not have home medication listed I asked the family and they promised to bring her in. We discussed with nursing staff to ask again. We will also reconsult psych as her underlying psych condition is precluding improvement due to her refusal of medical treatments. Patient continues on high flow 10 today will be to further wean down if tolerated. She is still refusing prone position 02/09: Patient remains on oxygen, not compliance, continues on restraints to assist with compliance, will try to wean again 02/10: Restart lasix, discussed with Machine Egg Washer considering starting on PrECEDEX, Monitor electrolytes. Prognosis is guarded. 02/11/2021; patient is on Lasix, Precedex and Solu-Medrol 40 mg every 8 hours. Patient's blood sugar is elevated and I increase Lantus from 20-25 nightly, give her a dose of 10 units of Lantus now. Will monitor blood sugar. Prognosis very poor. 02/12/2021; patient is on 40 L of high flow oxygen, 94% FiO2. Pulmonary is following the patient and recommendations noted. Dr Mancilla Discussed with the patient and the mother about the plan of care and the high risk of her condition and refusal of care. 02/13/2021; patient was on 30 L of high flow oxygen with FiO2 of 90%. Pulmonary is following the patient. Continue IMC care. Prognosis is guarded. 02/14/2021; patient is on 30 L of high flow oxygen with FiO2 of 90%. Continue inpatient care. History Interval history: Patient was seen and evaluated this morning Patient was calm and cooperative, patient was alert and oriented Patient was on 30 L of oxygen with FiO2 of 90% Hospitalist Physical - Physical exam Narrative exam: Patient was 30 L of oxygen with FiO2 of 90%. The patient appeared well nourished and normally developed. Vital signs as documented. Head exam is unremarkable. No scleral icterus . Neck is without jugular venous distension, thyromegaly, or carotid bruits. Lungs decreased air entry on both lungs Cardiac exam reveals regular rate and Rhythm. Abdominal exam reveals normal bowel sounds, nontender, no organomegaly. Extremities are nonedematous and both femoral and pedal pulses are normal. LUDLOW MACHINE OPERATOR: Patient was alert and oriented. - Constitutional Vitals: Temp Pulse Resp BP Pulse Ox 98.6 F 83 20 187/79 99 02/14/21 05:23 02/14/21 05:23 02/14/21 05:23 02/14/21 05:23 02/14/21 05:23 General appearance: Present: no acute distress, well-nourished HEART Score - HEART Score Troponin: Troponin T < 0.010 ng/mL (0.00-0.029) 01/17/21 16:41 Results - Labs CBC & Chem 7: 02/11/21 04:50 02/11/21 04:50 Labs: Laboratory Last Values WBC 6.4 K/mm3 (4.5-11.0) 02/11/21 04:50 RBC 4.53 M/mm3 (3.65-5.03) 02/11/21 04:50 Hgb 10.9 gm/dl (10.1-14.3) 02/11/21 04:50 Hct 35.5 % (30.3-42.9) 02/11/21 04:50 MCV 78 fl (79-97) L 02/11/21 04:50 MCH 24 pg (28-32) L 02/11/21 04:50 MCHC 31 % (30-34) 02/11/21 04:50 RDW 20.3 % (13.2-15.2) H 02/11/21 04:50 Plt Count 133 K/mm3 (140-440) L 02/11/21 04:50 Lymph % (Auto) 44.9 % (13.4-35.0) H 02/02/21 07:56 [place] % (Auto) 9.2 % (0.0-7.3) H 02/02/21 07:56 Eos % (Auto) 3.6 % (0.0-4.3) 02/02/21 07:56 Baso % (Auto) 0.3 % (0.0-1.8) 02/02/21 07:56 Lymph # (Auto) 1.4 K/mm3 (1.2-5.4) 02/02/21 07:56 [place] # (Auto) 0.3 K/mm3 (0.0-0.8) 02/02/21 07:56 Eos # (Auto) 0.1 K/mm3 (0.0-0.4) 02/02/21 07:56 Baso # (Auto) 0.0 K/mm3 (0.0-0.1) 02/02/21 07:56 Add Manual Diff Complete 01/19/21 05:11 Total Counted 100 01/19/21 05:11 Seg Neutrophils % 42.0 % (40.0-70.0) 02/02/21 07:56 Seg Neuts % (Manual) 88.0 % (40.0-70.0) H 01/19/21 05:11 Lymphocytes % (Manual) 10.0 % (13.4-35.0) L 01/19/21 05:11 Monocytes % (Manual) 2.0 % (0.0-7.3) 01/19/21 05:11 Nucleated RBC % Not Reportable 01/19/21 05:11 Seg Neutrophils # 1.3 K/mm3 (1.8-7.7) L 02/02/21 07:56 Seg Neutrophils # Man 12.5 K/mm3 (1.8-7.7) H 01/19/21 05:11 Band Neutrophils # 0.0 K/mm3 01/19/21 05:11 Lymphocytes # (Manual) 1.4 K/mm3 (1.2-5.4) 01/19/21 05:11 Abs React Lymphs (Man) 0.0 K/mm3 01/19/21 05:11 Monocytes # (Manual) 0.3 K/mm3 (0.0-0.8) 01/19/21 05:11 Eosinophils # (Manual) 0.0 K/mm3 (0.0-0.4) 01/19/21 05:11 Basophils # (Manual) 0.0 K/mm3 (0.0-0.1) 01/19/21 05:11 Metamyelocytes # 0.0 K/mm3 01/19/21 05:11 Myelocytes # 0.0 K/mm3 01/19/21 05:11 Promyelocytes # 0.0 K/mm3 01/19/21 05:11 Blast Cells # 0.0 K/mm3 01/19/21 05:11 WBC Morphology Not Reportable 01/19/21 05:11 Hypersegmented Neuts Not Reportable 01/19/21 05:11 Hyposegmented Neuts Not Reportable 01/19/21 05:11 Hypogranular Neuts Not Reportable 01/19/21 05:11 Smudge Cells Not Reportable 01/19/21 05:11 Toxic Granulation Not Reportable 01/19/21 05:11 Toxic Vacuolation Not Reportable 01/19/21 05:11 Dohle Bodies Not Reportable 01/19/21 05:11 Pelger-Huet Anomaly Not Reportable 01/19/21 05:11 Inder Rods Not Reportable 01/19/21 05:11 Platelet Estimate Consistent w auto 01/19/21 05:11 Clumped Platelets Not Reportable 01/19/21 05:11 Plt Clumps, EDTA Not Reportable 01/19/21 05:11 Large Platelets Not Reportable 01/19/21 05:11 Giant Platelets Not Reportable 01/19/21 05:11 Platelet Satelliting Not Reportable 01/19/21 05:11 Plt Morphology Comment Not Reportable 01/19/21 05:11 RBC Morphology Not Reportable 01/19/21 05:11 Dimorphic RBCs Not Reportable 01/19/21 05:11 Polychromasia Not Reportable 01/19/21 05:11 Hypochromasia 1+ 01/19/21 05:11 Poikilocytosis Not Reportable 01/19/21 05:11 Anisocytosis Not Reportable 01/19/21 05:11 Microcytosis Not Reportable 01/19/21 05:11 Macrocytosis Not Reportable 01/19/21 05:11 Spherocytes Not Reportable 01/19/21 05:11 Pappenheimer Bodies Not Reportable 01/19/21 05:11 Sickle Cells Not Reportable 01/19/21 05:11 Target Cells Not Reportable 01/19/21 05:11 Tear Drop Cells Not Reportable 01/19/21 05:11 Ovalocytes Not Reportable 01/19/21 05:11 Helmet Cells Not Reportable 01/19/21 05:11 [place] Bodies Not Reportable 01/19/21 05:11 [place] Rings Not Reportable 01/19/21 05:11 Giorgio Cells Not Reportable 01/19/21 05:11 Bite Cells Not Reportable 01/19/21 05:11 Crenated Cell Not Reportable 01/19/21 05:11 Elliptocytes Not Reportable 01/19/21 05:11 Acanthocytes (Spur) Not Reportable 01/19/21 05:11 Rouleaux Not Reportable 01/19/21 05:11 Hemoglobin C Crystals Not Reportable 01/19/21 05:11 Schistocytes Not Reportable 01/19/21 05:11 Malaria parasites Not Reportable 01/19/21 05:11 Chai Bodies Not Reportable 01/19/21 05:11 Hem Pathologist Commnt No 01/19/21 05:11 PT 13.6 Sec. (12.2-14.9) 02/04/21 14:52 INR 1.06 (0.87-1.13) 02/04/21 14:52 APTT 30.7 Sec. (24.2-36.6) 02/04/21 14:52 D-Dimer 1884.49 ng/mlDDU (0-234) H 01/28/21 08:46 ABG pH 7.309 pH Units (7.350-7.450) L 02/10/21 09:30 ABG pCO2 59.4 mm Hg 02/10/21 09:30 ABG pO2 71.2 mm Hg (80.0-90.0) L 02/10/21 09:30 ABG HCO3 29.1 mmol/L (20.0-26.0) H 02/10/21 09:30 ABG O2 Saturation 92.4 % (95.0-99.0) L 02/10/21 09:30 ABG O2 Content 14.2 (0.0-44) 02/10/21 09:30 ABG Base Excess 1.8 mmol/L (-2.0-3.0) 02/10/21 09:30 ABG Hemoglobin 11.2 gm/dl (12.0-16.0) L 02/10/21 09:30 ABG Carboxyhemoglobin 1.8 % (0.0-5.0) 02/10/21 09:30 ABG Methemoglobin 0.6 % (0.0-1.5) 02/10/21 09:30 Oxyhemoglobin 90.2 % (95.0-99.0) L 02/10/21 09:30 FiO2 100 % 02/10/21 09:30 Sodium 142 mmol/L (137-145) 02/09/21 04:24 Potassium 3.9 mmol/L (3.6-5.0) 02/09/21 04:24 Chloride 105.5 mmol/L (98-107) 02/09/21 04:24 Carbon Dioxide 29 mmol/L (22-30) 02/09/21 04:24 Anion Gap 11 mmol/L 02/09/21 04:24 BUN 11 mg/dL (7-17) 02/09/21 04:24 Creatinine 0.7 mg/dL (0.6-1.2) D 02/11/21 04:50 Estimated GFR > 60 ml/min 02/11/21 04:50 BUN/Creatinine Ratio 28 % 02/09/21 04:24 Glucose 205 mg/dL (65-100) H 02/09/21 04:24 POC Glucose 346 mg/dL (70-105) H 02/13/21 21:45 Lactic Acid 1.70 mmol/L (0.7-2.0) 01/17/21 16:41 Calcium 8.1 mg/dL (8.4-10.2) L 02/09/21 04:24 Ferritin 797.7 ng/mL (10.0-200.0) H 01/28/21 08:46 Total Bilirubin 0.30 mg/dL (0.1-1.2) 01/21/21 11:29 AST 34 units/L (5-40) 01/21/21 11:29 ALT 38 units/L (7-56) 01/21/21 11:29 Alkaline Phosphatase 117 units/L (35-129) 01/21/21 11:29 Ammonia 43.0 umol/L (25-60) 02/04/21 14:52 Lactate Dehydrogenase 556 units/L (91-180) H 01/28/21 08:46 Troponin T < 0.010 ng/mL (0.00-0.029) 01/17/21 16:41 C-Reactive Protein 0.20 mg/dL (0.00-1.30) 01/28/21 08:46 NT-Pro-B Natriuret Pep 40.88 pg/mL (0-900) 01/17/21 16:41 Total Protein 7.3 g/dL (6.3-8.2) 01/21/21 11:29 Albumin 3.4 g/dL (3.9-5) L 01/21/21 11:29 Albumin/Globulin Ratio 0.9 % 01/21/21 11:29 Procalcitonin 0.39 ng/mL (<0.15) 01/17/21 17:46 Coronavirus (PCR) Negative (Negative) 02/11/21 09:10 Estrada/IV: Voiding Method Incontinent Active Medications - Current Medications Current Medications: Generic Name Dose Route Start Last Admin Trade Name Freq PRN Reason Stop Dose Admin Acetaminophen 650 mg 01/18/21 00:36 02/11/21 22:49 Acetaminophen 325 Mg Tab PO 650 mg Q4H PRN Administration Pain MILD(1-3)/Fever >100.5/PAN Albuterol/Ipratropium 1 ampul 02/01/21 14:00 02/13/21 21:03 Ipratropium/Albuterol Sulfate 3 Ml Ampul.Neb IH 1 ampul TIDRT PJ Administration Apixaban 2.5 mg 02/04/21 22:00 02/13/21 23:12 Apixaban 2.5 Mg Tab PO 2.5 mg Q12HR PJ Administration Protocol Aripiprazole 15 mg 01/31/21 13:00 02/13/21 11:05 Aripiprazole 15 Mg Tab PO 15 mg QDAY PJ Administration Ascorbic Acid 1,000 mg 02/04/21 10:00 02/13/21 23:12 Ascorbic Acid 500 Mg Tab PO 1,000 mg BID JP Administration Cholecalciferol 5,000 unit 02/04/21 10:00 02/13/21 11:04 Cholecalciferol (Vit D3) 5,000 Unit Tab PO 5,000 unit DAILY PJ Administration Divalproex Sodium 500 mg 01/31/21 12:00 02/13/21 11:04 Divalproex Er 500 Mg Tab PO 500 mg QDAY PJ Administration Famotidine 20 mg 01/18/21 10:00 02/13/21 23:12 Famotidine 20 Mg Tab PO 20 mg BID PJ Administration Hydralazine HCl 10 mg 01/18/21 00:38 02/14/21 06:22 Hydralazine 20 Mg/1 Ml Inj IV 10 mg Q6H PRN Administration htn Hydromorphone HCl 0.5 mg 01/20/21 11:00 Hydromorphone 1 Mg/1 Ml Inj IV Q6H PRN Pain , Severe (7-10) Hydrophilic Ointment 1 applic 02/03/21 12:00 Petrolatum,White 30 Gm Oint TP PRN PRN Skin Irritation Insulin Glargine 25 units 02/11/21 22:00 02/13/21 23:11 Insulin Glargine 100 Units/Ml SUB-Q 25 units QHS PJ Administration Insulin Human Lispro 0 unit 02/01/21 11:30 02/13/21 23:13 Insulin Lispro 100 Unit/Ml SUB-Q 8 unit ACHS PJ Administration Protocol Methylprednisolone Sodium Succinate 40 mg 02/10/21 14:00 02/14/21 06:22 Methylprednisolone Sod Succinate 40 Mg/1 Ml Inj IV 40 mg Q8HR PJ Administration Metoprolol Tartrate 12.5 mg 02/01/21 12:00 02/13/21 23:13 Metoprolol Tartrate 25 Mg Tab PO 12.5 mg BID PJ Administration Mirtazapine 7.5 mg 01/21/21 22:00 02/13/21 23:12 Mirtazapine 15 Mg Tab PO 7.5 mg QHS PJ Administration Ondansetron HCl 4 mg 01/18/21 00:36 Ondansetron 4 Mg/2 Ml Inj IV Q8H PRN Nausea And Vomiting Oxymetazoline HCl 2 spray 02/03/21 12:00 02/03/21 13:17 Oxymetazoline 0.05% Nasal [place] NS 2 spray Q12H PRN Administration Congestion Paliperidone 6 mg 01/31/21 13:00 02/13/21 11:05 Paliperidone Er 3 Mg Tab PO 6 mg QDAY PJ Administration Sodium Chloride 10 ml 01/18/21 10:00 02/13/21 23:11 Sodium Chloride 0.9% 10 Ml Flush Syringe IV 10 ml BID PJ Administration Sodium Chloride 10 ml 01/18/21 00:36 Sodium Chloride 0.9% 10 Ml Flush Syringe IV PRN PRN LINE FLUSH Zinc Sulfate 220 mg 02/04/21 10:00 02/13/21 11:35 Zinc Sulfate 220 Mg Cap PO 220 mg QDAY PJ Administration Nutrition/Malnutrition Assess - Dietary Evaluation Nutrition/Malnutrition Findings: Nutrition Notes Start: 01/24/21 10:40 Freq: Status: Active Protocol: Document 02/13/21 11:12 VINAY (Rec: 02/13/21 11:16 VINAY [id number]) Co-Sign 02/13/21 11:12 JUAN ALBERTO Nutrition Notes Initial or Follow up Reassessment Current Diagnosis Respiratory Failure Other Pertinent Diagnosis pneu, COVID-19(-), AMS Current Diet Cardiac/Consistent CHO Labs/Tests No new labs Pertinent Medications Solumedrol vitamin C vitamin D3 Height 5 ft 4 in Weight 93.2 kg [place] Body Weight (kg) 54.54 BMI 35.2 Weight Status Obese Subjective/Other Information F/U for stable intakes. Per RN , pt consuming 100% meals and ONS. Percent of energy/protein needs met: 100%/100% (PO only) Burn Absent Trauma Absent GI Symptoms None Current % PO Good (75-100%) Minimum of two criteria No Energy Intake (non-severe) <75% Estimated Energy Requirement >7 days #1 Nutrition Diagnosis Inadequate oral intake As Evidenced by Signs and Symptoms pt consuming 100% meals and ONS Diagnosis Progress(for reassessment Improved documentation) Is patient on ventilator? No Is Patient Ambulatory and/or Out of Bed No REE-([place]-confined to bed) 1812.660 Kcal/Kg value to use for calculation 15 Approximate Energy Requirements Using 1398 kcal/Kg Calculation Used for Recommendations Kcal/kg Additional Notes PRO needs: 59-74g (0.8-1g/kg AdBW 74 kg) Fluid needs: 1 mL/kcal or per MD Nutrition Intervention Change Diet Order: Continue current Add Supplement/Snack (indicate name/kcal D/C Glucerna /protein ) Goal #1 Meet at least 75% of energy and protein needs via PO and ONS intakes Anticipated Discharge Needs: Cardiac/Consistent CHO Follow-Up By: 02/18/21 Additional Comments F/U for stable intakes
[2021-02-14] MEDS: ASCORBIC ACID 500 MG TAB PO SCH ×2 (09:24→21:34)
[2021-02-14] MEDS: CHOLECALCIFEROL (VIT D3) 5,000 UNIT TAB PO SCH (09:24)
[2021-02-14] MEDS: DIVALPROEX ER 500 MG TAB PO SCH (09:24)
[2021-02-14] MEDS: APIXABAN 2.5 MG TAB PO SCH ×2 (09:24→21:34)
[2021-02-14] MEDS: FAMOTIDINE 20 MG TAB PO SCH ×2 (09:24→21:35)
[2021-02-14] MEDS: METOPROLOL TARTRATE 25 MG TAB PO SCH ×2 (09:27→22:44)
[2021-02-14] MEDS: ZINC SULFATE 220 MG CAP PO SCH (09:27)
[2021-02-14] MEDS: INSULIN LISPRO 100 UNIT/ML SUB-Q SCH ×4 (09:29→21:38)
[2021-02-14] MEDS: ARIPiprazole 15 MG TAB PO SCH (10:06)
[2021-02-14] MEDS: PALIPERIDONE ER 3 MG TAB PO SCH (10:06)
[2021-02-14] MEDS ORDERED: FUROSEMIDE 40 MG/4 ML INJ IV ONE ×2 (10:08→15:00)
--- NOTE | 2021-02-14 10:18 | Progress Note ---
Assessment and Plan 55 y/o female admitted with acute respiratory failure secondary to pneumonia, positive for Sars CoV2 02/14/21: lasix again today. Prone if possible. Continue steroids. Guarded Prognosis 02/13/21: ordered more lasix for today. Monitor strict I/O. Prone if patient will allow. Continue steroids. 02/12/18: continue lasix therapy daily. Prone if possible. Guarded prongosis. continue steroids 02/11/21: IMS has ordered lasix daily for 3 days, will continue to monitor. May need to give an additional dose later tonight. Long discussion at bedside this am about he importance of wearing bipap at night and what that means to her overall health. Will discuss with family too. Overall prognosis is very guarded. Will do our best to not intubate this patient given her morbid obesity as this would increase her mortality rate tremendously. Please continue to document refusal of therapy when appropriate. 02/10/21: Lasix today, 40 IV. Will attempt precedex to see if this will help with mental state and cooperation in care. Will also restart steroids but use solumedrol 40q8 dosing. May need to consider adding back the Haldol PRN as well. Guarded prognosis. Will attempt our best to not intubate this patient as her mortality would be extremely high if intubated given her morbid obesity. 02/02/21: Lasix again today. Patient refuses to prone. Guarded prognosis. 02/01/21: Will give another 40 of lasix today. Will speak with RT about being more aggressive with weaning of oxygen. Prone if possible. 01/31/21: Increased lasix to 40 today. Prone if possible. 01/30/21: Lasix 20mg IV today. Continue Antipsychotic therapy management. Prone as tolerated if patient willing. 01/29/21: Will give lasix again today. Will change Haldol to IM since patient is refusing PO meds. 01/28/21: Will give lasix again today. Continue all other therapies. Prone if patient will and tolerate. STeroids. Guarded prognosis. 01/20/21: Gave Haldol 5 and patient has calmed down and become more appropriate, allowing us to place bipap back on. COntinue steroids and remdesivir therapy. Doubt patient will be able to prone successfully. Will try lasix today again to see if this helps. Very very guarded prognosis. 01/19/21: Continue decadron, suggest increase given patient body habitus to BID. ID consult for Remdesivir therapy and to see if she is a candidate for Actemra. Prone as tolerated during the day and sleep prone at night. Will give lasix again today. Guarded prognosis. 1. Prone 2. Lasix 3. Agree with steroids 4. Follow up COVID testing Guarded prognosis Subjective Date of service: 02/14/21 Principal diagnosis: Covid-19 Interval history: No acute events. Stable transfer to floor. Still on HFNC but could be weaned. Objective Vital Signs - 12hr 02/13/21 02/14/21 02/14/21 22:31 02:22 05:23 Temperature 98.2 F 98.6 F Pulse Rate 98 H 83 Respiratory 20 20 Rate Blood Pressure 159/86 187/79 O2 Sat by Pulse 92 100 99 Oximetry Constitutional: no acute distress, alert Eyes: non-icteric ENT: oropharynx moist Neck: supple, other (large in circumference) Effort: normal Ascultation: Bilateral: clear, diminished breath sounds Cardiovascular: other (tachy, RR; no mrg) Gastrointestinal: normoactive bowel sounds, soft, non-tender, non-distended Integumentary: normal Extremities: no cyanosis, no edema, pink and warm Neurologic: normal mental status, non-focal exam, pupils equal and round Psychiatric: mood appropriate, affect normal CBC and BMP: 02/11/21 04:50 02/11/21 04:50 ABG, PT/INR, D-dimer: ABG ABG pH 7.309 pH Units (7.350-7.450) L 02/10/21 09:30 ABG pCO2 59.4 mm Hg 02/10/21 09:30 ABG pO2 71.2 mm Hg (80.0-90.0) L 02/10/21 09:30 ABG O2 Saturation 92.4 % (95.0-99.0) L 02/10/21 09:30 PT/INR, D-dimer PT 13.6 Sec. (12.2-14.9) 02/04/21 14:52 INR 1.06 (0.87-1.13) 02/04/21 14:52 D-Dimer 1884.49 ng/mlDDU (0-234) H 01/28/21 08:46 Abnormal lab findings: Abnormal Labs 01/17/21 01/17/21 01/17/21 09:25 16:41 16:41 WBC RBC 5.23 H Hgb MCV 76 L MCH 24 L RDW Plt Count Lymph % (Auto) 9.4 L [place] % (Auto) Lymph # (Auto) 0.8 L Seg Neutrophils % 85.4 H Seg Neuts % (Manual) Lymphocytes % (Manual) Seg Neutrophils # Seg Neutrophils # Man D-Dimer ABG pH ABG pO2 ABG HCO3 ABG O2 Saturation ABG Base Excess ABG Hemoglobin Oxyhemoglobin Sodium 128 L Chloride 90.8 L Carbon Dioxide BUN Creatinine Glucose 372 H POC Glucose Calcium Ferritin AST 98 H Lactate Dehydrogenase C-Reactive Protein Total Protein Albumin 3.2 L Coronavirus (PCR) Positive A 01/17/21 01/17/21 01/17/21 17:46 17:46 17:46 WBC RBC Hgb MCV MCH RDW Plt Count Lymph % (Auto) [place] % (Auto) Lymph # (Auto) Seg Neutrophils % Seg Neuts % (Manual) Lymphocytes % (Manual) Seg Neutrophils # Seg Neutrophils # Man D-Dimer 1058.54 H ABG pH ABG pO2 ABG HCO3 ABG O2 Saturation ABG Base Excess ABG Hemoglobin Oxyhemoglobin Sodium Chloride Carbon Dioxide BUN Creatinine Glucose 369 H POC Glucose Calcium Ferritin 668.4 H AST Lactate Dehydrogenase 519 H C-Reactive Protein 19.20 H Total Protein Albumin Coronavirus (PCR) 01/18/21 01/18/21 01/19/21 09:01 17:18 05:11 WBC 14.2 H RBC Hgb MCV 74 L MCH 23 L RDW Plt Count Lymph % (Auto) [place] % (Auto) Lymph # (Auto) Seg Neutrophils % Seg Neuts % (Manual) 88.0 H Lymphocytes % (Manual) 10.0 L Seg Neutrophils # Seg Neutrophils # Man 12.5 H D-Dimer ABG pH 7.461 H ABG pO2 53.1 L ABG HCO3 ABG O2 Saturation 89.4 L ABG Base Excess ABG Hemoglobin Oxyhemoglobin 88.0 L Sodium 132 L Chloride 93.6 L Carbon Dioxide BUN 18 H Creatinine Glucose 367 H POC Glucose Calcium 7.8 L Ferritin AST Lactate Dehydrogenase C-Reactive Protein Total Protein Albumin Coronavirus (PCR) 01/19/21 01/19/21 01/19/21 05:11 11:06 14:43 WBC RBC Hgb MCV MCH RDW Plt Count Lymph % (Auto) [place] % (Auto) Lymph # (Auto) Seg Neutrophils % Seg Neuts % (Manual) Lymphocytes % (Manual) Seg Neutrophils # Seg Neutrophils # Man D-Dimer ABG pH ABG pO2 ABG HCO3 ABG O2 Saturation ABG Base Excess ABG Hemoglobin Oxyhemoglobin Sodium Chloride Carbon Dioxide BUN 18 H Creatinine Glucose 304 H 379 H POC Glucose 382 H Calcium 8.3 L Ferritin AST 92 H 96 H Lactate Dehydrogenase C-Reactive Protein Total Protein Albumin 3.0 L 3.0 L Coronavirus (PCR) 01/19/21 01/19/21 01/20/21 16:18 22:18 07:31 WBC RBC Hgb MCV MCH RDW Plt Count Lymph % (Auto) [place] % (Auto) Lymph # (Auto) Seg Neutrophils % Seg Neuts % (Manual) Lymphocytes % (Manual) Seg Neutrophils # Seg Neutrophils # Man D-Dimer ABG pH ABG pO2 ABG HCO3 ABG O2 Saturation ABG Base Excess ABG Hemoglobin Oxyhemoglobin Sodium Chloride Carbon Dioxide BUN Creatinine Glucose POC Glucose 374 H 341 H 344 H Calcium Ferritin AST Lactate Dehydrogenase C-Reactive Protein Total Protein Albumin Coronavirus (PCR) 01/20/21 01/20/21 01/20/21 07:33 12:14 13:54 WBC RBC Hgb MCV MCH RDW Plt Count Lymph % (Auto) [place] % (Auto) Lymph # (Auto) Seg Neutrophils % Seg Neuts % (Manual) Lymphocytes % (Manual) Seg Neutrophils # Seg Neutrophils # Man D-Dimer ABG pH ABG pO2 ABG HCO3 ABG O2 Saturation ABG Base Excess ABG Hemoglobin Oxyhemoglobin Sodium Chloride Carbon Dioxide BUN 32 H 31 H Creatinine Glucose 343 H 396 H POC Glucose 365 H Calcium Ferritin AST 57 H 54 H Lactate Dehydrogenase C-Reactive Protein Total Protein 8.3 H Albumin 2.7 L 3.1 L Coronavirus (PCR) 01/20/21 01/20/21 01/21/21 18:28 21:25 04:45 WBC RBC Hgb MCV MCH RDW Plt Count Lymph % (Auto) [place] % (Auto) Lymph # (Auto) Seg Neutrophils % Seg Neuts % (Manual) Lymphocytes % (Manual) Seg Neutrophils # Seg Neutrophils # Man D-Dimer ABG pH ABG pO2 ABG HCO3 ABG O2 Saturation ABG Base Excess ABG Hemoglobin Oxyhemoglobin Sodium Chloride Carbon Dioxide 31 H BUN 41 H Creatinine Glucose 377 H POC Glucose 403 H 340 H Calcium Ferritin AST Lactate Dehydrogenase C-Reactive Protein Total Protein 8.3 H Albumin 3.0 L Coronavirus (PCR) 01/21/21 01/21/21 01/21/21 04:45 04:45 04:45 WBC RBC Hgb MCV MCH RDW Plt Count Lymph % (Auto) [place] % (Auto) Lymph # (Auto) Seg Neutrophils % Seg Neuts % (Manual) Lymphocytes % (Manual) Seg Neutrophils # Seg Neutrophils # Man D-Dimer > 64600 H ABG pH ABG pO2 ABG HCO3 ABG O2 Saturation ABG Base Excess ABG Hemoglobin Oxyhemoglobin Sodium Chloride Carbon Dioxide BUN Creatinine Glucose POC Glucose Calcium Ferritin 1688.0 H AST Lactate Dehydrogenase 649 H C-Reactive Protein 17.00 H Total Protein Albumin Coronavirus (PCR) 01/21/21 01/21/21 01/21/21 09:45 11:29 12:09 WBC RBC Hgb MCV MCH RDW Plt Count Lymph % (Auto) [place] % (Auto) Lymph # (Auto) Seg Neutrophils % Seg Neuts % (Manual) Lymphocytes % (Manual) Seg Neutrophils # Seg Neutrophils # Man D-Dimer ABG pH ABG pO2 ABG HCO3 ABG O2 Saturation ABG Base Excess ABG Hemoglobin Oxyhemoglobin Sodium 151 H Chloride Carbon Dioxide BUN 40 H Creatinine Glucose 412 H POC Glucose 401 H 372 H Calcium Ferritin AST Lactate Dehydrogenase C-Reactive Protein Total Protein Albumin 3.4 L Coronavirus (PCR) 01/21/21 01/21/21 01/22/21 18:26 21:09 02:00 WBC RBC Hgb MCV MCH RDW Plt Count Lymph % (Auto) [place] % (Auto) Lymph # (Auto) Seg Neutrophils % Seg Neuts % (Manual) Lymphocytes % (Manual) Seg Neutrophils # Seg Neutrophils # Man D-Dimer ABG pH ABG pO2 ABG HCO3 ABG O2 Saturation ABG Base Excess ABG Hemoglobin Oxyhemoglobin Sodium Chloride Carbon Dioxide BUN Creatinine Glucose POC Glucose 376 H 322 H 231 H Calcium Ferritin AST Lactate Dehydrogenase C-Reactive Protein Total Protein Albumin Coronavirus (PCR) 01/22/21 01/22/21 01/22/21 05:24 08:25 08:25 WBC RBC 5.44 H Hgb MCV 75 L MCH 23 L RDW 15.5 H Plt Count Lymph % (Auto) [place] % (Auto) Lymph # (Auto) Seg Neutrophils % Seg Neuts % (Manual) Lymphocytes % (Manual) Seg Neutrophils # Seg Neutrophils # Man D-Dimer ABG pH ABG pO2 ABG HCO3 ABG O2 Saturation ABG Base Excess ABG Hemoglobin Oxyhemoglobin Sodium 155 H Chloride 112.4 H Carbon Dioxide BUN 33 H Creatinine Glucose 274 H POC Glucose 275 H Calcium Ferritin AST Lactate Dehydrogenase C-Reactive Protein Total Protein Albumin Coronavirus (PCR) 01/22/21 01/22/21 01/22/21 11:53 16:03 21:41 WBC RBC Hgb MCV MCH RDW Plt Count Lymph % (Auto) [place] % (Auto) Lymph # (Auto) Seg Neutrophils % Seg Neuts % (Manual) Lymphocytes % (Manual) Seg Neutrophils # Seg Neutrophils # Man D-Dimer ABG pH ABG pO2 ABG HCO3 ABG O2 Saturation ABG Base Excess ABG Hemoglobin Oxyhemoglobin Sodium Chloride Carbon Dioxide BUN Creatinine Glucose POC Glucose 265 H 293 H 279 H Calcium Ferritin AST Lactate Dehydrogenase C-Reactive Protein Total Protein Albumin Coronavirus (PCR) 01/23/21 01/23/21 01/23/21 02:03 05:46 05:59 WBC RBC Hgb MCV MCH RDW Plt Count Lymph % (Auto) [place] % (Auto) Lymph # (Auto) Seg Neutrophils % Seg Neuts % (Manual) Lymphocytes % (Manual) Seg Neutrophils # Seg Neutrophils # Man D-Dimer ABG pH ABG pO2 ABG HCO3 ABG O2 Saturation ABG Base Excess ABG Hemoglobin Oxyhemoglobin Sodium Chloride Carbon Dioxide BUN Creatinine Glucose POC Glucose 268 H 303 H Calcium Ferritin 1116.0 H AST Lactate Dehydrogenase C-Reactive Protein Total Protein Albumin Coronavirus (PCR) 01/23/21 01/23/21 01/23/21 05:59 07:42 09:11 WBC RBC Hgb MCV MCH RDW Plt Count Lymph % (Auto) [place] % (Auto) Lymph # (Auto) Seg Neutrophils % Seg Neuts % (Manual) Lymphocytes % (Manual) Seg Neutrophils # Seg Neutrophils # Man D-Dimer ABG pH ABG pO2 ABG HCO3 ABG O2 Saturation ABG Base Excess ABG Hemoglobin Oxyhemoglobin Sodium Chloride Carbon Dioxide BUN Creatinine Glucose POC Glucose 291 H 285 H Calcium Ferritin AST Lactate Dehydrogenase 680 H C-Reactive Protein 5.80 H Total Protein Albumin Coronavirus (PCR) 01/23/21 01/23/21 01/23/21 14:06 17:05 17:59 WBC RBC Hgb MCV MCH RDW Plt Count Lymph % (Auto) [place] % (Auto) Lymph # (Auto) Seg Neutrophils % Seg Neuts % (Manual) Lymphocytes % (Manual) Seg Neutrophils # Seg Neutrophils # Man D-Dimer ABG pH ABG pO2 ABG HCO3 ABG O2 Saturation ABG Base Excess ABG Hemoglobin Oxyhemoglobin Sodium Chloride Carbon Dioxide BUN Creatinine Glucose POC Glucose 228 H 300 H 278 H Calcium Ferritin AST Lactate Dehydrogenase C-Reactive Protein Total Protein Albumin Coronavirus (PCR) 01/23/21 01/24/21 01/24/21 21:43 02:14 05:15 WBC RBC Hgb MCV MCH RDW Plt Count Lymph % (Auto) [place] % (Auto) Lymph # (Auto) Seg Neutrophils % Seg Neuts % (Manual) Lymphocytes % (Manual) Seg Neutrophils # Seg Neutrophils # Man D-Dimer ABG pH ABG pO2 ABG HCO3 ABG O2 Saturation ABG Base Excess ABG Hemoglobin Oxyhemoglobin Sodium Chloride Carbon Dioxide BUN Creatinine Glucose POC Glucose 223 H 427 H 392 H Calcium Ferritin AST Lactate Dehydrogenase C-Reactive Protein Total Protein Albumin Coronavirus (PCR) 01/24/21 01/24/21 01/24/21 07:03 07:03 09:10 WBC RBC 5.49 H Hgb MCV 75 L MCH 23 L RDW Plt Count Lymph % (Auto) 7.0 L [place] % (Auto) Lymph # (Auto) 0.5 L Seg Neutrophils % 86.1 H Seg Neuts % (Manual) Lymphocytes % (Manual) Seg Neutrophils # Seg Neutrophils # Man D-Dimer ABG pH ABG pO2 ABG HCO3 ABG O2 Saturation ABG Base Excess ABG Hemoglobin Oxyhemoglobin Sodium 149 H Chloride 111.4 H Carbon Dioxide BUN 24 H Creatinine Glucose 339 H POC Glucose 284 H Calcium Ferritin AST Lactate Dehydrogenase C-Reactive Protein Total Protein Albumin Coronavirus (PCR) 01/24/21 01/24/21 01/24/21 13:47 18:30 21:58 WBC RBC Hgb MCV MCH RDW Plt Count Lymph % (Auto) [place] % (Auto) Lymph # (Auto) Seg Neutrophils % Seg Neuts % (Manual) Lymphocytes % (Manual) Seg Neutrophils # Seg Neutrophils # Man D-Dimer ABG pH ABG pO2 ABG HCO3 ABG O2 Saturation ABG Base Excess ABG Hemoglobin Oxyhemoglobin Sodium Chloride Carbon Dioxide BUN Creatinine Glucose POC Glucose 317 H 180 H 262 H Calcium Ferritin AST Lactate Dehydrogenase C-Reactive Protein Total Protein Albumin Coronavirus (PCR) 01/25/21 01/25/21 01/25/21 01:22 05:35 08:36 WBC RBC Hgb MCV MCH RDW Plt Count Lymph % (Auto) [place] % (Auto) Lymph # (Auto) Seg Neutrophils % Seg Neuts % (Manual) Lymphocytes % (Manual) Seg Neutrophils # Seg Neutrophils # Man D-Dimer ABG pH ABG pO2 ABG HCO3 ABG O2 Saturation ABG Base Excess ABG Hemoglobin Oxyhemoglobin Sodium Chloride Carbon Dioxide BUN Creatinine Glucose POC Glucose 280 H 243 H 216 H Calcium Ferritin AST Lactate Dehydrogenase C-Reactive Protein Total Protein Albumin Coronavirus (PCR) 01/25/21 01/25/21 01/25/21 15:14 15:14 15:14 WBC RBC Hgb MCV MCH RDW Plt Count Lymph % (Auto) [place] % (Auto) Lymph # (Auto) Seg Neutrophils % Seg Neuts % (Manual) Lymphocytes % (Manual) Seg Neutrophils # Seg Neutrophils # Man D-Dimer 6312.54 H ABG pH ABG pO2 ABG HCO3 ABG O2 Saturation ABG Base Excess ABG Hemoglobin Oxyhemoglobin Sodium 146 H Chloride 108.1 H Carbon Dioxide BUN 19 H Creatinine Glucose 287 H POC Glucose Calcium 8.3 L Ferritin 869.5 H AST Lactate Dehydrogenase 685 H C-Reactive Protein Total Protein Albumin Coronavirus (PCR) 01/25/21 01/25/21 01/26/21 16:06 21:18 01:47 WBC RBC Hgb MCV MCH RDW Plt Count Lymph % (Auto) [place] % (Auto) Lymph # (Auto) Seg Neutrophils % Seg Neuts % (Manual) Lymphocytes % (Manual) Seg Neutrophils # Seg Neutrophils # Man D-Dimer ABG pH ABG pO2 ABG HCO3 ABG O2 Saturation ABG Base Excess ABG Hemoglobin Oxyhemoglobin Sodium Chloride Carbon Dioxide BUN Creatinine Glucose POC Glucose 267 H 197 H 255 H Calcium Ferritin AST Lactate Dehydrogenase C-Reactive Protein Total Protein Albumin Coronavirus (PCR) 01/26/21 01/26/21 01/26/21 05:23 05:23 05:23 WBC RBC Hgb MCV MCH RDW Plt Count Lymph % (Auto) [place] % (Auto) Lymph # (Auto) Seg Neutrophils % Seg Neuts % (Manual) Lymphocytes % (Manual) Seg Neutrophils # Seg Neutrophils # Man D-Dimer 5809.58 H ABG pH ABG pO2 ABG HCO3 ABG O2 Saturation ABG Base Excess ABG Hemoglobin Oxyhemoglobin Sodium 149 H Chloride 109.3 H Carbon Dioxide BUN 24 H Creatinine Glucose 362 H POC Glucose Calcium Ferritin 877.1 H AST Lactate Dehydrogenase 655 H C-Reactive Protein Total Protein Albumin Coronavirus (PCR) 01/26/21 01/26/21 01/26/21 05:23 06:06 09:28 WBC RBC 5.49 H Hgb MCV 77 L MCH 23 L RDW Plt Count Lymph % (Auto) [place] % (Auto) Lymph # (Auto) 0.8 L Seg Neutrophils % 78.9 H Seg Neuts % (Manual) Lymphocytes % (Manual) Seg Neutrophils # Seg Neutrophils # Man D-Dimer ABG pH ABG pO2 ABG HCO3 ABG O2 Saturation ABG Base Excess ABG Hemoglobin Oxyhemoglobin Sodium Chloride Carbon Dioxide BUN Creatinine Glucose POC Glucose 387 H 308 H Calcium Ferritin AST Lactate Dehydrogenase C-Reactive Protein Total Protein Albumin Coronavirus (PCR) 01/26/21 01/26/21 01/27/21 15:56 21:28 02:51 WBC RBC Hgb MCV MCH RDW Plt Count Lymph % (Auto) [place] % (Auto) Lymph # (Auto) Seg Neutrophils % Seg Neuts % (Manual) Lymphocytes % (Manual) Seg Neutrophils # Seg Neutrophils # Man D-Dimer ABG pH ABG pO2 ABG HCO3 ABG O2 Saturation ABG Base Excess ABG Hemoglobin Oxyhemoglobin Sodium Chloride Carbon Dioxide BUN Creatinine Glucose POC Glucose 172 H 316 H 267 H Calcium Ferritin AST Lactate Dehydrogenase C-Reactive Protein Total Protein Albumin Coronavirus (PCR) 01/27/21 01/27/21 01/27/21 04:22 04:22 04:22 WBC RBC Hgb MCV MCH RDW Plt Count Lymph % (Auto) [place] % (Auto) Lymph # (Auto) Seg Neutrophils % Seg Neuts % (Manual) Lymphocytes % (Manual) Seg Neutrophils # Seg Neutrophils # Man D-Dimer 4046.06 H ABG pH ABG pO2 ABG HCO3 ABG O2 Saturation ABG Base Excess ABG Hemoglobin Oxyhemoglobin Sodium Chloride 107.7 H Carbon Dioxide BUN 30 H Creatinine Glucose 281 H POC Glucose Calcium Ferritin 812.2 H AST Lactate Dehydrogenase 570 H C-Reactive Protein Total Protein Albumin Coronavirus (PCR) 01/27/21 01/27/21 01/27/21 04:22 05:55 12:00 WBC RBC 5.15 H Hgb MCV 76 L MCH 23 L RDW 15.5 H Plt Count Lymph % (Auto) 12.7 L [place] % (Auto) Lymph # (Auto) 0.9 L Seg Neutrophils % 81.3 H Seg Neuts % (Manual) Lymphocytes % (Manual) Seg Neutrophils # Seg Neutrophils # Man D-Dimer ABG pH ABG pO2 ABG HCO3 ABG O2 Saturation ABG Base Excess ABG Hemoglobin Oxyhemoglobin Sodium Chloride Carbon Dioxide BUN Creatinine Glucose POC Glucose 275 H 121 H Calcium Ferritin AST Lactate Dehydrogenase C-Reactive Protein Total Protein Albumin Coronavirus (PCR) 01/27/21 01/27/21 01/28/21 17:32 21:23 02:08 WBC RBC Hgb MCV MCH RDW Plt Count Lymph % (Auto) [place] % (Auto) Lymph # (Auto) Seg Neutrophils % Seg Neuts % (Manual) Lymphocytes % (Manual) Seg Neutrophils # Seg Neutrophils # Man D-Dimer ABG pH ABG pO2 ABG HCO3 ABG O2 Saturation ABG Base Excess ABG Hemoglobin Oxyhemoglobin Sodium Chloride Carbon Dioxide BUN Creatinine Glucose POC Glucose 195 H 179 H 210 H Calcium Ferritin AST Lactate Dehydrogenase C-Reactive Protein Total Protein Albumin Coronavirus (PCR) 01/28/21 01/28/21 01/28/21 05:09 08:44 08:46 WBC RBC Hgb MCV MCH RDW Plt Count Lymph % (Auto) [place] % (Auto) Lymph # (Auto) Seg Neutrophils % Seg Neuts % (Manual) Lymphocytes % (Manual) Seg Neutrophils # Seg Neutrophils # Man D-Dimer 1884.49 H ABG pH ABG pO2 ABG HCO3 ABG O2 Saturation ABG Base Excess ABG Hemoglobin Oxyhemoglobin Sodium Chloride Carbon Dioxide BUN Creatinine Glucose POC Glucose 202 H 191 H Calcium Ferritin AST Lactate Dehydrogenase C-Reactive Protein Total Protein Albumin Coronavirus (PCR) 01/28/21 01/28/21 01/28/21 08:46 08:46 12:18 WBC RBC Hgb MCV MCH RDW Plt Count Lymph % (Auto) [place] % (Auto) Lymph # (Auto) Seg Neutrophils % Seg Neuts % (Manual) Lymphocytes % (Manual) Seg Neutrophils # Seg Neutrophils # Man D-Dimer ABG pH ABG pO2 ABG HCO3 ABG O2 Saturation ABG Base Excess ABG Hemoglobin Oxyhemoglobin Sodium Chloride Carbon Dioxide BUN Creatinine Glucose POC Glucose 221 H Calcium Ferritin 797.7 H AST Lactate Dehydrogenase 556 H C-Reactive Protein Total Protein Albumin Coronavirus (PCR) 01/28/21 01/28/21 01/29/21 18:21 21:45 01:48 WBC RBC Hgb MCV MCH RDW Plt Count Lymph % (Auto) [place] % (Auto) Lymph # (Auto) Seg Neutrophils % Seg Neuts % (Manual) Lymphocytes % (Manual) Seg Neutrophils # Seg Neutrophils # Man D-Dimer ABG pH ABG pO2 ABG HCO3 ABG O2 Saturation ABG Base Excess ABG Hemoglobin Oxyhemoglobin Sodium Chloride Carbon Dioxide BUN Creatinine Glucose POC Glucose 214 H 148 H 248 H Calcium Ferritin AST Lactate Dehydrogenase C-Reactive Protein Total Protein Albumin Coronavirus (PCR) 01/29/21 01/29/21 01/29/21 05:17 10:17 11:39 WBC RBC Hgb MCV MCH RDW Plt Count Lymph % (Auto) [place] % (Auto) Lymph # (Auto) Seg Neutrophils % Seg Neuts % (Manual) Lymphocytes % (Manual) Seg Neutrophils # Seg Neutrophils # Man D-Dimer ABG pH ABG pO2 ABG HCO3 ABG O2 Saturation ABG Base Excess ABG Hemoglobin Oxyhemoglobin Sodium Chloride Carbon Dioxide BUN Creatinine Glucose POC Glucose 256 H 193 H 177 H Calcium Ferritin AST Lactate Dehydrogenase C-Reactive Protein Total Protein Albumin Coronavirus (PCR) 01/29/21 01/29/21 01/30/21 18:06 20:24 06:07 WBC RBC Hgb MCV MCH RDW Plt Count Lymph % (Auto) [place] % (Auto) Lymph # (Auto) Seg Neutrophils % Seg Neuts % (Manual) Lymphocytes % (Manual) Seg Neutrophils # Seg Neutrophils # Man D-Dimer ABG pH ABG pO2 ABG HCO3 ABG O2 Saturation ABG Base Excess ABG Hemoglobin Oxyhemoglobin Sodium Chloride Carbon Dioxide BUN Creatinine Glucose POC Glucose 107 H 114 H 114 H Calcium Ferritin AST Lactate Dehydrogenase C-Reactive Protein Total Protein Albumin Coronavirus (PCR) 01/30/21 01/30/21 01/30/21 12:08 16:11 21:19 WBC RBC Hgb MCV MCH RDW Plt Count Lymph % (Auto) [place] % (Auto) Lymph # (Auto) Seg Neutrophils % Seg Neuts % (Manual) Lymphocytes % (Manual) Seg Neutrophils # Seg Neutrophils # Man D-Dimer ABG pH ABG pO2 ABG HCO3 ABG O2 Saturation ABG Base Excess ABG Hemoglobin Oxyhemoglobin Sodium Chloride Carbon Dioxide BUN Creatinine Glucose POC Glucose 178 H 142 H 244 H Calcium Ferritin AST Lactate Dehydrogenase C-Reactive Protein Total Protein Albumin Coronavirus (PCR) 01/31/21 01/31/21 01/31/21 05:30 06:42 07:50 WBC RBC Hgb MCV MCH RDW Plt Count Lymph % (Auto) [place] % (Auto) Lymph # (Auto) Seg Neutrophils % Seg Neuts % (Manual) Lymphocytes % (Manual) Seg Neutrophils # Seg Neutrophils # Man D-Dimer ABG pH ABG pO2 ABG HCO3 ABG O2 Saturation ABG Base Excess ABG Hemoglobin Oxyhemoglobin Sodium Chloride Carbon Dioxide BUN 20 H Creatinine Glucose 160 H POC Glucose 164 H 152 H Calcium 8.0 L Ferritin AST Lactate Dehydrogenase C-Reactive Protein Total Protein Albumin Coronavirus (PCR) 01/31/21 01/31/21 01/31/21 11:40 16:37 21:01 WBC RBC Hgb MCV MCH RDW Plt Count Lymph % (Auto) [place] % (Auto) Lymph # (Auto) Seg Neutrophils % Seg Neuts % (Manual) Lymphocytes % (Manual) Seg Neutrophils # Seg Neutrophils # Man D-Dimer ABG pH ABG pO2 ABG HCO3 ABG O2 Saturation ABG Base Excess ABG Hemoglobin Oxyhemoglobin Sodium Chloride Carbon Dioxide BUN Creatinine Glucose POC Glucose 129 H 141 H 125 H Calcium Ferritin AST Lactate Dehydrogenase C-Reactive Protein Total Protein Albumin Coronavirus (PCR) 02/01/21 02/01/21 02/01/21 06:26 11:15 16:11 WBC RBC Hgb MCV MCH RDW Plt Count Lymph % (Auto) [place] % (Auto) Lymph # (Auto) Seg Neutrophils % Seg Neuts % (Manual) Lymphocytes % (Manual) Seg Neutrophils # Seg Neutrophils # Man D-Dimer ABG pH ABG pO2 ABG HCO3 ABG O2 Saturation ABG Base Excess ABG Hemoglobin Oxyhemoglobin Sodium Chloride Carbon Dioxide BUN Creatinine Glucose POC Glucose 136 H 260 H 240 H Calcium Ferritin AST Lactate Dehydrogenase C-Reactive Protein Total Protein Albumin Coronavirus (PCR) 02/01/21 02/02/21 02/02/21 22:32 07:15 07:56 WBC 3.1 L RBC Hgb MCV 75 L MCH 23 L RDW Plt Count Lymph % (Auto) 44.9 H [place] % (Auto) 9.2 H Lymph # (Auto) Seg Neutrophils % Seg Neuts % (Manual) Lymphocytes % (Manual) Seg Neutrophils # 1.3 L Seg Neutrophils # Man D-Dimer ABG pH ABG pO2 ABG HCO3 ABG O2 Saturation ABG Base Excess ABG Hemoglobin Oxyhemoglobin Sodium Chloride Carbon Dioxide BUN Creatinine Glucose POC Glucose 298 H 164 H Calcium Ferritin AST Lactate Dehydrogenase C-Reactive Protein Total Protein Albumin Coronavirus (PCR) 02/02/21 02/02/21 02/02/21 07:56 11:35 16:07 WBC RBC Hgb MCV MCH RDW Plt Count Lymph % (Auto) [place] % (Auto) Lymph # (Auto) Seg Neutrophils % Seg Neuts % (Manual) Lymphocytes % (Manual) Seg Neutrophils # Seg Neutrophils # Man D-Dimer ABG pH ABG pO2 ABG HCO3 ABG O2 Saturation ABG Base Excess ABG Hemoglobin Oxyhemoglobin Sodium Chloride Carbon Dioxide 31 H BUN Creatinine 0.4 L Glucose 159 H POC Glucose 297 H 252 H Calcium 8.2 L Ferritin AST Lactate Dehydrogenase C-Reactive Protein Total Protein Albumin Coronavirus (PCR) 02/02/21 02/03/21 02/03/21 22:33 17:04 22:17 WBC RBC Hgb MCV MCH RDW Plt Count Lymph % (Auto) [place] % (Auto) Lymph # (Auto) Seg Neutrophils % Seg Neuts % (Manual) Lymphocytes % (Manual) Seg Neutrophils # Seg Neutrophils # Man D-Dimer ABG pH ABG pO2 ABG HCO3 ABG O2 Saturation ABG Base Excess ABG Hemoglobin Oxyhemoglobin Sodium Chloride Carbon Dioxide BUN Creatinine Glucose POC Glucose 257 H 247 H 278 H Calcium Ferritin AST Lactate Dehydrogenase C-Reactive Protein Total Protein Albumin Coronavirus (PCR) 02/04/21 02/04/21 02/04/21 05:41 07:55 11:56 WBC RBC Hgb MCV MCH RDW Plt Count Lymph % (Auto) [place] % (Auto) Lymph # (Auto) Seg Neutrophils % Seg Neuts % (Manual) Lymphocytes % (Manual) Seg Neutrophils # Seg Neutrophils # Man D-Dimer ABG pH ABG pO2 ABG HCO3 ABG O2 Saturation ABG Base Excess ABG Hemoglobin Oxyhemoglobin Sodium Chloride Carbon Dioxide 31 H BUN 19 H Creatinine 0.5 L Glucose 184 H POC Glucose 182 H 227 H Calcium Ferritin AST Lactate Dehydrogenase C-Reactive Protein Total Protein Albumin Coronavirus (PCR) 02/04/21 02/04/21 02/04/21 12:45 14:52 16:45 WBC 4.0 L RBC Hgb MCV 77 L MCH 24 L RDW 15.5 H Plt Count Lymph % (Auto) [place] % (Auto) Lymph # (Auto) Seg Neutrophils % Seg Neuts % (Manual) Lymphocytes % (Manual) Seg Neutrophils # Seg Neutrophils # Man D-Dimer ABG pH ABG pO2 65.6 L ABG HCO3 30.8 H ABG O2 Saturation 94.0 L ABG Base Excess 5.5 H ABG Hemoglobin 10.3 L Oxyhemoglobin 92.3 L Sodium Chloride Carbon Dioxide BUN Creatinine Glucose POC Glucose 194 H Calcium Ferritin AST Lactate Dehydrogenase C-Reactive Protein Total Protein Albumin Coronavirus (PCR) 02/04/21 02/05/21 02/05/21 22:00 06:55 07:49 WBC RBC Hgb 10.0 L MCV MCH RDW Plt Count Lymph % (Auto) [place] % (Auto) Lymph # (Auto) Seg Neutrophils % Seg Neuts % (Manual) Lymphocytes % (Manual) Seg Neutrophils # Seg Neutrophils # Man D-Dimer ABG pH ABG pO2 ABG HCO3 ABG O2 Saturation ABG Base Excess ABG Hemoglobin Oxyhemoglobin Sodium Chloride Carbon Dioxide BUN Creatinine Glucose POC Glucose 281 H 204 H Calcium Ferritin AST Lactate Dehydrogenase C-Reactive Protein Total Protein Albumin Coronavirus (PCR) 02/05/21 02/05/21 02/05/21 11:23 16:13 16:22 WBC RBC Hgb 10.0 L MCV MCH RDW Plt Count Lymph % (Auto) [place] % (Auto) Lymph # (Auto) Seg Neutrophils % Seg Neuts % (Manual) Lymphocytes % (Manual) Seg Neutrophils # Seg Neutrophils # Man D-Dimer ABG pH ABG pO2 ABG HCO3 ABG O2 Saturation ABG Base Excess ABG Hemoglobin Oxyhemoglobin Sodium Chloride Carbon Dioxide BUN Creatinine Glucose POC Glucose 264 H 202 H Calcium Ferritin AST Lactate Dehydrogenase C-Reactive Protein Total Protein Albumin Coronavirus (PCR) 02/05/21 02/06/21 02/06/21 21:14 04:43 04:43 WBC 4.0 L RBC Hgb 10.0 L MCV 76 L MCH 23 L RDW 15.7 H Plt Count Lymph % (Auto) [place] % (Auto) Lymph # (Auto) Seg Neutrophils % Seg Neuts % (Manual) Lymphocytes % (Manual) Seg Neutrophils # Seg Neutrophils # Man D-Dimer ABG pH ABG pO2 ABG HCO3 ABG O2 Saturation ABG Base Excess ABG Hemoglobin Oxyhemoglobin Sodium Chloride Carbon Dioxide 32 H BUN Creatinine 0.4 L Glucose 163 H POC Glucose 180 H Calcium 8.3 L Ferritin AST Lactate Dehydrogenase C-Reactive Protein Total Protein Albumin Coronavirus (PCR) 02/06/21 02/06/21 02/06/21 08:01 11:44 16:11 WBC RBC Hgb MCV MCH RDW Plt Count Lymph % (Auto) [place] % (Auto) Lymph # (Auto) Seg Neutrophils % Seg Neuts % (Manual) Lymphocytes % (Manual) Seg Neutrophils # Seg Neutrophils # Man D-Dimer ABG pH ABG pO2 ABG HCO3 ABG O2 Saturation ABG Base Excess ABG Hemoglobin Oxyhemoglobin Sodium Chloride Carbon Dioxide BUN Creatinine Glucose POC Glucose 155 H 215 H 247 H Calcium Ferritin AST Lactate Dehydrogenase C-Reactive Protein Total Protein Albumin Coronavirus (PCR) 02/06/21 02/07/21 02/07/21 23:40 08:01 11:54 WBC RBC Hgb MCV MCH RDW Plt Count Lymph % (Auto) [place] % (Auto) Lymph # (Auto) Seg Neutrophils % Seg Neuts % (Manual) Lymphocytes % (Manual) Seg Neutrophils # Seg Neutrophils # Man D-Dimer ABG pH ABG pO2 ABG HCO3 ABG O2 Saturation ABG Base Excess ABG Hemoglobin Oxyhemoglobin Sodium Chloride Carbon Dioxide BUN Creatinine Glucose POC Glucose 267 H 233 H 227 H Calcium Ferritin AST Lactate Dehydrogenase C-Reactive Protein Total Protein Albumin Coronavirus (PCR) 02/07/21 02/07/21 02/07/21 15:48 20:58 20:58 WBC RBC Hgb MCV MCH RDW Plt Count Lymph % (Auto) [place] % (Auto) Lymph # (Auto) Seg Neutrophils % Seg Neuts % (Manual) Lymphocytes % (Manual) Seg Neutrophils # Seg Neutrophils # Man D-Dimer ABG pH ABG pO2 ABG HCO3 ABG O2 Saturation ABG Base Excess ABG Hemoglobin Oxyhemoglobin Sodium Chloride Carbon Dioxide 32 H BUN Creatinine 0.5 L 0.5 L Glucose 236 H POC Glucose 257 H Calcium 8.3 L Ferritin AST Lactate Dehydrogenase C-Reactive Protein Total Protein Albumin Coronavirus (PCR) 02/07/21 02/08/21 02/08/21 22:10 04:46 04:46 WBC 4.2 L RBC Hgb 9.7 L MCV 78 L MCH 24 L RDW 17.9 H Plt Count 110 L Lymph % (Auto) [place] % (Auto) Lymph # (Auto) Seg Neutrophils % Seg Neuts % (Manual) Lymphocytes % (Manual) Seg Neutrophils # Seg Neutrophils # Man D-Dimer ABG pH ABG pO2 ABG HCO3 ABG O2 Saturation ABG Base Excess ABG Hemoglobin Oxyhemoglobin Sodium Chloride Carbon Dioxide BUN Creatinine 0.4 L Glucose 220 H POC Glucose 241 H Calcium 8.0 L Ferritin AST Lactate Dehydrogenase C-Reactive Protein Total Protein Albumin Coronavirus (PCR) 02/08/21 02/08/21 02/08/21 08:05 11:36 15:44 WBC RBC Hgb MCV MCH RDW Plt Count Lymph % (Auto) [place] % (Auto) Lymph # (Auto) Seg Neutrophils % Seg Neuts % (Manual) Lymphocytes % (Manual) Seg Neutrophils # Seg Neutrophils # Man D-Dimer ABG pH ABG pO2 ABG HCO3 ABG O2 Saturation ABG Base Excess ABG Hemoglobin Oxyhemoglobin Sodium Chloride Carbon Dioxide BUN Creatinine Glucose POC Glucose 208 H 200 H 149 H Calcium Ferritin AST Lactate Dehydrogenase C-Reactive Protein Total Protein Albumin Coronavirus (PCR) 02/08/21 02/09/21 02/09/21 21:35 04:24 07:39 WBC RBC Hgb MCV MCH RDW Plt Count Lymph % (Auto) [place] % (Auto) Lymph # (Auto) Seg Neutrophils % Seg Neuts % (Manual) Lymphocytes % (Manual) Seg Neutrophils # Seg Neutrophils # Man D-Dimer ABG pH ABG pO2 ABG HCO3 ABG O2 Saturation ABG Base Excess ABG Hemoglobin Oxyhemoglobin Sodium Chloride Carbon Dioxide BUN Creatinine 0.4 L Glucose 205 H POC Glucose 249 H 205 H Calcium 8.1 L Ferritin AST Lactate Dehydrogenase C-Reactive Protein Total Protein Albumin Coronavirus (PCR) 02/09/21 02/09/21 02/09/21 11:53 16:52 21:26 WBC RBC Hgb MCV MCH RDW Plt Count Lymph % (Auto) [place] % (Auto) Lymph # (Auto) Seg Neutrophils % Seg Neuts % (Manual) Lymphocytes % (Manual) Seg Neutrophils # Seg Neutrophils # Man D-Dimer ABG pH ABG pO2 ABG HCO3 ABG O2 Saturation ABG Base Excess ABG Hemoglobin Oxyhemoglobin Sodium Chloride Carbon Dioxide BUN Creatinine Glucose POC Glucose 303 H 164 H 257 H Calcium Ferritin AST Lactate Dehydrogenase C-Reactive Protein Total Protein Albumin Coronavirus (PCR) 02/10/21 02/10/21 02/10/21 09:30 09:38 11:45 WBC RBC Hgb MCV MCH RDW Plt Count Lymph % (Auto) [place] % (Auto) Lymph # (Auto) Seg Neutrophils % Seg Neuts % (Manual) Lymphocytes % (Manual) Seg Neutrophils # Seg Neutrophils # Man D-Dimer ABG pH 7.309 L ABG pO2 71.2 L ABG HCO3 29.1 H ABG O2 Saturation 92.4 L ABG Base Excess ABG Hemoglobin 11.2 L Oxyhemoglobin 90.2 L Sodium Chloride Carbon Dioxide BUN Creatinine Glucose POC Glucose 240 H 257 H Calcium Ferritin AST Lactate Dehydrogenase C-Reactive Protein Total Protein Albumin Coronavirus (PCR) 02/10/21 02/10/21 02/11/21 17:12 21:26 04:50 WBC RBC Hgb MCV 78 L MCH 24 L RDW 20.3 H Plt Count 133 L Lymph % (Auto) [place] % (Auto) Lymph # (Auto) Seg Neutrophils % Seg Neuts % (Manual) Lymphocytes % (Manual) Seg Neutrophils # Seg Neutrophils # Man D-Dimer ABG pH ABG pO2 ABG HCO3 ABG O2 Saturation ABG Base Excess ABG Hemoglobin Oxyhemoglobin Sodium Chloride Carbon Dioxide BUN Creatinine Glucose POC Glucose 178 H 362 H Calcium Ferritin AST Lactate Dehydrogenase C-Reactive Protein Total Protein Albumin Coronavirus (PCR) 02/11/21 02/11/21 02/11/21 08:02 11:52 17:14 WBC RBC Hgb MCV MCH RDW Plt Count Lymph % (Auto) [place] % (Auto) Lymph # (Auto) Seg Neutrophils % Seg Neuts % (Manual) Lymphocytes % (Manual) Seg Neutrophils # Seg Neutrophils # Man D-Dimer ABG pH ABG pO2 ABG HCO3 ABG O2 Saturation ABG Base Excess ABG Hemoglobin Oxyhemoglobin Sodium Chloride Carbon Dioxide BUN Creatinine Glucose POC Glucose 263 H 433 H 212 H Calcium Ferritin AST Lactate Dehydrogenase C-Reactive Protein Total Protein Albumin Coronavirus (PCR) 02/11/21 02/12/21 02/12/21 21:39 08:24 11:21 WBC RBC Hgb MCV MCH RDW Plt Count Lymph % (Auto) [place] % (Auto) Lymph # (Auto) Seg Neutrophils % Seg Neuts % (Manual) Lymphocytes % (Manual) Seg Neutrophils # Seg Neutrophils # Man D-Dimer ABG pH ABG pO2 ABG HCO3 ABG O2 Saturation ABG Base Excess ABG Hemoglobin Oxyhemoglobin Sodium Chloride Carbon Dioxide BUN Creatinine Glucose POC Glucose 248 H 295 H 403 H Calcium Ferritin AST Lactate Dehydrogenase C-Reactive Protein Total Protein Albumin Coronavirus (PCR) 02/12/21 02/13/21 02/13/21 16:29 07:32 12:19 WBC RBC Hgb MCV MCH RDW Plt Count Lymph % (Auto) [place] % (Auto) Lymph # (Auto) Seg Neutrophils % Seg Neuts % (Manual) Lymphocytes % (Manual) Seg Neutrophils # Seg Neutrophils # Man D-Dimer ABG pH ABG pO2 ABG HCO3 ABG O2 Saturation ABG Base Excess ABG Hemoglobin Oxyhemoglobin Sodium Chloride Carbon Dioxide BUN Creatinine Glucose POC Glucose 238 H 299 H 357 H Calcium Ferritin AST Lactate Dehydrogenase C-Reactive Protein Total Protein Albumin Coronavirus (PCR) 02/13/21 02/13/21 02/14/21 16:28 21:45 07:44 WBC RBC Hgb MCV MCH RDW Plt Count Lymph % (Auto) [place] % (Auto) Lymph # (Auto) Seg Neutrophils % Seg Neuts % (Manual) Lymphocytes % (Manual) Seg Neutrophils # Seg Neutrophils # Man D-Dimer ABG pH ABG pO2 ABG HCO3 ABG O2 Saturation ABG Base Excess ABG Hemoglobin Oxyhemoglobin Sodium Chloride Carbon Dioxide BUN Creatinine Glucose POC Glucose 270 H 346 H 234 H Calcium Ferritin AST Lactate Dehydrogenase C-Reactive Protein Total Protein Albumin Coronavirus (PCR)
[2021-02-14] MEDS: IPRATROPIUM/ALBUTEROL SULFATE 3 ML AMPUL.NEB IH SCH ×3 (21:15→22:24)
[2021-02-14] MEDS: MIRTAZAPINE 15 MG TAB PO SCH (21:34)
[2021-02-14] MEDS: INSULIN GLARGINE 100 UNITS/ML SUB-Q SCH (21:37)
[2021-02-15] MEDS: methylPREDNISolone Sod Succinate 40 MG/1 ML INJ IV SCH ×3 (06:41→23:19)
--- NOTE | 2021-02-15 07:14 | Progress Note ---
Assessment and Plan Assessment and plan: This is a 55-year-old female with schizophrenia who presented to [facility] on 01/18 for shortness of breath, cough, subjective fever and not feeling well for the last couple days with known COVID-19 exposure. While in the emergency room patient was switched from non rebreather mask to high flow nasal cannula and his CTA chest showed no acute pulmonary embolism. Patient was admitted to the hospital service as a COVID-19 PUI with consults to CCM, infectious disease, psych. Severe COVID-19 pneumonia Acute hypoxic respiratory failure Obesity Schizophrenia Leukocytosis Hyperglycemia Schizophrenia Hypernatremia Hypercholermia -CCM, infectious disease, psychiatry consulted, appreciate recommendations -COVID-19 PCR positive -Droplet/contact isolation -Remdesivir, azithromycin, ceftriaxone, dexamethasone (twice daily dosing) -s/p Actemra -Wean supplemental oxygen as tolerated, pulmonary hygiene -Prone as tolerated -Trend COVID-19 inflammatory markers for risk stratification, CBC, CMP -SSI, Lantus -01/18 bilateral lower extremity Doppler ultrasound negative for DVT -01/17 CTA shows no evidence of pulmonary embolism, extensive bilateral pneumonia, hepatomegaly with hepatic steatosis 01/18/2021 -Acute hypoxic respiratory failure requiring high flow oxygen 40 L. Nebulizer treatment -Patient is admitted for suspected Covid pneumonia. Patient is on dexamethasone, COVID-19 test is pending. Patient is on empiric antibiotics. -ID consulted, will consult pulmonary. -Patient has hyponatremia yesterday and I will repeat and if it is low I will manage accordingly -Patient has elevated D-dimer and CTA chest and bilateral Doppler ultrasound of the lower extremities pending 01/19/2021 -Acute hypoxic respiratory failure currently on BiPAP, nebulizer treatment. I will put in orders to transfer to [facility] yesterday but there was no bed. -Patient is positive for Covid and she is on Decadron and remdesivir. Actemra was ordered on 01/19/2021 -ID evaluated the patient and recommend to continue Decadron and remdesivir, also to continue ceftriaxone and azithromycin for 5 days because of the elevated procalcitonin level. Pulmonary was consulted and recommend to continue current management and add Lasix -CTA chest was done and significant for bilateral pulmonary opacities, negative for PE, Doppler ultrasound of the lower extremities was negative for DVT. -Prognosis is guarded. -Patient is currently on BiPAP and she was agitated and trying to take off the BiPAP, I put the patient on restraints. Discussed with houseman to transfer the patient to IMCU and if there is no bed she need to be transferred to CCU. 01/20: Patient received 5 mg of Haldol for severe agitation and refusal to keep high flow nasal cannula in place. [facility] ordered Lasix again. Psych was consulted today. Patient was on BiPAP therapy all night and RT attempted to give her a break patient is on high flow nasal cannula however she did not keep this in place and was paced back on BiPAP after receiving Haldol. She was started on Lantus today. 01/21: Patient is on BiPAP and on time examination was on 20/10 100% FiO2. Patient was started on Lantus. Psych consult completed and started on Haldol p.o. twice daily and Mirtazepin PO daily. No acute events reported overnight. Patient's D-dimer is greater than 10,000 started on prophylactic Lovenox as recent CTA chest and bilateral lower extremity Doppler ultrasound were negative. 01/22: Patient has been taken off BiPAP therapy and placed on high flow nasal cannula. Patient has been downgraded to IMCU. Patient's hyponatremia and hypochloremia have worsened. 01/23: Patient was on BiPAP overnight with FiO2 85% and IPAP 20/EPAP 10. Patient currently with high flow nasal cannula 40 L O2 with an FiO2 of 100%. Continue remdesivir and dexamethasone. Patient is s/p Actemra on 01/20. Continue empiric antibiotics per ID recommendations. Continue anticoagulation per protocol. 01/24: Patient is tachycardic and hypertensive and [facility] has opted to add amlo dipine. Patient remains on 40 L 100% high flow nasal cannula. Continue remdesivir and dexamethasone. Patient is s/p Actemra on 01/20. Continue empiric antibiotics per ID recommendations. Continue anticoagulation per protocol. 01/25: Patient currently with high flow nasal cannula 40 L/min with FiO2 100%. Continue dexamethasone. Patient has completed remdesivir and s/p Actemra on 01/20. Continue full dose anticoagulation given high elevated D-dimer. Continue to trend inflammatory markers. Prognosis remains guarded. 01/26: Patient currently with high flow nasal cannula 35 L/min and FiO2 90%. Continue dexamethasone. Patient has completed remdesivir and s/p Actemra on 01/20. Continue full dose anticoagulation given high elevated D-dimer. Continue to trend inflammatory markers. Prognosis remains guarded. 01/27: Patient currently with high flow nasal cannula/Vapotherm 35 L/min O2 with F iO2 90%. Patient has completed remdesivir and s/p Actemra on 01/20. Continue full dose anticoagulation given high elevated D-dimer. Continue to trend inflammatory markers. Prognosis remains guarded. 01/28; Patient currently with high flow nasal cannula/Vapotherm 35 L/min O2 with FiO2 90%. Patient has completed remdesivir and s/p Actemra on 01/20. Continue full dose anticoagulation given high elevated D-dimer. Continue to trend inflammatory markers. Prognosis remains guarded. 01/29; patient is currently on 35 L of high flow oxygen. Prognosis guarded. Patient can be transferred to regular floor. 01/30/2021; patient is currently on 35 L of high flow oxygen, FiO2 of 65%. Patient has flat affect and did not talk to me. Patient refused most of her p.o. medications. Patient finished remdesivir, steroid. 01/31/2021; patient is on 35 L of high flow oxygen, FiO2 65%. Patient was calm and cooperative and communicative today. pulmonary is following. Patient finished remdesivir and steroid. 02/01/2021; patient was on 40 L of high flow oxygen.. I have called and discussed with her mother yesterday. Her mother told me patient was last followed at [facility] and I called facility and they told me medication she was on and I put these medications. Patient refused to eat so I put the patient on NG tube feeding for medications. Prognosis is guarded. 02/02/2021; patient is on 4 L of high flow oxygen with FiO2 of 60%. Her outpatient psych medications were reconciled. Patient was taking medications and as needed NG tube. Pulmonary is following the patient. 02/03/21: Patient noted with mild epistaxis this morning we will order some Afrin to help. Continue current management patient is on 35 L high flow. No worsening distress but still with intermittent confusion sometimes takes off the oxygen. Will repeat a trial of Lasix and monitor renal function with a.m. labs. Plan discussed with nurse at bedside. I also encouraged proning again. 02/04: Unfortunately still with hypoxia desaturating required increased to 50 L and 70% will gradually taper down. Patient due to her underlying psych history of schizophrenia is noncompliant. Daughter is working on getting guardianship over the patient. This will likely be a slow process nevertheless we will still obtain a CT of the head to ensure no other pathology. We will get an ABG and a chest x-ray today. 02/05: Patient overnight had an episode where she coughed up blood. H&H has remained stable. She has been since discontinued from full dose anticoagulants to DVT prophylactic dose. Chest x-ray shows mild worsening of congestion. Will discuss with pulmonary if patient will benefit from BiPAP during hours of sleep. Still awaiting information from family on prior psych medications that the hayden nguyen was on psych review with psychiatry team as her mental status remains a deterrent and an impediment to oxygen management. We will give a trial dose of Lasix x 3 days. Will transfer to [facility] for closer monitoring 02/06: Continue supportive care, 2 more days of lasix, monitor BMP closely wean oxygen as tolerated, pulmonary input noted 02/07: Continues on High flow. Refusing medications, still with severe hypoxia, Discussed with Psych to re-evaluate the patient. 02/08: Unfortunately patient was not seen by psych yesterday and I still do not have home medication listed I asked the family and they promised to bring her in. We discussed with nursing staff to ask again. We will also reconsult psych as her underlying psych condition is precluding improvement due to her refusal of medical treatments. Patient continues on high flow 10 today will be to further wean down if tolerated. She is still refusing prone position 02/09: Patient remains on oxygen, not compliance, continues on restraints to assist with compliance, will try to wean again 02/10: Restart lasix, discussed with Vice President [employer]ostatistics considering starting on PrECEDEX, Monitor electrolytes. Prognosis is guarded. 02/11/2021; patient is on Lasix, Precedex and Solu-Medrol 40 mg every 8 hours. Patient's blood sugar is elevated and I increase Lantus from 20-25 nightly, give her a dose of 10 units of Lantus now. Will monitor blood sugar. Prognosis very poor. 02/12/2021; patient is on 40 L of high flow oxygen, 94% FiO2. Pulmonary is following the patient and recommendations noted. Dr Mancilla Discussed with the patient and the mother about the plan of care and the high risk of her condition and refusal of care. 02/13/2021; patient was on 30 L of high flow oxygen with FiO2 of 90%. Pulmonary is following the patient. Continue IMC care. Prognosis is guarded. 02/14/2021; patient is on 30 L of high flow oxygen with FiO2 of 90%. Continue inpatient care. 02/15/2021; patient was alert and oriented. Patient states she is feeling okay today. Patient is on 30 L of high flow oxygen with FiO2 of 90%. Patient was given Lasix yesterday. Wean as tolerated. History Interval history: Patient was seen and evaluated this morning Patient was calm and cooperative, patient was alert and oriented Patient was on 30 L of oxygen with FiO2 of 90% Hospitalist Physical - Physical exam Narrative exam: Patient was 30 L of oxygen with FiO2 of 90%. The patient appeared well nourished and normally developed. Vital signs as documented. Head exam is unremarkable. No scleral icterus . Neck is without jugular venous distension, thyromegaly, or carotid bruits. Lungs decreased air entry on both lungs Cardiac exam reveals regular rate and Rhythm. Abdominal exam reveals normal bowel sounds, nontender, no organomegaly. Extremities are nonedematous and both femoral and pedal pulses are normal. NEGATIVE CHECKER: Patient was alert and oriented. - Constitutional Vitals: Temp Pulse Resp BP Pulse Ox 97.5 F L 83 18 120/65 97 02/15/21 00:40 02/15/21 00:40 02/15/21 00:40 02/15/21 00:40 02/15/21 03:37 General appearance: Present: no acute distress, well-nourished HEART Score - HEART Score Troponin: Troponin T < 0.010 ng/mL (0.00-0.029) 01/17/21 16:41 Results - Labs CBC & Chem 7: 02/11/21 04:50 02/11/21 04:50 Labs: Laboratory Last Values WBC 6.4 K/mm3 (4.5-11.0) 02/11/21 04:50 RBC 4.53 M/mm3 (3.65-5.03) 02/11/21 04:50 Hgb 10.9 gm/dl (10.1-14.3) 02/11/21 04:50 Hct 35.5 % (30.3-42.9) 02/11/21 04:50 MCV 78 fl (79-97) L 02/11/21 04:50 MCH 24 pg (28-32) L 02/11/21 04:50 MCHC 31 % (30-34) 02/11/21 04:50 RDW 20.3 % (13.2-15.2) H 02/11/21 04:50 Plt Count 133 K/mm3 (140-440) L 02/11/21 04:50 Lymph % (Auto) 44.9 % (13.4-35.0) H 02/02/21 07:56 [place] % (Auto) 9.2 % (0.0-7.3) H 02/02/21 07:56 Eos % (Auto) 3.6 % (0.0-4.3) 02/02/21 07:56 Baso % (Auto) 0.3 % (0.0-1.8) 02/02/21 07:56 Lymph # (Auto) 1.4 K/mm3 (1.2-5.4) 02/02/21 07:56 [place] # (Auto) 0.3 K/mm3 (0.0-0.8) 02/02/21 07:56 Eos # (Auto) 0.1 K/mm3 (0.0-0.4) 02/02/21 07:56 Baso # (Auto) 0.0 K/mm3 (0.0-0.1) 02/02/21 07:56 Add Manual Diff Complete 01/19/21 05:11 Total Counted 100 01/19/21 05:11 Seg Neutrophils % 42.0 % (40.0-70.0) 02/02/21 07:56 Seg Neuts % (Manual) 88.0 % (40.0-70.0) H 01/19/21 05:11 Lymphocytes % (Manual) 10.0 % (13.4-35.0) L 01/19/21 05:11 Monocytes % (Manual) 2.0 % (0.0-7.3) 01/19/21 05:11 Nucleated RBC % Not Reportable 01/19/21 05:11 Seg Neutrophils # 1.3 K/mm3 (1.8-7.7) L 02/02/21 07:56 Seg Neutrophils # Man 12.5 K/mm3 (1.8-7.7) H 01/19/21 05:11 Band Neutrophils # 0.0 K/mm3 01/19/21 05:11 Lymphocytes # (Manual) 1.4 K/mm3 (1.2-5.4) 01/19/21 05:11 Abs React Lymphs (Man) 0.0 K/mm3 01/19/21 05:11 Monocytes # (Manual) 0.3 K/mm3 (0.0-0.8) 01/19/21 05:11 Eosinophils # (Manual) 0.0 K/mm3 (0.0-0.4) 01/19/21 05:11 Basophils # (Manual) 0.0 K/mm3 (0.0-0.1) 01/19/21 05:11 Metamyelocytes # 0.0 K/mm3 01/19/21 05:11 Myelocytes # 0.0 K/mm3 01/19/21 05:11 Promyelocytes # 0.0 K/mm3 01/19/21 05:11 Blast Cells # 0.0 K/mm3 01/19/21 05:11 WBC Morphology Not Reportable 01/19/21 05:11 Hypersegmented Neuts Not Reportable 01/19/21 05:11 Hyposegmented Neuts Not Reportable 01/19/21 05:11 Hypogranular Neuts Not Reportable 01/19/21 05:11 Smudge Cells Not Reportable 01/19/21 05:11 Toxic Granulation Not Reportable 01/19/21 05:11 Toxic Vacuolation Not Reportable 01/19/21 05:11 Dohle Bodies Not Reportable 01/19/21 05:11 Pelger-Huet Anomaly Not Reportable 01/19/21 05:11 Inder Rods Not Reportable 01/19/21 05:11 Platelet Estimate Consistent w auto 01/19/21 05:11 Clumped Platelets Not Reportable 01/19/21 05:11 Plt Clumps, EDTA Not Reportable 01/19/21 05:11 Large Platelets Not Reportable 01/19/21 05:11 Giant Platelets Not Reportable 01/19/21 05:11 Platelet Satelliting Not Reportable 01/19/21 05:11 Plt Morphology Comment Not Reportable 01/19/21 05:11 RBC Morphology Not Reportable 01/19/21 05:11 Dimorphic RBCs Not Reportable 01/19/21 05:11 Polychromasia Not Reportable 01/19/21 05:11 Hypochromasia 1+ 01/19/21 05:11 Poikilocytosis Not Reportable 01/19/21 05:11 Anisocytosis Not Reportable 01/19/21 05:11 Microcytosis Not Reportable 01/19/21 05:11 Macrocytosis Not Reportable 01/19/21 05:11 Spherocytes Not Reportable 01/19/21 05:11 Pappenheimer Bodies Not Reportable 01/19/21 05:11 Sickle Cells Not Reportable 01/19/21 05:11 Target Cells Not Reportable 01/19/21 05:11 Tear Drop Cells Not Reportable 01/19/21 05:11 Ovalocytes Not Reportable 01/19/21 05:11 Helmet Cells Not Reportable 01/19/21 05:11 [place] Bodies Not Reportable 01/19/21 05:11 [place] Rings Not Reportable 01/19/21 05:11 [place] Cells Not Reportable 01/19/21 05:11 Bite Cells Not Reportable 01/19/21 05:11 Crenated Cell Not Reportable 01/19/21 05:11 Elliptocytes Not Reportable 01/19/21 05:11 Acanthocytes (Spur) Not Reportable 01/19/21 05:11 Rouleaux Not Reportable 01/19/21 05:11 Hemoglobin C Crystals Not Reportable 01/19/21 05:11 Schistocytes Not Reportable 01/19/21 05:11 Malaria parasites Not Reportable 01/19/21 05:11 Cahi Bodies Not Reportable 01/19/21 05:11 Hem Pathologist Commnt No 01/19/21 05:11 PT 13.6 Sec. (12.2-14.9) 02/04/21 14:52 INR 1.06 (0.87-1.13) 02/04/21 14:52 APTT 30.7 Sec. (24.2-36.6) 02/04/21 14:52 D-Dimer 1884.49 ng/mlDDU (0-234) H 01/28/21 08:46 ABG pH 7.309 pH Units (7.350-7.450) L 02/10/21 09:30 ABG pCO2 59.4 mm Hg 02/10/21 09:30 ABG pO2 71.2 mm Hg (80.0-90.0) L 02/10/21 09:30 ABG HCO3 29.1 mmol/L (20.0-26.0) H 02/10/21 09:30 ABG O2 Saturation 92.4 % (95.0-99.0) L 02/10/21 09:30 ABG O2 Content 14.2 (0.0-44) 02/10/21 09:30 ABG Base Excess 1.8 mmol/L (-2.0-3.0) 02/10/21 09:30 ABG Hemoglobin 11.2 gm/dl (12.0-16.0) L 02/10/21 09:30 ABG Carboxyhemoglobin 1.8 % (0.0-5.0) 02/10/21 09:30 ABG Methemoglobin 0.6 % (0.0-1.5) 02/10/21 09:30 Oxyhemoglobin 90.2 % (95.0-99.0) L 02/10/21 09:30 FiO2 100 % 02/10/21 09:30 Sodium 142 mmol/L (137-145) 02/09/21 04:24 Potassium 3.9 mmol/L (3.6-5.0) 02/09/21 04:24 Chloride 105.5 mmol/L (98-107) 02/09/21 04:24 Carbon Dioxide 29 mmol/L (22-30) 02/09/21 04:24 Anion Gap 11 mmol/L 02/09/21 04:24 BUN 11 mg/dL (7-17) 02/09/21 04:24 Creatinine 0.7 mg/dL (0.6-1.2) D 02/11/21 04:50 Estimated GFR > 60 ml/min 02/11/21 04:50 BUN/Creatinine Ratio 28 % 02/09/21 04:24 Glucose 205 mg/dL (65-100) H 02/09/21 04:24 POC Glucose 159 mg/dL (70-105) H 02/14/21 21:27 Lactic Acid 1.70 mmol/L (0.7-2.0) 01/17/21 16:41 Calcium 8.1 mg/dL (8.4-10.2) L 02/09/21 04:24 Ferritin 797.7 ng/mL (10.0-200.0) H 01/28/21 08:46 Total Bilirubin 0.30 mg/dL (0.1-1.2) 01/21/21 11:29 AST 34 units/L (5-40) 01/21/21 11:29 ALT 38 units/L (7-56) 01/21/21 11:29 Alkaline Phosphatase 117 units/L (35-129) 01/21/21 11:29 Ammonia 43.0 umol/L (25-60) 02/04/21 14:52 Lactate Dehydrogenase 556 units/L (91-180) H 01/28/21 08:46 Troponin T < 0.010 ng/mL (0.00-0.029) 01/17/21 16:41 C-Reactive Protein 0.20 mg/dL (0.00-1.30) 01/28/21 08:46 NT-Pro-B Natriuret Pep 40.88 pg/mL (0-900) 01/17/21 16:41 Total Protein 7.3 g/dL (6.3-8.2) 01/21/21 11:29 Albumin 3.4 g/dL (3.9-5) L 01/21/21 11:29 Albumin/Globulin Ratio 0.9 % 01/21/21 11:29 Procalcitonin 0.39 ng/mL (<0.15) 01/17/21 17:46 Coronavirus (PCR) Negative (Negative) 02/11/21 09:10 Estrada/IV: Voiding Method External Female Catheter Active Medications - Current Medications Current Medications: Generic Name Dose Route Start Last Admin Trade Name Freq PRN Reason Stop Dose Admin Acetaminophen 650 mg 01/18/21 00:36 02/11/21 22:49 Acetaminophen 325 Mg Tab PO 650 mg Q4H PRN Administration Pain MILD(1-3)/Fever >100.5/PAN Albuterol/Ipratropium 1 ampul 02/01/21 14:00 02/14/21 22:24 Ipratropium/Albuterol Sulfate 3 Ml Ampul.Neb IH Not Given TIDRT REPLACED BY [facility] Apixaban 2.5 mg 02/04/21 22:00 02/14/21 21:34 Apixaban 2.5 Mg Tab PO 2.5 mg Q12HR PJ Administration Protocol Aripiprazole 15 mg 01/31/21 13:00 02/14/21 10:06 Aripiprazole 15 Mg Tab PO 15 mg QDAY PJ Administration Ascorbic Acid 1,000 mg 02/04/21 10:00 02/14/21 21:34 Ascorbic Acid 500 Mg Tab PO 1,000 mg BID PJ Administration Cholecalciferol 5,000 unit 02/04/21 10:00 02/14/21 09:24 Cholecalciferol (Vit D3) 5,000 Unit Tab PO 5,000 unit DAILY PJ Administration Divalproex Sodium 500 mg 01/31/21 12:00 02/14/21 09:24 Divalproex Er 500 Mg Tab PO 500 mg QDAY PJ Administration Famotidine 20 mg 01/18/21 10:00 02/14/21 21:35 Famotidine 20 Mg Tab PO 20 mg BID PJ Administration Hydralazine HCl 10 mg 01/18/21 00:38 02/14/21 06:22 Hydralazine 20 Mg/1 Ml Inj IV 10 mg Q6H PRN Administration htn Hydromorphone HCl 0.5 mg 01/20/21 11:00 Hydromorphone 1 Mg/1 Ml Inj IV Q6H PRN Pain , Severe (7-10) Hydrophilic Ointment 1 applic 02/03/21 12:00 Petrolatum,White 30 Gm Oint TP PRN PRN Skin Irritation Insulin Glargine 25 units 02/11/21 22:00 02/14/21 21:37 Insulin Glargine 100 Units/Ml SUB-Q 25 units QHS PJ Administration Insulin Human Lispro 0 unit 02/01/21 11:30 02/14/21 21:38 Insulin Lispro 100 Unit/Ml SUB-Q 3 unit ACHS PJ Administration Protocol Methylprednisolone Sodium Succinate 40 mg 02/10/21 14:00 02/15/21 06:41 Methylprednisolone Sod Succinate 40 Mg/1 Ml Inj IV 40 mg Q8HR PJ Administration Metoprolol Tartrate 12.5 mg 02/01/21 12:00 02/14/21 22:44 Metoprolol Tartrate 25 Mg Tab PO 12.5 mg BID PJ Administration Mirtazapine 7.5 mg 01/21/21 22:00 02/14/21 21:34 Mirtazapine 15 Mg Tab PO 7.5 mg QHS PJ Administration Ondansetron HCl 4 mg 01/18/21 00:36 Ondansetron 4 Mg/2 Ml Inj IV Q8H PRN Nausea And Vomiting Oxymetazoline HCl 2 spray 02/03/21 12:00 02/03/21 13:17 Oxymetazoline 0.05% Nasal [place] NS 2 spray Q12H PRN Administration Congestion Paliperidone 6 mg 01/31/21 13:00 02/14/21 10:06 Paliperidone Er 3 Mg Tab PO 6 mg QDAY PJ Administration Sodium Chloride 10 ml 01/18/21 10:00 02/14/21 21:41 Sodium Chloride 0.9% 10 Ml Flush Syringe IV 10 ml BID PJ Administration Sodium Chloride 10 ml 01/18/21 00:36 Sodium Chloride 0.9% 10 Ml Flush Syringe IV PRN PRN LINE FLUSH Zinc Sulfate 220 mg 02/04/21 10:00 02/14/21 09:27 Zinc Sulfate 220 Mg Cap PO 220 mg QDAY PJ Administration Nutrition/Malnutrition Assess - Dietary Evaluation Nutrition/Malnutrition Findings: Nutrition Notes Start: 01/24/21 10:40 Freq: Status: Active Protocol: Document 02/13/21 11:12 VINAY (Rec: 02/13/21 11:16 VINAY [email or web address]) Co-Sign 02/13/21 11:12 JUAN ALBERTO Nutrition Notes Initial or Follow up Reassessment Current Diagnosis Respiratory Failure Other Pertinent Diagnosis pneu, COVID-19(-), AMS Current Diet Cardiac/Consistent CHO Labs/Tests No new labs Pertinent Medications Solumedrol vitamin C vitamin D3 Height 5 ft 4 in Weight 93.2 kg [place] Body Weight (kg) 54.54 BMI 35.2 Weight Status Obese Subjective/Other Information F/U for stable intakes. Per RN , pt consuming 100% meals and ONS. Percent of energy/protein needs met: 100%/100% (PO only) Burn Absent Trauma Absent GI Symptoms None Current % PO Good (75-100%) Minimum of two criteria No Energy Intake (non-severe) <75% Estimated Energy Requirement >7 days #1 Nutrition Diagnosis Inadequate oral intake As Evidenced by Signs and Symptoms pt consuming 100% meals and ONS Diagnosis Progress(for reassessment Improved documentation) Is patient on ventilator? No Is Patient Ambulatory and/or Out of Bed No REE-([facility]-confined to bed) 1812.660 Kcal/Kg value to use for calculation 15 Approximate Energy Requirements Using 1398 kcal/Kg Calculation Used for Recommendations Kcal/kg Additional Notes PRO needs: 59-74g (0.8-1g/kg AdBW 74 kg) Fluid needs: 1 mL/kcal or per MD Nutrition Intervention Change Diet Order: Continue current Add Supplement/Snack (indicate name/kcal D/C Glucerna /protein ) Goal #1 Meet at least 75% of energy and protein needs via PO and ONS intakes Anticipated Discharge Needs: Cardiac/Consistent CHO Follow-Up By: 02/18/21 Additional Comments F/U for stable intakes
[2021-02-15] MEDS: INSULIN LISPRO 100 UNIT/ML SUB-Q SCH ×4 (09:06→23:18)
[2021-02-15] MEDS: IPRATROPIUM/ALBUTEROL SULFATE 3 ML AMPUL.NEB IH SCH ×3 (10:41→19:10)
[2021-02-15] MEDS: ARIPiprazole 15 MG TAB PO SCH (11:07)
[2021-02-15] MEDS: METOPROLOL TARTRATE 25 MG TAB PO SCH ×2 (11:08→23:18)
[2021-02-15] MEDS: APIXABAN 2.5 MG TAB PO SCH ×2 (11:08→23:18)
[2021-02-15] MEDS: FAMOTIDINE 20 MG TAB PO SCH ×2 (11:09→23:18)
[2021-02-15] MEDS: ASCORBIC ACID 500 MG TAB PO SCH ×2 (11:09→23:19)
[2021-02-15] MEDS: ZINC SULFATE 220 MG CAP PO SCH (11:09)
[2021-02-15] MEDS: DIVALPROEX ER 500 MG TAB PO SCH (11:09)
[2021-02-15] MEDS: CHOLECALCIFEROL (VIT D3) 5,000 UNIT TAB PO SCH (11:10)
[2021-02-15] MEDS: PALIPERIDONE ER 3 MG TAB PO SCH (11:10)
[2021-02-15] MEDS ORDERED: FUROSEMIDE 40 MG/4 ML INJ IV NR (12:38)
--- NOTE | 2021-02-15 12:38 | Progress Note ---
Assessment and Plan 55 y/o female admitted with acute respiratory failure secondary to pneumonia, positive for Sars CoV2 02/15/21: Lasix today. Continue current dose of steroids. Prone if possible. 02/14/21: lasix again today. Prone if possible. Continue steroids. Guarded Prognosis 02/13/21: ordered more lasix for today. Monitor strict I/O. Prone if patient will allow. Continue steroids. 02/12/18: continue lasix therapy daily. Prone if possible. Guarded prongosis. continue steroids 02/11/21: IMS has ordered lasix daily for 3 days, will continue to monitor. May need to give an additional dose later tonight. Long discussion at bedside this am about he importance of wearing bipap at night and what that means to her overall health. Will discuss with family too. Overall prognosis is very guarded. Will do our best to not intubate this patient given her morbid obesity as this would increase her mortality rate tremendously. Please continue to document refusal of therapy when appropriate. 02/10/21: Lasix today, 40 IV. Will attempt precedex to see if this will help with mental state and cooperation in care. Will also restart steroids but use solumedrol 40q8 dosing. May need to consider adding back the Haldol PRN as well. Guarded prognosis. Will attempt our best to not intubate this patient as her mortality would be extremely high if intubated given her morbid obesity. 02/02/21: Lasix again today. Patient refuses to prone. Guarded prognosis. 02/01/21: Will give another 40 of lasix today. Will speak with RT about being more aggressive with weaning of oxygen. Prone if possible. 01/31/21: Increased lasix to 40 today. Prone if possible. 01/30/21: Lasix 20mg IV today. Continue Antipsychotic therapy management. Prone as tolerated if patient willing. 01/29/21: Will give lasix again today. Will change Haldol to IM since patient is refusing PO meds. 01/28/21: Will give lasix again today. Continue all other therapies. Prone if patient will and tolerate. STeroids. Guarded prognosis. 01/20/21: Gave Haldol 5 and patient has calmed down and become more appropriate, allowing us to place bipap back on. COntinue steroids and remdesivir therapy. Doubt patient will be able to prone successfully. Will try lasix today again to see if this helps. Very very guarded prognosis. 01/19/21: Continue decadron, suggest increase given patient body habitus to BID. ID consult for Remdesivir therapy and to see if she is a candidate for Actemra. Prone as tolerated during the day and sleep prone at night. Will give lasix again today. Guarded prognosis. 1. Prone 2. Lasix 3. Agree with steroids 4. Follow up COVID testing Guarded prognosis Subjective Date of service: 02/15/21 Principal diagnosis: Covid-19 Interval history: No acute events. Down to 85% with good sats. Objective Vital Signs - 12hr 02/15/21 02/15/21 02/15/21 00:40 03:37 10:39 Temperature 97.5 F L Pulse Rate 83 Pulse Rate [ 111 H Anterior Bilateral Throughout] Pulse Rate [ 110 H Posterior Bilateral Throughout] Respiratory 18 Rate Respiratory 20 Rate [Anterior Bilateral Throughout] Respiratory 21 Rate [Posterior Bilateral Throughout] Blood Pressure 120/65 Blood Pressure [Left] O2 Sat by Pulse 97 97 Oximetry 02/15/21 02/15/21 02/15/21 10:43 11:05 11:08 Temperature 98.8 F Pulse Rate 112 H 112 H Pulse Rate [ Anterior Bilateral Throughout] Pulse Rate [ Posterior Bilateral Throughout] Respiratory 20 Rate Respiratory Rate [Anterior Bilateral Throughout] Respiratory Rate [Posterior Bilateral Throughout] Blood Pressure 130/76 Blood Pressure 130/76 [Left] O2 Sat by Pulse 98 96 Oximetry Constitutional: no acute distress, alert Eyes: non-icteric ENT: oropharynx moist Neck: supple, other (large in circumference) Effort: normal Ascultation: Bilateral: clear, diminished breath sounds Cardiovascular: other (tachy, RR; no mrg) Gastrointestinal: normoactive bowel sounds, soft, non-tender, non-distended Integumentary: normal Extremities: no cyanosis, no edema, pink and warm Neurologic: normal mental status, non-focal exam, pupils equal and round Psychiatric: mood appropriate, affect normal CBC and BMP: 02/11/21 04:50 02/11/21 04:50 ABG, PT/INR, D-dimer: ABG ABG pH 7.309 pH Units (7.350-7.450) L 02/10/21 09:30 ABG pCO2 59.4 mm Hg 02/10/21 09:30 ABG pO2 71.2 mm Hg (80.0-90.0) L 02/10/21 09:30 ABG O2 Saturation 92.4 % (95.0-99.0) L 02/10/21 09:30 PT/INR, D-dimer PT 13.6 Sec. (12.2-14.9) 02/04/21 14:52 INR 1.06 (0.87-1.13) 02/04/21 14:52 D-Dimer 1884.49 ng/mlDDU (0-234) H 01/28/21 08:46 Abnormal lab findings: Abnormal Labs 01/17/21 01/17/21 01/17/21 09:25 16:41 16:41 WBC RBC 5.23 H Hgb MCV 76 L MCH 24 L RDW Plt Count Lymph % (Auto) 9.4 L Maries % (Auto) Lymph # (Auto) 0.8 L Seg Neutrophils % 85.4 H Seg Neuts % (Manual) Lymphocytes % (Manual) Seg Neutrophils # Seg Neutrophils # Man D-Dimer ABG pH ABG pO2 ABG HCO3 ABG O2 Saturation ABG Base Excess ABG Hemoglobin Oxyhemoglobin Sodium 128 L Chloride 90.8 L Carbon Dioxide BUN Creatinine Glucose 372 H POC Glucose Calcium Ferritin AST 98 H Lactate Dehydrogenase C-Reactive Protein Total Protein Albumin 3.2 L Coronavirus (PCR) Positive A 01/17/21 01/17/21 01/17/21 17:46 17:46 17:46 WBC RBC Hgb MCV MCH RDW Plt Count Lymph % (Auto) Maries % (Auto) Lymph # (Auto) Seg Neutrophils % Seg Neuts % (Manual) Lymphocytes % (Manual) Seg Neutrophils # Seg Neutrophils # Man D-Dimer 1058.54 H ABG pH ABG pO2 ABG HCO3 ABG O2 Saturation ABG Base Excess ABG Hemoglobin Oxyhemoglobin Sodium Chloride Carbon Dioxide BUN Creatinine Glucose 369 H POC Glucose Calcium Ferritin 668.4 H AST Lactate Dehydrogenase 519 H C-Reactive Protein 19.20 H Total Protein Albumin Coronavirus (PCR) 01/18/21 01/18/21 01/19/21 09:01 17:18 05:11 WBC 14.2 H RBC Hgb MCV 74 L MCH 23 L RDW Plt Count Lymph % (Auto) Maries % (Auto) Lymph # (Auto) Seg Neutrophils % Seg Neuts % (Manual) 88.0 H Lymphocytes % (Manual) 10.0 L Seg Neutrophils # Seg Neutrophils # Man 12.5 H D-Dimer ABG pH 7.461 H ABG pO2 53.1 L ABG HCO3 ABG O2 Saturation 89.4 L ABG Base Excess ABG Hemoglobin Oxyhemoglobin 88.0 L Sodium 132 L Chloride 93.6 L Carbon Dioxide BUN 18 H Creatinine Glucose 367 H POC Glucose Calcium 7.8 L Ferritin AST Lactate Dehydrogenase C-Reactive Protein Total Protein Albumin Coronavirus (PCR) 01/19/21 01/19/21 01/19/21 05:11 11:06 14:43 WBC RBC Hgb MCV MCH RDW Plt Count Lymph % (Auto) Maries % (Auto) Lymph # (Auto) Seg Neutrophils % Seg Neuts % (Manual) Lymphocytes % (Manual) Seg Neutrophils # Seg Neutrophils # Man D-Dimer ABG pH ABG pO2 ABG HCO3 ABG O2 Saturation ABG Base Excess ABG Hemoglobin Oxyhemoglobin Sodium Chloride Carbon Dioxide BUN 18 H Creatinine Glucose 304 H 379 H POC Glucose 382 H Calcium 8.3 L Ferritin AST 92 H 96 H Lactate Dehydrogenase C-Reactive Protein Total Protein Albumin 3.0 L 3.0 L Coronavirus (PCR) 01/19/21 01/19/21 01/20/21 16:18 22:18 07:31 WBC RBC Hgb MCV MCH RDW Plt Count Lymph % (Auto) [place]ies % (Auto) Lymph # (Auto) Seg Neutrophils % Seg Neuts % (Manual) Lymphocytes % (Manual) Seg Neutrophils # Seg Neutrophils # Man D-Dimer ABG pH ABG pO2 ABG HCO3 ABG O2 Saturation ABG Base Excess ABG Hemoglobin Oxyhemoglobin Sodium Chloride Carbon Dioxide BUN Creatinine Glucose POC Glucose 374 H 341 H 344 H Calcium Ferritin AST Lactate Dehydrogenase C-Reactive Protein Total Protein Albumin Coronavirus (PCR) 01/20/21 01/20/21 01/20/21 07:33 12:14 13:54 WBC RBC Hgb MCV MCH RDW Plt Count Lymph % (Auto) [place] % (Auto) Lymph # (Auto) Seg Neutrophils % Seg Neuts % (Manual) Lymphocytes % (Manual) Seg Neutrophils # Seg Neutrophils # Man D-Dimer ABG pH ABG pO2 ABG HCO3 ABG O2 Saturation ABG Base Excess ABG Hemoglobin Oxyhemoglobin Sodium Chloride Carbon Dioxide BUN 32 H 31 H Creatinine Glucose 343 H 396 H POC Glucose 365 H Calcium Ferritin AST 57 H 54 H Lactate Dehydrogenase C-Reactive Protein Total Protein 8.3 H Albumin 2.7 L 3.1 L Coronavirus (PCR) 01/20/21 01/20/21 01/21/21 18:28 21:25 04:45 WBC RBC Hgb MCV MCH RDW Plt Count Lymph % (Auto) [place] % (Auto) Lymph # (Auto) Seg Neutrophils % Seg Neuts % (Manual) Lymphocytes % (Manual) Seg Neutrophils # Seg Neutrophils # Man D-Dimer ABG pH ABG pO2 ABG HCO3 ABG O2 Saturation ABG Base Excess ABG Hemoglobin Oxyhemoglobin Sodium Chloride Carbon Dioxide 31 H BUN 41 H Creatinine Glucose 377 H POC Glucose 403 H 340 H Calcium Ferritin AST Lactate Dehydrogenase C-Reactive Protein Total Protein 8.3 H Albumin 3.0 L Coronavirus (PCR) 01/21/21 01/21/21 01/21/21 04:45 04:45 04:45 WBC RBC Hgb MCV MCH RDW Plt Count Lymph % (Auto) [place]ies % (Auto) Lymph # (Auto) Seg Neutrophils % Seg Neuts % (Manual) Lymphocytes % (Manual) Seg Neutrophils # Seg Neutrophils # Man D-Dimer > 85296 H ABG pH ABG pO2 ABG HCO3 ABG O2 Saturation ABG Base Excess ABG Hemoglobin Oxyhemoglobin Sodium Chloride Carbon Dioxide BUN Creatinine Glucose POC Glucose Calcium Ferritin 1688.0 H AST Lactate Dehydrogenase 649 H C-Reactive Protein 17.00 H Total Protein Albumin Coronavirus (PCR) 01/21/21 01/21/21 01/21/21 09:45 11:29 12:09 WBC RBC Hgb MCV MCH RDW Plt Count Lymph % (Auto) [place] % (Auto) Lymph # (Auto) Seg Neutrophils % Seg Neuts % (Manual) Lymphocytes % (Manual) Seg Neutrophils # Seg Neutrophils # Man D-Dimer ABG pH ABG pO2 ABG HCO3 ABG O2 Saturation ABG Base Excess ABG Hemoglobin Oxyhemoglobin Sodium 151 H Chloride Carbon Dioxide BUN 40 H Creatinine Glucose 412 H POC Glucose 401 H 372 H Calcium Ferritin AST Lactate Dehydrogenase C-Reactive Protein Total Protein Albumin 3.4 L Coronavirus (PCR) 01/21/21 01/21/21 01/22/21 18:26 21:09 02:00 WBC RBC Hgb MCV MCH RDW Plt Count Lymph % (Auto) [place] % (Auto) Lymph # (Auto) Seg Neutrophils % Seg Neuts % (Manual) Lymphocytes % (Manual) Seg Neutrophils # Seg Neutrophils # Man D-Dimer ABG pH ABG pO2 ABG HCO3 ABG O2 Saturation ABG Base Excess ABG Hemoglobin Oxyhemoglobin Sodium Chloride Carbon Dioxide BUN Creatinine Glucose POC Glucose 376 H 322 H 231 H Calcium Ferritin AST Lactate Dehydrogenase C-Reactive Protein Total Protein Albumin Coronavirus (PCR) 01/22/21 01/22/21 01/22/21 05:24 08:25 08:25 WBC RBC 5.44 H Hgb MCV 75 L MCH 23 L RDW 15.5 H Plt Count Lymph % (Auto) [place]ies % (Auto) Lymph # (Auto) Seg Neutrophils % Seg Neuts % (Manual) Lymphocytes % (Manual) Seg Neutrophils # Seg Neutrophils # Man D-Dimer ABG pH ABG pO2 ABG HCO3 ABG O2 Saturation ABG Base Excess ABG Hemoglobin Oxyhemoglobin Sodium 155 H Chloride 112.4 H Carbon Dioxide BUN 33 H Creatinine Glucose 274 H POC Glucose 275 H Calcium Ferritin AST Lactate Dehydrogenase C-Reactive Protein Total Protein Albumin Coronavirus (PCR) 01/22/21 01/22/21 01/22/21 11:53 16:03 21:41 WBC RBC Hgb MCV MCH RDW Plt Count Lymph % (Auto) [place] % (Auto) Lymph # (Auto) Seg Neutrophils % Seg Neuts % (Manual) Lymphocytes % (Manual) Seg Neutrophils # Seg Neutrophils # Man D-Dimer ABG pH ABG pO2 ABG HCO3 ABG O2 Saturation ABG Base Excess ABG Hemoglobin Oxyhemoglobin Sodium Chloride Carbon Dioxide BUN Creatinine Glucose POC Glucose 265 H 293 H 279 H Calcium Ferritin AST Lactate Dehydrogenase C-Reactive Protein Total Protein Albumin Coronavirus (PCR) 01/23/21 01/23/21 01/23/21 02:03 05:46 05:59 WBC RBC Hgb MCV MCH RDW Plt Count Lymph % (Auto) [place] % (Auto) Lymph # (Auto) Seg Neutrophils % Seg Neuts % (Manual) Lymphocytes % (Manual) Seg Neutrophils # Seg Neutrophils # Man D-Dimer ABG pH ABG pO2 ABG HCO3 ABG O2 Saturation ABG Base Excess ABG Hemoglobin Oxyhemoglobin Sodium Chloride Carbon Dioxide BUN Creatinine Glucose POC Glucose 268 H 303 H Calcium Ferritin 1116.0 H AST Lactate Dehydrogenase C-Reactive Protein Total Protein Albumin Coronavirus (PCR) 01/23/21 01/23/21 01/23/21 05:59 07:42 09:11 WBC RBC Hgb MCV MCH RDW Plt Count Lymph % (Auto) [place] % (Auto) Lymph # (Auto) Seg Neutrophils % Seg Neuts % (Manual) Lymphocytes % (Manual) Seg Neutrophils # Seg Neutrophils # Man D-Dimer ABG pH ABG pO2 ABG HCO3 ABG O2 Saturation ABG Base Excess ABG Hemoglobin Oxyhemoglobin Sodium Chloride Carbon Dioxide BUN Creatinine Glucose POC Glucose 291 H 285 H Calcium Ferritin AST Lactate Dehydrogenase 680 H C-Reactive Protein 5.80 H Total Protein Albumin Coronavirus (PCR) 01/23/21 01/23/21 01/23/21 14:06 17:05 17:59 WBC RBC Hgb MCV MCH RDW Plt Count Lymph % (Auto) [place] % (Auto) Lymph # (Auto) Seg Neutrophils % Seg Neuts % (Manual) Lymphocytes % (Manual) Seg Neutrophils # Seg Neutrophils # Man D-Dimer ABG pH ABG pO2 ABG HCO3 ABG O2 Saturation ABG Base Excess ABG Hemoglobin Oxyhemoglobin Sodium Chloride Carbon Dioxide BUN Creatinine Glucose POC Glucose 228 H 300 H 278 H Calcium Ferritin AST Lactate Dehydrogenase C-Reactive Protein Total Protein Albumin Coronavirus (PCR) 01/23/21 01/24/21 01/24/21 21:43 02:14 05:15 WBC RBC Hgb MCV MCH RDW Plt Count Lymph % (Auto) [place] % (Auto) Lymph # (Auto) Seg Neutrophils % Seg Neuts % (Manual) Lymphocytes % (Manual) Seg Neutrophils # Seg Neutrophils # Man D-Dimer ABG pH ABG pO2 ABG HCO3 ABG O2 Saturation ABG Base Excess ABG Hemoglobin Oxyhemoglobin Sodium Chloride Carbon Dioxide BUN Creatinine Glucose POC Glucose 223 H 427 H 392 H Calcium Ferritin AST Lactate Dehydrogenase C-Reactive Protein Total Protein Albumin Coronavirus (PCR) 01/24/21 01/24/21 01/24/21 07:03 07:03 09:10 WBC RBC 5.49 H Hgb MCV 75 L MCH 23 L RDW Plt Count Lymph % (Auto) 7.0 L [place] % (Auto) Lymph # (Auto) 0.5 L Seg Neutrophils % 86.1 H Seg Neuts % (Manual) Lymphocytes % (Manual) Seg Neutrophils # Seg Neutrophils # Man D-Dimer ABG pH ABG pO2 ABG HCO3 ABG O2 Saturation ABG Base Excess ABG Hemoglobin Oxyhemoglobin Sodium 149 H Chloride 111.4 H Carbon Dioxide BUN 24 H Creatinine Glucose 339 H POC Glucose 284 H Calcium Ferritin AST Lactate Dehydrogenase C-Reactive Protein Total Protein Albumin Coronavirus (PCR) 01/24/21 01/24/21 01/24/21 13:47 18:30 21:58 WBC RBC Hgb MCV MCH RDW Plt Count Lymph % (Auto) [place]ies % (Auto) Lymph # (Auto) Seg Neutrophils % Seg Neuts % (Manual) Lymphocytes % (Manual) Seg Neutrophils # Seg Neutrophils # Man D-Dimer ABG pH ABG pO2 ABG HCO3 ABG O2 Saturation ABG Base Excess ABG Hemoglobin Oxyhemoglobin Sodium Chloride Carbon Dioxide BUN Creatinine Glucose POC Glucose 317 H 180 H 262 H Calcium Ferritin AST Lactate Dehydrogenase C-Reactive Protein Total Protein Albumin Coronavirus (PCR) 01/25/21 01/25/21 01/25/21 01:22 05:35 08:36 WBC RBC Hgb MCV MCH RDW Plt Count Lymph % (Auto) [place] % (Auto) Lymph # (Auto) Seg Neutrophils % Seg Neuts % (Manual) Lymphocytes % (Manual) Seg Neutrophils # Seg Neutrophils # Man D-Dimer ABG pH ABG pO2 ABG HCO3 ABG O2 Saturation ABG Base Excess ABG Hemoglobin Oxyhemoglobin Sodium Chloride Carbon Dioxide BUN Creatinine Glucose POC Glucose 280 H 243 H 216 H Calcium Ferritin AST Lactate Dehydrogenase C-Reactive Protein Total Protein Albumin Coronavirus (PCR) 01/25/21 01/25/21 01/25/21 15:14 15:14 15:14 WBC RBC Hgb MCV MCH RDW Plt Count Lymph % (Auto) [place]ies % (Auto) Lymph # (Auto) Seg Neutrophils % Seg Neuts % (Manual) Lymphocytes % (Manual) Seg Neutrophils # Seg Neutrophils # Man D-Dimer 6312.54 H ABG pH ABG pO2 ABG HCO3 ABG O2 Saturation ABG Base Excess ABG Hemoglobin Oxyhemoglobin Sodium 146 H Chloride 108.1 H Carbon Dioxide BUN 19 H Creatinine Glucose 287 H POC Glucose Calcium 8.3 L Ferritin 869.5 H AST Lactate Dehydrogenase 685 H C-Reactive Protein Total Protein Albumin Coronavirus (PCR) 01/25/21 01/25/21 01/26/21 16:06 21:18 01:47 WBC RBC Hgb MCV MCH RDW Plt Count Lymph % (Auto) [place]ies % (Auto) Lymph # (Auto) Seg Neutrophils % Seg Neuts % (Manual) Lymphocytes % (Manual) Seg Neutrophils # Seg Neutrophils # Man D-Dimer ABG pH ABG pO2 ABG HCO3 ABG O2 Saturation ABG Base Excess ABG Hemoglobin Oxyhemoglobin Sodium Chloride Carbon Dioxide BUN Creatinine Glucose POC Glucose 267 H 197 H 255 H Calcium Ferritin AST Lactate Dehydrogenase C-Reactive Protein Total Protein Albumin Coronavirus (PCR) 01/26/21 01/26/21 01/26/21 05:23 05:23 05:23 WBC RBC Hgb MCV MCH RDW Plt Count Lymph % (Auto) [place] % (Auto) Lymph # (Auto) Seg Neutrophils % Seg Neuts % (Manual) Lymphocytes % (Manual) Seg Neutrophils # Seg Neutrophils # Man D-Dimer 5809.58 H ABG pH ABG pO2 ABG HCO3 ABG O2 Saturation ABG Base Excess ABG Hemoglobin Oxyhemoglobin Sodium 149 H Chloride 109.3 H Carbon Dioxide BUN 24 H Creatinine Glucose 362 H POC Glucose Calcium Ferritin 877.1 H AST Lactate Dehydrogenase 655 H C-Reactive Protein Total Protein Albumin Coronavirus (PCR) 01/26/21 01/26/21 01/26/21 05:23 06:06 09:28 WBC RBC 5.49 H Hgb MCV 77 L MCH 23 L RDW Plt Count Lymph % (Auto) [place]ies % (Auto) Lymph # (Auto) 0.8 L Seg Neutrophils % 78.9 H Seg Neuts % (Manual) Lymphocytes % (Manual) Seg Neutrophils # Seg Neutrophils # Man D-Dimer ABG pH ABG pO2 ABG HCO3 ABG O2 Saturation ABG Base Excess ABG Hemoglobin Oxyhemoglobin Sodium Chloride Carbon Dioxide BUN Creatinine Glucose POC Glucose 387 H 308 H Calcium Ferritin AST Lactate Dehydrogenase C-Reactive Protein Total Protein Albumin Coronavirus (PCR) 01/26/21 01/26/21 01/27/21 15:56 21:28 02:51 WBC RBC Hgb MCV MCH RDW Plt Count Lymph % (Auto) [place]ies % (Auto) Lymph # (Auto) Seg Neutrophils % Seg Neuts % (Manual) Lymphocytes % (Manual) Seg Neutrophils # Seg Neutrophils # Man D-Dimer ABG pH ABG pO2 ABG HCO3 ABG O2 Saturation ABG Base Excess ABG Hemoglobin Oxyhemoglobin Sodium Chloride Carbon Dioxide BUN Creatinine Glucose POC Glucose 172 H 316 H 267 H Calcium Ferritin AST Lactate Dehydrogenase C-Reactive Protein Total Protein Albumin Coronavirus (PCR) 01/27/21 01/27/21 01/27/21 04:22 04:22 04:22 WBC RBC Hgb MCV MCH RDW Plt Count Lymph % (Auto) [place]ies % (Auto) Lymph # (Auto) Seg Neutrophils % Seg Neuts % (Manual) Lymphocytes % (Manual) Seg Neutrophils # Seg Neutrophils # Man D-Dimer 4046.06 H ABG pH ABG pO2 ABG HCO3 ABG O2 Saturation ABG Base Excess ABG Hemoglobin Oxyhemoglobin Sodium Chloride 107.7 H Carbon Dioxide BUN 30 H Creatinine Glucose 281 H POC Glucose Calcium Ferritin 812.2 H AST Lactate Dehydrogenase 570 H C-Reactive Protein Total Protein Albumin Coronavirus (PCR) 01/27/21 01/27/21 01/27/21 04:22 05:55 12:00 WBC RBC 5.15 H Hgb MCV 76 L MCH 23 L RDW 15.5 H Plt Count Lymph % (Auto) 12.7 L [place]ies % (Auto) Lymph # (Auto) 0.9 L Seg Neutrophils % 81.3 H Seg Neuts % (Manual) Lymphocytes % (Manual) Seg Neutrophils # Seg Neutrophils # Man D-Dimer ABG pH ABG pO2 ABG HCO3 ABG O2 Saturation ABG Base Excess ABG Hemoglobin Oxyhemoglobin Sodium Chloride Carbon Dioxide BUN Creatinine Glucose POC Glucose 275 H 121 H Calcium Ferritin AST Lactate Dehydrogenase C-Reactive Protein Total Protein Albumin Coronavirus (PCR) 01/27/21 01/27/21 01/28/21 17:32 21:23 02:08 WBC RBC Hgb MCV MCH RDW Plt Count Lymph % (Auto) [place]ies % (Auto) Lymph # (Auto) Seg Neutrophils % Seg Neuts % (Manual) Lymphocytes % (Manual) Seg Neutrophils # Seg Neutrophils # Man D-Dimer ABG pH ABG pO2 ABG HCO3 ABG O2 Saturation ABG Base Excess ABG Hemoglobin Oxyhemoglobin Sodium Chloride Carbon Dioxide BUN Creatinine Glucose POC Glucose 195 H 179 H 210 H Calcium Ferritin AST Lactate Dehydrogenase C-Reactive Protein Total Protein Albumin Coronavirus (PCR) 01/28/21 01/28/21 01/28/21 05:09 08:44 08:46 WBC RBC Hgb MCV MCH RDW Plt Count Lymph % (Auto) [place] % (Auto) Lymph # (Auto) Seg Neutrophils % Seg Neuts % (Manual) Lymphocytes % (Manual) Seg Neutrophils # Seg Neutrophils # Man D-Dimer 1884.49 H ABG pH ABG pO2 ABG HCO3 ABG O2 Saturation ABG Base Excess ABG Hemoglobin Oxyhemoglobin Sodium Chloride Carbon Dioxide BUN Creatinine Glucose POC Glucose 202 H 191 H Calcium Ferritin AST Lactate Dehydrogenase C-Reactive Protein Total Protein Albumin Coronavirus (PCR) 01/28/21 01/28/21 01/28/21 08:46 08:46 12:18 WBC RBC Hgb MCV MCH RDW Plt Count Lymph % (Auto) [place] % (Auto) Lymph # (Auto) Seg Neutrophils % Seg Neuts % (Manual) Lymphocytes % (Manual) Seg Neutrophils # Seg Neutrophils # Man D-Dimer ABG pH ABG pO2 ABG HCO3 ABG O2 Saturation ABG Base Excess ABG Hemoglobin Oxyhemoglobin Sodium Chloride Carbon Dioxide BUN Creatinine Glucose POC Glucose 221 H Calcium Ferritin 797.7 H AST Lactate Dehydrogenase 556 H C-Reactive Protein Total Protein Albumin Coronavirus (PCR) 01/28/21 01/28/21 01/29/21 18:21 21:45 01:48 WBC RBC Hgb MCV MCH RDW Plt Count Lymph % (Auto) [place] % (Auto) Lymph # (Auto) Seg Neutrophils % Seg Neuts % (Manual) Lymphocytes % (Manual) Seg Neutrophils # Seg Neutrophils # Man D-Dimer ABG pH ABG pO2 ABG HCO3 ABG O2 Saturation ABG Base Excess ABG Hemoglobin Oxyhemoglobin Sodium Chloride Carbon Dioxide BUN Creatinine Glucose POC Glucose 214 H 148 H 248 H Calcium Ferritin AST Lactate Dehydrogenase C-Reactive Protein Total Protein Albumin Coronavirus (PCR) 01/29/21 01/29/21 01/29/21 05:17 10:17 11:39 WBC RBC Hgb MCV MCH RDW Plt Count Lymph % (Auto) [place] % (Auto) Lymph # (Auto) Seg Neutrophils % Seg Neuts % (Manual) Lymphocytes % (Manual) Seg Neutrophils # Seg Neutrophils # Man D-Dimer ABG pH ABG pO2 ABG HCO3 ABG O2 Saturation ABG Base Excess ABG Hemoglobin Oxyhemoglobin Sodium Chloride Carbon Dioxide BUN Creatinine Glucose POC Glucose 256 H 193 H 177 H Calcium Ferritin AST Lactate Dehydrogenase C-Reactive Protein Total Protein Albumin Coronavirus (PCR) 01/29/21 01/29/21 01/30/21 18:06 20:24 06:07 WBC RBC Hgb MCV MCH RDW Plt Count Lymph % (Auto) [place] % (Auto) Lymph # (Auto) Seg Neutrophils % Seg Neuts % (Manual) Lymphocytes % (Manual) Seg Neutrophils # Seg Neutrophils # Man D-Dimer ABG pH ABG pO2 ABG HCO3 ABG O2 Saturation ABG Base Excess ABG Hemoglobin Oxyhemoglobin Sodium Chloride Carbon Dioxide BUN Creatinine Glucose POC Glucose 107 H 114 H 114 H Calcium Ferritin AST Lactate Dehydrogenase C-Reactive Protein Total Protein Albumin Coronavirus (PCR) 01/30/21 01/30/21 01/30/21 12:08 16:11 21:19 WBC RBC Hgb MCV MCH RDW Plt Count Lymph % (Auto) [place] % (Auto) Lymph # (Auto) Seg Neutrophils % Seg Neuts % (Manual) Lymphocytes % (Manual) Seg Neutrophils # Seg Neutrophils # Man D-Dimer ABG pH ABG pO2 ABG HCO3 ABG O2 Saturation ABG Base Excess ABG Hemoglobin Oxyhemoglobin Sodium Chloride Carbon Dioxide BUN Creatinine Glucose POC Glucose 178 H 142 H 244 H Calcium Ferritin AST Lactate Dehydrogenase C-Reactive Protein Total Protein Albumin Coronavirus (PCR) 01/31/21 01/31/21 01/31/21 05:30 06:42 07:50 WBC RBC Hgb MCV MCH RDW Plt Count Lymph % (Auto) [place] % (Auto) Lymph # (Auto) Seg Neutrophils % Seg Neuts % (Manual) Lymphocytes % (Manual) Seg Neutrophils # Seg Neutrophils # Man D-Dimer ABG pH ABG pO2 ABG HCO3 ABG O2 Saturation ABG Base Excess ABG Hemoglobin Oxyhemoglobin Sodium Chloride Carbon Dioxide BUN 20 H Creatinine Glucose 160 H POC Glucose 164 H 152 H Calcium 8.0 L Ferritin AST Lactate Dehydrogenase C-Reactive Protein Total Protein Albumin Coronavirus (PCR) 01/31/21 01/31/21 01/31/21 11:40 16:37 21:01 WBC RBC Hgb MCV MCH RDW Plt Count Lymph % (Auto) [place] % (Auto) Lymph # (Auto) Seg Neutrophils % Seg Neuts % (Manual) Lymphocytes % (Manual) Seg Neutrophils # Seg Neutrophils # Man D-Dimer ABG pH ABG pO2 ABG HCO3 ABG O2 Saturation ABG Base Excess ABG Hemoglobin Oxyhemoglobin Sodium Chloride Carbon Dioxide BUN Creatinine Glucose POC Glucose 129 H 141 H 125 H Calcium Ferritin AST Lactate Dehydrogenase C-Reactive Protein Total Protein Albumin Coronavirus (PCR) 02/01/21 02/01/21 02/01/21 06:26 11:15 16:11 WBC RBC Hgb MCV MCH RDW Plt Count Lymph % (Auto) [place] % (Auto) Lymph # (Auto) Seg Neutrophils % Seg Neuts % (Manual) Lymphocytes % (Manual) Seg Neutrophils # Seg Neutrophils # Man D-Dimer ABG pH ABG pO2 ABG HCO3 ABG O2 Saturation ABG Base Excess ABG Hemoglobin Oxyhemoglobin Sodium Chloride Carbon Dioxide BUN Creatinine Glucose POC Glucose 136 H 260 H 240 H Calcium Ferritin AST Lactate Dehydrogenase C-Reactive Protein Total Protein Albumin Coronavirus (PCR) 02/01/21 02/02/21 02/02/21 22:32 07:15 07:56 WBC 3.1 L RBC Hgb MCV 75 L MCH 23 L RDW Plt Count Lymph % (Auto) 44.9 H [place] % (Auto) 9.2 H Lymph # (Auto) Seg Neutrophils % Seg Neuts % (Manual) Lymphocytes % (Manual) Seg Neutrophils # 1.3 L Seg Neutrophils # Man D-Dimer ABG pH ABG pO2 ABG HCO3 ABG O2 Saturation ABG Base Excess ABG Hemoglobin Oxyhemoglobin Sodium Chloride Carbon Dioxide BUN Creatinine Glucose POC Glucose 298 H 164 H Calcium Ferritin AST Lactate Dehydrogenase C-Reactive Protein Total Protein Albumin Coronavirus (PCR) 02/02/21 02/02/21 02/02/21 07:56 11:35 16:07 WBC RBC Hgb MCV MCH RDW Plt Count Lymph % (Auto) [place] % (Auto) Lymph # (Auto) Seg Neutrophils % Seg Neuts % (Manual) Lymphocytes % (Manual) Seg Neutrophils # Seg Neutrophils # Man D-Dimer ABG pH ABG pO2 ABG HCO3 ABG O2 Saturation ABG Base Excess ABG Hemoglobin Oxyhemoglobin Sodium Chloride Carbon Dioxide 31 H BUN Creatinine 0.4 L Glucose 159 H POC Glucose 297 H 252 H Calcium 8.2 L Ferritin AST Lactate Dehydrogenase C-Reactive Protein Total Protein Albumin Coronavirus (PCR) 02/02/21 02/03/21 02/03/21 22:33 17:04 22:17 WBC RBC Hgb MCV MCH RDW Plt Count Lymph % (Auto) [place] % (Auto) Lymph # (Auto) Seg Neutrophils % Seg Neuts % (Manual) Lymphocytes % (Manual) Seg Neutrophils # Seg Neutrophils # Man D-Dimer ABG pH ABG pO2 ABG HCO3 ABG O2 Saturation ABG Base Excess ABG Hemoglobin Oxyhemoglobin Sodium Chloride Carbon Dioxide BUN Creatinine Glucose POC Glucose 257 H 247 H 278 H Calcium Ferritin AST Lactate Dehydrogenase C-Reactive Protein Total Protein Albumin Coronavirus (PCR) 02/04/21 02/04/21 02/04/21 05:41 07:55 11:56 WBC RBC Hgb MCV MCH RDW Plt Count Lymph % (Auto) [place] % (Auto) Lymph # (Auto) Seg Neutrophils % Seg Neuts % (Manual) Lymphocytes % (Manual) Seg Neutrophils # Seg Neutrophils # Man D-Dimer ABG pH ABG pO2 ABG HCO3 ABG O2 Saturation ABG Base Excess ABG Hemoglobin Oxyhemoglobin Sodium Chloride Carbon Dioxide 31 H BUN 19 H Creatinine 0.5 L Glucose 184 H POC Glucose 182 H 227 H Calcium Ferritin AST Lactate Dehydrogenase C-Reactive Protein Total Protein Albumin Coronavirus (PCR) 02/04/21 02/04/21 02/04/21 12:45 14:52 16:45 WBC 4.0 L RBC Hgb MCV 77 L MCH 24 L RDW 15.5 H Plt Count Lymph % (Auto) [place] % (Auto) Lymph # (Auto) Seg Neutrophils % Seg Neuts % (Manual) Lymphocytes % (Manual) Seg Neutrophils # Seg Neutrophils # Man D-Dimer ABG pH ABG pO2 65.6 L ABG HCO3 30.8 H ABG O2 Saturation 94.0 L ABG Base Excess 5.5 H ABG Hemoglobin 10.3 L Oxyhemoglobin 92.3 L Sodium Chloride Carbon Dioxide BUN Creatinine Glucose POC Glucose 194 H Calcium Ferritin AST Lactate Dehydrogenase C-Reactive Protein Total Protein Albumin Coronavirus (PCR) 02/04/21 02/05/21 02/05/21 22:00 06:55 07:49 WBC RBC Hgb 10.0 L MCV MCH RDW Plt Count Lymph % (Auto) [place] % (Auto) Lymph # (Auto) Seg Neutrophils % Seg Neuts % (Manual) Lymphocytes % (Manual) Seg Neutrophils # Seg Neutrophils # Man D-Dimer ABG pH ABG pO2 ABG HCO3 ABG O2 Saturation ABG Base Excess ABG Hemoglobin Oxyhemoglobin Sodium Chloride Carbon Dioxide BUN Creatinine Glucose POC Glucose 281 H 204 H Calcium Ferritin AST Lactate Dehydrogenase C-Reactive Protein Total Protein Albumin Coronavirus (PCR) 02/05/21 02/05/21 02/05/21 11:23 16:13 16:22 WBC RBC Hgb 10.0 L MCV MCH RDW Plt Count Lymph % (Auto) [place] % (Auto) Lymph # (Auto) Seg Neutrophils % Seg Neuts % (Manual) Lymphocytes % (Manual) Seg Neutrophils # Seg Neutrophils # Man D-Dimer ABG pH ABG pO2 ABG HCO3 ABG O2 Saturation ABG Base Excess ABG Hemoglobin Oxyhemoglobin Sodium Chloride Carbon Dioxide BUN Creatinine Glucose POC Glucose 264 H 202 H Calcium Ferritin AST Lactate Dehydrogenase C-Reactive Protein Total Protein Albumin Coronavirus (PCR) 02/05/21 02/06/21 02/06/21 21:14 04:43 04:43 WBC 4.0 L RBC Hgb 10.0 L MCV 76 L MCH 23 L RDW 15.7 H Plt Count Lymph % (Auto) [place] % (Auto) Lymph # (Auto) Seg Neutrophils % Seg Neuts % (Manual) Lymphocytes % (Manual) Seg Neutrophils # Seg Neutrophils # Man D-Dimer ABG pH ABG pO2 ABG HCO3 ABG O2 Saturation ABG Base Excess ABG Hemoglobin Oxyhemoglobin Sodium Chloride Carbon Dioxide 32 H BUN Creatinine 0.4 L Glucose 163 H POC Glucose 180 H Calcium 8.3 L Ferritin AST Lactate Dehydrogenase C-Reactive Protein Total Protein Albumin Coronavirus (PCR) 02/06/21 02/06/21 02/06/21 08:01 11:44 16:11 WBC RBC Hgb MCV MCH RDW Plt Count Lymph % (Auto) [place] % (Auto) Lymph # (Auto) Seg Neutrophils % Seg Neuts % (Manual) Lymphocytes % (Manual) Seg Neutrophils # Seg Neutrophils # Man D-Dimer ABG pH ABG pO2 ABG HCO3 ABG O2 Saturation ABG Base Excess ABG Hemoglobin Oxyhemoglobin Sodium Chloride Carbon Dioxide BUN Creatinine Glucose POC Glucose 155 H 215 H 247 H Calcium Ferritin AST Lactate Dehydrogenase C-Reactive Protein Total Protein Albumin Coronavirus (PCR) 02/06/21 02/07/21 02/07/21 23:40 08:01 11:54 WBC RBC Hgb MCV MCH RDW Plt Count Lymph % (Auto) [place] % (Auto) Lymph # (Auto) Seg Neutrophils % Seg Neuts % (Manual) Lymphocytes % (Manual) Seg Neutrophils # Seg Neutrophils # Man D-Dimer ABG pH ABG pO2 ABG HCO3 ABG O2 Saturation ABG Base Excess ABG Hemoglobin Oxyhemoglobin Sodium Chloride Carbon Dioxide BUN Creatinine Glucose POC Glucose 267 H 233 H 227 H Calcium Ferritin AST Lactate Dehydrogenase C-Reactive Protein Total Protein Albumin Coronavirus (PCR) 02/07/21 02/07/21 02/07/21 15:48 20:58 20:58 WBC RBC Hgb MCV MCH RDW Plt Count Lymph % (Auto) [place] % (Auto) Lymph # (Auto) Seg Neutrophils % Seg Neuts % (Manual) Lymphocytes % (Manual) Seg Neutrophils # Seg Neutrophils # Man D-Dimer ABG pH ABG pO2 ABG HCO3 ABG O2 Saturation ABG Base Excess ABG Hemoglobin Oxyhemoglobin Sodium Chloride Carbon Dioxide 32 H BUN Creatinine 0.5 L 0.5 L Glucose 236 H POC Glucose 257 H Calcium 8.3 L Ferritin AST Lactate Dehydrogenase C-Reactive Protein Total Protein Albumin Coronavirus (PCR) 02/07/21 02/08/21 02/08/21 22:10 04:46 04:46 WBC 4.2 L RBC Hgb 9.7 L MCV 78 L MCH 24 L RDW 17.9 H Plt Count 110 L Lymph % (Auto) [place] % (Auto) Lymph # (Auto) Seg Neutrophils % Seg Neuts % (Manual) Lymphocytes % (Manual) Seg Neutrophils # Seg Neutrophils # Man D-Dimer ABG pH ABG pO2 ABG HCO3 ABG O2 Saturation ABG Base Excess ABG Hemoglobin Oxyhemoglobin Sodium Chloride Carbon Dioxide BUN Creatinine 0.4 L Glucose 220 H POC Glucose 241 H Calcium 8.0 L Ferritin AST Lactate Dehydrogenase C-Reactive Protein Total Protein Albumin Coronavirus (PCR) 02/08/21 02/08/21 02/08/21 08:05 11:36 15:44 WBC RBC Hgb MCV MCH RDW Plt Count Lymph % (Auto) [place] % (Auto) Lymph # (Auto) Seg Neutrophils % Seg Neuts % (Manual) Lymphocytes % (Manual) Seg Neutrophils # Seg Neutrophils # Man D-Dimer ABG pH ABG pO2 ABG HCO3 ABG O2 Saturation ABG Base Excess ABG Hemoglobin Oxyhemoglobin Sodium Chloride Carbon Dioxide BUN Creatinine Glucose POC Glucose 208 H 200 H 149 H Calcium Ferritin AST Lactate Dehydrogenase C-Reactive Protein Total Protein Albumin Coronavirus (PCR) 02/08/21 02/09/21 02/09/21 21:35 04:24 07:39 WBC RBC Hgb MCV MCH RDW Plt Count Lymph % (Auto) [place] % (Auto) Lymph # (Auto) Seg Neutrophils % Seg Neuts % (Manual) Lymphocytes % (Manual) Seg Neutrophils # Seg Neutrophils # Man D-Dimer ABG pH ABG pO2 ABG HCO3 ABG O2 Saturation ABG Base Excess ABG Hemoglobin Oxyhemoglobin Sodium Chloride Carbon Dioxide BUN Creatinine 0.4 L Glucose 205 H POC Glucose 249 H 205 H Calcium 8.1 L Ferritin AST Lactate Dehydrogenase C-Reactive Protein Total Protein Albumin Coronavirus (PCR) 02/09/21 02/09/21 02/09/21 11:53 16:52 21:26 WBC RBC Hgb MCV MCH RDW Plt Count Lymph % (Auto) [place] % (Auto) Lymph # (Auto) Seg Neutrophils % Seg Neuts % (Manual) Lymphocytes % (Manual) Seg Neutrophils # Seg Neutrophils # Man D-Dimer ABG pH ABG pO2 ABG HCO3 ABG O2 Saturation ABG Base Excess ABG Hemoglobin Oxyhemoglobin Sodium Chloride Carbon Dioxide BUN Creatinine Glucose POC Glucose 303 H 164 H 257 H Calcium Ferritin AST Lactate Dehydrogenase C-Reactive Protein Total Protein Albumin Coronavirus (PCR) 02/10/21 02/10/21 02/10/21 09:30 09:38 11:45 WBC RBC Hgb MCV MCH RDW Plt Count Lymph % (Auto) [place] % (Auto) Lymph # (Auto) Seg Neutrophils % Seg Neuts % (Manual) Lymphocytes % (Manual) Seg Neutrophils # Seg Neutrophils # Man D-Dimer ABG pH 7.309 L ABG pO2 71.2 L ABG HCO3 29.1 H ABG O2 Saturation 92.4 L ABG Base Excess ABG Hemoglobin 11.2 L Oxyhemoglobin 90.2 L Sodium Chloride Carbon Dioxide BUN Creatinine Glucose POC Glucose 240 H 257 H Calcium Ferritin AST Lactate Dehydrogenase C-Reactive Protein Total Protein Albumin Coronavirus (PCR) 02/10/21 02/10/21 02/11/21 17:12 21:26 04:50 WBC RBC Hgb MCV 78 L MCH 24 L RDW 20.3 H Plt Count 133 L Lymph % (Auto) [place] % (Auto) Lymph # (Auto) Seg Neutrophils % Seg Neuts % (Manual) Lymphocytes % (Manual) Seg Neutrophils # Seg Neutrophils # Man D-Dimer ABG pH ABG pO2 ABG HCO3 ABG O2 Saturation ABG Base Excess ABG Hemoglobin Oxyhemoglobin Sodium Chloride Carbon Dioxide BUN Creatinine Glucose POC Glucose 178 H 362 H Calcium Ferritin AST Lactate Dehydrogenase C-Reactive Protein Total Protein Albumin Coronavirus (PCR) 02/11/21 02/11/21 02/11/21 08:02 11:52 17:14 WBC RBC Hgb MCV MCH RDW Plt Count Lymph % (Auto) [place] % (Auto) Lymph # (Auto) Seg Neutrophils % Seg Neuts % (Manual) Lymphocytes % (Manual) Seg Neutrophils # Seg Neutrophils # Man D-Dimer ABG pH ABG pO2 ABG HCO3 ABG O2 Saturation ABG Base Excess ABG Hemoglobin Oxyhemoglobin Sodium Chloride Carbon Dioxide BUN Creatinine Glucose POC Glucose 263 H 433 H 212 H Calcium Ferritin AST Lactate Dehydrogenase C-Reactive Protein Total Protein Albumin Coronavirus (PCR) 02/11/21 02/12/21 02/12/21 21:39 08:24 11:21 WBC RBC Hgb MCV MCH RDW Plt Count Lymph % (Auto) [place] % (Auto) Lymph # (Auto) Seg Neutrophils % Seg Neuts % (Manual) Lymphocytes % (Manual) Seg Neutrophils # Seg Neutrophils # Man D-Dimer ABG pH ABG pO2 ABG HCO3 ABG O2 Saturation ABG Base Excess ABG Hemoglobin Oxyhemoglobin Sodium Chloride Carbon Dioxide BUN Creatinine Glucose POC Glucose 248 H 295 H 403 H Calcium Ferritin AST Lactate Dehydrogenase C-Reactive Protein Total Protein Albumin Coronavirus (PCR) 02/12/21 02/13/21 02/13/21 16:29 07:32 12:19 WBC RBC Hgb MCV MCH RDW Plt Count Lymph % (Auto) [place] % (Auto) Lymph # (Auto) Seg Neutrophils % Seg Neuts % (Manual) Lymphocytes % (Manual) Seg Neutrophils # Seg Neutrophils # Man D-Dimer ABG pH ABG pO2 ABG HCO3 ABG O2 Saturation ABG Base Excess ABG Hemoglobin Oxyhemoglobin Sodium Chloride Carbon Dioxide BUN Creatinine Glucose POC Glucose 238 H 299 H 357 H Calcium Ferritin AST Lactate Dehydrogenase C-Reactive Protein Total Protein Albumin Coronavirus (PCR) 02/13/21 02/13/21 02/14/21 16:28 21:45 07:44 WBC RBC Hgb MCV MCH RDW Plt Count Lymph % (Auto) [place] % (Auto) Lymph # (Auto) Seg Neutrophils % Seg Neuts % (Manual) Lymphocytes % (Manual) Seg Neutrophils # Seg Neutrophils # Man D-Dimer ABG pH ABG pO2 ABG HCO3 ABG O2 Saturation ABG Base Excess ABG Hemoglobin Oxyhemoglobin Sodium Chloride Carbon Dioxide BUN Creatinine Glucose POC Glucose 270 H 346 H 234 H Calcium Ferritin AST Lactate Dehydrogenase C-Reactive Protein Total Protein Albumin Coronavirus (PCR) 05/21/21 05/21/21 05/21/21 11:12 16:40 21:27 WBC RBC Hgb MCV MCH RDW Plt Count Lymph % (Auto) [place] % (Auto) Lymph # (Auto) Seg Neutrophils % Seg Neuts % (Manual) Lymphocytes % (Manual) Seg Neutrophils # Seg Neutrophils # Man D-Dimer ABG pH ABG pO2 ABG HCO3 ABG O2 Saturation ABG Base Excess ABG Hemoglobin Oxyhemoglobin Sodium Chloride Carbon Dioxide BUN Creatinine Glucose POC Glucose 294 H 116 H 159 H Calcium Ferritin AST Lactate Dehydrogenase C-Reactive Protein Total Protein Albumin Coronavirus (PCR)
[2021-02-15] MEDS: INSULIN GLARGINE 100 UNITS/ML SUB-Q SCH (23:17)
[2021-02-15] MEDS: MIRTAZAPINE 15 MG TAB PO SCH (23:18)
--- NOTE | 2021-02-16 07:48 | Progress Note ---
Assessment and Plan Assessment and plan: This is a 55-year-old female with schizophrenia who presented to [facility] on 01/18 for shortness of breath, cough, subjective fever and not feeling well for the last couple days with known COVID-19 exposure. While in the emergency room patient was switched from non rebreather mask to high flow nasal cannula and his CTA chest showed no acute pulmonary embolism. Patient was admitted to the hospital service as a COVID-19 PUI with consults to CCM, infectious disease, psych. Severe COVID-19 pneumonia Acute hypoxic respiratory failure Obesity Schizophrenia Leukocytosis Hyperglycemia Schizophrenia Hypernatremia Hypercholermia -CCM, infectious disease, psychiatry consulted, appreciate recommendations -COVID-19 PCR positive -Droplet/contact isolation -Remdesivir, azithromycin, ceftriaxone, dexamethasone (twice daily dosing) -s/p Actemra -Wean supplemental oxygen as tolerated, pulmonary hygiene -Prone as tolerated -Trend COVID-19 inflammatory markers for risk stratification, CBC, CMP -SSI, Lantus -01/18 bilateral lower extremity Doppler ultrasound negative for DVT -01/17 CTA shows no evidence of pulmonary embolism, extensive bilateral pneumonia, hepatomegaly with hepatic steatosis 01/18/2021 -Acute hypoxic respiratory failure requiring high flow oxygen 40 L. Nebulizer treatment -Patient is admitted for suspected Covid pneumonia. Patient is on dexamethasone, COVID-19 test is pending. Patient is on empiric antibiotics. -ID consulted, will consult pulmonary. -Patient has hyponatremia yesterday and I will repeat and if it is low I will manage accordingly -Patient has elevated D-dimer and CTA chest and bilateral Doppler ultrasound of the lower extremities pending 01/19/2021 -Acute hypoxic respiratory failure currently on BiPAP, nebulizer treatment. I will put in orders to transfer to [facility] yesterday but there was no bed. -Patient is positive for Covid and she is on Decadron and remdesivir. Actemra was ordered on 01/19/2021 -ID evaluated the patient and recommend to continue Decadron and remdesivir, also to continue ceftriaxone and azithromycin for 5 days because of the elevated procalcitonin level. Pulmonary was consulted and recommend to continue current management and add Lasix -CTA chest was done and significant for bilateral pulmonary opacities, negative for PE, Doppler ultrasound of the lower extremities was negative for DVT. -Prognosis is guarded. -Patient is currently on BiPAP and she was agitated and trying to take off the BiPAP, I put the patient on restraints. Discussed with housekeeper supervisor to transfer the patient to IMCU and if there is no bed she need to be transferred to CCU. 01/20: Patient received 5 mg of Haldol for severe agitation and refusal to keep high flow nasal cannula in place. [facility] ordered Lasix again. Psych was consulted today. Patient was on BiPAP therapy all night and RT attempted to give her a break patient is on high flow nasal cannula however she did not keep this in place and was paced back on BiPAP after receiving Haldol. She was started on Lantus today. 01/21: Patient is on BiPAP and on time examination was on 20/10 100% FiO2. Patient was started on Lantus. Psych consult completed and started on Haldol p.o. twice daily and Mirtazepin PO daily. No acute events reported overnight. Patient's D-dimer is greater than 10,000 started on prophylactic Lovenox as recent CTA chest and bilateral lower extremity Doppler ultrasound were negative. 01/22: Patient has been taken off BiPAP therapy and placed on high flow nasal cannula. Patient has been downgraded to IMCU. Patient's hyponatremia and hypochloremia have worsened. 01/23: Patient was on BiPAP overnight with FiO2 85% and IPAP 20/EPAP 10. Patient currently with high flow nasal cannula 40 L O2 with an FiO2 of 100%. Continue remdesivir and dexamethasone. Patient is s/p Actemra on 01/20. Continue empiric antibiotics per ID recommendations. Continue anticoagulation per protocol. 01/24: Patient is tachycardic and hypertensive and [facility] has opted to add amlo dipine. Patient remains on 40 L 100% high flow nasal cannula. Continue remdesivir and dexamethasone. Patient is s/p Actemra on 01/20. Continue empiric antibiotics per ID recommendations. Continue anticoagulation per protocol. 01/25: Patient currently with high flow nasal cannula 40 L/min with FiO2 100%. Continue dexamethasone. Patient has completed remdesivir and s/p Actemra on 01/20. Continue full dose anticoagulation given high elevated D-dimer. Continue to trend inflammatory markers. Prognosis remains guarded. 01/26: Patient currently with high flow nasal cannula 35 L/min and FiO2 90%. Continue dexamethasone. Patient has completed remdesivir and s/p Actemra on 01/20. Continue full dose anticoagulation given high elevated D-dimer. Continue to trend inflammatory markers. Prognosis remains guarded. 01/27: Patient currently with high flow nasal cannula/Vapotherm 35 L/min O2 with F iO2 90%. Patient has completed remdesivir and s/p Actemra on 01/20. Continue full dose anticoagulation given high elevated D-dimer. Continue to trend inflammatory markers. Prognosis remains guarded. 01/28; Patient currently with high flow nasal cannula/Vapotherm 35 L/min O2 with FiO2 90%. Patient has completed remdesivir and s/p Actemra on 01/20. Continue full dose anticoagulation given high elevated D-dimer. Continue to trend inflammatory markers. Prognosis remains guarded. 01/29; patient is currently on 35 L of high flow oxygen. Prognosis guarded. Patient can be transferred to regular floor. 01/30/2021; patient is currently on 35 L of high flow oxygen, FiO2 of 65%. Patient has flat affect and did not talk to me. Patient refused most of her p.o. medications. Patient finished remdesivir, steroid. 01/31/2021; patient is on 35 L of high flow oxygen, FiO2 65%. Patient was calm and cooperative and communicative today. pulmonary is following. Patient finished remdesivir and steroid. 02/01/2021; patient was on 40 L of high flow oxygen.. I have called and discussed with her mother yesterday. Her mother told me patient was last followed at [facility] and I called facility and they told me medication she was on and I put these medications. Patient refused to eat so I put the patient on NG tube feeding for medications. Prognosis is guarded. 02/02/2021; patient is on 4 L of high flow oxygen with FiO2 of 60%. Her outpatient psych medications were reconciled. Patient was taking medications and as needed NG tube. Pulmonary is following the patient. 02/03/21: Patient noted with mild epistaxis this morning we will order some Afrin to help. Continue current management patient is on 35 L high flow. No worsening distress but still with intermittent confusion sometimes takes off the oxygen. Will repeat a trial of Lasix and monitor renal function with a.m. labs. Plan discussed with nurse at bedside. I also encouraged proning again. 02/04: Unfortunately still with hypoxia desaturating required increased to 50 L and 70% will gradually taper down. Patient due to her underlying psych history of schizophrenia is noncompliant. Daughter is working on getting guardianship over the patient. This will likely be a slow process nevertheless we will still obtain a CT of the head to ensure no other pathology. We will get an ABG and a chest x-ray today. 02/05: Patient overnight had an episode where she coughed up blood. H&H has remained stable. She has been since discontinued from full dose anticoagulants to DVT prophylactic dose. Chest x-ray shows mild worsening of congestion. Will discuss with pulmonary if patient will benefit from BiPAP during hours of sleep. Still awaiting information from family on prior psych medications that the hayden nguyen was on psych review with psychiatry team as her mental status remains a deterrent and an impediment to oxygen management. We will give a trial dose of Lasix x 3 days. Will transfer to [facility] for closer monitoring 02/06: Continue supportive care, 2 more days of lasix, monitor BMP closely wean oxygen as tolerated, pulmonary input noted 02/07: Continues on High flow. Refusing medications, still with severe hypoxia, Discussed with Psych to re-evaluate the patient. 02/08: Unfortunately patient was not seen by psych yesterday and I still do not have home medication listed I asked the family and they promised to bring her in. We discussed with nursing staff to ask again. We will also reconsult psych as her underlying psych condition is precluding improvement due to her refusal of medical treatments. Patient continues on high flow 10 today will be to further wean down if tolerated. She is still refusing prone position 02/09: Patient remains on oxygen, not compliance, continues on restraints to assist with compliance, will try to wean again 02/10: Restart lasix, discussed with Administration Professional considering starting on PrECEDEX, Monitor electrolytes. Prognosis is guarded. 02/11/2021; patient is on Lasix, Precedex and Solu-Medrol 40 mg every 8 hours. Patient's blood sugar is elevated and I increase Lantus from 20-25 nightly, give her a dose of 10 units of Lantus now. Will monitor blood sugar. Prognosis very poor. 02/12/2021; patient is on 40 L of high flow oxygen, 94% FiO2. Pulmonary is following the patient and recommendations noted. Dr Mancilla Discussed with the patient and the mother about the plan of care and the high risk of her condition and refusal of care. 02/13/2021; patient was on 30 L of high flow oxygen with FiO2 of 90%. Pulmonary is following the patient. Continue IMC care. Prognosis is guarded. 02/14/2021; patient is on 30 L of high flow oxygen with FiO2 of 90%. Continue inpatient care. 02/15/2021; patient was alert and oriented. Patient states she is feeling okay today. Patient is on 30 L of high flow oxygen with FiO2 of 90%. Patient was given Lasix yesterday. Wean as tolerated. 02/16/2021; patient was alert and oriented. Patient states she is feeling better. Patient is on 25 L of high flow oxygen with FiO2 of 75%. Wean oxygen as tolerated. History Interval history: Patient was seen and evaluated this morning Patient was calm and cooperative, patient was alert and oriented Patient was on 25 L of oxygen with FiO2 of 75% Hospitalist Physical - Physical exam Narrative exam: Patient was 30 L of oxygen with FiO2 of 90%. The patient appeared well nourished and normally developed. Vital signs as documented. Head exam is unremarkable. No scleral icterus . Neck is without jugular venous distension, thyromegaly, or carotid bruits. Lungs decreased air entry on both lungs Cardiac exam reveals regular rate and Rhythm. Abdominal exam reveals normal bowel sounds, nontender, no organomegaly. Extremities are nonedematous and both femoral and pedal pulses are normal. JUDGE: Patient was alert and oriented. - Constitutional Vitals: Temp Pulse Resp BP Pulse Ox 98.4 F 95 H 20 154/81 98 02/16/21 05:27 02/16/21 05:27 02/16/21 05:27 02/16/21 05:29 02/16/21 05:27 General appearance: Present: no acute distress, well-nourished HEART Score - HEART Score Troponin: Troponin T < 0.010 ng/mL (0.00-0.029) 01/17/21 16:41 Results - Labs CBC & Chem 7: 02/11/21 04:50 02/11/21 04:50 Labs: Laboratory Last Values WBC 6.4 K/mm3 (4.5-11.0) 02/11/21 04:50 RBC 4.53 M/mm3 (3.65-5.03) 02/11/21 04:50 Hgb 10.9 gm/dl (10.1-14.3) 02/11/21 04:50 Hct 35.5 % (30.3-42.9) 02/11/21 04:50 MCV 78 fl (79-97) L 02/11/21 04:50 MCH 24 pg (28-32) L 02/11/21 04:50 MCHC 31 % (30-34) 02/11/21 04:50 RDW 20.3 % (13.2-15.2) H 02/11/21 04:50 Plt Count 133 K/mm3 (140-440) L 02/11/21 04:50 Lymph % (Auto) 44.9 % (13.4-35.0) H 02/02/21 07:56 [place] % (Auto) 9.2 % (0.0-7.3) H 02/02/21 07:56 Eos % (Auto) 3.6 % (0.0-4.3) 02/02/21 07:56 Baso % (Auto) 0.3 % (0.0-1.8) 02/02/21 07:56 Lymph # (Auto) 1.4 K/mm3 (1.2-5.4) 02/02/21 07:56 [place] # (Auto) 0.3 K/mm3 (0.0-0.8) 02/02/21 07:56 Eos # (Auto) 0.1 K/mm3 (0.0-0.4) 02/02/21 07:56 Baso # (Auto) 0.0 K/mm3 (0.0-0.1) 02/02/21 07:56 Add Manual Diff Complete 01/19/21 05:11 Total Counted 100 01/19/21 05:11 Seg Neutrophils % 42.0 % (40.0-70.0) 02/02/21 07:56 Seg Neuts % (Manual) 88.0 % (40.0-70.0) H 01/19/21 05:11 Lymphocytes % (Manual) 10.0 % (13.4-35.0) L 01/19/21 05:11 Monocytes % (Manual) 2.0 % (0.0-7.3) 01/19/21 05:11 Nucleated RBC % Not Reportable 01/19/21 05:11 Seg Neutrophils # 1.3 K/mm3 (1.8-7.7) L 02/02/21 07:56 Seg Neutrophils # Man 12.5 K/mm3 (1.8-7.7) H 01/19/21 05:11 Band Neutrophils # 0.0 K/mm3 01/19/21 05:11 Lymphocytes # (Manual) 1.4 K/mm3 (1.2-5.4) 01/19/21 05:11 Abs React Lymphs (Man) 0.0 K/mm3 01/19/21 05:11 Monocytes # (Manual) 0.3 K/mm3 (0.0-0.8) 01/19/21 05:11 Eosinophils # (Manual) 0.0 K/mm3 (0.0-0.4) 01/19/21 05:11 Basophils # (Manual) 0.0 K/mm3 (0.0-0.1) 01/19/21 05:11 Metamyelocytes # 0.0 K/mm3 01/19/21 05:11 Myelocytes # 0.0 K/mm3 01/19/21 05:11 Promyelocytes # 0.0 K/mm3 01/19/21 05:11 Blast Cells # 0.0 K/mm3 01/19/21 05:11 WBC Morphology Not Reportable 01/19/21 05:11 Hypersegmented Neuts Not Reportable 01/19/21 05:11 Hyposegmented Neuts Not Reportable 01/19/21 05:11 Hypogranular Neuts Not Reportable 01/19/21 05:11 Smudge Cells Not Reportable 01/19/21 05:11 Toxic Granulation Not Reportable 01/19/21 05:11 Toxic Vacuolation Not Reportable 01/19/21 05:11 Dohle Bodies Not Reportable 01/19/21 05:11 Pelger-Huet Anomaly Not Reportable 01/19/21 05:11 Inder Rods Not Reportable 01/19/21 05:11 Platelet Estimate Consistent w auto 01/19/21 05:11 Clumped Platelets Not Reportable 01/19/21 05:11 Plt Clumps, EDTA Not Reportable 01/19/21 05:11 Large Platelets Not Reportable 01/19/21 05:11 Giant Platelets Not Reportable 01/19/21 05:11 Platelet Satelliting Not Reportable 01/19/21 05:11 Plt Morphology Comment Not Reportable 01/19/21 05:11 RBC Morphology Not Reportable 01/19/21 05:11 Dimorphic RBCs Not Reportable 01/19/21 05:11 Polychromasia Not Reportable 01/19/21 05:11 Hypochromasia 1+ 01/19/21 05:11 Poikilocytosis Not Reportable 01/19/21 05:11 Anisocytosis Not Reportable 01/19/21 05:11 Microcytosis Not Reportable 01/19/21 05:11 Macrocytosis Not Reportable 01/19/21 05:11 Spherocytes Not Reportable 01/19/21 05:11 Pappenheimer Bodies Not Reportable 01/19/21 05:11 Sickle Cells Not Reportable 01/19/21 05:11 Target Cells Not Reportable 01/19/21 05:11 Tear Drop Cells Not Reportable 01/19/21 05:11 Ovalocytes Not Reportable 01/19/21 05:11 Helmet Cells Not Reportable 01/19/21 05:11 [place] Bodies Not Reportable 01/19/21 05:11 [place] Rings Not Reportable 01/19/21 05:11 [place] Cells Not Reportable 01/19/21 05:11 Bite Cells Not Reportable 01/19/21 05:11 Crenated Cell Not Reportable 01/19/21 05:11 Elliptocytes Not Reportable 01/19/21 05:11 Acanthocytes (Spur) Not Reportable 01/19/21 05:11 Rouleaux Not Reportable 01/19/21 05:11 Hemoglobin C Crystals Not Reportable 01/19/21 05:11 Schistocytes Not Reportable 01/19/21 05:11 Malaria parasites Not Reportable 01/19/21 05:11 [place] Bodies Not Reportable 01/19/21 05:11 Hem Pathologist Commnt No 01/19/21 05:11 PT 13.6 Sec. (12.2-14.9) 02/04/21 14:52 INR 1.06 (0.87-1.13) 02/04/21 14:52 APTT 30.7 Sec. (24.2-36.6) 02/04/21 14:52 D-Dimer 1884.49 ng/mlDDU (0-234) H 01/28/21 08:46 ABG pH 7.309 pH Units (7.350-7.450) L 02/10/21 09:30 ABG pCO2 59.4 mm Hg 02/10/21 09:30 ABG pO2 71.2 mm Hg (80.0-90.0) L 02/10/21 09:30 ABG HCO3 29.1 mmol/L (20.0-26.0) H 02/10/21 09:30 ABG O2 Saturation 92.4 % (95.0-99.0) L 02/10/21 09:30 ABG O2 Content 14.2 (0.0-44) 02/10/21 09:30 ABG Base Excess 1.8 mmol/L (-2.0-3.0) 02/10/21 09:30 ABG Hemoglobin 11.2 gm/dl (12.0-16.0) L 02/10/21 09:30 ABG Carboxyhemoglobin 1.8 % (0.0-5.0) 02/10/21 09:30 ABG Methemoglobin 0.6 % (0.0-1.5) 02/10/21 09:30 Oxyhemoglobin 90.2 % (95.0-99.0) L 02/10/21 09:30 FiO2 100 % 02/10/21 09:30 Sodium 142 mmol/L (137-145) 02/09/21 04:24 Potassium 3.9 mmol/L (3.6-5.0) 02/09/21 04:24 Chloride 105.5 mmol/L (98-107) 02/09/21 04:24 Carbon Dioxide 29 mmol/L (22-30) 02/09/21 04:24 Anion Gap 11 mmol/L 02/09/21 04:24 BUN 11 mg/dL (7-17) 02/09/21 04:24 Creatinine 0.7 mg/dL (0.6-1.2) D 02/11/21 04:50 Estimated GFR > 60 ml/min 02/11/21 04:50 BUN/Creatinine Ratio 28 % 02/09/21 04:24 Glucose 205 mg/dL (65-100) H 02/09/21 04:24 POC Glucose 239 mg/dL (70-105) H 02/15/21 22:29 Lactic Acid 1.70 mmol/L (0.7-2.0) 01/17/21 16:41 Calcium 8.1 mg/dL (8.4-10.2) L 02/09/21 04:24 Ferritin 797.7 ng/mL (10.0-200.0) H 01/28/21 08:46 Total Bilirubin 0.30 mg/dL (0.1-1.2) 01/21/21 11:29 AST 34 units/L (5-40) 01/21/21 11:29 ALT 38 units/L (7-56) 01/21/21 11:29 Alkaline Phosphatase 117 units/L (35-129) 01/21/21 11:29 Ammonia 43.0 umol/L (25-60) 02/04/21 14:52 Lactate Dehydrogenase 556 units/L (91-180) H 01/28/21 08:46 Troponin T < 0.010 ng/mL (0.00-0.029) 01/17/21 16:41 C-Reactive Protein 0.20 mg/dL (0.00-1.30) 01/28/21 08:46 NT-Pro-B Natriuret Pep 40.88 pg/mL (0-900) 01/17/21 16:41 Total Protein 7.3 g/dL (6.3-8.2) 01/21/21 11:29 Albumin 3.4 g/dL (3.9-5) L 01/21/21 11:29 Albumin/Globulin Ratio 0.9 % 01/21/21 11:29 Procalcitonin 0.39 ng/mL (<0.15) 01/17/21 17:46 Coronavirus (PCR) Negative (Negative) 02/11/21 09:10 Estrada/IV: Voiding Method External Female Catheter Active Medications - Current Medications Current Medications: Generic Name Dose Route Start Last Admin Trade Name Freq PRN Reason Stop Dose Admin Acetaminophen 650 mg 01/18/21 00:36 02/11/21 22:49 Acetaminophen 325 Mg Tab PO 650 mg Q4H PRN Administration Pain MILD(1-3)/Fever >100.5/PAN Albuterol/Ipratropium 1 ampul 02/01/21 14:00 02/15/21 19:10 Ipratropium/Albuterol Sulfate 3 Ml Ampul.Neb IH 1 ampul TIDRT PJ Administration Apixaban 2.5 mg 02/04/21 22:00 02/15/21 23:18 Apixaban 2.5 Mg Tab PO Not Given Q12HR [facility] Protocol Aripiprazole 15 mg 01/31/21 13:00 02/15/21 11:07 Aripiprazole 15 Mg Tab PO 15 mg QDAY PJ Administration Ascorbic Acid 1,000 mg 02/04/21 10:00 02/15/21 23:19 Ascorbic Acid 500 Mg Tab PO Not Given BID [facility] Cholecalciferol 5,000 unit 02/04/21 10:00 02/15/21 11:10 Cholecalciferol (Vit D3) 5,000 Unit Tab PO 5,000 unit DAILY PJ Administration Divalproex Sodium 500 mg 01/31/21 12:00 02/15/21 11:09 Divalproex Er 500 Mg Tab PO 500 mg QDAY [facility] Administration Famotidine 20 mg 01/18/21 10:00 02/15/21 23:18 Famotidine 20 Mg Tab PO Not Given BID [facility] Hydralazine HCl 10 mg 01/18/21 00:38 02/14/21 06:22 Hydralazine 20 Mg/1 Ml Inj IV 10 mg Q6H PRN Administration htn Hydromorphone HCl 0.5 mg 01/20/21 11:00 Hydromorphone 1 Mg/1 Ml Inj IV Q6H PRN Pain , Severe (7-10) Hydrophilic Ointment 1 applic 02/03/21 12:00 Petrolatum,White 30 Gm Oint TP PRN PRN Skin Irritation Insulin Glargine 25 units 02/11/21 22:00 02/15/21 23:17 Insulin Glargine 100 Units/Ml SUB-Q 25 units QHS PJ Administration Insulin Human Lispro 0 unit 02/01/21 11:30 02/15/21 23:18 Insulin Lispro 100 Unit/Ml SUB-Q 4 unit ACHS PJ Administration Protocol Methylprednisolone Sodium Succinate 40 mg 02/10/21 14:00 02/15/21 23:19 Methylprednisolone Sod Succinate 40 Mg/1 Ml Inj IV Not Given Q8HR [facility] Metoprolol Tartrate 12.5 mg 02/01/21 12:00 02/15/21 23:18 Metoprolol Tartrate 25 Mg Tab PO Not Given BID PJ Mirtazapine 7.5 mg 01/21/21 22:00 02/15/21 23:18 Mirtazapine 15 Mg Tab PO Not Given QHS PJ Ondansetron HCl 4 mg 01/18/21 00:36 Ondansetron 4 Mg/2 Ml Inj IV Q8H PRN Nausea And Vomiting Oxymetazoline HCl 2 spray 02/03/21 12:00 02/03/21 13:17 Oxymetazoline 0.05% Nasal [place] NS 2 spray Q12H PRN Administration Congestion Paliperidone 6 mg 01/31/21 13:00 02/15/21 11:10 Paliperidone Er 3 Mg Tab PO 6 mg QDAY PJ Administration Sodium Chloride 10 ml 01/18/21 10:00 02/15/21 23:19 Sodium Chloride 0.9% 10 Ml Flush Syringe IV Not Given BID PJ Sodium Chloride 10 ml 01/18/21 00:36 Sodium Chloride 0.9% 10 Ml Flush Syringe IV PRN PRN LINE FLUSH Zinc Sulfate 220 mg 02/04/21 10:00 02/15/21 11:09 Zinc Sulfate 220 Mg Cap PO 220 mg QDAY PJ Administration Nutrition/Malnutrition Assess - Dietary Evaluation Nutrition/Malnutrition Findings: Nutrition Notes Start: 01/24/21 10:40 Freq: Status: Active Protocol: Document 02/13/21 11:12 VINAY (Rec: 02/13/21 11:16 VINAY [id number]) Co-Sign 02/13/21 11:12 JUAN ALBERTO Nutrition Notes Initial or Follow up Reassessment Current Diagnosis Respiratory Failure Other Pertinent Diagnosis pneu, COVID-19(-), AMS Current Diet Cardiac/Consistent CHO Labs/Tests No new labs Pertinent Medications Solumedrol vitamin C vitamin D3 Height 5 ft 4 in Weight 93.2 kg [place] Body Weight (kg) 54.54 BMI 35.2 Weight Status Obese Subjective/Other Information F/U for stable intakes. Per RN , pt consuming 100% meals and ONS. Percent of energy/protein needs met: 100%/100% (PO only) Burn Absent Trauma Absent GI Symptoms None Current % PO Good (75-100%) Minimum of two criteria No Energy Intake (non-severe) <75% Estimated Energy Requirement >7 days #1 Nutrition Diagnosis Inadequate oral intake As Evidenced by Signs and Symptoms pt consuming 100% meals and ONS Diagnosis Progress(for reassessment Improved documentation) Is patient on ventilator? No Is Patient Ambulatory and/or Out of Bed No REE-([facility]-confined to bed) 1812.660 Kcal/Kg value to use for calculation 15 Approximate Energy Requirements Using 1398 kcal/Kg Calculation Used for Recommendations Kcal/kg Additional Notes PRO needs: 59-74g (0.8-1g/kg AdBW 74 kg) Fluid needs: 1 mL/kcal or per MD Nutrition Intervention Change Diet Order: Continue current Add Supplement/Snack (indicate name/kcal D/C Glucerna /protein ) Goal #1 Meet at least 75% of energy and protein needs via PO and ONS intakes Anticipated Discharge Needs: Cardiac/Consistent CHO Follow-Up By: 02/18/21 Additional Comments F/U for stable intakes
[2021-02-16] MEDS: IPRATROPIUM/ALBUTEROL SULFATE 3 ML AMPUL.NEB IH SCH ×3 (08:13→19:16)
[2021-02-16] MEDS: INSULIN LISPRO 100 UNIT/ML SUB-Q SCH ×4 (09:02→22:35)
[2021-02-16] MEDS: ARIPiprazole 15 MG TAB PO SCH (11:22)
[2021-02-16] MEDS: ZINC SULFATE 220 MG CAP PO SCH (11:22)
[2021-02-16] MEDS: CHOLECALCIFEROL (VIT D3) 5,000 UNIT TAB PO SCH (11:23)
[2021-02-16] MEDS: DIVALPROEX ER 500 MG TAB PO SCH (11:23)
[2021-02-16] MEDS: FAMOTIDINE 20 MG TAB PO SCH ×2 (11:23→22:33)
[2021-02-16] MEDS: APIXABAN 2.5 MG TAB PO SCH ×2 (11:24→22:33)
[2021-02-16] MEDS: PALIPERIDONE ER 3 MG TAB PO SCH (11:24)
[2021-02-16] MEDS: ASCORBIC ACID 500 MG TAB PO SCH ×2 (11:25→22:32)
[2021-02-16] MEDS: METOPROLOL TARTRATE 25 MG TAB PO SCH ×2 (11:31→22:33)
[2021-02-16] MEDS ORDERED: FUROSEMIDE 40 MG/4 ML INJ IV NR (12:02)
--- NOTE | 2021-02-16 12:02 | Progress Note ---
Assessment and Plan 55 y/o female admitted with acute respiratory failure secondary to pneumonia, positive for Sars CoV2 02/16/21: Lasix again today. Sats improving and oxygen requirement is coming down. Continue steroids. Last chemistry was several days ago. Will check again in am. may need BID lasix. 02/15/21: Lasix today. Continue current dose of steroids. Prone if possible. 02/14/21: lasix again today. Prone if possible. Continue steroids. Guarded Prognosis 02/13/21: ordered more lasix for today. Monitor strict I/O. Prone if patient will allow. Continue steroids. 02/12/18: continue lasix therapy daily. Prone if possible. Guarded prongosis. continue steroids 02/11/21: IMS has ordered lasix daily for 3 days, will continue to monitor. May need to give an additional dose later tonight. Long discussion at bedside this am about he importance of wearing bipap at night and what that means to her overall health. Will discuss with family too. Overall prognosis is very guarded. Will do our best to not intubate this patient given her morbid obesity as this would increase her mortality rate tremendously. Please continue to document refusal of therapy when appropriate. 02/10/21: Lasix today, 40 IV. Will attempt precedex to see if this will help with mental state and cooperation in care. Will also restart steroids but use solumedrol 40q8 dosing. May need to consider adding back the Haldol PRN as well. Guarded prognosis. Will attempt our best to not intubate this patient as her mortality would be extremely high if intubated given her morbid obesity. 02/02/21: Lasix again today. Patient refuses to prone. Guarded prognosis. 02/01/21: Will give another 40 of lasix today. Will speak with RT about being more aggressive with weaning of oxygen. Prone if possible. 01/31/21: Increased lasix to 40 today. Prone if possible. 01/30/21: Lasix 20mg IV today. Continue Antipsychotic therapy management. Prone as tolerated if patient willing. 01/29/21: Will give lasix again today. Will change Haldol to IM since patient is refusing PO meds. 01/28/21: Will give lasix again today. Continue all other therapies. Prone if patient will and tolerate. STeroids. Guarded prognosis. 01/20/21: Gave Haldol 5 and patient has calmed down and become more appropriate, allowing us to place bipap back on. COntinue steroids and remdesivir therapy. Doubt patient will be able to prone successfully. Will try lasix today again to see if this helps. Very very guarded prognosis. 01/19/21: Continue decadron, suggest increase given patient body habitus to BID. ID consult for Remdesivir therapy and to see if she is a candidate for Actemra. Prone as tolerated during the day and sleep prone at night. Will give lasix again today. Guarded prognosis. 1. Prone 2. Lasix 3. Agree with steroids 4. Follow up COVID testing Guarded prognosis Subjective Date of service: 02/16/21 Principal diagnosis: Covid-19 Interval history: Down to 25 and 75%. Good sats. Objective Vital Signs - 12hr 02/16/21 02/16/21 02/16/21 05:27 05:29 08:13 Temperature 98.4 F Pulse Rate 95 H Pulse Rate [ 93 H Posterior Bilateral Throughout] Respiratory 20 Rate Respiratory 18 Rate [Posterior Bilateral Throughout] Blood Pressure 180/88 Blood Pressure 154/81 [Left] O2 Sat by Pulse 98 96 Oximetry 02/16/21 02/16/21 11:31 11:33 Temperature 99.5 F Pulse Rate 109 H 109 H Pulse Rate [ Posterior Bilateral Throughout] Respiratory 20 Rate Respiratory Rate [Posterior Bilateral Throughout] Blood Pressure 125/68 Blood Pressure 125/68 [Left] O2 Sat by Pulse 97 Oximetry Constitutional: no acute distress, alert Eyes: non-icteric ENT: oropharynx moist Neck: supple, other (large in circumference) Effort: normal Ascultation: Bilateral: clear, diminished breath sounds Cardiovascular: other (tachy, RR; no mrg) Gastrointestinal: normoactive bowel sounds, soft, non-tender, non-distended Integumentary: normal Extremities: no cyanosis, no edema, pink and warm Neurologic: normal mental status, non-focal exam, pupils equal and round Psychiatric: mood appropriate, affect normal CBC and BMP: 02/11/21 04:50 02/11/21 04:50 ABG, PT/INR, D-dimer: ABG ABG pH 7.309 pH Units (7.350-7.450) L 02/10/21 09:30 ABG pCO2 59.4 mm Hg 02/10/21 09:30 ABG pO2 71.2 mm Hg (80.0-90.0) L 02/10/21 09:30 ABG O2 Saturation 92.4 % (95.0-99.0) L 02/10/21 09:30 PT/INR, D-dimer PT 13.6 Sec. (12.2-14.9) 02/04/21 14:52 INR 1.06 (0.87-1.13) 02/04/21 14:52 D-Dimer 1884.49 ng/mlDDU (0-234) H 01/28/21 08:46 Abnormal lab findings: Abnormal Labs 01/17/21 01/17/21 01/17/21 09:25 16:41 16:41 WBC RBC 5.23 H Hgb MCV 76 L MCH 24 L RDW Plt Count Lymph % (Auto) 9.4 L Bates % (Auto) Lymph # (Auto) 0.8 L Seg Neutrophils % 85.4 H Seg Neuts % (Manual) Lymphocytes % (Manual) Seg Neutrophils # Seg Neutrophils # Man D-Dimer ABG pH ABG pO2 ABG HCO3 ABG O2 Saturation ABG Base Excess ABG Hemoglobin Oxyhemoglobin Sodium 128 L Chloride 90.8 L Carbon Dioxide BUN Creatinine Glucose 372 H POC Glucose Calcium Ferritin AST 98 H Lactate Dehydrogenase C-Reactive Protein Total Protein Albumin 3.2 L Coronavirus (PCR) Positive A 01/17/21 01/17/21 01/17/21 17:46 17:46 17:46 WBC RBC Hgb MCV MCH RDW Plt Count Lymph % (Auto) [place] % (Auto) Lymph # (Auto) Seg Neutrophils % Seg Neuts % (Manual) Lymphocytes % (Manual) Seg Neutrophils # Seg Neutrophils # Man D-Dimer 1058.54 H ABG pH ABG pO2 ABG HCO3 ABG O2 Saturation ABG Base Excess ABG Hemoglobin Oxyhemoglobin Sodium Chloride Carbon Dioxide BUN Creatinine Glucose 369 H POC Glucose Calcium Ferritin 668.4 H AST Lactate Dehydrogenase 519 H C-Reactive Protein 19.20 H Total Protein Albumin Coronavirus (PCR) 01/18/21 01/18/21 01/19/21 09:01 17:18 05:11 WBC 14.2 H RBC Hgb MCV 74 L MCH 23 L RDW Plt Count Lymph % (Auto) Bates % (Auto) Lymph # (Auto) Seg Neutrophils % Seg Neuts % (Manual) 88.0 H Lymphocytes % (Manual) 10.0 L Seg Neutrophils # Seg Neutrophils # Man 12.5 H D-Dimer ABG pH 7.461 H ABG pO2 53.1 L ABG HCO3 ABG O2 Saturation 89.4 L ABG Base Excess ABG Hemoglobin Oxyhemoglobin 88.0 L Sodium 132 L Chloride 93.6 L Carbon Dioxide BUN 18 H Creatinine Glucose 367 H POC Glucose Calcium 7.8 L Ferritin AST Lactate Dehydrogenase C-Reactive Protein Total Protein Albumin Coronavirus (PCR) 01/19/21 01/19/21 01/19/21 05:11 11:06 14:43 WBC RBC Hgb MCV MCH RDW Plt Count Lymph % (Auto) [place] % (Auto) Lymph # (Auto) Seg Neutrophils % Seg Neuts % (Manual) Lymphocytes % (Manual) Seg Neutrophils # Seg Neutrophils # Man D-Dimer ABG pH ABG pO2 ABG HCO3 ABG O2 Saturation ABG Base Excess ABG Hemoglobin Oxyhemoglobin Sodium Chloride Carbon Dioxide BUN 18 H Creatinine Glucose 304 H 379 H POC Glucose 382 H Calcium 8.3 L Ferritin AST 92 H 96 H Lactate Dehydrogenase C-Reactive Protein Total Protein Albumin 3.0 L 3.0 L Coronavirus (PCR) 01/19/21 01/19/21 01/20/21 16:18 22:18 07:31 WBC RBC Hgb MCV MCH RDW Plt Count Lymph % (Auto) [place] % (Auto) Lymph # (Auto) Seg Neutrophils % Seg Neuts % (Manual) Lymphocytes % (Manual) Seg Neutrophils # Seg Neutrophils # Man D-Dimer ABG pH ABG pO2 ABG HCO3 ABG O2 Saturation ABG Base Excess ABG Hemoglobin Oxyhemoglobin Sodium Chloride Carbon Dioxide BUN Creatinine Glucose POC Glucose 374 H 341 H 344 H Calcium Ferritin AST Lactate Dehydrogenase C-Reactive Protein Total Protein Albumin Coronavirus (PCR) 01/20/21 01/20/21 01/20/21 07:33 12:14 13:54 WBC RBC Hgb MCV MCH RDW Plt Count Lymph % (Auto) [place] % (Auto) Lymph # (Auto) Seg Neutrophils % Seg Neuts % (Manual) Lymphocytes % (Manual) Seg Neutrophils # Seg Neutrophils # Man D-Dimer ABG pH ABG pO2 ABG HCO3 ABG O2 Saturation ABG Base Excess ABG Hemoglobin Oxyhemoglobin Sodium Chloride Carbon Dioxide BUN 32 H 31 H Creatinine Glucose 343 H 396 H POC Glucose 365 H Calcium Ferritin AST 57 H 54 H Lactate Dehydrogenase C-Reactive Protein Total Protein 8.3 H Albumin 2.7 L 3.1 L Coronavirus (PCR) 01/20/21 01/20/21 01/21/21 18:28 21:25 04:45 WBC RBC Hgb MCV MCH RDW Plt Count Lymph % (Auto) [place] % (Auto) Lymph # (Auto) Seg Neutrophils % Seg Neuts % (Manual) Lymphocytes % (Manual) Seg Neutrophils # Seg Neutrophils # Man D-Dimer ABG pH ABG pO2 ABG HCO3 ABG O2 Saturation ABG Base Excess ABG Hemoglobin Oxyhemoglobin Sodium Chloride Carbon Dioxide 31 H BUN 41 H Creatinine Glucose 377 H POC Glucose 403 H 340 H Calcium Ferritin AST Lactate Dehydrogenase C-Reactive Protein Total Protein 8.3 H Albumin 3.0 L Coronavirus (PCR) 01/21/21 01/21/21 01/21/21 04:45 04:45 04:45 WBC RBC Hgb MCV MCH RDW Plt Count Lymph % (Auto) [place] % (Auto) Lymph # (Auto) Seg Neutrophils % Seg Neuts % (Manual) Lymphocytes % (Manual) Seg Neutrophils # Seg Neutrophils # Man D-Dimer > 48559 H ABG pH ABG pO2 ABG HCO3 ABG O2 Saturation ABG Base Excess ABG Hemoglobin Oxyhemoglobin Sodium Chloride Carbon Dioxide BUN Creatinine Glucose POC Glucose Calcium Ferritin 1688.0 H AST Lactate Dehydrogenase 649 H C-Reactive Protein 17.00 H Total Protein Albumin Coronavirus (PCR) 01/21/21 01/21/21 01/21/21 09:45 11:29 12:09 WBC RBC Hgb MCV MCH RDW Plt Count Lymph % (Auto) [place] % (Auto) Lymph # (Auto) Seg Neutrophils % Seg Neuts % (Manual) Lymphocytes % (Manual) Seg Neutrophils # Seg Neutrophils # Man D-Dimer ABG pH ABG pO2 ABG HCO3 ABG O2 Saturation ABG Base Excess ABG Hemoglobin Oxyhemoglobin Sodium 151 H Chloride Carbon Dioxide BUN 40 H Creatinine Glucose 412 H POC Glucose 401 H 372 H Calcium Ferritin AST Lactate Dehydrogenase C-Reactive Protein Total Protein Albumin 3.4 L Coronavirus (PCR) 01/21/21 01/21/21 01/22/21 18:26 21:09 02:00 WBC RBC Hgb MCV MCH RDW Plt Count Lymph % (Auto) [place] % (Auto) Lymph # (Auto) Seg Neutrophils % Seg Neuts % (Manual) Lymphocytes % (Manual) Seg Neutrophils # Seg Neutrophils # Man D-Dimer ABG pH ABG pO2 ABG HCO3 ABG O2 Saturation ABG Base Excess ABG Hemoglobin Oxyhemoglobin Sodium Chloride Carbon Dioxide BUN Creatinine Glucose POC Glucose 376 H 322 H 231 H Calcium Ferritin AST Lactate Dehydrogenase C-Reactive Protein Total Protein Albumin Coronavirus (PCR) 01/22/21 01/22/21 01/22/21 05:24 08:25 08:25 WBC RBC 5.44 H Hgb MCV 75 L MCH 23 L RDW 15.5 H Plt Count Lymph % (Auto) [place] % (Auto) Lymph # (Auto) Seg Neutrophils % Seg Neuts % (Manual) Lymphocytes % (Manual) Seg Neutrophils # Seg Neutrophils # Man D-Dimer ABG pH ABG pO2 ABG HCO3 ABG O2 Saturation ABG Base Excess ABG Hemoglobin Oxyhemoglobin Sodium 155 H Chloride 112.4 H Carbon Dioxide BUN 33 H Creatinine Glucose 274 H POC Glucose 275 H Calcium Ferritin AST Lactate Dehydrogenase C-Reactive Protein Total Protein Albumin Coronavirus (PCR) 01/22/21 01/22/21 01/22/21 11:53 16:03 21:41 WBC RBC Hgb MCV MCH RDW Plt Count Lymph % (Auto) [place] % (Auto) Lymph # (Auto) Seg Neutrophils % Seg Neuts % (Manual) Lymphocytes % (Manual) Seg Neutrophils # Seg Neutrophils # Man D-Dimer ABG pH ABG pO2 ABG HCO3 ABG O2 Saturation ABG Base Excess ABG Hemoglobin Oxyhemoglobin Sodium Chloride Carbon Dioxide BUN Creatinine Glucose POC Glucose 265 H 293 H 279 H Calcium Ferritin AST Lactate Dehydrogenase C-Reactive Protein Total Protein Albumin Coronavirus (PCR) 01/23/21 01/23/21 01/23/21 02:03 05:46 05:59 WBC RBC Hgb MCV MCH RDW Plt Count Lymph % (Auto) [place] % (Auto) Lymph # (Auto) Seg Neutrophils % Seg Neuts % (Manual) Lymphocytes % (Manual) Seg Neutrophils # Seg Neutrophils # Man D-Dimer ABG pH ABG pO2 ABG HCO3 ABG O2 Saturation ABG Base Excess ABG Hemoglobin Oxyhemoglobin Sodium Chloride Carbon Dioxide BUN Creatinine Glucose POC Glucose 268 H 303 H Calcium Ferritin 1116.0 H AST Lactate Dehydrogenase C-Reactive Protein Total Protein Albumin Coronavirus (PCR) 01/23/21 01/23/21 01/23/21 05:59 07:42 09:11 WBC RBC Hgb MCV MCH RDW Plt Count Lymph % (Auto) [place] % (Auto) Lymph # (Auto) Seg Neutrophils % Seg Neuts % (Manual) Lymphocytes % (Manual) Seg Neutrophils # Seg Neutrophils # Man D-Dimer ABG pH ABG pO2 ABG HCO3 ABG O2 Saturation ABG Base Excess ABG Hemoglobin Oxyhemoglobin Sodium Chloride Carbon Dioxide BUN Creatinine Glucose POC Glucose 291 H 285 H Calcium Ferritin AST Lactate Dehydrogenase 680 H C-Reactive Protein 5.80 H Total Protein Albumin Coronavirus (PCR) 01/23/21 01/23/21 01/23/21 14:06 17:05 17:59 WBC RBC Hgb MCV MCH RDW Plt Count Lymph % (Auto) [place] % (Auto) Lymph # (Auto) Seg Neutrophils % Seg Neuts % (Manual) Lymphocytes % (Manual) Seg Neutrophils # Seg Neutrophils # Man D-Dimer ABG pH ABG pO2 ABG HCO3 ABG O2 Saturation ABG Base Excess ABG Hemoglobin Oxyhemoglobin Sodium Chloride Carbon Dioxide BUN Creatinine Glucose POC Glucose 228 H 300 H 278 H Calcium Ferritin AST Lactate Dehydrogenase C-Reactive Protein Total Protein Albumin Coronavirus (PCR) 01/23/21 01/24/21 01/24/21 21:43 02:14 05:15 WBC RBC Hgb MCV MCH RDW Plt Count Lymph % (Auto) [place] % (Auto) Lymph # (Auto) Seg Neutrophils % Seg Neuts % (Manual) Lymphocytes % (Manual) Seg Neutrophils # Seg Neutrophils # Man D-Dimer ABG pH ABG pO2 ABG HCO3 ABG O2 Saturation ABG Base Excess ABG Hemoglobin Oxyhemoglobin Sodium Chloride Carbon Dioxide BUN Creatinine Glucose POC Glucose 223 H 427 H 392 H Calcium Ferritin AST Lactate Dehydrogenase C-Reactive Protein Total Protein Albumin Coronavirus (PCR) 01/24/21 01/24/21 01/24/21 07:03 07:03 09:10 WBC RBC 5.49 H Hgb MCV 75 L MCH 23 L RDW Plt Count Lymph % (Auto) 7.0 L Bates % (Auto) Lymph # (Auto) 0.5 L Seg Neutrophils % 86.1 H Seg Neuts % (Manual) Lymphocytes % (Manual) Seg Neutrophils # Seg Neutrophils # Man D-Dimer ABG pH ABG pO2 ABG HCO3 ABG O2 Saturation ABG Base Excess ABG Hemoglobin Oxyhemoglobin Sodium 149 H Chloride 111.4 H Carbon Dioxide BUN 24 H Creatinine Glucose 339 H POC Glucose 284 H Calcium Ferritin AST Lactate Dehydrogenase C-Reactive Protein Total Protein Albumin Coronavirus (PCR) 01/24/21 01/24/21 01/24/21 13:47 18:30 21:58 WBC RBC Hgb MCV MCH RDW Plt Count Lymph % (Auto) [place] % (Auto) Lymph # (Auto) Seg Neutrophils % Seg Neuts % (Manual) Lymphocytes % (Manual) Seg Neutrophils # Seg Neutrophils # Man D-Dimer ABG pH ABG pO2 ABG HCO3 ABG O2 Saturation ABG Base Excess ABG Hemoglobin Oxyhemoglobin Sodium Chloride Carbon Dioxide BUN Creatinine Glucose POC Glucose 317 H 180 H 262 H Calcium Ferritin AST Lactate Dehydrogenase C-Reactive Protein Total Protein Albumin Coronavirus (PCR) 01/25/21 01/25/21 01/25/21 01:22 05:35 08:36 WBC RBC Hgb MCV MCH RDW Plt Count Lymph % (Auto) [place] % (Auto) Lymph # (Auto) Seg Neutrophils % Seg Neuts % (Manual) Lymphocytes % (Manual) Seg Neutrophils # Seg Neutrophils # Man D-Dimer ABG pH ABG pO2 ABG HCO3 ABG O2 Saturation ABG Base Excess ABG Hemoglobin Oxyhemoglobin Sodium Chloride Carbon Dioxide BUN Creatinine Glucose POC Glucose 280 H 243 H 216 H Calcium Ferritin AST Lactate Dehydrogenase C-Reactive Protein Total Protein Albumin Coronavirus (PCR) 01/25/21 01/25/21 01/25/21 15:14 15:14 15:14 WBC RBC Hgb MCV MCH RDW Plt Count Lymph % (Auto) [place] % (Auto) Lymph # (Auto) Seg Neutrophils % Seg Neuts % (Manual) Lymphocytes % (Manual) Seg Neutrophils # Seg Neutrophils # Man D-Dimer 6312.54 H ABG pH ABG pO2 ABG HCO3 ABG O2 Saturation ABG Base Excess ABG Hemoglobin Oxyhemoglobin Sodium 146 H Chloride 108.1 H Carbon Dioxide BUN 19 H Creatinine Glucose 287 H POC Glucose Calcium 8.3 L Ferritin 869.5 H AST Lactate Dehydrogenase 685 H C-Reactive Protein Total Protein Albumin Coronavirus (PCR) 01/25/21 01/25/21 01/26/21 16:06 21:18 01:47 WBC RBC Hgb MCV MCH RDW Plt Count Lymph % (Auto) [place] % (Auto) Lymph # (Auto) Seg Neutrophils % Seg Neuts % (Manual) Lymphocytes % (Manual) Seg Neutrophils # Seg Neutrophils # Man D-Dimer ABG pH ABG pO2 ABG HCO3 ABG O2 Saturation ABG Base Excess ABG Hemoglobin Oxyhemoglobin Sodium Chloride Carbon Dioxide BUN Creatinine Glucose POC Glucose 267 H 197 H 255 H Calcium Ferritin AST Lactate Dehydrogenase C-Reactive Protein Total Protein Albumin Coronavirus (PCR) 01/26/21 01/26/21 01/26/21 05:23 05:23 05:23 WBC RBC Hgb MCV MCH RDW Plt Count Lymph % (Auto) [place] % (Auto) Lymph # (Auto) Seg Neutrophils % Seg Neuts % (Manual) Lymphocytes % (Manual) Seg Neutrophils # Seg Neutrophils # Man D-Dimer 5809.58 H ABG pH ABG pO2 ABG HCO3 ABG O2 Saturation ABG Base Excess ABG Hemoglobin Oxyhemoglobin Sodium 149 H Chloride 109.3 H Carbon Dioxide BUN 24 H Creatinine Glucose 362 H POC Glucose Calcium Ferritin 877.1 H AST Lactate Dehydrogenase 655 H C-Reactive Protein Total Protein Albumin Coronavirus (PCR) 01/26/21 01/26/21 01/26/21 05:23 06:06 09:28 WBC RBC 5.49 H Hgb MCV 77 L MCH 23 L RDW Plt Count Lymph % (Auto) [place] % (Auto) Lymph # (Auto) 0.8 L Seg Neutrophils % 78.9 H Seg Neuts % (Manual) Lymphocytes % (Manual) Seg Neutrophils # Seg Neutrophils # Man D-Dimer ABG pH ABG pO2 ABG HCO3 ABG O2 Saturation ABG Base Excess ABG Hemoglobin Oxyhemoglobin Sodium Chloride Carbon Dioxide BUN Creatinine Glucose POC Glucose 387 H 308 H Calcium Ferritin AST Lactate Dehydrogenase C-Reactive Protein Total Protein Albumin Coronavirus (PCR) 01/26/21 01/26/21 01/27/21 15:56 21:28 02:51 WBC RBC Hgb MCV MCH RDW Plt Count Lymph % (Auto) [place] % (Auto) Lymph # (Auto) Seg Neutrophils % Seg Neuts % (Manual) Lymphocytes % (Manual) Seg Neutrophils # Seg Neutrophils # Man D-Dimer ABG pH ABG pO2 ABG HCO3 ABG O2 Saturation ABG Base Excess ABG Hemoglobin Oxyhemoglobin Sodium Chloride Carbon Dioxide BUN Creatinine Glucose POC Glucose 172 H 316 H 267 H Calcium Ferritin AST Lactate Dehydrogenase C-Reactive Protein Total Protein Albumin Coronavirus (PCR) 01/27/21 01/27/21 01/27/21 04:22 04:22 04:22 WBC RBC Hgb MCV MCH RDW Plt Count Lymph % (Auto) [place] % (Auto) Lymph # (Auto) Seg Neutrophils % Seg Neuts % (Manual) Lymphocytes % (Manual) Seg Neutrophils # Seg Neutrophils # Man D-Dimer 4046.06 H ABG pH ABG pO2 ABG HCO3 ABG O2 Saturation ABG Base Excess ABG Hemoglobin Oxyhemoglobin Sodium Chloride 107.7 H Carbon Dioxide BUN 30 H Creatinine Glucose 281 H POC Glucose Calcium Ferritin 812.2 H AST Lactate Dehydrogenase 570 H C-Reactive Protein Total Protein Albumin Coronavirus (PCR) 01/27/21 01/27/21 01/27/21 04:22 05:55 12:00 WBC RBC 5.15 H Hgb MCV 76 L MCH 23 L RDW 15.5 H Plt Count Lymph % (Auto) 12.7 L Bates % (Auto) Lymph # (Auto) 0.9 L Seg Neutrophils % 81.3 H Seg Neuts % (Manual) Lymphocytes % (Manual) Seg Neutrophils # Seg Neutrophils # Man D-Dimer ABG pH ABG pO2 ABG HCO3 ABG O2 Saturation ABG Base Excess ABG Hemoglobin Oxyhemoglobin Sodium Chloride Carbon Dioxide BUN Creatinine Glucose POC Glucose 275 H 121 H Calcium Ferritin AST Lactate Dehydrogenase C-Reactive Protein Total Protein Albumin Coronavirus (PCR) 01/27/21 01/27/21 01/28/21 17:32 21:23 02:08 WBC RBC Hgb MCV MCH RDW Plt Count Lymph % (Auto) [place] % (Auto) Lymph # (Auto) Seg Neutrophils % Seg Neuts % (Manual) Lymphocytes % (Manual) Seg Neutrophils # Seg Neutrophils # Man D-Dimer ABG pH ABG pO2 ABG HCO3 ABG O2 Saturation ABG Base Excess ABG Hemoglobin Oxyhemoglobin Sodium Chloride Carbon Dioxide BUN Creatinine Glucose POC Glucose 195 H 179 H 210 H Calcium Ferritin AST Lactate Dehydrogenase C-Reactive Protein Total Protein Albumin Coronavirus (PCR) 01/28/21 01/28/21 01/28/21 05:09 08:44 08:46 WBC RBC Hgb MCV MCH RDW Plt Count Lymph % (Auto) [place] % (Auto) Lymph # (Auto) Seg Neutrophils % Seg Neuts % (Manual) Lymphocytes % (Manual) Seg Neutrophils # Seg Neutrophils # Man D-Dimer 1884.49 H ABG pH ABG pO2 ABG HCO3 ABG O2 Saturation ABG Base Excess ABG Hemoglobin Oxyhemoglobin Sodium Chloride Carbon Dioxide BUN Creatinine Glucose POC Glucose 202 H 191 H Calcium Ferritin AST Lactate Dehydrogenase C-Reactive Protein Total Protein Albumin Coronavirus (PCR) 01/28/21 01/28/21 01/28/21 08:46 08:46 12:18 WBC RBC Hgb MCV MCH RDW Plt Count Lymph % (Auto) [place] % (Auto) Lymph # (Auto) Seg Neutrophils % Seg Neuts % (Manual) Lymphocytes % (Manual) Seg Neutrophils # Seg Neutrophils # Man D-Dimer ABG pH ABG pO2 ABG HCO3 ABG O2 Saturation ABG Base Excess ABG Hemoglobin Oxyhemoglobin Sodium Chloride Carbon Dioxide BUN Creatinine Glucose POC Glucose 221 H Calcium Ferritin 797.7 H AST Lactate Dehydrogenase 556 H C-Reactive Protein Total Protein Albumin Coronavirus (PCR) 01/28/21 01/28/21 01/29/21 18:21 21:45 01:48 WBC RBC Hgb MCV MCH RDW Plt Count Lymph % (Auto) [place] % (Auto) Lymph # (Auto) Seg Neutrophils % Seg Neuts % (Manual) Lymphocytes % (Manual) Seg Neutrophils # Seg Neutrophils # Man D-Dimer ABG pH ABG pO2 ABG HCO3 ABG O2 Saturation ABG Base Excess ABG Hemoglobin Oxyhemoglobin Sodium Chloride Carbon Dioxide BUN Creatinine Glucose POC Glucose 214 H 148 H 248 H Calcium Ferritin AST Lactate Dehydrogenase C-Reactive Protein Total Protein Albumin Coronavirus (PCR) 01/29/21 01/29/21 01/29/21 05:17 10:17 11:39 WBC RBC Hgb MCV MCH RDW Plt Count Lymph % (Auto) [place] % (Auto) Lymph # (Auto) Seg Neutrophils % Seg Neuts % (Manual) Lymphocytes % (Manual) Seg Neutrophils # Seg Neutrophils # Man D-Dimer ABG pH ABG pO2 ABG HCO3 ABG O2 Saturation ABG Base Excess ABG Hemoglobin Oxyhemoglobin Sodium Chloride Carbon Dioxide BUN Creatinine Glucose POC Glucose 256 H 193 H 177 H Calcium Ferritin AST Lactate Dehydrogenase C-Reactive Protein Total Protein Albumin Coronavirus (PCR) 01/29/21 01/29/21 01/30/21 18:06 20:24 06:07 WBC RBC Hgb MCV MCH RDW Plt Count Lymph % (Auto) [place] % (Auto) Lymph # (Auto) Seg Neutrophils % Seg Neuts % (Manual) Lymphocytes % (Manual) Seg Neutrophils # Seg Neutrophils # Man D-Dimer ABG pH ABG pO2 ABG HCO3 ABG O2 Saturation ABG Base Excess ABG Hemoglobin Oxyhemoglobin Sodium Chloride Carbon Dioxide BUN Creatinine Glucose POC Glucose 107 H 114 H 114 H Calcium Ferritin AST Lactate Dehydrogenase C-Reactive Protein Total Protein Albumin Coronavirus (PCR) 01/30/21 01/30/21 01/30/21 12:08 16:11 21:19 WBC RBC Hgb MCV MCH RDW Plt Count Lymph % (Auto) [place] % (Auto) Lymph # (Auto) Seg Neutrophils % Seg Neuts % (Manual) Lymphocytes % (Manual) Seg Neutrophils # Seg Neutrophils # Man D-Dimer ABG pH ABG pO2 ABG HCO3 ABG O2 Saturation ABG Base Excess ABG Hemoglobin Oxyhemoglobin Sodium Chloride Carbon Dioxide BUN Creatinine Glucose POC Glucose 178 H 142 H 244 H Calcium Ferritin AST Lactate Dehydrogenase C-Reactive Protein Total Protein Albumin Coronavirus (PCR) 01/31/21 01/31/21 01/31/21 05:30 06:42 07:50 WBC RBC Hgb MCV MCH RDW Plt Count Lymph % (Auto) [place] % (Auto) Lymph # (Auto) Seg Neutrophils % Seg Neuts % (Manual) Lymphocytes % (Manual) Seg Neutrophils # Seg Neutrophils # Man D-Dimer ABG pH ABG pO2 ABG HCO3 ABG O2 Saturation ABG Base Excess ABG Hemoglobin Oxyhemoglobin Sodium Chloride Carbon Dioxide BUN 20 H Creatinine Glucose 160 H POC Glucose 164 H 152 H Calcium 8.0 L Ferritin AST Lactate Dehydrogenase C-Reactive Protein Total Protein Albumin Coronavirus (PCR) 01/31/21 01/31/21 01/31/21 11:40 16:37 21:01 WBC RBC Hgb MCV MCH RDW Plt Count Lymph % (Auto) [place] % (Auto) Lymph # (Auto) Seg Neutrophils % Seg Neuts % (Manual) Lymphocytes % (Manual) Seg Neutrophils # Seg Neutrophils # Man D-Dimer ABG pH ABG pO2 ABG HCO3 ABG O2 Saturation ABG Base Excess ABG Hemoglobin Oxyhemoglobin Sodium Chloride Carbon Dioxide BUN Creatinine Glucose POC Glucose 129 H 141 H 125 H Calcium Ferritin AST Lactate Dehydrogenase C-Reactive Protein Total Protein Albumin Coronavirus (PCR) 02/01/21 02/01/21 02/01/21 06:26 11:15 16:11 WBC RBC Hgb MCV MCH RDW Plt Count Lymph % (Auto) [place] % (Auto) Lymph # (Auto) Seg Neutrophils % Seg Neuts % (Manual) Lymphocytes % (Manual) Seg Neutrophils # Seg Neutrophils # Man D-Dimer ABG pH ABG pO2 ABG HCO3 ABG O2 Saturation ABG Base Excess ABG Hemoglobin Oxyhemoglobin Sodium Chloride Carbon Dioxide BUN Creatinine Glucose POC Glucose 136 H 260 H 240 H Calcium Ferritin AST Lactate Dehydrogenase C-Reactive Protein Total Protein Albumin Coronavirus (PCR) 02/01/21 02/02/21 02/02/21 22:32 07:15 07:56 WBC 3.1 L RBC Hgb MCV 75 L MCH 23 L RDW Plt Count Lymph % (Auto) 44.9 H [place] % (Auto) 9.2 H Lymph # (Auto) Seg Neutrophils % Seg Neuts % (Manual) Lymphocytes % (Manual) Seg Neutrophils # 1.3 L Seg Neutrophils # Man D-Dimer ABG pH ABG pO2 ABG HCO3 ABG O2 Saturation ABG Base Excess ABG Hemoglobin Oxyhemoglobin Sodium Chloride Carbon Dioxide BUN Creatinine Glucose POC Glucose 298 H 164 H Calcium Ferritin AST Lactate Dehydrogenase C-Reactive Protein Total Protein Albumin Coronavirus (PCR) 02/02/21 02/02/21 02/02/21 07:56 11:35 16:07 WBC RBC Hgb MCV MCH RDW Plt Count Lymph % (Auto) [place] % (Auto) Lymph # (Auto) Seg Neutrophils % Seg Neuts % (Manual) Lymphocytes % (Manual) Seg Neutrophils # Seg Neutrophils # Man D-Dimer ABG pH ABG pO2 ABG HCO3 ABG O2 Saturation ABG Base Excess ABG Hemoglobin Oxyhemoglobin Sodium Chloride Carbon Dioxide 31 H BUN Creatinine 0.4 L Glucose 159 H POC Glucose 297 H 252 H Calcium 8.2 L Ferritin AST Lactate Dehydrogenase C-Reactive Protein Total Protein Albumin Coronavirus (PCR) 02/02/21 02/03/21 02/03/21 22:33 17:04 22:17 WBC RBC Hgb MCV MCH RDW Plt Count Lymph % (Auto) [place] % (Auto) Lymph # (Auto) Seg Neutrophils % Seg Neuts % (Manual) Lymphocytes % (Manual) Seg Neutrophils # Seg Neutrophils # Man D-Dimer ABG pH ABG pO2 ABG HCO3 ABG O2 Saturation ABG Base Excess ABG Hemoglobin Oxyhemoglobin Sodium Chloride Carbon Dioxide BUN Creatinine Glucose POC Glucose 257 H 247 H 278 H Calcium Ferritin AST Lactate Dehydrogenase C-Reactive Protein Total Protein Albumin Coronavirus (PCR) 02/04/21 02/04/21 02/04/21 05:41 07:55 11:56 WBC RBC Hgb MCV MCH RDW Plt Count Lymph % (Auto) [place] % (Auto) Lymph # (Auto) Seg Neutrophils % Seg Neuts % (Manual) Lymphocytes % (Manual) Seg Neutrophils # Seg Neutrophils # Man D-Dimer ABG pH ABG pO2 ABG HCO3 ABG O2 Saturation ABG Base Excess ABG Hemoglobin Oxyhemoglobin Sodium Chloride Carbon Dioxide 31 H BUN 19 H Creatinine 0.5 L Glucose 184 H POC Glucose 182 H 227 H Calcium Ferritin AST Lactate Dehydrogenase C-Reactive Protein Total Protein Albumin Coronavirus (PCR) 02/04/21 02/04/21 02/04/21 12:45 14:52 16:45 WBC 4.0 L RBC Hgb MCV 77 L MCH 24 L RDW 15.5 H Plt Count Lymph % (Auto) [place] % (Auto) Lymph # (Auto) Seg Neutrophils % Seg Neuts % (Manual) Lymphocytes % (Manual) Seg Neutrophils # Seg Neutrophils # Man D-Dimer ABG pH ABG pO2 65.6 L ABG HCO3 30.8 H ABG O2 Saturation 94.0 L ABG Base Excess 5.5 H ABG Hemoglobin 10.3 L Oxyhemoglobin 92.3 L Sodium Chloride Carbon Dioxide BUN Creatinine Glucose POC Glucose 194 H Calcium Ferritin AST Lactate Dehydrogenase C-Reactive Protein Total Protein Albumin Coronavirus (PCR) 02/04/21 02/05/21 02/05/21 22:00 06:55 07:49 WBC RBC Hgb 10.0 L MCV MCH RDW Plt Count Lymph % (Auto) [place] % (Auto) Lymph # (Auto) Seg Neutrophils % Seg Neuts % (Manual) Lymphocytes % (Manual) Seg Neutrophils # Seg Neutrophils # Man D-Dimer ABG pH ABG pO2 ABG HCO3 ABG O2 Saturation ABG Base Excess ABG Hemoglobin Oxyhemoglobin Sodium Chloride Carbon Dioxide BUN Creatinine Glucose POC Glucose 281 H 204 H Calcium Ferritin AST Lactate Dehydrogenase C-Reactive Protein Total Protein Albumin Coronavirus (PCR) 02/05/21 02/05/21 02/05/21 11:23 16:13 16:22 WBC RBC Hgb 10.0 L MCV MCH RDW Plt Count Lymph % (Auto) [place] % (Auto) Lymph # (Auto) Seg Neutrophils % Seg Neuts % (Manual) Lymphocytes % (Manual) Seg Neutrophils # Seg Neutrophils # Man D-Dimer ABG pH ABG pO2 ABG HCO3 ABG O2 Saturation ABG Base Excess ABG Hemoglobin Oxyhemoglobin Sodium Chloride Carbon Dioxide BUN Creatinine Glucose POC Glucose 264 H 202 H Calcium Ferritin AST Lactate Dehydrogenase C-Reactive Protein Total Protein Albumin Coronavirus (PCR) 02/05/21 02/06/21 02/06/21 21:14 04:43 04:43 WBC 4.0 L RBC Hgb 10.0 L MCV 76 L MCH 23 L RDW 15.7 H Plt Count Lymph % (Auto) [place] % (Auto) Lymph # (Auto) Seg Neutrophils % Seg Neuts % (Manual) Lymphocytes % (Manual) Seg Neutrophils # Seg Neutrophils # Man D-Dimer ABG pH ABG pO2 ABG HCO3 ABG O2 Saturation ABG Base Excess ABG Hemoglobin Oxyhemoglobin Sodium Chloride Carbon Dioxide 32 H BUN Creatinine 0.4 L Glucose 163 H POC Glucose 180 H Calcium 8.3 L Ferritin AST Lactate Dehydrogenase C-Reactive Protein Total Protein Albumin Coronavirus (PCR) 02/06/21 02/06/21 02/06/21 08:01 11:44 16:11 WBC RBC Hgb MCV MCH RDW Plt Count Lymph % (Auto) [place] % (Auto) Lymph # (Auto) Seg Neutrophils % Seg Neuts % (Manual) Lymphocytes % (Manual) Seg Neutrophils # Seg Neutrophils # Man D-Dimer ABG pH ABG pO2 ABG HCO3 ABG O2 Saturation ABG Base Excess ABG Hemoglobin Oxyhemoglobin Sodium Chloride Carbon Dioxide BUN Creatinine Glucose POC Glucose 155 H 215 H 247 H Calcium Ferritin AST Lactate Dehydrogenase C-Reactive Protein Total Protein Albumin Coronavirus (PCR) 02/06/21 02/07/21 02/07/21 23:40 08:01 11:54 WBC RBC Hgb MCV MCH RDW Plt Count Lymph % (Auto) [place] % (Auto) Lymph # (Auto) Seg Neutrophils % Seg Neuts % (Manual) Lymphocytes % (Manual) Seg Neutrophils # Seg Neutrophils # Man D-Dimer ABG pH ABG pO2 ABG HCO3 ABG O2 Saturation ABG Base Excess ABG Hemoglobin Oxyhemoglobin Sodium Chloride Carbon Dioxide BUN Creatinine Glucose POC Glucose 267 H 233 H 227 H Calcium Ferritin AST Lactate Dehydrogenase C-Reactive Protein Total Protein Albumin Coronavirus (PCR) 02/07/21 02/07/2102/07/21 15:48 20:58 20:58 WBC RBC Hgb MCV MCH RDW Plt Count Lymph % (Auto) [place] % (Auto) Lymph # (Auto) Seg Neutrophils % Seg Neuts % (Manual) Lymphocytes % (Manual) Seg Neutrophils # Seg Neutrophils # Man D-Dimer ABG pH ABG pO2 ABG HCO3 ABG O2 Saturation ABG Base Excess ABG Hemoglobin Oxyhemoglobin Sodium Chloride Carbon Dioxide 32 H BUN Creatinine 0.5 L 0.5 L Glucose 236 H POC Glucose 257 H Calcium 8.3 L Ferritin AST Lactate Dehydrogenase C-Reactive Protein Total Protein Albumin Coronavirus (PCR) 02/07/21 02/08/21 02/08/21 22:10 04:46 04:46 WBC 4.2 L RBC Hgb 9.7 L MCV 78 L MCH 24 L RDW 17.9 H Plt Count 110 L Lymph % (Auto) [place] % (Auto) Lymph # (Auto) Seg Neutrophils % Seg Neuts % (Manual) Lymphocytes % (Manual) Seg Neutrophils # Seg Neutrophils # Man D-Dimer ABG pH ABG pO2 ABG HCO3 ABG O2 Saturation ABG Base Excess ABG Hemoglobin Oxyhemoglobin Sodium Chloride Carbon Dioxide BUN Creatinine 0.4 L Glucose 220 H POC Glucose 241 H Calcium 8.0 L Ferritin AST Lactate Dehydrogenase C-Reactive Protein Total Protein Albumin Coronavirus (PCR) 02/08/21 02/08/21 02/08/21 08:05 11:36 15:44 WBC RBC Hgb MCV MCH RDW Plt Count Lymph % (Auto) [place] % (Auto) Lymph # (Auto) Seg Neutrophils % Seg Neuts % (Manual) Lymphocytes % (Manual) Seg Neutrophils # Seg Neutrophils # Man D-Dimer ABG pH ABG pO2 ABG HCO3 ABG O2 Saturation ABG Base Excess ABG Hemoglobin Oxyhemoglobin Sodium Chloride Carbon Dioxide BUN Creatinine Glucose POC Glucose 208 H 200 H 149 H Calcium Ferritin AST Lactate Dehydrogenase C-Reactive Protein Total Protein Albumin Coronavirus (PCR) 02/08/21 02/09/21 02/09/21 21:35 04:24 07:39 WBC RBC Hgb MCV MCH RDW Plt Count Lymph % (Auto) [place] % (Auto) Lymph # (Auto) Seg Neutrophils % Seg Neuts % (Manual) Lymphocytes % (Manual) Seg Neutrophils # Seg Neutrophils # Man D-Dimer ABG pH ABG pO2 ABG HCO3 ABG O2 Saturation ABG Base Excess ABG Hemoglobin Oxyhemoglobin Sodium Chloride Carbon Dioxide BUN Creatinine 0.4 L Glucose 205 H POC Glucose 249 H 205 H Calcium 8.1 L Ferritin AST Lactate Dehydrogenase C-Reactive Protein Total Protein Albumin Coronavirus (PCR) 02/09/21 02/09/21 02/09/21 11:53 16:52 21:26 WBC RBC Hgb MCV MCH RDW Plt Count Lymph % (Auto) [place] % (Auto) Lymph # (Auto) Seg Neutrophils % Seg Neuts % (Manual) Lymphocytes % (Manual) Seg Neutrophils # Seg Neutrophils # Man D-Dimer ABG pH ABG pO2 ABG HCO3 ABG O2 Saturation ABG Base Excess ABG Hemoglobin Oxyhemoglobin Sodium Chloride Carbon Dioxide BUN Creatinine Glucose POC Glucose 303 H 164 H 257 H Calcium Ferritin AST Lactate Dehydrogenase C-Reactive Protein Total Protein Albumin Coronavirus (PCR) 02/10/21 02/10/21 02/10/21 09:30 09:38 11:45 WBC RBC Hgb MCV MCH RDW Plt Count Lymph % (Auto) [place] % (Auto) Lymph # (Auto) Seg Neutrophils % Seg Neuts % (Manual) Lymphocytes % (Manual) Seg Neutrophils # Seg Neutrophils # Man D-Dimer ABG pH 7.309 L ABG pO2 71.2 L ABG HCO3 29.1 H ABG O2 Saturation 92.4 L ABG Base Excess ABG Hemoglobin 11.2 L Oxyhemoglobin 90.2 L Sodium Chloride Carbon Dioxide BUN Creatinine Glucose POC Glucose 240 H 257 H Calcium Ferritin AST Lactate Dehydrogenase C-Reactive Protein Total Protein Albumin Coronavirus (PCR) 02/10/21 02/10/21 02/11/21 17:12 21:26 04:50 WBC RBC Hgb MCV 78 L MCH 24 L RDW 20.3 H Plt Count 133 L Lymph % (Auto) [place] % (Auto) Lymph # (Auto) Seg Neutrophils % Seg Neuts % (Manual) Lymphocytes % (Manual) Seg Neutrophils # Seg Neutrophils # Man D-Dimer ABG pH ABG pO2 ABG HCO3 ABG O2 Saturation ABG Base Excess ABG Hemoglobin Oxyhemoglobin Sodium Chloride Carbon Dioxide BUN Creatinine Glucose POC Glucose 178 H 362 H Calcium Ferritin AST Lactate Dehydrogenase C-Reactive Protein Total Protein Albumin Coronavirus (PCR) 02/11/21 02/11/21 02/11/21 08:02 11:52 17:14 WBC RBC Hgb MCV MCH RDW Plt Count Lymph % (Auto) [place] % (Auto) Lymph # (Auto) Seg Neutrophils % Seg Neuts % (Manual) Lymphocytes % (Manual) Seg Neutrophils # Seg Neutrophils # Man D-Dimer ABG pH ABG pO2 ABG HCO3 ABG O2 Saturation ABG Base Excess ABG Hemoglobin Oxyhemoglobin Sodium Chloride Carbon Dioxide BUN Creatinine Glucose POC Glucose 263 H 433 H 212 H Calcium Ferritin AST Lactate Dehydrogenase C-Reactive Protein Total Protein Albumin Coronavirus (PCR) 02/11/21 02/12/21 02/12/21 21:39 08:24 11:21 WBC RBC Hgb MCV MCH RDW Plt Count Lymph % (Auto) [place] % (Auto) Lymph # (Auto) Seg Neutrophils % Seg Neuts % (Manual) Lymphocytes % (Manual) Seg Neutrophils # Seg Neutrophils # Man D-Dimer ABG pH ABG pO2 ABG HCO3 ABG O2 Saturation ABG Base Excess ABG Hemoglobin Oxyhemoglobin Sodium Chloride Carbon Dioxide BUN Creatinine Glucose POC Glucose 248 H 295 H 403 H Calcium Ferritin AST Lactate Dehydrogenase C-Reactive Protein Total Protein Albumin Coronavirus (PCR) 02/12/21 02/13/21 02/13/21 16:29 07:32 12:19 WBC RBC Hgb MCV MCH RDW Plt Count Lymph % (Auto) [place] % (Auto) Lymph # (Auto) Seg Neutrophils % Seg Neuts % (Manual) Lymphocytes % (Manual) Seg Neutrophils # Seg Neutrophils # Man D-Dimer ABG pH ABG pO2 ABG HCO3 ABG O2 Saturation ABG Base Excess ABG Hemoglobin Oxyhemoglobin Sodium Chloride Carbon Dioxide BUN Creatinine Glucose POC Glucose 238 H 299 H 357 H Calcium Ferritin AST Lactate Dehydrogenase C-Reactive Protein Total Protein Albumin Coronavirus (PCR) 02/13/21 02/13/21 02/14/21 16:28 21:45 07:44 WBC RBC Hgb MCV MCH RDW Plt Count Lymph % (Auto) [place] % (Auto) Lymph # (Auto) Seg Neutrophils % Seg Neuts % (Manual) Lymphocytes % (Manual) Seg Neutrophils # Seg Neutrophils # Man D-Dimer ABG pH ABG pO2 ABG HCO3 ABG O2 Saturation ABG Base Excess ABG Hemoglobin Oxyhemoglobin Sodium Chloride Carbon Dioxide BUN Creatinine Glucose POC Glucose 270 H 346 H 234 H Calcium Ferritin AST Lactate Dehydrogenase C-Reactive Protein Total Protein Albumin Coronavirus (PCR) 02/14/21 02/14/21 02/14/21 11:12 16:40 21:27 WBC RBC Hgb MCV MCH RDW Plt Count Lymph % (Auto) [place] % (Auto) Lymph # (Auto) Seg Neutrophils % Seg Neuts % (Manual) Lymphocytes % (Manual) Seg Neutrophils # Seg Neutrophils # Man D-Dimer ABG pH ABG pO2 ABG HCO3 ABG O2 Saturation ABG Base Excess ABG Hemoglobin Oxyhemoglobin Sodium Chloride Carbon Dioxide BUN Creatinine Glucose POC Glucose 294 H 116 H 159 H Calcium Ferritin AST Lactate Dehydrogenase C-Reactive Protein Total Protein Albumin Coronavirus (PCR) 02/15/21 02/15/21 02/15/21 07:58 11:41 16:41 WBC RBC Hgb MCV MCH RDW Plt Count Lymph % (Auto) [place] % (Auto) Lymph # (Auto) Seg Neutrophils % Seg Neuts % (Manual) Lymphocytes % (Manual) Seg Neutrophils # Seg Neutrophils # Man D-Dimer ABG pH ABG pO2 ABG HCO3 ABG O2 Saturation ABG Base Excess ABG Hemoglobin Oxyhemoglobin Sodium Chloride Carbon Dioxide BUN Creatinine Glucose POC Glucose 225 H 325 H 148 H Calcium Ferritin AST Lactate Dehydrogenase C-Reactive Protein Total Protein Albumin Coronavirus (PCR) 02/15/21 22:29 WBC RBC Hgb MCV MCH RDW Plt Count Lymph % (Auto) [place] % (Auto) Lymph # (Auto) Seg Neutrophils % Seg Neuts % (Manual) Lymphocytes % (Manual) Seg Neutrophils # Seg Neutrophils # Man D-Dimer ABG pH ABG pO2 ABG HCO3 ABG O2 Saturation ABG Base Excess ABG Hemoglobin Oxyhemoglobin Sodium Chloride Carbon Dioxide BUN Creatinine Glucose POC Glucose 239 H Calcium Ferritin AST Lactate Dehydrogenase C-Reactive Protein Total Protein Albumin Coronavirus (PCR)
[2021-02-16] MEDS: methylPREDNISolone Sod Succinate 40 MG/1 ML INJ IV SCH ×3 (15:13→22:33)
[2021-02-16] MEDS: MIRTAZAPINE 15 MG TAB PO SCH (22:32)
[2021-02-16] MEDS: INSULIN GLARGINE 100 UNITS/ML SUB-Q SCH (22:33)
[2021-02-17] MEDS: methylPREDNISolone Sod Succinate 40 MG/1 ML INJ IV SCH ×3 (05:05→23:16)
[2021-02-17] MEDS: IPRATROPIUM/ALBUTEROL SULFATE 3 ML AMPUL.NEB IH SCH ×2 (07:30→14:23)
[2021-02-17 07:55] LABS: Mean Corpuscular HGB Conc 30 % (30-34); Mean Corpuscular Volume 78 fl (79-97); Platelet Count 309 K/mm3 (140-440); Red Blood Count 4.35 M/mm3 (3.65-5.03); Red Cell Distribution Width 18.9 % (13.2-15.2)
[2021-02-17 08:02] LABS: Hemoglobin 10.3 gm/dl (10.1-14.3)
[2021-02-17 08:10] LABS: Blood Urea Nitrogen 20 mg/dL (7-17); Calcium 8.6 mg/dL (8.4-10.2); Hemolysis Index 1
[2021-02-17 08:22] LABS: BUN/Creatinine Ratio 50
[2021-02-17] MEDS: INSULIN LISPRO 100 UNIT/ML SUB-Q SCH ×3 (08:58→17:37)
--- NOTE | 2021-02-17 12:16 | Progress Note ---
Assessment and Plan 55 y/o female admitted with acute respiratory failure secondary to pneumonia, positive for Sars CoV2 02/17/21: Lasix again today. Will start to wean steroids once on lower liter flow of oxygen. Not concerned about elevated bicarb on chemistry and does not need diamox therapy at this time. Will continue to follow. 02/16/21: Lasix again today. Sats improving and oxygen requirement is coming down. Continue steroids. Last chemistry was several days ago. Will check again in am. may need BID lasix. 02/15/21: Lasix today. Continue current dose of steroids. Prone if possible. 02/14/21: lasix again today. Prone if possible. Continue steroids. Guarded Prognosis 02/13/21: ordered more lasix for today. Monitor strict I/O. Prone if patient will allow. Continue steroids. 02/12/18: continue lasix therapy daily. Prone if possible. Guarded prongosis. continue steroids 02/11/21: IMS has ordered lasix daily for 3 days, will continue to monitor. May need to give an additional dose later tonight. Long discussion at bedside this am about he importance of wearing bipap at night and what that means to her overall health. Will discuss with family too. Overall prognosis is very guarded. Will do our best to not intubate this patient given her morbid obesity as this would increase her mortality rate tremendously. Please continue to document refusal of therapy when appropriate. 02/10/21: Lasix today, 40 IV. Will attempt precedex to see if this will help with mental state and cooperation in care. Will also restart steroids but use solumedrol 40q8 dosing. May need to consider adding back the Haldol PRN as w ell. Guarded prognosis. Will attempt our best to not intubate this patient as her mortality would be extremely high if intubated given her morbid obesity. 02/02/21: Lasix again today. Patient refuses to prone. Guarded prognosis. 02/01/21: Will give another 40 of lasix today. Will speak with RT about being more aggressive with weaning of oxygen. Prone if possible. 01/31/21: Increased lasix to 40 today. Prone if possible. 01/30/21: Lasix 20mg IV today. Continue Antipsychotic therapy management. Prone as tolerated if patient willing. 01/29/21: Will give lasix again today. Will change Haldol to IM since patient is refusing PO meds. 01/28/21: Will give lasix again today. Continue all other therapies. Prone if patient will and tolerate. STeroids. Guarded prognosis. 01/20/21: Gave Haldol 5 and patient has calmed down and become more appropriate, allowing us to place bipap back on. COntinue steroids and remdesivir therapy. Doubt patient will be able to prone successfully. Will try lasix today again to see if this helps. Very very guarded prognosis. 01/19/21: Continue decadron, suggest increase given patient body habitus to BID. ID consult for Remdesivir therapy and to see if she is a candidate for Actemra. Prone as tolerated during the day and sleep prone at night. Will give lasix again today. Guarded prognosis. 1. Prone 2. Lasix 3. Agree with steroids 4. Follow up COVID testing Guarded prognosis Subjective Date of service: 02/17/21 Principal diagnosis: Covid-19 Interval history: down to 25 and 55. Good sats. Objective Vital Signs - 12hr 02/17/21 02/17/21 04:31 07:30 Temperature 97.9 F Pulse Rate 89 Pulse Rate [ 88 Anterior Bilateral Throughout] Respiratory 20 Rate Respiratory 20 Rate [Anterior Bilateral Throughout] Blood Pressure 128/67 O2 Sat by Pulse 97 93 Oximetry Constitutional: no acute distress, alert Eyes: non-icteric ENT: oropharynx moist Neck: supple, other (large in circumference) Effort: normal Ascultation: Bilateral: clear, diminished breath sounds Cardiovascular: other (tachy, RR; no mrg) Gastrointestinal: normoactive bowel sounds, soft, non-tender, non-distended Integumentary: normal Extremities: no cyanosis, no edema, pink and warm Neurologic: normal mental status, non-focal exam, pupils equal and round Psychiatric: mood appropriate, affect normal CBC and BMP: 02/17/21 06:53 02/17/21 06:53 ABG, PT/INR, D-dimer: ABG ABG pH 7.309 pH Units (7.350-7.450) L 02/10/21 09:30 ABG pCO2 59.4 mm Hg 02/10/21 09:30 ABG pO2 71.2 mm Hg (80.0-90.0) L 02/10/21 09:30 ABG O2 Saturation 92.4 % (95.0-99.0) L 02/10/21 09:30 PT/INR, D-dimer PT 13.6 Sec. (12.2-14.9) 02/04/21 14:52 INR 1.06 (0.87-1.13) 02/04/21 14:52 D-Dimer 1884.49 ng/mlDDU (0-234) H 01/28/21 08:46 Abnormal lab findings: Abnormal Labs 01/17/21 01/17/21 01/17/21 09:25 16:41 16:41 WBC RBC 5.23 H Hgb MCV 76 L MCH 24 L RDW Plt Count Lymph % (Auto) 9.4 L [place] % (Auto) Lymph # (Auto) 0.8 L Seg Neutrophils % 85.4 H Seg Neuts % (Manual) Lymphocytes % (Manual) Seg Neutrophils # Seg Neutrophils # Man D-Dimer ABG pH ABG pO2 ABG HCO3 ABG O2 Saturation ABG Base Excess ABG Hemoglobin Oxyhemoglobin Sodium 128 L Chloride 90.8 L Carbon Dioxide BUN Creatinine Glucose 372 H POC Glucose Calcium Ferritin AST 98 H Lactate Dehydrogenase C-Reactive Protein Total Protein Albumin 3.2 L Coronavirus (PCR) Positive A 01/17/21 01/17/21 01/17/21 17:46 17:46 17:46 WBC RBC Hgb MCV MCH RDW Plt Count Lymph % (Auto) [place] % (Auto) Lymph # (Auto) Seg Neutrophils % Seg Neuts % (Manual) Lymphocytes % (Manual) Seg Neutrophils # Seg Neutrophils # Man D-Dimer 1058.54 H ABG pH ABG pO2 ABG HCO3 ABG O2 Saturation ABG Base Excess ABG Hemoglobin Oxyhemoglobin Sodium Chloride Carbon Dioxide BUN Creatinine Glucose 369 H POC Glucose Calcium Ferritin 668.4 H AST Lactate Dehydrogenase 519 H C-Reactive Protein 19.20 H Total Protein Albumin Coronavirus (PCR) 01/18/21 01/18/21 01/19/21 09:01 17:18 05:11 WBC 14.2 H RBC Hgb MCV 74 L MCH 23 L RDW Plt Count Lymph % (Auto) [place] % (Auto) Lymph # (Auto) Seg Neutrophils % Seg Neuts % (Manual) 88.0 H Lymphocytes % (Manual) 10.0 L Seg Neutrophils # Seg Neutrophils # Man 12.5 H D-Dimer ABG pH 7.461 H ABG pO2 53.1 L ABG HCO3 ABG O2 Saturation 89.4 L ABG Base Excess ABG Hemoglobin Oxyhemoglobin 88.0 L Sodium 132 L Chloride 93.6 L Carbon Dioxide BUN 18 H Creatinine Glucose 367 H POC Glucose Calcium 7.8 L Ferritin AST Lactate Dehydrogenase C-Reactive Protein Total Protein Albumin Coronavirus (PCR) 01/19/21 01/19/21 01/19/21 05:11 11:06 14:43 WBC RBC Hgb MCV MCH RDW Plt Count Lymph % (Auto) [place] % (Auto) Lymph # (Auto) Seg Neutrophils % Seg Neuts % (Manual) Lymphocytes % (Manual) Seg Neutrophils # Seg Neutrophils # Man D-Dimer ABG pH ABG pO2 ABG HCO3 ABG O2 Saturation ABG Base Excess ABG Hemoglobin Oxyhemoglobin Sodium Chloride Carbon Dioxide BUN 18 H Creatinine Glucose 304 H 379 H POC Glucose 382 H Calcium 8.3 L Ferritin AST 92 H 96 H Lactate Dehydrogenase C-Reactive Protein Total Protein Albumin 3.0 L 3.0 L Coronavirus (PCR) 01/19/21 01/19/21 01/20/21 16:18 22:18 07:31 WBC RBC Hgb MCV MCH RDW Plt Count Lymph % (Auto) [place] % (Auto) Lymph # (Auto) Seg Neutrophils % Seg Neuts % (Manual) Lymphocytes % (Manual) Seg Neutrophils # Seg Neutrophils # Man D-Dimer ABG pH ABG pO2 ABG HCO3 ABG O2 Saturation ABG Base Excess ABG Hemoglobin Oxyhemoglobin Sodium Chloride Carbon Dioxide BUN Creatinine Glucose POC Glucose 374 H 341 H 344 H Calcium Ferritin AST Lactate Dehydrogenase C-Reactive Protein Total Protein Albumin Coronavirus (PCR) 01/20/21 01/20/21 01/20/21 07:33 12:14 13:54 WBC RBC Hgb MCV MCH RDW Plt Count Lymph % (Auto) [place] % (Auto) Lymph # (Auto) Seg Neutrophils % Seg Neuts % (Manual) Lymphocytes % (Manual) Seg Neutrophils # Seg Neutrophils # Man D-Dimer ABG pH ABG pO2 ABG HCO3 ABG O2 Saturation ABG Base Excess ABG Hemoglobin Oxyhemoglobin Sodium Chloride Carbon Dioxide BUN 32 H 31 H Creatinine Glucose 343 H 396 H POC Glucose 365 H Calcium Ferritin AST 57 H 54 H Lactate Dehydrogenase C-Reactive Protein Total Protein 8.3 H Albumin 2.7 L 3.1 L Coronavirus (PCR) 01/20/21 01/20/21 01/21/21 18:28 21:25 04:45 WBC RBC Hgb MCV MCH RDW Plt Count Lymph % (Auto) [place] % (Auto) Lymph # (Auto) Seg Neutrophils % Seg Neuts % (Manual) Lymphocytes % (Manual) Seg Neutrophils # Seg Neutrophils # Man D-Dimer ABG pH ABG pO2 ABG HCO3 ABG O2 Saturation ABG Base Excess ABG Hemoglobin Oxyhemoglobin Sodium Chloride Carbon Dioxide 31 H BUN 41 H Creatinine Glucose 377 H POC Glucose 403 H 340 H Calcium Ferritin AST Lactate Dehydrogenase C-Reactive Protein Total Protein 8.3 H Albumin 3.0 L Coronavirus (PCR) 01/21/21 01/21/21 01/21/21 04:45 04:45 04:45 WBC RBC Hgb MCV MCH RDW Plt Count Lymph % (Auto) [place] % (Auto) Lymph # (Auto) Seg Neutrophils % Seg Neuts % (Manual) Lymphocytes % (Manual) Seg Neutrophils # Seg Neutrophils # Man D-Dimer > 20136 H ABG pH ABG pO2 ABG HCO3 ABG O2 Saturation ABG Base Excess ABG Hemoglobin Oxyhemoglobin Sodium Chloride Carbon Dioxide BUN Creatinine Glucose POC Glucose Calcium Ferritin 1688.0 H AST Lactate Dehydrogenase 649 H C-Reactive Protein 17.00 H Total Protein Albumin Coronavirus (PCR) 01/21/21 01/21/21 01/21/21 09:45 11:29 12:09 WBC RBC Hgb MCV MCH RDW Plt Count Lymph % (Auto) [place] % (Auto) Lymph # (Auto) Seg Neutrophils % Seg Neuts % (Manual) Lymphocytes % (Manual) Seg Neutrophils # Seg Neutrophils # Man D-Dimer ABG pH ABG pO2 ABG HCO3 ABG O2 Saturation ABG Base Excess ABG Hemoglobin Oxyhemoglobin Sodium 151 H Chloride Carbon Dioxide BUN 40 H Creatinine Glucose 412 H POC Glucose 401 H 372 H Calcium Ferritin AST Lactate Dehydrogenase C-Reactive Protein Total Protein Albumin 3.4 L Coronavirus (PCR) 01/21/21 01/21/21 01/22/21 18:26 21:09 02:00 WBC RBC Hgb MCV MCH RDW Plt Count Lymph % (Auto) [place] % (Auto) Lymph # (Auto) Seg Neutrophils % Seg Neuts % (Manual) Lymphocytes % (Manual) Seg Neutrophils # Seg Neutrophils # Man D-Dimer ABG pH ABG pO2 ABG HCO3 ABG O2 Saturation ABG Base Excess ABG Hemoglobin Oxyhemoglobin Sodium Chloride Carbon Dioxide BUN Creatinine Glucose POC Glucose 376 H 322 H 231 H Calcium Ferritin AST Lactate Dehydrogenase C-Reactive Protein Total Protein Albumin Coronavirus (PCR) 01/22/21 01/22/21 01/22/21 05:24 08:25 08:25 WBC RBC 5.44 H Hgb MCV 75 L MCH 23 L RDW 15.5 H Plt Count Lymph % (Auto) [place] % (Auto) Lymph # (Auto) Seg Neutrophils % Seg Neuts % (Manual) Lymphocytes % (Manual) Seg Neutrophils # Seg Neutrophils # Man D-Dimer ABG pH ABG pO2 ABG HCO3 ABG O2 Saturation ABG Base Excess ABG Hemoglobin Oxyhemoglobin Sodium 155 H Chloride 112.4 H Carbon Dioxide BUN 33 H Creatinine Glucose 274 H POC Glucose 275 H Calcium Ferritin AST Lactate Dehydrogenase C-Reactive Protein Total Protein Albumin Coronavirus (PCR) 01/22/21 01/22/21 01/22/21 11:53 16:03 21:41 WBC RBC Hgb MCV MCH RDW Plt Count Lymph % (Auto) [place] % (Auto) Lymph # (Auto) Seg Neutrophils % Seg Neuts % (Manual) Lymphocytes % (Manual) Seg Neutrophils # Seg Neutrophils # Man D-Dimer ABG pH ABG pO2 ABG HCO3 ABG O2 Saturation ABG Base Excess ABG Hemoglobin Oxyhemoglobin Sodium Chloride Carbon Dioxide BUN Creatinine Glucose POC Glucose 265 H 293 H 279 H Calcium Ferritin AST Lactate Dehydrogenase C-Reactive Protein Total Protein Albumin Coronavirus (PCR) 01/23/21 01/23/21 01/23/21 02:03 05:46 05:59 WBC RBC Hgb MCV MCH RDW Plt Count Lymph % (Auto) [place] % (Auto) Lymph # (Auto) Seg Neutrophils % Seg Neuts % (Manual) Lymphocytes % (Manual) Seg Neutrophils # Seg Neutrophils # Man D-Dimer ABG pH ABG pO2 ABG HCO3 ABG O2 Saturation ABG Base Excess ABG Hemoglobin Oxyhemoglobin Sodium Chloride Carbon Dioxide BUN Creatinine Glucose POC Glucose 268 H 303 H Calcium Ferritin 1116.0 H AST Lactate Dehydrogenase C-Reactive Protein Total Protein Albumin Coronavirus (PCR) 01/23/21 01/23/21 01/23/21 05:59 07:42 09:11 WBC RBC Hgb MCV MCH RDW Plt Count Lymph % (Auto) [place] % (Auto) Lymph # (Auto) Seg Neutrophils % Seg Neuts % (Manual) Lymphocytes % (Manual) Seg Neutrophils # Seg Neutrophils # Man D-Dimer ABG pH ABG pO2 ABG HCO3 ABG O2 Saturation ABG Base Excess ABG Hemoglobin Oxyhemoglobin Sodium Chloride Carbon Dioxide BUN Creatinine Glucose POC Glucose 291 H 285 H Calcium Ferritin AST Lactate Dehydrogenase 680 H C-Reactive Protein 5.80 H Total Protein Albumin Coronavirus (PCR) 01/23/21 01/23/21 01/23/21 14:06 17:05 17:59 WBC RBC Hgb MCV MCH RDW Plt Count Lymph % (Auto) [place] % (Auto) Lymph # (Auto) Seg Neutrophils % Seg Neuts % (Manual) Lymphocytes % (Manual) Seg Neutrophils # Seg Neutrophils # Man D-Dimer ABG pH ABG pO2 ABG HCO3 ABG O2 Saturation ABG Base Excess ABG Hemoglobin Oxyhemoglobin Sodium Chloride Carbon Dioxide BUN Creatinine Glucose POC Glucose 228 H 300 H 278 H Calcium Ferritin AST Lactate Dehydrogenase C-Reactive Protein Total Protein Albumin Coronavirus (PCR) 01/23/21 01/24/21 01/24/21 21:43 02:14 05:15 WBC RBC Hgb MCV MCH RDW Plt Count Lymph % (Auto) [place] % (Auto) Lymph # (Auto) Seg Neutrophils % Seg Neuts % (Manual) Lymphocytes % (Manual) Seg Neutrophils # Seg Neutrophils # Man D-Dimer ABG pH ABG pO2 ABG HCO3 ABG O2 Saturation ABG Base Excess ABG Hemoglobin Oxyhemoglobin Sodium Chloride Carbon Dioxide BUN Creatinine Glucose POC Glucose 223 H 427 H 392 H Calcium Ferritin AST Lactate Dehydrogenase C-Reactive Protein Total Protein Albumin Coronavirus (PCR) 01/24/21 01/24/21 01/24/21 07:03 07:03 09:10 WBC RBC 5.49 H Hgb MCV 75 L MCH 23 L RDW Plt Count Lymph % (Auto) 7.0 L [place] % (Auto) Lymph # (Auto) 0.5 L Seg Neutrophils % 86.1 H Seg Neuts % (Manual) Lymphocytes % (Manual) Seg Neutrophils # Seg Neutrophils # Man D-Dimer ABG pH ABG pO2 ABG HCO3 ABG O2 Saturation ABG Base Excess ABG Hemoglobin Oxyhemoglobin Sodium 149 H Chloride 111.4 H Carbon Dioxide BUN 24 H Creatinine Glucose 339 H POC Glucose 284 H Calcium Ferritin AST Lactate Dehydrogenase C-Reactive Protein Total Protein Albumin Coronavirus (PCR) 01/24/21 01/24/21 01/24/21 13:47 18:30 21:58 WBC RBC Hgb MCV MCH RDW Plt Count Lymph % (Auto) [place] % (Auto) Lymph # (Auto) Seg Neutrophils % Seg Neuts % (Manual) Lymphocytes % (Manual) Seg Neutrophils # Seg Neutrophils # Man D-Dimer ABG pH ABG pO2 ABG HCO3 ABG O2 Saturation ABG Base Excess ABG Hemoglobin Oxyhemoglobin Sodium Chloride Carbon Dioxide BUN Creatinine Glucose POC Glucose 317 H 180 H 262 H Calcium Ferritin AST Lactate Dehydrogenase C-Reactive Protein Total Protein Albumin Coronavirus (PCR) 01/25/21 01/25/21 01/25/21 01:22 05:35 08:36 WBC RBC Hgb MCV MCH RDW Plt Count Lymph % (Auto) [place] % (Auto) Lymph # (Auto) Seg Neutrophils % Seg Neuts % (Manual) Lymphocytes % (Manual) Seg Neutrophils # Seg Neutrophils # Man D-Dimer ABG pH ABG pO2 ABG HCO3 ABG O2 Saturation ABG Base Excess ABG Hemoglobin Oxyhemoglobin Sodium Chloride Carbon Dioxide BUN Creatinine Glucose POC Glucose 280 H 243 H 216 H Calcium Ferritin AST Lactate Dehydrogenase C-Reactive Protein Total Protein Albumin Coronavirus (PCR) 01/25/21 01/25/21 01/25/21 15:14 15:14 15:14 WBC RBC Hgb MCV MCH RDW Plt Count Lymph % (Auto) [place] % (Auto) Lymph # (Auto) Seg Neutrophils % Seg Neuts % (Manual) Lymphocytes % (Manual) Seg Neutrophils # Seg Neutrophils # Man D-Dimer 6312.54 H ABG pH ABG pO2 ABG HCO3 ABG O2 Saturation ABG Base Excess ABG Hemoglobin Oxyhemoglobin Sodium 146 H Chloride 108.1 H Carbon Dioxide BUN 19 H Creatinine Glucose 287 H POC Glucose Calcium 8.3 L Ferritin 869.5 H AST Lactate Dehydrogenase 685 H C-Reactive Protein Total Protein Albumin Coronavirus (PCR) 01/25/21 01/25/21 01/26/21 16:06 21:18 01:47 WBC RBC Hgb MCV MCH RDW Plt Count Lymph % (Auto) [place] % (Auto) Lymph # (Auto) Seg Neutrophils % Seg Neuts % (Manual) Lymphocytes % (Manual) Seg Neutrophils # Seg Neutrophils # Man D-Dimer ABG pH ABG pO2 ABG HCO3 ABG O2 Saturation ABG Base Excess ABG Hemoglobin Oxyhemoglobin Sodium Chloride Carbon Dioxide BUN Creatinine Glucose POC Glucose 267 H 197 H 255 H Calcium Ferritin AST Lactate Dehydrogenase C-Reactive Protein Total Protein Albumin Coronavirus (PCR) 01/26/21 01/26/21 01/26/21 05:23 05:23 05:23 WBC RBC Hgb MCV MCH RDW Plt Count Lymph % (Auto) [place] % (Auto) Lymph # (Auto) Seg Neutrophils % Seg Neuts % (Manual) Lymphocytes % (Manual) Seg Neutrophils # Seg Neutrophils # Man D-Dimer 5809.58 H ABG pH ABG pO2 ABG HCO3 ABG O2 Saturation ABG Base Excess ABG Hemoglobin Oxyhemoglobin Sodium 149 H Chloride 109.3 H Carbon Dioxide BUN 24 H Creatinine Glucose 362 H POC Glucose Calcium Ferritin 877.1 H AST Lactate Dehydrogenase 655 H C-Reactive Protein Total Protein Albumin Coronavirus (PCR) 01/26/21 01/26/21 01/26/21 05:23 06:06 09:28 WBC RBC 5.49 H Hgb MCV 77 L MCH 23 L RDW Plt Count Lymph % (Auto) [place] % (Auto) Lymph # (Auto) 0.8 L Seg Neutrophils % 78.9 H Seg Neuts % (Manual) Lymphocytes % (Manual) Seg Neutrophils # Seg Neutrophils # Man D-Dimer ABG pH ABG pO2 ABG HCO3 ABG O2 Saturation ABG Base Excess ABG Hemoglobin Oxyhemoglobin Sodium Chloride Carbon Dioxide BUN Creatinine Glucose POC Glucose 387 H 308 H Calcium Ferritin AST Lactate Dehydrogenase C-Reactive Protein Total Protein Albumin Coronavirus (PCR) 01/26/21 01/26/21 01/27/21 15:56 21:28 02:51 WBC RBC Hgb MCV MCH RDW Plt Count Lymph % (Auto) [place] % (Auto) Lymph # (Auto) Seg Neutrophils % Seg Neuts % (Manual) Lymphocytes % (Manual) Seg Neutrophils # Seg Neutrophils # Man D-Dimer ABG pH ABG pO2 ABG HCO3 ABG O2 Saturation ABG Base Excess ABG Hemoglobin Oxyhemoglobin Sodium Chloride Carbon Dioxide BUN Creatinine Glucose POC Glucose 172 H 316 H 267 H Calcium Ferritin AST Lactate Dehydrogenase C-Reactive Protein Total Protein Albumin Coronavirus (PCR) 01/27/21 01/27/21 01/27/21 04:22 04:22 04:22 WBC RBC Hgb MCV MCH RDW Plt Count Lymph % (Auto) [place] % (Auto) Lymph # (Auto) Seg Neutrophils % Seg Neuts % (Manual) Lymphocytes % (Manual) Seg Neutrophils # Seg Neutrophils # Man D-Dimer 4046.06 H ABG pH ABG pO2 ABG HCO3 ABG O2 Saturation ABG Base Excess ABG Hemoglobin Oxyhemoglobin Sodium Chloride 107.7 H Carbon Dioxide BUN 30 H Creatinine Glucose 281 H POC Glucose Calcium Ferritin 812.2 H AST Lactate Dehydrogenase 570 H C-Reactive Protein Total Protein Albumin Coronavirus (PCR) 01/27/21 01/27/21 01/27/21 04:22 05:55 12:00 WBC RBC 5.15 H Hgb MCV 76 L MCH 23 L RDW 15.5 H Plt Count Lymph % (Auto) 12.7 L [place] % (Auto) Lymph # (Auto) 0.9 L Seg Neutrophils % 81.3 H Seg Neuts % (Manual) Lymphocytes % (Manual) Seg Neutrophils # Seg Neutrophils # Man D-Dimer ABG pH ABG pO2 ABG HCO3 ABG O2 Saturation ABG Base Excess ABG Hemoglobin Oxyhemoglobin Sodium Chloride Carbon Dioxide BUN Creatinine Glucose POC Glucose 275 H 121 H Calcium Ferritin AST Lactate Dehydrogenase C-Reactive Protein Total Protein Albumin Coronavirus (PCR) 01/27/21 01/27/21 01/28/21 17:32 21:23 02:08 WBC RBC Hgb MCV MCH RDW Plt Count Lymph % (Auto) [place] % (Auto) Lymph # (Auto) Seg Neutrophils % Seg Neuts % (Manual) Lymphocytes % (Manual) Seg Neutrophils # Seg Neutrophils # Man D-Dimer ABG pH ABG pO2 ABG HCO3 ABG O2 Saturation ABG Base Excess ABG Hemoglobin Oxyhemoglobin Sodium Chloride Carbon Dioxide BUN Creatinine Glucose POC Glucose 195 H 179 H 210 H Calcium Ferritin AST Lactate Dehydrogenase C-Reactive Protein Total Protein Albumin Coronavirus (PCR) 01/28/21 01/28/21 01/28/21 05:09 08:44 08:46 WBC RBC Hgb MCV MCH RDW Plt Count Lymph % (Auto) [place] % (Auto) Lymph # (Auto) Seg Neutrophils % Seg Neuts % (Manual) Lymphocytes % (Manual) Seg Neutrophils # Seg Neutrophils # Man D-Dimer 1884.49 H ABG pH ABG pO2 ABG HCO3 ABG O2 Saturation ABG Base Excess ABG Hemoglobin Oxyhemoglobin Sodium Chloride Carbon Dioxide BUN Creatinine Glucose POC Glucose 202 H 191 H Calcium Ferritin AST Lactate Dehydrogenase C-Reactive Protein Total Protein Albumin Coronavirus (PCR) 01/28/21 01/28/21 01/28/21 08:46 08:46 12:18 WBC RBC Hgb MCV MCH RDW Plt Count Lymph % (Auto) [place] % (Auto) Lymph # (Auto) Seg Neutrophils % Seg Neuts % (Manual) Lymphocytes % (Manual) Seg Neutrophils # Seg Neutrophils # Man D-Dimer ABG pH ABG pO2 ABG HCO3 ABG O2 Saturation ABG Base Excess ABG Hemoglobin Oxyhemoglobin Sodium Chloride Carbon Dioxide BUN Creatinine Glucose POC Glucose 221 H Calcium Ferritin 797.7 H AST Lactate Dehydrogenase 556 H C-Reactive Protein Total Protein Albumin Coronavirus (PCR) 01/28/21 01/28/21 01/29/21 18:21 21:45 01:48 WBC RBC Hgb MCV MCH RDW Plt Count Lymph % (Auto) [place] % (Auto) Lymph # (Auto) Seg Neutrophils % Seg Neuts % (Manual) Lymphocytes % (Manual) Seg Neutrophils # Seg Neutrophils # Man D-Dimer ABG pH ABG pO2 ABG HCO3 ABG O2 Saturation ABG Base Excess ABG Hemoglobin Oxyhemoglobin Sodium Chloride Carbon Dioxide BUN Creatinine Glucose POC Glucose 214 H 148 H 248 H Calcium Ferritin AST Lactate Dehydrogenase C-Reactive Protein Total Protein Albumin Coronavirus (PCR) 01/29/21 01/29/21 01/29/21 05:17 10:17 11:39 WBC RBC Hgb MCV MCH RDW Plt Count Lymph % (Auto) [place] % (Auto) Lymph # (Auto) Seg Neutrophils % Seg Neuts % (Manual) Lymphocytes % (Manual) Seg Neutrophils # Seg Neutrophils # Man D-Dimer ABG pH ABG pO2 ABG HCO3 ABG O2 Saturation ABG Base Excess ABG Hemoglobin Oxyhemoglobin Sodium Chloride Carbon Dioxide BUN Creatinine Glucose POC Glucose 256 H 193 H 177 H Calcium Ferritin AST Lactate Dehydrogenase C-Reactive Protein Total Protein Albumin Coronavirus (PCR) 01/29/21 01/29/21 01/30/21 18:06 20:24 06:07 WBC RBC Hgb MCV MCH RDW Plt Count Lymph % (Auto) [place] % (Auto) Lymph # (Auto) Seg Neutrophils % Seg Neuts % (Manual) Lymphocytes % (Manual) Seg Neutrophils # Seg Neutrophils # Man D-Dimer ABG pH ABG pO2 ABG HCO3 ABG O2 Saturation ABG Base Excess ABG Hemoglobin Oxyhemoglobin Sodium Chloride Carbon Dioxide BUN Creatinine Glucose POC Glucose 107 H 114 H 114 H Calcium Ferritin AST Lactate Dehydrogenase C-Reactive Protein Total Protein Albumin Coronavirus (PCR) 01/30/21 01/30/21 01/30/21 12:08 16:11 21:19 WBC RBC Hgb MCV MCH RDW Plt Count Lymph % (Auto) [place] % (Auto) Lymph # (Auto) Seg Neutrophils % Seg Neuts % (Manual) Lymphocytes % (Manual) Seg Neutrophils # Seg Neutrophils # Man D-Dimer ABG pH ABG pO2 ABG HCO3 ABG O2 Saturation ABG Base Excess ABG Hemoglobin Oxyhemoglobin Sodium Chloride Carbon Dioxide BUN Creatinine Glucose POC Glucose 178 H 142 H 244 H Calcium Ferritin AST Lactate Dehydrogenase C-Reactive Protein Total Protein Albumin Coronavirus (PCR) 01/31/21 01/31/21 01/31/21 05:30 06:42 07:50 WBC RBC Hgb MCV MCH RDW Plt Count Lymph % (Auto) [place] % (Auto) Lymph # (Auto) Seg Neutrophils % Seg Neuts % (Manual) Lymphocytes % (Manual) Seg Neutrophils # Seg Neutrophils # Man D-Dimer ABG pH ABG pO2 ABG HCO3 ABG O2 Saturation ABG Base Excess ABG Hemoglobin Oxyhemoglobin Sodium Chloride Carbon Dioxide BUN 20 H Creatinine Glucose 160 H POC Glucose 164 H 152 H Calcium 8.0 L Ferritin AST Lactate Dehydrogenase C-Reactive Protein Total Protein Albumin Coronavirus (PCR) 01/31/21 01/31/21 01/31/21 11:40 16:37 21:01 WBC RBC Hgb MCV MCH RDW Plt Count Lymph % (Auto) [place] % (Auto) Lymph # (Auto) Seg Neutrophils % Seg Neuts % (Manual) Lymphocytes % (Manual) Seg Neutrophils # Seg Neutrophils # Man D-Dimer ABG pH ABG pO2 ABG HCO3 ABG O2 Saturation ABG Base Excess ABG Hemoglobin Oxyhemoglobin Sodium Chloride Carbon Dioxide BUN Creatinine Glucose POC Glucose 129 H 141 H 125 H Calcium Ferritin AST Lactate Dehydrogenase C-Reactive Protein Total Protein Albumin Coronavirus (PCR) 02/01/21 02/01/21 02/01/21 06:26 11:15 16:11 WBC RBC Hgb MCV MCH RDW Plt Count Lymph % (Auto) [place] % (Auto) Lymph # (Auto) Seg Neutrophils % Seg Neuts % (Manual) Lymphocytes % (Manual) Seg Neutrophils # Seg Neutrophils # Man D-Dimer ABG pH ABG pO2 ABG HCO3 ABG O2 Saturation ABG Base Excess ABG Hemoglobin Oxyhemoglobin Sodium Chloride Carbon Dioxide BUN Creatinine Glucose POC Glucose 136 H 260 H 240 H Calcium Ferritin AST Lactate Dehydrogenase C-Reactive Protein Total Protein Albumin Coronavirus (PCR) 02/01/21 02/02/21 02/02/21 22:32 07:15 07:56 WBC 3.1 L RBC Hgb MCV 75 L MCH 23 L RDW Plt Count Lymph % (Auto) 44.9 H [place] % (Auto) 9.2 H Lymph # (Auto) Seg Neutrophils % Seg Neuts % (Manual) Lymphocytes % (Manual) Seg Neutrophils # 1.3 L Seg Neutrophils # Man D-Dimer ABG pH ABG pO2 ABG HCO3 ABG O2 Saturation ABG Base Excess ABG Hemoglobin Oxyhemoglobin Sodium Chloride Carbon Dioxide BUN Creatinine Glucose POC Glucose 298 H 164 H Calcium Ferritin AST Lactate Dehydrogenase C-Reactive Protein Total Protein Albumin Coronavirus (PCR) 02/02/21 02/02/21 02/02/21 07:56 11:35 16:07 WBC RBC Hgb MCV MCH RDW Plt Count Lymph % (Auto) [place] % (Auto) Lymph # (Auto) Seg Neutrophils % Seg Neuts % (Manual) Lymphocytes % (Manual) Seg Neutrophils # Seg Neutrophils # Man D-Dimer ABG pH ABG pO2 ABG HCO3 ABG O2 Saturation ABG Base Excess ABG Hemoglobin Oxyhemoglobin Sodium Chloride Carbon Dioxide 31 H BUN Creatinine 0.4 L Glucose 159 H POC Glucose 297 H 252 H Calcium 8.2 L Ferritin AST Lactate Dehydrogenase C-Reactive Protein Total Protein Albumin Coronavirus (PCR) 02/02/21 02/03/21 02/03/21 22:33 17:04 22:17 WBC RBC Hgb MCV MCH RDW Plt Count Lymph % (Auto) [place] % (Auto) Lymph # (Auto) Seg Neutrophils % Seg Neuts % (Manual) Lymphocytes % (Manual) Seg Neutrophils # Seg Neutrophils # Man D-Dimer ABG pH ABG pO2 ABG HCO3 ABG O2 Saturation ABG Base Excess ABG Hemoglobin Oxyhemoglobin Sodium Chloride Carbon Dioxide BUN Creatinine Glucose POC Glucose 257 H 247 H 278 H Calcium Ferritin AST Lactate Dehydrogenase C-Reactive Protein Total Protein Albumin Coronavirus (PCR) 02/04/21 02/04/21 02/04/21 05:41 07:55 11:56 WBC RBC Hgb MCV MCH RDW Plt Count Lymph % (Auto) [place] % (Auto) Lymph # (Auto) Seg Neutrophils % Seg Neuts % (Manual) Lymphocytes % (Manual) Seg Neutrophils # Seg Neutrophils # Man D-Dimer ABG pH ABG pO2 ABG HCO3 ABG O2 Saturation ABG Base Excess ABG Hemoglobin Oxyhemoglobin Sodium Chloride Carbon Dioxide 31 H BUN 19 H Creatinine 0.5 L Glucose 184 H POC Glucose 182 H 227 H Calcium Ferritin AST Lactate Dehydrogenase C-Reactive Protein Total Protein Albumin Coronavirus (PCR) 02/04/21 02/04/21 02/04/21 12:45 14:52 16:45 WBC 4.0 L RBC Hgb MCV 77 L MCH 24 L RDW 15.5 H Plt Count Lymph % (Auto) [place] % (Auto) Lymph # (Auto) Seg Neutrophils % Seg Neuts % (Manual) Lymphocytes % (Manual) Seg Neutrophils # Seg Neutrophils # Man D-Dimer ABG pH ABG pO2 65.6 L ABG HCO3 30.8 H ABG O2 Saturation 94.0 L ABG Base Excess 5.5 H ABG Hemoglobin 10.3 L Oxyhemoglobin 92.3 L Sodium Chloride Carbon Dioxide BUN Creatinine Glucose POC Glucose 194 H Calcium Ferritin AST Lactate Dehydrogenase C-Reactive Protein Total Protein Albumin Coronavirus (PCR) 02/04/21 02/05/21 02/05/21 22:00 06:55 07:49 WBC RBC Hgb 10.0 L MCV MCH RDW Plt Count Lymph % (Auto) [place] % (Auto) Lymph # (Auto) Seg Neutrophils % Seg Neuts % (Manual) Lymphocytes % (Manual) Seg Neutrophils # Seg Neutrophils # Man D-Dimer ABG pH ABG pO2 ABG HCO3 ABG O2 Saturation ABG Base Excess ABG Hemoglobin Oxyhemoglobin Sodium Chloride Carbon Dioxide BUN Creatinine Glucose POC Glucose 281 H 204 H Calcium Ferritin AST Lactate Dehydrogenase C-Reactive Protein Total Protein Albumin Coronavirus (PCR) 02/05/21 02/05/21 02/05/21 11:23 16:13 16:22 WBC RBC Hgb 10.0 L MCV MCH RDW Plt Count Lymph % (Auto) [place] % (Auto) Lymph # (Auto) Seg Neutrophils % Seg Neuts % (Manual) Lymphocytes % (Manual) Seg Neutrophils # Seg Neutrophils # Man D-Dimer ABG pH ABG pO2 ABG HCO3 ABG O2 Saturation ABG Base Excess ABG Hemoglobin Oxyhemoglobin Sodium Chloride Carbon Dioxide BUN Creatinine Glucose POC Glucose 264 H 202 H Calcium Ferritin AST Lactate Dehydrogenase C-Reactive Protein Total Protein Albumin Coronavirus (PCR) 02/05/21 02/06/21 02/06/21 21:14 04:43 04:43 WBC 4.0 L RBC Hgb 10.0 L MCV 76 L MCH 23 L RDW 15.7 H Plt Count Lymph % (Auto) [place] % (Auto) Lymph # (Auto) Seg Neutrophils % Seg Neuts % (Manual) Lymphocytes % (Manual) Seg Neutrophils # Seg Neutrophils # Man D-Dimer ABG pH ABG pO2 ABG HCO3 ABG O2 Saturation ABG Base Excess ABG Hemoglobin Oxyhemoglobin Sodium Chloride Carbon Dioxide 32 H BUN Creatinine 0.4 L Glucose 163 H POC Glucose 180 H Calcium 8.3 L Ferritin AST Lactate Dehydrogenase C-Reactive Protein Total Protein Albumin Coronavirus (PCR) 02/06/21 02/06/21 02/06/21 08:01 11:44 16:11 WBC RBC Hgb MCV MCH RDW Plt Count Lymph % (Auto) [place] % (Auto) Lymph # (Auto) Seg Neutrophils % Seg Neuts % (Manual) Lymphocytes % (Manual) Seg Neutrophils # Seg Neutrophils # Man D-Dimer ABG pH ABG pO2 ABG HCO3 ABG O2 Saturation ABG Base Excess ABG Hemoglobin Oxyhemoglobin Sodium Chloride Carbon Dioxide BUN Creatinine Glucose POC Glucose 155 H 215 H 247 H Calcium Ferritin AST Lactate Dehydrogenase C-Reactive Protein Total Protein Albumin Coronavirus (PCR) 02/06/21 02/07/21 02/07/21 23:40 08:01 11:54 WBC RBC Hgb MCV MCH RDW Plt Count Lymph % (Auto) [place] % (Auto) Lymph # (Auto) Seg Neutrophils % Seg Neuts % (Manual) Lymphocytes % (Manual) Seg Neutrophils # Seg Neutrophils # Man D-Dimer ABG pH ABG pO2 ABG HCO3 ABG O2 Saturation ABG Base Excess ABG Hemoglobin Oxyhemoglobin Sodium Chloride Carbon Dioxide BUN Creatinine Glucose POC Glucose 267 H 233 H 227 H Calcium Ferritin AST Lactate Dehydrogenase C-Reactive Protein Total Protein Albumin Coronavirus (PCR) 02/07/21 02/07/21 02/07/21 15:48 20:58 20:58 WBC RBC Hgb MCV MCH RDW Plt Count Lymph % (Auto) [place] % (Auto) Lymph # (Auto) Seg Neutrophils % Seg Neuts % (Manual) Lymphocytes % (Manual) Seg Neutrophils # Seg Neutrophils # Man D-Dimer ABG pH ABG pO2 ABG HCO3 ABG O2 Saturation ABG Base Excess ABG Hemoglobin Oxyhemoglobin Sodium Chloride Carbon Dioxide 32 H BUN Creatinine 0.5 L 0.5 L Glucose 236 H POC Glucose 257 H Calcium 8.3 L Ferritin AST Lactate Dehydrogenase C-Reactive Protein Total Protein Albumin Coronavirus (PCR) 02/07/21 02/08/21 02/08/21 22:10 04:46 04:46 WBC 4.2 L RBC Hgb 9.7 L MCV 78 L MCH 24 L RDW 17.9 H Plt Count 110 L Lymph % (Auto) [place] % (Auto) Lymph # (Auto) Seg Neutrophils % Seg Neuts % (Manual) Lymphocytes % (Manual) Seg Neutrophils # Seg Neutrophils # Man D-Dimer ABG pH ABG pO2 ABG HCO3 ABG O2 Saturation ABG Base Excess ABG Hemoglobin Oxyhemoglobin Sodium Chloride Carbon Dioxide BUN Creatinine 0.4 L Glucose 220 H POC Glucose 241 H Calcium 8.0 L Ferritin AST Lactate Dehydrogenase C-Reactive Protein Total Protein Albumin Coronavirus (PCR) 02/08/21 02/08/21 02/08/21 08:05 11:36 15:44 WBC RBC Hgb MCV MCH RDW Plt Count Lymph % (Auto) [place] % (Auto) Lymph # (Auto) Seg Neutrophils % Seg Neuts % (Manual) Lymphocytes % (Manual) Seg Neutrophils # Seg Neutrophils # Man D-Dimer ABG pH ABG pO2 ABG HCO3 ABG O2 Saturation ABG Base Excess ABG Hemoglobin Oxyhemoglobin Sodium Chloride Carbon Dioxide BUN Creatinine Glucose POC Glucose 208 H 200 H 149 H Calcium Ferritin AST Lactate Dehydrogenase C-Reactive Protein Total Protein Albumin Coronavirus (PCR) 02/08/21 02/09/21 02/09/21 21:35 04:24 07:39 WBC RBC Hgb MCV MCH RDW Plt Count Lymph % (Auto) [place] % (Auto) Lymph # (Auto) Seg Neutrophils % Seg Neuts % (Manual) Lymphocytes % (Manual) Seg Neutrophils # Seg Neutrophils # Man D-Dimer ABG pH ABG pO2 ABG HCO3 ABG O2 Saturation ABG Base Excess ABG Hemoglobin Oxyhemoglobin Sodium Chloride Carbon Dioxide BUN Creatinine 0.4 L Glucose 205 H POC Glucose 249 H 205 H Calcium 8.1 L Ferritin AST Lactate Dehydrogenase C-Reactive Protein Total Protein Albumin Coronavirus (PCR) 02/09/21 02/09/21 02/09/21 11:53 16:52 21:26 WBC RBC Hgb MCV MCH RDW Plt Count Lymph % (Auto) [place] % (Auto) Lymph # (Auto) Seg Neutrophils % Seg Neuts % (Manual) Lymphocytes % (Manual) Seg Neutrophils # Seg Neutrophils # Man D-Dimer ABG pH ABG pO2 ABG HCO3 ABG O2 Saturation ABG Base Excess ABG Hemoglobin Oxyhemoglobin Sodium Chloride Carbon Dioxide BUN Creatinine Glucose POC Glucose 303 H 164 H 257 H Calcium Ferritin AST Lactate Dehydrogenase C-Reactive Protein Total Protein Albumin Coronavirus (PCR) 02/10/21 02/10/21 02/10/21 09:30 09:38 11:45 WBC RBC Hgb MCV MCH RDW Plt Count Lymph % (Auto) [place] % (Auto) Lymph # (Auto) Seg Neutrophils % Seg Neuts % (Manual) Lymphocytes % (Manual) Seg Neutrophils # Seg Neutrophils # Man D-Dimer ABG pH 7.309 L ABG pO2 71.2 L ABG HCO3 29.1 H ABG O2 Saturation 92.4 L ABG Base Excess ABG Hemoglobin 11.2 L Oxyhemoglobin 90.2 L Sodium Chloride Carbon Dioxide BUN Creatinine Glucose POC Glucose 240 H 257 H Calcium Ferritin AST Lactate Dehydrogenase C-Reactive Protein Total Protein Albumin Coronavirus (PCR) 02/10/21 02/10/21 02/11/21 17:12 21:26 04:50 WBC RBC Hgb MCV 78 L MCH 24 L RDW 20.3 H Plt Count 133 L Lymph % (Auto) [place] % (Auto) Lymph # (Auto) Seg Neutrophils % Seg Neuts % (Manual) Lymphocytes % (Manual) Seg Neutrophils # Seg Neutrophils # Man D-Dimer ABG pH ABG pO2 ABG HCO3 ABG O2 Saturation ABG Base Excess ABG Hemoglobin Oxyhemoglobin Sodium Chloride Carbon Dioxide BUN Creatinine Glucose POC Glucose 178 H 362 H Calcium Ferritin AST Lactate Dehydrogenase C-Reactive Protein Total Protein Albumin Coronavirus (PCR) 02/11/21 02/11/21 02/11/21 08:02 11:52 17:14 WBC RBC Hgb MCV MCH RDW Plt Count Lymph % (Auto) [place] % (Auto) Lymph # (Auto) Seg Neutrophils % Seg Neuts % (Manual) Lymphocytes % (Manual) Seg Neutrophils # Seg Neutrophils # Man D-Dimer ABG pH ABG pO2 ABG HCO3 ABG O2 Saturation ABG Base Excess ABG Hemoglobin Oxyhemoglobin Sodium Chloride Carbon Dioxide BUN Creatinine Glucose POC Glucose 263 H 433 H 212 H Calcium Ferritin AST Lactate Dehydrogenase C-Reactive Protein Total Protein Albumin Coronavirus (PCR) 02/11/21 02/12/21 02/12/21 21:39 08:24 11:21 WBC RBC Hgb MCV MCH RDW Plt Count Lymph % (Auto) [place] % (Auto) Lymph # (Auto) Seg Neutrophils % Seg Neuts % (Manual) Lymphocytes % (Manual) Seg Neutrophils # Seg Neutrophils # Man D-Dimer ABG pH ABG pO2 ABG HCO3 ABG O2 Saturation ABG Base Excess ABG Hemoglobin Oxyhemoglobin Sodium Chloride Carbon Dioxide BUN Creatinine Glucose POC Glucose 248 H 295 H 403 H Calcium Ferritin AST Lactate Dehydrogenase C-Reactive Protein Total Protein Albumin Coronavirus (PCR) 02/12/21 02/13/21 02/13/21 16:29 07:32 12:19 WBC RBC Hgb MCV MCH RDW Plt Count Lymph % (Auto) [place] % (Auto) Lymph # (Auto) Seg Neutrophils % Seg Neuts % (Manual) Lymphocytes % (Manual) Seg Neutrophils # Seg Neutrophils # Man D-Dimer ABG pH ABG pO2 ABG HCO3 ABG O2 Saturation ABG Base Excess ABG Hemoglobin Oxyhemoglobin Sodium Chloride Carbon Dioxide BUN Creatinine Glucose POC Glucose 238 H 299 H 357 H Calcium Ferritin AST Lactate Dehydrogenase C-Reactive Protein Total Protein Albumin Coronavirus (PCR) 02/13/21 02/13/21 02/14/21 16:28 21:45 07:44 WBC RBC Hgb MCV MCH RDW Plt Count Lymph % (Auto) [place] % (Auto) Lymph # (Auto) Seg Neutrophils % Seg Neuts % (Manual) Lymphocytes % (Manual) Seg Neutrophils # Seg Neutrophils # Man D-Dimer ABG pH ABG pO2 ABG HCO3 ABG O2 Saturation ABG Base Excess ABG Hemoglobin Oxyhemoglobin Sodium Chloride Carbon Dioxide BUN Creatinine Glucose POC Glucose 270 H 346 H 234 H Calcium Ferritin AST Lactate Dehydrogenase C-Reactive Protein Total Protein Albumin Coronavirus (PCR) 02/14/21 02/14/21 02/14/21 11:12 16:40 21:27 WBC RBC Hgb MCV MCH RDW Plt Count Lymph % (Auto) [place] % (Auto) Lymph # (Auto) Seg Neutrophils % Seg Neuts % (Manual) Lymphocytes % (Manual) Seg Neutrophils # Seg Neutrophils # Man D-Dimer ABG pH ABG pO2 ABG HCO3 ABG O2 Saturation ABG Base Excess ABG Hemoglobin Oxyhemoglobin Sodium Chloride Carbon Dioxide BUN Creatinine Glucose POC Glucose 294 H 116 H 159 H Calcium Ferritin AST Lactate Dehydrogenase C-Reactive Protein Total Protein Albumin Coronavirus (PCR) 02/15/21 02/15/21 02/15/21 07:58 11:41 16:41 WBC RBC Hgb MCV MCH RDW Plt Count Lymph % (Auto) [place] % (Auto) Lymph # (Auto) Seg Neutrophils % Seg Neuts % (Manual) Lymphocytes % (Manual) Seg Neutrophils # Seg Neutrophils # Man D-Dimer ABG pH ABG pO2 ABG HCO3 ABG O2 Saturation ABG Base Excess ABG Hemoglobin Oxyhemoglobin Sodium Chloride Carbon Dioxide BUN Creatinine Glucose POC Glucose 225 H 325 H 148 H Calcium Ferritin AST Lactate Dehydrogenase C-Reactive Protein Total Protein Albumin Coronavirus (PCR) 02/15/21 02/16/21 02/16/21 22:29 07:55 11:02 WBC RBC Hgb MCV MCH RDW Plt Count Lymph % (Auto) [place] % (Auto) Lymph # (Auto) Seg Neutrophils % Seg Neuts % (Manual) Lymphocytes % (Manual) Seg Neutrophils # Seg Neutrophils # Man D-Dimer ABG pH ABG pO2 ABG HCO3 ABG O2 Saturation ABG Base Excess ABG Hemoglobin Oxyhemoglobin Sodium Chloride Carbon Dioxide BUN Creatinine Glucose POC Glucose 239 H 138 H 337 H Calcium Ferritin AST Lactate Dehydrogenase C-Reactive Protein Total Protein Albumin Coronavirus (PCR) 02/16/21 02/16/21 02/17/21 16:41 21:46 06:53 WBC RBC Hgb MCV 78 L MCH 24 L RDW 18.9 H Plt Count Lymph % (Auto) [place] % (Auto) Lymph # (Auto) Seg Neutrophils % Seg Neuts % (Manual) Lymphocytes % (Manual) Seg Neutrophils # Seg Neutrophils # Man D-Dimer ABG pH ABG pO2 ABG HCO3 ABG O2 Saturation ABG Base Excess ABG Hemoglobin Oxyhemoglobin Sodium Chloride Carbon Dioxide BUN Creatinine Glucose POC Glucose 138 H 286 H Calcium Ferritin AST Lactate Dehydrogenase C-Reactive Protein Total Protein Albumin Coronavirus (PCR) 02/17/21 02/17/21 02/17/21 06:53 07:37 11:12 WBC RBC Hgb MCV MCH RDW Plt Count Lymph % (Auto) [place] % (Auto) Lymph # (Auto) Seg Neutrophils % Seg Neuts % (Manual) Lymphocytes % (Manual) Seg Neutrophils # Seg Neutrophils # Man D-Dimer ABG pH ABG pO2 ABG HCO3 ABG O2 Saturation ABG Base Excess ABG Hemoglobin Oxyhemoglobin Sodium Chloride Carbon Dioxide 31 H BUN 20 H Creatinine 0.4 L Glucose 238 H POC Glucose 251 H 221 H Calcium Ferritin AST Lactate Dehydrogenase C-Reactive Protein Total Protein Albumin Coronavirus (PCR)
[2021-02-17] MEDS ORDERED: FUROSEMIDE 40 MG/4 ML INJ IV NR (12:30)
--- NOTE | 2021-02-17 12:30 | Progress Note ---
Assessment and Plan Assessment and plan: This is a 55-year-old female with schizophrenia who presented to [facility] on 01/18 for shortness of breath, cough, subjective fever and not feeling well for the last couple days with known COVID-19 exposure. While in the emergency room patient was switched from non rebreather mask to high flow nasal cannula and his CTA chest showed no acute pulmonary embolism. Patient was admitted to the hospital service as a COVID-19 PUI with consults to [facility], infectious disease, psych. 01/18/2021 -Acute hypoxic respiratory failure requiring high flow oxygen 40 L. Nebulizer treatment -Patient is admitted for suspected Covid pneumonia. Patient is on dexamethasone, COVID-19 test is pending. Patient is on empiric antibiotics. -ID consulted, will consult pulmonary. -Patient has hyponatremia yesterday and I will repeat and if it is low I will manage accordingly -Patient has elevated D-dimer and CTA chest and bilateral Doppler ultrasound of the lower extremities pending 01/19/2021 -Acute hypoxic respiratory failure currently on BiPAP, nebulizer treatment. I will put in orders to transfer to [facility] yesterday but there was no bed. -Patient is positive for Covid and she is on Decadron and remdesivir. Actemra was ordered on 01/19/2021 -ID evaluated the patient and recommend to continue Decadron and remdesivir, also to continue ceftriaxone and azithromycin for 5 days because of the elevated procalcitonin level. Pulmonary was consulted and recommend to continue current management and add Lasix -CTA chest was done and significant for bilateral pulmonary opacities, negative for PE, Doppler ultrasound of the lower extremities was negative for DVT. -Prognosis is guarded. -Patient is currently on BiPAP and she was agitated and trying to take off the BiPAP, I put the patient on restraints. Discussed with bottle house quality control technician to transfer the patient to IM and if there is no bed she need to be transferred to CCU. 01/20: Patient received 5 mg of Haldol for severe agitation and refusal to keep high flow nasal cannula in place. [facility] ordered Lasix again. Psych was consulted today. Patient was on BiPAP therapy all night and RT attempted to give her a break patient is on high flow nasal cannula however she did not keep this in place and was paced back on BiPAP after receiving Haldol. She was started on Lantus today. 01/21: Patient is on BiPAP and on time examination was on 20/10 100% FiO2. Patient was started on Lantus. Psych consult completed and started on Haldol p.o. twice daily and Mirtazepin PO daily. No acute events reported overnight. Patient's D-dimer is greater than 10,000 started on prophylactic Lovenox as recent CTA chest and bilateral lower extremity Doppler ultrasound were negative. 01/22: Patient has been taken off BiPAP therapy and placed on high flow nasal cannula. Patient has been downgraded to IMCU. Patient's hyponatremia and hypochloremia have worsened. 01/23: Patient was on BiPAP overnight with FiO2 85% and IPAP 20/EPAP 10. Patient currently with high flow nasal cannula 40 L O2 with an FiO2 of 100%. Continue remdesivir and dexamethasone. Patient is s/p Actemra on 01/20. Continue empiric antibiotics per ID recommendations. Continue anticoagulation per protocol. 01/24: Patient is tachycardic and hypertensive and [facility] has opted to add amlodipine. Patient remains on 40 L 100% high flow nasal cannula. Continue remdesivir and dexamethasone. Patient is s/p Actemra on 01/20. Continue empiric antibiotics per ID recommendations. Continue anticoagulation per protocol. 01/25: Patient currently with high flow nasal cannula 40 L/min with FiO2 100%. Continue dexamethasone. Patient has completed remdesivir and s/p Actemra on 01/20. Continue full dose anticoagulation given high elevated D-dimer. Continue to trend inflammatory markers. Prognosis remains guarded. 01/26: Patient currently with high flow nasal cannula 35 L/min and FiO2 90%. Continue dexamethasone. Patient has completed remdesivir and s/p Actemra on 01/20. Continue full dose anticoagulation given high elevated D-dimer. Continue to trend inflammatory markers. Prognosis remains guarded. 01/27: Patient currently with high flow nasal cannula/Vapotherm 35 L/min O2 with FiO2 90%. Patient has completed remdesivir and s/p Actemra on 01/20. Continue full dose anticoagulation given high elevated D-dimer. Continue to trend inflammatory markers. Prognosis remains guarded. 01/28; Patient currently with high flow nasal cannula/Vapotherm 35 L/min O2 with FiO2 90%. Patient has completed remdesivir and s/p Actemra on 01/20. Continue full dose anticoagulation given high elevated D-dimer. Continue to trend inflammatory markers. Prognosis remains guarded. 01/29; patient is currently on 35 L of high flow oxygen. Prognosis guarded. Patient can be transferred to regular floor. 01/30/2021; patient is currently on 35 L of high flow oxygen, FiO2 of 65%. Patient has flat affect and did not talk to me. Patient refused most of her p.o. medications. Patient finished remdesivir, steroid. 01/31/2021; patient is on 35 L of high flow oxygen, FiO2 65%. Patient was calm and cooperative and communicative today. pulmonary is following. Patient finished remdesivir and steroid. 02/01/2021; patient was on 40 L of high flow oxygen.. I have called and discussed with her mother yesterday. Her mother told me patient was last followed at [facility] and I called facility and they told me medication she was on and I put these medications. Patient refused to eat so I put the patient on NG tube feeding for medications. Prognosis is guarded. 02/02/2021; patient is on 4 L of high flow oxygen with FiO2 of 60%. Her outpatient psych medications were reconciled. Patient was taking medications and as needed NG tube. Pulmonary is following the patient. 02/03/21: Patient noted with mild epistaxis this morning we will order some Afrin to help. Continue current management patient is on 35 L high flow. No worsening distress but still with intermittent confusion sometimes takes off the oxygen. Will repeat a trial of Lasix and monitor renal function with a.m. labs. Plan discussed with nurse at bedside. I also encouraged proning again. 02/04: Unfortunately still with hypoxia desaturating required increased to 50 L and 70% will gradually taper down. Patient due to her underlying psych history of schizophrenia is noncompliant. Daughter is working on getting guardianship over the patient. This will likely be a slow process nevertheless we will still obtain a CT of the head to ensure no other pathology. We will get an ABG and a chest x-ray today. 02/05: Patient overnight had an episode where she coughed up blood. H&H has remained stable. She has been since discontinued from full dose anticoagulants to DVT prophylactic dose. Chest x-ray shows mild worsening of congestion. Will discuss with pulmonary if patient will benefit from BiPAP during hours of sleep. Still awaiting information from family on prior psych medications that the patient was on psych review with psychiatry team as her mental status remains a deterrent and an impediment to oxygen management. We will give a trial dose of Lasix x 3 days. Will transfer to [facility] for closer monitoring 02/06: Continue supportive care, 2 more days of lasix, monitor BMP closely wean oxygen as tolerated, pulmonary input noted 02/07: Continues on High flow. Refusing medications, still with severe hypoxia, Discussed with Psych to re-evaluate the patient. 02/08: Unfortunately patient was not seen by psych yesterday and I still do not have home medication listed I asked the family and they promised to bring her in. We discussed with nursing staff to ask again. We will also reconsult psych as her underlying psych condition is precluding improvement due to her refusal of medical treatments. Patient continues on high flow 10 today will be to further wean down if tolerated. She is still refusing prone position 02/09: Patient remains on oxygen, not compliance, continues on restraints to assist with compliance, will try to wean again 02/10: Restart lasix, discussed with Training And Development Head considering starting on PrECEDEX, Monitor electrolytes. Prognosis is guarded. 02/11/2021; patient is on Lasix, Precedex and Solu-Medrol 40 mg every 8 hours. Patient's blood sugar is elevated and I increase Lantus from 20-25 nightly, give her a dose of 10 units of Lantus now. Will monitor blood sugar. Prognosis very poor. 02/12/2021; patient is on 40 L of high flow oxygen, 94% FiO2. Pulmonary is following the patient and recommendations noted. Dr Mancilla Discussed with the patient and the mother about the plan of care and the high risk of her condition and refusal of care. 02/13/2021; patient was on 30 L of high flow oxygen with FiO2 of 90%. Pulmonary is following the patient. Continue [facility] care. Prognosis is guarded. 02/14/2021; patient is on 30 L of high flow oxygen with FiO2 of 90%. Continue inpatient care. 02/15/2021; patient was alert and oriented. Patient states she is feeling okay today. Patient is on 30 L of high flow oxygen with FiO2 of 90%. Patient was given Lasix yesterday. Wean as tolerated. 02/16/2021; patient was alert and oriented. Patient states she is feeling better . Patient is on 25 L of high flow oxygen with FiO2 of 75%. Wean oxygen as tolerated. 02/17: Continue supportive care. Continue to wean as tolerated. Blood sugar 251 mildly elevated will adjust insulin for better control as patient still on steroids Lasix today per Pulmonary no indication to wean steroids until lower FiO2 obtained. Severe COVID-19 pneumonia Acute hypoxic respiratory failure Obesity Schizophrenia Leukocytosis Hyperglycemia Schizophrenia Hypernatremia Hypercholermia -CCM, infectious disease, psychiatry consulted, appreciate recommendations -COVID-19 PCR positive -Droplet/contact isolation -Remdesivir, azithromycin, ceftriaxone, dexamethasone (twice daily dosing) -s/p Actemra -Wean supplemental oxygen as tolerated, pulmonary hygiene -Prone as tolerated -Trend COVID-19 inflammatory markers for risk stratification, CBC, CMP -SSI, Lantus -01/18 bilateral lower extremity Doppler ultrasound negative for DVT -01/17 CTA shows no evidence of pulmonary embolism, extensive bilateral pneumonia, hepatomegaly with hepatic steatosis History Interval history: Patient seen and examined confused, remains Hypoxia down to 55% on 25 L Vap otherm. Hospitalist Physical - Physical exam Narrative exam: Patient was 25 L of oxygen with FiO2 of 55%. Saturating 92% The patient appeared well nourished and normally developed. Vital signs as documented. Head exam is unremarkable. No scleral icterus . Neck is without jugular venous distension, thyromegaly, or carotid bruits. Lungs decreased air entry on both lungs Cardiac exam reveals regular rate and Rhythm. Abdominal exam reveals normal bowel sounds, nontender, no organomegaly. Extremities are nonedematous and both femoral and pedal pulses are normal. LAWN CARE PROFESSIONAL: Patient was alert and oriented. X1 to person but confused place and time - Constitutional Vitals: Temp Pulse Resp BP Pulse Ox 97.9 F 88 20 128/67 93 02/17/21 04:31 02/17/21 07:30 02/17/21 07:30 02/17/21 04:31 02/17/21 07:30 General appearance: Present: no acute distress, well-nourished HEART Score - HEART Score Troponin: Troponin T < 0.010 ng/mL (0.00-0.029) 01/17/21 16:41 Results - Labs CBC & Chem 7: 02/17/21 06:53 02/17/21 06:53 Labs: Laboratory Last Values WBC 6.3 K/mm3 (4.5-11.0) 02/17/21 06:53 RBC 4.35 M/mm3 (3.65-5.03) 02/17/21 06:53 Hgb 10.3 gm/dl (10.1-14.3) 02/17/21 06:53 Hct 34.0 % (30.3-42.9) 02/17/21 06:53 MCV 78 fl (79-97) L 02/17/21 06:53 MCH 24 pg (28-32) L 02/17/21 06:53 MCHC 30 % (30-34) 02/17/21 06:53 RDW 18.9 % (13.2-15.2) H 02/17/21 06:53 Plt Count 309 K/mm3 (140-440) 02/17/21 06:53 Lymph % (Auto) 44.9 % (13.4-35.0) H 02/02/21 07:56 [place] % (Auto) 9.2 % (0.0-7.3) H 02/02/21 07:56 Eos % (Auto) 3.6 % (0.0-4.3) 02/02/21 07:56 Baso % (Auto) 0.3 % (0.0-1.8) 02/02/21 07:56 Lymph # (Auto) 1.4 K/mm3 (1.2-5.4) 02/02/21 07:56 [place] # (Auto) 0.3 K/mm3 (0.0-0.8) 02/02/21 07:56 Eos # (Auto) 0.1 K/mm3 (0.0-0.4) 02/02/21 07:56 Baso # (Auto) 0.0 K/mm3 (0.0-0.1) 02/02/21 07:56 Add Manual Diff Complete 01/19/21 05:11 Total Counted 100 01/19/21 05:11 Seg Neutrophils % 42.0 % (40.0-70.0) 02/02/21 07:56 Seg Neuts % (Manual) 88.0 % (40.0-70.0) H 01/19/21 05:11 Lymphocytes % (Manual) 10.0 % (13.4-35.0) L 01/19/21 05:11 Monocytes % (Manual) 2.0 % (0.0-7.3) 01/19/21 05:11 Nucleated RBC % Not Reportable 01/19/21 05:11 Seg Neutrophils # 1.3 K/mm3 (1.8-7.7) L 02/02/21 07:56 Seg Neutrophils # Man 12.5 K/mm3 (1.8-7.7) H 01/19/21 05:11 Band Neutrophils # 0.0 K/mm3 01/19/21 05:11 Lymphocytes # (Manual) 1.4 K/mm3 (1.2-5.4) 01/19/21 05:11 Abs React Lymphs (Man) 0.0 K/mm3 01/19/21 05:11 Monocytes # (Manual) 0.3 K/mm3 (0.0-0.8) 01/19/21 05:11 Eosinophils # (Manual) 0.0 K/mm3 (0.0-0.4) 01/19/21 05:11 Basophils # (Manual) 0.0 K/mm3 (0.0-0.1) 01/19/21 05:11 Metamyelocytes # 0.0 K/mm3 01/19/21 05:11 Myelocytes # 0.0 K/mm3 01/19/21 05:11 Promyelocytes # 0.0 K/mm3 01/19/21 05:11 Blast Cells # 0.0 K/mm3 01/19/21 05:11 WBC Morphology Not Reportable 01/19/21 05:11 Hypersegmented Neuts Not Reportable 01/19/21 05:11 Hyposegmented Neuts Not Reportable 01/19/21 05:11 Hypogranular Neuts Not Reportable 01/19/21 05:11 Smudge Cells Not Reportable 01/19/21 05:11 Toxic Granulation Not Reportable 01/19/21 05:11 Toxic Vacuolation Not Reportable 01/19/21 05:11 Dohle Bodies Not Reportable 01/19/21 05:11 Pelger-Huet Anomaly Not Reportable 01/19/21 05:11 Inder Rods Not Reportable 01/19/21 05:11 Platelet Estimate Consistent w auto 01/19/21 05:11 Clumped Platelets Not Reportable 01/19/21 05:11 Plt Clumps, EDTA Not Reportable 01/19/21 05:11 Large Platelets Not Reportable 01/19/21 05:11 Giant Platelets Not Reportable 01/19/21 05:11 Platelet Satelliting Not Reportable 01/19/21 05:11 Plt Morphology Comment Not Reportable 01/19/21 05:11 RBC Morphology Not Reportable 01/19/21 05:11 Dimorphic RBCs Not Reportable 01/19/21 05:11 Polychromasia Not Reportable 01/19/21 05:11 Hypochromasia 1+ 01/19/21 05:11 Poikilocytosis Not Reportable 01/19/21 05:11 Anisocytosis Not Reportable 01/19/21 05:11 Microcytosis Not Reportable 01/19/21 05:11 Macrocytosis Not Reportable 01/19/21 05:11 Spherocytes Not Reportable 01/19/21 05:11 Pappenheimer Bodies Not Reportable 01/19/21 05:11 Sickle Cells Not Reportable 01/19/21 05:11 Target Cells Not Reportable 01/19/21 05:11 Tear Drop Cells Not Reportable 01/19/21 05:11 Ovalocytes Not Reportable 01/19/21 05:11 Helmet Cells Not Reportable 01/19/21 05:11 [place] Bodies Not Reportable 01/19/21 05:11 [place] Rings Not Reportable 01/19/21 05:11 Giorgio Cells Not Reportable 01/19/21 05:11 Bite Cells Not Reportable 01/19/21 05:11 Crenated Cell Not Reportable 01/19/21 05:11 Elliptocytes Not Reportable 01/19/21 05:11 Acanthocytes (Spur) Not Reportable 01/19/21 05:11 Rouleaux Not Reportable 01/19/21 05:11 Hemoglobin C Crystals Not Reportable 01/19/21 05:11 Schistocytes Not Reportable 01/19/21 05:11 Malaria parasites Not Reportable 01/19/21 05:11 Chai Bodies Not Reportable 01/19/21 05:11 Hem Pathologist Commnt No 01/19/21 05:11 PT 13.6 Sec. (12.2-14.9) 02/04/21 14:52 INR 1.06 (0.87-1.13) 02/04/21 14:52 APTT 30.7 Sec. (24.2-36.6) 02/04/21 14:52 D-Dimer 1884.49 ng/mlDDU (0-234) H 01/28/21 08:46 ABG pH 7.309 pH Units (7.350-7.450) L 02/10/21 09:30 ABG pCO2 59.4 mm Hg 02/10/21 09:30 ABG pO2 71.2 mm Hg (80.0-90.0) L 02/10/21 09:30 ABG HCO3 29.1 mmol/L (20.0-26.0) H 02/10/21 09:30 ABG O2 Saturation 92.4 % (95.0-99.0) L 02/10/21 09:30 ABG O2 Content 14.2 (0.0-44) 02/10/21 09:30 ABG Base Excess 1.8 mmol/L (-2.0-3.0) 02/10/21 09:30 ABG Hemoglobin 11.2 gm/dl (12.0-16.0) L 02/10/21 09:30 ABG Carboxyhemoglobin 1.8 % (0.0-5.0) 02/10/21 09:30 ABG Methemoglobin 0.6 % (0.0-1.5) 02/10/21 09:30 Oxyhemoglobin 90.2 % (95.0-99.0) L 02/10/21 09:30 FiO2 100 % 02/10/21 09:30 Sodium 139 mmol/L (137-145) 02/17/21 06:53 Potassium 4.4 mmol/L (3.6-5.0) 02/17/21 06:53 Chloride 99.2 mmol/L (98-107) 02/17/21 06:53 Carbon Dioxide 31 mmol/L (22-30) H 02/17/21 06:53 Anion Gap 13 mmol/L 02/17/21 06:53 BUN 20 mg/dL (7-17) H 02/17/21 06:53 Creatinine 0.4 mg/dL (0.6-1.2) L 02/17/21 06:53 Estimated GFR > 60 ml/min 02/17/21 06:53 BUN/Creatinine Ratio 50 % 02/17/21 06:53 Glucose 238 mg/dL (65-100) H 02/17/21 06:53 POC Glucose 221 mg/dL (70-105) H 02/17/21 11:12 Lactic Acid 1.70 mmol/L (0.7-2.0) 01/17/21 16:41 Calcium 8.6 mg/dL (8.4-10.2) 02/17/21 06:53 Ferritin 797.7 ng/mL (10.0-200.0) H 01/28/21 08:46 Total Bilirubin 0.30 mg/dL (0.1-1.2) 01/21/21 11:29 AST 34 units/L (5-40) 01/21/21 11:29 ALT 38 units/L (7-56) 01/21/21 11:29 Alkaline Phosphatase 117 units/L (35-129) 01/21/21 11:29 Ammonia 43.0 umol/L (25-60) 02/04/21 14:52 Lactate Dehydrogenase 556 units/L (91-180) H 01/28/21 08:46 Troponin T < 0.010 ng/mL (0.00-0.029) 01/17/21 16:41 C-Reactive Protein 0.20 mg/dL (0.00-1.30) 01/28/21 08:46 NT-Pro-B Natriuret Pep 40.88 pg/mL (0-900) 01/17/21 16:41 Total Protein 7.3 g/dL (6.3-8.2) 01/21/21 11:29 Albumin 3.4 g/dL (3.9-5) L 01/21/21 11:29 Albumin/Globulin Ratio 0.9 % 01/21/21 11:29 Procalcitonin 0.39 ng/mL (<0.15) 01/17/21 17:46 Coronavirus (PCR) Negative (Negative) 02/11/21 09:10 Estrada/IV: Voiding Method External Female Catheter Active Medications - Current Medications Current Medications: Generic Name Dose Route Start Last Admin Trade Name Freq PRN Reason Stop Dose Admin Acetaminophen 650 mg 01/18/21 00:36 02/11/21 22:49 Acetaminophen 325 Mg Tab PO 650 mg Q4H PRN Administration Pain MILD(1-3)/Fever >100.5/PAN Albuterol/Ipratropium 1 ampul 02/01/21 14:00 02/17/21 07:30 Ipratropium/Albuterol Sulfate 3 Ml Ampul.Neb IH 1 ampul TIDRT PJ Administration Apixaban 2.5 mg 02/04/21 22:00 02/16/21 22:33 Apixaban 2.5 Mg Tab PO 2.5 mg Q12HR PJ Administration Protocol Aripiprazole 15 mg 01/31/21 13:00 02/16/21 11:22 Aripiprazole 15 Mg Tab PO 15 mg QDAY PJ Administration Ascorbic Acid 1,000 mg 02/04/21 10:00 02/16/21 22:32 Ascorbic Acid 500 Mg Tab PO 1,000 mg BID PJ Administration Cholecalciferol 5,000 unit 02/04/21 10:00 02/16/21 11:23 Cholecalciferol (Vit D3) 5,000 Unit Tab PO 5,000 unit DAILY PJ Administration Divalproex Sodium 500 mg 01/31/21 12:00 02/16/21 11:23 Divalproex Er 500 Mg Tab PO 500 mg QDAY PJ Administration Famotidine 20 mg 01/18/21 10:00 02/16/21 22:33 Famotidine 20 Mg Tab PO 20 mg BID PJ Administration Furosemide 40 mg 02/17/21 12:30 Furosemide 40 Mg/4 Ml Inj IV 02/17/21 15:00 ONCE@1230 NR Hydralazine HCl 10 mg 01/18/21 00:38 02/14/21 06:22 Hydralazine 20 Mg/1 Ml Inj IV 10 mg Q6H PRN Administration htn Hydromorphone HCl 0.5 mg 01/20/21 11:00 Hydromorphone 1 Mg/1 Ml Inj IV Q6H PRN Pain , Severe (7-10) Hydrophilic Ointment 1 applic 02/03/21 12:00 Petrolatum,White 30 Gm Oint TP PRN PRN Skin Irritation Insulin Glargine 25 units 02/11/21 22:00 02/16/21 22:33 Insulin Glargine 100 Units/Ml SUB-Q 25 units QHS PJ Administration Insulin Human Lispro 0 unit 02/01/21 11:30 02/16/21 22:35 Insulin Lispro 100 Unit/Ml SUB-Q 6 unit ACHS PJ Administration Protocol Methylprednisolone Sodium Succinate 40 mg 02/10/21 14:00 02/17/21 05:05 Methylprednisolone Sod Succinate 40 Mg/1 Ml Inj IV 40 mg Q8HR PJ Administration Metoprolol Tartrate 12.5 mg 02/01/21 12:00 02/16/21 22:33 Metoprolol Tartrate 25 Mg Tab PO 12.5 mg BID PJ Administration Mirtazapine 7.5 mg 01/21/21 22:00 02/16/21 22:32 Mirtazapine 15 Mg Tab PO 7.5 mg QHS PJ Administration Ondansetron HCl 4 mg 01/18/21 00:36 Ondansetron 4 Mg/2 Ml Inj IV Q8H PRN Nausea And Vomiting Oxymetazoline HCl 2 spray 02/03/21 12:00 02/03/21 13:17 Oxymetazoline 0.05% Nasal [place] NS 2 spray Q12H PRN Administration Congestion Paliperidone 6 mg 01/31/21 13:00 02/16/21 11:24 Paliperidone Er 3 Mg Tab PO 6 mg QDAY PJ Administration Sodium Chloride 10 ml 01/18/21 10:00 02/16/21 22:35 Sodium Chloride 0.9% 10 Ml Flush Syringe IV 10 ml BID PJ Administration Sodium Chloride 10 ml 01/18/21 00:36 Sodium Chloride 0.9% 10 Ml Flush Syringe IV PRN PRN LINE FLUSH Zinc Sulfate 220 mg 02/04/21 10:00 02/16/21 11:22 Zinc Sulfate 220 Mg Cap PO 220 mg QDAY PJ Administration Nutrition/Malnutrition Assess - Dietary Evaluation Nutrition/Malnutrition Findings: Nutrition Notes Start: 01/24/21 10:40 Freq: Status: Active Protocol: Document 02/13/21 11:12 VINAY (Rec: 02/13/21 11:16 VINAY [email or web address]) Co-Sign 02/13/21 11:12 JUAN ALBERTO Nutrition Notes Initial or Follow up Reassessment Current Diagnosis Respiratory Failure Other Pertinent Diagnosis pneu, COVID-19(-), AMS Current Diet Cardiac/Consistent CHO Labs/Tests No new labs Pertinent Medications Solumedrol vitamin C vitamin D3 Height 5 ft 4 in Weight 93.2 kg [place] Body Weight (kg) 54.54 BMI 35.2 Weight Status Obese Subjective/Other Information F/U for stable intakes. Per RN , pt consuming 100% meals and ONS. Percent of energy/protein needs met: 100%/100% (PO only) Burn Absent Trauma Absent GI Symptoms None Current % PO Good (75-100%) Minimum of two criteria No Energy Intake (non-severe) <75% Estimated Energy Requirement >7 days #1 Nutrition Diagnosis Inadequate oral intake As Evidenced by Signs and Symptoms pt consuming 100% meals and ONS Diagnosis Progress(for reassessment Improved documentation) Is patient on ventilator? No Is Patient Ambulatory and/or Out of Bed No REE-([facility]-confined to bed) 1812.660 Kcal/Kg value to use for calculation 15 Approximate Energy Requirements Using 1398 kcal/Kg Calculation Used for Recommendations Kcal/kg Additional Notes PRO needs: 59-74g (0.8-1g/kg AdBW 74 kg) Fluid needs: 1 mL/kcal or per MD Nutrition Intervention Change Diet Order: Continue current Add Supplement/Snack (indicate name/kcal D/C Glucerna /protein ) Goal #1 Meet at least 75% of energy and protein needs via PO and ONS intakes Anticipated Discharge Needs: Cardiac/Consistent CHO Follow-Up By: 02/18/21 Additional Comments F/U for stable intakes
[2021-02-17] MEDS: APIXABAN 2.5 MG TAB PO SCH ×2 (12:32→23:17)
[2021-02-17] MEDS: CHOLECALCIFEROL (VIT D3) 5,000 UNIT TAB PO SCH (12:45)
[2021-02-17] MEDS: ARIPiprazole 15 MG TAB PO SCH (13:38)
[2021-02-17] MEDS: PALIPERIDONE ER 3 MG TAB PO SCH (13:38)
[2021-02-17] MEDS: FAMOTIDINE 20 MG TAB PO SCH ×2 (13:45→23:17)
[2021-02-17] MEDS: ZINC SULFATE 220 MG CAP PO SCH (13:45)
[2021-02-17] MEDS: DIVALPROEX ER 500 MG TAB PO SCH (13:45)
[2021-02-17] MEDS: METOPROLOL TARTRATE 25 MG TAB PO SCH ×2 (14:00→23:17)
[2021-02-17] MEDS: ASCORBIC ACID 500 MG TAB PO SCH ×2 (14:25→23:16)
[2021-02-17] MEDS ORDERED: ALBUTEROL 8.5 GM MDI INHALATION IH PRN (19:51)
[2021-02-17] MEDS: MIRTAZAPINE 15 MG TAB PO SCH (23:16)
[2021-02-17] MEDS: INSULIN GLARGINE 100 UNITS/ML SUB-Q SCH (23:18)
[2021-02-18] MEDS: INSULIN LISPRO 100 UNIT/ML SUB-Q SCH ×4 (00:22→16:28)
[2021-02-18] MEDS: methylPREDNISolone Sod Succinate 40 MG/1 ML INJ IV SCH ×3 (05:43→22:34)
--- NOTE | 2021-02-18 09:04 | Progress Note ---
Assessment and Plan 55 y/o female admitted with acute respiratory failure secondary to pneumonia, positive for Sars CoV2 02/18/21: Lasix 40mg IV x1 today. Continue to wean FiO2 for sats >88%. Suggest asking CM if patient would be a good LTACH candidate. Continue steroids for now. Will continue to follow. 02/17/21: Lasix again today. Will start to wean steroids once on lower liter flow of oxygen. Not concerned about elevated bicarb on chemistry and does not need diamox therapy at this time. Will continue to follow. 02/16/21: Lasix again today. Sats improving and oxygen requirement is coming down. Continue steroids. Last chemistry was several days ago. Will check again in am. may need BID lasix. 02/15/21: Lasix today. Continue current dose of steroids. Prone if possible. 02/14/21: lasix again today. Prone if possible. Continue steroids. Guarded Prognosis 02/13/21: ordered more lasix for today. Monitor strict I/O. Prone if patient will allow. Continue steroids. 02/12/18: continue lasix therapy daily. Prone if possible. Guarded prongosis. continue steroids 02/11/21: IMS has ordered lasix daily for 3 days, will continue to monitor. May need to give an additional dose later tonight. Long discussion at bedside this am about he importance of wearing bipap at night and what that means to her overall health. Will discuss with family too. Overall prognosis is very guarded. Will do our best to not intubate this patient given her morbid obesity as this would increase her mortality rate tremendously. Please continue to document refusal of therapy when appropriate. 02/10/21: Lasix today, 40 IV. Will attempt precedex to see if this will help with mental state and cooperation in care. Will also restart steroids but use solumedrol 40q8 dosing. May need to consider adding back the Haldol PRN as well. Guarded prognosis. Will attempt our best to not intubate this patient as her mortality would be extremely high if intubated given her morbid obesity. 02/02/21: Lasix again today. Patient refuses to prone. Guarded prognosis. 02/01/21: Will give another 40 of lasix today. Will speak with RT about being more aggressive with weaning of oxygen. Prone if possible. 01/31/21: Increased lasix to 40 today. Prone if possible. 01/30/21: Lasix 20mg IV today. Continue Antipsychotic therapy management. Prone as tolerated if patient willing. 01/29/21: Will give lasix again today. Will change Haldol to IM since patient is refusing PO meds. 01/28/21: Will give lasix again today. Continue all other therapies. Prone if patient will and tolerate. STeroids. Guarded prognosis. 01/20/21: Gave Haldol 5 and patient has calmed down and become more appropriate, allowing us to place bipap back on. COntinue steroids and remdesivir therapy. Doubt patient will be able to prone successfully. Will try lasix today again to see if this helps. Very very guarded prognosis. 01/19/21: Continue decadron, suggest increase given patient body habitus to BID. ID consult for Remdesivir therapy and to see if she is a candidate for Actemra. Prone as tolerated during the day and sleep prone at night. Will give lasix again today. Guarded prognosis. 1. Prone 2. Lasix 3. Agree with steroids 4. Follow up COVID testing Guarded prognosis Subjective Date of service: 02/18/21 Principal diagnosis: Covid-19 Interval history: No acute events overnight. Oxygen requirement not documented yet by RT. Objective Vital Signs - 12hr 02/17/21 02/17/21 02/17/21 21:23 22:00 23:17 Temperature 98.1 F Pulse Rate 87 89 89 Respiratory 18 18 Rate Blood Pressure 123/61 123/69 O2 Sat by Pulse 93 98 Oximetry 02/18/21 05:16 Temperature 98.6 F Pulse Rate 96 H Respiratory 18 Rate Blood Pressure 138/82 O2 Sat by Pulse 92 Oximetry Constitutional: no acute distress, alert Eyes: non-icteric ENT: oropharynx moist Neck: supple, other (large in circumference) Effort: normal Ascultation: Bilateral: clear, diminished breath sounds Cardiovascular: other (tachy, RR; no mrg) Gastrointestinal: normoactive bowel sounds, soft, non-tender, non-distended Integumentary: normal Extremities: no cyanosis, no edema, pink and warm Neurologic: normal mental status, non-focal exam, pupils equal and round Psychiatric: mood appropriate, affect normal CBC and BMP: 02/17/21 06:53 05/24/21 06:53 ABG, PT/INR, D-dimer: ABG ABG pH 7.309 pH Units (7.350-7.450) L 02/10/21 09:30 ABG pCO2 59.4 mm Hg 02/10/21 09:30 ABG pO2 71.2 mm Hg (80.0-90.0) L 02/10/21 09:30 ABG O2 Saturation 92.4 % (95.0-99.0) L 02/10/21 09:30 PT/INR, D-dimer PT 13.6 Sec. (12.2-14.9) 02/04/21 14:52 INR 1.06 (0.87-1.13) 02/04/21 14:52 D-Dimer 1884.49 ng/mlDDU (0-234) H 01/28/21 08:46 Abnormal lab findings: Abnormal Labs 01/17/21 01/17/21 01/17/21 09:25 16:41 16:41 WBC RBC 5.23 H Hgb MCV 76 L MCH 24 L RDW Plt Count Lymph % (Auto) 9.4 L Delta % (Auto) Lymph # (Auto) 0.8 L Seg Neutrophils % 85.4 H Seg Neuts % (Manual) Lymphocytes % (Manual) Seg Neutrophils # Seg Neutrophils # Man D-Dimer ABG pH ABG pO2 ABG HCO3 ABG O2 Saturation ABG Base Excess ABG Hemoglobin Oxyhemoglobin Sodium 128 L Chloride 90.8 L Carbon Dioxide BUN Creatinine Glucose 372 H POC Glucose Calcium Ferritin AST 98 H Lactate Dehydrogenase C-Reactive Protein Total Protein Albumin 3.2 L Coronavirus (PCR) Positive A 01/17/21 01/17/21 01/17/21 17:46 17:46 17:46 WBC RBC Hgb MCV MCH RDW Plt Count Lymph % (Auto) Delta % (Auto) Lymph # (Auto) Seg Neutrophils % Seg Neuts % (Manual) Lymphocytes % (Manual) Seg Neutrophils # Seg Neutrophils # Man D-Dimer 1058.54 H ABG pH ABG pO2 ABG HCO3 ABG O2 Saturation ABG Base Excess ABG Hemoglobin Oxyhemoglobin Sodium Chloride Carbon Dioxide BUN Creatinine Glucose 369 H POC Glucose Calcium Ferritin 668.4 H AST Lactate Dehydrogenase 519 H C-Reactive Protein 19.20 H Total Protein Albumin Coronavirus (PCR) 01/18/21 01/18/21 01/19/21 09:01 17:18 05:11 WBC 14.2 H RBC Hgb MCV 74 L MCH 23 L RDW Plt Count Lymph % (Auto) Delta % (Auto) Lymph # (Auto) Seg Neutrophils % Seg Neuts % (Manual) 88.0 H Lymphocytes % (Manual) 10.0 L Seg Neutrophils # Seg Neutrophils # Man 12.5 H D-Dimer ABG pH 7.461 H ABG pO2 53.1 L ABG HCO3 ABG O2 Saturation 89.4 L ABG Base Excess ABG Hemoglobin Oxyhemoglobin 88.0 L Sodium 132 L Chloride 93.6 L Carbon Dioxide BUN 18 H Creatinine Glucose 367 H POC Glucose Calcium 7.8 L Ferritin AST Lactate Dehydrogenase C-Reactive Protein Total Protein Albumin Coronavirus (PCR) 01/19/21 01/19/21 01/19/21 05:11 11:06 14:43 WBC RBC Hgb MCV MCH RDW Plt Count Lymph % (Auto) Delta % (Auto) Lymph # (Auto) Seg Neutrophils % Seg Neuts % (Manual) Lymphocytes % (Manual) Seg Neutrophils # Seg Neutrophils # Man D-Dimer ABG pH ABG pO2 ABG HCO3 ABG O2 Saturation ABG Base Excess ABG Hemoglobin Oxyhemoglobin Sodium Chloride Carbon Dioxide BUN 18 H Creatinine Glucose 304 H 379 H POC Glucose 382 H Calcium 8.3 L Ferritin AST 92 H 96 H Lactate Dehydrogenase C-Reactive Protein Total Protein Albumin 3.0 L 3.0 L Coronavirus (PCR) 01/19/21 01/19/21 01/20/21 16:18 22:18 07:31 WBC RBC Hgb MCV MCH RDW Plt Count Lymph % (Auto) Delta % (Auto) Lymph # (Auto) Seg Neutrophils % Seg Neuts % (Manual) Lymphocytes % (Manual) Seg Neutrophils # Seg Neutrophils # Man D-Dimer ABG pH ABG pO2 ABG HCO3 ABG O2 Saturation ABG Base Excess ABG Hemoglobin Oxyhemoglobin Sodium Chloride Carbon Dioxide BUN Creatinine Glucose POC Glucose 374 H 341 H 344 H Calcium Ferritin AST Lactate Dehydrogenase C-Reactive Protein Total Protein Albumin Coronavirus (PCR) 01/20/21 01/20/21 01/20/21 07:33 12:14 13:54 WBC RBC Hgb MCV MCH RDW Plt Count Lymph % (Auto) Delta % (Auto) Lymph # (Auto) Seg Neutrophils % Seg Neuts % (Manual) Lymphocytes % (Manual) Seg Neutrophils # Seg Neutrophils # Man D-Dimer ABG pH ABG pO2 ABG HCO3 ABG O2 Saturation ABG Base Excess ABG Hemoglobin Oxyhemoglobin Sodium Chloride Carbon Dioxide BUN 32 H 31 H Creatinine Glucose 343 H 396 H POC Glucose 365 H Calcium Ferritin AST 57 H 54 H Lactate Dehydrogenase C-Reactive Protein Total Protein 8.3 H Albumin 2.7 L 3.1 L Coronavirus (PCR) 01/20/21 01/20/21 01/21/21 18:28 21:25 04:45 WBC RBC Hgb MCV MCH RDW Plt Count Lymph % (Auto) Delta % (Auto) Lymph # (Auto) Seg Neutrophils % Seg Neuts % (Manual) Lymphocytes % (Manual) Seg Neutrophils # Seg Neutrophils # Man D-Dimer ABG pH ABG pO2 ABG HCO3 ABG O2 Saturation ABG Base Excess ABG Hemoglobin Oxyhemoglobin Sodium Chloride Carbon Dioxide 31 H BUN 41 H Creatinine Glucose 377 H POC Glucose 403 H 340 H Calcium Ferritin AST Lactate Dehydrogenase C-Reactive Protein Total Protein 8.3 H Albumin 3.0 L Coronavirus (PCR) 01/21/21 01/21/21 01/21/21 04:45 04:45 04:45 WBC RBC Hgb MCV MCH RDW Plt Count Lymph % (Auto) Delta % (Auto) Lymph # (Auto) Seg Neutrophils % Seg Neuts % (Manual) Lymphocytes % (Manual) Seg Neutrophils # Seg Neutrophils # Man D-Dimer > 79541 H ABG pH ABG pO2 ABG HCO3 ABG O2 Saturation ABG Base Excess ABG Hemoglobin Oxyhemoglobin Sodium Chloride Carbon Dioxide BUN Creatinine Glucose POC Glucose Calcium Ferritin 1688.0 H AST Lactate Dehydrogenase 649 H C-Reactive Protein 17.00 H Total Protein Albumin Coronavirus (PCR) 01/21/21 01/21/21 01/21/21 09:45 11:29 12:09 WBC RBC Hgb MCV MCH RDW Plt Count Lymph % (Auto) Delta % (Auto) Lymph # (Auto) Seg Neutrophils % Seg Neuts % (Manual) Lymphocytes % (Manual) Seg Neutrophils # Seg Neutrophils # Man D-Dimer ABG pH ABG pO2 ABG HCO3 ABG O2 Saturation ABG Base Excess ABG Hemoglobin Oxyhemoglobin Sodium 151 H Chloride Carbon Dioxide BUN 40 H Creatinine Glucose 412 H POC Glucose 401 H 372 H Calcium Ferritin AST Lactate Dehydrogenase C-Reactive Protein Total Protein Albumin 3.4 L Coronavirus (PCR) 01/21/21 01/21/21 01/22/21 18:26 21:09 02:00 WBC RBC Hgb MCV MCH RDW Plt Count Lymph % (Auto) Delta % (Auto) Lymph # (Auto) Seg Neutrophils % Seg Neuts % (Manual) Lymphocytes % (Manual) Seg Neutrophils # Seg Neutrophils # Man D-Dimer ABG pH ABG pO2 ABG HCO3 ABG O2 Saturation ABG Base Excess ABG Hemoglobin Oxyhemoglobin Sodium Chloride Carbon Dioxide BUN Creatinine Glucose POC Glucose 376 H 322 H 231 H Calcium Ferritin AST Lactate Dehydrogenase C-Reactive Protein Total Protein Albumin Coronavirus (PCR) 01/22/21 01/22/21 01/22/21 05:24 08:25 08:25 WBC RBC 5.44 H Hgb MCV 75 L MCH 23 L RDW 15.5 H Plt Count Lymph % (Auto) Delta % (Auto) Lymph # (Auto) Seg Neutrophils % Seg Neuts % (Manual) Lymphocytes % (Manual) Seg Neutrophils # Seg Neutrophils # Man D-Dimer ABG pH ABG pO2 ABG HCO3 ABG O2 Saturation ABG Base Excess ABG Hemoglobin Oxyhemoglobin Sodium 155 H Chloride 112.4 H Carbon Dioxide BUN 33 H Creatinine Glucose 274 H POC Glucose 275 H Calcium Ferritin AST Lactate Dehydrogenase C-Reactive Protein Total Protein Albumin Coronavirus (PCR) 01/22/21 01/22/21 01/22/21 11:53 16:03 21:41 WBC RBC Hgb MCV MCH RDW Plt Count Lymph % (Auto) Delta % (Auto) Lymph # (Auto) Seg Neutrophils % Seg Neuts % (Manual) Lymphocytes % (Manual) Seg Neutrophils # Seg Neutrophils # Man D-Dimer ABG pH ABG pO2 ABG HCO3 ABG O2 Saturation ABG Base Excess ABG Hemoglobin Oxyhemoglobin Sodium Chloride Carbon Dioxide BUN Creatinine Glucose POC Glucose 265 H 293 H 279 H Calcium Ferritin AST Lactate Dehydrogenase C-Reactive Protein Total Protein Albumin Coronavirus (PCR) 01/23/21 01/23/21 01/23/21 02:03 05:46 05:59 WBC RBC Hgb MCV MCH RDW Plt Count Lymph % (Auto) Delta % (Auto) Lymph # (Auto) Seg Neutrophils % Seg Neuts % (Manual) Lymphocytes % (Manual) Seg Neutrophils # Seg Neutrophils # Man D-Dimer ABG pH ABG pO2 ABG HCO3 ABG O2 Saturation ABG Base Excess ABG Hemoglobin Oxyhemoglobin Sodium Chloride Carbon Dioxide BUN Creatinine Glucose POC Glucose 268 H 303 H Calcium Ferritin 1116.0 H AST Lactate Dehydrogenase C-Reactive Protein Total Protein Albumin Coronavirus (PCR) 01/23/21 01/23/21 01/23/21 05:59 07:42 09:11 WBC RBC Hgb MCV MCH RDW Plt Count Lymph % (Auto) Delta % (Auto) Lymph # (Auto) Seg Neutrophils % Seg Neuts % (Manual) Lymphocytes % (Manual) Seg Neutrophils # Seg Neutrophils # Man D-Dimer ABG pH ABG pO2 ABG HCO3 ABG O2 Saturation ABG Base Excess ABG Hemoglobin Oxyhemoglobin Sodium Chloride Carbon Dioxide BUN Creatinine Glucose POC Glucose 291 H 285 H Calcium Ferritin AST Lactate Dehydrogenase 680 H C-Reactive Protein 5.80 H Total Protein Albumin Coronavirus (PCR) 01/23/21 01/23/21 01/23/21 14:06 17:05 17:59 WBC RBC Hgb MCV MCH RDW Plt Count Lymph % (Auto) Delta % (Auto) Lymph # (Auto) Seg Neutrophils % Seg Neuts % (Manual) Lymphocytes % (Manual) Seg Neutrophils # Seg Neutrophils # Man D-Dimer ABG pH ABG pO2 ABG HCO3 ABG O2 Saturation ABG Base Excess ABG Hemoglobin Oxyhemoglobin Sodium Chloride Carbon Dioxide BUN Creatinine Glucose POC Glucose 228 H 300 H 278 H Calcium Ferritin AST Lactate Dehydrogenase C-Reactive Protein Total Protein Albumin Coronavirus (PCR) 01/23/21 01/24/21 01/24/21 21:43 02:14 05:15 WBC RBC Hgb MCV MCH RDW Plt Count Lymph % (Auto) Delta % (Auto) Lymph # (Auto) Seg Neutrophils % Seg Neuts % (Manual) Lymphocytes % (Manual) Seg Neutrophils # Seg Neutrophils # Man D-Dimer ABG pH ABG pO2 ABG HCO3 ABG O2 Saturation ABG Base Excess ABG Hemoglobin Oxyhemoglobin Sodium Chloride Carbon Dioxide BUN Creatinine Glucose POC Glucose 223 H 427 H 392 H Calcium Ferritin AST Lactate Dehydrogenase C-Reactive Protein Total Protein Albumin Coronavirus (PCR) 01/24/21 01/24/21 01/24/21 07:03 07:03 09:10 WBC RBC 5.49 H Hgb MCV 75 L MCH 23 L RDW Plt Count Lymph % (Auto) 7.0 L Delta % (Auto) Lymph # (Auto) 0.5 L Seg Neutrophils % 86.1 H Seg Neuts % (Manual) Lymphocytes % (Manual) Seg Neutrophils # Seg Neutrophils # Man D-Dimer ABG pH ABG pO2 ABG HCO3 ABG O2 Saturation ABG Base Excess ABG Hemoglobin Oxyhemoglobin Sodium 149 H Chloride 111.4 H Carbon Dioxide BUN 24 H Creatinine Glucose 339 H POC Glucose 284 H Calcium Ferritin AST Lactate Dehydrogenase C-Reactive Protein Total Protein Albumin Coronavirus (PCR) 01/24/21 01/24/21 01/24/21 13:47 18:30 21:58 WBC RBC Hgb MCV MCH RDW Plt Count Lymph % (Auto) Delta % (Auto) Lymph # (Auto) Seg Neutrophils % Seg Neuts % (Manual) Lymphocytes % (Manual) Seg Neutrophils # Seg Neutrophils # Man D-Dimer ABG pH ABG pO2 ABG HCO3 ABG O2 Saturation ABG Base Excess ABG Hemoglobin Oxyhemoglobin Sodium Chloride Carbon Dioxide BUN Creatinine Glucose POC Glucose 317 H 180 H 262 H Calcium Ferritin AST Lactate Dehydrogenase C-Reactive Protein Total Protein Albumin Coronavirus (PCR) 01/25/21 01/25/21 01/25/21 01:22 05:35 08:36 WBC RBC Hgb MCV MCH RDW Plt Count Lymph % (Auto) Delta % (Auto) Lymph # (Auto) Seg Neutrophils % Seg Neuts % (Manual) Lymphocytes % (Manual) Seg Neutrophils # Seg Neutrophils # Man D-Dimer ABG pH ABG pO2 ABG HCO3 ABG O2 Saturation ABG Base Excess ABG Hemoglobin Oxyhemoglobin Sodium Chloride Carbon Dioxide BUN Creatinine Glucose POC Glucose 280 H 243 H 216 H Calcium Ferritin AST Lactate Dehydrogenase C-Reactive Protein Total Protein Albumin Coronavirus (PCR) 01/25/21 01/25/21 01/25/21 15:14 15:14 15:14 WBC RBC Hgb MCV MCH RDW Plt Count Lymph % (Auto) Delta % (Auto) Lymph # (Auto) Seg Neutrophils % Seg Neuts % (Manual) Lymphocytes % (Manual) Seg Neutrophils # Seg Neutrophils # Man D-Dimer 6312.54 H ABG pH ABG pO2 ABG HCO3 ABG O2 Saturation ABG Base Excess ABG Hemoglobin Oxyhemoglobin Sodium 146 H Chloride 108.1 H Carbon Dioxide BUN 19 H Creatinine Glucose 287 H POC Glucose Calcium 8.3 L Ferritin 869.5 H AST Lactate Dehydrogenase 685 H C-Reactive Protein Total Protein Albumin Coronavirus (PCR) 01/25/21 01/25/21 01/26/21 16:06 21:18 01:47 WBC RBC Hgb MCV MCH RDW Plt Count Lymph % (Auto) Delta % (Auto) Lymph # (Auto) Seg Neutrophils % Seg Neuts % (Manual) Lymphocytes % (Manual) Seg Neutrophils # Seg Neutrophils # Man D-Dimer ABG pH ABG pO2 ABG HCO3 ABG O2 Saturation ABG Base Excess ABG Hemoglobin Oxyhemoglobin Sodium Chloride Carbon Dioxide BUN Creatinine Glucose POC Glucose 267 H 197 H 255 H Calcium Ferritin AST Lactate Dehydrogenase C-Reactive Protein Total Protein Albumin Coronavirus (PCR) 01/26/21 01/26/21 01/26/21 05:23 05:23 05:23 WBC RBC Hgb MCV MCH RDW Plt Count Lymph % (Auto) Delta % (Auto) Lymph # (Auto) Seg Neutrophils % Seg Neuts % (Manual) Lymphocytes % (Manual) Seg Neutrophils # Seg Neutrophils # Man D-Dimer 5809.58 H ABG pH ABG pO2 ABG HCO3 ABG O2 Saturation ABG Base Excess ABG Hemoglobin Oxyhemoglobin Sodium 149 H Chloride 109.3 H Carbon Dioxide BUN 24 H Creatinine Glucose 362 H POC Glucose Calcium Ferritin 877.1 H AST Lactate Dehydrogenase 655 H C-Reactive Protein Total Protein Albumin Coronavirus (PCR) 01/26/21 01/26/21 01/26/21 05:23 06:06 09:28 WBC RBC 5.49 H Hgb MCV 77 L MCH 23 L RDW Plt Count Lymph % (Auto) Delta % (Auto) Lymph # (Auto) 0.8 L Seg Neutrophils % 78.9 H Seg Neuts % (Manual) Lymphocytes % (Manual) Seg Neutrophils # Seg Neutrophils # Man D-Dimer ABG pH ABG pO2 ABG HCO3 ABG O2 Saturation ABG Base Excess ABG Hemoglobin Oxyhemoglobin Sodium Chloride Carbon Dioxide BUN Creatinine Glucose POC Glucose 387 H 308 H Calcium Ferritin AST Lactate Dehydrogenase C-Reactive Protein Total Protein Albumin Coronavirus (PCR) 01/26/21 01/26/21 01/27/21 15:56 21:28 02:51 WBC RBC Hgb MCV MCH RDW Plt Count Lymph % (Auto) Delta % (Auto) Lymph # (Auto) Seg Neutrophils % Seg Neuts % (Manual) Lymphocytes % (Manual) Seg Neutrophils # Seg Neutrophils # Man D-Dimer ABG pH ABG pO2 ABG HCO3 ABG O2 Saturation ABG Base Excess ABG Hemoglobin Oxyhemoglobin Sodium Chloride Carbon Dioxide BUN Creatinine Glucose POC Glucose 172 H 316 H 267 H Calcium Ferritin AST Lactate Dehydrogenase C-Reactive Protein Total Protein Albumin Coronavirus (PCR) 01/27/21 01/27/21 01/27/21 04:22 04:22 04:22 WBC RBC Hgb MCV MCH RDW Plt Count Lymph % (Auto) Delta % (Auto) Lymph # (Auto) Seg Neutrophils % Seg Neuts % (Manual) Lymphocytes % (Manual) Seg Neutrophils # Seg Neutrophils # Man D-Dimer 4046.06 H ABG pH ABG pO2 ABG HCO3 ABG O2 Saturation ABG Base Excess ABG Hemoglobin Oxyhemoglobin Sodium Chloride 107.7 H Carbon Dioxide BUN 30 H Creatinine Glucose 281 H POC Glucose Calcium Ferritin 812.2 H AST Lactate Dehydrogenase 570 H C-Reactive Protein Total Protein Albumin Coronavirus (PCR) 01/27/21 01/27/21 01/27/21 04:22 05:55 12:00 WBC RBC 5.15 H Hgb MCV 76 L MCH 23 L RDW 15.5 H Plt Count Lymph % (Auto) 12.7 L Delta % (Auto) Lymph # (Auto) 0.9 L Seg Neutrophils % 81.3 H Seg Neuts % (Manual) Lymphocytes % (Manual) Seg Neutrophils # Seg Neutrophils # Man D-Dimer ABG pH ABG pO2 ABG HCO3 ABG O2 Saturation ABG Base Excess ABG Hemoglobin Oxyhemoglobin Sodium Chloride Carbon Dioxide BUN Creatinine Glucose POC Glucose 275 H 121 H Calcium Ferritin AST Lactate Dehydrogenase C-Reactive Protein Total Protein Albumin Coronavirus (PCR) 01/27/21 01/27/21 01/28/21 17:32 21:23 02:08 WBC RBC Hgb MCV MCH RDW Plt Count Lymph % (Auto) Delta % (Auto) Lymph # (Auto) Seg Neutrophils % Seg Neuts % (Manual) Lymphocytes % (Manual) Seg Neutrophils # Seg Neutrophils # Man D-Dimer ABG pH ABG pO2 ABG HCO3 ABG O2 Saturation ABG Base Excess ABG Hemoglobin Oxyhemoglobin Sodium Chloride Carbon Dioxide BUN Creatinine Glucose POC Glucose 195 H 179 H 210 H Calcium Ferritin AST Lactate Dehydrogenase C-Reactive Protein Total Protein Albumin Coronavirus (PCR) 01/28/21 01/28/21 01/28/21 05:09 08:44 08:46 WBC RBC Hgb MCV MCH RDW Plt Count Lymph % (Auto) Delta % (Auto) Lymph # (Auto) Seg Neutrophils % Seg Neuts % (Manual) Lymphocytes % (Manual) Seg Neutrophils # Seg Neutrophils # Man D-Dimer 1884.49 H ABG pH ABG pO2 ABG HCO3 ABG O2 Saturation ABG Base Excess ABG Hemoglobin Oxyhemoglobin Sodium Chloride Carbon Dioxide BUN Creatinine Glucose POC Glucose 202 H 191 H Calcium Ferritin AST Lactate Dehydrogenase C-Reactive Protein Total Protein Albumin Coronavirus (PCR) 01/28/21 01/28/21 01/28/21 08:46 08:46 12:18 WBC RBC Hgb MCV MCH RDW Plt Count Lymph % (Auto) Delta % (Auto) Lymph # (Auto) Seg Neutrophils % Seg Neuts % (Manual) Lymphocytes % (Manual) Seg Neutrophils # Seg Neutrophils # Man D-Dimer ABG pH ABG pO2 ABG HCO3 ABG O2 Saturation ABG Base Excess ABG Hemoglobin Oxyhemoglobin Sodium Chloride Carbon Dioxide BUN Creatinine Glucose POC Glucose 221 H Calcium Ferritin 797.7 H AST Lactate Dehydrogenase 556 H C-Reactive Protein Total Protein Albumin Coronavirus (PCR) 01/28/21 01/28/21 01/29/21 18:21 21:45 01:48 WBC RBC Hgb MCV MCH RDW Plt Count Lymph % (Auto) Delta % (Auto) Lymph # (Auto) Seg Neutrophils % Seg Neuts % (Manual) Lymphocytes % (Manual) Seg Neutrophils # Seg Neutrophils # Man D-Dimer ABG pH ABG pO2 ABG HCO3 ABG O2 Saturation ABG Base Excess ABG Hemoglobin Oxyhemoglobin Sodium Chloride Carbon Dioxide BUN Creatinine Glucose POC Glucose 214 H 148 H 248 H Calcium Ferritin AST Lactate Dehydrogenase C-Reactive Protein Total Protein Albumin Coronavirus (PCR) 01/29/21 01/29/21 01/29/21 05:17 10:17 11:39 WBC RBC Hgb MCV MCH RDW Plt Count Lymph % (Auto) Delta % (Auto) Lymph # (Auto) Seg Neutrophils % Seg Neuts % (Manual) Lymphocytes % (Manual) Seg Neutrophils # Seg Neutrophils # Man D-Dimer ABG pH ABG pO2 ABG HCO3 ABG O2 Saturation ABG Base Excess ABG Hemoglobin Oxyhemoglobin Sodium Chloride Carbon Dioxide BUN Creatinine Glucose POC Glucose 256 H 193 H 177 H Calcium Ferritin AST Lactate Dehydrogenase C-Reactive Protein Total Protein Albumin Coronavirus (PCR) 01/29/21 01/29/21 01/30/21 18:06 20:24 06:07 WBC RBC Hgb MCV MCH RDW Plt Count Lymph % (Auto) Delta % (Auto) Lymph # (Auto) Seg Neutrophils % Seg Neuts % (Manual) Lymphocytes % (Manual) Seg Neutrophils # Seg Neutrophils # Man D-Dimer ABG pH ABG pO2 ABG HCO3 ABG O2 Saturation ABG Base Excess ABG Hemoglobin Oxyhemoglobin Sodium Chloride Carbon Dioxide BUN Creatinine Glucose POC Glucose 107 H 114 H 114 H Calcium Ferritin AST Lactate Dehydrogenase C-Reactive Protein Total Protein Albumin Coronavirus (PCR) 01/30/21 01/30/21 01/30/21 12:08 16:11 21:19 WBC RBC Hgb MCV MCH RDW Plt Count Lymph % (Auto) Delta % (Auto) Lymph # (Auto) Seg Neutrophils % Seg Neuts % (Manual) Lymphocytes % (Manual) Seg Neutrophils # Seg Neutrophils # Man D-Dimer ABG pH ABG pO2 ABG HCO3 ABG O2 Saturation ABG Base Excess ABG Hemoglobin Oxyhemoglobin Sodium Chloride Carbon Dioxide BUN Creatinine Glucose POC Glucose 178 H 142 H 244 H Calcium Ferritin AST Lactate Dehydrogenase C-Reactive Protein Total Protein Albumin Coronavirus (PCR) 01/31/21 01/31/21 01/31/21 05:30 06:42 07:50 WBC RBC Hgb MCV MCH RDW Plt Count Lymph % (Auto) Delta % (Auto) Lymph # (Auto) Seg Neutrophils % Seg Neuts % (Manual) Lymphocytes % (Manual) Seg Neutrophils # Seg Neutrophils # Man D-Dimer ABG pH ABG pO2 ABG HCO3 ABG O2 Saturation ABG Base Excess ABG Hemoglobin Oxyhemoglobin Sodium Chloride Carbon Dioxide BUN 20 H Creatinine Glucose 160 H POC Glucose 164 H 152 H Calcium 8.0 L Ferritin AST Lactate Dehydrogenase C-Reactive Protein Total Protein Albumin Coronavirus (PCR) 01/31/21 01/31/21 01/31/21 11:40 16:37 21:01 WBC RBC Hgb MCV MCH RDW Plt Count Lymph % (Auto) Delta % (Auto) Lymph # (Auto) Seg Neutrophils % Seg Neuts % (Manual) Lymphocytes % (Manual) Seg Neutrophils # Seg Neutrophils # Man D-Dimer ABG pH ABG pO2 ABG HCO3 ABG O2 Saturation ABG Base Excess ABG Hemoglobin Oxyhemoglobin Sodium Chloride Carbon Dioxide BUN Creatinine Glucose POC Glucose 129 H 141 H 125 H Calcium Ferritin AST Lactate Dehydrogenase C-Reactive Protein Total Protein Albumin Coronavirus (PCR) 02/01/21 02/01/21 02/01/21 06:26 11:15 16:11 WBC RBC Hgb MCV MCH RDW Plt Count Lymph % (Auto) Delta % (Auto) Lymph # (Auto) Seg Neutrophils % Seg Neuts % (Manual) Lymphocytes % (Manual) Seg Neutrophils # Seg Neutrophils # Man D-Dimer ABG pH ABG pO2 ABG HCO3 ABG O2 Saturation ABG Base Excess ABG Hemoglobin Oxyhemoglobin Sodium Chloride Carbon Dioxide BUN Creatinine Glucose POC Glucose 136 H 260 H 240 H Calcium Ferritin AST Lactate Dehydrogenase C-Reactive Protein Total Protein Albumin Coronavirus (PCR) 02/01/21 02/02/21 02/02/21 22:32 07:15 07:56 WBC 3.1 L RBC Hgb MCV 75 L MCH 23 L RDW Plt Count Lymph % (Auto) 44.9 H Delta % (Auto) 9.2 H Lymph # (Auto) Seg Neutrophils % Seg Neuts % (Manual) Lymphocytes % (Manual) Seg Neutrophils # 1.3 L Seg Neutrophils # Man D-Dimer ABG pH ABG pO2 ABG HCO3 ABG O2 Saturation ABG Base Excess ABG Hemoglobin Oxyhemoglobin Sodium Chloride Carbon Dioxide BUN Creatinine Glucose POC Glucose 298 H 164 H Calcium Ferritin AST Lactate Dehydrogenase C-Reactive Protein Total Protein Albumin Coronavirus (PCR) 02/02/21 02/02/21 02/02/21 07:56 11:35 16:07 WBC RBC Hgb MCV MCH RDW Plt Count Lymph % (Auto) Delta % (Auto) Lymph # (Auto) Seg Neutrophils % Seg Neuts % (Manual) Lymphocytes % (Manual) Seg Neutrophils # Seg Neutrophils # Man D-Dimer ABG pH ABG pO2 ABG HCO3 ABG O2 Saturation ABG Base Excess ABG Hemoglobin Oxyhemoglobin Sodium Chloride Carbon Dioxide 31 H BUN Creatinine 0.4 L Glucose 159 H POC Glucose 297 H 252 H Calcium 8.2 L Ferritin AST Lactate Dehydrogenase C-Reactive Protein Total Protein Albumin Coronavirus (PCR) 02/02/21 02/03/21 02/03/21 22:33 17:04 22:17 WBC RBC Hgb MCV MCH RDW Plt Count Lymph % (Auto) Delta % (Auto) Lymph # (Auto) Seg Neutrophils % Seg Neuts % (Manual) Lymphocytes % (Manual) Seg Neutrophils # Seg Neutrophils # Man D-Dimer ABG pH ABG pO2 ABG HCO3 ABG O2 Saturation ABG Base Excess ABG Hemoglobin Oxyhemoglobin Sodium Chloride Carbon Dioxide BUN Creatinine Glucose POC Glucose 257 H 247 H 278 H Calcium Ferritin AST Lactate Dehydrogenase C-Reactive Protein Total Protein Albumin Coronavirus (PCR) 02/04/21 02/04/21 02/04/21 05:41 07:55 11:56 WBC RBC Hgb MCV MCH RDW Plt Count Lymph % (Auto) Delta % (Auto) Lymph # (Auto) Seg Neutrophils % Seg Neuts % (Manual) Lymphocytes % (Manual) Seg Neutrophils # Seg Neutrophils # Man D-Dimer ABG pH ABG pO2 ABG HCO3 ABG O2 Saturation ABG Base Excess ABG Hemoglobin Oxyhemoglobin Sodium Chloride Carbon Dioxide 31 H BUN 19 H Creatinine 0.5 L Glucose 184 H POC Glucose 182 H 227 H Calcium Ferritin AST Lactate Dehydrogenase C-Reactive Protein Total Protein Albumin Coronavirus (PCR) 02/04/21 02/04/21 02/04/21 12:45 14:52 16:45 WBC 4.0 L RBC Hgb MCV 77 L MCH 24 L RDW 15.5 H Plt Count Lymph % (Auto) Delta % (Auto) Lymph # (Auto) Seg Neutrophils % Seg Neuts % (Manual) Lymphocytes % (Manual) Seg Neutrophils # Seg Neutrophils # Man D-Dimer ABG pH ABG pO2 65.6 L ABG HCO3 30.8 H ABG O2 Saturation 94.0 L ABG Base Excess 5.5 H ABG Hemoglobin 10.3 L Oxyhemoglobin 92.3 L Sodium Chloride Carbon Dioxide BUN Creatinine Glucose POC Glucose 194 H Calcium Ferritin AST Lactate Dehydrogenase C-Reactive Protein Total Protein Albumin Coronavirus (PCR) 02/04/21 02/05/21 02/05/21 22:00 06:55 07:49 WBC RBC Hgb 10.0 L MCV MCH RDW Plt Count Lymph % (Auto) Delta % (Auto) Lymph # (Auto) Seg Neutrophils % Seg Neuts % (Manual) Lymphocytes % (Manual) Seg Neutrophils # Seg Neutrophils # Man D-Dimer ABG pH ABG pO2 ABG HCO3 ABG O2 Saturation ABG Base Excess ABG Hemoglobin Oxyhemoglobin Sodium Chloride Carbon Dioxide BUN Creatinine Glucose POC Glucose 281 H 204 H Calcium Ferritin AST Lactate Dehydrogenase C-Reactive Protein Total Protein Albumin Coronavirus (PCR) 02/05/21 02/05/21 02/05/21 11:23 16:13 16:22 WBC RBC Hgb 10.0 L MCV MCH RDW Plt Count Lymph % (Auto) Delta % (Auto) Lymph # (Auto) Seg Neutrophils % Seg Neuts % (Manual) Lymphocytes % (Manual) Seg Neutrophils # Seg Neutrophils # Man D-Dimer ABG pH ABG pO2 ABG HCO3 ABG O2 Saturation ABG Base Excess ABG Hemoglobin Oxyhemoglobin Sodium Chloride Carbon Dioxide BUN Creatinine Glucose POC Glucose 264 H 202 H Calcium Ferritin AST Lactate Dehydrogenase C-Reactive Protein Total Protein Albumin Coronavirus (PCR) 02/05/21 02/06/21 02/06/21 21:14 04:43 04:43 WBC 4.0 L RBC Hgb 10.0 L MCV 76 L MCH 23 L RDW 15.7 H Plt Count Lymph % (Auto) Delta % (Auto) Lymph # (Auto) Seg Neutrophils % Seg Neuts % (Manual) Lymphocytes % (Manual) Seg Neutrophils # Seg Neutrophils # Man D-Dimer ABG pH ABG pO2 ABG HCO3 ABG O2 Saturation ABG Base Excess ABG Hemoglobin Oxyhemoglobin Sodium Chloride Carbon Dioxide 32 H BUN Creatinine 0.4 L Glucose 163 H POC Glucose 180 H Calcium 8.3 L Ferritin AST Lactate Dehydrogenase C-Reactive Protein Total Protein Albumin Coronavirus (PCR) 02/06/21 02/06/21 02/06/21 08:01 11:44 16:11 WBC RBC Hgb MCV MCH RDW Plt Count Lymph % (Auto) Delta % (Auto) Lymph # (Auto) Seg Neutrophils % Seg Neuts % (Manual) Lymphocytes % (Manual) Seg Neutrophils # Seg Neutrophils # Man D-Dimer ABG pH ABG pO2 ABG HCO3 ABG O2 Saturation ABG Base Excess ABG Hemoglobin Oxyhemoglobin Sodium Chloride Carbon Dioxide BUN Creatinine Glucose POC Glucose 155 H 215 H 247 H Calcium Ferritin AST Lactate Dehydrogenase C-Reactive Protein Total Protein Albumin Coronavirus (PCR) 02/06/21 02/07/21 02/07/21 23:40 08:01 11:54 WBC RBC Hgb MCV MCH RDW Plt Count Lymph % (Auto) Delta % (Auto) Lymph # (Auto) Seg Neutrophils % Seg Neuts % (Manual) Lymphocytes % (Manual) Seg Neutrophils # Seg Neutrophils # Man D-Dimer ABG pH ABG pO2 ABG HCO3 ABG O2 Saturation ABG Base Excess ABG Hemoglobin Oxyhemoglobin Sodium Chloride Carbon Dioxide BUN Creatinine Glucose POC Glucose 267 H 233 H 227 H Calcium Ferritin AST Lactate Dehydrogenase C-Reactive Protein Total Protein Albumin Coronavirus (PCR) 02/07/21 02/07/21 02/07/21 15:48 20:58 20:58 WBC RBC Hgb MCV MCH RDW Plt Count Lymph % (Auto) Delta % (Auto) Lymph # (Auto) Seg Neutrophils % Seg Neuts % (Manual) Lymphocytes % (Manual) Seg Neutrophils # Seg Neutrophils # Man D-Dimer ABG pH ABG pO2 ABG HCO3 ABG O2 Saturation ABG Base Excess ABG Hemoglobin Oxyhemoglobin Sodium Chloride Carbon Dioxide 32 H BUN Creatinine 0.5 L 0.5 L Glucose 236 H POC Glucose 257 H Calcium 8.3 L Ferritin AST Lactate Dehydrogenase C-Reactive Protein Total Protein Albumin Coronavirus (PCR) 02/07/21 02/08/21 02/08/21 22:10 04:46 04:46 WBC 4.2 L RBC Hgb 9.7 L MCV 78 L MCH 24 L RDW 17.9 H Plt Count 110 L Lymph % (Auto) Delta % (Auto) Lymph # (Auto) Seg Neutrophils % Seg Neuts % (Manual) Lymphocytes % (Manual) Seg Neutrophils # Seg Neutrophils # Man D-Dimer ABG pH ABG pO2 ABG HCO3 ABG O2 Saturation ABG Base Excess ABG Hemoglobin Oxyhemoglobin Sodium Chloride Carbon Dioxide BUN Creatinine 0.4 L Glucose 220 H POC Glucose 241 H Calcium 8.0 L Ferritin AST Lactate Dehydrogenase C-Reactive Protein Total Protein Albumin Coronavirus (PCR) 02/08/21 02/08/21 02/08/21 08:05 11:36 15:44 WBC RBC Hgb MCV MCH RDW Plt Count Lymph % (Auto) Delta % (Auto) Lymph # (Auto) Seg Neutrophils % Seg Neuts % (Manual) Lymphocytes % (Manual) Seg Neutrophils # Seg Neutrophils # Man D-Dimer ABG pH ABG pO2 ABG HCO3 ABG O2 Saturation ABG Base Excess ABG Hemoglobin Oxyhemoglobin Sodium Chloride Carbon Dioxide BUN Creatinine Glucose POC Glucose 208 H 200 H 149 H Calcium Ferritin AST Lactate Dehydrogenase C-Reactive Protein Total Protein Albumin Coronavirus (PCR) 02/08/21 02/09/21 02/09/21 21:35 04:24 07:39 WBC RBC Hgb MCV MCH RDW Plt Count Lymph % (Auto) Delta % (Auto) Lymph # (Auto) Seg Neutrophils % Seg Neuts % (Manual) Lymphocytes % (Manual) Seg Neutrophils # Seg Neutrophils # Man D-Dimer ABG pH ABG pO2 ABG HCO3 ABG O2 Saturation ABG Base Excess ABG Hemoglobin Oxyhemoglobin Sodium Chloride Carbon Dioxide BUN Creatinine 0.4 L Glucose 205 H POC Glucose 249 H 205 H Calcium 8.1 L Ferritin AST Lactate Dehydrogenase C-Reactive Protein Total Protein Albumin Coronavirus (PCR) 02/09/21 02/09/21 02/09/21 11:53 16:52 21:26 WBC RBC Hgb MCV MCH RDW Plt Count Lymph % (Auto) Delta % (Auto) Lymph # (Auto) Seg Neutrophils % Seg Neuts % (Manual) Lymphocytes % (Manual) Seg Neutrophils # Seg Neutrophils # Man D-Dimer ABG pH ABG pO2 ABG HCO3 ABG O2 Saturation ABG Base Excess ABG Hemoglobin Oxyhemoglobin Sodium Chloride Carbon Dioxide BUN Creatinine Glucose POC Glucose 303 H 164 H 257 H Calcium Ferritin AST Lactate Dehydrogenase C-Reactive Protein Total Protein Albumin Coronavirus (PCR) 02/10/21 02/10/21 02/10/21 09:30 09:38 11:45 WBC RBC Hgb MCV MCH RDW Plt Count Lymph % (Auto) Delta % (Auto) Lymph # (Auto) Seg Neutrophils % Seg Neuts % (Manual) Lymphocytes % (Manual) Seg Neutrophils # Seg Neutrophils # Man D-Dimer ABG pH 7.309 L ABG pO2 71.2 L ABG HCO3 29.1 H ABG O2 Saturation 92.4 L ABG Base Excess ABG Hemoglobin 11.2 L Oxyhemoglobin 90.2 L Sodium Chloride Carbon Dioxide BUN Creatinine Glucose POC Glucose 240 H 257 H Calcium Ferritin AST Lactate Dehydrogenase C-Reactive Protein Total Protein Albumin Coronavirus (PCR) 02/10/21 02/10/21 02/11/21 17:12 21:26 04:50 WBC RBC Hgb MCV 78 L MCH 24 L RDW 20.3 H Plt Count 133 L Lymph % (Auto) Delta % (Auto) Lymph # (Auto) Seg Neutrophils % Seg Neuts % (Manual) Lymphocytes % (Manual) Seg Neutrophils # Seg Neutrophils # Man D-Dimer ABG pH ABG pO2 ABG HCO3 ABG O2 Saturation ABG Base Excess ABG Hemoglobin Oxyhemoglobin Sodium Chloride Carbon Dioxide BUN Creatinine Glucose POC Glucose 178 H 362 H Calcium Ferritin AST Lactate Dehydrogenase C-Reactive Protein Total Protein Albumin Coronavirus (PCR) 02/11/21 02/11/21 02/11/21 08:02 11:52 17:14 WBC RBC Hgb MCV MCH RDW Plt Count Lymph % (Auto) Delta % (Auto) Lymph # (Auto) Seg Neutrophils % Seg Neuts % (Manual) Lymphocytes % (Manual) Seg Neutrophils # Seg Neutrophils # Man D-Dimer ABG pH ABG pO2 ABG HCO3 ABG O2 Saturation ABG Base Excess ABG Hemoglobin Oxyhemoglobin Sodium Chloride Carbon Dioxide BUN Creatinine Glucose POC Glucose 263 H 433 H 212 H Calcium Ferritin AST Lactate Dehydrogenase C-Reactive Protein Total Protein Albumin Coronavirus (PCR) 02/11/21 02/12/21 02/12/21 21:39 08:24 11:21 WBC RBC Hgb MCV MCH RDW Plt Count Lymph % (Auto) Delta % (Auto) Lymph # (Auto) Seg Neutrophils % Seg Neuts % (Manual) Lymphocytes % (Manual) Seg Neutrophils # Seg Neutrophils # Man D-Dimer ABG pH ABG pO2 ABG HCO3 ABG O2 Saturation ABG Base Excess ABG Hemoglobin Oxyhemoglobin Sodium Chloride Carbon Dioxide BUN Creatinine Glucose POC Glucose 248 H 295 H 403 H Calcium Ferritin AST Lactate Dehydrogenase C-Reactive Protein Total Protein Albumin Coronavirus (PCR) 02/12/21 02/13/21 02/13/21 16:29 07:32 12:19 WBC RBC Hgb MCV MCH RDW Plt Count Lymph % (Auto) Delta % (Auto) Lymph # (Auto) Seg Neutrophils % Seg Neuts % (Manual) Lymphocytes % (Manual) Seg Neutrophils # Seg Neutrophils # Man D-Dimer ABG pH ABG pO2 ABG HCO3 ABG O2 Saturation ABG Base Excess ABG Hemoglobin Oxyhemoglobin Sodium Chloride Carbon Dioxide BUN Creatinine Glucose POC Glucose 238 H 299 H 357 H Calcium Ferritin AST Lactate Dehydrogenase C-Reactive Protein Total Protein Albumin Coronavirus (PCR) 02/13/21 02/13/21 02/14/21 16:28 21:45 07:44 WBC RBC Hgb MCV MCH RDW Plt Count Lymph % (Auto) Delta % (Auto) Lymph # (Auto) Seg Neutrophils % Seg Neuts % (Manual) Lymphocytes % (Manual) Seg Neutrophils # Seg Neutrophils # Man D-Dimer ABG pH ABG pO2 ABG HCO3 ABG O2 Saturation ABG Base Excess ABG Hemoglobin Oxyhemoglobin Sodium Chloride Carbon Dioxide BUN Creatinine Glucose POC Glucose 270 H 346 H 234 H Calcium Ferritin AST Lactate Dehydrogenase C-Reactive Protein Total Protein Albumin Coronavirus (PCR) 02/14/21 02/14/21 02/14/21 11:12 16:40 21:27 WBC RBC Hgb MCV MCH RDW Plt Count Lymph % (Auto) Delta % (Auto) Lymph # (Auto) Seg Neutrophils % Seg Neuts % (Manual) Lymphocytes % (Manual) Seg Neutrophils # Seg Neutrophils # Man D-Dimer ABG pH ABG pO2 ABG HCO3 ABG O2 Saturation ABG Base Excess ABG Hemoglobin Oxyhemoglobin Sodium Chloride Carbon Dioxide BUN Creatinine Glucose POC Glucose 294 H 116 H 159 H Calcium Ferritin AST Lactate Dehydrogenase C-Reactive Protein Total Protein Albumin Coronavirus (PCR) 02/15/21 02/15/21 02/15/21 07:58 11:41 16:41 WBC RBC Hgb MCV MCH RDW Plt Count Lymph % (Auto) Delta % (Auto) Lymph # (Auto) Seg Neutrophils % Seg Neuts % (Manual) Lymphocytes % (Manual) Seg Neutrophils # Seg Neutrophils # Man D-Dimer ABG pH ABG pO2 ABG HCO3 ABG O2 Saturation ABG Base Excess ABG Hemoglobin Oxyhemoglobin Sodium Chloride Carbon Dioxide BUN Creatinine Glucose POC Glucose 225 H 325 H 148 H Calcium Ferritin AST Lactate Dehydrogenase C-Reactive Protein Total Protein Albumin Coronavirus (PCR) 02/15/21 02/16/21 02/16/21 22:29 07:55 11:02 WBC RBC Hgb MCV MCH RDW Plt Count Lymph % (Auto) Delta % (Auto) Lymph # (Auto) Seg Neutrophils % Seg Neuts % (Manual) Lymphocytes % (Manual) Seg Neutrophils # Seg Neutrophils # Man D-Dimer ABG pH ABG pO2 ABG HCO3 ABG O2 Saturation ABG Base Excess ABG Hemoglobin Oxyhemoglobin Sodium Chloride Carbon Dioxide BUN Creatinine Glucose POC Glucose 239 H 138 H 337 H Calcium Ferritin AST Lactate Dehydrogenase C-Reactive Protein Total Protein Albumin Coronavirus (PCR) 02/16/21 02/16/21 02/17/21 16:41 21:46 06:53 WBC RBC Hgb MCV 78 L MCH 24 L RDW 18.9 H Plt Count Lymph % (Auto) Delta % (Auto) Lymph # (Auto) Seg Neutrophils % Seg Neuts % (Manual) Lymphocytes % (Manual) Seg Neutrophils # Seg Neutrophils # Man D-Dimer ABG pH ABG pO2 ABG HCO3 ABG O2 Saturation ABG Base Excess ABG Hemoglobin Oxyhemoglobin Sodium Chloride Carbon Dioxide BUN Creatinine Glucose POC Glucose 138 H 286 H Calcium Ferritin AST Lactate Dehydrogenase C-Reactive Protein Total Protein Albumin Coronavirus (PCR) 02/17/21 02/17/21 02/17/21 06:53 07:37 11:12 WBC RBC Hgb MCV MCH RDW Plt Count Lymph % (Auto) Delta % (Auto) Lymph # (Auto) Seg Neutrophils % Seg Neuts % (Manual) Lymphocytes % (Manual) Seg Neutrophils # Seg Neutrophils # Man D-Dimer ABG pH ABG pO2 ABG HCO3 ABG O2 Saturation ABG Base Excess ABG Hemoglobin Oxyhemoglobin Sodium Chloride Carbon Dioxide 31 H BUN 20 H Creatinine 0.4 L Glucose 238 H POC Glucose 251 H 221 H Calcium Ferritin AST Lactate Dehydrogenase C-Reactive Protein Total Protein Albumin Coronavirus (PCR) 02/17/21 02/17/21 02/18/21 16:36 21:21 08:01 WBC RBC Hgb MCV MCH RDW Plt Count Lymph % (Auto) Delta % (Auto) Lymph # (Auto) Seg Neutrophils % Seg Neuts % (Manual) Lymphocytes % (Manual) Seg Neutrophils # Seg Neutrophils # Man D-Dimer ABG pH ABG pO2 ABG HCO3 ABG O2 Saturation ABG Base Excess ABG Hemoglobin Oxyhemoglobin Sodium Chloride Carbon Dioxide BUN Creatinine Glucose POC Glucose 213 H 185 H 280 H Calcium Ferritin AST Lactate Dehydrogenase C-Reactive Protein Total Protein Albumin Coronavirus (PCR)
[2021-02-18] MEDS ORDERED: FUROSEMIDE 40 MG/4 ML INJ IV NR (09:30)
[2021-02-18] MEDS: DIVALPROEX ER 500 MG TAB PO SCH (09:31)
[2021-02-18] MEDS: APIXABAN 2.5 MG TAB PO SCH ×2 (09:31→22:34)
[2021-02-18] MEDS: ZINC SULFATE 220 MG CAP PO SCH (09:31)
[2021-02-18] MEDS: CHOLECALCIFEROL (VIT D3) 5,000 UNIT TAB PO SCH (09:32)
[2021-02-18] MEDS: METOPROLOL TARTRATE 25 MG TAB PO SCH ×2 (09:32→22:35)
[2021-02-18] MEDS: ASCORBIC ACID 500 MG TAB PO SCH ×2 (09:32→22:34)
[2021-02-18] MEDS: FAMOTIDINE 20 MG TAB PO SCH ×2 (09:32→22:34)
[2021-02-18] MEDS: PALIPERIDONE ER 3 MG TAB PO SCH (10:45)
[2021-02-18] MEDS: ARIPiprazole 15 MG TAB PO SCH (10:45)
--- NOTE | 2021-02-18 11:50 | Progress Note ---
Assessment and Plan Assessment and plan: This is a 55-year-old female with schizophrenia who presented to [facility] on 01/18 for shortness of breath, cough, subjective fever and not feeling well for the last couple days with known COVID-19 exposure. While in the emergency room patient was switched from non rebreather mask to high flow nasal cannula and his CTA chest showed no acute pulmonary embolism. Patient was admitted to the hospital service as a COVID-19 PUI with consults to [facility], infectious disease, psych. 01/18/2021 -Acute hypoxic respiratory failure requiring high flow oxygen 40 L. Nebulizer treatment -Patient is admitted for suspected Covid pneumonia. Patient is on dexamethasone, COVID-19 test is pending. Patient is on empiric antibiotics. -ID consulted, will consult pulmonary. -Patient has hyponatremia yesterday and I will repeat and if it is low I will manage accordingly -Patient has elevated D-dimer and CTA chest and bilateral Doppler ultrasound of the lower extremities pending 01/19/2021 -Acute hypoxic respiratory failure currently on BiPAP, nebulizer treatment. I will put in orders to transfer to [facility] yesterday but there was no bed. -Patient is positive for Covid and she is on Decadron and remdesivir. Actemra was ordered on 01/19/2021 -ID evaluated the patient and recommend to continue Decadron and remdesivir, also to continue ceftriaxone and azithromycin for 5 days because of the elevated procalcitonin level. Pulmonary was consulted and recommend to continue current management and add Lasix -CTA chest was done and significant for bilateral pulmonary opacities, negative for PE, Doppler ultrasound of the lower extremities was negative for DVT. -Prognosis is guarded. -Patient is currently on BiPAP and she was agitated and trying to take off the BiPAP, I put the patient on restraints. Discussed with warehouse shipping associate to transfer the patient to IM and if there is no bed she need to be transferred to CCU. 01/20: Patient received 5 mg of Haldol for severe agitation and refusal to keep high flow nasal cannula in place. [facility] ordered Lasix again. Psych was consulted today. Patient was on BiPAP therapy all night and RT attempted to give her a break patient is on high flow nasal cannula however she did not keep this in place and was paced back on BiPAP after receiving Haldol. She was started on Lantus today. 01/21: Patient is on BiPAP and on time examination was on 20/10 100% FiO2. Patient was started on Lantus. Psych consult completed and started on Haldol p.o. twice daily and Mirtazepin PO daily. No acute events reported overnight. Patient's D-dimer is greater than 10,000 started on prophylactic Lovenox as recent CTA chest and bilateral lower extremity Doppler ultrasound were negative. 01/22: Patient has been taken off BiPAP therapy and placed on high flow nasal cannula. Patient has been downgraded to IMCU. Patient's hyponatremia and hypochloremia have worsened. 01/23: Patient was on BiPAP overnight with FiO2 85% and IPAP 20/EPAP 10. Patient currently with high flow nasal cannula 40 L O2 with an FiO2 of 100%. Continue remdesivir and dexamethasone. Patient is s/p Actemra on 01/20. Continue empiric antibiotics per ID recommendations. Continue anticoagulation per protocol. 01/24: Patient is tachycardic and hypertensive and [facility] has opted to add amlodipine. Patient remains on 40 L 100% high flow nasal cannula. Continue remdesivir and dexamethasone. Patient is s/p Actemra on 01/20. Continue empiric antibiotics per ID recommendations. Continue anticoagulation per protocol. 01/25: Patient currently with high flow nasal cannula 40 L/min with FiO2 100%. Continue dexamethasone. Patient has completed remdesivir and s/p Actemra on 01/20. Continue full dose anticoagulation given high elevated D-dimer. Continue to trend inflammatory markers. Prognosis remains guarded. 01/26: Patient currently with high flow nasal cannula 35 L/min and FiO2 90%. Continue dexamethasone. Patient has completed remdesivir and s/p Actemra on 01/20. Continue full dose anticoagulation given high elevated D-dimer. Continue to trend inflammatory markers. Prognosis remains guarded. 01/27: Patient currently with high flow nasal cannula/Vapotherm 35 L/min O2 with FiO2 90%. Patient has completed remdesivir and s/p Actemra on 01/20. Continue full dose anticoagulation given high elevated D-dimer. Continue to trend inflammatory markers. Prognosis remains guarded. 01/28; Patient currently with high flow nasal cannula/Vapotherm 35 L/min O2 with FiO2 90%. Patient has completed remdesivir and s/p Actemra on 01/20. Continue full dose anticoagulation given high elevated D-dimer. Continue to trend inflammatory markers. Prognosis remains guarded. 01/29; patient is currently on 35 L of high flow oxygen. Prognosis guarded. Patient can be transferred to regular floor. 01/30/2021; patient is currently on 35 L of high flow oxygen, FiO2 of 65%. Patient has flat affect and did not talk to me. Patient refused most of her p.o. medications. Patient finished remdesivir, steroid. 01/31/2021; patient is on 35 L of high flow oxygen, FiO2 65%. Patient was calm and cooperative and communicative today. pulmonary is following. Patient finished remdesivir and steroid. 02/01/2021; patient was on 40 L of high flow oxygen.. I have called and discussed with her mother yesterday. Her mother told me patient was last followed at [facility] and I called facility and they told me medication she was on and I put these medications. Patient refused to eat so I put the patient on NG tube feeding for medications. Prognosis is guarded. 02/02/2021; patient is on 4 L of high flow oxygen with FiO2 of 60%. Her outpatient psych medications were reconciled. Patient was taking medications and as needed NG tube. Pulmonary is following the patient. 02/03/21: Patient noted with mild epistaxis this morning we will order some Afrin to help. Continue current management patient is on 35 L high flow. No worsening distress but still with intermittent confusion sometimes takes off the oxygen. Will repeat a trial of Lasix and monitor renal function with a.m. labs. Plan discussed with nurse at bedside. I also encouraged proning again. 02/04: Unfortunately still with hypoxia desaturating required increased to 50 L and 70% will gradually taper down. Patient due to her underlying psych history of schizophrenia is noncompliant. Daughter is working on getting guardianship over the patient. This will likely be a slow process nevertheless we will still obtain a CT of the head to ensure no other pathology. We will get an ABG and a chest x-ray today. 02/05: Patient overnight had an episode where she coughed up blood. H&H has remained stable. She has been since discontinued from full dose anticoagulants to DVT prophylactic dose. Chest x-ray shows mild worsening of congestion. Will discuss with pulmonary if patient will benefit from BiPAP during hours of sleep. Still awaiting information from family on prior psych medications that the patient was on psych review with psychiatry team as her mental status remains a deterrent and an impediment to oxygen management. We will give a trial dose of Lasix x 3 days. Will transfer to [facility] for closer monitoring 02/06: Continue supportive care, 2 more days of lasix, monitor BMP closely wean oxygen as tolerated, pulmonary input noted 02/07: Continues on High flow. Refusing medications, still with severe hypoxia, Discussed with Psych to re-evaluate the patient. 02/08: Unfortunately patient was not seen by psych yesterday and I still do not have home medication listed I asked the family and they promised to bring her in. We discussed with nursing staff to ask again. We will also reconsult psych as her underlying psych condition is precluding improvement due to her refusal of medical treatments. Patient continues on high flow 10 today will be to further wean down if tolerated. She is still refusing prone position 02/09: Patient remains on oxygen, not compliance, continues on restraints to assist with compliance, will try to wean again 02/10: Restart lasix, discussed with Gamb Cutter considering starting on PrECEDEX, Monitor electrolytes. Prognosis is guarded. 02/11/2021; patient is on Lasix, Precedex and Solu-Medrol 40 mg every 8 hours. Patient's blood sugar is elevated and I increase Lantus from 20-25 nightly, give her a dose of 10 units of Lantus now. Will monitor blood sugar. Prognosis very poor. 02/12/2021; patient is on 40 L of high flow oxygen, 94% FiO2. Pulmonary is following the patient and recommendations noted. Dr Mancilla Discussed with the patient and the mother about the plan of care and the high risk of her condition and refusal of care. 02/13/2021; patient was on 30 L of high flow oxygen with FiO2 of 90%. Pulmonary is following the patient. [place] [facility] [place]. Prognosis is guarded. 02/14/2021; patient is on 30 L of high flow oxygen with FiO2 of 90%. Continue inpatient care. 02/15/2021; patient was alert and oriented. Patient states she is feeling okay today. Patient is on 30 L of high flow oxygen with FiO2 of 90%. Patient was given Lasix yesterday. Wean as tolerated. 02/16/2021; patient was alert and oriented. Patient states she is feeling better . Patient is on 25 L of high flow oxygen with FiO2 of 75%. Wean oxygen as tolerated. 02/17: Continue supportive care. Continue to wean as tolerated. Blood sugar 251 mildly elevated will adjust insulin for better control as patient still on steroids Lasix today per Pulmonary no indication to wean steroids until lower FiO2 obtained. 02/18: Agree with intermittent Lasix. Discussed with case management about possible LTAC no Medicaid bed available per documentation. We will continue to follow for now we will continue aggressive weaning of oxygen. Severe COVID-19 pneumonia Acute hypoxic respiratory failure Obesity Schizophrenia Leukocytosis Hyperglycemia Schizophrenia Hypernatremia Hypercholermia -CCM, infectious disease, psychiatry consulted, appreciate recommendations -COVID-19 PCR positive -Droplet/contact isolation -Remdesivir, azithromycin, ceftriaxone, dexamethasone (twice daily dosing) -s/p Actemra -Wean supplemental oxygen as tolerated, pulmonary hygiene -Prone as tolerated -Trend COVID-19 inflammatory markers for risk stratification, CBC, CMP -SSI, Lantus -01/18 bilateral lower extremity Doppler ultrasound negative for DVT -01/17 CTA shows no evidence of pulmonary embolism, extensive bilateral pneumonia, hepatomegaly with hepatic steatosis History Interval history: Patient seen and examined confused, although she knows where she is at she is still confused still person and time she believes that she is the vice president for philanthropy remains Hypoxia down to 55% on 25 L Vapotherm. Hospitalist Physical - Physical exam Narrative exam: Patient was 25 L of oxygen with FiO2 of 55%. Saturating 92% The patient appeared well nourished and normally developed. Vital signs as documented. Head exam is unremarkable. No scleral icterus . Neck is without jugular venous distension, thyromegaly, or carotid bruits. Lungs decreased air entry on both lungs Cardiac exam reveals regular rate and Rhythm. Abdominal exam reveals normal bowel sounds, nontender, no organomegaly. Extremities are nonedematous and both femoral and pedal pulses are normal. WINE FERMENTER: Patient was alert and oriented. X1 to person but confused place and time - Constitutional Vitals: Temp Pulse Resp BP Pulse Ox 98.6 F 96 H 18 138/82 94 02/18/21 05:16 02/18/21 10:00 02/18/21 05:16 02/18/21 05:16 02/18/21 09:03 General appearance: Present: no acute distress, well-nourished HEART Score - HEART Score Troponin: Troponin T < 0.010 ng/mL (0.00-0.029) 01/17/21 16:41 Results - Labs CBC & Chem 7: 02/17/21 06:53 02/17/21 06:53 Labs: Laboratory Last Values WBC 6.3 K/mm3 (4.5-11.0) 02/17/21 06:53 RBC 4.35 M/mm3 (3.65-5.03) 02/17/21 06:53 Hgb 10.3 gm/dl (10.1-14.3) 02/17/21 06:53 Hct 34.0 % (30.3-42.9) 02/17/21 06:53 MCV 78 fl (79-97) L 02/17/21 06:53 MCH 24 pg (28-32) L 02/17/21 06:53 MCHC 30 % (30-34) 02/17/21 06:53 RDW 18.9 % (13.2-15.2) H 02/17/21 06:53 Plt Count 309 K/mm3 (140-440) 02/17/21 06:53 Lymph % (Auto) 44.9 % (13.4-35.0) H 02/02/21 07:56 [place] % (Auto) 9.2 % (0.0-7.3) H 02/02/21 07:56 Eos % (Auto) 3.6 % (0.0-4.3) 02/02/21 07:56 Baso % (Auto) 0.3 % (0.0-1.8) 02/02/21 07:56 Lymph # (Auto) 1.4 K/mm3 (1.2-5.4) 02/02/21 07:56 [place] # (Auto) 0.3 K/mm3 (0.0-0.8) 02/02/21 07:56 Eos # (Auto) 0.1 K/mm3 (0.0-0.4) 02/02/21 07:56 Baso # (Auto) 0.0 K/mm3 (0.0-0.1) 02/02/21 07:56 Add Manual Diff Complete 04/25/21 05:11 Total Counted 100 01/19/21 05:11 Seg Neutrophils % 42.0 % (40.0-70.0) 02/02/21 07:56 Seg Neuts % (Manual) 88.0 % (40.0-70.0) H 01/19/21 05:11 Lymphocytes % (Manual) 10.0 % (13.4-35.0) L 01/19/21 05:11 Monocytes % (Manual) 2.0 % (0.0-7.3) 01/19/21 05:11 Nucleated RBC % Not Reportable 01/19/21 05:11 Seg Neutrophils # 1.3 K/mm3 (1.8-7.7) L 02/02/21 07:56 Seg Neutrophils # Man 12.5 K/mm3 (1.8-7.7) H 01/19/21 05:11 Band Neutrophils # 0.0 K/mm3 01/19/21 05:11 Lymphocytes # (Manual) 1.4 K/mm3 (1.2-5.4) 01/19/21 05:11 Abs React Lymphs (Man) 0.0 K/mm3 01/19/21 05:11 Monocytes # (Manual) 0.3 K/mm3 (0.0-0.8) 01/19/21 05:11 Eosinophils # (Manual) 0.0 K/mm3 (0.0-0.4) 01/19/21 05:11 Basophils # (Manual) 0.0 K/mm3 (0.0-0.1) 01/19/21 05:11 Metamyelocytes # 0.0 K/mm3 01/19/21 05:11 Myelocytes # 0.0 K/mm3 01/19/21 05:11 Promyelocytes # 0.0 K/mm3 01/19/21 05:11 Blast Cells # 0.0 K/mm3 01/19/21 05:11 WBC Morphology Not Reportable 01/19/21 05:11 Hypersegmented Neuts Not Reportable 01/19/21 05:11 Hyposegmented Neuts Not Reportable 01/19/21 05:11 Hypogranular Neuts Not Reportable 01/19/21 05:11 Smudge Cells Not Reportable 01/19/21 05:11 Toxic Granulation Not Reportable 01/19/21 05:11 Toxic Vacuolation Not Reportable 01/19/21 05:11 Dohle Bodies Not Reportable 01/19/21 05:11 Pelger-Huet Anomaly Not Reportable 01/19/21 05:11 Inder Rods Not Reportable 01/19/21 05:11 Platelet Estimate Consistent w auto 01/19/21 05:11 Clumped Platelets Not Reportable 01/19/21 05:11 Plt Clumps, EDTA Not Reportable 01/19/21 05:11 Large Platelets Not Reportable 01/19/21 05:11 Giant Platelets Not Reportable 01/19/21 05:11 Platelet Satelliting Not Reportable 01/19/21 05:11 Plt Morphology Comment Not Reportable 01/19/21 05:11 RBC Morphology Not Reportable 01/19/21 05:11 Dimorphic RBCs Not Reportable 01/19/21 05:11 Polychromasia Not Reportable 01/19/21 05:11 Hypochromasia 1+ 01/19/21 05:11 Poikilocytosis Not Reportable 01/19/21 05:11 Anisocytosis Not Reportable 01/19/21 05:11 Microcytosis Not Reportable 01/19/21 05:11 Macrocytosis Not Reportable 01/19/21 05:11 Spherocytes Not Reportable 01/19/21 05:11 Pappenheimer Bodies Not Reportable 01/19/21 05:11 Sickle Cells Not Reportable 01/19/21 05:11 Target Cells Not Reportable 01/19/21 05:11 Tear Drop Cells Not Reportable 01/19/21 05:11 Ovalocytes Not Reportable 01/19/21 05:11 Helmet Cells Not Reportable 01/19/21 05:11 [place] Bodies Not Reportable 01/19/21 05:11 [place] Rings Not Reportable 01/19/21 05:11 Giorgio Cells Not Reportable 01/19/21 05:11 Bite Cells Not Reportable 01/19/21 05:11 Crenated Cell Not Reportable 01/19/21 05:11 Elliptocytes Not Reportable 01/19/21 05:11 Acanthocytes (Spur) Not Reportable 01/19/21 05:11 Rouleaux Not Reportable 01/19/21 05:11 Hemoglobin C Crystals Not Reportable 01/19/21 05:11 Schistocytes Not Reportable 01/19/21 05:11 Malaria parasites Not Reportable 01/19/21 05:11 Chai Bodies Not Reportable 01/19/21 05:11 Hem Pathologist Commnt No 01/19/21 05:11 PT 13.6 Sec. (12.2-14.9) 02/04/21 14:52 INR 1.06 (0.87-1.13) 02/04/21 14:52 APTT 30.7 Sec. (24.2-36.6) 02/04/21 14:52 D-Dimer 1884.49 ng/mlDDU (0-234) H 01/28/21 08:46 ABG pH 7.309 pH Units (7.350-7.450) L 02/10/21 09:30 ABG pCO2 59.4 mm Hg 02/10/21 09:30 ABG pO2 71.2 mm Hg (80.0-90.0) L 02/10/21 09:30 ABG HCO3 29.1 mmol/L (20.0-26.0) H 02/10/21 09:30 ABG O2 Saturation 92.4 % (95.0-99.0) L 02/10/21 09:30 ABG O2 Content 14.2 (0.0-44) 02/10/21 09:30 ABG Base Excess 1.8 mmol/L (-2.0-3.0) 02/10/21 09:30 ABG Hemoglobin 11.2 gm/dl (12.0-16.0) L 02/10/21 09:30 ABG Carboxyhemoglobin 1.8 % (0.0-5.0) 02/10/21 09:30 ABG Methemoglobin 0.6 % (0.0-1.5) 02/10/21 09:30 Oxyhemoglobin 90.2 % (95.0-99.0) L 02/10/21 09:30 FiO2 100 % 02/10/21 09:30 Sodium 139 mmol/L (137-145) 02/17/21 06:53 Potassium 4.4 mmol/L (3.6-5.0) 02/17/21 06:53 Chloride 99.2 mmol/L (98-107) 02/17/21 06:53 Carbon Dioxide 31 mmol/L (22-30) H 02/17/21 06:53 Anion Gap 13 mmol/L 02/17/21 06:53 BUN 20 mg/dL (7-17) H 02/17/21 06:53 Creatinine 0.4 mg/dL (0.6-1.2) L 02/17/21 06:53 Estimated GFR > 60 ml/min 02/17/21 06:53 BUN/Creatinine Ratio 50 % 02/17/21 06:53 Glucose 238 mg/dL (65-100) H 02/17/21 06:53 POC Glucose 280 mg/dL (70-105) H 02/18/21 08:01 Lactic Acid 1.70 mmol/L (0.7-2.0) 01/17/21 16:41 Calcium 8.6 mg/dL (8.4-10.2) 02/17/21 06:53 Ferritin 797.7 ng/mL (10.0-200.0) H 01/28/21 08:46 Total Bilirubin 0.30 mg/dL (0.1-1.2) 01/21/21 11:29 AST 34 units/L (5-40) 01/21/21 11:29 ALT 38 units/L (7-56) 01/21/21 11:29 Alkaline Phosphatase 117 units/L (35-129) 01/21/21 11:29 Ammonia 43.0 umol/L (25-60) 02/04/21 14:52 Lactate Dehydrogenase 556 units/L (91-180) H 01/28/21 08:46 Troponin T < 0.010 ng/mL (0.00-0.029) 01/17/21 16:41 C-Reactive Protein 0.20 mg/dL (0.00-1.30) 01/28/21 08:46 NT-Pro-B Natriuret Pep 40.88 pg/mL (0-900) 01/17/21 16:41 Total Protein 7.3 g/dL (6.3-8.2) 01/21/21 11:29 Albumin 3.4 g/dL (3.9-5) L 01/21/21 11:29 Albumin/Globulin Ratio 0.9 % 01/21/21 11:29 Procalcitonin 0.39 ng/mL (<0.15) 01/17/21 17:46 Coronavirus (PCR) Negative (Negative) 02/11/21 09:10 Estrada/IV: Voiding Method Bedside Commode Active Medications - Current Medications Current Medications: Generic Name Dose Route Start Last Admin Trade Name Freq PRN Reason Stop Dose Admin Albuterol 2 puff 02/17/21 19:51 Albuterol 8.5 Gm Mdi Inhalation IH Q4HRT PRN Shortness Of Breath Apixaban 2.5 mg 02/04/21 22:00 02/18/21 09:31 Apixaban 2.5 Mg Tab PO 2.5 mg Q12HR PJ Administration Protocol Aripiprazole 15 mg 01/31/21 13:00 02/18/21 10:45 Aripiprazole 15 Mg Tab PO 15 mg QDAY PJ Administration Ascorbic Acid 1,000 mg 02/04/21 10:00 02/18/21 09:32 Ascorbic Acid 500 Mg Tab PO 1,000 mg BID PJ Administration Cholecalciferol 5,000 unit 02/04/21 10:00 02/18/21 09:32 Cholecalciferol (Vit D3) 5,000 Unit Tab PO 5,000 unit DAILY PJ Administration Divalproex Sodium 500 mg 01/31/21 12:00 02/18/21 09:31 Divalproex Er 500 Mg Tab PO 500 mg QDAY PJ Administration Famotidine 20 mg 01/18/21 10:00 02/18/21 09:32 Famotidine 20 Mg Tab PO 20 mg BID PJ Administration Furosemide 40 mg 02/18/21 09:30 02/18/21 09:48 Furosemide 40 Mg/4 Ml Inj IV 02/18/21 13:00 40 mg ONCE@0930 NR Administration Hydralazine HCl 10 mg 01/18/21 00:38 02/14/21 06:22 Hydralazine 20 Mg/1 Ml Inj IV 10 mg Q6H PRN Administration htn Hydromorphone HCl 0.5 mg 01/20/21 11:00 02/18/21 07:55 Hydromorphone 1 Mg/1 Ml Inj IV 0.5 mg Q6H PRN Administration Pain , Severe (7-10) Hydrophilic Ointment 1 applic 02/03/21 12:00 Petrolatum,White 30 Gm Oint TP PRN PRN Skin Irritation Insulin Glargine 25 units 02/11/21 22:00 02/17/21 23:18 Insulin Glargine 100 Units/Ml SUB-Q 25 units QHS PJ Administration Insulin Human Lispro 0 unit 02/01/21 11:30 02/18/21 08:12 Insulin Lispro 100 Unit/Ml SUB-Q 6 unit ACHS PJ Administration Protocol Methylprednisolone Sodium Succinate 40 mg 02/10/21 14:00 02/18/21 05:43 Methylprednisolone Sod Succinate 40 Mg/1 Ml Inj IV 40 mg Q8HR PJ Administration Metoprolol Tartrate 12.5 mg 02/01/21 12:00 02/18/21 09:32 Metoprolol Tartrate 25 Mg Tab PO 12.5 mg BID PJ Administration Mirtazapine 7.5 mg 01/21/21 22:00 02/17/21 23:16 Mirtazapine 15 Mg Tab PO 7.5 mg QHS PJ Administration Oxymetazoline HCl 2 spray 02/03/21 12:00 02/03/21 13:17 Oxymetazoline 0.05% Nasal [place] NS 2 spray Q12H PRN Administration Congestion Paliperidone 6 mg 01/31/21 13:00 02/18/21 10:45 Paliperidone Er 3 Mg Tab PO 6 mg QDAY PJ Administration Sodium Chloride 10 ml 01/18/21 10:00 02/18/21 10:07 Sodium Chloride 0.9% 10 Ml Flush Syringe IV 10 ml BID PJ Administration Zinc Sulfate 220 mg 02/04/21 10:00 02/18/21 09:31 Zinc Sulfate 220 Mg Cap PO 220 mg QDAY PJ Administration Nutrition/Malnutrition Assess - Dietary Evaluation Nutrition/Malnutrition Findings: Nutrition Notes Start: 01/24/21 10:40 Freq: Status: Active Protocol: Document 02/18/21 10:32 AL (Rec: 02/18/21 10:36 AL [id number]) Co-Sign 02/18/21 10:32 LP Nutrition Notes Initial or Follow up Brief Note Current Diagnosis Respiratory Failure Other Pertinent Diagnosis pneu, AMS Current Diet Cardiac/Consistent CHO Height 5 ft 4 in Weight 94 kg [place] Body Weight (kg) 54.54 BMI 35.5 Weight Status Obese Subjective/Other Information Per ADL and pt, she is tolerating meals at 75-100% and has a stable appetite. She states eating "very well." Nutrition Intervention Anticipated Discharge Needs: Cardiac/Consistent CHO Revisit per MD consult or patient Sign Off request:
[2021-02-18] MEDS: MIRTAZAPINE 15 MG TAB PO SCH (22:35)
[2021-02-18] MEDS: INSULIN GLARGINE 100 UNITS/ML SUB-Q SCH (22:37)
[2021-02-19] MEDS: INSULIN LISPRO 100 UNIT/ML SUB-Q SCH ×5 (01:30→22:17)
[2021-02-19] MEDS: methylPREDNISolone Sod Succinate 40 MG/1 ML INJ IV SCH ×3 (06:10→22:12)
--- NOTE | 2021-02-19 08:01 | Progress Note ---
Assessment and Plan 55 y/o female admitted with acute respiratory failure secondary to pneumonia, positive for Sars CoV2 02/19/21: Lasix 40mg IV again today. Patient is tolerating well. No weaning of steroids just yet but almost off HFNC. Once off, can start to wean. Still would send out referrals to LTACH just in case. Will Continue to follow with yo u. Continue to wean for sats >88% 02/18/21: Lasix 40mg IV x1 today. Continue to wean FiO2 for sats >88%. Suggest asking CM if patient would be a good LTACH candidate. Continue steroids for now. Will continue to follow. 02/17/21: Lasix again today. Will start to wean steroids once on lower liter flow of oxygen. Not concerned about elevated bicarb on chemistry and does not need diamox therapy at this time. Will continue to follow. 02/16/21: Lasix again today. Sats improving and oxygen requirement is coming down. Continue steroids. Last chemistry was several days ago. Will check ag ain in am. may need BID lasix. 02/15/21: Lasix today. Continue current dose of steroids. Prone if possible. 02/14/21: lasix again today. Prone if possible. Continue steroids. Guarded Prognosis 02/13/21: ordered more lasix for today. Monitor strict I/O. Prone if patient will allow. Continue steroids. 02/12/18: continue lasix therapy daily. Prone if possible. Guarded prongosis. continue steroids 02/11/21: [facility] has ordered lasix daily for 3 days, will continue to monitor. May need to give an additional dose later tonight. Long discussion at bedside this am about he importance of wearing bipap at night and what that means to her overall health. Will discuss with family too. Overall prognosis is very guarded. Will do our best to not intubate this patient given her morbid obesity as this would increase her mortality rate tremendously. Please continue to document refusal of therapy when appropriate. 02/10/21: Lasix today, 40 IV. Will attempt precedex to see if this will help with mental state and cooperation in care. Will also restart steroids but use solumedrol 40q8 dosing. May need to consider adding back the Haldol PRN as well. Guarded prognosis. Will attempt our best to not intubate this patient as her mortality would be extremely high if intubated given her morbid obesity. 02/02/21: Lasix again today. Patient refuses to prone. Guarded prognosis. 02/01/21: Will give another 40 of lasix today. Will speak with RT about being more aggressive with weaning of oxygen. Prone if possible. 01/31/21: Increased lasix to 40 today. Prone if possible. 01/30/21: Lasix 20mg IV today. Continue Antipsychotic therapy management. Prone as tolerated if patient willing. 01/29/21: Will give lasix again today. Will change Haldol to IM since patient is refusing PO meds. 01/28/21: Will give lasix again today. Continue all other therapies. Prone if patient will and tolerate. STeroids. Guarded prognosis. 01/20/21: Gave Haldol 5 and patient has calmed down and become more appropriate, allowing us to place bipap back on. COntinue steroids and remdesivir therapy. Doubt patient will be able to prone successfully. Will try lasix today again to see if this helps. Very very guarded prognosis. 01/19/21: Continue decadron, suggest increase given patient body habitus to BID. ID consult for Remdesivir therapy and to see if she is a candidate for Actemra. Prone as tolerated during the day and sleep prone at night. Will give lasix again today. Guarded prognosis. 1. Prone 2. Lasix 3. Agree with steroids 4. Follow up COVID testing Guarded prognosis Subjective Date of service: 02/19/21 Principal diagnosis: Covid-19 Interval history: No acute events. Continues to wean nicely. Good sats. Objective Vital Signs - 12hr 02/18/21 02/18/21 02/18/21 20:10 21:46 22:32 Temperature 98.8 F 98.5 F Pulse Rate 77 94 H Respiratory 19 18 17 Rate Blood Pressure 134/46 Blood Pressure 144/61 [Left] O2 Sat by Pulse 96 97 95 Oximetry 02/18/21 02/18/21 02/19/21 22:35 23:44 02:39 Temperature Pulse Rate 96 H Respiratory Rate Blood Pressure 144/61 Blood Pressure [Left] O2 Sat by Pulse 99 100 Oximetry 02/19/21 05:04 Temperature 97.9 F Pulse Rate 70 Respiratory 18 Rate Blood Pressure 129/64 Blood Pressure [Left] O2 Sat by Pulse 96 Oximetry Constitutional: no acute distress, alert Eyes: non-icteric ENT: oropharynx moist Neck: supple, other (large in circumference) Effort: normal Ascultation: Bilateral: clear, diminished breath sounds Cardiovascular: other (tachy, RR; no mrg) Gastrointestinal: normoactive bowel sounds, soft, non-tender, non-distended Integumentary: normal Extremities: no cyanosis, no edema, pink and warm Neurologic: normal mental status, non-focal exam, pupils equal and round Psychiatric: mood appropriate, affect normal CBC and BMP: 02/17/21 06:53 02/17/21 06:53 ABG, PT/INR, D-dimer: ABG ABG pH 7.309 pH Units (7.350-7.450) L 02/10/21 09:30 ABG pCO2 59.4 mm Hg 02/10/21 09:30 ABG pO2 71.2 mm Hg (80.0-90.0) L 02/10/21 09:30 ABG O2 Saturation 92.4 % (95.0-99.0) L 02/10/21 09:30 PT/INR, D-dimer PT 13.6 Sec. (12.2-14.9) 02/04/21 14:52 INR 1.06 (0.87-1.13) 02/04/21 14:52 D-Dimer 1884.49 ng/mlDDU (0-234) H 01/28/21 08:46 Abnormal lab findings: Abnormal Labs 01/17/21 01/17/21 01/17/21 09:25 16:41 16:41 WBC RBC 5.23 H Hgb MCV 76 L MCH 24 L RDW Plt Count Lymph % (Auto) 9.4 L Allen % (Auto) Lymph # (Auto) 0.8 L Seg Neutrophils % 85.4 H Seg Neuts % (Manual) Lymphocytes % (Manual) Seg Neutrophils # Seg Neutrophils # Man D-Dimer ABG pH ABG pO2 ABG HCO3 ABG O2 Saturation ABG Base Excess ABG Hemoglobin Oxyhemoglobin Sodium 128 L Chloride 90.8 L Carbon Dioxide BUN Creatinine Glucose 372 H POC Glucose Calcium Ferritin AST 98 H Lactate Dehydrogenase C-Reactive Protein Total Protein Albumin 3.2 L Coronavirus (PCR) Positive A 01/17/21 01/17/21 01/17/21 17:46 17:46 17:46 WBC RBC Hgb MCV MCH RDW Plt Count Lymph % (Auto) Allen % (Auto) Lymph # (Auto) Seg Neutrophils % Seg Neuts % (Manual) Lymphocytes % (Manual) Seg Neutrophils # Seg Neutrophils # Man D-Dimer 1058.54 H ABG pH ABG pO2 ABG HCO3 ABG O2 Saturation ABG Base Excess ABG Hemoglobin Oxyhemoglobin Sodium Chloride Carbon Dioxide BUN Creatinine Glucose 369 H POC Glucose Calcium Ferritin 668.4 H AST Lactate Dehydrogenase 519 H C-Reactive Protein 19.20 H Total Protein Albumin Coronavirus (PCR) 01/18/21 01/18/21 01/19/21 09:01 17:18 05:11 WBC 14.2 H RBC Hgb MCV 74 L MCH 23 L RDW Plt Count Lymph % (Auto) Allen % (Auto) Lymph # (Auto) Seg Neutrophils % Seg Neuts % (Manual) 88.0 H Lymphocytes % (Manual) 10.0 L Seg Neutrophils # Seg Neutrophils # Man 12.5 H D-Dimer ABG pH 7.461 H ABG pO2 53.1 L ABG HCO3 ABG O2 Saturation 89.4 L ABG Base Excess ABG Hemoglobin Oxyhemoglobin 88.0 L Sodium 132 L Chloride 93.6 L Carbon Dioxide BUN 18 H Creatinine Glucose 367 H POC Glucose Calcium 7.8 L Ferritin AST Lactate Dehydrogenase C-Reactive Protein Total Protein Albumin Coronavirus (PCR) 01/19/21 01/19/21 01/19/21 05:11 11:06 14:43 WBC RBC Hgb MCV MCH RDW Plt Count Lymph % (Auto) Allen % (Auto) Lymph # (Auto) Seg Neutrophils % Seg Neuts % (Manual) Lymphocytes % (Manual) Seg Neutrophils # Seg Neutrophils # Man D-Dimer ABG pH ABG pO2 ABG HCO3 ABG O2 Saturation ABG Base Excess ABG Hemoglobin Oxyhemoglobin Sodium Chloride Carbon Dioxide BUN 18 H Creatinine Glucose 304 H 379 H POC Glucose 382 H Calcium 8.3 L Ferritin AST 92 H 96 H Lactate Dehydrogenase C-Reactive Protein Total Protein Albumin 3.0 L 3.0 L Coronavirus (PCR) 01/19/21 01/19/21 01/20/21 16:18 22:18 07:31 WBC RBC Hgb MCV MCH RDW Plt Count Lymph % (Auto) Allen % (Auto) Lymph # (Auto) Seg Neutrophils % Seg Neuts % (Manual) Lymphocytes % (Manual) Seg Neutrophils # Seg Neutrophils # Man D-Dimer ABG pH ABG pO2 ABG HCO3 ABG O2 Saturation ABG Base Excess ABG Hemoglobin Oxyhemoglobin Sodium Chloride Carbon Dioxide BUN Creatinine Glucose POC Glucose 374 H 341 H 344 H Calcium Ferritin AST Lactate Dehydrogenase C-Reactive Protein Total Protein Albumin Coronavirus (PCR) 01/20/21 01/20/21 01/20/21 07:33 12:14 13:54 WBC RBC Hgb MCV MCH RDW Plt Count Lymph % (Auto) Allen % (Auto) Lymph # (Auto) Seg Neutrophils % Seg Neuts % (Manual) Lymphocytes % (Manual) Seg Neutrophils # Seg Neutrophils # Man D-Dimer ABG pH ABG pO2 ABG HCO3 ABG O2 Saturation ABG Base Excess ABG Hemoglobin Oxyhemoglobin Sodium Chloride Carbon Dioxide BUN 32 H 31 H Creatinine Glucose 343 H 396 H POC Glucose 365 H Calcium Ferritin AST 57 H 54 H Lactate Dehydrogenase C-Reactive Protein Total Protein 8.3 H Albumin 2.7 L 3.1 L Coronavirus (PCR) 01/20/21 01/20/21 01/21/21 18:28 21:25 04:45 WBC RBC Hgb MCV MCH RDW Plt Count Lymph % (Auto) Allen % (Auto) Lymph # (Auto) Seg Neutrophils % Seg Neuts % (Manual) Lymphocytes % (Manual) Seg Neutrophils # Seg Neutrophils # Man D-Dimer ABG pH ABG pO2 ABG HCO3 ABG O2 Saturation ABG Base Excess ABG Hemoglobin Oxyhemoglobin Sodium Chloride Carbon Dioxide 31 H BUN 41 H Creatinine Glucose 377 H POC Glucose 403 H 340 H Calcium Ferritin AST Lactate Dehydrogenase C-Reactive Protein Total Protein 8.3 H Albumin 3.0 L Coronavirus (PCR) 01/21/21 01/21/21 01/21/21 04:45 04:45 04:45 WBC RBC Hgb MCV MCH RDW Plt Count Lymph % (Auto) Allen % (Auto) Lymph # (Auto) Seg Neutrophils % Seg Neuts % (Manual) Lymphocytes % (Manual) Seg Neutrophils # Seg Neutrophils # Man D-Dimer > 10733 H ABG pH ABG pO2 ABG HCO3 ABG O2 Saturation ABG Base Excess ABG Hemoglobin Oxyhemoglobin Sodium Chloride Carbon Dioxide BUN Creatinine Glucose POC Glucose Calcium Ferritin 1688.0 H AST Lactate Dehydrogenase 649 H C-Reactive Protein 17.00 H Total Protein Albumin Coronavirus (PCR) 01/21/21 01/21/21 01/21/21 09:45 11:29 12:09 WBC RBC Hgb MCV MCH RDW Plt Count Lymph % (Auto) Allen % (Auto) Lymph # (Auto) Seg Neutrophils % Seg Neuts % (Manual) Lymphocytes % (Manual) Seg Neutrophils # Seg Neutrophils # Man D-Dimer ABG pH ABG pO2 ABG HCO3 ABG O2 Saturation ABG Base Excess ABG Hemoglobin Oxyhemoglobin Sodium 151 H Chloride Carbon Dioxide BUN 40 H Creatinine Glucose 412 H POC Glucose 401 H 372 H Calcium Ferritin AST Lactate Dehydrogenase C-Reactive Protein Total Protein Albumin 3.4 L Coronavirus (PCR) 01/21/21 01/21/21 01/22/21 18:26 21:09 02:00 WBC RBC Hgb MCV MCH RDW Plt Count Lymph % (Auto) Allen % (Auto) Lymph # (Auto) Seg Neutrophils % Seg Neuts % (Manual) Lymphocytes % (Manual) Seg Neutrophils # Seg Neutrophils # Man D-Dimer ABG pH ABG pO2 ABG HCO3 ABG O2 Saturation ABG Base Excess ABG Hemoglobin Oxyhemoglobin Sodium Chloride Carbon Dioxide BUN Creatinine Glucose POC Glucose 376 H 322 H 231 H Calcium Ferritin AST Lactate Dehydrogenase C-Reactive Protein Total Protein Albumin Coronavirus (PCR) 01/22/21 01/22/21 01/22/21 05:24 08:25 08:25 WBC RBC 5.44 H Hgb MCV 75 L MCH 23 L RDW 15.5 H Plt Count Lymph % (Auto) Allen % (Auto) Lymph # (Auto) Seg Neutrophils % Seg Neuts % (Manual) Lymphocytes % (Manual) Seg Neutrophils # Seg Neutrophils # Man D-Dimer ABG pH ABG pO2 ABG HCO3 ABG O2 Saturation ABG Base Excess ABG Hemoglobin Oxyhemoglobin Sodium 155 H Chloride 112.4 H Carbon Dioxide BUN 33 H Creatinine Glucose 274 H POC Glucose 275 H Calcium Ferritin AST Lactate Dehydrogenase C-Reactive Protein Total Protein Albumin Coronavirus (PCR) 01/22/21 01/22/21 01/22/21 11:53 16:03 21:41 WBC RBC Hgb MCV MCH RDW Plt Count Lymph % (Auto) Allen % (Auto) Lymph # (Auto) Seg Neutrophils % Seg Neuts % (Manual) Lymphocytes % (Manual) Seg Neutrophils # Seg Neutrophils # Man D-Dimer ABG pH ABG pO2 ABG HCO3 ABG O2 Saturation ABG Base Excess ABG Hemoglobin Oxyhemoglobin Sodium Chloride Carbon Dioxide BUN Creatinine Glucose POC Glucose 265 H 293 H 279 H Calcium Ferritin AST Lactate Dehydrogenase C-Reactive Protein Total Protein Albumin Coronavirus (PCR) 01/23/21 01/23/21 01/23/21 02:03 05:46 05:59 WBC RBC Hgb MCV MCH RDW Plt Count Lymph % (Auto) Allen % (Auto) Lymph # (Auto) Seg Neutrophils % Seg Neuts % (Manual) Lymphocytes % (Manual) Seg Neutrophils # Seg Neutrophils # Man D-Dimer ABG pH ABG pO2 ABG HCO3 ABG O2 Saturation ABG Base Excess ABG Hemoglobin Oxyhemoglobin Sodium Chloride Carbon Dioxide BUN Creatinine Glucose POC Glucose 268 H 303 H Calcium Ferritin 1116.0 H AST Lactate Dehydrogenase C-Reactive Protein Total Protein Albumin Coronavirus (PCR) 01/23/21 01/23/21 01/23/21 05:59 07:42 09:11 WBC RBC Hgb MCV MCH RDW Plt Count Lymph % (Auto) Allen % (Auto) Lymph # (Auto) Seg Neutrophils % Seg Neuts % (Manual) Lymphocytes % (Manual) Seg Neutrophils # Seg Neutrophils # Man D-Dimer ABG pH ABG pO2 ABG HCO3 ABG O2 Saturation ABG Base Excess ABG Hemoglobin Oxyhemoglobin Sodium Chloride Carbon Dioxide BUN Creatinine Glucose POC Glucose 291 H 285 H Calcium Ferritin AST Lactate Dehydrogenase 680 H C-Reactive Protein 5.80 H Total Protein Albumin Coronavirus (PCR) 01/23/21 01/23/21 01/23/21 14:06 17:05 17:59 WBC RBC Hgb MCV MCH RDW Plt Count Lymph % (Auto) Allen % (Auto) Lymph # (Auto) Seg Neutrophils % Seg Neuts % (Manual) Lymphocytes % (Manual) Seg Neutrophils # Seg Neutrophils # Man D-Dimer ABG pH ABG pO2 ABG HCO3 ABG O2 Saturation ABG Base Excess ABG Hemoglobin Oxyhemoglobin Sodium Chloride Carbon Dioxide BUN Creatinine Glucose POC Glucose 228 H 300 H 278 H Calcium Ferritin AST Lactate Dehydrogenase C-Reactive Protein Total Protein Albumin Coronavirus (PCR) 01/23/21 01/24/21 01/24/21 21:43 02:14 05:15 WBC RBC Hgb MCV MCH RDW Plt Count Lymph % (Auto) Allen % (Auto) Lymph # (Auto) Seg Neutrophils % Seg Neuts % (Manual) Lymphocytes % (Manual) Seg Neutrophils # Seg Neutrophils # Man D-Dimer ABG pH ABG pO2 ABG HCO3 ABG O2 Saturation ABG Base Excess ABG Hemoglobin Oxyhemoglobin Sodium Chloride Carbon Dioxide BUN Creatinine Glucose POC Glucose 223 H 427 H 392 H Calcium Ferritin AST Lactate Dehydrogenase C-Reactive Protein Total Protein Albumin Coronavirus (PCR) 01/24/21 01/24/21 01/24/21 07:03 07:03 09:10 WBC RBC 5.49 H Hgb MCV 75 L MCH 23 L RDW Plt Count Lymph % (Auto) 7.0 L Allen % (Auto) Lymph # (Auto) 0.5 L Seg Neutrophils % 86.1 H Seg Neuts % (Manual) Lymphocytes % (Manual) Seg Neutrophils # Seg Neutrophils # Man D-Dimer ABG pH ABG pO2 ABG HCO3 ABG O2 Saturation ABG Base Excess ABG Hemoglobin Oxyhemoglobin Sodium 149 H Chloride 111.4 H Carbon Dioxide BUN 24 H Creatinine Glucose 339 H POC Glucose 284 H Calcium Ferritin AST Lactate Dehydrogenase C-Reactive Protein Total Protein Albumin Coronavirus (PCR) 01/24/21 01/24/21 01/24/21 13:47 18:30 21:58 WBC RBC Hgb MCV MCH RDW Plt Count Lymph % (Auto) Allen % (Auto) Lymph # (Auto) Seg Neutrophils % Seg Neuts % (Manual) Lymphocytes % (Manual) Seg Neutrophils # Seg Neutrophils # Man D-Dimer ABG pH ABG pO2 ABG HCO3 ABG O2 Saturation ABG Base Excess ABG Hemoglobin Oxyhemoglobin Sodium Chloride Carbon Dioxide BUN Creatinine Glucose POC Glucose 317 H 180 H 262 H Calcium Ferritin AST Lactate Dehydrogenase C-Reactive Protein Total Protein Albumin Coronavirus (PCR) 01/25/21 01/25/21 01/25/21 01:22 05:35 08:36 WBC RBC Hgb MCV MCH RDW Plt Count Lymph % (Auto) Allen % (Auto) Lymph # (Auto) Seg Neutrophils % Seg Neuts % (Manual) Lymphocytes % (Manual) Seg Neutrophils # Seg Neutrophils # Man D-Dimer ABG pH ABG pO2 ABG HCO3 ABG O2 Saturation ABG Base Excess ABG Hemoglobin Oxyhemoglobin Sodium Chloride Carbon Dioxide BUN Creatinine Glucose POC Glucose 280 H 243 H 216 H Calcium Ferritin AST Lactate Dehydrogenase C-Reactive Protein Total Protein Albumin Coronavirus (PCR) 0501/25/21 01/25/21 15:14 15:14 15:14 WBC RBC Hgb MCV MCH RDW Plt Count Lymph % (Auto) Allen % (Auto) Lymph # (Auto) Seg Neutrophils % Seg Neuts % (Manual) Lymphocytes % (Manual) Seg Neutrophils # Seg Neutrophils # Man D-Dimer 6312.54 H ABG pH ABG pO2 ABG HCO3 ABG O2 Saturation ABG Base Excess ABG Hemoglobin Oxyhemoglobin Sodium 146 H Chloride 108.1 H Carbon Dioxide BUN 19 H Creatinine Glucose 287 H POC Glucose Calcium 8.3 L Ferritin 869.5 H AST Lactate Dehydrogenase 685 H C-Reactive Protein Total Protein Albumin Coronavirus (PCR) 01/25/21 01/25/21 01/26/21 16:06 21:18 01:47 WBC RBC Hgb MCV MCH RDW Plt Count Lymph % (Auto) Allen % (Auto) Lymph # (Auto) Seg Neutrophils % Seg Neuts % (Manual) Lymphocytes % (Manual) Seg Neutrophils # Seg Neutrophils # Man D-Dimer ABG pH ABG pO2 ABG HCO3 ABG O2 Saturation ABG Base Excess ABG Hemoglobin Oxyhemoglobin Sodium Chloride Carbon Dioxide BUN Creatinine Glucose POC Glucose 267 H 197 H 255 H Calcium Ferritin AST Lactate Dehydrogenase C-Reactive Protein Total Protein Albumin Coronavirus (PCR) 01/26/21 01/26/21 01/26/21 05:23 05:23 05:23 WBC RBC Hgb MCV MCH RDW Plt Count Lymph % (Auto) Allen % (Auto) Lymph # (Auto) Seg Neutrophils % Seg Neuts % (Manual) Lymphocytes % (Manual) Seg Neutrophils # Seg Neutrophils # Man D-Dimer 5809.58 H ABG pH ABG pO2 ABG HCO3 ABG O2 Saturation ABG Base Excess ABG Hemoglobin Oxyhemoglobin Sodium 149 H Chloride 109.3 H Carbon Dioxide BUN 24 H Creatinine Glucose 362 H POC Glucose Calcium Ferritin 877.1 H AST Lactate Dehydrogenase 655 H C-Reactive Protein Total Protein Albumin Coronavirus (PCR) 01/26/21 01/26/21 01/26/21 05:23 06:06 09:28 WBC RBC 5.49 H Hgb MCV 77 L MCH 23 L RDW Plt Count Lymph % (Auto) Allen % (Auto) Lymph # (Auto) 0.8 L Seg Neutrophils % 78.9 H Seg Neuts % (Manual) Lymphocytes % (Manual) Seg Neutrophils # Seg Neutrophils # Man D-Dimer ABG pH ABG pO2 ABG HCO3 ABG O2 Saturation ABG Base Excess ABG Hemoglobin Oxyhemoglobin Sodium Chloride Carbon Dioxide BUN Creatinine Glucose POC Glucose 387 H 308 H Calcium Ferritin AST Lactate Dehydrogenase C-Reactive Protein Total Protein Albumin Coronavirus (PCR) 01/26/21 01/26/21 01/27/21 15:56 21:28 02:51 WBC RBC Hgb MCV MCH RDW Plt Count Lymph % (Auto) Allen % (Auto) Lymph # (Auto) Seg Neutrophils % Seg Neuts % (Manual) Lymphocytes % (Manual) Seg Neutrophils # Seg Neutrophils # Man D-Dimer ABG pH ABG pO2 ABG HCO3 ABG O2 Saturation ABG Base Excess ABG Hemoglobin Oxyhemoglobin Sodium Chloride Carbon Dioxide BUN Creatinine Glucose POC Glucose 172 H 316 H 267 H Calcium Ferritin AST Lactate Dehydrogenase C-Reactive Protein Total Protein Albumin Coronavirus (PCR) 01/27/21 01/27/21 01/27/21 04:22 04:22 04:22 WBC RBC Hgb MCV MCH RDW Plt Count Lymph % (Auto) Allen % (Auto) Lymph # (Auto) Seg Neutrophils % Seg Neuts % (Manual) Lymphocytes % (Manual) Seg Neutrophils # Seg Neutrophils # Man D-Dimer 4046.06 H ABG pH ABG pO2 ABG HCO3 ABG O2 Saturation ABG Base Excess ABG Hemoglobin Oxyhemoglobin Sodium Chloride 107.7 H Carbon Dioxide BUN 30 H Creatinine Glucose 281 H POC Glucose Calcium Ferritin 812.2 H AST Lactate Dehydrogenase 570 H C-Reactive Protein Total Protein Albumin Coronavirus (PCR) 01/27/21 01/27/21 01/27/21 04:22 05:55 12:00 WBC RBC 5.15 H Hgb MCV 76 L MCH 23 L RDW 15.5 H Plt Count Lymph % (Auto) 12.7 L Allen % (Auto) Lymph # (Auto) 0.9 L Seg Neutrophils % 81.3 H Seg Neuts % (Manual) Lymphocytes % (Manual) Seg Neutrophils # Seg Neutrophils # Man D-Dimer ABG pH ABG pO2 ABG HCO3 ABG O2 Saturation ABG Base Excess ABG Hemoglobin Oxyhemoglobin Sodium Chloride Carbon Dioxide BUN Creatinine Glucose POC Glucose 275 H 121 H Calcium Ferritin AST Lactate Dehydrogenase C-Reactive Protein Total Protein Albumin Coronavirus (PCR) 01/27/21 01/27/21 01/28/21 17:32 21:23 02:08 WBC RBC Hgb MCV MCH RDW Plt Count Lymph % (Auto) Allen % (Auto) Lymph # (Auto) Seg Neutrophils % Seg Neuts % (Manual) Lymphocytes % (Manual) Seg Neutrophils # Seg Neutrophils # Man D-Dimer ABG pH ABG pO2 ABG HCO3 ABG O2 Saturation ABG Base Excess ABG Hemoglobin Oxyhemoglobin Sodium Chloride Carbon Dioxide BUN Creatinine Glucose POC Glucose 195 H 179 H 210 H Calcium Ferritin AST Lactate Dehydrogenase C-Reactive Protein Total Protein Albumin Coronavirus (PCR) 01/28/21 01/28/21 01/28/21 05:09 08:44 08:46 WBC RBC Hgb MCV MCH RDW Plt Count Lymph % (Auto) Allen % (Auto) Lymph # (Auto) Seg Neutrophils % Seg Neuts % (Manual) Lymphocytes % (Manual) Seg Neutrophils # Seg Neutrophils # Man D-Dimer 1884.49 H ABG pH ABG pO2 ABG HCO3 ABG O2 Saturation ABG Base Excess ABG Hemoglobin Oxyhemoglobin Sodium Chloride Carbon Dioxide BUN Creatinine Glucose POC Glucose 202 H 191 H Calcium Ferritin AST Lactate Dehydrogenase C-Reactive Protein Total Protein Albumin Coronavirus (PCR) 01/28/21 01/28/21 01/28/21 08:46 08:46 12:18 WBC RBC Hgb MCV MCH RDW Plt Count Lymph % (Auto) Allen % (Auto) Lymph # (Auto) Seg Neutrophils % Seg Neuts % (Manual) Lymphocytes % (Manual) Seg Neutrophils # Seg Neutrophils # Man D-Dimer ABG pH ABG pO2 ABG HCO3 ABG O2 Saturation ABG Base Excess ABG Hemoglobin Oxyhemoglobin Sodium Chloride Carbon Dioxide BUN Creatinine Glucose POC Glucose 221 H Calcium Ferritin 797.7 H AST Lactate Dehydrogenase 556 H C-Reactive Protein Total Protein Albumin Coronavirus (PCR) 01/28/21 01/28/21 01/29/21 18:21 21:45 01:48 WBC RBC Hgb MCV MCH RDW Plt Count Lymph % (Auto) Allen % (Auto) Lymph # (Auto) Seg Neutrophils % Seg Neuts % (Manual) Lymphocytes % (Manual) Seg Neutrophils # Seg Neutrophils # Man D-Dimer ABG pH ABG pO2 ABG HCO3 ABG O2 Saturation ABG Base Excess ABG Hemoglobin Oxyhemoglobin Sodium Chloride Carbon Dioxide BUN Creatinine Glucose POC Glucose 214 H 148 H 248 H Calcium Ferritin AST Lactate Dehydrogenase C-Reactive Protein Total Protein Albumin Coronavirus (PCR) 01/29/21 01/29/21 01/29/21 05:17 10:17 11:39 WBC RBC Hgb MCV MCH RDW Plt Count Lymph % (Auto) Allen % (Auto) Lymph # (Auto) Seg Neutrophils % Seg Neuts % (Manual) Lymphocytes % (Manual) Seg Neutrophils # Seg Neutrophils # Man D-Dimer ABG pH ABG pO2 ABG HCO3 ABG O2 Saturation ABG Base Excess ABG Hemoglobin Oxyhemoglobin Sodium Chloride Carbon Dioxide BUN Creatinine Glucose POC Glucose 256 H 193 H 177 H Calcium Ferritin AST Lactate Dehydrogenase C-Reactive Protein Total Protein Albumin Coronavirus (PCR) 01/29/21 01/29/21 01/30/21 18:06 20:24 06:07 WBC RBC Hgb MCV MCH RDW Plt Count Lymph % (Auto) Allen % (Auto) Lymph # (Auto) Seg Neutrophils % Seg Neuts % (Manual) Lymphocytes % (Manual) Seg Neutrophils # Seg Neutrophils # Man D-Dimer ABG pH ABG pO2 ABG HCO3 ABG O2 Saturation ABG Base Excess ABG Hemoglobin Oxyhemoglobin Sodium Chloride Carbon Dioxide BUN Creatinine Glucose POC Glucose 107 H 114 H 114 H Calcium Ferritin AST Lactate Dehydrogenase C-Reactive Protein Total Protein Albumin Coronavirus (PCR) 01/30/21 01/30/21 01/30/21 12:08 16:11 21:19 WBC RBC Hgb MCV MCH RDW Plt Count Lymph % (Auto) Allen % (Auto) Lymph # (Auto) Seg Neutrophils % Seg Neuts % (Manual) Lymphocytes % (Manual) Seg Neutrophils # Seg Neutrophils # Man D-Dimer ABG pH ABG pO2 ABG HCO3 ABG O2 Saturation ABG Base Excess ABG Hemoglobin Oxyhemoglobin Sodium Chloride Carbon Dioxide BUN Creatinine Glucose POC Glucose 178 H 142 H 244 H Calcium Ferritin AST Lactate Dehydrogenase C-Reactive Protein Total Protein Albumin Coronavirus (PCR) 01/31/21 01/31/21 01/31/21 05:30 06:42 07:50 WBC RBC Hgb MCV MCH RDW Plt Count Lymph % (Auto) Allen % (Auto) Lymph # (Auto) Seg Neutrophils % Seg Neuts % (Manual) Lymphocytes % (Manual) Seg Neutrophils # Seg Neutrophils # Man D-Dimer ABG pH ABG pO2 ABG HCO3 ABG O2 Saturation ABG Base Excess ABG Hemoglobin Oxyhemoglobin Sodium Chloride Carbon Dioxide BUN 20 H Creatinine Glucose 160 H POC Glucose 164 H 152 H Calcium 8.0 L Ferritin AST Lactate Dehydrogenase C-Reactive Protein Total Protein Albumin Coronavirus (PCR) 01/31/21 01/31/21 01/31/21 11:40 16:37 21:01 WBC RBC Hgb MCV MCH RDW Plt Count Lymph % (Auto) Allen % (Auto) Lymph # (Auto) Seg Neutrophils % Seg Neuts % (Manual) Lymphocytes % (Manual) Seg Neutrophils # Seg Neutrophils # Man D-Dimer ABG pH ABG pO2 ABG HCO3 ABG O2 Saturation ABG Base Excess ABG Hemoglobin Oxyhemoglobin Sodium Chloride Carbon Dioxide BUN Creatinine Glucose POC Glucose 129 H 141 H 125 H Calcium Ferritin AST Lactate Dehydrogenase C-Reactive Protein Total Protein Albumin Coronavirus (PCR) 02/01/21 02/01/21 02/01/21 06:26 11:15 16:11 WBC RBC Hgb MCV MCH RDW Plt Count Lymph % (Auto) Allen % (Auto) Lymph # (Auto) Seg Neutrophils % Seg Neuts % (Manual) Lymphocytes % (Manual) Seg Neutrophils # Seg Neutrophils # Man D-Dimer ABG pH ABG pO2 ABG HCO3 ABG O2 Saturation ABG Base Excess ABG Hemoglobin Oxyhemoglobin Sodium Chloride Carbon Dioxide BUN Creatinine Glucose POC Glucose 136 H 260 H 240 H Calcium Ferritin AST Lactate Dehydrogenase C-Reactive Protein Total Protein Albumin Coronavirus (PCR) 02/01/21 02/02/21 02/02/21 22:32 07:15 07:56 WBC 3.1 L RBC Hgb MCV 75 L MCH 23 L RDW Plt Count Lymph % (Auto) 44.9 H Allen % (Auto) 9.2 H Lymph # (Auto) Seg Neutrophils % Seg Neuts % (Manual) Lymphocytes % (Manual) Seg Neutrophils # 1.3 L Seg Neutrophils # Man D-Dimer ABG pH ABG pO2 ABG HCO3 ABG O2 Saturation ABG Base Excess ABG Hemoglobin Oxyhemoglobin Sodium Chloride Carbon Dioxide BUN Creatinine Glucose POC Glucose 298 H 164 H Calcium Ferritin AST Lactate Dehydrogenase C-Reactive Protein Total Protein Albumin Coronavirus (PCR) 02/02/21 02/02/21 02/02/21 07:56 11:35 16:07 WBC RBC Hgb MCV MCH RDW Plt Count Lymph % (Auto) Allen % (Auto) Lymph # (Auto) Seg Neutrophils % Seg Neuts % (Manual) Lymphocytes % (Manual) Seg Neutrophils # Seg Neutrophils # Man D-Dimer ABG pH ABG pO2 ABG HCO3 ABG O2 Saturation ABG Base Excess ABG Hemoglobin Oxyhemoglobin Sodium Chloride Carbon Dioxide 31 H BUN Creatinine 0.4 L Glucose 159 H POC Glucose 297 H 252 H Calcium 8.2 L Ferritin AST Lactate Dehydrogenase C-Reactive Protein Total Protein Albumin Coronavirus (PCR) 02/02/21 02/03/21 02/03/21 22:33 17:04 22:17 WBC RBC Hgb MCV MCH RDW Plt Count Lymph % (Auto) Allen % (Auto) Lymph # (Auto) Seg Neutrophils % Seg Neuts % (Manual) Lymphocytes % (Manual) Seg Neutrophils # Seg Neutrophils # Man D-Dimer ABG pH ABG pO2 ABG HCO3 ABG O2 Saturation ABG Base Excess ABG Hemoglobin Oxyhemoglobin Sodium Chloride Carbon Dioxide BUN Creatinine Glucose POC Glucose 257 H 247 H 278 H Calcium Ferritin AST Lactate Dehydrogenase C-Reactive Protein Total Protein Albumin Coronavirus (PCR) 02/04/21 02/04/21 02/04/21 05:41 07:55 11:56 WBC RBC Hgb MCV MCH RDW Plt Count Lymph % (Auto) Allen % (Auto) Lymph # (Auto) Seg Neutrophils % Seg Neuts % (Manual) Lymphocytes % (Manual) Seg Neutrophils # Seg Neutrophils # Man D-Dimer ABG pH ABG pO2 ABG HCO3 ABG O2 Saturation ABG Base Excess ABG Hemoglobin Oxyhemoglobin Sodium Chloride Carbon Dioxide 31 H BUN 19 H Creatinine 0.5 L Glucose 184 H POC Glucose 182 H 227 H Calcium Ferritin AST Lactate Dehydrogenase C-Reactive Protein Total Protein Albumin Coronavirus (PCR) 02/04/21 02/04/21 02/04/21 12:45 14:52 16:45 WBC 4.0 L RBC Hgb MCV 77 L MCH 24 L RDW 15.5 H Plt Count Lymph % (Auto) Allen % (Auto) Lymph # (Auto) Seg Neutrophils % Seg Neuts % (Manual) Lymphocytes % (Manual) Seg Neutrophils # Seg Neutrophils # Man D-Dimer ABG pH ABG pO2 65.6 L ABG HCO3 30.8 H ABG O2 Saturation 94.0 L ABG Base Excess 5.5 H ABG Hemoglobin 10.3 L Oxyhemoglobin 92.3 L Sodium Chloride Carbon Dioxide BUN Creatinine Glucose POC Glucose 194 H Calcium Ferritin AST Lactate Dehydrogenase C-Reactive Protein Total Protein Albumin Coronavirus (PCR) 02/04/21 02/05/21 02/05/21 22:00 06:55 07:49 WBC RBC Hgb 10.0 L MCV MCH RDW Plt Count Lymph % (Auto) Allen % (Auto) Lymph # (Auto) Seg Neutrophils % Seg Neuts % (Manual) Lymphocytes % (Manual) Seg Neutrophils # Seg Neutrophils # Man D-Dimer ABG pH ABG pO2 ABG HCO3 ABG O2 Saturation ABG Base Excess ABG Hemoglobin Oxyhemoglobin Sodium Chloride Carbon Dioxide BUN Creatinine Glucose POC Glucose 281 H 204 H Calcium Ferritin AST Lactate Dehydrogenase C-Reactive Protein Total Protein Albumin Coronavirus (PCR) 02/05/21 02/05/21 02/05/21 11:23 16:13 16:22 WBC RBC Hgb 10.0 L MCV MCH RDW Plt Count Lymph % (Auto) Allen % (Auto) Lymph # (Auto) Seg Neutrophils % Seg Neuts % (Manual) Lymphocytes % (Manual) Seg Neutrophils # Seg Neutrophils # Man D-Dimer ABG pH ABG pO2 ABG HCO3 ABG O2 Saturation ABG Base Excess ABG Hemoglobin Oxyhemoglobin Sodium Chloride Carbon Dioxide BUN Creatinine Glucose POC Glucose 264 H 202 H Calcium Ferritin AST Lactate Dehydrogenase C-Reactive Protein Total Protein Albumin Coronavirus (PCR) 02/05/21 02/06/21 02/06/21 21:14 04:43 04:43 WBC 4.0 L RBC Hgb 10.0 L MCV 76 L MCH 23 L RDW 15.7 H Plt Count Lymph % (Auto) Allen % (Auto) Lymph # (Auto) Seg Neutrophils % Seg Neuts % (Manual) Lymphocytes % (Manual) Seg Neutrophils # Seg Neutrophils # Man D-Dimer ABG pH ABG pO2 ABG HCO3 ABG O2 Saturation ABG Base Excess ABG Hemoglobin Oxyhemoglobin Sodium Chloride Carbon Dioxide 32 H BUN Creatinine 0.4 L Glucose 163 H POC Glucose 180 H Calcium 8.3 L Ferritin AST Lactate Dehydrogenase C-Reactive Protein Total Protein Albumin Coronavirus (PCR) 02/06/21 02/06/21 02/06/21 08:01 11:44 16:11 WBC RBC Hgb MCV MCH RDW Plt Count Lymph % (Auto) Allen % (Auto) Lymph # (Auto) Seg Neutrophils % Seg Neuts % (Manual) Lymphocytes % (Manual) Seg Neutrophils # Seg Neutrophils # Man D-Dimer ABG pH ABG pO2 ABG HCO3 ABG O2 Saturation ABG Base Excess ABG Hemoglobin Oxyhemoglobin Sodium Chloride Carbon Dioxide BUN Creatinine Glucose POC Glucose 155 H 215 H 247 H Calcium Ferritin AST Lactate Dehydrogenase C-Reactive Protein Total Protein Albumin Coronavirus (PCR) 02/06/21 02/07/21 02/07/21 23:40 08:01 11:54 WBC RBC Hgb MCV MCH RDW Plt Count Lymph % (Auto) Allen % (Auto) Lymph # (Auto) Seg Neutrophils % Seg Neuts % (Manual) Lymphocytes % (Manual) Seg Neutrophils # Seg Neutrophils # Man D-Dimer ABG pH ABG pO2 ABG HCO3 ABG O2 Saturation ABG Base Excess ABG Hemoglobin Oxyhemoglobin Sodium Chloride Carbon Dioxide BUN Creatinine Glucose POC Glucose 267 H 233 H 227 H Calcium Ferritin AST Lactate Dehydrogenase C-Reactive Protein Total Protein Albumin Coronavirus (PCR) 02/07/21 02/07/21 02/07/21 15:48 20:58 20:58 WBC RBC Hgb MCV MCH RDW Plt Count Lymph % (Auto) Allen % (Auto) Lymph # (Auto) Seg Neutrophils % Seg Neuts % (Manual) Lymphocytes % (Manual) Seg Neutrophils # Seg Neutrophils # Man D-Dimer ABG pH ABG pO2 ABG HCO3 ABG O2 Saturation ABG Base Excess ABG Hemoglobin Oxyhemoglobin Sodium Chloride Carbon Dioxide 32 H BUN Creatinine 0.5 L 0.5 L Glucose 236 H POC Glucose 257 H Calcium 8.3 L Ferritin AST Lactate Dehydrogenase C-Reactive Protein Total Protein Albumin Coronavirus (PCR) 02/07/21 02/08/21 02/08/21 22:10 04:46 04:46 WBC 4.2 L RBC Hgb 9.7 L MCV 78 L MCH 24 L RDW 17.9 H Plt Count 110 L Lymph % (Auto) Allen % (Auto) Lymph # (Auto) Seg Neutrophils % Seg Neuts % (Manual) Lymphocytes % (Manual) Seg Neutrophils # Seg Neutrophils # Man D-Dimer ABG pH ABG pO2 ABG HCO3 ABG O2 Saturation ABG Base Excess ABG Hemoglobin Oxyhemoglobin Sodium Chloride Carbon Dioxide BUN Creatinine 0.4 L Glucose 220 H POC Glucose 241 H Calcium 8.0 L Ferritin AST Lactate Dehydrogenase C-Reactive Protein Total Protein Albumin Coronavirus (PCR) 02/08/21 02/08/21 02/08/21 08:05 11:36 15:44 WBC RBC Hgb MCV MCH RDW Plt Count Lymph % (Auto) Allen % (Auto) Lymph # (Auto) Seg Neutrophils % Seg Neuts % (Manual) Lymphocytes % (Manual) Seg Neutrophils # Seg Neutrophils # Man D-Dimer ABG pH ABG pO2 ABG HCO3 ABG O2 Saturation ABG Base Excess ABG Hemoglobin Oxyhemoglobin Sodium Chloride Carbon Dioxide BUN Creatinine Glucose POC Glucose 208 H 200 H 149 H Calcium Ferritin AST Lactate Dehydrogenase C-Reactive Protein Total Protein Albumin Coronavirus (PCR) 02/08/21 02/09/21 02/09/21 21:35 04:24 07:39 WBC RBC Hgb MCV MCH RDW Plt Count Lymph % (Auto) [place] % (Auto) Lymph # (Auto) Seg Neutrophils % Seg Neuts % (Manual) Lymphocytes % (Manual) Seg Neutrophils # Seg Neutrophils # Man D-Dimer ABG pH ABG pO2 ABG HCO3 ABG O2 Saturation ABG Base Excess ABG Hemoglobin Oxyhemoglobin Sodium Chloride Carbon Dioxide BUN Creatinine 0.4 L Glucose 205 H POC Glucose 249 H 205 H Calcium 8.1 L Ferritin AST Lactate Dehydrogenase C-Reactive Protein Total Protein Albumin Coronavirus (PCR) 02/09/21 02/09/21 02/09/21 11:53 16:52 21:26 WBC RBC Hgb MCV MCH RDW Plt Count Lymph % (Auto) Allen % (Auto) Lymph # (Auto) Seg Neutrophils % Seg Neuts % (Manual) Lymphocytes % (Manual) Seg Neutrophils # Seg Neutrophils # Man D-Dimer ABG pH ABG pO2 ABG HCO3 ABG O2 Saturation ABG Base Excess ABG Hemoglobin Oxyhemoglobin Sodium Chloride Carbon Dioxide BUN Creatinine Glucose POC Glucose 303 H 164 H 257 H Calcium Ferritin AST Lactate Dehydrogenase C-Reactive Protein Total Protein Albumin Coronavirus (PCR) 02/10/21 02/10/21 02/10/21 09:30 09:38 11:45 WBC RBC Hgb MCV MCH RDW Plt Count Lymph % (Auto) Allen % (Auto) Lymph # (Auto) Seg Neutrophils % Seg Neuts % (Manual) Lymphocytes % (Manual) Seg Neutrophils # Seg Neutrophils # Man D-Dimer ABG pH 7.309 L ABG pO2 71.2 L ABG HCO3 29.1 H ABG O2 Saturation 92.4 L ABG Base Excess ABG Hemoglobin 11.2 L Oxyhemoglobin 90.2 L Sodium Chloride Carbon Dioxide BUN Creatinine Glucose POC Glucose 240 H 257 H Calcium Ferritin AST Lactate Dehydrogenase C-Reactive Protein Total Protein Albumin Coronavirus (PCR) 02/10/21 02/10/21 02/11/21 17:12 21:26 04:50 WBC RBC Hgb MCV 78 L MCH 24 L RDW 20.3 H Plt Count 133 L Lymph % (Auto) Allen % (Auto) Lymph # (Auto) Seg Neutrophils % Seg Neuts % (Manual) Lymphocytes % (Manual) Seg Neutrophils # Seg Neutrophils # Man D-Dimer ABG pH ABG pO2 ABG HCO3 ABG O2 Saturation ABG Base Excess ABG Hemoglobin Oxyhemoglobin Sodium Chloride Carbon Dioxide BUN Creatinine Glucose POC Glucose 178 H 362 H Calcium Ferritin AST Lactate Dehydrogenase C-Reactive Protein Total Protein Albumin Coronavirus (PCR) 02/11/21 02/11/21 02/11/21 08:02 11:52 17:14 WBC RBC Hgb MCV MCH RDW Plt Count Lymph % (Auto) Allen % (Auto) Lymph # (Auto) Seg Neutrophils % Seg Neuts % (Manual) Lymphocytes % (Manual) Seg Neutrophils # Seg Neutrophils # Man D-Dimer ABG pH ABG pO2 ABG HCO3 ABG O2 Saturation ABG Base Excess ABG Hemoglobin Oxyhemoglobin Sodium Chloride Carbon Dioxide BUN Creatinine Glucose POC Glucose 263 H 433 H 212 H Calcium Ferritin AST Lactate Dehydrogenase C-Reactive Protein Total Protein Albumin Coronavirus (PCR) 02/11/21 02/12/21 02/12/21 21:39 08:24 11:21 WBC RBC Hgb MCV MCH RDW Plt Count Lymph % (Auto) Allen % (Auto) Lymph # (Auto) Seg Neutrophils % Seg Neuts % (Manual) Lymphocytes % (Manual) Seg Neutrophils # Seg Neutrophils # Man D-Dimer ABG pH ABG pO2 ABG HCO3 ABG O2 Saturation ABG Base Excess ABG Hemoglobin Oxyhemoglobin Sodium Chloride Carbon Dioxide BUN Creatinine Glucose POC Glucose 248 H 295 H 403 H Calcium Ferritin AST Lactate Dehydrogenase C-Reactive Protein Total Protein Albumin Coronavirus (PCR) 02/12/21 02/13/21 02/13/21 16:29 07:32 12:19 WBC RBC Hgb MCV MCH RDW Plt Count Lymph % (Auto) [place] % (Auto) Lymph # (Auto) Seg Neutrophils % Seg Neuts % (Manual) Lymphocytes % (Manual) Seg Neutrophils # Seg Neutrophils # Man D-Dimer ABG pH ABG pO2 ABG HCO3 ABG O2 Saturation ABG Base Excess ABG Hemoglobin Oxyhemoglobin Sodium Chloride Carbon Dioxide BUN Creatinine Glucose POC Glucose 238 H 299 H 357 H Calcium Ferritin AST Lactate Dehydrogenase C-Reactive Protein Total Protein Albumin Coronavirus (PCR) 02/13/21 02/13/21 02/14/21 16:28 21:45 07:44 WBC RBC Hgb MCV MCH RDW Plt Count Lymph % (Auto) [place] % (Auto) Lymph # (Auto) Seg Neutrophils % Seg Neuts % (Manual) Lymphocytes % (Manual) Seg Neutrophils # Seg Neutrophils # Man D-Dimer ABG pH ABG pO2 ABG HCO3 ABG O2 Saturation ABG Base Excess ABG Hemoglobin Oxyhemoglobin Sodium Chloride Carbon Dioxide BUN Creatinine Glucose POC Glucose 270 H 346 H 234 H Calcium Ferritin AST Lactate Dehydrogenase C-Reactive Protein Total Protein Albumin Coronavirus (PCR) 02/14/21 02/14/21 02/14/21 11:12 16:40 21:27 WBC RBC Hgb MCV MCH RDW Plt Count Lymph % (Auto) [place] % (Auto) Lymph # (Auto) Seg Neutrophils % Seg Neuts % (Manual) Lymphocytes % (Manual) Seg Neutrophils # Seg Neutrophils # Man D-Dimer ABG pH ABG pO2 ABG HCO3 ABG O2 Saturation ABG Base Excess ABG Hemoglobin Oxyhemoglobin Sodium Chloride Carbon Dioxide BUN Creatinine Glucose POC Glucose 294 H 116 H 159 H Calcium Ferritin AST Lactate Dehydrogenase C-Reactive Protein Total Protein Albumin Coronavirus (PCR) 02/15/21 02/15/21 02/15/21 07:58 11:41 16:41 WBC RBC Hgb MCV MCH RDW Plt Count Lymph % (Auto) [place] % (Auto) Lymph # (Auto) Seg Neutrophils % Seg Neuts % (Manual) Lymphocytes % (Manual) Seg Neutrophils # Seg Neutrophils # Man D-Dimer ABG pH ABG pO2 ABG HCO3 ABG O2 Saturation ABG Base Excess ABG Hemoglobin Oxyhemoglobin Sodium Chloride Carbon Dioxide BUN Creatinine Glucose POC Glucose 225 H 325 H 148 H Calcium Ferritin AST Lactate Dehydrogenase C-Reactive Protein Total Protein Albumin Coronavirus (PCR) 02/15/21 02/16/21 02/16/21 22:29 07:55 11:02 WBC RBC Hgb MCV MCH RDW Plt Count Lymph % (Auto) [place] % (Auto) Lymph # (Auto) Seg Neutrophils % Seg Neuts % (Manual) Lymphocytes % (Manual) Seg Neutrophils # Seg Neutrophils # Man D-Dimer ABG pH ABG pO2 ABG HCO3 ABG O2 Saturation ABG Base Excess ABG Hemoglobin Oxyhemoglobin Sodium Chloride Carbon Dioxide BUN Creatinine Glucose POC Glucose 239 H 138 H 337 H Calcium Ferritin AST Lactate Dehydrogenase C-Reactive Protein Total Protein Albumin Coronavirus (PCR) 02/16/21 02/16/21 02/17/21 16:41 21:46 06:53 WBC RBC Hgb MCV 78 L MCH 24 L RDW 18.9 H Plt Count Lymph % (Auto) Allen % (Auto) Lymph # (Auto) Seg Neutrophils % Seg Neuts % (Manual) Lymphocytes % (Manual) Seg Neutrophils # Seg Neutrophils # Man D-Dimer ABG pH ABG pO2 ABG HCO3 ABG O2 Saturation ABG Base Excess ABG Hemoglobin Oxyhemoglobin Sodium Chloride Carbon Dioxide BUN Creatinine Glucose POC Glucose 138 H 286 H Calcium Ferritin AST Lactate Dehydrogenase C-Reactive Protein Total Protein Albumin Coronavirus (PCR) 02/17/21 02/17/21 02/17/21 06:53 07:37 11:12 WBC RBC Hgb MCV MCH RDW Plt Count Lymph % (Auto) [place] % (Auto) Lymph # (Auto) Seg Neutrophils % Seg Neuts % (Manual) Lymphocytes % (Manual) Seg Neutrophils # Seg Neutrophils # Man D-Dimer ABG pH ABG pO2 ABG HCO3 ABG O2 Saturation ABG Base Excess ABG Hemoglobin Oxyhemoglobin Sodium Chloride Carbon Dioxide 31 H BUN 20 H Creatinine 0.4 L Glucose 238 H POC Glucose 251 H 221 H Calcium Ferritin AST Lactate Dehydrogenase C-Reactive Protein Total Protein Albumin Coronavirus (PCR) 02/17/21 02/17/21 02/18/21 16:36 21:21 08:01 WBC RBC Hgb MCV MCH RDW Plt Count Lymph % (Auto) [place] % (Auto) Lymph # (Auto) Seg Neutrophils % Seg Neuts % (Manual) Lymphocytes % (Manual) Seg Neutrophils # Seg Neutrophils # Man D-Dimer ABG pH ABG pO2 ABG HCO3 ABG O2 Saturation ABG Base Excess ABG Hemoglobin Oxyhemoglobin Sodium Chloride Carbon Dioxide BUN Creatinine Glucose POC Glucose 213 H 185 H 280 H Calcium Ferritin AST Lactate Dehydrogenase C-Reactive Protein Total Protein Albumin Coronavirus (PCR) 02/18/21 02/18/21 02/18/21 11:55 15:33 21:48 WBC RBC Hgb MCV MCH RDW Plt Count Lymph % (Auto) [place] % (Auto) Lymph # (Auto) Seg Neutrophils % Seg Neuts % (Manual) Lymphocytes % (Manual) Seg Neutrophils # Seg Neutrophils # Man D-Dimer ABG pH ABG pO2 ABG HCO3 ABG O2 Saturation ABG Base Excess ABG Hemoglobin Oxyhemoglobin Sodium Chloride Carbon Dioxide BUN Creatinine Glucose POC Glucose 303 H 276 H 288 H Calcium Ferritin AST Lactate Dehydrogenase C-Reactive Protein Total Protein Albumin Coronavirus (PCR)
[2021-02-19] MEDS: FAMOTIDINE 20 MG TAB PO SCH ×2 (09:32→22:10)
[2021-02-19] MEDS: ZINC SULFATE 220 MG CAP PO SCH (09:32)
[2021-02-19] MEDS: METOPROLOL TARTRATE 25 MG TAB PO SCH ×2 (09:32→22:20)
[2021-02-19] MEDS: ASCORBIC ACID 500 MG TAB PO SCH ×2 (09:33→22:10)
[2021-02-19] MEDS: APIXABAN 2.5 MG TAB PO SCH ×2 (09:33→22:10)
[2021-02-19] MEDS: DIVALPROEX ER 500 MG TAB PO SCH (09:33)
[2021-02-19] MEDS: CHOLECALCIFEROL (VIT D3) 5,000 UNIT TAB PO SCH (09:33)
[2021-02-19] MEDS: PALIPERIDONE ER 3 MG TAB PO SCH (09:39)
[2021-02-19] MEDS: ARIPiprazole 15 MG TAB PO SCH (09:39)
--- NOTE | 2021-02-19 12:07 | Progress Note ---
Assessment and Plan Assessment and plan: This is a 55-year-old female with schizophrenia who presented to [facility] on 01/18 for shortness of breath, cough, subjective fever and not feeling well for the last couple days with known COVID-19 exposure. While in the emergency room patient was switched from non rebreather mask to high flow nasal cannula and his CTA chest showed no acute pulmonary embolism. Patient was admitted to the hospital service as a COVID-19 PUI with consults to [facility], infectious disease, psych. 01/18/2021 -Acute hypoxic respiratory failure requiring high flow oxygen 40 L. Nebulizer treatment -Patient is admitted for suspected Covid pneumonia. Patient is on dexamethasone, COVID-19 test is pending. Patient is on empiric antibiotics. -ID consulted, will consult pulmonary. -Patient has hyponatremia yesterday and I will repeat and if it is low I will manage accordingly -Patient has elevated D-dimer and CTA chest and bilateral Doppler ultrasound of the lower extremities pending 01/19/2021 -Acute hypoxic respiratory failure currently on BiPAP, nebulizer treatment. I will put in orders to transfer to [facility] yesterday but there was no bed. -Patient is positive for Covid and she is on Decadron and remdesivir. Actemra was ordered on 01/19/2021 -ID evaluated the patient and recommend to continue Decadron and remdesivir, also to continue ceftriaxone and azithromycin for 5 days because of the elevated procalcitonin level. Pulmonary was consulted and recommend to continue current management and add Lasix -CTA chest was done and significant for bilateral pulmonary opacities, negative for PE, Doppler ultrasound of the lower extremities was negative for DVT. -Prognosis is guarded. -Patient is currently on BiPAP and she was agitated and trying to take off the BiPAP, I put the patient on restraints. Discussed with lodging house keeper to transfer the patient to IM and if there is no bed she need to be transferred to CCU. 01/20: Patient received 5 mg of Haldol for severe agitation and refusal to keep high flow nasal cannula in place. [facility] ordered Lasix again. Psych was consulted today. Patient was on BiPAP therapy all night and RT attempted to give her a break patient is on high flow nasal cannula however she did not keep this in place and was paced back on BiPAP after receiving Haldol. She was started on Lantus today. 01/21: Patient is on BiPAP and on time examination was on 20/10 100% FiO2. Patient was started on Lantus. Psych consult completed and started on Haldol p.o. twice daily and Mirtazepin PO daily. No acute events reported overnight. Patient's D-dimer is greater than 10,000 started on prophylactic Lovenox as recent CTA chest and bilateral lower extremity Doppler ultrasound were negative. 01/22: Patient has been taken off BiPAP therapy and placed on high flow nasal cannula. Patient has been downgraded to IMCU. Patient's hyponatremia and hypochloremia have worsened. 01/23: Patient was on BiPAP overnight with FiO2 85% and IPAP 20/EPAP 10. Patient currently with high flow nasal cannula 40 L O2 with an FiO2 of 100%. Continue remdesivir and dexamethasone. Patient is s/p Actemra on 01/20. Continue empiric antibiotics per ID recommendations. Continue anticoagulation per protocol. 01/24: Patient is tachycardic and hypertensive and [facility] has opted to add amlodipine. Patient remains on 40 L 100% high flow nasal cannula. Continue remdesivir and dexamethasone. Patient is s/p Actemra on 01/20. Continue empiric antibiotics per ID recommendations. Continue anticoagulation per protocol. 01/25: Patient currently with high flow nasal cannula 40 L/min with FiO2 100%. Continue dexamethasone. Patient has completed remdesivir and s/p Actemra on 01/20. Continue full dose anticoagulation given high elevated D-dimer. Continue to trend inflammatory markers. Prognosis remains guarded. 01/26: Patient currently with high flow nasal cannula 35 L/min and FiO2 90%. Continue dexamethasone. Patient has completed remdesivir and s/p Actemra on 01/20. Continue full dose anticoagulation given high elevated D-dimer. Continue to trend inflammatory markers. Prognosis remains guarded. 01/27: Patient currently with high flow nasal cannula/Vapotherm 35 L/min O2 with FiO2 90%. Patient has completed remdesivir and s/p Actemra on 01/20. Continue full dose anticoagulation given high elevated D-dimer. Continue to trend inflammatory markers. Prognosis remains guarded. 01/28; Patient currently with high flow nasal cannula/Vapotherm 35 L/min O2 with FiO2 90%. Patient has completed remdesivir and s/p Actemra on 01/20. Continue full dose anticoagulation given high elevated D-dimer. Continue to trend inflammatory markers. Prognosis remains guarded. 01/29; patient is currently on 35 L of high flow oxygen. Prognosis guarded. Patient can be transferred to regular floor. 01/30/2021; patient is currently on 35 L of high flow oxygen, FiO2 of 65%. Patient has flat affect and did not talk to me. Patient refused most of her p.o. medications. Patient finished remdesivir, steroid. 01/31/2021; patient is on 35 L of high flow oxygen, FiO2 65%. Patient was calm and cooperative and communicative today. pulmonary is following. Patient finished remdesivir and steroid. 02/01/2021; patient was on 40 L of high flow oxygen.. I have called and discussed with her mother yesterday. Her mother told me patient was last followed at [facility] and I called facility and they told me medication she was on and I put these medications. Patient refused to eat so I put the patient on NG tube feeding for medications. Prognosis is guarded. 02/02/2021; patient is on 4 L of high flow oxygen with FiO2 of 60%. Her outpatient psych medications were reconciled. Patient was taking medications and as needed NG tube. Pulmonary is following the patient. 02/03/21: Patient noted with mild epistaxis this morning we will order some Afrin to help. Continue current management patient is on 35 L high flow. No worsening distress but still with intermittent confusion sometimes takes off the oxygen. Will repeat a trial of Lasix and monitor renal function with a.m. labs. Plan discussed with nurse at bedside. I also encouraged proning again. 02/04: Unfortunately still with hypoxia desaturating required increased to 50 L and 70% will gradually taper down. Patient due to her underlying psych history of schizophrenia is noncompliant. Daughter is working on getting guardianship over the patient. This will likely be a slow process nevertheless we will still obtain a CT of the head to ensure no other pathology. We will get an ABG and a chest x-ray today. 02/05: Patient overnight had an episode where she coughed up blood. H&H has remained stable. She has been since discontinued from full dose anticoagulants to DVT prophylactic dose. Chest x-ray shows mild worsening of congestion. Will discuss with pulmonary if patient will benefit from BiPAP during hours of sleep. Still awaiting information from family on prior psych medications that the patient was on psych review with psychiatry team as her mental status remains a deterrent and an impediment to oxygen management. We will give a trial dose of Lasix x 3 days. Will transfer to [facility] for closer monitoring 02/06: Continue supportive care, 2 more days of lasix, monitor BMP closely wean oxygen as tolerated, pulmonary input noted 02/07: Continues on High flow. Refusing medications, still with severe hypoxia, Discussed with Psych to re-evaluate the patient. 02/08: Unfortunately patient was not seen by psych yesterday and I still do not have home medication listed I asked the family and they promised to bring her in. We discussed with nursing staff to ask again. We will also reconsult psych as her underlying psych condition is precluding improvement due to her refusal of medical treatments. Patient continues on high flow 10 today will be to further wean down if tolerated. She is still refusing prone position 02/09: Patient remains on oxygen, not compliance, continues on restraints to assist with compliance, will try to wean again 02/10: Restart lasix, discussed with [employer] considering starting on PrECEDEX, Monitor electrolytes. Prognosis is guarded. 02/11/2021; patient is on Lasix, Precedex and Solu-Medrol 40 mg every 8 hours. Patient's blood sugar is elevated and I increase Lantus from 20-25 nightly, give her a dose of 10 units of Lantus now. Will monitor blood sugar. Prognosis very poor. 02/12/2021; patient is on 40 L of high flow oxygen, 94% FiO2. Pulmonary is following the patient and recommendations noted. Dr Mancilla Discussed with the patient and the mother about the plan of care and the high risk of her condition and refusal of care. 02/13/2021; patient was on 30 L of high flow oxygen with FiO2 of 90%. Pulmonary is following the patient. Continue [facility] [place]. Prognosis is guarded. 02/14/2021; patient is on 30 L of high flow oxygen with FiO2 of 90%. Continue inpatient care. 02/15/2021; patient was alert and oriented. Patient states she is feeling okay today. Patient is on 30 L of high flow oxygen with FiO2 of 90%. Patient was given Lasix yesterday. Wean as tolerated. 02/16/2021; patient was alert and oriented. Patient states she is feeling better . Patient is on 25 L of high flow oxygen with FiO2 of 75%. Wean oxygen as tolerated. 02/17: Continue supportive care. Continue to wean as tolerated. Blood sugar 251 mildly elevated will adjust insulin for better control as patient still on steroids Lasix today per Pulmonary no indication to wean steroids until lower FiO2 obtained. 02/18: Agree with intermittent Lasix. Discussed with case management about possible LTAC no Medicaid bed available per documentation. We will continue to follow for now we will continue aggressive weaning of oxygen. 02/19: Patient continues on high flow receiving intermittent Lasix with pulmonary guidance. Continue current management and weaning off oxygen. Continue passive range of motion while in bed. Fall precautions. Severe COVID-19 pneumonia Acute hypoxic respiratory failure Obesity Schizophrenia Leukocytosis Hyperglycemia Schizophrenia Hypernatremia Hypercholermia -CCM, infectious disease, psychiatry consulted, appreciate recommendations -COVID-19 PCR positive -Droplet/contact isolation -Remdesivir, azithromycin, ceftriaxone, dexamethasone (twice daily dosing) -s/p Actemra -Wean supplemental oxygen as tolerated, pulmonary hygiene -Prone as tolerated -Trend COVID-19 inflammatory markers for risk stratification, CBC, CMP -SSI, Lantus -01/18 bilateral lower extremity Doppler ultrasound negative for DVT -01/17 CTA shows no evidence of pulmonary embolism, extensive bilateral pneumonia, hepatomegaly with hepatic steatosis History Interval history: Patient seen and examined confused, although she knows where she is at she is still confused still person and time 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 Hospitalist Physical - Physical exam Narrative exam: Patient was 25 L of oxygen with FiO2 of 55%. Saturating 92% The patient appeared well nourished and normally developed. Vital signs as documented. Head exam is unremarkable. No scleral icterus . Neck is without jugular venous distension, thyromegaly, or carotid bruits. Lungs decreased air entry on both lungs Cardiac exam reveals regular rate and Rhythm. Abdominal exam reveals normal bowel sounds, nontender, no organomegaly. Extremities are nonedematous and both femoral and pedal pulses are normal. [employer]: Patient was alert and oriented. X1 to person but confused place and time - Constitutional Vitals: Temp Pulse Resp BP Pulse Ox 97.9 F 70 18 129/64 93 02/19/21 05:04 02/19/21 09:32 02/19/21 05:04 02/19/21 09:32 02/19/21 08:55 General appearance: Present: no acute distress, well-nourished HEART Score - HEART Score Troponin: Troponin T < 0.010 ng/mL (0.00-0.029) 01/17/21 16:41 Results - Labs CBC & Chem 7: 02/17/21 06:53 02/17/21 06:53 Labs: Laboratory Last Values WBC 6.3 K/mm3 (4.5-11.0) 02/17/21 06:53 RBC 4.35 M/mm3 (3.65-5.03) 02/17/21 06:53 Hgb 10.3 gm/dl (10.1-14.3) 02/17/21 06:53 Hct 34.0 % (30.3-42.9) 02/17/21 06:53 MCV 78 fl (79-97) L 02/17/21 06:53 MCH 24 pg (28-32) L 02/17/21 06:53 MCHC 30 % (30-34) 02/17/21 06:53 RDW 18.9 % (13.2-15.2) H 02/17/21 06:53 Plt Count 309 K/mm3 (140-440) 02/17/21 06:53 Lymph % (Auto) 44.9 % (13.4-35.0) H 02/02/21 07:56 [place] % (Auto) 9.2 % (0.0-7.3) H 02/02/21 07:56 Eos % (Auto) 3.6 % (0.0-4.3) 02/02/21 07:56 Baso % (Auto) 0.3 % (0.0-1.8) 02/02/21 07:56 Lymph # (Auto) 1.4 K/mm3 (1.2-5.4) 02/02/21 07:56 [place] # (Auto) 0.3 K/mm3 (0.0-0.8) 02/02/21 07:56 Eos # (Auto) 0.1 K/mm3 (0.0-0.4) 02/02/21 07:56 Baso # (Auto) 0.0 K/mm3 (0.0-0.1) 02/02/21 07:56 Add Manual Diff Complete 01/19/21 05:11 Total Counted 100 01/19/21 05:11 Seg Neutrophils % 42.0 % (40.0-70.0) 02/02/21 07:56 Seg Neuts % (Manual) 88.0 % (40.0-70.0) H 01/19/21 05:11 Lymphocytes % (Manual) 10.0 % (13.4-35.0) L 01/19/21 05:11 Monocytes % (Manual) 2.0 % (0.0-7.3) 01/19/21 05:11 Nucleated RBC % Not Reportable 01/19/21 05:11 Seg Neutrophils # 1.3 K/mm3 (1.8-7.7) L 02/02/21 07:56 Seg Neutrophils # Man 12.5 K/mm3 (1.8-7.7) H 01/19/21 05:11 Band Neutrophils # 0.0 K/mm3 01/19/21 05:11 Lymphocytes # (Manual) 1.4 K/mm3 (1.2-5.4) 01/19/21 05:11 Abs React Lymphs (Man) 0.0 K/mm3 01/19/21 05:11 Monocytes # (Manual) 0.3 K/mm3 (0.0-0.8) 01/19/21 05:11 Eosinophils # (Manual) 0.0 K/mm3 (0.0-0.4) 01/19/21 05:11 Basophils # (Manual) 0.0 K/mm3 (0.0-0.1) 01/19/21 05:11 Metamyelocytes # 0.0 K/mm3 01/19/21 05:11 Myelocytes # 0.0 K/mm3 01/19/21 05:11 Promyelocytes # 0.0 K/mm3 01/19/21 05:11 Blast Cells # 0.0 K/mm3 01/19/21 05:11 WBC Morphology Not Reportable 01/19/21 05:11 Hypersegmented Neuts Not Reportable 01/19/21 05:11 Hyposegmented Neuts Not Reportable 01/19/21 05:11 Hypogranular Neuts Not Reportable 01/19/21 05:11 Smudge Cells Not Reportable 01/19/21 05:11 Toxic Granulation Not Reportable 01/19/21 05:11 Toxic Vacuolation Not Reportable 01/19/21 05:11 Dohle Bodies Not Reportable 01/19/21 05:11 Pelger-Huet Anomaly Not Reportable 01/19/21 05:11 Inder Rods Not Reportable 01/19/21 05:11 Platelet Estimate Consistent w auto 01/19/21 05:11 Clumped Platelets Not Reportable 01/19/21 05:11 Plt Clumps, EDTA Not Reportable 01/19/21 05:11 Large Platelets Not Reportable 01/19/21 05:11 Giant Platelets Not Reportable 01/19/21 05:11 Platelet Satelliting Not Reportable 01/19/21 05:11 Plt Morphology Comment Not Reportable 01/19/21 05:11 RBC Morphology Not Reportable 01/19/21 05:11 Dimorphic RBCs Not Reportable 01/19/21 05:11 Polychromasia Not Reportable 01/19/21 05:11 Hypochromasia 1+ 01/19/21 05:11 Poikilocytosis Not Reportable 01/19/21 05:11 Anisocytosis Not Reportable 01/19/21 05:11 Microcytosis Not Reportable 01/19/21 05:11 Macrocytosis Not Reportable 01/19/21 05:11 Spherocytes Not Reportable 01/19/21 05:11 Pappenheimer Bodies Not Reportable 01/19/21 05:11 Sickle Cells Not Reportable 01/19/21 05:11 Target Cells Not Reportable 01/19/21 05:11 Tear Drop Cells Not Reportable 01/19/21 05:11 Ovalocytes Not Reportable 01/19/21 05:11 Helmet Cells Not Reportable 01/19/21 05:11 [place] Bodies Not Reportable 01/19/21 05:11 [place] Rings Not Reportable 01/19/21 05:11 Giorgio Cells Not Reportable 01/19/21 05:11 Bite Cells Not Reportable 01/19/21 05:11 Crenated Cell Not Reportable 01/19/21 05:11 Elliptocytes Not Reportable 01/19/21 05:11 Acanthocytes (Spur) Not Reportable 01/19/21 05:11 Rouleaux Not Reportable 01/19/21 05:11 Hemoglobin C Crystals Not Reportable 01/19/21 05:11 Schistocytes Not Reportable 01/19/21 05:11 Malaria parasites Not Reportable 01/19/21 05:11 Chai Bodies Not Reportable 01/19/21 05:11 Hem Pathologist Commnt No 01/19/21 05:11 PT 13.6 Sec. (12.2-14.9) 02/04/21 14:52 INR 1.06 (0.87-1.13) 02/04/21 14:52 APTT 30.7 Sec. (24.2-36.6) 02/04/21 14:52 D-Dimer 1884.49 ng/mlDDU (0-234) H 01/28/21 08:46 ABG pH 7.309 pH Units (7.350-7.450) L 02/10/21 09:30 ABG pCO2 59.4 mm Hg 02/10/21 09:30 ABG pO2 71.2 mm Hg (80.0-90.0) L 02/10/21 09:30 ABG HCO3 29.1 mmol/L (20.0-26.0) H 02/10/21 09:30 ABG O2 Saturation 92.4 % (95.0-99.0) L 02/10/21 09:30 ABG O2 Content 14.2 (0.0-44) 02/10/21 09:30 ABG Base Excess 1.8 mmol/L (-2.0-3.0) 02/10/21 09:30 ABG Hemoglobin 11.2 gm/dl (12.0-16.0) L 02/10/21 09:30 ABG Carboxyhemoglobin 1.8 % (0.0-5.0) 02/10/21 09:30 ABG Methemoglobin 0.6 % (0.0-1.5) 02/10/21 09:30 Oxyhemoglobin 90.2 % (95.0-99.0) L 02/10/21 09:30 FiO2 100 % 02/10/21 09:30 Sodium 139 mmol/L (137-145) 02/17/21 06:53 Potassium 4.4 mmol/L (3.6-5.0) 02/17/21 06:53 Chloride 99.2 mmol/L (98-107) 02/17/21 06:53 Carbon Dioxide 31 mmol/L (22-30) H 02/17/21 06:53 Anion Gap 13 mmol/L 02/17/21 06:53 BUN 20 mg/dL (7-17) H 02/17/21 06:53 Creatinine 0.4 mg/dL (0.6-1.2) L 02/17/21 06:53 Estimated GFR > 60 ml/min 02/17/21 06:53 BUN/Creatinine Ratio 50 % 02/17/21 06:53 Glucose 238 mg/dL (65-100) H 02/17/21 06:53 POC Glucose 247 mg/dL (70-105) H 02/19/21 08:22 Lactic Acid 1.70 mmol/L (0.7-2.0) 01/17/21 16:41 Calcium 8.6 mg/dL (8.4-10.2) 02/17/21 06:53 Ferritin 797.7 ng/mL (10.0-200.0) H 01/28/21 08:46 Total Bilirubin 0.30 mg/dL (0.1-1.2) 01/21/21 11:29 AST 34 units/L (5-40) 01/21/21 11:29 ALT 38 units/L (7-56) 01/21/21 11:29 Alkaline Phosphatase 117 units/L (35-129) 01/21/21 11:29 Ammonia 43.0 umol/L (25-60) 02/04/21 14:52 Lactate Dehydrogenase 556 units/L (91-180) H 01/28/21 08:46 Troponin T < 0.010 ng/mL (0.00-0.029) 01/17/21 16:41 C-Reactive Protein 0.20 mg/dL (0.00-1.30) 01/28/21 08:46 NT-Pro-B Natriuret Pep 40.88 pg/mL (0-900) 01/17/21 16:41 Total Protein 7.3 g/dL (6.3-8.2) 01/21/21 11:29 Albumin 3.4 g/dL (3.9-5) L 01/21/21 11:29 Albumin/Globulin Ratio 0.9 % 01/21/21 11:29 Procalcitonin 0.39 ng/mL (<0.15) 01/17/21 17:46 Coronavirus (PCR) Negative (Negative) 02/11/21 09:10 Estrada/IV: Voiding Method Diaper Active Medications - Current Medications Current Medications: Generic Name Dose Route Start Last Admin Trade Name Freq PRN Reason Stop Dose Admin Albuterol 2 puff 02/17/21 19:51 Albuterol 8.5 Gm Mdi Inhalation IH Q4HRT PRN Shortness Of Breath Apixaban 2.5 mg 02/04/21 22:00 02/19/21 09:33 Apixaban 2.5 Mg Tab PO 2.5 mg Q12HR PJ Administration Protocol Aripiprazole 15 mg 01/31/21 13:00 02/19/21 09:39 Aripiprazole 15 Mg Tab PO 15 mg QDAY PJ Administration Ascorbic Acid 1,000 mg 02/04/21 10:00 02/19/21 09:33 Ascorbic Acid 500 Mg Tab PO 1,000 mg BID PJ Administration Cholecalciferol 5,000 unit 02/04/21 10:00 02/19/21 09:33 Cholecalciferol (Vit D3) 5,000 Unit Tab PO 5,000 unit DAILY PJ Administration Divalproex Sodium 500 mg 01/31/21 12:00 02/19/21 09:33 Divalproex Er 500 Mg Tab PO 500 mg QDAY PJ Administration Famotidine 20 mg 01/18/21 10:00 02/19/21 09:32 Famotidine 20 Mg Tab PO 20 mg BID PJ Administration Hydralazine HCl 10 mg 01/18/21 00:38 02/14/21 06:22 Hydralazine 20 Mg/1 Ml Inj IV 10 mg Q6H PRN Administration htn Hydromorphone HCl 0.5 mg 01/20/21 11:00 02/18/21 07:55 Hydromorphone 1 Mg/1 Ml Inj IV 0.5 mg Q6H PRN Administration Pain , Severe (7-10) Hydrophilic Ointment 1 applic 02/03/21 12:00 Petrolatum,White 30 Gm Oint TP PRN PRN Skin Irritation Insulin Glargine 25 units 02/11/21 22:00 02/18/21 22:37 Insulin Glargine 100 Units/Ml SUB-Q 25 units QHS PJ Administration Insulin Human Lispro 0 unit 02/01/21 11:30 02/19/21 08:30 Insulin Lispro 100 Unit/Ml SUB-Q 4 unit ACHS PJ Administration Protocol Methylprednisolone Sodium Succinate 40 mg 02/10/21 14:00 02/19/21 06:10 Methylprednisolone Sod Succinate 40 Mg/1 Ml Inj IV 40 mg Q8HR PJ Administration Metoprolol Tartrate 12.5 mg 02/01/21 12:00 02/19/21 09:32 Metoprolol Tartrate 25 Mg Tab PO 12.5 mg BID PJ Administration Mirtazapine 7.5 mg 01/21/21 22:00 02/18/21 22:35 Mirtazapine 15 Mg Tab PO 7.5 mg QHS PJ Administration Oxymetazoline HCl 2 spray 02/03/21 12:00 02/03/21 13:17 Oxymetazoline 0.05% Nasal [place] NS 2 spray Q12H PRN Administration Congestion Paliperidone 6 mg 01/31/21 13:00 02/19/21 09:39 Paliperidone Er 3 Mg Tab PO 6 mg QDAY JP Administration Sodium Chloride 10 ml 01/18/21 10:00 02/19/21 09:41 Sodium Chloride 0.9% 10 Ml Flush Syringe IV 10 ml BID PJ Administration Zinc Sulfate 220 mg 02/04/21 10:00 02/19/21 09:32 Zinc Sulfate 220 Mg Cap PO 220 mg QDAY PJ Administration Nutrition/Malnutrition Assess - Dietary Evaluation Nutrition/Malnutrition Findings: Nutrition Notes Start: 01/24/21 10:40 Freq: Status: Active Protocol: Document 02/18/21 10:32 AL (Rec: 02/18/21 10:36 AL [id number]) Co-Sign 02/18/21 10:32 LP Nutrition Notes Initial or Follow up Brief Note Current Diagnosis Respiratory Failure Other Pertinent Diagnosis pneu, AMS Current Diet Cardiac/Consistent CHO Height 5 ft 4 in Weight 94 kg Laura Body Weight (kg) 54.54 BMI 35.5 Weight Status Obese Subjective/Other Information F/u for stable intakes.Per ADL and pt, she is tolerating meals at 75-100% and has a stable appetite. She states eating "very well." Nutrition Intervention Anticipated Discharge Needs: Cardiac/Consistent CHO Revisit per MD consult or patient Sign Off request:
[2021-02-19] MEDS: MIRTAZAPINE 15 MG TAB PO SCH (22:11)
[2021-02-19] MEDS: INSULIN GLARGINE 100 UNITS/ML SUB-Q SCH (22:19)
[2021-02-20] MEDS: methylPREDNISolone Sod Succinate 40 MG/1 ML INJ IV SCH ×3 (06:04→22:40)
[2021-02-20] MEDS: INSULIN LISPRO 100 UNIT/ML SUB-Q SCH ×4 (08:17→22:40)
--- NOTE | 2021-02-20 08:46 | Progress Note ---
Assessment and Plan 55 y/o female admitted with acute respiratory failure secondary to pneumonia, positive for Sars CoV2 02/20/21: Lasix again today patient is doing very well with this. would recommend checking a chemistry to make sure potassium and renal function are still ok. Continue aggressive weaning of HFNC. Close to a point where we can start weaning steroids. 02/19/21: Lasix 40mg IV again today. Patient is tolerating well. No weaning of steroids just yet but almost off HFNC. Once off, can start to wean. Still would send out referrals to LTACH just in case. Will Continue to follow with you. Continue to wean for sats >88% 02/18/21: Lasix 40mg IV x1 today. Continue to wean FiO2 for sats >88%. Suggest asking CM if patient would be a good LTACH candidate. Continue steroids for now. Will continue to follow. 02/17/21: Lasix again today. Will start to wean steroids once on lower liter flow of oxygen. Not concerned about elevated bicarb on chemistry and does not need diamox therapy at this time. Will continue to follow. 02/16/21: Lasix again today. Sats improving and oxygen requirement is coming down. Continue steroids. Last chemistry was several days ago. Will check again in am. may need BID lasix. 02/15/21: Lasix today. Continue current dose of steroids. Prone if possible. 02/14/21: lasix again today. Prone if possible. Continue steroids. Guarded Prognosis 02/13/21: ordered more lasix for today. Monitor strict I/O. Prone if patient will allow. Continue steroids. 02/12/18: continue lasix therapy daily. Prone if possible. Guarded prongosis. continue steroids 02/11/21: [facility] has ordered lasix daily for 3 days, will continue to monitor. May need to give an additional dose later tonight. Long discussion at bedside this am about he importance of wearing bipap at night and what that means to her overall health. Will discuss with family too. Overall prognosis is very guarded. Will do our best to not intubate this patient given her morbid obesity as this would increase her mortality rate tremendously. Please continue to document refusal of therapy when appropriate. 02/10/21: Lasix today, 40 IV. Will attempt precedex to see if this will help with mental state and cooperation in care. Will also restart steroids but use solumedrol 40q8 dosing. May need to consider adding back the Haldol PRN as well. Guarded prognosis. Will attempt our best to not intubate this patient as her mortality would be extremely high if intubated given her morbid obesity. 02/02/21: Lasix again today. Patient refuses to prone. Guarded prognosis. 02/01/21: Will give another 40 of lasix today. Will speak with RT about being more aggressive with weaning of oxygen. Prone if possible. 01/31/21: Increased lasix to 40 today. Prone if possible. 01/30/21: Lasix 20mg IV today. Continue Antipsychotic therapy management. Prone as tolerated if patient willing. 01/29/21: Will give lasix again today. Will change Haldol to IM since patient is refusing PO meds. 01/28/21: Will give lasix again today. Continue all other therapies. Prone if patient will and tolerate. STeroids. Guarded prognosis. 01/20/21: Gave Haldol 5 and patient has calmed down and become more appropriate, allowing us to place bipap back on. COntinue steroids and remdesivir therapy. Doubt patient will be able to prone successfully. Will try lasix today again to see if this helps. Very very guarded prognosis. 01/19/21: Continue decadron, suggest increase given patient body habitus to BID. ID consult for Remdesivir therapy and to see if she is a candidate for Actemra. Prone as tolerated during the day and sleep prone at night. Will give lasix again today. Guarded prognosis. 1. Prone 2. Lasix 3. Agree with steroids 4. Follow up COVID testing Guarded prognosis Subjective Date of service: 02/20/21 Principal diagnosis: Covid-19 Interval history: Patient continues to wean nicely. Now down to 15 liters and 50% with good sats. Objective Vital Signs - 12hr 02/19/21 02/19/21 02/20/21 21:05 21:13 00:58 Temperature 98.6 F Pulse Rate 77 62 Respiratory 20 Rate Blood Pressure 143/68 O2 Sat by Pulse 94 97 Oximetry 02/20/21 02/20/21 03:08 05:00 Temperature 98.5 F Pulse Rate 65 Respiratory 16 Rate Blood Pressure 139/74 O2 Sat by Pulse 96 94 Oximetry Constitutional: no acute distress, alert Eyes: non-icteric ENT: oropharynx moist Neck: supple, other (large in circumference) Effort: normal Ascultation: Bilateral: clear, diminished breath sounds Cardiovascular: other (tachy, RR; no mrg) Gastrointestinal: normoactive bowel sounds, soft, non-tender, non-distended Integumentary: normal Extremities: no cyanosis, no edema, pink and warm Neurologic: normal mental status, non-focal exam, pupils equal and round Psychiatric: mood appropriate, affect normal CBC and BMP: 02/17/21 06:53 02/17/21 06:53 ABG, PT/INR, D-dimer: ABG ABG pH 7.309 pH Units (7.350-7.450) L 02/10/21 09:30 ABG pCO2 59.4 mm Hg 02/10/21 09:30 ABG pO2 71.2 mm Hg (80.0-90.0) L 02/10/21 09:30 ABG O2 Saturation 92.4 % (95.0-99.0) L 02/10/21 09:30 PT/INR, D-dimer PT 13.6 Sec. (12.2-14.9) 02/04/21 14:52 INR 1.06 (0.87-1.13) 02/04/21 14:52 D-Dimer 1884.49 ng/mlDDU (0-234) H 01/28/21 08:46 Abnormal lab findings: Abnormal Labs 01/17/21 01/17/21 01/17/21 09:25 16:41 16:41 WBC RBC 5.23 H Hgb MCV 76 L MCH 24 L RDW Plt Count Lymph % (Auto) 9.4 L [place] % (Auto) Lymph # (Auto) 0.8 L Seg Neutrophils % 85.4 H Seg Neuts % (Manual) Lymphocytes % (Manual) Seg Neutrophils # Seg Neutrophils # Man D-Dimer ABG pH ABG pO2 ABG HCO3 ABG O2 Saturation ABG Base Excess ABG Hemoglobin Oxyhemoglobin Sodium 128 L Chloride 90.8 L Carbon Dioxide BUN Creatinine Glucose 372 H POC Glucose Calcium Ferritin AST 98 H Lactate Dehydrogenase C-Reactive Protein Total Protein Albumin 3.2 L Coronavirus (PCR) Positive A 01/17/21 01/17/2101/17/21 17:46 17:46 17:46 WBC RBC Hgb MCV MCH RDW Plt Count Lymph % (Auto) [place] % (Auto) Lymph # (Auto) Seg Neutrophils % Seg Neuts % (Manual) Lymphocytes % (Manual) Seg Neutrophils # Seg Neutrophils # Man D-Dimer 1058.54 H ABG pH ABG pO2 ABG HCO3 ABG O2 Saturation ABG Base Excess ABG Hemoglobin Oxyhemoglobin Sodium Chloride Carbon Dioxide BUN Creatinine Glucose 369 H POC Glucose Calcium Ferritin 668.4 H AST Lactate Dehydrogenase 519 H C-Reactive Protein 19.20 H Total Protein Albumin Coronavirus (PCR) 01/18/21 01/18/21 01/19/21 09:01 17:18 05:11 WBC 14.2 H RBC Hgb MCV 74 L MCH 23 L RDW Plt Count Lymph % (Auto) [place] % (Auto) Lymph # (Auto) Seg Neutrophils % Seg Neuts % (Manual) 88.0 H Lymphocytes % (Manual) 10.0 L Seg Neutrophils # Seg Neutrophils # Man 12.5 H D-Dimer ABG pH 7.461 H ABG pO2 53.1 L ABG HCO3 ABG O2 Saturation 89.4 L ABG Base Excess ABG Hemoglobin Oxyhemoglobin 88.0 L Sodium 132 L Chloride 93.6 L Carbon Dioxide BUN 18 H Creatinine Glucose 367 H POC Glucose Calcium 7.8 L Ferritin AST Lactate Dehydrogenase C-Reactive Protein Total Protein Albumin Coronavirus (PCR) 01/19/21 01/19/21 01/19/21 05:11 11:06 14:43 WBC RBC Hgb MCV MCH RDW Plt Count Lymph % (Auto) [place] % (Auto) Lymph # (Auto) Seg Neutrophils % Seg Neuts % (Manual) Lymphocytes % (Manual) Seg Neutrophils # Seg Neutrophils # Man D-Dimer ABG pH ABG pO2 ABG HCO3 ABG O2 Saturation ABG Base Excess ABG Hemoglobin Oxyhemoglobin Sodium Chloride Carbon Dioxide BUN 18 H Creatinine Glucose 304 H 379 H POC Glucose 382 H Calcium 8.3 L Ferritin AST 92 H 96 H Lactate Dehydrogenase C-Reactive Protein Total Protein Albumin 3.0 L 3.0 L Coronavirus (PCR) 01/19/21 01/19/21 01/20/21 16:18 22:18 07:31 WBC RBC Hgb MCV MCH RDW Plt Count Lymph % (Auto) [place] % (Auto) Lymph # (Auto) Seg Neutrophils % Seg Neuts % (Manual) Lymphocytes % (Manual) Seg Neutrophils # Seg Neutrophils # Man D-Dimer ABG pH ABG pO2 ABG HCO3 ABG O2 Saturation ABG Base Excess ABG Hemoglobin Oxyhemoglobin Sodium Chloride Carbon Dioxide BUN Creatinine Glucose POC Glucose 374 H 341 H 344 H Calcium Ferritin AST Lactate Dehydrogenase C-Reactive Protein Total Protein Albumin Coronavirus (PCR) 01/20/21 01/20/21 01/20/21 07:33 12:14 13:54 WBC RBC Hgb MCV MCH RDW Plt Count Lymph % (Auto) [place] % (Auto) Lymph # (Auto) Seg Neutrophils % Seg Neuts % (Manual) Lymphocytes % (Manual) Seg Neutrophils # Seg Neutrophils # Man D-Dimer ABG pH ABG pO2 ABG HCO3 ABG O2 Saturation ABG Base Excess ABG Hemoglobin Oxyhemoglobin Sodium Chloride Carbon Dioxide BUN 32 H 31 H Creatinine Glucose 343 H 396 H POC Glucose 365 H Calcium Ferritin AST 57 H 54 H Lactate Dehydrogenase C-Reactive Protein Total Protein 8.3 H Albumin 2.7 L 3.1 L Coronavirus (PCR) 01/20/21 01/20/21 01/21/21 18:28 21:25 04:45 WBC RBC Hgb MCV MCH RDW Plt Count Lymph % (Auto) [place] % (Auto) Lymph # (Auto) Seg Neutrophils % Seg Neuts % (Manual) Lymphocytes % (Manual) Seg Neutrophils # Seg Neutrophils # Man D-Dimer ABG pH ABG pO2 ABG HCO3 ABG O2 Saturation ABG Base Excess ABG Hemoglobin Oxyhemoglobin Sodium Chloride Carbon Dioxide 31 H BUN 41 H Creatinine Glucose 377 H POC Glucose 403 H 340 H Calcium Ferritin AST Lactate Dehydrogenase C-Reactive Protein Total Protein 8.3 H Albumin 3.0 L Coronavirus (PCR) 01/21/21 01/21/21 01/21/21 04:45 04:45 04:45 WBC RBC Hgb MCV MCH RDW Plt Count Lymph % (Auto) [place] % (Auto) Lymph # (Auto) Seg Neutrophils % Seg Neuts % (Manual) Lymphocytes % (Manual) Seg Neutrophils # Seg Neutrophils # Man D-Dimer > 03112 H ABG pH ABG pO2 ABG HCO3 ABG O2 Saturation ABG Base Excess ABG Hemoglobin Oxyhemoglobin Sodium Chloride Carbon Dioxide BUN Creatinine Glucose POC Glucose Calcium Ferritin 1688.0 H AST Lactate Dehydrogenase 649 H C-Reactive Protein 17.00 H Total Protein Albumin Coronavirus (PCR) 01/21/21 01/21/21 01/21/21 09:45 11:29 12:09 WBC RBC Hgb MCV MCH RDW Plt Count Lymph % (Auto) [place] % (Auto) Lymph # (Auto) Seg Neutrophils % Seg Neuts % (Manual) Lymphocytes % (Manual) Seg Neutrophils # Seg Neutrophils # Man D-Dimer ABG pH ABG pO2 ABG HCO3 ABG O2 Saturation ABG Base Excess ABG Hemoglobin Oxyhemoglobin Sodium 151 H Chloride Carbon Dioxide BUN 40 H Creatinine Glucose 412 H POC Glucose 401 H 372 H Calcium Ferritin AST Lactate Dehydrogenase C-Reactive Protein Total Protein Albumin 3.4 L Coronavirus (PCR) 01/21/21 01/21/21 01/22/21 18:26 21:09 02:00 WBC RBC Hgb MCV MCH RDW Plt Count Lymph % (Auto) [place] % (Auto) Lymph # (Auto) Seg Neutrophils % Seg Neuts % (Manual) Lymphocytes % (Manual) Seg Neutrophils # Seg Neutrophils # Man D-Dimer ABG pH ABG pO2 ABG HCO3 ABG O2 Saturation ABG Base Excess ABG Hemoglobin Oxyhemoglobin Sodium Chloride Carbon Dioxide BUN Creatinine Glucose POC Glucose 376 H 322 H 231 H Calcium Ferritin AST Lactate Dehydrogenase C-Reactive Protein Total Protein Albumin Coronavirus (PCR) 01/22/21 01/22/21 01/22/21 05:24 08:25 08:25 WBC RBC 5.44 H Hgb MCV 75 L MCH 23 L RDW 15.5 H Plt Count Lymph % (Auto) [place] % (Auto) Lymph # (Auto) Seg Neutrophils % Seg Neuts % (Manual) Lymphocytes % (Manual) Seg Neutrophils # Seg Neutrophils # Man D-Dimer ABG pH ABG pO2 ABG HCO3 ABG O2 Saturation ABG Base Excess ABG Hemoglobin Oxyhemoglobin Sodium 155 H Chloride 112.4 H Carbon Dioxide BUN 33 H Creatinine Glucose 274 H POC Glucose 275 H Calcium Ferritin AST Lactate Dehydrogenase C-Reactive Protein Total Protein Albumin Coronavirus (PCR) 01/22/21 01/22/21 01/22/21 11:53 16:03 21:41 WBC RBC Hgb MCV MCH RDW Plt Count Lymph % (Auto) [place] % (Auto) Lymph # (Auto) Seg Neutrophils % Seg Neuts % (Manual) Lymphocytes % (Manual) Seg Neutrophils # Seg Neutrophils # Man D-Dimer ABG pH ABG pO2 ABG HCO3 ABG O2 Saturation ABG Base Excess ABG Hemoglobin Oxyhemoglobin Sodium Chloride Carbon Dioxide BUN Creatinine Glucose POC Glucose 265 H 293 H 279 H Calcium Ferritin AST Lactate Dehydrogenase C-Reactive Protein Total Protein Albumin Coronavirus (PCR) 01/23/21 01/23/21 01/23/21 02:03 05:46 05:59 WBC RBC Hgb MCV MCH RDW Plt Count Lymph % (Auto) [place] % (Auto) Lymph # (Auto) Seg Neutrophils % Seg Neuts % (Manual) Lymphocytes % (Manual) Seg Neutrophils # Seg Neutrophils # Man D-Dimer ABG pH ABG pO2 ABG HCO3 ABG O2 Saturation ABG Base Excess ABG Hemoglobin Oxyhemoglobin Sodium Chloride Carbon Dioxide BUN Creatinine Glucose POC Glucose 268 H 303 H Calcium Ferritin 1116.0 H AST Lactate Dehydrogenase C-Reactive Protein Total Protein Albumin Coronavirus (PCR) 01/23/21 01/23/21 01/23/21 05:59 07:42 09:11 WBC RBC Hgb MCV MCH RDW Plt Count Lymph % (Auto) [place] % (Auto) Lymph # (Auto) Seg Neutrophils % Seg Neuts % (Manual) Lymphocytes % (Manual) Seg Neutrophils # Seg Neutrophils # Man D-Dimer ABG pH ABG pO2 ABG HCO3 ABG O2 Saturation ABG Base Excess ABG Hemoglobin Oxyhemoglobin Sodium Chloride Carbon Dioxide BUN Creatinine Glucose POC Glucose 291 H 285 H Calcium Ferritin AST Lactate Dehydrogenase 680 H C-Reactive Protein 5.80 H Total Protein Albumin Coronavirus (PCR) 01/23/21 01/23/21 01/23/21 14:06 17:05 17:59 WBC RBC Hgb MCV MCH RDW Plt Count Lymph % (Auto) [place] % (Auto) Lymph # (Auto) Seg Neutrophils % Seg Neuts % (Manual) Lymphocytes % (Manual) Seg Neutrophils # Seg Neutrophils # Man D-Dimer ABG pH ABG pO2 ABG HCO3 ABG O2 Saturation ABG Base Excess ABG Hemoglobin Oxyhemoglobin Sodium Chloride Carbon Dioxide BUN Creatinine Glucose POC Glucose 228 H 300 H 278 H Calcium Ferritin AST Lactate Dehydrogenase C-Reactive Protein Total Protein Albumin Coronavirus (PCR) 01/23/21 01/24/21 01/24/21 21:43 02:14 05:15 WBC RBC Hgb MCV MCH RDW Plt Count Lymph % (Auto) [place] % (Auto) Lymph # (Auto) Seg Neutrophils % Seg Neuts % (Manual) Lymphocytes % (Manual) Seg Neutrophils # Seg Neutrophils # Man D-Dimer ABG pH ABG pO2 ABG HCO3 ABG O2 Saturation ABG Base Excess ABG Hemoglobin Oxyhemoglobin Sodium Chloride Carbon Dioxide BUN Creatinine Glucose POC Glucose 223 H 427 H 392 H Calcium Ferritin AST Lactate Dehydrogenase C-Reactive Protein Total Protein Albumin Coronavirus (PCR) 01/24/21 01/24/21 01/24/21 07:03 07:03 09:10 WBC RBC 5.49 H Hgb MCV 75 L MCH 23 L RDW Plt Count Lymph % (Auto) 7.0 L [place] % (Auto) Lymph # (Auto) 0.5 L Seg Neutrophils % 86.1 H Seg Neuts % (Manual) Lymphocytes % (Manual) Seg Neutrophils # Seg Neutrophils # Man D-Dimer ABG pH ABG pO2 ABG HCO3 ABG O2 Saturation ABG Base Excess ABG Hemoglobin Oxyhemoglobin Sodium 149 H Chloride 111.4 H Carbon Dioxide BUN 24 H Creatinine Glucose 339 H POC Glucose 284 H Calcium Ferritin AST Lactate Dehydrogenase C-Reactive Protein Total Protein Albumin Coronavirus (PCR) 01/24/21 01/24/21 01/24/21 13:47 18:30 21:58 WBC RBC Hgb MCV MCH RDW Plt Count Lymph % (Auto) [place] % (Auto) Lymph # (Auto) Seg Neutrophils % Seg Neuts % (Manual) Lymphocytes % (Manual) Seg Neutrophils # Seg Neutrophils # Man D-Dimer ABG pH ABG pO2 ABG HCO3 ABG O2 Saturation ABG Base Excess ABG Hemoglobin Oxyhemoglobin Sodium Chloride Carbon Dioxide BUN Creatinine Glucose POC Glucose 317 H 180 H 262 H Calcium Ferritin AST Lactate Dehydrogenase C-Reactive Protein Total Protein Albumin Coronavirus (PCR) 01/25/21 01/25/21 01/25/21 01:22 05:35 08:36 WBC RBC Hgb MCV MCH RDW Plt Count Lymph % (Auto) [place] % (Auto) Lymph # (Auto) Seg Neutrophils % Seg Neuts % (Manual) Lymphocytes % (Manual) Seg Neutrophils # Seg Neutrophils # Man D-Dimer ABG pH ABG pO2 ABG HCO3 ABG O2 Saturation ABG Base Excess ABG Hemoglobin Oxyhemoglobin Sodium Chloride Carbon Dioxide BUN Creatinine Glucose POC Glucose 280 H 243 H 216 H Calcium Ferritin AST Lactate Dehydrogenase C-Reactive Protein Total Protein Albumin Coronavirus (PCR) 01/25/21 01/25/21 01/25/21 15:14 15:14 15:14 WBC RBC Hgb MCV MCH RDW Plt Count Lymph % (Auto) [place] % (Auto) Lymph # (Auto) Seg Neutrophils % Seg Neuts % (Manual) Lymphocytes % (Manual) Seg Neutrophils # Seg Neutrophils # Man D-Dimer 6312.54 H ABG pH ABG pO2 ABG HCO3 ABG O2 Saturation ABG Base Excess ABG Hemoglobin Oxyhemoglobin Sodium 146 H Chloride 108.1 H Carbon Dioxide BUN 19 H Creatinine Glucose 287 H POC Glucose Calcium 8.3 L Ferritin 869.5 H AST Lactate Dehydrogenase 685 H C-Reactive Protein Total Protein Albumin Coronavirus (PCR) 01/25/21 01/25/21 01/26/21 16:06 21:18 01:47 WBC RBC Hgb MCV MCH RDW Plt Count Lymph % (Auto) [place] % (Auto) Lymph # (Auto) Seg Neutrophils % Seg Neuts % (Manual) Lymphocytes % (Manual) Seg Neutrophils # Seg Neutrophils # Man D-Dimer ABG pH ABG pO2 ABG HCO3 ABG O2 Saturation ABG Base Excess ABG Hemoglobin Oxyhemoglobin Sodium Chloride Carbon Dioxide BUN Creatinine Glucose POC Glucose 267 H 197 H 255 H Calcium Ferritin AST Lactate Dehydrogenase C-Reactive Protein Total Protein Albumin Coronavirus (PCR) 01/26/21 01/26/21 01/26/21 05:23 05:23 05:23 WBC RBC Hgb MCV MCH RDW Plt Count Lymph % (Auto) [place] % (Auto) Lymph # (Auto) Seg Neutrophils % Seg Neuts % (Manual) Lymphocytes % (Manual) Seg Neutrophils # Seg Neutrophils # Man D-Dimer 5809.58 H ABG pH ABG pO2 ABG HCO3 ABG O2 Saturation ABG Base Excess ABG Hemoglobin Oxyhemoglobin Sodium 149 H Chloride 109.3 H Carbon Dioxide BUN 24 H Creatinine Glucose 362 H POC Glucose Calcium Ferritin 877.1 H AST Lactate Dehydrogenase 655 H C-Reactive Protein Total Protein Albumin Coronavirus (PCR) 01/26/21 01/26/21 01/26/21 05:23 06:06 09:28 WBC RBC 5.49 H Hgb MCV 77 L MCH 23 L RDW Plt Count Lymph % (Auto) [place] % (Auto) Lymph # (Auto) 0.8 L Seg Neutrophils % 78.9 H Seg Neuts % (Manual) Lymphocytes % (Manual) Seg Neutrophils # Seg Neutrophils # Man D-Dimer ABG pH ABG pO2 ABG HCO3 ABG O2 Saturation ABG Base Excess ABG Hemoglobin Oxyhemoglobin Sodium Chloride Carbon Dioxide BUN Creatinine Glucose POC Glucose 387 H 308 H Calcium Ferritin AST Lactate Dehydrogenase C-Reactive Protein Total Protein Albumin Coronavirus (PCR) 01/26/21 01/26/21 01/27/21 15:56 21:28 02:51 WBC RBC Hgb MCV MCH RDW Plt Count Lymph % (Auto) [place] % (Auto) Lymph # (Auto) Seg Neutrophils % Seg Neuts % (Manual) Lymphocytes % (Manual) Seg Neutrophils # Seg Neutrophils # Man D-Dimer ABG pH ABG pO2 ABG HCO3 ABG O2 Saturation ABG Base Excess ABG Hemoglobin Oxyhemoglobin Sodium Chloride Carbon Dioxide BUN Creatinine Glucose POC Glucose 172 H 316 H 267 H Calcium Ferritin AST Lactate Dehydrogenase C-Reactive Protein Total Protein Albumin Coronavirus (PCR) 01/27/21 01/27/21 01/27/21 04:22 04:22 04:22 WBC RBC Hgb MCV MCH RDW Plt Count Lymph % (Auto) [place] % (Auto) Lymph # (Auto) Seg Neutrophils % Seg Neuts % (Manual) Lymphocytes % (Manual) Seg Neutrophils # Seg Neutrophils # Man D-Dimer 4046.06 H ABG pH ABG pO2 ABG HCO3 ABG O2 Saturation ABG Base Excess ABG Hemoglobin Oxyhemoglobin Sodium Chloride 107.7 H Carbon Dioxide BUN 30 H Creatinine Glucose 281 H POC Glucose Calcium Ferritin 812.2 H AST Lactate Dehydrogenase 570 H C-Reactive Protein Total Protein Albumin Coronavirus (PCR) 01/27/21 01/27/21 01/27/21 04:22 05:55 12:00 WBC RBC 5.15 H Hgb MCV 76 L MCH 23 L RDW 15.5 H Plt Count Lymph % (Auto) 12.7 L [place] % (Auto) Lymph # (Auto) 0.9 L Seg Neutrophils % 81.3 H Seg Neuts % (Manual) Lymphocytes % (Manual) Seg Neutrophils # Seg Neutrophils # Man D-Dimer ABG pH ABG pO2 ABG HCO3 ABG O2 Saturation ABG Base Excess ABG Hemoglobin Oxyhemoglobin Sodium Chloride Carbon Dioxide BUN Creatinine Glucose POC Glucose 275 H 121 H Calcium Ferritin AST Lactate Dehydrogenase C-Reactive Protein Total Protein Albumin Coronavirus (PCR) 01/27/21 01/27/21 01/28/21 17:32 21:23 02:08 WBC RBC Hgb MCV MCH RDW Plt Count Lymph % (Auto) [place] % (Auto) Lymph # (Auto) Seg Neutrophils % Seg Neuts % (Manual) Lymphocytes % (Manual) Seg Neutrophils # Seg Neutrophils # Man D-Dimer ABG pH ABG pO2 ABG HCO3 ABG O2 Saturation ABG Base Excess ABG Hemoglobin Oxyhemoglobin Sodium Chloride Carbon Dioxide BUN Creatinine Glucose POC Glucose 195 H 179 H 210 H Calcium Ferritin AST Lactate Dehydrogenase C-Reactive Protein Total Protein Albumin Coronavirus (PCR) 01/28/21 01/28/21 01/28/21 05:09 08:44 08:46 WBC RBC Hgb MCV MCH RDW Plt Count Lymph % (Auto) [place] % (Auto) Lymph # (Auto) Seg Neutrophils % Seg Neuts % (Manual) Lymphocytes % (Manual) Seg Neutrophils # Seg Neutrophils # Man D-Dimer 1884.49 H ABG pH ABG pO2 ABG HCO3 ABG O2 Saturation ABG Base Excess ABG Hemoglobin Oxyhemoglobin Sodium Chloride Carbon Dioxide BUN Creatinine Glucose POC Glucose 202 H 191 H Calcium Ferritin AST Lactate Dehydrogenase C-Reactive Protein Total Protein Albumin Coronavirus (PCR) 01/28/21 01/28/21 01/28/21 08:46 08:46 12:18 WBC RBC Hgb MCV MCH RDW Plt Count Lymph % (Auto) [place] % (Auto) Lymph # (Auto) Seg Neutrophils % Seg Neuts % (Manual) Lymphocytes % (Manual) Seg Neutrophils # Seg Neutrophils # Man D-Dimer ABG pH ABG pO2 ABG HCO3 ABG O2 Saturation ABG Base Excess ABG Hemoglobin Oxyhemoglobin Sodium Chloride Carbon Dioxide BUN Creatinine Glucose POC Glucose 221 H Calcium Ferritin 797.7 H AST Lactate Dehydrogenase 556 H C-Reactive Protein Total Protein Albumin Coronavirus (PCR) 01/28/21 01/28/21 01/29/21 18:21 21:45 01:48 WBC RBC Hgb MCV MCH RDW Plt Count Lymph % (Auto) [place] % (Auto) Lymph # (Auto) Seg Neutrophils % Seg Neuts % (Manual) Lymphocytes % (Manual) Seg Neutrophils # Seg Neutrophils # Man D-Dimer ABG pH ABG pO2 ABG HCO3 ABG O2 Saturation ABG Base Excess ABG Hemoglobin Oxyhemoglobin Sodium Chloride Carbon Dioxide BUN Creatinine Glucose POC Glucose 214 H 148 H 248 H Calcium Ferritin AST Lactate Dehydrogenase C-Reactive Protein Total Protein Albumin Coronavirus (PCR) 01/29/21 01/29/21 01/29/21 05:17 10:17 11:39 WBC RBC Hgb MCV MCH RDW Plt Count Lymph % (Auto) [place] % (Auto) Lymph # (Auto) Seg Neutrophils % Seg Neuts % (Manual) Lymphocytes % (Manual) Seg Neutrophils # Seg Neutrophils # Man D-Dimer ABG pH ABG pO2 ABG HCO3 ABG O2 Saturation ABG Base Excess ABG Hemoglobin Oxyhemoglobin Sodium Chloride Carbon Dioxide BUN Creatinine Glucose POC Glucose 256 H 193 H 177 H Calcium Ferritin AST Lactate Dehydrogenase C-Reactive Protein Total Protein Albumin Coronavirus (PCR) 01/29/21 01/29/21 01/30/21 18:06 20:24 06:07 WBC RBC Hgb MCV MCH RDW Plt Count Lymph % (Auto) [place] % (Auto) Lymph # (Auto) Seg Neutrophils % Seg Neuts % (Manual) Lymphocytes % (Manual) Seg Neutrophils # Seg Neutrophils # Man D-Dimer ABG pH ABG pO2 ABG HCO3 ABG O2 Saturation ABG Base Excess ABG Hemoglobin Oxyhemoglobin Sodium Chloride Carbon Dioxide BUN Creatinine Glucose POC Glucose 107 H 114 H 114 H Calcium Ferritin AST Lactate Dehydrogenase C-Reactive Protein Total Protein Albumin Coronavirus (PCR) 01/30/21 01/30/21 01/30/21 12:08 16:11 21:19 WBC RBC Hgb MCV MCH RDW Plt Count Lymph % (Auto) [place] % (Auto) Lymph # (Auto) Seg Neutrophils % Seg Neuts % (Manual) Lymphocytes % (Manual) Seg Neutrophils # Seg Neutrophils # Man D-Dimer ABG pH ABG pO2 ABG HCO3 ABG O2 Saturation ABG Base Excess ABG Hemoglobin Oxyhemoglobin Sodium Chloride Carbon Dioxide BUN Creatinine Glucose POC Glucose 178 H 142 H 244 H Calcium Ferritin AST Lactate Dehydrogenase C-Reactive Protein Total Protein Albumin Coronavirus (PCR) 01/31/21 01/31/21 01/31/21 05:30 06:42 07:50 WBC RBC Hgb MCV MCH RDW Plt Count Lymph % (Auto) [place] % (Auto) Lymph # (Auto) Seg Neutrophils % Seg Neuts % (Manual) Lymphocytes % (Manual) Seg Neutrophils # Seg Neutrophils # Man D-Dimer ABG pH ABG pO2 ABG HCO3 ABG O2 Saturation ABG Base Excess ABG Hemoglobin Oxyhemoglobin Sodium Chloride Carbon Dioxide BUN 20 H Creatinine Glucose 160 H POC Glucose 164 H 152 H Calcium 8.0 L Ferritin AST Lactate Dehydrogenase C-Reactive Protein Total Protein Albumin Coronavirus (PCR) 01/31/21 01/31/21 01/31/21 11:40 16:37 21:01 WBC RBC Hgb MCV MCH RDW Plt Count Lymph % (Auto) [place] % (Auto) Lymph # (Auto) Seg Neutrophils % Seg Neuts % (Manual) Lymphocytes % (Manual) Seg Neutrophils # Seg Neutrophils # Man D-Dimer ABG pH ABG pO2 ABG HCO3 ABG O2 Saturation ABG Base Excess ABG Hemoglobin Oxyhemoglobin Sodium Chloride Carbon Dioxide BUN Creatinine Glucose POC Glucose 129 H 141 H 125 H Calcium Ferritin AST Lactate Dehydrogenase C-Reactive Protein Total Protein Albumin Coronavirus (PCR) 02/01/21 02/01/21 02/01/21 06:26 11:15 16:11 WBC RBC Hgb MCV MCH RDW Plt Count Lymph % (Auto) [place] % (Auto) Lymph # (Auto) Seg Neutrophils % Seg Neuts % (Manual) Lymphocytes % (Manual) Seg Neutrophils # Seg Neutrophils # Man D-Dimer ABG pH ABG pO2 ABG HCO3 ABG O2 Saturation ABG Base Excess ABG Hemoglobin Oxyhemoglobin Sodium Chloride Carbon Dioxide BUN Creatinine Glucose POC Glucose 136 H 260 H 240 H Calcium Ferritin AST Lactate Dehydrogenase C-Reactive Protein Total Protein Albumin Coronavirus (PCR) 02/01/21 02/02/21 02/02/21 22:32 07:15 07:56 WBC 3.1 L RBC Hgb MCV 75 L MCH 23 L RDW Plt Count Lymph % (Auto) 44.9 H [place] % (Auto) 9.2 H Lymph # (Auto) Seg Neutrophils % Seg Neuts % (Manual) Lymphocytes % (Manual) Seg Neutrophils # 1.3 L Seg Neutrophils # Man D-Dimer ABG pH ABG pO2 ABG HCO3 ABG O2 Saturation ABG Base Excess ABG Hemoglobin Oxyhemoglobin Sodium Chloride Carbon Dioxide BUN Creatinine Glucose POC Glucose 298 H 164 H Calcium Ferritin AST Lactate Dehydrogenase C-Reactive Protein Total Protein Albumin Coronavirus (PCR) 02/02/21 02/02/21 02/02/21 07:56 11:35 16:07 WBC RBC Hgb MCV MCH RDW Plt Count Lymph % (Auto) [place] % (Auto) Lymph # (Auto) Seg Neutrophils % Seg Neuts % (Manual) Lymphocytes % (Manual) Seg Neutrophils # Seg Neutrophils # Man D-Dimer ABG pH ABG pO2 ABG HCO3 ABG O2 Saturation ABG Base Excess ABG Hemoglobin Oxyhemoglobin Sodium Chloride Carbon Dioxide 31 H BUN Creatinine 0.4 L Glucose 159 H POC Glucose 297 H 252 H Calcium 8.2 L Ferritin AST Lactate Dehydrogenase C-Reactive Protein Total Protein Albumin Coronavirus (PCR) 02/02/21 02/03/21 02/03/21 22:33 17:04 22:17 WBC RBC Hgb MCV MCH RDW Plt Count Lymph % (Auto) [place] % (Auto) Lymph # (Auto) Seg Neutrophils % Seg Neuts % (Manual) Lymphocytes % (Manual) Seg Neutrophils # Seg Neutrophils # Man D-Dimer ABG pH ABG pO2 ABG HCO3 ABG O2 Saturation ABG Base Excess ABG Hemoglobin Oxyhemoglobin Sodium Chloride Carbon Dioxide BUN Creatinine Glucose POC Glucose 257 H 247 H 278 H Calcium Ferritin AST Lactate Dehydrogenase C-Reactive Protein Total Protein Albumin Coronavirus (PCR) 02/04/21 02/04/21 02/04/21 05:41 07:55 11:56 WBC RBC Hgb MCV MCH RDW Plt Count Lymph % (Auto) [place] % (Auto) Lymph # (Auto) Seg Neutrophils % Seg Neuts % (Manual) Lymphocytes % (Manual) Seg Neutrophils # Seg Neutrophils # Man D-Dimer ABG pH ABG pO2 ABG HCO3 ABG O2 Saturation ABG Base Excess ABG Hemoglobin Oxyhemoglobin Sodium Chloride Carbon Dioxide 31 H BUN 19 H Creatinine 0.5 L Glucose 184 H POC Glucose 182 H 227 H Calcium Ferritin AST Lactate Dehydrogenase C-Reactive Protein Total Protein Albumin Coronavirus (PCR) 02/04/21 02/04/21 02/04/21 12:45 14:52 16:45 WBC 4.0 L RBC Hgb MCV 77 L MCH 24 L RDW 15.5 H Plt Count Lymph % (Auto) [place] % (Auto) Lymph # (Auto) Seg Neutrophils % Seg Neuts % (Manual) Lymphocytes % (Manual) Seg Neutrophils # Seg Neutrophils # Man D-Dimer ABG pH ABG pO2 65.6 L ABG HCO3 30.8 H ABG O2 Saturation 94.0 L ABG Base Excess 5.5 H ABG Hemoglobin 10.3 L Oxyhemoglobin 92.3 L Sodium Chloride Carbon Dioxide BUN Creatinine Glucose POC Glucose 194 H Calcium Ferritin AST Lactate Dehydrogenase C-Reactive Protein Total Protein Albumin Coronavirus (PCR) 02/04/21 02/05/21 02/05/21 22:00 06:55 07:49 WBC RBC Hgb 10.0 L MCV MCH RDW Plt Count Lymph % (Auto) [place] % (Auto) Lymph # (Auto) Seg Neutrophils % Seg Neuts % (Manual) Lymphocytes % (Manual) Seg Neutrophils # Seg Neutrophils # Man D-Dimer ABG pH ABG pO2 ABG HCO3 ABG O2 Saturation ABG Base Excess ABG Hemoglobin Oxyhemoglobin Sodium Chloride Carbon Dioxide BUN Creatinine Glucose POC Glucose 281 H 204 H Calcium Ferritin AST Lactate Dehydrogenase C-Reactive Protein Total Protein Albumin Coronavirus (PCR) 02/05/21 02/05/21 02/05/21 11:23 16:13 16:22 WBC RBC Hgb 10.0 L MCV MCH RDW Plt Count Lymph % (Auto) [place] % (Auto) Lymph # (Auto) Seg Neutrophils % Seg Neuts % (Manual) Lymphocytes % (Manual) Seg Neutrophils # Seg Neutrophils # Man D-Dimer ABG pH ABG pO2 ABG HCO3 ABG O2 Saturation ABG Base Excess ABG Hemoglobin Oxyhemoglobin Sodium Chloride Carbon Dioxide BUN Creatinine Glucose POC Glucose 264 H 202 H Calcium Ferritin AST Lactate Dehydrogenase C-Reactive Protein Total Protein Albumin Coronavirus (PCR) 02/05/21 02/06/21 02/06/21 21:14 04:43 04:43 WBC 4.0 L RBC Hgb 10.0 L MCV 76 L MCH 23 L RDW 15.7 H Plt Count Lymph % (Auto) [place] % (Auto) Lymph # (Auto) Seg Neutrophils % Seg Neuts % (Manual) Lymphocytes % (Manual) Seg Neutrophils # Seg Neutrophils # Man D-Dimer ABG pH ABG pO2 ABG HCO3 ABG O2 Saturation ABG Base Excess ABG Hemoglobin Oxyhemoglobin Sodium Chloride Carbon Dioxide 32 H BUN Creatinine 0.4 L Glucose 163 H POC Glucose 180 H Calcium 8.3 L Ferritin AST Lactate Dehydrogenase C-Reactive Protein Total Protein Albumin Coronavirus (PCR) 02/06/21 02/06/21 02/06/21 08:01 11:44 16:11 WBC RBC Hgb MCV MCH RDW Plt Count Lymph % (Auto) [place] % (Auto) Lymph # (Auto) Seg Neutrophils % Seg Neuts % (Manual) Lymphocytes % (Manual) Seg Neutrophils # Seg Neutrophils # Man D-Dimer ABG pH ABG pO2 ABG HCO3 ABG O2 Saturation ABG Base Excess ABG Hemoglobin Oxyhemoglobin Sodium Chloride Carbon Dioxide BUN Creatinine Glucose POC Glucose 155 H 215 H 247 H Calcium Ferritin AST Lactate Dehydrogenase C-Reactive Protein Total Protein Albumin Coronavirus (PCR) 02/06/21 02/07/21 02/07/21 23:40 08:01 11:54 WBC RBC Hgb MCV MCH RDW Plt Count Lymph % (Auto) [place] % (Auto) Lymph # (Auto) Seg Neutrophils % Seg Neuts % (Manual) Lymphocytes % (Manual) Seg Neutrophils # Seg Neutrophils # Man D-Dimer ABG pH ABG pO2 ABG HCO3 ABG O2 Saturation ABG Base Excess ABG Hemoglobin Oxyhemoglobin Sodium Chloride Carbon Dioxide BUN Creatinine Glucose POC Glucose 267 H 233 H 227 H Calcium Ferritin AST Lactate Dehydrogenase C-Reactive Protein Total Protein Albumin Coronavirus (PCR) 02/07/21 02/07/21 02/07/21 15:48 20:58 20:58 WBC RBC Hgb MCV MCH RDW Plt Count Lymph % (Auto) [place] % (Auto) Lymph # (Auto) Seg Neutrophils % Seg Neuts % (Manual) Lymphocytes % (Manual) Seg Neutrophils # Seg Neutrophils # Man D-Dimer ABG pH ABG pO2 ABG HCO3 ABG O2 Saturation ABG Base Excess ABG Hemoglobin Oxyhemoglobin Sodium Chloride Carbon Dioxide 32 H BUN Creatinine 0.5 L 0.5 L Glucose 236 H POC Glucose 257 H Calcium 8.3 L Ferritin AST Lactate Dehydrogenase C-Reactive Protein Total Protein Albumin Coronavirus (PCR) 02/07/21 02/08/21 02/08/21 22:10 04:46 04:46 WBC 4.2 L RBC Hgb 9.7 L MCV 78 L MCH 24 L RDW 17.9 H Plt Count 110 L Lymph % (Auto) [place] % (Auto) Lymph # (Auto) Seg Neutrophils % Seg Neuts % (Manual) Lymphocytes % (Manual) Seg Neutrophils # Seg Neutrophils # Man D-Dimer ABG pH ABG pO2 ABG HCO3 ABG O2 Saturation ABG Base Excess ABG Hemoglobin Oxyhemoglobin Sodium Chloride Carbon Dioxide BUN Creatinine 0.4 L Glucose 220 H POC Glucose 241 H Calcium 8.0 L Ferritin AST Lactate Dehydrogenase C-Reactive Protein Total Protein Albumin Coronavirus (PCR) 02/08/21 02/08/21 02/08/21 08:05 11:36 15:44 WBC RBC Hgb MCV MCH RDW Plt Count Lymph % (Auto) [place] % (Auto) Lymph # (Auto) Seg Neutrophils % Seg Neuts % (Manual) Lymphocytes % (Manual) Seg Neutrophils # Seg Neutrophils # Man D-Dimer ABG pH ABG pO2 ABG HCO3 ABG O2 Saturation ABG Base Excess ABG Hemoglobin Oxyhemoglobin Sodium Chloride Carbon Dioxide BUN Creatinine Glucose POC Glucose 208 H 200 H 149 H Calcium Ferritin AST Lactate Dehydrogenase C-Reactive Protein Total Protein Albumin Coronavirus (PCR) 02/08/21 02/09/21 02/09/21 21:35 04:24 07:39 WBC RBC Hgb MCV MCH RDW Plt Count Lymph % (Auto) [place] % (Auto) Lymph # (Auto) Seg Neutrophils % Seg Neuts % (Manual) Lymphocytes % (Manual) Seg Neutrophils # Seg Neutrophils # Man D-Dimer ABG pH ABG pO2 ABG HCO3 ABG O2 Saturation ABG Base Excess ABG Hemoglobin Oxyhemoglobin Sodium Chloride Carbon Dioxide BUN Creatinine 0.4 L Glucose 205 H POC Glucose 249 H 205 H Calcium 8.1 L Ferritin AST Lactate Dehydrogenase C-Reactive Protein Total Protein Albumin Coronavirus (PCR) 02/09/21 02/09/21 02/09/21 11:53 16:52 21:26 WBC RBC Hgb MCV MCH RDW Plt Count Lymph % (Auto) [place] % (Auto) Lymph # (Auto) Seg Neutrophils % Seg Neuts % (Manual) Lymphocytes % (Manual) Seg Neutrophils # Seg Neutrophils # Man D-Dimer ABG pH ABG pO2 ABG HCO3 ABG O2 Saturation ABG Base Excess ABG Hemoglobin Oxyhemoglobin Sodium Chloride Carbon Dioxide BUN Creatinine Glucose POC Glucose 303 H 164 H 257 H Calcium Ferritin AST Lactate Dehydrogenase C-Reactive Protein Total Protein Albumin Coronavirus (PCR) 02/10/21 02/10/21 02/10/21 09:30 09:38 11:45 WBC RBC Hgb MCV MCH RDW Plt Count Lymph % (Auto) [place] % (Auto) Lymph # (Auto) Seg Neutrophils % Seg Neuts % (Manual) Lymphocytes % (Manual) Seg Neutrophils # Seg Neutrophils # Man D-Dimer ABG pH 7.309 L ABG pO2 71.2 L ABG HCO3 29.1 H ABG O2 Saturation 92.4 L ABG Base Excess ABG Hemoglobin 11.2 L Oxyhemoglobin 90.2 L Sodium Chloride Carbon Dioxide BUN Creatinine Glucose POC Glucose 240 H 257 H Calcium Ferritin AST Lactate Dehydrogenase C-Reactive Protein Total Protein Albumin Coronavirus (PCR) 02/10/21 02/10/21 02/11/21 17:12 21:26 04:50 WBC RBC Hgb MCV 78 L MCH 24 L RDW 20.3 H Plt Count 133 L Lymph % (Auto) [place] % (Auto) Lymph # (Auto) Seg Neutrophils % Seg Neuts % (Manual) Lymphocytes % (Manual) Seg Neutrophils # Seg Neutrophils # Man D-Dimer ABG pH ABG pO2 ABG HCO3 ABG O2 Saturation ABG Base Excess ABG Hemoglobin Oxyhemoglobin Sodium Chloride Carbon Dioxide BUN Creatinine Glucose POC Glucose 178 H 362 H Calcium Ferritin AST Lactate Dehydrogenase C-Reactive Protein Total Protein Albumin Coronavirus (PCR) 02/11/21 02/11/21 02/11/21 08:02 11:52 17:14 WBC RBC Hgb MCV MCH RDW Plt Count Lymph % (Auto) [place] % (Auto) Lymph # (Auto) Seg Neutrophils % Seg Neuts % (Manual) Lymphocytes % (Manual) Seg Neutrophils # Seg Neutrophils # Man D-Dimer ABG pH ABG pO2 ABG HCO3 ABG O2 Saturation ABG Base Excess ABG Hemoglobin Oxyhemoglobin Sodium Chloride Carbon Dioxide BUN Creatinine Glucose POC Glucose 263 H 433 H 212 H Calcium Ferritin AST Lactate Dehydrogenase C-Reactive Protein Total Protein Albumin Coronavirus (PCR) 02/11/21 02/12/21 02/12/21 21:39 08:24 11:21 WBC RBC Hgb MCV MCH RDW Plt Count Lymph % (Auto) [place] % (Auto) Lymph # (Auto) Seg Neutrophils % Seg Neuts % (Manual) Lymphocytes % (Manual) Seg Neutrophils # Seg Neutrophils # Man D-Dimer ABG pH ABG pO2 ABG HCO3 ABG O2 Saturation ABG Base Excess ABG Hemoglobin Oxyhemoglobin Sodium Chloride Carbon Dioxide BUN Creatinine Glucose POC Glucose 248 H 295 H 403 H Calcium Ferritin AST Lactate Dehydrogenase C-Reactive Protein Total Protein Albumin Coronavirus (PCR) 02/12/21 02/13/21 02/13/21 16:29 07:32 12:19 WBC RBC Hgb MCV MCH RDW Plt Count Lymph % (Auto) [place] % (Auto) Lymph # (Auto) Seg Neutrophils % Seg Neuts % (Manual) Lymphocytes % (Manual) Seg Neutrophils # Seg Neutrophils # Man D-Dimer ABG pH ABG pO2 ABG HCO3 ABG O2 Saturation ABG Base Excess ABG Hemoglobin Oxyhemoglobin Sodium Chloride Carbon Dioxide BUN Creatinine Glucose POC Glucose 238 H 299 H 357 H Calcium Ferritin AST Lactate Dehydrogenase C-Reactive Protein Total Protein Albumin Coronavirus (PCR) 02/13/21 02/13/21 02/14/21 16:28 21:45 07:44 WBC RBC Hgb MCV MCH RDW Plt Count Lymph % (Auto) [place] % (Auto) Lymph # (Auto) Seg Neutrophils % Seg Neuts % (Manual) Lymphocytes % (Manual) Seg Neutrophils # Seg Neutrophils # Man D-Dimer ABG pH ABG pO2 ABG HCO3 ABG O2 Saturation ABG Base Excess ABG Hemoglobin Oxyhemoglobin Sodium Chloride Carbon Dioxide BUN Creatinine Glucose POC Glucose 270 H 346 H 234 H Calcium Ferritin AST Lactate Dehydrogenase C-Reactive Protein Total Protein Albumin Coronavirus (PCR) 02/14/21 02/14/21 02/14/21 11:12 16:40 21:27 WBC RBC Hgb MCV MCH RDW Plt Count Lymph % (Auto) [place] % (Auto) Lymph # (Auto) Seg Neutrophils % Seg Neuts % (Manual) Lymphocytes % (Manual) Seg Neutrophils # Seg Neutrophils # Man D-Dimer ABG pH ABG pO2 ABG HCO3 ABG O2 Saturation ABG Base Excess ABG Hemoglobin Oxyhemoglobin Sodium Chloride Carbon Dioxide BUN Creatinine Glucose POC Glucose 294 H 116 H 159 H Calcium Ferritin AST Lactate Dehydrogenase C-Reactive Protein Total Protein Albumin Coronavirus (PCR) 02/15/21 02/15/21 02/15/21 07:58 11:41 16:41 WBC RBC Hgb MCV MCH RDW Plt Count Lymph % (Auto) [place] % (Auto) Lymph # (Auto) Seg Neutrophils % Seg Neuts % (Manual) Lymphocytes % (Manual) Seg Neutrophils # Seg Neutrophils # Man D-Dimer ABG pH ABG pO2 ABG HCO3 ABG O2 Saturation ABG Base Excess ABG Hemoglobin Oxyhemoglobin Sodium Chloride Carbon Dioxide BUN Creatinine Glucose POC Glucose 225 H 325 H 148 H Calcium Ferritin AST Lactate Dehydrogenase C-Reactive Protein Total Protein Albumin Coronavirus (PCR) 02/15/21 02/16/21 02/16/21 22:29 07:55 11:02 WBC RBC Hgb MCV MCH RDW Plt Count Lymph % (Auto) [place] % (Auto) Lymph # (Auto) Seg Neutrophils % Seg Neuts % (Manual) Lymphocytes % (Manual) Seg Neutrophils # Seg Neutrophils # Man D-Dimer ABG pH ABG pO2 ABG HCO3 ABG O2 Saturation ABG Base Excess ABG Hemoglobin Oxyhemoglobin Sodium Chloride Carbon Dioxide BUN Creatinine Glucose POC Glucose 239 H 138 H 337 H Calcium Ferritin AST Lactate Dehydrogenase C-Reactive Protein Total Protein Albumin Coronavirus (PCR) 02/16/21 02/16/21 02/17/21 16:41 21:46 06:53 WBC RBC Hgb MCV 78 L MCH 24 L RDW 18.9 H Plt Count Lymph % (Auto) [place] % (Auto) Lymph # (Auto) Seg Neutrophils % Seg Neuts % (Manual) Lymphocytes % (Manual) Seg Neutrophils # Seg Neutrophils # Man D-Dimer ABG pH ABG pO2 ABG HCO3 ABG O2 Saturation ABG Base Excess ABG Hemoglobin Oxyhemoglobin Sodium Chloride Carbon Dioxide BUN Creatinine Glucose POC Glucose 138 H 286 H Calcium Ferritin AST Lactate Dehydrogenase C-Reactive Protein Total Protein Albumin Coronavirus (PCR) 02/17/21 02/17/21 02/17/21 06:53 07:37 11:12 WBC RBC Hgb MCV MCH RDW Plt Count Lymph % (Auto) [place] % (Auto) Lymph # (Auto) Seg Neutrophils % Seg Neuts % (Manual) Lymphocytes % (Manual) Seg Neutrophils # Seg Neutrophils # Man D-Dimer ABG pH ABG pO2 ABG HCO3 ABG O2 Saturation ABG Base Excess ABG Hemoglobin Oxyhemoglobin Sodium Chloride Carbon Dioxide 31 H BUN 20 H Creatinine 0.4 L Glucose 238 H POC Glucose 251 H 221 H Calcium Ferritin AST Lactate Dehydrogenase C-Reactive Protein Total Protein Albumin Coronavirus (PCR) 02/17/21 02/17/21 02/18/21 16:36 21:21 08:01 WBC RBC Hgb MCV MCH RDW Plt Count Lymph % (Auto) [place] % (Auto) Lymph # (Auto) Seg Neutrophils % Seg Neuts % (Manual) Lymphocytes % (Manual) Seg Neutrophils # Seg Neutrophils # Man D-Dimer ABG pH ABG pO2 ABG HCO3 ABG O2 Saturation ABG Base Excess ABG Hemoglobin Oxyhemoglobin Sodium Chloride Carbon Dioxide BUN Creatinine Glucose POC Glucose 213 H 185 H 280 H Calcium Ferritin AST Lactate Dehydrogenase C-Reactive Protein Total Protein Albumin Coronavirus (PCR) 02/18/21 02/18/21 02/18/21 11:55 15:33 21:48 WBC RBC Hgb MCV MCH RDW Plt Count Lymph % (Auto) [place] % (Auto) Lymph # (Auto) Seg Neutrophils % Seg Neuts % (Manual) Lymphocytes % (Manual) Seg Neutrophils # Seg Neutrophils # Man D-Dimer ABG pH ABG pO2 ABG HCO3 ABG O2 Saturation ABG Base Excess ABG Hemoglobin Oxyhemoglobin Sodium Chloride Carbon Dioxide BUN Creatinine Glucose POC Glucose 303 H 276 H 288 H Calcium Ferritin AST Lactate Dehydrogenase C-Reactive Protein Total Protein Albumin Coronavirus (PCR) 02/19/21 02/19/21 02/19/21 08:22 12:05 17:18 WBC RBC Hgb MCV MCH RDW Plt Count Lymph % (Auto) [place] % (Auto) Lymph # (Auto) Seg Neutrophils % Seg Neuts % (Manual) Lymphocytes % (Manual) Seg Neutrophils # Seg Neutrophils # Man D-Dimer ABG pH ABG pO2 ABG HCO3 ABG O2 Saturation ABG Base Excess ABG Hemoglobin Oxyhemoglobin Sodium Chloride Carbon Dioxide BUN Creatinine Glucose POC Glucose 247 H 274 H 135 H Calcium Ferritin AST Lactate Dehydrogenase C-Reactive Protein Total Protein Albumin Coronavirus (PCR) 02/19/21 02/20/21 21:11 08:00 WBC RBC Hgb MCV MCH RDW Plt Count Lymph % (Auto) [place] % (Auto) Lymph # (Auto) Seg Neutrophils % Seg Neuts % (Manual) Lymphocytes % (Manual) Seg Neutrophils # Seg Neutrophils # Man D-Dimer ABG pH ABG pO2 ABG HCO3 ABG O2 Saturation ABG Base Excess ABG Hemoglobin Oxyhemoglobin Sodium Chloride Carbon Dioxide BUN Creatinine Glucose POC Glucose 341 H 238 H Calcium Ferritin AST Lactate Dehydrogenase C-Reactive Protein Total Protein Albumin Coronavirus (PCR)
[2021-02-20] MEDS ORDERED: FUROSEMIDE 40 MG/4 ML INJ IV SCH (09:00)
--- NOTE | 2021-02-20 10:27 | Progress Note ---
Assessment and Plan Assessment and plan: This is a 55-year-old female with schizophrenia who presented to [facility] on 01/18 for shortness of breath, cough, subjective fever and not feeling well for the last couple days with known COVID-19 exposure. While in the emergency room patient was switched from non rebreather mask to high flow nasal cannula and his CTA chest showed no acute pulmonary embolism. Patient was admitted to the hospital service as a COVID-19 PUI with consults to [facility], infectious disease, psych. 01/18/2021 -Acute hypoxic respiratory failure requiring high flow oxygen 40 L. Nebulizer treatment -Patient is admitted for suspected Covid pneumonia. Patient is on dexamethasone, COVID-19 test is pending. Patient is on empiric antibiotics. -ID consulted, will consult pulmonary. -Patient has hyponatremia yesterday and I will repeat and if it is low I will manage accordingly -Patient has elevated D-dimer and CTA chest and bilateral Doppler ultrasound of the lower extremities pending 01/19/2021 -Acute hypoxic respiratory failure currently on BiPAP, nebulizer treatment. I will put in orders to transfer to [facility] yesterday but there was no bed. -Patient is positive for Covid and she is on Decadron and remdesivir. Actemra was ordered on 01/19/2021 -ID evaluated the patient and recommend to continue Decadron and remdesivir, also to continue ceftriaxone and azithromycin for 5 days because of the elevated procalcitonin level. Pulmonary was consulted and recommend to continue current management and add Lasix -CTA chest was done and significant for bilateral pulmonary opacities, negative for PE, Doppler ultrasound of the lower extremities was negative for DVT. -Prognosis is guarded. -Patient is currently on BiPAP and she was agitated and trying to take off the BiPAP, I put the patient on restraints. Discussed with dry house wheeler to transfer the patient to IM and if there is no bed she need to be transferred to CCU. 01/20: Patient received 5 mg of Haldol for severe agitation and refusal to keep high flow nasal cannula in place. [facility] ordered Lasix again. Psych was consulted today. Patient was on BiPAP therapy all night and RT attempted to give her a break patient is on high flow nasal cannula however she did not keep this in place and was paced back on BiPAP after receiving Haldol. She was started on Lantus today. 01/21: Patient is on BiPAP and on time examination was on 20/10 100% FiO2. Patient was started on Lantus. Psych consult completed and started on Haldol p.o. twice daily and Mirtazepin PO daily. No acute events reported overnight. Patient's D-dimer is greater than 10,000 started on prophylactic Lovenox as recent CTA chest and bilateral lower extremity Doppler ultrasound were negative. 01/22: Patient has been taken off BiPAP therapy and placed on high flow nasal cannula. Patient has been downgraded to IMCU. Patient's hyponatremia and hypochloremia have worsened. 01/23: Patient was on BiPAP overnight with FiO2 85% and IPAP 20/EPAP 10. Patient currently with high flow nasal cannula 40 L O2 with an FiO2 of 100%. Continue remdesivir and dexamethasone. Patient is s/p Actemra on 01/20. Continue empiric antibiotics per ID recommendations. Continue anticoagulation per protocol. 01/24: Patient is tachycardic and hypertensive and [facility] has opted to add amlodipine. Patient remains on 40 L 100% high flow nasal cannula. Continue remdesivir and dexamethasone. Patient is s/p Actemra on 01/20. Continue empiric antibiotics per ID recommendations. Continue anticoagulation per protocol. 01/25: Patient currently with high flow nasal cannula 40 L/min with FiO2 100%. Continue dexamethasone. Patient has completed remdesivir and s/p Actemra on 01/20. Continue full dose anticoagulation given high elevated D-dimer. Continue to trend inflammatory markers. Prognosis remains guarded. 01/26: Patient currently with high flow nasal cannula 35 L/min and FiO2 90%. Continue dexamethasone. Patient has completed remdesivir and s/p Actemra on 01/20. Continue full dose anticoagulation given high elevated D-dimer. Continue to trend inflammatory markers. Prognosis remains guarded. 01/27: Patient currently with high flow nasal cannula/Vapotherm 35 L/min O2 with FiO2 90%. Patient has completed remdesivir and s/p Actemra on 01/20. Continue full dose anticoagulation given high elevated D-dimer. Continue to trend inflammatory markers. Prognosis remains guarded. 01/28; Patient currently with high flow nasal cannula/Vapotherm 35 L/min O2 with FiO2 90%. Patient has completed remdesivir and s/p Actemra on 01/20. Continue full dose anticoagulation given high elevated D-dimer. Continue to trend inflammatory markers. Prognosis remains guarded. 01/29; patient is currently on 35 L of high flow oxygen. Prognosis guarded. Patient can be transferred to regular floor. 01/30/2021; patient is currently on 35 L of high flow oxygen, FiO2 of 65%. Patient has flat affect and did not talk to me. Patient refused most of her p.o. medications. Patient finished remdesivir, steroid. 01/31/2021; patient is on 35 L of high flow oxygen, FiO2 65%. Patient was calm and cooperative and communicative today. pulmonary is following. Patient finished remdesivir and steroid. 02/01/2021; patient was on 40 L of high flow oxygen.. I have called and discussed with her mother yesterday. Her mother told me patient was last followed at [facility] and I called facility and they told me medication she was on and I put these medications. Patient refused to eat so I put the patient on NG tube feeding for medications. Prognosis is guarded. 02/02/2021; patient is on 4 L of high flow oxygen with FiO2 of 60%. Her outpatient psych medications were reconciled. Patient was taking medications and as needed NG tube. Pulmonary is following the patient. 02/03/21: Patient noted with mild epistaxis this morning we will order some Afrin to help. Continue current management patient is on 35 L high flow. No worsening distress but still with intermittent confusion sometimes takes off the oxygen. Will repeat a trial of Lasix and monitor renal function with a.m. labs. Plan discussed with nurse at bedside. I also encouraged proning again. 02/04: Unfortunately still with hypoxia desaturating required increased to 50 L and 70% will gradually taper down. Patient due to her underlying psych history of schizophrenia is noncompliant. Daughter is working on getting guardianship over the patient. This will likely be a slow process nevertheless we will still obtain a CT of the head to ensure no other pathology. We will get an ABG and a chest x-ray today. 02/05: Patient overnight had an episode where she coughed up blood. H&H has remained stable. She has been since discontinued from full dose anticoagulants to DVT prophylactic dose. Chest x-ray shows mild worsening of congestion. Will discuss with pulmonary if patient will benefit from BiPAP during hours of sleep. Still awaiting information from family on prior psych medications that the patient was on psych review with psychiatry team as her mental status remains a deterrent and an impediment to oxygen management. We will give a trial dose of Lasix x 3 days. Will transfer to [facility] for closer monitoring 02/06: Continue supportive care, 2 more days of lasix, monitor BMP closely wean oxygen as tolerated, pulmonary input noted 02/07: Continues on High flow. Refusing medications, still with severe hypoxia, Discussed with Psych to re-evaluate the patient. 02/08: Unfortunately patient was not seen by psych yesterday and I still do not have home medication listed I asked the family and they promised to bring her in. We discussed with nursing staff to ask again. We will also reconsult psych as her underlying psych condition is precluding improvement due to her refusal of medical treatments. Patient continues on high flow 10 today will be to further wean down if tolerated. She is still refusing prone position 02/09: Patient remains on oxygen, not compliance, continues on restraints to assist with compliance, will try to wean again 02/10: Restart lasix, discussed with Water Resource Specialist considering starting on PrECEDEX, Monitor electrolytes. Prognosis is guarded. 02/11/2021; patient is on Lasix, Precedex and Solu-Medrol 40 mg every 8 hours. Patient's blood sugar is elevated and I increase Lantus from 20-25 nightly, give her a dose of 10 units of Lantus now. Will monitor blood sugar. Prognosis very poor. 02/12/2021; patient is on 40 L of high flow oxygen, 94% FiO2. Pulmonary is following the patient and recommendations noted. Dr Mancilla Discussed with the patient and the mother about the plan of care and the high risk of her condition and refusal of care. 02/13/2021; patient was on 30 L of high flow oxygen with FiO2 of 90%. Pulmonary is following the patient. Continue [facility] care. Prognosis is guarded. 02/14/2021; patient is on 30 L of high flow oxygen with FiO2 of 90%. Continue inpatient care. 02/15/2021; patient was alert and oriented. Patient states she is feeling okay today. Patient is on 30 L of high flow oxygen with FiO2 of 90%. Patient was given Lasix yesterday. Wean as tolerated. 02/16/2021; patient was alert and oriented. Patient states she is feeling better . Patient is on 25 L of high flow oxygen with FiO2 of 75%. Wean oxygen as tolerated. 02/17: Continue supportive care. Continue to wean as tolerated. Blood sugar 251 mildly elevated will adjust insulin for better control as patient still on steroids Lasix today per Pulmonary no indication to wean steroids until lower FiO2 obtained. 02/18: Agree with intermittent Lasix. Discussed with case management about possible LTAC no Medicaid bed available per documentation. We will continue to follow for now we will continue aggressive weaning of oxygen. 02/19: Patient continues on high flow receiving intermittent Lasix with pulmonary guidance. Continue current management and weaning off oxygen. Continue passive range of motion while in bed. Fall precautions. 02/20: Continue supportive care, continue under pulmonary guidiance, continue pressure ulcer prevention techniques. Discussed with team to ensure patient is moving, being turned q2hrs and daily skin integrity exam Severe COVID-19 pneumonia Acute hypoxic respiratory failure Obesity Schizophrenia Leukocytosis Hyperglycemia Schizophrenia Hypernatremia Hypercholermia -[facility], infectious disease, psychiatry consulted, appreciate recommendations -COVID-19 PCR positive -Droplet/contact isolation -Remdesivir, azithromycin, ceftriaxone, dexamethasone (twice daily dosing) -s/p Actemra -Wean supplemental oxygen as tolerated, pulmonary hygiene -Prone as tolerated -Trend COVID-19 inflammatory markers for risk stratification, CBC, CMP -SSI, Lantus -01/18 bilateral lower extremity Doppler ultrasound negative for DVT -01/17 CTA shows no evidence of pulmonary embolism, extensive bilateral pneumonia, hepatomegaly with hepatic steatosis History Interval history: Patient seen and examined confused, although she knows where she is at she is still confused still person and time she believes that she is the claims vice president remains Hypoxia down to 50% on 15 L Vapotherm. This morning noted was on 100% fio2. no documentation to why, she is now back down to 50% Hospitalist Physical - Physical exam Narrative exam: Patient was 25 L of oxygen with FiO2 of 55%. Saturating 92% The patient appeared well nourished and normally developed. Vital signs as documented. Head exam is unremarkable. No scleral icterus . Neck is without jugular venous distension, thyromegaly, or carotid bruits. Lungs decreased air entry on both lungs Cardiac exam reveals regular rate and Rhythm. Abdominal exam reveals normal bowel sounds, nontender, no organomegaly. Extremities are nonedematous and both femoral and pedal pulses are normal. 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 X1 to person but confused place and time - Constitutional Vitals: Temp Pulse Resp BP Pulse Ox 98.5 F 65 16 139/74 94 02/20/21 05:00 02/20/21 05:00 02/20/21 05:00 02/20/21 05:00 02/20/21 05:00 General appearance: Present: no acute distress, well-nourished HEART Score - HEART Score Troponin: Troponin T < 0.010 ng/mL (0.00-0.029) 01/17/21 16:41 Results - Labs CBC & Chem 7: 02/17/21 06:53 02/17/21 06:53 Labs: Laboratory Last Values WBC 6.3 K/mm3 (4.5-11.0) 02/17/21 06:53 RBC 4.35 M/mm3 (3.65-5.03) 02/17/21 06:53 Hgb 10.3 gm/dl (10.1-14.3) 02/17/21 06:53 Hct 34.0 % (30.3-42.9) 02/17/21 06:53 MCV 78 fl (79-97) L 02/17/21 06:53 MCH 24 pg (28-32) L 02/17/21 06:53 MCHC 30 % (30-34) 02/17/21 06:53 RDW 18.9 % (13.2-15.2) H 02/17/21 06:53 Plt Count 309 K/mm3 (140-440) 02/17/21 06:53 Lymph % (Auto) 44.9 % (13.4-35.0) H 02/02/21 07:56 [place] % (Auto) 9.2 % (0.0-7.3) H 02/02/21 07:56 Eos % (Auto) 3.6 % (0.0-4.3) 02/02/21 07:56 Baso % (Auto) 0.3 % (0.0-1.8) 02/02/21 07:56 Lymph # (Auto) 1.4 K/mm3 (1.2-5.4) 02/02/21 07:56 [place] # (Auto) 0.3 K/mm3 (0.0-0.8) 02/02/21 07:56 Eos # (Auto) 0.1 K/mm3 (0.0-0.4) 02/02/21 07:56 Baso # (Auto) 0.0 K/mm3 (0.0-0.1) 02/02/21 07:56 Add Manual Diff Complete 01/19/21 05:11 Total Counted 100 01/19/21 05:11 Seg Neutrophils % 42.0 % (40.0-70.0) 02/02/21 07:56 Seg Neuts % (Manual) 88.0 % (40.0-70.0) H 01/19/21 05:11 Lymphocytes % (Manual) 10.0 % (13.4-35.0) L 01/19/21 05:11 Monocytes % (Manual) 2.0 % (0.0-7.3) 01/19/21 05:11 Nucleated RBC % Not Reportable 01/19/21 05:11 Seg Neutrophils # 1.3 K/mm3 (1.8-7.7) L 02/02/21 07:56 Seg Neutrophils # Man 12.5 K/mm3 (1.8-7.7) H 01/19/21 05:11 Band Neutrophils # 0.0 K/mm3 01/19/21 05:11 Lymphocytes # (Manual) 1.4 K/mm3 (1.2-5.4) 01/19/21 05:11 Abs React Lymphs (Man) 0.0 K/mm3 01/19/21 05:11 Monocytes # (Manual) 0.3 K/mm3 (0.0-0.8) 01/19/21 05:11 Eosinophils # (Manual) 0.0 K/mm3 (0.0-0.4) 01/19/21 05:11 Basophils # (Manual) 0.0 K/mm3 (0.0-0.1) 01/19/21 05:11 Metamyelocytes # 0.0 K/mm3 01/19/21 05:11 Myelocytes # 0.0 K/mm3 01/19/21 05:11 Promyelocytes # 0.0 K/mm3 01/19/21 05:11 Blast Cells # 0.0 K/mm3 01/19/21 05:11 WBC Morphology Not Reportable 01/19/21 05:11 Hypersegmented Neuts Not Reportable 01/19/21 05:11 Hyposegmented Neuts Not Reportable 01/19/21 05:11 Hypogranular Neuts Not Reportable 01/19/21 05:11 Smudge Cells Not Reportable 01/19/21 05:11 Toxic Granulation Not Reportable 01/19/21 05:11 Toxic Vacuolation Not Reportable 01/19/21 05:11 Dohle Bodies Not Reportable 01/19/21 05:11 Pelger-Huet Anomaly Not Reportable 01/19/21 05:11 Inder Rods Not Reportable 01/19/21 05:11 Platelet Estimate Consistent w auto 01/19/21 05:11 Clumped Platelets Not Reportable 01/19/21 05:11 Plt Clumps, EDTA Not Reportable 01/19/21 05:11 Large Platelets Not Reportable 01/19/21 05:11 Giant Platelets Not Reportable 01/19/21 05:11 Platelet Satelliting Not Reportable 01/19/21 05:11 Plt Morphology Comment Not Reportable 01/19/21 05:11 RBC Morphology Not Reportable 01/19/21 05:11 Dimorphic RBCs Not Reportable 01/19/21 05:11 Polychromasia Not Reportable 01/19/21 05:11 Hypochromasia 1+ 01/19/21 05:11 Poikilocytosis Not Reportable 01/19/21 05:11 Anisocytosis Not Reportable 01/19/21 05:11 Microcytosis Not Reportable 01/19/21 05:11 Macrocytosis Not Reportable 01/19/21 05:11 Spherocytes Not Reportable 01/19/21 05:11 Pappenheimer Bodies Not Reportable 01/19/21 05:11 Sickle Cells Not Reportable 01/19/21 05:11 Target Cells Not Reportable 01/19/21 05:11 Tear Drop Cells Not Reportable 01/19/21 05:11 Ovalocytes Not Reportable 01/19/21 05:11 Helmet Cells Not Reportable 01/19/21 05:11 [place] Bodies Not Reportable 01/19/21 05:11 [place] Rings Not Reportable 01/19/21 05:11 Giorgio Cells Not Reportable 01/19/21 05:11 Bite Cells Not Reportable 01/19/21 05:11 Crenated Cell Not Reportable 01/19/21 05:11 Elliptocytes Not Reportable 01/19/21 05:11 Acanthocytes (Spur) Not Reportable 01/19/21 05:11 Rouleaux Not Reportable 01/19/21 05:11 Hemoglobin C Crystals Not Reportable 01/19/21 05:11 Schistocytes Not Reportable 01/19/21 05:11 Malaria parasites Not Reportable 01/19/21 05:11 Chai Bodies Not Reportable 01/19/21 05:11 Hem Pathologist Commnt No 01/19/21 05:11 PT 13.6 Sec. (12.2-14.9) 02/04/21 14:52 INR 1.06 (0.87-1.13) 02/04/21 14:52 APTT 30.7 Sec. (24.2-36.6) 02/04/21 14:52 D-Dimer 1884.49 ng/mlDDU (0-234) H 01/28/21 08:46 ABG pH 7.309 pH Units (7.350-7.450) L 02/10/21 09:30 ABG pCO2 59.4 mm Hg 02/10/21 09:30 ABG pO2 71.2 mm Hg (80.0-90.0) L 02/10/21 09:30 ABG HCO3 29.1 mmol/L (20.0-26.0) H 02/10/21 09:30 ABG O2 Saturation 92.4 % (95.0-99.0) L 02/10/21 09:30 ABG O2 Content 14.2 (0.0-44) 02/10/21 09:30 ABG Base Excess 1.8 mmol/L (-2.0-3.0) 02/10/21 09:30 ABG Hemoglobin 11.2 gm/dl (12.0-16.0) L 02/10/21 09:30 ABG Carboxyhemoglobin 1.8 % (0.0-5.0) 02/10/21 09:30 ABG Methemoglobin 0.6 % (0.0-1.5) 02/10/21 09:30 Oxyhemoglobin 90.2 % (95.0-99.0) L 02/10/21 09:30 FiO2 100 % 02/10/21 09:30 Sodium 139 mmol/L (137-145) 02/17/21 06:53 Potassium 4.4 mmol/L (3.6-5.0) 02/17/21 06:53 Chloride 99.2 mmol/L (98-107) 02/17/21 06:53 Carbon Dioxide 31 mmol/L (22-30) H 02/17/21 06:53 Anion Gap 13 mmol/L 02/17/21 06:53 BUN 20 mg/dL (7-17) H 02/17/21 06:53 Creatinine 0.4 mg/dL (0.6-1.2) L 02/17/21 06:53 Estimated GFR > 60 ml/min 02/17/21 06:53 BUN/Creatinine Ratio 50 % 02/17/21 06:53 Glucose 238 mg/dL (65-100) H 02/17/21 06:53 POC Glucose 238 mg/dL (70-105) H 02/20/21 08:00 Lactic Acid 1.70 mmol/L (0.7-2.0) 01/17/21 16:41 Calcium 8.6 mg/dL (8.4-10.2) 02/17/21 06:53 Ferritin 797.7 ng/mL (10.0-200.0) H 01/28/21 08:46 Total Bilirubin 0.30 mg/dL (0.1-1.2) 01/21/21 11:29 AST 34 units/L (5-40) 01/21/21 11:29 ALT 38 units/L (7-56) 01/21/21 11:29 Alkaline Phosphatase 117 units/L (35-129) 01/21/21 11:29 Ammonia 43.0 umol/L (25-60) 02/04/21 14:52 Lactate Dehydrogenase 556 units/L (91-180) H 01/28/21 08:46 Troponin T < 0.010 ng/mL (0.00-0.029) 01/17/21 16:41 C-Reactive Protein 0.20 mg/dL (0.00-1.30) 01/28/21 08:46 NT-Pro-B Natriuret Pep 40.88 pg/mL (0-900) 01/17/21 16:41 Total Protein 7.3 g/dL (6.3-8.2) 01/21/21 11:29 Albumin 3.4 g/dL (3.9-5) L 01/21/21 11:29 Albumin/Globulin Ratio 0.9 % 01/21/21 11:29 Procalcitonin 0.39 ng/mL (<0.15) 01/17/21 17:46 Coronavirus (PCR) Negative (Negative) 02/11/21 09:10 Estrada/IV: Voiding Method Bedside Commode Active Medications - Current Medications Current Medications: Generic Name Dose Route Start Last Admin Trade Name Freq PRN Reason Stop Dose Admin Albuterol 2 puff 02/17/21 19:51 Albuterol 8.5 Gm Mdi Inhalation IH Q4HRT PRN Shortness Of Breath Apixaban 2.5 mg 02/04/21 22:00 02/19/21 22:10 Apixaban 2.5 Mg Tab PO 2.5 mg Q12HR PJ Administration Protocol Aripiprazole 15 mg 01/31/21 13:00 02/19/21 09:39 Aripiprazole 15 Mg Tab PO 15 mg QDAY PJ Administration Ascorbic Acid 1,000 mg 02/04/21 10:00 02/19/21 22:10 Ascorbic Acid 500 Mg Tab PO 1,000 mg BID PJ Administration Cholecalciferol 5,000 unit 02/04/21 10:00 02/19/21 09:33 Cholecalciferol (Vit D3) 5,000 Unit Tab PO 5,000 unit DAILY PJ Administration Divalproex Sodium 500 mg 01/31/21 12:00 02/19/21 09:33 Divalproex Er 500 Mg Tab PO 500 mg QDAY PJ Administration Famotidine 20 mg 01/18/21 10:00 02/19/21 22:10 Famotidine 20 Mg Tab PO 20 mg BID PJ Administration Furosemide 40 mg 02/20/21 09:00 Furosemide 40 Mg/4 Ml Inj IV 02/20/21 14:00 ONCE PJ Hydralazine HCl 10 mg 01/18/21 00:38 02/14/21 06:22 Hydralazine 20 Mg/1 Ml Inj IV 10 mg Q6H PRN Administration htn Hydromorphone HCl 0.5 mg 01/20/21 11:00 02/18/21 07:55 Hydromorphone 1 Mg/1 Ml Inj IV 0.5 mg Q6H PRN Administration Pain , Severe (7-10) Hydrophilic Ointment 1 applic 02/03/21 12:00 Petrolatum,White 30 Gm Oint TP PRN PRN Skin Irritation Insulin Glargine 25 units 02/11/21 22:00 02/19/21 22:19 Insulin Glargine 100 Units/Ml SUB-Q 25 units QHS PJ Administration Insulin Human Lispro 0 unit 02/01/21 11:30 02/20/21 08:17 Insulin Lispro 100 Unit/Ml SUB-Q 4 unit ACHS PJ Administration Protocol Methylprednisolone Sodium Succinate 40 mg 02/10/21 14:00 02/20/21 06:04 Methylprednisolone Sod Succinate 40 Mg/1 Ml Inj IV 40 mg Q8HR PJ Administration Metoprolol Tartrate 12.5 mg 02/01/21 12:00 02/19/21 22:20 Metoprolol Tartrate 25 Mg Tab PO 12.5 mg BID PJ Administration Mirtazapine 7.5 mg 01/21/21 22:00 02/19/21 22:11 Mirtazapine 15 Mg Tab PO 7.5 mg QHS PJ Administration Oxymetazoline HCl 2 spray 02/03/21 12:00 02/03/21 13:17 Oxymetazoline 0.05% Nasal [place] NS 2 spray Q12H PRN Administration Congestion Paliperidone 6 mg 01/31/21 13:00 02/19/21 09:39 Paliperidone Er 3 Mg Tab PO 6 mg QDAY PJ Administration Sodium Chloride 10 ml 01/18/21 10:00 02/19/21 22:11 Sodium Chloride 0.9% 10 Ml Flush Syringe IV 10 ml BID PJ Administration Zinc Sulfate 220 mg 02/04/21 10:00 02/19/21 09:32 Zinc Sulfate 220 Mg Cap PO 220 mg QDAY PJ Administration Nutrition/Malnutrition Assess - Dietary Evaluation Nutrition/Malnutrition Findings: Nutrition Notes Start: 01/24/21 10:40 Freq: Status: Active Protocol: Document 02/18/21 10:32 AL (Rec: 02/18/21 10:36 AL [id number]) Co-Sign 05/25/21 10:32 LP Nutrition Notes Initial or Follow up Brief Note Current Diagnosis Respiratory Failure Other Pertinent Diagnosis pneu, AMS Current Diet Cardiac/Consistent CHO Height 5 ft 4 in Weight 94 kg [place] Body Weight (kg) 54.54 BMI 35.5 Weight Status Obese Subjective/Other Information F/u for stable intakes.Per ADL and pt, she is tolerating meals at 75-100% and has a stable appetite. She states eating "very well." Nutrition Intervention Anticipated Discharge Needs: Cardiac/Consistent CHO Revisit per MD consult or patient Sign Off request:
[2021-02-20] MEDS: FAMOTIDINE 20 MG TAB PO SCH ×2 (10:36→22:40)
[2021-02-20] MEDS: CHOLECALCIFEROL (VIT D3) 5,000 UNIT TAB PO SCH (10:36)
[2021-02-20] MEDS: PALIPERIDONE ER 3 MG TAB PO SCH (10:36)
[2021-02-20] MEDS: ASCORBIC ACID 500 MG TAB PO SCH ×2 (10:36→22:40)
[2021-02-20] MEDS: APIXABAN 2.5 MG TAB PO SCH ×2 (10:36→22:40)
[2021-02-20] MEDS: ZINC SULFATE 220 MG CAP PO SCH (10:36)
[2021-02-20] MEDS: ARIPiprazole 15 MG TAB PO SCH (10:36)
[2021-02-20] MEDS: DIVALPROEX ER 500 MG TAB PO SCH (10:36)
[2021-02-20] MEDS: METOPROLOL TARTRATE 25 MG TAB PO SCH ×2 (11:02→22:47)
[2021-02-20 11:09] LABS: Basophils # (Auto) 0.1 K/mm3 (0.0-0.1); Basophils % (Auto) 0.7 % (0.0-1.8); Hematocrit 34.1 % (30.3-42.9); Hemoglobin 10.5 gm/dl (10.1-14.3); Lymphocytes # (Auto) 0.5 K/mm3 (1.2-5.4); Lymphocytes % (Auto) 6.6 % (13.4-35.0); Mean Corpuscular HGB Conc 31 % (30-34); Mean Corpuscular Volume 78 fl (79-97); Monocytes # (Auto) 0.3 K/mm3 (0.0-0.8); Monocytes % (Auto) 3.5 % (0.0-7.3); Platelet Count 355 K/mm3 (140-440); Red Cell Distribution Width 18.4 % (13.2-15.2)
[2021-02-20 12:22] LABS: Blood Urea Nitrogen 22 mg/dL (7-17); Hemolysis Index 3
[2021-02-20 12:24] LABS: BUN/Creatinine Ratio 44
[2021-02-20] MEDS: INSULIN GLARGINE 100 UNITS/ML SUB-Q SCH (22:40)
[2021-02-20] MEDS: MIRTAZAPINE 15 MG TAB PO SCH (22:40)
[2021-02-21] MEDS: methylPREDNISolone Sod Succinate 40 MG/1 ML INJ IV SCH ×3 (05:50→21:39)
[2021-02-21] MEDS: INSULIN LISPRO 100 UNIT/ML SUB-Q SCH ×5 (08:42→22:46)
[2021-02-21] MEDS: APIXABAN 2.5 MG TAB PO SCH ×2 (10:05→21:39)
[2021-02-21] MEDS: PALIPERIDONE ER 3 MG TAB PO SCH (10:05)
[2021-02-21] MEDS: ARIPiprazole 15 MG TAB PO SCH (10:05)
[2021-02-21] MEDS: METOPROLOL TARTRATE 25 MG TAB PO SCH ×2 (10:06→22:35)
[2021-02-21] MEDS: FAMOTIDINE 20 MG TAB PO SCH ×2 (10:06→21:39)
[2021-02-21] MEDS: DIVALPROEX ER 500 MG TAB PO SCH (10:06)
[2021-02-21] MEDS: ZINC SULFATE 220 MG CAP PO SCH (10:06)
[2021-02-21] MEDS: ASCORBIC ACID 500 MG TAB PO SCH ×2 (10:06→21:39)
[2021-02-21] MEDS: CHOLECALCIFEROL (VIT D3) 5,000 UNIT TAB PO SCH (10:06)
--- NOTE | 2021-02-21 12:16 | Progress Note ---
Assessment and Plan Assessment and plan: This is a 55-year-old female with schizophrenia who presented to [facility] on 01/18 for shortness of breath, cough, subjective fever and not feeling well for the last couple days with known COVID-19 exposure. While in the emergency room patient was switched from non rebreather mask to high flow nasal cannula and his CTA chest showed no acute pulmonary embolism. Patient was admitted to the hospital service as a COVID-19 PUI with consults to [facility], infectious disease, psych. 01/18/2021 -Acute hypoxic respiratory failure requiring high flow oxygen 40 L. Nebulizer treatment -Patient is admitted for suspected Covid pneumonia. Patient is on dexamethasone, COVID-19 test is pending. Patient is on empiric antibiotics. -ID consulted, will consult pulmonary. -Patient has hyponatremia yesterday and I will repeat and if it is low I will manage accordingly -Patient has elevated D-dimer and CTA chest and bilateral Doppler ultrasound of the lower extremities pending 01/19/2021 -Acute hypoxic respiratory failure currently on BiPAP, nebulizer treatment. I will put in orders to transfer to [facility] yesterday but there was no bed. -Patient is positive for Covid and she is on Decadron and remdesivir. Actemra was ordered on 01/19/2021 -ID evaluated the patient and recommend to continue Decadron and remdesivir, also to continue ceftriaxone and azithromycin for 5 days because of the elevated procalcitonin level. Pulmonary was consulted and recommend to continue current management and add Lasix -CTA chest was done and significant for bilateral pulmonary opacities, negative for PE, Doppler ultrasound of the lower extremities was negative for DVT. -Prognosis is guarded. -Patient is currently on BiPAP and she was agitated and trying to take off the BiPAP, I put the patient on restraints. Discussed with warehouse logistics manager to transfer the patient to IM and if there is no bed she need to be transferred to CCU. 01/20: Patient received 5 mg of Haldol for severe agitation and refusal to keep high flow nasal cannula in place. [facility] ordered Lasix again. Psych was consulted today. Patient was on BiPAP therapy all night and RT attempted to give her a break patient is on high flow nasal cannula however she did not keep this in place and was paced back on BiPAP after receiving Haldol. She was started on Lantus today. 01/21: Patient is on BiPAP and on time examination was on 20/10 100% FiO2. Patient was started on Lantus. Psych consult completed and started on Haldol p.o. twice daily and Mirtazepin PO daily. No acute events reported overnight. Patient's D-dimer is greater than 10,000 started on prophylactic Lovenox as recent CTA chest and bilateral lower extremity Doppler ultrasound were negative. 01/22: Patient has been taken off BiPAP therapy and placed on high flow nasal cannula. Patient has been downgraded to IMCU. Patient's hyponatremia and hypochloremia have worsened. 01/23: Patient was on BiPAP overnight with FiO2 85% and IPAP 20/EPAP 10. Patient currently with high flow nasal cannula 40 L O2 with an FiO2 of 100%. Continue remdesivir and dexamethasone. Patient is s/p Actemra on 01/20. Continue empiric antibiotics per ID recommendations. Continue anticoagulation per protocol. 01/24: Patient is tachycardic and hypertensive and [facility] has opted to add amlodipine. Patient remains on 40 L 100% high flow nasal cannula. Continue remdesivir and dexamethasone. Patient is s/p Actemra on 01/20. Continue empiric antibiotics per ID recommendations. Continue anticoagulation per protocol. 01/25: Patient currently with high flow nasal cannula 40 L/min with FiO2 100%. Continue dexamethasone. Patient has completed remdesivir and s/p Actemra on 01/20. Continue full dose anticoagulation given high elevated D-dimer. Continue to trend inflammatory markers. Prognosis remains guarded. 01/26: Patient currently with high flow nasal cannula 35 L/min and FiO2 90%. Continue dexamethasone. Patient has completed remdesivir and s/p Actemra on 01/20. Continue full dose anticoagulation given high elevated D-dimer. Continue to trend inflammatory markers. Prognosis remains guarded. 01/27: Patient currently with high flow nasal cannula/Vapotherm 35 L/min O2 with FiO2 90%. Patient has completed remdesivir and s/p Actemra on 01/20. Continue full dose anticoagulation given high elevated D-dimer. Continue to trend inflammatory markers. Prognosis remains guarded. 01/28; Patient currently with high flow nasal cannula/Vapotherm 35 L/min O2 with FiO2 90%. Patient has completed remdesivir and s/p Actemra on 01/20. Continue full dose anticoagulation given high elevated D-dimer. Continue to trend inflammatory markers. Prognosis remains guarded. 01/29; patient is currently on 35 L of high flow oxygen. Prognosis guarded. Patient can be transferred to regular floor. 01/30/2021; patient is currently on 35 L of high flow oxygen, FiO2 of 65%. Patient has flat affect and did not talk to me. Patient refused most of her p.o. medications. Patient finished remdesivir, steroid. 01/31/2021; patient is on 35 L of high flow oxygen, FiO2 65%. Patient was calm and cooperative and communicative today. pulmonary is following. Patient finished remdesivir and steroid. 02/01/2021; patient was on 40 L of high flow oxygen.. I have called and discussed with her mother yesterday. Her mother told me patient was last followed at [facility] and I called facility and they told me medication she was on and I put these medications. Patient refused to eat so I put the patient on NG tube feeding for medications. Prognosis is guarded. 02/02/2021; patient is on 4 L of high flow oxygen with FiO2 of 60%. Her outpatient psych medications were reconciled. Patient was taking medications and as needed NG tube. Pulmonary is following the patient. 02/03/21: Patient noted with mild epistaxis this morning we will order some Afrin to help. Continue current management patient is on 35 L high flow. No worsening distress but still with intermittent confusion sometimes takes off the oxygen. Will repeat a trial of Lasix and monitor renal function with a.m. labs. Plan discussed with nurse at bedside. I also encouraged proning again. 02/04: Unfortunately still with hypoxia desaturating required increased to 50 L and 70% will gradually taper down. Patient due to her underlying psych history of schizophrenia is noncompliant. Daughter is working on getting guardianship over the patient. This will likely be a slow process nevertheless we will still obtain a CT of the head to ensure no other pathology. We will get an ABG and a chest x-ray today. 02/05: Patient overnight had an episode where she coughed up blood. H&H has remained stable. She has been since discontinued from full dose anticoagulants to DVT prophylactic dose. Chest x-ray shows mild worsening of congestion. Will discuss with pulmonary if patient will benefit from BiPAP during hours of sleep. Still awaiting information from family on prior psych medications that the patient was on psych review with psychiatry team as her mental status remains a deterrent and an impediment to oxygen management. We will give a trial dose of Lasix x 3 days. Will transfer to [facility] for closer monitoring 02/06: Continue supportive care, 2 more days of lasix, monitor BMP closely wean oxygen as tolerated, pulmonary input noted 02/07: Continues on High flow. Refusing medications, still with severe hypoxia, Discussed with Psych to re-evaluate the patient. 02/08: Unfortunately patient was not seen by psych yesterday and I still do not have home medication listed I asked the family and they promised to bring her in. We discussed with nursing staff to ask again. We will also reconsult psych as her underlying psych condition is precluding improvement due to her refusal of medical treatments. Patient continues on high flow 10 today will be to further wean down if tolerated. She is still refusing prone position 02/09: Patient remains on oxygen, not compliance, continues on restraints to assist with compliance, will try to wean again 02/10: Restart lasix, discussed with Drug Abuse Social Worker considering starting on PrECEDEX, Monitor electrolytes. Prognosis is guarded. 02/11/2021; patient is on Lasix, Precedex and Solu-Medrol 40 mg every 8 hours. Patient's blood sugar is elevated and I increase Lantus from 20-25 nightly, give her a dose of 10 units of Lantus now. Will monitor blood sugar. Prognosis very poor. 02/12/2021; patient is on 40 L of high flow oxygen, 94% FiO2. Pulmonary is following the patient and recommendations noted. Dr Mancilla Discussed with the patient and the mother about the plan of care and the high risk of her condition and refusal of care. 02/13/2021; patient was on 30 L of high flow oxygen with FiO2 of 90%. Pulmonary is following the patient. Continue [facility] care. Prognosis is guarded. 02/14/2021; patient is on 30 L of high flow oxygen with FiO2 of 90%. Continue inpatient care. 02/15/2021; patient was alert and oriented. Patient states she is feeling okay today. Patient is on 30 L of high flow oxygen with FiO2 of 90%. Patient was given Lasix yesterday. Wean as tolerated. 02/16/2021; patient was alert and oriented. Patient states she is feeling better . Patient is on 25 L of high flow oxygen with FiO2 of 75%. Wean oxygen as tolerated. 02/17: Continue supportive care. Continue to wean as tolerated. Blood sugar 251 mildly elevated will adjust insulin for better control as patient still on steroids Lasix today per Pulmonary no indication to wean steroids until lower FiO2 obtained. 02/18: Agree with intermittent Lasix. Discussed with case management about possible LTAC no Medicaid bed available per documentation. We will continue to follow for now we will continue aggressive weaning of oxygen. 02/19: Patient continues on high flow receiving intermittent Lasix with pulmonary guidance. Continue current management and weaning off oxygen. Continue passive range of motion while in bed. Fall precautions. 02/20: Continue supportive care, continue under pulmonary guidiance, continue pressure ulcer prevention techniques. Discussed with team to ensure patient is moving, being turned q2hrs and daily skin integrity exam 02/21: This morning found patient on 8 L nasal cannula satting 97% down to 5 L and she still satting 95 to 97% after 4 hours. I have further decreased it to 3 L of oxygen and I have discussed with nursing staff to recheck it again in the next 2 hours and also ambulate the patient on 3 L of oxygen. She does not demon strate any further respiratory distress worsening. We will continue current management and adjust as needed. Case management looking for placement Severe COVID-19 pneumonia Acute hypoxic respiratory failure Obesity Schizophrenia Leukocytosis Hyperglycemia Schizophrenia Hypernatremia Hypercholermia -CCM, infectious disease, psychiatry consulted, appreciate recommendations -COVID-19 PCR positive -Droplet/contact isolation -Remdesivir, azithromycin, ceftriaxone, dexamethasone (twice daily dosing) -s/p Actemra -Wean supplemental oxygen as tolerated, pulmonary hygiene -Prone as tolerated -Trend COVID-19 inflammatory markers for risk stratification, CBC, CMP -SSI, Lantus -01/18 bilateral lower extremity Doppler ultrasound negative for DVT -01/17 CTA shows no evidence of pulmonary embolism, extensive bilateral pneumonia, hepatomegaly with hepatic steatosis History Interval history: Patient seen and examined confused, this morning at found her on 8 L of nasal cannula trended down to 5 L after 4 hours I rechecked it it is at 97% and after dropping down to 3 L and discussed with the nurse. Hospitalist Physical - Physical exam Narrative exam: Patient was 8 L of oxygen nasal cannula The patient appeared well nourished and normally developed. Vital signs as documented. Head exam is unremarkable. No scleral icterus . Neck is without jugular venous distension, thyromegaly, or carotid bruits. Lungs decreased air entry on both lungs Cardiac exam reveals regular rate and Rhythm. Abdominal exam reveals normal bowel sounds, nontender, no organomegaly. Extremities are nonedematous and both femoral and pedal pulses are normal. GEOMORPHOLOGY TEACHER: Patient was alert and oriented. X1 to person but confused place and time - Constitutional Vitals: Temp Pulse Resp BP Pulse Ox 97.3 F L 81 16 114/52 94 02/21/21 04:22 02/21/21 10:06 02/21/21 04:22 02/21/21 10:06 02/21/21 04:22 General appearance: Present: no acute distress, well-nourished HEART Score - HEART Score Troponin: Troponin T < 0.010 ng/mL (0.00-0.029) 01/17/21 16:41 Results - Labs CBC & Chem 7: 02/20/21 10:54 02/20/21 10:54 Labs: Laboratory Last Values WBC 8.0 K/mm3 (4.5-11.0) 02/20/21 10:54 RBC 4.40 M/mm3 (3.65-5.03) 02/20/21 10:54 Hgb 10.5 gm/dl (10.1-14.3) 02/20/21 10:54 Hct 34.1 % (30.3-42.9) 02/20/21 10:54 MCV 78 fl (79-97) L 02/20/21 10:54 MCH 24 pg (28-32) L 02/20/21 10:54 MCHC 31 % (30-34) 02/20/21 10:54 RDW 18.4 % (13.2-15.2) H 02/20/21 10:54 Plt Count 355 K/mm3 (140-440) 02/20/21 10:54 Lymph % (Auto) 6.6 % (13.4-35.0) L 02/20/21 10:54 [place] % (Auto) 3.5 % (0.0-7.3) 02/20/21 10:54 Eos % (Auto) 0.0 % (0.0-4.3) 02/20/21 10:54 Baso % (Auto) 0.7 % (0.0-1.8) 02/20/21 10:54 Lymph # (Auto) 0.5 K/mm3 (1.2-5.4) L 02/20/21 10:54 [place] # (Auto) 0.3 K/mm3 (0.0-0.8) 02/20/21 10:54 Eos # (Auto) 0.0 K/mm3 (0.0-0.4) 02/20/21 10:54 Baso # (Auto) 0.1 K/mm3 (0.0-0.1) 02/20/21 10:54 Add Manual Diff Complete 01/19/21 05:11 Total Counted 100 01/19/21 05:11 Seg Neutrophils % 89.2 % (40.0-70.0) H 02/20/21 10:54 Seg Neuts % (Manual) 88.0 % (40.0-70.0) H 01/19/21 05:11 Lymphocytes % (Manual) 10.0 % (13.4-35.0) L 01/19/21 05:11 Monocytes % (Manual) 2.0 % (0.0-7.3) 01/19/21 05:11 Nucleated RBC % Not Reportable 01/19/21 05:11 Seg Neutrophils # 7.2 K/mm3 (1.8-7.7) 02/20/21 10:54 Seg Neutrophils # Man 12.5 K/mm3 (1.8-7.7) H 01/19/21 05:11 Band Neutrophils # 0.0 K/mm3 01/19/21 05:11 Lymphocytes # (Manual) 1.4 K/mm3 (1.2-5.4) 01/19/21 05:11 Abs React Lymphs (Man) 0.0 K/mm3 01/19/21 05:11 Monocytes # (Manual) 0.3 K/mm3 (0.0-0.8) 01/19/21 05:11 Eosinophils # (Manual) 0.0 K/mm3 (0.0-0.4) 01/19/21 05:11 Basophils # (Manual) 0.0 K/mm3 (0.0-0.1) 01/19/21 05:11 Metamyelocytes # 0.0 K/mm3 01/19/21 05:11 Myelocytes # 0.0 K/mm3 01/19/21 05:11 Promyelocytes # 0.0 K/mm3 01/19/21 05:11 Blast Cells # 0.0 K/mm3 01/19/21 05:11 WBC Morphology Not Reportable 01/19/21 05:11 Hypersegmented Neuts Not Reportable 01/19/21 05:11 Hyposegmented Neuts Not Reportable 01/19/21 05:11 Hypogranular Neuts Not Reportable 01/19/21 05:11 Smudge Cells Not Reportable 01/19/21 05:11 Toxic Granulation Not Reportable 01/19/21 05:11 Toxic Vacuolation Not Reportable 01/19/21 05:11 Dohle Bodies Not Reportable 01/19/21 05:11 Pelger-Huet Anomaly Not Reportable 01/19/21 05:11 Inder Rods Not Reportable 01/19/21 05:11 Platelet Estimate Consistent w auto 01/19/21 05:11 Clumped Platelets Not Reportable 01/19/21 05:11 Plt Clumps, EDTA Not Reportable 01/19/21 05:11 Large Platelets Not Reportable 01/19/21 05:11 Giant Platelets Not Reportable 01/19/21 05:11 Platelet Satelliting Not Reportable 01/19/21 05:11 Plt Morphology Comment Not Reportable 01/19/21 05:11 RBC Morphology Not Reportable 01/19/21 05:11 Dimorphic RBCs Not Reportable 01/19/21 05:11 Polychromasia Not Reportable 01/19/21 05:11 Hypochromasia 1+ 01/19/21 05:11 Poikilocytosis Not Reportable 01/19/21 05:11 Anisocytosis Not Reportable 01/19/21 05:11 Microcytosis Not Reportable 01/19/21 05:11 Macrocytosis Not Reportable 01/19/21 05:11 Spherocytes Not Reportable 01/19/21 05:11 Pappenheimer Bodies Not Reportable 01/19/21 05:11 Sickle Cells Not Reportable 01/19/21 05:11 Target Cells Not Reportable 01/19/21 05:11 Tear Drop Cells Not Reportable 01/19/21 05:11 Ovalocytes Not Reportable 01/19/21 05:11 Helmet Cells Not Reportable 01/19/21 05:11 Navarro-Boyce Bodies Not Reportable 01/19/21 05:11 [place] Rings Not Reportable 01/19/21 05:11 Giorgio Cells Not Reportable 01/19/21 05:11 Bite Cells Not Reportable 01/19/21 05:11 Crenated Cell Not Reportable 01/19/21 05:11 Elliptocytes Not Reportable 01/19/21 05:11 Acanthocytes (Spur) Not Reportable 01/19/21 05:11 Rouleaux Not Reportable 01/19/21 05:11 Hemoglobin C Crystals Not Reportable 01/19/21 05:11 Schistocytes Not Reportable 01/19/21 05:11 Malaria parasites Not Reportable 01/19/21 05:11 Chai Bodies Not Reportable 01/19/21 05:11 Hem Pathologist Commnt No 01/19/21 05:11 PT 13.6 Sec. (12.2-14.9) 02/04/21 14:52 INR 1.06 (0.87-1.13) 02/04/21 14:52 APTT 30.7 Sec. (24.2-36.6) 02/04/21 14:52 D-Dimer 1884.49 ng/mlDDU (0-234) H 01/28/21 08:46 ABG pH 7.309 pH Units (7.350-7.450) L 02/10/21 09:30 ABG pCO2 59.4 mm Hg 02/10/21 09:30 ABG pO2 71.2 mm Hg (80.0-90.0) L 02/10/21 09:30 ABG HCO3 29.1 mmol/L (20.0-26.0) H 02/10/21 09:30 ABG O2 Saturation 92.4 % (95.0-99.0) L 02/10/21 09:30 ABG O2 Content 14.2 (0.0-44) 02/10/21 09:30 ABG Base Excess 1.8 mmol/L (-2.0-3.0) 02/10/21 09:30 ABG Hemoglobin 11.2 gm/dl (12.0-16.0) L 02/10/21 09:30 ABG Carboxyhemoglobin 1.8 % (0.0-5.0) 02/10/21 09:30 ABG Methemoglobin 0.6 % (0.0-1.5) 02/10/21 09:30 Oxyhemoglobin 90.2 % (95.0-99.0) L 02/10/21 09:30 FiO2 100 % 02/10/21 09:30 Sodium 139 mmol/L (137-145) 02/20/21 10:54 Potassium 4.8 mmol/L (3.6-5.0) 02/20/21 10:54 Chloride 97.8 mmol/L (98-107) L 02/20/21 10:54 Carbon Dioxide 29 mmol/L (22-30) 02/20/21 10:54 Anion Gap 17 mmol/L 02/20/21 10:54 BUN 22 mg/dL (7-17) H 02/20/21 10:54 Creatinine 0.5 mg/dL (0.6-1.2) L 02/20/21 10:54 Estimated GFR > 60 ml/min 02/20/21 10:54 BUN/Creatinine Ratio 44 % 02/20/21 10:54 Glucose 297 mg/dL (65-100) H 02/20/21 10:54 POC Glucose 357 mg/dL (70-105) H 02/21/21 07:36 Lactic Acid 1.70 mmol/L (0.7-2.0) 01/17/21 16:41 Calcium 9.0 mg/dL (8.4-10.2) 02/20/21 10:54 Ferritin 797.7 ng/mL (10.0-200.0) H 01/28/21 08:46 Total Bilirubin 0.30 mg/dL (0.1-1.2) 01/21/21 11:29 AST 34 units/L (5-40) 01/21/21 11:29 ALT 38 units/L (7-56) 01/21/21 11:29 Alkaline Phosphatase 117 units/L (35-129) 01/21/21 11:29 Ammonia 43.0 umol/L (25-60) 02/04/21 14:52 Lactate Dehydrogenase 556 units/L (91-180) H 01/28/21 08:46 Troponin T < 0.010 ng/mL (0.00-0.029) 01/17/21 16:41 C-Reactive Protein 0.20 mg/dL (0.00-1.30) 01/28/21 08:46 NT-Pro-B Natriuret Pep 40.88 pg/mL (0-900) 01/17/21 16:41 Total Protein 7.3 g/dL (6.3-8.2) 01/21/21 11:29 Albumin 3.4 g/dL (3.9-5) L 01/21/21 11:29 Albumin/Globulin Ratio 0.9 % 01/21/21 11:29 Procalcitonin 0.39 ng/mL (<0.15) 01/17/21 17:46 Coronavirus (PCR) Negative (Negative) 02/11/21 09:10 Estrada/IV: Voiding Method Bedside Commode Active Medications - Current Medications Current Medications: Generic Name Dose Route Start Last Admin Trade Name Freq PRN Reason Stop Dose Admin Albuterol 2 puff 02/17/21 19:51 Albuterol 8.5 Gm Mdi Inhalation IH Q4HRT PRN Shortness Of Breath Apixaban 2.5 mg 02/04/21 22:00 02/21/21 10:05 Apixaban 2.5 Mg Tab PO 2.5 mg Q12HR PJ Administration Protocol Aripiprazole 15 mg 01/31/21 13:00 02/21/21 10:05 Aripiprazole 15 Mg Tab PO 15 mg QDAY PJ Administration Ascorbic Acid 1,000 mg 02/04/21 10:00 02/21/21 10:06 Ascorbic Acid 500 Mg Tab PO 1,000 mg BID PJ Administration Cholecalciferol 5,000 unit 02/04/21 10:00 02/21/21 10:06 Cholecalciferol (Vit D3) 5,000 Unit Tab PO 5,000 unit DAILY PJ Administration Divalproex Sodium 500 mg 01/31/21 12:00 02/21/21 10:06 Divalproex Er 500 Mg Tab PO 500 mg QDAY PJ Administration Famotidine 20 mg 01/18/21 10:00 02/21/21 10:06 Famotidine 20 Mg Tab PO 20 mg BID PJ Administration Hydralazine HCl 10 mg 01/18/21 00:38 02/14/21 06:22 Hydralazine 20 Mg/1 Ml Inj IV 10 mg Q6H PRN Administration htn Hydromorphone HCl 0.5 mg 01/20/21 11:00 02/18/21 07:55 Hydromorphone 1 Mg/1 Ml Inj IV 0.5 mg Q6H PRN Administration Pain , Severe (7-10) Hydrophilic Ointment 1 applic 02/03/21 12:00 Petrolatum,White 30 Gm Oint TP PRN PRN Skin Irritation Insulin Glargine 25 units 02/11/21 22:00 02/20/21 22:40 Insulin Glargine 100 Units/Ml SUB-Q 25 units QHS PJ Administration Insulin Human Lispro 0 unit 02/01/21 11:30 02/21/21 08:42 Insulin Lispro 100 Unit/Ml SUB-Q 10 unit ACHS PJ Administration Protocol Methylprednisolone Sodium Succinate 40 mg 02/10/21 14:00 02/21/21 05:50 Methylprednisolone Sod Succinate 40 Mg/1 Ml Inj IV 40 mg Q8HR PJ Administration Metoprolol Tartrate 12.5 mg 02/01/21 12:00 02/21/21 10:06 Metoprolol Tartrate 25 Mg Tab PO 12.5 mg BID PJ Administration Mirtazapine 7.5 mg 01/21/21 22:00 02/20/21 22:40 Mirtazapine 15 Mg Tab PO 7.5 mg QHS PJ Administration Oxymetazoline HCl 2 spray 02/03/21 12:00 02/03/21 13:17 Oxymetazoline 0.05% Nasal [place] NS 2 spray Q12H PRN Administration Congestion Paliperidone 6 mg 01/31/21 13:00 02/21/21 10:05 Paliperidone Er 3 Mg Tab PO 6 mg QDAY PJ Administration Sodium Chloride 10 ml 01/18/21 10:00 02/21/21 10:07 Sodium Chloride 0.9% 10 Ml Flush Syringe IV 10 ml BID PJ Administration Zinc Sulfate 220 mg 02/04/21 10:00 02/21/21 10:06 Zinc Sulfate 220 Mg Cap PO 220 mg QDAY PJ Administration Nutrition/Malnutrition Assess - Dietary Evaluation Nutrition/Malnutrition Findings: Nutrition Notes Start: 01/24/21 10:40 Freq: Status: Active Protocol: Document 02/18/21 10:32 AL (Rec: 02/18/21 10:36 AL [email or web address]) Co-Sign 02/18/21 10:32 LP Nutrition Notes Initial or Follow up Brief Note Current Diagnosis Respiratory Failure Other Pertinent Diagnosis pneu, AMS Current Diet Cardiac/Consistent CHO Height 5 ft 4 in Weight 94 kg [place] Body Weight (kg) 54.54 BMI 35.5 Weight Status Obese Subjective/Other Information F/u for stable intakes.Per ADL and pt, she is tolerating meals at 75-100% and has a stable appetite. She states eating "very well." Nutrition Intervention Anticipated Discharge Needs: Cardiac/Consistent CHO Revisit per MD consult or patient Sign Off request:
--- NOTE | 2021-02-21 13:13 | Progress Note ---
Assessment and Plan 55 y/o female admitted with acute respiratory failure secondary to pneumonia, positive for Sars CoV2 02/21/21: Continue wean. Patient was not on oxygen prior to admit. However 3 liters is stable for discharge if patient qualifies. Can follow up in the office in the next 10-14 days once discharged. 02/20/21: Lasix again today patient is doing very well with this. would recommend checking a chemistry to make sure potassium and renal function are still ok. Continue aggressive weaning of HFNC. Close to a point where we can start weaning steroids. 02/19/21: Lasix 40mg IV again today. Patient is tolerating well. No weaning of steroids just yet but almost off HFNC. Once off, can start to wean. Still would send out referrals to LTACH just in case. Will Continue to follow with you. Continue to wean for sats >88% 02/18/21: Lasix 40mg IV x1 today. Continue to wean FiO2 for sats >88%. Suggest asking CM if patient would be a good LTACH candidate. Continue steroids for now. Will continue to follow. 02/17/21: Lasix again today. Will start to wean steroids once on lower liter flow of oxygen. Not concerned about elevated bicarb on chemistry and does not need diamox therapy at this time. Will continue to follow. 02/16/21: Lasix again today. Sats improving and oxygen requirement is coming down. Continue steroids. Last chemistry was several days ago. Will check again in am. may need BID lasix. 02/15/21: Lasix today. Continue current dose of steroids. Prone if possible. 02/14/21: lasix again today. Prone if possible. Continue steroids. Guarded Prognosis 02/13/21: ordered more lasix for today. Monitor strict I/O. Prone if patient will allow. Continue steroids. 02/12/18: continue lasix therapy daily. Prone if possible. Guarded prognosis. continue steroids 02/11/21: [facility] has ordered lasix daily for 3 days, will continue to monitor. May need to give an additional dose later tonight. Long discussion at bedside this am about he importance of wearing bipap at night and what that means to her overall health. Will discuss with family too. Overall prognosis is very guarded. Will do our best to not intubate this patient given her morbid obesity as this would increase her mortality rate tremendously. Please continue to document refusal of therapy when appropriate. 02/10/21: Lasix today, 40 IV. Will attempt precedex to see if this will help with mental state and cooperation in care. Will also restart steroids but use solumedrol 40q8 dosing. May need to consider adding back the Haldol PRN as well. Guarded prognosis. Will attempt our best to not intubate this patient as her mortality would be extremely high if intubated given her morbid obesity. 02/02/21: Lasix again today. Patient refuses to prone. Guarded prognosis. 02/01/21: Will give another 40 of lasix today. Will speak with RT about being more aggressive with weaning of oxygen. Prone if possible. 01/31/21: Increased lasix to 40 today. Prone if possible. 01/30/21: Lasix 20mg IV today. Continue Antipsychotic therapy management. Prone as tolerated if patient willing. 01/29/21: Will give lasix again today. Will change Haldol to IM since patient is refusing PO meds. 01/28/21: Will give lasix again today. Continue all other therapies. Prone if patient will and tolerate. STeroids. Guarded prognosis. 01/20/21: Gave Haldol 5 and patient has calmed down and become more appropriate, allowing us to place bipap back on. COntinue steroids and remdesivir therapy. Doubt patient will be able to prone successfully. Will try lasix today again to see if this helps. Very very guarded prognosis. 01/19/21: Continue decadron, suggest increase given patient body habitus to BID. ID consult for Remdesivir therapy and to see if she is a candidate for Actemra. Prone as tolerated during the day and sleep prone at night. Will give lasix again today. Guarded prognosis. 1. Prone 2. Lasix 3. Agree with steroids 4. Follow up COVID testing Guarded prognosis Subjective Date of service: 02/21/21 Principal diagnosis: Covid-19 Interval history: No acute events. Down to 3 liters with good sats based on IM note. Objective Vital Signs - 12hr 02/21/21 02/21/21 04:22 10:06 Temperature 97.3 F L Pulse Rate 81 81 Respiratory 16 Rate Blood Pressure 114/52 114/52 O2 Sat by Pulse 94 Oximetry Constitutional: no acute distress, alert Eyes: non-icteric ENT: oropharynx moist Neck: supple, other (large in circumference) Effort: normal Ascultation: Bilateral: clear, diminished breath sounds Cardiovascular: other (tachy, RR; no mrg) Gastrointestinal: normoactive bowel sounds, soft, non-tender, non-distended Integumentary: normal Extremities: no cyanosis, no edema, pink and warm Neurologic: normal mental status, non-focal exam, pupils equal and round Psychiatric: mood appropriate, affect normal CBC and BMP: 02/20/21 10:54 02/20/21 10:54 ABG, PT/INR, D-dimer: ABG ABG pH 7.309 pH Units (7.350-7.450) L 02/10/21 09:30 ABG pCO2 59.4 mm Hg 02/10/21 09:30 ABG pO2 71.2 mm Hg (80.0-90.0) L 02/10/21 09:30 ABG O2 Saturation 92.4 % (95.0-99.0) L 02/10/21 09:30 PT/INR, D-dimer PT 13.6 Sec. (12.2-14.9) 02/04/21 14:52 INR 1.06 (0.87-1.13) 02/04/21 14:52 D-Dimer 1884.49 ng/mlDDU (0-234) H 01/28/21 08:46 Abnormal lab findings: Abnormal Labs 01/17/21 01/17/21 01/17/21 09:25 16:41 16:41 WBC RBC 5.23 H Hgb MCV 76 L MCH 24 L RDW Plt Count Lymph % (Auto) 9.4 L O'Brien % (Auto) Lymph # (Auto) 0.8 L Seg Neutrophils % 85.4 H Seg Neuts % (Manual) Lymphocytes % (Manual) Seg Neutrophils # Seg Neutrophils # Man D-Dimer ABG pH ABG pO2 ABG HCO3 ABG O2 Saturation ABG Base Excess ABG Hemoglobin Oxyhemoglobin Sodium 128 L Chloride 90.8 L Carbon Dioxide BUN Creatinine Glucose 372 H POC Glucose Calcium Ferritin AST 98 H Lactate Dehydrogenase C-Reactive Protein Total Protein Albumin 3.2 L Coronavirus (PCR) Positive A 01/17/21 01/17/21 01/17/21 17:46 17:46 17:46 WBC RBC Hgb MCV MCH RDW Plt Count Lymph % (Auto) O'Brien % (Auto) Lymph # (Auto) Seg Neutrophils % Seg Neuts % (Manual) Lymphocytes % (Manual) Seg Neutrophils # Seg Neutrophils # Man D-Dimer 1058.54 H ABG pH ABG pO2 ABG HCO3 ABG O2 Saturation ABG Base Excess ABG Hemoglobin Oxyhemoglobin Sodium Chloride Carbon Dioxide BUN Creatinine Glucose 369 H POC Glucose Calcium Ferritin 668.4 H AST Lactate Dehydrogenase 519 H C-Reactive Protein 19.20 H Total Protein Albumin Coronavirus (PCR) 01/18/21 01/18/21 01/19/21 09:01 17:18 05:11 WBC 14.2 H RBC Hgb MCV 74 L MCH 23 L RDW Plt Count Lymph % (Auto) O'Brien % (Auto) Lymph # (Auto) Seg Neutrophils % Seg Neuts % (Manual) 88.0 H Lymphocytes % (Manual) 10.0 L Seg Neutrophils # Seg Neutrophils # Man 12.5 H D-Dimer ABG pH 7.461 H ABG pO2 53.1 L ABG HCO3 ABG O2 Saturation 89.4 L ABG Base Excess ABG Hemoglobin Oxyhemoglobin 88.0 L Sodium 132 L Chloride 93.6 L Carbon Dioxide BUN 18 H Creatinine Glucose 367 H POC Glucose Calcium 7.8 L Ferritin AST Lactate Dehydrogenase C-Reactive Protein Total Protein Albumin Coronavirus (PCR) 01/19/21 01/19/21 01/19/21 05:11 11:06 14:43 WBC RBC Hgb MCV MCH RDW Plt Count Lymph % (Auto) O'Brien % (Auto) Lymph # (Auto) Seg Neutrophils % Seg Neuts % (Manual) Lymphocytes % (Manual) Seg Neutrophils # Seg Neutrophils # Man D-Dimer ABG pH ABG pO2 ABG HCO3 ABG O2 Saturation ABG Base Excess ABG Hemoglobin Oxyhemoglobin Sodium Chloride Carbon Dioxide BUN 18 H Creatinine Glucose 304 H 379 H POC Glucose 382 H Calcium 8.3 L Ferritin AST 92 H 96 H Lactate Dehydrogenase C-Reactive Protein Total Protein Albumin 3.0 L 3.0 L Coronavirus (PCR) 01/19/21 01/19/21 01/20/21 16:18 22:18 07:31 WBC RBC Hgb MCV MCH RDW Plt Count Lymph % (Auto) O'Brien % (Auto) Lymph # (Auto) Seg Neutrophils % Seg Neuts % (Manual) Lymphocytes % (Manual) Seg Neutrophils # Seg Neutrophils # Man D-Dimer ABG pH ABG pO2 ABG HCO3 ABG O2 Saturation ABG Base Excess ABG Hemoglobin Oxyhemoglobin Sodium Chloride Carbon Dioxide BUN Creatinine Glucose POC Glucose 374 H 341 H 344 H Calcium Ferritin AST Lactate Dehydrogenase C-Reactive Protein Total Protein Albumin Coronavirus (PCR) 01/20/21 01/20/21 01/20/21 07:33 12:14 13:54 WBC RBC Hgb MCV MCH RDW Plt Count Lymph % (Auto) O'Brien % (Auto) Lymph # (Auto) Seg Neutrophils % Seg Neuts % (Manual) Lymphocytes % (Manual) Seg Neutrophils # Seg Neutrophils # Man D-Dimer ABG pH ABG pO2 ABG HCO3 ABG O2 Saturation ABG Base Excess ABG Hemoglobin Oxyhemoglobin Sodium Chloride Carbon Dioxide BUN 32 H 31 H Creatinine Glucose 343 H 396 H POC Glucose 365 H Calcium Ferritin AST 57 H 54 H Lactate Dehydrogenase C-Reactive Protein Total Protein 8.3 H Albumin 2.7 L 3.1 L Coronavirus (PCR) 01/20/21 01/20/21 01/21/21 18:28 21:25 04:45 WBC RBC Hgb MCV MCH RDW Plt Count Lymph % (Auto) O'Brien % (Auto) Lymph # (Auto) Seg Neutrophils % Seg Neuts % (Manual) Lymphocytes % (Manual) Seg Neutrophils # Seg Neutrophils # Man D-Dimer ABG pH ABG pO2 ABG HCO3 ABG O2 Saturation ABG Base Excess ABG Hemoglobin Oxyhemoglobin Sodium Chloride Carbon Dioxide 31 H BUN 41 H Creatinine Glucose 377 H POC Glucose 403 H 340 H Calcium Ferritin AST Lactate Dehydrogenase C-Reactive Protein Total Protein 8.3 H Albumin 3.0 L Coronavirus (PCR) 01/21/21 01/21/21 01/21/21 04:45 04:45 04:45 WBC RBC Hgb MCV MCH RDW Plt Count Lymph % (Auto) O'Brien % (Auto) Lymph # (Auto) Seg Neutrophils % Seg Neuts % (Manual) Lymphocytes % (Manual) Seg Neutrophils # Seg Neutrophils # Man D-Dimer > 88050 H ABG pH ABG pO2 ABG HCO3 ABG O2 Saturation ABG Base Excess ABG Hemoglobin Oxyhemoglobin Sodium Chloride Carbon Dioxide BUN Creatinine Glucose POC Glucose Calcium Ferritin 1688.0 H AST Lactate Dehydrogenase 649 H C-Reactive Protein 17.00 H Total Protein Albumin Coronavirus (PCR) 01/21/21 01/21/21 01/21/21 09:45 11:29 12:09 WBC RBC Hgb MCV MCH RDW Plt Count Lymph % (Auto) O'Brien % (Auto) Lymph # (Auto) Seg Neutrophils % Seg Neuts % (Manual) Lymphocytes % (Manual) Seg Neutrophils # Seg Neutrophils # Man D-Dimer ABG pH ABG pO2 ABG HCO3 ABG O2 Saturation ABG Base Excess ABG Hemoglobin Oxyhemoglobin Sodium 151 H Chloride Carbon Dioxide BUN 40 H Creatinine Glucose 412 H POC Glucose 401 H 372 H Calcium Ferritin AST Lactate Dehydrogenase C-Reactive Protein Total Protein Albumin 3.4 L Coronavirus (PCR) 01/21/21 01/21/21 01/22/21 18:26 21:09 02:00 WBC RBC Hgb MCV MCH RDW Plt Count Lymph % (Auto) O'Brien % (Auto) Lymph # (Auto) Seg Neutrophils % Seg Neuts % (Manual) Lymphocytes % (Manual) Seg Neutrophils # Seg Neutrophils # Man D-Dimer ABG pH ABG pO2 ABG HCO3 ABG O2 Saturation ABG Base Excess ABG Hemoglobin Oxyhemoglobin Sodium Chloride Carbon Dioxide BUN Creatinine Glucose POC Glucose 376 H 322 H 231 H Calcium Ferritin AST Lactate Dehydrogenase C-Reactive Protein Total Protein Albumin Coronavirus (PCR) 01/22/21 01/22/21 01/22/21 05:24 08:25 08:25 WBC RBC 5.44 H Hgb MCV 75 L MCH 23 L RDW 15.5 H Plt Count Lymph % (Auto) O'Brien % (Auto) Lymph # (Auto) Seg Neutrophils % Seg Neuts % (Manual) Lymphocytes % (Manual) Seg Neutrophils # Seg Neutrophils # Man D-Dimer ABG pH ABG pO2 ABG HCO3 ABG O2 Saturation ABG Base Excess ABG Hemoglobin Oxyhemoglobin Sodium 155 H Chloride 112.4 H Carbon Dioxide BUN 33 H Creatinine Glucose 274 H POC Glucose 275 H Calcium Ferritin AST Lactate Dehydrogenase C-Reactive Protein Total Protein Albumin Coronavirus (PCR) 01/22/21 01/22/21 01/22/21 11:53 16:03 21:41 WBC RBC Hgb MCV MCH RDW Plt Count Lymph % (Auto) O'Brien % (Auto) Lymph # (Auto) Seg Neutrophils % Seg Neuts % (Manual) Lymphocytes % (Manual) Seg Neutrophils # Seg Neutrophils # Man D-Dimer ABG pH ABG pO2 ABG HCO3 ABG O2 Saturation ABG Base Excess ABG Hemoglobin Oxyhemoglobin Sodium Chloride Carbon Dioxide BUN Creatinine Glucose POC Glucose 265 H 293 H 279 H Calcium Ferritin AST Lactate Dehydrogenase C-Reactive Protein Total Protein Albumin Coronavirus (PCR) 01/23/21 01/23/21 01/23/21 02:03 05:46 05:59 WBC RBC Hgb MCV MCH RDW Plt Count Lymph % (Auto) O'Brien % (Auto) Lymph # (Auto) Seg Neutrophils % Seg Neuts % (Manual) Lymphocytes % (Manual) Seg Neutrophils # Seg Neutrophils # Man D-Dimer ABG pH ABG pO2 ABG HCO3 ABG O2 Saturation ABG Base Excess ABG Hemoglobin Oxyhemoglobin Sodium Chloride Carbon Dioxide BUN Creatinine Glucose POC Glucose 268 H 303 H Calcium Ferritin 1116.0 H AST Lactate Dehydrogenase C-Reactive Protein Total Protein Albumin Coronavirus (PCR) 01/23/21 01/23/21 01/23/21 05:59 07:42 09:11 WBC RBC Hgb MCV MCH RDW Plt Count Lymph % (Auto) O'Brien % (Auto) Lymph # (Auto) Seg Neutrophils % Seg Neuts % (Manual) Lymphocytes % (Manual) Seg Neutrophils # Seg Neutrophils # Man D-Dimer ABG pH ABG pO2 ABG HCO3 ABG O2 Saturation ABG Base Excess ABG Hemoglobin Oxyhemoglobin Sodium Chloride Carbon Dioxide BUN Creatinine Glucose POC Glucose 291 H 285 H Calcium Ferritin AST Lactate Dehydrogenase 680 H C-Reactive Protein 5.80 H Total Protein Albumin Coronavirus (PCR) 01/23/21 01/23/21 01/23/21 14:06 17:05 17:59 WBC RBC Hgb MCV MCH RDW Plt Count Lymph % (Auto) O'Brien % (Auto) Lymph # (Auto) Seg Neutrophils % Seg Neuts % (Manual) Lymphocytes % (Manual) Seg Neutrophils # Seg Neutrophils # Man D-Dimer ABG pH ABG pO2 ABG HCO3 ABG O2 Saturation ABG Base Excess ABG Hemoglobin Oxyhemoglobin Sodium Chloride Carbon Dioxide BUN Creatinine Glucose POC Glucose 228 H 300 H 278 H Calcium Ferritin AST Lactate Dehydrogenase C-Reactive Protein Total Protein Albumin Coronavirus (PCR) 01/23/21 01/24/21 01/24/21 21:43 02:14 05:15 WBC RBC Hgb MCV MCH RDW Plt Count Lymph % (Auto) O'Brien % (Auto) Lymph # (Auto) Seg Neutrophils % Seg Neuts % (Manual) Lymphocytes % (Manual) Seg Neutrophils # Seg Neutrophils # Man D-Dimer ABG pH ABG pO2 ABG HCO3 ABG O2 Saturation ABG Base Excess ABG Hemoglobin Oxyhemoglobin Sodium Chloride Carbon Dioxide BUN Creatinine Glucose POC Glucose 223 H 427 H 392 H Calcium Ferritin AST Lactate Dehydrogenase C-Reactive Protein Total Protein Albumin Coronavirus (PCR) 01/24/21 01/24/21 01/24/21 07:03 07:03 09:10 WBC RBC 5.49 H Hgb MCV 75 L MCH 23 L RDW Plt Count Lymph % (Auto) 7.0 L O'Brien % (Auto) Lymph # (Auto) 0.5 L Seg Neutrophils % 86.1 H Seg Neuts % (Manual) Lymphocytes % (Manual) Seg Neutrophils # Seg Neutrophils # Man D-Dimer ABG pH ABG pO2 ABG HCO3 ABG O2 Saturation ABG Base Excess ABG Hemoglobin Oxyhemoglobin Sodium 149 H Chloride 111.4 H Carbon Dioxide BUN 24 H Creatinine Glucose 339 H POC Glucose 284 H Calcium Ferritin AST Lactate Dehydrogenase C-Reactive Protein Total Protein Albumin Coronavirus (PCR) 01/24/21 01/24/21 01/24/21 13:47 18:30 21:58 WBC RBC Hgb MCV MCH RDW Plt Count Lymph % (Auto) O'Brien % (Auto) Lymph # (Auto) Seg Neutrophils % Seg Neuts % (Manual) Lymphocytes % (Manual) Seg Neutrophils # Seg Neutrophils # Man D-Dimer ABG pH ABG pO2 ABG HCO3 ABG O2 Saturation ABG Base Excess ABG Hemoglobin Oxyhemoglobin Sodium Chloride Carbon Dioxide BUN Creatinine Glucose POC Glucose 317 H 180 H 262 H Calcium Ferritin AST Lactate Dehydrogenase C-Reactive Protein Total Protein Albumin Coronavirus (PCR) 01/25/21 01/25/21 01/25/21 01:22 05:35 08:36 WBC RBC Hgb MCV MCH RDW Plt Count Lymph % (Auto) O'Brien % (Auto) Lymph # (Auto) Seg Neutrophils % Seg Neuts % (Manual) Lymphocytes % (Manual) Seg Neutrophils # Seg Neutrophils # Man D-Dimer ABG pH ABG pO2 ABG HCO3 ABG O2 Saturation ABG Base Excess ABG Hemoglobin Oxyhemoglobin Sodium Chloride Carbon Dioxide BUN Creatinine Glucose POC Glucose 280 H 243 H 216 H Calcium Ferritin AST Lactate Dehydrogenase C-Reactive Protein Total Protein Albumin Coronavirus (PCR) 01/25/21 01/25/21 01/25/21 15:14 15:14 15:14 WBC RBC Hgb MCV MCH RDW Plt Count Lymph % (Auto) O'Brien % (Auto) Lymph # (Auto) Seg Neutrophils % Seg Neuts % (Manual) Lymphocytes % (Manual) Seg Neutrophils # Seg Neutrophils # Man D-Dimer 6312.54 H ABG pH ABG pO2 ABG HCO3 ABG O2 Saturation ABG Base Excess ABG Hemoglobin Oxyhemoglobin Sodium 146 H Chloride 108.1 H Carbon Dioxide BUN 19 H Creatinine Glucose 287 H POC Glucose Calcium 8.3 L Ferritin 869.5 H AST Lactate Dehydrogenase 685 H C-Reactive Protein Total Protein Albumin Coronavirus (PCR) 01/25/21 01/25/21 01/26/21 16:06 21:18 01:47 WBC RBC Hgb MCV MCH RDW Plt Count Lymph % (Auto) O'Brien % (Auto) Lymph # (Auto) Seg Neutrophils % Seg Neuts % (Manual) Lymphocytes % (Manual) Seg Neutrophils # Seg Neutrophils # Man D-Dimer ABG pH ABG pO2 ABG HCO3 ABG O2 Saturation ABG Base Excess ABG Hemoglobin Oxyhemoglobin Sodium Chloride Carbon Dioxide BUN Creatinine Glucose POC Glucose 267 H 197 H 255 H Calcium Ferritin AST Lactate Dehydrogenase C-Reactive Protein Total Protein Albumin Coronavirus (PCR) 01/26/21 01/26/21 01/26/21 05:23 05:23 05:23 WBC RBC Hgb MCV MCH RDW Plt Count Lymph % (Auto) O'Brien % (Auto) Lymph # (Auto) Seg Neutrophils % Seg Neuts % (Manual) Lymphocytes % (Manual) Seg Neutrophils # Seg Neutrophils # Man D-Dimer 5809.58 H ABG pH ABG pO2 ABG HCO3 ABG O2 Saturation ABG Base Excess ABG Hemoglobin Oxyhemoglobin Sodium 149 H Chloride 109.3 H Carbon Dioxide BUN 24 H Creatinine Glucose 362 H POC Glucose Calcium Ferritin 877.1 H AST Lactate Dehydrogenase 655 H C-Reactive Protein Total Protein Albumin Coronavirus (PCR) 01/26/21 01/26/21 01/26/21 05:23 06:06 09:28 WBC RBC 5.49 H Hgb MCV 77 L MCH 23 L RDW Plt Count Lymph % (Auto) O'Brien % (Auto) Lymph # (Auto) 0.8 L Seg Neutrophils % 78.9 H Seg Neuts % (Manual) Lymphocytes % (Manual) Seg Neutrophils # Seg Neutrophils # Man D-Dimer ABG pH ABG pO2 ABG HCO3 ABG O2 Saturation ABG Base Excess ABG Hemoglobin Oxyhemoglobin Sodium Chloride Carbon Dioxide BUN Creatinine Glucose POC Glucose 387 H 308 H Calcium Ferritin AST Lactate Dehydrogenase C-Reactive Protein Total Protein Albumin Coronavirus (PCR) 01/26/21 01/26/21 01/27/21 15:56 21:28 02:51 WBC RBC Hgb MCV MCH RDW Plt Count Lymph % (Auto) O'Brien % (Auto) Lymph # (Auto) Seg Neutrophils % Seg Neuts % (Manual) Lymphocytes % (Manual) Seg Neutrophils # Seg Neutrophils # Man D-Dimer ABG pH ABG pO2 ABG HCO3 ABG O2 Saturation ABG Base Excess ABG Hemoglobin Oxyhemoglobin Sodium Chloride Carbon Dioxide BUN Creatinine Glucose POC Glucose 172 H 316 H 267 H Calcium Ferritin AST Lactate Dehydrogenase C-Reactive Protein Total Protein Albumin Coronavirus (PCR) 01/27/21 01/27/21 01/27/21 04:22 04:22 04:22 WBC RBC Hgb MCV MCH RDW Plt Count Lymph % (Auto) O'Brien % (Auto) Lymph # (Auto) Seg Neutrophils % Seg Neuts % (Manual) Lymphocytes % (Manual) Seg Neutrophils # Seg Neutrophils # Man D-Dimer 4046.06 H ABG pH ABG pO2 ABG HCO3 ABG O2 Saturation ABG Base Excess ABG Hemoglobin Oxyhemoglobin Sodium Chloride 107.7 H Carbon Dioxide BUN 30 H Creatinine Glucose 281 H POC Glucose Calcium Ferritin 812.2 H AST Lactate Dehydrogenase 570 H C-Reactive Protein Total Protein Albumin Coronavirus (PCR) 01/27/21 01/27/21 01/27/21 04:22 05:55 12:00 WBC RBC 5.15 H Hgb MCV 76 L MCH 23 L RDW 15.5 H Plt Count Lymph % (Auto) 12.7 L O'Brien % (Auto) Lymph # (Auto) 0.9 L Seg Neutrophils % 81.3 H Seg Neuts % (Manual) Lymphocytes % (Manual) Seg Neutrophils # Seg Neutrophils # Man D-Dimer ABG pH ABG pO2 ABG HCO3 ABG O2 Saturation ABG Base Excess ABG Hemoglobin Oxyhemoglobin Sodium Chloride Carbon Dioxide BUN Creatinine Glucose POC Glucose 275 H 121 H Calcium Ferritin AST Lactate Dehydrogenase C-Reactive Protein Total Protein Albumin Coronavirus (PCR) 01/27/21 01/27/21 01/28/21 17:32 21:23 02:08 WBC RBC Hgb MCV MCH RDW Plt Count Lymph % (Auto) O'Brien % (Auto) Lymph # (Auto) Seg Neutrophils % Seg Neuts % (Manual) Lymphocytes % (Manual) Seg Neutrophils # Seg Neutrophils # Man D-Dimer ABG pH ABG pO2 ABG HCO3 ABG O2 Saturation ABG Base Excess ABG Hemoglobin Oxyhemoglobin Sodium Chloride Carbon Dioxide BUN Creatinine Glucose POC Glucose 195 H 179 H 210 H Calcium Ferritin AST Lactate Dehydrogenase C-Reactive Protein Total Protein Albumin Coronavirus (PCR) 01/28/21 01/28/21 01/28/21 05:09 08:44 08:46 WBC RBC Hgb MCV MCH RDW Plt Count Lymph % (Auto) O'Brien % (Auto) Lymph # (Auto) Seg Neutrophils % Seg Neuts % (Manual) Lymphocytes % (Manual) Seg Neutrophils # Seg Neutrophils # Man D-Dimer 1884.49 H ABG pH ABG pO2 ABG HCO3 ABG O2 Saturation ABG Base Excess ABG Hemoglobin Oxyhemoglobin Sodium Chloride Carbon Dioxide BUN Creatinine Glucose POC Glucose 202 H 191 H Calcium Ferritin AST Lactate Dehydrogenase C-Reactive Protein Total Protein Albumin Coronavirus (PCR) 01/28/21 01/28/21 01/28/21 08:46 08:46 12:18 WBC RBC Hgb MCV MCH RDW Plt Count Lymph % (Auto) O'Brien % (Auto) Lymph # (Auto) Seg Neutrophils % Seg Neuts % (Manual) Lymphocytes % (Manual) Seg Neutrophils # Seg Neutrophils # Man D-Dimer ABG pH ABG pO2 ABG HCO3 ABG O2 Saturation ABG Base Excess ABG Hemoglobin Oxyhemoglobin Sodium Chloride Carbon Dioxide BUN Creatinine Glucose POC Glucose 221 H Calcium Ferritin 797.7 H AST Lactate Dehydrogenase 556 H C-Reactive Protein Total Protein Albumin Coronavirus (PCR) 01/28/21 01/28/21 01/29/21 18:21 21:45 01:48 WBC RBC Hgb MCV MCH RDW Plt Count Lymph % (Auto) O'Brien % (Auto) Lymph # (Auto) Seg Neutrophils % Seg Neuts % (Manual) Lymphocytes % (Manual) Seg Neutrophils # Seg Neutrophils # Man D-Dimer ABG pH ABG pO2 ABG HCO3 ABG O2 Saturation ABG Base Excess ABG Hemoglobin Oxyhemoglobin Sodium Chloride Carbon Dioxide BUN Creatinine Glucose POC Glucose 214 H 148 H 248 H Calcium Ferritin AST Lactate Dehydrogenase C-Reactive Protein Total Protein Albumin Coronavirus (PCR) 01/29/21 01/29/21 01/29/21 05:17 10:17 11:39 WBC RBC Hgb MCV MCH RDW Plt Count Lymph % (Auto) O'Brien % (Auto) Lymph # (Auto) Seg Neutrophils % Seg Neuts % (Manual) Lymphocytes % (Manual) Seg Neutrophils # Seg Neutrophils # Man D-Dimer ABG pH ABG pO2 ABG HCO3 ABG O2 Saturation ABG Base Excess ABG Hemoglobin Oxyhemoglobin Sodium Chloride Carbon Dioxide BUN Creatinine Glucose POC Glucose 256 H 193 H 177 H Calcium Ferritin AST Lactate Dehydrogenase C-Reactive Protein Total Protein Albumin Coronavirus (PCR) 01/29/21 01/29/21 01/30/21 18:06 20:24 06:07 WBC RBC Hgb MCV MCH RDW Plt Count Lymph % (Auto) O'Brien % (Auto) Lymph # (Auto) Seg Neutrophils % Seg Neuts % (Manual) Lymphocytes % (Manual) Seg Neutrophils # Seg Neutrophils # Man D-Dimer ABG pH ABG pO2 ABG HCO3 ABG O2 Saturation ABG Base Excess ABG Hemoglobin Oxyhemoglobin Sodium Chloride Carbon Dioxide BUN Creatinine Glucose POC Glucose 107 H 114 H 114 H Calcium Ferritin AST Lactate Dehydrogenase C-Reactive Protein Total Protein Albumin Coronavirus (PCR) 01/30/21 01/30/21 01/30/21 12:08 16:11 21:19 WBC RBC Hgb MCV MCH RDW Plt Count Lymph % (Auto) O'Brien % (Auto) Lymph # (Auto) Seg Neutrophils % Seg Neuts % (Manual) Lymphocytes % (Manual) Seg Neutrophils # Seg Neutrophils # Man D-Dimer ABG pH ABG pO2 ABG HCO3 ABG O2 Saturation ABG Base Excess ABG Hemoglobin Oxyhemoglobin Sodium Chloride Carbon Dioxide BUN Creatinine Glucose POC Glucose 178 H 142 H 244 H Calcium Ferritin AST Lactate Dehydrogenase C-Reactive Protein Total Protein Albumin Coronavirus (PCR) 01/31/21 01/31/21 01/31/21 05:30 06:42 07:50 WBC RBC Hgb MCV MCH RDW Plt Count Lymph % (Auto) O'Brien % (Auto) Lymph # (Auto) Seg Neutrophils % Seg Neuts % (Manual) Lymphocytes % (Manual) Seg Neutrophils # Seg Neutrophils # Man D-Dimer ABG pH ABG pO2 ABG HCO3 ABG O2 Saturation ABG Base Excess ABG Hemoglobin Oxyhemoglobin Sodium Chloride Carbon Dioxide BUN 20 H Creatinine Glucose 160 H POC Glucose 164 H 152 H Calcium 8.0 L Ferritin AST Lactate Dehydrogenase C-Reactive Protein Total Protein Albumin Coronavirus (PCR) 01/31/21 01/31/21 01/31/21 11:40 16:37 21:01 WBC RBC Hgb MCV MCH RDW Plt Count Lymph % (Auto) O'Brien % (Auto) Lymph # (Auto) Seg Neutrophils % Seg Neuts % (Manual) Lymphocytes % (Manual) Seg Neutrophils # Seg Neutrophils # Man D-Dimer ABG pH ABG pO2 ABG HCO3 ABG O2 Saturation ABG Base Excess ABG Hemoglobin Oxyhemoglobin Sodium Chloride Carbon Dioxide BUN Creatinine Glucose POC Glucose 129 H 141 H 125 H Calcium Ferritin AST Lactate Dehydrogenase C-Reactive Protein Total Protein Albumin Coronavirus (PCR) 02/01/21 02/01/21 02/01/21 06:26 11:15 16:11 WBC RBC Hgb MCV MCH RDW Plt Count Lymph % (Auto) O'Brien % (Auto) Lymph # (Auto) Seg Neutrophils % Seg Neuts % (Manual) Lymphocytes % (Manual) Seg Neutrophils # Seg Neutrophils # Man D-Dimer ABG pH ABG pO2 ABG HCO3 ABG O2 Saturation ABG Base Excess ABG Hemoglobin Oxyhemoglobin Sodium Chloride Carbon Dioxide BUN Creatinine Glucose POC Glucose 136 H 260 H 240 H Calcium Ferritin AST Lactate Dehydrogenase C-Reactive Protein Total Protein Albumin Coronavirus (PCR) 02/01/21 02/02/21 02/02/21 22:32 07:15 07:56 WBC 3.1 L RBC Hgb MCV 75 L MCH 23 L RDW Plt Count Lymph % (Auto) 44.9 H O[place]Brien % (Auto) 9.2 H Lymph # (Auto) Seg Neutrophils % Seg Neuts % (Manual) Lymphocytes % (Manual) Seg Neutrophils # 1.3 L Seg Neutrophils # Man D-Dimer ABG pH ABG pO2 ABG HCO3 ABG O2 Saturation ABG Base Excess ABG Hemoglobin Oxyhemoglobin Sodium Chloride Carbon Dioxide BUN Creatinine Glucose POC Glucose 298 H 164 H Calcium Ferritin AST Lactate Dehydrogenase C-Reactive Protein Total Protein Albumin Coronavirus (PCR) 02/02/21 02/02/21 02/02/21 07:56 11:35 16:07 WBC RBC Hgb MCV MCH RDW Plt Count Lymph % (Auto) [place]Brien % (Auto) Lymph # (Auto) Seg Neutrophils % Seg Neuts % (Manual) Lymphocytes % (Manual) Seg Neutrophils # Seg Neutrophils # Man D-Dimer ABG pH ABG pO2 ABG HCO3 ABG O2 Saturation ABG Base Excess ABG Hemoglobin Oxyhemoglobin Sodium Chloride Carbon Dioxide 31 H BUN Creatinine 0.4 L Glucose 159 H POC Glucose 297 H 252 H Calcium 8.2 L Ferritin AST Lactate Dehydrogenase C-Reactive Protein Total Protein Albumin Coronavirus (PCR) 02/02/21 02/03/21 02/03/21 22:33 17:04 22:17 WBC RBC Hgb MCV MCH RDW Plt Count Lymph % (Auto) [place]Brien % (Auto) Lymph # (Auto) Seg Neutrophils % Seg Neuts % (Manual) Lymphocytes % (Manual) Seg Neutrophils # Seg Neutrophils # Man D-Dimer ABG pH ABG pO2 ABG HCO3 ABG O2 Saturation ABG Base Excess ABG Hemoglobin Oxyhemoglobin Sodium Chloride Carbon Dioxide BUN Creatinine Glucose POC Glucose 257 H 247 H 278 H Calcium Ferritin AST Lactate Dehydrogenase C-Reactive Protein Total Protein Albumin Coronavirus (PCR) 02/04/21 02/04/21 02/04/21 05:41 07:55 11:56 WBC RBC Hgb MCV MCH RDW Plt Count Lymph % (Auto) [place] % (Auto) Lymph # (Auto) Seg Neutrophils % Seg Neuts % (Manual) Lymphocytes % (Manual) Seg Neutrophils # Seg Neutrophils # Man D-Dimer ABG pH ABG pO2 ABG HCO3 ABG O2 Saturation ABG Base Excess ABG Hemoglobin Oxyhemoglobin Sodium Chloride Carbon Dioxide 31 H BUN 19 H Creatinine 0.5 L Glucose 184 H POC Glucose 182 H 227 H Calcium Ferritin AST Lactate Dehydrogenase C-Reactive Protein Total Protein Albumin Coronavirus (PCR) 02/04/21 02/04/21 02/04/21 12:45 14:52 16:45 WBC 4.0 L RBC Hgb MCV 77 L MCH 24 L RDW 15.5 H Plt Count Lymph % (Auto) [place]Brien % (Auto) Lymph # (Auto) Seg Neutrophils % Seg Neuts % (Manual) Lymphocytes % (Manual) Seg Neutrophils # Seg Neutrophils # Man D-Dimer ABG pH ABG pO2 65.6 L ABG HCO3 30.8 H ABG O2 Saturation 94.0 L ABG Base Excess 5.5 H ABG Hemoglobin 10.3 L Oxyhemoglobin 92.3 L Sodium Chloride Carbon Dioxide BUN Creatinine Glucose POC Glucose 194 H Calcium Ferritin AST Lactate Dehydrogenase C-Reactive Protein Total Protein Albumin Coronavirus (PCR) 0502/05/21 02/05/21 22:00 06:55 07:49 WBC RBC Hgb 10.0 L MCV MCH RDW Plt Count Lymph % (Auto) [place]Brien % (Auto) Lymph # (Auto) Seg Neutrophils % Seg Neuts % (Manual) Lymphocytes % (Manual) Seg Neutrophils # Seg Neutrophils # Man D-Dimer ABG pH ABG pO2 ABG HCO3 ABG O2 Saturation ABG Base Excess ABG Hemoglobin Oxyhemoglobin Sodium Chloride Carbon Dioxide BUN Creatinine Glucose POC Glucose 281 H 204 H Calcium Ferritin AST Lactate Dehydrogenase C-Reactive Protein Total Protein Albumin Coronavirus (PCR) 02/05/21 02/05/21 02/05/21 11:23 16:13 16:22 WBC RBC Hgb 10.0 L MCV MCH RDW Plt Count Lymph % (Auto) [place] % (Auto) Lymph # (Auto) Seg Neutrophils % Seg Neuts % (Manual) Lymphocytes % (Manual) Seg Neutrophils # Seg Neutrophils # Man D-Dimer ABG pH ABG pO2 ABG HCO3 ABG O2 Saturation ABG Base Excess ABG Hemoglobin Oxyhemoglobin Sodium Chloride Carbon Dioxide BUN Creatinine Glucose POC Glucose 264 H 202 H Calcium Ferritin AST Lactate Dehydrogenase C-Reactive Protein Total Protein Albumin Coronavirus (PCR) 02/05/21 02/06/21 02/06/21 21:14 04:43 04:43 WBC 4.0 L RBC Hgb 10.0 L MCV 76 L MCH 23 L RDW 15.7 H Plt Count Lymph % (Auto) [place] % (Auto) Lymph # (Auto) Seg Neutrophils % Seg Neuts % (Manual) Lymphocytes % (Manual) Seg Neutrophils # Seg Neutrophils # Man D-Dimer ABG pH ABG pO2 ABG HCO3 ABG O2 Saturation ABG Base Excess ABG Hemoglobin Oxyhemoglobin Sodium Chloride Carbon Dioxide 32 H BUN Creatinine 0.4 L Glucose 163 H POC Glucose 180 H Calcium 8.3 L Ferritin AST Lactate Dehydrogenase C-Reactive Protein Total Protein Albumin Coronavirus (PCR) 02/06/21 02/06/21 02/06/21 08:01 11:44 16:11 WBC RBC Hgb MCV MCH RDW Plt Count Lymph % (Auto) [place]Brien % (Auto) Lymph # (Auto) Seg Neutrophils % Seg Neuts % (Manual) Lymphocytes % (Manual) Seg Neutrophils # Seg Neutrophils # Man D-Dimer ABG pH ABG pO2 ABG HCO3 ABG O2 Saturation ABG Base Excess ABG Hemoglobin Oxyhemoglobin Sodium Chloride Carbon Dioxide BUN Creatinine Glucose POC Glucose 155 H 215 H 247 H Calcium Ferritin AST Lactate Dehydrogenase C-Reactive Protein Total Protein Albumin Coronavirus (PCR) 02/06/21 02/07/21 02/07/21 23:40 08:01 11:54 WBC RBC Hgb MCV MCH RDW Plt Count Lymph % (Auto) [place] % (Auto) Lymph # (Auto) Seg Neutrophils % Seg Neuts % (Manual) Lymphocytes % (Manual) Seg Neutrophils # Seg Neutrophils # Man D-Dimer ABG pH ABG pO2 ABG HCO3 ABG O2 Saturation ABG Base Excess ABG Hemoglobin Oxyhemoglobin Sodium Chloride Carbon Dioxide BUN Creatinine Glucose POC Glucose 267 H 233 H 227 H Calcium Ferritin AST Lactate Dehydrogenase C-Reactive Protein Total Protein Albumin Coronavirus (PCR) 02/07/21 02/07/21 02/07/21 15:48 20:58 20:58 WBC RBC Hgb MCV MCH RDW Plt Count Lymph % (Auto) [place] % (Auto) Lymph # (Auto) Seg Neutrophils % Seg Neuts % (Manual) Lymphocytes % (Manual) Seg Neutrophils # Seg Neutrophils # Man D-Dimer ABG pH ABG pO2 ABG HCO3 ABG O2 Saturation ABG Base Excess ABG Hemoglobin Oxyhemoglobin Sodium Chloride Carbon Dioxide 32 H BUN Creatinine 0.5 L 0.5 L Glucose 236 H POC Glucose 257 H Calcium 8.3 L Ferritin AST Lactate Dehydrogenase C-Reactive Protein Total Protein Albumin Coronavirus (PCR) 02/07/21 02/08/21 02/08/21 22:10 04:46 04:46 WBC 4.2 L RBC Hgb 9.7 L MCV 78 L MCH 24 L RDW 17.9 H Plt Count 110 L Lymph % (Auto) [place]Brien % (Auto) Lymph # (Auto) Seg Neutrophils % Seg Neuts % (Manual) Lymphocytes % (Manual) Seg Neutrophils # Seg Neutrophils # Man D-Dimer ABG pH ABG pO2 ABG HCO3 ABG O2 Saturation ABG Base Excess ABG Hemoglobin Oxyhemoglobin Sodium Chloride Carbon Dioxide BUN Creatinine 0.4 L Glucose 220 H POC Glucose 241 H Calcium 8.0 L Ferritin AST Lactate Dehydrogenase C-Reactive Protein Total Protein Albumin Coronavirus (PCR) 02/08/21 02/08/21 02/08/21 08:05 11:36 15:44 WBC RBC Hgb MCV MCH RDW Plt Count Lymph % (Auto) [place]Brien % (Auto) Lymph # (Auto) Seg Neutrophils % Seg Neuts % (Manual) Lymphocytes % (Manual) Seg Neutrophils # Seg Neutrophils # Man D-Dimer ABG pH ABG pO2 ABG HCO3 ABG O2 Saturation ABG Base Excess ABG Hemoglobin Oxyhemoglobin Sodium Chloride Carbon Dioxide BUN Creatinine Glucose POC Glucose 208 H 200 H 149 H Calcium Ferritin AST Lactate Dehydrogenase C-Reactive Protein Total Protein Albumin Coronavirus (PCR) 02/08/21 02/09/21 02/09/21 21:35 04:24 07:39 WBC RBC Hgb MCV MCH RDW Plt Count Lymph % (Auto) [place]Brien % (Auto) Lymph # (Auto) Seg Neutrophils % Seg Neuts % (Manual) Lymphocytes % (Manual) Seg Neutrophils # Seg Neutrophils # Man D-Dimer ABG pH ABG pO2 ABG HCO3 ABG O2 Saturation ABG Base Excess ABG Hemoglobin Oxyhemoglobin Sodium Chloride Carbon Dioxide BUN Creatinine 0.4 L Glucose 205 H POC Glucose 249 H 205 H Calcium 8.1 L Ferritin AST Lactate Dehydrogenase C-Reactive Protein Total Protein Albumin Coronavirus (PCR) 02/09/21 02/09/21 02/09/21 11:53 16:52 21:26 WBC RBC Hgb MCV MCH RDW Plt Count Lymph % (Auto) [place]Brien % (Auto) Lymph # (Auto) Seg Neutrophils % Seg Neuts % (Manual) Lymphocytes % (Manual) Seg Neutrophils # Seg Neutrophils # Man D-Dimer ABG pH ABG pO2 ABG HCO3 ABG O2 Saturation ABG Base Excess ABG Hemoglobin Oxyhemoglobin Sodium Chloride Carbon Dioxide BUN Creatinine Glucose POC Glucose 303 H 164 H 257 H Calcium Ferritin AST Lactate Dehydrogenase C-Reactive Protein Total Protein Albumin Coronavirus (PCR) 02/10/21 02/10/21 02/10/21 09:30 09:38 11:45 WBC RBC Hgb MCV MCH RDW Plt Count Lymph % (Auto) [place]Brien % (Auto) Lymph # (Auto) Seg Neutrophils % Seg Neuts % (Manual) Lymphocytes % (Manual) Seg Neutrophils # Seg Neutrophils # Man D-Dimer ABG pH 7.309 L ABG pO2 71.2 L ABG HCO3 29.1 H ABG O2 Saturation 92.4 L ABG Base Excess ABG Hemoglobin 11.2 L Oxyhemoglobin 90.2 L Sodium Chloride Carbon Dioxide BUN Creatinine Glucose POC Glucose 240 H 257 H Calcium Ferritin AST Lactate Dehydrogenase C-Reactive Protein Total Protein Albumin Coronavirus (PCR) 02/10/21 02/10/21 02/11/21 17:12 21:26 04:50 WBC RBC Hgb MCV 78 L MCH 24 L RDW 20.3 H Plt Count 133 L Lymph % (Auto) [place]Brien % (Auto) Lymph # (Auto) Seg Neutrophils % Seg Neuts % (Manual) Lymphocytes % (Manual) Seg Neutrophils # Seg Neutrophils # Man D-Dimer ABG pH ABG pO2 ABG HCO3 ABG O2 Saturation ABG Base Excess ABG Hemoglobin Oxyhemoglobin Sodium Chloride Carbon Dioxide BUN Creatinine Glucose POC Glucose 178 H 362 H Calcium Ferritin AST Lactate Dehydrogenase C-Reactive Protein Total Protein Albumin Coronavirus (PCR) 02/11/21 02/11/21 02/11/21 08:02 11:52 17:14 WBC RBC Hgb MCV MCH RDW Plt Count Lymph % (Auto) [place]Brien % (Auto) Lymph # (Auto) Seg Neutrophils % Seg Neuts % (Manual) Lymphocytes % (Manual) Seg Neutrophils # Seg Neutrophils # Man D-Dimer ABG pH ABG pO2 ABG HCO3 ABG O2 Saturation ABG Base Excess ABG Hemoglobin Oxyhemoglobin Sodium Chloride Carbon Dioxide BUN Creatinine Glucose POC Glucose 263 H 433 H 212 H Calcium Ferritin AST Lactate Dehydrogenase C-Reactive Protein Total Protein Albumin Coronavirus (PCR) 02/11/21 02/12/21 02/12/21 21:39 08:24 11:21 WBC RBC Hgb MCV MCH RDW Plt Count Lymph % (Auto) [place]Brien % (Auto) Lymph # (Auto) Seg Neutrophils % Seg Neuts % (Manual) Lymphocytes % (Manual) Seg Neutrophils # Seg Neutrophils # Man D-Dimer ABG pH ABG pO2 ABG HCO3 ABG O2 Saturation ABG Base Excess ABG Hemoglobin Oxyhemoglobin Sodium Chloride Carbon Dioxide BUN Creatinine Glucose POC Glucose 248 H 295 H 403 H Calcium Ferritin AST Lactate Dehydrogenase C-Reactive Protein Total Protein Albumin Coronavirus (PCR) 02/12/21 02/13/21 02/13/21 16:29 07:32 12:19 WBC RBC Hgb MCV MCH RDW Plt Count Lymph % (Auto) [place]Brien % (Auto) Lymph # (Auto) Seg Neutrophils % Seg Neuts % (Manual) Lymphocytes % (Manual) Seg Neutrophils # Seg Neutrophils # Man D-Dimer ABG pH ABG pO2 ABG HCO3 ABG O2 Saturation ABG Base Excess ABG Hemoglobin Oxyhemoglobin Sodium Chloride Carbon Dioxide BUN Creatinine Glucose POC Glucose 238 H 299 H 357 H Calcium Ferritin AST Lactate Dehydrogenase C-Reactive Protein Total Protein Albumin Coronavirus (PCR) 02/13/21 02/13/21 02/14/21 16:28 21:45 07:44 WBC RBC Hgb MCV MCH RDW Plt Count Lymph % (Auto) [place]Brien % (Auto) Lymph # (Auto) Seg Neutrophils % Seg Neuts % (Manual) Lymphocytes % (Manual) Seg Neutrophils # Seg Neutrophils # Man D-Dimer ABG pH ABG pO2 ABG HCO3 ABG O2 Saturation ABG Base Excess ABG Hemoglobin Oxyhemoglobin Sodium Chloride Carbon Dioxide BUN Creatinine Glucose POC Glucose 270 H 346 H 234 H Calcium Ferritin AST Lactate Dehydrogenase C-Reactive Protein Total Protein Albumin Coronavirus (PCR) 02/14/21 02/14/21 02/14/21 11:12 16:40 21:27 WBC RBC Hgb MCV MCH RDW Plt Count Lymph % (Auto) [place]Brien % (Auto) Lymph # (Auto) Seg Neutrophils % Seg Neuts % (Manual) Lymphocytes % (Manual) Seg Neutrophils # Seg Neutrophils # Man D-Dimer ABG pH ABG pO2 ABG HCO3 ABG O2 Saturation ABG Base Excess ABG Hemoglobin Oxyhemoglobin Sodium Chloride Carbon Dioxide BUN Creatinine Glucose POC Glucose 294 H 116 H 159 H Calcium Ferritin AST Lactate Dehydrogenase C-Reactive Protein Total Protein Albumin Coronavirus (PCR) 02/15/21 02/15/21 02/15/21 07:58 11:41 16:41 WBC RBC Hgb MCV MCH RDW Plt Count Lymph % (Auto) [place] % (Auto) Lymph # (Auto) Seg Neutrophils % Seg Neuts % (Manual) Lymphocytes % (Manual) Seg Neutrophils # Seg Neutrophils # Man D-Dimer ABG pH ABG pO2 ABG HCO3 ABG O2 Saturation ABG Base Excess ABG Hemoglobin Oxyhemoglobin Sodium Chloride Carbon Dioxide BUN Creatinine Glucose POC Glucose 225 H 325 H 148 H Calcium Ferritin AST Lactate Dehydrogenase C-Reactive Protein Total Protein Albumin Coronavirus (PCR) 02/15/21 02/16/21 02/16/21 22:29 07:55 11:02 WBC RBC Hgb MCV MCH RDW Plt Count Lymph % (Auto) [place]Brien % (Auto) Lymph # (Auto) Seg Neutrophils % Seg Neuts % (Manual) Lymphocytes % (Manual) Seg Neutrophils # Seg Neutrophils # Man D-Dimer ABG pH ABG pO2 ABG HCO3 ABG O2 Saturation ABG Base Excess ABG Hemoglobin Oxyhemoglobin Sodium Chloride Carbon Dioxide BUN Creatinine Glucose POC Glucose 239 H 138 H 337 H Calcium Ferritin AST Lactate Dehydrogenase C-Reactive Protein Total Protein Albumin Coronavirus (PCR) 02/16/21 02/16/21 02/17/21 16:41 21:46 06:53 WBC RBC Hgb MCV 78 L MCH 24 L RDW 18.9 H Plt Count Lymph % (Auto) [place]Brien % (Auto) Lymph # (Auto) Seg Neutrophils % Seg Neuts % (Manual) Lymphocytes % (Manual) Seg Neutrophils # Seg Neutrophils # Man D-Dimer ABG pH ABG pO2 ABG HCO3 ABG O2 Saturation ABG Base Excess ABG Hemoglobin Oxyhemoglobin Sodium Chloride Carbon Dioxide BUN Creatinine Glucose POC Glucose 138 H 286 H Calcium Ferritin AST Lactate Dehydrogenase C-Reactive Protein Total Protein Albumin Coronavirus (PCR) 02/17/21 02/17/21 02/17/21 06:53 07:37 11:12 WBC RBC Hgb MCV MCH RDW Plt Count Lymph % (Auto) [place] % (Auto) Lymph # (Auto) Seg Neutrophils % Seg Neuts % (Manual) Lymphocytes % (Manual) Seg Neutrophils # Seg Neutrophils # Man D-Dimer ABG pH ABG pO2 ABG HCO3 ABG O2 Saturation ABG Base Excess ABG Hemoglobin Oxyhemoglobin Sodium Chloride Carbon Dioxide 31 H BUN 20 H Creatinine 0.4 L Glucose 238 H POC Glucose 251 H 221 H Calcium Ferritin AST Lactate Dehydrogenase C-Reactive Protein Total Protein Albumin Coronavirus (PCR) 02/17/21 02/17/21 02/18/21 16:36 21:21 08:01 WBC RBC Hgb MCV MCH RDW Plt Count Lymph % (Auto) [place] % (Auto) Lymph # (Auto) Seg Neutrophils % Seg Neuts % (Manual) Lymphocytes % (Manual) Seg Neutrophils # Seg Neutrophils # Man D-Dimer ABG pH ABG pO2 ABG HCO3 ABG O2 Saturation ABG Base Excess ABG Hemoglobin Oxyhemoglobin Sodium Chloride Carbon Dioxide BUN Creatinine Glucose POC Glucose 213 H 185 H 280 H Calcium Ferritin AST Lactate Dehydrogenase C-Reactive Protein Total Protein Albumin Coronavirus (PCR) 02/18/21 02/18/21 02/18/21 11:55 15:33 21:48 WBC RBC Hgb MCV MCH RDW Plt Count Lymph % (Auto) [place] % (Auto) Lymph # (Auto) Seg Neutrophils % Seg Neuts % (Manual) Lymphocytes % (Manual) Seg Neutrophils # Seg Neutrophils # Man D-Dimer ABG pH ABG pO2 ABG HCO3 ABG O2 Saturation ABG Base Excess ABG Hemoglobin Oxyhemoglobin Sodium Chloride Carbon Dioxide BUN Creatinine Glucose POC Glucose 303 H 276 H 288 H Calcium Ferritin AST Lactate Dehydrogenase C-Reactive Protein Total Protein Albumin Coronavirus (PCR) 02/19/21 02/19/21 02/19/21 08:22 12:05 17:18 WBC RBC Hgb MCV MCH RDW Plt Count Lymph % (Auto) [place] % (Auto) Lymph # (Auto) Seg Neutrophils % Seg Neuts % (Manual) Lymphocytes % (Manual) Seg Neutrophils # Seg Neutrophils # Man D-Dimer ABG pH ABG pO2 ABG HCO3 ABG O2 Saturation ABG Base Excess ABG Hemoglobin Oxyhemoglobin Sodium Chloride Carbon Dioxide BUN Creatinine Glucose POC Glucose 247 H 274 H 135 H Calcium Ferritin AST Lactate Dehydrogenase C-Reactive Protein Total Protein Albumin Coronavirus (PCR) 02/19/21 02/20/21 02/20/21 21:11 08:00 10:54 WBC RBC Hgb MCV 78 L MCH 24 L RDW 18.4 H Plt Count Lymph % (Auto) 6.6 L [place]Brien % (Auto) Lymph # (Auto) 0.5 L Seg Neutrophils % 89.2 H Seg Neuts % (Manual) Lymphocytes % (Manual) Seg Neutrophils # Seg Neutrophils # Man D-Dimer ABG pH ABG pO2 ABG HCO3 ABG O2 Saturation ABG Base Excess ABG Hemoglobin Oxyhemoglobin Sodium Chloride Carbon Dioxide BUN Creatinine Glucose POC Glucose 341 H 238 H Calcium Ferritin AST Lactate Dehydrogenase C-Reactive Protein Total Protein Albumin Coronavirus (PCR) 02/20/21 02/20/21 02/20/21 10:54 11:16 17:27 WBC RBC Hgb MCV MCH RDW Plt Count Lymph % (Auto) [place] % (Auto) Lymph # (Auto) Seg Neutrophils % Seg Neuts % (Manual) Lymphocytes % (Manual) Seg Neutrophils # Seg Neutrophils # Man D-Dimer ABG pH ABG pO2 ABG HCO3 ABG O2 Saturation ABG Base Excess ABG Hemoglobin Oxyhemoglobin Sodium Chloride 97.8 L Carbon Dioxide BUN 22 H Creatinine 0.5 L Glucose 297 H POC Glucose 305 H 256 H Calcium Ferritin AST Lactate Dehydrogenase C-Reactive Protein Total Protein Albumin Coronavirus (PCR) 02/20/21 02/21/21 21:06 07:36 WBC RBC Hgb MCV MCH RDW Plt Count Lymph % (Auto) [place] % (Auto) Lymph # (Auto) Seg Neutrophils % Seg Neuts % (Manual) Lymphocytes % (Manual) Seg Neutrophils # Seg Neutrophils # Man D-Dimer ABG pH ABG pO2 ABG HCO3 ABG O2 Saturation ABG Base Excess ABG Hemoglobin Oxyhemoglobin Sodium Chloride Carbon Dioxide BUN Creatinine Glucose POC Glucose 235 H 357 H Calcium Ferritin AST Lactate Dehydrogenase C-Reactive Protein Total Protein Albumin Coronavirus (PCR)
[2021-02-21] MEDS: INSULIN GLARGINE 100 UNITS/ML SUB-Q SCH ×2 (22:31→22:48)
[2021-02-21] MEDS: MIRTAZAPINE 15 MG TAB PO SCH ×2 (22:38→22:48)
[2021-02-22] MEDS: methylPREDNISolone Sod Succinate 40 MG/1 ML INJ IV SCH (07:14)
[2021-02-22] MEDS: INSULIN LISPRO 100 UNIT/ML SUB-Q SCH ×4 (08:57→22:59)
--- NOTE | 2021-02-22 09:39 | Progress Note ---
Assessment and Plan Assessment and plan: This is a 55-year-old female with schizophrenia who presented to [facility] on 01/18 for shortness of breath, cough, subjective fever and not feeling well for the last couple days with known COVID-19 exposure. While in the emergency room patient was switched from non rebreather mask to high flow nasal cannula and his CTA chest showed no acute pulmonary embolism. Patient was admitted to the hospital service as a COVID-19 PUI with consults to [facility], infectious disease, psych. 01/18/2021 -Acute hypoxic respiratory failure requiring high flow oxygen 40 L. Nebulizer treatment -Patient is admitted for suspected Covid pneumonia. Patient is on dexamethasone, COVID-19 test is pending. Patient is on empiric antibiotics. -ID consulted, will consult pulmonary. -Patient has hyponatremia yesterday and I will repeat and if it is low I will manage accordingly -Patient has elevated D-dimer and CTA chest and bilateral Doppler ultrasound of the lower extremities pending 01/19/2021 -Acute hypoxic respiratory failure currently on BiPAP, nebulizer treatment. I will put in orders to transfer to [facility] yesterday but there was no bed. -Patient is positive for Covid and she is on Decadron and remdesivir. Actemra was ordered on 01/19/2021 -ID evaluated the patient and recommend to continue Decadron and remdesivir, also to continue ceftriaxone and azithromycin for 5 days because of the elevated procalcitonin level. Pulmonary was consulted and recommend to continue current management and add Lasix -CTA chest was done and significant for bilateral pulmonary opacities, negative for PE, Doppler ultrasound of the lower extremities was negative for DVT. -Prognosis is guarded. -Patient is currently on BiPAP and she was agitated and trying to take off the BiPAP, I put the patient on restraints. Discussed with manager housekeeping to transfer the patient to IM and if there is no bed she need to be transferred to CCU. 01/20: Patient received 5 mg of Haldol for severe agitation and refusal to keep high flow nasal cannula in place. [facility] ordered Lasix again. Psych was consulted today. Patient was on BiPAP therapy all night and RT attempted to give her a break patient is on high flow nasal cannula however she did not keep this in place and was paced back on BiPAP after receiving Haldol. She was started on Lantus today. 01/21: Patient is on BiPAP and on time examination was on 20/10 100% FiO2. Patient was started on Lantus. Psych consult completed and started on Haldol p.o. twice daily and Mirtazepin PO daily. No acute events reported overnight. Patient's D-dimer is greater than 10,000 started on prophylactic Lovenox as recent CTA chest and bilateral lower extremity Doppler ultrasound were negative. 01/22: Patient has been taken off BiPAP therapy and placed on high flow nasal cannula. Patient has been downgraded to IMCU. Patient's hyponatremia and hypochloremia have worsened. 01/23: Patient was on BiPAP overnight with FiO2 85% and IPAP 20/EPAP 10. Patient currently with high flow nasal cannula 40 L O2 with an FiO2 of 100%. Continue remdesivir and dexamethasone. Patient is s/p Actemra on 01/20. Continue empiric antibiotics per ID recommendations. Continue anticoagulation per protocol. 01/24: Patient is tachycardic and hypertensive and [facility] has opted to add amlodipine. Patient remains on 40 L 100% high flow nasal cannula. Continue remdesivir and dexamethasone. Patient is s/p Actemra on 01/20. Continue empiric antibiotics per ID recommendations. Continue anticoagulation per protocol. 01/25: Patient currently with high flow nasal cannula 40 L/min with FiO2 100%. Continue dexamethasone. Patient has completed remdesivir and s/p Actemra on 01/20. Continue full dose anticoagulation given high elevated D-dimer. Continue to trend inflammatory markers. Prognosis remains guarded. 01/26: Patient currently with high flow nasal cannula 35 L/min and FiO2 90%. Continue dexamethasone. Patient has completed remdesivir and s/p Actemra on 01/20. Continue full dose anticoagulation given high elevated D-dimer. Continue to trend inflammatory markers. Prognosis remains guarded. 01/27: Patient currently with high flow nasal cannula/Vapotherm 35 L/min O2 with FiO2 90%. Patient has completed remdesivir and s/p Actemra on 01/20. Continue full dose anticoagulation given high elevated D-dimer. Continue to trend inflammatory markers. Prognosis remains guarded. 01/28; Patient currently with high flow nasal cannula/Vapotherm 35 L/min O2 with FiO2 90%. Patient has completed remdesivir and s/p Actemra on 01/20. Continue full dose anticoagulation given high elevated D-dimer. Continue to trend inflammatory markers. Prognosis remains guarded. 01/29; patient is currently on 35 L of high flow oxygen. Prognosis guarded. Patient can be transferred to regular floor. 01/30/2021; patient is currently on 35 L of high flow oxygen, FiO2 of 65%. Patient has flat affect and did not talk to me. Patient refused most of her p.o. medications. Patient finished remdesivir, steroid. 01/31/2021; patient is on 35 L of high flow oxygen, FiO2 65%. Patient was calm and cooperative and communicative today. pulmonary is following. Patient finished remdesivir and steroid. 02/01/2021; patient was on 40 L of high flow oxygen.. I have called and discussed with her mother yesterday. Her mother told me patient was last followed at [facility] and I called facility and they told me medication she was on and I put these medications. Patient refused to eat so I put the patient on NG tube feeding for medications. Prognosis is guarded. 02/02/2021; patient is on 4 L of high flow oxygen with FiO2 of 60%. Her outpatient psych medications were reconciled. Patient was taking medications and as needed NG tube. Pulmonary is following the patient. 02/03/21: Patient noted with mild epistaxis this morning we will order some Afrin to help. Continue current management patient is on 35 L high flow. No worsening distress but still with intermittent confusion sometimes takes off the oxygen. Will repeat a trial of Lasix and monitor renal function with a.m. labs. Plan discussed with nurse at bedside. I also encouraged proning again. 02/04: Unfortunately still with hypoxia desaturating required increased to 50 L and 70% will gradually taper down. Patient due to her underlying psych history of schizophrenia is noncompliant. Daughter is working on getting guardianship over the patient. This will likely be a slow process nevertheless we will still obtain a CT of the head to ensure no other pathology. We will get an ABG and a chest x-ray today. 02/05: Patient overnight had an episode where she coughed up blood. H&H has remained stable. She has been since discontinued from full dose anticoagulants to DVT prophylactic dose. Chest x-ray shows mild worsening of congestion. Will discuss with pulmonary if patient will benefit from BiPAP during hours of sleep. Still awaiting information from family on prior psych medications that the patient was on psych review with psychiatry team as her mental status remains a deterrent and an impediment to oxygen management. We will give a trial dose of Lasix x 3 days. Will transfer to [facility] for closer monitoring 02/06: Continue supportive care, 2 more days of lasix, monitor BMP closely wean oxygen as tolerated, pulmonary input noted 02/07: Continues on High flow. Refusing medications, still with severe hypoxia, Discussed with Psych to re-evaluate the patient. 02/08: Unfortunately patient was not seen by psych yesterday and I still do not have home medication listed I asked the family and they promised to bring her in. We discussed with nursing staff to ask again. We will also reconsult psych as her underlying psych condition is precluding improvement due to her refusal of medical treatments. Patient continues on high flow 10 today will be to further wean down if tolerated. She is still refusing prone position 02/09: Patient remains on oxygen, not compliance, continues on restraints to assist with compliance, will try to wean again 02/10: Restart lasix, discussed with Roll Forger considering starting on PrECEDEX, Monitor electrolytes. Prognosis is guarded. 02/11/2021; patient is on Lasix, Precedex and Solu-Medrol 40 mg every 8 hours. Patient's blood sugar is elevated and I increase Lantus from 20-25 nightly, give her a dose of 10 units of Lantus now. Will monitor blood sugar. Prognosis very poor. 02/12/2021; patient is on 40 L of high flow oxygen, 94% FiO2. Pulmonary is following the patient and recommendations noted. Dr Mancilla Discussed with the patient and the mother about the plan of care and the high risk of her condition and refusal of care. 02/13/2021; patient was on 30 L of high flow oxygen with FiO2 of 90%. Pulmonary is following the patient. Continue [facility] [place]. Prognosis is guarded. 02/14/2021; patient is on 30 L of high flow oxygen with FiO2 of 90%. Continue inpatient care. 02/15/2021; patient was alert and oriented. Patient states she is feeling okay today. Patient is on 30 L of high flow oxygen with FiO2 of 90%. Patient was given Lasix yesterday. Wean as tolerated. 02/16/2021; patient was alert and oriented. Patient states she is feeling better . Patient is on 25 L of high flow oxygen with FiO2 of 75%. Wean oxygen as tolerated. 02/17: Continue supportive care. Continue to wean as tolerated. Blood sugar 251 mildly elevated will adjust insulin for better control as patient still on steroids Lasix today per Pulmonary no indication to wean steroids until lower FiO2 obtained. 02/18: Agree with intermittent Lasix. Discussed with case management about possible LTAC no Medicaid bed available per documentation. We will continue to follow for now we will continue aggressive weaning of oxygen. 02/19: Patient continues on high flow receiving intermittent Lasix with pulmonary guidance. Continue current management and weaning off oxygen. Continue passive range of motion while in bed. Fall precautions. 02/20: Continue supportive care, continue under pulmonary guidance, continue pressure ulcer prevention techniques. Discussed with team to ensure patient is moving, being turned q2hrs and daily skin integrity exam 02/21: This morning found patient on 8 L nasal cannula satting 97% down to 5 L and she still satting 95 to 97% after 4 hours. I have further decreased it to 3 L of oxygen and I have discussed with nursing staff to recheck it again in the next 2 hours and also ambulate the patient on 3 L of oxygen. She does not demonstrate any further respiratory distress worsening. We will continue current management and adjust as needed. Case management looking for placement 02/22: On 3 L of oxygen patient saturation dropped to the 80s 89-91 range. Patient back up to 5 L because this was at rest. Continue steroids will discuss with ID if this can be changed to p.o. steroids. Will give additional dose of Lasix today. Encourage some physical therapy sitting up and any activity to prevent debility. Severe COVID-19 pneumonia Acute hypoxic respiratory failure Obesity Schizophrenia Leukocytosis Hyperglycemia Schizophrenia Hypernatremia Hypercholermia -CCM, infectious disease, psychiatry consulted, appreciate recommendations -COVID-19 PCR positive -Droplet/contact isolation -Remdesivir, azithromycin, ceftriaxone, dexamethasone (twice daily dosing) -s/p Actemra -Wean supplemental oxygen as tolerated, pulmonary hygiene -Prone as tolerated -Trend COVID-19 inflammatory markers for risk stratification, CBC, CMP -SSI, Lantus -01/18 bilateral lower extremity Doppler ultrasound negative for DVT -01/17 CTA shows no evidence of pulmonary embolism, extensive bilateral pneumonia, hepatomegaly with hepatic steatosis History Interval history: Patient seen and examined, no new complaints, improving mental status. Patient continues on 5 L of oxygen no visible shortness of breath at rest will evaluate with exertion. Hospitalist Physical - Physical exam Narrative exam: Patient was 8 L of oxygen nasal cannula The patient appeared well nourished and normally developed. Vital signs as documented. Head exam is unremarkable. No scleral icterus . Neck is without jugular venous distension, thyromegaly, or carotid bruits. Lungs decreased air entry on both lungs Cardiac exam reveals regular rate and Rhythm. Abdominal exam reveals normal bowel sounds, nontender, no organomegaly. Extremities are nonedematous and both femoral and pedal pulses are normal. 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 X1 to person but confused place and time - Constitutional Vitals: Temp Pulse Resp BP Pulse Ox 97.6 F 75 14 152/76 95 02/22/21 03:28 02/22/21 03:28 02/22/21 03:28 02/22/21 03:28 02/22/21 03:28 General appearance: Present: no acute distress, well-nourished HEART Score - HEART Score Troponin: Troponin T < 0.010 ng/mL (0.00-0.029) 01/17/21 16:41 Results - Labs CBC & Chem 7: 02/20/21 10:54 02/20/21 10:54 Labs: Laboratory Last Values WBC 8.0 K/mm3 (4.5-11.0) 02/20/21 10:54 RBC 4.40 M/mm3 (3.65-5.03) 02/20/21 10:54 Hgb 10.5 gm/dl (10.1-14.3) 02/20/21 10:54 Hct 34.1 % (30.3-42.9) 02/20/21 10:54 MCV 78 fl (79-97) L 02/20/21 10:54 MCH 24 pg (28-32) L 02/20/21 10:54 MCHC 31 % (30-34) 02/20/21 10:54 RDW 18.4 % (13.2-15.2) H 02/20/21 10:54 Plt Count 355 K/mm3 (140-440) 02/20/21 10:54 Lymph % (Auto) 6.6 % (13.4-35.0) L 02/20/21 10:54 Benson % (Auto) 3.5 % (0.0-7.3) 02/20/21 10:54 Eos % (Auto) 0.0 % (0.0-4.3) 02/20/21 10:54 Baso % (Auto) 0.7 % (0.0-1.8) 02/20/21 10:54 Lymph # (Auto) 0.5 K/mm3 (1.2-5.4) L 02/20/21 10:54 Benson # (Auto) 0.3 K/mm3 (0.0-0.8) 02/20/21 10:54 Eos # (Auto) 0.0 K/mm3 (0.0-0.4) 02/20/21 10:54 Baso # (Auto) 0.1 K/mm3 (0.0-0.1) 02/20/21 10:54 Add Manual Diff Complete 01/19/21 05:11 Total Counted 100 01/19/21 05:11 Seg Neutrophils % 89.2 % (40.0-70.0) H 02/20/21 10:54 Seg Neuts % (Manual) 88.0 % (40.0-70.0) H 01/19/21 05:11 Lymphocytes % (Manual) 10.0 % (13.4-35.0) L 01/19/21 05:11 Monocytes % (Manual) 2.0 % (0.0-7.3) 01/19/21 05:11 Nucleated RBC % Not Reportable 01/19/21 05:11 Seg Neutrophils # 7.2 K/mm3 (1.8-7.7) 02/20/21 10:54 Seg Neutrophils # Man 12.5 K/mm3 (1.8-7.7) H 01/19/21 05:11 Band Neutrophils # 0.0 K/mm3 01/19/21 05:11 Lymphocytes # (Manual) 1.4 K/mm3 (1.2-5.4) 01/19/21 05:11 Abs React Lymphs (Man) 0.0 K/mm3 01/19/21 05:11 Monocytes # (Manual) 0.3 K/mm3 (0.0-0.8) 01/19/21 05:11 Eosinophils # (Manual) 0.0 K/mm3 (0.0-0.4) 01/19/21 05:11 Basophils # (Manual) 0.0 K/mm3 (0.0-0.1) 01/19/21 05:11 Metamyelocytes # 0.0 K/mm3 01/19/21 05:11 Myelocytes # 0.0 K/mm3 01/19/21 05:11 Promyelocytes # 0.0 K/mm3 01/19/21 05:11 Blast Cells # 0.0 K/mm3 01/19/21 05:11 WBC Morphology Not Reportable 01/19/21 05:11 Hypersegmented Neuts Not Reportable 01/19/21 05:11 Hyposegmented Neuts Not Reportable 01/19/21 05:11 Hypogranular Neuts Not Reportable 01/19/21 05:11 Smudge Cells Not Reportable 01/19/21 05:11 Toxic Granulation Not Reportable 01/19/21 05:11 Toxic Vacuolation Not Reportable 01/19/21 05:11 Dohle Bodies Not Reportable 01/19/21 05:11 Pelger-Huet Anomaly Not Reportable 01/19/21 05:11 Inder Rods Not Reportable 01/19/21 05:11 Platelet Estimate Consistent w auto 01/19/21 05:11 Clumped Platelets Not Reportable 01/19/21 05:11 Plt Clumps, EDTA Not Reportable 01/19/21 05:11 Large Platelets Not Reportable 01/19/21 05:11 Giant Platelets Not Reportable 01/19/21 05:11 Platelet Satelliting Not Reportable 01/19/21 05:11 Plt Morphology Comment Not Reportable 01/19/21 05:11 RBC Morphology Not Reportable 01/19/21 05:11 Dimorphic RBCs Not Reportable 01/19/21 05:11 Polychromasia Not Reportable 01/19/21 05:11 Hypochromasia 1+ 01/19/21 05:11 Poikilocytosis Not Reportable 01/19/21 05:11 Anisocytosis Not Reportable 01/19/21 05:11 Microcytosis Not Reportable 01/19/21 05:11 Macrocytosis Not Reportable 01/19/21 05:11 Spherocytes Not Reportable 01/19/21 05:11 Pappenheimer Bodies Not Reportable 01/19/21 05:11 Sickle Cells Not Reportable 01/19/21 05:11 Target Cells Not Reportable 01/19/21 05:11 Tear Drop Cells Not Reportable 01/19/21 05:11 Ovalocytes Not Reportable 01/19/21 05:11 Helmet Cells Not Reportable 01/19/21 05:11 [place] Bodies Not Reportable 01/19/21 05:11 [place] Rings Not Reportable 01/19/21 05:11 [place] Cells Not Reportable 01/19/21 05:11 Bite Cells Not Reportable 01/19/21 05:11 Crenated Cell Not Reportable 01/19/21 05:11 Elliptocytes Not Reportable 01/19/21 05:11 Acanthocytes (Spur) Not Reportable 01/19/21 05:11 Rouleaux Not Reportable 01/19/21 05:11 Hemoglobin C Crystals Not Reportable 01/19/21 05:11 Schistocytes Not Reportable 01/19/21 05:11 Malaria parasites Not Reportable 01/19/21 05:11 Chai Bodies Not Reportable 01/19/21 05:11 Hem Pathologist Commnt No 01/19/21 05:11 PT 13.6 Sec. (12.2-14.9) 02/04/21 14:52 INR 1.06 (0.87-1.13) 02/04/21 14:52 APTT 30.7 Sec. (24.2-36.6) 02/04/21 14:52 D-Dimer 1884.49 ng/mlDDU (0-234) H 01/28/21 08:46 ABG pH 7.309 pH Units (7.350-7.450) L 02/10/21 09:30 ABG pCO2 59.4 mm Hg 02/10/21 09:30 ABG pO2 71.2 mm Hg (80.0-90.0) L 02/10/21 09:30 ABG HCO3 29.1 mmol/L (20.0-26.0) H 02/10/21 09:30 ABG O2 Saturation 92.4 % (95.0-99.0) L 02/10/21 09:30 ABG O2 Content 14.2 (0.0-44) 02/10/21 09:30 ABG Base Excess 1.8 mmol/L (-2.0-3.0) 02/10/21 09:30 ABG Hemoglobin 11.2 gm/dl (12.0-16.0) L 02/10/21 09:30 ABG Carboxyhemoglobin 1.8 % (0.0-5.0) 02/10/21 09:30 ABG Methemoglobin 0.6 % (0.0-1.5) 02/10/21 09:30 Oxyhemoglobin 90.2 % (95.0-99.0) L 02/10/21 09:30 FiO2 100 % 02/10/21 09:30 Sodium 139 mmol/L (137-145) 02/20/21 10:54 Potassium 4.8 mmol/L (3.6-5.0) 02/20/21 10:54 Chloride 97.8 mmol/L (98-107) L 02/20/21 10:54 Carbon Dioxide 29 mmol/L (22-30) 02/20/21 10:54 Anion Gap 17 mmol/L 02/20/21 10:54 BUN 22 mg/dL (7-17) H 02/20/21 10:54 Creatinine 0.5 mg/dL (0.6-1.2) L 02/20/21 10:54 Estimated GFR > 60 ml/min 02/20/21 10:54 BUN/Creatinine Ratio 44 % 02/20/21 10:54 Glucose 297 mg/dL (65-100) H 02/20/21 10:54 POC Glucose 333 mg/dL (70-105) H 02/21/21 21:48 Lactic Acid 1.70 mmol/L (0.7-2.0) 01/17/21 16:41 Calcium 9.0 mg/dL (8.4-10.2) 02/20/21 10:54 Ferritin 797.7 ng/mL (10.0-200.0) H 01/28/21 08:46 Total Bilirubin 0.30 mg/dL (0.1-1.2) 01/21/21 11:29 AST 34 units/L (5-40) 01/21/21 11:29 ALT 38 units/L (7-56) 01/21/21 11:29 Alkaline Phosphatase 117 units/L (35-129) 01/21/21 11:29 Ammonia 43.0 umol/L (25-60) 02/04/21 14:52 Lactate Dehydrogenase 556 units/L (91-180) H 01/28/21 08:46 Troponin T < 0.010 ng/mL (0.00-0.029) 01/17/21 16:41 C-Reactive Protein 0.20 mg/dL (0.00-1.30) 01/28/21 08:46 NT-Pro-B Natriuret Pep 40.88 pg/mL (0-900) 01/17/21 16:41 Total Protein 7.3 g/dL (6.3-8.2) 01/21/21 11:29 Albumin 3.4 g/dL (3.9-5) L 01/21/21 11:29 Albumin/Globulin Ratio 0.9 % 01/21/21 11:29 Procalcitonin 0.39 ng/mL (<0.15) 01/17/21 17:46 Coronavirus (PCR) Negative (Negative) 02/11/21 09:10 Estrada/IV: Voiding Method Bedside Commode Active Medications - Current Medications Current Medications: Generic Name Dose Route Start Last Admin Trade Name Freq PRN Reason Stop Dose Admin Albuterol 2 puff 02/17/21 19:51 Albuterol 8.5 Gm Mdi Inhalation IH Q4HRT PRN Shortness Of Breath Apixaban 2.5 mg 02/04/21 22:00 02/21/21 21:39 Apixaban 2.5 Mg Tab PO 2.5 mg Q12HR PJ Administration Protocol Aripiprazole 15 mg 01/31/21 13:00 02/21/21 10:05 Aripiprazole 15 Mg Tab PO 15 mg QDAY PJ Administration Ascorbic Acid 1,000 mg 02/04/21 10:00 02/21/21 21:39 Ascorbic Acid 500 Mg Tab PO 1,000 mg BID PJ Administration Cholecalciferol 5,000 unit 02/04/21 10:00 02/21/21 10:06 Cholecalciferol (Vit D3) 5,000 Unit Tab PO 5,000 unit DAILY PJ Administration Divalproex Sodium 500 mg 01/31/21 12:00 02/21/21 10:06 Divalproex Er 500 Mg Tab PO 500 mg QDAY PJ Administration Famotidine 20 mg 01/18/21 10:00 02/21/21 21:39 Famotidine 20 Mg Tab PO 20 mg BID PJ Administration Hydralazine HCl 10 mg 01/18/21 00:38 02/14/21 06:22 Hydralazine 20 Mg/1 Ml Inj IV 10 mg Q6H PRN Administration htn Hydromorphone HCl 0.5 mg 01/20/21 11:00 02/18/21 07:55 Hydromorphone 1 Mg/1 Ml Inj IV 0.5 mg Q6H PRN Administration Pain , Severe (7-10) Hydrophilic Ointment 1 applic 02/03/21 12:00 Petrolatum,White 30 Gm Oint TP PRN PRN Skin Irritation Insulin Glargine 30 units 02/22/21 09:28 Insulin Glargine 100 Units/Ml SUB-Q QHS [facility] Insulin Human Lispro 0 unit 02/01/21 11:30 02/22/21 08:57 Insulin Lispro 100 Unit/Ml SUB-Q Not Given ACHS [facility] Protocol Methylprednisolone Sodium Succinate 40 mg 02/10/21 14:00 02/22/21 07:14 Methylprednisolone Sod Succinate 40 Mg/1 Ml Inj IV Not Given Q8HR [facility] Metoprolol Tartrate 12.5 mg 02/01/21 12:00 02/21/21 22:35 Metoprolol Tartrate 25 Mg Tab PO 12.5 mg BID PJ Administration Mirtazapine 7.5 mg 01/21/21 22:00 02/21/21 22:48 Mirtazapine 15 Mg Tab PO Not Given QHS [facility] Oxymetazoline HCl 2 spray 02/03/21 12:00 02/03/21 13:17 Oxymetazoline 0.05% Nasal [place] NS 2 spray Q12H PRN Administration Congestion Paliperidone 6 mg 01/31/21 13:00 02/21/21 10:05 Paliperidone Er 3 Mg Tab PO 6 mg QDAY PJ Administration Sodium Chloride 10 ml 01/18/21 10:00 02/21/21 21:40 Sodium Chloride 0.9% 10 Ml Flush Syringe IV 10 ml BID PJ Administration Zinc Sulfate 220 mg 02/04/21 10:00 02/21/21 10:06 Zinc Sulfate 220 Mg Cap PO 220 mg QDAY PJ Administration Nutrition/Malnutrition Assess - Dietary Evaluation Nutrition/Malnutrition Findings: Nutrition Notes Start: 01/24/21 10:40 Freq: Status: Active Protocol: Document 02/18/21 10:32 AL (Rec: 02/18/21 10:36 AL [id number]) Co-Sign 02/18/21 10:32 LP Nutrition Notes Initial or Follow up Brief Note Current Diagnosis Respiratory Failure Other Pertinent Diagnosis pneu, AMS Current Diet Cardiac/Consistent CHO Height 5 ft 4 in Weight 94 kg [place] Body Weight (kg) 54.54 BMI 35.5 Weight Status Obese Subjective/Other Information F/u for stable intakes.Per ADL and pt, she is tolerating meals at 75-100% and has a stable appetite. She states eating "very well." Nutrition Intervention Anticipated Discharge Needs: Cardiac/Consistent CHO Revisit per MD consult or patient Sign Off request:
[2021-02-22] MEDS: METOPROLOL TARTRATE 25 MG TAB PO SCH ×2 (10:12→23:03)
[2021-02-22] MEDS: CHOLECALCIFEROL (VIT D3) 5,000 UNIT TAB PO SCH (10:12)
[2021-02-22] MEDS: ASCORBIC ACID 500 MG TAB PO SCH ×2 (10:12→23:01)
[2021-02-22] MEDS: ZINC SULFATE 220 MG CAP PO SCH (10:14)
[2021-02-22] MEDS: FAMOTIDINE 20 MG TAB PO SCH ×2 (10:14→23:00)
[2021-02-22] MEDS: ARIPiprazole 15 MG TAB PO SCH (10:14)
[2021-02-22] MEDS: DIVALPROEX ER 500 MG TAB PO SCH (10:14)
[2021-02-22] MEDS: APIXABAN 2.5 MG TAB PO SCH ×2 (10:14→23:02)
[2021-02-22] MEDS: PALIPERIDONE ER 3 MG TAB PO SCH (10:15)
[2021-02-22] MEDS: FUROSEMIDE 40 MG/4 ML INJ IV SCH (10:15)
--- NOTE | 2021-02-22 12:52 | Progress Note ---
Assessment and Plan 55 y/o female admitted with acute respiratory failure secondary to pneumonia, positive for Sars CoV2 02/22/2021: Patient fairly stable on nasal cannula. Await evaluation for need for home oxygen. Possible discharge soon 02/21/21: Continue wean. Patient was not on oxygen prior to admit. However 3 liters is stable for discharge if patient qualifies. Can follow up in the office in the next 10-14 days once discharged. 02/20/21: Lasix again today patient is doing very well with this. would recommend checking a chemistry to make sure potassium and renal function are still ok. Continue aggressive weaning of HFNC. Close to a point where we can start weaning steroids. 02/19/21: Lasix 40mg IV again today. Patient is tolerating well. No weaning of steroids just yet but almost off HFNC. Once off, can start to wean. Still wou ld send out referrals to LTACH just in case. Will Continue to follow with you. Continue to wean for sats >88% 02/18/21: Lasix 40mg IV x1 today. Continue to wean FiO2 for sats >88%. Suggest asking CM if patient would be a good LTACH candidate. Continue steroids for now. Will continue to follow. 02/17/21: Lasix again today. Will start to wean steroids once on lower liter flow of oxygen. Not concerned about elevated bicarb on chemistry and does not need diamox therapy at this time. Will continue to follow. 02/16/21: Lasix again today. Sats improving and oxygen requirement is coming d own. Continue steroids. Last chemistry was several days ago. Will check again in am. may need BID lasix. 02/15/21: Lasix today. Continue current dose of steroids. Prone if possible. 02/14/21: lasix again today. Prone if possible. Continue steroids. Guarded Prognosis 02/13/21: ordered more lasix for today. Monitor strict I/O. Prone if patient will allow. Continue steroids. 02/12/18: continue lasix therapy daily. Prone if possible. Guarded prognosis. continue steroids 02/11/21: [facility] has ordered lasix daily for 3 days, will continue to monitor. May need to give an additional dose later tonight. Long discussion at bedside this am about he importance of wearing bipap at night and what that means to her overall health. Will discuss with family too. Overall prognosis is very guarded. Will do our best to not intubate this patient given her morbid obesity as this would increase her mortality rate tremendously. Please continue to document refusal of therapy when appropriate. 02/10/21: Lasix today, 40 IV. Will attempt precedex to see if this will help with mental state and cooperation in care. Will also restart steroids but use solumedrol 40q8 dosing. May need to consider adding back the Haldol PRN as well. Guarded prognosis. Will attempt our best to not intubate this patient as her mortality would be extremely high if intubated given her morbid obesity. 02/02/21: Lasix again today. Patient refuses to prone. Guarded prognosis. 02/01/21: Will give another 40 of lasix today. Will speak with RT about being more aggressive with weaning of oxygen. Prone if possible. 01/31/21: Increased lasix to 40 today. Prone if possible. 01/30/21: Lasix 20mg IV today. Continue Antipsychotic therapy management. Prone as tolerated if patient willing. 01/29/21: Will give lasix again today. Will change Haldol to IM since patient is refusing PO meds. 01/28/21: Will give lasix again today. Continue all other therapies. Prone if patient will and tolerate. STeroids. Guarded prognosis. 01/20/21: Gave Haldol 5 and patient has calmed down and become more appropriate, allowing us to place bipap back on. COntinue steroids and remdesivir therapy. Doubt patient will be able to prone successfully. Will try lasix today again to see if this helps. Very very guarded prognosis. 01/19/21: Continue decadron, suggest increase given patient body habitus to BID. ID consult for Remdesivir therapy and to see if she is a candidate for Actemra. Prone as tolerated during the day and sleep prone at night. Will give lasix again today. Guarded prognosis. Subjective Date of service: 02/22/21 Principal diagnosis: Covid-19 Interval history: Patient feeling much better on nasal cannula wants to go home. Objective Vital Signs - 12hr 02/22/21 02/22/21 02/22/21 03:28 08:00 09:59 Temperature 97.6 F 97.3 F L Pulse Rate 75 84 Respiratory 14 20 Rate Blood Pressure 152/76 131/53 O2 Sat by Pulse 95 96 98 Oximetry 02/22/21 10:12 Temperature Pulse Rate 83 Respiratory Rate Blood Pressure O2 Sat by Pulse Oximetry Constitutional: no acute distress, alert Eyes: non-icteric ENT: oropharynx moist Neck: supple, other (large in circumference) Effort: normal Ascultation: Bilateral: clear, diminished breath sounds Cardiovascular: other (tachy, RR; no mrg) Gastrointestinal: normoactive bowel sounds, soft, non-tender, non-distended Integumentary: normal Extremities: no cyanosis, no edema, pink and warm Neurologic: normal mental status, non-focal exam, pupils equal and round Psychiatric: mood appropriate, affect normal CBC and BMP: 02/20/21 10:54 02/20/21 10:54 ABG, PT/INR, D-dimer: ABG ABG pH 7.309 pH Units (7.350-7.450) L 02/10/21 09:30 ABG pCO2 59.4 mm Hg 02/10/21 09:30 ABG pO2 71.2 mm Hg (80.0-90.0) L 02/10/21 09:30 ABG O2 Saturation 92.4 % (95.0-99.0) L 02/10/21 09:30 PT/INR, D-dimer PT 13.6 Sec. (12.2-14.9) 02/04/21 14:52 INR 1.06 (0.87-1.13) 02/04/21 14:52 D-Dimer 1884.49 ng/mlDDU (0-234) H 01/28/21 08:46 Abnormal lab findings: Abnormal Labs 01/17/21 01/17/21 01/17/21 09:25 16:41 16:41 WBC RBC 5.23 H Hgb MCV 76 L MCH 24 L RDW Plt Count Lymph % (Auto) 9.4 L [place] % (Auto) Lymph # (Auto) 0.8 L Seg Neutrophils % 85.4 H Seg Neuts % (Manual) Lymphocytes % (Manual) Seg Neutrophils # Seg Neutrophils # Man D-Dimer ABG pH ABG pO2 ABG HCO3 ABG O2 Saturation ABG Base Excess ABG Hemoglobin Oxyhemoglobin Sodium 128 L Chloride 90.8 L Carbon Dioxide BUN Creatinine Glucose 372 H POC Glucose Calcium Ferritin AST 98 H Lactate Dehydrogenase C-Reactive Protein Total Protein Albumin 3.2 L Coronavirus (PCR) Positive A 01/17/21 01/17/21 01/17/21 17:46 17:46 17:46 WBC RBC Hgb MCV MCH RDW Plt Count Lymph % (Auto) [place] % (Auto) Lymph # (Auto) Seg Neutrophils % Seg Neuts % (Manual) Lymphocytes % (Manual) Seg Neutrophils # Seg Neutrophils # Man D-Dimer 1058.54 H ABG pH ABG pO2 ABG HCO3 ABG O2 Saturation ABG Base Excess ABG Hemoglobin Oxyhemoglobin Sodium Chloride Carbon Dioxide BUN Creatinine Glucose 369 H POC Glucose Calcium Ferritin 668.4 H AST Lactate Dehydrogenase 519 H C-Reactive Protein 19.20 H Total Protein Albumin Coronavirus (PCR) 01/18/21 01/18/21 01/19/21 09:01 17:18 05:11 WBC 14.2 H RBC Hgb MCV 74 L MCH 23 L RDW Plt Count Lymph % (Auto) [place] % (Auto) Lymph # (Auto) Seg Neutrophils % Seg Neuts % (Manual) 88.0 H Lymphocytes % (Manual) 10.0 L Seg Neutrophils # Seg Neutrophils # Man 12.5 H D-Dimer ABG pH 7.461 H ABG pO2 53.1 L ABG HCO3 ABG O2 Saturation 89.4 L ABG Base Excess ABG Hemoglobin Oxyhemoglobin 88.0 L Sodium 132 L Chloride 93.6 L Carbon Dioxide BUN 18 H Creatinine Glucose 367 H POC Glucose Calcium 7.8 L Ferritin AST Lactate Dehydrogenase C-Reactive Protein Total Protein Albumin Coronavirus (PCR) 01/19/21 01/19/21 01/19/21 05:11 11:06 14:43 WBC RBC Hgb MCV MCH RDW Plt Count Lymph % (Auto) [place] % (Auto) Lymph # (Auto) Seg Neutrophils % Seg Neuts % (Manual) Lymphocytes % (Manual) Seg Neutrophils # Seg Neutrophils # Man D-Dimer ABG pH ABG pO2 ABG HCO3 ABG O2 Saturation ABG Base Excess ABG Hemoglobin Oxyhemoglobin Sodium Chloride Carbon Dioxide BUN 18 H Creatinine Glucose 304 H 379 H POC Glucose 382 H Calcium 8.3 L Ferritin AST 92 H 96 H Lactate Dehydrogenase C-Reactive Protein Total Protein Albumin 3.0 L 3.0 L Coronavirus (PCR) 01/19/21 01/19/2121 16:18 22:18 07:31 WBC RBC Hgb MCV MCH RDW Plt Count Lymph % (Auto) [place] % (Auto) Lymph # (Auto) Seg Neutrophils % Seg Neuts % (Manual) Lymphocytes % (Manual) Seg Neutrophils # Seg Neutrophils # Man D-Dimer ABG pH ABG pO2 ABG HCO3 ABG O2 Saturation ABG Base Excess ABG Hemoglobin Oxyhemoglobin Sodium Chloride Carbon Dioxide BUN Creatinine Glucose POC Glucose 374 H 341 H 344 H Calcium Ferritin AST Lactate Dehydrogenase C-Reactive Protein Total Protein Albumin Coronavirus (PCR) 01/20/21 01/20/21 01/20/21 07:33 12:14 13:54 WBC RBC Hgb MCV MCH RDW Plt Count Lymph % (Auto) [place] % (Auto) Lymph # (Auto) Seg Neutrophils % Seg Neuts % (Manual) Lymphocytes % (Manual) Seg Neutrophils # Seg Neutrophils # Man D-Dimer ABG pH ABG pO2 ABG HCO3 ABG O2 Saturation ABG Base Excess ABG Hemoglobin Oxyhemoglobin Sodium Chloride Carbon Dioxide BUN 32 H 31 H Creatinine Glucose 343 H 396 H POC Glucose 365 H Calcium Ferritin AST 57 H 54 H Lactate Dehydrogenase C-Reactive Protein Total Protein 8.3 H Albumin 2.7 L 3.1 L Coronavirus (PCR) 01/20/21 01/20/21 01/21/21 18:28 21:25 04:45 WBC RBC Hgb MCV MCH RDW Plt Count Lymph % (Auto) [place] % (Auto) Lymph # (Auto) Seg Neutrophils % Seg Neuts % (Manual) Lymphocytes % (Manual) Seg Neutrophils # Seg Neutrophils # Man D-Dimer ABG pH ABG pO2 ABG HCO3 ABG O2 Saturation ABG Base Excess ABG Hemoglobin Oxyhemoglobin Sodium Chloride Carbon Dioxide 31 H BUN 41 H Creatinine Glucose 377 H POC Glucose 403 H 340 H Calcium Ferritin AST Lactate Dehydrogenase C-Reactive Protein Total Protein 8.3 H Albumin 3.0 L Coronavirus (PCR) 01/21/21 01/21/21 01/21/21 04:45 04:45 04:45 WBC RBC Hgb MCV MCH RDW Plt Count Lymph % (Auto) [place] % (Auto) Lymph # (Auto) Seg Neutrophils % Seg Neuts % (Manual) Lymphocytes % (Manual) Seg Neutrophils # Seg Neutrophils # Man D-Dimer > 48842 H ABG pH ABG pO2 ABG HCO3 ABG O2 Saturation ABG Base Excess ABG Hemoglobin Oxyhemoglobin Sodium Chloride Carbon Dioxide BUN Creatinine Glucose POC Glucose Calcium Ferritin 1688.0 H AST Lactate Dehydrogenase 649 H C-Reactive Protein 17.00 H Total Protein Albumin Coronavirus (PCR) 01/21/21 01/21/21 01/21/21 09:45 11:29 12:09 WBC RBC Hgb MCV MCH RDW Plt Count Lymph % (Auto) [place] % (Auto) Lymph # (Auto) Seg Neutrophils % Seg Neuts % (Manual) Lymphocytes % (Manual) Seg Neutrophils # Seg Neutrophils # Man D-Dimer ABG pH ABG pO2 ABG HCO3 ABG O2 Saturation ABG Base Excess ABG Hemoglobin Oxyhemoglobin Sodium 151 H Chloride Carbon Dioxide BUN 40 H Creatinine Glucose 412 H POC Glucose 401 H 372 H Calcium Ferritin AST Lactate Dehydrogenase C-Reactive Protein Total Protein Albumin 3.4 L Coronavirus (PCR) 01/21/21 01/21/21 01/22/21 18:26 21:09 02:00 WBC RBC Hgb MCV MCH RDW Plt Count Lymph % (Auto) [place] % (Auto) Lymph # (Auto) Seg Neutrophils % Seg Neuts % (Manual) Lymphocytes % (Manual) Seg Neutrophils # Seg Neutrophils # Man D-Dimer ABG pH ABG pO2 ABG HCO3 ABG O2 Saturation ABG Base Excess ABG Hemoglobin Oxyhemoglobin Sodium Chloride Carbon Dioxide BUN Creatinine Glucose POC Glucose 376 H 322 H 231 H Calcium Ferritin AST Lactate Dehydrogenase C-Reactive Protein Total Protein Albumin Coronavirus (PCR) 01/22/21 01/22/21 01/22/21 05:24 08:25 08:25 WBC RBC 5.44 H Hgb MCV 75 L MCH 23 L RDW 15.5 H Plt Count Lymph % (Auto) [place] % (Auto) Lymph # (Auto) Seg Neutrophils % Seg Neuts % (Manual) Lymphocytes % (Manual) Seg Neutrophils # Seg Neutrophils # Man D-Dimer ABG pH ABG pO2 ABG HCO3 ABG O2 Saturation ABG Base Excess ABG Hemoglobin Oxyhemoglobin Sodium 155 H Chloride 112.4 H Carbon Dioxide BUN 33 H Creatinine Glucose 274 H POC Glucose 275 H Calcium Ferritin AST Lactate Dehydrogenase C-Reactive Protein Total Protein Albumin Coronavirus (PCR) 01/22/21 01/22/21 01/22/21 11:53 16:03 21:41 WBC RBC Hgb MCV MCH RDW Plt Count Lymph % (Auto) [place] % (Auto) Lymph # (Auto) Seg Neutrophils % Seg Neuts % (Manual) Lymphocytes % (Manual) Seg Neutrophils # Seg Neutrophils # Man D-Dimer ABG pH ABG pO2 ABG HCO3 ABG O2 Saturation ABG Base Excess ABG Hemoglobin Oxyhemoglobin Sodium Chloride Carbon Dioxide BUN Creatinine Glucose POC Glucose 265 H 293 H 279 H Calcium Ferritin AST Lactate Dehydrogenase C-Reactive Protein Total Protein Albumin Coronavirus (PCR) 01/23/21 01/23/21 01/23/21 02:03 05:46 05:59 WBC RBC Hgb MCV MCH RDW Plt Count Lymph % (Auto) [place] % (Auto) Lymph # (Auto) Seg Neutrophils % Seg Neuts % (Manual) Lymphocytes % (Manual) Seg Neutrophils # Seg Neutrophils # Man D-Dimer ABG pH ABG pO2 ABG HCO3 ABG O2 Saturation ABG Base Excess ABG Hemoglobin Oxyhemoglobin Sodium Chloride Carbon Dioxide BUN Creatinine Glucose POC Glucose 268 H 303 H Calcium Ferritin 1116.0 H AST Lactate Dehydrogenase C-Reactive Protein Total Protein Albumin Coronavirus (PCR) 01/23/21 01/23/21 01/23/21 05:59 07:42 09:11 WBC RBC Hgb MCV MCH RDW Plt Count Lymph % (Auto) [place] % (Auto) Lymph # (Auto) Seg Neutrophils % Seg Neuts % (Manual) Lymphocytes % (Manual) Seg Neutrophils # Seg Neutrophils # Man D-Dimer ABG pH ABG pO2 ABG HCO3 ABG O2 Saturation ABG Base Excess ABG Hemoglobin Oxyhemoglobin Sodium Chloride Carbon Dioxide BUN Creatinine Glucose POC Glucose 291 H 285 H Calcium Ferritin AST Lactate Dehydrogenase 680 H C-Reactive Protein 5.80 H Total Protein Albumin Coronavirus (PCR) 01/23/21 01/23/21 01/23/21 14:06 17:05 17:59 WBC RBC Hgb MCV MCH RDW Plt Count Lymph % (Auto) [place] % (Auto) Lymph # (Auto) Seg Neutrophils % Seg Neuts % (Manual) Lymphocytes % (Manual) Seg Neutrophils # Seg Neutrophils # Man D-Dimer ABG pH ABG pO2 ABG HCO3 ABG O2 Saturation ABG Base Excess ABG Hemoglobin Oxyhemoglobin Sodium Chloride Carbon Dioxide BUN Creatinine Glucose POC Glucose 228 H 300 H 278 H Calcium Ferritin AST Lactate Dehydrogenase C-Reactive Protein Total Protein Albumin Coronavirus (PCR) 01/23/21 01/24/21 01/24/21 21:43 02:14 05:15 WBC RBC Hgb MCV MCH RDW Plt Count Lymph % (Auto) [place] % (Auto) Lymph # (Auto) Seg Neutrophils % Seg Neuts % (Manual) Lymphocytes % (Manual) Seg Neutrophils # Seg Neutrophils # Man D-Dimer ABG pH ABG pO2 ABG HCO3 ABG O2 Saturation ABG Base Excess ABG Hemoglobin Oxyhemoglobin Sodium Chloride Carbon Dioxide BUN Creatinine Glucose POC Glucose 223 H 427 H 392 H Calcium Ferritin AST Lactate Dehydrogenase C-Reactive Protein Total Protein Albumin Coronavirus (PCR) 01/24/21 01/24/21 01/24/21 07:03 07:03 09:10 WBC RBC 5.49 H Hgb MCV 75 L MCH 23 L RDW Plt Count Lymph % (Auto) 7.0 L [place] % (Auto) Lymph # (Auto) 0.5 L Seg Neutrophils % 86.1 H Seg Neuts % (Manual) Lymphocytes % (Manual) Seg Neutrophils # Seg Neutrophils # Man D-Dimer ABG pH ABG pO2 ABG HCO3 ABG O2 Saturation ABG Base Excess ABG Hemoglobin Oxyhemoglobin Sodium 149 H Chloride 111.4 H Carbon Dioxide BUN 24 H Creatinine Glucose 339 H POC Glucose 284 H Calcium Ferritin AST Lactate Dehydrogenase C-Reactive Protein Total Protein Albumin Coronavirus (PCR) 01/24/21 01/24/21 01/24/21 13:47 18:30 21:58 WBC RBC Hgb MCV MCH RDW Plt Count Lymph % (Auto) [place] % (Auto) Lymph # (Auto) Seg Neutrophils % Seg Neuts % (Manual) Lymphocytes % (Manual) Seg Neutrophils # Seg Neutrophils # Man D-Dimer ABG pH ABG pO2 ABG HCO3 ABG O2 Saturation ABG Base Excess ABG Hemoglobin Oxyhemoglobin Sodium Chloride Carbon Dioxide BUN Creatinine Glucose POC Glucose 317 H 180 H 262 H Calcium Ferritin AST Lactate Dehydrogenase C-Reactive Protein Total Protein Albumin Coronavirus (PCR) 01/25/21 01/25/21 01/25/21 01:22 05:35 08:36 WBC RBC Hgb MCV MCH RDW Plt Count Lymph % (Auto) [place] % (Auto) Lymph # (Auto) Seg Neutrophils % Seg Neuts % (Manual) Lymphocytes % (Manual) Seg Neutrophils # Seg Neutrophils # Man D-Dimer ABG pH ABG pO2 ABG HCO3 ABG O2 Saturation ABG Base Excess ABG Hemoglobin Oxyhemoglobin Sodium Chloride Carbon Dioxide BUN Creatinine Glucose POC Glucose 280 H 243 H 216 H Calcium Ferritin AST Lactate Dehydrogenase C-Reactive Protein Total Protein Albumin Coronavirus (PCR) 01/25/21 01/25/21 01/25/21 15:14 15:14 15:14 WBC RBC Hgb MCV MCH RDW Plt Count Lymph % (Auto) [place] % (Auto) Lymph # (Auto) Seg Neutrophils % Seg Neuts % (Manual) Lymphocytes % (Manual) Seg Neutrophils # Seg Neutrophils # Man D-Dimer 6312.54 H ABG pH ABG pO2 ABG HCO3 ABG O2 Saturation ABG Base Excess ABG Hemoglobin Oxyhemoglobin Sodium 146 H Chloride 108.1 H Carbon Dioxide BUN 19 H Creatinine Glucose 287 H POC Glucose Calcium 8.3 L Ferritin 869.5 H AST Lactate Dehydrogenase 685 H C-Reactive Protein Total Protein Albumin Coronavirus (PCR) 01/25/21 01/25/21 01/26/21 16:06 21:18 01:47 WBC RBC Hgb MCV MCH RDW Plt Count Lymph % (Auto) [place] % (Auto) Lymph # (Auto) Seg Neutrophils % Seg Neuts % (Manual) Lymphocytes % (Manual) Seg Neutrophils # Seg Neutrophils # Man D-Dimer ABG pH ABG pO2 ABG HCO3 ABG O2 Saturation ABG Base Excess ABG Hemoglobin Oxyhemoglobin Sodium Chloride Carbon Dioxide BUN Creatinine Glucose POC Glucose 267 H 197 H 255 H Calcium Ferritin AST Lactate Dehydrogenase C-Reactive Protein Total Protein Albumin Coronavirus (PCR) 01/26/21 01/26/21 01/26/21 05:23 05:23 05:23 WBC RBC Hgb MCV MCH RDW Plt Count Lymph % (Auto) [place] % (Auto) Lymph # (Auto) Seg Neutrophils % Seg Neuts % (Manual) Lymphocytes % (Manual) Seg Neutrophils # Seg Neutrophils # Man D-Dimer 5809.58 H ABG pH ABG pO2 ABG HCO3 ABG O2 Saturation ABG Base Excess ABG Hemoglobin Oxyhemoglobin Sodium 149 H Chloride 109.3 H Carbon Dioxide BUN 24 H Creatinine Glucose 362 H POC Glucose Calcium Ferritin 877.1 H AST Lactate Dehydrogenase 655 H C-Reactive Protein Total Protein Albumin Coronavirus (PCR) 01/26/21 01/26/21 01/26/21 05:23 06:06 09:28 WBC RBC 5.49 H Hgb MCV 77 L MCH 23 L RDW Plt Count Lymph % (Auto) [place] % (Auto) Lymph # (Auto) 0.8 L Seg Neutrophils % 78.9 H Seg Neuts % (Manual) Lymphocytes % (Manual) Seg Neutrophils # Seg Neutrophils # Man D-Dimer ABG pH ABG pO2 ABG HCO3 ABG O2 Saturation ABG Base Excess ABG Hemoglobin Oxyhemoglobin Sodium Chloride Carbon Dioxide BUN Creatinine Glucose POC Glucose 387 H 308 H Calcium Ferritin AST Lactate Dehydrogenase C-Reactive Protein Total Protein Albumin Coronavirus (PCR) 01/26/21 01/26/21 01/27/21 15:56 21:28 02:51 WBC RBC Hgb MCV MCH RDW Plt Count Lymph % (Auto) [place] % (Auto) Lymph # (Auto) Seg Neutrophils % Seg Neuts % (Manual) Lymphocytes % (Manual) Seg Neutrophils # Seg Neutrophils # Man D-Dimer ABG pH ABG pO2 ABG HCO3 ABG O2 Saturation ABG Base Excess ABG Hemoglobin Oxyhemoglobin Sodium Chloride Carbon Dioxide BUN Creatinine Glucose POC Glucose 172 H 316 H 267 H Calcium Ferritin AST Lactate Dehydrogenase C-Reactive Protein Total Protein Albumin Coronavirus (PCR) 01/27/21 01/27/21 01/27/21 04:22 04:22 04:22 WBC RBC Hgb MCV MCH RDW Plt Count Lymph % (Auto) [place] % (Auto) Lymph # (Auto) Seg Neutrophils % Seg Neuts % (Manual) Lymphocytes % (Manual) Seg Neutrophils # Seg Neutrophils # Man D-Dimer 4046.06 H ABG pH ABG pO2 ABG HCO3 ABG O2 Saturation ABG Base Excess ABG Hemoglobin Oxyhemoglobin Sodium Chloride 107.7 H Carbon Dioxide BUN 30 H Creatinine Glucose 281 H POC Glucose Calcium Ferritin 812.2 H AST Lactate Dehydrogenase 570 H C-Reactive Protein Total Protein Albumin Coronavirus (PCR) 01/27/21 01/27/21 01/27/21 04:22 05:55 12:00 WBC RBC 5.15 H Hgb MCV 76 L MCH 23 L RDW 15.5 H Plt Count Lymph % (Auto) 12.7 L [place] % (Auto) Lymph # (Auto) 0.9 L Seg Neutrophils % 81.3 H Seg Neuts % (Manual) Lymphocytes % (Manual) Seg Neutrophils # Seg Neutrophils # Man D-Dimer ABG pH ABG pO2 ABG HCO3 ABG O2 Saturation ABG Base Excess ABG Hemoglobin Oxyhemoglobin Sodium Chloride Carbon Dioxide BUN Creatinine Glucose POC Glucose 275 H 121 H Calcium Ferritin AST Lactate Dehydrogenase C-Reactive Protein Total Protein Albumin Coronavirus (PCR) 01/27/21 01/27/21 01/28/21 17:32 21:23 02:08 WBC RBC Hgb MCV MCH RDW Plt Count Lymph % (Auto) [place] % (Auto) Lymph # (Auto) Seg Neutrophils % Seg Neuts % (Manual) Lymphocytes % (Manual) Seg Neutrophils # Seg Neutrophils # Man D-Dimer ABG pH ABG pO2 ABG HCO3 ABG O2 Saturation ABG Base Excess ABG Hemoglobin Oxyhemoglobin Sodium Chloride Carbon Dioxide BUN Creatinine Glucose POC Glucose 195 H 179 H 210 H Calcium Ferritin AST Lactate Dehydrogenase C-Reactive Protein Total Protein Albumin Coronavirus (PCR) 01/28/21 01/28/21 01/28/21 05:09 08:44 08:46 WBC RBC Hgb MCV MCH RDW Plt Count Lymph % (Auto) [place] % (Auto) Lymph # (Auto) Seg Neutrophils % Seg Neuts % (Manual) Lymphocytes % (Manual) Seg Neutrophils # Seg Neutrophils # Man D-Dimer 1884.49 H ABG pH ABG pO2 ABG HCO3 ABG O2 Saturation ABG Base Excess ABG Hemoglobin Oxyhemoglobin Sodium Chloride Carbon Dioxide BUN Creatinine Glucose POC Glucose 202 H 191 H Calcium Ferritin AST Lactate Dehydrogenase C-Reactive Protein Total Protein Albumin Coronavirus (PCR) 01/28/21 01/28/21 01/28/21 08:46 08:46 12:18 WBC RBC Hgb MCV MCH RDW Plt Count Lymph % (Auto) [place] % (Auto) Lymph # (Auto) Seg Neutrophils % Seg Neuts % (Manual) Lymphocytes % (Manual) Seg Neutrophils # Seg Neutrophils # Man D-Dimer ABG pH ABG pO2 ABG HCO3 ABG O2 Saturation ABG Base Excess ABG Hemoglobin Oxyhemoglobin Sodium Chloride Carbon Dioxide BUN Creatinine Glucose POC Glucose 221 H Calcium Ferritin 797.7 H AST Lactate Dehydrogenase 556 H C-Reactive Protein Total Protein Albumin Coronavirus (PCR) 01/28/21 01/28/21 01/29/21 18:21 21:45 01:48 WBC RBC Hgb MCV MCH RDW Plt Count Lymph % (Auto) [place] % (Auto) Lymph # (Auto) Seg Neutrophils % Seg Neuts % (Manual) Lymphocytes % (Manual) Seg Neutrophils # Seg Neutrophils # Man D-Dimer ABG pH ABG pO2 ABG HCO3 ABG O2 Saturation ABG Base Excess ABG Hemoglobin Oxyhemoglobin Sodium Chloride Carbon Dioxide BUN Creatinine Glucose POC Glucose 214 H 148 H 248 H Calcium Ferritin AST Lactate Dehydrogenase C-Reactive Protein Total Protein Albumin Coronavirus (PCR) 01/29/21 01/29/21 01/29/21 05:17 10:17 11:39 WBC RBC Hgb MCV MCH RDW Plt Count Lymph % (Auto) [place] % (Auto) Lymph # (Auto) Seg Neutrophils % Seg Neuts % (Manual) Lymphocytes % (Manual) Seg Neutrophils # Seg Neutrophils # Man D-Dimer ABG pH ABG pO2 ABG HCO3 ABG O2 Saturation ABG Base Excess ABG Hemoglobin Oxyhemoglobin Sodium Chloride Carbon Dioxide BUN Creatinine Glucose POC Glucose 256 H 193 H 177 H Calcium Ferritin AST Lactate Dehydrogenase C-Reactive Protein Total Protein Albumin Coronavirus (PCR) 01/29/21 01/29/21 01/30/21 18:06 20:24 06:07 WBC RBC Hgb MCV MCH RDW Plt Count Lymph % (Auto) [place] % (Auto) Lymph # (Auto) Seg Neutrophils % Seg Neuts % (Manual) Lymphocytes % (Manual) Seg Neutrophils # Seg Neutrophils # Man D-Dimer ABG pH ABG pO2 ABG HCO3 ABG O2 Saturation ABG Base Excess ABG Hemoglobin Oxyhemoglobin Sodium Chloride Carbon Dioxide BUN Creatinine Glucose POC Glucose 107 H 114 H 114 H Calcium Ferritin AST Lactate Dehydrogenase C-Reactive Protein Total Protein Albumin Coronavirus (PCR) 01/30/21 01/30/21 01/30/21 12:08 16:11 21:19 WBC RBC Hgb MCV MCH RDW Plt Count Lymph % (Auto) [place] % (Auto) Lymph # (Auto) Seg Neutrophils % Seg Neuts % (Manual) Lymphocytes % (Manual) Seg Neutrophils # Seg Neutrophils # Man D-Dimer ABG pH ABG pO2 ABG HCO3 ABG O2 Saturation ABG Base Excess ABG Hemoglobin Oxyhemoglobin Sodium Chloride Carbon Dioxide BUN Creatinine Glucose POC Glucose 178 H 142 H 244 H Calcium Ferritin AST Lactate Dehydrogenase C-Reactive Protein Total Protein Albumin Coronavirus (PCR) 01/31/21 01/31/21 01/31/21 05:30 06:42 07:50 WBC RBC Hgb MCV MCH RDW Plt Count Lymph % (Auto) [place] % (Auto) Lymph # (Auto) Seg Neutrophils % Seg Neuts % (Manual) Lymphocytes % (Manual) Seg Neutrophils # Seg Neutrophils # Man D-Dimer ABG pH ABG pO2 ABG HCO3 ABG O2 Saturation ABG Base Excess ABG Hemoglobin Oxyhemoglobin Sodium Chloride Carbon Dioxide BUN 20 H Creatinine Glucose 160 H POC Glucose 164 H 152 H Calcium 8.0 L Ferritin AST Lactate Dehydrogenase C-Reactive Protein Total Protein Albumin Coronavirus (PCR) 01/31/21 01/31/21 01/31/21 11:40 16:37 21:01 WBC RBC Hgb MCV MCH RDW Plt Count Lymph % (Auto) [place] % (Auto) Lymph # (Auto) Seg Neutrophils % Seg Neuts % (Manual) Lymphocytes % (Manual) Seg Neutrophils # Seg Neutrophils # Man D-Dimer ABG pH ABG pO2 ABG HCO3 ABG O2 Saturation ABG Base Excess ABG Hemoglobin Oxyhemoglobin Sodium Chloride Carbon Dioxide BUN Creatinine Glucose POC Glucose 129 H 141 H 125 H Calcium Ferritin AST Lactate Dehydrogenase C-Reactive Protein Total Protein Albumin Coronavirus (PCR) 02/01/21 02/01/21 02/01/21 06:26 11:15 16:11 WBC RBC Hgb MCV MCH RDW Plt Count Lymph % (Auto) [place] % (Auto) Lymph # (Auto) Seg Neutrophils % Seg Neuts % (Manual) Lymphocytes % (Manual) Seg Neutrophils # Seg Neutrophils # Man D-Dimer ABG pH ABG pO2 ABG HCO3 ABG O2 Saturation ABG Base Excess ABG Hemoglobin Oxyhemoglobin Sodium Chloride Carbon Dioxide BUN Creatinine Glucose POC Glucose 136 H 260 H 240 H Calcium Ferritin AST Lactate Dehydrogenase C-Reactive Protein Total Protein Albumin Coronavirus (PCR) 02/01/21 02/02/21 02/02/21 22:32 07:15 07:56 WBC 3.1 L RBC Hgb MCV 75 L MCH 23 L RDW Plt Count Lymph % (Auto) 44.9 H [place] % (Auto) 9.2 H Lymph # (Auto) Seg Neutrophils % Seg Neuts % (Manual) Lymphocytes % (Manual) Seg Neutrophils # 1.3 L Seg Neutrophils # Man D-Dimer ABG pH ABG pO2 ABG HCO3 ABG O2 Saturation ABG Base Excess ABG Hemoglobin Oxyhemoglobin Sodium Chloride Carbon Dioxide BUN Creatinine Glucose POC Glucose 298 H 164 H Calcium Ferritin AST Lactate Dehydrogenase C-Reactive Protein Total Protein Albumin Coronavirus (PCR) 02/02/21 02/02/21 02/02/21 07:56 11:35 16:07 WBC RBC Hgb MCV MCH RDW Plt Count Lymph % (Auto) [place] % (Auto) Lymph # (Auto) Seg Neutrophils % Seg Neuts % (Manual) Lymphocytes % (Manual) Seg Neutrophils # Seg Neutrophils # Man D-Dimer ABG pH ABG pO2 ABG HCO3 ABG O2 Saturation ABG Base Excess ABG Hemoglobin Oxyhemoglobin Sodium Chloride Carbon Dioxide 31 H BUN Creatinine 0.4 L Glucose 159 H POC Glucose 297 H 252 H Calcium 8.2 L Ferritin AST Lactate Dehydrogenase C-Reactive Protein Total Protein Albumin Coronavirus (PCR) 02/02/21 02/03/21 02/03/21 22:33 17:04 22:17 WBC RBC Hgb MCV MCH RDW Plt Count Lymph % (Auto) [place] % (Auto) Lymph # (Auto) Seg Neutrophils % Seg Neuts % (Manual) Lymphocytes % (Manual) Seg Neutrophils # Seg Neutrophils # Man D-Dimer ABG pH ABG pO2 ABG HCO3 ABG O2 Saturation ABG Base Excess ABG Hemoglobin Oxyhemoglobin Sodium Chloride Carbon Dioxide BUN Creatinine Glucose POC Glucose 257 H 247 H 278 H Calcium Ferritin AST Lactate Dehydrogenase C-Reactive Protein Total Protein Albumin Coronavirus (PCR) 02/04/21 02/04/21 02/04/21 05:41 07:55 11:56 WBC RBC Hgb MCV MCH RDW Plt Count Lymph % (Auto) [place] % (Auto) Lymph # (Auto) Seg Neutrophils % Seg Neuts % (Manual) Lymphocytes % (Manual) Seg Neutrophils # Seg Neutrophils # Man D-Dimer ABG pH ABG pO2 ABG HCO3 ABG O2 Saturation ABG Base Excess ABG Hemoglobin Oxyhemoglobin Sodium Chloride Carbon Dioxide 31 H BUN 19 H Creatinine 0.5 L Glucose 184 H POC Glucose 182 H 227 H Calcium Ferritin AST Lactate Dehydrogenase C-Reactive Protein Total Protein Albumin Coronavirus (PCR) 02/04/21 02/04/21 02/04/21 12:45 14:52 16:45 WBC 4.0 L RBC Hgb MCV 77 L MCH 24 L RDW 15.5 H Plt Count Lymph % (Auto) [place] % (Auto) Lymph # (Auto) Seg Neutrophils % Seg Neuts % (Manual) Lymphocytes % (Manual) Seg Neutrophils # Seg Neutrophils # Man D-Dimer ABG pH ABG pO2 65.6 L ABG HCO3 30.8 H ABG O2 Saturation 94.0 L ABG Base Excess 5.5 H ABG Hemoglobin 10.3 L Oxyhemoglobin 92.3 L Sodium Chloride Carbon Dioxide BUN Creatinine Glucose POC Glucose 194 H Calcium Ferritin AST Lactate Dehydrogenase C-Reactive Protein Total Protein Albumin Coronavirus (PCR) 02/04/21 02/05/21 02/05/21 22:00 06:55 07:49 WBC RBC Hgb 10.0 L MCV MCH RDW Plt Count Lymph % (Auto) [place] % (Auto) Lymph # (Auto) Seg Neutrophils % Seg Neuts % (Manual) Lymphocytes % (Manual) Seg Neutrophils # Seg Neutrophils # Man D-Dimer ABG pH ABG pO2 ABG HCO3 ABG O2 Saturation ABG Base Excess ABG Hemoglobin Oxyhemoglobin Sodium Chloride Carbon Dioxide BUN Creatinine Glucose POC Glucose 281 H 204 H Calcium Ferritin AST Lactate Dehydrogenase C-Reactive Protein Total Protein Albumin Coronavirus (PCR) 02/05/21 02/05/21 02/05/21 11:23 16:13 16:22 WBC RBC Hgb 10.0 L MCV MCH RDW Plt Count Lymph % (Auto) [place] % (Auto) Lymph # (Auto) Seg Neutrophils % Seg Neuts % (Manual) Lymphocytes % (Manual) Seg Neutrophils # Seg Neutrophils # Man D-Dimer ABG pH ABG pO2 ABG HCO3 ABG O2 Saturation ABG Base Excess ABG Hemoglobin Oxyhemoglobin Sodium Chloride Carbon Dioxide BUN Creatinine Glucose POC Glucose 264 H 202 H Calcium Ferritin AST Lactate Dehydrogenase C-Reactive Protein Total Protein Albumin Coronavirus (PCR) 02/05/21 02/06/21 02/06/21 21:14 04:43 04:43 WBC 4.0 L RBC Hgb 10.0 L MCV 76 L MCH 23 L RDW 15.7 H Plt Count Lymph % (Auto) [place] % (Auto) Lymph # (Auto) Seg Neutrophils % Seg Neuts % (Manual) Lymphocytes % (Manual) Seg Neutrophils # Seg Neutrophils # Man D-Dimer ABG pH ABG pO2 ABG HCO3 ABG O2 Saturation ABG Base Excess ABG Hemoglobin Oxyhemoglobin Sodium Chloride Carbon Dioxide 32 H BUN Creatinine 0.4 L Glucose 163 H POC Glucose 180 H Calcium 8.3 L Ferritin AST Lactate Dehydrogenase C-Reactive Protein Total Protein Albumin Coronavirus (PCR) 02/06/21 02/06/21 02/06/21 08:01 11:44 16:11 WBC RBC Hgb MCV MCH RDW Plt Count Lymph % (Auto) [place] % (Auto) Lymph # (Auto) Seg Neutrophils % Seg Neuts % (Manual) Lymphocytes % (Manual) Seg Neutrophils # Seg Neutrophils # Man D-Dimer ABG pH ABG pO2 ABG HCO3 ABG O2 Saturation ABG Base Excess ABG Hemoglobin Oxyhemoglobin Sodium Chloride Carbon Dioxide BUN Creatinine Glucose POC Glucose 155 H 215 H 247 H Calcium Ferritin AST Lactate Dehydrogenase C-Reactive Protein Total Protein Albumin Coronavirus (PCR) 02/06/21 02/07/21 02/07/21 23:40 08:01 11:54 WBC RBC Hgb MCV MCH RDW Plt Count Lymph % (Auto) [place] % (Auto) Lymph # (Auto) Seg Neutrophils % Seg Neuts % (Manual) Lymphocytes % (Manual) Seg Neutrophils # Seg Neutrophils # Man D-Dimer ABG pH ABG pO2 ABG HCO3 ABG O2 Saturation ABG Base Excess ABG Hemoglobin Oxyhemoglobin Sodium Chloride Carbon Dioxide BUN Creatinine Glucose POC Glucose 267 H 233 H 227 H Calcium Ferritin AST Lactate Dehydrogenase C-Reactive Protein Total Protein Albumin Coronavirus (PCR) 02/07/21 02/07/21 02/07/21 15:48 20:58 20:58 WBC RBC Hgb MCV MCH RDW Plt Count Lymph % (Auto) [place] % (Auto) Lymph # (Auto) Seg Neutrophils % Seg Neuts % (Manual) Lymphocytes % (Manual) Seg Neutrophils # Seg Neutrophils # Man D-Dimer ABG pH ABG pO2 ABG HCO3 ABG O2 Saturation ABG Base Excess ABG Hemoglobin Oxyhemoglobin Sodium Chloride Carbon Dioxide 32 H BUN Creatinine 0.5 L 0.5 L Glucose 236 H POC Glucose 257 H Calcium 8.3 L Ferritin AST Lactate Dehydrogenase C-Reactive Protein Total Protein Albumin Coronavirus (PCR) 02/07/21 02/08/21 02/08/21 22:10 04:46 04:46 WBC 4.2 L RBC Hgb 9.7 L MCV 78 L MCH 24 L RDW 17.9 H Plt Count 110 L Lymph % (Auto) [place] % (Auto) Lymph # (Auto) Seg Neutrophils % Seg Neuts % (Manual) Lymphocytes % (Manual) Seg Neutrophils # Seg Neutrophils # Man D-Dimer ABG pH ABG pO2 ABG HCO3 ABG O2 Saturation ABG Base Excess ABG Hemoglobin Oxyhemoglobin Sodium Chloride Carbon Dioxide BUN Creatinine 0.4 L Glucose 220 H POC Glucose 241 H Calcium 8.0 L Ferritin AST Lactate Dehydrogenase C-Reactive Protein Total Protein Albumin Coronavirus (PCR) 02/08/21 02/08/21 02/08/21 08:05 11:36 15:44 WBC RBC Hgb MCV MCH RDW Plt Count Lymph % (Auto) [place] % (Auto) Lymph # (Auto) Seg Neutrophils % Seg Neuts % (Manual) Lymphocytes % (Manual) Seg Neutrophils # Seg Neutrophils # Man D-Dimer ABG pH ABG pO2 ABG HCO3 ABG O2 Saturation ABG Base Excess ABG Hemoglobin Oxyhemoglobin Sodium Chloride Carbon Dioxide BUN Creatinine Glucose POC Glucose 208 H 200 H 149 H Calcium Ferritin AST Lactate Dehydrogenase C-Reactive Protein Total Protein Albumin Coronavirus (PCR) 02/08/21 02/09/21 02/09/21 21:35 04:24 07:39 WBC RBC Hgb MCV MCH RDW Plt Count Lymph % (Auto) [place] % (Auto) Lymph # (Auto) Seg Neutrophils % Seg Neuts % (Manual) Lymphocytes % (Manual) Seg Neutrophils # Seg Neutrophils # Man D-Dimer ABG pH ABG pO2 ABG HCO3 ABG O2 Saturation ABG Base Excess ABG Hemoglobin Oxyhemoglobin Sodium Chloride Carbon Dioxide BUN Creatinine 0.4 L Glucose 205 H POC Glucose 249 H 205 H Calcium 8.1 L Ferritin AST Lactate Dehydrogenase C-Reactive Protein Total Protein Albumin Coronavirus (PCR) 02/09/21 02/09/21 02/09/21 11:53 16:52 21:26 WBC RBC Hgb MCV MCH RDW Plt Count Lymph % (Auto) [place] % (Auto) Lymph # (Auto) Seg Neutrophils % Seg Neuts % (Manual) Lymphocytes % (Manual) Seg Neutrophils # Seg Neutrophils # Man D-Dimer ABG pH ABG pO2 ABG HCO3 ABG O2 Saturation ABG Base Excess ABG Hemoglobin Oxyhemoglobin Sodium Chloride Carbon Dioxide BUN Creatinine Glucose POC Glucose 303 H 164 H 257 H Calcium Ferritin AST Lactate Dehydrogenase C-Reactive Protein Total Protein Albumin Coronavirus (PCR) 02/10/21 02/10/21 02/10/21 09:30 09:38 11:45 WBC RBC Hgb MCV MCH RDW Plt Count Lymph % (Auto) [place] % (Auto) Lymph # (Auto) Seg Neutrophils % Seg Neuts % (Manual) Lymphocytes % (Manual) Seg Neutrophils # Seg Neutrophils # Man D-Dimer ABG pH 7.309 L ABG pO2 71.2 L ABG HCO3 29.1 H ABG O2 Saturation 92.4 L ABG Base Excess ABG Hemoglobin 11.2 L Oxyhemoglobin 90.2 L Sodium Chloride Carbon Dioxide BUN Creatinine Glucose POC Glucose 240 H 257 H Calcium Ferritin AST Lactate Dehydrogenase C-Reactive Protein Total Protein Albumin Coronavirus (PCR) 02/10/21 02/10/21 02/11/21 17:12 21:26 04:50 WBC RBC Hgb MCV 78 L MCH 24 L RDW 20.3 H Plt Count 133 L Lymph % (Auto) [place] % (Auto) Lymph # (Auto) Seg Neutrophils % Seg Neuts % (Manual) Lymphocytes % (Manual) Seg Neutrophils # Seg Neutrophils # Man D-Dimer ABG pH ABG pO2 ABG HCO3 ABG O2 Saturation ABG Base Excess ABG Hemoglobin Oxyhemoglobin Sodium Chloride Carbon Dioxide BUN Creatinine Glucose POC Glucose 178 H 362 H Calcium Ferritin AST Lactate Dehydrogenase C-Reactive Protein Total Protein Albumin Coronavirus (PCR) 02/11/21 02/11/21 02/11/21 08:02 11:52 17:14 WBC RBC Hgb MCV MCH RDW Plt Count Lymph % (Auto) [place] % (Auto) Lymph # (Auto) Seg Neutrophils % Seg Neuts % (Manual) Lymphocytes % (Manual) Seg Neutrophils # Seg Neutrophils # Man D-Dimer ABG pH ABG pO2 ABG HCO3 ABG O2 Saturation ABG Base Excess ABG Hemoglobin Oxyhemoglobin Sodium Chloride Carbon Dioxide BUN Creatinine Glucose POC Glucose 263 H 433 H 212 H Calcium Ferritin AST Lactate Dehydrogenase C-Reactive Protein Total Protein Albumin Coronavirus (PCR) 02/11/21 02/12/21 02/12/21 21:39 08:24 11:21 WBC RBC Hgb MCV MCH RDW Plt Count Lymph % (Auto) [place] % (Auto) Lymph # (Auto) Seg Neutrophils % Seg Neuts % (Manual) Lymphocytes % (Manual) Seg Neutrophils # Seg Neutrophils # Man D-Dimer ABG pH ABG pO2 ABG HCO3 ABG O2 Saturation ABG Base Excess ABG Hemoglobin Oxyhemoglobin Sodium Chloride Carbon Dioxide BUN Creatinine Glucose POC Glucose 248 H 295 H 403 H Calcium Ferritin AST Lactate Dehydrogenase C-Reactive Protein Total Protein Albumin Coronavirus (PCR) 02/12/21 02/13/21 02/13/21 16:29 07:32 12:19 WBC RBC Hgb MCV MCH RDW Plt Count Lymph % (Auto) [place] % (Auto) Lymph # (Auto) Seg Neutrophils % Seg Neuts % (Manual) Lymphocytes % (Manual) Seg Neutrophils # Seg Neutrophils # Man D-Dimer ABG pH ABG pO2 ABG HCO3 ABG O2 Saturation ABG Base Excess ABG Hemoglobin Oxyhemoglobin Sodium Chloride Carbon Dioxide BUN Creatinine Glucose POC Glucose 238 H 299 H 357 H Calcium Ferritin AST Lactate Dehydrogenase C-Reactive Protein Total Protein Albumin Coronavirus (PCR) 02/13/21 02/13/21 02/14/21 16:28 21:45 07:44 WBC RBC Hgb MCV MCH RDW Plt Count Lymph % (Auto) [place] % (Auto) Lymph # (Auto) Seg Neutrophils % Seg Neuts % (Manual) Lymphocytes % (Manual) Seg Neutrophils # Seg Neutrophils # Man D-Dimer ABG pH ABG pO2 ABG HCO3 ABG O2 Saturation ABG Base Excess ABG Hemoglobin Oxyhemoglobin Sodium Chloride Carbon Dioxide BUN Creatinine Glucose POC Glucose 270 H 346 H 234 H Calcium Ferritin AST Lactate Dehydrogenase C-Reactive Protein Total Protein Albumin Coronavirus (PCR) 02/14/21 02/14/21 02/14/21 11:12 16:40 21:27 WBC RBC Hgb MCV MCH RDW Plt Count Lymph % (Auto) [place] % (Auto) Lymph # (Auto) Seg Neutrophils % Seg Neuts % (Manual) Lymphocytes % (Manual) Seg Neutrophils # Seg Neutrophils # Man D-Dimer ABG pH ABG pO2 ABG HCO3 ABG O2 Saturation ABG Base Excess ABG Hemoglobin Oxyhemoglobin Sodium Chloride Carbon Dioxide BUN Creatinine Glucose POC Glucose 294 H 116 H 159 H Calcium Ferritin AST Lactate Dehydrogenase C-Reactive Protein Total Protein Albumin Coronavirus (PCR) 02/15/21 02/15/21 02/15/21 07:58 11:41 16:41 WBC RBC Hgb MCV MCH RDW Plt Count Lymph % (Auto) [place] % (Auto) Lymph # (Auto) Seg Neutrophils % Seg Neuts % (Manual) Lymphocytes % (Manual) Seg Neutrophils # Seg Neutrophils # Man D-Dimer ABG pH ABG pO2 ABG HCO3 ABG O2 Saturation ABG Base Excess ABG Hemoglobin Oxyhemoglobin Sodium Chloride Carbon Dioxide BUN Creatinine Glucose POC Glucose 225 H 325 H 148 H Calcium Ferritin AST Lactate Dehydrogenase C-Reactive Protein Total Protein Albumin Coronavirus (PCR) 02/15/21 02/16/21 02/16/21 22:29 07:55 11:02 WBC RBC Hgb MCV MCH RDW Plt Count Lymph % (Auto) [place] % (Auto) Lymph # (Auto) Seg Neutrophils % Seg Neuts % (Manual) Lymphocytes % (Manual) Seg Neutrophils # Seg Neutrophils # Man D-Dimer ABG pH ABG pO2 ABG HCO3 ABG O2 Saturation ABG Base Excess ABG Hemoglobin Oxyhemoglobin Sodium Chloride Carbon Dioxide BUN Creatinine Glucose POC Glucose 239 H 138 H 337 H Calcium Ferritin AST Lactate Dehydrogenase C-Reactive Protein Total Protein Albumin Coronavirus (PCR) 02/16/21 02/16/21 02/17/21 16:41 21:46 06:53 WBC RBC Hgb MCV 78 L MCH 24 L RDW 18.9 H Plt Count Lymph % (Auto) [place] % (Auto) Lymph # (Auto) Seg Neutrophils % Seg Neuts % (Manual) Lymphocytes % (Manual) Seg Neutrophils # Seg Neutrophils # Man D-Dimer ABG pH ABG pO2 ABG HCO3 ABG O2 Saturation ABG Base Excess ABG Hemoglobin Oxyhemoglobin Sodium Chloride Carbon Dioxide BUN Creatinine Glucose POC Glucose 138 H 286 H Calcium Ferritin AST Lactate Dehydrogenase C-Reactive Protein Total Protein Albumin Coronavirus (PCR) 02/17/21 02/17/21 02/17/21 06:53 07:37 11:12 WBC RBC Hgb MCV MCH RDW Plt Count Lymph % (Auto) [place] % (Auto) Lymph # (Auto) Seg Neutrophils % Seg Neuts % (Manual) Lymphocytes % (Manual) Seg Neutrophils # Seg Neutrophils # Man D-Dimer ABG pH ABG pO2 ABG HCO3 ABG O2 Saturation ABG Base Excess ABG Hemoglobin Oxyhemoglobin Sodium Chloride Carbon Dioxide 31 H BUN 20 H Creatinine 0.4 L Glucose 238 H POC Glucose 251 H 221 H Calcium Ferritin AST Lactate Dehydrogenase C-Reactive Protein Total Protein Albumin Coronavirus (PCR) 02/17/21 02/17/21 02/18/21 16:36 21:21 08:01 WBC RBC Hgb MCV MCH RDW Plt Count Lymph % (Auto) [place] % (Auto) Lymph # (Auto) Seg Neutrophils % Seg Neuts % (Manual) Lymphocytes % (Manual) Seg Neutrophils # Seg Neutrophils # Man D-Dimer ABG pH ABG pO2 ABG HCO3 ABG O2 Saturation ABG Base Excess ABG Hemoglobin Oxyhemoglobin Sodium Chloride Carbon Dioxide BUN Creatinine Glucose POC Glucose 213 H 185 H 280 H Calcium Ferritin AST Lactate Dehydrogenase C-Reactive Protein Total Protein Albumin Coronavirus (PCR) 02/18/21 02/18/21 02/18/21 11:55 15:33 21:48 WBC RBC Hgb MCV MCH RDW Plt Count Lymph % (Auto) [place] % (Auto) Lymph # (Auto) Seg Neutrophils % Seg Neuts % (Manual) Lymphocytes % (Manual) Seg Neutrophils # Seg Neutrophils # Man D-Dimer ABG pH ABG pO2 ABG HCO3 ABG O2 Saturation ABG Base Excess ABG Hemoglobin Oxyhemoglobin Sodium Chloride Carbon Dioxide BUN Creatinine Glucose POC Glucose 303 H 276 H 288 H Calcium Ferritin AST Lactate Dehydrogenase C-Reactive Protein Total Protein Albumin Coronavirus (PCR) 02/19/21 02/19/21 02/19/21 08:22 12:05 17:18 WBC RBC Hgb MCV MCH RDW Plt Count Lymph % (Auto) [place] % (Auto) Lymph # (Auto) Seg Neutrophils % Seg Neuts % (Manual) Lymphocytes % (Manual) Seg Neutrophils # Seg Neutrophils # Man D-Dimer ABG pH ABG pO2 ABG HCO3 ABG O2 Saturation ABG Base Excess ABG Hemoglobin Oxyhemoglobin Sodium Chloride Carbon Dioxide BUN Creatinine Glucose POC Glucose 247 H 274 H 135 H Calcium Ferritin AST Lactate Dehydrogenase C-Reactive Protein Total Protein Albumin Coronavirus (PCR) 02/19/21 02/20/21 02/20/21 21:11 08:00 10:54 WBC RBC Hgb MCV 78 L MCH 24 L RDW 18.4 H Plt Count Lymph % (Auto) 6.6 L [place] % (Auto) Lymph # (Auto) 0.5 L Seg Neutrophils % 89.2 H Seg Neuts % (Manual) Lymphocytes % (Manual) Seg Neutrophils # Seg Neutrophils # Man D-Dimer ABG pH ABG pO2 ABG HCO3 ABG O2 Saturation ABG Base Excess ABG Hemoglobin Oxyhemoglobin Sodium Chloride Carbon Dioxide BUN Creatinine Glucose POC Glucose 341 H 238 H Calcium Ferritin AST Lactate Dehydrogenase C-Reactive Protein Total Protein Albumin Coronavirus (PCR) 02/20/21 02/20/21 02/20/21 10:54 11:16 17:27 WBC RBC Hgb MCV MCH RDW Plt Count Lymph % (Auto) [place] % (Auto) Lymph # (Auto) Seg Neutrophils % Seg Neuts % (Manual) Lymphocytes % (Manual) Seg Neutrophils # Seg Neutrophils # Man D-Dimer ABG pH ABG pO2 ABG HCO3 ABG O2 Saturation ABG Base Excess ABG Hemoglobin Oxyhemoglobin Sodium Chloride 97.8 L Carbon Dioxide BUN 22 H Creatinine 0.5 L Glucose 297 H POC Glucose 305 H 256 H Calcium Ferritin AST Lactate Dehydrogenase C-Reactive Protein Total Protein Albumin Coronavirus (PCR) 02/20/21 02/21/21 02/21/21 21:06 07:36 12:16 WBC RBC Hgb MCV MCH RDW Plt Count Lymph % (Auto) [place] % (Auto) Lymph # (Auto) Seg Neutrophils % Seg Neuts % (Manual) Lymphocytes % (Manual) Seg Neutrophils # Seg Neutrophils # Man D-Dimer ABG pH ABG pO2 ABG HCO3 ABG O2 Saturation ABG Base Excess ABG Hemoglobin Oxyhemoglobin Sodium Chloride Carbon Dioxide BUN Creatinine Glucose POC Glucose 235 H 357 H 229 H Calcium Ferritin AST Lactate Dehydrogenase C-Reactive Protein Total Protein Albumin Coronavirus (PCR) 02/21/21 02/21/21 02/22/21 17:13 21:48 07:43 WBC RBC Hgb MCV MCH RDW Plt Count Lymph % (Auto) [place] % (Auto) Lymph # (Auto) Seg Neutrophils % Seg Neuts % (Manual) Lymphocytes % (Manual) Seg Neutrophils # Seg Neutrophils # Man D-Dimer ABG pH ABG pO2 ABG HCO3 ABG O2 Saturation ABG Base Excess ABG Hemoglobin Oxyhemoglobin Sodium Chloride Carbon Dioxide BUN Creatinine Glucose POC Glucose 289 H 333 H 250 H Calcium Ferritin AST Lactate Dehydrogenase C-Reactive Protein Total Protein Albumin Coronavirus (PCR) 02/22/21 11:10 WBC RBC Hgb MCV MCH RDW Plt Count Lymph % (Auto) [place] % (Auto) Lymph # (Auto) Seg Neutrophils % Seg Neuts % (Manual) Lymphocytes % (Manual) Seg Neutrophils # Seg Neutrophils # Man D-Dimer ABG pH ABG pO2 ABG HCO3 ABG O2 Saturation ABG Base Excess ABG Hemoglobin Oxyhemoglobin Sodium Chloride Carbon Dioxide BUN Creatinine Glucose POC Glucose 243 H Calcium Ferritin AST Lactate Dehydrogenase C-Reactive Protein Total Protein Albumin Coronavirus (PCR)
[2021-02-22] MEDS: MIRTAZAPINE 15 MG TAB PO SCH (23:01)
[2021-02-22] MEDS: INSULIN GLARGINE 100 UNITS/ML SUB-Q SCH (23:04)
--- NOTE | 2021-02-22 23:44 | Event Note ---
Date: 02/22/21 Notified by nurse patient has refused all her night meds, moreover patient has been refusing meds all day. Patient has history of schizophrenia, review of chart shows patient was seen by psych back on 01/24/2021. Will put in for reconsult for psych eval
[2021-02-23] MEDS: INSULIN LISPRO 100 UNIT/ML SUB-Q SCH ×3 (09:57→18:22)
[2021-02-23] MEDS: PALIPERIDONE ER 3 MG TAB PO SCH (09:58)
[2021-02-23] MEDS: ARIPiprazole 15 MG TAB PO SCH (09:58)
[2021-02-23] MEDS: predniSONE 20 MG TAB PO SCH (09:58)
[2021-02-23] MEDS: METOPROLOL TARTRATE 25 MG TAB PO SCH (09:59)
[2021-02-23] MEDS: ASCORBIC ACID 500 MG TAB PO SCH (09:59)
[2021-02-23] MEDS: FAMOTIDINE 20 MG TAB PO SCH (09:59)
[2021-02-23] MEDS: ZINC SULFATE 220 MG CAP PO SCH (09:59)
[2021-02-23] MEDS: CHOLECALCIFEROL (VIT D3) 5,000 UNIT TAB PO SCH (09:59)
[2021-02-23] MEDS: DIVALPROEX ER 500 MG TAB PO SCH (10:44)
[2021-02-23] MEDS: APIXABAN 2.5 MG TAB PO SCH (10:45)
[2021-02-23] MEDS: FUROSEMIDE 40 MG/4 ML INJ IV SCH (10:45)
--- NOTE | 2021-02-23 10:47 | Progress Note ---
Assessment and Plan Assessment and plan: This is a 55-year-old female with schizophrenia who presented to [facility] on 01/18 for shortness of breath, cough, subjective fever and not feeling well for the last couple days with known COVID-19 exposure. While in the emergency room patient was switched from non rebreather mask to high flow nasal cannula and his CTA chest showed no acute pulmonary embolism. Patient was admitted to the hospital service as a COVID-19 PUI with consults to [facility], infectious disease, psych. 01/18/2021 -Acute hypoxic respiratory failure requiring high flow oxygen 40 L. Nebulizer treatment -Patient is admitted for suspected Covid pneumonia. Patient is on dexamethasone, COVID-19 test is pending. Patient is on empiric antibiotics. -ID consulted, will consult pulmonary. -Patient has hyponatremia yesterday and I will repeat and if it is low I will manage accordingly -Patient has elevated D-dimer and CTA chest and bilateral Doppler ultrasound of the lower extremities pending 01/19/2021 -Acute hypoxic respiratory failure currently on BiPAP, nebulizer treatment. I will put in orders to transfer to [facility] yesterday but there was no bed. -Patient is positive for Covid and she is on Decadron and remdesivir. Actemra was ordered on 01/19/2021 -ID evaluated the patient and recommend to continue Decadron and remdesivir, also to continue ceftriaxone and azithromycin for 5 days because of the elevated procalcitonin level. Pulmonary was consulted and recommend to continue current management and add Lasix -CTA chest was done and significant for bilateral pulmonary opacities, negative for PE, Doppler ultrasound of the lower extremities was negative for DVT. -Prognosis is guarded. -Patient is currently on BiPAP and she was agitated and trying to take off the BiPAP, I put the patient on restraints. Discussed with house worker to transfer the patient to IM and if there is no bed she need to be transferred to CCU. 01/20: Patient received 5 mg of Haldol for severe agitation and refusal to keep high flow nasal cannula in place. [facility] ordered Lasix again. Psych was consulted today. Patient was on BiPAP therapy all night and RT attempted to give her a break patient is on high flow nasal cannula however she did not keep this in place and was paced back on BiPAP after receiving Haldol. She was started on Lantus today. 01/21: Patient is on BiPAP and on time examination was on 20/10 100% FiO2. Patient was started on Lantus. Psych consult completed and started on Haldol p.o. twice daily and Mirtazepin PO daily. No acute events reported overnight. Patient's D-dimer is greater than 10,000 started on prophylactic Lovenox as recent CTA chest and bilateral lower extremity Doppler ultrasound were negative. 01/22: Patient has been taken off BiPAP therapy and placed on high flow nasal cannula. Patient has been downgraded to IMCU. Patient's hyponatremia and hypochloremia have worsened. 01/23: Patient was on BiPAP overnight with FiO2 85% and IPAP 20/EPAP 10. Patient currently with high flow nasal cannula 40 L O2 with an FiO2 of 100%. Continue remdesivir and dexamethasone. Patient is s/p Actemra on 01/20. Continue empiric antibiotics per ID recommendations. Continue anticoagulation per protocol. 01/24: Patient is tachycardic and hypertensive and [facility] has opted to add amlodipine. Patient remains on 40 L 100% high flow nasal cannula. Continue remdesivir and dexamethasone. Patient is s/p Actemra on 01/20. Continue empiric antibiotics per ID recommendations. Continue anticoagulation per protocol. 01/25: Patient currently with high flow nasal cannula 40 L/min with FiO2 100%. Continue dexamethasone. Patient has completed remdesivir and s/p Actemra on 01/20. Continue full dose anticoagulation given high elevated D-dimer. Continue to trend inflammatory markers. Prognosis remains guarded. 01/26: Patient currently with high flow nasal cannula 35 L/min and FiO2 90%. Continue dexamethasone. Patient has completed remdesivir and s/p Actemra on 01/20. Continue full dose anticoagulation given high elevated D-dimer. Continue to trend inflammatory markers. Prognosis remains guarded. 01/27: Patient currently with high flow nasal cannula/Vapotherm 35 L/min O2 with FiO2 90%. Patient has completed remdesivir and s/p Actemra on 01/20. Continue full dose anticoagulation given high elevated D-dimer. Continue to trend inflammatory markers. Prognosis remains guarded. 01/28; Patient currently with high flow nasal cannula/Vapotherm 35 L/min O2 with FiO2 90%. Patient has completed remdesivir and s/p Actemra on 01/20. Continue full dose anticoagulation given high elevated D-dimer. Continue to trend inflammatory markers. Prognosis remains guarded. 01/29; patient is currently on 35 L of high flow oxygen. Prognosis guarded. Patient can be transferred to regular floor. 01/30/2021; patient is currently on 35 L of high flow oxygen, FiO2 of 65%. Patient has flat affect and did not talk to me. Patient refused most of her p.o. medications. Patient finished remdesivir, steroid. 01/31/2021; patient is on 35 L of high flow oxygen, FiO2 65%. Patient was calm and cooperative and communicative today. pulmonary is following. Patient finished remdesivir and steroid. 02/01/2021; patient was on 40 L of high flow oxygen.. I have called and discussed with her mother yesterday. Her mother told me patient was last followed at [facility] and I called facility and they told me medication she was on and I put these medications. Patient refused to eat so I put the patient on NG tube feeding for medications. Prognosis is guarded. 02/02/2021; patient is on 4 L of high flow oxygen with FiO2 of 60%. Her outpatient psych medications were reconciled. Patient was taking medications and as needed NG tube. Pulmonary is following the patient. 02/03/21: Patient noted with mild epistaxis this morning we will order some Afrin to help. Continue current management patient is on 35 L high flow. No worsening distress but still with intermittent confusion sometimes takes off the oxygen. Will repeat a trial of Lasix and monitor renal function with a.m. labs. Plan discussed with nurse at bedside. I also encouraged proning again. 02/04: Unfortunately still with hypoxia desaturating required increased to 50 L and 70% will gradually taper down. Patient due to her underlying psych history of schizophrenia is noncompliant. Daughter is working on getting guardianship over the patient. This will likely be a slow process nevertheless we will still obtain a CT of the head to ensure no other pathology. We will get an ABG and a chest x-ray today. 02/05: Patient overnight had an episode where she coughed up blood. H&H has remained stable. She has been since discontinued from full dose anticoagulants to DVT prophylactic dose. Chest x-ray shows mild worsening of congestion. Will discuss with pulmonary if patient will benefit from BiPAP during hours of sleep. Still awaiting information from family on prior psych medications that the patient was on psych review with psychiatry team as her mental status remains a deterrent and an impediment to oxygen management. We will give a trial dose of Lasix x 3 days. Will transfer to [facility] for closer monitoring 02/06: Continue supportive care, 2 more days of lasix, monitor BMP closely wean oxygen as tolerated, pulmonary input noted 02/07: Continues on High flow. Refusing medications, still with severe hypoxia, Discussed with Psych to re-evaluate the patient. 02/08: Unfortunately patient was not seen by psych yesterday and I still do not have home medication listed I asked the family and they promised to bring her in. We discussed with nursing staff to ask again. We will also reconsult psych as her underlying psych condition is precluding improvement due to her refusal of medical treatments. Patient continues on high flow 10 today will be to further wean down if tolerated. She is still refusing prone position 02/09: Patient remains on oxygen, not compliance, continues on restraints to assist with compliance, will try to wean again 02/10: Restart lasix, discussed with Case Specialist considering starting on PrECEDEX, Monitor electrolytes. Prognosis is guarded. 02/11/2021; patient is on Lasix, Precedex and Solu-Medrol 40 mg every 8 hours. Patient's blood sugar is elevated and I increase Lantus from 20-25 nightly, give her a dose of 10 units of Lantus now. Will monitor blood sugar. Prognosis very poor. 02/12/2021; patient is on 40 L of high flow oxygen, 94% FiO2. Pulmonary is following the patient and recommendations noted. Dr Mancilla Discussed with the patient and the mother about the plan of care and the high risk of her condition and refusal of care. 02/13/2021; patient was on 30 L of high flow oxygen with FiO2 of 90%. Pulmonary is following the patient. Continue [facility] care. Prognosis is guarded. 02/14/2021; patient is on 30 L of high flow oxygen with FiO2 of 90%. Continue inpatient care. 02/15/2021; patient was alert and oriented. Patient states she is feeling okay today. Patient is on 30 L of high flow oxygen with FiO2 of 90%. Patient was given Lasix yesterday. Wean as tolerated. 02/16/2021; patient was alert and oriented. Patient states she is feeling better . Patient is on 25 L of high flow oxygen with FiO2 of 75%. Wean oxygen as tolerated. 02/17: Continue supportive care. Continue to wean as tolerated. Blood sugar 251 mildly elevated will adjust insulin for better control as patient still on steroids Lasix today per Pulmonary no indication to wean steroids until lower FiO2 obtained. 02/18: Agree with intermittent Lasix. Discussed with case management about possible LTAC no Medicaid bed available per documentation. We will continue to follow for now we will continue aggressive weaning of oxygen. 02/19: Patient continues on high flow receiving intermittent Lasix with pulmonary guidance. Continue current management and weaning off oxygen. Continue passive range of motion while in bed. Fall precautions. 02/20: Continue supportive care, continue under pulmonary guidance, continue pressure ulcer prevention techniques. Discussed with team to ensure patient is moving, being turned q2hrs and daily skin integrity exam 02/21: This morning found patient on 8 L nasal cannula satting 97% down to 5 L and she still satting 95 to 97% after 4 hours. I have further decreased it to 3 L of oxygen and I have discussed with nursing staff to recheck it again in the next 2 hours and also ambulate the patient on 3 L of oxygen. She does not demonstrate any further respiratory distress worsening. We will continue current management and adjust as needed. Case management looking for placement 02/22: On 3 L of oxygen patient saturation dropped to the 80s 89-91 range. Patient back up to 5 L because this was at rest. Continue steroids will discuss with ID if this can be changed to p.o. steroids. Will give additional dose of Lasix today. Encourage some physical therapy sitting up and any activity to prevent debility. 02/23: She tells me that she is here on a work related bases, she is unfortunately totally confused refusing medications which precludes management of her condition. As a result we will not make any adjustments to her insulin therapy continue steroids continue to monitor nurses will continue to ask her to give her her meds. If it becomes to the point where her blood sugar increases out of control additional measures may need to be implemented. I agree with reconsult the psych team. Severe COVID-19 pneumonia Acute hypoxic respiratory failure Obesity Schizophrenia Leukocytosis Hyperglycemia Schizophrenia Hypernatremia Hypercholermia Diabetes mellitus with hyperglycemia -[facility], infectious disease, psychiatry consulted, -COVID-19 PCR positive -Droplet/contact isolation -Status post remdesivir, azithromycin, ceftriaxone, -s/p Actemra -Wean supplemental oxygen as tolerated, pulmonary hygiene -Prone as tolerated -Trend COVID-19 inflammatory markers for risk stratification, CBC, CMP -SSI, Lantus -01/18 bilateral lower extremity Doppler ultrasound negative for DVT -01/17 CTA shows no evidence of pulmonary embolism, extensive bilateral pneumonia, hepatomegaly with hepatic steatosis History Interval history: Patient seen and examined, no new complaints, unfortunately there is a decline in mental status with encephalopathy as patient refusing meds at this time Hospitalist Physical - Physical exam Narrative exam: Patient was 8 L of oxygen nasal cannula The patient appeared well nourished and normally developed. Vital signs as documented. Head exam is unremarkable. No scleral icterus . Neck is without jugular venous distension, thyromegaly, or carotid bruits. Lungs decreased air entry on both lungs Cardiac exam reveals regular rate and Rhythm. Abdominal exam reveals normal bowel sounds, nontender, no organomegaly. Extremities are nonedematous and both femoral and pedal pulses are normal. PULP ROLLER: Patient was alert and oriented. X1 to person but confused place and time - Constitutional Vitals: Temp Pulse Resp BP Pulse Ox 98.6 F 107 H 18 152/75 96 02/23/21 04:59 02/23/21 04:59 02/23/21 04:59 02/23/21 04:59 02/23/21 09:33 General appearance: Present: no acute distress, well-nourished HEART Score - HEART Score Troponin: Troponin T < 0.010 ng/mL (0.00-0.029) 01/17/21 16:41 Results - Labs CBC & Chem 7: 02/20/21 10:54 02/20/21 10:54 Labs: Laboratory Last Values WBC 8.0 K/mm3 (4.5-11.0) 02/20/21 10:54 RBC 4.40 M/mm3 (3.65-5.03) 02/20/21 10:54 Hgb 10.5 gm/dl (10.1-14.3) 02/20/21 10:54 Hct 34.1 % (30.3-42.9) 02/20/21 10:54 MCV 78 fl (79-97) L 02/20/21 10:54 MCH 24 pg (28-32) L 02/20/21 10:54 MCHC 31 % (30-34) 02/20/21 10:54 RDW 18.4 % (13.2-15.2) H 02/20/21 10:54 Plt Count 355 K/mm3 (140-440) 02/20/21 10:54 Lymph % (Auto) 6.6 % (13.4-35.0) L 02/20/21 10:54 Wheeler % (Auto) 3.5 % (0.0-7.3) 02/20/21 10:54 Eos % (Auto) 0.0 % (0.0-4.3) 02/20/21 10:54 Baso % (Auto) 0.7 % (0.0-1.8) 02/20/21 10:54 Lymph # (Auto) 0.5 K/mm3 (1.2-5.4) L 02/20/21 10:54 Wheeler # (Auto) 0.3 K/mm3 (0.0-0.8) 02/20/21 10:54 Eos # (Auto) 0.0 K/mm3 (0.0-0.4) 02/20/21 10:54 Baso # (Auto) 0.1 K/mm3 (0.0-0.1) 02/20/21 10:54 Add Manual Diff Complete 01/19/21 05:11 Total Counted 100 01/19/21 05:11 Seg Neutrophils % 89.2 % (40.0-70.0) H 02/20/21 10:54 Seg Neuts % (Manual) 88.0 % (40.0-70.0) H 01/19/21 05:11 Lymphocytes % (Manual) 10.0 % (13.4-35.0) L 01/19/21 05:11 Monocytes % (Manual) 2.0 % (0.0-7.3) 01/19/21 05:11 Nucleated RBC % Not Reportable 01/19/21 05:11 Seg Neutrophils # 7.2 K/mm3 (1.8-7.7) 02/20/21 10:54 Seg Neutrophils # Man 12.5 K/mm3 (1.8-7.7) H 01/19/21 05:11 Band Neutrophils # 0.0 K/mm3 01/19/21 05:11 Lymphocytes # (Manual) 1.4 K/mm3 (1.2-5.4) 01/19/21 05:11 Abs React Lymphs (Man) 0.0 K/mm3 01/19/21 05:11 Monocytes # (Manual) 0.3 K/mm3 (0.0-0.8) 01/19/21 05:11 Eosinophils # (Manual) 0.0 K/mm3 (0.0-0.4) 01/19/21 05:11 Basophils # (Manual) 0.0 K/mm3 (0.0-0.1) 01/19/21 05:11 Metamyelocytes # 0.0 K/mm3 01/19/21 05:11 Myelocytes # 0.0 K/mm3 01/19/21 05:11 Promyelocytes # 0.0 K/mm3 01/19/21 05:11 Blast Cells # 0.0 K/mm3 01/19/21 05:11 WBC Morphology Not Reportable 01/19/21 05:11 Hypersegmented Neuts Not Reportable 01/19/21 05:11 Hyposegmented Neuts Not Reportable 01/19/21 05:11 Hypogranular Neuts Not Reportable 01/19/21 05:11 Smudge Cells Not Reportable 01/19/21 05:11 Toxic Granulation Not Reportable 01/19/21 05:11 Toxic Vacuolation Not Reportable 01/19/21 05:11 Dohle Bodies Not Reportable 01/19/21 05:11 Pelger-Huet Anomaly Not Reportable 01/19/21 05:11 Inder Rods Not Reportable 01/19/21 05:11 Platelet Estimate Consistent w auto 01/19/21 05:11 Clumped Platelets Not Reportable 01/19/21 05:11 Plt Clumps, EDTA Not Reportable 01/19/21 05:11 Large Platelets Not Reportable 01/19/21 05:11 Giant Platelets Not Reportable 01/19/21 05:11 Platelet Satelliting Not Reportable 01/19/21 05:11 Plt Morphology Comment Not Reportable 01/19/21 05:11 RBC Morphology Not Reportable 01/19/21 05:11 Dimorphic RBCs Not Reportable 01/19/21 05:11 Polychromasia Not Reportable 01/19/21 05:11 Hypochromasia 1+ 01/19/21 05:11 Poikilocytosis Not Reportable 01/19/21 05:11 Anisocytosis Not Reportable 01/19/21 05:11 Microcytosis Not Reportable 01/19/21 05:11 Macrocytosis Not Reportable 01/19/21 05:11 Spherocytes Not Reportable 01/19/21 05:11 Pappenheimer Bodies Not Reportable 01/19/21 05:11 Sickle Cells Not Reportable 01/19/21 05:11 Target Cells Not Reportable 01/19/21 05:11 Tear Drop Cells Not Reportable 01/19/21 05:11 Ovalocytes Not Reportable 01/19/21 05:11 Helmet Cells Not Reportable 01/19/21 05:11 Navarro-Bristol Bodies Not Reportable 01/19/21 05:11 [place] Rings Not Reportable 01/19/21 05:11 [place] Cells Not Reportable 01/19/21 05:11 Bite Cells Not Reportable 01/19/21 05:11 Crenated Cell Not Reportable 01/19/21 05:11 Elliptocytes Not Reportable 01/19/21 05:11 Acanthocytes (Spur) Not Reportable 01/19/21 05:11 Rouleaux Not Reportable 01/19/21 05:11 Hemoglobin C Crystals Not Reportable 01/19/21 05:11 Schistocytes Not Reportable 01/19/21 05:11 Malaria parasites Not Reportable 01/19/21 05:11 Chai Bodies Not Reportable 01/19/21 05:11 Hem Pathologist Commnt No 01/19/21 05:11 PT 13.6 Sec. (12.2-14.9) 02/04/21 14:52 INR 1.06 (0.87-1.13) 02/04/21 14:52 APTT 30.7 Sec. (24.2-36.6) 02/04/21 14:52 D-Dimer 1884.49 ng/mlDDU (0-234) H 01/28/21 08:46 ABG pH 7.309 pH Units (7.350-7.450) L 02/10/21 09:30 ABG pCO2 59.4 mm Hg 02/10/21 09:30 ABG pO2 71.2 mm Hg (80.0-90.0) L 02/10/21 09:30 ABG HCO3 29.1 mmol/L (20.0-26.0) H 02/10/21 09:30 ABG O2 Saturation 92.4 % (95.0-99.0) L 02/10/21 09:30 ABG O2 Content 14.2 (0.0-44) 02/10/21 09:30 ABG Base Excess 1.8 mmol/L (-2.0-3.0) 02/10/21 09:30 ABG Hemoglobin 11.2 gm/dl (12.0-16.0) L 02/10/21 09:30 ABG Carboxyhemoglobin 1.8 % (0.0-5.0) 02/10/21 09:30 ABG Methemoglobin 0.6 % (0.0-1.5) 02/10/21 09:30 Oxyhemoglobin 90.2 % (95.0-99.0) L 02/10/21 09:30 FiO2 100 % 02/10/21 09:30 Sodium 139 mmol/L (137-145) 02/20/21 10:54 Potassium 4.8 mmol/L (3.6-5.0) 02/20/21 10:54 Chloride 97.8 mmol/L (98-107) L 02/20/21 10:54 Carbon Dioxide 29 mmol/L (22-30) 02/20/21 10:54 Anion Gap 17 mmol/L 02/20/21 10:54 BUN 22 mg/dL (7-17) H 02/20/21 10:54 Creatinine 0.5 mg/dL (0.6-1.2) L 02/20/21 10:54 Estimated GFR > 60 ml/min 02/20/21 10:54 BUN/Creatinine Ratio 44 % 02/20/21 10:54 Glucose 297 mg/dL (65-100) H 02/20/21 10:54 POC Glucose 205 mg/dL (70-105) H 02/23/21 07:54 Lactic Acid 1.70 mmol/L (0.7-2.0) 01/17/21 16:41 Calcium 9.0 mg/dL (8.4-10.2) 02/20/21 10:54 Ferritin 797.7 ng/mL (10.0-200.0) H 01/28/21 08:46 Total Bilirubin 0.30 mg/dL (0.1-1.2) 01/21/21 11:29 AST 34 units/L (5-40) 01/21/21 11:29 ALT 38 units/L (7-56) 01/21/21 11:29 Alkaline Phosphatase 117 units/L (35-129) 01/21/21 11:29 Ammonia 43.0 umol/L (25-60) 02/04/21 14:52 Lactate Dehydrogenase 556 units/L (91-180) H 01/28/21 08:46 Troponin T < 0.010 ng/mL (0.00-0.029) 01/17/21 16:41 C-Reactive Protein 0.20 mg/dL (0.00-1.30) 01/28/21 08:46 NT-Pro-B Natriuret Pep 40.88 pg/mL (0-900) 01/17/21 16:41 Total Protein 7.3 g/dL (6.3-8.2) 01/21/21 11:29 Albumin 3.4 g/dL (3.9-5) L 01/21/21 11:29 Albumin/Globulin Ratio 0.9 % 01/21/21 11:29 Procalcitonin 0.39 ng/mL (<0.15) 01/17/21 17:46 Coronavirus (PCR) Negative (Negative) 02/11/21 09:10 Estrada/IV: Voiding Method Bedside Commode Active Medications - Current Medications Current Medications: Generic Name Dose Route Start Last Admin Trade Name Freq PRN Reason Stop Dose Admin Albuterol 2 puff 02/17/21 19:51 Albuterol 8.5 Gm Mdi Inhalation IH Q4HRT PRN Shortness Of Breath Apixaban 2.5 mg 02/04/21 22:00 02/22/21 23:02 Apixaban 2.5 Mg Tab PO Not Given Q12HR PJ Protocol Aripiprazole 15 mg 01/31/21 13:00 02/23/21 09:58 Aripiprazole 15 Mg Tab PO Not Given QDAY [facility] Ascorbic Acid 1,000 mg 02/04/21 10:00 02/23/21 09:59 Ascorbic Acid 500 Mg Tab PO Not Given BID PJ Cholecalciferol 5,000 unit 02/04/21 10:00 02/23/21 09:59 Cholecalciferol (Vit D3) 5,000 Unit Tab PO Not Given DAILY PJ Divalproex Sodium 500 mg 01/31/21 12:00 02/22/21 10:14 Divalproex Er 500 Mg Tab PO 500 mg QDAY PJ Administration Famotidine 20 mg 01/18/21 10:00 02/23/21 09:59 Famotidine 20 Mg Tab PO Not Given BID PJ Furosemide 40 mg 02/22/21 10:00 02/22/21 10:15 Furosemide 40 Mg/4 Ml Inj IV 02/24/21 10:01 40 mg QDAY PJ Administration Hydralazine HCl 10 mg 01/18/21 00:38 02/14/21 06:22 Hydralazine 20 Mg/1 Ml Inj IV 10 mg Q6H PRN Administration htn Hydromorphone HCl 0.5 mg 01/20/21 11:00 02/18/21 07:55 Hydromorphone 1 Mg/1 Ml Inj IV 0.5 mg Q6H PRN Administration Pain , Severe (7-10) Hydrophilic Ointment 1 applic 02/03/21 12:00 Petrolatum,White 30 Gm Oint TP PRN PRN Skin Irritation Insulin Glargine 30 units 02/22/21 22:00 02/22/21 23:04 Insulin Glargine 100 Units/Ml SUB-Q Not Given QHS [facility] Insulin Human Lispro 0 unit 02/01/21 11:30 02/23/21 09:57 Insulin Lispro 100 Unit/Ml SUB-Q Not Given [facility] Protocol Metoprolol Tartrate 12.5 mg 02/01/21 12:00 02/23/21 09:59 Metoprolol Tartrate 25 Mg Tab PO Not Given BID [facility] Mirtazapine 7.5 mg 01/21/21 22:00 02/22/21 23:01 Mirtazapine 15 Mg Tab PO Not Given QHS [facility] Oxymetazoline HCl 2 spray 02/03/21 12:00 02/03/21 13:17 Oxymetazoline 0.05% Nasal [place] NS 2 spray Q12H PRN Administration Congestion Paliperidone 6 mg 01/31/21 13:00 02/23/21 09:58 Paliperidone Er 3 Mg Tab PO Not Given QDAY PJ Prednisone 40 mg 02/23/21 10:00 02/23/21 09:58 Prednisone 20 Mg Tab PO Not Given QDAY PJ Sodium Chloride 10 ml 01/18/21 10:00 02/22/21 10:15 Sodium Chloride 0.9% 10 Ml Flush Syringe IV 10 ml BID PJ Administration Zinc Sulfate 220 mg 02/04/21 10:00 02/23/21 09:59 Zinc Sulfate 220 Mg Cap PO Not Given QDAY PJ Nutrition/Malnutrition Assess - Dietary Evaluation Nutrition/Malnutrition Findings: Nutrition Notes Start: 01/24/21 10:40 Freq: Status: Active Protocol: Document 02/18/21 10:32 AL (Rec: 02/18/21 10:36 AL [id number]) Co-Sign 02/18/21 10:32 LP Nutrition Notes Initial or Follow up Brief Note Current Diagnosis Respiratory Failure Other Pertinent Diagnosis pneu, AMS Current Diet Cardiac/Consistent CHO Height 5 ft 4 in Weight 94 kg [place] Body Weight (kg) 54.54 BMI 35.5 Weight Status Obese Subjective/Other Information F/u for stable intakes.Per ADL and pt, she is tolerating meals at 75-100% and has a stable appetite. She states eating "very well." Nutrition Intervention Anticipated Discharge Needs: Cardiac/Consistent CHO Revisit per MD consult or patient Sign Off request:
--- NOTE | 2021-02-23 12:14 | Progress Note ---
Assessment and Plan 55 y/o female admitted with acute respiratory failure secondary to pneumonia, positive for Sars CoV2 02/23/2021: Patient seems to be refusing all her medications. Remains on oxygen at 4 to 5 L nasal cannula. May require psych evaluation has history of schizophrenia 02/22/2021: Patient fairly stable on nasal cannula. Await evaluation for need for home oxygen. Possible discharge soon 02/21/21: Continue wean. Patient was not on oxygen prior to admit. However 3 liters is stable for discharge if patient qualifies. Can follow up in the office in the next 10-14 days once discharged. 02/20/21: Lasix again today patient is doing very well with this. would recommend checking a chemistry to make sure potassium and renal function are still ok. Continue aggressive weaning of HFNC. Close to a point where we can start weaning steroids. 02/19/21: Lasix 40mg IV again today. Patient is tolerating well. No weaning of steroids just yet but almost off HFNC. Once off, can start to wean. Still would send out referrals to LTACH just in case. Will Continue to follow with you. Continue to wean for sats >88% 02/18/21: Lasix 40mg IV x1 today. Continue to wean FiO2 for sats >88%. Suggest asking CM if patient would be a good LTACH candidate. Continue steroids for now. Will continue to follow. 02/17/21: Lasix again today. Will start to wean steroids once on lower liter flow of oxygen. Not concerned about elevated bicarb on chemistry and does not need diamox therapy at this time. Will continue to follow. 02/16/21: Lasix again today. Sats improving and oxygen requirement is coming down. Continue steroids. Last chemistry was several days ago. Will check again in am. may need BID lasix. 02/15/21: Lasix today. Continue current dose of steroids. Prone if possible. 02/14/21: lasix again today. Prone if possible. Continue steroids. Guarded Prognosis 02/13/21: ordered more lasix for today. Monitor strict I/O. Prone if patient will allow. Continue steroids. 02/12/18: continue lasix therapy daily. Prone if possible. Guarded prognosis. continue steroids 02/11/21: [facility] has ordered lasix daily for 3 days, will continue to monitor. May need to give an additional dose later tonight. Long discussion at bedside this am about he importance of wearing bipap at night and what that means to her overall health. Will discuss with family too. Overall prognosis is very guarded. Will do our best to not intubate this patient given her morbid obesity as this would increase her mortality rate tremendously. Please continue to document refusal of therapy when appropriate. 02/10/21: Lasix today, 40 IV. Will attempt precedex to see if this will help with mental state and cooperation in care. Will also restart steroids but use solumedrol 40q8 dosing. May need to consider adding back the Haldol PRN as well. Guarded prognosis. Will attempt our best to not intubate this patient as her mortality would be extremely high if intubated given her morbid obesity. 02/02/21: Lasix again today. Patient refuses to prone. Guarded prognosis. 02/01/21: Will give another 40 of lasix today. Will speak with RT about being more aggressive with weaning of oxygen. Prone if possible. 01/31/21: Increased lasix to 40 today. Prone if possible. 01/30/21: Lasix 20mg IV today. Continue Antipsychotic therapy management. Prone as tolerated if patient willing. 01/29/21: Will give lasix again today. Will change Haldol to IM since patient is refusing PO meds. 01/28/21: Will give lasix again today. Continue all other therapies. Prone if patient will and tolerate. STeroids. Guarded prognosis. 01/20/21: Gave Haldol 5 and patient has calmed down and become more appropriate, allowing us to place bipap back on. COntinue steroids and remdesivir therapy. Doubt patient will be able to prone successfully. Will try lasix today again to see if this helps. Very very guarded prognosis. 01/19/21: Continue decadron, suggest increase given patient body habitus to BID. ID consult for Remdesivir therapy and to see if she is a candidate for Actemra. Prone as tolerated during the day and sleep prone at night. Will give lasix again today. Guarded prognosis. Subjective Date of service: 02/23/21 Principal diagnosis: Covid-19 Interval history: Patient feeling much better on nasal cannula wants to go home. Patient apparently has been refusing all her meds. Has history of schizophrenia Objective Vital Signs - 12hr 02/23/21 02/23/21 04:59 09:33 Temperature 98.6 F Pulse Rate 107 H Respiratory 18 Rate Blood Pressure 152/75 O2 Sat by Pulse 93 96 Oximetry Constitutional: no acute distress, alert Eyes: non-icteric ENT: oropharynx moist Neck: supple, other (large in circumference) Effort: normal Ascultation: Bilateral: clear, diminished breath sounds Cardiovascular: other (tachy, RR; no mrg) Gastrointestinal: normoactive bowel sounds, soft, non-tender, non-distended Integumentary: normal Extremities: no cyanosis, no edema, pink and warm Neurologic: normal mental status, non-focal exam, pupils equal and round Psychiatric: mood appropriate, affect normal CBC and BMP: 02/20/21 10:54 02/20/21 10:54 ABG, PT/INR, D-dimer: ABG ABG pH 7.309 pH Units (7.350-7.450) L 02/10/21 09:30 ABG pCO2 59.4 mm Hg 02/10/21 09:30 ABG pO2 71.2 mm Hg (80.0-90.0) L 02/10/21 09:30 ABG O2 Saturation 92.4 % (95.0-99.0) L 02/10/21 09:30 PT/INR, D-dimer PT 13.6 Sec. (12.2-14.9) 02/04/21 14:52 INR 1.06 (0.87-1.13) 02/04/21 14:52 D-Dimer 1884.49 ng/mlDDU (0-234) H 01/28/21 08:46 Abnormal lab findings: Abnormal Labs 01/17/21 01/17/21 01/17/21 09:25 16:41 16:41 WBC RBC 5.23 H Hgb MCV 76 L MCH 24 L RDW Plt Count Lymph % (Auto) 9.4 L [place] % (Auto) Lymph # (Auto) 0.8 L Seg Neutrophils % 85.4 H Seg Neuts % (Manual) Lymphocytes % (Manual) Seg Neutrophils # Seg Neutrophils # Man D-Dimer ABG pH ABG pO2 ABG HCO3 ABG O2 Saturation ABG Base Excess ABG Hemoglobin Oxyhemoglobin Sodium 128 L Chloride 90.8 L Carbon Dioxide BUN Creatinine Glucose 372 H POC Glucose Calcium Ferritin AST 98 H Lactate Dehydrogenase C-Reactive Protein Total Protein Albumin 3.2 L Coronavirus (PCR) Positive A 01/17/21 01/17/21 01/17/21 17:46 17:46 17:46 WBC RBC Hgb MCV MCH RDW Plt Count Lymph % (Auto) [place] % (Auto) Lymph # (Auto) Seg Neutrophils % Seg Neuts % (Manual) Lymphocytes % (Manual) Seg Neutrophils # Seg Neutrophils # Man D-Dimer 1058.54 H ABG pH ABG pO2 ABG HCO3 ABG O2 Saturation ABG Base Excess ABG Hemoglobin Oxyhemoglobin Sodium Chloride Carbon Dioxide BUN Creatinine Glucose 369 H POC Glucose Calcium Ferritin 668.4 H AST Lactate Dehydrogenase 519 H C-Reactive Protein 19.20 H Total Protein Albumin Coronavirus (PCR) 01/18/21 01/18/21 01/19/21 09:01 17:18 05:11 WBC 14.2 H RBC Hgb MCV 74 L MCH 23 L RDW Plt Count Lymph % (Auto) [place] % (Auto) Lymph # (Auto) Seg Neutrophils % Seg Neuts % (Manual) 88.0 H Lymphocytes % (Manual) 10.0 L Seg Neutrophils # Seg Neutrophils # Man 12.5 H D-Dimer ABG pH 7.461 H ABG pO2 53.1 L ABG HCO3 ABG O2 Saturation 89.4 L ABG Base Excess ABG Hemoglobin Oxyhemoglobin 88.0 L Sodium 132 L Chloride 93.6 L Carbon Dioxide BUN 18 H Creatinine Glucose 367 H POC Glucose Calcium 7.8 L Ferritin AST Lactate Dehydrogenase C-Reactive Protein Total Protein Albumin Coronavirus (PCR) 01/19/21 01/19/21 01/19/21 05:11 11:06 14:43 WBC RBC Hgb MCV MCH RDW Plt Count Lymph % (Auto) [place] % (Auto) Lymph # (Auto) Seg Neutrophils % Seg Neuts % (Manual) Lymphocytes % (Manual) Seg Neutrophils # Seg Neutrophils # Man D-Dimer ABG pH ABG pO2 ABG HCO3 ABG O2 Saturation ABG Base Excess ABG Hemoglobin Oxyhemoglobin Sodium Chloride Carbon Dioxide BUN 18 H Creatinine Glucose 304 H 379 H POC Glucose 382 H Calcium 8.3 L Ferritin AST 92 H 96 H Lactate Dehydrogenase C-Reactive Protein Total Protein Albumin 3.0 L 3.0 L Coronavirus (PCR) 01/19/21 01/19/21 01/20/21 16:18 22:18 07:31 WBC RBC Hgb MCV MCH RDW Plt Count Lymph % (Auto) [place] % (Auto) Lymph # (Auto) Seg Neutrophils % Seg Neuts % (Manual) Lymphocytes % (Manual) Seg Neutrophils # Seg Neutrophils # Man D-Dimer ABG pH ABG pO2 ABG HCO3 ABG O2 Saturation ABG Base Excess ABG Hemoglobin Oxyhemoglobin Sodium Chloride Carbon Dioxide BUN Creatinine Glucose POC Glucose 374 H 341 H 344 H Calcium Ferritin AST Lactate Dehydrogenase C-Reactive Protein Total Protein Albumin Coronavirus (PCR) 01/20/21 01/20/21 01/20/21 07:33 12:14 13:54 WBC RBC Hgb MCV MCH RDW Plt Count Lymph % (Auto) [place] % (Auto) Lymph # (Auto) Seg Neutrophils % Seg Neuts % (Manual) Lymphocytes % (Manual) Seg Neutrophils # Seg Neutrophils # Man D-Dimer ABG pH ABG pO2 ABG HCO3 ABG O2 Saturation ABG Base Excess ABG Hemoglobin Oxyhemoglobin Sodium Chloride Carbon Dioxide BUN 32 H 31 H Creatinine Glucose 343 H 396 H POC Glucose 365 H Calcium Ferritin AST 57 H 54 H Lactate Dehydrogenase C-Reactive Protein Total Protein 8.3 H Albumin 2.7 L 3.1 L Coronavirus (PCR) 01/20/21 01/20/21 01/21/21 18:28 21:25 04:45 WBC RBC Hgb MCV MCH RDW Plt Count Lymph % (Auto) [place] % (Auto) Lymph # (Auto) Seg Neutrophils % Seg Neuts % (Manual) Lymphocytes % (Manual) Seg Neutrophils # Seg Neutrophils # Man D-Dimer ABG pH ABG pO2 ABG HCO3 ABG O2 Saturation ABG Base Excess ABG Hemoglobin Oxyhemoglobin Sodium Chloride Carbon Dioxide 31 H BUN 41 H Creatinine Glucose 377 H POC Glucose 403 H 340 H Calcium Ferritin AST Lactate Dehydrogenase C-Reactive Protein Total Protein 8.3 H Albumin 3.0 L Coronavirus (PCR) 01/21/21 01/21/21 01/21/21 04:45 04:45 04:45 WBC RBC Hgb MCV MCH RDW Plt Count Lymph % (Auto) [place] % (Auto) Lymph # (Auto) Seg Neutrophils % Seg Neuts % (Manual) Lymphocytes % (Manual) Seg Neutrophils # Seg Neutrophils # Man D-Dimer > 91340 H ABG pH ABG pO2 ABG HCO3 ABG O2 Saturation ABG Base Excess ABG Hemoglobin Oxyhemoglobin Sodium Chloride Carbon Dioxide BUN Creatinine Glucose POC Glucose Calcium Ferritin 1688.0 H AST Lactate Dehydrogenase 649 H C-Reactive Protein 17.00 H Total Protein Albumin Coronavirus (PCR) 01/21/21 01/21/21 01/21/21 09:45 11:29 12:09 WBC RBC Hgb MCV MCH RDW Plt Count Lymph % (Auto) [place] % (Auto) Lymph # (Auto) Seg Neutrophils % Seg Neuts % (Manual) Lymphocytes % (Manual) Seg Neutrophils # Seg Neutrophils # Man D-Dimer ABG pH ABG pO2 ABG HCO3 ABG O2 Saturation ABG Base Excess ABG Hemoglobin Oxyhemoglobin Sodium 151 H Chloride Carbon Dioxide BUN 40 H Creatinine Glucose 412 H POC Glucose 401 H 372 H Calcium Ferritin AST Lactate Dehydrogenase C-Reactive Protein Total Protein Albumin 3.4 L Coronavirus (PCR) 01/21/21 01/21/21 01/22/21 18:26 21:09 02:00 WBC RBC Hgb MCV MCH RDW Plt Count Lymph % (Auto) [place] % (Auto) Lymph # (Auto) Seg Neutrophils % Seg Neuts % (Manual) Lymphocytes % (Manual) Seg Neutrophils # Seg Neutrophils # Man D-Dimer ABG pH ABG pO2 ABG HCO3 ABG O2 Saturation ABG Base Excess ABG Hemoglobin Oxyhemoglobin Sodium Chloride Carbon Dioxide BUN Creatinine Glucose POC Glucose 376 H 322 H 231 H Calcium Ferritin AST Lactate Dehydrogenase C-Reactive Protein Total Protein Albumin Coronavirus (PCR) 01/22/21 01/22/21 01/22/21 05:24 08:25 08:25 WBC RBC 5.44 H Hgb MCV 75 L MCH 23 L RDW 15.5 H Plt Count Lymph % (Auto) [place] % (Auto) Lymph # (Auto) Seg Neutrophils % Seg Neuts % (Manual) Lymphocytes % (Manual) Seg Neutrophils # Seg Neutrophils # Man D-Dimer ABG pH ABG pO2 ABG HCO3 ABG O2 Saturation ABG Base Excess ABG Hemoglobin Oxyhemoglobin Sodium 155 H Chloride 112.4 H Carbon Dioxide BUN 33 H Creatinine Glucose 274 H POC Glucose 275 H Calcium Ferritin AST Lactate Dehydrogenase C-Reactive Protein Total Protein Albumin Coronavirus (PCR) 01/22/21 01/22/21 01/22/21 11:53 16:03 21:41 WBC RBC Hgb MCV MCH RDW Plt Count Lymph % (Auto) [place] % (Auto) Lymph # (Auto) Seg Neutrophils % Seg Neuts % (Manual) Lymphocytes % (Manual) Seg Neutrophils # Seg Neutrophils # Man D-Dimer ABG pH ABG pO2 ABG HCO3 ABG O2 Saturation ABG Base Excess ABG Hemoglobin Oxyhemoglobin Sodium Chloride Carbon Dioxide BUN Creatinine Glucose POC Glucose 265 H 293 H 279 H Calcium Ferritin AST Lactate Dehydrogenase C-Reactive Protein Total Protein Albumin Coronavirus (PCR) 01/23/21 01/23/21 01/23/21 02:03 05:46 05:59 WBC RBC Hgb MCV MCH RDW Plt Count Lymph % (Auto) [place] % (Auto) Lymph # (Auto) Seg Neutrophils % Seg Neuts % (Manual) Lymphocytes % (Manual) Seg Neutrophils # Seg Neutrophils # Man D-Dimer ABG pH ABG pO2 ABG HCO3 ABG O2 Saturation ABG Base Excess ABG Hemoglobin Oxyhemoglobin Sodium Chloride Carbon Dioxide BUN Creatinine Glucose POC Glucose 268 H 303 H Calcium Ferritin 1116.0 H AST Lactate Dehydrogenase C-Reactive Protein Total Protein Albumin Coronavirus (PCR) 01/23/21 01/23/21 01/23/21 05:59 07:42 09:11 WBC RBC Hgb MCV MCH RDW Plt Count Lymph % (Auto) [place] % (Auto) Lymph # (Auto) Seg Neutrophils % Seg Neuts % (Manual) Lymphocytes % (Manual) Seg Neutrophils # Seg Neutrophils # Man D-Dimer ABG pH ABG pO2 ABG HCO3 ABG O2 Saturation ABG Base Excess ABG Hemoglobin Oxyhemoglobin Sodium Chloride Carbon Dioxide BUN Creatinine Glucose POC Glucose 291 H 285 H Calcium Ferritin AST Lactate Dehydrogenase 680 H C-Reactive Protein 5.80 H Total Protein Albumin Coronavirus (PCR) 01/23/21 01/23/21 01/23/21 14:06 17:05 17:59 WBC RBC Hgb MCV MCH RDW Plt Count Lymph % (Auto) [place] % (Auto) Lymph # (Auto) Seg Neutrophils % Seg Neuts % (Manual) Lymphocytes % (Manual) Seg Neutrophils # Seg Neutrophils # Man D-Dimer ABG pH ABG pO2 ABG HCO3 ABG O2 Saturation ABG Base Excess ABG Hemoglobin Oxyhemoglobin Sodium Chloride Carbon Dioxide BUN Creatinine Glucose POC Glucose 228 H 300 H 278 H Calcium Ferritin AST Lactate Dehydrogenase C-Reactive Protein Total Protein Albumin Coronavirus (PCR) 01/23/21 01/24/2101/24/21 21:43 02:14 05:15 WBC RBC Hgb MCV MCH RDW Plt Count Lymph % (Auto) [place] % (Auto) Lymph # (Auto) Seg Neutrophils % Seg Neuts % (Manual) Lymphocytes % (Manual) Seg Neutrophils # Seg Neutrophils # Man D-Dimer ABG pH ABG pO2 ABG HCO3 ABG O2 Saturation ABG Base Excess ABG Hemoglobin Oxyhemoglobin Sodium Chloride Carbon Dioxide BUN Creatinine Glucose POC Glucose 223 H 427 H 392 H Calcium Ferritin AST Lactate Dehydrogenase C-Reactive Protein Total Protein Albumin Coronavirus (PCR) 01/24/21 01/24/21 01/24/21 07:03 07:03 09:10 WBC RBC 5.49 H Hgb MCV 75 L MCH 23 L RDW Plt Count Lymph % (Auto) 7.0 L [place] % (Auto) Lymph # (Auto) 0.5 L Seg Neutrophils % 86.1 H Seg Neuts % (Manual) Lymphocytes % (Manual) Seg Neutrophils # Seg Neutrophils # Man D-Dimer ABG pH ABG pO2 ABG HCO3 ABG O2 Saturation ABG Base Excess ABG Hemoglobin Oxyhemoglobin Sodium 149 H Chloride 111.4 H Carbon Dioxide BUN 24 H Creatinine Glucose 339 H POC Glucose 284 H Calcium Ferritin AST Lactate Dehydrogenase C-Reactive Protein Total Protein Albumin Coronavirus (PCR) 01/24/21 01/24/21 01/24/21 13:47 18:30 21:58 WBC RBC Hgb MCV MCH RDW Plt Count Lymph % (Auto) [place] % (Auto) Lymph # (Auto) Seg Neutrophils % Seg Neuts % (Manual) Lymphocytes % (Manual) Seg Neutrophils # Seg Neutrophils # Man D-Dimer ABG pH ABG pO2 ABG HCO3 ABG O2 Saturation ABG Base Excess ABG Hemoglobin Oxyhemoglobin Sodium Chloride Carbon Dioxide BUN Creatinine Glucose POC Glucose 317 H 180 H 262 H Calcium Ferritin AST Lactate Dehydrogenase C-Reactive Protein Total Protein Albumin Coronavirus (PCR) 01/25/21 01/25/21 01/25/21 01:22 05:35 08:36 WBC RBC Hgb MCV MCH RDW Plt Count Lymph % (Auto) [place] % (Auto) Lymph # (Auto) Seg Neutrophils % Seg Neuts % (Manual) Lymphocytes % (Manual) Seg Neutrophils # Seg Neutrophils # Man D-Dimer ABG pH ABG pO2 ABG HCO3 ABG O2 Saturation ABG Base Excess ABG Hemoglobin Oxyhemoglobin Sodium Chloride Carbon Dioxide BUN Creatinine Glucose POC Glucose 280 H 243 H 216 H Calcium Ferritin AST Lactate Dehydrogenase C-Reactive Protein Total Protein Albumin Coronavirus (PCR) 01/25/21 01/25/21 01/25/21 15:14 15:14 15:14 WBC RBC Hgb MCV MCH RDW Plt Count Lymph % (Auto) [place] % (Auto) Lymph # (Auto) Seg Neutrophils % Seg Neuts % (Manual) Lymphocytes % (Manual) Seg Neutrophils # Seg Neutrophils # Man D-Dimer 6312.54 H ABG pH ABG pO2 ABG HCO3 ABG O2 Saturation ABG Base Excess ABG Hemoglobin Oxyhemoglobin Sodium 146 H Chloride 108.1 H Carbon Dioxide BUN 19 H Creatinine Glucose 287 H POC Glucose Calcium 8.3 L Ferritin 869.5 H AST Lactate Dehydrogenase 685 H C-Reactive Protein Total Protein Albumin Coronavirus (PCR) 01/25/21 01/25/21 01/26/21 16:06 21:18 01:47 WBC RBC Hgb MCV MCH RDW Plt Count Lymph % (Auto) [place] % (Auto) Lymph # (Auto) Seg Neutrophils % Seg Neuts % (Manual) Lymphocytes % (Manual) Seg Neutrophils # Seg Neutrophils # Man D-Dimer ABG pH ABG pO2 ABG HCO3 ABG O2 Saturation ABG Base Excess ABG Hemoglobin Oxyhemoglobin Sodium Chloride Carbon Dioxide BUN Creatinine Glucose POC Glucose 267 H 197 H 255 H Calcium Ferritin AST Lactate Dehydrogenase C-Reactive Protein Total Protein Albumin Coronavirus (PCR) 01/26/21 01/26/21 01/26/21 05:23 05:23 05:23 WBC RBC Hgb MCV MCH RDW Plt Count Lymph % (Auto) [place] % (Auto) Lymph # (Auto) Seg Neutrophils % Seg Neuts % (Manual) Lymphocytes % (Manual) Seg Neutrophils # Seg Neutrophils # Man D-Dimer 5809.58 H ABG pH ABG pO2 ABG HCO3 ABG O2 Saturation ABG Base Excess ABG Hemoglobin Oxyhemoglobin Sodium 149 H Chloride 109.3 H Carbon Dioxide BUN 24 H Creatinine Glucose 362 H POC Glucose Calcium Ferritin 877.1 H AST Lactate Dehydrogenase 655 H C-Reactive Protein Total Protein Albumin Coronavirus (PCR) 01/26/21 01/26/21 01/26/21 05:23 06:06 09:28 WBC RBC 5.49 H Hgb MCV 77 L MCH 23 L RDW Plt Count Lymph % (Auto) [place] % (Auto) Lymph # (Auto) 0.8 L Seg Neutrophils % 78.9 H Seg Neuts % (Manual) Lymphocytes % (Manual) Seg Neutrophils # Seg Neutrophils # Man D-Dimer ABG pH ABG pO2 ABG HCO3 ABG O2 Saturation ABG Base Excess ABG Hemoglobin Oxyhemoglobin Sodium Chloride Carbon Dioxide BUN Creatinine Glucose POC Glucose 387 H 308 H Calcium Ferritin AST Lactate Dehydrogenase C-Reactive Protein Total Protein Albumin Coronavirus (PCR) 01/26/21 01/26/21 01/27/21 15:56 21:28 02:51 WBC RBC Hgb MCV MCH RDW Plt Count Lymph % (Auto) [place] % (Auto) Lymph # (Auto) Seg Neutrophils % Seg Neuts % (Manual) Lymphocytes % (Manual) Seg Neutrophils # Seg Neutrophils # Man D-Dimer ABG pH ABG pO2 ABG HCO3 ABG O2 Saturation ABG Base Excess ABG Hemoglobin Oxyhemoglobin Sodium Chloride Carbon Dioxide BUN Creatinine Glucose POC Glucose 172 H 316 H 267 H Calcium Ferritin AST Lactate Dehydrogenase C-Reactive Protein Total Protein Albumin Coronavirus (PCR) 01/27/21 01/27/21 01/27/21 04:22 04:22 04:22 WBC RBC Hgb MCV MCH RDW Plt Count Lymph % (Auto) [place] % (Auto) Lymph # (Auto) Seg Neutrophils % Seg Neuts % (Manual) Lymphocytes % (Manual) Seg Neutrophils # Seg Neutrophils # Man D-Dimer 4046.06 H ABG pH ABG pO2 ABG HCO3 ABG O2 Saturation ABG Base Excess ABG Hemoglobin Oxyhemoglobin Sodium Chloride 107.7 H Carbon Dioxide BUN 30 H Creatinine Glucose 281 H POC Glucose Calcium Ferritin 812.2 H AST Lactate Dehydrogenase 570 H C-Reactive Protein Total Protein Albumin Coronavirus (PCR) 01/27/21 01/27/21 01/27/21 04:22 05:55 12:00 WBC RBC 5.15 H Hgb MCV 76 L MCH 23 L RDW 15.5 H Plt Count Lymph % (Auto) 12.7 L [place] % (Auto) Lymph # (Auto) 0.9 L Seg Neutrophils % 81.3 H Seg Neuts % (Manual) Lymphocytes % (Manual) Seg Neutrophils # Seg Neutrophils # Man D-Dimer ABG pH ABG pO2 ABG HCO3 ABG O2 Saturation ABG Base Excess ABG Hemoglobin Oxyhemoglobin Sodium Chloride Carbon Dioxide BUN Creatinine Glucose POC Glucose 275 H 121 H Calcium Ferritin AST Lactate Dehydrogenase C-Reactive Protein Total Protein Albumin Coronavirus (PCR) 01/27/21 01/27/21 01/28/21 17:32 21:23 02:08 WBC RBC Hgb MCV MCH RDW Plt Count Lymph % (Auto) [place] % (Auto) Lymph # (Auto) Seg Neutrophils % Seg Neuts % (Manual) Lymphocytes % (Manual) Seg Neutrophils # Seg Neutrophils # Man D-Dimer ABG pH ABG pO2 ABG HCO3 ABG O2 Saturation ABG Base Excess ABG Hemoglobin Oxyhemoglobin Sodium Chloride Carbon Dioxide BUN Creatinine Glucose POC Glucose 195 H 179 H 210 H Calcium Ferritin AST Lactate Dehydrogenase C-Reactive Protein Total Protein Albumin Coronavirus (PCR) 01/28/21 01/28/21 01/28/21 05:09 08:44 08:46 WBC RBC Hgb MCV MCH RDW Plt Count Lymph % (Auto) [place] % (Auto) Lymph # (Auto) Seg Neutrophils % Seg Neuts % (Manual) Lymphocytes % (Manual) Seg Neutrophils # Seg Neutrophils # Man D-Dimer 1884.49 H ABG pH ABG pO2 ABG HCO3 ABG O2 Saturation ABG Base Excess ABG Hemoglobin Oxyhemoglobin Sodium Chloride Carbon Dioxide BUN Creatinine Glucose POC Glucose 202 H 191 H Calcium Ferritin AST Lactate Dehydrogenase C-Reactive Protein Total Protein Albumin Coronavirus (PCR) 01/28/21 01/28/21 01/28/21 08:46 08:46 12:18 WBC RBC Hgb MCV MCH RDW Plt Count Lymph % (Auto) [place] % (Auto) Lymph # (Auto) Seg Neutrophils % Seg Neuts % (Manual) Lymphocytes % (Manual) Seg Neutrophils # Seg Neutrophils # Man D-Dimer ABG pH ABG pO2 ABG HCO3 ABG O2 Saturation ABG Base Excess ABG Hemoglobin Oxyhemoglobin Sodium Chloride Carbon Dioxide BUN Creatinine Glucose POC Glucose 221 H Calcium Ferritin 797.7 H AST Lactate Dehydrogenase 556 H C-Reactive Protein Total Protein Albumin Coronavirus (PCR) 01/28/21 01/28/21 01/29/21 18:21 21:45 01:48 WBC RBC Hgb MCV MCH RDW Plt Count Lymph % (Auto) [place] % (Auto) Lymph # (Auto) Seg Neutrophils % Seg Neuts % (Manual) Lymphocytes % (Manual) Seg Neutrophils # Seg Neutrophils # Man D-Dimer ABG pH ABG pO2 ABG HCO3 ABG O2 Saturation ABG Base Excess ABG Hemoglobin Oxyhemoglobin Sodium Chloride Carbon Dioxide BUN Creatinine Glucose POC Glucose 214 H 148 H 248 H Calcium Ferritin AST Lactate Dehydrogenase C-Reactive Protein Total Protein Albumin Coronavirus (PCR) 01/29/21 01/29/21 01/29/21 05:17 10:17 11:39 WBC RBC Hgb MCV MCH RDW Plt Count Lymph % (Auto) [place] % (Auto) Lymph # (Auto) Seg Neutrophils % Seg Neuts % (Manual) Lymphocytes % (Manual) Seg Neutrophils # Seg Neutrophils # Man D-Dimer ABG pH ABG pO2 ABG HCO3 ABG O2 Saturation ABG Base Excess ABG Hemoglobin Oxyhemoglobin Sodium Chloride Carbon Dioxide BUN Creatinine Glucose POC Glucose 256 H 193 H 177 H Calcium Ferritin AST Lactate Dehydrogenase C-Reactive Protein Total Protein Albumin Coronavirus (PCR) 01/29/21 01/29/21 01/30/21 18:06 20:24 06:07 WBC RBC Hgb MCV MCH RDW Plt Count Lymph % (Auto) [place] % (Auto) Lymph # (Auto) Seg Neutrophils % Seg Neuts % (Manual) Lymphocytes % (Manual) Seg Neutrophils # Seg Neutrophils # Man D-Dimer ABG pH ABG pO2 ABG HCO3 ABG O2 Saturation ABG Base Excess ABG Hemoglobin Oxyhemoglobin Sodium Chloride Carbon Dioxide BUN Creatinine Glucose POC Glucose 107 H 114 H 114 H Calcium Ferritin AST Lactate Dehydrogenase C-Reactive Protein Total Protein Albumin Coronavirus (PCR) 01/30/21 01/30/21 01/30/21 12:08 16:11 21:19 WBC RBC Hgb MCV MCH RDW Plt Count Lymph % (Auto) [place] % (Auto) Lymph # (Auto) Seg Neutrophils % Seg Neuts % (Manual) Lymphocytes % (Manual) Seg Neutrophils # Seg Neutrophils # Man D-Dimer ABG pH ABG pO2 ABG HCO3 ABG O2 Saturation ABG Base Excess ABG Hemoglobin Oxyhemoglobin Sodium Chloride Carbon Dioxide BUN Creatinine Glucose POC Glucose 178 H 142 H 244 H Calcium Ferritin AST Lactate Dehydrogenase C-Reactive Protein Total Protein Albumin Coronavirus (PCR) 01/31/21 01/31/21 01/31/21 05:30 06:42 07:50 WBC RBC Hgb MCV MCH RDW Plt Count Lymph % (Auto) [place] % (Auto) Lymph # (Auto) Seg Neutrophils % Seg Neuts % (Manual) Lymphocytes % (Manual) Seg Neutrophils # Seg Neutrophils # Man D-Dimer ABG pH ABG pO2 ABG HCO3 ABG O2 Saturation ABG Base Excess ABG Hemoglobin Oxyhemoglobin Sodium Chloride Carbon Dioxide BUN 20 H Creatinine Glucose 160 H POC Glucose 164 H 152 H Calcium 8.0 L Ferritin AST Lactate Dehydrogenase C-Reactive Protein Total Protein Albumin Coronavirus (PCR) 01/31/21 01/31/21 01/31/21 11:40 16:37 21:01 WBC RBC Hgb MCV MCH RDW Plt Count Lymph % (Auto) [place] % (Auto) Lymph # (Auto) Seg Neutrophils % Seg Neuts % (Manual) Lymphocytes % (Manual) Seg Neutrophils # Seg Neutrophils # Man D-Dimer ABG pH ABG pO2 ABG HCO3 ABG O2 Saturation ABG Base Excess ABG Hemoglobin Oxyhemoglobin Sodium Chloride Carbon Dioxide BUN Creatinine Glucose POC Glucose 129 H 141 H 125 H Calcium Ferritin AST Lactate Dehydrogenase C-Reactive Protein Total Protein Albumin Coronavirus (PCR) 02/01/21 02/01/21 02/01/21 06:26 11:15 16:11 WBC RBC Hgb MCV MCH RDW Plt Count Lymph % (Auto) [place] % (Auto) Lymph # (Auto) Seg Neutrophils % Seg Neuts % (Manual) Lymphocytes % (Manual) Seg Neutrophils # Seg Neutrophils # Man D-Dimer ABG pH ABG pO2 ABG HCO3 ABG O2 Saturation ABG Base Excess ABG Hemoglobin Oxyhemoglobin Sodium Chloride Carbon Dioxide BUN Creatinine Glucose POC Glucose 136 H 260 H 240 H Calcium Ferritin AST Lactate Dehydrogenase C-Reactive Protein Total Protein Albumin Coronavirus (PCR) 02/01/21 02/02/21 02/02/21 22:32 07:15 07:56 WBC 3.1 L RBC Hgb MCV 75 L MCH 23 L RDW Plt Count Lymph % (Auto) 44.9 H [place] % (Auto) 9.2 H Lymph # (Auto) Seg Neutrophils % Seg Neuts % (Manual) Lymphocytes % (Manual) Seg Neutrophils # 1.3 L Seg Neutrophils # Man D-Dimer ABG pH ABG pO2 ABG HCO3 ABG O2 Saturation ABG Base Excess ABG Hemoglobin Oxyhemoglobin Sodium Chloride Carbon Dioxide BUN Creatinine Glucose POC Glucose 298 H 164 H Calcium Ferritin AST Lactate Dehydrogenase C-Reactive Protein Total Protein Albumin Coronavirus (PCR) 02/02/21 02/02/21 02/02/21 07:56 11:35 16:07 WBC RBC Hgb MCV MCH RDW Plt Count Lymph % (Auto) [place] % (Auto) Lymph # (Auto) Seg Neutrophils % Seg Neuts % (Manual) Lymphocytes % (Manual) Seg Neutrophils # Seg Neutrophils # Man D-Dimer ABG pH ABG pO2 ABG HCO3 ABG O2 Saturation ABG Base Excess ABG Hemoglobin Oxyhemoglobin Sodium Chloride Carbon Dioxide 31 H BUN Creatinine 0.4 L Glucose 159 H POC Glucose 297 H 252 H Calcium 8.2 L Ferritin AST Lactate Dehydrogenase C-Reactive Protein Total Protein Albumin Coronavirus (PCR) 02/02/21 02/03/21 02/03/21 22:33 17:04 22:17 WBC RBC Hgb MCV MCH RDW Plt Count Lymph % (Auto) [place] % (Auto) Lymph # (Auto) Seg Neutrophils % Seg Neuts % (Manual) Lymphocytes % (Manual) Seg Neutrophils # Seg Neutrophils # Man D-Dimer ABG pH ABG pO2 ABG HCO3 ABG O2 Saturation ABG Base Excess ABG Hemoglobin Oxyhemoglobin Sodium Chloride Carbon Dioxide BUN Creatinine Glucose POC Glucose 257 H 247 H 278 H Calcium Ferritin AST Lactate Dehydrogenase C-Reactive Protein Total Protein Albumin Coronavirus (PCR) 02/04/21 02/04/21 02/04/21 05:41 07:55 11:56 WBC RBC Hgb MCV MCH RDW Plt Count Lymph % (Auto) [place] % (Auto) Lymph # (Auto) Seg Neutrophils % Seg Neuts % (Manual) Lymphocytes % (Manual) Seg Neutrophils # Seg Neutrophils # Man D-Dimer ABG pH ABG pO2 ABG HCO3 ABG O2 Saturation ABG Base Excess ABG Hemoglobin Oxyhemoglobin Sodium Chloride Carbon Dioxide 31 H BUN 19 H Creatinine 0.5 L Glucose 184 H POC Glucose 182 H 227 H Calcium Ferritin AST Lactate Dehydrogenase C-Reactive Protein Total Protein Albumin Coronavirus (PCR) 02/04/21 02/04/21 02/04/21 12:45 14:52 16:45 WBC 4.0 L RBC Hgb MCV 77 L MCH 24 L RDW 15.5 H Plt Count Lymph % (Auto) [place] % (Auto) Lymph # (Auto) Seg Neutrophils % Seg Neuts % (Manual) Lymphocytes % (Manual) Seg Neutrophils # Seg Neutrophils # Man D-Dimer ABG pH ABG pO2 65.6 L ABG HCO3 30.8 H ABG O2 Saturation 94.0 L ABG Base Excess 5.5 H ABG Hemoglobin 10.3 L Oxyhemoglobin 92.3 L Sodium Chloride Carbon Dioxide BUN Creatinine Glucose POC Glucose 194 H Calcium Ferritin AST Lactate Dehydrogenase C-Reactive Protein Total Protein Albumin Coronavirus (PCR) 02/04/21 02/05/21 02/05/21 22:00 06:55 07:49 WBC RBC Hgb 10.0 L MCV MCH RDW Plt Count Lymph % (Auto) [place] % (Auto) Lymph # (Auto) Seg Neutrophils % Seg Neuts % (Manual) Lymphocytes % (Manual) Seg Neutrophils # Seg Neutrophils # Man D-Dimer ABG pH ABG pO2 ABG HCO3 ABG O2 Saturation ABG Base Excess ABG Hemoglobin Oxyhemoglobin Sodium Chloride Carbon Dioxide BUN Creatinine Glucose POC Glucose 281 H 204 H Calcium Ferritin AST Lactate Dehydrogenase C-Reactive Protein Total Protein Albumin Coronavirus (PCR) 02/05/21 02/05/21 02/05/21 11:23 16:13 16:22 WBC RBC Hgb 10.0 L MCV MCH RDW Plt Count Lymph % (Auto) [place] % (Auto) Lymph # (Auto) Seg Neutrophils % Seg Neuts % (Manual) Lymphocytes % (Manual) Seg Neutrophils # Seg Neutrophils # Man D-Dimer ABG pH ABG pO2 ABG HCO3 ABG O2 Saturation ABG Base Excess ABG Hemoglobin Oxyhemoglobin Sodium Chloride Carbon Dioxide BUN Creatinine Glucose POC Glucose 264 H 202 H Calcium Ferritin AST Lactate Dehydrogenase C-Reactive Protein Total Protein Albumin Coronavirus (PCR) 02/05/21 02/06/21 02/06/21 21:14 04:43 04:43 WBC 4.0 L RBC Hgb 10.0 L MCV 76 L MCH 23 L RDW 15.7 H Plt Count Lymph % (Auto) [place] % (Auto) Lymph # (Auto) Seg Neutrophils % Seg Neuts % (Manual) Lymphocytes % (Manual) Seg Neutrophils # Seg Neutrophils # Man D-Dimer ABG pH ABG pO2 ABG HCO3 ABG O2 Saturation ABG Base Excess ABG Hemoglobin Oxyhemoglobin Sodium Chloride Carbon Dioxide 32 H BUN Creatinine 0.4 L Glucose 163 H POC Glucose 180 H Calcium 8.3 L Ferritin AST Lactate Dehydrogenase C-Reactive Protein Total Protein Albumin Coronavirus (PCR) 02/06/21 02/06/21 02/06/21 08:01 11:44 16:11 WBC RBC Hgb MCV MCH RDW Plt Count Lymph % (Auto) [place] % (Auto) Lymph # (Auto) Seg Neutrophils % Seg Neuts % (Manual) Lymphocytes % (Manual) Seg Neutrophils # Seg Neutrophils # Man D-Dimer ABG pH ABG pO2 ABG HCO3 ABG O2 Saturation ABG Base Excess ABG Hemoglobin Oxyhemoglobin Sodium Chloride Carbon Dioxide BUN Creatinine Glucose POC Glucose 155 H 215 H 247 H Calcium Ferritin AST Lactate Dehydrogenase C-Reactive Protein Total Protein Albumin Coronavirus (PCR) 02/06/21 02/07/21 02/07/21 23:40 08:01 11:54 WBC RBC Hgb MCV MCH RDW Plt Count Lymph % (Auto) [place] % (Auto) Lymph # (Auto) Seg Neutrophils % Seg Neuts % (Manual) Lymphocytes % (Manual) Seg Neutrophils # Seg Neutrophils # Man D-Dimer ABG pH ABG pO2 ABG HCO3 ABG O2 Saturation ABG Base Excess ABG Hemoglobin Oxyhemoglobin Sodium Chloride Carbon Dioxide BUN Creatinine Glucose POC Glucose 267 H 233 H 227 H Calcium Ferritin AST Lactate Dehydrogenase C-Reactive Protein Total Protein Albumin Coronavirus (PCR) 02/07/21 02/07/21 02/07/21 15:48 20:58 20:58 WBC RBC Hgb MCV MCH RDW Plt Count Lymph % (Auto) [place] % (Auto) Lymph # (Auto) Seg Neutrophils % Seg Neuts % (Manual) Lymphocytes % (Manual) Seg Neutrophils # Seg Neutrophils # Man D-Dimer ABG pH ABG pO2 ABG HCO3 ABG O2 Saturation ABG Base Excess ABG Hemoglobin Oxyhemoglobin Sodium Chloride Carbon Dioxide 32 H BUN Creatinine 0.5 L 0.5 L Glucose 236 H POC Glucose 257 H Calcium 8.3 L Ferritin AST Lactate Dehydrogenase C-Reactive Protein Total Protein Albumin Coronavirus (PCR) 02/07/21 02/08/21 02/08/21 22:10 04:46 04:46 WBC 4.2 L RBC Hgb 9.7 L MCV 78 L MCH 24 L RDW 17.9 H Plt Count 110 L Lymph % (Auto) [place] % (Auto) Lymph # (Auto) Seg Neutrophils % Seg Neuts % (Manual) Lymphocytes % (Manual) Seg Neutrophils # Seg Neutrophils # Man D-Dimer ABG pH ABG pO2 ABG HCO3 ABG O2 Saturation ABG Base Excess ABG Hemoglobin Oxyhemoglobin Sodium Chloride Carbon Dioxide BUN Creatinine 0.4 L Glucose 220 H POC Glucose 241 H Calcium 8.0 L Ferritin AST Lactate Dehydrogenase C-Reactive Protein Total Protein Albumin Coronavirus (PCR) 02/08/21 02/08/21 02/08/21 08:05 11:36 15:44 WBC RBC Hgb MCV MCH RDW Plt Count Lymph % (Auto) [place] % (Auto) Lymph # (Auto) Seg Neutrophils % Seg Neuts % (Manual) Lymphocytes % (Manual) Seg Neutrophils # Seg Neutrophils # Man D-Dimer ABG pH ABG pO2 ABG HCO3 ABG O2 Saturation ABG Base Excess ABG Hemoglobin Oxyhemoglobin Sodium Chloride Carbon Dioxide BUN Creatinine Glucose POC Glucose 208 H 200 H 149 H Calcium Ferritin AST Lactate Dehydrogenase C-Reactive Protein Total Protein Albumin Coronavirus (PCR) 02/08/21 02/09/21 02/09/21 21:35 04:24 07:39 WBC RBC Hgb MCV MCH RDW Plt Count Lymph % (Auto) [place] % (Auto) Lymph # (Auto) Seg Neutrophils % Seg Neuts % (Manual) Lymphocytes % (Manual) Seg Neutrophils # Seg Neutrophils # Man D-Dimer ABG pH ABG pO2 ABG HCO3 ABG O2 Saturation ABG Base Excess ABG Hemoglobin Oxyhemoglobin Sodium Chloride Carbon Dioxide BUN Creatinine 0.4 L Glucose 205 H POC Glucose 249 H 205 H Calcium 8.1 L Ferritin AST Lactate Dehydrogenase C-Reactive Protein Total Protein Albumin Coronavirus (PCR) 02/09/21 02/09/21 02/09/21 11:53 16:52 21:26 WBC RBC Hgb MCV MCH RDW Plt Count Lymph % (Auto) [place] % (Auto) Lymph # (Auto) Seg Neutrophils % Seg Neuts % (Manual) Lymphocytes % (Manual) Seg Neutrophils # Seg Neutrophils # Man D-Dimer ABG pH ABG pO2 ABG HCO3 ABG O2 Saturation ABG Base Excess ABG Hemoglobin Oxyhemoglobin Sodium Chloride Carbon Dioxide BUN Creatinine Glucose POC Glucose 303 H 164 H 257 H Calcium Ferritin AST Lactate Dehydrogenase C-Reactive Protein Total Protein Albumin Coronavirus (PCR) 02/10/21 02/10/21 02/10/21 09:30 09:38 11:45 WBC RBC Hgb MCV MCH RDW Plt Count Lymph % (Auto) [place] % (Auto) Lymph # (Auto) Seg Neutrophils % Seg Neuts % (Manual) Lymphocytes % (Manual) Seg Neutrophils # Seg Neutrophils # Man D-Dimer ABG pH 7.309 L ABG pO2 71.2 L ABG HCO3 29.1 H ABG O2 Saturation 92.4 L ABG Base Excess ABG Hemoglobin 11.2 L Oxyhemoglobin 90.2 L Sodium Chloride Carbon Dioxide BUN Creatinine Glucose POC Glucose 240 H 257 H Calcium Ferritin AST Lactate Dehydrogenase C-Reactive Protein Total Protein Albumin Coronavirus (PCR) 02/10/21 02/10/21 02/11/21 17:12 21:26 04:50 WBC RBC Hgb MCV 78 L MCH 24 L RDW 20.3 H Plt Count 133 L Lymph % (Auto) [place] % (Auto) Lymph # (Auto) Seg Neutrophils % Seg Neuts % (Manual) Lymphocytes % (Manual) Seg Neutrophils # Seg Neutrophils # Man D-Dimer ABG pH ABG pO2 ABG HCO3 ABG O2 Saturation ABG Base Excess ABG Hemoglobin Oxyhemoglobin Sodium Chloride Carbon Dioxide BUN Creatinine Glucose POC Glucose 178 H 362 H Calcium Ferritin AST Lactate Dehydrogenase C-Reactive Protein Total Protein Albumin Coronavirus (PCR) 02/11/21 02/11/21 02/11/21 08:02 11:52 17:14 WBC RBC Hgb MCV MCH RDW Plt Count Lymph % (Auto) [place] % (Auto) Lymph # (Auto) Seg Neutrophils % Seg Neuts % (Manual) Lymphocytes % (Manual) Seg Neutrophils # Seg Neutrophils # Man D-Dimer ABG pH ABG pO2 ABG HCO3 ABG O2 Saturation ABG Base Excess ABG Hemoglobin Oxyhemoglobin Sodium Chloride Carbon Dioxide BUN Creatinine Glucose POC Glucose 263 H 433 H 212 H Calcium Ferritin AST Lactate Dehydrogenase C-Reactive Protein Total Protein Albumin Coronavirus (PCR) 02/11/21 02/12/21 02/12/21 21:39 08:24 11:21 WBC RBC Hgb MCV MCH RDW Plt Count Lymph % (Auto) [place] % (Auto) Lymph # (Auto) Seg Neutrophils % Seg Neuts % (Manual) Lymphocytes % (Manual) Seg Neutrophils # Seg Neutrophils # Man D-Dimer ABG pH ABG pO2 ABG HCO3 ABG O2 Saturation ABG Base Excess ABG Hemoglobin Oxyhemoglobin Sodium Chloride Carbon Dioxide BUN Creatinine Glucose POC Glucose 248 H 295 H 403 H Calcium Ferritin AST Lactate Dehydrogenase C-Reactive Protein Total Protein Albumin Coronavirus (PCR) 02/12/21 02/13/21 02/13/21 16:29 07:32 12:19 WBC RBC Hgb MCV MCH RDW Plt Count Lymph % (Auto) [place] % (Auto) Lymph # (Auto) Seg Neutrophils % Seg Neuts % (Manual) Lymphocytes % (Manual) Seg Neutrophils # Seg Neutrophils # Man D-Dimer ABG pH ABG pO2 ABG HCO3 ABG O2 Saturation ABG Base Excess ABG Hemoglobin Oxyhemoglobin Sodium Chloride Carbon Dioxide BUN Creatinine Glucose POC Glucose 238 H 299 H 357 H Calcium Ferritin AST Lactate Dehydrogenase C-Reactive Protein Total Protein Albumin Coronavirus (PCR) 02/13/21 02/13/21 02/14/21 16:28 21:45 07:44 WBC RBC Hgb MCV MCH RDW Plt Count Lymph % (Auto) [place] % (Auto) Lymph # (Auto) Seg Neutrophils % Seg Neuts % (Manual) Lymphocytes % (Manual) Seg Neutrophils # Seg Neutrophils # Man D-Dimer ABG pH ABG pO2 ABG HCO3 ABG O2 Saturation ABG Base Excess ABG Hemoglobin Oxyhemoglobin Sodium Chloride Carbon Dioxide BUN Creatinine Glucose POC Glucose 270 H 346 H 234 H Calcium Ferritin AST Lactate Dehydrogenase C-Reactive Protein Total Protein Albumin Coronavirus (PCR) 02/14/21 02/14/21 02/14/21 11:12 16:40 21:27 WBC RBC Hgb MCV MCH RDW Plt Count Lymph % (Auto) [place] % (Auto) Lymph # (Auto) Seg Neutrophils % Seg Neuts % (Manual) Lymphocytes % (Manual) Seg Neutrophils # Seg Neutrophils # Man D-Dimer ABG pH ABG pO2 ABG HCO3 ABG O2 Saturation ABG Base Excess ABG Hemoglobin Oxyhemoglobin Sodium Chloride Carbon Dioxide BUN Creatinine Glucose POC Glucose 294 H 116 H 159 H Calcium Ferritin AST Lactate Dehydrogenase C-Reactive Protein Total Protein Albumin Coronavirus (PCR) 02/15/21 02/15/21 02/15/21 07:58 11:41 16:41 WBC RBC Hgb MCV MCH RDW Plt Count Lymph % (Auto) [place] % (Auto) Lymph # (Auto) Seg Neutrophils % Seg Neuts % (Manual) Lymphocytes % (Manual) Seg Neutrophils # Seg Neutrophils # Man D-Dimer ABG pH ABG pO2 ABG HCO3 ABG O2 Saturation ABG Base Excess ABG Hemoglobin Oxyhemoglobin Sodium Chloride Carbon Dioxide BUN Creatinine Glucose POC Glucose 225 H 325 H 148 H Calcium Ferritin AST Lactate Dehydrogenase C-Reactive Protein Total Protein Albumin Coronavirus (PCR) 02/15/21 02/16/21 02/16/21 22:29 07:55 11:02 WBC RBC Hgb MCV MCH RDW Plt Count Lymph % (Auto) [place] % (Auto) Lymph # (Auto) Seg Neutrophils % Seg Neuts % (Manual) Lymphocytes % (Manual) Seg Neutrophils # Seg Neutrophils # Man D-Dimer ABG pH ABG pO2 ABG HCO3 ABG O2 Saturation ABG Base Excess ABG Hemoglobin Oxyhemoglobin Sodium Chloride Carbon Dioxide BUN Creatinine Glucose POC Glucose 239 H 138 H 337 H Calcium Ferritin AST Lactate Dehydrogenase C-Reactive Protein Total Protein Albumin Coronavirus (PCR) 02/16/21 02/16/21 02/17/21 16:41 21:46 06:53 WBC RBC Hgb MCV 78 L MCH 24 L RDW 18.9 H Plt Count Lymph % (Auto) [place] % (Auto) Lymph # (Auto) Seg Neutrophils % Seg Neuts % (Manual) Lymphocytes % (Manual) Seg Neutrophils # Seg Neutrophils # Man D-Dimer ABG pH ABG pO2 ABG HCO3 ABG O2 Saturation ABG Base Excess ABG Hemoglobin Oxyhemoglobin Sodium Chloride Carbon Dioxide BUN Creatinine Glucose POC Glucose 138 H 286 H Calcium Ferritin AST Lactate Dehydrogenase C-Reactive Protein Total Protein Albumin Coronavirus (PCR) 02/17/21 02/17/21 02/17/21 06:53 07:37 11:12 WBC RBC Hgb MCV MCH RDW Plt Count Lymph % (Auto) [place] % (Auto) Lymph # (Auto) Seg Neutrophils % Seg Neuts % (Manual) Lymphocytes % (Manual) Seg Neutrophils # Seg Neutrophils # Man D-Dimer ABG pH ABG pO2 ABG HCO3 ABG O2 Saturation ABG Base Excess ABG Hemoglobin Oxyhemoglobin Sodium Chloride Carbon Dioxide 31 H BUN 20 H Creatinine 0.4 L Glucose 238 H POC Glucose 251 H 221 H Calcium Ferritin AST Lactate Dehydrogenase C-Reactive Protein Total Protein Albumin Coronavirus (PCR) 02/17/21 02/17/21 02/18/21 16:36 21:21 08:01 WBC RBC Hgb MCV MCH RDW Plt Count Lymph % (Auto) [place] % (Auto) Lymph # (Auto) Seg Neutrophils % Seg Neuts % (Manual) Lymphocytes % (Manual) Seg Neutrophils # Seg Neutrophils # Man D-Dimer ABG pH ABG pO2 ABG HCO3 ABG O2 Saturation ABG Base Excess ABG Hemoglobin Oxyhemoglobin Sodium Chloride Carbon Dioxide BUN Creatinine Glucose POC Glucose 213 H 185 H 280 H Calcium Ferritin AST Lactate Dehydrogenase C-Reactive Protein Total Protein Albumin Coronavirus (PCR) 02/18/21 02/18/21 02/18/21 11:55 15:33 21:48 WBC RBC Hgb MCV MCH RDW Plt Count Lymph % (Auto) [place] % (Auto) Lymph # (Auto) Seg Neutrophils % Seg Neuts % (Manual) Lymphocytes % (Manual) Seg Neutrophils # Seg Neutrophils # Man D-Dimer ABG pH ABG pO2 ABG HCO3 ABG O2 Saturation ABG Base Excess ABG Hemoglobin Oxyhemoglobin Sodium Chloride Carbon Dioxide BUN Creatinine Glucose POC Glucose 303 H 276 H 288 H Calcium Ferritin AST Lactate Dehydrogenase C-Reactive Protein Total Protein Albumin Coronavirus (PCR) 02/19/21 02/19/21 02/19/21 08:22 12:05 17:18 WBC RBC Hgb MCV MCH RDW Plt Count Lymph % (Auto) [place] % (Auto) Lymph # (Auto) Seg Neutrophils % Seg Neuts % (Manual) Lymphocytes % (Manual) Seg Neutrophils # Seg Neutrophils # Man D-Dimer ABG pH ABG pO2 ABG HCO3 ABG O2 Saturation ABG Base Excess ABG Hemoglobin Oxyhemoglobin Sodium Chloride Carbon Dioxide BUN Creatinine Glucose POC Glucose 247 H 274 H 135 H Calcium Ferritin AST Lactate Dehydrogenase C-Reactive Protein Total Protein Albumin Coronavirus (PCR) 02/19/21 02/20/21 02/20/21 21:11 08:00 10:54 WBC RBC Hgb MCV 78 L MCH 24 L RDW 18.4 H Plt Count Lymph % (Auto) 6.6 L [place] % (Auto) Lymph # (Auto) 0.5 L Seg Neutrophils % 89.2 H Seg Neuts % (Manual) Lymphocytes % (Manual) Seg Neutrophils # Seg Neutrophils # Man D-Dimer ABG pH ABG pO2 ABG HCO3 ABG O2 Saturation ABG Base Excess ABG Hemoglobin Oxyhemoglobin Sodium Chloride Carbon Dioxide BUN Creatinine Glucose POC Glucose 341 H 238 H Calcium Ferritin AST Lactate Dehydrogenase C-Reactive Protein Total Protein Albumin Coronavirus (PCR) 02/20/21 02/20/21 02/20/21 10:54 11:16 17:27 WBC RBC Hgb MCV MCH RDW Plt Count Lymph % (Auto) [place] % (Auto) Lymph # (Auto) Seg Neutrophils % Seg Neuts % (Manual) Lymphocytes % (Manual) Seg Neutrophils # Seg Neutrophils # Man D-Dimer ABG pH ABG pO2 ABG HCO3 ABG O2 Saturation ABG Base Excess ABG Hemoglobin Oxyhemoglobin Sodium Chloride 97.8 L Carbon Dioxide BUN 22 H Creatinine 0.5 L Glucose 297 H POC Glucose 305 H 256 H Calcium Ferritin AST Lactate Dehydrogenase C-Reactive Protein Total Protein Albumin Coronavirus (PCR) 02/20/21 02/21/21 02/21/21 21:06 07:36 12:16 WBC RBC Hgb MCV MCH RDW Plt Count Lymph % (Auto) [place] % (Auto) Lymph # (Auto) Seg Neutrophils % Seg Neuts % (Manual) Lymphocytes % (Manual) Seg Neutrophils # Seg Neutrophils # Man D-Dimer ABG pH ABG pO2 ABG HCO3 ABG O2 Saturation ABG Base Excess ABG Hemoglobin Oxyhemoglobin Sodium Chloride Carbon Dioxide BUN Creatinine Glucose POC Glucose 235 H 357 H 229 H Calcium Ferritin AST Lactate Dehydrogenase C-Reactive Protein Total Protein Albumin Coronavirus (PCR) 02/21/21 02/21/21 02/22/21 17:13 21:48 07:43 WBC RBC Hgb MCV MCH RDW Plt Count Lymph % (Auto) [place] % (Auto) Lymph # (Auto) Seg Neutrophils % Seg Neuts % (Manual) Lymphocytes % (Manual) Seg Neutrophils # Seg Neutrophils # Man D-Dimer ABG pH ABG pO2 ABG HCO3 ABG O2 Saturation ABG Base Excess ABG Hemoglobin Oxyhemoglobin Sodium Chloride Carbon Dioxide BUN Creatinine Glucose POC Glucose 289 H 333 H 250 H Calcium Ferritin AST Lactate Dehydrogenase C-Reactive Protein Total Protein Albumin Coronavirus (PCR) 02/22/21 02/22/21 02/22/21 11:10 18:42 22:40 WBC RBC Hgb MCV MCH RDW Plt Count Lymph % (Auto) [place] % (Auto) Lymph # (Auto) Seg Neutrophils % Seg Neuts % (Manual) Lymphocytes % (Manual) Seg Neutrophils # Seg Neutrophils # Man D-Dimer ABG pH ABG pO2 ABG HCO3 ABG O2 Saturation ABG Base Excess ABG Hemoglobin Oxyhemoglobin Sodium Chloride Carbon Dioxide BUN Creatinine Glucose POC Glucose 243 H 283 H 329 H Calcium Ferritin AST Lactate Dehydrogenase C-Reactive Protein Total Protein Albumin Coronavirus (PCR) 02/23/21 07:54 WBC RBC Hgb MCV MCH RDW Plt Count Lymph % (Auto) [place] % (Auto) Lymph # (Auto) Seg Neutrophils % Seg Neuts % (Manual) Lymphocytes % (Manual) Seg Neutrophils # Seg Neutrophils # Man D-Dimer ABG pH ABG pO2 ABG HCO3 ABG O2 Saturation ABG Base Excess ABG Hemoglobin Oxyhemoglobin Sodium Chloride Carbon Dioxide BUN Creatinine Glucose POC Glucose 205 H Calcium Ferritin AST Lactate Dehydrogenase C-Reactive Protein Total Protein Albumin Coronavirus (PCR)
[2021-02-24] MEDS: INSULIN LISPRO 100 UNIT/ML SUB-Q SCH ×5 (00:04→21:50)
[2021-02-24] MEDS: APIXABAN 2.5 MG TAB PO SCH ×4 (00:04→22:04)
[2021-02-24] MEDS: ASCORBIC ACID 500 MG TAB PO SCH ×3 (00:05→21:51)
[2021-02-24] MEDS: FAMOTIDINE 20 MG TAB PO SCH ×3 (00:05→21:51)
[2021-02-24] MEDS: INSULIN GLARGINE 100 UNITS/ML SUB-Q SCH ×2 (00:05→21:50)
[2021-02-24] MEDS: METOPROLOL TARTRATE 25 MG TAB PO SCH ×4 (00:05→22:03)
[2021-02-24] MEDS: MIRTAZAPINE 15 MG TAB PO SCH ×3 (00:05→22:04)
--- NOTE | 2021-02-24 08:41 | Progress Note ---
Assessment and Plan 55 y/o female admitted with acute respiratory failure secondary to pneumonia, positive for Sars CoV2 02/24/21: Prednisone taper at discharge. Appears to qualify for Home O2 if she will wear it. Would feel more comfortable with discharge on 3 liters or less. 02/21/21: Continue wean. Patient was not on oxygen prior to admit. However 3 liters is stable for discharge if patient qualifies. Can follow up in the office in the next 10-14 days once discharged. 02/20/21: Lasix again today patient is doing very well with this. would recommend checking a chemistry to make sure potassium and renal function are still ok. Continue aggressive weaning of HFNC. Close to a point where we can start weaning steroids. 02/19/21: Lasix 40mg IV again today. Patient is tolerating well. No weaning of steroids just yet but almost off HFNC. Once off, can start to wean. Still would send out referrals to LTACH just in case. Will Continue to follow with you. Continue to wean for sats >88% 02/18/21: Lasix 40mg IV x1 today. Continue to wean FiO2 for sats >88%. Suggest asking CM if patient would be a good LTACH candidate. Continue steroids for now. Will continue to follow. 02/17/21: Lasix again today. Will start to wean steroids once on lower liter flow of oxygen. Not concerned about elevated bicarb on chemistry and does not need diamox therapy at this time. Will continue to follow. 02/16/21: Lasix again today. Sats improving and oxygen requirement is coming down. Continue steroids. Last chemistry was several days ago. Will check again in am. may need BID lasix. 02/15/21: Lasix today. Continue current dose of steroids. Prone if possible. 02/14/21: lasix again today. Prone if possible. Continue steroids. Guarded Prognosis 02/13/21: ordered more lasix for today. Monitor strict I/O. Prone if patient w ill allow. Continue steroids. 02/12/18: continue lasix therapy daily. Prone if possible. Guarded prognosis. continue steroids 02/11/21: IMS has ordered lasix daily for 3 days, will continue to monitor. May need to give an additional dose later tonight. Long discussion at bedside this am about he importance of wearing bipap at night and what that means to her overall health. Will discuss with family too. Overall prognosis is very guarded. Will do our best to not intubate this patient given her morbid obesity as this would increase her mortality rate tremendously. Please continue to document refusal of therapy when appropriate. 02/10/21: Lasix today, 40 IV. Will attempt precedex to see if this will help with mental state and cooperation in care. Will also restart steroids but use solumedrol 40q8 dosing. May need to consider adding back the Haldol PRN as well. Guarded prognosis. Will attempt our best to not intubate this patient as her mortality would be extremely high if intubated given her morbid obesity. 02/02/21: Lasix again today. Patient refuses to prone. Guarded prognosis. 02/01/21: Will give another 40 of lasix today. Will speak with RT about being more aggressive with weaning of oxygen. Prone if possible. 01/31/21: Increased lasix to 40 today. Prone if possible. 01/30/21: Lasix 20mg IV today. Continue Antipsychotic therapy management. Prone as tolerated if patient willing. 01/29/21: Will give lasix again today. Will change Haldol to IM since patient is refusing PO meds. 01/28/21: Will give lasix again today. Continue all other therapies. Prone if patient will and tolerate. STeroids. Guarded prognosis. 01/20/21: Gave Haldol 5 and patient has calmed down and become more appropriate, allowing us to place bipap back on. COntinue steroids and remdesivir therapy. Doubt patient will be able to prone successfully. Will try lasix today again to see if this helps. Very very guarded prognosis. 01/19/21: Continue decadron, suggest increase given patient body habitus to BID. ID consult for Remdesivir therapy and to see if she is a candidate for Actemra. Prone as tolerated during the day and sleep prone at night. Will give lasix a gain today. Guarded prognosis. 1. Prone 2. Lasix 3. Agree with steroids 4. Follow up COVID testing Guarded prognosis Subjective Date of service: 02/24/21 Principal diagnosis: Covid-19 Interval history: No acute events. Refused all medications on yesterday. Objective Constitutional: no acute distress, alert Eyes: non-icteric ENT: oropharynx moist Neck: supple, other (large in circumference) Effort: normal Ascultation: Bilateral: clear, diminished breath sounds Cardiovascular: other (tachy, RR; no mrg) Gastrointestinal: normoactive bowel sounds, soft, non-tender, non-distended Integumentary: normal Extremities: no cyanosis, no edema, pink and warm Neurologic: normal mental status, non-focal exam, pupils equal and round Psychiatric: mood appropriate, affect normal CBC and BMP: 02/20/21 10:54 02/20/21 10:54 ABG, PT/INR, D-dimer: ABG ABG pH 7.309 pH Units (7.350-7.450) L 02/10/21 09:30 ABG pCO2 59.4 mm Hg 02/10/21 09:30 ABG pO2 71.2 mm Hg (80.0-90.0) L 02/10/21 09:30 ABG O2 Saturation 92.4 % (95.0-99.0) L 02/10/21 09:30 PT/INR, D-dimer PT 13.6 Sec. (12.2-14.9) 02/04/21 14:52 INR 1.06 (0.87-1.13) 02/04/21 14:52 D-Dimer 1884.49 ng/mlDDU (0-234) H 01/28/21 08:46 Abnormal lab findings: Abnormal Labs 01/17/21 01/17/21 01/17/21 09:25 16:41 16:41 WBC RBC 5.23 H Hgb MCV 76 L MCH 24 L RDW Plt Count Lymph % (Auto) 9.4 L [place] % (Auto) Lymph # (Auto) 0.8 L Seg Neutrophils % 85.4 H Seg Neuts % (Manual) Lymphocytes % (Manual) Seg Neutrophils # Seg Neutrophils # Man D-Dimer ABG pH ABG pO2 ABG HCO3 ABG O2 Saturation ABG Base Excess ABG Hemoglobin Oxyhemoglobin Sodium 128 L Chloride 90.8 L Carbon Dioxide BUN Creatinine Glucose 372 H POC Glucose Calcium Ferritin AST 98 H Lactate Dehydrogenase C-Reactive Protein Total Protein Albumin 3.2 L Coronavirus (PCR) Positive A 01/17/21 01/17/21 01/17/21 17:46 17:46 17:46 WBC RBC Hgb MCV MCH RDW Plt Count Lymph % (Auto) [place] % (Auto) Lymph # (Auto) Seg Neutrophils % Seg Neuts % (Manual) Lymphocytes % (Manual) Seg Neutrophils # Seg Neutrophils # Man D-Dimer 1058.54 H ABG pH ABG pO2 ABG HCO3 ABG O2 Saturation ABG Base Excess ABG Hemoglobin Oxyhemoglobin Sodium Chloride Carbon Dioxide BUN Creatinine Glucose 369 H POC Glucose Calcium Ferritin 668.4 H AST Lactate Dehydrogenase 519 H C-Reactive Protein 19.20 H Total Protein Albumin Coronavirus (PCR) 01/18/21 01/18/21 01/19/21 09:01 17:18 05:11 WBC 14.2 H RBC Hgb MCV 74 L MCH 23 L RDW Plt Count Lymph % (Auto) [place] % (Auto) Lymph # (Auto) Seg Neutrophils % Seg Neuts % (Manual) 88.0 H Lymphocytes % (Manual) 10.0 L Seg Neutrophils # Seg Neutrophils # Man 12.5 H D-Dimer ABG pH 7.461 H ABG pO2 53.1 L ABG HCO3 ABG O2 Saturation 89.4 L ABG Base Excess ABG Hemoglobin Oxyhemoglobin 88.0 L Sodium 132 L Chloride 93.6 L Carbon Dioxide BUN 18 H Creatinine Glucose 367 H POC Glucose Calcium 7.8 L Ferritin AST Lactate Dehydrogenase C-Reactive Protein Total Protein Albumin Coronavirus (PCR) 01/19/21 01/19/21 01/19/21 05:11 11:06 14:43 WBC RBC Hgb MCV MCH RDW Plt Count Lymph % (Auto) [place] % (Auto) Lymph # (Auto) Seg Neutrophils % Seg Neuts % (Manual) Lymphocytes % (Manual) Seg Neutrophils # Seg Neutrophils # Man D-Dimer ABG pH ABG pO2 ABG HCO3 ABG O2 Saturation ABG Base Excess ABG Hemoglobin Oxyhemoglobin Sodium Chloride Carbon Dioxide BUN 18 H Creatinine Glucose 304 H 379 H POC Glucose 382 H Calcium 8.3 L Ferritin AST 92 H 96 H Lactate Dehydrogenase C-Reactive Protein Total Protein Albumin 3.0 L 3.0 L Coronavirus (PCR) 01/19/21 01/19/21 01/20/21 16:18 22:18 07:31 WBC RBC Hgb MCV MCH RDW Plt Count Lymph % (Auto) [place] % (Auto) Lymph # (Auto) Seg Neutrophils % Seg Neuts % (Manual) Lymphocytes % (Manual) Seg Neutrophils # Seg Neutrophils # Man D-Dimer ABG pH ABG pO2 ABG HCO3 ABG O2 Saturation ABG Base Excess ABG Hemoglobin Oxyhemoglobin Sodium Chloride Carbon Dioxide BUN Creatinine Glucose POC Glucose 374 H 341 H 344 H Calcium Ferritin AST Lactate Dehydrogenase C-Reactive Protein Total Protein Albumin Coronavirus (PCR) 01/20/21 01/20/21 01/20/21 07:33 12:14 13:54 WBC RBC Hgb MCV MCH RDW Plt Count Lymph % (Auto) [place] % (Auto) Lymph # (Auto) Seg Neutrophils % Seg Neuts % (Manual) Lymphocytes % (Manual) Seg Neutrophils # Seg Neutrophils # Man D-Dimer ABG pH ABG pO2 ABG HCO3 ABG O2 Saturation ABG Base Excess ABG Hemoglobin Oxyhemoglobin Sodium Chloride Carbon Dioxide BUN 32 H 31 H Creatinine Glucose 343 H 396 H POC Glucose 365 H Calcium Ferritin AST 57 H 54 H Lactate Dehydrogenase C-Reactive Protein Total Protein 8.3 H Albumin 2.7 L 3.1 L Coronavirus (PCR) 01/20/21 01/20/21 01/21/21 18:28 21:25 04:45 WBC RBC Hgb MCV MCH RDW Plt Count Lymph % (Auto) [place] % (Auto) Lymph # (Auto) Seg Neutrophils % Seg Neuts % (Manual) Lymphocytes % (Manual) Seg Neutrophils # Seg Neutrophils # Man D-Dimer ABG pH ABG pO2 ABG HCO3 ABG O2 Saturation ABG Base Excess ABG Hemoglobin Oxyhemoglobin Sodium Chloride Carbon Dioxide 31 H BUN 41 H Creatinine Glucose 377 H POC Glucose 403 H 340 H Calcium Ferritin AST Lactate Dehydrogenase C-Reactive Protein Total Protein 8.3 H Albumin 3.0 L Coronavirus (PCR) 01/21/21 01/21/21 01/21/21 04:45 04:45 04:45 WBC RBC Hgb MCV MCH RDW Plt Count Lymph % (Auto) [place] % (Auto) Lymph # (Auto) Seg Neutrophils % Seg Neuts % (Manual) Lymphocytes % (Manual) Seg Neutrophils # Seg Neutrophils # Man D-Dimer > 78949 H ABG pH ABG pO2 ABG HCO3 ABG O2 Saturation ABG Base Excess ABG Hemoglobin Oxyhemoglobin Sodium Chloride Carbon Dioxide BUN Creatinine Glucose POC Glucose Calcium Ferritin 1688.0 H AST Lactate Dehydrogenase 649 H C-Reactive Protein 17.00 H Total Protein Albumin Coronavirus (PCR) 04/01/21/21 01/21/21 09:45 11:29 12:09 WBC RBC Hgb MCV MCH RDW Plt Count Lymph % (Auto) [place] % (Auto) Lymph # (Auto) Seg Neutrophils % Seg Neuts % (Manual) Lymphocytes % (Manual) Seg Neutrophils # Seg Neutrophils # Man D-Dimer ABG pH ABG pO2 ABG HCO3 ABG O2 Saturation ABG Base Excess ABG Hemoglobin Oxyhemoglobin Sodium 151 H Chloride Carbon Dioxide BUN 40 H Creatinine Glucose 412 H POC Glucose 401 H 372 H Calcium Ferritin AST Lactate Dehydrogenase C-Reactive Protein Total Protein Albumin 3.4 L Coronavirus (PCR) 01/21/21 01/21/21 01/22/21 18:26 21:09 02:00 WBC RBC Hgb MCV MCH RDW Plt Count Lymph % (Auto) [place] % (Auto) Lymph # (Auto) Seg Neutrophils % Seg Neuts % (Manual) Lymphocytes % (Manual) Seg Neutrophils # Seg Neutrophils # Man D-Dimer ABG pH ABG pO2 ABG HCO3 ABG O2 Saturation ABG Base Excess ABG Hemoglobin Oxyhemoglobin Sodium Chloride Carbon Dioxide BUN Creatinine Glucose POC Glucose 376 H 322 H 231 H Calcium Ferritin AST Lactate Dehydrogenase C-Reactive Protein Total Protein Albumin Coronavirus (PCR) 01/22/21 01/22/21 01/22/21 05:24 08:25 08:25 WBC RBC 5.44 H Hgb MCV 75 L MCH 23 L RDW 15.5 H Plt Count Lymph % (Auto) [place] % (Auto) Lymph # (Auto) Seg Neutrophils % Seg Neuts % (Manual) Lymphocytes % (Manual) Seg Neutrophils # Seg Neutrophils # Man D-Dimer ABG pH ABG pO2 ABG HCO3 ABG O2 Saturation ABG Base Excess ABG Hemoglobin Oxyhemoglobin Sodium 155 H Chloride 112.4 H Carbon Dioxide BUN 33 H Creatinine Glucose 274 H POC Glucose 275 H Calcium Ferritin AST Lactate Dehydrogenase C-Reactive Protein Total Protein Albumin Coronavirus (PCR) 01/22/21 01/22/21 01/22/21 11:53 16:03 21:41 WBC RBC Hgb MCV MCH RDW Plt Count Lymph % (Auto) [place] % (Auto) Lymph # (Auto) Seg Neutrophils % Seg Neuts % (Manual) Lymphocytes % (Manual) Seg Neutrophils # Seg Neutrophils # Man D-Dimer ABG pH ABG pO2 ABG HCO3 ABG O2 Saturation ABG Base Excess ABG Hemoglobin Oxyhemoglobin Sodium Chloride Carbon Dioxide BUN Creatinine Glucose POC Glucose 265 H 293 H 279 H Calcium Ferritin AST Lactate Dehydrogenase C-Reactive Protein Total Protein Albumin Coronavirus (PCR) 01/23/21 01/23/21 01/23/21 02:03 05:46 05:59 WBC RBC Hgb MCV MCH RDW Plt Count Lymph % (Auto) [place] % (Auto) Lymph # (Auto) Seg Neutrophils % Seg Neuts % (Manual) Lymphocytes % (Manual) Seg Neutrophils # Seg Neutrophils # Man D-Dimer ABG pH ABG pO2 ABG HCO3 ABG O2 Saturation ABG Base Excess ABG Hemoglobin Oxyhemoglobin Sodium Chloride Carbon Dioxide BUN Creatinine Glucose POC Glucose 268 H 303 H Calcium Ferritin 1116.0 H AST Lactate Dehydrogenase C-Reactive Protein Total Protein Albumin Coronavirus (PCR) 01/23/21 01/23/21 01/23/21 05:59 07:42 09:11 WBC RBC Hgb MCV MCH RDW Plt Count Lymph % (Auto) [place] % (Auto) Lymph # (Auto) Seg Neutrophils % Seg Neuts % (Manual) Lymphocytes % (Manual) Seg Neutrophils # Seg Neutrophils # Man D-Dimer ABG pH ABG pO2 ABG HCO3 ABG O2 Saturation ABG Base Excess ABG Hemoglobin Oxyhemoglobin Sodium Chloride Carbon Dioxide BUN Creatinine Glucose POC Glucose 291 H 285 H Calcium Ferritin AST Lactate Dehydrogenase 680 H C-Reactive Protein 5.80 H Total Protein Albumin Coronavirus (PCR) 01/23/21 01/23/21 01/23/21 14:06 17:05 17:59 WBC RBC Hgb MCV MCH RDW Plt Count Lymph % (Auto) [place] % (Auto) Lymph # (Auto) Seg Neutrophils % Seg Neuts % (Manual) Lymphocytes % (Manual) Seg Neutrophils # Seg Neutrophils # Man D-Dimer ABG pH ABG pO2 ABG HCO3 ABG O2 Saturation ABG Base Excess ABG Hemoglobin Oxyhemoglobin Sodium Chloride Carbon Dioxide BUN Creatinine Glucose POC Glucose 228 H 300 H 278 H Calcium Ferritin AST Lactate Dehydrogenase C-Reactive Protein Total Protein Albumin Coronavirus (PCR) 01/23/21 01/24/21 01/24/21 21:43 02:14 05:15 WBC RBC Hgb MCV MCH RDW Plt Count Lymph % (Auto) [place] % (Auto) Lymph # (Auto) Seg Neutrophils % Seg Neuts % (Manual) Lymphocytes % (Manual) Seg Neutrophils # Seg Neutrophils # Man D-Dimer ABG pH ABG pO2 ABG HCO3 ABG O2 Saturation ABG Base Excess ABG Hemoglobin Oxyhemoglobin Sodium Chloride Carbon Dioxide BUN Creatinine Glucose POC Glucose 223 H 427 H 392 H Calcium Ferritin AST Lactate Dehydrogenase C-Reactive Protein Total Protein Albumin Coronavirus (PCR) 01/24/21 01/24/21 01/24/21 07:03 07:03 09:10 WBC RBC 5.49 H Hgb MCV 75 L MCH 23 L RDW Plt Count Lymph % (Auto) 7.0 L [place] % (Auto) Lymph # (Auto) 0.5 L Seg Neutrophils % 86.1 H Seg Neuts % (Manual) Lymphocytes % (Manual) Seg Neutrophils # Seg Neutrophils # Man D-Dimer ABG pH ABG pO2 ABG HCO3 ABG O2 Saturation ABG Base Excess ABG Hemoglobin Oxyhemoglobin Sodium 149 H Chloride 111.4 H Carbon Dioxide BUN 24 H Creatinine Glucose 339 H POC Glucose 284 H Calcium Ferritin AST Lactate Dehydrogenase C-Reactive Protein Total Protein Albumin Coronavirus (PCR) 01/24/21 01/24/21 01/24/21 13:47 18:30 21:58 WBC RBC Hgb MCV MCH RDW Plt Count Lymph % (Auto) [place] % (Auto) Lymph # (Auto) Seg Neutrophils % Seg Neuts % (Manual) Lymphocytes % (Manual) Seg Neutrophils # Seg Neutrophils # Man D-Dimer ABG pH ABG pO2 ABG HCO3 ABG O2 Saturation ABG Base Excess ABG Hemoglobin Oxyhemoglobin Sodium Chloride Carbon Dioxide BUN Creatinine Glucose POC Glucose 317 H 180 H 262 H Calcium Ferritin AST Lactate Dehydrogenase C-Reactive Protein Total Protein Albumin Coronavirus (PCR) 01/25/21 01/25/21 01/25/21 01:22 05:35 08:36 WBC RBC Hgb MCV MCH RDW Plt Count Lymph % (Auto) [place] % (Auto) Lymph # (Auto) Seg Neutrophils % Seg Neuts % (Manual) Lymphocytes % (Manual) Seg Neutrophils # Seg Neutrophils # Man D-Dimer ABG pH ABG pO2 ABG HCO3 ABG O2 Saturation ABG Base Excess ABG Hemoglobin Oxyhemoglobin Sodium Chloride Carbon Dioxide BUN Creatinine Glucose POC Glucose 280 H 243 H 216 H Calcium Ferritin AST Lactate Dehydrogenase C-Reactive Protein Total Protein Albumin Coronavirus (PCR) 01/25/21 01/25/21 01/25/21 15:14 15:14 15:14 WBC RBC Hgb MCV MCH RDW Plt Count Lymph % (Auto) [place] % (Auto) Lymph # (Auto) Seg Neutrophils % Seg Neuts % (Manual) Lymphocytes % (Manual) Seg Neutrophils # Seg Neutrophils # Man D-Dimer 6312.54 H ABG pH ABG pO2 ABG HCO3 ABG O2 Saturation ABG Base Excess ABG Hemoglobin Oxyhemoglobin Sodium 146 H Chloride 108.1 H Carbon Dioxide BUN 19 H Creatinine Glucose 287 H POC Glucose Calcium 8.3 L Ferritin 869.5 H AST Lactate Dehydrogenase 685 H C-Reactive Protein Total Protein Albumin Coronavirus (PCR) 01/25/21 01/25/21 01/26/21 16:06 21:18 01:47 WBC RBC Hgb MCV MCH RDW Plt Count Lymph % (Auto) [place] % (Auto) Lymph # (Auto) Seg Neutrophils % Seg Neuts % (Manual) Lymphocytes % (Manual) Seg Neutrophils # Seg Neutrophils # Man D-Dimer ABG pH ABG pO2 ABG HCO3 ABG O2 Saturation ABG Base Excess ABG Hemoglobin Oxyhemoglobin Sodium Chloride Carbon Dioxide BUN Creatinine Glucose POC Glucose 267 H 197 H 255 H Calcium Ferritin AST Lactate Dehydrogenase C-Reactive Protein Total Protein Albumin Coronavirus (PCR) 01/26/21 01/26/21 01/26/21 05:23 05:23 05:23 WBC RBC Hgb MCV MCH RDW Plt Count Lymph % (Auto) [place] % (Auto) Lymph # (Auto) Seg Neutrophils % Seg Neuts % (Manual) Lymphocytes % (Manual) Seg Neutrophils # Seg Neutrophils # Man D-Dimer 5809.58 H ABG pH ABG pO2 ABG HCO3 ABG O2 Saturation ABG Base Excess ABG Hemoglobin Oxyhemoglobin Sodium 149 H Chloride 109.3 H Carbon Dioxide BUN 24 H Creatinine Glucose 362 H POC Glucose Calcium Ferritin 877.1 H AST Lactate Dehydrogenase 655 H C-Reactive Protein Total Protein Albumin Coronavirus (PCR) 01/26/21 01/26/21 01/26/21 05:23 06:06 09:28 WBC RBC 5.49 H Hgb MCV 77 L MCH 23 L RDW Plt Count Lymph % (Auto) [place] % (Auto) Lymph # (Auto) 0.8 L Seg Neutrophils % 78.9 H Seg Neuts % (Manual) Lymphocytes % (Manual) Seg Neutrophils # Seg Neutrophils # Man D-Dimer ABG pH ABG pO2 ABG HCO3 ABG O2 Saturation ABG Base Excess ABG Hemoglobin Oxyhemoglobin Sodium Chloride Carbon Dioxide BUN Creatinine Glucose POC Glucose 387 H 308 H Calcium Ferritin AST Lactate Dehydrogenase C-Reactive Protein Total Protein Albumin Coronavirus (PCR) 01/26/21 01/26/21 01/27/21 15:56 21:28 02:51 WBC RBC Hgb MCV MCH RDW Plt Count Lymph % (Auto) [place] % (Auto) Lymph # (Auto) Seg Neutrophils % Seg Neuts % (Manual) Lymphocytes % (Manual) Seg Neutrophils # Seg Neutrophils # Man D-Dimer ABG pH ABG pO2 ABG HCO3 ABG O2 Saturation ABG Base Excess ABG Hemoglobin Oxyhemoglobin Sodium Chloride Carbon Dioxide BUN Creatinine Glucose POC Glucose 172 H 316 H 267 H Calcium Ferritin AST Lactate Dehydrogenase C-Reactive Protein Total Protein Albumin Coronavirus (PCR) 01/27/21 01/27/21 01/27/21 04:22 04:22 04:22 WBC RBC Hgb MCV MCH RDW Plt Count Lymph % (Auto) [place] % (Auto) Lymph # (Auto) Seg Neutrophils % Seg Neuts % (Manual) Lymphocytes % (Manual) Seg Neutrophils # Seg Neutrophils # Man D-Dimer 4046.06 H ABG pH ABG pO2 ABG HCO3 ABG O2 Saturation ABG Base Excess ABG Hemoglobin Oxyhemoglobin Sodium Chloride 107.7 H Carbon Dioxide BUN 30 H Creatinine Glucose 281 H POC Glucose Calcium Ferritin 812.2 H AST Lactate Dehydrogenase 570 H C-Reactive Protein Total Protein Albumin Coronavirus (PCR) 01/27/21 01/27/21 01/27/21 04:22 05:55 12:00 WBC RBC 5.15 H Hgb MCV 76 L MCH 23 L RDW 15.5 H Plt Count Lymph % (Auto) 12.7 L [place] % (Auto) Lymph # (Auto) 0.9 L Seg Neutrophils % 81.3 H Seg Neuts % (Manual) Lymphocytes % (Manual) Seg Neutrophils # Seg Neutrophils # Man D-Dimer ABG pH ABG pO2 ABG HCO3 ABG O2 Saturation ABG Base Excess ABG Hemoglobin Oxyhemoglobin Sodium Chloride Carbon Dioxide BUN Creatinine Glucose POC Glucose 275 H 121 H Calcium Ferritin AST Lactate Dehydrogenase C-Reactive Protein Total Protein Albumin Coronavirus (PCR) 01/27/21 01/27/21 01/28/21 17:32 21:23 02:08 WBC RBC Hgb MCV MCH RDW Plt Count Lymph % (Auto) [place] % (Auto) Lymph # (Auto) Seg Neutrophils % Seg Neuts % (Manual) Lymphocytes % (Manual) Seg Neutrophils # Seg Neutrophils # Man D-Dimer ABG pH ABG pO2 ABG HCO3 ABG O2 Saturation ABG Base Excess ABG Hemoglobin Oxyhemoglobin Sodium Chloride Carbon Dioxide BUN Creatinine Glucose POC Glucose 195 H 179 H 210 H Calcium Ferritin AST Lactate Dehydrogenase C-Reactive Protein Total Protein Albumin Coronavirus (PCR) 01/28/21 01/28/21 01/28/21 05:09 08:44 08:46 WBC RBC Hgb MCV MCH RDW Plt Count Lymph % (Auto) [place] % (Auto) Lymph # (Auto) Seg Neutrophils % Seg Neuts % (Manual) Lymphocytes % (Manual) Seg Neutrophils # Seg Neutrophils # Man D-Dimer 1884.49 H ABG pH ABG pO2 ABG HCO3 ABG O2 Saturation ABG Base Excess ABG Hemoglobin Oxyhemoglobin Sodium Chloride Carbon Dioxide BUN Creatinine Glucose POC Glucose 202 H 191 H Calcium Ferritin AST Lactate Dehydrogenase C-Reactive Protein Total Protein Albumin Coronavirus (PCR) 01/28/21 01/28/21 01/28/21 08:46 08:46 12:18 WBC RBC Hgb MCV MCH RDW Plt Count Lymph % (Auto) [place] % (Auto) Lymph # (Auto) Seg Neutrophils % Seg Neuts % (Manual) Lymphocytes % (Manual) Seg Neutrophils # Seg Neutrophils # Man D-Dimer ABG pH ABG pO2 ABG HCO3 ABG O2 Saturation ABG Base Excess ABG Hemoglobin Oxyhemoglobin Sodium Chloride Carbon Dioxide BUN Creatinine Glucose POC Glucose 221 H Calcium Ferritin 797.7 H AST Lactate Dehydrogenase 556 H C-Reactive Protein Total Protein Albumin Coronavirus (PCR) 01/28/21 01/28/21 01/29/21 18:21 21:45 01:48 WBC RBC Hgb MCV MCH RDW Plt Count Lymph % (Auto) [place] % (Auto) Lymph # (Auto) Seg Neutrophils % Seg Neuts % (Manual) Lymphocytes % (Manual) Seg Neutrophils # Seg Neutrophils # Man D-Dimer ABG pH ABG pO2 ABG HCO3 ABG O2 Saturation ABG Base Excess ABG Hemoglobin Oxyhemoglobin Sodium Chloride Carbon Dioxide BUN Creatinine Glucose POC Glucose 214 H 148 H 248 H Calcium Ferritin AST Lactate Dehydrogenase C-Reactive Protein Total Protein Albumin Coronavirus (PCR) 01/29/21 01/29/21 01/29/21 05:17 10:17 11:39 WBC RBC Hgb MCV MCH RDW Plt Count Lymph % (Auto) [place] % (Auto) Lymph # (Auto) Seg Neutrophils % Seg Neuts % (Manual) Lymphocytes % (Manual) Seg Neutrophils # Seg Neutrophils # Man D-Dimer ABG pH ABG pO2 ABG HCO3 ABG O2 Saturation ABG Base Excess ABG Hemoglobin Oxyhemoglobin Sodium Chloride Carbon Dioxide BUN Creatinine Glucose POC Glucose 256 H 193 H 177 H Calcium Ferritin AST Lactate Dehydrogenase C-Reactive Protein Total Protein Albumin Coronavirus (PCR) 01/29/21 01/29/21 01/30/21 18:06 20:24 06:07 WBC RBC Hgb MCV MCH RDW Plt Count Lymph % (Auto) [place] % (Auto) Lymph # (Auto) Seg Neutrophils % Seg Neuts % (Manual) Lymphocytes % (Manual) Seg Neutrophils # Seg Neutrophils # Man D-Dimer ABG pH ABG pO2 ABG HCO3 ABG O2 Saturation ABG Base Excess ABG Hemoglobin Oxyhemoglobin Sodium Chloride Carbon Dioxide BUN Creatinine Glucose POC Glucose 107 H 114 H 114 H Calcium Ferritin AST Lactate Dehydrogenase C-Reactive Protein Total Protein Albumin Coronavirus (PCR) 01/30/21 01/30/21 01/30/21 12:08 16:11 21:19 WBC RBC Hgb MCV MCH RDW Plt Count Lymph % (Auto) [place] % (Auto) Lymph # (Auto) Seg Neutrophils % Seg Neuts % (Manual) Lymphocytes % (Manual) Seg Neutrophils # Seg Neutrophils # Man D-Dimer ABG pH ABG pO2 ABG HCO3 ABG O2 Saturation ABG Base Excess ABG Hemoglobin Oxyhemoglobin Sodium Chloride Carbon Dioxide BUN Creatinine Glucose POC Glucose 178 H 142 H 244 H Calcium Ferritin AST Lactate Dehydrogenase C-Reactive Protein Total Protein Albumin Coronavirus (PCR) 01/31/21 01/31/21 01/31/21 05:30 06:42 07:50 WBC RBC Hgb MCV MCH RDW Plt Count Lymph % (Auto) [place] % (Auto) Lymph # (Auto) Seg Neutrophils % Seg Neuts % (Manual) Lymphocytes % (Manual) Seg Neutrophils # Seg Neutrophils # Man D-Dimer ABG pH ABG pO2 ABG HCO3 ABG O2 Saturation ABG Base Excess ABG Hemoglobin Oxyhemoglobin Sodium Chloride Carbon Dioxide BUN 20 H Creatinine Glucose 160 H POC Glucose 164 H 152 H Calcium 8.0 L Ferritin AST Lactate Dehydrogenase C-Reactive Protein Total Protein Albumin Coronavirus (PCR) 01/31/21 01/31/21 01/31/21 11:40 16:37 21:01 WBC RBC Hgb MCV MCH RDW Plt Count Lymph % (Auto) [place] % (Auto) Lymph # (Auto) Seg Neutrophils % Seg Neuts % (Manual) Lymphocytes % (Manual) Seg Neutrophils # Seg Neutrophils # Man D-Dimer ABG pH ABG pO2 ABG HCO3 ABG O2 Saturation ABG Base Excess ABG Hemoglobin Oxyhemoglobin Sodium Chloride Carbon Dioxide BUN Creatinine Glucose POC Glucose 129 H 141 H 125 H Calcium Ferritin AST Lactate Dehydrogenase C-Reactive Protein Total Protein Albumin Coronavirus (PCR) 02/01/21 02/01/21 02/01/21 06:26 11:15 16:11 WBC RBC Hgb MCV MCH RDW Plt Count Lymph % (Auto) [place] % (Auto) Lymph # (Auto) Seg Neutrophils % Seg Neuts % (Manual) Lymphocytes % (Manual) Seg Neutrophils # Seg Neutrophils # Man D-Dimer ABG pH ABG pO2 ABG HCO3 ABG O2 Saturation ABG Base Excess ABG Hemoglobin Oxyhemoglobin Sodium Chloride Carbon Dioxide BUN Creatinine Glucose POC Glucose 136 H 260 H 240 H Calcium Ferritin AST Lactate Dehydrogenase C-Reactive Protein Total Protein Albumin Coronavirus (PCR) 02/01/21 02/02/21 02/02/21 22:32 07:15 07:56 WBC 3.1 L RBC Hgb MCV 75 L MCH 23 L RDW Plt Count Lymph % (Auto) 44.9 H [place] % (Auto) 9.2 H Lymph # (Auto) Seg Neutrophils % Seg Neuts % (Manual) Lymphocytes % (Manual) Seg Neutrophils # 1.3 L Seg Neutrophils # Man D-Dimer ABG pH ABG pO2 ABG HCO3 ABG O2 Saturation ABG Base Excess ABG Hemoglobin Oxyhemoglobin Sodium Chloride Carbon Dioxide BUN Creatinine Glucose POC Glucose 298 H 164 H Calcium Ferritin AST Lactate Dehydrogenase C-Reactive Protein Total Protein Albumin Coronavirus (PCR) 02/02/21 02/02/21 02/02/21 07:56 11:35 16:07 WBC RBC Hgb MCV MCH RDW Plt Count Lymph % (Auto) [place] % (Auto) Lymph # (Auto) Seg Neutrophils % Seg Neuts % (Manual) Lymphocytes % (Manual) Seg Neutrophils # Seg Neutrophils # Man D-Dimer ABG pH ABG pO2 ABG HCO3 ABG O2 Saturation ABG Base Excess ABG Hemoglobin Oxyhemoglobin Sodium Chloride Carbon Dioxide 31 H BUN Creatinine 0.4 L Glucose 159 H POC Glucose 297 H 252 H Calcium 8.2 L Ferritin AST Lactate Dehydrogenase C-Reactive Protein Total Protein Albumin Coronavirus (PCR) 02/02/21 02/03/21 02/03/21 22:33 17:04 22:17 WBC RBC Hgb MCV MCH RDW Plt Count Lymph % (Auto) [place] % (Auto) Lymph # (Auto) Seg Neutrophils % Seg Neuts % (Manual) Lymphocytes % (Manual) Seg Neutrophils # Seg Neutrophils # Man D-Dimer ABG pH ABG pO2 ABG HCO3 ABG O2 Saturation ABG Base Excess ABG Hemoglobin Oxyhemoglobin Sodium Chloride Carbon Dioxide BUN Creatinine Glucose POC Glucose 257 H 247 H 278 H Calcium Ferritin AST Lactate Dehydrogenase C-Reactive Protein Total Protein Albumin Coronavirus (PCR) 02/04/21 02/04/21 02/04/21 05:41 07:55 11:56 WBC RBC Hgb MCV MCH RDW Plt Count Lymph % (Auto) [place] % (Auto) Lymph # (Auto) Seg Neutrophils % Seg Neuts % (Manual) Lymphocytes % (Manual) Seg Neutrophils # Seg Neutrophils # Man D-Dimer ABG pH ABG pO2 ABG HCO3 ABG O2 Saturation ABG Base Excess ABG Hemoglobin Oxyhemoglobin Sodium Chloride Carbon Dioxide 31 H BUN 19 H Creatinine 0.5 L Glucose 184 H POC Glucose 182 H 227 H Calcium Ferritin AST Lactate Dehydrogenase C-Reactive Protein Total Protein Albumin Coronavirus (PCR) 02/04/21 02/04/21 02/04/21 12:45 14:52 16:45 WBC 4.0 L RBC Hgb MCV 77 L MCH 24 L RDW 15.5 H Plt Count Lymph % (Auto) [place] % (Auto) Lymph # (Auto) Seg Neutrophils % Seg Neuts % (Manual) Lymphocytes % (Manual) Seg Neutrophils # Seg Neutrophils # Man D-Dimer ABG pH ABG pO2 65.6 L ABG HCO3 30.8 H ABG O2 Saturation 94.0 L ABG Base Excess 5.5 H ABG Hemoglobin 10.3 L Oxyhemoglobin 92.3 L Sodium Chloride Carbon Dioxide BUN Creatinine Glucose POC Glucose 194 H Calcium Ferritin AST Lactate Dehydrogenase C-Reactive Protein Total Protein Albumin Coronavirus (PCR) 02/04/21 02/05/21 02/05/21 22:00 06:55 07:49 WBC RBC Hgb 10.0 L MCV MCH RDW Plt Count Lymph % (Auto) [place] % (Auto) Lymph # (Auto) Seg Neutrophils % Seg Neuts % (Manual) Lymphocytes % (Manual) Seg Neutrophils # Seg Neutrophils # Man D-Dimer ABG pH ABG pO2 ABG HCO3 ABG O2 Saturation ABG Base Excess ABG Hemoglobin Oxyhemoglobin Sodium Chloride Carbon Dioxide BUN Creatinine Glucose POC Glucose 281 H 204 H Calcium Ferritin AST Lactate Dehydrogenase C-Reactive Protein Total Protein Albumin Coronavirus (PCR) 02/05/21 02/05/21 02/05/21 11:23 16:13 16:22 WBC RBC Hgb 10.0 L MCV MCH RDW Plt Count Lymph % (Auto) [place] % (Auto) Lymph # (Auto) Seg Neutrophils % Seg Neuts % (Manual) Lymphocytes % (Manual) Seg Neutrophils # Seg Neutrophils # Man D-Dimer ABG pH ABG pO2 ABG HCO3 ABG O2 Saturation ABG Base Excess ABG Hemoglobin Oxyhemoglobin Sodium Chloride Carbon Dioxide BUN Creatinine Glucose POC Glucose 264 H 202 H Calcium Ferritin AST Lactate Dehydrogenase C-Reactive Protein Total Protein Albumin Coronavirus (PCR) 02/05/21 02/06/21 02/06/21 21:14 04:43 04:43 WBC 4.0 L RBC Hgb 10.0 L MCV 76 L MCH 23 L RDW 15.7 H Plt Count Lymph % (Auto) [place] % (Auto) Lymph # (Auto) Seg Neutrophils % Seg Neuts % (Manual) Lymphocytes % (Manual) Seg Neutrophils # Seg Neutrophils # Man D-Dimer ABG pH ABG pO2 ABG HCO3 ABG O2 Saturation ABG Base Excess ABG Hemoglobin Oxyhemoglobin Sodium Chloride Carbon Dioxide 32 H BUN Creatinine 0.4 L Glucose 163 H POC Glucose 180 H Calcium 8.3 L Ferritin AST Lactate Dehydrogenase C-Reactive Protein Total Protein Albumin Coronavirus (PCR) 02/06/21 02/06/21 02/06/21 08:01 11:44 16:11 WBC RBC Hgb MCV MCH RDW Plt Count Lymph % (Auto) [place] % (Auto) Lymph # (Auto) Seg Neutrophils % Seg Neuts % (Manual) Lymphocytes % (Manual) Seg Neutrophils # Seg Neutrophils # Man D-Dimer ABG pH ABG pO2 ABG HCO3 ABG O2 Saturation ABG Base Excess ABG Hemoglobin Oxyhemoglobin Sodium Chloride Carbon Dioxide BUN Creatinine Glucose POC Glucose 155 H 215 H 247 H Calcium Ferritin AST Lactate Dehydrogenase C-Reactive Protein Total Protein Albumin Coronavirus (PCR) 02/06/21 02/07/21 02/07/21 23:40 08:01 11:54 WBC RBC Hgb MCV MCH RDW Plt Count Lymph % (Auto) [place] % (Auto) Lymph # (Auto) Seg Neutrophils % Seg Neuts % (Manual) Lymphocytes % (Manual) Seg Neutrophils # Seg Neutrophils # Man D-Dimer ABG pH ABG pO2 ABG HCO3 ABG O2 Saturation ABG Base Excess ABG Hemoglobin Oxyhemoglobin Sodium Chloride Carbon Dioxide BUN Creatinine Glucose POC Glucose 267 H 233 H 227 H Calcium Ferritin AST Lactate Dehydrogenase C-Reactive Protein Total Protein Albumin Coronavirus (PCR) 02/07/21 02/07/21 02/07/21 15:48 20:58 20:58 WBC RBC Hgb MCV MCH RDW Plt Count Lymph % (Auto) [place] % (Auto) Lymph # (Auto) Seg Neutrophils % Seg Neuts % (Manual) Lymphocytes % (Manual) Seg Neutrophils # Seg Neutrophils # Man D-Dimer ABG pH ABG pO2 ABG HCO3 ABG O2 Saturation ABG Base Excess ABG Hemoglobin Oxyhemoglobin Sodium Chloride Carbon Dioxide 32 H BUN Creatinine 0.5 L 0.5 L Glucose 236 H POC Glucose 257 H Calcium 8.3 L Ferritin AST Lactate Dehydrogenase C-Reactive Protein Total Protein Albumin Coronavirus (PCR) 02/07/21 02/08/21 02/08/21 22:10 04:46 04:46 WBC 4.2 L RBC Hgb 9.7 L MCV 78 L MCH 24 L RDW 17.9 H Plt Count 110 L Lymph % (Auto) [place] % (Auto) Lymph # (Auto) Seg Neutrophils % Seg Neuts % (Manual) Lymphocytes % (Manual) Seg Neutrophils # Seg Neutrophils # Man D-Dimer ABG pH ABG pO2 ABG HCO3 ABG O2 Saturation ABG Base Excess ABG Hemoglobin Oxyhemoglobin Sodium Chloride Carbon Dioxide BUN Creatinine 0.4 L Glucose 220 H POC Glucose 241 H Calcium 8.0 L Ferritin AST Lactate Dehydrogenase C-Reactive Protein Total Protein Albumin Coronavirus (PCR) 02/08/21 02/08/21 02/08/21 08:05 11:36 15:44 WBC RBC Hgb MCV MCH RDW Plt Count Lymph % (Auto) [place] % (Auto) Lymph # (Auto) Seg Neutrophils % Seg Neuts % (Manual) Lymphocytes % (Manual) Seg Neutrophils # Seg Neutrophils # Man D-Dimer ABG pH ABG pO2 ABG HCO3 ABG O2 Saturation ABG Base Excess ABG Hemoglobin Oxyhemoglobin Sodium Chloride Carbon Dioxide BUN Creatinine Glucose POC Glucose 208 H 200 H 149 H Calcium Ferritin AST Lactate Dehydrogenase C-Reactive Protein Total Protein Albumin Coronavirus (PCR) 02/08/21 02/09/21 02/09/21 21:35 04:24 07:39 WBC RBC Hgb MCV MCH RDW Plt Count Lymph % (Auto) [place] % (Auto) Lymph # (Auto) Seg Neutrophils % Seg Neuts % (Manual) Lymphocytes % (Manual) Seg Neutrophils # Seg Neutrophils # Man D-Dimer ABG pH ABG pO2 ABG HCO3 ABG O2 Saturation ABG Base Excess ABG Hemoglobin Oxyhemoglobin Sodium Chloride Carbon Dioxide BUN Creatinine 0.4 L Glucose 205 H POC Glucose 249 H 205 H Calcium 8.1 L Ferritin AST Lactate Dehydrogenase C-Reactive Protein Total Protein Albumin Coronavirus (PCR) 02/09/21 02/09/21 02/09/21 11:53 16:52 21:26 WBC RBC Hgb MCV MCH RDW Plt Count Lymph % (Auto) [place] % (Auto) Lymph # (Auto) Seg Neutrophils % Seg Neuts % (Manual) Lymphocytes % (Manual) Seg Neutrophils # Seg Neutrophils # Man D-Dimer ABG pH ABG pO2 ABG HCO3 ABG O2 Saturation ABG Base Excess ABG Hemoglobin Oxyhemoglobin Sodium Chloride Carbon Dioxide BUN Creatinine Glucose POC Glucose 303 H 164 H 257 H Calcium Ferritin AST Lactate Dehydrogenase C-Reactive Protein Total Protein Albumin Coronavirus (PCR) 02/10/21 02/10/21 02/10/21 09:30 09:38 11:45 WBC RBC Hgb MCV MCH RDW Plt Count Lymph % (Auto) [place] % (Auto) Lymph # (Auto) Seg Neutrophils % Seg Neuts % (Manual) Lymphocytes % (Manual) Seg Neutrophils # Seg Neutrophils # Man D-Dimer ABG pH 7.309 L ABG pO2 71.2 L ABG HCO3 29.1 H ABG O2 Saturation 92.4 L ABG Base Excess ABG Hemoglobin 11.2 L Oxyhemoglobin 90.2 L Sodium Chloride Carbon Dioxide BUN Creatinine Glucose POC Glucose 240 H 257 H Calcium Ferritin AST Lactate Dehydrogenase C-Reactive Protein Total Protein Albumin Coronavirus (PCR) 02/10/21 02/10/2121 17:12 21:26 04:50 WBC RBC Hgb MCV 78 L MCH 24 L RDW 20.3 H Plt Count 133 L Lymph % (Auto) [place] % (Auto) Lymph # (Auto) Seg Neutrophils % Seg Neuts % (Manual) Lymphocytes % (Manual) Seg Neutrophils # Seg Neutrophils # Man D-Dimer ABG pH ABG pO2 ABG HCO3 ABG O2 Saturation ABG Base Excess ABG Hemoglobin Oxyhemoglobin Sodium Chloride Carbon Dioxide BUN Creatinine Glucose POC Glucose 178 H 362 H Calcium Ferritin AST Lactate Dehydrogenase C-Reactive Protein Total Protein Albumin Coronavirus (PCR) 02/11/21 02/11/21 02/11/21 08:02 11:52 17:14 WBC RBC Hgb MCV MCH RDW Plt Count Lymph % (Auto) [place] % (Auto) Lymph # (Auto) Seg Neutrophils % Seg Neuts % (Manual) Lymphocytes % (Manual) Seg Neutrophils # Seg Neutrophils # Man D-Dimer ABG pH ABG pO2 ABG HCO3 ABG O2 Saturation ABG Base Excess ABG Hemoglobin Oxyhemoglobin Sodium Chloride Carbon Dioxide BUN Creatinine Glucose POC Glucose 263 H 433 H 212 H Calcium Ferritin AST Lactate Dehydrogenase C-Reactive Protein Total Protein Albumin Coronavirus (PCR) 02/11/21 02/12/21 02/12/21 21:39 08:24 11:21 WBC RBC Hgb MCV MCH RDW Plt Count Lymph % (Auto) [place] % (Auto) Lymph # (Auto) Seg Neutrophils % Seg Neuts % (Manual) Lymphocytes % (Manual) Seg Neutrophils # Seg Neutrophils # Man D-Dimer ABG pH ABG pO2 ABG HCO3 ABG O2 Saturation ABG Base Excess ABG Hemoglobin Oxyhemoglobin Sodium Chloride Carbon Dioxide BUN Creatinine Glucose POC Glucose 248 H 295 H 403 H Calcium Ferritin AST Lactate Dehydrogenase C-Reactive Protein Total Protein Albumin Coronavirus (PCR) 02/12/21 02/13/21 02/13/21 16:29 07:32 12:19 WBC RBC Hgb MCV MCH RDW Plt Count Lymph % (Auto) [place] % (Auto) Lymph # (Auto) Seg Neutrophils % Seg Neuts % (Manual) Lymphocytes % (Manual) Seg Neutrophils # Seg Neutrophils # Man D-Dimer ABG pH ABG pO2 ABG HCO3 ABG O2 Saturation ABG Base Excess ABG Hemoglobin Oxyhemoglobin Sodium Chloride Carbon Dioxide BUN Creatinine Glucose POC Glucose 238 H 299 H 357 H Calcium Ferritin AST Lactate Dehydrogenase C-Reactive Protein Total Protein Albumin Coronavirus (PCR) 02/13/21 02/13/21 02/14/21 16:28 21:45 07:44 WBC RBC Hgb MCV MCH RDW Plt Count Lymph % (Auto) [place] % (Auto) Lymph # (Auto) Seg Neutrophils % Seg Neuts % (Manual) Lymphocytes % (Manual) Seg Neutrophils # Seg Neutrophils # Man D-Dimer ABG pH ABG pO2 ABG HCO3 ABG O2 Saturation ABG Base Excess ABG Hemoglobin Oxyhemoglobin Sodium Chloride Carbon Dioxide BUN Creatinine Glucose POC Glucose 270 H 346 H 234 H Calcium Ferritin AST Lactate Dehydrogenase C-Reactive Protein Total Protein Albumin Coronavirus (PCR) 02/14/21 02/14/21 02/14/21 11:12 16:40 21:27 WBC RBC Hgb MCV MCH RDW Plt Count Lymph % (Auto) [place] % (Auto) Lymph # (Auto) Seg Neutrophils % Seg Neuts % (Manual) Lymphocytes % (Manual) Seg Neutrophils # Seg Neutrophils # Man D-Dimer ABG pH ABG pO2 ABG HCO3 ABG O2 Saturation ABG Base Excess ABG Hemoglobin Oxyhemoglobin Sodium Chloride Carbon Dioxide BUN Creatinine Glucose POC Glucose 294 H 116 H 159 H Calcium Ferritin AST Lactate Dehydrogenase C-Reactive Protein Total Protein Albumin Coronavirus (PCR) 02/15/21 02/15/21 02/15/21 07:58 11:41 16:41 WBC RBC Hgb MCV MCH RDW Plt Count Lymph % (Auto) [place] % (Auto) Lymph # (Auto) Seg Neutrophils % Seg Neuts % (Manual) Lymphocytes % (Manual) Seg Neutrophils # Seg Neutrophils # Man D-Dimer ABG pH ABG pO2 ABG HCO3 ABG O2 Saturation ABG Base Excess ABG Hemoglobin Oxyhemoglobin Sodium Chloride Carbon Dioxide BUN Creatinine Glucose POC Glucose 225 H 325 H 148 H Calcium Ferritin AST Lactate Dehydrogenase C-Reactive Protein Total Protein Albumin Coronavirus (PCR) 02/15/21 02/16/21 02/16/21 22:29 07:55 11:02 WBC RBC Hgb MCV MCH RDW Plt Count Lymph % (Auto) [place] % (Auto) Lymph # (Auto) Seg Neutrophils % Seg Neuts % (Manual) Lymphocytes % (Manual) Seg Neutrophils # Seg Neutrophils # Man D-Dimer ABG pH ABG pO2 ABG HCO3 ABG O2 Saturation ABG Base Excess ABG Hemoglobin Oxyhemoglobin Sodium Chloride Carbon Dioxide BUN Creatinine Glucose POC Glucose 239 H 138 H 337 H Calcium Ferritin AST Lactate Dehydrogenase C-Reactive Protein Total Protein Albumin Coronavirus (PCR) 02/16/21 02/16/21 02/17/21 16:41 21:46 06:53 WBC RBC Hgb MCV 78 L MCH 24 L RDW 18.9 H Plt Count Lymph % (Auto) [place] % (Auto) Lymph # (Auto) Seg Neutrophils % Seg Neuts % (Manual) Lymphocytes % (Manual) Seg Neutrophils # Seg Neutrophils # Man D-Dimer ABG pH ABG pO2 ABG HCO3 ABG O2 Saturation ABG Base Excess ABG Hemoglobin Oxyhemoglobin Sodium Chloride Carbon Dioxide BUN Creatinine Glucose POC Glucose 138 H 286 H Calcium Ferritin AST Lactate Dehydrogenase C-Reactive Protein Total Protein Albumin Coronavirus (PCR) 02/17/21 02/17/21 02/17/21 06:53 07:37 11:12 WBC RBC Hgb MCV MCH RDW Plt Count Lymph % (Auto) [place] % (Auto) Lymph # (Auto) Seg Neutrophils % Seg Neuts % (Manual) Lymphocytes % (Manual) Seg Neutrophils # Seg Neutrophils # Man D-Dimer ABG pH ABG pO2 ABG HCO3 ABG O2 Saturation ABG Base Excess ABG Hemoglobin Oxyhemoglobin Sodium Chloride Carbon Dioxide 31 H BUN 20 H Creatinine 0.4 L Glucose 238 H POC Glucose 251 H 221 H Calcium Ferritin AST Lactate Dehydrogenase C-Reactive Protein Total Protein Albumin Coronavirus (PCR) 02/17/21 02/17/21 02/18/21 16:36 21:21 08:01 WBC RBC Hgb MCV MCH RDW Plt Count Lymph % (Auto) [place] % (Auto) Lymph # (Auto) Seg Neutrophils % Seg Neuts % (Manual) Lymphocytes % (Manual) Seg Neutrophils # Seg Neutrophils # Man D-Dimer ABG pH ABG pO2 ABG HCO3 ABG O2 Saturation ABG Base Excess ABG Hemoglobin Oxyhemoglobin Sodium Chloride Carbon Dioxide BUN Creatinine Glucose POC Glucose 213 H 185 H 280 H Calcium Ferritin AST Lactate Dehydrogenase C-Reactive Protein Total Protein Albumin Coronavirus (PCR) 02/18/21 02/18/21 02/18/21 11:55 15:33 21:48 WBC RBC Hgb MCV MCH RDW Plt Count Lymph % (Auto) [place] % (Auto) Lymph # (Auto) Seg Neutrophils % Seg Neuts % (Manual) Lymphocytes % (Manual) Seg Neutrophils # Seg Neutrophils # Man D-Dimer ABG pH ABG pO2 ABG HCO3 ABG O2 Saturation ABG Base Excess ABG Hemoglobin Oxyhemoglobin Sodium Chloride Carbon Dioxide BUN Creatinine Glucose POC Glucose 303 H 276 H 288 H Calcium Ferritin AST Lactate Dehydrogenase C-Reactive Protein Total Protein Albumin Coronavirus (PCR) 02/19/21 02/19/21 02/19/21 08:22 12:05 17:18 WBC RBC Hgb MCV MCH RDW Plt Count Lymph % (Auto) [place] % (Auto) Lymph # (Auto) Seg Neutrophils % Seg Neuts % (Manual) Lymphocytes % (Manual) Seg Neutrophils # Seg Neutrophils # Man D-Dimer ABG pH ABG pO2 ABG HCO3 ABG O2 Saturation ABG Base Excess ABG Hemoglobin Oxyhemoglobin Sodium Chloride Carbon Dioxide BUN Creatinine Glucose POC Glucose 247 H 274 H 135 H Calcium Ferritin AST Lactate Dehydrogenase C-Reactive Protein Total Protein Albumin Coronavirus (PCR) 02/19/21 02/20/21 02/20/21 21:11 08:00 10:54 WBC RBC Hgb MCV 78 L MCH 24 L RDW 18.4 H Plt Count Lymph % (Auto) 6.6 L [place] % (Auto) Lymph # (Auto) 0.5 L Seg Neutrophils % 89.2 H Seg Neuts % (Manual) Lymphocytes % (Manual) Seg Neutrophils # Seg Neutrophils # Man D-Dimer ABG pH ABG pO2 ABG HCO3 ABG O2 Saturation ABG Base Excess ABG Hemoglobin Oxyhemoglobin Sodium Chloride Carbon Dioxide BUN Creatinine Glucose POC Glucose 341 H 238 H Calcium Ferritin AST Lactate Dehydrogenase C-Reactive Protein Total Protein Albumin Coronavirus (PCR) 02/20/21 02/20/21 02/20/21 10:54 11:16 17:27 WBC RBC Hgb MCV MCH RDW Plt Count Lymph % (Auto) [place] % (Auto) Lymph # (Auto) Seg Neutrophils % Seg Neuts % (Manual) Lymphocytes % (Manual) Seg Neutrophils # Seg Neutrophils # Man D-Dimer ABG pH ABG pO2 ABG HCO3 ABG O2 Saturation ABG Base Excess ABG Hemoglobin Oxyhemoglobin Sodium Chloride 97.8 L Carbon Dioxide BUN 22 H Creatinine 0.5 L Glucose 297 H POC Glucose 305 H 256 H Calcium Ferritin AST Lactate Dehydrogenase C-Reactive Protein Total Protein Albumin Coronavirus (PCR) 02/20/21 02/21/21 02/21/21 21:06 07:36 12:16 WBC RBC Hgb MCV MCH RDW Plt Count Lymph % (Auto) [place] % (Auto) Lymph # (Auto) Seg Neutrophils % Seg Neuts % (Manual) Lymphocytes % (Manual) Seg Neutrophils # Seg Neutrophils # Man D-Dimer ABG pH ABG pO2 ABG HCO3 ABG O2 Saturation ABG Base Excess ABG Hemoglobin Oxyhemoglobin Sodium Chloride Carbon Dioxide BUN Creatinine Glucose POC Glucose 235 H 357 H 229 H Calcium Ferritin AST Lactate Dehydrogenase C-Reactive Protein Total Protein Albumin Coronavirus (PCR) 02/21/21 02/21/21 02/22/21 17:13 21:48 07:43 WBC RBC Hgb MCV MCH RDW Plt Count Lymph % (Auto) [place] % (Auto) Lymph # (Auto) Seg Neutrophils % Seg Neuts % (Manual) Lymphocytes % (Manual) Seg Neutrophils # Seg Neutrophils # Man D-Dimer ABG pH ABG pO2 ABG HCO3 ABG O2 Saturation ABG Base Excess ABG Hemoglobin Oxyhemoglobin Sodium Chloride Carbon Dioxide BUN Creatinine Glucose POC Glucose 289 H 333 H 250 H Calcium Ferritin AST Lactate Dehydrogenase C-Reactive Protein Total Protein Albumin Coronavirus (PCR) 02/22/21 02/22/21 02/22/21 11:10 18:42 22:40 WBC RBC Hgb MCV MCH RDW Plt Count Lymph % (Auto) [place] % (Auto) Lymph # (Auto) Seg Neutrophils % Seg Neuts % (Manual) Lymphocytes % (Manual) Seg Neutrophils # Seg Neutrophils # Man D-Dimer ABG pH ABG pO2 ABG HCO3 ABG O2 Saturation ABG Base Excess ABG Hemoglobin Oxyhemoglobin Sodium Chloride Carbon Dioxide BUN Creatinine Glucose POC Glucose 243 H 283 H 329 H Calcium Ferritin AST Lactate Dehydrogenase C-Reactive Protein Total Protein Albumin Coronavirus (PCR) 02/23/21 07:54 WBC RBC Hgb MCV MCH RDW Plt Count Lymph % (Auto) [place] % (Auto) Lymph # (Auto) Seg Neutrophils % Seg Neuts % (Manual) Lymphocytes % (Manual) Seg Neutrophils # Seg Neutrophils # Man D-Dimer ABG pH ABG pO2 ABG HCO3 ABG O2 Saturation ABG Base Excess ABG Hemoglobin Oxyhemoglobin Sodium Chloride Carbon Dioxide BUN Creatinine Glucose POC Glucose 205 H Calcium Ferritin AST Lactate Dehydrogenase C-Reactive Protein Total Protein Albumin Coronavirus (PCR)
--- NOTE | 2021-02-24 08:58 | Consultation ---
History of Present Illness - Reason for Consult Consult date: 02/24/21 Reason for consult: MHE Requesting physician: DANE SEGURA - History of Present Psychiatric Illness Psych Progress Patient seen this AM in the room, when asked where she is, 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 Patient says she is not a patient, she endorses being checked into the hospital for covid 19 but then states that was in year 2019 and it was all government cohered efforts. Patient says she is also in phd program and her current visit here is part of dessertation. MENTAL STATUS EXAMINATION General Appearance and Behavior: Age appropriate, good hygiene, wearing appropriate clothes, good eye contact, uncooperative with questioning. Cooperation: Withdrawn Psychomotor Behavior: unremarkable and within normal limits Mood: Neutral Affect and affective range: Flat Thought Process:N/A Thought Content: N/A Speech: Normal volume, Regular rate and rhythm Intellectual Functioning: N/A Suicidal Ideation: N/A l Homicidal Ideation: N/A Impulse Control: Impaired Insight and Judgment: Impaired Memory: N/A Attention: Normal, Orientation: Alert and oriented to facility REVIEW OF SYSTEMS ROS cannot be reliably obtained from the patient due to her confusion and somnolence. MENTAL STATUS EXAMINATION General Appearance and Behavior: Age appropriate, good hygiene, wearing appropriate clothes, good eye contact, cooperative with questioning. Cooperation: engaged Psychomotor Behavior: normal Mood: good Affect and affective range: dysthymic Thought Process: illogical Thought Content: delusional Speech: Normal volume, Regular rate and rhythm Intellectual Functioning: N/A Suicidal Ideation: N/A l Homicidal Ideation: N/A Impulse Control: Impaired Insight and Judgment: Impaired Memory: N/A Attention: Normal, Orientation: Alert Assessment and Plan - Patient Problems (1) Delirium due to another medical condition Current Visit: Yes Status: Acute F05 Treatment Plan Though has had much improvement prior to my encounter with her in December. I do believe patients prolonged hospital and covid related infection has contributed poorly to her current mental status, pt appears deliriuous and Based on current assessment, she is not able to understand or explain why she is at the hospital, this may also be due to the on going medical problems she is being treated for, hence I do not believe patient is able to make capable medical decision at this particular time of evaluation or understand the risk of refusing care hence not in a medical decision making capacity per current mental status Continue current medications. MEDICATIONS: Risks, benefits and alternatives of medications discussed with the patient, questions answered and consent obtained from patient. PSYCHOTHERAPY: Supportive psychotherapy provided MEDICAL: Per primary team DELIRIUM PRECAUTIONS: Please re-orient patient frequently, keep lights on during the day, and minimize benzodiazepines and opiates as these medications could worsen patient's confusion. [employer]: DISPOSITION: Do Not Recommend acute inpatient psychiatric hospitalization at this time. Case discussed with Dr. Wallace who agrees with current disposition FOLLOW-UP: Will sign off Thank you for the consult. Please contact with any questions and/or concerns. Medications and Allergies Allergies Allergy/AdvReac Type Severity Reaction Status Date / Time No Known Allergies Allergy Verified 01/18/21 00:44 Home Medications Medication Instructions Recorded Confirmed Last Taken Type No Known Home Medications [No 02/02/21 02/02/21 Unknown History Reported Home Medications] Active Meds: Active Medications Albuterol (Albuterol 8.5 Gm Mdi Inhalation) 2 puff IH Q4HRT PRN PRN Reason: Shortness Of Breath Apixaban (Apixaban 2.5 Mg Tab) 2.5 mg PO Q12HR [facility]; Protocol Last Admin: 02/24/21 00:04 Dose: Not Given Documented by: Aripiprazole (Aripiprazole 15 Mg Tab) 15 mg PO QDAY [facility] Last Admin: 02/23/21 09:58 Dose: Not Given Documented by: Ascorbic Acid (Ascorbic Acid 500 Mg Tab) 1,000 mg PO BID [facility] Last Admin: 02/24/21 00:05 Dose: Not Given Documented by: Cholecalciferol (Cholecalciferol (Vit D3) 5,000 Unit Tab) 5,000 unit PO DAILY [facility] Last Admin: 02/23/21 09:59 Dose: Not Given Documented by: Divalproex Sodium (Divalproex Er 500 Mg Tab) 500 mg PO QDAY [facility] Last Admin: 02/23/21 10:44 Dose: Not Given Documented by: Famotidine (Famotidine 20 Mg Tab) 20 mg PO BID [facility] Last Admin: 02/24/21 00:05 Dose: Not Given Documented by: Furosemide (Furosemide 40 Mg/4 Ml Inj) 40 mg IV QDAY [facility] Stop: 02/24/21 10:01 Last Admin: 02/23/21 10:45 Dose: Not Given Documented by: Hydralazine HCl (Hydralazine 20 Mg/1 Ml Inj) 10 mg IV Q6H PRN PRN Reason: htn Last Admin: 02/14/21 06:22 Dose: 10 mg Documented by: Hydromorphone HCl (Hydromorphone 1 Mg/1 Ml Inj) 0.5 mg IV Q6H PRN PRN Reason: Pain , Severe (7-10) Last Admin: 02/18/21 07:55 Dose: 0.5 mg Documented by: Hydrophilic Ointment (Petrolatum,White 30 Gm Oint) 1 applic TP PRN PRN PRN Reason: Skin Irritation Insulin Glargine (Insulin Glargine 100 Units/Ml) 30 units SUB-Q QHS [facility] Last Admin: 02/24/21 00:05 Dose: Not Given Documented by: Insulin Human Lispro (Insulin Lispro 100 Unit/Ml) 0 unit SUB-Q [facility]; Protocol Last Admin: 02/24/21 07:30 Dose: Not Given Documented by: Metoprolol Tartrate (Metoprolol Tartrate 25 Mg Tab) 12.5 mg PO BID [facility] Last Admin: 02/24/21 00:05 Dose: Not Given Documented by: Mirtazapine (Mirtazapine 15 Mg Tab) 7.5 mg PO QHS [facility] Last Admin: 02/24/21 00:05 Dose: Not Given Documented by: Oxymetazoline HCl (Oxymetazoline 0.05% Nasal [place]) 2 spray NS Q12H PRN PRN Reason: Congestion Last Admin: 02/03/21 13:17 Dose: 2 spray Documented by: Paliperidone (Paliperidone Er 3 Mg Tab) 6 mg PO QDAY [facility] Last Admin: 02/23/21 09:58 Dose: Not Given Documented by: Prednisone (Prednisone 20 Mg Tab) 40 mg PO QDAY [facility] Last Admin: 02/23/21 09:58 Dose: Not Given Documented by: Sodium Chloride (Sodium Chloride 0.9% 10 Ml Flush Syringe) 10 ml IV BID [facility] Last Admin: 02/24/21 00:04 Dose: Not Given Documented by: Zinc Sulfate (Zinc Sulfate 220 Mg Cap) 220 mg PO QDAY [facility] Last Admin: 02/23/21 09:59 Dose: Not Given Documented by: Mental Status Exam - Vital signs Last Vital Signs Temp 98.6 F 02/23/21 04:59 Pulse 107 H 02/23/21 04:59 Resp 18 02/23/21 04:59 BP 152/75 02/23/21 04:59 Pulse Ox 94 02/23/21 18:50 Results Result Diagrams: 02/20/21 10:54 02/20/21 10:54 Abnormal lab results 02/23/21 Range/Units 07:54 POC Glucose 205 H (70-105) mg/dL All other labs normal. Assessment and Plan - Psychiatric problem (1) Delirium due to another medical condition Current Visit: Yes Status: Acute
[2021-02-24] MEDS: ARIPiprazole 15 MG TAB PO SCH (10:00)
[2021-02-24] MEDS: predniSONE 20 MG TAB PO SCH (10:00)
[2021-02-24] MEDS: ZINC SULFATE 220 MG CAP PO SCH (10:00)
[2021-02-24] MEDS: FUROSEMIDE 40 MG/4 ML INJ IV SCH (10:00)
[2021-02-24] MEDS: CHOLECALCIFEROL (VIT D3) 5,000 UNIT TAB PO SCH (10:00)
[2021-02-24] MEDS: PALIPERIDONE ER 3 MG TAB PO SCH (10:00)
[2021-02-24] MEDS: DIVALPROEX ER 500 MG TAB PO SCH (10:00)
--- NOTE | 2021-02-24 10:28 | Progress Note ---
Assessment and Plan Assessment and plan: This is a 55-year-old female with schizophrenia who presented to [facility] on 01/18 for shortness of breath, cough, subjective fever and not feeling well for the last couple days with known COVID-19 exposure. While in the emergency room patient was switched from non rebreather mask to high flow nasal cannula and his CTA chest showed no acute pulmonary embolism. Patient was admitted to the hospital service as a COVID-19 PUI with consults to [facility], infectious disease, psych. 01/18/2021 -Acute hypoxic respiratory failure requiring high flow oxygen 40 L. Nebulizer treatment -Patient is admitted for suspected Covid pneumonia. Patient is on dexamethasone, COVID-19 test is pending. Patient is on empiric antibiotics. -ID consulted, will consult pulmonary. -Patient has hyponatremia yesterday and I will repeat and if it is low I will manage accordingly -Patient has elevated D-dimer and CTA chest and bilateral Doppler ultrasound of the lower extremities pending 01/19/2021 -Acute hypoxic respiratory failure currently on BiPAP, nebulizer treatment. I will put in orders to transfer to [facility] yesterday but there was no bed. -Patient is positive for Covid and she is on Decadron and remdesivir. Actemra was ordered on 01/19/2021 -ID evaluated the patient and recommend to continue Decadron and remdesivir, also to continue ceftriaxone and azithromycin for 5 days because of the elevated procalcitonin level. Pulmonary was consulted and recommend to continue current management and add Lasix -CTA chest was done and significant for bilateral pulmonary opacities, negative for PE, Doppler ultrasound of the lower extremities was negative for DVT. -Prognosis is guarded. -Patient is currently on BiPAP and she was agitated and trying to take off the BiPAP, I put the patient on restraints. Discussed with electrician apprentice powerhouse to transfer the patient to IM and if there is no bed she need to be transferred to CCU. 01/20: Patient received 5 mg of Haldol for severe agitation and refusal to keep high flow nasal cannula in place. [facility] ordered Lasix again. Psych was consulted today. Patient was on BiPAP therapy all night and RT attempted to give her a break patient is on high flow nasal cannula however she did not keep this in place and was paced back on BiPAP after receiving Haldol. She was started on Lantus today. 01/21: Patient is on BiPAP and on time examination was on 20/10 100% FiO2. Patient was started on Lantus. Psych consult completed and started on Haldol p.o. twice daily and Mirtazepin PO daily. No acute events reported overnight. Patient's D-dimer is greater than 10,000 started on prophylactic Lovenox as recent CTA chest and bilateral lower extremity Doppler ultrasound were negative. 01/22: Patient has been taken off BiPAP therapy and placed on high flow nasal cannula. Patient has been downgraded to IMCU. Patient's hyponatremia and hypochloremia have worsened. 01/23: Patient was on BiPAP overnight with FiO2 85% and IPAP 20/EPAP 10. Patient currently with high flow nasal cannula 40 L O2 with an FiO2 of 100%. Continue remdesivir and dexamethasone. Patient is s/p Actemra on 01/20. Continue empiric antibiotics per ID recommendations. Continue anticoagulation per protocol. 01/24: Patient is tachycardic and hypertensive and [facility] has opted to add amlodipine. Patient remains on 40 L 100% high flow nasal cannula. Continue remdesivir and dexamethasone. Patient is s/p Actemra on 01/20. Continue empiric antibiotics per ID recommendations. Continue anticoagulation per protocol. 01/25: Patient currently with high flow nasal cannula 40 L/min with FiO2 100%. Continue dexamethasone. Patient has completed remdesivir and s/p Actemra on 01/20. Continue full dose anticoagulation given high elevated D-dimer. Continue to trend inflammatory markers. Prognosis remains guarded. 01/26: Patient currently with high flow nasal cannula 35 L/min and FiO2 90%. Continue dexamethasone. Patient has completed remdesivir and s/p Actemra on 01/20. Continue full dose anticoagulation given high elevated D-dimer. Continue to trend inflammatory markers. Prognosis remains guarded. 01/27: Patient currently with high flow nasal cannula/Vapotherm 35 L/min O2 with FiO2 90%. Patient has completed remdesivir and s/p Actemra on 01/20. Continue full dose anticoagulation given high elevated D-dimer. Continue to trend inflammatory markers. Prognosis remains guarded. 01/28; Patient currently with high flow nasal cannula/Vapotherm 35 L/min O2 with FiO2 90%. Patient has completed remdesivir and s/p Actemra on 01/20. Continue full dose anticoagulation given high elevated D-dimer. Continue to trend inflammatory markers. Prognosis remains guarded. 01/29; patient is currently on 35 L of high flow oxygen. Prognosis guarded. Patient can be transferred to regular floor. 01/30/2021; patient is currently on 35 L of high flow oxygen, FiO2 of 65%. Patient has flat affect and did not talk to me. Patient refused most of her p.o. medications. Patient finished remdesivir, steroid. 01/31/2021; patient is on 35 L of high flow oxygen, FiO2 65%. Patient was calm and cooperative and communicative today. pulmonary is following. Patient finished remdesivir and steroid. 02/01/2021; patient was on 40 L of high flow oxygen.. I have called and discussed with her mother yesterday. Her mother told me patient was last followed at [facility] and I called facility and they told me medication she was on and I put these medications. Patient refused to eat so I put the patient on NG tube feeding for medications. Prognosis is guarded. 02/02/2021; patient is on 4 L of high flow oxygen with FiO2 of 60%. Her outpatient psych medications were reconciled. Patient was taking medications and as needed NG tube. Pulmonary is following the patient. 02/03/21: Patient noted with mild epistaxis this morning we will order some Afrin to help. Continue current management patient is on 35 L high flow. No worsening distress but still with intermittent confusion sometimes takes off the oxygen. Will repeat a trial of Lasix and monitor renal function with a.m. labs. Plan discussed with nurse at bedside. I also encouraged proning again. 02/04: Unfortunately still with hypoxia desaturating required increased to 50 L and 70% will gradually taper down. Patient due to her underlying psych history of schizophrenia is noncompliant. Daughter is working on getting guardianship over the patient. This will likely be a slow process nevertheless we will still obtain a CT of the head to ensure no other pathology. We will get an ABG and a chest x-ray today. 02/05: Patient overnight had an episode where she coughed up blood. H&H has remained stable. She has been since discontinued from full dose anticoagulants to DVT prophylactic dose. Chest x-ray shows mild worsening of congestion. Will discuss with pulmonary if patient will benefit from BiPAP during hours of sleep. Still awaiting information from family on prior psych medications that the patient was on psych review with psychiatry team as her mental status remains a deterrent and an impediment to oxygen management. We will give a trial dose of Lasix x 3 days. Will transfer to [facility] for closer monitoring 02/06: Continue supportive care, 2 more days of lasix, monitor BMP closely wean oxygen as tolerated, pulmonary input noted 02/07: Continues on High flow. Refusing medications, still with severe hypoxia, Discussed with Psych to re-evaluate the patient. 02/08: Unfortunately patient was not seen by psych yesterday and I still do not have home medication listed I asked the family and they promised to bring her in. We discussed with nursing staff to ask again. We will also reconsult psych as her underlying psych condition is precluding improvement due to her refusal of medical treatments. Patient continues on high flow 10 today will be to further wean down if tolerated. She is still refusing prone position 02/09: Patient remains on oxygen, not compliance, continues on restraints to assist with compliance, will try to wean again 02/10: Restart lasix, discussed with Tree Specialist considering starting on PrECEDEX, Monitor electrolytes. Prognosis is guarded. 02/11/2021; patient is on Lasix, Precedex and Solu-Medrol 40 mg every 8 hours. Patient's blood sugar is elevated and I increase Lantus from 20-25 nightly, give her a dose of 10 units of Lantus now. Will monitor blood sugar. Prognosis very poor. 02/12/2021; patient is on 40 L of high flow oxygen, 94% FiO2. Pulmonary is following the patient and recommendations noted. Dr Mancilla Discussed with the patient and the mother about the plan of care and the high risk of her condition and refusal of care. 02/13/2021; patient was on 30 L of high flow oxygen with FiO2 of 90%. Pulmonary is following the patient. Continue [facility] care. Prognosis is guarded. 02/14/2021; patient is on 30 L of high flow oxygen with FiO2 of 90%. Continue inpatient care. 02/15/2021; patient was alert and oriented. Patient states she is feeling okay today. Patient is on 30 L of high flow oxygen with FiO2 of 90%. Patient was given Lasix yesterday. Wean as tolerated. 02/16/2021; patient was alert and oriented. Patient states she is feeling better . Patient is on 25 L of high flow oxygen with FiO2 of 75%. Wean oxygen as tolerated. 02/17: Continue supportive care. Continue to wean as tolerated. Blood sugar 251 mildly elevated will adjust insulin for better control as patient still on steroids Lasix today per Pulmonary no indication to wean steroids until lower FiO2 obtained. 02/18: Agree with intermittent Lasix. Discussed with case management about possible LTAC no Medicaid bed available per documentation. We will continue to follow for now we will continue aggressive weaning of oxygen. 02/19: Patient continues on high flow receiving intermittent Lasix with pulmonary guidance. Continue current management and weaning off oxygen. Continue passive range of motion while in bed. Fall precautions. 02/20: Continue supportive care, continue under pulmonary guidance, continue pressure ulcer prevention techniques. Discussed with team to ensure patient is moving, being turned q2hrs and daily skin integrity exam 02/21: This morning found patient on 8 L nasal cannula satting 97% down to 5 L and she still satting 95 to 97% after 4 hours. I have further decreased it to 3 L of oxygen and I have discussed with nursing staff to recheck it again in the next 2 hours and also ambulate the patient on 3 L of oxygen. She does not demonstrate any further respiratory distress worsening. We will continue current management and adjust as needed. Case management looking for placement 02/22: On 3 L of oxygen patient saturation dropped to the 80s 89-91 range. Patient back up to 5 L because this was at rest. Continue steroids will discuss with ID if this can be changed to p.o. steroids. Will give additional dose of Lasix today. Encourage some physical therapy sitting up and any activity to prevent debility. 02/23: She tells me that she is here on a work related bases, she is unfortunately totally confused refusing medications which precludes management of her condition. As a result we will not make any adjustments to her insulin therapy continue steroids continue to monitor nurses will continue to ask her to give her her meds. If it becomes to the point where her blood sugar increases out of control additional measures may need to be implemented. I agree with reconsult the psych team. 02/24: We will wean oxygen further down to 3 L today monitor to see how the patient fares on diet rate with saturation. Continue diuresis. If patient remains stable on 3 L she can be discharged with tapering dose. She is seen by psych and examined Dr. Mariano of making medical decisions for herself or refusing medications. This may pose a challenge as patient is also being discharged to the care of her family. She would definitely will need a continued psych management outpatient. Compliance with her oxygen needs to be determined here prior to discharge. Severe COVID-19 pneumonia Acute hypoxic respiratory failure Obesity Schizophrenia Leukocytosis Hyperglycemia Schizophrenia Hypernatremia Hypercholermia Diabetes mellitus with hyperglycemia -CCM, infectious disease, psychiatry consulted, -COVID-19 PCR positive -Droplet/contact isolation -Status post remdesivir, azithromycin, ceftriaxone, -s/p Actemra -Wean supplemental oxygen as tolerated, pulmonary hygiene -Prone as tolerated -Trend COVID-19 inflammatory markers for risk stratification, CBC, CMP -SSI, Lantus -01/18 bilateral lower extremity Doppler ultrasound negative for DVT -01/17 CTA shows no evidence of pulmonary embolism, extensive bilateral pneumonia , hepatomegaly with hepatic steatosis History Interval history: Patient seen and examined, no new complaints, unfortunately there is a decline in mental status with encephalopathy as patient refusing meds at this time. This persist Hospitalist Physical - Physical exam Narrative exam: Patient was 8 L of oxygen nasal cannula The patient appeared well nourished and normally developed. Vital signs as documented. Head exam is unremarkable. No scleral icterus . Neck is without jugular venous distension, thyromegaly, or carotid bruits. Lungs decreased air entry on both lungs Cardiac exam reveals regular rate and Rhythm. Abdominal exam reveals normal bowel sounds, nontender, no organomegaly. Extremities are nonedematous and both femoral and pedal pulses are normal. 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 X1 to person but confused place and time - Constitutional Vitals: Temp Pulse Resp BP Pulse Ox 98.6 F 107 H 18 152/75 94 02/23/21 04:59 02/23/21 04:59 02/23/21 04:59 02/23/21 04:59 02/23/21 18:50 General appearance: Present: no acute distress, well-nourished HEART Score - HEART Score Troponin: Troponin T < 0.010 ng/mL (0.00-0.029) 01/17/21 16:41 Results - Labs CBC & Chem 7: 02/20/21 10:54 02/20/21 10:54 Labs: Laboratory Last Values WBC 8.0 K/mm3 (4.5-11.0) 02/20/21 10:54 RBC 4.40 M/mm3 (3.65-5.03) 02/20/21 10:54 Hgb 10.5 gm/dl (10.1-14.3) 02/20/21 10:54 Hct 34.1 % (30.3-42.9) 02/20/21 10:54 MCV 78 fl (79-97) L 02/20/21 10:54 MCH 24 pg (28-32) L 02/20/21 10:54 MCHC 31 % (30-34) 02/20/21 10:54 RDW 18.4 % (13.2-15.2) H 02/20/21 10:54 Plt Count 355 K/mm3 (140-440) 02/20/21 10:54 Lymph % (Auto) 6.6 % (13.4-35.0) L 02/20/21 10:54 [place] % (Auto) 3.5 % (0.0-7.3) 02/20/21 10:54 Eos % (Auto) 0.0 % (0.0-4.3) 02/20/21 10:54 Baso % (Auto) 0.7 % (0.0-1.8) 02/20/21 10:54 Lymph # (Auto) 0.5 K/mm3 (1.2-5.4) L 02/20/21 10:54 [place] # (Auto) 0.3 K/mm3 (0.0-0.8) 02/20/21 10:54 Eos # (Auto) 0.0 K/mm3 (0.0-0.4) 02/20/21 10:54 Baso # (Auto) 0.1 K/mm3 (0.0-0.1) 02/20/21 10:54 Add Manual Diff Complete 01/19/21 05:11 Total Counted 100 01/19/21 05:11 Seg Neutrophils % 89.2 % (40.0-70.0) H 02/20/21 10:54 Seg Neuts % (Manual) 88.0 % (40.0-70.0) H 01/19/21 05:11 Lymphocytes % (Manual) 10.0 % (13.4-35.0) L 01/19/21 05:11 Monocytes % (Manual) 2.0 % (0.0-7.3) 01/19/21 05:11 Nucleated RBC % Not Reportable 01/19/21 05:11 Seg Neutrophils # 7.2 K/mm3 (1.8-7.7) 02/20/21 10:54 Seg Neutrophils # Man 12.5 K/mm3 (1.8-7.7) H 01/19/21 05:11 Band Neutrophils # 0.0 K/mm3 01/19/21 05:11 Lymphocytes # (Manual) 1.4 K/mm3 (1.2-5.4) 01/19/21 05:11 Abs React Lymphs (Man) 0.0 K/mm3 01/19/21 05:11 Monocytes # (Manual) 0.3 K/mm3 (0.0-0.8) 01/19/21 05:11 Eosinophils # (Manual) 0.0 K/mm3 (0.0-0.4) 01/19/21 05:11 Basophils # (Manual) 0.0 K/mm3 (0.0-0.1) 01/19/21 05:11 Metamyelocytes # 0.0 K/mm3 01/19/21 05:11 Myelocytes # 0.0 K/mm3 01/19/21 05:11 Promyelocytes # 0.0 K/mm3 01/19/21 05:11 Blast Cells # 0.0 K/mm3 01/19/21 05:11 WBC Morphology Not Reportable 01/19/21 05:11 Hypersegmented Neuts Not Reportable 01/19/21 05:11 Hyposegmented Neuts Not Reportable 01/19/21 05:11 Hypogranular Neuts Not Reportable 01/19/21 05:11 Smudge Cells Not Reportable 01/19/21 05:11 Toxic Granulation Not Reportable 01/19/21 05:11 Toxic Vacuolation Not Reportable 01/19/21 05:11 Dohle Bodies Not Reportable 01/19/21 05:11 Pelger-Huet Anomaly Not Reportable 01/19/21 05:11 Inder Rods Not Reportable 01/19/21 05:11 Platelet Estimate Consistent w auto 01/19/21 05:11 Clumped Platelets Not Reportable 01/19/21 05:11 Plt Clumps, EDTA Not Reportable 01/19/21 05:11 Large Platelets Not Reportable 01/19/21 05:11 Giant Platelets Not Reportable 01/19/21 05:11 Platelet Satelliting Not Reportable 01/19/21 05:11 Plt Morphology Comment Not Reportable 01/19/21 05:11 RBC Morphology Not Reportable 01/19/21 05:11 Dimorphic RBCs Not Reportable 01/19/21 05:11 Polychromasia Not Reportable 01/19/21 05:11 Hypochromasia 1+ 01/19/21 05:11 Poikilocytosis Not Reportable 01/19/21 05:11 Anisocytosis Not Reportable 01/19/21 05:11 Microcytosis Not Reportable 01/19/21 05:11 Macrocytosis Not Reportable 01/19/21 05:11 Spherocytes Not Reportable 01/19/21 05:11 Pappenheimer Bodies Not Reportable 01/19/21 05:11 Sickle Cells Not Reportable 01/19/21 05:11 Target Cells Not Reportable 01/19/21 05:11 Tear Drop Cells Not Reportable 01/19/21 05:11 Ovalocytes Not Reportable 01/19/21 05:11 Helmet Cells Not Reportable 01/19/21 05:11 [place] Bodies Not Reportable 01/19/21 05:11 [place] Rings Not Reportable 01/19/21 05:11 Giorgio Cells Not Reportable 01/19/21 05:11 Bite Cells Not Reportable 01/19/21 05:11 Crenated Cell Not Reportable 01/19/21 05:11 Elliptocytes Not Reportable 01/19/21 05:11 Acanthocytes (Spur) Not Reportable 01/19/21 05:11 Rouleaux Not Reportable 01/19/21 05:11 Hemoglobin C Crystals Not Reportable 01/19/21 05:11 Schistocytes Not Reportable 01/19/21 05:11 Malaria parasites Not Reportable 01/19/21 05:11 Chai Bodies Not Reportable 01/19/21 05:11 Hem Pathologist Commnt No 01/19/21 05:11 PT 13.6 Sec. (12.2-14.9) 05/11/21 14:52 INR 1.06 (0.87-1.13) 02/04/21 14:52 APTT 30.7 Sec. (24.2-36.6) 02/04/21 14:52 D-Dimer 1884.49 ng/mlDDU (0-234) H 01/28/21 08:46 ABG pH 7.309 pH Units (7.350-7.450) L 02/10/21 09:30 ABG pCO2 59.4 mm Hg 02/10/21 09:30 ABG pO2 71.2 mm Hg (80.0-90.0) L 02/10/21 09:30 ABG HCO3 29.1 mmol/L (20.0-26.0) H 02/10/21 09:30 ABG O2 Saturation 92.4 % (95.0-99.0) L 02/10/21 09:30 ABG O2 Content 14.2 (0.0-44) 02/10/21 09:30 ABG Base Excess 1.8 mmol/L (-2.0-3.0) 02/10/21 09:30 ABG Hemoglobin 11.2 gm/dl (12.0-16.0) L 02/10/21 09:30 ABG Carboxyhemoglobin 1.8 % (0.0-5.0) 02/10/21 09:30 ABG Methemoglobin 0.6 % (0.0-1.5) 02/10/21 09:30 Oxyhemoglobin 90.2 % (95.0-99.0) L 02/10/21 09:30 FiO2 100 % 02/10/21 09:30 Sodium 139 mmol/L (137-145) 02/20/21 10:54 Potassium 4.8 mmol/L (3.6-5.0) 02/20/21 10:54 Chloride 97.8 mmol/L (98-107) L 02/20/21 10:54 Carbon Dioxide 29 mmol/L (22-30) 02/20/21 10:54 Anion Gap 17 mmol/L 02/20/21 10:54 BUN 22 mg/dL (7-17) H 02/20/21 10:54 Creatinine 0.5 mg/dL (0.6-1.2) L 02/20/21 10:54 Estimated GFR > 60 ml/min 02/20/21 10:54 BUN/Creatinine Ratio 44 % 02/20/21 10:54 Glucose 297 mg/dL (65-100) H 02/20/21 10:54 POC Glucose 205 mg/dL (70-105) H 02/23/21 07:54 Lactic Acid 1.70 mmol/L (0.7-2.0) 01/17/21 16:41 Calcium 9.0 mg/dL (8.4-10.2) 02/20/21 10:54 Ferritin 797.7 ng/mL (10.0-200.0) H 01/28/21 08:46 Total Bilirubin 0.30 mg/dL (0.1-1.2) 01/21/21 11:29 AST 34 units/L (5-40) 01/21/21 11:29 ALT 38 units/L (7-56) 01/21/21 11:29 Alkaline Phosphatase 117 units/L (35-129) 01/21/21 11:29 Ammonia 43.0 umol/L (25-60) 02/04/21 14:52 Lactate Dehydrogenase 556 units/L (91-180) H 01/28/21 08:46 Troponin T < 0.010 ng/mL (0.00-0.029) 01/17/21 16:41 C-Reactive Protein 0.20 mg/dL (0.00-1.30) 01/28/21 08:46 NT-Pro-B Natriuret Pep 40.88 pg/mL (0-900) 01/17/21 16:41 Total Protein 7.3 g/dL (6.3-8.2) 01/21/21 11:29 Albumin 3.4 g/dL (3.9-5) L 01/21/21 11:29 Albumin/Globulin Ratio 0.9 % 01/21/21 11:29 Procalcitonin 0.39 ng/mL (<0.15) 01/17/21 17:46 Coronavirus (PCR) Negative (Negative) 02/11/21 09:10 Estrada/IV: Voiding Method Bedside Commode Active Medications - Current Medications Current Medications: Generic Name Dose Route Start Last Admin Trade Name Freq PRN Reason Stop Dose Admin Albuterol 2 puff 02/17/21 19:51 Albuterol 8.5 Gm Mdi Inhalation IH Q4HRT PRN Shortness Of Breath Apixaban 2.5 mg 02/04/21 22:00 02/24/21 00:04 Apixaban 2.5 Mg Tab PO Not Given Q12HR [facility] Protocol Aripiprazole 15 mg 01/31/21 13:00 02/23/21 09:58 Aripiprazole 15 Mg Tab PO Not Given QDAY [facility] Ascorbic Acid 1,000 mg 02/04/21 10:00 02/24/21 00:05 Ascorbic Acid 500 Mg Tab PO Not Given BID [facility] Cholecalciferol 5,000 unit 02/04/21 10:00 02/23/21 09:59 Cholecalciferol (Vit D3) 5,000 Unit Tab PO Not Given DAILY [facility] Divalproex Sodium 500 mg 01/31/21 12:00 02/23/21 10:44 Divalproex Er 500 Mg Tab PO Not Given QDAY [facility] Famotidine 20 mg 01/18/21 10:00 02/24/21 00:05 Famotidine 20 Mg Tab PO Not Given BID [facility] Hydralazine HCl 10 mg 01/18/21 00:38 02/14/21 06:22 Hydralazine 20 Mg/1 Ml Inj IV 10 mg Q6H PRN Administration htn Hydromorphone HCl 0.5 mg 01/20/21 11:00 02/18/21 07:55 Hydromorphone 1 Mg/1 Ml Inj IV 0.5 mg Q6H PRN Administration Pain , Severe (7-10) Hydrophilic Ointment 1 applic 02/03/21 12:00 Petrolatum,White 30 Gm Oint TP PRN PRN Skin Irritation Insulin Glargine 30 units 02/22/21 22:00 02/24/21 00:05 Insulin Glargine 100 Units/Ml SUB-Q Not Given QHS [facility] Insulin Human Lispro 0 unit 02/01/21 11:30 02/24/21 07:30 Insulin Lispro 100 Unit/Ml SUB-Q Not Given ACHS [facility] Protocol Metoprolol Tartrate 12.5 mg 02/01/21 12:00 02/24/21 00:05 Metoprolol Tartrate 25 Mg Tab PO Not Given BID [facility] Mirtazapine 7.5 mg 01/21/21 22:00 02/24/21 00:05 Mirtazapine 15 Mg Tab PO Not Given QHS [facility] Oxymetazoline HCl 2 spray 02/03/21 12:00 02/03/21 13:17 Oxymetazoline 0.05% Nasal Strunk NS 2 spray Q12H PRN Administration Congestion Paliperidone 6 mg 01/31/21 13:00 02/23/21 09:58 Paliperidone Er 3 Mg Tab PO Not Given QDAY [facility] Prednisone 40 mg 02/23/21 10:00 02/23/21 09:58 Prednisone 20 Mg Tab PO Not Given QDAY [facility] Sodium Chloride 10 ml 01/18/21 10:00 02/24/21 00:04 Sodium Chloride 0.9% 10 Ml Flush Syringe IV Not Given BID [facility] Zinc Sulfate 220 mg 02/04/21 10:00 02/23/21 09:59 Zinc Sulfate 220 Mg Cap PO Not Given QDAY [facility] Nutrition/Malnutrition Assess - Dietary Evaluation Nutrition/Malnutrition Findings: Nutrition Notes Start: 01/24/21 10:40 Freq: Status: Active Protocol: Document 02/18/21 10:32 AL (Rec: 02/18/21 10:36 AL [id number]) Co-Sign 02/18/21 10:32 LP Nutrition Notes Initial or Follow up Brief Note Current Diagnosis Respiratory Failure Other Pertinent Diagnosis pneu, AMS Current Diet Cardiac/Consistent CHO Height 5 ft 4 in Weight 94 kg [place] Body Weight (kg) 54.54 BMI 35.5 Weight Status Obese Subjective/Other Information F/u for stable intakes.Per ADL and pt, she is tolerating meals at 75-100% and has a stable appetite. She states eating "very well." Nutrition Intervention Anticipated Discharge Needs: Cardiac/Consistent CHO Revisit per MD consult or patient Sign Off request:
[2021-02-25] MEDS: INSULIN LISPRO 100 UNIT/ML SUB-Q SCH ×3 (07:30→16:30)
--- NOTE | 2021-02-25 08:42 | Discharge Summary ---
Providers - Providers Date of Admission: 01/17/21 23:57 Attending physician: DANE SEGURA MD 01/18/21 00:36 Consult to Physician [CONS] Routine Comment: Consulting Provider: DRE SMALL Physician Instructions: Reason For Exam: Covid 01/18/21 09:00 Consult to Physician [CONS] Routine Comment: Consulting Provider: MAIA MANCILLA Physician Instructions: Reason For Exam: Acute hypoxic respiratory failure 01/20/21 12:15 Consult to Physician [CONS] Routine Comment: left mess./ sourav Consulting Provider: JU CONNOLLY Physician Instructions: Reason For Exam: Schizophrenia 02/01/21 17:51 Physical Therapy Evaluation and Treat [CONS] Routine Comment: Reason For Exam: weakness 02/08/21 07:36 Consult to Physician [CONS] Routine Comment: Consulting Provider: JU CONNOLLY Physician Instructions: Reason For Exam: schizophrenia. Med management 02/12/21 17:11 Physical Therapy Evaluation and Treat [CONS] Routine Comment: Reason For Exam: generalized weakness 02/22/21 23:44 Consult to Mental Health [CONS] Routine Reason For Exam: hx schizo, refusing care Hospitalization Reason for admission: Shortness of BREATH Condition: Fair Hospital course: This is a 55-year-old female with schizophrenia who presented to [facility] on 01/18 for shortness of breath, cough, subjective fever and not feeling well for the last couple days with known COVID-19 exposure. While in the emergency room patient was switched from non rebreather mask to high flow nasal cannula and his CTA chest showed no acute pulmonary embolism. Patient was admitted to the hospital service as a COVID-19 PUI with consults to [facility], infectious disease, psych. 01/18/2021 -Acute hypoxic respiratory failure requiring high flow oxygen 40 L. Nebulizer treatment -Patient is admitted for suspected Covid pneumonia. Patient is on dexamethasone, COVID-19 test is pending. Patient is on empiric antibiotics. -ID consulted, will consult pulmonary. -Patient has hyponatremia yesterday and I will repeat and if it is low I will manage accordingly -Patient has elevated D-dimer and CTA chest and bilateral Doppler ultrasound of the lower extremities pending 01/19/2021 -Acute hypoxic respiratory failure currently on BiPAP, nebulizer treatment. I will put in orders to transfer to IMCU yesterday but there was no bed. -Patient is positive for Covid and she is on Decadron and remdesivir. Actemra was ordered on 01/19/2021 -ID evaluated the patient and recommend to continue Decadron and remdesivir, also to continue ceftriaxone and azithromycin for 5 days because of the elevated procalcitonin level. Pulmonary was consulted and recommend to continue current management and add Lasix -CTA chest was done and significant for bilateral pulmonary opacities, negative for PE, Doppler ultrasound of the lower extremities was negative for DVT. -Prognosis is guarded. -Patient is currently on BiPAP and she was agitated and trying to take off the BiPAP, I put the patient on restraints. Discussed with housekeeping director to transfer the patient to IMCU and if there is no bed she need to be transferred to CCU. 01/20: Patient received 5 mg of Haldol for severe agitation and refusal to keep high flow nasal cannula in place. CCM ordered Lasix again. Psych was consulted today. Patient was on BiPAP therapy all night and RT attempted to give her a break patient is on high flow nasal cannula however she did not keep this in place and was paced back on BiPAP after receiving Haldol. She was started on Lantus today. 01/21: Patient is on BiPAP and on time examination was on 20/10 100% FiO2. Patient was started on Lantus. Psych consult completed and started on Haldol p.o. twice daily and Mirtazepin PO daily. No acute events reported overnight. Patient's D-dimer is greater than 10,000 started on prophylactic Lovenox as recent CTA chest and bilateral lower extremity Doppler ultrasound were negative. 01/22: Patient has been taken off BiPAP therapy and placed on high flow nasal cannula. Patient has been downgraded to IMCU. Patient's hyponatremia and hypochloremia have worsened. 01/23: Patient was on BiPAP overnight with FiO2 85% and IPAP 20/EPAP 10. Patient currently with high flow nasal cannula 40 L O2 with an FiO2 of 100%. Continue remdesivir and dexamethasone. Patient is s/p Actemra on 01/20. Continue empiric antibiotics per ID recommendations. Continue anticoagulation per protocol. 01/24: Patient is tachycardic and hypertensive and [facility] has opted to add amlodipine. Patient remains on 40 L 100% high flow nasal cannula. Continue remdesivir and dexamethasone. Patient is s/p Actemra on 01/20. Continue empiric antibiotics per ID recommendations. Continue anticoagulation per protocol. 01/25: Patient currently with high flow nasal cannula 40 L/min with FiO2 100%. Continue dexamethasone. Patient has completed remdesivir and s/p Actemra on 01/20. Continue full dose anticoagulation given high elevated D-dimer. Continue to trend inflammatory markers. Prognosis remains guarded. 01/26: Patient currently with high flow nasal cannula 35 L/min and FiO2 90%. Continue dexamethasone. Patient has completed remdesivir and s/p Actemra on . Continue full dose anticoagulation given high elevated D-dimer. Continue to trend inflammatory markers. Prognosis remains guarded. 01/27: Patient currently with high flow nasal cannula/Vapotherm 35 L/min O2 with FiO2 90%. Patient has completed remdesivir and s/p Actemra on 01/20. Continue full dose anticoagulation given high elevated D-dimer. Continue to trend inflammatory markers. Prognosis remains guarded. 01/28; Patient currently with high flow nasal cannula/Vapotherm 35 L/min O2 with FiO2 90%. Patient has completed remdesivir and s/p Actemra on 01/20. Continue full dose anticoagulation given high elevated D-dimer. Continue to trend inflammatory markers. Prognosis remains guarded. 01/29; patient is currently on 35 L of high flow oxygen. Prognosis guarded. Patient can be transferred to regular floor. 01/30/2021; patient is currently on 35 L of high flow oxygen, FiO2 of 65%. Patient has flat affect and did not talk to me. Patient refused most of her p.o. medications. Patient finished remdesivir, steroid. 01/31/2021; patient is on 35 L of high flow oxygen, FiO2 65%. Patient was calm and cooperative and communicative today. pulmonary is following. Patient finished remdesivir and steroid. 02/01/2021; patient was on 40 L of high flow oxygen.. I have called and discussed with her mother yesterday. Her mother told me patient was last followed at [facility] and I called facility and they told me medication she was on and I put these medications. Patient refused to eat so I put the patient on NG tube feeding for medications. Prognosis is guarded. 02/02/2021; patient is on 4 L of high flow oxygen with FiO2 of 60%. Her outpatient psych medications were reconciled. Patient was taking medications and as needed NG tube. Pulmonary is following the patient. 02/03/21: Patient noted with mild epistaxis this morning we will order some Afrin to help. Continue current management patient is on 35 L high flow. No worsening distress but still with intermittent confusion sometimes takes off the oxygen. Will repeat a trial of Lasix and monitor renal function with a.m. labs. Plan discussed with nurse at bedside. I also encouraged proning again. 02/04: Unfortunately still with hypoxia desaturating required increased to 50 L and 70% will gradually taper down. Patient due to her underlying psych history of schizophrenia is noncompliant. Daughter is working on getting guardianship over the patient. This will likely be a slow process nevertheless we will still obtain a CT of the head to ensure no other pathology. We will get an ABG and a chest x-ray today. 02/05: Patient overnight had an episode where she coughed up blood. H&H has remained stable. She has been since discontinued from full dose anticoagulants to DVT prophylactic dose. Chest x-ray shows mild worsening of congestion. Will discuss with pulmonary if patient will benefit from BiPAP during hours of sleep. Still awaiting information from family on prior psych medications that the patient was on psych review with psychiatry team as her mental status remains a deterrent and an impediment to oxygen management. We will give a trial dose of Lasix x 3 days. Will transfer to [facility] for closer monitoring 02/06: Continue supportive care, 2 more days of lasix, monitor BMP closely wean oxygen as tolerated, pulmonary input noted 02/07: Continues on High flow. Refusing medications, still with severe hypoxia, Discussed with Psych to re-evaluate the patient. 02/08: Unfortunately patient was not seen by psych yesterday and I still do not have home medication listed I asked the family and they promised to bring her in. We discussed with nursing staff to ask again. We will also reconsult psych as her underlying psych condition is precluding improvement due to her refusal of medical treatments. Patient continues on high flow 10 today will be to further wean down if tolerated. She is still refusing prone position 02/09: Patient remains on oxygen, not compliance, continues on restraints to assist with compliance, will try to wean again 02/10: Restart lasix, discussed with Leather Grader considering starting on PrECEDEX, Monitor electrolytes. Prognosis is guarded. 02/11/2021; patient is on Lasix, Precedex and Solu-Medrol 40 mg every 8 hours. Patient's blood sugar is elevated and I increase Lantus from 20-25 nightly, give her a dose of 10 units of Lantus now. Will monitor blood sugar. Prognosis very poor. 02/12/2021; patient is on 40 L of high flow oxygen, 94% FiO2. Pulmonary is following the patient and recommendations noted. Dr Mancilla Discussed with the patient and the mother about the plan of care and the high risk of her condition and refusal of care. 02/13/2021; patient was on 30 L of high flow oxygen with FiO2 of 90%. Pulmonary is following the patient. Continue IMC care. Prognosis is guarded. 02/14/2021; patient is on 30 L of high flow oxygen with FiO2 of 90%. Continue inpatient care. 02/15/2021; patient was alert and oriented. Patient states she is feeling okay today. Patient is on 30 L of high flow oxygen with FiO2 of 90%. Patient was given Lasix yesterday. Wean as tolerated. 02/16/2021; patient was alert and oriented. Patient states she is feeling better. Patient is on 25 L of high flow oxygen with FiO2 of 75%. Wean oxygen as tolerated. 02/17: Continue supportive care. Continue to wean as tolerated. Blood sugar 251 mildly elevated will adjust insulin for better control as patient still on steroids Lasix today per Pulmonary no indication to wean steroids until lower FiO2 obtained. 02/18: Agree with intermittent Lasix. Discussed with case management about possible LTAC no Medicaid bed available per documentation. We will continue to follow for now we will continue aggressive weaning of oxygen. 02/19: Patient continues on high flow receiving intermittent Lasix with pulmonary guidance. Continue current management and weaning off oxygen. Continue passive range of motion while in bed. Fall precautions. 02/20: Continue supportive care, continue under pulmonary guidance, continue pressure ulcer prevention techniques. Discussed with team to ensure patient is moving, being turned q2hrs and daily skin integrity exam 02/21: This morning found patient on 8 L nasal cannula satting 97% down to 5 L and she still satting 95 to 97% after 4 hours. I have further decreased it to 3 L of oxygen and I have discussed with nursing staff to recheck it again in the next 2 hours and also ambulate the patient on 3 L of oxygen. She does not demonstrate any further respiratory distress worsening. We will continue current management and adjust as needed. Case management looking for placement 02/22: On 3 L of oxygen patient saturation dropped to the 80s 89-91 range. Patient back up to 5 L because this was at rest. Continue steroids will discuss with ID if this can be changed to p.o. steroids. Will give additional dose of Lasix today. Encourage some physical therapy sitting up and any activity to pr event debility. 02/23: She tells me that she is here on a work related bases, she is unfortunately totally confused refusing medications which precludes management of her condition. As a result we will not make any adjustments to her insulin therapy continue steroids continue to monitor nurses will continue to ask her to give her her meds. If it becomes to the point where her blood sugar increases out of control additional measures may need to be implemented. I agree with reconsult the psych team. 02/24: We will wean oxygen further down to 3 L today monitor to see how the patient fares on diet rate with saturation. Continue diuresis. If patient remains stable on 3 L she can be discharged with tapering dose. She is seen by psych and examined Dr. Mariano of making medical decisions for herself or refusing medications. This may pose a challenge as patient is also being discharged to the care of her family. She would definitely will need a continued psych management outpatient. Compliance with her oxygen needs to be determined here prior to discharge. 02/25: Patient clinically stable but still needs oxygen. She can be discharged with Home health. Patient needs care around the clock with family as patient is not capable of making medical decisions for herself due to her clinical status DOCUMENTED BY Psych, also psych started the patient also medications for schizophrenia management. Severe COVID-19 pneumonia Acute hypoxic respiratory failure Obesity Acute metabolic encephalopathy superimposed on schizophrenia Schizophrenia Leukocytosis Hyperglycemia Schizophrenia Hypernatremia Hypercholermia Diabetes mellitus with hyperglycemia - Disposition: [id number] [facility] Final Discharge Diagnosis (Prints w/discharge instructions): Acute hypoxic respiratory failure secondary to COVID-19 Time spent for discharge: 35 MINS Core Measure Documentation - Palliative Care Palliative Care/ Comfort Measures: Not Applicable - Core Measures Any of the following diagnoses?: none Exam - Physical Exam Narrative exam: Patient was 8 L of oxygen nasal cannula The patient appeared well nourished and normally developed. Vital signs as documented. Head exam is unremarkable. No scleral icterus . Neck is without jugular venous distension, thyromegaly, or carotid bruits. Lungs decreased air entry on both lungs Cardiac exam reveals regular rate and Rhythm. Abdominal exam reveals normal bowel sounds, nontender, no organomegaly. Extremities are nonedematous and both femoral and pedal pulses are normal. [employer]: Patient was alert and oriented. X1 to person but confused place and time - Constitutional Vitals: Temp Pulse Resp BP Pulse Ox 97.9 F 112 H 20 155/86 93 02/25/21 04:31 02/25/21 04:31 02/25/21 04:31 02/25/21 04:31 02/25/21 04:31 Plan Activity: advance as tolerated, fall precautions Diet: low fat Special Instructions: record daily weights, record daily BP diary, home oxygen via (nasal cannula @ 3 liters per minute) Follow up with: FEDERICO VILLALTA,BRANDON [Other] - 3-5 Days MAIA MANCILLA MD [Staff Physician] - 7 Days JU CONNOLLY MD [Staff Physician] - 7 Days Prescriptions: Insulin Glargine [Lantus VIAL] 30 units SUB-Q QHS #10 ml Mirtazapine [Remeron 15mg TAB] 7.5 mg PO QHS #30 tablet ARIPiprazole [Abilify TAB] 15 mg PO QDAY #30 tablet predniSONE [Deltasone] 40 mg PO . DIRECTED #15 tablet Divalproex ER [Depakote ER] 500 mg PO QDAY #30 tablet Apixaban [Eliquis] 2.5 mg PO Q12HR #60 tablet Paliperidone [Invega] 6 mg PO QDAY #60 tablet Metoprolol [Lopressor TAB] 12.5 mg PO BID #60 tablet Famotidine [Pepcid] 20 mg PO BID #60 tablet Ascorbic Acid [Vitamin C] 1,000 mg PO BID #60 tablet Cholecalciferol (Vitamin D3) [Vitamin D3] 5,000 unit PO DAILY #30 tablet Zinc Sulfate 220 mg PO QDAY #30 capsule
[2021-02-25] MEDS: ARIPiprazole 15 MG TAB PO SCH (09:33)
[2021-02-25] MEDS: DIVALPROEX ER 500 MG TAB PO SCH (09:33)
[2021-02-25] MEDS: predniSONE 20 MG TAB PO SCH (09:33)
[2021-02-25] MEDS: FAMOTIDINE 20 MG TAB PO SCH (09:34)
[2021-02-25] MEDS: PALIPERIDONE ER 3 MG TAB PO SCH (09:34)
[2021-02-25] MEDS: ASCORBIC ACID 500 MG TAB PO SCH (09:34)
[2021-02-25] MEDS: METOPROLOL TARTRATE 25 MG TAB PO SCH (09:34)
[2021-02-25] MEDS: APIXABAN 2.5 MG TAB PO SCH (09:34)
[2021-02-25] MEDS: ZINC SULFATE 220 MG CAP PO SCH (09:35)
[2021-02-25] MEDS: CHOLECALCIFEROL (VIT D3) 5,000 UNIT TAB PO SCH (09:35)
--- NOTE | 2021-02-25 10:58 | Progress Note ---
Assessment and Plan 55 y/o female admitted with acute respiratory failure secondary to pneumonia, positive for Sars CoV2 02/25/21: No objection to discharge with oxygen therapy. Follow up with either PCP or us in 10-14 days with repeat walk test. 02/24/21: Prednisone taper at discharge. Appears to qualify for Home O2 if she will wear it. Would feel more comfortable with discharge on 3 liters or less. 02/21/21: Continue wean. Patient was not on oxygen prior to admit. However 3 liters is stable for discharge if patient qualifies. Can follow up in the office in the next 10-14 days once discharged. 02/20/21: Lasix again today patient is doing very well with this. would recommend checking a chemistry to make sure potassium and renal function are still ok. Continue aggressive weaning of HFNC. Close to a point where we can start weaning steroids. 02/19/21: Lasix 40mg IV again today. Patient is tolerating well. No weaning of steroids just yet but almost off HFNC. Once off, can start to wean. Still would send out referrals to LTACH just in case. Will Continue to follow with you. Continue to wean for sats >88% 02/18/21: Lasix 40mg IV x1 today. Continue to wean FiO2 for sats >88%. Suggest asking CM if patient would be a good LTACH candidate. Continue steroids for now. Will continue to follow. 02/17/21: Lasix again today. Will start to wean steroids once on lower liter flow of oxygen. Not concerned about elevated bicarb on chemistry and does not need diamox therapy at this time. Will continue to follow. 02/16/21: Lasix again today. Sats improving and oxygen requirement is coming down. Continue steroids. Last chemistry was several days ago. Will check again in am. may need BID lasix. 02/15/21: Lasix today. Continue current dose of steroids. Prone if possible. 02/14/21: lasix again today. Prone if possible. Continue steroids. Guarded Prognosis 02/13/21: ordered more lasix for today. Monitor strict I/O. Prone if patient will allow. Continue steroids. 02/12/18: continue lasix therapy daily. Prone if possible. Guarded prognosis. continue steroids 02/11/21: [facility] has ordered lasix daily for 3 days, will continue to monitor. May need to give an additional dose later tonight. Long discussion at bedside this am about he importance of wearing bipap at night and what that means to her over all health. Will discuss with family too. Overall prognosis is very guarded. Will do our best to not intubate this patient given her morbid obesity as this would increase her mortality rate tremendously. Please continue to document refusal of therapy when appropriate. 02/10/21: Lasix today, 40 IV. Will attempt precedex to see if this will help with mental state and cooperation in care. Will also restart steroids but use solumedrol 40q8 dosing. May need to consider adding back the Haldol PRN as well. Guarded prognosis. Will attempt our best to not intubate this patient as her mortality would be extremely high if intubated given her morbid obesity. 02/02/21: Lasix again today. Patient refuses to prone. Guarded prognosis. 02/01/21: Will give another 40 of lasix today. Will speak with RT about being more aggressive with weaning of oxygen. Prone if possible. 01/31/21: Increased lasix to 40 today. Prone if possible. 01/30/21: Lasix 20mg IV today. Continue Antipsychotic therapy management. Prone as tolerated if patient willing. 01/29/21: Will give lasix again today. Will change Haldol to IM since patient is refusing PO meds. 01/28/21: Will give lasix again today. Continue all other therapies. Prone if patient will and tolerate. STeroids. Guarded prognosis. 01/20/21: Gave Haldol 5 and patient has calmed down and become more appropriate, allowing us to place bipap back on. COntinue steroids and remdesivir therapy. Doubt patient will be able to prone successfully. Will try lasix today again to see if this helps. Very very guarded prognosis. 01/19/21: Continue decadron, suggest increase given patient body habitus to BID. ID consult for Remdesivir therapy and to see if she is a candidate for Actemra. Prone as tolerated during the day and sleep prone at night. Will give lasix again today. Guarded prognosis. 1. Prone 2. Lasix 3. Agree with steroids 4. Follow up COVID testing Guarded prognosis Subjective Date of service: 02/25/21 Principal diagnosis: Covid-19 Interval history: No acute events. Being discharged today. Objective Vital Signs - 12hr 02/25/21 02/25/21 02/25/21 04:00 04:31 10:00 Temperature 97.9 F Pulse Rate 113 H 112 H Respiratory 20 Rate Blood Pressure 155/86 O2 Sat by Pulse 93 92 Oximetry Constitutional: no acute distress, alert Eyes: non-icteric ENT: oropharynx moist Neck: supple, other (large in circumference) Effort: normal Ascultation: Bilateral: clear, diminished breath sounds Cardiovascular: other (tachy, RR; no mrg) Gastrointestinal: normoactive bowel sounds, soft, non-tender, non-distended Integumentary: normal Extremities: no cyanosis, no edema, pink and warm Neurologic: normal mental status, non-focal exam, pupils equal and round Psychiatric: mood appropriate, affect normal CBC and BMP: 02/20/21 10:54 02/20/21 10:54 ABG, PT/INR, D-dimer: ABG ABG pH 7.309 pH Units (7.350-7.450) L 02/10/21 09:30 ABG pCO2 59.4 mm Hg 02/10/21 09:30 ABG pO2 71.2 mm Hg (80.0-90.0) L 02/10/21 09:30 ABG O2 Saturation 92.4 % (95.0-99.0) L 02/10/21 09:30 PT/INR, D-dimer PT 13.6 Sec. (12.2-14.9) 02/04/21 14:52 INR 1.06 (0.87-1.13) 02/04/21 14:52 D-Dimer 1884.49 ng/mlDDU (0-234) H 01/28/21 08:46 Abnormal lab findings: Abnormal Labs 01/17/21 01/17/21 01/17/21 09:25 16:41 16:41 WBC RBC 5.23 H Hgb MCV 76 L MCH 24 L RDW Plt Count Lymph % (Auto) 9.4 L [place] % (Auto) Lymph # (Auto) 0.8 L Seg Neutrophils % 85.4 H Seg Neuts % (Manual) Lymphocytes % (Manual) Seg Neutrophils # Seg Neutrophils # Man D-Dimer ABG pH ABG pO2 ABG HCO3 ABG O2 Saturation ABG Base Excess ABG Hemoglobin Oxyhemoglobin Sodium 128 L Chloride 90.8 L Carbon Dioxide BUN Creatinine Glucose 372 H POC Glucose Calcium Ferritin AST 98 H Lactate Dehydrogenase C-Reactive Protein Total Protein Albumin 3.2 L Coronavirus (PCR) Positive A 01/17/21 01/17/21 01/17/21 17:46 17:46 17:46 WBC RBC Hgb MCV MCH RDW Plt Count Lymph % (Auto) [place] % (Auto) Lymph # (Auto) Seg Neutrophils % Seg Neuts % (Manual) Lymphocytes % (Manual) Seg Neutrophils # Seg Neutrophils # Man D-Dimer 1058.54 H ABG pH ABG pO2 ABG HCO3 ABG O2 Saturation ABG Base Excess ABG Hemoglobin Oxyhemoglobin Sodium Chloride Carbon Dioxide BUN Creatinine Glucose 369 H POC Glucose Calcium Ferritin 668.4 H AST Lactate Dehydrogenase 519 H C-Reactive Protein 19.20 H Total Protein Albumin Coronavirus (PCR) 01/18/21 01/18/21 01/19/21 09:01 17:18 05:11 WBC 14.2 H RBC Hgb MCV 74 L MCH 23 L RDW Plt Count Lymph % (Auto) [place] % (Auto) Lymph # (Auto) Seg Neutrophils % Seg Neuts % (Manual) 88.0 H Lymphocytes % (Manual) 10.0 L Seg Neutrophils # Seg Neutrophils # Man 12.5 H D-Dimer ABG pH 7.461 H ABG pO2 53.1 L ABG HCO3 ABG O2 Saturation 89.4 L ABG Base Excess ABG Hemoglobin Oxyhemoglobin 88.0 L Sodium 132 L Chloride 93.6 L Carbon Dioxide BUN 18 H Creatinine Glucose 367 H POC Glucose Calcium 7.8 L Ferritin AST Lactate Dehydrogenase C-Reactive Protein Total Protein Albumin Coronavirus (PCR) 01/19/21 01/19/21 01/19/21 05:11 11:06 14:43 WBC RBC Hgb MCV MCH RDW Plt Count Lymph % (Auto) [place] % (Auto) Lymph # (Auto) Seg Neutrophils % Seg Neuts % (Manual) Lymphocytes % (Manual) Seg Neutrophils # Seg Neutrophils # Man D-Dimer ABG pH ABG pO2 ABG HCO3 ABG O2 Saturation ABG Base Excess ABG Hemoglobin Oxyhemoglobin Sodium Chloride Carbon Dioxide BUN 18 H Creatinine Glucose 304 H 379 H POC Glucose 382 H Calcium 8.3 L Ferritin AST 92 H 96 H Lactate Dehydrogenase C-Reactive Protein Total Protein Albumin 3.0 L 3.0 L Coronavirus (PCR) 01/19/21 01/19/21 01/20/21 16:18 22:18 07:31 WBC RBC Hgb MCV MCH RDW Plt Count Lymph % (Auto) [place] % (Auto) Lymph # (Auto) Seg Neutrophils % Seg Neuts % (Manual) Lymphocytes % (Manual) Seg Neutrophils # Seg Neutrophils # Man D-Dimer ABG pH ABG pO2 ABG HCO3 ABG O2 Saturation ABG Base Excess ABG Hemoglobin Oxyhemoglobin Sodium Chloride Carbon Dioxide BUN Creatinine Glucose POC Glucose 374 H 341 H 344 H Calcium Ferritin AST Lactate Dehydrogenase C-Reactive Protein Total Protein Albumin Coronavirus (PCR) 01/20/21 01/20/21 01/20/21 07:33 12:14 13:54 WBC RBC Hgb MCV MCH RDW Plt Count Lymph % (Auto) [place] % (Auto) Lymph # (Auto) Seg Neutrophils % Seg Neuts % (Manual) Lymphocytes % (Manual) Seg Neutrophils # Seg Neutrophils # Man D-Dimer ABG pH ABG pO2 ABG HCO3 ABG O2 Saturation ABG Base Excess ABG Hemoglobin Oxyhemoglobin Sodium Chloride Carbon Dioxide BUN 32 H 31 H Creatinine Glucose 343 H 396 H POC Glucose 365 H Calcium Ferritin AST 57 H 54 H Lactate Dehydrogenase C-Reactive Protein Total Protein 8.3 H Albumin 2.7 L 3.1 L Coronavirus (PCR) 01/20/21 01/20/21 01/21/21 18:28 21:25 04:45 WBC RBC Hgb MCV MCH RDW Plt Count Lymph % (Auto) [place] % (Auto) Lymph # (Auto) Seg Neutrophils % Seg Neuts % (Manual) Lymphocytes % (Manual) Seg Neutrophils # Seg Neutrophils # Man D-Dimer ABG pH ABG pO2 ABG HCO3 ABG O2 Saturation ABG Base Excess ABG Hemoglobin Oxyhemoglobin Sodium Chloride Carbon Dioxide 31 H BUN 41 H Creatinine Glucose 377 H POC Glucose 403 H 340 H Calcium Ferritin AST Lactate Dehydrogenase C-Reactive Protein Total Protein 8.3 H Albumin 3.0 L Coronavirus (PCR) 01/21/21 01/21/21 01/21/21 04:45 04:45 04:45 WBC RBC Hgb MCV MCH RDW Plt Count Lymph % (Auto) [place] % (Auto) Lymph # (Auto) Seg Neutrophils % Seg Neuts % (Manual) Lymphocytes % (Manual) Seg Neutrophils # Seg Neutrophils # Man D-Dimer > 74324 H ABG pH ABG pO2 ABG HCO3 ABG O2 Saturation ABG Base Excess ABG Hemoglobin Oxyhemoglobin Sodium Chloride Carbon Dioxide BUN Creatinine Glucose POC Glucose Calcium Ferritin 1688.0 H AST Lactate Dehydrogenase 649 H C-Reactive Protein 17.00 H Total Protein Albumin Coronavirus (PCR) 01/21/21 01/21/21 01/21/21 09:45 11:29 12:09 WBC RBC Hgb MCV MCH RDW Plt Count Lymph % (Auto) [place] % (Auto) Lymph # (Auto) Seg Neutrophils % Seg Neuts % (Manual) Lymphocytes % (Manual) Seg Neutrophils # Seg Neutrophils # Man D-Dimer ABG pH ABG pO2 ABG HCO3 ABG O2 Saturation ABG Base Excess ABG Hemoglobin Oxyhemoglobin Sodium 151 H Chloride Carbon Dioxide BUN 40 H Creatinine Glucose 412 H POC Glucose 401 H 372 H Calcium Ferritin AST Lactate Dehydrogenase C-Reactive Protein Total Protein Albumin 3.4 L Coronavirus (PCR) 01/21/21 01/21/21 01/22/21 18:26 21:09 02:00 WBC RBC Hgb MCV MCH RDW Plt Count Lymph % (Auto) [place] % (Auto) Lymph # (Auto) Seg Neutrophils % Seg Neuts % (Manual) Lymphocytes % (Manual) Seg Neutrophils # Seg Neutrophils # Man D-Dimer ABG pH ABG pO2 ABG HCO3 ABG O2 Saturation ABG Base Excess ABG Hemoglobin Oxyhemoglobin Sodium Chloride Carbon Dioxide BUN Creatinine Glucose POC Glucose 376 H 322 H 231 H Calcium Ferritin AST Lactate Dehydrogenase C-Reactive Protein Total Protein Albumin Coronavirus (PCR) 01/22/21 01/22/21 01/22/21 05:24 08:25 08:25 WBC RBC 5.44 H Hgb MCV 75 L MCH 23 L RDW 15.5 H Plt Count Lymph % (Auto) [place] % (Auto) Lymph # (Auto) Seg Neutrophils % Seg Neuts % (Manual) Lymphocytes % (Manual) Seg Neutrophils # Seg Neutrophils # Man D-Dimer ABG pH ABG pO2 ABG HCO3 ABG O2 Saturation ABG Base Excess ABG Hemoglobin Oxyhemoglobin Sodium 155 H Chloride 112.4 H Carbon Dioxide BUN 33 H Creatinine Glucose 274 H POC Glucose 275 H Calcium Ferritin AST Lactate Dehydrogenase C-Reactive Protein Total Protein Albumin Coronavirus (PCR) 01/22/21 01/22/21 01/22/21 11:53 16:03 21:41 WBC RBC Hgb MCV MCH RDW Plt Count Lymph % (Auto) [place] % (Auto) Lymph # (Auto) Seg Neutrophils % Seg Neuts % (Manual) Lymphocytes % (Manual) Seg Neutrophils # Seg Neutrophils # Man D-Dimer ABG pH ABG pO2 ABG HCO3 ABG O2 Saturation ABG Base Excess ABG Hemoglobin Oxyhemoglobin Sodium Chloride Carbon Dioxide BUN Creatinine Glucose POC Glucose 265 H 293 H 279 H Calcium Ferritin AST Lactate Dehydrogenase C-Reactive Protein Total Protein Albumin Coronavirus (PCR) 01/23/21 01/23/21 01/23/21 02:03 05:46 05:59 WBC RBC Hgb MCV MCH RDW Plt Count Lymph % (Auto) [place] % (Auto) Lymph # (Auto) Seg Neutrophils % Seg Neuts % (Manual) Lymphocytes % (Manual) Seg Neutrophils # Seg Neutrophils # Man D-Dimer ABG pH ABG pO2 ABG HCO3 ABG O2 Saturation ABG Base Excess ABG Hemoglobin Oxyhemoglobin Sodium Chloride Carbon Dioxide BUN Creatinine Glucose POC Glucose 268 H 303 H Calcium Ferritin 1116.0 H AST Lactate Dehydrogenase C-Reactive Protein Total Protein Albumin Coronavirus (PCR) 01/23/21 01/23/21 01/23/21 05:59 07:42 09:11 WBC RBC Hgb MCV MCH RDW Plt Count Lymph % (Auto) [place] % (Auto) Lymph # (Auto) Seg Neutrophils % Seg Neuts % (Manual) Lymphocytes % (Manual) Seg Neutrophils # Seg Neutrophils # Man D-Dimer ABG pH ABG pO2 ABG HCO3 ABG O2 Saturation ABG Base Excess ABG Hemoglobin Oxyhemoglobin Sodium Chloride Carbon Dioxide BUN Creatinine Glucose POC Glucose 291 H 285 H Calcium Ferritin AST Lactate Dehydrogenase 680 H C-Reactive Protein 5.80 H Total Protein Albumin Coronavirus (PCR) 01/23/21 01/23/21 01/23/21 14:06 17:05 17:59 WBC RBC Hgb MCV MCH RDW Plt Count Lymph % (Auto) [place] % (Auto) Lymph # (Auto) Seg Neutrophils % Seg Neuts % (Manual) Lymphocytes % (Manual) Seg Neutrophils # Seg Neutrophils # Man D-Dimer ABG pH ABG pO2 ABG HCO3 ABG O2 Saturation ABG Base Excess ABG Hemoglobin Oxyhemoglobin Sodium Chloride Carbon Dioxide BUN Creatinine Glucose POC Glucose 228 H 300 H 278 H Calcium Ferritin AST Lactate Dehydrogenase C-Reactive Protein Total Protein Albumin Coronavirus (PCR) 01/23/21 01/24/21 01/24/21 21:43 02:14 05:15 WBC RBC Hgb MCV MCH RDW Plt Count Lymph % (Auto) [place] % (Auto) Lymph # (Auto) Seg Neutrophils % Seg Neuts % (Manual) Lymphocytes % (Manual) Seg Neutrophils # Seg Neutrophils # Man D-Dimer ABG pH ABG pO2 ABG HCO3 ABG O2 Saturation ABG Base Excess ABG Hemoglobin Oxyhemoglobin Sodium Chloride Carbon Dioxide BUN Creatinine Glucose POC Glucose 223 H 427 H 392 H Calcium Ferritin AST Lactate Dehydrogenase C-Reactive Protein Total Protein Albumin Coronavirus (PCR) 01/24/21 01/24/21 01/24/21 07:03 07:03 09:10 WBC RBC 5.49 H Hgb MCV 75 L MCH 23 L RDW Plt Count Lymph % (Auto) 7.0 L [place] % (Auto) Lymph # (Auto) 0.5 L Seg Neutrophils % 86.1 H Seg Neuts % (Manual) Lymphocytes % (Manual) Seg Neutrophils # Seg Neutrophils # Man D-Dimer ABG pH ABG pO2 ABG HCO3 ABG O2 Saturation ABG Base Excess ABG Hemoglobin Oxyhemoglobin Sodium 149 H Chloride 111.4 H Carbon Dioxide BUN 24 H Creatinine Glucose 339 H POC Glucose 284 H Calcium Ferritin AST Lactate Dehydrogenase C-Reactive Protein Total Protein Albumin Coronavirus (PCR) 01/24/21 01/24/21 01/24/21 13:47 18:30 21:58 WBC RBC Hgb MCV MCH RDW Plt Count Lymph % (Auto) [place] % (Auto) Lymph # (Auto) Seg Neutrophils % Seg Neuts % (Manual) Lymphocytes % (Manual) Seg Neutrophils # Seg Neutrophils # Man D-Dimer ABG pH ABG pO2 ABG HCO3 ABG O2 Saturation ABG Base Excess ABG Hemoglobin Oxyhemoglobin Sodium Chloride Carbon Dioxide BUN Creatinine Glucose POC Glucose 317 H 180 H 262 H Calcium Ferritin AST Lactate Dehydrogenase C-Reactive Protein Total Protein Albumin Coronavirus (PCR) 01/25/21 01/25/21 01/25/21 01:22 05:35 08:36 WBC RBC Hgb MCV MCH RDW Plt Count Lymph % (Auto) [place] % (Auto) Lymph # (Auto) Seg Neutrophils % Seg Neuts % (Manual) Lymphocytes % (Manual) Seg Neutrophils # Seg Neutrophils # Man D-Dimer ABG pH ABG pO2 ABG HCO3 ABG O2 Saturation ABG Base Excess ABG Hemoglobin Oxyhemoglobin Sodium Chloride Carbon Dioxide BUN Creatinine Glucose POC Glucose 280 H 243 H 216 H Calcium Ferritin AST Lactate Dehydrogenase C-Reactive Protein Total Protein Albumin Coronavirus (PCR) 01/25/21 01/25/21 01/25/21 15:14 15:14 15:14 WBC RBC Hgb MCV MCH RDW Plt Count Lymph % (Auto) [place] % (Auto) Lymph # (Auto) Seg Neutrophils % Seg Neuts % (Manual) Lymphocytes % (Manual) Seg Neutrophils # Seg Neutrophils # Man D-Dimer 6312.54 H ABG pH ABG pO2 ABG HCO3 ABG O2 Saturation ABG Base Excess ABG Hemoglobin Oxyhemoglobin Sodium 146 H Chloride 108.1 H Carbon Dioxide BUN 19 H Creatinine Glucose 287 H POC Glucose Calcium 8.3 L Ferritin 869.5 H AST Lactate Dehydrogenase 685 H C-Reactive Protein Total Protein Albumin Coronavirus (PCR) 01/25/21 01/25/21 01/26/21 16:06 21:18 01:47 WBC RBC Hgb MCV MCH RDW Plt Count Lymph % (Auto) [place] % (Auto) Lymph # (Auto) Seg Neutrophils % Seg Neuts % (Manual) Lymphocytes % (Manual) Seg Neutrophils # Seg Neutrophils # Man D-Dimer ABG pH ABG pO2 ABG HCO3 ABG O2 Saturation ABG Base Excess ABG Hemoglobin Oxyhemoglobin Sodium Chloride Carbon Dioxide BUN Creatinine Glucose POC Glucose 267 H 197 H 255 H Calcium Ferritin AST Lactate Dehydrogenase C-Reactive Protein Total Protein Albumin Coronavirus (PCR) 01/26/21 01/26/21 01/26/21 05:23 05:23 05:23 WBC RBC Hgb MCV MCH RDW Plt Count Lymph % (Auto) [place] % (Auto) Lymph # (Auto) Seg Neutrophils % Seg Neuts % (Manual) Lymphocytes % (Manual) Seg Neutrophils # Seg Neutrophils # Man D-Dimer 5809.58 H ABG pH ABG pO2 ABG HCO3 ABG O2 Saturation ABG Base Excess ABG Hemoglobin Oxyhemoglobin Sodium 149 H Chloride 109.3 H Carbon Dioxide BUN 24 H Creatinine Glucose 362 H POC Glucose Calcium Ferritin 877.1 H AST Lactate Dehydrogenase 655 H C-Reactive Protein Total Protein Albumin Coronavirus (PCR) 01/26/21 01/26/21 01/26/21 05:23 06:06 09:28 WBC RBC 5.49 H Hgb MCV 77 L MCH 23 L RDW Plt Count Lymph % (Auto) [place] % (Auto) Lymph # (Auto) 0.8 L Seg Neutrophils % 78.9 H Seg Neuts % (Manual) Lymphocytes % (Manual) Seg Neutrophils # Seg Neutrophils # Man D-Dimer ABG pH ABG pO2 ABG HCO3 ABG O2 Saturation ABG Base Excess ABG Hemoglobin Oxyhemoglobin Sodium Chloride Carbon Dioxide BUN Creatinine Glucose POC Glucose 387 H 308 H Calcium Ferritin AST Lactate Dehydrogenase C-Reactive Protein Total Protein Albumin Coronavirus (PCR) 01/26/21 01/26/21 01/27/21 15:56 21:28 02:51 WBC RBC Hgb MCV MCH RDW Plt Count Lymph % (Auto) [place] % (Auto) Lymph # (Auto) Seg Neutrophils % Seg Neuts % (Manual) Lymphocytes % (Manual) Seg Neutrophils # Seg Neutrophils # Man D-Dimer ABG pH ABG pO2 ABG HCO3 ABG O2 Saturation ABG Base Excess ABG Hemoglobin Oxyhemoglobin Sodium Chloride Carbon Dioxide BUN Creatinine Glucose POC Glucose 172 H 316 H 267 H Calcium Ferritin AST Lactate Dehydrogenase C-Reactive Protein Total Protein Albumin Coronavirus (PCR) 01/27/21 01/27/21 01/27/21 04:22 04:22 04:22 WBC RBC Hgb MCV MCH RDW Plt Count Lymph % (Auto) [place] % (Auto) Lymph # (Auto) Seg Neutrophils % Seg Neuts % (Manual) Lymphocytes % (Manual) Seg Neutrophils # Seg Neutrophils # Man D-Dimer 4046.06 H ABG pH ABG pO2 ABG HCO3 ABG O2 Saturation ABG Base Excess ABG Hemoglobin Oxyhemoglobin Sodium Chloride 107.7 H Carbon Dioxide BUN 30 H Creatinine Glucose 281 H POC Glucose Calcium Ferritin 812.2 H AST Lactate Dehydrogenase 570 H C-Reactive Protein Total Protein Albumin Coronavirus (PCR) 01/27/21 01/27/21 01/27/21 04:22 05:55 12:00 WBC RBC 5.15 H Hgb MCV 76 L MCH 23 L RDW 15.5 H Plt Count Lymph % (Auto) 12.7 L [place] % (Auto) Lymph # (Auto) 0.9 L Seg Neutrophils % 81.3 H Seg Neuts % (Manual) Lymphocytes % (Manual) Seg Neutrophils # Seg Neutrophils # Man D-Dimer ABG pH ABG pO2 ABG HCO3 ABG O2 Saturation ABG Base Excess ABG Hemoglobin Oxyhemoglobin Sodium Chloride Carbon Dioxide BUN Creatinine Glucose POC Glucose 275 H 121 H Calcium Ferritin AST Lactate Dehydrogenase C-Reactive Protein Total Protein Albumin Coronavirus (PCR) 01/27/21 01/27/21 01/28/21 17:32 21:23 02:08 WBC RBC Hgb MCV MCH RDW Plt Count Lymph % (Auto) [place] % (Auto) Lymph # (Auto) Seg Neutrophils % Seg Neuts % (Manual) Lymphocytes % (Manual) Seg Neutrophils # Seg Neutrophils # Man D-Dimer ABG pH ABG pO2 ABG HCO3 ABG O2 Saturation ABG Base Excess ABG Hemoglobin Oxyhemoglobin Sodium Chloride Carbon Dioxide BUN Creatinine Glucose POC Glucose 195 H 179 H 210 H Calcium Ferritin AST Lactate Dehydrogenase C-Reactive Protein Total Protein Albumin Coronavirus (PCR) 01/28/21 01/28/21 01/28/21 05:09 08:44 08:46 WBC RBC Hgb MCV MCH RDW Plt Count Lymph % (Auto) [place] % (Auto) Lymph # (Auto) Seg Neutrophils % Seg Neuts % (Manual) Lymphocytes % (Manual) Seg Neutrophils # Seg Neutrophils # Man D-Dimer 1884.49 H ABG pH ABG pO2 ABG HCO3 ABG O2 Saturation ABG Base Excess ABG Hemoglobin Oxyhemoglobin Sodium Chloride Carbon Dioxide BUN Creatinine Glucose POC Glucose 202 H 191 H Calcium Ferritin AST Lactate Dehydrogenase C-Reactive Protein Total Protein Albumin Coronavirus (PCR) 01/28/21 01/28/21 01/28/21 08:46 08:46 12:18 WBC RBC Hgb MCV MCH RDW Plt Count Lymph % (Auto) [place] % (Auto) Lymph # (Auto) Seg Neutrophils % Seg Neuts % (Manual) Lymphocytes % (Manual) Seg Neutrophils # Seg Neutrophils # Man D-Dimer ABG pH ABG pO2 ABG HCO3 ABG O2 Saturation ABG Base Excess ABG Hemoglobin Oxyhemoglobin Sodium Chloride Carbon Dioxide BUN Creatinine Glucose POC Glucose 221 H Calcium Ferritin 797.7 H AST Lactate Dehydrogenase 556 H C-Reactive Protein Total Protein Albumin Coronavirus (PCR) 01/28/21 01/28/21 01/29/21 18:21 21:45 01:48 WBC RBC Hgb MCV MCH RDW Plt Count Lymph % (Auto) [place] % (Auto) Lymph # (Auto) Seg Neutrophils % Seg Neuts % (Manual) Lymphocytes % (Manual) Seg Neutrophils # Seg Neutrophils # Man D-Dimer ABG pH ABG pO2 ABG HCO3 ABG O2 Saturation ABG Base Excess ABG Hemoglobin Oxyhemoglobin Sodium Chloride Carbon Dioxide BUN Creatinine Glucose POC Glucose 214 H 148 H 248 H Calcium Ferritin AST Lactate Dehydrogenase C-Reactive Protein Total Protein Albumin Coronavirus (PCR) 01/29/21 01/29/21 01/29/21 05:17 10:17 11:39 WBC RBC Hgb MCV MCH RDW Plt Count Lymph % (Auto) [place] % (Auto) Lymph # (Auto) Seg Neutrophils % Seg Neuts % (Manual) Lymphocytes % (Manual) Seg Neutrophils # Seg Neutrophils # Man D-Dimer ABG pH ABG pO2 ABG HCO3 ABG O2 Saturation ABG Base Excess ABG Hemoglobin Oxyhemoglobin Sodium Chloride Carbon Dioxide BUN Creatinine Glucose POC Glucose 256 H 193 H 177 H Calcium Ferritin AST Lactate Dehydrogenase C-Reactive Protein Total Protein Albumin Coronavirus (PCR) 01/29/21 01/29/21 01/30/21 18:06 20:24 06:07 WBC RBC Hgb MCV MCH RDW Plt Count Lymph % (Auto) [place] % (Auto) Lymph # (Auto) Seg Neutrophils % Seg Neuts % (Manual) Lymphocytes % (Manual) Seg Neutrophils # Seg Neutrophils # Man D-Dimer ABG pH ABG pO2 ABG HCO3 ABG O2 Saturation ABG Base Excess ABG Hemoglobin Oxyhemoglobin Sodium Chloride Carbon Dioxide BUN Creatinine Glucose POC Glucose 107 H 114 H 114 H Calcium Ferritin AST Lactate Dehydrogenase C-Reactive Protein Total Protein Albumin Coronavirus (PCR) 01/30/21 01/30/21 01/30/21 12:08 16:11 21:19 WBC RBC Hgb MCV MCH RDW Plt Count Lymph % (Auto) [place] % (Auto) Lymph # (Auto) Seg Neutrophils % Seg Neuts % (Manual) Lymphocytes % (Manual) Seg Neutrophils # Seg Neutrophils # Man D-Dimer ABG pH ABG pO2 ABG HCO3 ABG O2 Saturation ABG Base Excess ABG Hemoglobin Oxyhemoglobin Sodium Chloride Carbon Dioxide BUN Creatinine Glucose POC Glucose 178 H 142 H 244 H Calcium Ferritin AST Lactate Dehydrogenase C-Reactive Protein Total Protein Albumin Coronavirus (PCR) 01/31/21 01/31/21 01/31/21 05:30 06:42 07:50 WBC RBC Hgb MCV MCH RDW Plt Count Lymph % (Auto) [place] % (Auto) Lymph # (Auto) Seg Neutrophils % Seg Neuts % (Manual) Lymphocytes % (Manual) Seg Neutrophils # Seg Neutrophils # Man D-Dimer ABG pH ABG pO2 ABG HCO3 ABG O2 Saturation ABG Base Excess ABG Hemoglobin Oxyhemoglobin Sodium Chloride Carbon Dioxide BUN 20 H Creatinine Glucose 160 H POC Glucose 164 H 152 H Calcium 8.0 L Ferritin AST Lactate Dehydrogenase C-Reactive Protein Total Protein Albumin Coronavirus (PCR) 01/31/21 01/31/21 01/31/21 11:40 16:37 21:01 WBC RBC Hgb MCV MCH RDW Plt Count Lymph % (Auto) [place] % (Auto) Lymph # (Auto) Seg Neutrophils % Seg Neuts % (Manual) Lymphocytes % (Manual) Seg Neutrophils # Seg Neutrophils # Man D-Dimer ABG pH ABG pO2 ABG HCO3 ABG O2 Saturation ABG Base Excess ABG Hemoglobin Oxyhemoglobin Sodium Chloride Carbon Dioxide BUN Creatinine Glucose POC Glucose 129 H 141 H 125 H Calcium Ferritin AST Lactate Dehydrogenase C-Reactive Protein Total Protein Albumin Coronavirus (PCR) 02/01/21 02/01/21 02/01/21 06:26 11:15 16:11 WBC RBC Hgb MCV MCH RDW Plt Count Lymph % (Auto) [place] % (Auto) Lymph # (Auto) Seg Neutrophils % Seg Neuts % (Manual) Lymphocytes % (Manual) Seg Neutrophils # Seg Neutrophils # Man D-Dimer ABG pH ABG pO2 ABG HCO3 ABG O2 Saturation ABG Base Excess ABG Hemoglobin Oxyhemoglobin Sodium Chloride Carbon Dioxide BUN Creatinine Glucose POC Glucose 136 H 260 H 240 H Calcium Ferritin AST Lactate Dehydrogenase C-Reactive Protein Total Protein Albumin Coronavirus (PCR) 02/01/21 02/02/21 02/02/21 22:32 07:15 07:56 WBC 3.1 L RBC Hgb MCV 75 L MCH 23 L RDW Plt Count Lymph % (Auto) 44.9 H [place] % (Auto) 9.2 H Lymph # (Auto) Seg Neutrophils % Seg Neuts % (Manual) Lymphocytes % (Manual) Seg Neutrophils # 1.3 L Seg Neutrophils # Man D-Dimer ABG pH ABG pO2 ABG HCO3 ABG O2 Saturation ABG Base Excess ABG Hemoglobin Oxyhemoglobin Sodium Chloride Carbon Dioxide BUN Creatinine Glucose POC Glucose 298 H 164 H Calcium Ferritin AST Lactate Dehydrogenase C-Reactive Protein Total Protein Albumin Coronavirus (PCR) 02/02/21 02/02/21 02/02/21 07:56 11:35 16:07 WBC RBC Hgb MCV MCH RDW Plt Count Lymph % (Auto) [place] % (Auto) Lymph # (Auto) Seg Neutrophils % Seg Neuts % (Manual) Lymphocytes % (Manual) Seg Neutrophils # Seg Neutrophils # Man D-Dimer ABG pH ABG pO2 ABG HCO3 ABG O2 Saturation ABG Base Excess ABG Hemoglobin Oxyhemoglobin Sodium Chloride Carbon Dioxide 31 H BUN Creatinine 0.4 L Glucose 159 H POC Glucose 297 H 252 H Calcium 8.2 L Ferritin AST Lactate Dehydrogenase C-Reactive Protein Total Protein Albumin Coronavirus (PCR) 02/02/21 02/03/21 02/03/21 22:33 17:04 22:17 WBC RBC Hgb MCV MCH RDW Plt Count Lymph % (Auto) [place] % (Auto) Lymph # (Auto) Seg Neutrophils % Seg Neuts % (Manual) Lymphocytes % (Manual) Seg Neutrophils # Seg Neutrophils # Man D-Dimer ABG pH ABG pO2 ABG HCO3 ABG O2 Saturation ABG Base Excess ABG Hemoglobin Oxyhemoglobin Sodium Chloride Carbon Dioxide BUN Creatinine Glucose POC Glucose 257 H 247 H 278 H Calcium Ferritin AST Lactate Dehydrogenase C-Reactive Protein Total Protein Albumin Coronavirus (PCR) 02/04/21 02/04/21 02/04/21 05:41 07:55 11:56 WBC RBC Hgb MCV MCH RDW Plt Count Lymph % (Auto) [place] % (Auto) Lymph # (Auto) Seg Neutrophils % Seg Neuts % (Manual) Lymphocytes % (Manual) Seg Neutrophils # Seg Neutrophils # Man D-Dimer ABG pH ABG pO2 ABG HCO3 ABG O2 Saturation ABG Base Excess ABG Hemoglobin Oxyhemoglobin Sodium Chloride Carbon Dioxide 31 H BUN 19 H Creatinine 0.5 L Glucose 184 H POC Glucose 182 H 227 H Calcium Ferritin AST Lactate Dehydrogenase C-Reactive Protein Total Protein Albumin Coronavirus (PCR) 02/04/21 02/04/21 02/04/21 12:45 14:52 16:45 WBC 4.0 L RBC Hgb MCV 77 L MCH 24 L RDW 15.5 H Plt Count Lymph % (Auto) [place] % (Auto) Lymph # (Auto) Seg Neutrophils % Seg Neuts % (Manual) Lymphocytes % (Manual) Seg Neutrophils # Seg Neutrophils # Man D-Dimer ABG pH ABG pO2 65.6 L ABG HCO3 30.8 H ABG O2 Saturation 94.0 L ABG Base Excess 5.5 H ABG Hemoglobin 10.3 L Oxyhemoglobin 92.3 L Sodium Chloride Carbon Dioxide BUN Creatinine Glucose POC Glucose 194 H Calcium Ferritin AST Lactate Dehydrogenase C-Reactive Protein Total Protein Albumin Coronavirus (PCR) 02/04/21 02/05/21 02/05/21 22:00 06:55 07:49 WBC RBC Hgb 10.0 L MCV MCH RDW Plt Count Lymph % (Auto) [place] % (Auto) Lymph # (Auto) Seg Neutrophils % Seg Neuts % (Manual) Lymphocytes % (Manual) Seg Neutrophils # Seg Neutrophils # Man D-Dimer ABG pH ABG pO2 ABG HCO3 ABG O2 Saturation ABG Base Excess ABG Hemoglobin Oxyhemoglobin Sodium Chloride Carbon Dioxide BUN Creatinine Glucose POC Glucose 281 H 204 H Calcium Ferritin AST Lactate Dehydrogenase C-Reactive Protein Total Protein Albumin Coronavirus (PCR) 02/05/21 02/05/21 02/05/21 11:23 16:13 16:22 WBC RBC Hgb 10.0 L MCV MCH RDW Plt Count Lymph % (Auto) [place] % (Auto) Lymph # (Auto) Seg Neutrophils % Seg Neuts % (Manual) Lymphocytes % (Manual) Seg Neutrophils # Seg Neutrophils # Man D-Dimer ABG pH ABG pO2 ABG HCO3 ABG O2 Saturation ABG Base Excess ABG Hemoglobin Oxyhemoglobin Sodium Chloride Carbon Dioxide BUN Creatinine Glucose POC Glucose 264 H 202 H Calcium Ferritin AST Lactate Dehydrogenase C-Reactive Protein Total Protein Albumin Coronavirus (PCR) 02/05/21 02/06/21 02/06/21 21:14 04:43 04:43 WBC 4.0 L RBC Hgb 10.0 L MCV 76 L MCH 23 L RDW 15.7 H Plt Count Lymph % (Auto) [place] % (Auto) Lymph # (Auto) Seg Neutrophils % Seg Neuts % (Manual) Lymphocytes % (Manual) Seg Neutrophils # Seg Neutrophils # Man D-Dimer ABG pH ABG pO2 ABG HCO3 ABG O2 Saturation ABG Base Excess ABG Hemoglobin Oxyhemoglobin Sodium Chloride Carbon Dioxide 32 H BUN Creatinine 0.4 L Glucose 163 H POC Glucose 180 H Calcium 8.3 L Ferritin AST Lactate Dehydrogenase C-Reactive Protein Total Protein Albumin Coronavirus (PCR) 02/06/21 02/06/21 02/06/21 08:01 11:44 16:11 WBC RBC Hgb MCV MCH RDW Plt Count Lymph % (Auto) [place] % (Auto) Lymph # (Auto) Seg Neutrophils % Seg Neuts % (Manual) Lymphocytes % (Manual) Seg Neutrophils # Seg Neutrophils # Man D-Dimer ABG pH ABG pO2 ABG HCO3 ABG O2 Saturation ABG Base Excess ABG Hemoglobin Oxyhemoglobin Sodium Chloride Carbon Dioxide BUN Creatinine Glucose POC Glucose 155 H 215 H 247 H Calcium Ferritin AST Lactate Dehydrogenase C-Reactive Protein Total Protein Albumin Coronavirus (PCR) 02/06/21 02/07/21 02/07/21 23:40 08:01 11:54 WBC RBC Hgb MCV MCH RDW Plt Count Lymph % (Auto) [place] % (Auto) Lymph # (Auto) Seg Neutrophils % Seg Neuts % (Manual) Lymphocytes % (Manual) Seg Neutrophils # Seg Neutrophils # Man D-Dimer ABG pH ABG pO2 ABG HCO3 ABG O2 Saturation ABG Base Excess ABG Hemoglobin Oxyhemoglobin Sodium Chloride Carbon Dioxide BUN Creatinine Glucose POC Glucose 267 H 233 H 227 H Calcium Ferritin AST Lactate Dehydrogenase C-Reactive Protein Total Protein Albumin Coronavirus (PCR) 02/07/21 02/07/21 02/07/21 15:48 20:58 20:58 WBC RBC Hgb MCV MCH RDW Plt Count Lymph % (Auto) [place] % (Auto) Lymph # (Auto) Seg Neutrophils % Seg Neuts % (Manual) Lymphocytes % (Manual) Seg Neutrophils # Seg Neutrophils # Man D-Dimer ABG pH ABG pO2 ABG HCO3 ABG O2 Saturation ABG Base Excess ABG Hemoglobin Oxyhemoglobin Sodium Chloride Carbon Dioxide 32 H BUN Creatinine 0.5 L 0.5 L Glucose 236 H POC Glucose 257 H Calcium 8.3 L Ferritin AST Lactate Dehydrogenase C-Reactive Protein Total Protein Albumin Coronavirus (PCR) 02/07/21 02/08/21 02/08/21 22:10 04:46 04:46 WBC 4.2 L RBC Hgb 9.7 L MCV 78 L MCH 24 L RDW 17.9 H Plt Count 110 L Lymph % (Auto) [place] % (Auto) Lymph # (Auto) Seg Neutrophils % Seg Neuts % (Manual) Lymphocytes % (Manual) Seg Neutrophils # Seg Neutrophils # Man D-Dimer ABG pH ABG pO2 ABG HCO3 ABG O2 Saturation ABG Base Excess ABG Hemoglobin Oxyhemoglobin Sodium Chloride Carbon Dioxide BUN Creatinine 0.4 L Glucose 220 H POC Glucose 241 H Calcium 8.0 L Ferritin AST Lactate Dehydrogenase C-Reactive Protein Total Protein Albumin Coronavirus (PCR) 02/08/21 02/08/21 02/08/21 08:05 11:36 15:44 WBC RBC Hgb MCV MCH RDW Plt Count Lymph % (Auto) [place] % (Auto) Lymph # (Auto) Seg Neutrophils % Seg Neuts % (Manual) Lymphocytes % (Manual) Seg Neutrophils # Seg Neutrophils # Man D-Dimer ABG pH ABG pO2 ABG HCO3 ABG O2 Saturation ABG Base Excess ABG Hemoglobin Oxyhemoglobin Sodium Chloride Carbon Dioxide BUN Creatinine Glucose POC Glucose 208 H 200 H 149 H Calcium Ferritin AST Lactate Dehydrogenase C-Reactive Protein Total Protein Albumin Coronavirus (PCR) 02/08/21 02/09/21 02/09/21 21:35 04:24 07:39 WBC RBC Hgb MCV MCH RDW Plt Count Lymph % (Auto) [place] % (Auto) Lymph # (Auto) Seg Neutrophils % Seg Neuts % (Manual) Lymphocytes % (Manual) Seg Neutrophils # Seg Neutrophils # Man D-Dimer ABG pH ABG pO2 ABG HCO3 ABG O2 Saturation ABG Base Excess ABG Hemoglobin Oxyhemoglobin Sodium Chloride Carbon Dioxide BUN Creatinine 0.4 L Glucose 205 H POC Glucose 249 H 205 H Calcium 8.1 L Ferritin AST Lactate Dehydrogenase C-Reactive Protein Total Protein Albumin Coronavirus (PCR) 02/09/21 02/09/21 02/09/21 11:53 16:52 21:26 WBC RBC Hgb MCV MCH RDW Plt Count Lymph % (Auto) [place] % (Auto) Lymph # (Auto) Seg Neutrophils % Seg Neuts % (Manual) Lymphocytes % (Manual) Seg Neutrophils # Seg Neutrophils # Man D-Dimer ABG pH ABG pO2 ABG HCO3 ABG O2 Saturation ABG Base Excess ABG Hemoglobin Oxyhemoglobin Sodium Chloride Carbon Dioxide BUN Creatinine Glucose POC Glucose 303 H 164 H 257 H Calcium Ferritin AST Lactate Dehydrogenase C-Reactive Protein Total Protein Albumin Coronavirus (PCR) 02/10/21 02/10/21 02/10/21 09:30 09:38 11:45 WBC RBC Hgb MCV MCH RDW Plt Count Lymph % (Auto) [place] % (Auto) Lymph # (Auto) Seg Neutrophils % Seg Neuts % (Manual) Lymphocytes % (Manual) Seg Neutrophils # Seg Neutrophils # Man D-Dimer ABG pH 7.309 L ABG pO2 71.2 L ABG HCO3 29.1 H ABG O2 Saturation 92.4 L ABG Base Excess ABG Hemoglobin 11.2 L Oxyhemoglobin 90.2 L Sodium Chloride Carbon Dioxide BUN Creatinine Glucose POC Glucose 240 H 257 H Calcium Ferritin AST Lactate Dehydrogenase C-Reactive Protein Total Protein Albumin Coronavirus (PCR) 02/10/21 02/10/21 02/11/21 17:12 21:26 04:50 WBC RBC Hgb MCV 78 L MCH 24 L RDW 20.3 H Plt Count 133 L Lymph % (Auto) [place] % (Auto) Lymph # (Auto) Seg Neutrophils % Seg Neuts % (Manual) Lymphocytes % (Manual) Seg Neutrophils # Seg Neutrophils # Man D-Dimer ABG pH ABG pO2 ABG HCO3 ABG O2 Saturation ABG Base Excess ABG Hemoglobin Oxyhemoglobin Sodium Chloride Carbon Dioxide BUN Creatinine Glucose POC Glucose 178 H 362 H Calcium Ferritin AST Lactate Dehydrogenase C-Reactive Protein Total Protein Albumin Coronavirus (PCR) 02/11/21 02/11/21 02/11/21 08:02 11:52 17:14 WBC RBC Hgb MCV MCH RDW Plt Count Lymph % (Auto) [place] % (Auto) Lymph # (Auto) Seg Neutrophils % Seg Neuts % (Manual) Lymphocytes % (Manual) Seg Neutrophils # Seg Neutrophils # Man D-Dimer ABG pH ABG pO2 ABG HCO3 ABG O2 Saturation ABG Base Excess ABG Hemoglobin Oxyhemoglobin Sodium Chloride Carbon Dioxide BUN Creatinine Glucose POC Glucose 263 H 433 H 212 H Calcium Ferritin AST Lactate Dehydrogenase C-Reactive Protein Total Protein Albumin Coronavirus (PCR) 02/11/21 02/12/21 02/12/21 21:39 08:24 11:21 WBC RBC Hgb MCV MCH RDW Plt Count Lymph % (Auto) [place] % (Auto) Lymph # (Auto) Seg Neutrophils % Seg Neuts % (Manual) Lymphocytes % (Manual) Seg Neutrophils # Seg Neutrophils # Man D-Dimer ABG pH ABG pO2 ABG HCO3 ABG O2 Saturation ABG Base Excess ABG Hemoglobin Oxyhemoglobin Sodium Chloride Carbon Dioxide BUN Creatinine Glucose POC Glucose 248 H 295 H 403 H Calcium Ferritin AST Lactate Dehydrogenase C-Reactive Protein Total Protein Albumin Coronavirus (PCR) 02/12/21 02/13/21 02/13/21 16:29 07:32 12:19 WBC RBC Hgb MCV MCH RDW Plt Count Lymph % (Auto) [place] % (Auto) Lymph # (Auto) Seg Neutrophils % Seg Neuts % (Manual) Lymphocytes % (Manual) Seg Neutrophils # Seg Neutrophils # Man D-Dimer ABG pH ABG pO2 ABG HCO3 ABG O2 Saturation ABG Base Excess ABG Hemoglobin Oxyhemoglobin Sodium Chloride Carbon Dioxide BUN Creatinine Glucose POC Glucose 238 H 299 H 357 H Calcium Ferritin AST Lactate Dehydrogenase C-Reactive Protein Total Protein Albumin Coronavirus (PCR) 02/13/21 02/13/21 02/14/21 16:28 21:45 07:44 WBC RBC Hgb MCV MCH RDW Plt Count Lymph % (Auto) [place] % (Auto) Lymph # (Auto) Seg Neutrophils % Seg Neuts % (Manual) Lymphocytes % (Manual) Seg Neutrophils # Seg Neutrophils # Man D-Dimer ABG pH ABG pO2 ABG HCO3 ABG O2 Saturation ABG Base Excess ABG Hemoglobin Oxyhemoglobin Sodium Chloride Carbon Dioxide BUN Creatinine Glucose POC Glucose 270 H 346 H 234 H Calcium Ferritin AST Lactate Dehydrogenase C-Reactive Protein Total Protein Albumin Coronavirus (PCR) 02/14/21 02/14/21 02/14/21 11:12 16:40 21:27 WBC RBC Hgb MCV MCH RDW Plt Count Lymph % (Auto) [place] % (Auto) Lymph # (Auto) Seg Neutrophils % Seg Neuts % (Manual) Lymphocytes % (Manual) Seg Neutrophils # Seg Neutrophils # Man D-Dimer ABG pH ABG pO2 ABG HCO3 ABG O2 Saturation ABG Base Excess ABG Hemoglobin Oxyhemoglobin Sodium Chloride Carbon Dioxide BUN Creatinine Glucose POC Glucose 294 H 116 H 159 H Calcium Ferritin AST Lactate Dehydrogenase C-Reactive Protein Total Protein Albumin Coronavirus (PCR) 02/15/21 02/15/21 02/15/21 07:58 11:41 16:41 WBC RBC Hgb MCV MCH RDW Plt Count Lymph % (Auto) [place] % (Auto) Lymph # (Auto) Seg Neutrophils % Seg Neuts % (Manual) Lymphocytes % (Manual) Seg Neutrophils # Seg Neutrophils # Man D-Dimer ABG pH ABG pO2 ABG HCO3 ABG O2 Saturation ABG Base Excess ABG Hemoglobin Oxyhemoglobin Sodium Chloride Carbon Dioxide BUN Creatinine Glucose POC Glucose 225 H 325 H 148 H Calcium Ferritin AST Lactate Dehydrogenase C-Reactive Protein Total Protein Albumin Coronavirus (PCR) 02/15/21 02/16/21 02/16/21 22:29 07:55 11:02 WBC RBC Hgb MCV MCH RDW Plt Count Lymph % (Auto) [place] % (Auto) Lymph # (Auto) Seg Neutrophils % Seg Neuts % (Manual) Lymphocytes % (Manual) Seg Neutrophils # Seg Neutrophils # Man D-Dimer ABG pH ABG pO2 ABG HCO3 ABG O2 Saturation ABG Base Excess ABG Hemoglobin Oxyhemoglobin Sodium Chloride Carbon Dioxide BUN Creatinine Glucose POC Glucose 239 H 138 H 337 H Calcium Ferritin AST Lactate Dehydrogenase C-Reactive Protein Total Protein Albumin Coronavirus (PCR) 02/16/21 02/16/21 02/17/21 16:41 21:46 06:53 WBC RBC Hgb MCV 78 L MCH 24 L RDW 18.9 H Plt Count Lymph % (Auto) [place] % (Auto) Lymph # (Auto) Seg Neutrophils % Seg Neuts % (Manual) Lymphocytes % (Manual) Seg Neutrophils # Seg Neutrophils # Man D-Dimer ABG pH ABG pO2 ABG HCO3 ABG O2 Saturation ABG Base Excess ABG Hemoglobin Oxyhemoglobin Sodium Chloride Carbon Dioxide BUN Creatinine Glucose POC Glucose 138 H 286 H Calcium Ferritin AST Lactate Dehydrogenase C-Reactive Protein Total Protein Albumin Coronavirus (PCR) 02/17/21 02/17/21 02/17/21 06:53 07:37 11:12 WBC RBC Hgb MCV MCH RDW Plt Count Lymph % (Auto) [place] % (Auto) Lymph # (Auto) Seg Neutrophils % Seg Neuts % (Manual) Lymphocytes % (Manual) Seg Neutrophils # Seg Neutrophils # Man D-Dimer ABG pH ABG pO2 ABG HCO3 ABG O2 Saturation ABG Base Excess ABG Hemoglobin Oxyhemoglobin Sodium Chloride Carbon Dioxide 31 H BUN 20 H Creatinine 0.4 L Glucose 238 H POC Glucose 251 H 221 H Calcium Ferritin AST Lactate Dehydrogenase C-Reactive Protein Total Protein Albumin Coronavirus (PCR) 02/17/21 02/17/21 02/18/21 16:36 21:21 08:01 WBC RBC Hgb MCV MCH RDW Plt Count Lymph % (Auto) [place] % (Auto) Lymph # (Auto) Seg Neutrophils % Seg Neuts % (Manual) Lymphocytes % (Manual) Seg Neutrophils # Seg Neutrophils # Man D-Dimer ABG pH ABG pO2 ABG HCO3 ABG O2 Saturation ABG Base Excess ABG Hemoglobin Oxyhemoglobin Sodium Chloride Carbon Dioxide BUN Creatinine Glucose POC Glucose 213 H 185 H 280 H Calcium Ferritin AST Lactate Dehydrogenase C-Reactive Protein Total Protein Albumin Coronavirus (PCR) 02/18/21 02/18/21 02/18/21 11:55 15:33 21:48 WBC RBC Hgb MCV MCH RDW Plt Count Lymph % (Auto) [place] % (Auto) Lymph # (Auto) Seg Neutrophils % Seg Neuts % (Manual) Lymphocytes % (Manual) Seg Neutrophils # Seg Neutrophils # Man D-Dimer ABG pH ABG pO2 ABG HCO3 ABG O2 Saturation ABG Base Excess ABG Hemoglobin Oxyhemoglobin Sodium Chloride Carbon Dioxide BUN Creatinine Glucose POC Glucose 303 H 276 H 288 H Calcium Ferritin AST Lactate Dehydrogenase C-Reactive Protein Total Protein Albumin Coronavirus (PCR) 02/19/21 02/19/21 02/19/21 08:22 12:05 17:18 WBC RBC Hgb MCV MCH RDW Plt Count Lymph % (Auto) [place] % (Auto) Lymph # (Auto) Seg Neutrophils % Seg Neuts % (Manual) Lymphocytes % (Manual) Seg Neutrophils # Seg Neutrophils # Man D-Dimer ABG pH ABG pO2 ABG HCO3 ABG O2 Saturation ABG Base Excess ABG Hemoglobin Oxyhemoglobin Sodium Chloride Carbon Dioxide BUN Creatinine Glucose POC Glucose 247 H 274 H 135 H Calcium Ferritin AST Lactate Dehydrogenase C-Reactive Protein Total Protein Albumin Coronavirus (PCR) 02/19/21 02/20/21 02/20/21 21:11 08:00 10:54 WBC RBC Hgb MCV 78 L MCH 24 L RDW 18.4 H Plt Count Lymph % (Auto) 6.6 L [place] % (Auto) Lymph # (Auto) 0.5 L Seg Neutrophils % 89.2 H Seg Neuts % (Manual) Lymphocytes % (Manual) Seg Neutrophils # Seg Neutrophils # Man D-Dimer ABG pH ABG pO2 ABG HCO3 ABG O2 Saturation ABG Base Excess ABG Hemoglobin Oxyhemoglobin Sodium Chloride Carbon Dioxide BUN Creatinine Glucose POC Glucose 341 H 238 H Calcium Ferritin AST Lactate Dehydrogenase C-Reactive Protein Total Protein Albumin Coronavirus (PCR) 02/20/21 02/20/21 02/20/21 10:54 11:16 17:27 WBC RBC Hgb MCV MCH RDW Plt Count Lymph % (Auto) [place] % (Auto) Lymph # (Auto) Seg Neutrophils % Seg Neuts % (Manual) Lymphocytes % (Manual) Seg Neutrophils # Seg Neutrophils # Man D-Dimer ABG pH ABG pO2 ABG HCO3 ABG O2 Saturation ABG Base Excess ABG Hemoglobin Oxyhemoglobin Sodium Chloride 97.8 L Carbon Dioxide BUN 22 H Creatinine 0.5 L Glucose 297 H POC Glucose 305 H 256 H Calcium Ferritin AST Lactate Dehydrogenase C-Reactive Protein Total Protein Albumin Coronavirus (PCR) 02/20/21 02/21/21 02/21/21 21:06 07:36 12:16 WBC RBC Hgb MCV MCH RDW Plt Count Lymph % (Auto) [place] % (Auto) Lymph # (Auto) Seg Neutrophils % Seg Neuts % (Manual) Lymphocytes % (Manual) Seg Neutrophils # Seg Neutrophils # Man D-Dimer ABG pH ABG pO2 ABG HCO3 ABG O2 Saturation ABG Base Excess ABG Hemoglobin Oxyhemoglobin Sodium Chloride Carbon Dioxide BUN Creatinine Glucose POC Glucose 235 H 357 H 229 H Calcium Ferritin AST Lactate Dehydrogenase C-Reactive Protein Total Protein Albumin Coronavirus (PCR) 02/21/21 02/21/21 02/22/21 17:13 21:48 07:43 WBC RBC Hgb MCV MCH RDW Plt Count Lymph % (Auto) [place] % (Auto) Lymph # (Auto) Seg Neutrophils % Seg Neuts % (Manual) Lymphocytes % (Manual) Seg Neutrophils # Seg Neutrophils # Man D-Dimer ABG pH ABG pO2 ABG HCO3 ABG O2 Saturation ABG Base Excess ABG Hemoglobin Oxyhemoglobin Sodium Chloride Carbon Dioxide BUN Creatinine Glucose POC Glucose 289 H 333 H 250 H Calcium Ferritin AST Lactate Dehydrogenase C-Reactive Protein Total Protein Albumin Coronavirus (PCR) 02/22/21 02/22/21 02/22/21 11:10 18:42 22:40 WBC RBC Hgb MCV MCH RDW Plt Count Lymph % (Auto) [place] % (Auto) Lymph # (Auto) Seg Neutrophils % Seg Neuts % (Manual) Lymphocytes % (Manual) Seg Neutrophils # Seg Neutrophils # Man D-Dimer ABG pH ABG pO2 ABG HCO3 ABG O2 Saturation ABG Base Excess ABG Hemoglobin Oxyhemoglobin Sodium Chloride Carbon Dioxide BUN Creatinine Glucose POC Glucose 243 H 283 H 329 H Calcium Ferritin AST Lactate Dehydrogenase C-Reactive Protein Total Protein Albumin Coronavirus (PCR) 02/23/21 02/24/21 02/24/21 07:54 11:16 16:37 WBC RBC Hgb MCV MCH RDW Plt Count Lymph % (Auto) [place] % (Auto) Lymph # (Auto) Seg Neutrophils % Seg Neuts % (Manual) Lymphocytes % (Manual) Seg Neutrophils # Seg Neutrophils # Man D-Dimer ABG pH ABG pO2 ABG HCO3 ABG O2 Saturation ABG Base Excess ABG Hemoglobin Oxyhemoglobin Sodium Chloride Carbon Dioxide BUN Creatinine Glucose POC Glucose 205 H 222 H 252 H Calcium Ferritin AST Lactate Dehydrogenase C-Reactive Protein Total Protein Albumin Coronavirus (PCR) 02/24/21 02/25/21 21:06 07:35 WBC RBC Hgb MCV MCH RDW Plt Count Lymph % (Auto) [place] % (Auto) Lymph # (Auto) Seg Neutrophils % Seg Neuts % (Manual) Lymphocytes % (Manual) Seg Neutrophils # Seg Neutrophils # Man D-Dimer ABG pH ABG pO2 ABG HCO3 ABG O2 Saturation ABG Base Excess ABG Hemoglobin Oxyhemoglobin Sodium Chloride Carbon Dioxide BUN Creatinine Glucose POC Glucose 240 H 188 H Calcium Ferritin AST Lactate Dehydrogenase C-Reactive Protein Total Protein Albumin Coronavirus (PCR)
[2021-02-25 13:54] VITALS: BP 145/78
== END 2021-02-25 17:35 | DRG 177 ==
LOC: ED 15:25 → 3A 23:57 → CC1 01-19 11:12 → IMCU 01-22 15:13 → 3A 01-29 17:25 → IMCU 02-05 12:04 → 3A 02-13 14:57
PROVIDERS: ADMIT Hospitalist; ATTEND Internal Medicine
PROC: 5A09357 Assistance with Respiratory Ventilation, Less than 24 Consecutive Hours, Continuous Positive Airway Pressure (ICD-10-PCS; 2021-01-18)
PROC: 4A033R1 Measurement of Arterial Saturation, Peripheral, Percutaneous Approach (ICD-10-PCS; 2021-01-18)
PROC: XW033E5 Introduction of Remdesivir Anti-infective into Peripheral Vein, Percutaneous Approach, New Technology Group 5 (ICD-10-PCS; 2021-01-18)
PROC: 5A09457 Assistance with Respiratory Ventilation, 24-96 Consecutive Hours, Continuous Positive Airway Pressure (ICD-10-PCS; 2021-01-19)
PROC: 5A0955A Assistance with Respiratory Ventilation, Greater than 96 Consecutive Hours, High Flow/Velocity Cannula (ICD-10-PCS; principal; 2021-01-22)
DX: U07.1 COVID-19 (principal); J96.01 Acute respiratory failure with hypoxia; E87.0 Hyperosmolality and hypernatremia; E87.1 Hypo-osmolality and hyponatremia; J12.82 Pneumonia due to coronavirus disease 2019; R73.9 Hyperglycemia, unspecified; R04.0 Epistaxis; E66.9 Obesity, unspecified; R04.2 Hemoptysis; Z68.35 Body mass index [BMI] 35.0-35.9, adult; D72.829 Elevated white blood cell count, unspecified
CPT/HCPCS: 36415; 36600; 71045; 71046; 71275; 74018; 80048; 80053; 82140; 82565; 82728; 82803; 82805; 82947; 82962; 83615; 83880; 84145; 84484; 85007; 85014; 85018; 85025; 85027; 85379; 85610; 85730; 86140; 87040; 93005; 93970; 94640; 94644; 94660; 96365; 96375; G0378; A6250; J0360; J0456; J0696; J1100; J1170; J1630; J1644; J1650; J1815; J1940; J2060; J2920; J3262; J3486; J3490; J7070; Q9967; U0003